=== PATIENT | female | born 1965 | race Hispanic/Latino ===

== ENCOUNTER 2019-08-07 12:04 | Emergency (ER) | payer OTHER ==
[2019-08-07] MEDS ORDERED: HYDROCODONE/APAP 5/325 MG TAB ONE (14:14)
--- NOTE | 2019-08-07 15:28 | RAD REPORT ---
EXAM DESCRIPTION: RAD - Knee Left 3 View - 08/07/2019 2:48 pm CLINICAL HISTORY: Persistent left knee pain following treadmill injury COMPARISON: None. FINDINGS: No fracture, dislocation or periosteal reaction.Trace joint effusion is seen. No joint spa ce narrowing. No soft tissue abnormality. IMPRESSION: Trace amount of joint effusion. No acute bone finding confirmed. Clinical concerns for internal derangement or occult bony injury could be further assessed with MR im aging.
--- NOTE | 2019-08-07 15:28 | RAD REPORT ---
EXAM DESCRIPTION: RAD - Knee Right 3 View - 08/07/2019 2:48 pm CLINICAL HISTORY: fall, knee injury, injury on a treadmill COMPARISON: No comparisons FINDINGS: No fracture, dislocation or periosteal reaction.No joint effusion seen. No joint space nghia rowing. No foreign body or other soft tissue abnormality. IMPRESSION: Negative right knee. Clinical concerns for internal derangement or occult bony injury could be further assessed with MR im aging.
--- NOTE | 2019-08-07 16:24 | ER ---
Nurse's Notes [facility] Name: Lashon Baca Age: 54 yrs Sex: Female : 1965 Arrival Date: 08/07/2019 Time: 12:16 Bed 12 Private MD: Diagnosis: Internal derangement of knee Presentation: 08/07 12:41 Presenting complaint: Patient states: injured left knee on treadmill last week and fell iw on right knee. Transition of care: patient was not received from another setting of care. Onset of symptoms was August 06, 2019. Risk Assessment: Do you want to hurt yourself or someone else? Patient reports no desire to harm self or others. Initial Sepsis Screen: Does the patient meet any 2 criteria? No. Patient's initial sepsis screen is negative. Does the patient have a suspected source of infection? No. Patient's initial sepsis screen is negative. Care prior to arrival: None. 12:41 Method Of Arrival: Wheelchair iw 12:41 Acuity: KENNETH 4 iw Triage Assessment: 16:00 Injury Description:. iw Historical: - Allergies: 12:42 Cymbalta; iw 12:42 Savella; iw - Immunization history:: Adult Immunizations unknown. - Ebola Screening: : Patient negative for fever greater than or equal to 101.5 degrees Fahrenheit, and additional compatible Ebola Virus Disease symptoms Patient denies exposure to infectious person Patient denies travel to an Ebola-affected area in the 21 days before illness onset No symptoms or risks identified at this time. - Social history:: Smoking status: unknown. Screenin:54 Abuse screen: Denies threats or abuse. Denies injuries from another. Nutritional iw screening: No deficits noted. Tuberculosis screening: No symptoms or risk factors identified. Fall Risk Fall in past 12 months (25 points). Assessment: 12:45 General: Appears in no apparent distress. Behavior is calm, cooperative. Pain: iw Complains of pain in left knee Pain currently is 10 out of 10 on a pain scale. Neuro: Level of Consciousness is awake, alert, obeys commands, Oriented to person, place, time, situation, Moves all extremities. Full function. Cardiovascular: Patient's skin is warm and dry. Respiratory: Respiratory effort is even, unlabored. Derm: Skin is intact, is healthy with good turgor. Musculoskeletal: Range of motion: limited in left knee. 14:54 Reassessment: Patient appears in no apparent distress at this time. Patient and/or iw family updated on plan of care and expected duration. Pain level reassessed. Patient is alert, oriented x 3, equal unlabored respirations, skin warm/dry/pink. Vital Signs: 12:42 BP 100 / 69; Pulse 69; Resp 16; Temp 98.2; Pulse Ox 98% on R/A; Weight 88 kg; Height 5 iw ft. 6 in. (167.64 cm); Pain 9/10; 12:42 Body Mass Index 31.31 (88.00 kg, 167.64 cm) iw ED Course: 12:16 Patient arrived in ED. fj1 12:42 Triage completed. iw 12:45 Arm band placed on. iw 13:23 José Calderon PA is PHCP. m 13:23 Jarod Burentt MD is Attending Physician. m 14:50 XRAY Knee LEFT 3 view In Process Unspecified. EDMS 14:50 Knee Right 3 View XRAY In Process Unspecified. EDMS 14:54 Gwendolyn Blankenship, RN is Primary Nurse. iw 14:54 Patient has correct armband on for positive identification. iw 14:54 No provider procedures requiring assistance completed. Patient did not have IV access iw during this emergency room visit. 16:10 Knee immobilizer applied on left knee. ar5 16:24 Santos Terrazas MD is Referral Physician. jm 16:24 Steven Sargent MD is Referral Physician. [facility] Administered Medications: 14:15 Drug: [place] 5 mg-325 mg 1 tabs Route: PO; mg2 Outcome: 16:23 Discharge ordered by . [facility] 16:50 Discharged to home via wheelchair. iw 16:50 Condition: good 16:50 Discharge instructions given to patient, Instructed on discharge instructions, follow up and referral plans. Demonstrated understanding of instructions, follow-up care, medications, Prescriptions given X 2. 16:51 Patient left the ED. Signatures: Dispatcher [employer] EDMS José Calderon PA PA jmm Williams, Irene, RN RN iw Yogi Grissom RN RN mg2 Rain Benz ar5 Case Sibley fj1
--- NOTE | 2019-08-07 16:24 | EDPHYS ---
Physician Documentation [facility] Name: Lashon Baca Age: 54 yrs Sex: Female : 1965 Arrival Date: 08/07/2019 Time: 12:16 Bed 12 Private MD: ED Physician Jarod Burnett HPI: 08/07 13:23 This 54 yrs old Female presents to ER via Wheelchair with complaints of Knee Injury. jmm 13:23 The patient presents with an injury, pain. Onset: The symptoms/episode began/occurred jmm acutely, 1 week(s) ago. Associated signs and symptoms: Pertinent positives:. The patient has experienced a previous episode. This is a 54 year old female that presents to the ED with complaints of left knee pain which occurred after running on a treadmill. Patient states that she felt a pop. Patient also complains of pain to her right knee which has decreased in intensity of the past week. . Historical: - Allergies: 12:42 Cymbalta; iw 12:42 Savella; iw - Immunization history:: Adult Immunizations unknown. - Ebola Screening: : Patient negative for fever greater than or equal to 101.5 degrees Fahrenheit, and additional compatible Ebola Virus Disease symptoms Patient denies exposure to infectious person Patient denies travel to an Ebola-affected area in the 21 days before illness onset No symptoms or risks identified at this time. - Social history:: Smoking status: unknown. ROS: 13:23 Constitutional: Negative for fever, chills, and weight loss, Cardiovascular: Negative jmm for chest pain, palpitations, and edema, Respiratory: Negative for shortness of breath, cough, wheezing, and pleuritic chest pain. 13:23 MS/extremity: Positive for injury or acute deformity, pain. 13:23 All other systems are negative. Exam: 13:23 Constitutional: This is a well developed, well nourished patient who is awake, alert, jmm and in no acute distress. Head/Face: atraumatic. Eyes: EOMI, no conjunctival erythema appreciated ENT: Moist Mucus Membranes Neck: Trachea midline, Supple Chest/axilla: Normal chest wall appearance and motion. Cardiovascular: Regular rate and rhythm. No edema appreciated Respiratory: Normal respirations, no respiratory distress appreciated Abdomen/GI: Non distended, soft Back: Normal ROM Skin: General appearance color normal 13:23 Musculoskeletal/extremity: left lateral knee pain on palpation, compartments are soft, NVI. No pain on ROM of the right knee, compartments are soft, non toxic in appearance. . 13:23 Skin: Appearance: Color: normal in color. 13:23 Neuro: Orientation: is normal, Mentation: is normal, Memory: is normal. 13:23 Psych: Behavior/mood is pleasant, cooperative. Vital Signs: 12:42 BP 100 / 69; Pulse 69; Resp 16; Temp 98.2; Pulse Ox 98% on R/A; Weight 88 kg; Height 5 iw ft. 6 in. (167.64 cm); Pain 9/10; 12:42 Body Mass Index 31.31 (88.00 kg, 167.64 cm) iw MDM: 13:23 Patient medically screened. [facility] 08/07 13:39 Order name: XRAY Knee LEFT 3 view; Complete Time: 15:54 [facility] 08/07 13:49 Order name: Knee Right 3 View XRAY; Complete Time: 15:54 [facility] 08/07 15:55 Order name: Knee Immobilizer; Complete Time: 16:10 [facility] Administered Medications: 14:15 Drug: [place] 5 mg-325 mg 1 tabs Route: PO; mg2 Disposition: 16:52 Co-signature as Attending Physician, Jarod Burnett MD. rn Disposition: 08/07/19 16:23 Discharged to Home. Impression: Internal derangement of knee. - Condition is Stable. - Discharge Instructions: Knee Pain. - Prescriptions for Ibuprofen 800 mg Oral Tablet - take 1 tablet by ORAL route every 8 hours As needed take with food; 30 tablet. Ultracet 37.5- 325 mg Oral Tablet - take 1 tablet by ORAL route every 6 hours - for up to 5 days; do not exceed 8 tablets per day.; 12 tablet. - Medication Reconciliation Form, Thank You Letter, Antibiotic Education, Prescription Opioid Use form. - Follow up: Private Physician; When: 2 - 3 days; Reason: Recheck today's complaints, Continuance of care, Re-evaluation by your physician. Follow up: Santos Terrazas MD; When: 2 - 3 days; Reason: Recheck today's complaints, Continuance of care, Re-evaluation by your physician. Follow up: Steven Sargent MD; When: 2 - 3 days; Reason: Recheck today's complaints, Continuance of care, Re-evaluation by your physician. Signatures: Dispatcher [employer] EDMS José Calderon PA PA [facility] Gwendolyn Blankenship RN RN iw Jarod Burnett MD MD rn Gardose, Michele, RN RN mg2 Corrections: (The following items were deleted from the chart) 16:24 16:23 08/07/2019 16:23 Discharged to Home. Impression: Internal derangement of knee. [facility] Condition is Stable. Forms are Medication Reconciliation Form, Thank You Letter, Antibiotic Education, Prescription Opioid Use. Follow up: Private Physician; When: 2 - 3 days; Reason: Recheck today's complaints, Continuance of care, Re-evaluation by your physician. [facility] 16:51 16:24 08/07/2019 16:23 Discharged to Home. Impression: Internal derangement of knee. iw Condition is Stable. Discharge Instructions: Knee Pain. Prescriptions for Ibuprofen 800 mg Oral Tablet - take 1 tablet by ORAL route every 8 hours As needed take with food; 30 tablet, Ultracet 37.5-325 mg Oral Tablet - take 1 tablet by ORAL route every 6 hours - for up to 5 days; do not exceed 8 tablets per day.; 12 tablet. and Forms are Medication Reconciliation Form, Thank You Letter, Antibiotic Education, Prescription Opioid Use. Follow up: Private Physician; When: 2 - 3 days; Reason: Recheck today's complaints, Continuance of care, Re-evaluation by your physician. Follow up: Dr. Santos Terrazas; When: 2 - 3 days; Reason: Recheck today's complaints, Continuance of care, Re-evaluation by your physician. Follow up: Steven Sargent; When: 2 - 3 days; Reason: Recheck today's complaints, Continuance of care, Re-evaluation by your physician. [facility]
[2019-08-07 23:54] VITALS: BP 100/69; TEMP 98.2; O2SAT 98
== END 2019-08-07 16:51 | disposition home or self-care (01) ==
LOC: ER 12:04
DX: M23.92 Unspecified internal derangement of left knee (principal); Y93.A1 Activity, exercise machines primarily for cardiorespiratory conditioning; Z88.8 Allergy status to other drugs, medicaments and biological substances
CPT/HCPCS: 99284

== ENCOUNTER 2020-10-21 11:44 | Emergency (ER) | payer OTHER ==
--- OUTSIDE RECORDS SUMMARY | 2020-10-21 11:47 | XMS REPORT | Continuity of Care Document ---
:1965 Author Organization [facility] t Address [address] [place] [address] Care Team Providers Name Role Phone Unavailable Unavailable Unavailable Payers Payer Name Policy Type Policy Number Effective Date Expiration Date S ource Problems This patient has no known problems. Allergies, Adverse Reactions, Alerts Allergy Allergy Status Severity Reaction(s) Onset Inactive Treating Comm ents Source Name Type Date Date Clinician lactose DA Active [place] [facility] 01-31 Gile 00:00: [address] duloxeti DA Active [place] [facility] 01-31 Gile 00:00: [address] Medications This patient has no known medications. Procedures This patient has no known procedures. Encounters Start End Encounter Admission Attending Care Care Encounter Source Date/Time Date/Time Type Type Clinicians Facility Department ID 2020-07-01 2020-07-01 Outpatient [facility] [id number] [facility] 06:05:00 06:05:00 Results Test Description Test Time Test Comments Results Result Comments Source IR Thyroid [facility] 2020-05-28 [facility]:04:[facility] 1965 Sex: F *Patient: KIRILL HANSEN Date/Time05/28/2020 13:30 CSTReason for ExamOther (please specify)ReportEXAMIN ATION:Ultrasound-[place] left thyroid lobe inferior pole nodule FNAUltrasound-guided left thyroid lobe midpole nodule FNAINDICATION: Well-circumscribed 3.2 and 1.9 cm left thyroid lobe isoechoic nodulesCOMPARISON: Outside facility thyroid ultrasound.CONSENT: Informed consent was obtained from the patient after discussing the risks and benefits of the procedure to which the patient acknowledged, agreed, and signed.PROCEDURE IN DETAIL:The patient was placed in the supine position. Preliminary sonographic evaluation of the left neck reveals the well-circumscribed left thyroid inferior/mid pole nodules. The overlying area of the left neck base was prepped and draped in the usual sterile fashion. 1% lidocaine was administered for local anesthetic.The 3.2 cm left thyroid lobe inferior pole nodule was first targeted. Multiple attempts with 25-gauge needles were inserted into the lesion under real-time sonographic guidance for purposes of FNA. A total of 2 passes were performed. All aspirates were given to the pathologist for preparation of slides/specimens, deemed adequate by the pathologist. All hardware was then removed.The 1.9 cm left thyroid lobe midpole nodule was then targeted. Multiple attempts with 25-gauge needles were inserted into the lesion under real-time sonographic guidance for purposes of FNA. A total of 3 passes were performed. All aspirates were given to the pathologist for preparation of slides/specimens, deemed adequate by the pathologist. All hardware was then removed.A final sonographic evaluation throughout the entirety of the left neck base soft tissues reveals no abnormalities, without fluid collections. The patient tolerated the procedure well without complications.IMPRES MARY:1. Technically successful ultrasound-guided left thyroid lobe inferior pole nodule FNA.2. Technically successful ultrasound-guided left thyroid lobe midpole pole nodule FNA.3. Follow-up pathology for final results of the delivered specimens. Final Dictated by: MD Moraima, SamerDictated DT/TM: 05/28/2020 2:59 pmSigned by: MD Moraima, SamerSigned (Electronic Signature): 05/28/2020 3:04 pm IR Thyroid Biopsy 2020-05-28 15:04:14 [facility] 1965 Sex: F *Patient: KIRILL HANSEN Date/Time05/28/2020 13:30 CSTReason for Examleft thyroid noduleReportEXAMINAT ION:Ultrasound-guide d left thyroid lobe inferior pole nodule FNAUltrasound-guided left thyroid lobe midpole nodule FNAINDICATION: Well-circumscribed 3.2 and 1.9 cm left thyroid lobe isoechoic nodulesCOMPARISON: Outside facility thyroid ultrasound.CONSENT: Informed consent was obtained from the patient after discussing the risks and benefits of the procedure to which the patient acknowledged, agreed, and signed.PROCEDURE IN DETAIL:The patient was placed in the supine position. Preliminary sonographic evaluation of the left neck reveals the well-circumscribed left thyroid inferior/mid pole nodules. The overlying area of the left neck base was prepped and draped in the usual sterile fashion. 1% lidocaine was administered for local anesthetic.The 3.2 cm left thyroid lobe inferior pole nodule was first targeted. Multiple attempts with 25-gauge needles were inserted into the lesion under real-time sonographic guidance for purposes of FNA. A total of 2 passes were performed. All aspirates were given to the pathologist for preparation of slides/specimens, deemed adequate by the pathologist. All hardware was then removed.The 1.9 cm left thyroid lobe midpole nodule was then targeted. Multiple attempts with 25-gauge needles were inserted into the lesion under real-time sonographic guidance for purposes of FNA. A total of 3 passes were performed. All aspirates were given to the pathologist for preparation of slides/specimens, deemed adequate by the pathologist. All hardware was then removed.A final sonographic evaluation throughout the entirety of the left neck base soft tissues reveals no abnormalities, without fluid collections. The patient tolerated the procedure well without complications.IMPRES MARY:1. Technically successful ultrasound-guided left thyroid lobe inferior pole nodule FNA.2. Technically successful ultrasound-guided left thyroid lobe midpole pole nodule FNA.3. Follow-up pathology for final results of the delivered specimens. Final Dictated by: MD Moraima, SamerDictated DT/TM: 05/28/2020 2:59 pmSigned by: MD Moraima, SamerSigned (Electronic Signature): 05/28/2020 3:04 pm POC Glucose 2020-05-28 12:43:26 Test Item Value Reference Range Interpretation Comme nts Glucose POC (test code = 107 mg/dL 74-106 H POC Glucose used on critically ill Glucose POC) patients is con sidered "off-label use" and has no t been cleared or approved by the FDA. Alternative testing methods should be considered if t he patient is critically ill. POC [id number] 12:21:41 Test Item Value Reference Range Interpretation Comments Glucose POC (test 105 mg/dL 74-106 POC Glucos e used on code = Glucose POC) critical ly ill patients is considered " off-label use" and has no t been cleared or appr jeannette by the FDA. Altern ative testing methods should be considered i f the patient is crit ically ill. Prothrombin Time and [id number] 11:11:55 Test Item Value Reference Range Interpretation Comments Prothrombin Time (test code = 10.8 seconds 9.0-12.0 Prothrombin Time) INR (test code = INR) 1.0 ratio 0.9-1.2 Partial Thromboplastin [id number] 11:11:55 Test Item Value Reference Range Interpretation Comments Partial Thromboplastin Time 27.8 seconds 24.0-35.0 (test code = Partial Thromboplastin Time) IG [id number] 10:58:55 Test Item Value Reference Range Interpretation Comments IG (test code = IG) 0 % 0-5 IG Abs (test code = IG Abs) 0 x10 N Complete Blood Count with [id number] 10:58:54 Test Item Value Reference Range Interpretation Comments WBC (test code = WBC) 4.5 x10 4.8-10.8 L RBC (test code = RBC) 4.03 x10 4.20-5.50 L Hgb (test code = Hgb) 12.8 g/dL 12.0-16.0 Hct (test code = Hct) 39.1 % 35.0-47.0 MCV (test code = MCV) 97.0 fL 80.0-95.0 H MCHC (test code = MCHC) 32.7 g/dL 31.0-36.0 RDW (test code = RDW) 12.5 % 11.5-14.5 N MCH (test code = MCH) 31.8 pg 26.0-32.0 Platelets (test code = 228 x10 140-440 Platelets) MPV (test code = MPV) 11.0 fL 7.5-11.2 Slide Review (test code Auto N Resu lt created by = Slide Review) GL_SET_SLIDE _REVIEW_A UTO Automated [id number] 10:58:54 Test Item Value Reference Range Interpretation Comments Neutro Auto (test code = Neutro Auto) 60.9 % N Lymph Auto (test code = Lymph Auto) 27.7 % N Bee Auto (test code = Bee Auto) 8.5 % N Eos, Auto (test code = Eos, Auto) 1.8 % N Basophil Auto (test code = Basophil 0.9 % N Auto) Neutro Absolute (test code = Neutro 2.7 x10 2.7-7.3 Absolute) Lymph Absolute (test code = Lymph 1.2 x10 0.8-3.5 Absolute) Bee Absolute (test code = Bee 0.4 x10 0.3-0.9 Absolute) Eos Absolute (test code = Eos 0.1 x10 0.0-0.3 Absolute) Baso Absolute (test code = Baso 0.0 x10 0.0-0.1 Absolute)
[2020-10-21 15:56] LABS: Absolute Lymphocytes (CBC) 1.4 K/uL (0.7-4.9); Basophils % 0.8 % (0-1.3); Hematocrit 39.1 % (36.0-45.0); Lymphocytes % 24.3 % (15.3-44.8); MPV 9.4 fL (7.6-11.3); RBC Red Blood Cell Count 4.16 M/uL (3.86-4.86)
[2020-10-21 16:08] LABS: BUN Blood Urea Nitrogen 15 mg/dL (7-18); Bicarbonate 29 mmol/L (21-32); Glucose Level 98 mg/dL (74-106); Potassium 3.9 mmol/L (3.5-5.1); Sodium Level 139 mmol/L (136-145)
[2020-10-21] MEDS ORDERED: DIPHENHYDRAMINE 50 MG/ML VIAL ONE (16:15)
[2020-10-21] MEDS ORDERED: METHYLPREDNISOLONE 125 MG INJ ONE (16:15)
--- NOTE | 2020-10-21 17:26 | RAD REPORT ---
EXAM DESCRIPTION: CT - Soft Tissue Neck W/Contr - 10/21/2020 5:11 pm CLINICAL HISTORY: difficulty swallowing COMPARISON: No comparisons TECHNIQUE: During dynamic enhancement using 100 milliliters nonionic IV contrast, axial 5 millimeter thick images of the neck were obtained. All CT scans are performed using dose optimization technique as appropriate and may include automated exposure control or mA/KV adjustment according to patient size. FINDINGS: Intracranial portion of the exam is unremarkable. No globe or orbital content abnormality. Mastoid air cells and paranasal sinuses are clear. No pharyngeal mucosal mass or asymmetry. No tonsi l or tongue base abnormality seen. Parapharyngeal fat is normal. Epiglottis, soft palate, valleculae and piriform sinuses without abnormality. No vocal cord or laryngeal abnormality seen. No abnormal lymphadenopathy identified. The parotid and submandibular glands show no suspicious findings. No significant right thyroid findin g. Left lobe has been resected. No vascular abnormality seen. No acute bone finding. IMPRESSION: Contrast enhanced CT soft tissue neck examination shows no significant or suspicious fin ding. The provided history indicates rheumatoid arthritis which can result in esophageal motility and swall owing abnormalities. Follow-up outpatient modified barium swallow may be helpful.
--- NOTE | 2020-10-21 17:39 | ER ---
Nurse's Notes [facility] Name: Lashon Baca Age: 55 yrs Sex: Female : 1965 Arrival Date: 10/21/2020 Time: 11:45 Bed 6 Private MD: Diagnosis: Unspecified allergic reaction Presentation: 10/21 12:21 Chief complaint: Patient states: Had my 1st Moderna Covid vaccine on 10/08/2020, I think ca1 I am having an allergic reaction to it. I have excessive itching all over. The rash and itching started a week after the vaccine.I am having trouble swallowing even liquids, feels like it gets stuck in my throat. I had Thyroid surgery in June 2020 also so I didn't really pay attention when the swallowing problems started last week. Coronavirus screen: Client denies travel out of the [place] in the last 14 days. At this time, the client does not indicate any symptoms associated with coronavirus-19. Ebola Screen: Patient negative for fever greater than or equal to 101.5 degrees Fahrenheit, and additional compatible Ebola Virus Disease symptoms Patient denies exposure to infectious person. Patient denies travel to an Ebola-affected area in the 21 days before illness onset. No symptoms or risks identified at this time. Initial Sepsis Screen: Does the patient meet any 2 criteria? No. Patient's initial sepsis screen is negative. Does the patient have a suspected source of infection? No. Patient's initial sepsis screen is negative. Risk Assessment: Do you want to hurt yourself or someone else? Patient reports no desire to harm self or others. Onset of symptoms was October 21, 2020. 12:21 Method Of Arrival: Ambulatory ca1 12:21 Acuity: KENNETH 3 ca1 Historical: - Allergies: 12:27 Cymbalta; ca1 12:27 Savella; ca1 - PMHx: 12:27 Rheumatoid Arthritis; Fibromyalgia; Diabetes - NIDDM; Bipolar disorder; ca1 - PSHx: 12:27 Thyroidectomy; ; Hysterectomy; Cholecystectomy; ca1 - Immunization history:: Flu vaccine is not up to date. - Social history:: Smoking status: Patient/guardian denies using tobacco, the patient reports quitting approximately 30 years ago. Screenin:30 Abuse screen: Denies threats or abuse. Denies injuries from another. Nutritional ss screening: No deficits noted. Tuberculosis screening: Never had TB. Fall Risk None identified. Assessment: 15:30 General: Appears in no apparent distress. comfortable, Behavior is calm, cooperative, ss Denies fever, feeling ill, fatigue, chills. Pain: Denies pain. Neuro: Level of Consciousness is awake, alert, obeys commands, Oriented to person, place, time, situation. Cardiovascular: Pulses are palpable in right radial artery and left radial artery. Respiratory: Airway is patent Trachea midline Respiratory effort is even, unlabored, Respiratory pattern is regular, symmetrical, Breath sounds are clear bilaterally. Denies cough, shortness of breath. GI: Patient currently denies diarrhea, nausea, vomiting. : No signs and/or symptoms were reported regarding the genitourinary system. EENT: Nares are clear Oral mucosa is moist. Throat is clear. Derm: Skin is intact, is healthy with good turgor, Skin is dry, Skin is pink, warm \\T\\ dry. normal. Derm: Reports itching, "all over that began 1 week after COVID shot". Musculoskeletal: Circulation, motion, and sensation intact. Range of motion: intact in all extremities, Swelling absent. 16:56 Reassessment: Patient appears in no apparent distress at this time. Patient and/or ss family updated on plan of care and expected duration. Pain level reassessed. Patient is alert, oriented x 3, equal unlabored respirations, skin warm/dry/pink. Pt reports that her itching has greatly improved. Awaiting on patient to go to CT scan Patient states feeling better. Patient states symptoms have improved. 17:17 Reassessment: Pt is back from CT at this time. ss Vital Signs: 12:21 BP 131 / 95; Pulse 78; Resp 18 S; Temp 98.7(TE); Pulse Ox 99% on R/A; Weight 89.36 kg ca1 (R); Height 5 ft. 5 in. (165.10 cm) (R); Pain 0/10; 18:08 BP 127 / 81; Pulse 68; Resp 16; Pulse Ox 100% on R/A; ss 12:21 Body Mass Index 32.78 (89.36 kg, 165.10 cm) ca1 ED Course: 11:45 Patient arrived in ED. am2 12:26 Triage completed. ca1 12:27 Arm band placed on right wrist. ca1 15:24 Grayson Mosher PA is PHCP. jr8 15:24 Jarod Burnett MD is Attending Physician. jr8 15:28 Mya Shultz, ETELVINA is Primary Nurse. ss 15:30 Patient has correct armband on for positive identification. Bed in low position. Call ss light in reach. Side rails up X 1. 15:50 Basic Metabolic Panel Sent. em1 15:50 CBC with Diff Sent. em1 15:50 Initial lab(s) drawn, by me, sent to lab. Inserted saline lock: 20 gauge in right em1 antecubital area, using aseptic technique. Blood collected. 17:11 CT Soft Tissue Neck W/contr In Process Unspecified. EDMS 18:07 No provider procedures requiring assistance completed. IV discontinued, intact, ss bleeding controlled, No redness/swelling at site. Pressure dressing applied. Administered Medications: 15:50 Drug: Benadryl (diphenhydrAMINE) 25 mg Route: IVP; Site: right antecubital; ss 16:56 Follow up: Response: No adverse reaction; Marked relief of symptoms; Marked relief of ss symptoms, itching decreased 15:52 Drug: SOLU-Medrol 125 mg Route: IVP; Site: right antecubital; ss 16:56 Follow up: Response: No adverse reaction; Marked relief of symptoms; Marked relief of ss symptoms, itching decreased Outcome: 17:39 Discharge ordered by . jr8 18:07 Discharged to home ambulatory. ss 18:07 Condition: good 18:07 Discharge instructions given to patient, Instructed on discharge instructions, follow up and referral plans. medication usage, Demonstrated understanding of instructions, follow-up care, medications, Prescriptions given X 1. 18:11 Patient left the ED. ss Signatures: Dispatcher [employer] EDMS Beck Ramon em1 Mya Shultz, ETELVINA RN ss Grayson Mosher PA PA jr8 Quyen Perez 2 Sarah Buitrago RN RN ca1
--- NOTE | 2020-10-21 17:39 | EDPHYS ---
Physician Documentation [facility] Name: Lashon Baca Age: 55 yrs Sex: Female : 1965 Arrival Date: 10/21/2020 Time: 11:45 Bed 6 Private MD: ED Physician Jarod Burnett HPI: 10/21 16:11 This 55 yrs old Female presents to ER via Ambulatory with complaints of jr8 Allergic Reaction. 16:11 Onset: The symptoms/episode began/occurred gradually, 2 week(s) ago. Associated signs jr8 and symptoms: Pertinent positives: itching and difficulty swallowing . Possible causes: The patient has no known obvious cause for the symptoms. Severity of symptoms: At their worst the symptoms were mild in the emergency department the symptoms are unchanged. The patient has not experienced similar symptoms in the past. The patient has not recently seen a physician. Patient stated that she was vaccinated 3 weeks ago for COVID. A week after that stated that she started to have itching and felt herself having trouble swallowing. Historical: - Allergies: 12:27 Cymbalta; ca1 12:27 Savella; ca1 - PMHx: 12:27 Rheumatoid Arthritis; Fibromyalgia; Diabetes - NIDDM; Bipolar disorder; ca1 - PSHx: 12:27 Thyroidectomy; ; Hysterectomy; Cholecystectomy; ca1 - Immunization history:: Flu vaccine is not up to date. - Social history:: Smoking status: Patient/guardian denies using tobacco, the patient reports quitting approximately 30 years ago. ROS: 16:11 Eyes: Negative for injury, pain, redness, and discharge, ENT: Negative for injury, jr8 pain, and discharge. Positive for dysphagia Neck: Negative for injury, pain, and swelling, Cardiovascular: Negative for chest pain, palpitations, and edema, Respiratory: Negative for shortness of breath, cough, wheezing, and pleuritic chest pain, Abdomen/GI: Negative for abdominal pain, nausea, vomiting, diarrhea, and constipation, Back: Negative for injury and pain, MS/Extremity: Negative for injury and deformity, Neuro: Negative for headache, weakness, numbness, tingling, and seizure. 16:11 Skin: Positive for rash. Exam: 16:11 Eyes: Pupils equal round and reactive to light, extra-ocular motions intact. Lids and jr8 lashes normal. Conjunctiva and sclera are non-icteric and not injected. Cornea within normal limits. Periorbital areas with no swelling, redness, or edema. ENT: Nares patent. No nasal discharge, no septal abnormalities noted. Tympanic membranes are normal and external auditory canals are clear. Oropharynx with no redness, swelling, or masses, exudates, or evidence of obstruction, uvula midline. Mucous membranes moist. Neck: Trachea midline, no thyromegaly or masses palpated, and no cervical lymphadenopathy. Supple, full range of motion without nuchal rigidity, or vertebral point tenderness. No Meningismus. previous thyroidectomy scar noted Cardiovascular: Regular rate and rhythm with a normal S1 and S2. No gallops, murmurs, or rubs. Normal PMI, no JVD. No pulse deficits. Respiratory: Lungs have equal breath sounds bilaterally, clear to auscultation and percussion. No rales, rhonchi or wheezes noted. No increased work of breathing, no retractions or nasal flaring. Abdomen/GI: Soft, non-tender, with normal bowel sounds. No distension or tympany. No guarding or rebound. No evidence of tenderness throughout. Back: No spinal tenderness. No costovertebral tenderness. Full range of motion. Skin: Warm, dry with normal turgor. Normal color with no rashes, no lesions, and no evidence of cellulitis. Excoriated sanchez noted on arms MS/ Extremity: Pulses equal, no cyanosis. Neurovascular intact. Full, normal range of motion. Neuro: Awake and alert, GCS 15, oriented to person, place, time, and situation. Cranial nerves II-XII grossly intact. Motor strength 5/5 in all extremities. Sensory grossly intact. Cerebellar exam normal. Normal gait. Vital Signs: 12:21 BP 131 / 95; Pulse 78; Resp 18 S; Temp 98.7(TE); Pulse Ox 99% on R/A; Weight 89.36 kg ca1 (R); Height 5 ft. 5 in. (165.10 cm) (R); Pain 0/10; 18:08 BP 127 / 81; Pulse 68; Resp 16; Pulse Ox 100% on R/A; ss 12:21 Body Mass Index 32.78 (89.36 kg, 165.10 cm) ca1 MDM: 15:25 Patient medically screened. [facility] 17:34 Data reviewed: vital signs, nurses notes, lab test result(s), radiologic studies, CT jr8 scan. Data interpreted: Pulse oximetry: on room air is 99 %. Interpretation: normal. Counseling: I had a detailed discussion with the patient and/or guardian regarding: the historical points, exam findings, and any diagnostic results supporting the discharge/admit diagnosis, lab results, radiology results, the need for outpatient follow up, a family practitioner, to return to the emergency department if symptoms worsen or persist or if there are any questions or concerns that arise at home. Response to treatment: the patient's symptoms have mildly improved after treatment. 10/21 15:37 Order name: CBC with Diff; Complete Time: 16:00 jr8 10/21 15:37 Order name: Basic Metabolic Panel; Complete Time: 16:09 jr8 10/21 15:37 Order name: CT Soft Tissue Neck W/contr; Complete Time: 17:34 jr8 10/21 15:37 Order name: IV; Complete Time: 15:50 jr8 Administered Medications: 15:50 Drug: Benadryl (diphenhydrAMINE) 25 mg Route: IVP; Site: right antecubital; ss 16:56 Follow up: Response: No adverse reaction; Marked relief of symptoms; Marked relief of ss symptoms, itching decreased 15:52 Drug: SOLU-Medrol 125 mg Route: IVP; Site: right antecubital; ss 16:56 Follow up: Response: No adverse reaction; Marked relief of symptoms; Marked relief of ss symptoms, itching decreased Disposition: 18:28 Co-signature as Attending Physician, Jarod Burnett MD. rn Disposition: 10/21/20 17:39 Discharged to Home. Impression: Unspecified allergic reaction. - Condition is Stable. - Discharge Instructions: Anaphylactic Reaction, Adult. - Prescriptions for Prednisone 20 mg Oral Tablet - take 1 tablet by ORAL route once daily for 5 days; 5 tablet. - Medication Reconciliation Form, Thank You Letter, Antibiotic Education, Prescription Opioid Use form. - Follow up: Private Physician; When: 2 - 3 days; Reason: Recheck today's complaints, Continuance of care, Re-evaluation by your physician. - Problem is new. - Symptoms have improved. Signatures: Dispatcher [employer] EDMS Jarod Burnett MD MD rn Smirch, Shelby, RN RN Grayson Wheat PA PA jr8 Sarah Buitrago RN RN ca1 Corrections: (The following items were deleted from the chart) 18:11 17:39 10/21/2020 17:39 Discharged to Home. Impression: Unspecified allergic reaction. ss Condition is Stable. Forms are Medication Reconciliation Form, Thank You Letter, Antibiotic Education, Prescription Opioid Use. Follow up: Private Physician; When: 2 - 3 days; Reason: Recheck today's complaints, Continuance of care, Re-evaluation by your physician. Problem is new. Symptoms have improved. jr8
[2020-10-21 22:58] VITALS: BP 131/95; TEMP 98.7; O2SAT 99
== END 2020-10-21 18:11 | disposition home or self-care (01) ==
LOC: ER 11:44
DX: R21 Rash and other nonspecific skin eruption (principal); Z88.8 Allergy status to other drugs, medicaments and biological substances
CPT/HCPCS: 85025; 80048; 36415; 70491; Q9967; J1200; J2930; 96374; 96375; 99284

== ENCOUNTER 2021-03-15 12:54 | Emergency (ER) | payer OTHER ==
--- OUTSIDE RECORDS SUMMARY | 2021-03-15 12:57 | XMS REPORT | Continuity of Care Document ---
:1965 Author Organization [facility] t Address [address] [place] [address] Care Team Providers Name Role Phone Saúl SNOW, Toñito Dickson Primary Care Physician [phone] Adina SNOW, T Attending Clinician Payers Payer Name Policy Type Policy Number Effective Date Expiration Date S benjie [place] [id number] [address] [facility] - 00:00:00 [place] [facility] MEDICAREWELLMED/ [facility] DUAL COMP HMO D [id number]/2020-PresentMedi care Adv HMO Problems Condition Condition Condition Status Onset Resolution Last Treating Co mments Source Name Details Category Date Date Treatment Clinician Date No known No known Disease Unive rs active active ity of problems problems [facility] Allergies, Adverse Reactions, Alerts Allergy Allergy Status Severity Reaction(s) Onset Inactive Treating Comm ents Source Name Type Date Date Clinician Duloxeti Drug Active Rash Univers ne Hcl Allergy 7-20 ity of 00:00: [address] Edoxaban Drug Active Rash Univers Tosylate Allergy 7-20 ity of 00:00: [address] Milnacip Drug Active Other - See Uni vers ran Hcl Allergy comments 02-02 ity of 00:00: [facility] lactose DA Active [facility] 01-31 [place] 00:00: [address] duloxeti DA Active [place] [facility] ne 01-[facility] [place] 00:00: [address] Social History Social Habit Start Date Stop Date Quantity Comments Source Exposure to Not sure [facility] SARS-CoV-2 (event) [facility] Cigarettes smoked 2021-02-02 2021-02-02 Univers ity of current (pack per 00:00:00 00:00:00 [facility] ) - Reported Branch Cigarette 2021-02-02 2021-02-02 University of pack-years 00:00:00 00:00:00 [facility] Tobacco use and 2021-02-02 2021-02-02 Never used Universit y of exposure 00:00:00 00:00:00 [facility] Alcohol intake 2021-02-02 2021-02-02 Current drinker Unive rsity of 00:00:00 00:00:00 of alcohol [facility] (finding) [place] Alcohol Comment 2021-02-02 2021-02-02 socially Universit y of 00:00:00 00:00:00 [facility] History of tobacco 1993-02-02 Cigarette Smoker University of use 00:00:00 [facility] Sex Assigned At [birth year] Universit y of 00:00:00 00:00:00 [facility] Smoking Status Start Date Stop Date Source Former smoker 2021-02-02 00:00:00 2021-02-02 00:00:00 Universi ty of [facility] Medications Ordered Filled Start Stop Current Ordering Indication Dosage Frequency Signature Comments Components Source Medication Medication Date Date Medication? Clinician (SIG) Name Name simvastatin Yes [id number] 40mg Take 1 Univers 40 mg 8-24 tablet by ity of tablet 00:00: mouth at [place] 00 bedtime. Medical Branch metformin Yes [id number] TAKE 1 U nivers ER 500 mg 8-03 TABLET BY ity o f 24 hr 00:00: MOUTH [place] tablet 00 EVERY DAY Medical WITH THE Branch EVENING MEAL hydrOXYzine Yes 25mg Take 25 mg Univers 25 mg 7-20 by mouth ity of tablet 14:33: every 8 [place] 41 (eight) Medical hours as Branch needed for Anxiety. lamoTRIgine Yes 200mg Take 200 U nivers 200 mg 5-25 mg by ity of tablet 00:00: mouth at [place] 00 bedtime. Medical Branch QUEtiapine Yes 100mg Take 100 Un david 100 mg 5-25 mg by ity of tablet 00:00: mouth at [place] 00 bedtime. Medical Branch SERTraline Yes 50mg Take 50 mg U nivers 50 mg 5-25 by mouth ity of tablet 00:00: at [place] 00 bedtime. Medical Branch oxyCODONE-a Yes TAKE 1 Univ ers cetaminophe 5-19 TABLET BY ity of n 5-325 mg 00:00: MOUTH [place] per tablet 00 EVERY 4 Medica l HOURS Branch NEEDED FOR PAIN Vital Signs Vital Name Observation Time Observation Value Comments Source Systolic blood 2021-03-10 19:42:00 129 mm[Hg] Univer sity of pressure [facility] Diastolic blood 2021-03-10 19:42:00 81 mm[Hg] [facility] [place] Heart rate 2021-03-10 19:42:00 79 /min [facility] Body temperature 2021-03-10 19:42:00 36.17 Ashlee [facility] Respiratory rate 2021-03-10 19:42:00 18 /min [facility] Body height 2021-03-10 19:42:00 165.1 cm [facility] Body weight 2021-03-10 19:42:00 89.177 kg [facility] BMI 2021-03-10 19:42:00 32.72 kg/m2 [facility] Oxygen saturation in 2021-03-10 19:42:00 98 /min [facility] Arterial blood by [facility] Pulse oximetry Branch Procedures This patient has no known procedures. Encounters Start End Encounter Admission Attending Care Care Encounter Source Date/Time Date/Time Type Type Clinicians Facility Department ID 2021-03-10 2021-03-10 Office MALATHI Holden [id number] [facility] 14:29:05 14:49:05 Visit Leela Monique [id number] [facility] taylor Leija [id number] Alissa Cardoso [id number] [place] [id number] [facility] 2020-07-01 2020-07-01 Outpatient [facility] [id number] [facility] 06:05:00 06:05:00 Results Test Description Test Time Test Comments Results Result Comments Source IR Thyroid Biopsy 2020-05-28 15:04:14 [facility] 1965 Sex: F [...] 3:04 pm IR Thyroid Biopsy 2020-05-28 15:04:14 [facility] 1965 Sex: F [...] t he patient is critically ill. POC [id number] 12:21:41 Test Item Value Reference Range Interpretation Comments Glucose POC (test 105 mg/dL 74-106 POC Glucos e used on code = Glucose POC) critical ly ill patients is considered " off-label use" and has no t been cleared or appr jeannette by the FDA. Altern ative testing methods should be considered i f the patient is crit ically ill. Prothrombin Time and [id number] 11:11:55 Test Item Value Reference Range Interpretation Comments Prothrombin Time (test code = 10.8 seconds 9.0-12.0 Prothrombin Time) INR (test code = INR) 1.0 ratio 0.9-1.2 Partial Thromboplastin [id number] 11:11:55 Test Item Value Reference Range Interpretation Comments Partial Thromboplastin Time 27.8 seconds 24.0-35.0 (test code = Partial Thromboplastin Time) IG [id number] 10:58:55 Test Item Value Reference Range Interpretation Comments IG (test code = IG) 0 % 0-5 IG Abs (test code = IG Abs) 0 x10 N Complete Blood Count with [id number] 10:58:54 Test Item Value Reference Range Interpretation [...] = Slide Review) GL_SET_SLIDE _REVIEW_A UTO Automated [id number] 10:58:54 Test Item Value Reference Range Interpretation Comments Neutro Auto (test code = Neutro Auto) 60.9 % N Lymph Auto (test code = Lymph Auto) 27.7 % N [place] Auto (test code = [place] Auto) 8.5 % N Eos, Auto (test code = Eos, Auto) 1.8 % N Basophil Auto (test code = Basophil 0.9 % N Auto) Neutro Absolute (test code = Neutro 2.7 x10 2.7-7.3 Absolute) Lymph Absolute (test code = Lymph 1.2 x10 0.8-3.5 Absolute) [place] Absolute (test code = [place] 0.4 x10 0.3-0.9 Absolute) Eos Absolute (test code = Eos 0.1 x10 0.0-0.3 Absolute) Baso Absolute (test code = Baso 0.0 x10 0.0-0.1 Absolute)
--- NOTE | 2021-03-15 13:24 | EDPHYS ---
Physician Documentation [facility] Name: Lashon Baca Age: 56 yrs Sex: Female : 1965 Arrival Date: 03/15/2021 Time: 12:55 Bed Waiting Private MD: ED Physician Nii Bronson HPI: 03/15 14:26 This 56 yrs old Female presents to ER via Ambulatory with complaints of Bee kb Sting. 14:26 The patient was bitten on the right tricep, by a wasp, in an unprovoked manner, kb outdoors. Onset: The symptoms/episode began/occurred 4 day(s) ago. Animal information: wasp. Secondary to the bite the patient reports erythema, pain, swelling, warmth. Associated signs and symptoms: Pertinent positives: erythema at site, swelling at site. Severity of symptoms: At their worst the symptoms were mild, in the emergency department the symptoms are unchanged. The patient has not experienced similar symptoms in the past. The patient has not recently seen a physician. Historical: - Allergies: 13:22 Cymbalta; hb 13:22 Savella; hb - PMHx: 13:22 Diabetes - NIDDM; Bipolar disorder; Fibromyalgia; Rheumatoid Arthritis; hb - Immunization history:: Adult Immunizations up to date. - Social history:: Smoking status: Patient denies any tobacco usage or history of. ROS: 14:25 Constitutional: Negative for fever, chills, and weight loss. kb 14:25 Skin: Positive for erythema, swelling, of the right tricep. 14:25 All other systems are negative. Exam: 14:25 Constitutional: This is a well developed, well nourished patient who is awake, alert, kb and in no acute distress. Head/Face: Normocephalic, atraumatic. ENT: Moist Mucous membranes Respiratory: Respirations even and unlabored. No increased work of breathing, no retractions or nasal flaring. MS/ Extremity: Pulses equal, no cyanosis. Neurovascular intact. Full, normal range of motion. Neuro: Awake and alert, GCS 15, oriented to person, place, time, and situation. Moves all extremities. Normal gait. Psych: Awake, alert, with orientation to person, place and time. Behavior, mood, and affect are within normal limits. 14:25 Skin: cellulitis, that is mild, on the right tricep. Vital Signs: 13:21 BP 136 / 85; Pulse 89; Resp 16; Temp 97.4; Pulse Ox 96% ; Pain 7/10; hb MDM: 13:22 Data reviewed: vital signs, nurses notes. Data interpreted: Pulse oximetry: on room air kb is 96 %. Interpretation: normal. Counseling: I had a detailed discussion with the patient and/or guardian regarding: the historical points, exam findings, and any diagnostic results supporting the discharge/admit diagnosis, the need for outpatient follow up, a family practitioner, to return to the emergency department if symptoms worsen or persist or if there are any questions or concerns that arise at home. 13:23 Patient medically screened. kb Administered Medications: No medications were administered Disposition: 03/16 07:46 Co-signature as Attending Physician, Nii Bronson MD I agree with the assessment and gemma plan of care. Disposition Summary: 03/15/21 13:23 Discharge Ordered Location: Home kb Condition: Stable kb Diagnosis - Local infection of the skin and subcutaneous tissue, unspecified kb Followup: kb - With: Emergency Department - When: As needed - Reason: Worsening of condition Followup: kb - With: Private Physician - When: 2 - 3 days - Reason: Recheck today's complaints, Continuance of care, Re-evaluation by your physician Discharge Instructions: - Discharge Summary Sheet kb - Insect Bite, Adult, [id number] kb - Cellulitis, Adult, [id number] kb Forms: - Medication Reconciliation Form kb - Thank You Letter kb - Antibiotic Education kb - Prescription Opioid Use kb Prescriptions: - Bactrim DS 800-160 mg Oral Tablet - take 1 tablet by ORAL route every 12 hours for 10 days; 20 tablet; Refills: 0, kb Product Selection Permitted Signatures: Rosalinda Jiménez, ANUMC MABLE-Nii Mosquera MD MD cha Baxter, Heather, RN RN hb
--- NOTE | 2021-03-15 13:24 | ER ---
Nurse's Notes [facility] Name: Lashon Baca Age: 56 yrs Sex: Female : 1965 Arrival Date: 03/15/2021 Time: 12:55 Bed Waiting Private MD: Diagnosis: Local infection of the skin and subcutaneous tissue, unspecified Presentation: 03/15 13:21 Chief complaint: Stung by unknown insect on right upper arm 3 days ago, c/o pain 7/10. hb Coronavirus screen: At this time, the client does not indicate any symptoms associated with coronavirus-19. Ebola Screen: No symptoms or risks identified at this time. Risk Assessment: Do you want to hurt yourself or someone else? Patient reports no desire to harm self or others. Onset of symptoms was March 12, 2021. 13:21 Method Of Arrival: Ambulatory hb 13:21 Acuity: KENNETH 4 hb Historical: - Allergies: 13:22 Cymbalta; hb 13:22 Savella; hb - PMHx: 13:22 Diabetes - NIDDM; Bipolar disorder; Fibromyalgia; Rheumatoid Arthritis; hb - Immunization history:: Adult Immunizations up to date. - Social history:: Smoking status: Patient denies any tobacco usage or history of. Screenin:23 Abuse screen: Denies threats or abuse. Denies injuries from another. Nutritional hb screening: No deficits noted. Tuberculosis screening: No symptoms or risk factors identified. Fall Risk None identified. Assessment: 13:23 General: Appears in no apparent distress. Behavior is calm, cooperative. Pain: Pain hb currently is 7 out of 10 on a pain scale. Neuro: Level of Consciousness is awake, alert, obeys commands, Oriented to person, place, time, situation. Cardiovascular: Patient's skin is warm and dry. Respiratory: Respiratory effort is even, unlabored, Respiratory pattern is regular, agonal. GI: No signs and/or symptoms were reported involving the gastrointestinal system. : No signs and/or symptoms were reported regarding the genitourinary system. EENT: No signs and/or symptoms were reported regarding the EENT system. Derm: redness and mild swelling noted to right upper arm. Musculoskeletal: No signs and/or symptoms reported regarding the musculoskeletal system. Vital Signs: 13:21 BP 136 / 85; Pulse 89; Resp 16; Temp 97.4; Pulse Ox 96% ; Pain 7/10; hb ED Course: 12:55 Patient arrived in ED. am2 13:22 Triage completed. hb 13:22 Rosalinda Jiménez FNP-C [facility]. kb 13:22 Nii Bronson MD is Attending Physician. kb 13:22 Arm band placed on. hb 13:23 Patient has correct armband on for positive identification. hb 13:23 No provider procedures requiring assistance completed. Patient did not have IV access hb during this emergency room visit. Administered Medications: No medications were administered Outcome: 13:23 Discharge ordered by . kb 15:32 Patient left the ED. kb Signatures: Rosalinda Jiménez FNP-C [employer]ING WINDER-Luisb Kaylin Bergman RN RN Quyen Lynn am2
[2021-03-15 15:39] VITALS: BP 136/85; TEMP 97.4; O2SAT 96
== END 2021-03-15 15:32 | disposition home or self-care (01) ==
LOC: ER 12:54
DX: L03.113 Cellulitis of right upper limb (principal); Z88.8 Allergy status to other drugs, medicaments and biological substances
CPT/HCPCS: 99281

== ENCOUNTER 2021-03-17 13:09 | Emergency (ER) | payer OTHER ==
--- OUTSIDE RECORDS SUMMARY | 2021-03-17 13:12 | XMS REPORT | Continuity of Care Document ---
:1965 Author Organization [facility] t Address [address] [place] [address] Care Team Providers Name Role Phone Saúl SNOW, Toñito Dickson Primary Care Physician Adina SNOW, T Attending Clinician Gavin SNOW Attending Clinician Payers Payer Name Policy Type Policy Number Effective Date Expiration Date S [place] [id number] 2020 [facility] - 00:00:00 [facility] DUAL COMP HMO D [id number]/2020-PresentMedi care Adv HMO Problems Condition Condition Condition Status Onset Resolution Last Treating Co mments Source Name Details Category Date Date Treatment Clinician Date No known No known Disease Unive rs active active ity of problems problems [facility] Allergies, Adverse Reactions, Alerts Allergy Allergy Status Severity Reaction(s) Onset Inactive Treating Comm ents Source Name Type Date Date Clinician Duloxeti Drug Active Rash 2020-0 Univers ne Hcl Allergy 7-20 ity of 00:00: [address] Edoxaban Drug Active Rash 2020-0 Univers Tosylate Allergy 7-20 ity of 00:00: [place] 00 [facility] Milnacip Drug Active Other - See Uni vers ran Hcl Allergy comments 02-02 ity of 00:00: [facility] lactose DA Active U [facility] 01-31 [facility] 00:00: [address] duloxeti DA Active [place] [facility] ne 01-31 [facility] 00:00: [address] Social History Social Habit Start Date Stop Date Quantity Comments Source Exposure to Not sure [facility] SARS-CoV-2 (event) [facility] Cigarettes smoked 2021-02-02 2021-02-02 Univers ity of current (pack per 00:00:00 00:00:00 [facility] ) - Reported Branch Cigarette 2021-02-02 2021-02-02 University of pack-years 00:00:00 00:00:00 [facility] Tobacco use and 2021-02-02 2021-02-02 Never used Universit y of exposure 00:00:00 00:00:00 [facility] Alcohol intake 2021-02-02 2021-02-02 Current drinker Unive rsity of 00:00:00 00:00:00 of alcohol [facility] (finding) [place] Alcohol Comment 2021-02-02 2021-02-02 socially Universit y of 00:00:00 00:00:00 [facility] History of tobacco 1993-02-02 Cigarette Smoker University of use 00:00:00 [facility] Sex Ass[birth year] At [birth year] Universit y of 00:00:00 00:00:00 [facility] Smoking Status Start Date Stop Date Source Former smoker 2021-02-02 00:00:00 2021-02-02 00:00:00 Universi ty of [facility] Medications Ordered Filled Start Stop Current Ordering Indication Dosage Frequency Signature Comments Components Source Medication Medication Date Date Medication? Clinician (SIG) Name Name simvastatin Yes [id number] 40mg Take 1 Univers 40 mg 8-24 tablet by ity of tablet 00:00: mouth at [place] 00 bedtime. Medical Branch metformin Yes [id number] TAKE 1 U nivers ER 500 mg 8-03 TABLET BY ity o f 24 hr 00:00: MOUTH [place] tablet 00 EVERY DAY Medical WITH THE Branch EVENING MEAL metformin Yes [id number] TAKE 1 U nivers ER 500 mg 803 TABLET BY ity o f 24 hr 00:00: MOUTH [place] tablet 00 EVERY DAY Medical WITH THE Branch EVENING MEAL hydrOXYzine Yes 25mg Take 25 mg Univers 25 mg 7-20 by mouth ity of tablet 14:33: every 8 [place] 41 (eight) Medical hours as Branch needed for Anxiety. hydrOXYzine 0 Yes 25mg Take 25 mg Univers 25 mg 7-20 by mouth ity of tablet 14:33: every 8 [place] 41 (eight) Medical hours as Branch needed for Anxiety. lamoTRIgine Yes 200mg Take 200 U nivers 200 mg 5-25 mg by ity of tablet 00:00: mouth at [place] [address] bedtime. Medical Branch QUEtiapine Yes 100mg Take 100 Un david 100 mg 5-25 mg by ity of tablet 00:00: mouth at [place] [address] bedtime. Medical Branch SERTraline Yes 50mg Take 50 mg U nivers 50 mg 5-25 by mouth ity of tablet 00:00: at [place] [address] bedtime. Medical Branch lamoTRIgine Yes 200mg Take 200 U nivers 200 mg 5-25 mg by ity of tablet 00:00: mouth at [place] [address] bedtime. Medical Branch QUEtiapine Yes 100mg Take 100 Un david 100 mg 5-25 mg by ity of tablet 00:00: mouth at [place] [address] bedtime. Medical Branch SERTraline Yes 50mg Take 50 mg U nivers 50 mg 5-25 by mouth ity of tablet 00:00: at [place] [address] bedtime. Medical Branch oxyCODONE-a Yes TAKE 1 Univ ers cetaminophe 5-19 TABLET BY ity of n 5-325 mg 00:00: MOUTH [place] per tablet 00 EVERY 4 Medica l HOURS Branch NEEDED FOR PAIN oxyCODONE-a Yes TAKE 1 Univ ers cetaminophe 5-19 TABLET BY ity of n 5-325 mg 00:00: MOUTH [place] per tablet 00 EVERY 4 Medica l HOURS Branch NEEDED FOR PAIN Vital Signs Vital Name Observation Time Observation Value Comments Source Systolic blood 2021-03-10 19:42:00 129 mm[Hg] Univer sity of pressure [place] [facility] [place] Diastolic blood 2021-03-10 19:42:00 81 mm[Hg] Unive rsity of pressure [facility] Heart rate 2021-03-10 19:42:00 79 /min [facility] Body temperature 2021-03-10 19:42:00 36.17 Ashlee [facility] Respiratory rate 2021-03-10 19:42:00 18 /min [facility] Body height 2021-03-10 19:42:00 165.1 cm [facility] Body weight 2021-03-10 19:42:00 89.177 kg [facility] BMI 2021-03-10 19:42:00 32.72 kg/m2 [facility] Oxygen saturation in 2021-03-10 19:42:00 98 /min [facility] Arterial blood by [facility] Pulse oximetry Branch Procedures This patient has no known procedures. Encounters Start End Encounter Admission Attending Care Care Encounter Source Date/Time Date/Time Type Type Clinicians Facility Department ID 2021-03-10 2021-03-10 Office Adina [facility] [id number] [facility] 14:29:05 14:49:05 Visit Leela Monique [id number] ity [facility] [id number] Alissa Cardoso [id number] Hi keaton gonzalez 085 [facility] 2021-03-05 2021-03-05 Patient Gavin [facility] [id number] Univers 00:00:00 00:00:00 Secure [facility] [id number] ity of [place] [id number] Jesus as Samson?Blea [id number] [facility] [address] [place] [facility] 2020-07-01 2020-07-01 Outpatient SW [facility] [address] [facility] 06:05:00 06:05:00 Results Test Description Test Time Test Comments Results Result Comments Source IR Thyroid Biopsy 2020-05-28 15:04:14 [facility] 1965 Sex: F *Patient: [...] 3:04 pm IR Thyroid Biopsy 2020-05-28 15:04:14 [facility] 1965 Sex: F *Patient: [...] t he patient is critically ill. POC [id number] 12:21:41 Test Item Value Reference Range Interpretation Comments Glucose POC (test 105 mg/dL 74-106 POC Glucos e used on code = Glucose POC) critical ly ill patients is considered " off-label use" and has no t been cleared or appr jeannette by the FDA. Altern ative testing methods should be considered i f the patient is crit ically ill. Prothrombin Time and [id number] 11:11:55 Test Item Value Reference Range Interpretation Comments Prothrombin Time (test code = 10.8 seconds 9.0-12.0 Prothrombin Time) INR (test code = INR) 1.0 ratio 0.9-1.2 Partial Thromboplastin [id number] 11:11:55 Test Item Value Reference Range Interpretation Comments Partial Thromboplastin Time 27.8 seconds 24.0-35.0 (test code = Partial Thromboplastin Time) IG [id number] 10:58:55 Test Item Value Reference Range Interpretation Comments IG (test code = IG) 0 % 0-5 IG Abs (test code = IG Abs) 0 x10 N Complete Blood Count with [id number] 10:58:54 Test Item Value Reference Range Interpretation [...] = Slide Review) GL_SET_SLIDE _REVIEW_A UTO Automated [id number] 10:58:54 Test Item Value Reference Range Interpretation Comments Neutro Auto (test code = Neutro Auto) 60.9 % N Lymph Auto (test code = Lymph Auto) 27.7 % N [place] Auto (test code = [place] Auto) 8.5 % N Eos, Auto (test code = Eos, Auto) 1.8 % N Basophil Auto (test code = Basophil 0.9 % N Auto) Neutro Absolute (test code = Neutro 2.7 x10 2.7-7.3 Absolute) Lymph Absolute (test code = Lymph 1.2 x10 0.8-3.5 Absolute) [place] Absolute (test code = [place] 0.4 x10 0.3-0.9 Absolute) Eos Absolute (test code = Eos 0.1 x10 0.0-0.3 Absolute) Baso Absolute (test code = Baso 0.0 x10 0.0-0.1 Absolute)
--- NOTE | 2021-03-17 13:46 | EDPHYS ---
Physician Documentation [facility] Name: Lashon Baca Age: 56 yrs Sex: Female : 1965 Arrival Date: 03/17/2021 Time: 13:41 Bed External Waiting Private MD: ED Physician Jarod Burnett HPI: 03/17 14:07 This 56 yrs old Female presents to ER via Ambulatory with complaints of Wasp kb Sting. 14:07 The patient was bitten on the right tricep, by a wasp, at home. Onset: The kb symptoms/episode began/occurred 3 day(s) ago. Animal information: wasp. Secondary to the bite the patient reports erythema, swelling. Associated signs and symptoms: Pertinent positives: erythema at site, swelling at site. Severity of symptoms: At their worst the symptoms were mild, in the emergency department the symptoms are unchanged. The patient has not experienced similar symptoms in the past. The patient has been recently seen at the [facility] Emergency Department, last week, for similar complaints. Pt was stung by a wasp 3 days ago. Had warmth, redness and swelling to site that day. Was prescribed antibiotics for local cellulitis. Comes in today because the swelling and slight redness has moved down to elbow. No warmth noted, no induration. . Historical: - Allergies: 13:42 Cymbalta; sv 13:42 Savella; sv - PMHx: 13:42 Bipolar disorder; Diabetes - NIDDM; Fibromyalgia; Rheumatoid Arthritis; sv - Immunization history:: Adult Immunizations. - Social history:: Smoking status: . ROS: 14:07 Constitutional: Negative for fever, chills, and weight loss. kb 14:07 Skin: Positive for erythema, swelling, of the right tricep. 14:07 All other systems are negative. Exam: 14:07 Constitutional: This is a well developed, well nourished patient who is awake, alert, kb and in no acute distress. Head/Face: Normocephalic, atraumatic. ENT: Moist Mucous membranes Respiratory: Respirations even and unlabored. No increased work of breathing, no retractions or nasal flaring. MS/ Extremity: Pulses equal, no cyanosis. Neurovascular intact. Full, normal range of motion. Neuro: Awake and alert, GCS 15, oriented to person, place, time, and situation. Moves all extremities. Normal gait. Psych: Awake, alert, with orientation to person, place and time. Behavior, mood, and affect are within normal limits. 14:07 Skin: Appearance: normal except for affected area, Color: erythematous, swelling, noted on the right tricep, that are mild. Vital Signs: 13:43 BP 121 / 82; Pulse 76; Resp 16; Temp 98.6; Pulse Ox 99% ; sv MDM: 13:45 Patient medically screened. kb 14:06 Data reviewed: vital signs, nurses notes. Data interpreted: Pulse oximetry: on room air kb is 99 %. Interpretation: normal. Counseling: I had a detailed discussion with the patient and/or guardian regarding: the historical points, exam findings, and any diagnostic results supporting the discharge/admit diagnosis, the need for outpatient follow up, a family practitioner, to return to the emergency department if symptoms worsen or persist or if there are any questions or concerns that arise at home. Administered Medications: 13:50 Drug: SOLU-Medrol (methylPREDNISolone sodium succinate) 125 mg Route: IM; Site: right sv gluteus; 14:07 Follow up: Response: No adverse reaction sv 13:52 CANCELLED (Physician Discretion): SOLU-Medrol (methylPrednisoLONE) 125 mg IVP once sv Disposition: 17:09 Co-signature as Attending Physician, Jarod Burnett MD. rn Disposition Summary: 03/17/21 13:45 Discharge Ordered Location: Home kb Condition: Stable kb Diagnosis - Bitten or stung by nonvenomous insect and other nonvenomous arthropods, subsequent kb encounter - wasp sting Followup: kb - With: Emergency Department - When: As needed - Reason: Worsening of condition Followup: kb - With: Private Physician - When: 2 - 3 days - Reason: Recheck today's complaints, Continuance of care, Re-evaluation by your physician Discharge Instructions: - Discharge Summary Sheet kb - Bee, Wasp, or Hornet Sting, Adult kb - Insect Bite, Adult, Fzte-[id number] kb Forms: - Medication Reconciliation Form kb - Thank You Letter kb - Antibiotic Education kb - Prescription Opioid Use kb Prescriptions: - Pepcid 20 mg Oral Tablet - take 1 tablet by ORAL route every 12 hours for 5 days; 10 tablet; Refills: 0, kb Product Selection Permitted - Prednisone 20 mg Oral Tablet - take 1 tablet by ORAL route once daily for 5 days; 5 tablet; Refills: 0, kb Product Selection Permitted Signatures: Rosalinda Jiménez FNP-C FNP-Ckb Ver[place], Stephanie RN RN sv Jarod Burnett MD MD regulatory intern: (The following items were deleted from the chart) 13:52 13:46 SOLU-Medrol (methylPrednisoLONE) 125 mg IVP once ordered. erika sv
--- NOTE | 2021-03-17 13:46 | ER ---
Nurse's Notes [facility] Name: Lashon Baca Age: 56 yrs Sex: Female : 1965 Arrival Date: 03/17/2021 Time: 13:41 Bed External Waiting Private MD: Diagnosis: Bitten or stung by nonvenomous insect and other nonvenomous arthropods, subsequent encounter-wasp sting Presentation: 03/17 13:42 Chief complaint: Patient states: I was here Monday for a wasp sting and was sent with sv Bactrim and now the redness and swelling have increased since then. Risk Assessment: Do you want to hurt yourself or someone else? Patient reports no desire to harm self or others. Onset of symptoms was March 15, 2021. 13:42 Method Of Arrival: Ambulatory sv 13:42 Acuity: KENNETH 4 sv 13:43 Coronavirus screen: At this time, the client does not indicate any symptoms associated sv with coronavirus-19. Ebola Screen: No symptoms or risks identified at this time. Initial Sepsis Screen: Does the patient meet any 2 criteria? No. Patient's initial sepsis screen is negative. Does the patient have a suspected source of infection? No. Patient's initial sepsis screen is negative. Triage Assessment: 13:43 General: Appears in no apparent distress. uncomfortable, Behavior is calm, cooperative, sv appropriate for age. Pain: Complains of pain in right tricep. Neuro: Level of Consciousness is awake, alert, obeys commands, Gait is steady. Respiratory: Respiratory effort is even, unlabored. Historical: - Allergies: 13:42 Cymbalta; sv 13:42 Savella; sv - PMHx: 13:42 Bipolar disorder; Diabetes - NIDDM; Fibromyalgia; Rheumatoid Arthritis; sv - Immunization history:: Adult Immunizations. - Social history:: Smoking status: . Screenin:53 Abuse screen: Denies threats or abuse. Denies injuries from another. Nutritional sv screening: No deficits noted. Tuberculosis screening: No symptoms or risk factors identified. Fall Risk None identified. Assessment: 13:53 Reassessment: Patient appears in no apparent distress at this time. No changes from sv previously documented assessment. See triage assessment. Vital Signs: 13:43 BP 121 / 82; Pulse 76; Resp 16; Temp 98.6; Pulse Ox 99% ; sv ED Course: 13:41 Patient arrived in ED. ds1 13:41 Arm band placed on. sv 13:42 Triage completed. sv 13:45 Rosalinda Jiménez FNP-C [facility]. kb 13:45 Jarod Burnett MD is Attending Physician. kb 13:53 Patient has correct armband on for positive identification. sv 13:53 No provider procedures requiring assistance completed. Patient did not have IV access sv during this emergency room visit. 13:57 Jelena Ca, RN is Primary Nurse. sv Administered Medications: 13:50 Drug: SOLU-Medrol (methylPREDNISolone sodium succinate) 125 mg Route: IM; Site: right sv gluteus; 14:07 Follow up: Response: No adverse reaction sv 13:52 CANCELLED (Physician Discretion): SOLU-Medrol (methylPrednisoLONE) 125 mg IVP once sv Outcome: 13:45 Discharge ordered by MD. kb 14:07 Discharged to home ambulatory. sv 14:07 Condition: stable 14:07 Discharge instructions given to patient, Instructed on discharge instructions, follow up and referral plans. medication usage, Demonstrated understanding of instructions, follow-up care, medications, Prescriptions given X 2. 14:08 Patient left the ED. sv Signatures: Rosalinda Jiménez FNP-C SHOW DESIGN SUPERVISOR-Ckb Jelena Ca RN RN sv Stephany Boles ds1 Corrections: (The following items were deleted from the chart) 13:46 13:43 Pulse 76bpm; Resp 16bpm; Pulse Ox 99%; Temp 98.6F; sv sv
[2021-03-17] MEDS ORDERED: METHYLPREDNISOLONE 125 MG INJ ONE (14:11)
[2021-03-17 14:13] VITALS: BP 121/82; TEMP 98.6; O2SAT 99
== END 2021-03-17 14:08 | disposition home or self-care (01) ==
LOC: ER 13:09
DX: T63.461D Toxic effect of venom of wasps, accidental (unintentional), subsequent encounter (principal); Z88.8 Allergy status to other drugs, medicaments and biological substances
CPT/HCPCS: 96372; 99283; J2930

== ENCOUNTER 2021-06-28 08:11 | Emergency (ER) | payer OTHER ==
--- OUTSIDE RECORDS SUMMARY | 2021-06-28 08:15 | XMS REPORT | Continuity of Care Document ---
:[address] [facility] t Address [address] [place] [address] Care Team Providers Name Role Phone Toñito Hays MD Primary Care Physician [phone] [place] Hays MD Attending Clinician Geoffrey NORRIS Attending Clinician Unavailable Geoffrey Norris PA-C Attending Clinician Lab, - Db Attending Clinician Unavailable Doctor Unassigned, Name Attending Clinician Unavailable YVON CURRIE Attending Clinician Unavailable Payers Payer Name Policy Type Policy Number Effective Date Expiration Date S ource Problems Condition Condition Condition Status Onset Resolution Last Treating Co mments Source Name Details Category Date Date Treatment Clinician Date Type 2 Type 2 Disease Active Univers diabetes diabetes - ity of mellitus mellitus 00:00: [place] without without 00 Medical complicati complicati Br anch on, on, without without long-term long-term current current use of use of insulin insulin Thyroid Thyroid Disease Active Univers nodule nodule 03-18 ity of 00:00: [place] [facility] Branch Dyslipidem Dyslipidem Disease Active U nivers ia ia 03-18 ity of 00:00: [place] [facility] Branch Carpal Carpal Disease Active Univers tunnel tunnel 6-24 ity of syndrome syndrome 00:00: [place] of right of right 00 Medica l wrist wrist Branch Ganglion Ganglion Disease Active Unive rs cyst cyst 6-24 ity of 00:00: [place] 00 Medical Branch Tenosynovi Tenosynovi Disease Active 2017-07 U nivers tis of tis of 2-15 ity of [place] hand [place] [facility] 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 Sleep Sleep Disease Active 2017-07 Univers apnea apnea 07-22 ity of 00:00: [place] [facility] Branch Vitamin D Vitamin D Disease Active 2017-07 Uni vers deficiency deficiency 1-06 it y of 00:00: [place] [facility] Depressed Depressed Disease Active Uni vers bipolar bipolar 8 ity of disorder disorder 00:00: [place] [facility] Branch Fibromyalg Fibromyalg Disease Active U nivers ia ia 03-04 ity of 00:00: [place] [facility] Branch Silas Silas Disease Active Uni 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-04 it y of s, fibrous s, fibrous [place] variant variant 00 [facility] Rheumatoid Rheumatoid Disease Active U nivers arthritis arthritis 03-04 ity of 00:00: [place] [facility] Branch Allergies, Adverse Reactions, Alerts Allergy Allergy Status Severity Reaction(s) Onset Inactive Treating Comm ents Source Name Type Date Date Clinician Duloxeti Drug Active Rash Univers ne Hcl Allergy 7-20 ity of 00:00: [place] [facility] Edoxaban Drug Active Rash Univers Tosylate Allergy 7-20 ity of 00:00: [place] [facility] Milnacip Drug Active Other - See Uni vers ran Hcl Allergy comments -20 ity of 00:00: [place] [facility] EDOXABAN DRUG Active High Rash Univers TOSYLATE INGREDI 7-20 ity of 00:00: Medical Branch DULOXETI DRUG Active Med Rash Univers NE HCL INGREDI 7-20 ity of 00:00: [place] [facility] MILNACIP DRUG Active Med Other-Cmnt Univ ers RAN HCL INGREDI 02-02 ity of 00:00: [address] [place] [address] lactose DA Active U [facility] 00:00: Region [facility] duloxeti DA Active DE [facility] ne 01-31 [place] 00:00: [facility] Social History Social Habit Start Date Stop Date Quantity Comments Source History SDWV University o f Alcohol Frequency [facility] edical Branch History SDOH University o f Alcohol Std Drinks [facility] Branch History [facility] University o f Alcohol Binge [facility] al Branch Exposure to Not sure [place] of SARS-CoV-2 (event) [facility] Alcohol intake 2021-06-08 2021-06-08 Current drinker Unive rsity of 00:00:00 00:00:00 of alcohol [facility] (finding) Branch Cigarettes smoked 2021-02-02 2021-02-02 Univers ity of current (pack per 00:00:00 00:00:00 [facility] ) - Reported Branch Cigarette 2021-02-02 2021-02-02 University of pack-years 00:00:00 00:00:00 [facility] Tobacco use and 2021-02-02 2021-02-02 Never used Universit y of exposure 00:00:00 00:00:00 [facility] Alcohol Comment 2021-02-02 2021-02-02 socially Universit y of 00:00:00 00:00:00 [facility] History of tobacco 1993-02-02 Cigarette Smoker University of use 00:00:00 [facility] Sex [birth year] Universit y of 00:00:00 00:00:00 [facility] Smoking Status Start Date Stop Date Source Former smoker 2021-02-02 00:00:00 2021-02-02 00:00:00 Universi ty of [facility] Medications Ordered Filled Start Stop Current Ordering Indication Dosage Frequency Signature Comments Components Source Medication Medication Date Date Medication? Clinician (SIG) Name Name simvastatin 2021-0 Yes [id number] 40mg Take 1 Univers 40 mg 8-24 tablet by ity of tablet 00:00: mouth at [place] [address] bedtime. [facility] simvastatin 2020-0 Yes [id number] 40mg Take 1 Univers 40 mg 8-24 tablet by ity of tablet 00:00: mouth at [place] [address] bedtime. [facility] simvastatin 2020-0 Yes [id number] 40mg Take 1 Univers 40 mg 8-24 tablet by ity of tablet 00:00: mouth at [place] [address] bedtime. [facility] simvastatin 2020-0 Yes [id number] 40mg Take 1 Univers 40 mg 8-24 tablet by ity of tablet 00:00: mouth at [place] 00 bedtime. [facility] simvastatin 2020-0 Yes [id number] 40mg Take 1 Univers 40 mg 8-24 tablet by ity of tablet 00:00: mouth at [place] [address] bedtime. [facility] simvastatin 2020-0 Yes [id number] 40mg Take 1 Univers 40 mg 8-24 tablet by ity of tablet 00:00: mouth at [place] [address] bedtime. [facility] metformin 2020-0 Yes [id number] TAKE 1 U nivers ER 500 mg 8-03 TABLET BY ity o f 24 hr 00:00: MOUTH [place] tablet 00 EVERY DAY Medical WITH THE [place] EVENING MEAL metformin 2020-0 Yes [id number] TAKE 1 U nivers ER 500 mg 8-03 TABLET BY ity o f 24 hr 00:00: MOUTH [place] tablet 00 EVERY DAY Medical WITH THE [place] EVENING MEAL metformin 2020-0 Yes [id number] TAKE 1 U nivers ER 500 mg 8-03 TABLET BY ity o f 24 hr 00:00: MOUTH [place] tablet 00 EVERY DAY Medical WITH THE [place] EVENING MEAL metformin 2020-0 Yes [id number] TAKE 1 U nivers ER 500 mg 8-03 TABLET BY ity o f 24 hr 00:00: MOUTH [place] tablet 00 EVERY DAY Medical WITH THE [place] EVENING MEAL metformin 2020-0 Yes [id number] TAKE 1 U nivers ER 500 mg 8-03 TABLET BY ity o f 24 hr 00:00: MOUTH [place] tablet 00 EVERY DAY Medical WITH THE [place] EVENING MEAL metformin 2020-0 Yes [id number] TAKE 1 U nivers ER 500 mg 8-03 TABLET BY ity o f 24 hr 00:00: MOUTH [place] tablet 00 EVERY DAY Medical WITH THE [place] EVENING MEAL hydrOXYzine 2020-0 Yes 25mg Take 25 mg Univers 25 mg 7-20 by mouth ity of tablet 09:33: every 8 [place] [address] (eight) Medical hours as Branch needed for Anxiety. hydrOXYzine 2021-0 Yes 25mg Take 25 mg Univers 25 mg 7-20 by mouth ity of tablet 09:33: every 8 [place] [address] (eight) Medical hours as Branch needed for Anxiety. hydrOXYzine 2021-0 Yes 25mg Take 25 mg Univers 25 mg 7-20 by mouth ity of tablet 09:33: every 8 [place] [address] (eight) Medical hours as Branch needed for Anxiety. hydrOXYzine 2021-0 Yes 25mg Take 25 mg Univers 25 mg 7-20 by mouth ity of tablet 09:33: every 8 [place] [address] (eight) Medical hours as Branch needed for Anxiety. hydrOXYzine 2021-0 Yes 25mg Take 25 mg Univers 25 mg 7-20 by mouth ity of tablet 09:33: every 8 [place] [address] (eight) Medical hours as Branch needed for Anxiety. hydrOXYzine 1-0 Yes 25mg Take 25 mg Univers 25 mg 7-20 by mouth ity of tablet 09:33: every 8 [place] [address] (eight) Medical hours as Branch needed for Anxiety. lamoTRIgine 2020-0 Yes 200mg Take 200 U nivers 200 mg 5-25 mg by ity of tablet 00:00: mouth at [place] [address] bedtime. Medical Branch QUEtiapine 2020-0 Yes 100mg Take 100 Un david 100 mg 5-25 mg by ity of tablet 00:00: mouth at [place] [address] bedtime. Medical Branch SERTraline 2020-0 Yes 50mg Take 50 mg U nivers 50 mg 5-25 by mouth ity of tablet 00:00: at [place] [address] bedtime. Medical Branch lamoTRIgine 2020-0 Yes 200mg Take 200 U nivers 200 mg 5-25 mg by ity of tablet 00:00: mouth at [place] [address] bedtime. Medical Branch QUEtiapine 2020-0 Yes 100mg Take 100 Un david 100 mg 5-25 mg by ity of tablet 00:00: mouth at [place] [address] bedtime. Medical Branch SERTraline 2020-0 Yes 50mg Take 50 mg U nivers 50 mg 5-25 by mouth ity of tablet 00:00: at [place] [address] bedtime. Medical Branch lamoTRIgine 1-0 Yes 200mg Take 200 U nivers 200 mg 5-25 mg by ity of tablet 00:00: mouth at [place] [address] bedtime. Medical Branch QUEtiapine 0 Yes 100mg Take 100 Un david 100 mg 5-25 mg by ity of tablet 00:00: mouth at [place] [address] bedtime. Medical Branch SERTraline 0 Yes 50mg Take 50 mg U nivers 50 mg 5-25 by mouth ity of tablet 00:00: at [place] [address] bedtime. Medical Branch lamoTRIgine 2020-0 Yes 200mg Take 200 U nivers 200 mg 5-25 mg by ity of tablet 00:00: mouth at [place] [address] bedtime. Medical Branch QUEtiapine 0 Yes 100mg Take 100 Un david 100 mg 5-25 mg by ity of tablet 00:00: mouth at [place] [address] bedtime. Medical Branch SERTraline 0 Yes 50mg Take 50 mg U nivers 50 mg 5-25 by mouth ity of tablet 00:00: at [place] [address] bedtime. Medical Branch lamoTRIgine 0 Yes 200mg Take 200 U nivers 200 mg 5-25 mg by ity of tablet 00:00: mouth at [place] [address] bedtime. Medical Branch QUEtiapine 0 Yes 100mg Take 100 Un david 100 mg 5-25 mg by ity of tablet 00:00: mouth at [place] [address] bedtime. Medical Branch SERTraline 0 Yes 50mg Take 50 mg U nivers 50 mg 5-25 by mouth ity of tablet 00:00: at [place] [address] bedtime. Medical Branch lamoTRIgine 0 Yes 200mg Take 200 U nivers 200 mg 5-25 mg by ity of tablet 00:00: mouth at [place] [address] bedtime. Medical Branch QUEtiapine 0 Yes 100mg Take 100 Un david 100 mg 5-25 mg by ity of tablet 00:00: mouth at [place] [address] bedtime. Medical Branch SERTraline 0 Yes 50mg Take 50 mg U nivers 50 mg 5-25 by mouth ity of tablet 00:00: at [place] [address] bedtime. Medical Branch oxyCODONE-a Yes TAKE 1 [...] Medica l HOURS Branch NEEDED FOR PAIN Immunizations Ordered Filled Immunization Date Status Comments [facility] Immunization Name Name SARS-COV-2 COVID-19 2021-05-11 Completed Unive rsity of MODERNA VACCINE 00:00:00 [facility] SARS-COV-2 COVID-19 2021-05-11 Completed Unive rsity of MODERNA VACCINE 00:00:00 [facility] SARS-COV-2 COVID-19 2021-05-11 Completed Unive rsity of MODERNA VACCINE 00:00:00 [facility] SARS-COV-2 COVID-19 2021-05-11 Completed Unive rsity of MODERNA VACCINE 00:00:00 [facility] SARS-COV-2 COVID-19 2021-05-11 Completed Unive rsity of MODERNA VACCINE 00:00:00 [facility] SARS-COV-2 COVID-19 2021-05-11 Completed Unive rsity of MODERNA VACCINE 00:00:00 [facility] Influenza Virus 2021-04-22 Completed Universit y of Vaccine 00:00:00 [facility] Influenza Virus 2021-04-22 Completed Universit y of Vaccine 00:00:00 [facility] Influenza Virus 2021-04-22 Completed Universit y of Vaccine 00:00:00 [facility] Influenza Virus 2021-04-22 Completed Universit y of Vaccine 00:00:00 [facility] Influenza Virus 2021-04-22 Completed Universit y of Vaccine 00:00:00 [facility] Influenza Virus 2021-04-22 Completed Universit y of Vaccine 00:00:00 [facility] SARS-COV-2 COVID-19 2020-11-05 Completed Unive rsity of MODERNA VACCINE 00:00:00 [facility] SARS-COV-2 COVID-19 2020-11-05 Completed Unive rsity of MODERNA VACCINE 00:00:00 [facility] SARS-COV-2 COVID-19 2020-11-05 Completed Unive rsity of MODERNA VACCINE 00:00:00 [facility] SARS-COV-2 COVID-19 2020-11-05 Completed Unive rsity of MODERNA VACCINE 00:00:00 [facility] SARS-COV-2 COVID-19 2020-11-05 Completed Unive rsity of MODERNA VACCINE 00:00:00 [facility] SARS-COV-2 COVID-19 2020-11-05 Completed Unive rsity of MODERNA VACCINE 00:00:00 [facility] SARS-COV-2 COVID-19 2020-10-08 Completed Unive rsity of MODERNA VACCINE 00:00:00 [facility] SARS-COV-2 COVID-19 2020-10-08 Completed Unive rsity of MODERNA VACCINE 00:00:00 [facility] SARS-COV-2 COVID-19 2020-10-08 Completed Unive rsity of MODERNA VACCINE 00:00:00 [facility] SARS-COV-2 COVID-19 2020-10-08 Completed Unive rsity of MODERNA VACCINE 00:00:00 [facility] SARS-COV-2 COVID-19 2020-10-08 Completed Unive rsity of MODERNA VACCINE 00:00:00 [place] Med ical Branch SARS-COV-2 COVID-19 2020-10-08 Completed Unive rsity of MODERNA VACCINE 00:00:00 [facility] Vital Signs Vital Name Observation Time Observation Value Comments Source Systolic blood 2021-06-09 15:59:00 103 mm[Hg] Univer sity [facility] Diastolic blood 2021-06-09 15:59:00 69 mm[Hg] Unive rsity [facility] Heart rate 2021-06-09 15:59:00 67 /min [facility] Body height 2021-06-09 15:59:00 165.1 cm [facility] Body weight 2021-06-09 15:59:00 92.08 kg [facility] BMI 2021-06-09 15:59:00 33.78 kg/m2 [facility] Procedures Procedure Date / Time Performing Clinician Source Performed XR HAND 3+ VW BILATERAL 2021-06-09 16:43:00 Manisha Norris [facility] XR CHEST 2 VW 2021-06-09 16:36:[address] [facility] AUTHORIZATION TO RELEASE 2021-06-08 06:01:00 Doctor Unassigned, No [facility] PHI TO [facility] Name [facility] Encounters Start End Encounter Admission Attending Care Care Encounter Source Date/Time Date/Time Type Type Clinicians Facility Department ID 2021-06-17 2021-06-17 Tele[place] [id number] Univers 00:00:00 00:00:00 [facility] [id number] it y of Randolph GUNTER [id number] Jesus as CHAYITO?BLEA [phone] [address] MEDICAL OFFICE BUILDING 2021-06-09 2021-06-09 Outpatient R JR [facility] [id number] Univers 10:20:41 23:59:00 MANISHA levin [facility] 2021-06-09 2021-06-09 [facility] [id number] Univers 10:20:41 23:59:00 Encounter Manisha HARO [id number] [place] [id number] Jesus as CHAYITO?BLEA [id number] [place] [address] [place] MEDICAL OFFICE [facility] 2021-06-09 2021-06-09 [facility] [id number] Univers 10:20:27 23:59:00 Encounter Manisha HARO [id number] ity of [place] [id number] Jesus as CHAYITO?BLEA [id number] [place] SM[place] [address] [facility] OFFICE [facility] 2021-06-09 2021-06-09 [facility] [id number] Univers 12:15:00 12:15:00 MANISHA [id number] ity of [facility] 2021-06-09 2021-06-09 Certified Midwife Lab, Ang - [facility] [id number] Univers 10:20:19 10:35:19 Visit Toñito Hays [facility] [id number] ity of [place] [id number] Jesus as CHAYITO?BLEA [id number] [place] SMITH [address] [facility] OFFICE [facility] 2021-06-09 2021-06-09 Office Saúl [facility] [id number] Univers 09:52:48 10:07:48 Visit Toñito [facility] [id number] it y of [place] GUNTER [id number] Jesus as CHAYITO?BLEA [phone] [place] SMITH [address] [facility] OFFICE [facility] 2021-06-08 2021-06-08 Orders Doctor DOMINGO [id number] Univers 00:00:00 00:00:00 Only Unassigned, LUDIN [id number] ity of [place] [facility] [id number] Jesus as [phone] [address] 2020-07-01 2020-07-01 Outpatient KUSH ITALO [facility] [id number] ITALO 06:05:00 16:15:00 [place] Results Test Description Test Time Test Comments Results Result Comments Source IR Thyroid Biopsy 2020-05-28 15:04:14 [facility] 1965 Sex: F [...] 3:04 pm IR Thyroid Biopsy 2020-05-28 15:04:14 [facility] 1965 Sex: F [...] t he patient is critically ill. POC [id number] 12:21:41 Test Item Value Reference Range Interpretation Comments Glucose POC (test 105 mg/dL 74-106 POC Glucos e used on code = Glucose POC) critical ly ill patients is considered " off-label use" and has no t been cleared or appr jeannette by the FDA. Altern ative testing methods should be considered i f the patient is crit ically ill. Prothrombin Time and [id number] 11:11:55 Test Item Value Reference Range Interpretation Comments Prothrombin Time (test code = 10.8 seconds 9.0-12.0 Prothrombin Time) INR (test code = INR) 1.0 ratio 0.9-1.2 Partial Thromboplastin [id number] 11:11:55 Test Item Value Reference Range Interpretation Comments Partial Thromboplastin Time 27.8 seconds 24.0-35.0 (test code = Partial Thromboplastin Time) IG [id number] 10:58:55 Test Item Value Reference Range Interpretation Comments IG (test code = IG) 0 % 0-5 IG Abs (test code = IG Abs) 0 x10 N Complete Blood Count with [id number] 10:58:54 Test Item Value Reference Range Interpretation [...] = Slide Review) GL_SET_SLIDE _REVIEW_A UTO Automated [id number] 10:58:54 Test Item Value Reference Range Interpretation Comments Neutro Auto (test code = Neutro Auto) 60.9 % N Lymph Auto (test code = Lymph Auto) 27.7 % N Moody Auto (test code = Moody Auto) 8.5 % N Eos, Auto (test code = Eos, Auto) 1.8 % N Basophil Auto (test code = Basophil 0.9 % N Auto) Neutro Absolute (test code = Neutro 2.7 x10 2.7-7.3 Absolute) Lymph Absolute (test code = Lymph 1.2 x10 0.8-3.5 Absolute) Moody Absolute (test code = Moody 0.4 x10 0.3-0.9 Absolute) Eos Absolute (test code = Eos 0.1 x10 0.0-0.3 Absolute) Baso Absolute (test code = Baso 0.0 x10 0.0-0.1 Absolute)
--- NOTE | 2021-06-28 10:08 | RAD REPORT ---
EXAM DESCRIPTION: [place] Single View06/28/2021 9:39 am CLINICAL HISTORY: fever COMPARISON: none FINDINGS: The lungs appear clear of acute infiltrate. The heart is borderline enlarged IMPRESSION: No acute abnormalities displayed
[2021-06-28 10:25] LABS: SARS-COV-2 RT PCR NEGATIVE (NEGATIVE)
--- NOTE | 2021-06-28 10:41 | EDPHYS ---
Physician Documentation [facility] Name: Lashon Baca Age: 56 yrs Sex: Female : 1965 Arrival Date: 06/28/2021 Time: 08:16 Bed 12 Private MD: Toñito Hays ED Physician Jarod Burnett HPI: 06/28 08:33 This 56 yrs old Female presents to ER via Ambulatory with complaints of Cough, jmm Congestion, Sore Throat. 08:33 The patient or guardian reports cough. Onset: The symptoms/episode began/occurred jmm gradually, 4 day(s) ago. Modifying factors: The symptoms are alleviated by nothing, the symptoms are aggravated by nothing. Associated signs and symptoms: Pertinent positives: sore throat. It is unknown whether or not the patient has had similar symptoms in the past. Grandson is similar symptoms.. Historical: - Allergies: 08:22 Cymbalta; ss 08:22 Savella; ss - PMHx: 08:22 Bipolar disorder; Diabetes - NIDDM; Fibromyalgia; Rheumatoid Arthritis; ss - Immunization history:: Client reports receiving the 2nd dose of the Covid vaccine. - Social history:: Smoking status: Patient reports the use of cigarette tobacco products, denies chronic smoking, but will smoke occasionally. ROS: 08:33 Constitutional: Negative for fever, chills, and weight loss. jmm 08:33 Neck: Negative for injury, pain, and swelling, Cardiovascular: Negative for chest pain, palpitations, and edema. 08:33 ENT: Positive for sore throat. 08:33 Respiratory: Positive for cough. 08:33 All other systems are negative. Exam: 08:33 Constitutional: This is a well developed, well nourished patient who is awake, alert, jmm and in no acute distress. Head/Face: atraumatic. Eyes: EOMI, no conjunctival erythema appreciated 08:33 Neck: Trachea midline, Supple Chest/axilla: Normal chest wall appearance and motion. Cardiovascular: Regular rate and rhythm. No edema appreciated Respiratory: Normal respirations, no respiratory distress appreciated Abdomen/GI: Non distended, soft Back: Normal ROM Skin: General appearance color normal MS/ Extremity: Moves all extremities, no obvious deformities appreciated, no edema noted to the lower extremities Neuro: Awake and alert, normal gait Psych: Behavior is normal, Mood is normal, Patient is cooperative and pleasant 08:33 ENT: Posterior pharynx: erythema, that is moderate. Vital Signs: 08:20 BP 128 / 94; Pulse 96; Resp 16; Temp 98.1(O); Pulse Ox 99% on R/A; Weight 89.81 kg; ss Height 5 ft. 5 in. (165.10 cm); Pain 9/10; 08:20 Body Mass Index 32.95 (89.81 kg, 165.10 cm) ss MDM: 08:33 Patient medically screened. [facility] 10:39 Data reviewed: vital signs, nurses notes. Counseling: I had a detailed discussion with [facility] the patient and/or guardian regarding: the historical points, exam findings, and any diagnostic results supporting the discharge/admit diagnosis, lab results, radiology results, the need for outpatient follow up, to return to the emergency department if symptoms worsen or persist or if there are any questions or concerns that arise at home. ED course: Patient is alert and nontoxic in appearance in the ED. No signs of respiratory distress. Patient advised to follow with PCP and otherwise given strict return precautions. Patient understood agrees plan of care.. 06/28 08:39 Order name: SARS-COV-2 RT PCR (Document "Date of Onset" if Symptomatic) [facility] 06/28 08:39 Order name: Flu [facility] 06/28 08:39 Order name: Strep; Complete Time: 10:08 [facility] 06/28 09:42 Order name: COVID-19/FLU A+B; Complete Time: 10:36 [facility] 06/28 08:39 Order name: Chest Single View XRAY; Complete Time: 10:08 [facility] Administered Medications: 11:12 Drug: Bicillin L-A (penicillin G Benzathine) 1.2 million units Route: IM; Site: right ss gluteus; 11:30 Follow up: Response: No adverse reaction ss Disposition: 15:27 Co-signature as Attending Physician, Jarod Burnett MD I agree with the assessment and rn plan of care. Attestation: The patient's history, exam findings, diagnostics, and a summary of any interventions or procedures was reviewed in detail with José JIMENEZ. Disposition Summary: 06/28/21 10:40 Discharge Ordered Location: Home [facility] Condition: Stable [facility] Diagnosis - Acute pharyngitis, unspecified jmm - Acute upper respiratory infection, unspecified [facility] Followup: [facility] - With: Toñito Hays MD - When: 2 - 3 days - Reason: Recheck today's complaints, Continuance of care, Re-evaluation by your physician Discharge Instructions: - Discharge Summary Sheet jmm - Pharyngitis jmm - Upper Respiratory Infection, Adult [facility] Forms: - Medication Reconciliation Form [facility] - Thank You Letter [facility] - Antibiotic Education [facility] - Prescription Opioid Use [facility] Prescriptions: - Augmentin 875-125 mg Oral Tablet - take 1 tablet by ORAL route every 12 hours for 10 days; 20 tablet; Refills: 0, [facility] Product Selection Permitted Signatures: Dispatcher [employer] EDMS José Calderon PA PA m Jarod Burnett MD MD rn Mya Shultz RN RN ss Corrections: (The following items were deleted from the chart) 09:42 08:40 SARS-COV-2 RT PCR ordered. EDCT EDMS
--- NOTE | 2021-06-28 10:41 | ER ---
Nurse's Notes [facility] Name: Lashon Baca Age: 56 yrs Sex: Female : 1965 Arrival Date: 06/28/2021 Time: 08:16 Bed 12 Private MD: Toñito Hays Diagnosis: Acute pharyngitis, unspecified;Acute upper respiratory infection, unspecified Presentation: 06/28 08:20 Chief complaint: Patient states: itchy ears and throat that began 5 days ago. Sore ss throat, cough, congestion and runny nose that began 3 days ago. Denies fever. Coronavirus screen: Client denies travel out of the [place] in the last 14 days. Ebola Screen: Patient denies exposure to infectious person. Patient denies travel to an Ebola-affected area in the 21 days before illness onset. Resp Distress? No respiratory distress is noted at this time. Initial Sepsis Screen: Does the patient meet any 2 criteria? No. Patient's initial sepsis screen is negative. Does the patient have a suspected source of infection? No. Patient's initial sepsis screen is negative. Risk Assessment: Do you want to hurt yourself or someone else? Patient reports no desire to harm self or others. Onset of symptoms was June 23, 2021. 08:20 Method Of Arrival: Ambulatory 08:20 Acuity: KENNETH 4 ss Historical: - Allergies: 08:22 Cymbalta; ss 08:22 Savella; ss - PMHx: 08:22 Bipolar disorder; Diabetes - NIDDM; Fibromyalgia; Rheumatoid Arthritis; ss - Immunization history:: Client reports receiving the 2nd dose of the Covid vaccine. - Social history:: Smoking status: Patient reports the use of cigarette tobacco products, denies chronic smoking, but will smoke occasionally. Screenin:20 Abuse screen: Denies threats or abuse. Denies injuries from another. Nutritional ss screening: No deficits noted. Tuberculosis screening: Never had TB. Fall Risk None identified. Assessment: 08:20 General: Appears in no apparent distress. comfortable, Behavior is calm, cooperative, ss Reports feeling ill for > 3 days. Pain: Complains of pain in throat, body aches Pain currently is 9 out of 10 on a pain scale. Quality of pain is described as aching, Is continuous. Neuro: Level of Consciousness is awake, alert, obeys commands, Oriented to person, place, time, situation, Watch Crystal Molder are equal bilaterally Speech is normal, Facial symmetry appears normal. Cardiovascular: Capillary refill < 3 seconds is brisk in bilateral fingers Patient's skin is warm and dry. Respiratory: Airway is patent Respiratory effort is even, unlabored, Respiratory pattern is regular, symmetrical, Breath sounds are clear bilaterally. Respiratory: Reports cough that is. GI: No signs and/or symptoms were reported involving the gastrointestinal system. : Denies burning with urination, urinary frequency. EENT: Nares are clear Oral mucosa is moist. Throat is clear. EENT: Reports. Derm: Skin is intact, is healthy with good turgor, Skin is dry, Skin is pink, warm \\T\\ dry. normal. Musculoskeletal: Circulation, motion, and sensation intact. Range of motion: intact in all extremities. 09:30 Reassessment: No changes from previously documented assessment. Patient and/or family ss updated on plan of care and expected duration. Pain level reassessed. 11:30 Reassessment: Patient appears in no apparent distress at this time. Patient and/or ss family updated on plan of care and expected duration. Pain level reassessed. Patient is alert, oriented x 3, equal unlabored respirations, skin warm/dry/pink. Vital Signs: 08:20 BP 128 / 94; Pulse 96; Resp 16; Temp 98.1(O); Pulse Ox 99% on R/A; Weight 89.81 kg; Height 5 ft. 5 in. (165.10 cm); Pain 9/10; 08:20 Body Mass Index 32.95 (89.81 kg, 165.10 cm) ED Course: 08:16 Patient arrived in ED. mr 08:16 Toñito Hays MD is Private Physician. mr 08:17 [facility] Calderon [facility]. jmm 08:17 Jarod Burnett MD is Attending Physician. [facility] 08:20 Patient has correct armband on for positive identification. Bed in low position. Call ss light in reach. 08:22 Triage completed. 08:22 Arm band placed on right wrist. 08:42 Influenza Screen (A Sent. [facility] 08:42 Strep Sent. [facility] 08:42 SARS-COV-2 RT PCR (Document "Date of Onset" if Symptomatic) Sent. [facility] 08:42 Flu Sent. [facility] 08:47 COVID swab sent to lab. Flu and/or RSV swab sent to lab. Strep swab sent to lab. [facility] 09:38 Chest Single View XRAY In Process Unspecified. EDMS 10:40 Toñito Hays MD is Referral Physician. ulises 10:43 Mya Shultz, RN is Primary Nurse. ss 11:30 No provider procedures requiring assistance completed. Patient did not have IV access ss during this emergency room visit. Administered Medications: 11:12 Drug: Bicillin L-A (penicillin G Benzathine) 1.2 million units Route: IM; Site: right ss gluteus; 11:30 Follow up: Response: No adverse reaction ss Outcome: 10:40 Discharge ordered by . [facility] 11:30 Discharged to home ambulatory. ss 11:30 Condition: good 11:30 Discharge instructions given to patient, Instructed on discharge instructions, follow up and referral plans. Demonstrated understanding of instructions, follow-up care. 11:30 Patient left the ED. ss Signatures: Dispatcher [employer] EDMS José Calderon PA PA jmm Rivera, Mary mr Mya Shultz, RN RN Zeina Ramon [facility] Corrections: (The following items were deleted from the chart) 09:42 08:42 SARS-COV-2 RT PCR drawn and sent. [facility] EDOK
[2021-06-28] MEDS ORDERED: PEN G BENZ LA 1.2MU/2ML SYRINGE IM ONE (11:06)
[2021-06-28 11:35] VITALS: BP 128/94; TEMP 98.1; O2SAT 99
== END 2021-06-28 11:30 | disposition home or self-care (01) ==
LOC: ER 08:11
DX: J06.9 Acute upper respiratory infection, unspecified (principal); J02.9 Acute pharyngitis, unspecified; Z88.5 Allergy status to narcotic agent; Z20.822 Contact with and (suspected) exposure to COVID-19
CPT/HCPCS: 87081; 0240U; 71045; 96372; 99283; J0561

== ENCOUNTER 2022-02-02 00:50 | Observation (INO) | payer OTHER ==
[2022-02-02] MEDS ORDERED: NA CHLORIDE 0.9% 1,000 ML ONE (02:54)
[2022-02-02 04:12] LABS: Urine Blood Negative (Negative); Urine Glucose Negative (Negative); Urine Protein Negative (Negative); Urine Specific Gravity 1.015 (1.005-1.030)
[2022-02-02 05:14] LABS: Absolute Lymphocytes (CBC) 1.2 K/uL (0.7-4.9); Hematocrit 29.4 % (36.0-45.0); Lymphocytes % 9.9 % (15.3-44.8); MPV 9.4 fL (7.6-11.3); Potassium 4.1 mmol/L (3.5-5.1); RBC Red Blood Cell Count 3.19 M/uL (3.86-4.86)
[2022-02-02 05:15] LABS: Barbiturates NEGATIVE (NEGATIVE); Benzodiazepines POSITIVE (NEGATIVE); Cocaine NEGATIVE (NEGATIVE); METHAMPHETAM NEGATIVE (NEGATIVE); Methadone NEGATIVE (NEGATIVE); Opiates POSITIVE (NEGATIVE); Phencyclidine NEGATIVE (NEGATIVE); THC Cannibis NEGATIVE (NEGATIVE)
--- NOTE | 2022-02-02 05:38 | EDPHYS ---
Physician Documentation [facility] Name: Lashon Baca Age: 56 yrs Sex: Female : 1965 Arrival Date: 02/02/2022 Time: 01:09 Bed 5 Private MD: ED Physician Jarod Burnett HPI: 02/02 01:51 This 56 yrs old Female presents to ER via EMS with complaints of fever. rn 01:51 The patient reports fever, that was measured at 102 degrees Fahrenheit. Onset: The rn symptoms/episode began/occurred last night. Modifying factors: there are no obvious modifying factors. Associated signs and symptoms: Pertinent positives: chills, cough, sore throat, Pertinent negatives: abdominal pain, altered mental status, diarrhea, headache, skin rash, vomiting. Severity of symptoms: At their worst the symptoms were moderate in the emergency department the symptoms are unchanged. The patient has not experienced similar symptoms in the past. The patient has been recently seen by a physician:. Pt reports just had hip surgery yesterday with Dr. Mcintyre, 2/2 rheumatoid arthritis, was not trauma. [place] fine, just feeling pain after surgery, not sent home with abx or pain meds, taking only tylenol. Began to feel bad, with muscle aches, cough, fever, chills last night. Denies drainage or increased pain from wound. No known sick contacts. . Historical: - Allergies: 01:42 Cymbalta; tw5 01:42 Savella; tw5 01:42 tramadol; tw5 - PMHx: 01:42 Bipolar disorder; Diabetes - NIDDM; Fibromyalgia; Rheumatoid Arthritis; tw5 - Immunization history:: Flu vaccine is up to date. - Social history:: Smoking status: Patient reports the use of cigarette tobacco products, smokes one-half pack cigarettes per day. - Family history:: not pertinent. - Hospitalizations: : Patient was recently seen at. ROS: 01:51 Constitutional: + fever and chills Eyes: Negative for injury, pain, redness, and radiology rn, ENT: + sore throat Neck: Negative for injury, pain, and swelling, Cardiovascular: Negative for chest pain, palpitations, and edema, Respiratory: + cough Abdomen/GI: Negative for abdominal pain, nausea, vomiting, diarrhea, and constipation, Back: Negative for injury and pain, MS/Extremity: + right hip pain s/p surgery Skin: + post-surgical wound Neuro: Negative for headache, numbness, tingling, and seizure. Exam: 01:51 Constitutional: This is a well developed, well nourished patient who is awake, rn somnolent, and in no acute distress. Head/Face: Normocephalic, atraumatic. Eyes: Periorbital areas with no swelling, redness, or edema. ENT: dry MM Neck: Trachea midline, no masses palpated, and no cervical lymphadenopathy. Supple, full range of motion without nuchal rigidity, or vertebral point tenderness. No Meningismus. Cardiovascular: tachycardic, regular Respiratory: No increased work of breathing, no retractions or nasal flaring. Abdomen/GI: soft, non-tender Skin: right lateral hip incision c/d/i, mild warmth but no significant erythema MS/ Extremity: Pulses equal, no cyanosis. Neuro: Awake and alert, GCS 15 Vital Signs: 01:32 BP 121 / 75; Pulse 103; Resp 17; Temp 99.2(O); Pulse Ox 97% on 2 lpm NC; Weight 92.99 tw5 kg; Height 5 ft. 5 in. (165.10 cm); Pain 8/10; 02:54 BP 117 / 76; Pulse 98; Resp 17; Pulse Ox 100% on R/A; kd3 04:54 BP 119 / 73; Pulse 97; Resp 18; Pulse Ox 100% on R/A; kd3 05:46 Pulse Ox 90% on R/A; kd3 06:51 BP 105 / 57; Pulse 98; Resp 16; Pulse Ox 91% on R/A; as6 01:32 Body Mass Index 34.11 (92.99 kg, 165.10 cm) tw5 MDM: 01:09 Patient medically screened. rn 05:14 ED course: No obvious source of fever found at this time, CT PE neg for PE but does rn show bilateral atelectasis, which could explain fever and drop in oxygen. . 05:34 Differential diagnosis: viral Infection, bacterial infection, URI, pneumonia UTI, rn atelectasis, PE, DVT, post-op fever. Data reviewed: vital signs, nurses notes, lab test result(s), radiologic studies, CT scan, plain films, ultrasound, and as a result, I will admit patient. Counseling: I had a detailed discussion with the patient and/or guardian regarding: the historical points, exam findings, and any diagnostic results supporting the discharge/admit diagnosis, lab results, radiology results, the need for further work-up and treatment in the hospital. Response to treatment: the patient's symptoms have mildly improved after treatment, and as a result, I will admit patient. Admission orders: after a detailed discussion of the patient's condition and case, the admit orders are written by me. ED course: Consulted with Dr. Mcintyre, will consult on patient later today, will admit to hospitalist for further eval for post-op fever. Atelectasis could explain this post-op fever, but patient reports increased pain to right hip, and 91% on RA. . 02/02 01:11 Order name: CBC with Diff 02/02 01:11 Order name: Basic Metabolic Panel 02/02 01:11 Order name: Blood Culture Adult (2) 02/02 01:11 Order name: Procalcitonin 02/02 01:11 Order name: Lactate 02/02 01:11 Order name: SARS-COV-2 RT PCR (Document "Date of Onset" if Symptomatic) 02/02 01:11 Order name: Flu 02/02 01:11 Order name: Urine Culture 02/02 01:11 Order name: Urine Drug Screen 02/02 01:11 Order name: Urine Microscopic Only 02/02 04:12 Order name: Urine Dipstick-Ancillary; Complete Time: 05:13 [facility] 02/02 05:25 Order name: CBC with Automated Diff; Complete Time: 05:32 [facility] 02/02 05:39 Order name: SARS-COV-2 RT PCR [facility] 02/02 05:41 Order name: Basic Metabolic Panel [facility] 02/02 01:11 Order name: XRAY Hip RIGHT 2 view rn 02/02 01:11 Order name: XRAY Chest (1 view) rn 02/02 01:56 Order name: Extrem Venous W Compression Nicholas US rn 02/02 05:41 Order name: Lactate [facility] 02/02 05:41 Order name: Urine Drug Screen [facility] 02/02 05:48 Order name: Procalcitonin [facility] 02/02 05:50 Order name: Influenza Screen (A [facility] 02/02 06:40 Order name: Urine Dipstick-Ancillary [facility] 02/02 07:25 Order name: Basic Metabolic Panel [facility] 02/02 07:25 Order name: Basic Metabolic Panel [facility] 02/02 07:25 Order name: CBC with Automated Diff [facility] 02/02 07:25 Order name: CBC with Automated Diff [facility] 02/02 07:25 Order name: Magnesium [facility] 02/02 07:25 Order name: Magnesium [facility] 02/02 08:43 Order name: Glucose, Ancillary Testing [facility] 02/02 11:42 Order name: Glucose, Ancillary Testing [facility] 02/02 01:11 Order name: IV Start; Complete Time: 02:06 rn 02/02 01:11 Order name: Urine Dipstick-Ancillary (obtain specimen); Complete Time: 04:13 rn 02/02 07:09 Order name: Chest For Pe Angio [facility] 02/02 07:20 Order name: CONS Physician Consult [facility] 02/02 07:25 Order name: Physical Therapy Consult [facility] 02/02 07:25 Order name: 60g Consistent Carbohydrate (ADA 1800/2000) [facility] 02/02 07:41 Order name: Extremity Nonvascular Complete [facility] Administered Medications: 02:49 Drug: NS 0.9% 1000 ml Route: IV; Rate: 1000 ml; Site: right antecubital; as6 10:20 Follow up: Response: No adverse reaction; IV Status: Completed infusion; IV Intake: ll1 1000ml Disposition Summary: 02/02/22 05:37 Hospitalization Ordered Hospitalization Status: Observation rn Condition: Stable rn Problem: new rn Symptoms: have improved rn Bed/Room Type: Standard rn Provider: David Burnett(02/02/22 06:50) rn Location: Telemetry/MedSurg (observation)(02/02/22 11:55) dw Room Assignment: 215(02/02/22 11:55) dw Diagnosis - Post-operative fever rn - Hypoxemia rn Forms: - Medication Reconciliation Form rn - SBAR form rn Signatures: Dispatcher [employer] Shirin Ramirez RN RN dw Nieto, Roman, MD MD rn [place], MyKena 2 Laura Mercado tw5 Salbador Cottrell RN RN as6 Christina Murphy RN ll1 Corrections: (The following items were deleted from the chart) 05:59 05:37 Telemetry/MedSurg (observation) rn mw2 05:59 05:37 rn mw2 06:50 05:37 Evelio Silverman rn rn 07:41 07:34 Extremity Nonvascular Limited ordered. EDMS EDMS 11:55 05:59 [facility] ER HOLD mw2 dw 11:55 05:59 ERHOLD- mw2 dw
--- NOTE | 2022-02-02 05:38 | ER ---
Nurse's Notes [facility] Name: Lashon Baca Age: 56 yrs Sex: Female : 1965 Arrival Date: 02/02/2022 Time: 01:09 Bed 5 Private MD: Diagnosis: Post-operative fever;Hypoxemia Presentation: 02/02 01:32 Chief complaint: EMS states: "She had hip replacement surgery in [place] yesterday tw5 morning. She had a fever upon arrival at 101.6. She took two Tylenol. We got called out for fever. Her oxygen upon arrival was 86 RA. We put 4L and she increased to 97. We applied three ice pack to her, under the arm pits and between the legs.". Coronavirus screen: Vaccine status: Patient reports receiving the 2nd dose of the covid vaccine. Moderna. Ebola Screen: Patient negative for fever greater than or equal to 101.5 degrees Fahrenheit, and additional compatible Ebola Virus Disease symptoms Patient denies exposure to infectious person. Patient denies travel to an Ebola-affected area in the 21 days before illness onset. Initial Sepsis Screen: Does the patient meet any 2 criteria? HR > 90 bpm. Does the patient have a suspected source of infection? Yes: Skin breakdown/wound. Risk Assessment: Do you want to hurt yourself or someone else? Patient reports no desire to harm self or others. Onset of symptoms was February 01, 2022 at 20:00. 01:32 Method Of Arrival: EMS: [facility] tw5 01:32 Acuity: KENNETH 3 tw5 Triage Assessment: 01:42 General: Appears uncomfortable, Behavior is cooperative, appropriate for age. Pain: tw5 Complains of pain in right hip Pain currently is 8 out of 10 on a pain scale. Historical: - Allergies: 01:42 Cymbalta; tw5 01:42 Savella; tw5 01:42 tramadol; tw5 - PMHx: 01:42 Bipolar disorder; Diabetes - NIDDM; Fibromyalgia; Rheumatoid Arthritis; tw5 - Immunization history:: Flu vaccine is up to date. - Social history:: Smoking status: Patient reports the use of cigarette tobacco products, smokes one-half pack cigarettes per day. - Family history:: not pertinent. - Hospitalizations: : Patient was recently seen at. Screenin:07 Abuse screen: Denies threats or abuse. Denies injuries from another. Nutritional kd3 screening: No deficits noted. Tuberculosis screening: No symptoms or risk factors identified. Fall Risk IV access (20 points). Assessment: 02:06 General: Appears uncomfortable, Behavior is calm, cooperative. Neuro: Level of kd3 Consciousness is awake, alert, obeys commands, Oriented to person, place, time, situation. Respiratory: Airway is patent Trachea midline Respiratory effort is even, unlabored, Respiratory pattern is regular, symmetrical. 02:54 Reassessment: Patient and/or family updated on plan of care and expected duration. Pain kd3 level reassessed. Patient is alert, oriented x 3, equal unlabored respirations, skin warm/dry/pink. 07:00 Reassessment: No changes from previously documented assessment. report received from ll1 slot shift supervisor RN. Vital Signs: 01:32 BP 121 / 75; Pulse 103; Resp 17; Temp 99.2(O); Pulse Ox 97% on 2 lpm NC; Weight 92.99 tw5 kg; Height 5 ft. 5 in. (165.10 cm); Pain 8/10; 02:54 BP 117 / 76; Pulse 98; Resp 17; Pulse Ox 100% on R/A; kd3 04:54 BP 119 / 73; Pulse 97; Resp 18; Pulse Ox 100% on R/A; kd3 05:46 Pulse Ox 90% on R/A; kd3 06:51 BP 105 / 57; Pulse 98; Resp 16; Pulse Ox 91% on R/A; as6 01:32 Body Mass Index 34.11 (92.99 kg, 165.10 cm) tw5 ED Course: 01:09 Patient arrived in ED. rn 01:09 Jarod Burnett MD is Attending Physician. rn 01:32 Salbador Cottrell RN is Primary Nurse. as6 01:41 Triage completed. tw5 01:42 Arm band placed on Patient placed in an exam room. tw5 02:06 SARS-COV-2 RT PCR (Document "Date of Onset" if Symptomatic) Sent. kd3 02:06 Flu Sent. kd3 02:06 Lactate Sent. kd3 02:06 Procalcitonin Sent. kd3 02:06 Blood Culture Adult (2) Sent. kd3 02:06 Basic Metabolic Panel Sent. kd3 02:06 CBC with Diff Sent. kd3 02:07 Patient has correct armband on for positive identification. kd3 02:07 Inserted saline lock: 20 gauge in right antecubital area, using aseptic technique. kd3 Blood collected. 02:07 No provider procedures requiring assistance completed. kd3 04:13 Urine Culture Sent. kd3 04:13 Urine Drug Screen Sent. kd3 04:13 Urine Microscopic Only Sent. kd3 05:37 Evelio Silverman MD is Hospitalizing Provider. rn 06:50 David Burnett MD is Hospitalizing Provider. rn 07:09 Chest For Pe Angio In Process Unspecified. EDMS 07:33 Primary Nurse role handed off by Salbador Cottrell, ETELVINA ll1 07:33 Christina Murphy, ETELVINA is Primary Nurse. ll1 07:40 Extrem Venous W Compression Nicholas US In Process Unspecified. EDMS 12:45 Patient admitted, IV remains in place. ll1 Administered Medications: 02:49 Drug: NS 0.9% 1000 ml Route: IV; Rate: 1000 ml; Site: right antecubital; as6 10:20 Follow up: Response: No adverse reaction; IV Status: Completed infusion; IV Intake: ll1 1000ml Medication: 02:07 VIS not applicable for this client. kd3 Intake: 10:20 IV: 1000ml; Total: 1000ml. ll1 Outcome: 05:37 Decision to Hospitalize by Provider. rn 12:45 Admitted to Tele accompanied by tech, via stretcher, room rm 215, with oxygen, with ll1 chart, Report called to Lindsay 12:45 Condition: stable 12:45 Instructed on the need for admit. 12:47 Patient left the ED. ll1 Signatures: Dispatcher [employer] EDMS Jarod Burentt MD MD rn Lewis, Lynsay RN RN ll1 Laura Mercado tw5 Salbador Cottrell RN RN as6 Nery Chu RN RN kd3 Corrections: (The following items were deleted from the chart) 01:54 01:53 NS 0.9% 1000 ml IV at 1000 ml in left antecubital as6 as6
[2022-02-02] MEDS ORDERED: ACETAMINOPHEN 500 MG TAB PO PRN (07:21)
[2022-02-02] MEDS ORDERED: ONDANSETRON 4 MG/2 ML VIAL IV PRN (07:21)
[2022-02-02] MEDS: INSULIN -REGULAR HUMAN 50 UNIT/0.5 ML ML SQ SCH ×4 (07:30→21:00)
--- NOTE | 2022-02-02 07:36 | P.HP ---
Certification for Inpatient Patient admitted to: Observation With expected LOS: <2 Midnights Practitioner: I am a practitioner with admitting privileges, knowledge of patient current condition, hospital course, and medical plan of care. Services: Services provided to patient in accordance with Admission requirements found in Title 42 Section 412.3 of the Code of Federal Regulations Patient History Date of Service: 02/02/22 Primary Care Provider: Dr. Hays Reason for admission: post-op fever History of Present Illness: 56yo F, PMH: RA, fibromyalgia, NIDDM2, bipolar Presents to ED due to fever and not feeling well. Patient underwent right hip replacement surgery by Dr. Reis in [place] on 01/31. She was discharged home and was doing ok until last night. She felt general weakness and tired. Reportedly had fever at home and EMS was called. On assessment by EMS, she was noted to have fever of 101.6 and took tylenol. On EMS arrival she was noted to be hypoxic to 86% on room air which improved with O2. She reports some increase in pain of her right hip since getting home. In the ED, BP ok, Temp: 99.2, slight tacycardic. CTA negative for PE, noted possible atelectasis. Arterial and venous ultrasound normal of right leg. Dr. Reis contacted by ED physician, recommends admission to hospitalist service and he will see patient in consult today. covid negative, flu negative, UA negative Allergies duloxetine [From Cymbalta] Allergy (Verified 02/02/22 07:46) UNK milnacipran [From Savella] Allergy (Verified 02/02/22 07:46) UNK tramadol [From Ultram] Allergy (Verified 02/02/22 07:46) UNK - Past Medical/Surgical History -: RA -: NIDDM2 -: Fibromyalgia -: R hip replacement - Family History Family History: Reviewed- Non-Contributory - Social History Smoking Status: Current every day smoker Alcohol use: No Place of Residence: Home Review of Systems 10-point ROS is otherwise unremarkable Physical Examination - Physical Exam General: Other (mild somnolence) HEENT: EOMI, Sclerae nonicteric Respiratory: Clear to auscultation bilaterally Cardiovascular: No edema, Regular rate/rhythm Gastrointestinal: Soft and benign, Non-distended, No tenderness Integumentary: Other (dressing c/d/i, no erythema around incision, no drainage, mild swelling ) Neurological: Normal strength at 5/5 x4 extr (RLE limited due to discomfort), Other (mild somnolence) - Studies Laboratory Data (last 24 hrs) 02/02/22 01:58: Sodium 136, Potassium 4.1, BUN 12, Creatinine 0.83, Glucose 223 H 02/02/22 01:58: WBC 12.1 H, Hgb 10.0 L, Hct 29.4 L, Plt Count 205 Microbiology Data (last 24 hrs): 02/02/22 01:58 Nasopharnyx Influenza Type A Antigen Screen - Final 02/02/22 01:58 Nasopharnyx Influenza Type B Antigen Screen - Final Assessment and Plan - Advance Directives Does patient have a Living Will: No Does patient have a Durable POA for Healthcare: No Physician Review Additional Text: Problem List Post-op fever, unknown source recent R hip repair RA NIDDM2 HTN Hypothyroidism fibromyalgia unclear source of fever CTA negative for PE, with some linear changes - possibly atelectasis vs old scarring atelectasis could lead to post-op fever, but EMS recorded up to 101.6 pt with productive sputum as well, covid negative, denies sick contacts mildy elevated procal slight increased soreness/pain in R surgical site, denied rashes ROS otherwise negative unlikely due to medication, DVT ruled out, urine clear most likely atelectasis vs infection empiric unasyn/azithro to cover for pneumonia and strep coverage check U/S to r/o fluid collection - no erythema/drainage of wound, pt reports she had a drain initially post-op Ortho consulted in ED, to see patient today incentive spirometry Code: DNR Dispo: home, 1-2 days Time Spent Managing Pts Care (In Minutes): 65
[2022-02-02] MEDS: NA CHLORIDE 0.9% 1,000 ML IV SCH ×2 (08:00→21:00)
[2022-02-02] MEDS ORDERED: NA CHLORIDE 0.9% 0 ML ONE (08:25)
[2022-02-02] MEDS ORDERED: CODEINE 30MG/APAP 300MG TAB ONE (08:25)
[2022-02-02] MEDS ORDERED: AMPICILLIN/SULBACTAM 3GM/VIAL ONE (08:25)
[2022-02-02] MEDS ORDERED: NA CHLORIDE 0.9% 250 ML ONE ×2 (08:26→09:41)
[2022-02-02] MEDS: CODEINE 30MG/APAP 300MG TAB PO PRN (08:39)
[2022-02-02] MEDS ORDERED: AMPICILLIN/SULBACT 3 GM in NA CHLORIDE 0.9% 100 ML IVPB SCH (09:00)
--- NOTE | 2022-02-02 09:17 | RAD REPORT ---
EXAM DESCRIPTION: US - Extremity Nonvascular Complete - 02/02/2022 8:01 am CLINICAL HISTORY: eval post-op fluid collection Pain and swelling COMPARISON: Extrem Venous W Compress Nicholas dated 02/02/2022 TECHNIQUE: Real-time sonographic evaluation of the area of interest right hip region was performed. FINDINGS: Small amount of fluid is seen in the soft tissues/subcutaneous tissues in the region of in terest. This is likely a simple and edematous fluid. There is no loculated fluid collection to suspec t an abscess at this time.
[2022-02-02] MEDS ORDERED: AZITHROMYCIN 500 MG INJ IVPB ONE (09:41)
[2022-02-02 10:09] VITALS: BMI 34.1
[2022-02-02] MEDS: AZITHROMYCIN IV 500 MG in NA CHLORIDE 0.9% 250 ML IVPB SCH (10:46)
--- NOTE | 2022-02-02 12:38 | RAD REPORT ---
EXAM DESCRIPTION: Chest For Pe Angio CLINICAL HISTORY: 56 years, Female, Recent Orthopedic Surgery; Fever; Hypoxemia; R/O PE COMPARISON: None. TECHNIQUE: Axial images through the chest were performed after the administration of intravenous con trast using a pulmonary embolus protocol. MIPS were performed. This exam was performed according to our departmental dose-optimization program which includes use of Automated Exposure Control, adjustm ent of the mA and/or kV according to patient size and/or use of iterative reconstruction technique. FINDINGS: No pulmonary embolus is identified. Thoracic aorta is unremarkable. Cardiac chambers are normal in size. No coronary calcifications. No pericardial effusion. No pleural effusion. No focal lung consolidation. Streaky linear opacities scattered throughout both lungs may related to atelectasis or parenchymal scarring. No pneumothorax. Patent central airway. Soft tissues are unremarkable. No acute osseous findings. No acute abnormality within the visualized upper abdomen. IMPRESSION: Negative for pulmonary embolism. Streaky linear opacities bilaterally suggestive of subsegmental atelectasis versus parenchymal scarri ng. No confluent areas of consolidation to suggest pneumonia. Electronically signed by: Toñito Delgado DO 02/02/2022 5:07 AM CDT Due to temporary technical issues with the PACS/Fluency reporting system, reports are being signed by the in house radiologists without review as a courtesy to insure prompt reporting. The interpreting radiologist is fully responsible for the content of the report.
--- NOTE | 2022-02-02 12:47 | RAD REPORT ---
EXAM DESCRIPTION: Chest x-ray Single View CLINICAL HISTORY 6 years Female, Surgery, Fever, Cough COMPARISON: CTA performed same day FINDINGS: Linear opacities in the central lung zones bilaterally. Decreased lung volumes. No pleural effusion. No pneumothorax. Cardiac and mediastinal silhouette is unremarkable. No acute osseous abnormality. Soft tissues are unremarkable. IMPRESSION: Subsegmental atelectasis bilaterally and decreased lung volumes. Electronically signed by: Toñito Delgado DO 02/02/2022 5:08 AM CDT Due to temporary technical issues with the PACS/Fluency reporting system, reports are being signed by the in house radiologists without review as a courtesy to insure prompt reporting. The interpreting radiologist is fully responsible for the content of the report.
--- NOTE | 2022-02-02 12:48 | RAD REPORT ---
EXAM DESCRIPTION: X-ray right hip 2 views CLINICAL HISTORY: 56 years Female, Surgery COMPARISON: None. FINDINGS: No fracture or dislocation. The patient's had a right hip arthroplasty. The hardware appears well seated and in normal alignment. Expected postsurgical changes in the adjacent soft tissues. Soft tissues are unremarkable. IMPRESSION: No acute abnormality. Right hip arthroplasty in normal alignment. Electronically signed by: Toñito Delgado DO 02/02/2022 5:07 AM CDT Due to temporary technical issues with the PACS/Fluency reporting system, reports are being signed by the in house radiologists without review as a courtesy to insure prompt reporting. The interpreting radiologist is fully responsible for the content of the report.
--- NOTE | 2022-02-02 12:50 | RAD REPORT ---
EXAM DESCRIPTION: US EXTREMITY VEINS BILATERAL CLINICAL HISTORY: PAIN COMPARISON: None. TECHNIQUE: US EXTREMITY VEINS BILATERAL 02/02/2022 3:33 AM CDT FINDINGS: Bilateral common femoral, femoral and popliteal veins are normally compressible with paten t flow and augmentation. Visualized calf veins are patent. IMPRESSION: No DVT. Electronically signed by: Nader Pace MD 02/02/2022 3:56 AM CDT Due to temporary technical issues with the PACS/Fluency reporting system, reports are being signed by the in house radiologists without review as a courtesy to insure prompt reporting. The interpreting radiologist is fully responsible for the content of the report.
[2022-02-02] MEDS: AMPICILLIN/SULBACT 3 GM in NA CHLORIDE 0.9% 100 ML IVPB SCH (16:33)
[2022-02-02 17:21] LABS: Urine Bacteria <20 /HPF (<20); Urine RBC <5 /HPF (None Seen)
--- NOTE | 2022-02-02 19:30 | P.CNS ---
Date of Consult: 02/02/22 Reason for Consult: fever pos op Primary Care Provider: Dr. Hays Chief Complaint: post-op fever History of Present Illness: s/p right total hip post op day [address] [facility]. she was admittewith post op fever 102 a home, she was also having some issues with pain control. Allergies duloxetine [From Cymbalta] Allergy (Verified 02/02/22 07:46) UNK milnacipran [From Savella] Allergy (Verified 02/02/22 07:46) UNK tramadol [From Ultram] Allergy (Verified 02/02/22 07:46) UNK - Past Medical/Surgical History Diabetic: Yes -: RA -: NIDDM2 -: Fibromyalgia -: RA -: R hip replacement - Social History Smoking Status: Current every day smoker Alcohol use: No Place of Residence: Home Physical Examination Temp Pulse Resp BP Pulse Ox 97.1 F 88 18 121/75 100 02/02/22 16:00 02/02/22 16:00 02/02/22 16:00 02/02/22 16:00 02/02/22 16:00 General: Alert, In no apparent distress HEENT: Atraumatic Neck: Supple Respiratory: Normal air movement Cardiovascular: No edema Capillary refill: <2 Seconds Musculoskeletal: Other (dressing right hip clean dry and intact) Laboratory Data (last 24 hrs) 02/02/22 01:58: Sodium 136, Potassium 4.1, BUN 12, Creatinine 0.83, Glucose 223 H 02/02/22 01:58: WBC 12.1 H, Hgb 10.0 L, Hct 29.4 L, Plt Count 205 Conclusions/Impression: pos op fever with atalectasis, resolved with pulmonary toilet, spoke to hospitalist, she can be discharged
[2022-02-02] MEDS ORDERED: MORPHINE 2 MG/ML SYR IV ONE (20:39)
[2022-02-03] MEDS: AMPICILLIN/SULBACT 3 GM in NA CHLORIDE 0.9% 100 ML IVPB SCH ×2 (00:50→08:14)
[2022-02-03 03:51] LABS: Absolute Lymphocytes (CBC) 1.4 K/uL (0.7-4.9); Hematocrit 25.4 % (36.0-45.0); Lymphocytes % 14.9 % (15.3-44.8); MCV 91.4 fL (80-100); MPV 9.1 fL (7.6-11.3); RBC Red Blood Cell Count 2.77 M/uL (3.86-4.86)
[2022-02-03 03:55] LABS: Potassium 3.9 mmol/L (3.5-5.1)
[2022-02-03] MEDS: INSULIN -REGULAR HUMAN 50 UNIT/0.5 ML ML SQ SCH ×2 (07:30→11:30)
[2022-02-03] MEDS: CODEINE 30MG/APAP 300MG TAB PO PRN (08:15)
--- NOTE | 2022-02-03 08:40 | RAD REPORT ---
EXAM DESCRIPTION: RAD - Chest Single View - 02/03/2022 5:48 am CLINICAL HISTORY: shortness of breath Chest pain. COMPARISON: Chest Single View dated 02/02/2022; Chest Single View dated 06/28/2021 FINDINGS: Portable technique limits examination quality. Mild subsegmental atelectasis is present both lung bases. The lungs are otherwise grossly clear of ac leyda infiltrate. The heart is normal in size. No displaced fractures.
[2022-02-03] MEDS ORDERED: POTASSIUM CL SA 10 MEQ TAB PO ONE (09:00)
[2022-02-03 09:54] VITALS: O2SAT 95
[2022-02-03] MEDS: AZITHROMYCIN IV 500 MG in NA CHLORIDE 0.9% 250 ML IVPB SCH (10:55)
[2022-02-03 12:42] VITALS: BP 143/76; TEMP 98.4
--- OUTSIDE RECORDS SUMMARY | 2022-02-03 14:59 | XMS REPORT | Continuity of Care Document ---
:[address] [facility] t Address [address] [place] [address] Care Team Providers Name Role Phone Toñito Hays MD Primary Care Physician [phone] Mrs Billy Attending Clinician Unavailable Semaj Claros Attending Clinician Unavailable Semaj Claros Attending Clinician Unavailable Yumiko ALANIS Attending Clinician Unavailable Martha Saul MD Attending Clinician Bandar MAIN Attending Clinician Unavailable Martha SAUL Attending Clinician Unavailable Doctor Unassigned, Name Attending Clinician Unavailable Only, Test Attending Clinician Unavailable YVON CURRIE Attending Clinician Unavailable Alvino Dinero Attending Clinician Unavailable Alvino Dinero Attending Clinician Unavailable Semaj Claros Admitting Clinician Unavailable Martha SAUL Admitting Clinician Unavailable Payers Payer Name Policy Type Policy Number Effective Date Expiration Date S [facility] [id number] 2019 2020 [facility] [place] [place] star 00:00:00 00:00:00 progam [705] WE[employer]/UHC DUAL [id number] 2020 COMP HMO D SNP 00:00:00 [facility] [id number] 2022 MEDICAID 00:00:00 Problems Condition Condition Condition Status Onset Resolution Last Treating Co mments Source Name Details Category Date Date Treatment Clinician Date Hip Hip Disease Active Univers osteoarthr osteoarthr 7-18 it y of itis itis 00:00: [place] 00 Medical Branch Obesity Obesity Disease Active Univers (BMI (BMI 7-15 ity of 30-39.9) 30-39.9) 00:00: [place] 00 Medical Branch Primary Primary Disease Active Overview: Univ ers osteoarthr osteoarthr 6-30 Formattin ity of itis of itis of 00:00: g of this [place] right hip right hip 00 note Medi danish might be Branch different from the original. Added automatic ally from request for surgery [id number] Type 2 Type 2 Disease Active Univers diabetes diabetes 03-18 ity of mellitus mellitus 00:00: [place] without without 00 Medical complicati complicati Br anch on, on, without without long-term long-term current current use of use of insulin insulin Thyroid Thyroid Disease Active Univers nodule nodule 03-18 ity of 00:00: [place] 00 Medical Branch Dyslipidem Dyslipidem Disease Active U nivers ia ia 03-18 ity of 00:00: [place] [facility] Carpal Carpal Disease Active Univers tunnel tunnel 6-24 ity of syndrome syndrome 00:00: [place] of right of right 00 Medica l wrist wrist Branch Ganglion Ganglion Disease Active Unive rs cyst cyst 6-24 ity of 00:00: [place] 00 Medical Branch Tenosynovi Tenosynovi Disease Active 2017-07 U nivers tis of tis of 2-15 ity of right hand [place] 00:[place] 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 Sleep Sleep Disease Active 2017-07 Univers apnea apnea 07-22 ity of 00:00: [place] 00 Medical Branch Vitamin D Vitamin D Disease Active 2017-07 Uni vers deficiency deficiency 07-22 it y of 00:00: [place] 00 Medical Branch Depressed Depressed Disease Active Uni vers bipolar bipolar 03-04 ity of disorder disorder 00:00: [place] 00 Medical Branch Fibromyalg Fibromyalg Disease Active U nivers ia ia 03-04 ity of 00:00: [place] [facility] Silas Silas Disease Active Uni 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-04 it y of s, fibrous s, fibrous 00:[place] variant variant 00 Medical Branch Rheumatoid Rheumatoid Disease Active U nivers arthritis arthritis 03-04 ity of 00:00: [place] 00 Medical Branch Allergies, Adverse Reactions, Alerts Allergy Allergy Status Severity Reaction(s) Onset Inactive Treating Comm ents Source Name Type Date Date Clinician Tramadol Propensi Active Itching 2021- Unive rs ty to 6- ity of adverse 00:00: [place] reaction 00 [facility] s Branch TRAMADOL DRUG Active ITCHING 2021-0 Univers INGREDI 6-22 ity of 00:00: [place] 00 Medical Branch EDOXABAN DRUG Active High Rash 2020-0 Univers TOSYLATE INGREDI 7-20 ity of 00:00: [place] 00 Medical Branch DULOXETI DRUG Active Med Rash 2020-0 Univers NE HCL INGREDI 7-20 ity of 00:00: [place] 00 Medical Branch MILNACIP DRUG Active Med Other-Cmnt 2020-0 Univ ers RAN HCL INGREDI 7-20 ity of 00:00: [place] 00 Medical Branch Duloxeti Drug Active Rash 2021-0 Univers ne Hcl Allergy 7-20 ity of 00:00: [place] 00 Medical Branch Edoxaban Drug Active Rash 2020-0 Univers Tosylate Allergy 7-20 ity of 00:00: [place] 00 Medical Branch Milnacip Drug Active Other - See 2020- Uni vers ran Hcl Allergy comments 7-20 ity of 00:00: [place] 00 Medical Branch lactose DA Active [facility] 7[facility] [place] 00:00: [facility] duloxeti DA Active SD [facility] ne [facility] [place] 00:00: [facility] Cymbalta Drug Active [facility] Savella Drug Active [facility] Drug Active [facility] [facility] Drug Active Medical [facility] Drug Active Medical [facility] Drug Active Medical [facility] Social History Social Habit Start Date Stop Date Quantity Comments Source History Critical access hospital o f Alcohol Frequency [facility] [place] [facility] edical Branch History Critical access hospital o f Alcohol Std Drinks [place] [facility] [place] History Critical access hospital o f Alcohol Binge [place] [facility] al Branch Alcohol intake 2022-02-01 2022-02-01 Current drinker Unive rsity of 00:00:00 00:00:00 of alcohol [facility] (finding) Branch Exposure to 2022-01-21 2022-01-31 Not sure University of SARS-CoV-2 (event) 00:00:00 07:25:00 [facility] Tobacco Comment 2022-01-25 2022-01-25 occasional Universit y of 00:00:00 00:00:00 [facility] Cigarettes smoked 2022-01-25 2022-01-25 Univers ity of current (pack per 00:00:00 00:00:[address] [facility] ) - Reported Branch Cigarette 2022-01-25 2022-01-25 University of pack-years 00:00:00 00:00:00 [facility] Tobacco use and 2022-01-25 2022-01-25 User of smokeless Un iversity of exposure 00:00:00 00:00:[address] [facility] Alcohol Comment 2021-02-02 2021-02-02 socially Universit y of 00:00:00 00:00:00 [facility] History of tobacco 1993-02-02 Passive smoker Un iversity of use 00:00:00 [facility] Sex Ass[birth year] At [birth year] Universit y of 00:00:00 00:00:00 [facility] Smoking Status Start Date Stop Date Source Ex-smoker 2022-01-25 00:00:00 2022-01-25 00:00:[address] [facility] Medications Ordered Filled Start Stop Current Ordering Indication Dosage Frequency Signature Comments Components Source Medication Medication Date Date Medication? Clinician (SIG) Name Name enoxaparin 2021- No 30mg 30 mg, Univ ers (LOVENOX) 7-19 07-19 Subcutaneo ity of injection 14:00: 03:28 [place], Q12H, [place] 30 mg 00 :27 56 doses, Medical First dose Branch on Mon02/01/22 at 0900, Last dose on [facility] 02/28/22 at 2000, Routine pantoprazol No 40mg 40 mg, Uni vers e 02-01 Oral, QAM, ity of (PROTONIX) 14:00: 03:28 First dose [place] EC tablet 00 :27 on [facility] 40 mg 02/01/22 at Branch 0900, Until Discontinu ed, Routine levothyroxi No 50ug 50 mcg, Un david ne 02-01 Oral, ity of (SYNTHROID) 11:00: 03:28 QAM-0600, [place] tablet 50 00 :27 First dose Medi danish mcg on [facility] 02/01/22 at 0600, Until Discontinu ed, Routine simvastatin No 40mg 40 mg, Uni vers (ZOCOR) 02-01 Oral, QHS, ity o f tablet 40 02:00: 03:28 First dose [place] mg 00 :27 on [facility] 01/31/22 at Branch 2100, Until Discontinu ed, Routine SERTraline No 50mg 50 mg, [facility] ers (ZOLOFT) 02-01 Oral, QHS, ity of tablet 50 02:00: 03:28 First dose [place] mg 00 :27 on [facility] 01/31/22 at Branch 2100, Until Discontinu ed, Routine QUEtiapine No 100mg 100 mg, Un david (SEROQUEL) 02-01 Oral, QHS, it y of tablet 100 02:00: 03:28 First dose [place] mg 00 :27 on [facility] 01/31/22 at Branch 2100, Until Discontinu ed, Routine lamoTRIgine No 200mg 200 mg, U nivers (LAMICTAL) 02-01 Oral, QHS, it y of tablet 200 02:00: 03:28 First dose [place] mg 00 :27 on [facility] 01/31/22 at Branch 2100, Until Discontinu ed, Routine docusate 2021- No 100mg 100 mg, Univ ers (COLACE) 02-01 Oral, ity of capsule 100 01:00: 03:28 Q12H, [place] mg 00 :27 First dose Medical on [facility] 01/31/22 at 2000, Until Discontinu ed, Routine metFORMIN No 500mg 500 mg, Uni vers (GLUCOPHAGE 01-31 Oral, BID it y of ) tablet 22:00: 03:28 MEALS, [place] 500 mg 00 :27 First dose Medical on [facility] 01/31/22 at 1700, Until Discontinu ed gabapentin No 300mg 300 mg, Un david (NEURONTIN) 01-31 Oral, TID, i ty of capsule 300 19:00: 03:28 First dose [place] mg 00 :27 on [facility] 01/31/22 at Branch 1400, Until Discontinu ed, Routine HYDROcodone 2021- No 1{tbl} 1 tablet, Univers -acetaminop 01-31 Oral, ity of hen (NORCO 17:45: 19:41 ONCE, 1 [place] as 5) 5-325 mg 00 :00 dose, On Medi danish tablet 1 [facility] tablet 01/31/22 at 1245, Routine, PACU ondansetron No 4mg 4 mg, Slow Univers (ZOFRAN 01-31 IV Push, ity of (PF)) 17:33: 03:28 PRN, 1 [place] injection 4 07 :27 dose, Medical mg Starting Branch on Mon01/31/22 at 1233, Until Mon01/31/22 at 2228, Routine, Nausea and Vomiting (N/V), PACU FENTanyl PF No 25ug 25 mcg, Un david (SUBLIMAZE 01-31 Slow IV ity o f (PF)) 17:33: 18:59 Push, [place] injection 07 :00 Q5MIN PRN, Medi danish 25 mcg 4 doses, Branch Starting on Mon01/31/22 at 1233, Until Mon01/31/22 at 1359, Routine, Pain (scale 4-6), PACU bupivacaine No PRN, Unive rs (preserv 01-31 Starting ity of free) 15:41: 19:03 on Mon [place] (SENSORCAIN 00 :07 01/31/22 at Ne dical E MPF) 0.25 1041, Branch % (2.5 Intra-op mg/mL) 30 mL, bupivacaine liposome (PF) (EXPAREL (PF)) 1.3 % (13.3 mg/mL) 266 mg, NaCl 0.9% (NS) 70 mL sodium 2021- No PRN, Univers chloride 01-31 Starting ity of 0.9 % 15:14: 19:03 on Mon [place] irrigation 00 :07 01/31/22 at [facility] ical solution 1014, Branch Until Mon01/31/22 at 1403, Intra-op morpHINE (4 No 4mg 4 mg, Slow Univers mg/mL) 01-31 IV Push, ity of injection 4 15:06: 03:28 Q4HPRN, [place] mg 29 :27 Starting Medical on Mon [place] 01/31/22 at 1006, Until Mon01/31/22 at 2228, Routine, For pain unrelieved by oral medication s, or if patient is unable to tolerate oral pain medication . ondansetron No 4mg 4 mg, Slow Univers (ZOFRAN 01-31 IV Push, ity of (PF)) 15:05: 03:28 Q6HPRN, [place] injection 4 58 :27 Starting Medi danish mg on Mon [place] 01/31/22 at 1005, Until Mon01/31/22 at 2228, Routine, Nausea and Vomiting (N/V) oxyCODONE-a 2021- No 2{tbl} 2 tablet, Univers cetaminophe 01-31 Oral, ity of n 12:15: 13:01 ONCE, 1 [place] (PERCOCET) 00 :00 dose, On Medic al 5-325 mg Mon [place] per tablet 01/31/22 at 2 tablet 0715, Routine, DSU Pre-op celecoxib 2021- No 400mg 400 mg, Uni vers (CELEBREX) 01-31 Oral, ity of capsule 400 12:15: 13:01 ONCE, 1 [place] mg 00 :00 dose, On Medical Mon Branch 01/31/22 at 0715, Routine, DSU Pre-op gabapentin 2021- No 300mg 300 mg, Un david (NEURONTIN) 01-31 Oral, ity of capsule 300 12:15: 12:59 ONCE, 1 [place] mg 00 :00 dose, On Medical Mon Branch 01/31/22 at 0715, Routine, DSU Pre-op acetaminoph 2021-0 Yes [id number] 2{tbl} Take 2 Un david en-codeine 7-18 tablets by ity of (TYLENOL-CO 00:00: mouth [place] DEINE #3) 00 every 6 Medical 300-30 mg (six) Branch tablet hours as needed for Pain (scale 4-6) or Pain (scale 7-10). Indication s: acute pain acetaminoph 2021-0 Yes [id number] 2{tbl} Take 2 Un david en-codeine 7-18 tablets by ity of (TYLENOL-CO 00:00: mouth [place] DEINE #3) 00 every 6 Medical 300-30 mg (six) Branch tablet hours as needed for Pain (scale 4-6) or Pain (scale 7-10). Indication s: acute pain acetaminoph 2021-0 Yes 4647 2{tbl} Take 2 Un david en-codeine 7-18 tablets by ity of (TYLENOL-CO 00:00: mouth [place] DEINE #3) 00 every 6 Medical 300-30 mg (six) Branch tablet hours as needed for Pain (scale 4-6) or Pain (scale 7-10). Indication s: acute pain acetaminoph 2021-0 Yes 4647 2{tbl} Take 2 Un david en-codeine 7-18 tablets by ity of (TYLENOL-CO 00:00: mouth [place] DEINE #3) 00 every 6 Medical 300-30 mg (six) Branch tablet hours as needed for Pain (scale 4-6) or Pain (scale 7-10). Indication s: acute pain rivaroxaban 0 2021- Yes 1480 10mg Take 1 Uni vers (XARELTO) 01-31 08-16 tablet by ity of 10 mg 00:00: 04:59 mouth in [place] tablet 00 :00 the Medical morning Branch for 28 days. Indication s: deep vein thrombosis prevention in hip surgery rivaroxaban 2021-0 2021- Yes 1480 10mg Take 1 Uni vers (XARELTO) 01-31-16 tablet by ity of 10 mg 00:00: 04:59 mouth in [place] tablet 00 :00 the Medical morning Branch for 28 days. Indication s: deep vein thrombosis prevention in hip surgery rivaroxaban 2021-0 2021- Yes 1480 10mg Take 1 Uni vers (XARELTO) 01-31-16 tablet by ity of 10 mg 00:00: 04:59 mouth in [place] tablet 00 :00 the Medical morning Branch for 28 days. Indication s: deep vein thrombosis prevention in hip surgery rivaroxaban 2021-2021- Yes 1480 10mg Take 1 Uni vers (XARELTO) 01-31-16 tablet by ity of 10 mg 00:00: 04:59 mouth in [place] tablet 00 :00 the Medical morning Branch for 28 days. Indication s: deep vein thrombosis prevention in hip surgery acetaminoph 2021-2021- No Unive rs en-codeine 12-31-18 ity of 300-30 mg 00:00: 00:00 [place] tablet 00 :00 Medical Branch acetaminoph 2021-0 2021- No Unive rs en-codeine 12-31-18 ity of 300-30 mg 00:00: 00:00 [place] tablet 00 :00 Medical Branch hydrOXYzine 2022-0 Yes 25mg Take 25 mg Univers 25 mg 6-13 by mouth 2 ity of tablet 00:00: (two) [place] 00 times Medical daily as Branch needed. hydrOXYzine 2022-0 Yes 25mg Take 25 mg Univers 25 mg 6-13 by mouth 2 ity of tablet 00:00: (two) [place] 00 times Medical daily as Branch needed. hydrOXYzine 2022-0 Yes 25mg Take 25 mg Univers 25 mg 6-13 by mouth 2 ity of tablet 00:00: (two) [place] 00 times Medical daily as Branch needed. hydrOXYzine 2022-0 Yes 25mg Take 25 mg Univers 25 mg 6-13 by mouth 2 ity of tablet 00:00: (two) [place] 00 times Medical daily as Branch needed. hydrOXYzine 2022-0 Yes 25mg Take 25 mg Univers 25 mg 6-13 by mouth 2 ity of tablet 00:00: (two) [place] 00 times Medical daily as Branch needed. gabapentin 2022-0 Yes [id number] 300mg Take 1 Univers 300 mg 4-21 capsule by ity of capsule 00:00: mouth 3 [place] 00 (three) Medical times Branch daily. gabapentin 2022-0 Yes [id number] 300mg Take 1 Univers 300 mg 4-21 capsule by ity of capsule 00:00: mouth 3 [place] 00 (three) Medical times Branch daily. gabapentin 2022-0 Yes [id number] 300mg Take 1 Univers 300 mg 4-21 capsule by ity of capsule 00:00: mouth 3 [place] 00 (three) Medical times Branch daily. gabapentin 2022-0 Yes [id number] 300mg Take 1 Univers 300 mg 4-21 capsule by ity of capsule 00:00: mouth 3 [place] 00 (three) Medical times Branch daily. gabapentin 2022-0 Yes [id number] 300mg Take 1 Univers 300 mg 4-21 capsule by ity of capsule 00:00: mouth 3 [place] 00 (three) Medical times Branch daily. adalimumab 2022-0 Yes [id number] 40mg inject 1 Univers (HUMIRA,CF, 4 [id number] Pen under i ty of PEN) 40 00:00: the skin [place] mg/0.4 mL 00 every 14 Medica l injection (fourteen) Bran ch days. adalimumab 2022-0 Yes [id number] 40mg inject 1 Univers (HUMIRA,CF, 10-25 [id number] Pen under i ty of PEN) 40 00:00: the skin [place] mg/0.4 mL 00 every 14 Medica l injection (fourteen) Bran ch days. adalimumab 2022-0 Yes [id number] 40mg inject 1 Univers (HUMIRA,CF, 4 [id number] Pen under i ty of PEN) 40 00:00: the skin [place] mg/0.4 mL 00 every 14 Medica l injection (fourteen) Bran ch days. adalimumab 2022-0 Yes [id number] 40mg inject 1 Univers (HUMIRA,CF, 4- [id number] Pen under i ty of PEN) 40 00:00: the skin [place] mg/0.4 mL 00 every 14 Medica l injection (fourteen) Bran ch days. adalimumab 2022-0 Yes [id number] 40mg inject 1 Univers (HUMIRA,CF, 4-11 [id number] Pen under i ty of PEN) 40 00:00: the skin [place] mg/0.4 mL 00 every 14 Medica l injection (fourteen) Bran ch days. blood sugar Yes [id number] Use as Univers diagnostic 2-15 directed ity o f (ACCU-CHEK 00:00: to check [place] as GUIDE TEST 00 blood Medical STRIPS) sugar once Branch strip daily E11.9 Lancets Yes [id number] Use as Uni vers (ACCU-CHEK 2-15 directed ity o f SOFTCLIX 00:00: to check [place] LANCETS) 00 blood Medical Misc sugar once Branch daily E11.9 blood sugar Yes [id number] Use as Univers diagnostic 2-15 directed ity o f (ACCU-CHEK 00:00: to check [place] as GUIDE TEST 00 blood Medical STRIPS) sugar once Branch strip daily E11.9 Lancets Yes [id number] Use as Uni vers (ACCU-CHEK 2-15 directed ity o f SOFTCLIX 00:00: to check [place] LANCETS) 00 blood Medical Misc sugar once Branch daily E11.9 blood sugar 0 Yes [id number] Use as Univers diagnostic 2-15 directed ity o f (ACCU-CHEK 00:00: to check [place] as GUIDE TEST 00 blood Medical STRIPS) sugar once Branch strip daily E11.9 Lancets 2021-0 Yes [id number] Use as Uni vers (ACCU-CHEK 2-15 directed ity o f SOFTCLIX 00:00: to check [place] LANCETS) 00 blood Medical Misc sugar once Branch daily E11.9 blood sugar 0 Yes [id number] Use as Univers diagnostic 2-15 directed ity o f (ACCU-CHEK 00:00: to check [place] as GUIDE TEST 00 blood Medical STRIPS) sugar once Branch strip daily E11.9 Lancets 2021- Yes [id number] Use as Uni vers (ACCU-CHEK 2-15 directed ity o f SOFTCLIX 00:00: to check [place] LANCETS) 00 blood Medical Misc sugar once Branch daily E11.9 blood sugar Yes [id number] Use as Univers diagnostic 2-15 directed ity o f (ACCU-CHEK 00:00: to check [place] as GUIDE TEST 00 blood Medical STRIPS) sugar once Branch strip daily E11.9 Lancets Yes [id number] Use as Uni vers (ACCU-CHEK 2-15 directed ity o f SOFTCLIX 00:00: to check [place] LANCETS) 00 blood Medical Misc sugar once Branch daily E11.9 metformin 2021-0 Yes [id number] 1000mg Take 2 Univers ER 500 mg 2-08 tablets by ity of 24 hr 00:00: mouth [place] tablet 00 daily with Medical breakfast. Branch metformin Yes [id number] 1000mg Take 2 Univers ER 500 mg 2-08 tablets by ity of 24 hr 00:00: mouth [place] tablet 00 daily with Medical breakfast. Branch metformin Yes [id number] 1000mg Take 2 Univers ER 500 mg 2-08 tablets by ity of 24 hr 00:00: mouth [place] tablet 00 daily with Medical breakfast. Branch metformin Yes [id number] 1000mg Take 2 Univers ER 500 mg 2-08 tablets by ity of 24 hr 00:00: mouth [place] tablet 00 daily with Medical breakfast. Branch metformin Yes [id number] 1000mg Take 2 Univers ER 500 mg 2-08 tablets by ity of 24 hr 00:00: mouth [place] tablet 00 daily with Medical breakfast. [place] levothyroxi Yes 50ug Take 50 Uni vers ne 50 mcg 2-02 mcg by ity of tablet 00:00: mouth. [facility] levothyroxi Yes 50ug Take 50 Uni vers ne 50 mcg 2-02 mcg by ity of tablet 00:00: mouth. [facility] levothyroxi Yes 50ug Take 50 Uni vers ne 50 mcg 2-02 mcg by ity of tablet 00:00: mouth. [facility] levothyroxi Yes 50ug Take 50 Uni vers ne 50 mcg 2-02 mcg by ity of tablet 00:00: mouth. [facility] levothyroxi Yes 50ug Take 50 Uni vers ne 50 mcg 2-02 mcg by ity of tablet 00:00: mouth. [facility] pantoprazol Yes 40mg Take 40 mg Univers e 40 mg EC 1-10 by mouth ity o f tablet 00:00: every [place] morning. Medical Branch pantoprazol 0 Yes 40mg Take 40 mg Univers e 40 mg EC 1-10 by mouth ity o f tablet 00:00: every [place] morning. Medical Branch pantoprazol 0 Yes 40mg Take 40 mg Univers e 40 mg EC 1-10 by mouth ity o f tablet 00:00: every [place] morning. Medical Branch pantoprazol Yes 40mg Take 40 mg Univers e 40 mg EC 1-10 by mouth ity o f tablet 00:00: every [place] 00 morning. Medical Branch pantoprazol Yes 40mg Take 40 mg Univers e 40 mg EC 1-10 by mouth ity o f tablet 00:00: every [place] morning. Medical Branch simvastatin 0 Yes [id number] 40mg Take 1 Univers 40 mg 8-24 tablet by ity of tablet 00:00: mouth at [place] [address] bedtime. Medical Branch simvastatin 0 Yes [id number] 40mg Take 1 Univers 40 mg 8-24 tablet by ity of tablet 00:00: mouth at [place] [address] bedtime. Medical Branch simvastatin 0 Yes [id number] 40mg Take 1 Univers 40 mg 8-24 tablet by ity of tablet 00:00: mouth at [place] [address] bedtime. Medical Branch simvastatin 0 Yes [id number] 40mg Take 1 Univers 40 mg 8-24 tablet by ity of tablet 00:00: mouth at [place] [address] bedtime. Medical Branch simvastatin 0 Yes [id number] 40mg Take 1 Univers 40 mg 8-24 tablet by ity of tablet 00:00: mouth at [place] [address] bedtime. Medical Branch lamoTRIgine 0 Yes 200mg Take 200 U nivers 200 mg 5-25 mg by ity of tablet 00:00: mouth at [place] [address] bedtime. Medical Branch QUEtiapine 2020-0 Yes 100mg Take 100 Un david 100 mg 5-25 mg by ity of tablet 00:00: mouth at [place] [address] bedtime. Medical Branch SERTraline 0 Yes 50mg Take 50 mg U nivers 50 mg 5-25 by mouth ity of tablet 00:00: at [place] [address] bedtime. Medical Branch lamoTRIgine 2020-0 Yes 200mg Take 200 U nivers 200 mg 5-25 mg by ity of tablet 00:00: mouth at [place] [address] bedtime. Medical Branch QUEtiapine 2020-0 Yes 100mg Take 100 Un david 100 mg 5-25 mg by ity of tablet 00:00: mouth at [place] [address] bedtime. Medical Branch SERTraline 2020-0 Yes 50mg Take 50 mg U nivers 50 mg 5-25 by mouth ity of tablet 00:00: at [place] [address] bedtime. Medical Branch lamoTRIgine 2020-0 Yes 200mg Take 200 U nivers 200 mg 5-25 mg by ity of tablet 00:00: mouth at [place] [address] bedtime. Medical Branch QUEtiapine 2020-0 Yes 100mg Take 100 Un david 100 mg 5-25 mg by ity of tablet 00:00: mouth at [place] [address] bedtime. Medical Branch SERTraline 2020-0 Yes 50mg Take 50 mg U nivers 50 mg 5-25 by mouth ity of tablet 00:00: at [place] [address] bedtime. Medical Branch lamoTRIgine 2020-0 Yes 200mg Take 200 U nivers 200 mg 5-25 mg by ity of tablet 00:00: mouth at [place] [address] bedtime. Medical Branch QUEtiapine 2020-0 Yes 100mg Take 100 Un david 100 mg 5-25 mg by ity of tablet 00:00: mouth at [place] [address] bedtime. Medical Branch SERTraline 2020-0 Yes 50mg Take 50 mg U nivers 50 mg 5-25 by mouth ity of tablet 00:00: at [place] [address] bedtime. Medical Branch lamoTRIgine 2020-0 Yes 200mg Take 200 U nivers 200 mg 5-25 mg by ity of tablet 00:00: mouth at [place] [address] bedtime. Medical Branch QUEtiapine 2020-0 Yes 100mg Take 100 Un david 100 mg 5-25 mg by ity of tablet 00:00: mouth at [place] [address] bedtime. Medical Branch SERTraline 2020-0 Yes 50mg Take 50 mg U nivers 50 mg 5-25 by mouth ity of tablet 00:00: at [place] [address] bedtime. Medical Branch Immunizations Ordered Filled Immunization Date Status Comments [facility] e Immunization Name Name Pneumococcal 20 2021-11-24 Completed Universit y of Conjugate, PCV20 00:00:00 [facility] dical (Prevnar 20) Branch Pneumococcal 20 2021-11-24 Completed Universit y of Conjugate, PCV20 00:00:00 [facility] dical (Prevnar 20) Branch Pneumococcal 20 2021-11-24 Completed Universit y of Conjugate, PCV20 00:00:00 [facility] dical (Prevnar 20) Branch Pneumococcal 20 2021-11-24 Completed Universit y of Conjugate, PCV20 00:00:00 [facility] dical (Prevnar 20) Branch Pneumococcal 20 2021-11-24 Completed Universit y of Conjugate, PCV20 00:00:00 [facility] dical (Prevnar 20) Branch SARS-COV-2 COVID-19 2021-05-11 Completed Unive rsity of MODERNA VACCINE 00:00:00 [facility] Branch SARS-COV-2 COVID-19 2021-05-11 Completed Unive rsity of MODERNA VACCINE 00:00:00 [facility] SARS-COV-2 COVID-19 2021-05-11 Completed Unive rsity of MODERNA VACCINE 00:00:00 [facility] Branch SARS-COV-2 COVID-19 2021-05-11 Completed Unive rsity of MODERNA VACCINE 00:00:00 [facility] SARS-COV-2 COVID-19 2021-05-11 Completed Unive rsity of MODERNA VACCINE 00:00:00 [facility] Influenza Virus 2021-04-22 Completed Universit y of Vaccine 00:00:00 [facility] Influenza Virus 2021-04-22 Completed Universit y of Vaccine 00:00:00 [facility] Influenza Virus 2021-04-22 Completed Universit y of Vaccine 00:00:00 [facility] Influenza Virus 2021-04-22 Completed Universit y of Vaccine 00:00:00 [facility] Influenza Virus 2021-04-22 Completed Universit y of Vaccine 00:00:00 [facility] SARS-COV-2 COVID-19 2020-11-05 Completed Unive rsity of MODERNA VACCINE 00:00:00 [facility] SARS-COV-2 COVID-19 2020-11-05 Completed Unive rsity of MODERNA VACCINE 00:00:00 [facility] SARS-COV-2 COVID-19 2020-11-05 Completed Unive rsity of MODERNA VACCINE 00:00:00 [facility] ical Branch SARS-COV-2 COVID-19 2020-11-05 Completed Unive rsity of MODERNA VACCINE 00:00:00 [facility] ical Branch SARS-COV-2 COVID-19 2020-11-05 Completed Unive rsity of MODERNA VACCINE 00:00:00 [facility] SARS-COV-2 COVID-19 2020-10-08 Completed Unive rsity of MODERNA VACCINE 00:00:00 [facility] ical Branch SARS-COV-2 COVID-19 2020-10-08 Completed Unive rsity of MODERNA VACCINE 00:00:00 [facility] SARS-COV-2 COVID-19 2020-10-08 Completed Unive rsity of MODERNA VACCINE 00:00:00 [facility] SARS-COV-2 COVID-19 2020-10-08 Completed Unive rsity of MODERNA VACCINE 00:00:00 [facility] SARS-COV-2 COVID-19 2020-10-08 Completed Unive rsity of MODERNA VACCINE 00:00:00 [facility] Vital Signs Vital Name Observation Time Observation Value Comments Source Systolic blood 2022-01-31 12:37:00 119 mm[Hg] Univer sity of pressure [facility] Diastolic blood 2022-01-31 12:37:00 73 mm[Hg] Unive rsity of pressure [facility] Heart rate 2022-01-31 12:37:00 88 /min [facility] Body temperature 2022-01-31 12:37:00 36.17 Ashlee [facility] Res[facility] rate 2022-01-31 12:37:00 16 /min [facility] Body height 2022-01-31 12:37:00 165.1 cm [facility] Body weight 2022-01-31 12:37:00 97.523 kg [facility] BMI 2022-01-31 12:37:00 35.78 kg/m2 [facility] Oxygen saturation in 2022-01-31 12:37:00 96 /min [facility] blood by [facility] Pulse oximetry Branch Height/Length 2021-08-05 08:48:40 165 cm Measured Weight Dosing 2021-08-05 08:48:40 89.3 kg Weight Dosing 2021-08-05 08:48:12 89.3 kg Height/Length 2021-08-05 08:48:12 165 cm Measured Height/Length 2020-05-28 12:53:26 Measured Weight Dosing 2020-05-28 12:53:26 Procedures Procedure Date / Time Performing Clinician Source Performed XR HIP 1 VW BILATERAL 2022-01-31 18:14:25 Umberto Saul [facility] TOTAL HIP ARTHROPLASTY 2022-01-31 14:18:00 Umberto Saul [facility] HB ABO GROUPING 2022-01-31 12:30:00 Umberto Saul [facility] POCT GLUCOSE (AUTOMATED) 2022-01-31 12:29:00 Umbetro Saul U [facility] POCT GLUCOSE(AGE >30DAYS) 2022-01-31 12:22:00 [facility] 2022-01-31 05:01:00 Doctor Unarobyn, [facility] [place] [facility] COVID-19 (ID NOW RAPID 2022-01-28 15:00:00 Umberto Saul [facility] TESTING) [facility] [place] [facility] ONLY COVID 2022-01-28 15:00:00 Umberto Saul [facility] INTERPRETATION [facility] EXTERNAL PROVIDER RECORDS 2022-01-14 05:01:00 Doctor Leilani [facility] [place] [facility] DSU PRE-OP 2022-01-14 05:01:00 Doctor Leilani, [facility] [place] [facility] [place] Encounters Start End Encounter Admission Attending Care Care Encounter Source Date/Time Date/Time Type Type Clinicians Facility Department ID 2021-08-12 Outpatient Billy [facility] [id number] [place] 08:59:15 Amanda [id number] [facility] 24 [facility] 2021-08-12 Outpatient Billy [facility] [id number] [place] 08:57:26 [facility] 2021-08-12 Outpatient Billy [facility] [id number] [place] 08:57:04 Amanda 5.0- [facility] 30 [facility] 2021-08-12 Outpatient Billy [facility] [id number] [place] 08:56:54 Amanda 5.0- Coas t [facility] 2020-05-28 Inpatient 3 Corwin Claros [facility] [id number] Medical 14:35:00 Corwin Claros [facility] 2022-02-07 2022-02-07 Outpatient Tere ALANIS [facility] [id number] Univers 13:30:00 13:30:00 DIXIE poonam [facility] 2022-02-03 2022-02-03 [facility]phone [facility] [id number] Univers 00:00:00 00:00:00 Umberto Thomas [facility] [id number] it y of [place] 4.2.7.2.686 Jesus as CHAYITO?BLEA [id number] [address] MEDICAL OFFICE BUILDING 2022-02-01 2022-02-01 Transition PIERRE Portillo [id number] Univers 00:00:00 00:00:00 of Care Kasandra SAUCEDO [id number] [id number] [address] 2022-01-31 2022-01-31 Outpatient R [facility] SOR [id number] Univers 07:00:00 20:05:00 UMBERTO levin [facility] 2022-01-31 2022-01-31 Surgery [facility] [id number] Univers 09:45:00 12:11:00 Umberto GUNTER 350.1.13.10 i [place] [id number] [address] 2022-01-31 2022-01-[address] [id number] Univers 00:00:00 00:00:00 Only Unassigned, LUDIN 350.1.13.10 ity of [place] [facility] [id number] Jesus as [id number] [facility] 009 Branch 2022-01-28 2022-01-28 Laboratory Only, [facility] Test [facility] 1.2.840. [id number] [facility] 10:15:00 10:30:00 Only Umberto Saul 350.1.13.10 [place] [id number] [facility] 353 Branch 2020-07-01 2020-07-01 Outpatient KUSH [facility] [id number] [facility] 06:05:00 16:15:00 [place] 2020-05-28 2020-05-28 Outpatient 3 Andry DineroVICTORIALayla [facility] [id number] [facility] 12:12:00 12:12:00 Andry Dinero [facility] 2020-05-28 2020-05-28 Outpatient 3 Andry DineroJUDY ULT [id number] [facility] 12:12:00 12:12:00 Andry Dinero 1112 [facility] Results Test Description Test Time Test Comments Results Result Comments Source Type and Screen - This is a pre-surgical type and scre en. ONCE 2022-01-31 13:20:25 JAI Test Item Value Reference Range Interpretation Comme nts ABO & RH (test code = 20) O Positive Pe rformed at [facility] Laboratory Services - [facility] Blood [place] [id number] Free: [phone] A No. [id number] IAT (test code = 1185) Negative Perfo rmed at [facility] Laboratory Services - [facility] Blood [address] [place] [id number] Free: [phone] A No. [id number] [facility] GLUCOSE (AUTOMATED)2022-01-31 12:40:31 Test Item Value Reference Range Interpretation Comments POCT GLU (test code = 1339441268) 134 mg/dL 70-110 H Lab Interpretation (test code = Abnormal 27499-5) [facility] [id number] 12:22:00 Test Item Value Reference Range Interpretation Comments POCT Glu (age>30days) (test code = 134 mg/dL 70-110 A 3342) Lab Interpretation (test code = Abnormal 92416-5) [facility] [id number] 15:04:14 [facility] : 1965 Sex: FPatient: KIRILL HANSEN Date/Ti pr05/28/2020 13:30 CSTReason for ExamOther (please specify)ReportEXAMINATION:Ultrasound-guided left thyroid lobe inferior pole nodule FNAUltrasound-guided [...] position. Preliminary sonographic evaluation of the left neckreveals the well-circumscribed left thyroid inferior/mid pole nodules. The overlying area of the left neck base was prepped and draped in the usual sterile fashion. 1% lidocaine was administered for local anesthetic.The 3.2 cm left thyroid lobe inferior pole nodule was first targeted. Multiple attempts with 25- gauge needles were inserted into the lesion under [...] purposes of FNA. A total of 3 passeswere performed. All aspirates were given to the pathologist for preparation of slides/specimens, deemed adequate by the pathologist. All hardware was then removed.A final sonographic evaluation throughout the entirety of the left neck base soft tissues reveals no abnormalities, without fluid collections. The patient tolerated the procedure well without complications.IMPRESSION:1. Technically successful ultrasound- guided left thyroid lobe inferior pole nodule FNA.2. Technically successful ultrasound-guided left thyroid lobe midpole pole nodule FNA.3. Follow-up pathology for final results of the delivered specimens. Final Dictated by: MD Moraima, SamerDictated DT/TM: 05/28/2020 2:59 pmSigned by: MD Moraima, SamerSigned (Electronic Signature): 05/28/2020 3:04 pmIR Thyroid [id number] 15:04:14 [facility]IR[facility] : 1965 Sex: FPatient: KIRILL HANSEN Date/Ti pr05/28/2020 13:30 CSTReason for Examleft thyroid noduleReportEXAMINATION:Ultrasound-guided left thyroid lobe inferior pole nodule FNAUltrasound-guided left thyroid lobe midpole nodule FNAINDICATION: Well- circumscribed 3.2 and 1.9 cm left thyroid lobe isoechoic nodulesCOMPARISON: Outside facility thyroid ultrasound.CONSENT: Informed consent was obtained from the patient after discussing the risks andbenefits of the procedure to which the patient acknowledged, agreed, and signed.PROCEDURE IN DETAIL:The patient was placed in the supine position. Preliminary sonographic evaluation of the left neck reveals the well-circumscribed left thyroid inferior/mid pole nodules. The overlying area of the left neck base was prepped and draped in the usual sterile fashion. 1% lidocaine was administered for localanesthetic.The 3.2 cm left thyroid lobe inferior pole nodule was first targeted. Multiple attempts with 25- gauge needles were inserted into the lesion under [...] to the pathologist for preparation of slides/specimens, deemedadequate by the pathologist. All hardware was then removed.A final sonographic evaluation throughoutthe entirety of the left neck base soft tissues reveals no abnormalities, without fluid collections.The patient tolerated the procedure well without complications.IMPRESSION:1. Technically successful ultrasound- guided left thyroid lobe inferior pole nodule FNA.2. Technically successful ultrasound-guided left thyroid lobe midpole pole nodule FNA.3. Follow-up pathology for final results of the delivered specimens. Final Dictated by: MD Moraima, SamerDictated DT/TM: 05/28/2020 2:59 pmSigned by: MD Moraima, SamerSigned (Electronic Signature): 05/28/2020 3:04 pmPOC Glucose 2020-05-28 12:43:26 Test Item Value Reference Range Interpretation Comments Glucose POC (test 107 mg/dL 74-106 H POC Glucos e used on code = Glucose POC) critical ly ill patients is considered " off-label use" and has no t been cleared or appr jeannette by the FDA. Altern ative testing methods should be considered i f the patient is crit ically ill. POC [id number] 12:21:41 Test Item Value Reference Range Interpretation Comments Glucose POC (test 105 mg/dL 74-106 POC Glucos e used on code = Glucose POC) critical ly ill patients is considered " off-label use" and has no t been cleared or appr jeannette by the FDA. Altern ative testing methods should be considered i f the patient is crit ically ill. Prothrombin Time and [id number] 11:11:55 Test Item Value Reference Range Interpretation Comments Prothrombin Time (test code = 10.8 seconds 9.0-12.0 Prothrombin Time) INR (test code = INR) 1.0 ratio 0.9-1.2 Partial Thromboplastin [id number] 11:11:55 Test Item Value Reference Range Interpretation Comments Partial Thromboplastin Time 27.8 seconds 24.0-35.0 (test code = Partial Thromboplastin Time) IG [id number] 10:58:55 Test Item Value Reference Range Interpretation Comments IG (test code = IG) 0 % 0-5 IG Abs (test code = IG Abs) 0 x10 N Complete Blood Count with [id number] 10:58:54 Test Item Value Reference Range Interpretation [...] = Slide Review) GL_SET_SLIDE _REVIEW_A UTO Automated [id number] 10:58:54 Test Item Value Reference Range Interpretation Comments Neutro Auto (test code = Neutro Auto) 60.9 % N Lymph Auto (test code = Lymph Auto) 27.7 % N [place] Auto (test code = [place] Auto) 8.5 % N Eos, Auto (test code = Eos, Auto) 1.8 % N Basophil Auto (test code = Basophil 0.9 % N Auto) Neutro Absolute (test code = Neutro 2.7 x10 2.7-7.3 Absolute) Lymph Absolute (test code = Lymph 1.2 x10 0.8-3.5 Absolute) [place] Absolute (test code = [place] 0.4 x10 0.3-0.9 Absolute) Eos Absolute (test code = Eos 0.1 x10 0.0-0.3 Absolute) Baso Absolute (test code = Baso 0.0 x10 0.0-0.1 Absolute)
--- NOTE | 2022-02-11 20:20 | P.DS ---
Admission Date: 02/02/22 Discharge Date: 02/03/22 Primary Care Provider: Dr. Hays Disposition: DC HOME/HOME HEALTH CARE Discharge Condition: GOOD Reason for Admission: post-op fever Brief History of Present Illness: 56yo F, PMH: RA, fibromyalgia, NIDDM2, bipolar Presents to ED due to fever and not feeling well. Patient underwent right hip replacement surgery by Dr. Reis in [place] on 01/31. She was discharged home and was doing ok until last night. She felt general weakness and tired. Reportedly had fever at home and EMS was called. On assessment by EMS, she was noted to have fever of 101.6 and took tylenol. On EMS arrival she was noted to be hypoxic to 86% on room air which improved with O2. She reports some increase in pain of her right hip since getting home. In the ED, BP ok, Temp: 99.2, slight tacycardic. CTA negative for PE, noted possible atelectasis. Arterial and venous ultrasound normal of right leg. Dr. Reis contacted by ED physician, recommends admission to hospitalist service and he will see patient in consult today. covid negative, flu negative, UA negative Hospital Course: Problem List Post-op fever, suspected atelectasis recent R hip repair RA NIDDM2 HTN Hypothyroidism fibromyalgia Patient remained afebrile. Chest x-ray and CT noted atelectasis. No definite pneumonia, no fluid. The rest of her infectious workup was negative. Urine was clear and cultures were without growth Ortho was consulted, deemed stable for discharge home. Follow up as planned. Physical Exam General: NAD, AOx3 HEENT: EOMI, Sclerae nonicteric Respiratory: Clear to auscultation bilaterally Cardiovascular: No edema, Regular rate/rhythm Gastrointestinal: Soft and benign, Non-distended, No tenderness Integumentary: dressing c/d/i, no erythema around incision, no drainage, mild swelling Neurological: Normal strength at 5/5 x4 extr (RLE limited due to discomfort) Vital Signs/Physical Exam: Temp Pulse Resp BP Pulse Ox 98.4 F 105 H 18 143/76 H 95 02/03/22 12:00 02/03/22 12:00 02/03/22 12:00 02/03/22 12:00 02/03/22 12:00 Laboratory Data at Discharge: WBC 9.4 K/uL (4.3-10.9) D 02/03/22 02:55 Hgb 8.8 g/dL (12.0-15.0) L 02/03/22 02:55 Hct 25.4 % (36.0-45.0) L 02/03/22 02:55 Plt Count 174 K/uL (152-406) 02/03/22 02:55 Sodium 138 mmol/L (136-145) 02/03/22 02:55 Potassium 3.9 mmol/L (3.5-5.1) 02/03/22 02:55 BUN 10 mg/dL (7-18) 02/03/22 02:55 Creatinine 0.58 mg/dL (0.55-1.3) 02/03/22 02:55 Glucose 145 mg/dL (74-106) H 02/03/22 02:55 Magnesium 2.0 mg/dL (1.8-2.4) 02/03/22 02:55 Home Medications: Amox/Clavulanate [Augmentin 875-125 Tab] 1 tab PO BID 7 Days #14 tab 02/03/22 Codeine/APAP [Tylenol #3*] 1 tab PO Q4H PRN tab 02/03/22 New Medications: Amox/Clavulanate [Augmentin 875-125 Tab] 1 tab PO BID 7 Days #14 tab Followup: Kevin Reis MD [Primary Care Provider] - 1-2 Weeks (surgeon- call to schedule an appointment ) Time spent managing pt's care (in minutes): 45
== END 2022-02-03 15:15 | disposition home health service (06) ==
LOC: ER 00:50 → ERHOLD 07:17 → 2ND 12:30
PROVIDERS: ADMIT Hospitalist; ATTEND Hospitalist
DX: R50.82 Postprocedural fever (principal); J98.11 Atelectasis; R09.02 Hypoxemia; E11.9 Type 2 diabetes mellitus without complications; M06.9 Rheumatoid arthritis, unspecified; I10 Essential (primary) hypertension; E03.9 Hypothyroidism, unspecified; M79.7 Fibromyalgia; F31.9 Bipolar disorder, unspecified; F17.210 Nicotine dependence, cigarettes, uncomplicated; Z96.641 Presence of right artificial hip joint; Z20.822 Contact with and (suspected) exposure to COVID-19; Z88.8 Allergy status to other drugs, medicaments and biological substances; Z88.5 Allergy status to narcotic agent
CPT/HCPCS: 36415; 71045; 71275; 76881; 80048; 80307; 81003; 81015; 82947; 83605; 83735; 84145; 85025; 87040; 87086; 87088; 87804; 93970; 94010; 94760; 96360; 96361; 97110; 97116; 97161; 97530; 99285; G0378; J0295; J0456; J2270; J7030; J7050; Q9967; U0003

== ENCOUNTER 2022-02-08 14:30 | Emergency (ER) | payer OTHER ==
--- OUTSIDE RECORDS SUMMARY | 2022-02-08 14:34 | XMS REPORT | Continuity of Care Document ---
:1965 Author Organization [facility] t Address [address] [place] [address] Care Team Providers Name Role Phone Toñito Hays MD Primary Care Physician [phone] Mrs Billy Attending Clinician Unavailable Semaj Claros Attending Clinician Unavailable Semaj Claros Attending Clinician Unavailable Geoffrey VALADEZ Attending Clinician Unavailable Yumiko ALANIS Attending Clinician Unavailable Randolph Hays MD Attending Clinician Smiley SNOW, L Attending Clinician YVON CURRIE Attending Clinician Unavailable Alvino Dinero Attending Clinician Unavailable Alvino Dinero Attending Clinician Unavailable Semaj Claros Admitting Clinician Unavailable Payers Payer Name Policy Type Policy Number Effective Date Expiration Date S [facility] [id number] [address] [facility] 00:00:00 00:00:00 progam [705] WELLMED/UHC DUAL [id number] 2020 COMP HMO D SNP 00:00:00 [facility] [id number] 2022 MEDICAID 00:00:00 Problems Condition Condition Condition Status Onset Resolution Last Treating Co mments Source Name Details Category Date Date Treatment Clinician Date Hip Hip Disease Active Univers osteoarthr osteoarthr 7-18 it y of itis itis 00:00: [place] [facility] Obesity Obesity Disease Active Univers (BMI (BMI 7-15 ity of 30-39.9) 30-39.9) 00:00: Medical Branch Primary Primary Disease Active Overview: Univ ers osteoarthr osteoarthr 6-30 Formattin ity of itis of itis of 00:00: g of this [place] right hip right hip 00 note Medi danish might be Branch different from the original. Added automatic ally from request for surgery [id number] Type 2 Type 2 Disease Active Univers diabetes diabetes 03-18 ity of mellitus mellitus 00:00: [place] without without 00 Medical complicati complicati Br anch on, on, without without long-term long-term current current use of use of insulin insulin Thyroid Thyroid Disease Active Univers nodule nodule 03-18 ity of 00:00: [place] [facility] Dyslipidem Dyslipidem Disease Active U nivers ia ia 03-18 ity of 00:00: [place] [facility] Carpal Carpal Disease Active Univers tunnel tunnel 6-24 ity of syndrome syndrome 00:00: [place] of right of right 00 Medica l wrist wrist Branch Ganglion Ganglion Disease Active Unive rs cyst cyst 6-24 ity of 00:00: [place] [facility] Tenosynovi Tenosynovi Disease Active 2017-07 U nivers tis of tis of 2-15 ity of [place] hand [place] 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 Sleep Sleep Disease Active 2017-07 Univers apnea apnea -06 ity of 00:00: [place] 00 Medical Branch Vitamin D Vitamin D Disease Active 2017-07 Uni vers deficiency deficiency -06 it y of 00:00: [place] 00 Medical [...] Date Date Clinician Tramadol Propensi Active Itching Unive rs ty to 6-22 ity of adverse 00:00: [place] reaction 00 Medical s Branch TRAMADOL DRUG Active ITCHING 2021- Univers INGREDI 6-22 ity of 00:00: [place] 00 Medical Branch EDOXABAN DRUG Active High Rash 2020-0 Univers TOSYLATE INGREDI 7-20 ity of 00:00: [place] 00 Medical Branch DULOXETI DRUG Active Med Rash 2020-0 Univers NE HCL INGREDI 7-20 ity of 00:00: [place] 00 Medical Branch MILNACIP DRUG Active Med Other-Cmnt 2020-0 Univ ers RAN HCL INGREDI 7-20 ity of 00:00: [place] 00 Medical Branch Duloxeti Drug Active Rash 2020-0 Univers ne Hcl Allergy 7-20 ity of 00:00: [place] 00 Medical Branch Edoxaban Drug Active Rash 2020-0 Univers Tosylate Allergy 7-20 ity of 00:00: [place] 00 Medical Branch Milnacip Drug Active Other - See 2020- Uni vers ran Hcl Allergy comments 7-20 ity of 00:00: [place] 00 Medical Branch lactose DA Active U [facility] 7[facility]18 [facility] 00:00: [facility] Counts include 234 beds at the [facility] duloxeti DA Active OR [facility] ne 7-18 [facility] 00:[facility]: [facility] Counts include 234 beds at the [facility] Drug Active [facility] Active [facility] Drug Active [facility] Drug Active Medical [facility] Drug Active Medical [facility] Drug Active Medical [facility] Social History Social Habit Start Date Stop Date Quantity Comments Source History SDMO University o f Alcohol Frequency [facility] [place] edical Branch History [facility] o f Alcohol Std Drinks [place] [facility] History [facility] o f Alcohol Binge [facility] al Branch Alcohol intake 2022-02-01 2022-02-01 Current drinker Unive rsity of 00:00:00 00:00:00 of alcohol [facility] (finding) Branch Exposure to 2022-01-21 2022-01-31 Not sure University of SARS-CoV-2 (event) 00:00:00 07:25:00 [facility] Tobacco Comment 2022-01-25 2022-01-25 occasional Universit y of 00:00:00 00:00:00 [facility] Cigarettes smoked 2022-01-25 2022-01-25 Univers ity of current (pack per 00:00:00 00:00:00 [facility] ) - Reported Branch Cigarette 2022-01-25 2022-01-25 University of pack-years 00:00:00 00:00:00 [facility] Tobacco use and 2022-01-25 2022-01-25 User of smokeless Un iversity of exposure 00:00:00 00:00:[address] [facility] Alcohol Comment 2021-02-02 2021-02-02 socially Universit y of 00:00:00 00:00:00 [facility] History of tobacco 1993-02-02 Passive smoker Un iversity of use 00:00:00 [facility] Sex [birth year] At [birth year] Universit y of 00:00:00 00:00:00 [facility] Smoking Status Start Date Stop Date Source Ex-smoker 2022-01-25 00:00:00 2022-01-25 00:00:[address] [facility] Medications Ordered Filled Start Stop Current Ordering Indication Dosage Frequency Signature Comments Components Source Medication Medication Date Date Medication? Clinician (SIG) Name Name acetaminoph Yes 4647 2{tbl} Take 2 Un david en-codeine 7-25 tablets by ity of (TYLENOL-CO 00:00: mouth [place] DEINE #3) 00 every 6 Medical 300-30 mg (six) Branch tablet hours as needed for Pain (scale 4-6) or Pain (scale 7-10). Indication s: acute pain acetaminoph 2021-0 Yes 4647 2{tbl} Take 2 Un david en-codeine 7-25 tablets by ity of (TYLENOL-CO 00:00: mouth [place] DEINE #3) 00 every 6 Medical 300-30 mg (six) Branch tablet hours as needed for Pain (scale 4-6) or Pain (scale 7-10). Indication s: acute pain acetaminoph 2021-0 Yes 4647 2{tbl} Take 2 Un david en-codeine 7-25 tablets by ity of (TYLENOL-CO 00:00: mouth [place] DEINE #3) 00 every 6 Medical 300-30 mg (six) Branch tablet hours as needed for Pain (scale 4-6) or Pain (scale 7-10). Indication s: acute pain acetaminoph 2021-0 Yes 4647 2{tbl} Take 2 Un david en-codeine 7-25 tablets by ity of (TYLENOL-CO 00:00: mouth [...] (scale 7-10). Indication s: acute pain rivaroxaban 2021-2021- Yes 1480 10mg Take 1 Uni vers (XARELTO) 7-18 08-16 tablet by ity of 10 mg 00:00: 04:59 mouth in [place] tablet 00 :00 the Medical morning Branch for 28 days. Indication s: deep vein thrombosis prevention in hip surgery rivaroxaban 2021-2021- Yes 1480 10mg Take 1 Uni vers (XARELTO) 7-18 08-16 tablet by ity of 10 mg 00:00: 04:59 mouth in [place] tablet 00 :00 the Medical morning Branch for 28 days. Indication s: deep vein thrombosis prevention in hip surgery rivaroxaban 2021- Yes 1480 10mg Take 1 Uni vers (XARELTO) 18 08-16 tablet by ity of 10 mg 00:00: 04:59 mouth in [place] tablet 00 :00 the Medical morning Branch for 28 days. Indication s: deep vein thrombosis prevention in hip surgery rivaroxaban 2021- Yes 1480 10mg Take 1 Uni vers (XARELTO) 18 -16 tablet by ity of 10 mg 00:00: 04:59 mouth in [place] tablet 00 :00 the Medical morning Branch for 28 days. Indication s: deep vein thrombosis prevention in hip surgery rivaroxaban 2021- Yes 1480 10mg Take 1 Uni vers (XARELTO) 01-31-16 tablet by ity of 10 mg 00:00: 04:59 mouth in [place] tablet 00 :00 the Medical morning Branch for 28 days. Indication s: deep vein thrombosis prevention in hip surgery acetaminoph 2021- No 4647 2{tbl} Take 2 U nivers en-codeine 01-31 07-25 tablets by it y of (TYLENOL-CO 00:00: 00:00 [place] DEINE #3) 00 :00 every 6 Medical 300-30 mg (six) Branch tablet hours as needed for Pain (scale 4-6) or Pain (scale 7-10). Indication s: acute pain hydrOXYzine 2022-0 Yes 25mg Take 25 mg Univers 25 mg 6-13 by mouth 2 ity of tablet 00:00: (two) [place] 00 times Medical daily as Branch needed. hydrOXYzine 2022-0 Yes 25mg Take 25 mg Univers 25 mg 6-13 by mouth 2 ity of tablet 00:00: (two) [place] 00 times Medical daily as Branch needed. hydrOXYzine 2022-0 Yes 25mg Take 25 mg Univers 25 mg 6-13 by mouth 2 ity of tablet 00:00: (two) [place] 00 times Medical daily as Branch needed. hydrOXYzine 2022-0 Yes 25mg Take 25 mg Univers 25 mg 6-13 by mouth 2 ity of tablet 00:00: (two) 00 times Medical daily as Branch needed. hydrOXYzine 2022-0 Yes 25mg Take 25 mg Univers 25 mg 6-13 by mouth 2 ity of tablet 00:00: (two) 00 times Medical daily as Branch needed. gabapentin 2022-0 Yes [id number] 300mg Take 1 Univers 300 mg 4-21 capsule by ity of capsule 00:00: mouth 3 00 (three) Medical times Branch daily. gabapentin 2022-0 Yes [id number] 300mg Take 1 Univers 300 mg 4-21 capsule by ity of capsule 00:00: mouth 3 00 (three) Medical times Branch daily. gabapentin 2022-0 Yes [id number] 300mg Take 1 Univers 300 mg 4-21 capsule by ity of capsule 00:00: mouth 3 (three) Medical times Branch daily. gabapentin 2022-0 Yes [id number] 300mg Take 1 Univers 300 mg 4-21 capsule by ity of capsule 00:00: mouth 3 00 (three) Medical times Branch daily. gabapentin 2022-0 Yes [id number] 300mg Take 1 Univers 300 mg 4-21 capsule by ity of capsule 00:00: mouth 3 (three) Medical times Branch daily. adalimumab 2022-0 Yes [id number] 40mg inject 1 Univers (HUMIRA,CF, 4 [id number] Pen under i ty of PEN) 40 00:00: the skin [place] mg/0.4 mL 00 every 14 Medica l injection (fourteen) Bran ch days. adalimumab 2022-0 Yes [id number] 40mg inject 1 Univers (HUMIRA,CF, 4 [id number] Pen under i ty of PEN) 40 00:00: the skin [place] mg/0.4 mL 00 every 14 Medica l injection (fourteen) Bran ch days. adalimumab 2022-0 Yes [id number] 40mg inject 1 Univers (HUMIRA,CF, 4- [id number] Pen under i ty of PEN) 40 00:00: the skin [place] mg/0.4 mL 00 every 14 Medica l injection (fourteen) Bran ch days. adalimumab 2022-0 Yes [id number] 40mg inject 1 Univers (HUMIRA,CF, 4- [id number] Pen under i ty of PEN) 40 00:00: the skin [place] mg/0.4 mL 00 every 14 Medica l injection (fourteen) Bran ch days. adalimumab 2022-0 Yes [id number] 40mg inject 1 Univers (LIBERTAD,CF, [id number] Pen under i ty of PEN) 40 00:00: the skin [place] mg/0.4 mL 00 every 14 Medica l injection (fourteen) Bran ch days. blood sugar Yes [id number] Use as Univers diagnostic 2-15 directed ity o f (ACCU-CHEK 00:00: to check Jesus as GUIDE TEST 00 blood Medical STRIPS) sugar once Branch strip daily E11.9 Lancets Yes [id number] Use as Uni vers (ACCU-CHEK 2-15 directed ity o f SOFTCLIX 00:00: to check [place] LANCETS) 00 blood Medical Misc sugar once Branch daily E11.9 blood sugar Yes [id number] Use as Univers diagnostic 2-15 directed ity o f (ACCU-CHEK 00:00: to check [place] as GUIDE TEST 00 blood Medical STRIPS) sugar once Branch strip daily E11.9 Lancets Yes [id number] Use as Uni vers (ACCU-CHEK 2-15 directed ity o f SOFTCLIX 00:00: to check [place] LANCETS) 00 blood Medical Misc sugar once Branch daily E11.9 blood sugar 2021-0 Yes [id number] Use as Univers diagnostic 2-15 directed ity o f (ACCU-CHEK 00:00: to check [place] as GUIDE TEST 00 blood Medical STRIPS) sugar once Branch strip daily E11.9 Lancets 2021-0 Yes [id number] Use as Uni vers (ACCU-CHEK 2-15 directed ity o f SOFTCLIX 00:00: to check [place] LANCETS) 00 blood Medical Misc sugar once Branch daily E11.9 blood sugar 2021-0 Yes [id number] Use as Univers diagnostic 2-15 directed ity o f (ACCU-CHEK 00:00: to check [place] as GUIDE TEST 00 blood Medical STRIPS) sugar once Branch strip daily E11.9 Lancets 2021- Yes [id number] Use as Uni vers (ACCU-CHEK 2-15 directed ity o f SOFTCLIX 00:00: to check [place] LANCETS) 00 blood Medical Misc sugar once Branch daily E11.9 blood sugar Yes [id number] Use as Univers diagnostic 2-15 directed ity o f (ACCU-CHEK 00:00: to check Jesus as GUIDE TEST 00 blood Medical STRIPS) sugar once Branch strip daily E11.9 Lancets Yes [id number] Use as Uni vers (ACCU-CHEK 2-15 directed ity o f SOFTCLIX 00:00: to check [place] LANCETS) 00 blood Medical Misc sugar once Branch daily E11.9 metformin 2021-0 Yes [id number] 1000mg Take 2 Univers ER 500 mg 2-08 tablets by ity of 24 hr 00:00: mouth [place] tablet 00 daily with Medical breakfast. Branch metformin Yes [id number] 1000mg Take 2 Univers ER 500 mg 2-08 tablets by ity of 24 hr 00:00: mouth [place] tablet 00 daily with Medical breakfast. Branch metformin Yes [id number] 1000mg Take 2 Univers ER 500 mg 2-08 tablets by ity of 24 hr 00:00: mouth [place] tablet 00 daily with Medical breakfast. Branch metformin Yes [id number] 1000mg Take 2 Univers ER 500 mg 2-08 tablets by ity of 24 hr 00:00: mouth [place] tablet 00 daily with Medical breakfast. Branch metformin Yes [id number] 1000mg Take 2 Univers ER 500 mg 2-08 tablets by ity of 24 hr 00:00: mouth [place] tablet 00 daily with Medical breakfast. Branch levothyroxi Yes 50ug Take 50 Uni vers ne 50 mcg 2-02 mcg by ity of tablet 00:00: mouth. [facility] levothyroxi Yes 50ug Take 50 Uni vers ne 50 mcg 2-02 mcg by ity of tablet 00:00: mouth. [facility] levothyroxi Yes 50ug Take 50 Uni vers ne 50 mcg 2-02 mcg by ity of tablet 00:00: mouth. [facility] levothyroxi Yes 50ug Take 50 Uni vers ne 50 mcg 2-02 mcg by ity of tablet 00:00: mouth. [facility] levothyroxi Yes 50ug Take 50 Uni vers ne 50 mcg 2-02 mcg by ity of tablet 00:00: mouth. [facility] pantoprazol Yes 40mg Take 40 mg Univers e 40 mg EC 1-10 by mouth ity o f tablet 00:00: every [place] morning. Medical Branch pantoprazol 0 Yes 40mg Take 40 mg Univers e 40 mg EC 1-10 by mouth ity o f tablet 00:00: every [place] morning. Medical Branch pantoprazol Yes 40mg Take 40 mg Univers e 40 mg EC 1-10 by mouth ity o f tablet 00:00: every [place] morning. Medical Branch pantoprazol Yes 40mg Take 40 mg Univers e 40 mg EC 1-10 by mouth ity o f tablet 00:00: every [place] morning. Medical Branch pantoprazol Yes 40mg Take 40 mg Univers e 40 mg EC 1-10 by mouth ity o f tablet 00:00: every [place] morning. Medical Branch simvastatin 0 Yes [id number] 40mg Take 1 Univers 40 mg 8-24 tablet by ity of tablet 00:00: mouth at [place] [address] bedtime. Medical Branch simvastatin 0 Yes [id number] 40mg Take 1 Univers 40 mg 8-24 tablet by ity of tablet 00:00: mouth at [place] [address] bedtime. Medical Branch simvastatin 0 Yes [id number] 40mg Take 1 Univers 40 mg 8-24 tablet by ity of tablet 00:00: mouth at [place] [address] bedtime. Medical Branch simvastatin 0 Yes [id number] 40mg Take 1 Univers 40 mg 8-24 tablet by ity of tablet 00:00: mouth at [place] [address] bedtime. Medical Branch simvastatin 0 Yes [id number] 40mg Take 1 Univers 40 mg 8-24 tablet by ity of tablet 00:00: mouth at [place] [address] bedtime. Medical Branch lamoTRIgine 2020-0 Yes 200mg Take 200 U nivers 200 mg 5-25 mg by ity of tablet 00:00: mouth at [place] [address] bedtime. Medical Branch QUEtiapine 2020-0 Yes 100mg Take 100 Un david 100 mg 5-25 mg by ity of tablet 00:00: mouth at [place] [address] bedtime. Medical Branch SERTraline 2020-0 Yes 50mg Take 50 mg U nivers 50 mg 5-25 by mouth ity of tablet 00:00: at [place] [address] bedtime. Medical Branch lamoTRIgine 2020-0 Yes 200mg Take 200 U nivers 200 mg 5-25 mg by ity of tablet 00:00: mouth at [place] [address] bedtime. Medical Branch QUEtiapine 2020-0 Yes 100mg Take 100 Un david 100 mg 5-25 mg by ity of tablet 00:00: mouth at [place] [address] bedtime. Medical Branch SERTraline 2020-0 Yes 50mg Take 50 mg U nivers 50 mg 5-25 by mouth ity of tablet 00:00: at [place] [address] bedtime. Medical Branch lamoTRIgine 2020-0 Yes 200mg Take 200 U nivers 200 mg 5-25 mg by ity of tablet 00:00: mouth at [place] [address] bedtime. Medical Branch QUEtiapine 0 Yes 100mg Take 100 Un david 100 mg 5-25 mg by ity of tablet 00:00: mouth at [place] [address] bedtime. Medical Branch SERTraline 0 Yes 50mg Take 50 mg U nivers 50 mg 5-25 by mouth ity of tablet 00:00: at [place] [address] bedtime. Medical Branch lamoTRIgine 2020-0 Yes 200mg Take 200 U nivers 200 mg 5-25 mg by ity of tablet 00:00: mouth at [place] [address] bedtime. Medical Branch QUEtiapine 0 Yes 100mg Take 100 Un david 100 mg 5-25 mg by ity of tablet 00:00: mouth at [place] [address] bedtime. Medical Branch SERTraline 0 Yes 50mg Take 50 mg U nivers 50 mg 5-25 by mouth ity of tablet 00:00: at [place] [address] bedtime. Medical Branch lamoTRIgine 2020-0 Yes 200mg Take 200 U nivers 200 mg 5-25 mg by ity of tablet 00:00: mouth at [place] [address] bedtime. Medical Branch QUEtiapine 0 Yes 100mg Take 100 Un david 100 mg 5-25 mg by ity of tablet 00:00: mouth at [place] [address] bedtime. Medical Branch SERTraline 0 Yes 50mg Take 50 mg U nivers 50 mg 5-25 by mouth ity of tablet 00:00: at [place] [address] bedtime. Medical Branch Immunizations Ordered Filled Immunization Date Status Comments [facility] e Immunization Name Name Pneumococcal 2021-11-24 Completed Universit y of Conjugate, PCV20 00:00:00 [facility] dical (Prevnar 20) Branch Pneumococcal 20 2021-11-24 Completed Universit y of Conjugate, PCV20 00:00:00 [facility] dical (Prevnar 20) Branch Pneumococcal 20 2021-11-24 Completed Universit y of Conjugate, PCV20 00:00:00 [facility] dical (Prevnar 20) Branch Pneumococcal 20 2021-11-24 Completed Universit y of Conjugate, PCV20 00:00:00 [facility] dical (Prevnar 20) Branch Pneumococcal 20 2021-11-24 Completed Universit y of Conjugate, PCV20 00:00:00 [facility] dical (Prevnar 20) Branch SARS-COV-2 COVID-19 2021-05-11 Completed Unive rsity of MODERNA VACCINE 00:00:00 [facility] Branch SARS-COV-2 COVID-19 2021-05-11 Completed Unive rsity of MODERNA VACCINE 00:00:00 [facility] SARS-COV-2 COVID-19 2021-05-11 Completed Unive rsity of MODERNA VACCINE 00:00:00 [facility] SARS-COV-2 COVID-19 2021-05-11 Completed Unive rsity of MODERNA VACCINE 00:00:00 [facility] SARS-COV-2 COVID-19 2021-05-11 Completed Unive rsity of MODERNA VACCINE 00:00:00 [facility] Influenza Virus 2021-04-22 Completed Universit y of Vaccine 00:00:00 [facility] Influenza Virus 2021-04-22 Completed Universit y of Vaccine 00:00:00 [facility] Influenza Virus 2021-04-22 Completed Universit y of Vaccine 00:00:00 [facility] Influenza Virus 2021-04-22 Completed Universit y of Vaccine 00:00:00 [facility] Influenza Virus 2021-04-22 Completed Universit y of Vaccine 00:00:00 [facility] SARS-COV-2 COVID-19 2020-11-05 Completed Unive rsity of MODERNA VACCINE 00:00:00 [facility] SARS-COV-2 COVID-19 2020-11-05 Completed Unive rsity of MODERNA VACCINE 00:00:00 [facility] SARS-COV-2 COVID-19 2020-11-05 Completed Unive rsity of MODERNA VACCINE 00:00:00 [facility] Branch SARS-COV-2 COVID-19 2020-11-05 Completed Unive rsity of MODERNA VACCINE 00:00:00 [facility] Branch SARS-COV-2 COVID-19 2020-11-05 Completed Unive rsity of MODERNA VACCINE 00:00:00 [facility] SARS-COV-2 COVID-19 2020-10-08 Completed Unive rsity of MODERNA VACCINE 00:00:00 [facility] Branch SARS-COV-2 COVID-19 2020-10-08 Completed Unive rsity of MODERNA VACCINE 00:00:00 [facility] Branch SARS-COV-2 COVID-19 2020-10-08 Completed Unive rsity of MODERNA VACCINE 00:00:00 [facility] Branch SARS-COV-2 COVID-19 2020-10-08 Completed Unive rsity of MODERNA VACCINE 00:00:00 [facility] Branch SARS-COV-2 COVID-19 2020-10-08 Completed Unive rsity of MODERNA VACCINE 00:00:00 [facility] Vital Signs Vital Name Observation Time Observation Value Comments Source Height/Length Measured 2021-08-05 08:48:40 165 cm Weight Dosing 2021-08-05 08:48:40 89.3 kg Weight Dosing 2021-08-05 08:48:12 89.3 kg Height/Length Measured 2021-08-05 08:48:12 165 cm Height/Length Measured 2020-05-28 12:53:26 Weight Dosing 2020-05-28 12:53:26 Procedures This patient has no known procedures. Encounters Start End Encounter Admission Attending Care Care Encounter Source Date/Time Date/Time Type Type Clinicians Facility Department ID 2021-08-12 Outpatient Billy [facility] [id number] [place] 08:59:15 Amanda [id number] [facility] [address] 2021-08-12 Outpatient Billy [place] [id number] [place] 08:57:26 Amanda 5.0- [address] 2021-08-12 Outpatient Billy [facility] [id number] [place] 08:57:04 Amanda 5.0- Coas t 30 [facility] 2021-08-12 Outpatient Billy [facility] [id number] [place] 08:56:54 Amanda 5.0- Coas t 25 [facility] 2020-05-28 Inpatient 3 Corwin Claros [facility] [id number] Medical 14:35:00 Corwin Claros [facility] 2022-04-08 2022-04-08 Outpatient Tere VALADEZ [facility] [id number] Univers 13:45:00 13:45:00 MANISHA [facility] 2022-02-14 2022-02-14 [facility] [id number] Univers 14:00:00 14:00:00 DIXIE [id number] [facility] 2022-02-08 2022-02-08 Telephone [facility] [id number] Univers 00:00:00 00:00:00 Toñito HEALTH [id number] it y of [place] [id number] Jesus as CHAYITO?BLEA [id number] [place] [address] OFFICE [facility] 2022-02-08 2022-02-[address] [facility] [id number] Univers 00:00:00 00:00:00 Kiwiple HEALTH [id number] it y of [place] [id number] Jesus as CHAYITO?BLEA [id number] [place] NEAL [address] [facility] OFFICE [facility] 2022-02-07 2022-02-07 [facility] [id number] Univers 00:00:00 00:00:00 Toñito HEALTH [id number] it y of [place] [id number] Jesus as CHAYITO?BLEA [id number] [place] NAEL[address] OFFICE [facility] 2022-02-07 2022-02-[address] [facility] [id number] Univers 00:00:00 00:00:00 Kevin L HEALTH [id number] it y of [place] [id number] Jesus as CHAYITO?BLEA [id number] [place] dicmakayla SMITH 198 [facility] 2022-02-01 2022-02-01 Telephone MALATHI Reis [id number] [facility] 00:00:00 00:00:00 Kevin Thomas [facility] [id number] it y of [place] [id number] Jesus as CHAYITO?BLEA [id number] [place] SMITH 198 [facility] 2020-07-01 2020-07-01 Outpatient KUSH ITALO [facility] [id number] [facility] 06:05:00 16:15:00 [place] 2020-05-28 2020-05-28 Outpatient 3 Andry Dinero [facility] [id number] [facility] 12:12:00 12:12:00 Andry Dinero [facility] 2020-05-28 2020-05-28 Outpatient 3 Andry Dinero [facility] [id number] [facility] 12:12:00 12:12:00 Andry Dinero [address] [facility] Results Test Description Test Time Test Comments Results Result Comments Source IR Thyroid Biopsy 2020-05-28 15:04:14 [facility] : 1965 Sex: F *Patient: [...] 3:04 pm IR Thyroid Biopsy 2020-05-28 15:04:14 [facility] DOB: 1965 Sex: F *Patient: KIRILL HANSEN Date/Time05/28/2020 [...] t he patient is critically ill. POC [id number] 12:21:41 Test Item Value Reference Range Interpretation Comments Glucose POC (test 105 mg/dL 74-106 POC Glucos e used on code = Glucose POC) critical ly ill patients is considered " off-label use" and has no t been cleared or appr jeannette by the FDA. Altern ative testing methods should be considered i f the patient is crit ically ill. Prothrombin Time and [id number] 11:11:55 Test Item Value Reference Range Interpretation Comments Prothrombin Time (test code = 10.8 seconds 9.0-12.0 Prothrombin Time) INR (test code = INR) 1.0 ratio 0.9-1.2 Partial Thromboplastin [id number] 11:11:55 Test Item Value Reference Range Interpretation Comments Partial Thromboplastin Time 27.8 seconds 24.0-35.0 (test code = Partial Thromboplastin Time) IG [id number] 10:58:55 Test Item Value Reference Range Interpretation Comments IG (test code = IG) 0 % 0-5 IG Abs (test code = IG Abs) 0 x10 N Complete Blood Count with [id number] 10:58:54 Test Item Value Reference Range Interpretation [...] = Slide Review) GL_SET_SLIDE _REVIEW_A UTO Automated [id number] 10:58:54 Test Item Value Reference Range Interpretation Comments Neutro Auto (test code = Neutro Auto) 60.9 % N Lymph Auto (test code = Lymph Auto) 27.7 % N Cherry Auto (test code = Cherry Auto) 8.5 % N Eos, Auto (test code = Eos, Auto) 1.8 % N Basophil Auto (test code = Basophil 0.9 % N Auto) Neutro Absolute (test code = Neutro 2.7 x10 2.7-7.3 Absolute) Lymph Absolute (test code = Lymph 1.2 x10 0.8-3.5 Absolute) Cherry Absolute (test code = Cherry 0.4 x10 0.3-0.9 Absolute) Eos Absolute (test code = Eos 0.1 x10 0.0-0.3 Absolute) Baso Absolute (test code = Baso 0.0 x10 0.0-0.1 Absolute)
[2022-02-08] MEDS ORDERED: NA CHLORIDE 0.9% 500 ML ONE (15:25)
[2022-02-08 15:37] LABS: Absolute Lymphocytes (CBC) 1.5 K/uL (0.7-4.9); Hematocrit 27.9 % (36.0-45.0); Lymphocytes % 14.9 % (15.3-44.8); MPV 8.1 fL (7.6-11.3); RBC Red Blood Cell Count 3.03 M/uL (3.86-4.86)
[2022-02-08 15:57] LABS: Bilirubin Total 0.3 mg/dL (0.2-1.0); Protein, Total 7.3 g/dL (6.4-8.2)
[2022-02-08 15:59] LABS: Potassium 4.4 mmol/L (3.5-5.1)
[2022-02-08] MEDS ORDERED: FENTANYL CITR 100 MCG/2 ML ONE ×2 (16:36→17:06)
[2022-02-08] MEDS ORDERED: ONDANSETRON 4 MG/2 ML VIAL ONE (16:36)
--- NOTE | 2022-02-08 16:50 | RAD REPORT ---
EXAM DESCRIPTION: RAD - Hip Right 2 View - 02/08/2022 4:25 pm CLINICAL HISTORY: PAIN COMPARISON: Hip Right 2 View dated 02/02/2022 FINDINGS: AP and cross-table lateral views were obtained. Right total hip prosthesis in place. Aceta bulum and femoral components are unchanged from the February 10 examination. No new bone finding seen. Skin jonathan are still present laterally. No air in the soft tissues. No foreign body seen. IMPRESSION: Negative right hip examination for acute or significant findings.
--- NOTE | 2022-02-08 17:02 | EDPHYS ---
Physician Documentation [facility] Name: Lashon Baca Age: 56 yrs Sex: Female : 1965 Arrival Date: 02/08/2022 Time: 14:36 Bed 2 Private MD: CONCHA Physician Nii Bronson HPI: 02/08 16:51 This 56 yrs old Female presents to ER via EMS with complaints of right hip gemma wound drainage. 16:51 The patient or guardian reports decreased range of motion, pain. that occurred surgery gemma hip replacement 01/31. The complaints affect the right hip. Onset: The symptoms/episode began/occurred 8 day(s) ago. Modifying factors: The symptoms are alleviated by remaining still, the symptoms are aggravated by nothing. Associated signs and symptoms: Loss of consciousness: the patient experienced no loss of consciousness, Pertinent positives: weakness. Severity of symptoms: At their worst the symptoms were mild, in the emergency department the symptoms are unchanged. The patient has not experienced similar symptoms in the past. Historical: - Allergies: 14:53 Cymbalta; [facility] 14:53 Savella; [facility] 14:53 tramadol; [facility] - PMHx: 17:33 Bipolar disorder; Diabetes - NIDDM; Fibromyalgia; Rheumatoid Arthritis; jg9 - Immunization history:: Adult Immunizations up to date, Client reports receiving the 2nd dose of the Covid vaccine, Last tetanus immunization:. - Social history:: Smoking status: Patient reports the use of cigarette tobacco products, denies chronic smoking, but will smoke occasionally. - Family history:: not pertinent. ROS: 16:51 Constitutional: Negative for fever, chills, and weight loss, Eyes: Negative for injury, gemma pain, redness, and discharge, ENT: Negative for injury, pain, and discharge, Neck: Negative for injury, pain, and swelling, Cardiovascular: Negative for chest pain, palpitations, and edema, Respiratory: Negative for shortness of breath, cough, wheezing, and pleuritic chest pain, Abdomen/GI: Negative for abdominal pain, nausea, vomiting, diarrhea, and constipation, Back: Negative for injury and pain, : Negative for injury, bleeding, discharge, and swelling, Skin: Negative for injury, rash, and discoloration, Neuro: Negative for headache, weakness, numbness, tingling, and seizure, Psych: Negative for depression, anxiety, suicide ideation, homicidal ideation, and hallucinations, Allergy/Immunology: Negative for hives, rash, and allergies, Endocrine: Negative for neck swelling, polydipsia, polyuria, polyphagia, and marked weight changes, Hematologic/Lymphatic: Negative for swollen nodes, abnormal bleeding, and unusual bruising. 16:51 MS/extremity: Positive for decreased range of motion, erythema, pain, of the right hip. Exam: 16:51 Constitutional: This is a well developed, well nourished patient who is awake, alert, gemma and in no acute distress. Head/Face: Normocephalic, atraumatic. Eyes: Pupils equal round and reactive to light, extra-ocular motions intact. Lids and lashes normal. Conjunctiva and sclera are non-icteric and not injected. Cornea within normal limits. Periorbital areas with no swelling, redness, or edema. ENT: Nares patent. No nasal discharge, no septal abnormalities noted. Tympanic membranes are normal and external auditory canals are clear. Oropharynx with no redness, swelling, or masses, exudates, or evidence of obstruction, uvula midline. Mucous membranes moist. Neck: Trachea midline, no thyromegaly or masses palpated, and no cervical lymphadenopathy. Supple, full range of motion without nuchal rigidity, or vertebral point tenderness. No Meningismus. Chest/axilla: Normal chest wall appearance and motion. Nontender with no deformity. No lesions are appreciated. Cardiovascular: Regular rate and rhythm with a normal S1 and S2. No gallops, murmurs, or rubs. Normal PMI, no JVD. No pulse deficits. Respiratory: Lungs have equal breath sounds bilaterally, clear to auscultation and percussion. No rales, rhonchi or wheezes noted. No increased work of breathing, no retractions or nasal flaring. Abdomen/GI: Soft, non-tender, with normal bowel sounds. No distension or tympany. No guarding or rebound. No evidence of tenderness throughout. Back: No spinal tenderness. No costovertebral tenderness. Full range of motion. Female : Normal external genitalia. Neuro: Awake and alert, GCS 15, oriented to person, place, time, and situation. Cranial nerves II-XII grossly intact. Motor strength 5/5 in all extremities. Sensory grossly intact. Cerebellar exam normal. Normal gait. Psych: Awake, alert, with orientation to person, place and time. Behavior, mood, and affect are within normal limits. 16:51 Skin: injury, surgery 05/03. Vital Signs: 14:43 BP 107 / 80; Pulse 74; Resp 16; Temp 98.6(O); Pulse Ox 98% ; Weight 90.72 kg; Height 5 6 ft. 5 in. (165.10 cm); Pain 5/10; 16:00 BP 116 / 82; Pulse 78; Resp 17 S; Pulse Ox 95% on R/A; jg9 17:31 BP 110 / 85; Pulse 80; Resp 16 S; Pulse Ox 93% on R/A; Pain 4/10; jg9 14:43 Body Mass Index 33.28 (90.72 kg, 165.10 cm) 6 MDM: 14:45 Patient medically screened. [facility] 16:59 Differential diagnosis: intertrochanteric fracture, strain. Data reviewed: vital signs, [facility] nurses notes, lab test result(s), radiologic studies, plain films. Data interpreted: surveillance system monitor: rate is 74 beats/min, rhythm is regular, Pulse oximetry: on room air is 98 %. Test interpretation: by ED physician or midlevel provider: plain radiologic studies. Counseling: I had a detailed discussion with the patient and/or guardian regarding: the historical points, exam findings, and any diagnostic results supporting the discharge/admit diagnosis. 02/08 14:59 Order name: CBC with Diff; Complete Time: 15:41 [facility] 02/08 14:59 Order name: Comprehensive Metabolic Panel; Complete Time: 16:48 [facility] 02/08 14:59 Order name: Hip Right 2 View XRAY; Complete Time: 17:03 [facility] 02/08 14:59 Order name: Wound Culture [facility] 02/08 16:51 Order name: Misc. Order: clean and dress right hip, wound gel dressing; Complete Time: [facility] 17:31 Administered Medications: 15:28 Drug: NS 0.9% 500 ml Route: IV; Rate: bolus; Site: right forearm; jg9 17:49 Follow up: IV Status: Completed infusion; IV Intake: 500ml j9 16:32 Drug: fentaNYL (PF) 50 mcg Route: IVP; Site: right antecubital; jg9 16:57 Follow up: Response: No adverse reaction; Pain is decreased jg9 18:01 Follow up: Response: Pain is decreased jh6 16:32 Drug: Zofran (Ondansetron) 4 mg Route: IVP; Site: right antecubital; jg9 16:57 Follow up: Response: No adverse reaction jg9 17:05 Drug: fentaNYL (PF) 25 mcg Route: IVP; Site: right antecubital; jh6 17:31 Follow up: Response: No adverse reaction; Pain is decreased jg9 18:01 Follow up: Response: Pain is decreased jh6 17:31 Not Given (Physician Discretion): KeFLEX (cephalexin) 500 mg PO once jg9 Disposition Summary: 02/08/22 17:01 Discharge Ordered Location: Home gemma Problem: new gemma Symptoms: have improved gemma Condition: Stable gemma Diagnosis - Pain in right hip - replacement 05/03, mild drainage gemma Followup: gemma - With: Private Physician - When: 2 - 3 days - Reason: Recheck today's complaints, Continuance of care, Re-evaluation by your physician Followup: gemma - With: Kevin Mcintyre MD - When: 1 - 2 days - Reason: Recheck today's complaints, Continuance of care, Re-evaluation by your physician Discharge Instructions: - Discharge Summary Sheet gemma - Musculoskeletal Pain gemma - Sutured Wound Care gemma - Sutured Wound Care, [id number] gemma Forms: - Medication Reconciliation Form gemma - Thank You Letter gemma - Antibiotic Education gemma - Prescription Opioid Use gemma Signatures: Dispatcher [employer] Nii Paul MD MD cha Hastedt, Jennifer RN RN jh6 Johana Torres RN RN jg9
--- NOTE | 2022-02-08 17:02 | ER ---
Nurse's Notes [facility] Name: Lashon Baca Age: 56 yrs Sex: Female : 1965 Arrival Date: 02/08/2022 Time: 14:36 Bed 2 Private MD: Diagnosis: Pain in right hip-replacement 05/03, mild drainage Presentation: 02/08 14:43 Chief complaint: Patient states: pt states that [facility] jh6 surgery and staff noted discolored dressing to surgical site and sent her to er for evaluation. dressing removed and no blood noted on dressing but serous fluid noted. Coronavirus screen: Vaccine status: Patient reports receiving the 2nd dose of the covid vaccine. Ebola Screen: Patient negative for fever greater than or equal to 101.5 degrees Fahrenheit, and additional compatible Ebola Virus Disease symptoms Patient denies exposure to infectious person. Patient denies travel to an Ebola-affected area in the 21 days before illness onset. Initial Sepsis Screen: Does the patient meet any 2 criteria? No. Patient's initial sepsis screen is negative. Does the patient have a suspected source of infection? No. Patient's initial sepsis screen is negative. Risk Assessment: Do you want to hurt yourself or someone else? Patient reports no desire to harm self or others. 14:43 Method Of Arrival: EMS: [facility] 14:43 Acuity: KENNETH 3 [facility] 16:00 Onset of symptoms is unknown. 9 Triage Assessment: 14:52 General: Appears in no apparent distress. Behavior is calm, cooperative. Pain: [facility] Complains of pain in right hip Pain currently is 5 out of 10 on a pain scale. Quality of pain is described as aching, sharp, Pain began Is continuous, Aggravated by increased activity, repositioning, weight bearing. Derm: Skin is healthy with good turgor, Skin is Skin is pink, warm \T\ dry. normal, Skin temperature is warm Wound noted right hip. Historical: - Allergies: 14:53 Cymbalta; [facility] 14:53 Savella; [facility] 14:53 tramadol; [facility] - PMHx: 17:33 Bipolar disorder; Diabetes - NIDDM; Fibromyalgia; Rheumatoid Arthritis; j9 - Immunization history:: Adult Immunizations up to date, Client reports receiving the 2nd dose of the Covid vaccine, Last tetanus immunization:. - Social history:: Smoking status: Patient reports the use of cigarette tobacco products, denies chronic smoking, but will smoke occasionally. - Family history:: not pertinent. Screenin:33 Abuse screen: Denies threats or abuse. Denies injuries from another. Nutritional jg9 screening: No deficits noted. Tuberculosis screening: No symptoms or risk factors identified. Fall Risk None identified. Assessment: 14:45 General: Appears distressed, uncomfortable, well groomed, Behavior is cooperative. [facility] 14:45 Pain: Complains of pain in right hip Pain currently is 5 out of 10 on a pain scale. jh6 Derm: Skin temperature is warm Wound noted right hip Wound is POST SURGICAL INCISION NO REDNESS AND OR SWELLING Reports pain that is 5 out of 10 on a pain scale. 16:00 Reassessment: No changes from previously documented assessment. Patient and/or family jh6 updated on plan of care and expected duration. Pain level reassessed. 18:01 Reassessment: Patient and/or family updated on plan of care and expected duration. Pain 6 level reassessed. Patient is alert, oriented x 3, equal unlabored respirations, skin warm/dry/pink. Patient states symptoms have improved. Pain: Pain currently is 5 out of 10 on a pain scale. Quality of pain is described as aching, sharp, Is continuous. Vital Signs: 14:43 BP 107 / 80; Pulse 74; Resp 16; Temp 98.6(O); Pulse Ox 98% ; Weight 90.72 kg; Height 5 [facility] ft. 5 in. (165.10 cm); Pain 5/10; 16:00 BP 116 / 82; Pulse 78; Resp 17 S; Pulse Ox 95% on R/A; jg9 17:31 BP 110 / 85; Pulse 80; Resp 16 S; Pulse Ox 93% on R/A; Pain 4/10; jg9 14:43 Body Mass Index 33.28 (90.72 kg, 165.10 cm) [facility] ED Course: 14:36 Patient arrived in ED. bd 14:43 Johana Brewster RN is Primary Nurse. 6 14:45 Nii Bronson MD is Attending Physician. [facility] 14:52 Triage completed. [facility] 14:53 Arm band placed on right wrist. Patient placed in the treatment room, on a stretcher, jh6 on pulse oximetry. 15:00 Patient has correct armband on for positive identification. Bed in low position. Call jg9 light in reach. Side rails up X 1. 15:28 Inserted saline lock: 22 gauge in right forearm, using aseptic technique. Blood jg9 collected. 16:26 Hip Right 2 View XRAY In Process Unspecified. EDMS 17:00 Kevin Mcintyre MD is Referral Physician. [facility] 17:34 No provider procedures requiring assistance completed. j9 18:02 WOUND CLEANED WITH BETADINE AND AQUA GAUZE PLACED AFTER DRYING. jh6 18:04 IV discontinued, intact, bleeding controlled, No redness/swelling at site. Pressure 6 dressing applied. Administered Medications: 15:28 Drug: NS 0.9% 500 ml Route: IV; Rate: bolus; Site: right forearm; jg9 17:49 Follow up: IV Status: Completed infusion; IV Intake: 500ml j9 16:32 Drug: fentaNYL (PF) 50 mcg Route: IVP; Site: right antecubital; j9 16:57 Follow up: Response: No adverse reaction; Pain is decreased j9 18:01 Follow up: Response: Pain is decreased 6 16:32 Drug: Zofran (Ondansetron) 4 mg Route: IVP; Site: right antecubital; j9 16:57 Follow up: Response: No adverse reaction j9 17:05 Drug: fentaNYL (PF) 25 mcg Route: IVP; Site: right antecubital; jh6 17:31 Follow up: Response: No adverse reaction; Pain is decreased j9 18:01 Follow up: Response: Pain is decreased 6 17:31 Not Given (Physician Discretion): KeFLEX (cephalexin) 500 mg PO once jg9 Medication: 18:04 VIS not applicable for this client. 6 Intake: 17:49 IV: 500ml; Total: 500ml. j9 Outcome: 17:01 Discharge ordered by . [facility] 17:34 Condition: stable jg9 17:55 Discharged to home via wheelchair. jh6 17:55 Condition: stable jh6 17:55 Discharge instructions given to patient, Instructed on discharge instructions, follow up and referral plans. Demonstrated understanding of instructions, follow-up care. 18:05 Patient left the ED. 6 Signatures: Dispatcher [employer] Sylvia Escobedo Corey, MD MD cha Hastedt, Jennifer, RN RN jh6 Johana Torres RN RN jg9
[2022-02-08] MEDS ORDERED: CEPHALEXIN 250 MG CAP ONE (17:27)
[2022-02-08 18:21] VITALS: TEMP 98.6
[2022-02-08 18:25] VITALS: BP 110/85; O2SAT 93
== END 2022-02-08 18:05 | disposition home or self-care (01) ==
LOC: ER 14:30
DX: M25.551 Pain in right hip (principal); Z96.641 Presence of right artificial hip joint; F17.210 Nicotine dependence, cigarettes, uncomplicated; Z88.5 Allergy status to narcotic agent; Z88.8 Allergy status to other drugs, medicaments and biological substances
CPT/HCPCS: 87070; 85025; 36415; 87205; 80053; 73502; J3010 ×2; J7040; J2405; 96361; 96374; 96375; 99284

== ENCOUNTER 2022-06-15 14:02 | Observation (INO) | payer OTHER ==
--- OUTSIDE RECORDS SUMMARY | 2022-06-15 14:08 | XMS REPORT | Continuity of Care Document ---
:1965 Author Organization [facility] [place] [facility] t Address [address] [place] [address] Care Team Providers Name Role Phone FRANKO THAKUR Primary Care Physician Unavailable Franko Thakur Attending Clinician Unavailable Corwin Claros Attending Clinician Unavailable Corwin Claros Attending Clinician Unavailable MANISHA NORRIS Attending Clinician Unavailable ROSALES CHIU Attending Clinician Unavailable SUNIL NAQVI Attending Clinician Unavailable Rosales Chiu PA-C Attending Clinician Umberto Saul MD Attending Clinician Doctor Unassigned, [place] Attending Clinician Unavailable Leela Holden MD Attending Clinician Franko Thakur MD Attending Clinician Pcp-Lab Attending Clinician Unavailable Manisha Norris PA-C A Attending Clinician Gavin SNOW, Guerita Attending Clinician Dixie Bhardwaj Attending Clinician DIXIE ALANIS Attending Clinician Unavailable Kasandra Portillo RN Attending Clinician Unavailable UMBERTO SAUL Attending Clinician Unavailable Dinh Phillips CRNA Attending Clinician Heriberto Vyas MD Attending Clinician [phone] Only, Adc Test Attending Clinician Unavailable Pob, Adc Lab Main Attending Clinician Unavailable Negro Benitez PT, Donna Attending Clinician Unavailable Guanako SNOW, Buddy Attending Clinician BUDDY BECKER Attending Clinician Unavailable FRANKO THAKUR Attending Clinician Unavailable Faith Hall MA Attending Clinician Unavailable GUERITA CORDOVA Attending Clinician Unavailable ATALEELA RILEY Attending Clinician Unavailable LEELA HOLDEN Attending Clinician Unavailable Lab, Ang - Db Attending Clinician Unavailable Teresa Leon Attending Clinician Unavailable 1, [facility] Sleep Lab Bed Attending Clinician Unavailable Anderson Hilton MD Attending Clinician GARLAND CURRIE Attending Clinician Unavailable Andry Dinero Attending Clinician Unavailable Andry Dinero Attending Clinician Unavailable Corwin Claros Admitting Clinician Unavailable UMBERTO SAUL Admitting Clinician Unavailable Umberto Saul MD Admitting Clinician BUDDY BECKER Admitting Clinician Unavailable Payers Payer Name Policy Type Policy Number Effective Date Expiration Date Yumiko waldrop [facility] DUAL [id number] 2021 COMP HMO D SNP 00:00:00 MEDICAID [facility] [id number] 2021 00:00:00 Problems Condition Condition Condition Status Onset Resolution Last Treating Co mments Source Name Details Category Date Date Treatment Clinician Date Hip Hip Disease Active Univers osteoarthr osteoarthr 7-18 it y of itis itis 00:00: [place] [id number] Medical Branch Obesity Obesity Disease Active Univers (BMI (BMI 7-15 ity of 30-39.9) 30-39.9) 00:00: [place] 00 Medical Branch Primary Primary Disease Active Overview: Univ ers osteoarthr osteoarthr 30 Formatt[place] ity of itis of itis of 00:00: g of this [place] right hip right hip 00 note Medi danish might be Branch different from the original. 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 Sleep Sleep Disease Active 2017-07 Univers apnea apnea -06 ity of 00:00: [place] [facility] Vitamin D Vitamin D Disease Active 2017-07 Uni vers deficiency deficiency 1-06 it y of 00:00: [place] 00 [facility] Depressed Depressed Disease Active Uni vers bipolar bipolar 8 ity of disorder disorder 00:00: [place] [facility] Fibromyalg Fibromyalg Disease Active U [...] Medical s Branch TRAMADOL DRUG Active ITCHING 0 Univers INGREDI 6-22 ity of 00:00: [place] [facility] [place] EDOXABAN DRUG Active High Rash 2020- Univers TOSYLATE INGREDI 7-20 ity of 00:00: [place] [facility] DULOXETI DRUG Active Med Rash 2020-0 Univers NE HCL INGREDI 7-20 ity of 00:00: [place] [facility] [place] MILNACIP DRUG Active Med Other-Cmnt Univ ers RAN HCL INGREDI 7-20 ity of 00:00: [place] [facility] Duloxeti Drug Active Rash 2020- Univers ne Hcl Allergy 7-20 ity of 00:00: [place] 00 Medical [place] Edoxaban Drug Active Rash Univers Tosylate Allergy 7-20 ity of 00:00: [place] 00 Medical [place] Milnacip Drug Active Other - See Uni vers ran Hcl Allergy comments 7-20 ity of 00:00: [address] lactose DA Active U 2016- [facility] 7[facility] [place] 00:00: [facility] 00 [facility] duloxeti DA Active [place] 2016-0 [facility] 7[facility] [place] 00:00: [facility] 00 [facility] Drug Active [facility] [place] Drug Active [facility] Drug Active [facility] [place] Drug Active [facility] Drug Active [facility] [place] Drug Active [facility] Social History Social Habit Start Date Stop Date Quantity Comments Source History SDOH University o f Alcohol Frequency [facility] edical Branch History SDOH University o f Alcohol Std Drinks [facility] History SDOH University o f Alcohol Binge [facility] [place] Exposure to 2022-03-29 2022-04-08 Not sure University of SARS-CoV-2 (event) 00:00:00 08:50:00 [facility] Alcohol intake 2022-04-08 2022-04-08 Current drinker Unive rsity of 00:00:00 00:00:00 of alcohol [facility] (finding) [place] Tobacco Comment 2022-01-25 2022-01-25 occasional Universit y of 00:00:00 00:00:00 [facility] Cigarettes smoked 2022-01-25 2022-01-25 Univers ity of current (pack per 00:00:00 00:00:00 ) - Reported Branch Cigarette 2022-01-25 2022-01-25 University of pack-years 00:00:00 00:00:00 [facility] Tobacco use and 2022-01-25 2022-01-25 User of smokeless Un iversity of exposure 00:00:00 00:00:00 tobacco [facility] Alcohol Comment 2021-02-02 2021-02-02 socially Universit y of 00:00:00 00:00:00 [facility] History of tobacco 1993-02-02 Passive smoker Un iversity of use 00:00:00 [facility] Sex Ass[birth year] At [birth year] Universit y of 00:00:00 00:00:00 [facility] Smoking Status Start Date Stop Date Source Ex-smoker 2022-01-25 00:00:00 2022-01-25 00:00:00 Universi ty of [facility] Medications Ordered Filled Start Stop Current Ordering Indication Dosage Frequency Signature Comments Components Source Medication Medication Date Date Medication? Clinician (SIG) Name Name celecoxib 2021- No [id number] 200mg Take 1 Univers (CELEBREX) 03-09 6 capsule by it y of 200 mg 00:00: 04:59 mouth in [place] capsule 00 :00 [facility] for 30 days. celecoxib 2021- No [id number] 200mg Take 1 Univers (CELEBREX) 03-09 6 capsule by it y of 200 mg 00:00: 04:59 mouth in [place] capsule 00 :00 the [facility] for 30 days. celecoxib 2021- No [id number] 200mg Take 1 Univers (CELEBREX) 03-09 6 capsule by it y of 200 mg 00:00: 04:59 mouth in [place] capsule 00 :00 [facility] for 30 days. celecoxib 2021- No [id number] 200mg Take 1 Univers (CELEBREX) 03-09 6 capsule by it y of 200 mg 00:00: 04:59 mouth in [place] capsule 00 :00 the [facility] for 30 days. adalimumab Yes [id number] 40mg inject 1 Univers (HUMIRA,CF, 03-07 [id number] Pen under i ty of PEN) 40 00:00: the skin [place] mg/0.4 mL 00 every 14 Medica l injection (fourteen) Bran ch days. adalimumab Yes [id number] 40mg inject 1 Univers (HUMIRA,CF, 03-07 [id number] Pen under i ty of PEN) 40 00:00: the skin [place] mg/0.4 mL 00 every 14 Medica l injection (fourteen) Bran ch days. adalimumab Yes [id number] 40mg inject 1 Univers (HUMIRA,CF, 03-07 [id number] Pen under i ty of PEN) 40 00:00: the skin [place] mg/0.4 mL 00 every 14 Medica l injection (fourteen) Bran ch days. adalimumab Yes [id number] 40mg inject 1 Univers (HUMIRA,CF, 03-07 [id number] Pen under i ty of PEN) 40 00:00: the skin [place] mg/0.4 mL 00 every 14 Medica l injection (fourteen) Bran ch days. adalimumab Yes [id number] 40mg inject 1 Univers (HUMIRA,CF, 03-07 [id number] Pen under i ty of PEN) 40 00:00: the skin [place] mg/0.4 mL 00 every 14 Medica l injection (fourteen) Bran ch days. adalimumab Yes [id number] 40mg inject 1 Univers (HUMIRA,CF, 03-07 [id number] Pen under i ty of PEN) 40 00:00: the skin [place] mg/0.4 mL 00 every 14 Medica l injection (fourteen) Bran ch days. adalimumab 0 Yes [id number] 40mg inject 1 Univers (HUMIRA,CF, 03-07 [id number] Pen under i ty of PEN) 40 00:00: the skin [place] mg/0.4 mL 00 every 14 Medica l injection (fourteen) Bran ch days. adalimumab Yes [id number] 40mg inject 1 Univers (HUMIRA,CF, 03-07 [id number] Pen under i ty of PEN) 40 00:00: the skin [place] mg/0.4 mL 00 every 14 Medica l injection (fourteen) Bran ch days. adalimumab 2021-0 Yes [id number] 40mg inject 1 Univers ([place] [facility],, 03-07 [id number] Pen under i ty of PEN) 40 00:00: the skin [place] mg/0.4 mL 00 every 14 Medica l injection (fourteen) Bran ch days. adalimumab 2021-0 Yes [id number] 40mg inject 1 Univers ([place],, 03-07 [id number] Pen under i ty of PEN) 40 00:00: the skin [place] mg/0.4 mL 00 every 14 Medica l injection (fourteen) Bran ch days. adalimumab 2021-0 Yes [id number] 40mg inject 1 Univers ([place],, 03-07 [id number] Pen under i ty of PEN) 40 00:00: the skin [place] mg/0.4 mL 00 every 14 Medica l injection (fourteen) Bran ch days. adalimumab 2021-0 Yes [id number] 40mg inject 1 [facility] [id number] Pen under i ty of PEN) 40 00:00: the skin [place] mg/0.4 mL 00 every 14 Medica l injection (fourteen) Bran ch days. adalimumab 2021-0 Yes [id number] 40mg inject 1 Univers ([place],, 03-07 [id number] Pen under i ty of PEN) 40 00:00: the skin [place] mg/0.4 mL 00 every 14 Medica l injection (fourteen) Bran ch days. adalimumab 2021-0 Yes [id number] 40mg inject 1 Univers ([facility] [id number] Pen under i ty of PEN) 40 00:00: the skin [place] mg/0.4 mL 00 every 14 Medica l injection (fourteen) Bran ch days. adalimumab 2021-0 Yes [id number] 40mg inject 1 Univers ([place],, 03-07 [id number] Pen under i ty of PEN) 40 00:00: the skin [place] mg/0.4 mL 00 every 14 Medica l injection (fourteen) Bran ch days. blood sugar 2021-0 Yes [id number] Use Daily. Univers diagnostic 8 Dx E11.9 ity o f (ACCU-CHEK 00:00: [place] GUIDE TEST 00 Medical STRIPS) Branch strip blood sugar 2022-0 Yes [id number] Use Daily. Univers diagnostic 8-14 Dx E11.9 ity o f (ACCU-CHEK 00:00: [place] GUIDE TEST 00 Medical STRIPS) Branch strip blood sugar 2022-0 Yes [id number] Use Daily. Univers diagnostic 8-14 Dx E11.9 ity o f (ACCU-CHEK 00:00: [place] GUIDE TEST 00 Medical STRIPS) Branch strip blood sugar 2022-0 Yes [id number] Use Daily. Univers diagnostic 8-14 Dx E11.9 ity o f (ACCU-CHEK 00:00: [place] GUIDE TEST 00 Medical STRIPS) Branch strip blood sugar 2022-0 Yes [id number] Use Daily. Univers diagnostic 8-14 Dx E11.9 ity o f (ACCU-CHEK 00:00: [place] GUIDE TEST 00 Medical STRIPS) Branch strip blood sugar 2022-0 Yes [id number] Use Daily. Univers diagnostic 8-14 Dx E11.9 ity o f (ACCU-CHEK 00:00: [place] GUIDE TEST 00 Medical STRIPS) Branch strip blood sugar 2022-0 Yes [id number] Use Daily. Univers diagnostic 8-14 Dx E11.9 ity o f (ACCU-CHEK 00:00: [place] GUIDE TEST 00 Medical STRIPS) Branch strip blood sugar 2022-0 Yes [id number] Use Daily. Univers diagnostic 8-14 Dx E11.9 ity o f (ACCU-CHEK 00:00: [place] GUIDE TEST 00 Medical STRIPS) Branch strip blood sugar 2022-0 Yes [id number] Use Daily. Univers diagnostic 8-14 Dx E11.9 ity o f (ACCU-CHEK 00:00: [place] GUIDE TEST 00 Medical STRIPS) Branch strip blood sugar 2022-0 Yes [id number] Use Daily. Univers diagnostic 8-14 Dx E11.9 ity o f (ACCU-CHEK 00:00: [place] GUIDE TEST 00 Medical STRIPS) Branch strip blood sugar 2022-0 Yes [id number] Use Daily. Univers diagnostic 8-14 Dx E11.9 ity o f (ACCU-CHEK 00:00: [place] GUIDE TEST 00 Medical STRIPS) Branch strip blood sugar 2022-0 Yes [id number] Use Daily. Univers diagnostic 8-14 Dx E11.9 ity o f (ACCU-CHEK 00:00: [place] GUIDE TEST 00 Medical STRIPS) Branch strip blood sugar 2021-0 Yes [id number] Use Daily. Univers diagnostic 8-14 Dx E11.9 ity o f (ACCU-CHEK 00:00: [place] GUIDE TEST 00 Medical STRIPS) Branch strip blood sugar 2021-0 Yes [id number] Use Daily. Univers diagnostic 8-14 Dx E11.9 ity o f (ACCU-CHEK 00:00: [place] GUIDE TEST 00 Medical STRIPS) Branch strip blood sugar 2021-0 Yes [id number] Use Daily. Univers diagnostic 8-14 Dx E11.9 ity o f (ACCU-CHEK 00:00: [place] GUIDE TEST 00 Medical STRIPS) Branch strip SIMVASTATIN 2021-0 Yes [id number] 40mg TAKE 1 Univers 40 mg 8-08 TABLET BY ity of tablet 00:00: MOUTH AT [address] SIMVASTATIN 2021-0 Yes [id number] 40mg TAKE 1 Univers 40 mg 8-08 TABLET BY ity of tablet 00:00: MOUTH AT [address] SIMVASTATIN 2021-0 Yes [id number] 40mg TAKE 1 Univers 40 mg 8-08 TABLET BY ity of tablet 00:00: MOUTH AT [address] SIMVASTATIN 2021-0 Yes [id number] 40mg TAKE 1 Univers 40 mg 8-08 TABLET BY ity of tablet 00:00: MOUTH AT [address] SIMVASTATIN 2021-0 Yes [id number] 40mg TAKE 1 Univers 40 mg 8-08 TABLET BY ity of tablet 00:00: MOUTH AT [address] SIMVASTATIN 2-0 Yes [id number] 40mg TAKE 1 Univers 40 mg 8-08 TABLET BY ity of tablet 00:00: MOUTH AT [address] SIMVASTATIN 2-0 Yes [id number] 40mg TAKE 1 Univers 40 mg 8-08 TABLET BY ity of tablet 00:00: MOUTH AT [address] SIMVASTATIN 2-0 Yes [id number] 40mg TAKE 1 Univers 40 mg 8-08 TABLET BY ity of tablet 00:00: MOUTH AT [address] SIMVASTATIN 2-0 Yes [id number] 40mg TAKE 1 Univers 40 mg 8-08 TABLET BY ity of tablet 00:00: MOUTH AT [address] SIMVASTATIN 2-0 Yes [id number] 40mg TAKE 1 Univers 40 mg 8-08 TABLET BY ity of tablet 00:00: MOUTH AT [address] SIMVASTATIN 2-0 Yes [id number] 40mg TAKE 1 Univers 40 mg 8-08 TABLET BY ity of tablet 00:00: MOUTH AT [place] [facility] SIMVASTATIN 2-0 Yes [id number] 40mg TAKE 1 Univers 40 mg 8-08 TABLET BY ity of tablet 00:00: MOUTH AT [address] SIMVASTATIN 2-0 Yes [id number] 40mg TAKE 1 Univers 40 mg 8-08 TABLET BY ity of tablet 00:00: MOUTH AT [address] SIMVASTATIN 2021-0 Yes [id number] 40mg TAKE 1 Univers 40 mg 8-08 TABLET BY ity of tablet 00:00: MOUTH AT [address] SIMVASTATIN 2021-0 Yes [id number] 40mg TAKE 1 Univers 40 mg 8-08 TABLET BY ity of tablet 00:00: MOUTH AT [address] acetaminoph 2021-0 Yes [id number] 2{tbl} Take 2 [...] (scale 7-10). Indication s: acute pain acetaminoph 2-0 Yes [id number] 2{tbl} Take 2 Un david en-codeine 7-25 tablets by ity of (TYLENOL-CO 00:00: mouth [place] DEINE #3) 00 every 6 Medical 300-30 mg (six) Branch tablet hours as needed for Pain (scale 4-6) or Pain (scale 7-10). Indication s: acute pain acetaminoph 2-0 Yes 4647 2{tbl} Take 2 Un david en-codeine 7-25 tablets by ity of (TYLENOL-CO 00:00: mouth [place] DEINE #3) 00 every 6 Medical 300-30 mg (six) Branch tablet hours as needed for Pain (scale 4-6) or Pain (scale 7-10). Indication s: acute pain acetaminoph 2022-0 Yes [id number] 2{tbl} Take 2 Un david en-codeine 7-25 tablets by ity of (TYLENOL-CO 00:00: mouth [place] DEINE #3) 00 every 6 Medical 300-30 mg (six) Branch tablet hours as needed for Pain (scale 4-6) or Pain (scale 7-10). Indication s: acute pain acetaminoph 2022-0 Yes 4647 2{tbl} Take 2 Un david en-codeine 7-25 tablets by ity of (TYLENOL-CO 00:00: mouth [place] DEINE #3) 00 every 6 Medical 300-30 mg (six) Branch tablet hours as needed for Pain (scale 4-6) or Pain (scale 7-10). Indication s: acute pain acetaminoph 2022-0 Yes 4647 2{tbl} Take 2 Un david en-codeine 7-25 tablets by ity of (TYLENOL-CO 00:00: mouth [place] DEINE #3) 00 every 6 Medical 300-30 mg (six) Branch tablet hours as needed for Pain (scale 4-6) or Pain (scale 7-10). Indication s: acute pain acetaminoph 2022-0 Yes 4647 2{tbl} Take 2 Un david en-codeine 7-25 tablets by ity of (TYLENOL-CO 00:00: mouth [place] DEINE #3) 00 every 6 Medical 300-30 mg (six) Branch tablet hours as needed for Pain (scale 4-6) or Pain (scale 7-10). Indication s: acute pain acetaminoph 2022-0 Yes 4647 2{tbl} Take 2 Un david en-codeine 7-25 tablets by ity of (TYLENOL-CO 00:00: mouth [place] DEINE #3) 00 every 6 Medical 300-30 mg (six) Branch tablet hours as needed for Pain (scale 4-6) or Pain (scale 7-10). Indication s: acute pain acetaminoph 2022-0 Yes 4647 2{tbl} Take 2 Un david en-codeine 7-25 tablets by ity of (TYLENOL-CO 00:00: mouth [place] DEINE #3) 00 every 6 Medical 300-30 mg (six) Branch tablet hours as needed for Pain (scale 4-6) or Pain (scale 7-10). Indication s: acute pain acetaminoph 2022-0 Yes 4647 2{tbl} Take 2 Un david en-codeine 7-25 tablets by ity of (TYLENOL-CO 00:00: mouth [place] DEINE #3) 00 every 6 Medical 300-30 mg (six) Branch tablet hours as needed for Pain (scale 4-6) or Pain (scale 7-10). Indication s: acute pain acetaminoph 2022-0 Yes 4647 2{tbl} Take 2 Un david en-codeine 7-25 tablets by ity of (TYLENOL-CO 00:00: mouth [place] DEINE #3) 00 every 6 Medical 300-30 mg (six) Branch tablet hours as needed for Pain (scale 4-6) or Pain (scale 7-10). Indication s: acute pain acetaminoph 2022-0 Yes 4647 2{tbl} Take 2 Un david en-codeine 7-25 tablets by ity of (TYLENOL-CO 00:00: mouth [place] DEINE #3) 00 every 6 Medical 300-30 mg (six) Branch tablet hours as needed for Pain (scale 4-6) or Pain (scale 7-10). Indication s: acute pain acetaminoph 2022-0 Yes 4647 2{tbl} Take 2 Un david en-codeine 7-25 tablets by ity of (TYLENOL-CO 00:00: mouth [place] DEINE #3) 00 every 6 Medical 300-30 mg (six) Branch tablet hours as needed for Pain (scale 4-6) or Pain (scale 7-10). Indication s: acute pain acetaminoph 2022-0 Yes 4647 2{tbl} Take 2 Un david [...] mouth 2 ity of tablet 00:00: (two) times Medical daily as Branch needed. hydrOXYzine 2022-0 Yes 25mg Take 25 mg Univers 25 mg 6-13 by mouth 2 ity of tablet 00:00: (two) times Medical daily as Branch needed. hydrOXYzine 2022-0 Yes 25mg Take 25 mg Univers 25 mg 6-13 by mouth 2 ity of tablet 00:00: (two) times Medical daily as Branch needed. gabapentin 2022-0 Yes [id number] 300mg Take 1 Univers 300 mg 4-21 capsule by ity of capsule 00:00: mouth (three) Medical times Branch daily. gabapentin 2022-0 Yes [id number] 300mg Take 1 Univers 300 mg 4-21 capsule by ity of capsule 00:00: mouth (three) Medical times Branch daily. gabapentin 2022-0 Yes [id number] 300mg Take 1 Univers 300 mg 4-21 capsule by ity of capsule 00:00: mouth (three) Medical times Branch daily. gabapentin 2022-0 Yes [id number] 300mg Take 1 Univers 300 mg 4-21 capsule by ity of capsule 00:00: mouth (three) Medical times Branch daily. gabapentin 2022-0 Yes [id number] 300mg Take 1 Univers 300 mg 4-21 capsule by ity of capsule 00:00: mouth (three) Medical times Branch daily. gabapentin 2022-0 Yes [id number] 300mg Take 1 Univers 300 mg 4-21 capsule by ity of capsule 00:00: mouth (three) Medical times Branch daily. gabapentin 2022-0 Yes [id number] 300mg Take 1 Univers 300 mg 4-21 capsule by ity of capsule 00:00: mouth (three) Medical times Branch daily. gabapentin 2022-0 Yes [id number] 300mg Take 1 Univers 300 mg 4-21 capsule by ity of capsule 00:00: mouth 3 (three) Medical times Branch daily. gabapentin 2022-0 Yes [id number] 300mg Take 1 Univers 300 mg 4-21 capsule by ity of capsule 00:00: mouth (three) Medical times Branch daily. gabapentin 2022-0 Yes [id number] 300mg Take 1 Univers 300 mg 4-21 capsule by ity of capsule 00:00: mouth 3 00 (three) Medical times Branch daily. gabapentin 2021-0 Yes [id number] 300mg Take 1 Univers 300 mg 4-21 capsule by ity of capsule 00:00: mouth 3 00 (three) Medical times Branch daily. gabapentin 2021-0 Yes [id number] 300mg Take 1 Univers 300 mg 4-21 capsule by ity of capsule 00:00: mouth 3 (three) Medical times Branch daily. gabapentin 2021-0 Yes [id number] 300mg Take 1 Univers 300 mg 4-21 capsule by ity of capsule 00:00: mouth 3 (three) Medical times Branch daily. gabapentin 2021-0 Yes [id number] 300mg Take 1 Univers 300 mg 4-21 capsule by ity of capsule 00:00: mouth 3 (three) Medical times Branch daily. gabapentin 2021-0 Yes [id number] 300mg Take 1 Univers 300 mg 4-21 capsule by ity of capsule 00:00: mouth 3 (three) Medical times Branch daily. Lancets 0 Yes [id number] Use as Uni vers (ACCU-CHEK 2-15 directed ity o f SOFTCLIX 00:00: to check [place] LANCETS) 00 blood Medical Misc sugar once Branch daily E11.9 Lancets 2021-0 Yes [id number] Use as Uni vers (ACCU-CHEK 2-15 directed ity o f SOFTCLIX 00:00: to check [place] LANCETS) 00 blood Medical Misc sugar once Branch daily E11.9 Lancets 2021-0 Yes [id number] Use as Uni vers (ACCU-CHEK 2-15 directed ity o f SOFTCLIX 00:00: to check [place] LANCETS) 00 blood Medical Misc sugar once Branch daily E11.9 Lancets 2021-0 Yes [id number] Use as Uni vers (ACCU-CHEK 2-15 directed ity o f SOFTCLIX 00:00: to check [place] LANCETS) 00 blood Medical Misc sugar once Branch daily E11.9 Lancets 2021-0 Yes [id number] Use as Uni vers (ACCU-CHEK 2-15 directed ity o f SOFTCLIX 00:00: to check [place] LANCETS) 00 blood Medical Misc sugar once Branch daily E11.9 Lancets 2021-0 Yes [id number] Use as Uni vers (ACCU-CHEK 2-15 directed ity o f SOFTCLIX 00:00: to check [place] LANCETS) 00 blood Medical Misc sugar once Branch daily E11.9 Lancets 2021-0 Yes [id number] Use as Uni vers (ACCU-CHEK 2-15 directed ity o f SOFTCLIX 00:00: to check [place] LANCETS) 00 blood Medical Misc sugar once Branch daily E11.9 Lancets 0 Yes [id number] Use as Uni vers (ACCU-CHEK 2-15 directed ity o f SOFTCLIX 00:00: to check [place] LANCETS) 00 blood Medical Misc sugar once Branch daily E11.9 Lancets 0 Yes [id number] Use as Uni vers (ACCU-CHEK 2-15 directed ity o f SOFTCLIX 00:00: to check [place] LANCETS) 00 blood Medical Misc sugar once Branch daily E11.9 Lancets 0 Yes [id number] Use as Uni vers (ACCU-CHEK 2-15 directed ity o f SOFTCLIX 00:00: to check [place] LANCETS) 00 blood Medical Misc sugar once Branch daily E11.9 Lancets 2021-0 Yes [id number] Use as Uni vers (ACCU-CHEK 2-15 directed ity o f SOFTCLIX 00:00: to check [place] LANCETS) 00 blood Medical Misc sugar once Branch daily E11.9 Lancets 2021-0 Yes [id number] Use as Uni vers (ACCU-CHEK 2-15 directed ity o f SOFTCLIX 00:00: to check [place] LANCETS) 00 blood Medical Misc sugar once Branch daily E11.9 Lancets 0 Yes [id number] Use as Uni vers (ACCU-CHEK 2-15 directed ity o f SOFTCLIX 00:00: to check [place] LANCETS) 00 blood Medical Misc sugar once Branch daily E11.9 Lancets 0 Yes [id number] Use as Uni vers (ACCU-CHEK 2-15 directed ity o f SOFTCLIX 00:00: to check [place] LANCETS) 00 blood Medical Misc sugar once Branch daily E11.9 Lancets 2021-0 Yes [id number] Use as Uni vers (ACCU-CHEK 2-15 directed ity o f SOFTCLIX 00:00: to check [place] LANCETS) 00 blood Medical Misc sugar once Branch daily E11.9 metformin 2021-0 Yes [id number] 1000mg Take 2 Univers ER 500 mg 2-08 tablets by ity of 24 hr 00:00: mouth [place] tablet 00 daily with Medical breakfast. Branch metformin 0 Yes [id number] 1000mg Take 2 Univers ER 500 mg 2-08 tablets by ity of 24 hr 00:00: mouth [place] tablet 00 daily with Medical breakfast. Branch metformin 0 Yes [id number] 1000mg Take 2 Univers ER 500 mg 2-08 tablets by ity of 24 hr 00:00: mouth [place] tablet 00 daily with Medical breakfast. Branch metformin Yes [id number] 1000mg Take 2 Univers ER 500 mg 2-08 tablets by ity of 24 hr 00:00: mouth [place] tablet 00 daily with Medical breakfast. Branch metformin 0 Yes [id number] 1000mg Take 2 Univers ER 500 mg 2-08 tablets by ity of 24 hr 00:00: mouth [place] tablet 00 daily with Medical breakfast. Branch metformin 0 Yes [id number] 1000mg Take 2 Univers ER 500 mg 2-08 tablets by ity of 24 hr 00:00: mouth [place] tablet 00 daily with Medical breakfast. Branch metformin Yes [id number] 1000mg Take 2 [facility] ER 500 mg 2-08 tablets by ity of 24 hr 00:00: mouth [place] tablet 00 daily with Medical breakfast. Branch metformin 2021-0 Yes [id number] 1000mg Take 2 Univers ER 500 mg 2-08 tablets by ity of 24 hr 00:00: mouth [place] tablet 00 daily with Medical breakfast. Branch metformin 0 Yes [id number] 1000mg Take 2 [facility] ER 500 mg 2-08 tablets by ity of 24 hr 00:00: mouth [place] tablet 00 daily with Medical breakfast. Branch metformin 0 Yes [id number] 1000mg Take 2 Univers ER 500 mg 2-08 tablets by ity of 24 hr 00:00: mouth [place] tablet 00 daily with Medical breakfast. Branch metformin 2021-0 Yes [id number] 1000mg Take 2 Univers ER 500 mg 2-08 tablets by ity of 24 hr 00:00: mouth [place] tablet 00 daily with Medical breakfast. Branch metformin 2021-0 Yes [id number] 1000mg Take 2 [facility] ER 500 mg 2-08 tablets by ity of 24 hr 00:00: mouth [place] tablet 00 daily with Medical breakfast. Branch metformin 2021-0 Yes [id number] 1000mg Take 2 Univers ER 500 mg 2-08 tablets by ity of 24 hr 00:00: mouth [place] tablet 00 daily with Medical breakfast. Branch metformin 2021-0 Yes [id number] 1000mg Take 2 Univers ER 500 mg 2-08 tablets by ity of 24 hr 00:00: mouth [place] tablet 00 daily with Medical breakfast. Branch metformin 2021-0 Yes [id number] 1000mg Take 2 Univers ER 500 mg 2-08 tablets by ity of 24 hr 00:00: mouth [place] tablet 00 daily with Medical breakfast. Branch levothyroxi 0 Yes 50ug Take 50 Uni vers ne 50 mcg 2-02 mcg by ity of tablet 00:00: mouth. [place] [facility] levothyroxi 0 Yes 50ug Take 50 Uni vers ne 50 mcg 2-02 mcg by ity of tablet 00:00: mouth. [facility] levothyroxi 0 Yes 50ug Take 50 Uni vers ne 50 mcg 2-02 mcg by ity of tablet 00:00: mouth. [facility] levothyroxi 0 Yes 50ug Take 50 Uni vers ne 50 mcg 2-02 mcg by ity of tablet 00:00: mouth. [facility] levothyroxi 0 Yes 50ug Take 50 Uni vers ne 50 mcg 2-02 mcg by ity of tablet 00:00: mouth. [facility] levothyroxi 0 Yes 50ug Take 50 Uni vers ne 50 mcg 2-02 mcg by ity of tablet 00:00: mouth. [facility] levothyroxi 0 Yes 50ug Take 50 Uni vers ne 50 mcg 2-02 mcg by ity of tablet 00:00: mouth. [facility] levothyroxi 0 Yes 50ug Take 50 Uni vers ne 50 mcg 2-02 mcg by ity of tablet 00:00: mouth. [facility] levothyroxi 0 Yes 50ug Take 50 Uni vers ne 50 mcg 2-02 mcg by ity of tablet 00:00: mouth. Medical Branch levothyroxi 0 Yes 50ug Take 50 Uni vers ne 50 mcg 2-02 mcg by ity of tablet 00:00: mouth. Medical Branch levothyroxi Yes 50ug Take 50 Uni vers ne 50 mcg 2-02 mcg by ity of tablet 00:00: mouth. Medical Branch levothyroxi 0 Yes 50ug Take 50 Uni vers ne 50 mcg 2-02 mcg by ity of tablet 00:00: mouth. Medical Branch levothyroxi 0 Yes 50ug Take 50 Uni vers ne 50 mcg 2-02 mcg by ity of tablet 00:00: mouth. Medical Branch levothyroxi Yes 50ug Take 50 Uni vers ne 50 mcg 2-02 mcg by ity of tablet 00:00: mouth. Medical Branch levothyroxi Yes 50ug Take 50 Uni vers ne 50 mcg 2-02 mcg by ity of tablet 00:00: mouth. Medical Branch pantoprazol 0 Yes 40mg Take 40 mg Univers e 40 mg EC 1-10 by mouth ity o f tablet 00:00: every [place] morning. Medical Branch pantoprazol 0 Yes 40mg Take 40 mg Univers e 40 mg EC 1-10 by mouth ity o f tablet 00:00: every [place] 00 morning. Medical Branch pantoprazol 0 2021- No 40mg Take 40 mg Univers e 40 mg EC 07-26 by mouth ity of tablet 00:00: 00:00 every [place] 00 :00 morning. Medical Branch pantoprazol 0 2021- No 40mg Take 40 mg Univers e 40 mg EC 1-04-08 by mouth ity of tablet 00:00: 00:00 every [place] 00 :00 morning. Medical Branch lamoTRIgine 2020-0 Yes 200mg Take 200 U nivers 200 mg 5-25 mg by ity of tablet 00:00: mouth at [place] [address] bedtime. Medical Branch QUEtiapine 2020-0 Yes 100mg Take 100 Un david 100 mg 5-25 mg by ity of tablet 00:00: mouth at [place] [address] bedtime. Medical Branch SERTraline 2021-0 Yes 50mg Take 50 mg U nivers 50 mg 5-25 by mouth ity of tablet 00:00: at [place] [address] bedtime. Medical Branch lamoTRIgine 2020-0 Yes 200mg Take 200 U nivers 200 mg 5-25 mg by ity of tablet 00:00: mouth at [place] [address] bedtime. Medical Branch QUEtiapine 2020-0 Yes 100mg Take 100 Un david 100 mg 5-25 mg by ity of tablet 00:00: mouth at [place] [address] bedtime. Medical Branch SERTraline 2020-0 Yes 50mg Take 50 mg U nivers 50 mg 5-25 by mouth ity of tablet 00:00: at [place] [address] bedtime. Medical Branch lamoTRIgine 2020-0 Yes 200mg Take 200 U nivers 200 mg 5-25 mg by ity of tablet 00:00: mouth at [place] [address] bedtime. Medical Branch QUEtiapine 2020-0 Yes 100mg Take 100 Un david 100 mg 5-25 mg by ity of tablet 00:00: mouth at [place] [address] bedtime. Medical Branch SERTraline 2020-0 Yes 50mg Take 50 mg U nivers 50 mg 5-25 by mouth ity of tablet 00:00: at [place] [address] bedtime. Medical Branch lamoTRIgine 2020-0 Yes 200mg Take 200 U nivers 200 mg 5-25 mg by ity of tablet 00:00: mouth at [place] [address] bedtime. Medical Branch QUEtiapine 2020-0 Yes 100mg Take 100 Un david 100 mg 5-25 mg by ity of tablet 00:00: mouth at [place] [address] bedtime. Medical Branch SERTraline 2020-0 Yes 50mg Take 50 mg U nivers 50 mg 5-25 by mouth ity of tablet 00:00: at [place] [address] bedtime. Medical Branch lamoTRIgine 2020-0 Yes 200mg Take 200 U nivers 200 mg 5-25 mg by ity of tablet 00:00: mouth at [place] [address] bedtime. Medical Branch QUEtiapine 2020-0 Yes 100mg Take 100 Un david 100 mg 5-25 mg by ity of tablet 00:00: mouth at [place] [address] bedtime. Medical Branch SERTraline 2020-0 Yes 50mg Take 50 mg U nivers 50 mg 5-25 by mouth ity of tablet 00:00: at [place] [address] bedtime. Medical Branch lamoTRIgine 1-0 Yes 200mg Take 200 U nivers 200 mg 5-25 mg by ity of tablet 00:00: mouth at [place] [address] bedtime. Medical Branch QUEtiapine 1-0 Yes 100mg Take 100 Un david 100 mg 5-25 mg by ity of tablet 00:00: mouth at [place] [address] bedtime. Medical Branch SERTraline 2020-0 Yes 50mg Take 50 mg U nivers 50 mg 5-25 by mouth ity of tablet 00:00: at [place] [address] bedtime. Medical Branch lamoTRIgine 2020-0 Yes 200mg Take 200 U nivers 200 mg 5-25 mg by ity of tablet 00:00: mouth at [place] [address] bedtime. Medical Branch QUEtiapine 2020-0 Yes 100mg Take 100 Un david 100 mg 5-25 mg by ity of tablet 00:00: mouth at [place] [address] bedtime. Medical Branch SERTraline 2020-0 Yes 50mg Take 50 mg U nivers 50 mg 5-25 by mouth ity of tablet 00:00: at [place] [address] bedtime. Medical Branch lamoTRIgine 2020-0 Yes 200mg Take 200 U nivers 200 mg 5-25 mg by ity of tablet 00:00: mouth at [place] [address] bedtime. Medical Branch QUEtiapine 2020-0 Yes 100mg Take 100 Un david 100 mg 5-25 mg by ity of tablet 00:00: mouth at [place] [address] bedtime. Medical Branch SERTraline 2020-0 Yes 50mg Take 50 mg U nivers 50 mg 5-25 by mouth ity of tablet 00:00: at [place] [address] bedtime. Medical Branch lamoTRIgine 1-0 Yes 200mg Take 200 U nivers 200 mg 5-25 mg by ity of tablet 00:00: mouth at [place] [address] bedtime. Medical Branch QUEtiapine 1-0 Yes 100mg Take 100 Un david 100 mg 5-25 mg by ity of tablet 00:00: mouth at [place] [address] bedtime. Medical Branch SERTraline 1-0 Yes 50mg Take 50 mg U nivers 50 mg 5-25 by mouth ity of tablet 00:00: at [place] [address] bedtime. Medical Branch lamoTRIgine 1-0 Yes 200mg Take 200 U nivers 200 mg 5-25 mg by ity of tablet 00:00: mouth at [place] [address] bedtime. Medical Branch QUEtiapine 2020-0 Yes 100mg Take 100 Un david 100 mg 5-25 mg by ity of tablet 00:00: mouth at [place] [address] bedtime. Medical Branch SERTraline 2020-0 Yes 50mg Take 50 mg U nivers 50 mg 5-25 by mouth ity of tablet 00:00: at [place] [address] bedtime. Medical Branch lamoTRIgine 2020-0 Yes 200mg Take 200 U nivers 200 mg 5-25 mg by ity of tablet 00:00: mouth at [place] [address] bedtime. Medical Branch QUEtiapine 2020-0 Yes 100mg Take 100 Un david 100 mg 5-25 mg by ity of tablet 00:00: mouth at [place] [address] bedtime. Medical Branch SERTraline 2020-0 Yes 50mg Take 50 mg U nivers 50 mg 5-25 by mouth ity of tablet 00:00: at [place] [address] bedtime. Medical Branch lamoTRIgine 2020-0 Yes 200mg Take 200 U nivers 200 mg 5-25 mg by ity of tablet 00:00: mouth at [place] [address] bedtime. Medical Branch QUEtiapine 2020-0 Yes 100mg Take 100 Un david 100 mg 5-25 mg by ity of tablet 00:00: mouth at [place] [address] bedtime. Medical Branch SERTraline 2020-0 Yes 50mg Take 50 mg U nivers 50 mg 5-25 by mouth ity of tablet 00:00: at [place] [address] bedtime. Medical Branch lamoTRIgine 2020-0 Yes 200mg Take 200 U nivers 200 mg 5-25 mg by ity of tablet 00:00: mouth at [place] [address] bedtime. Medical Branch QUEtiapine 2020-0 Yes 100mg Take 100 Un david 100 mg 5-25 mg by ity of tablet 00:00: mouth at [place] [address] bedtime. Medical Branch SERTraline 2020-0 Yes 50mg Take 50 mg U nivers 50 mg 5-25 by mouth ity of tablet 00:00: at [place] [address] bedtime. Medical Branch lamoTRIgine 2020-0 Yes 200mg Take 200 U nivers 200 mg 5-25 mg by ity of tablet 00:00: mouth at [place] [address] bedtime. Medical Branch QUEtiapine 2021-0 Yes 100mg Take 100 Un david 100 mg 5-25 mg by ity of tablet 00:00: mouth at [place] [address] bedtime. Medical Branch SERTraline 0 Yes 50mg Take 50 mg U nivers 50 mg 5-25 by mouth ity of tablet 00:00: at [place] [address] bedtime. Medical Branch lamoTRIgine Yes 200mg Take 200 U nivers 200 mg 5-25 mg by ity of tablet 00:00: mouth at [place] [address] bedtime. Medical Branch QUEtiapine Yes 100mg Take 100 Un david 100 mg 5-25 mg by ity of tablet 00:00: mouth at [place] [address] bedtime. Medical Branch SERTraline Yes 50mg Take 50 mg U nivers 50 mg 5-25 by mouth ity of tablet 00:00: at [place] [address] bedtime. Medical Branch Immunizations Ordered Filled Immunization Date Status Comments [facility] e Immunization Name Name Influenza Virus 2022-04-08 Completed Universit y of Vaccine Quad IM, 00:00:00 [facility] dical Preserv and ABX Branch Free 6 MO-64 YRS SARS-COV-2 COVID-19 2022-04-08 Completed Unive rsity of VACCINE 18 YRS+, 00:00:00 [place] Me dical BIVALENT 0.5ML, IM, Branc h (MODERNA BOOSTER) Influenza Virus 2022-04-08 Completed Universit y of Vaccine Quad IM, 00:00:00 [facility] dical Preserv and ABX Branch Free 6 MO-64 YRS SARS-COV-2 COVID-19 2022-04-08 Completed Unive rsity of VACCINE 18 YRS+, 00:00:00 [place] Me dical BIVALENT 0.5ML, IM, Branc h (MODERNA BOOSTER) Influenza Virus 2022-04-08 Completed Universit y of Vaccine Quad IM, 00:00:00 [place] Me dical Preserv and ABX Branch Free 6 MO-64 YRS SARS-COV-2 COVID-19 2022-04-08 Completed Unive rsity of VACCINE 18 YRS+, 00:00:00 [place] Me dical BIVALENT 0.5ML, IM, Branc h (MODERNA BOOSTER) Influenza Virus 2022-04-08 Completed Universit y of Vaccine Quad IM, 00:00:00 [place] [facility] dical Preserv and ABX Branch Free 6 MO-64 YRS SARS-COV-2 COVID-19 2022-04-08 Completed Unive rsity of VACCINE 18 YRS+, 00:00:00 [place] Me dical BIVALENT 0.5ML, IM, Branc h (MODERNA BOOSTER) Influenza Virus 2022-04-08 Completed Universit y of Vaccine Quad IM, 00:00:00 [place] Me dical Preserv and ABX Branch Free 6 MO-64 YRS SARS-COV-2 COVID-19 2022-04-08 Completed Unive rsity of VACCINE 18 YRS+, 00:00:00 [place] Me dical BIVALENT 0.5ML, IM, Branc h (MODERNA BOOSTER) Influenza Virus 2022-04-08 Completed Universit y of Vaccine Quad IM, 00:00:00 [place] Me dical Preserv and ABX Branch Free 6 MO-64 YRS SARS-COV-2 COVID-19 2022-04-08 Completed Unive rsity of VACCINE 18 YRS+, 00:00:00 [place] Me dical BIVALENT 0.5ML, IM, Branc h (MODERNA BOOSTER) Influenza Virus 2022-04-08 Completed Universit y of Vaccine Quad IM, 00:00:00 [place] Me dical Preserv and ABX Branch Free 6 MO-64 YRS SARS-COV-2 COVID-19 2022-04-08 Completed Unive rsity of VACCINE 18 YRS+, 00:00:00 [place] Me dical BIVALENT 0.5ML, IM, Branc h (MODERNA BOOSTER) Influenza Virus 2022-04-08 Completed Universit y of Vaccine Quad IM, 00:00:00 [place] Me dical Preserv and ABX Branch Free 6 MO-64 YRS SARS-COV-2 COVID-19 2022-04-08 Completed Unive rsity of VACCINE 12 YRS+, 00:00:00 [place] Me dical BIVALENT 0.5ML, IM, Branc h (MODERNA BOOSTER) Influenza Virus 2022-04-08 Completed Universit y of Vaccine Quad IM, 00:00:00 [place] Me dical Preserv and ABX Branch Free 6 MO-64 YRS SARS-COV-2 COVID-19 2022-04-08 Completed Unive rsity of VACCINE 12 YRS+, 00:00:00 [place] Me dical BIVALENT 0.5ML, IM, Branc h (MODERNA BOOSTER) Influenza Virus 2022-04-08 Completed Universit y of Vaccine Quad IM, 00:00:00 [place] Me dical Preserv and ABX Branch Free 6 MO-64 YRS SARS-COV-2 COVID-19 2022-04-08 Completed Unive rsity of VACCINE 12 YRS+, 00:00:00 [place] Me dical BIVALENT 0.5ML, IM, Branc h (MODERNA BOOSTER) Influenza Virus 2022-04-08 Completed Universit y of Vaccine Quad IM, 00:00:00 [place] Me dical Preserv and ABX Branch Free 6 MO-64 YRS SARS-COV-2 COVID-19 2022-04-08 Completed Unive rsity of VACCINE 12 YRS+, 00:00:00 [place] Me dical BIVALENT 0.5ML, IM, Branc h (MODERNA BOOSTER) Pneumococcal 20 2021-11-24 Completed Universit y of Conjugate, PCV20 00:00:00 [facility] dical (Prevnar 20) Branch Pneumococcal 20 2021-11-24 Completed Universit y of Conjugate, PCV20 00:00:00 [facility] dical (Prevnar 20) Branch Pneumococcal 20 2021-11-24 Completed Universit y of Conjugate, PCV20 00:00:00 [facility] dical (Prevnar 20) Branch Pneumococcal 20 2021-11-24 Completed Universit y of Conjugate, PCV20 00:00:00 [facility] dical (Prevnar 20) Branch Pneumococcal 20 2021-11-24 Completed Universit y of Conjugate, PCV20 00:00:00 [facility] dical (Prevnar 20) Branch Pneumococcal 20 2021-11-24 Completed Universit y of Conjugate, PCV20 00:00:00 [facility] dical (Prevnar 20) Branch Pneumococcal 20 2021-11-24 Completed Universit y of Conjugate, PCV20 00:00:00 [place] [facility] dical (Prevnar 20) Branch Pneumococcal 20 2021-11-24 Completed Universit y of Conjugate, PCV20 00:00:00 [facility] dical (Prevnar 20) Branch Pneumococcal 20 2021-11-24 Completed Universit y of Conjugate, PCV20 00:00:00 [facility] dical (Prevnar 20) Branch Pneumococcal 20 2021-11-24 Completed Universit y of Conjugate, PCV20 00:00:00 [facility] dical (Prevnar 20) Branch Pneumococcal 20 2021-11-24 Completed Universit y of Conjugate, PCV20 00:00:00 [facility] dical (Prevnar 20) Branch Pneumococcal 20 2021-11-24 Completed Universit y of Conjugate, PCV20 00:00:00 [place] [facility] dical (Prevnar 20) Branch Pneumococcal 20 2021-11-24 Completed Universit y of Conjugate, PCV20 00:00:00 [facility] dical (Prevnar 20) Branch Pneumococcal 20 2021-11-24 Completed Universit y of Conjugate, PCV20 00:00:00 [facility] dical (Prevnar 20) Branch Pneumococcal 20 2021-11-24 Completed Universit y of Conjugate, PCV20 00:00:00 [facility] dical (Prevnar 20) Branch SARS-COV-2 COVID-19 2021-05-11 Completed Unive rsity of MODERNA 12+ YRS 00:00:00 [place] [facility] ical VACCINE Branch SARS-COV-2 COVID-19 2021-05-11 Completed Unive rsity of MODERNA 12+ YRS 00:00:00 [place] [facility] ical VACCINE Branch SARS-COV-2 COVID-19 2021-05-11 Completed Unive rsity of MODERNA 12+ YRS 00:00:00 [place] [facility] ical VACCINE Branch SARS-COV-2 COVID-19 2021-05-11 Completed Unive rsity of MODERNA 12+ YRS 00:00:00 [place] [facility] ical VACCINE Branch SARS-COV-2 COVID-19 2021-05-11 Completed Unive rsity of MODERNA 12+ YRS 00:00:00 [place] [facility] ical VACCINE Branch SARS-COV-2 COVID-19 2021-05-11 Completed Unive rsity of MODERNA 12+ YRS 00:00:00 [place] [facility] ical VACCINE Branch SARS-COV-2 COVID-19 2021-05-11 Completed Unive rsity of MODERNA 12+ YRS 00:00:00 [place] [facility] ical VACCINE Branch SARS-COV-2 COVID-19 2021-05-11 Completed Unive rsity of MODERNA 12+ YRS 00:00:00 [place] [facility] ical VACCINE Branch SARS-COV-2 COVID-19 2021-05-11 Completed Unive rsity of MODERNA 12+ YRS 00:00:00 [place] [facility] ical VACCINE Branch SARS-COV-2 COVID-19 2021-05-11 Completed Unive rsity of MODERNA 12+ YRS 00:00:00 [facility] ical VACCINE Branch SARS-COV-2 COVID-19 2021-05-11 Completed Unive rsity of MODERNA 12+ YRS 00:00:00 [facility] ical VACCINE Branch SARS-COV-2 COVID-19 2021-05-11 Completed Unive rsity of MODERNA 12+ YRS 00:00:00 [facility] VACC[facility] Branch SARS-COV-2 COVID-19 2021-05-11 Completed Unive rsity of MODERNA 12+ YRS 00:00:00 [facility] VACCINE Branch SARS-COV-2 COVID-19 2021-05-11 Completed Unive rsity of MODERNA 12+ YRS 00:00:00 [facility] VACCINE Branch SARS-COV-2 COVID-19 2021-05-11 Completed Unive rsity of MODERNA 12+ YRS 00:00:00 [facility] VACCINE Branch Influenza Virus 2021-04-22 Completed Universit y of Vaccine 00:00:00 [facility] Influenza Virus 2021-04-22 Completed Universit y of Vaccine 00:00:00 [facility] Influenza Virus 2021-04-22 Completed Universit y of Vaccine 00:00:00 [facility] Influenza Virus 2021-04-22 Completed Universit y of Vaccine 00:00:00 [facility] Influenza Virus 2021-04-22 Completed Universit y of Vaccine 00:00:00 [facility] Influenza Virus 2021-04-22 Completed Universit y of Vaccine 00:00:00 [facility] Influenza Virus 2021-04-22 Completed Universit y of Vaccine 00:00:00 [facility] Influenza Virus 2021-04-22 Completed Universit y of Vaccine 00:00:00 [facility] Influenza Virus 2021-04-22 Completed Universit y of Vaccine 00:00:00 [facility] Influenza Virus 2021-04-22 Completed Universit y of Vaccine 00:00:00 [facility] Influenza Virus 2021-04-22 Completed Universit y of Vaccine 00:00:00 [facility] Influenza Virus 2021-04-22 Completed Universit y of Vaccine 00:00:00 [facility] Influenza Virus 2021-04-22 Completed Universit y of Vaccine 00:00:00 [facility] Influenza Virus 2021-04-22 Completed Universit y of Vaccine 00:00:00 [facility] Influenza Virus 2021-04-22 Completed Universit y of Vaccine 00:00:00 [facility] SARS-COV-2 COVID-19 2020-11-05 Completed Unive rsity of MODERNA 12+ YRS 00:00:00 [place] [facility] ical VACCINE Branch SARS-COV-2 COVID-19 2020-11-05 Completed Unive rsity of MODERNA 12+ YRS 00:00:00 [place] [facility] ical VACCINE Branch SARS-COV-2 COVID-19 2020-11-05 Completed Unive rsity of MODERNA 12+ YRS 00:00:00 [place] [facility] ical VACCINE Branch SARS-COV-2 COVID-19 2020-11-05 Completed Unive rsity of MODERNA 12+ YRS 00:00:00 [place] [facility] ical VACCINE Branch SARS-COV-2 COVID-19 2020-11-05 Completed Unive rsity of MODERNA 12+ YRS 00:00:00 [place] [facility] ical VACCINE Branch SARS-COV-2 COVID-19 2020-11-05 Completed Unive rsity of MODERNA 12+ YRS 00:00:00 [place] [facility] ical VACCINE Branch SARS-COV-2 COVID-19 2020-11-05 Completed Unive rsity of MODERNA 12+ YRS 00:00:00 [place] [facility] ical VACCINE Branch SARS-COV-2 COVID-19 2020-11-05 Completed Unive rsity of MODERNA 12+ YRS 00:00:00 [place] [facility] ical VACCINE Branch SARS-COV-2 COVID-19 2020-11-05 Completed Unive rsity of MODERNA 12+ YRS 00:00:00 [place] [facility] ical VACCINE Branch SARS-COV-2 COVID-19 2020-11-05 Completed Unive rsity of MODERNA 12+ YRS 00:00:00 [place] [facility] ical VACCINE Branch SARS-COV-2 COVID-19 2020-11-05 Completed Unive rsity of MODERNA 12+ YRS 00:00:00 [place] [facility] ical VACCINE Branch SARS-COV-2 COVID-19 2020-11-05 Completed Unive rsity of MODERNA 12+ YRS 00:00:00 [place] [facility] ical VACCINE Branch SARS-COV-2 COVID-19 2020-11-05 Completed Unive rsity of MODERNA 12+ YRS 00:00:00 [place] [facility] ical VACCINE Branch SARS-COV-2 COVID-19 2020-11-05 Completed Unive rsity of MODERNA 12+ YRS 00:00:00 [place] [facility] ical VACCINE Branch SARS-COV-2 COVID-19 2020-11-05 Completed Unive rsity of MODERNA 12+ YRS 00:00:00 [place] [facility] ical VACCINE Branch SARS-COV-2 COVID-19 2020-10-08 Completed Unive rsity of MODERNA 12+ YRS 00:00:00 [place] [facility] ical VACCINE Branch SARS-COV-2 COVID-19 2020-10-08 Completed Unive rsity of MODERNA 12+ YRS 00:00:00 [place] [facility] ical VACCINE Branch SARS-COV-2 COVID-19 2020-10-08 Completed Unive rsity of MODERNA 12+ YRS 00:00:00 [place] [facility] ical VACCINE Branch SARS-COV-2 COVID-19 2020-10-08 Completed Unive rsity of MODERNA 12+ YRS 00:00:00 [place] [facility] ical VACCINE Branch SARS-COV-2 COVID-19 2020-10-08 Completed Unive rsity of MODERNA 12+ YRS 00:00:00 [place] [facility] ical VACCINE Branch SARS-COV-2 COVID-19 2020-10-08 Completed Unive rsity of MODERNA 12+ YRS 00:00:00 [place] [facility] ical VACCINE Branch SARS-COV-2 COVID-19 2020-10-08 Completed Unive rsity of MODERNA 12+ YRS 00:00:00 [place] [facility] ical VACCINE Branch SARS-COV-2 COVID-19 2020-10-08 Completed Unive rsity of MODERNA 12+ YRS 00:00:00 [place] [facility] ical VACCINE Branch SARS-COV-2 COVID-19 2020-10-08 Completed Unive rsity of MODERNA 12+ YRS 00:00:00 [place] [facility] ical VACCINE Branch SARS-COV-2 COVID-19 2020-10-08 Completed Unive rsity of MODERNA 12+ YRS 00:00:00 [place] [facility] ical VACCINE Branch SARS-COV-2 COVID-19 2020-10-08 Completed Unive rsity of MODERNA 12+ YRS 00:00:00 [place] [facility] ical VACCINE Branch SARS-COV-2 COVID-19 2020-10-08 Completed Unive rsity of MODERNA 12+ YRS 00:00:00 [place] [facility] ical VACCINE Branch SARS-COV-2 COVID-19 2020-10-08 Completed Unive rsity of MODERNA 12+ YRS 00:00:00 [place] [facility] ical VACCINE Branch SARS-COV-2 COVID-19 2020-10-08 Completed Unive rsity of MODERNA 12+ YRS 00:00:00 [place] [facility] ical VACCINE Branch SARS-COV-2 COVID-19 2020-10-08 Completed Unive rsity of MODERNA 12+ YRS 00:00:00 [place] [facility] ical VACCINE Branch Vital Signs Vital Name Observation Time Observation Value Comments Source Height/Length Measured 2021-08-05 08:48:40 165 cm Weight Dosing 2021-08-05 08:48:40 89.3 kg Weight Dosing 2021-08-05 08:48:12 89.3 kg Height/Length Measured 2021-08-05 08:48:12 165 cm Height/Length Measured 2020-05-28 12:53:26 Weight Dosing 2020-05-28 12:53:26 Procedures Procedure Date / Time Performing Clinician Source Performed REFERRAL- 2022-05-11 05:01:00 Doctor Leilani, [facility] REQUEST/RESPONSE [place] [facility] DME/SUPPLY JUSTIFICATION 2022-04-28 05:01:00 Doctor Leilani, [facility] [place] [facility] PHYSICIAN ORDERS 2022-04-12 05:01:00 Doctor Leilani, [facility] [place] [facility] FLU VACC ([id number]), 6 2022-04-08 19:25:44 Manisha Norris [facility] MO-62 YRS, .5ML, IM, QUAD Medica l Branch (FLUCELVAX) SARS-COV-2 COVID-19 2022-04-08 19:25:44 Manisha Norris [facility] VACCINE 16 YRS+, BIVALENT Medica l Branch 0.5ML, IM (MODERNA BOOSTER) INSURANCE CORRESPONDENCE 2022-04-04 05:01:00 Doctor Leilani, [facility] [place] [facility] HOME HEALTH - OTHER 2022-03-24 05:01:00 Doctor Albert Duke [facility] [place] [facility] INSURANCE CORRESPONDENCE 2022-03-08 05:01:00 Doctor Leilani, [facility] Encounters Start End Encounter Admission Attending Care Care Encounter Source Date/Time Date/Time Type Type Clinicians Facility Department ID 2022-05-23 Outpatient REGINALDO Thakur [facility] [id number] Common 11:12:01 [place] [id number] [facility] 2020-05-28 Inpatient 3 Corwin Claros [facility] [id number] Medical 14:35:00 Corwin Claros [facility] 2022-10-07 2022-10-07 [facility] [id number] Univers 13:45:00 13:45:00 MANISHA levin [facility] 2022-06-14 2022-06-14 Outpatient R ARAMDETWILER [facility] [id number] Univers 16:15:00 16:15:00 ROSALES levin [facility] 2022-06-14 2022-06-14 Telephone [facility] 1.2.840.114 [id number] Univers 00:00:00 00:00:00 Rosales GUNTER 350.1.13.10 i ty of [place] [id number] Ne keaton [facility] [address] BU[address]ING 2022-05-30 2022-05-30 Telephone [facility] 1.2.840.114 [id number] Univers 00:00:00 00:00:00 [facility] 350.1.13.10 it y of [facility] 4.2.7.2.686 Jesus as SAMSON?BLEA [id number] [facility] [address] MEDICAL OFFICE BUILDING 2022-05-11 2022-05-[address] 1.2.840.114 [id number] Univers 00:00:00 00:00:00 Only Unassigned, LUDIN 350.1.13.10 ity of [place] [facility] 4.2.7.2.686 Jesus as [phone] [address] 2022-05-03 2022-05-03 Telephone [facility] 1.2.840.114 [id number] Univers 00:00:00 00:00:00 [facility] HEALTH 350.1.13.10 it y of [place] 4.2.7.2.686 Jesus as SAMSON?BLEA [phone] Ne dicmakayla SMITH [address] MEDICAL OFFICE [facility] 2022-04-28 2022-04-28 Orders Doctor DOMINGO 1.2.840.114 [id number] Univers 00:00:00 00:00:00 Only Unassigned, LUDIN 350.1.13.10 ity of [place] [facility] 4.2.7.2.686 Jesus as [phone] [address] 2022-04-26 2022-04-26 Telephone [facility] 1.2.840.114 [id number] Univers 00:00:00 00:00:00 Leela GOLDENTON 350.1.13.10 ity of [place].2.7.2.[place] [id number] [facility] 085 [facility] 2022-04-12 2022-04-12 Orders Doctor DOMINGO 1.2.840.114 [id number] Univers 00:00:00 00:00:00 Only Unassigned, LUDIN 350.1.13.10 ity of [place] [facility] 4.2.7.2.686 Jesus as [id number] [address] 2022-04-11 2022-04-11 Telephone [facility] 1.2.840.114 [id number] Univers 00:00:00 00:00:00 [facility] 350.1.13.10 it y of [place] 4.2.7.2.686 Jesus as SAMSON?BLEA [phone] [facility] SARAH [address] MEDICAL OFFICE [facility] 2022-04-08 2022-04-08 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 [facility] 1.2.840.114 [id number] Univers 14:45:00 15:00:00 Visit Manisha Norris 350.1.13.10 ity of [place] [id number] [facility] [address] 2022-04-08 2022-04-08 Outpatient Tere NOR[facility]IS [facility] [id number] Univers 13:45:00 14:35:25 MANISHA levin [facility] 2022-04-08 2022-04-08 Office [facility] 1.2.840.114 [id number] Univers 13:45:00 14:35:25 Visit Manisha Hale MARTINA 350.1.13.10 it y of [place] LENNIE [phone] Ne dical [address] 2022-04-08 2022-04-08 Outpatient Tere [facility] [id number] Univers 13:45:00 13:45:00 MANISHA levin [facility] 2022-04-08 2022-04-08 Outpatient Tere [facility] [id number] Univers 13:45:00 13:45:00 MANISHA levin [facility] 2022-04-08 2022-04-08 Outpatient Tere [facility] [id number] Univers 13:45:00 13:45:00 MANISHA levin [facility] 2022-04-08 2022-04-08 Outpatient Tere [facility] [id number] Univers 13:45:00 13:45:00 MANISHA levin [facility] 2022-04-08 2022-04-08 Outpatient Tere [facility] [id number] Univers 13:45:00 13:45:00 MANISHA mckenna [facility] 2022-04-04 2022-04-04 Orders Doctor DOMINGO 1.2.840.114 [id number] Univers 00:00:00 00:00:00 Only Unassigned, LUDIN 350.1.13.10 ity of [place] [facility] 4.2.7.2.686 Jesus as [id number] [address] 2022-03-28 2022-03-28 Telephone Kg [facility] 1.2.840.114 [id number] Univers 00:00:00 00:00:00 [facility] 350.1.13.10 it y of [place] 4.2.7.2.686 Jesus as SAMSON?BLEA [id number] Ne dical [address] MEDICAL OFFICE [facility] 2022-03-25 2022-03-25 Refill [facility] 1.2.840.114 [id number] Univers 00:00:00 00:00:00 [facility] 350.1.13.10 it y of [facility] 4.2.7.2.686 Jesus as SAMSON?BLEA [phone] Ne keaton SMITH 220 [facility] OFFICE [facility] 2022-03-24 2022-03-24 Orders Doctor DOMINGO 1.2.840.114 [id number] Univers 00:00:00 00:00:00 Only Unassigned, LUDIN 350.1.13.10 ity of [place] [facility] 4.2.7.2.686 Jesus as [phone] [address] 2022-03-18 2022-03-18 Patient [facility] 1.2.840.114 [id number] Univers 00:00:00 00:00:00 Secure Msg Manisha A PRIMARY 350.1.13.10 ity of [place].2.[place] [id number] [facility] [address] [place] [address] 2022-03-17 2022-03-17 Office Ann[facility]UN[facility] 1.2.840.114 [id number] Univers 13:00:00 13:15:00 Visit [facility] 350.1.13.10 it y of [facility] 4.2.7.2.686 Jesus as SAMSON?BLEA [phone] Ne keaton SMITH 198 [facility] OFFICE [facility] 2022-03-17 2022-03-17 Outpatient R ANNABELLE [facility] [id number] Univers 13:00:00 13:00:00 DIXIE mckenna [facility] 2022-03-15 2022-03-15 Outpatient Tere [facility] [id number] Univers 00:00:00 00:00:00 ROSALES levin [facility] 2022-03-15 2022-03-15 Outpatient Tere [facility] [id number] Univers 00:00:00 00:00:00 ROSALES levin [facility] 2022-03-15 2022-03-15 Outpatient Tere [facility] [id number] Univers 00:00:00 00:00:00 ROSALES ity of [facility] 2022-03-09 2022-03-09 Patient Alanis [facility] 1.2.840.114 [id number] Univers 00:00:00 00:00:00 Secure Msg Dixie Calderon HEALTH 350.1.13.10 ity of [place] 4.2.7.2.686 Jesus as SAMSON?BLEA [id number] [facility] [address] MEDICAL OFFICE BUILDING 2022-03-08 2022-03-08 Telephone [facility] 1.2.840.114 [id number] Univers 00:00:00 00:00:00 [facility] 350.1.13.10 it y of [place] 4.2.7.2.686 Jesus as SAMSON?BLEA [phone] [facility] Cent[facility]la [facility] 044 [facility] OFFICE [facility] 2022-03-08 2022-03-08 Orders Doctor DOMINGO 1.2.840.114 [id number] Univers 00:00:00 00:00:00 Only Unassigned, LUDIN 350.1.13.10 ity of [place] [facility] 4.2.7.2.686 Jesus as [id number] [address] 2022-03-07 2022-03-07 Orders Doctor DOMINGO 1.2.840.114 [id number] Univers 00:00:00 00:00:00 Only Unassigned, LUDIN 350.1.13.10 ity of [place] [facility] 4.2.7.2.686 Jesus as [phone] [address] 2022-03-04 2022-03-04 Patient Norris [facility] 1.2.840.114 [id number] Univers 00:00:00 00:00:00 Secure Msg Manisha A PRIMARY 350.1.13.10 ity of [place] N[place] [phone] [facility] [address] 2022-03-04 2022-03-[address] 1.2.840.114 [id number] Univers 00:00:00 00:00:00 Only Unassigned, LUDIN 350.1.13.10 ity of [place] [facility]OSPITAL 4.2.7.2.686 Ejsus as [id number] [address] 2022-02-28 2022-02-28 Refbrandi AlanisUNM CHILDREN'[facility] 1.2.840.114 [id number] Univers 00:00:00 00:00:00 [facility] 350.1.13.10 it y of [place] 4.2.7.2.686 Jesus as SAMSON?BLEA [phone] Ne keaton SMITH 198 [facility] OFFICE [facility] 2022-02-25 2022-02-25 Outpatient Te[facility] [id number] Univers 09:05:00 23:59:00 [facility] 2022-02-25 2022-02-25 Outpatient Tere [facility] [id number] Univers 09:05:00 23:59:00 [facility] 2022-02-25 2022-02-25 Office AnnabelleUN[facility] 1.2.840.114 [id number] Univers 09:30:00 09:45:00 Visit [facility] 350.1.13.10 it y of [place] 4.2.7.2.686 Jesus as SAMSON?BLEA [phone] Ne keaton SMITH 198 [facility] 2022-02-25 2022-02-25 Outpatient Tere [facility] [id number] Univers 09:30:00 09:30:00 [facility] 2022-02-24 2022-02-24 Telephone [facility] 1..840.114 [id number] Univers 00:00:00 00:00:00 [facility] 350.1.13.10 it y of [place] 4.2.7.2.686 Jesus as SAMSON?BLEA [phone] Ne keaton SMITH 198 [facility] OFFICE [facility] 2022-02-20 2022-02-20 Radha Thakur [facility] 1.2.840.114 [id number] Univers 00:00:00 00:00:00 [facility] HEALTH 350.1.13.10 it y of [place] 4.2.7.2.686 Jesus as SAMSON?BLEA [phone] Ne keaton SMITH [address] MEDICAL OFFICE BUILDING 2022-02-15 2022-02-15 Orders Doctor DOMINGO 1.2.840.114 [id number] Univers 00:00:00 00:00:00 Only Unassigned, LUDIN 350.1.13.10 ity of [place] [facility] 4.2.7.2.686 Jesus as [id number] [address] 2022-02-14 2022-02-14 Outpatient Tere [facility] [id number] Univers 14:40:00 23:59:00 DIXIE ity [facility] 2022-02-14 2022-02-14 Outpatient Tere [facility] [id number] Univers 14:40:00 23:59:00 DIXIE ity [facility] 2022-02-14 2022-02-14 Outpatient Tere [facility] [id number] Univers 14:40:00 23:59:00 [facility] 2022-02-14 2022-02-14 Outpatient Tere [facility] [id number] Univers 14:00:00 15:49:45 [facility]IE [facility] 2022-02-14 2022-02-14 Office Umberto Saul [facility] 1.2.840. 114 [id number] Univers 14:00:00 15:49:45 Visit Dearing [facility] 350.1.13.10 ity of [place] 4.2.7.2.686 Jesus as SAMSON?BLEA [phone] Ne keaton SARAH [address] MEDICAL OFFICE [facility] 2022-02-14 2022-02-[address] 1.2.840.114 [id number] Univers 00:00:00 00:00:00 Only Unassigned, LUDIN 350.1.13.10 ity of [place] [facility] 4.2.7.2.686 Jesus as [id number] [address] 2022-02-11 2022-02-[address] 1.2.840.114 [id number] Univers 00:00:00 00:00:00 Only Unassigned, LUDIN 350.1.13.10 ity of [place] [facility]OS[facility]ITAL 4.2.7.2.686 Jesus as [id number] [address] 2022-02-09 2022-02-09 Telephone [facility] 1.2.840.114 [id number] Univers 00:00:00 00:00:00 Franko HEALTH 350.1.13.10 it y of [place] 4.2.7.2.686 Jesus as SAMSON?BLEA [phone] Ne keaton SMITH [address] MEDICAL OFFICE [facility] 2022-02-08 2022-02-08 Telephone [facility] 1.2.840.114 [id number] Univers 00:00:00 00:00:00 Franko HEALTH 350.1.13.10 it y of [place] 4.2.7.2.686 Jesus as SAMSON?BLEA [phone] Ne keaton SMITH 044 [facility] 2022-02-08 2022-02-08 Telephone [facility] 1.2.840.114 [id number] Univers 00:00:00 00:00:00 [facility] 350.1.13.10 it y of [place] 4.2.7.2.686 Jesus as SAMSON?BLEA [phone] Ne keaton SMITH 198 [facility] OFFICE [facility] 2022-02-07 2022-02-07 Outpatient Tere [facility] [id number] Univers 13:30:00 13:30:00 [facility] 2022-02-07 2022-02-07 Outpatient Tere [facility] [id number] Univers 13:30:00 13:30:00 DIXIE ity [facility] 2022-02-07 2022-02-07 Outpatient Tere [facility] [id number] Univers 13:30:00 13:30:00 [facility] 2022-02-07 2022-02-07 Outpatient Tere [facility] [id number] Univers 13:30:00 13:30:00 [facility] 2022-02-07 2022-02-07 Outpatient Tere [facility] [id number] Univers 13:30:00 13:30:00 DIXIE [facility] 2022-02-07 2022-02-07 Radha [facility] 1.2.840.114 [id number] Univers 00:00:00 00:00:00 Franko HEALTH 350.1.13.10 it y of [place] 4.2.7.2.686 Jesus as SAMSON?BLEA [phone] Ne keaton SMITH [address] MEDICAL OFFICE [facility] 2022-02-07 2022-02-07 Telephone [facility] 1.2.840.114 [id number] Univers 00:00:00 00:00:00 Umberto L HEALTH 350.1.13.10 it y of [place] 4.2.7.2.686 Jesus as SAMSON?BLEA [phone] Ne keaton SMITH 198 [facility] OFFICE [facility] 2022-02-06 2022-02-06 Orders Doctor DOMINGO 1.2.840.114 [id number] Univers 00:00:00 00:00:00 Only Unassigned, LUDIN 350.1.13.10 ity of [place] [facility] 4.2.7.2.686 Jesus as [phone] [facility] [address] 2022-02-03 2022-02-03 Telephone [facility] 1.2.840.114 [id number] Univers 00:00:00 00:00:00 Umberto L HEALTH 350.1.13.10 it y of [place] 4.2.7.2.686 Jesus as SAMSON?BLEA [phone] Ne keaton SMITH [address] MEDICAL OFFICE [facility] 2022-02-01 2022-02-01 Transition PIERRE Portillo 1.2.840.114 [id number] Univers 00:00:00 00:00:00 of Care Kasandra SAUCEDO 350.1.13.10 it y of [place] 4[place]2.7.2.686 [place] [id number] [facility] [address] 2022-02-01 2022-02-01 Telephone [facility] 1.2.840.114 [id number] Univers 00:00:00 00:00:00 Umberto L HEALTH 350.1.13.10 it y of [place] 4.2.7.2.686 Jesus as SAMSON?BLEA [phone] Ne keaton SMITH [address] [place] [address] MEDICAL OFFICE BUILDING 2022-01-31 2022-01-31 Outpatient R [facility] [id number] Univers 07:00:00 20:05:00 UMBERTO [facility] 2022-01-31 2022-01-31 [facility] 1.2.840.114 [id number] Univers 07:00:00 20:05:00 Encounter Umberto GUNTER 350.1.13.10 ity [facility] 4.2.7.2.[place] SURGICAL [id number] [address] 2022-01-31 2022-01-31 Outpatient R [facility] [id number] Univers 07:00:00 20:05:00 [facility] 2022-01-31 2022-01-31 Outpatient R [facility] [id number] Univers 07:00:00 20:05:00 [facility] 2022-01-31 2022-01-31 Outpatient R [facility] [id number] Univers 07:00:00 20:05:00 [facility] 2022-01-31 2022-01-31 Outpatient R [facility] [id number] Univers 07:00:00 20:05:00 [facility] 2022-01-31 2022-01-31 Anesthesia Dinh Phillips [facility] 1.2.840.11 [id number] Univers 09:34:00 12:12:00 Event Heriberto Vyas 35 0.1.13.10 ity of [facility] 4.2.7.2.[place]ICAL [id number] [address] 2022-01-31 2022-01-31 Surgery [facility] 1.2.485.211 [id number] Univers 09:45:00 12:11:00 Umberto GUNTER 350.1.13.10 i ty of [facility] 4.2.7.2.686 [place] SURGICAL [id number] [address] 2022-01-312022-01-31 Orders Doctor DOMINGO 1.2.840.114 [id number] Univers 00:00:00 00:00:00 Only Unassigned, LUDIN 350.1.13.10 ity of [place] [facility] 4.2.7.2.686 Jesus as [id number] [facility] [address] 2022-01-29 2022-01-29 Orders Doctor DOMINGO 1.2.840.114 [id number] Univers 00:00:00 00:00:00 Only Unassigned, LUDIN 350.1.13.10 ity of [place] [facility]OS[facility]ITAL 4.2.7.2.686 Jesus as [id number] [address] 2022-01-28 2022-01-28 Laboratory Only, Adc Test [facility] 1.2.840. 114 [id number] Univers 10:15:00 10:30:00 Only Umberto Saul 350.1.13.10 ity of [place] 4.2.7.2.686 [place] TROY [id number] [address] 2022-01-28 2022-01-28 Outpatient R [facility] [id number] Univers 10:15:00 10:15:00 UMBERTO levin [facility] 2022-01-27 2022-01-27 Outpatient R [facility] [id number] Univers 13:00:00 16:30:58 UMBERTO levin [facility] 2022-01-27 2022-01-27 Outpatient R [facility] [id number] Univers 13:00:00 16:30:58 UMBERTO levin [facility] 2022-01-27 2022-01-27 Associate Professor Of Mathematics Mary, Adc Lab Main [facility] 1.2.8 40.114 [id number] Univers 15:15:00 15:30:00 Visit Umberto Saul 350.1.13.10 ity of [place] 4.2.7.2.686 [place] [facility] [id number] [address] 2022-01-27 2022-01-27 Outpatient R [facility] [id number] Univers 14:46:01 14:48:00 UMBERTO levin [facility] 2022-01-27 2022-01-27 Hospital Kg [facility] 1.2.840.114 [id number] Univers 14:00:00 14:48:00 Encounter Umberto GUNTER 350.1.13.10 ity of [facility] 4.2.7.2.686 [place] CAMPUS [id number] [facility] [address] 2022-01-27 2022-01-27 Ancillary Negro Donna Benitez [facility] 1 .2.840.114 [id number] Univers 13:00:00 13:45:00 Visit Umberto Saul 350.1.13.10 ity of [facility] 4.2.7.2.686 [place] [facility] [phone] Ne keaton [facility] [address] [facility] 2022-01-27 2022-01-27 Outpatient R [facility] [id number] Univers 13:00:00 13:00:00 [facility]O [facility] 2022-01-27 2022-01-27 Orders Doctor DOMINGO 1.2.840.114 [id number] Univers 00:00:00 00:00:00 Only Unassigned, LUDIN 350.1.13.10 ity of [place] [facility] 4.2.7.2.686 Jesus as [id number] [facility] [address] 2022-01-13 2022-01-13 Prep For [facility] 1.2.840.114 [id number] Univers 00:00:00 00:00:00 Surgery Umberto Thomas [facility] 350.1.13.10 it y of [facility] 4.2.7.2.686 Jesus as SAMSON?BLEA [phone] Ne dical KNEY [address] MEDICAL OFFICE BUILDING 2022-01-11 2022-01-11 Orders Doctor DOMINGO 1.2.840.114 [id number] Univers 00:00:00 00:00:00 Only Unassigned, LUDIN 350.1.13.10 ity of [place] [facility] 4.2.7.2.686 Jesus as [id number] [facility] [address] 2022-01-07 2022-01-07 Patient [facility] 1.2.840.114 [id number] Univers 00:00:00 00:00:00 Secure Msg Buddy GUNTER 350.1.13.10 ity of [facility] 4.2.7.2.[place] PROFESSIO [phone] Ne dical NAL 059 [facility] 2022-01-05 2022-01-05 Outpatient Tere [facility] [id number] Univers 11:26:51 23:59:00 MANISHA poonam [facility] 2022-01-05 2022-01-05 [facility] 1.2.840.114 [id number] Univers 11:26:51 23:59:00 Encounter Manisha A PRIMARY 350.1.13.10 ity of [place] 4[place]2.[place].2.[place]AVILLION [id number] [facility] [address] [place] 2022-01-05 2022-01-05 Outpatient Tere [facility] [id number] Univers 11:26:51 23:59:00 MANISHA levin [facility] 2022-01-05 2022-01-05 Outpatient Tere [facility] [id number] Univers 11:26:51 23:59:00 MANISHA levin [facility] 2022-01-05 2022-01-05 Outpatient Tere [facility] [id number] Univers 11:15:00 11:16:23 MANISHA levin [facility] 2022-01-05 2022-01-05 Office [facility] 1.2.840.114 [id number] Univers 11:15:00 11:16:23 Visit Manisha A PRIMARY 350.1.13.10 it y of [place] 4.2.7.2.[place]AV[place] [id number] Ne dical [address] [place] 2022-01-05 2022-01-05 Outpatient Tere [facility] [id number] Univers 11:15:00 11:15:00 MANISHA levin [facility] 2022-01-05 2022-01-05 Outpatient Tere [facility] [id number] Univers 11:15:00 11:15:00 MANISHA levin [facility] 2022-01-03 2022-01-03 Office [facility] 1.2.840.114 [id number] Univers 14:00:00 14:15:00 Visit Dixie HARO 350.1.13.10 it y of [place] 4.2.7.2.686 Jesus as SAMSON?BLEA [id number] Ne keaton SMITH 198 [facility] OFFICE [facility] 2022-01-03 2022-01-03 Outpatient R [facility] [id number] Univers 14:00:00 14:00:00 IDXIE ity [facility] 2021-12-31 2021-12-31 Telephone [facility] 1.2.840.114 [id number] Univers 00:00:00 00:00:00 Umberto Thomas HEALTH 350.1.13.10 it y of [place] 4.2.7.2.686 Jesus as SAMSON?BLEA [phone] [facility] NEAL 198 [facility] 2021-12-31 2021-12-31 Telephone [facility] 1.2.340.336 [id number] Univers 00:00:00 00:00:00 Buddy GUNTER [id number] ity [facility] [id number] [phone] Ne maureenal NAL [address] [place] [address] 2021-12-29 2021-12-29 [facility] [id number] Univers 15:49:46 23:59:00 HARJINDERLILIA ity o [facility] 2021-12-29 2021-12-29 Outpatient R GUANAKO, [facility] [id number] Univers 15:49:46 23:59:00 FREEDOMDAVID ity o f [facility] 2021-12-15 2021-12-15 Office [facility] [id number] Univers 14:20:00 14:20:00 Visit Buddy GUNTER [id number] ity [facility] [id number] [phone] Ne dical NAL 9 [facility] 2021-12-15 2021-12-15 Outpatient [facility] [id number] Univers 14:20:00 14:17:40 QIALILIA bryanty o f [facility] 2021-12-15 2021-12-15 Outpatient R GUANAKO [facility] [id number] Univers 14:20:00 14:17:40 BUDDY bryanty o f [facility] 2021-12-07 2021-12-07 [facility] [id number] Univers 10:15:00 10:30:00 Visit [facility] [id number] it y of [place] GUNTER 4.2.7.2.686 Jesus as SAMSON?BLEA [phone] [facility] [address] [place] MED[facility] 2021-12-07 2021-12-07 [facility] [id number] Univers 10:15:00 10:15:00 FRANKO levin [facility] 2021-12-03 2021-12-03 Patient Isabel [facility] [id number] [id number] Univers 00:00:00 00:00:00 Secure Msg Faith GUNTER [id number] ity of [id number] [facility] [phone] [facility] 2021-12-03 2021-12-03 Orders Doctor DOMINGO [id number] [id number] Univers 00:00:00 00:00:00 Only Unassigned, LUDIN [id number] ity of [place] [facility] 4.2.7.2.686 Jesus as [phone] [facility] [address] [place] 2021-11-23 2021-11-23 [facility] 1.2.840.114 [id number] Univers 14:21:11 23:59:00 Encounter Rosales GUNTER 350.1.13.10 ity of [place] [id number] [facility] [address] [place] 2021-11-23 2021-11-23 [facility] [id number] Univers 00:00:00 23:59:00 ROSALES levin [facility] 2021-11-23 2021-11-23 Outpatient [facility] [id number] Univers 00:00:00 23:59:00 [facility] 2021-11-23 2021-11-23 [facility] 1.2.840.114 [id number] Univers 14:00:00 14:20:00 Encounter Rosales GUNTER 350.1.13.10 ity of [place] [phone] [facility] [address] [place] 2021-11-23 2021-11-23 Outpatient [facility] [id number] Univers 00:00:00 14:20:00 [facility] 2021-11-23 2021-11-23 Outpatient [facility] [id number] Univers 00:00:00 14:20:00 [facility] 2021-11-23 2021-11-23 Orders Doctor DOMINGO 1.2.840.114 [id number] Univers 00:00:00 00:00:00 Only Unassigned, LUDIN 350.1.13.10 ity of [place] [facility] 4.2.7.2.686 Jesus as [phone] [facility] [address] [place] 2021-11-22 2021-11-22 Patient [facility] 1.2.840.114 [id number] Univers 00:00:00 00:00:00 [facility] 350.1.13.10 ity of [place] GUNTER 4.2.7.2.686 Jesus as SAMSON?BLEA [phone] Ne keaton SMITH [address] [place] MEDICAL OFFICE BUILDING 2021-11-05 2021-11-05 Office [facility] 1.2.581.295 [id number] Univers 11:00:00 11:00:00 Visit Umberto Thomas HEALTH 350.1.13.10 it y of [place] 4.2.7.2.686 Jesus as SAMSON?BLEA [phone] Ne keaton SMITH [address] [place] MEDICAL OFFICE BUILDING 2021-11-05 2021-11-05 Outpatient R [facility] [id number] Univers 11:00:00 09:10:39 UMBERTO itmckenna [facility] 2021-11-05 2021-11-05 Outpatient R [facility] [id number] Univers 11:00:00 09:10:39 UMBERTO levin [facility] 2021-11-05 2021-11-05 Outpatient R KG [facility] [id number] Univers 11:00:00 09:10:39 UMBERTO levin [facility] 2021-11-05 2021-11-05 Outpatient R KG [facility] [id number] Univers 11:00:00 09:10:39 UMBERTO levin [facility] 2021-11-02 2021-11-02 Telephone [facility] 1.2.496.912 [id number] Univers 00:00:00 00:00:00 Manisha A PRIMARY 350.1.13.10 it y of [place] [id number] [address] 2021-10-26 2021-10-26 Patient [facility] 1.2.840.114 [id number] Univers 00:00:00 00:00:00 Secure Msg Manisha A MULTISPEC 350.1.13.10 ity of [place] 4.2.7.2.686 [facility] [phone] [address] [facility] 2021-10-25 2021-10-25 Refill Jr [facility] 1.2.840.114 [id number] Univers 00:00:00 00:00:00 Manisha A PRIMARY 350.1.13.10 it y of [place] 4[place].2.[place] [phone] Ne dic[address] 2021-10-07 2021-10-07 Telephone [facility] 1.2.199.472 [id number] Univers 00:00:00 00:00:00 Manisha A MULTISPEC 350.1.13.10 ity of [place] 4.2.7.2.686 [facility] [phone] [address] [facility] 2021-10-07 2021-10-07 Telephone Ofe [facility] 1.2.840.114 [id number] Univers 00:00:00 00:00:00 [facility] 350.1.13.10 it y of [place] GUNTER 4.2.7.2.686 Jesus as SAMSON?BLEA [phone] Ne keaton [address] MEDICAL OFFICE [facility] 2021-10-05 2021-10-05 Outpatient Tere [facility] [id number] Univers 12:04:52 23:59:00 MANISHA levin [facility] 2021-10-05 2021-10-05 Hospital [facility] 1.2.840.114 [id number] Univers 12:04:52 23:59:00 Encounter Manisha Hale PRIMARY 350.1.13.10 ity of [place] [id number] [facility] [address] [place] 2021-10-05 2021-10-05 Outpatient Tere [facility] [id number] Univers 12:04:52 23:59:00 MANISHA mannymckenna [facility] 2021-10-05 2021-10-05 Outpatient Tere [facility] [id number] Univers 12:04:52 23:59:00 MANISHA mannymckenna [facility] 2021-10-05 2021-10-05 Outpatient Tere [facility] [id number] Univers 12:04:52 23:59:00 MANISHA ity [facility] 2021-10-05 2021-10-05 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 [facility] 1.2.840.114 [id number] Univers 12:15:00 12:30:00 Visit Manisha Norris PRIMARY 350.1.13.10 ity of [place] 4[place]2.[place].2.[place] [id number] [facility] [address] [place] 2021-10-05 2021-10-05 Outpatient Tere [facility] [id number] Univers 12:15:00 12:15:00 MANISHA itmckenna [facility] 2021-10-05 2021-10-05 Office [facility] 1.2.840.114 [id number] Univers 11:15:00 11:50:24 Visit Manisha Hale PRIMARY 350.1.13.10 it y of [place] 4[place] [id number] [address] 2021-10-04 2021-10-04 Refbrandi Norris WAAMBER 1.2.840.114 [id number] Univers 00:00:00 00:00:00 Manisha Hale PRIMARY 350.1.13.10 it y of [place] 4[place].2.[place] [id number] [address] 2021-08-31 2021-08-31 Patient [facility] 1.2.840.114 [id number] Univers 00:00:00 00:00:00 Secure Msg Guerita CATLIN 350.1.13.10 ity [facility] 4.2.7.2.[place] [id number] [address] 2021-08-30 2021-08-30 Telephone [facility]UN[facility] 1.2.905.978 [id number] Univers 00:00:00 00:00:00 Guerita CATLIN 350.1.13.10 i ty of [place] [phone] [address] 2021-08-24 2021-08-24 Office [facility] 1.2.840.114 [id number] Univers 11:30:00 12:16:13 Visit [facility] 350.1.13.10 it y of [place] 4.2.7.2.686 Jesus as SAMSON?BLEA [phone] [address] OFFICE [facility] 2021-08-24 2021-08-24 Outpatient R GAVIN [facility] [id number] Univers 11:30:00 12:16:13 [facility] 2021-08-24 2021-08-24 Outpatient R GAVIN [facility] [id number] Univers 11:30:00 11:30:00 [facility] 2021-08-24 2021-08-24 Radha Norris [facility] 1.2.840.114 [id number] Univers 00:00:00 00:00:00 Manisha Hale PRIMARY 350.1.13.10 it y of [place] 4.2.[place].2.[place] [id number] Ne dicnv [address] [place] 2021-08-13 2021-08-13 Mariebrandi [facility] 1.2.840.114 [id number] Univers 00:00:00 00:00:00 Wentmj GUNTER 350.1.13.10 i ty [facility] 4.2.7.2.[place] [phone] [facility] NAL [address] [facility] 2021-07-28 2021-07-28 Office Chad [facility] 1.2.300.732 [id number] Univers 10:40:00 11:00:00 Visit Leela GUNTER 350.1.13.10 ity of [place].2.[place] [id number] [facility] NAL 085 [facility] 2021-07-28 2021-07-28 Outpatient R ALICIA HOLDENCTBehzad [facility] [id number] Univers 10:40:00 10:40:00 [facility] 2021-07-28 2021-07-28 Outpatient R [facility] [id number] Univers 10:40:00 10:40:00 CHAD [facility] 2021-07-28 2021-07-28 Orders Doctor DOMINGO 1.2.840.114 [id number] Univers 00:00:00 00:00:00 Only Unassigned, LUDIN 350.1.13.10 ity of [place] [facility] 4.2.7.2.686 Jesus as [phone] [address] 2021-07-27 2021-07-27 Patient Ofe [facility] 1.2.840.114 [id number] Univers 00:00:00 00:00:00 [facility] 350.1.13.10 ity of [place] 4.2.7.2.686 Jesus as SAMSON?BLEA [phone] Ne dical SARAH [address] [place] MEDICAL OFFICE BUILDING 2021-07-20 2021-07-20 Orders Doctor DOMINGO 1.2.840.114 [id number] Univers 00:00:00 00:00:00 Only Unassigned, LUDIN 350.1.13.10 ity of [place] [facility] 4.2.7.2.686 Jesus as [phone] [facility] [address] [place] 2021-07-16 2021-07-16 Telephone Jr [facility] 1.2.409.342 [id number] Univers 00:00:00 00:00:00 Manisha A PRIMARY 350.1.13.10 it y of [place] [phone] Ne dicmakayla [address] [place] 2021-07-13 2021-07-13 Telephone Jr [facility] 1.2.291.941 [id number] Univers 00:00:00 00:00:00 Manisha A PRIMARY 350.1.13.10 it y of [place]2.[place].2.[place] [phone] Ne dicmakayla [address] [place] 2021-07-06 2021-07-06 [facility] 1.2.840.114 [id number] Univers 12:14:46 23:59:00 Encounter Manisha A PRIMARY 350.1.13.10 ity of [place] 4.2.7.2.[place] [phone] Ne dical [address] [place] 2021-07-06 2021-07-06 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 [facility] 1.2.840.114 [id number] Univers 13:45:00 14:00:00 Visit Jr Manisha A PRIMARY 350.1.13.10 ity of [place] 4.2.[place].2.[place] [phone] Ne dical [address] [place] 2021-07-06 2021-07-06 Outpatient R JR [facility] [id number] Univers 11:15:00 12:04:47 MANISHA ity of [facility] 2021-07-06 2021-07-06 Outpatient R JR [facility] [id number] Univers 11:15:00 12:04:47 MANISHA levin [facility] 2021-07-06 2021-07-06 Office [facility] 1.2.840.114 [id number] Univers 11:15:00 12:04:47 Visit Manisha Hale MARTINA 350.1.13.10 it y of [place] [phone] [address] 2021-07-06 2021-07-06 Outpatient Tere [facility] [id number] Univers 11:15:00 11:15:00 MANISHA poonam [facility] 2021-06-29 2021-06-29 Orders Doctor DOMINGO 1.2.840.114 [id number] Univers 00:00:00 00:00:00 Only Unassigned, LUDIN 350.1.13.10 ity of [place] [facility]PITAL 4.2.7.2.686 Jesus as [phone] [address] 2021-06-17 2021-06-17 Telephone Ofe [facility] 1.2.840.114 [id number] Univers 00:00:00 00:00:00 [facility] 350.1.13.10 it y of [place] [facility] 4.2.7.2.686 Jesus as SAMSON?BLEA [phone] [facility] [address] [place] MEDICAL OFFICE [facility] 2021-06-17 2021-06-[address] 1.2.840.114 [id number] Univers 00:00:00 00:00:00 Only Unassigned, LUDIN 350.1.13.10 ity of [place] [facility]OSPITAL 4.2.7.2.686 Jesus as [id number] [address] 2021-06-09 2021-06-09 Outpatient Tere [facility] [id number] Univers 10:20:41 23:59:00 MANISHA levin [facility] 2021-06-09 2021-06-09 Outpatient Tere [facility] [id number] Univers 10:20:41 23:59:00 MANISHA levin [facility] 2021-06-09 2021-06-09 Outpatient Tere [facility] [id number] Univers 10:20:41 23:59:00 MANISHA levin [facility] 2021-06-09 2021-06-09 Outpatient [facility] [id number] Univers 10:20:41 23:59:00 MANISHA levin [facility] 2021-06-09 2021-06-09 [facility] 1.2.840.114 [id number] Univers 10:20:41 23:59:00 Encounter Manisha Hale HEALTH 350.1.13.10 ity of [place] 4.2.7.2.686 Jesus as SAMSON?BLEA [phone] Ne keaton SMITH [address] [place] MEDICAL OFFICE [facility] 2021-06-09 2021-06-09 [facility] 1.2.840.114 [id number] Univers 10:20:27 23:59:00 Encounter Manisha Hale HEALTH 350.1.13.10 ity of [place] 4.2.7.2.686 Jesus as SAMSON?BLEA [id number] Ne keaton SMITH [address] [place] MEDICAL OFFICE [facility] 2021-06-09 2021-06-09 Outpatient Tere [facility] [id number] Univers 12:00:00 12:00:00 MANISHA levin [facility] 2021-06-09 2021-06-09 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 Professor 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, [facility] 1.2.840.1 [id number] Univers 10:20:19 10:35:19 Visit Franko Thakur [facility] 350.1.13 .10 ity of [place] 4.2.7.2.686 Jesus as SAMSON?BLEA [phone] Ne keaton SMITH [address] [place] MEDICAL OFFICE [facility] 2021-06-09 2021-06-09 Office Kell [facility] 1.2.840.114 [id number] Univers 09:52:48 10:07:48 Visit Franko [employer] 350.1.13.10 it y of [place] 4.2.7.2.686 Jesus as SAMSON?BLEA [phone] Ne keaton SMITH 044 [facility] OFFICE [facility] 2021-06-09 2021-06-09 Outpatient [facility] [id number] Univers 10:00:00 10:00:00 FRANKO levin [facility] 2021-06-08 2021-06-08 Outpatient Tere [facility] [id number] Univers 10:45:00 11:40:22 MANISHA poonam [facility] 2021-06-08 2021-06-08 Outpatient Tere [facility] [id number] Univers 10:45:00 11:40:22 MANISHA levin [facility] 2021-06-08 2021-06-08 Office [facility] 1.2.840.114 [id number] Univers 10:30:31 11:40:22 Visit Manisha MACK 350.1.13.10 it y of [facility] 4.2.7.2.686 [place] HOG[place] [id number] [address] 2021-06-08 2021-06-08 Outpatient Tere [facility] [id number] Univers 10:45:00 10:45:00 MANISHA levin [facility] 2021-06-08 2021-06-08 Telephone [facility] 1.2.840.114 [id number] Univers 00:00:00 00:00:00 [facility] 350.1.13.10 it y of [place] GUNTER 4.2.7.2.686 Jesus as SAMSON?BLEA [id number] [address] MEDICAL OFFICE BUILDING 2021-06-08 2021-06-08 Orders Doctor DOMINGO 1.2.840.114 [id number] Univers 00:00:00 00:00:00 Only Unassigned, LUDIN 350.1.13.10 ity of [place] [facility] 4.2.7.2.686 Jesus as [phone] [address] 2021-06-07 2021-06-07 Outpatient R OFE [facility] [id number] Univers 08:45:00 08:45:00 FRANKO levin [facility] 2021-05-25 2021-05-25 [facility] 1.2.840.114 [id number] Univers 14:30:47 23:59:00 Encounter Rosales GUNTER 350.1.13.10 ity of [place] 4.2.7.2.[place] [phone] [facility] [address] 2021-05-25 2021-05-25 Outpatient R [facility] [id number] Univers 14:29:53 14:29:53 ROSALES ity of [facility] 2021-05-25 2021-05-25 [facility] 1.2.840.114 [id number] Univers 14:29:53 14:29:53 Encounter Rosales GUNTER 350.1.13.10 ity of [place] 4.2.7.2.686 [place] [phone] [facility] [address] 2021-05-25 2021-05-25 Case [facility] 1.2.457.294 [id number] Univers 00:00:00 00:00:00 Management Rosales GUNTER 350.1.13.10 ity of [place] 4.2.7.2.[place] [phone] Ne dical NAL [address] [facility] 2021-05-21 2021-05-21 Outpatient R [facility] [id number] Univers 11:30:00 11:30:00 ity of [facility] 2021-05-21 2021-05-21 Outpatient R [facility] [id number] Univers 11:30:00 11:30:00 ity of [facility] 2021-05-19 2021-05-19 Telephone [facility] 1.2.840.114 [id number] Univers 00:00:00 00:00:00 [facility] 350.1.13.10 it y of [place] GUN[place] 4.2.7.2.686 Jesus as SAMSON?BLEA [phone] Ne dical VALEY [address] [place] MEDICAL OFFICE BUILDING 2021-05-04 2021-05-04 Telephone Oleg [facility] 1.2.840.114 [id number] Univers 00:00:00 00:00:00 Teresa Gunter 350.1.13.10 ity of [place]2.7.2.[place] [phone] Ne dical nal [address] Building 2021-04-28 2021-04-28 Orders Doctor DOMINGO 1.2.840.114 [id number] Univers 00:00:00 00:00:00 Only Unassigned, LUDIN 350.1.13.10 ity of [place] [facility] 4.2.7.2.686 Jesus as [phone] [facility] [address] 2021-04-21 2021-04-21 Office Chad [facility] 1.2.166.924 [id number] Univers 14:41:37 15:01:37 Visit Leela Gunter 350.1.13.10 it[place] of [place] 4[place]2.[place].2.686 [place] [facility] [phone] [place] [id number] [facility] 2021-04-21 2021-04-21 Outpatient R LEELA HOLDEN [facility] [id number] Univers 15:00:00 15:00:00 LEELA HOLDEN [facility] 2021-04-07 2021-04-07 Outpatient R LEELA HOLDEN [facility] [id number] Univers 19:30:00 19:30:00 LEELA HOLDEN [facility] 2021-04-07 2021-04-07 Associate Professor Of Mathematics 1, [facility] Sleep Lab Bed [facility] 1. 2.840.114 [id number] Univers 14:08:40 16:38:40 Visit Leela Holden 350.1.13. 10 ity [facility] 4.2.7.2.686 [place] [phone] [facility] [address] 2021-04-06 2021-04-06 Outpatient R ARAM [facility] [id number] Univers 13:30:00 14:54:02 ROSALES levin [facility] 2021-04-06 2021-04-06 Office Aram WAAMBER Scott 1.2.840.114 [id number] Univers 13:15:14 13:45:14 Visit Rosales Jiménez 350.1.13.10 it y of Women's 4.2.[place].2.[place] [id number] [facility] [address] 2021-04-06 2021-04-06 Outpatient R ARAM, [facility] [id number] Univers 13:30:00 13:30:00 ROSALES ity of [facility] 2021-04-05 2021-04-05 Laboratory Only, Adc Test [facility] 1.2.840. 114 [id number] Univers 10:13:44 10:28:44 Only Anderson Hilton 350.1.13.10 ity of [place] 4.2.7.2.686 [facility] [phone] [address] 2021-04-05 2021-04-05 Laboratory Only, Adc Test [facility] 1.2.840. 114 [id number] Univers 10:13:44 10:28:44 Only Anderson Hilton 350.1.13.10 ity of [place] 4.2.7.2.686 [facility] [phone] [address] 2021-04-05 2021-04-05 Outpatient R [facility] [id number] Univers 10:15:00 10:15:00 ity of [facility] 2021-04-05 2021-04-05 Orders Doctor DOMINGO 1.2.840.114 [id number] Univers 00:00:00 00:00:00 Only Unassigned, LUDIN 350.1.13.10 ity of [place] [facility] 4.2.7.2.686 Jesus as [id number] [address] 2021-04-05 2021-04-05 Orders Doctor ALNE 1.2.840.114 [id number] Univers 00:00:00 00:00:00 Only Unassigned, LUDIN 350.1.13.10 ity of [place] [facility]ITAL 4.2.7.2.686 Jesus as [id number] [address] 2021-03-24 2021-03-24 Telephone Ofe [facility] 1.2.840.114 [id number] Univers 00:00:00 00:00:00 [facility] 350.1.13.10 it y of [place] 4.2.7.2.686 Jesus as Samson?Blea [phone] Ne keaton [address] Medical Office Building 2021-03-24 2021-03-24 Telephone [facility] 1.2.840.114 [id number] Univers 00:00:00 00:00:00 [facility] 350.1.13.10 it y of [place] 4.2.7.2.686 Jesus as Samson?Blea [phone] [facility] 044 [facility] Office [facility] 2021-03-23 2021-03-23 Telephone [facility] 1.2.840.114 [id number] Univers 00:00:00 00:00:00 [facility] 350.1.13.10 it y of [place] 4.2.7.2.686 Jesus as Samson?Blea [phone] [address] Office [facility] 2021-03-10 2021-03-10 [facility] 1.2.538.196 [id number] Univers 14:29:05 14:49:05 Visit Strahil T [place] 350.1.13.10 it[place] of [place].2.[place] [id number] [address] 2021-03-10 2021-03-10 [facility] 1.2.546.568 [id number] Univers 14:29:05 14:49:05 Visit Strahil T [place] 350.1.13.10 it[place] of [place] 4[place]2.7.2.686 [place] [phone] [address] 2021-03-10 2021-03-10 Outpatient R LEELA HOLDEN [facility] [id number] Univers 14:40:00 14:40:00 ATAALICIA RILEYHIL ity of [facility] 2021-03-10 2021-03-10 Patient [facility] 1.2.840.114 [id number] Univers 00:00:00 00:00:00 [facility] 350.1.13.10 ity of [place] 4.2.7.2.686 Jesus as Samson?Blea [phone] [facility] 220 [facility] Office [facility] 2021-03-09 2021-03-09 Outpatient R RHETTJENN [facility] [id number] Univers 10:00:00 10:00:00 FRANKO itmckenna [facility] 2021-03-09 2021-03-09 Office Ofe [facility] 1.2.840.114 [id number] Univers 09:32:44 09:47:44 Visit Franko [facility] 350.1.13.10 it y of [place] 4.2.7.2.686 Jesus as Samson?Blea [phone] [facility] [address] [place] Medical Office Building 2021-03-05 2021-03-05 Patient Gavin, [facility] 1.2.840.114 [id number] Univers 00:00:00 00:00:00 Secure Msg Valenzuela [facility] 350.1.13.10 ity of [place] 4.2.7.2.686 Jesus as Samson?Blea [phone] [facility] [address] [facility] Office [facility] 2021-03-04 2021-03-04 Outpatient R LEELA HOLDEN [facility] [id number] Univers 19:30:00 19:30:00 LEELA HOLDEN ity of [facility] 2021-03-04 2021-03-04 Associate Professor Of Mathematics 1, [facility] Sleep Lab Bed [facility] 1. 2.840.114 [id number] Univers 15:12:29 17:42:29 Visit Leela Holden 350.1.13. 10 [place] [phone] [facility] [address] [place] 2021-03-04 2021-03-04 Orders Doctor DOMINGO 1.2.840.114 [id number] Univers 00:00:00 00:00:00 Only Unassigned, LUDIN 350.1.13.10 ity of [place] [facility] 4.2.7.2.686 Jesus as [phone] [facility] [address] 2021-03-02 2021-03-02 Laboratory Only, [facility] Test [facility] 1.2.840. 114 [id number] Univers 14:35:01 14:50:01 Only Anderson Hilton [id number] [place].7.2.[place] [phone] [facility] [address] 2021-03-02 2021-03-02 Outpatient R [facility] [id number] Univers 14:30:00 14:30:00 ity of [facility] 2021 2021 Associate Professor Of Mathematics Mary, Adc Lab Main [facility] 1.2.8 40.114 [id number] Univers 12:29:22 12:44:22 Visit Guerita Cordova 350.1.13.10 [place] 4[place]2.7.2.[place] [phone] [facility] 2021 2021 [facility] 1.2.840.114 [id number] Univers 10:58:32 12:05:09 Visit Guerita Gunter 350.1.13.10 i ty of [place] [id number] [phone] [facility] 2021 2021 [facility] [id number] Univers 10:58:32 12:05:09 Visit Guerita uGnter [id number] i [id number] [phone] [facility] 220 [facility] 2021 2021 Outpatient [facility] [id number] Univers 10:30:00 12:05:09 [facility] 2021 2021 Outpatient [facility] [id number] Univers 10:30:00 10:30:00 [facility] [address] [id number] Univers 00:00:00 00:00:00 Only Unassigned, LUDIN [id number] ity of [place] [facility] [id number] Jesus as [phone] [facility] [address] 2021-02-03 2021-02-03 Office [facility] [id number] Univers 08:57:54 09:17:54 Visit Aliciaroberbehzad Matias Lyric [id number] [id number] [phone] Ne dical nal 085 [facility] 2021-02-03 2021-02-03 Outpatient R LEELA HOLDEN [facility] [id number] Univers 09:00:00 09:00:00 LEELA HOLDEN ity of [facility] 2021-02-02 2021-02-02 Office [facility] [id number] Univers 09:10:37 09:40:37 Visit [facility] [id number] it y of [place] [id number] Jesus as Professio [phone] Ne dical nal [address] [place] [address] 2021-02-02 2021-02-02 Outpatient R OFE [facility] [id number] Univers 09:30:00 09:30:00 FRANKO y [facility] 2021-02-02 2021-02-02 Orders Doctor DOMINGO [id number] Univers 00:00:00 00:00:00 Only Unassigned, LUDIN [id number] ity of [place] [facility] [id number] Jesus as [phone] [address] 2021-02-01 2021-02-01 Outpatient R OFE [facility] [id number] Univers 13:30:00 13:30:00 FRANKO ity of [facility] 2020-07-01 2020-07-01 Outpatient KUSH ITALO [facility] [id number] [facility] 06:05:00 16:15:00 [place] 2020-05-28 2020-05-28 Outpatient 3 Andry Dinero [facility] [id number] Medical 12:12:00 12:12:00 Andry Dinero [facility] 2020-05-28 2020-05-28 Outpatient 3 Andry Dinero [id number] Medical 12:12:00 12:12:00 Andry Dinero 1112 [facility] Results Test Description Test Time Test Comments Results Result Comments Source IR Thyroid Biopsy 2020-05-28 15:04:14 [facility] 1965 Sex: F *Patient: [...] 3:04 pm IR Thyroid Biopsy 2020-05-28 15:04:14 [facility] : 1965 Sex: F *Patient: [...] t he patient is critically ill. POC [id number] 12:21:41 Test Item Value Reference Range Interpretation Comments Glucose POC (test 105 mg/dL 74-106 POC Glucos e used on code = Glucose POC) critical ly ill patients is considered " off-label use" and has no t been cleared or appr jeannette by the FDA. Altern ative testing methods should be considered i f the patient is crit ically ill. Prothrombin Time and [id number] 11:11:55 Test Item Value Reference Range Interpretation Comments Prothrombin Time (test code = 10.8 seconds 9.0-12.0 Prothrombin Time) INR (test code = INR) 1.0 ratio 0.9-1.2 Partial Thromboplastin [id number] 11:11:55 Test Item Value Reference Range Interpretation Comments Partial Thromboplastin Time 27.8 seconds 24.0-35.0 (test code = Partial Thromboplastin Time) IG [id number] 10:58:55 Test Item Value Reference Range Interpretation Comments IG (test code = IG) 0 % 0-5 IG Abs (test code = IG Abs) 0 x10 N Complete Blood Count with [id number] 10:58:54 Test Item Value Reference Range Interpretation [...] = Slide Review) GL_SET_SLIDE _REVIEW_A UTO Automated [id number] 10:58:54 Test Item Value Reference Range Interpretation Comments Neutro Auto (test code = Neutro Auto) 60.9 % N Lymph Auto (test code = Lymph Auto) 27.7 % N [place] Auto (test code = [place] Auto) 8.5 % N Eos, Auto (test code = Eos, Auto) 1.8 % N Basophil Auto (test code = Basophil 0.9 % N Auto) Neutro Absolute (test code = Neutro 2.7 x10 2.7-7.3 Absolute) Lymph Absolute (test code = Lymph 1.2 x10 0.8-3.5 Absolute) [place] Absolute (test code = [place] 0.4 x10 0.3-0.9 Absolute) Eos Absolute (test code = Eos 0.1 x10 0.0-0.3 Absolute) Baso Absolute (test code = Baso 0.0 x10 0.0-0.1 Absolute)
[2022-06-15] MEDS ORDERED: MECLIZINE HCL 12.5 MG TAB ONE (14:41)
[2022-06-15 14:42] LABS: Hematocrit 39.1 % (36.0-45.0); Lymphocytes % 26.2 % (15.3-44.8); MCV 87.1 fL (80-100); MPV 8.9 fL (7.6-11.3); RBC Red Blood Cell Count 4.49 M/uL (3.86-4.86)
[2022-06-15 15:01] LABS: Potassium 4.5 mmol/L (3.5-5.1)
[2022-06-15 15:02] LABS: Albumin 4.1 g/dL (3.4-5.0); Bilirubin Total 0.4 mg/dL (0.2-1.0); Protein, Total 7.8 g/dL (6.4-8.2); Troponin High Sensitivity 3.2 pg/mL (<58.9)
--- NOTE | 2022-06-15 15:11 | RAD REPORT ---
EXAM DESCRIPTION: CT - Head Brain Wo Cont - 06/15/2022 2:55 pm CLINICAL HISTORY: Transient ischemic attack (TIA) COMPARISON: No comparisons TECHNIQUE: All CT scans are performed using dose optimization technique as appropriate and may inclu de automated exposure control or mA/KV adjustment according to patient size. FINDINGS: No intracranial hemorrhage, hydrocephalus or extra-axial fluid collection.No areas of brai n edema or evidence of midline shift. Mild cerebral atrophy. The paranasal sinuses and mastoids are clear. The calvarium is intact. IMPRESSION: No acute intracranial abnormality.
--- NOTE | 2022-06-15 15:50 | EDPHYS ---
Physician Documentation [facility] Name: Lashon Baca Age: 57 yrs Sex: Female : 1965 Arrival Date: 06/15/2022 Time: 14:08 Bed 8 Private MD: CONCHA Physician Mario Reese HPI: 06/15 15:05 This 57 yrs old Female presents to ER via EMS with complaints of Headache, rt Dizziness. 15:05 The patient complains of pain to the top of head. Onset: The symptoms/episode rt began/occurred 2 day(s) ago. Presents to the ED with a dizziness described as a vertigo as well as a headache for the past 3 days. Patient reportedly had intermittent difficulty with speech, being slurred and nonfluent, this did resolve on its own. The patient was seen at her physical therapist office today where they noticed a left-sided facial droop, prompting them to send her for further evaluation. Patient states that this has also resolved. Denies any other numbness or weakness. Symptoms are moderate in severity, no other aggravating or alleviating factors. Historical: - Allergies: 14:08 Cymbalta (Rash); aa5 14:08 Savella (Rash); aa5 14:08 tramadol (itching ); aa5 - PMHx: 14:08 Bipolar disorder; Diabetes - NIDDM; Fibromyalgia; Rheumatoid Arthritis; Sleep apnea; aa5 Diabetes Mellitus Type 2; Kidney stone; Silas's disease; - PSHx: 14:08 R hip Replacement; hysterectomy; Cholecystectomy; section; L knee; L side of aa5 thyroid removed (Cancerous lumps); - Immunization history:: Adult Immunizations. - Social history:: Smoking status: Patient reports the use of cigarette tobacco products, 4-5 cigarettes day . - Family history:: not pertinent. ROS: 15:05 Constitutional: Negative for fever, chills, and weight loss, Eyes: Negative for injury, rt pain, redness, and discharge, ENT: Negative for injury, pain, and discharge, Neck: Negative for injury, pain, and swelling, Cardiovascular: Negative for chest pain, palpitations, and edema, Respiratory: Negative for shortness of breath, cough, wheezing, and pleuritic chest pain, Abdomen/GI: Negative for abdominal pain, nausea, vomiting, diarrhea, and constipation, MS/Extremity: Negative for injury and deformity, Skin: Negative for injury, rash, and discoloration, Psych: Negative for depression, anxiety, suicide ideation, homicidal ideation, and hallucinations. 15:05 Neuro: Positive for Headache, speech disturbance, facial droop. Exam: 15:05 Constitutional: This is a well developed, well nourished patient who is awake, alert, rt and in no acute distress. Head/Face: Normocephalic, atraumatic. Eyes: Pupils equal round and reactive to light, extra-ocular motions intact. Lids and lashes normal. Conjunctiva and sclera are non-icteric and not injected. Cornea within normal limits. Periorbital areas with no swelling, redness, or edema. ENT: Nares patent. No nasal discharge, no septal abnormalities noted. Tympanic membranes are normal and external auditory canals are clear. Oropharynx with no redness, swelling, or masses, exudates, or evidence of obstruction, uvula midline. Mucous membranes moist. Neck: Trachea midline, no thyromegaly or masses palpated, and no cervical lymphadenopathy. Supple, full range of motion without nuchal rigidity, or vertebral point tenderness. No Meningismus. Chest/axilla: Normal chest wall appearance and motion. Nontender with no deformity. No lesions are appreciated. Cardiovascular: Regular rate and rhythm with a normal S1 and S2. No gallops, murmurs, or rubs. Normal PMI, no JVD. No pulse deficits. Respiratory: Lungs have equal breath sounds bilaterally, clear to auscultation and percussion. No rales, rhonchi or wheezes noted. No increased work of breathing, no retractions or nasal flaring. Abdomen/GI: Soft, non-tender, with normal bowel sounds. No distension or tympany. No guarding or rebound. No evidence of tenderness throughout. Skin: Warm, dry with normal turgor. Normal color with no rashes, no lesions, and no evidence of cellulitis. MS/ Extremity: Pulses equal, no cyanosis. Neurovascular intact. Full, normal range of motion. Neuro: Awake and alert, GCS 15, oriented to person, place, time, and situation. Cranial nerves II-XII grossly intact. Motor strength 5/5 in all extremities. Sensory grossly intact. Cerebellar exam normal. Normal gait. Psych: Awake, alert, with orientation to person, place and time. Behavior, mood, and affect are within normal limits. 15:05 ECG was reviewed by the Attending Physician. Vital Signs: 14:08 BP 133 / 83; Pulse 69; Resp 18 S; Temp 98.2(O); Pulse Ox 98% on R/A; Weight 92.08 kg aa5 (R); Height 5 ft. 5 in. (165.10 cm) (R); 18:54 BP 116 / 70; Pulse 59; Resp 17; Pulse Ox 96% on R/A; ap3 19:26 BP 122 / 61; Pulse 72; Resp 18; Pulse Ox 99% on R/A; kl 21:10 BP 121 / 77; Pulse 72; Resp 16; Temp 98(O); Pulse Ox 98% on R/A; kl 14:08 Body Mass Index 33.78 (92.08 kg, 165.10 cm) aa5 MDM: 14:12 Patient medically screened. rt 15:49 Differential diagnosis: cerebral vascular accident, hyponatremia, intracerebral rt hemorrhage, migraine. Data reviewed: vital signs, nurses notes, lab test result(s), EKG, radiologic studies. ED course: Patient presents to the ED with headache, reported dizziness. The patient reported a left-sided facial droop earlier today which has since resolved. Patient also reports intermittent speech disturbance, none currently. Her NIHSS is 0 in the ED, for this reason, she is not a candidate for thrombolytics. CT scan of the head is unremarkable, she will be admitted for further care. 06/15 14:27 Order name: CBC with Diff; Complete Time: 15:09 rt 06/15 14:27 Order name: CMP; Complete Time: 15:09 rt 06/15 14:27 Order name: Troponin High Sensitivity; Complete Time: 15:09 rt 06/15 16:38 Order name: SARS RAPID; Complete Time: 17:09 aa5 06/15 17:35 Order name: Hemoglobin A1c EDGA 06/15 17:35 Order name: Lipid Profile EDGA 06/15 17:37 Order name: Creatine Phosphokinase EDGA 06/15 17:37 Order name: Magnesium EDGA 06/15 17:37 Order name: NT PRO-BNP EDGA 06/15 17:37 Order name: Phosphorus EDGA 06/15 17:37 Order name: T4 Free EDGA 06/15 17:37 Order name: Thyroid Stimulating Hormone EDMS 06/15 17:37 Order name: Urinalysis EDMS 06/15 17:37 Order name: Basic Metabolic Panel EDMS 06/15 14:27 Order name: EKG; Complete Time: 14:28 rt 06/15 14:27 Order name: EKG - Nurse/Tech; Complete Time: 14:48 rt 06/15 14:27 Order name: CT Head Brain wo Cont; Complete Time: 15:21 rt 06/15 17:28 Order name: CONS Physician Consult EDMS 06/15 17:34 Order name: Echo with Doppler EDMS 06/15 17:34 Order name: ERT ORTHOSTATIC V/S EDMS 06/15 17:34 Order name: ERT ORTHOSTATIC V/S EDMS 06/15 17:34 Order name: Carotid Artery Bilateral EDMS 06/15 17:37 Order name: Basic Metabolic Panel EDMS 06/15 17:37 Order name: CBC with Automated Diff EDMS 06/15 17:37 Order name: CBC with Automated Diff EDMS 06/15 17:41 Order name: 60g Consistent Carbohydrate (ADA 1800/2000) EDMS 06/15 17:41 Order name: Brain Wo Cont EDMS 06/15 20:43 Order name: Lipid Profile EDMS EC:05 Rate is 59 beats/min. Rhythm is regular, Normal Sinus Rhythm with No ectopy. QRS [place] rt is Normal. ID interval is normal. QRS interval is normal. QT interval is normal. No Q waves. T waves are Normal. No ST changes noted. Administered Medications: 14:48 Drug: Meclizine 50 mg Route: PO; ap3 18:00 Follow up: Response: No adverse reaction ap3 Disposition Summary: 06/15/22 15:49 Hospitalization Ordered Hospitalization Status: Observation rt Provider: Rustam Ramirez rt Location: Telemetry/MedSurg (observation) rt Condition: Stable rt Problem: new rt Symptoms: have improved rt Bed/Room Type: Standard rt Room Assignment: 209(06/15/22 20:20) cg Diagnosis - Left Facial Droop rt - Speech distubance rt Forms: - Medication Reconciliation Form rt - SBAR form rt Signatures: Dispatcher [employer] EDMS Felecia Murphy RN Mary Wu RN RN aa5 Elisabet Hitchcock RN RN cg Quyen Gallardo RN RN ap3 Mario Reese MD MD rt Corrections: (The following items were deleted from the chart) 20:20 15:49 rt cg
--- NOTE | 2022-06-15 15:50 | ER ---
Nurse's Notes [facility] Name: Lashon Baca Age: 57 yrs Sex: Female : 1965 Arrival Date: 06/15/2022 Time: 14:08 Bed 8 Private MD: Diagnosis: Left Facial Droop;Speech distubance Presentation: 06/15 14:08 Chief complaint: Patient states: dizziness and headache that began Monday. Pt reports aa5 she is currently receiving physical rehab post R hip replacement. Pt states "over my stomach felt bloated and just uncomfortable, that started feeling better Monday (06/12/22) but I still have the nausea from it". 14:08 Coronavirus screen: At this time, the client does not indicate any symptoms associated aa5 with coronavirus-19. Ebola Screen: Patient denies travel to an Ebola-affected area in the 21 days before illness onset. Initial Sepsis Screen: Does the patient meet any 2 criteria? No. Patient's initial sepsis screen is negative. Does the patient have a suspected source of infection? No. Patient's initial sepsis screen is negative. Risk Assessment: Do you want to hurt yourself or someone else? Patient reports no desire to harm self or others. Onset of symptoms was May 2022. 14:08 Acuity: KENNETH 3 aa5 14:08 Method Of Arrival: EMS: [facility] aa5 Historical: - Allergies: 14:08 Cymbalta (Rash); aa5 14:08 Savella (Rash); aa5 14:08 tramadol (itching ); aa5 - PMHx: 14:08 Bipolar disorder; Diabetes - NIDDM; Fibromyalgia; Rheumatoid Arthritis; Sleep apnea; aa5 Diabetes Mellitus Type 2; Kidney stone; Silas's disease; - PSHx: 14:08 R hip Replacement; hysterectomy; Cholecystectomy; section; L knee; L side of aa5 thyroid removed (Cancerous lumps); - Immunization history:: Adult Immunizations. - Social history:: Smoking status: Patient reports the use of cigarette tobacco products, 4-5 cigarettes day . - Family history:: not pertinent. Screenin:19 Abuse screen: Denies threats or abuse. Nutritional screening: No deficits noted. aa5 Tuberculosis screening: No symptoms or risk factors identified. Fall Risk None identified. Assessment: 14:09 General: Appears comfortable, Behavior is calm, cooperative. Pain: Complains of pain in aa5 top of head Pain does not radiate. Pain currently is 8 out of 10 on a pain scale. Quality of pain is described as aching, Pain began Monday Is continuous. Neuro: Level of Consciousness is awake, alert, obeys commands, Oriented to person, place, time, situation, Loading Unit Tool Setter are equal bilaterally Moves all extremities. Speech is normal, Facial symmetry appears normal, Pupils are PERRLA, Reports dizziness, headache. Cardiovascular: Heart tones S1 S2 present Rhythm is regular. Respiratory: Airway is patent Respiratory effort is even, unlabored, Respiratory pattern is regular, symmetrical. GI: Abdomen is round non-distended, Bowel sounds present X 4 quads. Abd is soft and non tender X 4 quads. Reports nausea, Patient currently denies diarrhea, vomiting. : No signs and/or symptoms were reported regarding the genitourinary system. EENT: No signs and/or symptoms were reported regarding the EENT system. Derm: Skin is pink, warm \\T\\ dry. Musculoskeletal: currently receiving physical rehab for R hip replacement. 14:48 Reassessment: Patient and/or family updated on plan of care and expected duration. Pain ap3 level reassessed. Patient is alert, oriented x 3, equal unlabored respirations, skin warm/dry/pink. 17:59 Reassessment: Patient and/or family updated on plan of care and expected duration. Pain ap3 level reassessed. Patient is alert, oriented x 3, equal unlabored respirations, skin warm/dry/pink. 18:53 Reassessment: Patient and/or family updated on plan of care and expected duration. Pain ap3 level reassessed. Patient is alert, oriented x 3, equal unlabored respirations, skin warm/dry/pink. 19:25 Reassessment: Patient appears in no apparent distress at this time. Patient and/or kl family updated on plan of care and expected duration. Pain level reassessed. Patient states feeling better. Patient states symptoms have improved. pt awake alert no complaints tolerating po without difficulty. Vital Signs: 14:08 BP 133 / 83; Pulse 69; Resp 18 S; Temp 98.2(O); Pulse Ox 98% on R/A; Weight 92.08 kg aa5 (R); Height 5 ft. 5 in. (165.10 cm) (R); 18:54 BP 116 / 70; Pulse 59; Resp 17; Pulse Ox 96% on R/A; ap3 19:26 BP 122 / 61; Pulse 72; Resp 18; Pulse Ox 99% on R/A; kl 21:10 BP 121 / 77; Pulse 72; Resp 16; Temp 98(O); Pulse Ox 98% on R/A; kl 14:08 Body Mass Index 33.78 (92.08 kg, 165.10 cm) aa5 ED Course: 14:08 Patient arrived in ED. ap3 14:09 Mario Reese MD is Attending Physician. rt 14:09 Arm band placed on. aa5 14:09 Patient has correct armband on for positive identification. Placed in gown. Bed in low aa5 position. Call light in reach. Side rails up X2. 14:11 Mary Reid, RN is Primary Nurse. aa5 14:13 Triage completed. aa5 14:13 Inserted saline lock: 20 gauge in right antecubital area, using aseptic technique. ap3 Blood collected. 14:57 CT Head Brain wo Cont In Process Unspecified. EDMS 15:48 Rustam Ramirez MD is Hospitalizing Provider. rt 17:59 No provider procedures requiring assistance completed. ap3 21:11 Patient admitted, IV remains in place. Administered Medications: 14:48 Drug: Meclizine 50 mg Route: PO; ap3 18:00 Follow up: Response: No adverse reaction ap3 Medication: 17:59 VIS not applicable for this client. ap3 Outcome: 15:49 Decision to Hospitalize by Provider. rt 21:11 Admitted to Med/surg accompanied by tech, via wheelchair, room 209, Report called to yoel roland 21:11 Condition: stable 21:11 Discharge instructions given to patient, Instructed on the need for admit, Demonstrated understanding of instructions. 21:19 Patient left the ED. yoel Signatures: Dispatcher [employer] EDMS Felecia Murphy RN RN kl Calderon, Audri, RN ETELVINA aa5 Quyen Gallardo RN RN ap3 Mario Reese MD MD rt
[2022-06-15 17:03] LABS: SARS-CoV-2 Antigen Rapid Res Negative (Negative)
[2022-06-15] MEDS ORDERED: ACETAMINOPHEN 325 MG TABLET PO PRN (17:27)
[2022-06-15] MEDS ORDERED: HYDROCODONE/APAP 5/325 MG TAB PO PRN (17:27)
[2022-06-15] MEDS ORDERED: ONDANSETRON 4 MG/2 ML VIAL IV PRN (17:34)
[2022-06-15] MEDS ORDERED: GLUCAGON 1 MG/VIAL IM PRN (17:37)
--- NOTE | 2022-06-15 17:40 | P.HP ---
Certification for Inpatient Patient admitted to: Observation With expected LOS: <2 Midnights Patient will require the following post-hospital care: None Practitioner: I am a practitioner with admitting privileges, knowledge of patient current condition, hospital course, and medical plan of care. Services: Services provided to patient in accordance with Admission requirements found in Title 42 Section 412.3 of the Code of Federal Regulations Patient History Date of Service: 06/15/22 Reason for admission: Left facial droop and slurred speech History of Present Illness: Patient is a 57-year-old female with a past medical history significant for bipolar disorder, fibromyalgia, rheumatoid arthritis, sleep apnea, DM 2, Silas's disease, nicotine dependence who presents with complaint of dizziness and headache onset 3 days ago. Patient reported that she had a near syncopal episode 2 days ago. Patient reported that she also had slurred speech and blurry vision. Patient reported that she had a right hip replacement and while at her physical therapy session today patient was noted to have a left sided facial droop. Patient reported associated signs and symptoms of nausea and tongue numbness. Patient denies any other signs and symptoms. Symptoms are aggravated or relieved by nothing. Patient was sent to the hospital for medical evaluation. Allergies duloxetine [From Cymbalta] Allergy (Verified 02/02/22 07:46) UNK milnacipran [From Savella] Allergy (Verified 02/02/22 07:46) UNK tramadol [From Ultram] Allergy (Verified 02/02/22 07:46) UNK Home Medications: Amox/Clavulanate [Augmentin 875-125 Tab] 1 tab PO BID 7 Days #14 tab 02/03/22 Codeine/APAP [Tylenol #3*] 1 tab PO Q4H PRN tab 02/03/22 - Past Medical/Surgical History Diabetic: Yes -: RA -: NIDDM2 -: Fibromyalgia -: RA -: R hip replacement - Family History Mother -: Hypertension, Diabetes Father -: Diabetes, Other (see notes) (HLD) - Social History Smoking Status: Current every day smoker Counseled patient to stop smoking for: less than 10 minutes Smoking therapy provided: Yes Patient receptive to therapy: Yes Alcohol use: Yes CD- Drugs: No Caffeine use: Yes Place of Residence: Home Review of Systems General: Unremarkable Eyes: Vision Change ENT: Other (Tongue numbness) Respiratory: Unremarkable Cardiovascular: Other (Dizziness) Gastrointestinal: Nausea Genitourinary: Unremarkable Musculoskeletal: Other (Chronic pain syndrome) Integumentary: Unremarkable Neurological: Numbness, Other (Dizziness, headache, left facial droop, near syncope, slurred speech) Lymphatics: Unremarkable Physical Examination - Physical Exam General: Alert, In no apparent distress, Oriented x3, Cooperative HEENT: Atraumatic, PERRLA, Mucous membr. moist/pink, EOMI, Sclerae nonicteric Neck: Supple, 2+ carotid pulse no bruit, No LAD, Without JVD or thyroid abnormality Respiratory: Clear to auscultation bilaterally, Normal air movement Cardiovascular: No edema, Regular rate/rhythm, Normal S1 S2 Capillary refill: <2 Seconds Gastrointestinal: Normal bowel sounds, Soft and benign, Non-distended, No tenderness Musculoskeletal: No clubbing, No swelling, No tenderness Integumentary: No rashes, No breakdown, No significant lesion, No tenderness/swelling Neurological: Normal speech, Normal tone, Normal affect Lymphatics: No axilla or inguinal lymphadenopathy - Studies Laboratory Data (last 24 hrs) 06/15/22 14:30: Sodium 138, Potassium 4.5, BUN 17, Creatinine 0.82, Glucose 119 H, Total Bilirubin 0.4, AST 12 L, ALT 27, Alkaline Phosphatase 112 06/15/22 14:30: WBC 7.80, Hgb 13.2, Hct 39.1, Plt Count 271 Assessment and Plan - Plan -- Left facial droop\Slurred speech. Currently resolved. Neurology consulted. MRI brain for further evaluation. Continue aspirin and statin. Further management per neurologist. --Near syncope. Echocardiogram and carotid Doppler pending. We will get some orthostatic vital signs. Fall precautions --DM2. BS monitoring with sliding scale insulin. --Fibromyalgia\rheumatoid arthritis\chronic pain syndrome. We will manage pain with current pain medication regimen. -- Nicotine dependence. Patient counseled on tobacco cessation. Refuses nicotine patch. --Bipolar disorder\depression\anxiety disorder. Continue home medications when available.. -- SHANAE. CPAP at bedtime. --CKD 2. Stable. We will continue to monitor renal functions. --Headache. Tylenol as needed. --Nausea. Antiemetics on board. --Left hip arthroplasty. Patient follows up physical therapy outpatient. Continue supportive care. --DVT prophylaxis with Lovenox subQ. Discharge Plan: Home Plan to discharge in: 48 Hours - Advance Directives Does patient have a Living Will: No Does patient have a Durable POA for Healthcare: No - Code Status/Comfort Care Code Status Assessed: Yes Physician Review: Patient Assessed, Agree with Above Assessment and Plan Critical Care: No
[2022-06-15] MEDS ORDERED: ASPIRIN 81 MG CHEWABLE TABLET PO ONE (18:00)
[2022-06-15] MEDS ORDERED: D10W 250 ML BAG IV PRN (18:10)
--- NOTE | 2022-06-15 18:36 | RAD REPORT ---
EXAM DESCRIPTION: - CP - 06/15/2022 6:20 pm CLINICAL HISTORY: Near syncope, Dizziness COMPARISON: Thyroid Para Parotid Gland dated 04/23/2021 TECHNIQUE: Real-time sonographic evaluation of both carotid systems was performed. Doppler interroga tion was performed with waveform tracing bilaterally. FINDINGS: Normal high resistance waveforms are noted in both external carotid arteries. The common c arotid arteries and internal carotid arteries show normal low resistance waveforms. Minimal soft plaque at the carotid bifurcations. Peak systolic and end diastolic velocity values and the ICA/CCA ratios are in the non-hemodynamically significant range. Antegrade flow seen in both vertebral arteries. IMPRESSION: No significant atherosclerotic changes noted. No evidence of a hemodynamically significant stenosis.
[2022-06-15 20:42] LABS: Magnesium 2.3 mg/dL (1.8-2.4); Phosphorus 3.4 mg/dL (2.5-4.9); Thyroid Stimulating Hormone 2.96 uIU/mL (0.360-3.740)
[2022-06-15] MEDS: INSULIN -REGULAR HUMAN 50 UNIT/0.5 ML ML SQ SCH (21:00)
[2022-06-15] MEDS ORDERED: ATORVASTATIN 40 MG TAB PO SCH (21:00)
[2022-06-15 21:29] VITALS: BMI 33.7
[2022-06-15] MEDS ORDERED: QUETIAPINE 100MG TAB PO SCH (21:55)
[2022-06-15] MEDS ORDERED: SERTRALINE HCL 50 MG TAB PO SCH (21:55)
[2022-06-15] MEDS ORDERED: MELATONIN 5 MG TABLET PO PRN (22:08)
[2022-06-15] MEDS: ENOXAPARIN 40 MG/0.4 ML SQ SCH (22:18)
[2022-06-15] MEDS: hydrOXYzine HCL 25 MG TAB PO SCH (22:18)
[2022-06-15] MEDS: GABAPENTIN 300 MG CAP PO SCH (22:18)
[2022-06-15] MEDS ORDERED: ATORVASTATIN 20 MG TAB PO ONE (23:00)
[2022-06-15] MEDS ORDERED: lamoTRIgine 100 MG TAB PO ONE (23:00)
[2022-06-16 04:06] LABS: Absolute Lymphocytes (CBC) 2.3 K/uL (0.7-4.9); Hematocrit 36.8 % (36.0-45.0); Lymphocytes % 30.8 % (15.3-44.8); MCV 88.3 fL (80-100); RBC Red Blood Cell Count 4.17 M/uL (3.86-4.86)
[2022-06-16 04:18] LABS: Potassium 4.5 mmol/L (3.5-5.1)
[2022-06-16] MEDS ORDERED: LEVOTHYROXINE SOD 0.05 MG TABLET PO SCH (06:00)
[2022-06-16] MEDS: INSULIN -REGULAR HUMAN 50 UNIT/0.5 ML ML SQ SCH ×3 (07:30→16:18)
[2022-06-16] MEDS ORDERED: PANTOPRAZOLE 40MG TABLET PO SCH (07:30)
[2022-06-16] MEDS: hydrOXYzine HCL 25 MG TAB PO SCH (08:27)
[2022-06-16] MEDS: GABAPENTIN 300 MG CAP PO SCH (08:27)
[2022-06-16] MEDS: ENOXAPARIN 40 MG/0.4 ML SQ SCH (08:27)
[2022-06-16] MEDS ORDERED: ASPIRIN 81 MG CHEWABLE TABLET PO SCH (09:00)
[2022-06-16 11:39] VITALS: O2SAT 94
--- NOTE | 2022-06-16 13:22 | EKG ---
Test Date: 2022-06-15 Test Time: 14:45:46 Milking Machine Operator: ALP MEASUREMENT RESULTS: Intervals: Rate: 59 PA: 192 QRSD: 76 QT: 418 QTc: 413 [place]: P: 43 PA: 192 QRS: 18 T: 25 INTERPRETIVE STATEMENTS: Sinus bradycardia Otherwise normal ECG No previous ECG available for comparison Electronically Signed On 06-16-22 13:21:43 STRATEGIC PLANNING CONSULTANT by Romulo Fisher
--- NOTE | 2022-06-16 15:48 | RAD REPORT ---
EXAM DESCRIPTION: MRI - Brain Wo Cont - 06/16/2022 3:09 pm CLINICAL HISTORY: CVA Headache, drowsiness, CVA COMPARISON: Head Brain Wo Cont dated 06/15/2022 TECHNIQUE: Multi-sequence, multiplanar MR imaging of the brain was performed without contrast. FINDINGS: No intracranial hemorrhage, hydrocephalus or extra-axial fluid collections. No edema or sh ift of midline structures. No findings to suspect brain mass. DWI is negative for acute CVA. Midline structures are normally formed. Mastoid air cells and paranasal sinuses are clear. IMPRESSION: Negative for acute CVA or other acute intracranial abnormality.
[2022-06-16 17:41] VITALS: BP 124/75; TEMP 97.1
--- NOTE | 2022-06-16 20:14 | CON ---
Reason For Consultation: Consultation called because of possible stroke with left facial droop and s lurred speech. History Of Present Illness: Ms. Baca is a 57-year-old patient with multiple medical problems inclu ding diabetes mellitus type 2, Silas disease, bipolar disorder, fibromyalgia, rheumatoid arthriti s, and recent right hip replacement who developed slurred speech and blurred vision while in a physic al therapy session on 06/15/2022. There was left facial droop along with that. Also the patient had nausea and numbness and tingling of her tongue. She came to [facility] for evaluation and had a head CT scan done at 02:25 p.m. on 06/15/2022, with symptom onset reported actually about 2 day s prior with dizziness and vertigo and coming to the hospital at 2:08 on 06/15/2022. Due to that del ay and actual onset as detected by the evaluating physician in the emergency room, she was never cons idered a candidate for TNKs. Her head CT scan showed no acute ischemic hemorrhagic findings and an N IH Stroke Scale was 0. She was admitted for stroke workup. Subsequent brain MRI done today on the was negative for any acute ischemic hemorrhagic stroke. Her carotid artery ultrasound showed no e vidence of hemodynamically significant stenosis at the carotid artery. Blood work was essentially un remarkable for complete blood count with differential. Basic metabolic panel shows slightly elevated chloride of 108, BUN slightly elevated at 21, glucose ranged from 98 to 198, calcium 8.1. Her lipid panel was done on the and showed triglycerides of 192, cholesterol elevated at 239, LDL cholest mary elevated to 145, HDL 56, TSH 2.96. Past Medical History: As noted. Past Surgical History: Right hip replacement. Allergies: DULOXETINE AND TRAMADOL. Home Medications: Amoxicillin clavulanic acid 1 twice daily and Tylenol 3 every 4 hours as needed. Family History: Positive for hypertension and diabetes in mother. Father also had diabetes. Social History: Patient smokes half pack cigarettes daily. Drinks alcohol occasionally and caffeina radha beverages. Review of Systems: She denies fevers, chills, myalgias, arthralgias, rash, headache, weight change, psychiatric issues, or dermatological issues. She does have the reported although resolved now, left facial drooping, nu mbness at the tip of the tongue, and slurred speech. Physical Examination: Vital Signs: Blood pressure 124/75, pulse 61, respiratory rate 16, temperature 97.1, and oxygen satu ration 98%. General: Ms. Baca is resting in bed. She is in no acute distress. HEENT: She is normocephalic, atraumatic. Sclerae anicteric. Oropharynx pink and moist. Neck: Supple. Chest: Clear. Heart: Regular. Extremities: No edema, cyanosis, or clubbing. Neurological: She is alert and oriented to situation, place, and person. She has no expressive or r eceptive aphasias. Cranial nerves show no focal deficits on 2 through 12. On motor, she has good to ne and 5/5 strength proximally and distally in the upper and lower extremities. Coordination is inta ct in upper and lower extremities. Reflexes 2+ in upper and lower extremities and symmetric and agai n coordination is intact. Gait with good stance and right arm swing. Assessment: Ms. Baca is a 57-year-old patient with multiple stroke risk factors as noted above. S he had a possible transient ischemic attack. She does have dyslipidemia, hypertension, and diabetes mellitus. Plan: Aspirin 81 mg daily and Lipitor 40 mg at bedtime. Continue Lamictal 200 mg daily and Synthroi d 0.05 mg daily. After discharge, she may follow up with her bobbin painter whom she is seeing and Dr. Tirado in [facility] a month. ABEBA/JAYLEN Voice ID: [id number] Report ID: [id number]
[2022-06-16] MEDS ORDERED: lamoTRIgine 100 MG TAB PO SCH (21:00)
[2022-06-16] MEDS ORDERED: ATORVASTATIN 20 MG TAB PO SCH ×2 (21:00)
--- NOTE | 2022-06-17 14:28 | ECHO ---
HEIGHT: 5 ft 5 in WEIGHT: 203 lb 0.026 oz DATE OF STUDY: 06/16/[address]: Kevin Juarez 2-DIMENSIONAL: YES M.MODE: YES DOPPLER: YES COLOR FLOW: YES TDS: NO PORTABLE: YES DEFINITY: NO BUBBLE STUDY: NO DIAGNOSIS: NEAR SYNCOPE CARDIAC HISTORY: CATHERIZATION: NO SURGERY: NO PROSTHETIC VALVE: NO PACEMAKER: NO MEASUREMENTS (cm) DIASTOLIC (NORMALS) SYSTOLIC (NORMALS) IVSd 1.2 (0.6-1.2) LA Diam 2.9 (1.9-4.0) LVEF 60-65% LVIDd 3.7 (3.5-5.7) LVIDs 2.0 (2.0-3.5) %FS 48% LVPWd 1.2 (0.6-1.2) Ao Diam 2.4 (2.0-3.7) 2 DIMENSIONAL ASSESSMENT: RIGHT ATRIUM: NORMAL LEFT ATRIUM: NORMAL RIGHT VENTRICLE: NORMAL LEFT VENTRICLE: NORMAL TRICUSPID VALVE: MILD TRICUSPID REGURGITATION MITRAL VALVE: MILD MITRAL REGURGITATION PULMONIC VALVE: NORMAL AORTIC VALVE: NORMAL PERICARDIAL EFFUSION: NONE AORTIC ROOT: NORMAL LEFT VENTRICULAR WALL MOTION: NORMAL. DOPPLER/COLOR FLOW: SEE BELOW. COMMENTS: 1. NORMAL LEFT VENTRICULAR EJECTION FRACTION 60-65% 2. NORMAL WALL MOTION 3. NORMAL DIASTOLIC FUNCTION. 4. MILD MITRAL/TRICUSPID REGURGITATION 5. NORMAL RIGHT VENTRICULAR SYSTOLIC PRESSURE OF 20-25mmHg. TECHNOLOGIST: MARY JANE GUZMAN
== END 2022-06-16 16:56 | disposition home or self-care (01) ==
LOC: ER 14:02 → ERHOLD 17:23 → 2ND 21:21
PROVIDERS: ADMIT Hospitalist; ATTEND Hospitalist
DX: R29.810 Facial weakness (principal); R55 Syncope and collapse; R47.81 Slurred speech; M79.7 Fibromyalgia; F31.9 Bipolar disorder, unspecified; M06.9 Rheumatoid arthritis, unspecified; G47.30 Sleep apnea, unspecified; E11.9 Type 2 diabetes mellitus without complications; E06.3 Autoimmune thyroiditis; F17.210 Nicotine dependence, cigarettes, uncomplicated; E78.5 Hyperlipidemia, unspecified; Z88.6 Allergy status to analgesic agent
CPT/HCPCS: 36415; 70450; 70551; 80048; 80053; 80061; 82550; 82947; 83036; 83735; 83880; 84100; 84439; 84443; 84484; 85025; 87811; 93005; 93306; 93880; 94660; 99285; G0378; J1650; J8597

== ENCOUNTER 2022-07-07 04:39 | Emergency (ER) | payer OTHER ==
--- OUTSIDE RECORDS SUMMARY | 2022-07-07 04:47 | XMS REPORT | Continuity of Care Document ---
:1965 Author Organization [facility] t Address [address] [place] [address] Care Team Providers Name Role Phone Franko Thakur MD Primary Care Physician [phone] Franko Thakur Attending Clinician Unavailable Corwin Claros Attending Clinician Unavailable Corwin Claros Attending Clinician Unavailable MANISHA NORRIS Attending Clinician Unavailable LICO WHITE Attending Clinician Unavailable LICO WHITE Attending Clinician Unavailable ROSALES CHIU Attending Clinician Unavailable Umberto Saul MD Attending Clinician Doctor Unassigned, [place] Attending Clinician Unavailable SUNIL NAQVI Attending Clinician Unavailable Rosales Chiu PA-C Attending Clinician Leela Bonilla MD Attending Clinician Franko Thakur MD Attending Clinician Pcp-Lab Attending Clinician Unavailable Jr SANTIGAO, Manisha Hale Attending Clinician Gavin SNOW, Guerita Attending Clinician Dixie Bhardwaj Attending Clinician DIXIE ALANIS Attending Clinician Unavailable Kasandra Portillo RN Attending Clinician Unavailable UMBERTO SAUL Attending Clinician Unavailable Dinh Phillips CRNA Attending Clinician Heriberto Vyas MD Attending Clinician Only, Adc Test Attending Clinician Unavailable Pob, Adc Lab Main Attending Clinician Unavailable Donna Lowry PT Attending Clinician Unavailable Guanako SNOW, Buddy Attending Clinician BUDDY BECKER Attending Clinician Unavailable FRANKO THAKUR Attending Clinician Unavailable Faith Hall MA Attending Clinician Unavailable GUERITA CORDOVA Attending Clinician Unavailable LEELA BONILLA Attending Clinician Unavailable LEELA BONILLA Attending Clinician Unavailable Lab, Ang - Db Attending Clinician Unavailable Teresa Leon Attending Clinician Unavailable , [facility] Attending Clinician Unavailable Anderson Hilton MD Attending Clinician GARLAND CURRIE Attending Clinician Unavailable Andry Dinero Attending Clinician Unavailable Andry Dinero Attending Clinician Unavailable Corwin Claros Admitting Clinician Unavailable UMBERTO SAUL Admitting Clinician Unavailable Umberto Saul MD Admitting Clinician BUDDY BECKER Admitting Clinician Unavailable Payers Payer Name Policy Type Policy Number Effective Date Expiration Date S benjie [facility] DUAL [id number] 2021 COMP HMO D SNP 00:00:00 MEDICAID [facility] [id number] 2021 00:00:00 Problems Condition Condition Condition Status Onset Resolution Last Treating Co mments Source Name Details Category Date Date Treatment Clinician Date Hip Hip Disease Active Univers osteoarthr osteoarthr 7-18 it y of itis itis 00:00: [place] [id number] Medical Branch Obesity Obesity Disease Active Univers (BMI (BMI 7-15 ity of 30-39.9) 30-39.9) 00:00: [place] 00 Medical Branch Primary Primary Disease Active Overview: Univ ers osteoarthr osteoarthr 30 [place] ity of itis of itis of 00:00: g of this [place] right hip right hip 00 note Medi danish might be Branch different from the original. Added automatic ally from request for surgery [id number] Type 2 Type 2 Disease Active Univers [...] Sleep Disease Active 2017-07 Univers apnea apnea 1-06 ity of 00:00: [place] [facility] Vitamin D Vitamin D Disease Active 2017-07 Uni vers deficiency deficiency 1-06 it y of 00:00: [place] [facility] Depressed Depressed Disease Active Uni vers bipolar bipolar 8 ity of disorder disorder 00:00: [place] 00 Medical Branch Fibromyalg Fibromyalg Disease Active U nivers ia ia 03-04 ity of 00:00: [place] [facility] Silas Silas Disease Active Uni 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-04 it y of s, fibrous s, [place] variant variant 00 [place] Rheumatoid Rheumatoid Disease Active U nivers arthritis arthritis 8-19 ity of 00:00: [address] Allergies, Adverse Reactions, Alerts Allergy Allergy Status Severity Reaction(s) Onset Inactive Treating Comm ents Source Name Type Date Date Clinician Tramadol Propensi Active Itching Unive rs ty to 6-22 ity of adverse 00:00: [place] reaction 00 [facility] TRAMADOL DRUG Active ITCHING Univers INGREDI 6-22 ity of 00:00: [place] [facility] EDOXABAN DRUG Active High Rash Univers TOSYLATE INGREDI 7-20 ity of 00:00: [place] [facility] [place] DULOXETI DRUG Active Med Rash Univers NE HCL INGREDI 7-20 ity of 00:00: [place] [facility] MILNACIP DRUG Active Med Other-Cmnt Univ ers RAN HCL INGREDI 7-20 ity of 00:00: [place] [facility] Duloxeti Drug Active Rash Univers ne Hcl Allergy 7-20 ity of 00:00: [place] 00 Medical [place] Edoxaban Drug Active Rash Univers Tosylate Allergy 7-20 ity of 00:00: [place] 00 [facility] Milnacip Drug Active Other - See Uni vers ran Hcl Allergy comments 7-20 ity of 00:00: [place] 00 [facility] lactose DA Active U 2016- [facility] 7-18 [facility] 00 [facility] duloxeti DA Active PR [facility] ne 7-18 [place] 00:[facility] 00 [facility] Drug Active Medical [facility] Drug Active Medical [facility] Drug Active Medical [facility] Drug Active Medical [facility] Drug Active Medical [facility] Drug Active Medical [facility] Social History Social Habit Start Date Stop Date Quantity Comments Source History SDOH University o f Alcohol Frequency [place] M edical Branch History SDOH University o f Alcohol Std Drinks [place] [facility] History SDOH University o f Alcohol Binge [facility] al Branch Exposure to 2022-06-04 2022-06-14 Not sure University of SARS-CoV-2 (event) 00:00:00 12:37:00 [facility] Alcohol intake 2022-06-14 2022-06-14 Current drinker Unive rsity of 00:00:00 00:00:00 of alcohol [facility] (finding) [place] Tobacco Comment 2022-01-25 2022-01-25 occasional Universit y of 00:00:00 00:00:00 [facility] Cigarettes smoked 2022-01-25 2022-01-25 Univers ity of current (pack per 00:00:00 00:00:00 [facility] ) - Reported Branch Cigarette 2022-01-25 2022-01-25 University of pack-years 00:00:00 00:00:00 [facility] Tobacco use and 2022-01-25 2022-01-25 User of smokeless Un iversity of exposure 00:00:00 00:00:00 tobacco [facility] Alcohol Comment 2021-02-02 2021-02-02 socially Universit y of 00:00:00 00:00:00 [facility] History of tobacco 1993-02-02 Passive smoker Un iversity of use 00:00:00 [facility] Sex [birth year] Universit y of 00:00:00 00:00:00 [facility] Smoking Status Start Date Stop Date Source Ex-smoker 2022-01-25 00:00:00 2022-01-25 00:00:00 Universi ty of [facility] Medications Ordered Filled Start Stop Current Ordering Indication Dosage Frequency Signature Comments Components Source Medication Medication Date Date Medication? Clinician (SIG) Name Name celecoxib 2021- No [id number] 200mg Take 1 Univers (CELEBREX) 03-09 6 capsule by it y of 200 mg 00:00: 04:59 mouth in [place] capsule 00 :00 the [facility] for 30 days. celecoxib 2021- No [id number] 200mg Take 1 Univers (CELEBREX) 03-09 6 capsule by it y of 200 mg 00:00: 04:59 mouth in [place] capsule 00 :00 the [facility] for 30 days. celecoxib 2021- No [id number] 200mg Take 1 Univers (CELEBREX) 03-09 6 capsule by it y of 200 mg 00:00: 04:59 mouth in [place] capsule 00 :00 the [facility] for 30 days. celecoxib 2021- No [id number] 200mg Take 1 Univers (CELEBREX) 03-09 6 capsule by it y of 200 mg 00:00: 04:59 mouth in [place] capsule 00 :00 the [facility] for 30 days. adalimumab Yes [id number] 40mg inject 1 Univers (HUMIRA,CF, 03-07 [id number] Pen under i ty of PEN) 40 00:00: the skin [place] mg/0.4 mL 00 every 14 Medica l injection (fourteen) Bran ch days. adalimumab Yes [id number] 40mg inject 1 Univers (HUMIRA,CF, 03-07 [id number] Pen under i ty of PEN) 40 00:00: the skin [place] mg/0.4 mL 00 every 14 Medica l injection (fourteen) Bran ch days. adalimumab Yes [id number] 40mg inject 1 Univers (HUMIRA,CF, 03-07 [id number] Pen under i ty of PEN) 40 00:00: the skin [place] mg/0.4 mL 00 every 14 Medica l injection (fourteen) Bran ch days. adalimumab 0 Yes [id number] 40mg inject 1 Univers (HUMIRA,CF, 03-07 [id number] Pen under i ty of PEN) 40 00:00: the skin [place] mg/0.4 mL 00 every 14 Medica l injection (fourteen) Bran ch days. adalimumab 0 Yes [id number] 40mg inject 1 Univers (HUMIRA,CF, 03-07 [id number] Pen under i ty of PEN) 40 00:00: the skin [place] mg/0.4 mL 00 every 14 Medica l injection (fourteen) Bran ch days. adalimumab 2021-0 Yes [id number] 40mg inject 1 Univers (HUMIRA,CF, 03-07 [id number] Pen under i ty of PEN) 40 00:00: the skin [place] mg/0.4 mL 00 every 14 Medica l injection (fourteen) Bran ch days. adalimumab 2021-0 Yes [id number] 40mg inject 1 Univers (HUMIRA,CF, 03-07 [id number] Pen under i ty of PEN) 40 00:00: the skin [place] mg/0.4 mL 00 every 14 Medica l injection (fourteen) Bran ch days. adalimumab 2021-0 Yes [id number] 40mg inject 1 Univers (HUMIRA,, 8 [id number] Pen under i ty of PEN) 40 00:00: the skin [place] mg/0.4 mL 00 every 14 Medica l injection (fourteen) Bran ch days. adalimumab 2021-0 Yes [id number] 40mg inject 1 Univers (HUMIRA,, 8 [id number] Pen under i ty of PEN) 40 00:00: the skin [place] mg/0.4 mL 00 every 14 Medica l injection (fourteen) Bran ch days. adalimumab 2021-0 Yes [id number] 40mg inject 1 Univers (HUMIRA,, 8 [id number] Pen under i ty of PEN) 40 00:00: the skin [place] mg/0.4 mL 00 every 14 Medica l injection (fourteen) Bran ch days. adalimumab 2021-0 Yes [id number] 40mg inject 1 Univers (HUMIRA,, 03-07 [id number] Pen under i ty of PEN) 40 00:00: the skin [place] mg/0.4 mL 00 every 14 Medica l injection (fourteen) Bran ch days. adalimumab 2021-0 Yes [id number] 40mg inject 1 Univers (HUMIRA,, 8 [id number] Pen under i ty of PEN) 40 00:00: the skin [place] mg/0.4 mL 00 every 14 Medica l injection (fourteen) Bran ch days. adalimumab 2021-0 Yes [id number] 40mg inject 1 Univers (HUMIRA,, 8 [id number] Pen under i ty of PEN) 40 00:00: the skin [place] mg/0.4 mL 00 every 14 Medica l injection (fourteen) Bran ch days. adalimumab 2021-0 Yes [id number] 40mg inject 1 Univers (HUMIRA,, 8 [id number] Pen under i ty of PEN) 40 00:00: the skin [place] mg/0.4 mL 00 every 14 Medica l injection (fourteen) Bran ch days. adalimumab 2-0 Yes [id number] 40mg inject 1 Univers (HUMIRA,, 8 [id number] Pen under i ty of PEN) 40 00:00: the skin [place] mg/0.4 mL 00 every 14 Medica l injection (fourteen) Bran ch days. adalimumab 2021-0 Yes [id number] 40mg inject 1 Univers (HUMIRA,CF, 8 [id number] Pen under i ty of PEN) 40 00:00: the skin [place] mg/0.4 mL 00 every 14 Medica l injection (fourteen) Bran ch days. adalimumab 2021-0 Yes [id number] 40mg inject 1 Univers (HUMIRA,CF, 8 [id number] Pen under i ty of PEN) 40 00:00: the skin [place] mg/0.4 mL 00 every 14 Medica l injection (fourteen) Bran ch days. adalimumab 2021-0 Yes [id number] 40mg inject 1 Univers (HUMIRA,CF, 8 [id number] Pen under i ty of PEN) 40 00:00: the skin [place] mg/0.4 mL 00 every 14 Medica l injection (fourteen) Bran ch days. adalimumab 2021-0 Yes [id number] 40mg inject 1 Univers (HUMIRA,CF, 03-07 [id number] Pen under i ty of PEN) 40 00:00: the skin [place] mg/0.4 mL 00 every 14 Medica l injection (fourteen) Bran ch days. adalimumab 2021-0 Yes [id number] 40mg inject 1 Univers (HUMIRA,, 03-07 [id number] Pen under i ty of PEN) 40 00:00: the skin [place] mg/0.4 mL 00 every 14 Medica l injection (fourteen) Bran ch days. adalimumab 2021-0 Yes [id number] 40mg inject 1 Univers (HUMIRA,, 8 [id number] Pen under i ty of PEN) 40 00:00: the skin [place] mg/0.4 mL 00 every 14 Medica l injection (fourteen) Bran ch days. adalimumab 2021-0 Yes [id number] 40mg inject 1 Univers (HUMIRA,, 8 [id number] Pen under i ty of PEN) 40 00:00: the skin [place] mg/0.4 mL 00 every 14 Medica l injection (fourteen) Bran ch days. adalimumab 2021-0 Yes [id number] 40mg inject 1 Univers (HUMIRA,CF, 8 [id number] Pen under i ty of PEN) 40 00:00: the skin [place] mg/0.4 mL 00 every 14 Medica l injection (fourteen) Bran ch days. blood sugar 2021-0 Yes [id number] Use Daily. Univers diagnostic 8-14 Dx E11.9 ity o f (ACCU-CHEK 00:00: [place] GUIDE TEST 00 Medical STRIPS) Branch strip blood sugar 2022-0 Yes [id number] Use Daily. Univers diagnostic 8-14 Dx E11.9 ity o f (ACCU-CHEK 00:00: [place] GUIDE TEST 00 Medical STRIPS) Branch strip blood sugar 2022-0 Yes [id number] Use Daily. Univers diagnostic 8-14 Dx E11.9 ity o f (ACCU-CHEK 00:00: [place] GUIDE TEST 00 Medical STRIPS) Branch strip blood sugar 2022-0 Yes [id number] Use Daily. Univers diagnostic 8-14 Dx E11.9 ity o f (ACCU-CHEK 00:00: [place] GUIDE TEST 00 Medical STRIPS) Branch strip blood sugar 2022-0 Yes [id number] Use Daily. Univers diagnostic 8-14 Dx E11.9 ity o f (ACCU-CHEK 00:00: [place] GUIDE TEST 00 Medical STRIPS) Branch strip blood sugar 2022-0 Yes [id number] Use Daily. Univers diagnostic 8-14 Dx E11.9 ity o f (ACCU-CHEK 00:00: [place] GUIDE TEST 00 Medical STRIPS) Branch strip blood sugar 2022-0 Yes [id number] Use Daily. Univers diagnostic 8-14 Dx E11.9 ity o f (ACCU-CHEK 00:00: [place] GUIDE TEST 00 Medical STRIPS) Branch strip blood sugar 2022-0 Yes [id number] Use Daily. Univers diagnostic 8-14 Dx E11.9 ity o f (ACCU-CHEK 00:00: [place] GUIDE TEST 00 Medical STRIPS) Branch strip blood sugar 2022-0 Yes [id number] Use Daily. Univers diagnostic 8-14 Dx E11.9 ity o f (ACCU-CHEK 00:00: [place] GUIDE TEST 00 Medical STRIPS) Branch strip blood sugar 2022-0 Yes [id number] Use Daily. Univers diagnostic 8-14 Dx E11.9 ity o f (ACCU-CHEK 00:00: [place] GUIDE TEST 00 Medical STRIPS) Branch strip blood sugar 2022-0 Yes [id number] Use Daily. Univers diagnostic 8-14 Dx E11.9 ity o f (ACCU-CHEK 00:00: [place] GUIDE TEST 00 Medical STRIPS) Branch strip blood sugar 2022-0 Yes [id number] Use Daily. Univers diagnostic 8-14 Dx E11.9 ity o f (ACCU-CHEK 00:00: [place] GUIDE TEST 00 Medical STRIPS) Branch strip blood sugar 2022-0 Yes [id number] Use Daily. Univers diagnostic 8-14 Dx E11.9 ity o f (ACCU-CHEK 00:00: [place] GUIDE TEST 00 Medical STRIPS) Branch strip blood sugar 2022-0 Yes [id number] Use Daily. Univers diagnostic 8-14 Dx E11.9 ity o f (ACCU-CHEK 00:00: [place] GUIDE TEST 00 Medical STRIPS) Branch strip blood sugar 2022-0 Yes [id number] Use Daily. Univers diagnostic 8-14 Dx E11.9 ity o f (ACCU-CHEK 00:00: [place] GUIDE TEST 00 Medical STRIPS) Branch strip blood sugar 2022-0 Yes [id number] Use Daily. Univers diagnostic 8-14 Dx E11.9 ity o f (ACCU-CHEK 00:00: [place] GUIDE TEST 00 Medical STRIPS) Branch strip blood sugar 2022-0 Yes [id number] Use Daily. Univers diagnostic 8-14 Dx E11.9 ity o f (ACCU-CHEK 00:00: [place] GUIDE TEST 00 Medical STRIPS) Branch strip blood sugar 2022-0 Yes [id number] Use Daily. Univers diagnostic 8-14 Dx E11.9 ity o f (ACCU-CHEK 00:00: [place] GUIDE TEST 00 Medical STRIPS) Branch strip blood sugar 2022-0 Yes [id number] Use Daily. Univers diagnostic 8-14 Dx E11.9 ity o f (ACCU-CHEK 00:00: [place] GUIDE TEST 00 Medical STRIPS) Branch strip blood sugar 2022-0 Yes [id number] Use Daily. Univers diagnostic 8-14 Dx E11.9 ity o f (ACCU-CHEK 00:00: [place] GUIDE TEST 00 Medical STRIPS) Branch strip blood sugar 2022-0 Yes [id number] Use Daily. Univers diagnostic 8-14 Dx E11.9 ity o f (ACCU-CHEK 00:00: [place] GUIDE TEST 00 Medical STRIPS) Branch strip blood sugar 2022-0 Yes [id number] Use Daily. Univers diagnostic 8-14 Dx E11.9 ity o f (ACCU-CHEK 00:00: [place] GUIDE TEST 00 Medical STRIPS) Branch strip blood sugar Yes [id number] Use Daily. Univers diagnostic 8-14 Dx E11.9 ity o f (ACCU-CHEK 00:00: [place] [address] Medical [facility]) Branch strip SIMVASTATIN 0 Yes [id number] 40mg TAKE 1 Univers 40 mg 8-08 TABLET BY ity of tablet 00:00: MOUTH AT [address] SIMVASTATIN 2021-0 Yes [id number] 40mg TAKE 1 Univers 40 mg 8-08 TABLET BY ity of tablet 00:00: MOUTH AT [address] SIMVASTATIN 0 Yes [id number] 40mg TAKE 1 Univers 40 mg 8-08 TABLET BY ity of tablet 00:00: MOUTH AT [address] SIMVASTATIN 0 Yes [id number] 40mg TAKE 1 Univers 40 mg 8-08 TABLET BY ity of tablet 00:00: MOUTH AT [address] SIMVASTATIN 0 Yes [id number] 40mg TAKE 1 Univers 40 mg 8-08 TABLET BY ity of tablet 00:00: MOUTH AT [address] SIMVASTATIN 0 Yes [id number] 40mg TAKE 1 Univers 40 mg 8-08 TABLET BY ity of tablet 00:00: MOUTH AT [address] SIMVASTATIN 0 Yes [id number] 40mg TAKE 1 Univers 40 mg 8-08 TABLET BY ity of tablet 00:00: MOUTH AT [address] SIMVASTATIN 0 Yes [id number] 40mg TAKE 1 Univers 40 mg 8-08 TABLET BY ity of tablet 00:00: MOUTH AT [address] SIMVASTATIN 2021-0 Yes [id number] 40mg TAKE 1 Univers 40 mg 8-08 TABLET BY ity of tablet 00:00: MOUTH AT [address] SIMVASTATIN 0 Yes [id number] 40mg TAKE 1 Univers 40 mg 8-08 TABLET BY ity of tablet 00:00: MOUTH AT [address] SIMVASTATIN 2021-0 Yes [id number] 40mg TAKE 1 Univers 40 mg 8-08 TABLET BY ity of tablet 00:00: MOUTH AT [address] SIMVASTATIN 2021-0 Yes [id number] 40mg TAKE 1 Univers 40 mg 8-08 TABLET BY ity of tablet 00:00: MOUTH AT [address] SIMVASTATIN 2021-0 Yes [id number] 40mg TAKE 1 Univers 40 mg 8-08 TABLET BY ity of tablet 00:00: MOUTH AT [place] [facility] SIMVASTATIN 2021-0 Yes [id number] 40mg TAKE 1 Univers 40 mg 8-08 TABLET BY ity of tablet 00:00: MOUTH AT [place] [facility] SIMVASTATIN 2021-0 Yes [id number] 40mg TAKE 1 Univers 40 mg 8-08 TABLET BY ity of tablet 00:00: MOUTH AT [place] [facility] SIMVASTATIN 2021-0 Yes [id number] 40mg TAKE 1 Univers 40 mg 8-08 TABLET BY ity of tablet 00:00: MOUTH AT [place] [facility] SIMVASTATIN 0 Yes [id number] 40mg TAKE 1 Univers 40 mg 8-08 TABLET BY ity of tablet 00:00: MOUTH AT [address] SIMVASTATIN 2021- Yes [id number] 40mg TAKE 1 Univers 40 mg 8-08 TABLET BY ity of tablet 00:00: MOUTH AT [place] [facility] SIMVASTATIN 2021- Yes [id number] 40mg TAKE 1 Univers 40 mg 8-08 TABLET BY ity of tablet 00:00: MOUTH AT [place] [facility] SIMVASTATIN 2021-0 Yes [id number] 40mg TAKE 1 Univers 40 mg 8-08 TABLET BY ity of tablet 00:00: MOUTH AT [address] SIMVASTATIN 2021-0 Yes [id number] 40mg TAKE 1 Univers 40 mg 8-08 TABLET BY ity of tablet 00:00: MOUTH AT [address] SIMVASTATIN 0 Yes [id number] 40mg TAKE 1 Univers 40 mg 8-08 TABLET BY ity of tablet 00:00: MOUTH AT [address] SIMVASTATIN 2021-0 Yes [id number] 40mg TAKE 1 Univers 40 mg 8-08 TABLET BY ity of tablet 00:00: MOUTH AT [address] acetaminoph 0 Yes [id number]{tbl} Take 2 Un david [...] mouth 2 ity of tablet 00:00: (two) [place] 00 times Medical daily as Branch needed. [...] daily as Branch needed. gabapentin 2022-0 Yes [id number] 300mg Take 1 Univers 300 mg 4-21 capsule by ity of capsule 00:00: mouth 3 [place] (three) Medical times Branch daily. gabapentin 2022-0 Yes [id number] 300mg Take 1 Univers 300 mg 4-21 capsule by ity of capsule 00:00: mouth 3 [place] (three) Medical times Branch daily. gabapentin 2022-0 Yes [id number] 300mg Take 1 Univers 300 mg 4-21 capsule by ity of capsule 00:00: mouth 3 [place] (three) Medical times Branch daily. gabapentin 2022-0 Yes [id number] 300mg Take 1 Univers 300 mg 4-21 capsule by ity of capsule 00:00: mouth 3 [place] (three) Medical times Branch daily. gabapentin 2022-0 Yes [id number] 300mg Take 1 Univers 300 mg 4-21 capsule by ity of capsule 00:00: mouth (three) Medical times Branch daily. gabapentin 2022-0 Yes [id number] 300mg Take 1 Univers 300 mg 4-21 capsule by ity of capsule 00:00: mouth (three) Medical times Branch daily. gabapentin 2022-0 Yes [id number] 300mg Take 1 Univers 300 mg 4-21 capsule by ity of capsule 00:00: mouth () Medical times Branch daily. gabapentin 2022-0 Yes [id number] 300mg Take 1 Univers 300 mg 4-21 capsule by ity of capsule 00:00: mouth () Medical times Branch daily. gabapentin 2022-0 Yes [id number] 300mg Take 1 Univers 300 mg 4-21 capsule by ity of capsule 00:00: mouth () Medical times Branch daily. gabapentin 2022-0 Yes [id number] 300mg Take 1 Univers 300 mg 4-21 capsule by ity of capsule 00:00: mouth () Medical times Branch daily. gabapentin 2022-0 Yes [id number] 300mg Take 1 Univers 300 mg 4-21 capsule by ity of capsule 00:00: mouth () Medical times Branch daily. gabapentin 2022-0 Yes [id number] 300mg Take 1 Univers 300 mg 4-21 capsule by ity of capsule 00:00: mouth () Medical times Branch daily. gabapentin 2022-0 Yes [id number] 300mg Take 1 Univers 300 mg 4-21 capsule by ity of capsule 00:00: mouth () Medical times Branch daily. gabapentin 2022-0 Yes [id number] 300mg Take 1 Univers 300 mg 4-21 capsule by ity of capsule 00:00: mouth (three) Medical times Branch daily. gabapentin 2022-0 Yes [id number] 300mg Take 1 Univers 300 mg 4-21 capsule by ity of capsule 00:00: mouth (three) Medical times Branch daily. gabapentin 2022-0 Yes [id number] 300mg Take 1 Univers 300 mg 4-21 capsule by ity of capsule 00:00: mouth (three) Medical times Branch daily. gabapentin 2022-0 Yes [id number] 300mg Take 1 Univers 300 mg 4-21 capsule by ity of capsule 00:00: mouth 3 (three) Medical times Branch daily. gabapentin 2021-0 Yes [id number] 300mg Take 1 Univers 300 mg 4-21 capsule by ity of capsule 00:00: mouth 3 (three) Medical times Branch daily. gabapentin 2021-0 Yes [id number] 300mg Take 1 Univers 300 mg 4-21 capsule by ity of capsule 00:00: mouth 3 (three) Medical times Branch daily. gabapentin 2021-0 Yes [id number] 300mg Take 1 Univers 300 mg 4-21 capsule by ity of capsule 00:00: mouth 3 (three) Medical times Branch daily. gabapentin 2021-0 Yes [id number] 300mg Take 1 Univers 300 mg 4-21 capsule by ity of capsule 00:00: mouth 3 (three) Medical times Branch daily. gabapentin 2021-0 Yes [id number] 300mg Take 1 Univers 300 mg 4-21 capsule by ity of capsule 00:00: mouth 3 (three) Medical times Branch daily. gabapentin 2021-0 Yes [id number] 300mg Take 1 Univers 300 mg 4-21 capsule by ity of capsule 00:00: mouth 3 (three) Medical times Branch daily. Lancets 2021-0 Yes [id number] Use as Uni vers (ACCU-CHEK 2-15 directed ity o f SOFTCLIX 00:00: to check [place] LANCETS) 00 blood Medical Misc sugar once Branch daily E11.9 Lancets 2021-0 Yes [id number] Use as Uni vers (ACCU-CHEK 2-15 directed ity o f SOFTCLIX 00:00: to check [place] LANCETS) 00 blood Medical Misc sugar once Branch daily E11.9 Lancets 2021-0 Yes [id number] Use as Uni vers (ACCU-CHEK 2-15 directed ity o f SOFTCLIX 00:00: to check [place] LANCETS) 00 blood Medical Misc sugar once Branch daily E11.9 Lancets 2021-0 Yes [id number] Use as Uni vers (ACCU-CHEK 2-15 directed ity o f SOFTCLIX 00:00: to check [place] LANCETS) 00 blood Medical Misc sugar once Branch daily E11.9 Lancets 2022-0 Yes [id number] Use as Uni vers (ACCU-CHEK 2-15 directed ity o f SOFTCLIX 00:00: to check [place] LANCETS) 00 blood Medical Misc sugar once Branch daily E11.9 Lancets 0 Yes [id number] Use as Uni vers (ACCU-CHEK 2-15 directed ity o f SOFTCLIX 00:00: to check [place] LANCETS) 00 blood Medical Misc sugar once Branch daily E11.9 Lancets 0 Yes [id number] Use as Uni vers (ACCU-CHEK 2-15 directed ity o f SOFTCLIX 00:00: to check [place] LANCETS) 00 blood Medical Misc sugar once Branch daily E11.9 Lancets 0 Yes [id number] Use as Uni vers (ACCU-CHEK 2-15 directed ity o f SOFTCLIX 00:00: to check [place] LANCETS) 00 blood Medical Misc sugar once Branch daily E11.9 Lancets Yes [id number] Use as Uni vers (ACCU-CHEK 2-15 directed ity o f SOFTCLIX 00:00: to check [place] LANCETS) 00 blood Medical Misc sugar once Branch daily E11.9 Lancets 0 Yes [id number] Use as Uni vers (ACCU-CHEK 2-15 directed ity o f SOFTCLIX 00:00: to check [place] LANCETS) 00 blood Medical Misc sugar once Branch daily E11.9 Lancets 2021-0 Yes [id number] Use as Uni vers (ACCU-CHEK 2-15 directed ity o f SOFTCLIX 00:00: to check [place] LANCETS) 00 blood Medical Misc sugar once Branch daily E11.9 Lancets 0 Yes [id number] Use as Uni vers (ACCU-CHEK 2-15 directed ity o f SOFTCLIX 00:00: to check [place] LANCETS) 00 blood Medical Misc sugar once Branch daily E11.9 Lancets Yes [id number] Use as Uni vers (ACCU-CHEK 2-15 directed ity o f SOFTCLIX 00:00: to check [place] LANCETS) 00 blood Medical Misc sugar once Branch daily E11.9 Lancets Yes [id number] Use as Uni vers (ACCU-CHEK 2-15 directed ity o f SOFTCLIX 00:00: to check [place] LANCETS) 00 blood Medical Misc sugar once Branch daily E11.9 Lancets 2021-0 Yes [id number] Use as Uni vers (ACCU-CHEK 2-15 directed ity o f SOFTCLIX 00:00: to check [place] LANCETS) 00 blood Medical Misc sugar once Branch daily E11.9 Lancets 2021-0 Yes [id number] Use as Uni vers (ACCU-CHEK 2-15 directed ity o f SOFTCLIX 00:00: to check [place] LANCETS) 00 blood Medical Misc sugar once Branch daily E11.9 Lancets 2021-0 Yes [id number] Use as Uni vers (ACCU-CHEK 2-15 directed ity o f SOFTCLIX 00:00: to check [place] LANCETS) 00 blood Medical Misc sugar once Branch daily E11.9 Lancets 2021-0 Yes [id number] Use as Uni vers (ACCU-CHEK 2-15 directed ity o f SOFTCLIX 00:00: to check [place] LANCETS) 00 blood Medical Misc sugar once Branch daily E11.9 Lancets 2021-0 Yes [id number] Use as Uni vers (ACCU-CHEK 2-15 directed ity o f SOFTCLIX 00:00: to check [place] LANCETS) 00 blood Medical Misc sugar once Branch daily E11.9 Lancets 2021-0 Yes [id number] Use as Uni vers (ACCU-CHEK 2-15 directed ity o f SOFTCLIX 00:00: to check [place] LANCETS) 00 blood Medical Misc sugar once Branch daily E11.9 Lancets 2021-0 Yes [id number] Use as Uni vers (ACCU-CHEK 2-15 directed ity o f SOFTCLIX 00:00: to check [place] LANCETS) 00 blood Medical Misc sugar once Branch daily E11.9 Lancets 2021-0 Yes [id number] Use as Uni vers (ACCU-CHEK 2-15 directed ity o f SOFTCLIX 00:00: to check [place] LANCETS) 00 blood Medical Misc sugar once Branch daily E11.9 Lancets 0 Yes [id number] Use as Uni vers (ACCU-CHEK 2-15 directed ity o f SOFTCLIX 00:00: to check [place] LANCETS) 00 blood Medical Misc sugar once Branch daily E11.9 metformin 2021-0 Yes [id number] 1000mg Take 2 Univers ER 500 mg 2-08 tablets by ity of 24 hr 00:00: mouth [place] tablet 00 daily with Medical breakfast. Branch metformin 2021-0 Yes [id number] 1000mg Take 2 Univers ER 500 mg 2-08 tablets by ity of 24 hr 00:00: mouth [place] tablet 00 daily with Medical breakfast. Branch metformin 2021-0 Yes [id number] 1000mg Take 2 Univers ER 500 mg 2-08 tablets by ity of 24 hr 00:00: mouth [place] tablet 00 daily with Medical breakfast. Branch metformin 2021-0 Yes [id number] 1000mg Take 2 Univers ER 500 mg 2-08 tablets by ity of 24 hr 00:00: mouth [place] tablet 00 daily with Medical breakfast. Branch metformin 2021-0 Yes [id number] 1000mg Take 2 Univers ER 500 mg 2-08 tablets by ity of 24 hr 00:00: mouth [place] tablet 00 daily with Medical breakfast. Branch metformin 2021-0 Yes [id number] 1000mg Take 2 Univers ER 500 mg 2-08 tablets by ity of 24 hr 00:00: mouth [place] tablet 00 daily with Medical breakfast. Branch metformin 2021-0 Yes [id number] 1000mg Take 2 Univers ER 500 mg 2-08 tablets by ity of 24 hr 00:00: mouth [place] tablet 00 daily with Medical breakfast. Branch metformin 2021-0 Yes [id number] 1000mg Take 2 [facility] ER 500 mg 2-08 tablets by ity of 24 hr 00:00: mouth [place] tablet 00 daily with Medical breakfast. Branch metformin 2021-0 Yes [id number] 1000mg Take 2 Univers ER 500 mg 2-08 tablets by ity of 24 hr 00:00: mouth [place] tablet 00 daily with Medical breakfast. Branch metformin 2021-0 Yes [id number] 1000mg Take 2 Univers ER 500 mg 2-08 tablets by ity of 24 hr 00:00: mouth [place] tablet 00 daily with Medical breakfast. Branch metformin 2021-0 Yes [id number] 1000mg Take 2 [facility] ER 500 mg 2-08 tablets by ity of 24 hr 00:00: mouth [place] tablet 00 daily with Medical breakfast. Branch metformin 2021-0 Yes [id number] 1000mg Take 2 [facility] ER 500 mg 2-08 tablets by ity of 24 hr 00:00: mouth [place] tablet 00 daily with Medical breakfast. Branch metformin 0 Yes [id number] 1000mg Take 2 [facility] ER 500 mg 2-08 tablets by ity of 24 hr 00:00: mouth [place] tablet 00 daily with Medical breakfast. Branch metformin 0 Yes [id number] 1000mg Take 2 [facility] ER 500 mg 2-08 tablets by ity of 24 hr 00:00: mouth [place] tablet 00 daily with Medical breakfast. Branch metformin 0 Yes [id number] 1000mg Take 2 [facility] ER 500 mg 2-08 tablets by ity of 24 hr 00:00: mouth [place] tablet 00 daily with Medical breakfast. Branch metformin 0 Yes [id number] 1000mg Take 2 [facility] ER 500 mg 2-08 tablets by ity of 24 hr 00:00: mouth [place] tablet 00 daily with Medical breakfast. Branch metformin 0 Yes [id number] 1000mg Take 2 [facility] ER 500 mg 2-08 tablets by ity of 24 hr 00:00: mouth [place] tablet 00 daily with Medical breakfast. Branch metformin 0 Yes [id number] 1000mg Take 2 [facility] ER 500 mg 2-08 tablets by ity of 24 hr 00:00: mouth [place] tablet 00 daily with Medical breakfast. Branch metformin 0 Yes [id number] 1000mg Take 2 [facility] ER 500 mg 2-08 tablets by ity of 24 hr 00:00: mouth [place] tablet 00 daily with Medical breakfast. Branch metformin 0 Yes [id number] 1000mg Take 2 [facility] ER 500 mg 2-08 tablets by ity of 24 hr 00:00: mouth [place] tablet 00 daily with Medical breakfast. Branch metformin 0 Yes [id number] 1000mg Take 2 [facility] ER 500 mg 2-08 tablets by ity of 24 hr 00:00: mouth [place] tablet 00 daily with Medical breakfast. Branch metformin 0 Yes [id number] 1000mg Take 2 [facility] ER 500 mg 2-08 tablets by ity of 24 hr 00:00: mouth [place] tablet 00 daily with Medical breakfast. Branch metformin 0 Yes [id number] 1000mg Take 2 [facility] ER 500 mg 2-08 tablets by ity of 24 hr 00:00: mouth [place] tablet 00 daily with Medical breakfast. Branch levothyroxi 0 Yes 50ug Take 50 Uni vers ne 50 mcg 2-02 mcg by ity of tablet 00:00: mouth. [place] [facility] Branch levothyroxi 0 Yes 50ug Take 50 Uni vers ne 50 mcg 2-02 mcg by ity of tablet 00:00: mouth. [place] [facility] Branch levothyroxi 0 Yes 50ug Take 50 Uni vers ne 50 mcg 2-02 mcg by ity of tablet 00:00: mouth. [place] [facility] levothyroxi 0 Yes 50ug Take 50 Uni vers ne 50 mcg 2-02 mcg by ity of tablet 00:00: mouth. [place] [facility] levothyroxi 0 Yes 50ug Take 50 Uni vers ne 50 mcg 2-02 mcg by ity of tablet 00:00: mouth. [place] [facility] levothyroxi 0 Yes 50ug Take 50 Uni vers ne 50 mcg 2-02 mcg by ity of tablet 00:00: mouth. [place] [facility] levothyroxi 0 Yes 50ug Take 50 Uni vers ne 50 mcg 2-02 mcg by ity of tablet 00:00: mouth. [place] [facility] levothyroxi 0 Yes 50ug Take 50 Uni vers ne 50 mcg 2-02 mcg by ity of tablet 00:00: mouth. [place] [facility] levothyroxi 0 Yes 50ug Take 50 Uni vers ne 50 mcg 2-02 mcg by ity of tablet 00:00: mouth. [place] [facility] levothyroxi 0 Yes 50ug Take 50 Uni vers ne 50 mcg 2-02 mcg by ity of tablet 00:00: mouth. [place] [facility] levothyroxi 0 Yes 50ug Take 50 Uni vers ne 50 mcg 2-02 mcg by ity of tablet 00:00: mouth. [place] [facility] levothyroxi 0 Yes 50ug Take 50 Uni vers ne 50 mcg 2-02 mcg by ity of tablet 00:00: mouth. [place] [facility] levothyroxi 0 Yes 50ug Take 50 Uni vers ne 50 mcg 2-02 mcg by ity of tablet 00:00: mouth. [place] [facility] levothyroxi 0 Yes 50ug Take 50 Uni vers ne 50 mcg 2-02 mcg by ity of tablet 00:00: mouth. [place] 00 Medical Branch levothyroxi 2021-0 Yes 50ug Take 50 Uni vers ne 50 mcg 2-02 mcg by ity of tablet 00:00: mouth. [place] [facility] levothyroxi 2021-0 Yes 50ug Take 50 Uni vers ne 50 mcg 2-02 mcg by ity of tablet 00:00: mouth. [place] [facility] levothyroxi 2021-0 Yes 50ug Take 50 Uni vers ne 50 mcg 2-02 mcg by ity of tablet 00:00: mouth. [place] [facility] levothyroxi 2021-0 Yes 50ug Take 50 Uni vers ne 50 mcg 2-02 mcg by ity of tablet 00:00: mouth. [place] [facility] levothyroxi 2021-0 Yes 50ug Take 50 Uni vers ne 50 mcg 2-02 mcg by ity of tablet 00:00: mouth. [place] [facility] levothyroxi 0 Yes 50ug Take 50 Uni vers ne 50 mcg 2-02 mcg by ity of tablet 00:00: mouth. [place] [facility] levothyroxi 2021-0 Yes 50ug Take 50 Uni vers ne 50 mcg 2-02 mcg by ity of tablet 00:00: mouth. [place] [facility] levothyroxi 2021-0 Yes 50ug Take 50 Uni vers ne 50 mcg 2-02 mcg by ity of tablet 00:00: mouth. [place] [facility] levothyroxi 0 Yes 50ug Take 50 Uni vers ne 50 mcg 2-02 mcg by ity of tablet 00:00: mouth. [place] [address] Medical Branch pantoprazol 2021-0 Yes 40mg Take 40 mg Univers e 40 mg EC 1-10 by mouth ity o f tablet 00:00: every [place] 00 morning. Medical Branch pantoprazol 2021-0 Yes 40mg Take 40 mg Univers e 40 mg EC 1-10 by mouth ity o f tablet 00:00: every [place] 00 morning. Medical Branch pantoprazol 2021-0 2021- No 40mg Take 40 mg Univers e 40 mg EC 07-26 by mouth ity of tablet 00:00: 00:00 every [place] 00 :00 morning. Medical Branch pantoprazol 2021-0 2021- No 40mg Take 40 mg Univers e 40 mg EC 07-26 by mouth ity of tablet 00:00: 00:00 every [place] 00 :00 morning. Medical Branch lamoTRIgine 1-0 Yes 200mg Take 200 U nivers 200 mg 5-25 mg by ity of tablet 00:00: mouth at [place] [address] bedtime. Medical Branch QUEtiapine 1-0 Yes 100mg Take 100 Un david 100 mg 5-25 mg by ity of tablet 00:00: mouth at [place] [address] bedtime. Medical Branch SERTraline 2020-0 Yes 50mg Take 50 mg U nivers 50 mg 5-25 by mouth ity of tablet 00:00: at [place] [address] bedtime. Medical Branch lamoTRIgine 2020-0 Yes 200mg Take 200 U nivers 200 mg 5-25 mg by ity of tablet 00:00: mouth at [place] [address] bedtime. Medical Branch QUEtiapine 2020-0 Yes 100mg Take 100 Un david 100 mg 5-25 mg by ity of tablet 00:00: mouth at [place] [address] bedtime. Medical Branch SERTraline 2020-0 Yes 50mg Take 50 mg U nivers 50 mg 5-25 by mouth ity of tablet 00:00: at [place] [address] bedtime. Medical Branch lamoTRIgine 2020-0 Yes 200mg Take 200 U nivers 200 mg 5-25 mg by ity of tablet 00:00: mouth at [place] [address] bedtime. Medical Branch QUEtiapine 2020-0 Yes 100mg Take 100 Un david 100 mg 5-25 mg by ity of tablet 00:00: mouth at [place] [address] bedtime. Medical Branch SERTraline 2020-0 Yes 50mg Take 50 mg U nivers 50 mg 5-25 by mouth ity of tablet 00:00: at [place] [address] bedtime. Medical Branch lamoTRIgine 1-0 Yes 200mg Take 200 U nivers 200 mg 5-25 mg by ity of tablet 00:00: mouth at [place] [address] bedtime. Medical Branch QUEtiapine 1-0 Yes 100mg Take 100 Un david 100 mg 5-25 mg by ity of tablet 00:00: mouth at [place] [address] bedtime. Medical Branch SERTraline 1-0 Yes 50mg Take 50 mg U nivers 50 mg 5-25 by mouth ity of tablet 00:00: at [place] [address] bedtime. Medical Branch lamoTRIgine 1-0 Yes 200mg Take 200 U nivers 200 mg 5-25 mg by ity of tablet 00:00: mouth at [place] [address] bedtime. Medical Branch QUEtiapine 2020-0 Yes 100mg Take 100 Un david 100 mg 5-25 mg by ity of tablet 00:00: mouth at [place] [address] bedtime. Medical Branch SERTraline 2020-0 Yes 50mg Take 50 mg U nivers 50 mg 5-25 by mouth ity of tablet 00:00: at [place] [address] bedtime. Medical Branch lamoTRIgine 2020-0 Yes 200mg Take 200 U nivers 200 mg 5-25 mg by ity of tablet 00:00: mouth at [place] [address] bedtime. Medical Branch QUEtiapine 2020-0 Yes 100mg Take 100 Un david 100 mg 5-25 mg by ity of tablet 00:00: mouth at [place] [address] bedtime. Medical Branch SERTraline 2020-0 Yes 50mg Take 50 mg U nivers 50 mg 5-25 by mouth ity of tablet 00:00: at [place] [address] bedtime. Medical Branch lamoTRIgine 2020-0 Yes 200mg Take 200 U nivers 200 mg 5-25 mg by ity of tablet 00:00: mouth at [place] [address] bedtime. Medical Branch QUEtiapine 2020-0 Yes 100mg Take 100 Un david 100 mg 5-25 mg by ity of tablet 00:00: mouth at [place] [address] bedtime. Medical Branch SERTraline 2020-0 Yes 50mg Take 50 mg U nivers 50 mg 5-25 by mouth ity of tablet 00:00: at [place] [address] bedtime. Medical Branch lamoTRIgine 2020-0 Yes 200mg Take 200 U nivers 200 mg 5-25 mg by ity of tablet 00:00: mouth at [place] [address] bedtime. Medical Branch QUEtiapine 2020-0 Yes 100mg Take 100 Un david 100 mg 5-25 mg by ity of tablet 00:00: mouth at [place] [address] bedtime. Medical Branch SERTraline 2020-0 Yes 50mg Take 50 mg U nivers 50 mg 5-25 by mouth ity of tablet 00:00: at [place] [address] bedtime. Medical Branch lamoTRIgine 2020-0 Yes 200mg Take 200 U nivers 200 mg 5-25 mg by ity of tablet 00:00: mouth at [place] [address] bedtime. Medical Branch QUEtiapine 2020-0 Yes 100mg Take 100 Un david 100 mg 5-25 mg by ity of tablet 00:00: mouth at [place] [address] bedtime. Medical Branch SERTraline 2020-0 Yes 50mg Take 50 mg U nivers 50 mg 5-25 by mouth ity of tablet 00:00: at [place] [address] bedtime. Medical Branch lamoTRIgine 2020-0 Yes 200mg Take 200 U nivers 200 mg 5-25 mg by ity of tablet 00:00: mouth at [place] [address] bedtime. Medical Branch QUEtiapine 2020-0 Yes 100mg Take 100 Un david 100 mg 5-25 mg by ity of tablet 00:00: mouth at [place] [address] bedtime. Medical Branch SERTraline 2020-0 Yes 50mg Take 50 mg U nivers 50 mg 5-25 by mouth ity of tablet 00:00: at [place] [address] bedtime. Medical Branch lamoTRIgine 2020-0 Yes 200mg Take 200 U nivers 200 mg 5-25 mg by ity of tablet 00:00: mouth at [place] [address] bedtime. Medical Branch QUEtiapine 2020-0 Yes 100mg Take 100 Un david 100 mg 5-25 mg by ity of tablet 00:00: mouth at [place] [address] bedtime. Medical Branch SERTraline 2020-0 Yes 50mg Take 50 mg U nivers 50 mg 5-25 by mouth ity of tablet 00:00: at [place] [address] bedtime. Medical Branch lamoTRIgine 2020-0 Yes 200mg Take 200 U nivers 200 mg 5-25 mg by ity of tablet 00:00: mouth at [place] [address] bedtime. Medical Branch QUEtiapine 2020-0 Yes 100mg Take 100 Un david 100 mg 5-25 mg by ity of tablet 00:00: mouth at [place] [address] bedtime. Medical Branch SERTraline 2020-0 Yes 50mg Take 50 mg U nivers 50 mg 5-25 by mouth ity of tablet 00:00: at [place] [address] bedtime. Medical Branch lamoTRIgine 1-0 Yes 200mg Take 200 U nivers 200 mg 5-25 mg by ity of tablet 00:00: mouth at [place] [address] bedtime. Medical Branch QUEtiapine 2020-0 Yes 100mg Take 100 Un david 100 mg 5-25 mg by ity of tablet 00:00: mouth at [place] [address] bedtime. Medical Branch SERTraline 2020-0 Yes 50mg Take 50 mg U nivers 50 mg 5-25 by mouth ity of tablet 00:00: at [place] [address] bedtime. Medical Branch lamoTRIgine 2020-0 Yes 200mg Take 200 U nivers 200 mg 5-25 mg by ity of tablet 00:00: mouth at [place] [address] bedtime. Medical Branch QUEtiapine 2020-0 Yes 100mg Take 100 Un david 100 mg 5-25 mg by ity of tablet 00:00: mouth at [place] [address] bedtime. Medical Branch SERTraline 2020-0 Yes 50mg Take 50 mg U nivers 50 mg 5-25 by mouth ity of tablet 00:00: at [place] [address] bedtime. Medical Branch lamoTRIgine 2020-0 Yes 200mg Take 200 U nivers 200 mg 5-25 mg by ity of tablet 00:00: mouth at [place] [address] bedtime. Medical Branch QUEtiapine 2020-0 Yes 100mg Take 100 Un david 100 mg 5-25 mg by ity of tablet 00:00: mouth at [place] [address] bedtime. Medical Branch SERTraline 2020-0 Yes 50mg Take 50 mg U nivers 50 mg 5-25 by mouth ity of tablet 00:00: at [place] [address] bedtime. Medical Branch lamoTRIgine 2020-0 Yes 200mg Take 200 U nivers 200 mg 5-25 mg by ity of tablet 00:00: mouth at [place] [address] bedtime. Medical Branch QUEtiapine 2020-0 Yes 100mg Take 100 Un david 100 mg 5-25 mg by ity of tablet 00:00: mouth at [place] [address] bedtime. Medical Branch SERTraline 2020-0 Yes 50mg Take 50 mg U nivers 50 mg 5-25 by mouth ity of tablet 00:00: at [place] [address] bedtime. Medical Branch lamoTRIgine 2020-0 Yes 200mg Take 200 U nivers 200 mg 5-25 mg by ity of tablet 00:00: mouth at [place] [address] bedtime. Medical Branch QUEtiapine 2020-0 Yes 100mg Take 100 Un david 100 mg 5-25 mg by ity of tablet 00:00: mouth at [place] [address] bedtime. Medical Branch SERTraline 2020-0 Yes 50mg Take 50 mg U nivers 50 mg 5-25 by mouth ity of tablet 00:00: at [place] [address] bedtime. Medical Branch lamoTRIgine 2020-0 Yes 200mg Take 200 U nivers 200 mg 5-25 mg by ity of tablet 00:00: mouth at [place] [address] bedtime. Medical Branch QUEtiapine 1-0 Yes 100mg Take 100 Un david 100 mg 5-25 mg by ity of tablet 00:00: mouth at [place] [address] bedtime. Medical Branch SERTraline 2020-0 Yes 50mg Take 50 mg U nivers 50 mg 5-25 by mouth ity of tablet 00:00: at [place] [address] bedtime. Medical Branch lamoTRIgine 2020-0 Yes 200mg Take 200 U nivers 200 mg 5-25 mg by ity of tablet 00:00: mouth at [place] [address] bedtime. Medical Branch QUEtiapine 2020-0 Yes 100mg Take 100 Un david 100 mg 5-25 mg by ity of tablet 00:00: mouth at [place] [address] bedtime. Medical Branch SERTraline 2020-0 Yes 50mg Take 50 mg U nivers 50 mg 5-25 by mouth ity of tablet 00:00: at [place] [address] bedtime. Medical Branch lamoTRIgine 2020-0 Yes 200mg Take 200 U nivers 200 mg 5-25 mg by ity of tablet 00:00: mouth at [place] [address] bedtime. Medical Branch QUEtiapine 2020-0 Yes 100mg Take 100 Un david 100 mg 5-25 mg by ity of tablet 00:00: mouth at [place] [address] bedtime. Medical Branch SERTraline 2020-0 Yes 50mg Take 50 mg U nivers 50 mg 5-25 by mouth ity of tablet 00:00: at [place] [address] bedtime. Medical Branch lamoTRIgine 2020-0 Yes 200mg Take 200 U nivers 200 mg 5-25 mg by ity of tablet 00:00: mouth at [place] [address] bedtime. Medical Branch QUEtiapine 2020-0 Yes 100mg Take 100 Un david 100 mg 5-25 mg by ity of tablet 00:00: mouth at [place] [address] bedtime. Medical Branch SERTraline 2020-0 Yes 50mg Take 50 mg U nivers 50 mg 5-25 by mouth ity of tablet 00:00: at [place] [address] bedtime. Medical Branch lamoTRIgine 2021-0 Yes 200mg Take 200 U nivers 200 mg 5-25 mg by ity of tablet 00:00: mouth at [place] [address] bedtime. Medical Branch QUEtiapine Yes 100mg Take 100 Un david 100 mg 5-25 mg by ity of tablet 00:00: mouth at [place] [address] bedtime. Medical Branch SERTraline Yes 50mg Take 50 mg U nivers 50 mg 5-25 by mouth ity of tablet 00:00: at [place] [address] bedtime. Medical Branch lamoTRIgine Yes 200mg Take 200 U nivers 200 mg 5-25 mg by ity of tablet 00:00: mouth at [place] [address] bedtime. Medical Branch QUEtiapine Yes 100mg Take 100 Un david 100 mg 5-25 mg by ity of tablet 00:00: mouth at [place] [address] bedtime. Medical Branch SERTraline Yes 50mg Take 50 mg U nivers 50 mg 5-25 by mouth ity of tablet 00:00: at [place] [address] bedtime. Medical Branch Immunizations Ordered Filled Immunization Date Status Comments [facility] e Immunization Name Name Influenza Virus 2022-04-08 Completed Universit y of Vaccine Quad IM, 00:00:00 [facility] dical Preserv and ABX Branch Free 6 MO-64 YRS SARS-COV-2 COVID-19 2022-04-08 Completed Unive rsity of VACCINE 18 YRS+, 00:00:00 [place] Me dical BIVALENT 0.5ML, IM, Branc h (MODERNA BOOSTER) Influenza Virus 2022-04-08 Completed Universit y of Vaccine Quad IM, 00:00:00 [place] Me dical Preserv and ABX Branch Free 6 MO-64 YRS SARS-COV-2 COVID-19 2022-04-08 Completed Unive rsity of VACCINE 18 YRS+, 00:00:00 [place] Me dical BIVALENT 0.5ML, IM, Branc h (MODERNA BOOSTER) Influenza Virus 2022-04-08 Completed Universit y of Vaccine Quad IM, 00:00:00 [place] Me dical Preserv and ABX Branch Free [...] Completed Universit y of Conjugate, PCV20 00:00:00 [place] Me dical (Prevnar 20) Branch Pneumococcal 20 2021-11-24 Completed Universit y of Conjugate, PCV20 00:00:00 [place] Me dical (Prevnar 20) Branch Pneumococcal 20 2021-11-24 Completed Universit y of Conjugate, PCV20 00:00:00 [place] Me dical (Prevnar 20) Branch Pneumococcal 20 2021-11-24 Completed Universit y of Conjugate, PCV20 00:00:00 [place] Me dical (Prevnar 20) Branch Pneumococcal 20 2021-11-24 Completed Universit y of Conjugate, PCV20 00:00:00 [place] Me dical (Prevnar 20) Branch Pneumococcal 20 2021-11-24 Completed Universit y of Conjugate, PCV20 00:00:00 [place] Me dical (Prevnar 20) Branch Pneumococcal 20 2021-11-24 Completed Universit y of Conjugate, PCV20 00:00:00 [place] Me dical (Prevnar 20) Branch Pneumococcal 20 2021-11-24 Completed Universit y of Conjugate, PCV20 00:00:00 [place] Me dical (Prevnar 20) Branch Pneumococcal 20 2021-11-24 Completed Universit y of Conjugate, PCV20 00:00:00 [place] Me dical (Prevnar 20) Branch Pneumococcal 20 2021-11-24 Completed Universit y of Conjugate, PCV20 00:00:00 [place] Me dical (Prevnar 20) Branch Pneumococcal 20 2021-11-24 Completed Universit y of Conjugate, PCV20 00:00:00 [place] Me dical (Prevnar 20) Branch Pneumococcal 20 2021-11-24 Completed Universit y of Conjugate, PCV20 00:00:00 [place] Me dical (Prevnar 20) Branch Pneumococcal 20 2021-11-24 Completed Universit y of Conjugate, PCV20 00:00:00 [place] Me dical (Prevnar 20) Branch Pneumococcal 20 2021-11-24 Completed Universit y of Conjugate, PCV20 00:00:00 [place] Me dical (Prevnar 20) Branch Pneumococcal 20 2021-11-24 Completed Universit y of Conjugate, PCV20 00:00:00 [place] Me dical (Prevnar 20) Branch Pneumococcal 20 2021-11-24 Completed Universit y of Conjugate, PCV20 00:00:00 [place] Me dical (Prevnar 20) Branch Pneumococcal 20 2021-11-24 Completed Universit y of Conjugate, PCV20 00:00:00 [place] Me dical (Prevnar 20) Branch Pneumococcal 20 2021-11-24 Completed Universit y of Conjugate, PCV20 00:00:00 [place] Me dical (Prevnar 20) Branch Pneumococcal 20 2021-11-24 Completed Universit y of Conjugate, PCV20 00:00:00 [facility] dical (Prevnar 20) Branch Pneumococcal 20 2021-11-24 Completed Universit y of Conjugate, PCV20 00:00:00 [facility] dical (Prevnar 20) Branch Pneumococcal 20 2021-11-24 Completed Universit y of Conjugate, PCV20 00:00:00 [facility] dical (Prevnar 20) Branch Pneumococcal 20 2021-11-24 Completed Universit y of Conjugate, PCV20 00:00:00 [facility] dical (Prevnar 20) Branch Pneumococcal 20 2021-11-24 Completed Universit y of Conjugate, PCV20 00:00:00 [facility] dical (Prevnar 20) Branch SARS-COV-2 COVID-19 [...] Unive rsity of MODERNA 12+ YRS 00:00:00 [facility] Branch Influenza Virus 2021-04-22 Completed Universit y of Vaccine 00:00:00 [facility] Influenza Virus 2021-04-22 Completed Universit y of Vaccine 00:00:00 [facility] Influenza Virus 2021-04-22 Completed Universit y of Vaccine 00:00:00 [facility] Influenza Virus 2021-04-22 Completed Universit y of Vaccine 00:00:00 [facility] Influenza Virus 2021-04-22 Completed Universit y of Vaccine 00:00:00 [facility] Influenza Virus 2021-04-22 Completed Universit y of Vaccine 00:00:00 [facility] Influenza Virus 2021-04-22 Completed Universit y of Vaccine 00:00:00 [facility] Influenza Virus 2021-04-22 Completed Universit y of Vaccine 00:00:00 [facility] Influenza Virus 2021-04-22 Completed Universit y of Vaccine 00:00:00 [facility] Influenza Virus 2021-04-22 Completed Universit y of Vaccine 00:00:00 [facility] Influenza Virus 2021-04-22 Completed Universit y of Vaccine 00:00:00 [facility] Influenza Virus 2021-04-22 Completed Universit y of Vaccine 00:00:00 [facility] Influenza Virus 2021-04-22 Completed Universit y of Vaccine 00:00:00 [facility] Influenza Virus 2021-04-22 Completed Universit y of Vaccine 00:00:00 [facility] Influenza Virus 2021-04-22 Completed Universit y of Vaccine 00:00:00 [facility] Influenza Virus 2021-04-22 Completed Universit y of Vaccine 00:00:00 [facility] Influenza Virus 2021-04-22 Completed Universit y of Vaccine 00:00:00 [facility] Influenza Virus 2021-04-22 Completed [facility] [facility] Influenza Virus 2021-04-22 Completed Universit y of Vaccine 00:00:00 [facility] Influenza Virus 2021-04-22 Completed Universit y of Vaccine 00:00:00 [facility] Influenza Virus 2021-04-22 Completed Universit y of Vaccine 00:00:00 [facility] Influenza Virus 2021-04-22 Completed Universit y of Vaccine 00:00:00 [facility] Influenza Virus 2021-04-22 Completed Universit y of Vaccine 00:00:00 [facility] SARS-COV-2 COVID-19 2020-11-05 Completed Unive rsity of [...] Unive rsity of MODERNA 12+ YRS 00:00:00 [place] [facility] ical VACCINE Branch SARS-COV-2 COVID-19 2020-10-08 Completed Unive rsity of MODERNA 12+ YRS 00:00:00 [facility] ical VACCINE Branch Vital Signs Vital Name Observation Time Observation Value Comments Source Systolic blood 2022-06-14 19:23:00 126 mm[Hg] Univer sity of pressure [facility] Diastolic blood 2022-06-14 19:23:00 78 mm[Hg] Unive rsity of pressure [facility] Heart rate 2022-06-14 19:23:00 68 /min [facility] Body temperature 2022-06-14 19:23:00 36.72 Ashlee [facility] Respiratory rate 2022-06-14 19:23:00 18 /min [facility] Body height 2022-06-14 19:23:00 165.1 cm [facility] Body weight 2022-06-14 19:23:00 94.892 kg [facility] BMI 2022-06-14 19:23:00 34.81 kg/m2 [facility] Height/Length 2021-08-05 08:48:40 165 cm Measured Weight Dosing 2021-08-05 08:48:40 89.3 kg Weight Dosing 2021-08-05 08:48:12 89.3 kg Height/Length 2021-08-05 08:48:12 165 cm Measured Height/Length 2020-05-28 12:53:26 Measured Weight Dosing 2020-05-28 12:53:26 Procedures Procedure Date / Time Performing Clinician Source Performed EXTERNAL PROVIDER RECORDS 2022-06-23 06:01:00 Doctor [facility] Name Medical Branch REFERRAL- 2022-06-02 06:01:00 Doctor Leilani [facility] REQUEST/RESPONSE [place] [facility] REFERRAL- 2022-05-11 05:01:00 Doctor Leilani [facility] REQUEST/RESPONSE [place] [facility] [place] DME/SUPPLY JUSTIFICATION 2022-04-28 05:01:00 Doctor [facility] Name [facility] PHYSICIAN ORDERS 2022-04-12 05:01:00 Doctor Leilani [facility] Name Medical [place] FLU VACC (), 6 2022-04-08 19:25:44 Manisha Norris [facility] MO-62 YRS, .5ML, IM, QUAD Medica l Branch (FLUCELVAX) SARS-COV-2 COVID-19 2022-04-08 19:25:44 Manisha Norris [facility] VACCINE 18 YRS+, BIVALENT Medica l Branch 0.5ML, IM (MODERNA BOOSTER) INSURANCE CORRESPONDENCE 2022-04-04 05:01:00 Doctor [facility] [place] [facility] HOME HEALTH - OTHER 2022-03-24 05:01:00 Doctor [facility] Name Medical Branch INSURANCE CORRESPONDENCE 2022-03-08 05:01:00 Doctor [facility] Name Medical [place] Encounters Start End Encounter Admission Attending Care Care Encounter Source Date/Time Date/Time Type Type Clinicians Facility Department ID 2022-05-23 Outpatient [facility] [id number] Common 11:12:01 Franko [id number] [facility] 2020-05-28 Inpatient 3 Corwin Clar[facility] [id number] Medical 14:35:00 Corwin Claros [facility] 2022-10-07 2022-10-07 Outpatient Tere NOR[facility]IS [facility] [id number] Univers 13:45:00 13:45:00 MANISHA levin [facility] 2022-10-03 2022-10-03 Outpatient R LICO WHITE [facility] [id number] Univers 15:00:00 15:00:00 LICO WHITE poonam [facility] 2022-06-30 2022-06-30 Telephone [facility] 1.2.840.114 [id number] Univers 00:00:00 00:00:00 Umberto Thomas [facility] 350.1.13.10 it y of [place] 4.2.7.2.686 Jesus as SAMSON?BLEA [phone] Or keaton SMITH [address] [facility] OFFICE [facility] 2022-06-27 2022-06-27 Telephone [facility] 1.2.840.114 [id number] Univers 00:00:00 00:00:00 Umberto Thomas [facility] 350.1.13.10 it [facility] 4.2.7.2.686 Jesus as SAMSON?BLEA [phone] Or keaton SMITH [address] [facility] OFFICE [facility] 2022-06-24 2022-06-24 Telephone [facility] 1.2.840.114 [id number] Univers 00:00:00 00:00:00 Umberto Thomas [facility] 350.1.13.10 it y of [place] 4.2.7.2.686 Jesus as SAMSON?BLEA [phone] Or keaton SMITH 0[address] [facility] OFFICE [facility] 2022-06-23 2022-06-23 Orders Doctor DOMINGO 1.2.840.114 [id number] Univers 00:00:00 00:00:00 Only Unassigned, LUDIN 350.1.13.10 ity of [place] [facility] 4.2.7.2.686 Jesus as [phone] [address] 2022-06-15 2022-06-15 Outpatient R DONYA [facility] [id number] Univers 14:20:00 14:20:00 SUNIL levin [facility] 2022-06-14 2022-06-14 Office [facility] 1.2.991.535 [id number] Univers 16:15:00 16:15:00 Visit Rosales GUNTER 350.1.13.10 i ty of [place] [phone] Or dical NAL 134 [facility] 2022-06-14 2022-06-14 Outpatient R ARAM [facility] [id number] Univers 16:15:00 13:57:54 ROSALES ity of [facility] 2022-06-14 2022-06-14 Telephone [facility] 1.2.840.114 [id number] Univers 00:00:00 00:00:00 Rosales GUNTER 350.1.13.10 i ty [place] PROF[place] [phone] Or dic[address] 2022-06-02 2022-06-02 Orders Doctor DOMINGO 1.2.840.114 [id number] Univers 00:00:00 00:00:00 Only Unassigned, LUDIN 350.1.13.10 ity of [place] [facility] 4.2.7.2.686 Jesus as [id number] [address] 2022-05-30 2022-05-30 Telephone [facility] 1.2.840.114 [id number] Univers 00:00:00 00:00:00 Umberto L HEALTH 350.1.13.10 it y of [place] 4.2.7.2.686 Jesus as SAMSON?BLEA [phone] [address] OFFICE [facility] 2022-05-11 2022-05-11 Orders Doctor DOMINGO 1.2.840.114 [id number] Univers 00:00:00 00:00:00 Only Unassigned, LUDIN 350.1.13.10 ity of [place] [facility] 4.2.7.2.686 Jesus as [phone] [address] 2022-05-03 2022-05-03 Telephone [facility] 1.2.840.114 [id number] Univers 00:00:00 00:00:00 Umberto L HEALTH 350.1.13.10 it y of [facility] 4.2.7.2.686 Jesus as SAMSON?BLEA [phone] [address] OFFICE [facility] 2022-04-28 2022-04-28 Orders Doctor DOMINGO 1.2.840.114 [id number] Univers 00:00:00 00:00:00 Only Unassigned, LUDIN 350.1.13.10 ity of [place] [facility] 4.2.7.2.686 Jesus as [phone] [address] 2022-04-26 2022-04-26 [facility] 1.2.840.114 [id number] Univers 00:00:00 00:00:00 Leela GUNTER 350.1.13.10 ity of [place] [phone] Or keaton [facility] 085 [facility] 2022-04-12 2022-04-12 Orders Doctor DOMINGO 1.2.840.114 [id number] Univers 00:00:00 00:00:00 Only Unassigned, LUDIN 350.1.13.10 ity of [place] [facility] 4.2.7.2.686 Jesus as [phone] [address] 2022-04-11 2022-04-11 [facility]phone [facility] 1.2.840.114 [id number] Univers 00:00:00 00:00:00 [facility] 350.1.13.10 it y of [place] 4.2.7.2.686 Jesus as SAMSON?BLEA [phone] Or keaton NEALEY [address] [facility] OFFICE [facility] 2022-04-08 2022-04-08 Manager Business Intelligence Pcp-Lab [facility] 1.2.840.114 [id number] Univers 14:45:00 15:00:00 Visit Manisha Norris 350.1.13.10 ity of [place] [phone] Or keaton [address] [place] 2022-04-08 2022-04-08 Outpatient Tere [facility] [id number] Univers 13:45:00 14:35:25 MANISHA itmckenna of [facility] 2022-04-08 2022-04-08 Office Jr [facility] 1.2.840.114 [id number] Univers 13:45:00 14:35:25 Visit Manisha Hale MARTINA 350.1.13.10 it y of CARE 4.2.7.2.686 [place] LENNIE [phone] Or keaton [place] 2022-04-08 2022-04-08 Outpatient Tere [facility] [id number] Univers 13:45:00 13:45:00 MANISHA ity [facility] 2022-04-08 2022-04-08 Outpatient Tere [facility] [id number] Univers 13:45:00 13:45:00 MANISHA levin [facility] 2022-04-08 2022-04-08 Outpatient Tere [facility] [id number] Univers 13:45:00 13:45:00 MANISHA levin [facility] 2022-04-08 2022-04-08 Outpatient Tere [facility] [id number] Univers 13:45:00 13:45:00 MANISHA levin [facility] 2022-04-08 2022-04-08 Outpatient Tere [facility] [id number] Univers 13:45:00 13:45:00 MANISHA mckenna [facility] 2022-04-04 2022-04-04 Orders Doctor DOMINGO 1.2.840.114 [id number] Univers 00:00:00 00:00:00 Only Unassigned, LUDIN 350.1.13.10 ity of [place] [facility] 4.2.7.2.686 Jesus as [id number] [address] 2022-03-28 2022-03-28 Telephone [facility] 1.2.840.114 [id number] Univers 00:00:00 00:00:00 Umberto L HEALTH 350.1.13.10 it y of [place] 4.2.7.2.686 Jesus as SAMSON?BLEA [phone] [address] MEDICAL OFFICE BUILDING 2022-03-25 2022-03-25 Refill Gavin [facility] 1.2.840.114 [id number] Univers 00:00:00 00:00:00 [facility] HEALTH 350.1.13.10 it y of [place] 4.2.7.2.686 Jesus as SAMSON?BLEA [phone] Or keaton SMITH [address] [place] MEDICAL OFFICE [facility] 2022-03-24 2022-03-24 Orders Doctor DOMINGO 1.2.840.114 [id number] Univers 00:00:00 00:00:00 Only Unassigned, LUDIN 350.1.13.10 ity of [place] [facility] 4.2.7.2.[phone] [facility] [address] [place] 2022-03-18 2022-03-18 Patient Jr DEAMBER 1.2.840.114 [id number] Univers 00:00:00 00:00:00 Secure Msg Manisha A PRIMARY 350.1.13.10 ity of [place]2.[place] [phone] Or keaton [address] [place] 2022-03-17 2022-03-17 Office Annabelle [facility] 1.2.840.114 [id number] Univers 13:00:00 13:15:00 Visit [facility] 350.1.13.10 it y of [place] 4.2.7.2.686 Jesus as SAMSON?BLEA [phone] Or keaton SMITH [address] [facility] OFFICE [facility] 2022-03-17 2022-03-17 Outpatient R ANNABELLE [facility] [id number] Univers 13:00:00 13:00:00 [facility] 2022-03-15 2022-03-15 Outpatient Tere [facility] [id number] Univers 00:00:00 00:00:00 ROSALES itmckenna [facility] 2022-03-15 2022-03-15 Outpatient Tere [facility] [id number] Univers 00:00:00 00:00:00 ROSALES itmckenna [facility] 2022-03-15 2022-03-15 Outpatient Tere [facility] [id number] Univers 00:00:00 00:00:00 [facility] 2022-03-09 2022-03-09 Patient Annabelle [facility] 1.2.840.114 [id number] Univers 00:00:00 00:00:00 Secure Msg [facility] 350.1.13.10 ity of [place] 4.2.7.2.686 Jesus as SAMSON?BLEA [phone] Or keaton SMITH [address] [place] MEDICAL OFFICE BUILDING 2022-03-08 2022-03-08 Telephone Ofe [facility] 1.2.840.114 [id number] Univers 00:00:00 00:00:00 Franko [facility] 350.1.13.10 it y of [place] 4.2.7.2.686 Jesus as SAMSON?BLEA [phone] Or keaton SMITH [address] [place] MEDICAL OFFICE [facility] 2022-03-08 2022-03-08 Orders Doctor DOMINGO 1.2.840.114 [id number] Univers 00:00:00 00:00:00 Only Unassigned, LUDIN 350.1.13.10 ity of [place] [facility] 4.2.7.2.686 Jesus as [phone] [address] 2022-03-07 2022-03-07 Orders Doctor DOMINGO 1.2.840.114 [id number] Univers 00:00:00 00:00:00 Only Unassigned, LUDIN 350.1.13.10 ity of [place] [facility] 4.2.7.2.686 Jesus as [phone] [address] 2022-03-04 2022-03-04 Patient Jr [facility] 1.2.840.114 [id number] Univers 00:00:00 00:00:00 Secure Msg Manisha A PRIMARY 350.1.13.10 it[place] L[place] [phone] [address] 2022-03-04 2022-03-04 Orders Doctor DOMINGO 1.2.840.114 [id number] Univers 00:00:00 00:00:00 Only Unassigned, LUDIN 350.1.13.10 ity of [place] [facility] 4.2.7.2.686 Jesus as [id number] [address] 2022-02-28 2022-02-28 Radha Alanis DEAMBER 1.2.840.114 [id number] Univers 00:00:00 00:00:00 Dixie S HEALTH 350.1.13.10 it y of [place] 4.2.7.2.686 Jesus as SAMSON?BLEA [phone] Or keaton SMITH [address] [facility] OFFICE [facility] 2022-02-25 2022-02-25 Outpatient Tere ALANIS [facility] [id number] Univers 09:05:00 23:59:00 [facility]22-02-25 [facility] [id number] Univers 09:05:00 23:59:00 DIXIE [facility] 2022-02-25 2022-02-25 Office [facility] 1.2.840.114 [id number] Univers 09:30:00 09:45:00 Visit [facility] 350.1.13.10 it y of [facility] 4.2.7.2.686 Jesus as SAMSON?BLEA [phone] Or keaton SMITH 198 [facility] 2022-02-25 2022-02-25 Outpatient Tere [facility] [id number] Univers 09:30:00 09:30:00 [facility] 2022-02-24 2022-02-24 Telephone [facility] 1.2.840.114 [id number] Univers 00:00:00 00:00:00 Umberto L HEALTH 350.1.13.10 it y of [place] 4.2.7.2.686 Jesus as SAMSON?BLEA [phone] Or keaton SMITH [address] [facility] OFFICE [facility] 2022-02-20 2022-02-20 Radha Thakur [facility] 1.2.840.114 [id number] Univers 00:00:00 00:00:00 Franko HEALTH 350.1.13.10 it y of [place] 4.2.7.2.686 Jesus as SAMSON?BLEA [phone] Or keaton SMITH [address] [facility] OFFICE [facility] 2022-02-15 2022-02-[address] 1.2.840.114 [id number] Univers 00:00:00 00:00:00 Only Unassigned, LUDIN 350.1.13.10 ity of [place] [facility] 4.2.7.2.686 Jesus as [phone] [address] 2022-02-14 2022-02-14 Outpatient Tere ANNABELLE [facility] [id number] Univers 14:40:00 23:59:00 DIXIE ity [facility] 2022-02-14 2022-02-14 Outpatient Tere ANNABELLE [facility] [id number] Univers 14:40:00 23:59:00 DIXIE ity [facility] 2022-02-14 2022-02-14 Outpatient Tere ANNABELLE [facility] [id number] Univers 14:40:00 23:59:00 DIXIE ity [facility] 2022-02-14 2022-02-14 Outpatient Tere ANNABELLE [facility] [id number] Univers 14:00:00 15:49:45 DIXIE ity [facility] 2022-02-14 2022-02-14 Office Umberto Saul [facility] 1.2.840. 114 [id number] Univers 14:00:00 15:49:45 Visit Dixie Alanis [facility] 350.1.13.10 ity of [place] 4.2.7.2.686 Jesus as SAMSON?BLEA [phone] [address] MEDICAL OFFICE BUILDING 2022-02-14 2022-02-14 Orders Doctor DOMINOG 1.2.840.114 [id number] Univers 00:00:00 00:00:00 Only Unassigned, LUDIN 350.1.13.10 ity of [place] [facility] 4.2.7.2.686 Jesus as [phone] [address] 2022-02-11 2022-02-11 Orders Doctor DOMINGO 1.2.840.114 [id number] Univers 00:00:00 00:00:00 Only Unassigned, LUDIN 350.1.13.10 ity of [place] [facility] 4.2.7.2.686 Jesus as [phone] [address] 2022-02-09 2022-02-09 Telephone Ofe [facility] 1.2.840.114 [id number] Univers 00:00:00 00:00:00 [facility] 350.1.13.10 it y of [place] 4.2.7.2.686 Jesus as SAMSON?BLEA [phone] Or keaton SMITH [address] [facility] OFFICE [facility] 2022-02-08 2022-02-08 Telephone [facility] 1.2.840.114 [id number] Univers 00:00:00 00:00:00 [facility] 350.1.13.10 it y of [place] 4.2.7.2.686 Jesus as SAMSON?BLEA [phone] Or keaton SMITH [address] [facility] OFFICE [facility] 2022-02-08 2022-02-08 Telephone [facility] 1.2.840.114 [id number] Univers 00:00:00 00:00:00 [facility] 350.1.13.10 it y of [place] 4.2.7.2.686 Jesus as SAMSON?BLEA [phone] Or keaton SMITH 198 [facility] 2022-02-07 2022-02-07 Outpatient Te[facility] [id number] Univers 13:30:00 13:30:00 [facility] 2022-02-07 2022-02-07 Outpatient Tere [facility] [id number] Univers 13:30:00 13:30:00 [facility] 2022-02-07 2022-02-07 Outpatient Tere [facility] [id number] Univers 13:30:00 13:30:00 [facility] 2022-02-07 2022-02-07 Outpatient Tere [facility] [id number] Univers 13:30:00 13:30:00 [facility] 2022-02-07 2022-02-07 Outpatient [facility] [id number] Univers 13:30:00 13:30:00 [facility] 2022-02-07 2022-02-07 [facility]ill [facility] 12.840.114 [id number] Univers 00:00:00 00:00:00 [facility] 350.1.13.10 it y of [place] 4.2.7.2.686 Jesus as SAMSON?BLEA [phone] Or keaton SMITH [address] [facility] OFFICE [facility] 2022-02-07 2022-02-07 Telephone [facility] 1.2.840.114 [id number] Univers 00:00:00 00:00:00 Umberto Thomas HEALTH 350.1.13.10 it y of [place] 4.2.7.2.686 Jesus as SAMSON?BLEA [phone] Me keaton SMITH [address] [facility] OFFICE [facility] 2022-02-06 2022-02-06 Orders Doctor DOMINGO 1.2.840.114 [id number] Univers 00:00:00 00:00:00 Only Unassigned, LUIDN 350.1.13.10 ity of [place] [facility] 4.2.7.2.[phone] [facility] [address] [place] 2022-02-03 2022-02-03 Telephone [facility] 1.2.840.114 [id number] Univers 00:00:00 00:00:00 Umberto HEALTH 350.1.13.10 it y of [place] 4.2.7.2.686 Jesus as SAMSON?BLEA [phone] Me keaton SMITH [address] [facility] OFFICE [facility] 2022-02-01 2022-02-01 Transition PortilloPIERRE 1.2.840.114 [id number] Univers 00:00:00 00:00:00 of Care Kasandra SAUCEDO 350.1.13.10 it y of [place]2.7.[place].[address] [place] [id number] [facility] [address] [place] 2022-02-01 2022-02-01 Telephone [facility] 1.2.840.114 [id number] Univers 00:00:00 00:00:00 Umberto L HEALTH 350.1.13.10 it y of [place] 4.2.7.2.686 Jesus as SAMSON?BLEA [phone] Or keaton SMITH [address] [facility] OFFICE [facility] 2022-01-31 2022-01-31 Outpatient [facility] [id number] Univers 07:00:00 20:05:00 UMBERTO ity of [facility] 2022-01-31 2022-01-31 [facility] 1.2.840.114 [id number] Univers 07:00:00 20:05:00 Encounter Umberto GUNTER 350.1.13.10 ity of [place] SURGICAL [id number] [facility] [address] 2022-01-31 2022-01-31 Outpatient [facility] [id number] Univers 07:00:00 20:05:00 [facility] 2022-01-31 2022-01-31 Outpatient R [facility] [id number] Univers 07:00:00 20:05:00 [facility] 2022-01-31 2022-01-31 Outpatient [facility] [id number] Univers 07:00:00 20:05:00 [facility] 2022-01-31 2022-01-31 Outpatient R [facility] [id number] Univers 07:00:00 20:05:00 [facility] 2022-01-31 2022-01-31 Anesthesia Dinh Phillips [facility] 1.2.840.11 [id number] Univers 09:34:00 12:12:00 Event Heriberto Vyas 35 0.1.13.10 ity of [place]ICAL [id number] [facility] [address] [place] 2022-01-31 2022-01-31 Surgery [facility] 1.2.879.888 [id number] Univers 09:45:00 12:11:00 Umberto GUNTER 350.1.13.10 i ty of [place] 4[place]2.7.2.[place] SURGICAL [phone] [facility] [address] 2022-01-31 2022-01-[address] 1.2.840.114 [id number] Univers 00:00:00 00:00:00 Only Unassigned, LUDIN 350.1.13.10 ity of [place] [facility] 4.2.7.2.686 Jesus as [id number] [place] [address] [place] 2022-01-29 2022-01-29 Orders Doctor DOMINGO 1.2.840.114 [id number] Univers 00:00:00 00:00:00 Only Unassigned, LUDIN 350.1.13.10 ity of [place] [facility] 4.2.7.2.[id number] [facility] [address] 2022-01-28 2022-01-28 Laboratory Only, Adc Test [facility] 1.2.840. 114 [id number] Univers 10:15:00 10:30:00 Only Umberto Saul 350.1.13.10 ity of [place] 4.2.7.2.[place] [address] [id number] [facility] [address] [place] 2022-01-28 2022-01-28 Outpatient R KG [facility] [id number] Univers 10:15:00 10:15:00 [facility] 2022-01-27 2022-01-27 Outpatient R KG [facility] [id number] Univers 13:00:00 16:30:58 [facility] 2022-01-27 2022-01-27 Outpatient R [facility] [id number] Univers 13:00:00 16:30:58 [facility] 2022-01-27 2022-01-27 Manager Business Intelligence Mary, [facility] Main [facility] 1.2.8 40.114 [id number] Univers 15:15:00 15:30:00 Visit Umberto Saul 350.1.13.10 ity [facility] [place] [facility] [id number] Or dical [facility] 353 [facility] 2022-01-27 2022-01-27 Outpatient R [facility] [id number] Univers 14:46:01 14:48:00 [facility]O [facility] 2022-01-27 2022-01-27 [facility] 1.2.840.114 [id number] Univers 14:00:00 14:48:00 Encounter Umberto GUNTER 350.1.13.10 [place] [id number] [facility] danish [address] 2022-01-27 2022-01-27 Ancillary Negro Donna Benitez [facility] 1 .2.840.114 [id number] Univers 13:00:00 13:45:00 Visit Umberto Saul 350.1.13.10 ity of [facility] 4[place]2.7.2.[place] [id number] Or dical NAL [address] 2022-01-27 2022-01-27 Outpatient R [facility] [id number] Univers 13:00:00 13:00:00 UMBERTOWALTER levin [facility] 2022-01-27 2022-01-27 Orders Doctor DOMINGO 1.2.840.114 [id number] Univers 00:00:00 00:00:00 Only Unassigned, LUDIN 350.1.13.10 ity of [facility] 4.2.7.2.[id number] [facility] [address] [place] 2022-01-13 2022-01-13 Prep For Kg [facility] 1.2.840.114 [id number] Univers 00:00:00 00:00:00 Surgery Umberto Behzad [facility] 350.1.13.10 it y of [place] 4.2.7.2.686 Jesus as [place]?BLEA [phone] Or dical KNEY [address] MEDICAL OFFICE BUILDING 2022-01-11 2022-01-11 Orders Doctor DOMINGO 1.2.840.114 [id number] Univers 00:00:00 00:00:00 Only Unassigned, LUDIN 350.1.13.10 ity of [facility] 4.2.7.2.[id number] [facility] [address] 2022-01-07 2022-01-07 [facility] [facility] 1.2.840.114 [id number] Univers 00:00:00 00:00:00 Secure Msg Buddy [facility] 350.1.13.10 ity of [facility] [place] [phone] Or dical NAL [address] BUILDING 2022-01-052022-01-05 Outpatient Tere [facility] [id number] Univers 11:26:51 23:59:00 MANISHA poonam [facility] 2022-01-05 2022-01-05 [facility] 1.2.840.114 [id number] Univers 11:26:51 23:59:00 Encounter Manisha Hale PRIMARY 350.1.13.10 ity of [place] [phone] [facility] [address] 2022-01-05 2022-01-05 Outpatient Tere [facility] [id number] Univers 11:26:51 23:59:00 MANISHA levin [facility] 2022-01-05 2022-01-05 [facility] [id number] Univers 11:26:51 23:59:00 MANISHA levin [facility] 2022-01-05 2022-01-05 Outpatient Tere [facility] [id number] Univers 11:15:00 11:16:23 MANISHA levin [facility] 2022-01-05 2022-01-05 [facility] 1.2.840.114 [id number] Univers 11:15:00 11:16:23 Visit Manisha Hale PRIMARY 350.1.13.10 it y [place].2.[place] [phone] Or maureennh [address] 2022-01-05 2022-01-05 Outpatient Tere [facility] [id number] Univers 11:15:00 11:15:00 MANISHA levin [facility] 2022-01-05 2022-01-05 Outpatient [facility] [id number] Univers 11:15:00 11:15:00 MANISHA levin [facility] 2022-01-03 2022-01-03 Office [facility] 1.2.840.114 [id number] Univers 14:00:00 14:15:00 Visit [facility] 350.1.13.10 it y of [place] 4.2.7.2.686 Jesus as SAMSON?BLEA [phone] Or dic[address] MEDICAL OFFICE [facility] 2022-01-03 2022-01-03 Outpatient R ALANIS, [facility] [id number] Univers 14:00:00 14:00:00 DIXIE ity [facility] 2021-12-31 2021-12-31 Telephone [facility] 1.2.840.114 [id number] Univers 00:00:00 00:00:00 [facility] 350.1.13.10 it y of [place] 4.2.7.2.686 Jesus as SAMSON?BLEA [phone] Or keaton SMITH [address] [facility] OFFICE [facility] 2021-12-31 2021-12-31 Telephone [facility] 1.2.114.132 [id number] Univers 00:00:00 00:00:00 Adityasabra LYRIC 350.1.13.10 ity of [facility] 4.2.7.2.[place] [phone] Or keaton MORENO [address] [place] [address] 2021-12-29 2021-12-29 Outpatient R GUANAKO, [facility] [id number] Univers 15:49:46 23:59:00 BUDDY levin o [facility] 2021-12-29 2021-12-29 Outpatient R GUANAKO, [facility] [id number] Univers 15:49:46 23:59:00 BUDDY bryanty o [facility] 2021-12-15 2021-12-15 Office Guanako, [facility] 1.2.840.114 [id number] Univers 14:20:00 14:20:00 Visit Buddy GUNTER 350.1.13.10 ity [facility] 4.2.7.2.[place] [phone] Or maureennh NAL [address] [place] [address] 2021-12-15 2021-12-15 Outpatient R GUANAKO, [facility] [id number] Univers 14:20:00 14:17:40 ADITYASABRA mannyy o [facility] 2021-12-15 2021-12-15 Outpatient R GUANAKO, [facility] [id number] Univers 14:20:00 14:17:40 BUDDY bryanty o [facility] 2021-12-07 2021-12-07 Office [facility] 1.2.840.114 [id number] Univers 10:15:00 10:30:00 Visit [facility] 350.1.13.10 it y of [place] 4.2.7.2.686 Jesus as SAMSON?BLEA [phone] Or dical KNEY [address] [facility] OFFICE [facility] 2021-12-07 2021-12-07 Outpatient R OFE [facility] [id number] Univers 10:15:00 10:15:00 FRANKO y [facility] 2021-12-03 2021-12-03 Patient Isabel [facility] 1.2.840.114 [id number] Univers 00:00:00 00:00:00 Secure Msg Faith LYRIC 350.1.13.10 ity of [place].2.7.2.686 [place] [facility] [phone] Or dical NAL 134 [facility] 2021-12-03 2021-12-03 Orders Doctor DOMINGO 1.2.840.114 [id number] Univers 00:00:00 00:00:00 Only Unassigned, LUDIN 350.1.13.10 ity of [place] [facility] 4.2.7.2.[phone] [facility] [address] 2021-11-23 2021-11-23 [facility] 1.2.840.114 [id number] Univers 14:21:11 23:59:00 Encounter Rosales GUNTER 350.1.13.10 ity of [place] 4.2.7.2.686 [place] [address] [phone] [facility] [address] 2021-11-23 2021-11-23 Outpatient R ARAM [facility] [id number] Univers 00:00:00 23:59:00 [facility] 2021-11-23 2021-11-23 Outpatient R ARAM [facility] [id number] Univers 00:00:00 23:59:00 ROSALES [facility] 2021-11-23 2021-11-23 [facility] 1.2.840.114 [id number] Univers 14:00:00 14:20:00 Encounter Rosales GUNTER 350.1.13.10 ity of [place] 4.2.7.2.[place] [address] [phone] [facility] [address] 2021-11-23 2021-11-23 Outpatient R ARAM [facility] [id number] Univers 00:00:00 14:20:00 ROSALES mckenna [facility] 2021-11-23 2021-11-23 Outpatient R ARAM [facility] [id number] Univers 00:00:00 14:20:00 ROSALES mceknna [facility] 2021-11-23 2021-11-23 Orders Doctor DOMINGO 1.2.840.114 [id number] Univers 00:00:00 00:00:00 Only Unassigned, LUDIN 350.1.13.10 ity of [place] [facility] 4.2.7.2.[phone] [facility] [address] 2021-11-22 2021-11-22 Patient Biancaabbirodriguez[facility] 1.2.840.114 [id number] Univers 00:00:00 00:00:00 Secure [facility] 350.1.13.10 ity of [place] PEÑACARLOS A 4.2.7.2.686 Jesus as SAMSON?BLEA [phone] [facility] [address] MEDICAL OFFICE BUILDING 2021-11-05 2021-11-05 Office [facility] 1.2.125.734 [id number] Univers 11:00:00 11:00:00 Visit [facility] 350.1.13.10 it y of [place] 4.2.7.2.686 Jesus as SAMSON?BLEA [phone] [facility] [address] MEDICAL OFFICE BUILDING 2021-11-05 2021-11-05 Outpatient R KG [facility] [id number] Univers 11:00:00 09:10:39 UMBERTO levin [facility] 2021-11-05 2021-11-05 Outpatient Tere SAUL [facility] [id number] Univers 11:00:00 09:10:39 UMBERTO levin [facility] 2021-11-05 2021-11-05 Outpatient R KG [facility] [id number] Univers 11:00:00 09:10:39 UMBERTO mckenna [facility] 2021-11-05 2021-11-05 Outpatient R SAUL, [facility] [id number] Univers 11:00:00 09:10:39 UMBERTO levin [facility] 2021-11-02 2021-11-02 Telephone Jr [facility] 1.2.688.716 [id number] Univers 00:00:00 00:00:00 Manisha A PRIMARY 350.1.13.10 it y of [place]2.[place].2.[place] [phone] [address] 2021-10-26 2021-10-26 Patient [facility] 1.2.840.114 [id number] Univers 00:00:00 00:00:00 Secure Msg Manisha A MULTISPEC 350.1.13.10 ity of [place].2.7.2.686 [place] CENTER [phone] [address] [facility] 2021-10-25 2021-10-25 Refill [facility] 1.2.840.114 [id number] Univers 00:00:00 00:00:00 Manisha A PRIMARY 350.1.13.10 it y of [place] 4.2.[place].2.[place] [id number] [address] 2021-10-07 2021-10-07 Telephone Jr [facility] 1.2.095.009 [id number] Univers 00:00:00 00:00:00 Manisha A MULTISPEC 350.1.13.10 ity of [place] 4.2.7.2.686 [place] CENTER [id number] [address] [facility] 2021-10-07 2021-10-07 Telephone Ofe [facility] 1.2.840.114 [id number] Univers 00:00:00 00:00:00 [facility] 350.1.13.10 it y of [place] G[place] 4.2.7.2.686 Jesus as SAMSON?BLEA [phone] [address] OFFICE BUILDING 2021-10-05 2021-10-05 Outpatient Tere [facility] [id number] Univers 12:04:52 23:59:00 MANISHA levin [facility] 2021-10-05 2021-10-05 Hospital Jr [facility] 1.2.840.114 [id number] Univers 12:04:52 23:59:00 Encounter Manisha Hale PRIMARY 350.1.13.10 ity of [place] 4.2.7.2.686 [place] [phone] Or keaton [address] 2021-10-05 2021-10-05 Outpatient Tere [facility] [id number] Univers 12:04:52 23:59:00 MANISHA levin [facility] 2021-10-05 2021-10-05 Outpatient Tere [facility] [id number] Univers 12:04:52 23:59:00 MANISHA levin [facility] 2021-10-05 2021-10-05 Outpatient Tere [facility] [id number] Univers 12:04:52 23:59:00 MANISHA levin [facility] 2021-10-05 2021-10-05 Manager Business Intelligence Pcp-Lab [facility] 1.2.840.114 [id number] Univers 12:15:00 12:30:00 Visit Jr Manisha Hale PRIMARY 350.1.13.10 ity of [place] 4.2.[place].2.[place] [id number] Or keaton [address] 2021-10-05 2021-10-05 Outpatient Tere [facility] [id number] Univers 12:15:00 12:15:00 MANISHA levin [facility] 2021-10-05 2021-10-05 Office [facility] 1.2.840.114 [id number] Univers 11:15:00 11:50:24 Visit Manisha Hale PRIMARY 350.1.13.10 it y of [place].2.[place] [phone] Or keaton [address] 2021-10-04 2021-10-04 Refill Jr [facility] 1.2.840.114 [id number] Univers 00:00:00 00:00:00 Manisha A PRIMARY 350.1.13.10 it y of [place]2.[place] [id number] [address] 2021-08-31 2021-08-31 Patient [facility] 1.2.840.114 [id number] Univers 00:00:00 00:00:00 Secure Msg Guerita [place] 350.1.13.10 ity of [facility] 4.2.7.2.[place] [phone] [address] 2021-08-30 2021-08-30 Telephone [facility] 1.2.985.837 [id number] Univers 00:00:00 00:00:00 Guerita M[place] 350.1.13.10 i ty of [place] 4.2.7.2.[place] [phone] [address] 2021-08-24 2021-08-24 Office [facility] 1.2.840.114 [id number] Univers 11:30:00 12:16:13 Visit [facility] 350.1.13.10 it y of [place] 4.2.7.2.686 Jesus as SAMSON?BLEA [phone] [address] OFFICE [facility] 2021-08-24 2021-08-24 [facility] [id number] Univers 11:30:00 12:16:13 [facility] [place] [facility] 2021-08-24 2021-08-24 Outpatient R [facility] [id number] Univers 11:30:00 11:30:00 [facility] 2021-08-24 2021-08-24 Refill Jr [facility] 1.2.840.114 [id number] Univers 00:00:00 00:00:00 Manisha A PRIMARY 350.1.13.10 it y of [place].2.[place] [phone] [address] 2021-08-13 2021-08-13 Radha [facility] 1.2.840.114 [id number] Univers 00:00:00 00:00:00 Wentmj GUNTER 350.1.13.10 i ty of [facility] 4.2.7.2.[place] [id number] Or dical NAL 220 [facility] 2021-07-28 2021-07-28 [facility] 1.2.871.595 [id number] Univers 10:40:00 11:00:00 Visit Stramtbehzad Florencio LYRIC 350.1.13.10 ity of [facility] 4.2.7.2.[place] [phone] [facility] NAL [address] [facility] 2021-07-28 2021-07-28 Outpatient R ADINA [facility] [id number] Univers 10:40:00 10:40:00 ADINA [facility] 2021-07-28 2021-07-28 Outpatient R [facility] [id number] Univers 10:40:00 10:40:00 ADINA [facility] 2021-07-28 2021-07-28 Orders Doctor DOMINGO 1.2.840.114 [id number] Univers 00:00:00 00:00:00 Only Unassigned, LUDIN 350.1.13.10 ity of [place] [facility] 4.2.7.2.686 Jesus as [id number] [address] 2021-07-27 2021-07-27 Patient Ofe [facility] 1.2.840.114 [id number] Univers 00:00:00 00:00:00 Secure [facility] 350.1.13.10 ity of [place] [facility] 4.2.7.2.686 Jesus as SAMSON?BLEA [phone] Or dical KNEY [address] [facility] OFFICE [facility] 2021-07-20 2021-07-20 Orders Doctor DOMINGO 1.2.840.114 [id number] Univers 00:00:00 00:00:00 Only Unassigned, LUDIN 350.1.13.10 ity of [place] [facility] 4.2.7.2.[phone] [facility] [address] 2021-07-16 2021-07-16 Telephone Jr [facility] 1.2.451.149 [id number] Univers 00:00:00 00:00:00 Manisha A PRIMARY 350.1.13.10 it y of [place] 4[place]2.7.2.[place] [phone] Or dical [address] 2021-07-13 2021-07-13 Telephone Jr [facility] 1.2.080.406 [id number] Univers 00:00:00 00:00:00 Manisha A PRIMARY 350.1.13.10 it y of [place] 4.2.7.2.686 [place] [id number] Or dical [address] 2021-07-06 2021-07-06 [facility] 1.2.840.114 [id number] Univers 12:14:46 23:59:00 Encounter Manisha A PRIMARY 350.1.13.10 ity of [place] 4.2.7.2.[place] [id number] Or dical [address] 2021-07-06 2021-07-06 Manager Business Intelligence Pcp-Lab [facility] 1.2.840.114 [id number] Univers 13:45:00 14:00:00 Visit Manisha Norris PRIMARY 350.1.13.10 ity of [place] 4[place]2.[place].2.[place] [phone] [facility] [address] 2021-07-06 2021-07-06 Outpatient R JR [facility] [id number] Univers 11:15:00 12:04:47 MANISHA levin [facility] 2021-07-06 2021-07-06 Outpatient R JR [facility] [id number] Univers 11:15:00 12:04:47 MANISHA levin [facility] 2021-07-06 2021-07-06 Office [facility] 1.2.840.114 [id number] Univers 11:15:00 12:04:47 Visit Manisha Hale PRIMARY 350.1.13.10 it y of [place] 4[place]2.[place].2.686 [place] LENNIE [phone] Or dicnh [address] 2021-07-06 2021-07-06 Outpatient Tere NORRIS [facility] [id number] Univers 11:15:00 11:15:00 MANISHA mannymckenna [facility] 2021-06-29 2021-06-29 Orders Doctor DOMINGO 1.2.840.114 [id number] Univers 00:00:00 00:00:00 Only Unassigned, LUDIN 350.1.13.10 ity of [place] [facility] 4.2.7.2.686 Jesus as [phone] [address] 2021-06-17 2021-06-17 [place] [facility] 1.2.840.114 [id number] Univers 00:00:00 00:00:00 [facility] 350.1.13.10 it y of [place] GUN[place] 4.2.7.2.686 Jesus as SAMSON?BLEA [phone] [address] MEDICAL OFFICE BUILDING 2021-06-17 2021-06-17 Orders Doctor DOMINGO 1.2.840.114 [id number] Univers 00:00:00 00:00:00 Only Unassigned, LUDIN 350.1.13.10 ity of [place] [facility] 4.2.7.2.686 Jesus as [id number] [address] 2021-06-09 2021-06-09 [facility] [id number] Univers 10:20:41 23:59:00 MANISHA poonam [facility] 2021-06-09 2021-06-09 Outpatient Tere [facility] [id number] Univers 10:20:41 23:59:00 MANISHA levin [facility] 2021-06-09 2021-06-09 Outpatient Tere [facility] [id number] Univers 10:20:41 23:59:00 MANISHA levin [facility] 2021-06-09 2021-06-09 Outpatient Tere [facility] [id number] Univers 10:20:41 23:59:00 MANISHA levin [facility] 2021-06-09 2021-06-09 Jose J Norris DEMB 1.2.840.114 [id number] Univers 10:20:41 23:59:00 Encounter Manisha Hale HEALTH 350.1.13.10 ity of [place] 4.2.7.2.686 Jesus as SAMSON?BLEA [phone] Or keaton SMITH [address] MEDICAL OFFICE [facility] 2021-06-09 2021-06-09 [facility] 1.2.840.114 [id number] Univers 10:20:27 23:59:00 Encounter Manisha Hale HEALTH 350.1.13.10 ity of [place] 4.2.7.2.686 Jesus as SAMSON?BLEA [phone] Or keaton SMITH [address] [facility] OFFICE [facility] 2021-06-09 2021-06-09 Outpatient Tere [facility] [id number] Univers 12:00:00 12:00:00 MANISHA levin [facility] 2021-06-09 2021-06-09 Manager Business Intelligence Lab, [facility] 1.2.840.1 14 [id number] Univers 10:20:19 10:35:19 Visit Franko [facility] 350.1.13 .10 ity of [place] 4.2.7.2.686 Jesus as SAMSON?BLEA [phone] Or keaton SMITH [address] [facility] OFFICE [facility] 2021-06-09 2021-06-09 Office Ofe [facility] 1.2.840.114 [id number] Univers 09:52:48 10:07:48 Visit Franko [facility] 350.1.13.10 it y of [place] 4.2.7.2.686 Jesus as SAMSON?BLEA [phone] Or keaton SMITH [address] MEDICAL OFFICE [facility] 2021-06-09 2021-06-09 Outpatient Tere THAKUR [facility] [id number] Univers 10:00:00 10:00:00 FRAKNO levin [facility] 2021-06-08 2021-06-08 Outpatient Tere NORRIS [facility] [id number] Univers 10:45:00 11:40:22 MANISHA levin [facility] 2021-06-08 2021-06-08 [facility] [id number] Univers 10:45:00 11:40:22 MANISHA levin [facility] 2021-06-08 2021-06-08 Office [facility] 1.2.840.114 [id number] Univers 10:30:31 11:40:22 Visit Manisha Hale MARTINA 350.1.13.10 it y of [place] 4[place]2.[place].2.686 [place] [phone] [facility] [address] [place] [address] 2021-06-08 2021-06-08 Outpatient Tere [facility] [id number] Univers 10:45:00 10:45:00 MANISHA poonam [facility] 2021-06-08 2021-06-08 Telephone [facility] 1.2.840.114 [id number] Univers 00:00:00 00:00:00 [facility] 350.1.13.10 it y of [place] 4.2.7.2.686 Jesus as SAMSON?BLEA [phone] [address] MEDICAL OFFICE [facility] 2021-06-08 2021-06-08 Orders Doctor DOMINGO 1.2.840.114 [id number] Univers 00:00:00 00:00:00 Only Unassigned, LUDIN 350.1.13.10 ity of [place] [facility] 4.2.7.2.[id number] [facility] [address] 2021-06-07 2021-06-07 Outpatient eTre THAKUR [facility] [id number] Univers 08:45:00 08:45:00 FRANKO levin [facility] 2021-05-25 2021-05-25 [facility] 1.2.840.114 [id number] Univers 14:30:47 23:59:00 Encounter Rosales GUNTER 350.1.13.10 ity of [place].2.7.2.[place] BELL[address] [phone] [facility] [address] 2021-05-25 2021-05-25 [facility] [id number] Univers 14:29:53 14:29:53 ROSALES levin [facility] 2021-05-252021-05-25 Hospital [facility] 1.2.840.114 [id number] Univers 14:29:53 14:29:53 Encounter Rosales LYRIC 350.1.13.10 ity of [facility] 4.2.7.2.[place] [address] [id number] [facility] [address] 2021-05-25 2021-05-25 Case [facility] 1.2.892.569 [id number] Univers 00:00:00 00:00:00 Management Rosales GUNTER 350.1.13.10 ity of [facility] 4.2.7.2.[place] [phone] Or dical NAL 134 [facility] 2021-05-21 2021-05-21 Outpatient R [facility] [id number] Univers 11:30:00 11:30:00 ity of [facility] 2021-05-21 2021-05-21 Outpatient R [facility] [id number] Univers 11:30:00 11:30:00 ity of [facility] 2021-05-19 2021-05-19 Telephone [facility] 1.2.840.114 [id number] Univers 00:00:00 00:00:00 [facility] 350.1.13.10 it y of [place] 4.2.7.2.686 Jesus as SAMSON?BLEA [phone] Or dicmakayla NEALEY [address] MEDICAL OFFICE [facility] 2021-05-04 2021-05-04 Telephone Oleg [facility] 1.2.840.114 [id number] Univers 00:00:00 00:00:00 Teresa Gunter 350.1.13.10 it[place] [phone] Or dical nal 145 [facility] 2021-04-28 2021-04-28 Orders Doctor DOMINGO 1.2.840.114 [id number] Univers 00:00:00 00:00:00 Only Unassigned, LUDIN [id number] ity of [place] [facility] 4.2.7.2.[phone] [facility] [address] 2021-04-21 2021-04-21 [facility] 1.2.405.305 [id number] Univers 14:41:37 15:01:37 Visit Leela Gunter [id number] [place] [facility] [phone] [facility] 085 [facility] 2021-04-21 2021-04-21 Outpatient R LEELA BONILLA [facility] [id number] Univers 15:00:00 15:00:00 ALICIA BONILLAVTBehzad [facility] 2021-04-07 2021-04-07 Outpatient R ALICIA BONILLAVTBehzad [facility] [id number] Univers 19:30:00 19:30:00 ADINA [facility] 2021-04-07 2021-04-07 Manager [employer] 1, [facility] Bed [facility] 1. 2.840.114 [id number] Univers 14:08:40 16:38:40 Visit Leela Bonilla 350.1.13. 10 ity [facility] 4.2.7.2.686 [facility] [place] [phone] [facility] [address] 2021-04-06 2021-04-06 Outpatient R ARAM [facility] [id number] Univers 13:30:00 14:54:02 [facility] 2021-04-06 2021-04-06 Office Aram [facility] 1.2.840.114 [id number] Univers 13:15:14 13:45:14 Visit Rosales Jiménez 350.1.13.10 [place] [facility] [phone] [facility] [address] 2021-04-06 2021-04-06 Outpatient R ARAM [facility] [id number] Univers 13:30:00 13:30:00 [facility] 2021-04-05 2021-04-05 Laboratory Only, [facility] Test [facility] 1.2.840. 114 [id number] Univers 10:13:44 10:28:44 Only Anderson Hilton Lyric [id number] [place] [phone] [address] 2021-04-05 2021-04-05 Laboratory Only, Adc Test [facility] 1.2.840. 114 [id number] Univers 10:13:44 10:28:44 Only Anderson [employer] [id number] [place] 4[place]2.[place] [phone] [address] 2021-04-05 2021-04-05 Outpatient R [facility] [id number] Univers 10:15:00 10:15:00 ity of [facility] 2021-04-05 2021-04-[address] 1.2.840.114 [id number] Univers 00:00:00 00:00:00 Only Unassigned, LUDIN [id number] ity of [facility] [id number] Jesus as [phone] [address] 2021-04-05 2021-04-[address] 1.2.840.114 [id number] Univers 00:00:00 00:00:00 Only Unassigned, LUDIN [id number] ity of [facility] [id number] Jesus as [phone] [address] 2021-03-24 2021-03-24 Telephone [facility] 1.2.840.114 [id number] Univers 00:00:00 00:00:00 [facility] [id number] it y of [place] [id number] Jesus as Samson?Blea [phone] [facility] [address] 2021-03-24 2021-03-24 Telephone [facility] 1.2.840.114 [id number] Univers 00:00:00 00:00:00 [facility] [id number] it y of [place] [id number] Jesus as Samson?Blea [phone] Or dical [address] Medical Office Building 2021-03-23 2021-03-23 [facility] 1.2.840.114 [id number] Univers 00:00:00 00:00:00 [facility] [id number] it y of [place] [id number] Jesus as Samson?Blea [phone] [address] Office [facility] 2021-03-10 2021-03-10 [facility] [id number] Univers 14:29:05 14:49:05 Visit [facility] Florencio [place] [id number] ity [id number] [phone] [address] 2021-03-10 2021-03-10 [facility] [id number] Univers 14:29:05 14:49:05 Visit [facility] Florencio [place] [id number] ity of [id number] [phone] [address] 2021-03-10 2021-03-10 Outpatient R LEELA BONILLA [facility] [id number] Univers 14:40:00 14:40:00 [facility] 2021-03-10 2021-03-10 Patient Gavin [facility] 1.2.840.114 [id number] Univers 00:00:00 00:00:00 Secure [facility] [id number] ity of [place] [id number] Jesus as Samson?Blea [phone] [facility] selvin [address] [facility] Office [facility] 2021-03-09 2021-03-09 Outpatient R OFE [facility] [id number] Univers 10:00:00 10:00:00 FRANKO levin [facility] 2021-03-09 2021-03-09 Office [facility] 1.2.840.114 [id number] Univers 09:32:44 09:47:44 [facility] [id number] it y of [place] [id number] Jesus as Samson?Blea [phone] [facility] [address] [facility] [address] 2021-03-05 2021-03-05 Patient [place], [facility] 1.2.840.114 [id number] Univers 00:00:00 00:00:00 Secure Mskatiana GlassOn license of [facility] [id number] ity of [place] 4.2.7.2.686 Jesus as Samson?Blea [phone] [facility] [address] [facility] 2021-03-04 2021-03-04 Outpatient R LEELA BONILLA [facility] [id number] Univers 19:30:00 19:30:00 LEELA BONILLA ity of [facility] 2021-03-04 2021-03-04 Manager Business Intelligence 1, [facility] Bed [facility] 1. 2.840.114 [id number] Univers 15:12:29 17:42:29 Visit Leela Bonilla 350.1.13. 10 ity of [place] 4.2.7.2.686 [facility] [phone] [facility] [address] 2021-03-04 2021-03-04 Orders Doctor DOMINGO 1.2.840.114 [id number] Univers 00:00:00 00:00:00 Only Unassigned, LUDIN [id number] ity of [facility] 4.2.7.2.[phone] [facility] [address] 2021-03-02 2021-03-02 Laboratory Only, Adc Test [facility] 1.2.840. 114 [id number] Univers 14:35:01 14:50:01 Only Anderson Hilton [id number] ity of [id number] [phone] [facility] [address] 2021-03-02 2021-03-02 Outpatient R [facility] [id number] Univers 14:30:00 14:30:00 ity of [facility] 2021 2021 Manager Business Intelligence Mary, Adc Lab Main [facility] 1.2.8 40.114 [id number] Univers 12:29:22 12:44:22 Visit Guerita [place] [id number] ity of [id number] [phone] Or dical nal 353 [facility] 2021 2021 Office Gavin [facility] 1.2.840.114 [id number] Univers 10:58:32 12:05:09 Visit Guerita [place] [id number] i [place] of [id number] [phone] Or dical nal 220 [facility] 2021 2021 Office Gavin [facility] 1.2.840.114 [id number] Univers 10:58:32 12:05:09 [facility] [id number] i ty of [id number] [phone] Or dical nal 220 [facility] 2021 2021 Outpatient R GAVIN [facility] [id number] Univers 10:30:00 12:05:09 [facility] ity [facility] 2021 2021 Outpatient R GAVIN [facility] [id number] Univers 10:30:00 10:30:00 [facility] [address] 1.2.840.114 [id number] Univers 00:00:00 00:00:00 Only Unassigned, LUDIN [id number] ity of [facility] [id number] Jesus as [phone] [address] 2021-02-03 2021-02-03 Office Adina [facility] 1.2.378.885 [id number] Univers 08:57:54 09:17:54 Visit Leela [place] [id number] ity of [id number] [phone] Or dical nal 085 [facility] 2021-02-03 2021-02-03 Outpatient R LEELA BONILLA [facility] [id number] Univers 09:00:00 09:00:00 TJRISHABHLEELA FLORES ity [facility] 2021-02-02 2021-02-02 Office Deanrodriguez [facility] 1.2.840.114 [id number] Univers 09:10:37 09:40:37 [facility] [id number] it y of [facility] [id number] Jesus as Professio [phone] Or dical nal [address] 2021-02-02 2021-02-02 Outpatient R OFE [facility] [id number] Univers 09:30:00 09:30:00 FRANKO y [facility] 2021-02-02 2021-02-02 Orders Doctor DOMINGO 1.2.840.114 [id number] Univers 00:00:00 00:00:00 Only Unassigned, FALMOUTH [id number] ity of [place] [facility] 4.2.7.2.686 Jesus as [phone] [address] 2021-02-01 2021-02-01 Outpatient Tere THAKUR [facility] [id number] Univers 13:30:00 13:30:00 FRANKO [facility] 2020-07-01 2020-07-01 Outpatient KUSH ITALO [facility] [id number] [facility] 06:05:00 16:15:00 [place] 2020-05-28 2020-05-28 Outpatient 3 Andry Dinero [facility] [id number] Medical 12:12:00 12:12:00 Andry Dinero [facility] 2020-05-28 2020-05-28 Outpatient 3 Andry Dinero [facility] [id number] Medical 12:12:00 12:12:00 Andry Dinero 1111 [facility] Results Test Description Test Time Test Comments Results Result Comments Source IR Thyroid Biopsy 2020-05-28 15:04:14 [facility] 1965 Sex: F *Patient: [...] 3:04 pm IR Thyroid Biopsy 2020-05-28 15:04:14 [facility] : 1965 Sex: F *Patient: [...] t he patient is critically ill. POC [id number] 12:21:41 Test Item Value Reference Range Interpretation Comments Glucose POC (test 105 mg/dL 74-106 POC Glucos e used on code = Glucose POC) critical ly ill patients is considered " off-label use" and has no t been cleared or appr jeannette by the FDA. Altern ative testing methods should be considered i f the patient is crit ically ill. Prothrombin Time and [id number] 11:11:55 Test Item Value Reference Range Interpretation Comments Prothrombin Time (test code = 10.8 seconds 9.0-12.0 Prothrombin Time) INR (test code = INR) 1.0 ratio 0.9-1.2 Partial Thromboplastin [id number] 11:11:55 Test Item Value Reference Range Interpretation Comments Partial Thromboplastin Time 27.8 seconds 24.0-35.0 (test code = Partial Thromboplastin Time) IG [id number] 10:58:55 Test Item Value Reference Range Interpretation Comments IG (test code = IG) 0 % 0-5 IG Abs (test code = IG Abs) 0 x10 N Complete Blood Count with [id number] 10:58:54 Test Item Value Reference Range Interpretation [...] = Slide Review) GL_SET_SLIDE _REVIEW_A UTO Automated [id number] 10:58:54 Test Item Value Reference Range Interpretation Comments Neutro Auto (test code = Neutro Auto) 60.9 % N Lymph Auto (test code = Lymph Auto) 27.7 % N Brooke Auto (test code = Brooke Auto) 8.5 % N Eos, Auto (test code = Eos, Auto) 1.8 % N Basophil Auto (test code = Basophil 0.9 % N Auto) Neutro Absolute (test code = Neutro 2.7 x10 2.7-7.3 Absolute) Lymph Absolute (test code = Lymph 1.2 x10 0.8-3.5 Absolute) Brooke Absolute (test code = Brooke 0.4 x10 0.3-0.9 Absolute) Eos Absolute (test code = Eos 0.1 x10 0.0-0.3 Absolute) Baso Absolute (test code = Baso 0.0 x10 0.0-0.1 Absolute)
[2022-07-07] MEDS ORDERED: FAMOTIDINE 20 MG TAB ONE (04:57)
[2022-07-07] MEDS ORDERED: MAGNES/ALUMIN/SIMET 30ML UCUP ONE (04:57)
[2022-07-07] MEDS ORDERED: LIDOCAINE VISCOUS 2% SOLN 15 ML UDC ONE (04:57)
[2022-07-07 05:10] LABS: Absolute Lymphocytes (CBC) 2.4 K/uL (0.7-4.9); Hematocrit 35.6 % (36.0-45.0); Lymphocytes % 36.7 % (15.3-44.8); MPV 8.4 fL (7.6-11.3); RBC Red Blood Cell Count 4.05 M/uL (3.86-4.86)
[2022-07-07 05:58] LABS: Albumin 3.7 g/dL (3.4-5.0); Bilirubin Total 0.3 mg/dL (0.2-1.0); Magnesium 2.1 mg/dL (1.6-2.4); Potassium 3.8 mmol/L (3.5-5.1)
--- NOTE | 2022-07-07 06:59 | ER ---
Nurse's Notes [facility] [employer] [place] Name: Lashon Baca Age: 57 yrs Sex: Female : 1965 Arrival Date: 07/07/2022 Time: 04:43 Bed 5 Private MD: Diagnosis: Epigastric pain;Chest pain, unspecified;Elevated lipase Presentation: 07/07 04:45 Chief complaint: EMS states: around 0345 this morning she was woken up by 9/10 chest kd3 pain that goes from the center of her sternum down to the epigastric region. We gave 325 of aspirin in route, vitals are stable, finger stick was in the 120's. Coronavirus screen:. Ebola Screen: No symptoms or risks identified at this time. 04:45 Initial Sepsis Screen: Does the patient meet any 2 criteria? No. Patient's initial kd3 sepsis screen is negative. Does the patient have a suspected source of infection? No. Patient's initial sepsis screen is negative. Risk Assessment: Do you want to hurt yourself or someone else? Patient reports no desire to harm self or others. 04:45 Acuity: KENNETH 3 kd3 04:49 Method Of Arrival: EMS: [facility] kd3 04:53 Onset of symptoms was July 07, 2022 at 03:45. as6 Historical: - Allergies: 04:53 Cymbalta (rash); as6 04:53 Savella (rash); as6 04:53 tramadol (Itching); as6 - PMHx: 04:53 Bipolar disorder; Diabetes - NIDDM; Diabetes Mellitus Type 2; Fibromyalgia; Silas's as6 disease; Kidney stone; Rheumatoid Arthritis; Sleep Apnea; - PSHx: 04:53 section; Cholecystectomy; hysterectomy; L knee; L side of thyroid removed as6 (Cancerous lumps); R hip replacement; - Immunization history:: Client reports receiving the 2nd dose of the Covid vaccine, moderna Flu vaccine is up to date. - Social history:: Smoking status: Patient/guardian denies using tobacco. Screenin:51 Abuse screen: Denies threats or abuse. Denies injuries from another. kd3 04:54 Nutritional screening: No deficits noted. Tuberculosis screening: No symptoms or risk as6 factors identified. 05:56 [facility] ED Fall Risk Assessment (Adult) History of falling in the last 3 months, kd3 including since admission No falls in past 3 months (0 pts) Confusion or Disorientation No (0 pts) Intoxicated or Sedated No (0 pts) Impaired Gait No (0 pts) Mobility Assist Device Used No (0 pt) Altered Elimination No (0 pt) Score/Fall Risk Level 0 - 2 = Low Risk. Assessment: 04:51 General: Appears uncomfortable, Behavior is calm, cooperative. Pain: Complains of pain kd3 in diaphragm Pain radiates to epigastric area Pain began suddenly. Cardiovascular: Patient's skin is warm and dry. Rhythm is sinus rhythm. Respiratory: Airway is patent Trachea midline Respiratory effort is even, unlabored, Respiratory pattern is regular, symmetrical. GI: Abdomen is non-distended. 05:56 General: "I'm feeling much better. I'm ready to go" . as6 Vital Signs: 04:51 BP 102 / 65; Pulse 82; Resp 18 S; Temp 97.6(O); Pulse Ox 95% on R/A; Weight 92.53 kg as6 (R); Height 5 ft. 5 in. (165.10 cm) (R); Pain 8/10; 05:20 BP 99 / 65; Pulse 82; Pulse Ox 95% on R/A; kd3 05:56 BP 101 / 64; Pulse 81; Resp 19; Pulse Ox 98% on R/A; kd3 06:58 BP 102 / 66; Pulse 73; Resp 19 S; Pulse Ox 95% on R/A; as6 04:51 Body Mass Index 33.95 (92.53 kg, 165.10 cm) as6 ED Course: 04:43 Patient arrived in ED. wm 04:44 Jelena Simon MD is Attending Physician. sd2 04:49 Nery Chu RN is Primary Nurse. kd3 04:51 Triage completed. kd3 04:52 Arm band placed on. as6 04:52 Maintain EMS IV. Dressing intact. Good blood return noted. Site clean \\T\\ dry. Gauge \\T\\ as 6 site: 20g RAC. 04:52 No provider procedures requiring assistance completed. Maintain EMS IV. Dressing kd3 intact. Good blood return noted. Site clean \\T\\ dry. Gauge \\T\\ site: 20 g right A/C. 04:53 Magnesium Sent. kd3 04:53 CMP Sent. kd3 04:53 CBC with Diff Sent. kd3 04:53 Troponin High Sensitivity Sent. kd3 04:53 BNP Sent. kd3 04:54 Placed in gown. Bed in low position. Call light in reach. Side rails up X2. Client as6 placed on continuous cardiac and pulse oximetry monitoring. NIBP monitoring applied. Warm blanket given. 05:00 XRAY Chest (1 view) In Process Unspecified. EDMS 05:32 Lab(s) recollected, by me, sent to lab. 05:56 Patient maintains SpO2 saturation greater than 95% on room air. kd3 06:29 CT Abd/Pelvis - IV Contrast Only In Process Unspecified. EDMS 07:11 IV discontinued, intact, bleeding controlled, No redness/swelling at site. Pressure kc6 dressing applied. Administered Medications: 04:59 Not Given (Patient Refused): GI Cocktail without - (Maalox Suspension 30 ml, kd3 Lidocaine Liquid 2 % 15 ml) PO once 04:59 Drug: Pepcid (famotidine) 20 mg Route: PO; kd3 06:59 Follow up: Response: No adverse reaction as6 Medication: 05:56 VIS not applicable for this client. kd3 Outcome: 06:58 Discharge ordered by . sd2 07:10 Condition: stable kc6 07:10 Discharge instructions given to patient, family, Instructed on discharge instructions, follow up and referral plans. medication usage, Demonstrated understanding of instructions, follow-up care, medications, Prescriptions given X 2. 07:11 Discharged to home ambulatory, with significant other. kc6 07:19 Patient left the ED. kc6 Signatures: Dispatcher [employer] EDMS Kanika Portillo Salbador Cottrell RN RN as6 Nery Chu RN RN kd3 Jelena Simon MD MD sd2 Brooke Ramírez RN RN kc6 Corrections: (The following items were deleted from the chart) 05:05 04:53 LIPASE+C.LAB.BRZ drawn and sent. kd3 EDMS
--- NOTE | 2022-07-07 06:59 | EDPHYS ---
Physician Documentation [facility] Name: Lashon Baca Age: 57 yrs Sex: Female : 1965 Arrival Date: 07/07/2022 Time: 04:43 Bed 5 Private MD: ED Physician Jelena Simon HPI: 07/07 04:44 This 57 yrs old Female presents to ER via Unassigned with complaints of Chest sd2 Pain > 30 y/o. 04:44 57 yo F presents with CC of chest pain. Reports pain started around 3:45 AM waking her sd2 up out of her sleep with associated nausea and episodes of sweating. Denies fever, vomiting or diaphoresis. 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 Pt does have a history of reflux that she takes Pepcid for at home. When asked the location of her pain, she points to her epigastrum and states this feels similar to when she had a gallbladder issue but her gallbladder has since been removed. . Historical: - Allergies: 04:53 Cymbalta (rash); as6 04:53 Savella (rash); as6 04:53 tramadol (Itching); as6 - PMHx: 04:53 Bipolar disorder; Diabetes - NIDDM; Diabetes Mellitus Type 2; Fibromyalgia; Silas's as6 disease; Kidney stone; Rheumatoid Arthritis; Sleep Apnea; - PSHx: 04:53 section; Cholecystectomy; hysterectomy; L knee; L side of thyroid removed as6 (Cancerous lumps); R hip replacement; - Immunization history:: Client reports receiving the 2nd dose of the Covid vaccine, moderna Flu vaccine is up to date. - Social history:: Smoking status: Patient/guardian denies using tobacco. ROS: 04:44 Constitutional: Negative for fever, chills, and weight loss, Eyes: Negative for injury, sd2 pain, redness, and discharge, Cardiovascular: Positive for chest pain, Negative for palpitations, and edema, Respiratory: Negative for shortness of breath, cough, wheezing. Abdomen/GI: Positive for abdominal pain, nausea, Negative for vomiting, diarrhea. MS/Extremity: Negative for injury and deformity, Skin: Negative for injury, rash, and discoloration, Neuro: Negative for headache, numbness and tingling. Exam: 04:44 Constitutional: This is a well developed, well nourished patient who is awake, alert, sd2 and in no acute distress. Head/Face: Normocephalic, atraumatic. Eyes: EOMI, normal conjunctiva bilaterally Chest/axilla: Normal chest wall appearance and motion. Nontender with no deformity. Cardiovascular: Regular rate and rhythm with a normal S1 and S2. No gallops, murmurs, or rubs. 2+ distal pulses. Respiratory: Lungs have equal breath sounds bilaterally, clear to auscultation and percussion. No rales, rhonchi or wheezes noted. No increased work of breathing, no retractions or nasal flaring. Abdomen/GI: Soft, mild epigastric TTP, with normal bowel sounds. No guarding or rebound. Skin: Warm, dry with normal turgor. Normal color with no rashes, no lesions, and no evidence of cellulitis. MS/ Extremity: Pulses equal, no cyanosis. Neurovascular intact. Full, normal range of motion. Ambulatory without difficulty. Psych: Awake, alert, with orientation to person, place and time. Behavior, mood, and affect are within normal limits. 04:44 ECG was reviewed by the Attending Physician. NSR, rate 85, no STEMI criteria, TWI in III and V3 Vital Signs: 04:51 BP 102 / 65; Pulse 82; Resp 18 S; Temp 97.6(O); Pulse Ox 95% on R/A; Weight 92.53 kg as6 (R); Height 5 ft. 5 in. (165.10 cm) (R); Pain 8/10; 05:20 BP 99 / 65; Pulse 82; Pulse Ox 95% on R/A; kd3 05:56 BP 101 / 64; Pulse 81; Resp 19; Pulse Ox 98% on R/A; kd3 06:58 BP 102 / 66; Pulse 73; Resp 19 S; Pulse Ox 95% on R/A; as6 04:51 Body Mass Index 33.95 (92.53 kg, 165.10 cm) as6 MDM: 04:44 Patient medically screened. sd2 04:48 Differential diagnosis: Differential diagnosis includes but is not limited to: ACS, sd2 DVT/PE, pneumothorax, dissection, musculoskeletal, anxiety, anemia, electrolyte abnormality, pneumonia, CHF, COPD among others. Data reviewed: vital signs, nurses notes, EMS record. 06:55 Data reviewed: lab test result(s), EKG, radiologic studies. Counseling: I had a sd2 detailed discussion with the patient and/or guardian regarding: the historical points, exam findings, and any diagnostic results supporting the discharge/admit diagnosis, lab results, radiology results, the need for outpatient follow up, to return to the emergency department if symptoms worsen or persist or if there are any questions or concerns that arise at home. ED course: Labs and imaging reviewed. Elevated lipase noted with no CT findings of pancreatitis. However, pt did have epigastric pain although now improved and nausea consistent with possible pancreas inflammation. Recommended clear liquid diet, pain and nausea control for 48 hours and recheck of levels with PCP. Pt also scheduled at 8AM to follow up with [facility]. Pt comfortable with plan for discharge and outpatient follow up. verbalizes understanding of discharge plan and strict return precautions. . 07/07 04:44 Order name: CBC with Diff; Complete Time: 05:39 sd2 07/07 04:44 Order name: CMP; Complete Time: 05:59 sd2 07/07 04:44 Order name: Magnesium; Complete Time: 05:59 sd2 07/07 04:44 Order name: Troponin High Sensitivity; Complete Time: 05:59 sd2 07/07 04:44 Order name: BNP; Complete Time: 05:59 sd2 07/07 04:44 Order name: EKG - Nurse/Tech; Complete Time: 04:53 sd2 07/07 04:44 Order name: XRAY Chest (1 view) sd2 07/07 05:05 Order name: Lipase; Complete Time: 05:59 EDMS 07/07 06:02 Order name: CT Abd/Pelvis - IV Contrast Only sd2 Administered Medications: 04:59 Not Given (Patient Refused): GI Cocktail without - (Maalox Suspension 30 ml, kd3 Lidocaine Liquid 2 % 15 ml) PO once 04:59 Drug: Pepcid (famotidine) 20 mg Route: PO; kd3 06:59 Follow up: Response: No adverse reaction as6 Disposition Summary: 07/07/22 06:58 Discharge Ordered Location: Home sd2 Problem: new sd2 Symptoms: have improved sd2 Condition: Stable sd2 Diagnosis - Epigastric pain sd2 - Chest pain, unspecified sd2 - Elevated lipase sd2 Followup: sd2 - With: Private Physician - When: 2 - 3 days - Reason: Recheck today's complaints, Continuance of care, Re-evaluation by your physician Discharge Instructions: - Discharge Summary Sheet sd2 - Nonspecific Chest Pain, Adult sd2 - Clear Liquid Diet, Adult sd2 - Acute Pancreatitis sd2 - Pancreatitis Eating Plan sd2 Forms: - Medication Reconciliation Form sd2 - Thank You Letter sd2 - Antibiotic Education sd2 - Prescription Opioid Use sd2 Prescriptions: - Zofran 4 mg Oral Tablet - take 1 tablet by ORAL route every 6 hours As needed; 15 tablet; Refills: 0, sd2 Product Selection Permitted - Tylenol-Codeine #3 300 mg-30 mg Oral - take 1 tablet by ORAL route every 6 hours As needed; 15 tablet; Refills: 0, sd2 Product Selection Permitted Signatures: Dispatcher [employer] Salbador Gibson RN RN as6 Nery Chu RN RN kd3 Jelena Simon MD MD sd2 Corrections: (The following items were deleted from the chart) 05:05 04:48 LIPASE+C.LAB.BRZ ordered. EDSC EDMS
[2022-07-07 07:23] VITALS: TEMP 97.6
[2022-07-07 07:27] VITALS: BP 102/66; O2SAT 95
--- NOTE | 2022-07-07 11:06 | RAD REPORT ---
EXAM DESCRIPTION: CT ABDOMEN PELVIS WITH IV CONTRAST CLINICAL HISTORY: Elevated lipase COMPARISON: None. 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 FINDINGS: Lower lungs are clear. Abdomen: Liver is mildly fatty in attenuation. There is no biliary dilatation. Cholecystectomy was pe rformed. Pancreas is relatively unremarkable with scattered areas of fatty infiltration. Spleen is no rmal in size. There is no pancreatic ductal dilatation. There are no peripancreatic collections. The adrenal glands and kidneys are unremarkable. Abdominal aorta is normal in course and caliber without aneurysm. There is no free air. There is no r etroperitoneal adenopathy. Pelvis: There is no bowel obstruction. Urinary bladder is unremarkable. There is no free fluid. Hyste rectomy was performed. Appendix is normal. Skeleton: There are no acute osseous findings. No suspicious bony lesions. Right hip arthroplasty was performed. IMPRESSION: No CT evidence for pancreatitis. Electronically signed by: Nader Pace MD 07/07/2022 6:49 AM VARSITY BASEBALL COACH Due to temporary technical issues with the PACS/Fluency reporting system, reports are being signed by the in house radiologists without review as a courtesy to insure prompt reporting. The interpreting radiologist is fully responsible for the content of the report.
--- NOTE | 2022-07-07 12:40 | RAD REPORT ---
EXAM DESCRIPTION: XR CHEST 1 VIEW 07/07/2022 4:[address] MENDER CLINICAL HISTORY: CHEST PAIN COMPARISON: 02/02/2022. TECHNIQUE: XR CHEST 1 VIEW 07/07/2022 4:[address] MENDER FINDINGS: The heart is mildly enlarged. Lungs are clear without consolidation, atelectasis, mass or edema. There is no pleural effusion. There is no pneumothorax. There are no acute osseous findings. IMPRESSION: Clear lungs. Electronically signed by: Nader Pace MD 07/07/2022 5:[address] MENDER Due to temporary technical issues with the PACS/Fluency reporting system, reports are being signed by the in house radiologists without review as a courtesy to insure prompt reporting. The interpreting radiologist is fully responsible for the content of the report.
--- NOTE | 2022-07-09 17:29 | EKG ---
Test Date: 2022-07-07 Test Time: 04:45:07 Television Station Manager: LAWRENCE MEASUREMENT RESULTS: Intervals: Rate: 85 RI: 184 QRSD: 76 QT: 370 QTc: 440 [place]: P: 38 RI: 184 QRS: 11 T: 20 INTERPRETIVE STATEMENTS: Normal sinus rhythm Nonspecific T wave abnormality Abnormal ECG Compared to ECG 06/15/2022 14:45:46 T-wave abnormality now present Sinus bradycardia no longer present Electronically Signed On 07-09-22 17:25:34 MICROSTRATEGY ARCHITECT DEVELOPER by Romulo Fisher
== END 2022-07-07 07:19 | disposition home or self-care (01) ==
LOC: ER 04:39
DX: R07.89 Other chest pain (principal); R10.13 Epigastric pain; R79.89 Other specified abnormal findings of blood chemistry; Z88.5 Allergy status to narcotic agent; Z88.8 Allergy status to other drugs, medicaments and biological substances
CPT/HCPCS: 93005; 85025; 36415; 83735; 84484; 83690; 80053; 83880; 74177; 71045; 99285; Q9967

== ENCOUNTER 2023-05-24 12:05 | Emergency (ER) | payer OTHER ==
--- OUTSIDE RECORDS SUMMARY | 2023-05-24 12:23 | XMS REPORT | Continuity of Care Document ---
:1965 Author Organization [facility] t Address [address] [place] [address] [place] [id number] Care Team Providers Name Role Phone Janel Snow MD Primary Care Physician Franko Thakur Attending Clinician Unavailable Corwin Claros Attending Clinician Unavailable Corwin Claros Attending Clinician Unavailable RIVKA SILVA Attending Clinician Unavailable RIVKA SILVA Attending Clinician Unavailable MANISHA NORRIS Attending Clinician Unavailable MANISHA NORRIS Attending Clinician Unavailable JANEL SNOW Attending Clinician Unavailable FRANKO THAKUR Attending Clinician Unavailable Julius Merino DOanand Draper Attending Clinician Janel Snow MD Attending Clinician [phone] Pcp-Lab Attending Clinician Unavailable MANISHA NORRIS Attending Clinician Unavailable Doctor Unassigned, [place] Attending Clinician Unavailable SHALINI ALLEN Attending Clinician Unavailable Franko Thakur MD Attending Clinician Rosales Chiu PA-C Attending Clinician ROSALES CHIU Attending Clinician Unavailable Lab, Ang - Db Attending Clinician Unavailable Umberto Saul MD Attending Clinician BABITA SALDANA Attending Clinician Unavailable BABITA SALDANA Attending Clinician Unavailable Jeane Pruett Attending Clinician LICO WHITE Attending Clinician Unavailable LICO WHITE Attending Clinician Unavailable SUNIL NAQVI Attending Clinician Unavailable Leela Bonilla MD Attending Clinician Guerita Alonso MD Attending Clinician Dixie Bhardwaj Attending Clinician DIXIE ALANIS Attending Clinician Unavailable Kasandra Portillo RN Attending Clinician Unavailable UMBERTO SAUL Attending Clinician Unavailable Dinh Phillips CRNA Attending Clinician Heriberto Vyas MD Attending Clinician [phone] Only, [facility] Test Attending Clinician Unavailable Pob, Adc Lab Main Attending Clinician Unavailable Donna Lowry PT Attending Clinician Unavailable Buddy Mujica MD Attending Clinician BUDDY MUJICA Attending Clinician Unavailable Faith Hall MA Attending Clinician Unavailable GUERITA ALONSO Attending Clinician Unavailable LEELA BONILLA Attending Clinician Unavailable LEELA BONILLA Attending Clinician Unavailable Oleg GUEVARA, Teresa Attending Clinician Unavailable , [facility] Sleep Lab Bed Attending Clinician Unavailable Anderson Hilton MD Attending Clinician GARLAND CURRIE Attending Clinician Unavailable Andry Dinero Attending Clinician Unavailable Andry Dinero Attending Clinician Unavailable Corwin Claros Admitting Clinician Unavailable MANISHA NORRIS Admitting Clinician Unavailable UMBERTO SAUL Admitting Clinician Unavailable Umberto Saul MD Admitting Clinician BUDDY MUJICA Admitting Clinician Unavailable Payers Payer Name Policy Type Policy Number Effective Date Expiration Date Evelina waldrop [facility] DUAL [id number] 2021 COMP HMO D SNP 00:00:00 MEDICAID [place] [facility] [id number] 2022 00:00:00 Problems Condition Condition Condition Status Onset Resolution Last Treating Co mments Source Name Details Category Date Date Treatment Clinician Date Hip Hip Disease Active Univers osteoarthr osteoarthr 7-18 it y of itis itis 00:00: Medical Branch Obesity Obesity Disease Active Univers (BMI (BMI 7-15 ity of 30-39.9) 30-39.9) 00:00: Medical Branch Primary Primary Disease Active Overview: Univ ers osteoarthr osteoarthr 6-30 Form[place] ity of itis of itis of 00:00: g of this [place] right hip right hip 00 note Medi danish might be Branch different from the original. Added automatic ally from request for surgery [id number] Type 2 Type 2 Disease Active Univers diabetes diabetes 03-18 ity of mellitus mellitus 00:00: [place] without without 00 Medical complicati complicati Br anch on, on, without without long-term long-term current current use of use of insulin insulin Thyroid Thyroid Disease Active Univers nodule nodule 03-18 ity of 00:00: [place] [facility] Dyslipidem Dyslipidem Disease Active U nivers ia ia 02 ity of 00:00: [place] [facility] Carpal [...] Disease Active 2017-07 U nivers ve ve 07-22 ity of rheumatoid rheumatoid [place] arthritis 00 Medi [place]anish of of Branch multiple multiple joints joints Sleep Sleep Disease Active 2017-07 Univers apnea apnea 07-22 ity of 00:00: [place] 00 Medical Branch Vitamin D Vitamin D Disease Active 2017-07 Uni vers deficiency deficiency 07-22 it y of 00:00: [place] [facility] Branch Depressed Depressed Disease Active Uni vers bipolar bipolar 03-04 ity of disorder disorder 00:00: [place] [facility] Branch Fibromyalg Fibromyalg Disease Active U nivers ia ia 03-04 ity of 00:00: [place] [facility] Silas Silas Disease Active Uni 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-04 it y of s, fibrous s, fibrous 00:[place] variant variant [facility] Branch Rheumatoid Rheumatoid Disease Active U nivers arthritis arthritis 03-04 ity of 00:00: [place] 00 Medical Branch Allergies, Adverse Reactions, Alerts Allergy Allergy Status Severity Reaction(s) Onset Inactive Treating Comm ents Source Name Type Date Date Clinician Tramadol Propensi Active Itching Unive rs ty to 6-22 ity of adverse 00:00: [place] reaction 00 [facility] Branch TRAMADOL DRUG Active ITCHING Univers INGREDI 6-22 ity of 00:00: [place] [facility] EDOXABAN DRUG Active High Rash 2020- Univers TOSYLATE INGREDI 7-20 ity of 00:00: [place] 00 Medical Branch DULOXETI DRUG Active Med Rash 2020- Univers NE HCL INGREDI 7-20 ity of 00:00: [place] 00 Medical Branch MILNACIP DRUG Active Med Other-Cmnt Univ ers RAN HCL INGREDI 7-20 ity of 00:00: [place] 00 Medical Branch Duloxeti Drug Active Rash 2020-0 Univers ne Hcl Allergy 7-20 ity of 00:00: [place] 00 Medical Branch Edoxaban Drug Active Rash 2020- Univers Tosylate Allergy 7-20 ity of 00:00: [place] 00 Medical Branch Milnacip Drug Active Other - See Uni vers ran Hcl Allergy comments 7-20 ity of 00:00: [place] 00 Medical Branch lactose DA Active U [facility] 7-18 [facility] 00:00: Regiona 00 l [facility] Center duloxeti DA Active [place] 2017-0 [facility] ne 7-18 Valley 00:00: Region [facility] Drug Active Medical [facility] Drug Active [facility] Drug Active Medical [facility] Drug Active [facility] Drug Active [facility] Drug Active Medical [facility] Social History Social Habit Start Date Stop Date Quantity Comments Source Gender identity Universit y of [facility] Sexual orientation Univer sity of [facility] Branch Alcohol intake 2023-04-04 2023-04-04 Current drinker Unive rsity of 00:00:00 00:00:00 of alcohol [place] Medical (finding) Branch Exposure to 2022-12-29 2023-01-08 Not sure University of SARS-CoV-2 (event) 00:00:00 11:26:00 [place] [facility] History of Social 2022-12-08 2022-12-08 Univers ity of function 00:00:00 00:00:00 [place] [facility] History SDOH 2022-12-06 2022-12-06 2 University o f Alcohol Frequency 00:00:00 00:00:00 [place] M edical Branch History SDOH 2022-12-06 2022-12-06 1 University o f Alcohol Std Drinks 00:00:00 00:00:00 [place] [facility] History SDOH 2022-12-06 2022-12-06 1 University o f Alcohol Binge 00:00:00 00:00:00 [place] [facility] Branch History SDOH Social 2022-12-06 2022-12-06 5 Unive rsity of Connections Phone 00:00:00 00:00:00 [place] M edical Branch History SDOH Social 2022-12-06 2022-12-06 5 Unive rsity of Connections Get 00:00:00 00:00:00 [place] Med ical Together Branch History SDOH Social 2022-12-06 2022-12-06 98 Unive rsity of Connections Holiness 00:00:00 00:00:00 [place] [facility] History SDOH Social 2022-12-06 2022-12-06 1 Unive rsity of Connections 00:00:00 00:00:00 [place] [facility] Membership Branch History SDOH Social 2022-12-06 2022-12-06 3 Unive rsity of Connections 00:00:00 00:00:00 [place] [facility] Meetings Branch History SDOH Social 2022-12-06 2022-12-06 5 Unive rsity of Connections Living 00:00:00 00:00:00 [place] [facility] History SDOH 2022-12-06 2022-12-06 0 University o f Physical Activity 00:00:00 00:00:00 [place] M [facility]ical DPW Branch History SDOH 2022-12-06 2022-12-06 0 University o f Physical Activity 00:00:00 00:00:00 [place] M edical MPS Branch History SDOH Stress 2022-12-06 2022-12-06 3 Unive rsity of 00:00:00 00:00:00 [place] [facility] History SDOH 2022-12-06 2022-12-06 4 University o f Financial 00:00:00 00:00:00 [place] [facility] History SDOH 2022-12-06 2022-12-06 2 University o f Transport Med 00:00:00 00:00:00 [place] Medic al Branch History SDOH 2022-12-06 2022-12-06 2 University o f Transport Non-Med 00:00:00 00:00:00 [place] M edical Branch History SDOH 2022-12-06 2022-12-06 2 University o f Housing Unable to 00:00:00 00:00:00 [place] M edical Pay Branch History SDOH 2022-12-06 2022-12-06 1 University o f Housing Places 00:00:00 00:00:00 [place] Medi danish Lived Branch History SDOH 2022-12-06 2022-12-06 2 University o f Housing Homeless 00:00:00 00:00:00 [place] Me dical Last Year Branch Tobacco Comment 2022-01-25 2022-01-25 occasional Universit y of 00:00:00 00:00:00 [place] [facility] Cigarettes smoked 2022-01-25 2022-01-25 Univers ity of current (pack per 00:00:00 00:00:00 [facility] edical day) - Reported Branch Cigarette 2022-01-25 2022-01-25 University of pack-years 00:00:00 00:00:00 [facility] Tobacco use and 2022-01-25 2022-01-25 User of smokeless Un iversity of exposure 00:00:00 00:00:[address] [facility] Alcohol Comment 2021-02-02 2021-02-02 socially Universit y of 00:00:00 00:00:00 [facility] History of tobacco 1993-02-02 Cigarette Smoker University of use 00:00:00 [facility] Sex [birth year] Universit y of 00:00:00 00:00:00 [facility] Smoking Status Start Date Stop Date Source Ex-smoker 2022-01-25 00:00:00 2022-01-25 00:00:00 Universi ty [facility] Medications Ordered Filled Start Stop Current Ordering Indication Dosage Frequency Signature Comments Components Source Medication Medication Date Date Medication? Clinician (SIG) Name Name GABAPENTIN Yes [id number] TAKE 1 Univers 300 mg 9-07 CAPSULE BY ity of capsule 00:00: MOUTH IN [address] AND AT NOON AND IN THE EVENING GABAPENTIN 2022-0 Yes [id number] TAKE 1 Univers 300 mg 9-07 CAPSULE BY ity of capsule 00:00: MOUTH IN [address] MORNING [place] AND AT NOON AND IN THE EVENING GABAPENTIN 2022-0 Yes [id number] TAKE 1 Univers 300 mg 9-07 CAPSULE BY ity of capsule 00:00: MOUTH IN [address] AND AT NOON AND IN THE EVENING adalimumab 0 Yes [id number] 40mg inject 1 Univers (HUMIRA,CF, 03-23 [id number] Pen under i ty of PEN) 40 00:00: the skin [place] mg/0.4 mL 00 every 14 Medica l injection (fourteen) Bran ch days. GABAPENTIN 2022-0 Yes [id number] TAKE 1 Univers 300 mg 9-07 CAPSULE BY ity of capsule 00:00: MOUTH IN [address] MORNING [place] AND AT NOON AND IN THE EVENING adalimumab 2022-0 Yes [id number] 40mg inject 1 Univers (HUMIRA,CF, 03-23 [id number] Pen under i ty of PEN) 40 00:00: the skin [place] mg/0.4 mL 00 every 14 Medica l injection (fourteen) Bran ch days. GABAPENTIN 2022-0 Yes [id number] TAKE 1 Univers 300 mg 9-07 CAPSULE BY ity of capsule 00:00: MOUTH IN [place] 00 THE Medical MORNING [place] AND AT NOON AND IN THE EVENING adalimumab 2022-0 Yes [id number] 40mg inject 1 Univers (HUMIRA,CF, 03-23 [id number] Pen under i ty of PEN) 40 00:00: the skin [place] mg/0.4 mL 00 every 14 Medica l injection (fourteen) Bran ch days. GABAPENTIN 2022-0 Yes [id number] TAKE 1 Univers 300 mg 9-07 CAPSULE BY ity of capsule 00:00: MOUTH IN [place] [address] THE [facility] MORNING [place] AND AT NOON AND IN THE EVENING adalimumab 2022-0 Yes [id number] 40mg inject 1 Univers (HUMIRA,CF, 03-23 [id number] Pen under i ty of PEN) 40 00:00: the skin [place] mg/0.4 mL 00 every 14 Medica l injection (fourteen) Bran ch days. GABAPENTIN 2022-0 Yes [id number] TAKE 1 Univers 300 mg 9-07 CAPSULE BY ity of capsule 00:00: MOUTH IN [address] AND AT NOON AND IN THE EVENING adalimumab 2022-0 Yes [id number] 40mg inject 1 Univers (HUMIRA,CF, 03-23 [id number] Pen under i ty of PEN) 40 00:00: the skin [place] mg/0.4 mL 00 every 14 Medica l injection (fourteen) Bran ch days. GABAPENTIN 2022-0 Yes [id number] TAKE 1 Univers 300 mg 9-07 CAPSULE BY ity of capsule 00:00: MOUTH IN [address] MORNING [place] AND AT NOON AND IN THE EVENING adalimumab 3-0 Yes [id number] 40mg inject 1 Univers (HUMIRA,CF, 03-23 [id number] Pen under i ty of PEN) 40 00:00: the skin [place] mg/0.4 mL 00 every 14 Medica l injection (fourteen) Bran ch days. GABAPENTIN 2022-0 Yes [id number] TAKE 1 Univers 300 mg 9-07 CAPSULE BY ity of capsule 00:00: MOUTH IN [address] MORNING [place] AND AT NOON AND IN THE EVENING adalimumab 3-0 Yes [id number] 40mg inject 1 Univers (HUMIRA,CF, 03-23 [id number] Pen under i ty of PEN) 40 00:00: the skin [place] mg/0.4 mL 00 every 14 Medica l injection (fourteen) Bran ch days. GABAPENTIN 2022-0 Yes [id number] TAKE 1 Univers 300 mg 9-07 CAPSULE BY ity of capsule 00:00: MOUTH IN [place] 00 THE Medical MORNING Branch AND AT NOON AND IN THE EVENING adalimumab 2022-0 Yes [id number] 40mg inject 1 Univers (HUMIRA,CF, 03-23 [id number] Pen under i ty of PEN) 40 00:00: the skin [place] mg/0.4 mL 00 every 14 Medica l injection (fourteen) Bran ch days. GABAPENTIN 2022-0 Yes [id number] TAKE 1 Univers 300 mg 9-07 CAPSULE BY ity of capsule 00:00: MOUTH IN [place] 00 THE Medical MORNING Branch AND AT NOON AND IN THE EVENING adalimumab 2022-0 Yes [id number] 40mg inject 1 Univers (HUMIRA,CF, 03-23 [id number] Pen under i ty of PEN) 40 00:00: the skin [place] mg/0.4 mL 00 every 14 Medica l injection (fourteen) Bran ch days. GABAPENTIN 2022-0 Yes [id number] TAKE 1 Univers 300 mg 9-07 CAPSULE BY ity of capsule 00:00: MOUTH IN [place] 00 THE Medical MORNING [place] AND AT NOON AND IN THE EVENING adalimumab 2022-0 Yes [id number] 40mg inject 1 Univers (HUMIRA,CF, 03-23 [id number] Pen under i ty of PEN) 40 00:00: the skin [place] mg/0.4 mL 00 every 14 Medica l injection (fourteen) Bran ch days. GABAPENTIN 2022-0 Yes [id number] TAKE 1 Univers 300 mg 9-07 CAPSULE BY ity of capsule 00:00: MOUTH IN [place] 00 THE Medical MORNING Branch AND AT NOON AND IN THE EVENING adalimumab 3-0 Yes [id number] 40mg inject 1 Univers (HUMIRA,CF, 03-23 [id number] Pen under i ty of PEN) 40 00:00: the skin [place] mg/0.4 mL 00 every 14 Medica l injection (fourteen) Bran ch days. GABAPENTIN 2022-0 Yes [id number] TAKE 1 Univers 300 mg 9-07 CAPSULE BY ity of capsule 00:00: MOUTH IN [place] [address] THE Medical MORNING Branch AND AT NOON AND IN THE EVENING adalimumab 2023-0 Yes [id number] 40mg inject 1 Univers (HUMIRA,CF, 03-23 [id number] Pen under i ty of PEN) 40 00:00: the skin [place] mg/0.4 mL 00 every 14 Medica l injection (fourteen) Bran ch days. GABAPENTIN 2023-0 Yes [id number] TAKE 1 Univers 300 mg 9- CAPSULE BY ity of capsule 00:00: MOUTH IN [place] 00 THE Medical MORNING Branch AND AT NOON AND IN THE EVENING adalimumab 2023-0 Yes [id number] 40mg inject 1 Univers (HUMIRA,CF, 03-23 [id number] Pen under i ty of PEN) 40 00:00: the skin [place] mg/0.4 mL 00 every 14 Medica l injection (fourteen) Bran ch days. GABAPENTIN 2023-0 Yes [id number] TAKE 1 Univers 300 mg - CAPSULE BY ity of capsule 00:00: MOUTH IN [place] THE Medical MORNING Branch AND AT NOON AND IN THE EVENING adalimumab 2023-0 Yes [id number] 40mg inject 1 Univers (HUMIRA,CF, 03-23 [id number] Pen under i ty of PEN) 40 00:00: the skin [place] mg/0.4 mL 00 every 14 Medica l injection (fourteen) Bran ch days. SERTraline 2023-0 Yes [id number] 100mg Take 1 Univers 100 mg 6-26 tablet by ity of tablet 00:00: mouth in [place] the Medical morning. Branch SERTraline 2023-0 Yes [id number] 100mg Take 1 Univers 100 mg 6-26 tablet by ity of tablet 00:00: mouth in [place] the Medical morning. Branch SERTraline 2023-0 Yes [id number] 100mg Take 1 Univers 100 mg 6-26 tablet by ity of tablet 00:00: mouth in [place] the Medical morning. Branch SERTraline 2023-0 Yes [id number] 100mg Take 1 Univers 100 mg 6-26 tablet by ity of tablet 00:00: mouth in [place] the Medical morning. Branch SERTraline 2023-0 Yes [id number] 100mg Take 1 Univers 100 mg 6-26 tablet by ity of tablet 00:00: mouth in [place] the Medical morning. Branch SERTraline 2023-0 Yes [id number] 100mg Take 1 Univers 100 mg 6-26 tablet by ity of tablet 00:00: mouth in [place] the Medical morning. Branch SERTraline 2023-0 Yes [id number] 100mg Take 1 Univers 100 mg 6-26 tablet by ity of tablet 00:00: mouth in [place] 00 the Medical morning. Branch SERTraline 2023-0 Yes [id number] 100mg Take 1 Univers 100 mg 6-26 tablet by ity of tablet 00:00: mouth in [place] 00 the Medical morning. Branch SERTraline 2023-0 Yes [id number] 100mg Take 1 Univers 100 mg 6-26 tablet by ity of tablet 00:00: mouth in [place] 00 the Medical morning. Branch SERTraline 2023-0 Yes [id number] 100mg Take 1 Univers 100 mg 6-26 tablet by ity of tablet 00:00: mouth in [place] 00 the Medical morning. Branch SERTraline 2023-0 Yes [id number] 100mg Take 1 Univers 100 mg 6-26 tablet by ity of tablet 00:00: mouth in [place] 00 the Medical morning. Branch SERTraline 2023-0 Yes [id number] 100mg Take 1 Univers 100 mg 6-26 tablet by ity of tablet 00:00: mouth in [place] 00 the Medical morning. Branch SERTraline 3-0 Yes [id number] 100mg Take 1 Univers 100 mg 6-26 tablet by ity of tablet 00:00: mouth in [place] 00 the Medical morning. Branch SERTraline 3-0 Yes [id number] 100mg Take 1 Univers 100 mg 6-26 tablet by ity of tablet 00:00: mouth in [place] 00 the Medical morning. Branch SERTraline 2023-0 Yes [id number] 100mg Take 1 Univers 100 mg 6-26 tablet by ity of tablet 00:00: mouth in [place] 00 the Medical morning. Branch SERTraline 2023-0 Yes [id number] 100mg Take 1 Univers 100 mg 6-26 tablet by ity of tablet 00:00: mouth in [place] 00 the Medical morning. Branch SERTraline 2023-0 Yes [id number] 100mg Take 1 Univers 100 mg 6-26 tablet by ity of tablet 00:00: mouth in [place] 00 the Medical morning. Branch SERTraline 2023-0 Yes [id number] 100mg Take 1 Univers 100 mg 6-26 tablet by ity of tablet 00:00: mouth in [place] 00 the Medical morning. Branch SERTraline 2023-0 Yes [id number] 100mg Take 1 Univers 100 mg 6-26 tablet by ity of tablet 00:00: mouth in [place] 00 the Medical morning. Branch SERTraline 3-0 Yes [id number] 100mg Take 1 Univers 100 mg 6-26 tablet by ity of tablet 00:00: mouth in [place] 00 the Medical morning. Branch SERTraline 2022-0 Yes [id number] 100mg Take 1 Univers 100 mg 6-26 tablet by ity of tablet 00:00: mouth in [place] 00 the Medical morning. Branch icosapent 2022-0 Yes Univers ethyL 6-23 ity of (VASCEPA) 1 00:00: [facility] Medical capsule Branch levothyroxi 2022-0 Yes Univer s ne 75 mcg 6-23 ity of tablet 00:00: [place] 00 Medical Branch icosapent 2022-0 Yes Univers ethyL 6-23 ity of (VASCEPA) 1 00:00: [facility] Medical capsule Branch levothyroxi 2022-0 Yes Univer s ne 75 mcg 6-23 ity of tablet 00:00: [place] 00 Medical Branch icosapent 2022-0 Yes Univers ethyL 6-23 ity of (VASCEPA) 1 00:00: [facility] Medical capsule Branch levothyroxi 2022-0 Yes Univer s ne 75 mcg 6-23 ity of tablet 00:00: [place] [facility] Branch icosapent 2022-0 Yes Univers ethyL 6-23 ity of (VASCEPA) 1 00:00: [facility] Medical capsule Branch levothyroxi 2022-0 Yes Univer s ne 75 mcg 6-23 ity of tablet 00:00: [place] 00 Medical Branch icosapent 3-0 Yes Univers ethyL 6-23 ity of (VASCEPA) 1 00:00: [place] [facility] Medical capsule Branch levothyroxi 2022-0 Yes Univer s ne 75 mcg 6-23 ity of tablet 00:00: [place] 00 Medical Branch icosapent 3-0 Yes Univers ethyL 6-23 ity of (VASCEPA) 1 00:00: [place] gram Medical capsule Branch levothyroxi 3-0 Yes Univer s ne 75 mcg 6-23 ity of tablet 00:00: [place] 00 Medical Branch icosapent 3-0 Yes Univers ethyL 6-23 ity of (VASCEPA) 1 00:00: [place] gram 00 Medical capsule Branch levothyroxi 3-0 Yes Univer s ne 75 mcg 6-23 ity of tablet 00:00: [place] 00 Medical Branch icosapent 3-0 Yes Univers ethyL 6-23 ity of (VASCEPA) 1 00:00: [place] gram 00 Medical capsule Branch levothyroxi 2022-0 Yes Univer s ne 75 mcg 6-23 ity of tablet 00:00: [place] [facility] icosapent 2022-0 Yes Univers ethyL 6-23 ity of (VASCEPA) 1 00:00: [place] gram 00 Medical capsule Branch levothyroxi 2022-0 Yes Univer s ne 75 mcg 6-23 ity of tablet 00:00: [place] [facility] icosapent 2022-0 Yes Univers ethyL 6-23 ity of (VASCEPA) 1 00:00: [place] gram Medical capsule Branch levothyroxi 2022-0 Yes Univer s ne 75 mcg 6-23 ity of tablet 00:00: [place] [facility] icosapent 2022-0 Yes Univers ethyL 6-23 ity of (VASCEPA) 1 00:00: [place] gram 00 Medical capsule Branch levothyroxi 2022-0 Yes Univer s ne 75 mcg 6-23 ity of tablet 00:00: [place] [facility] icosapent 2022-0 Yes Univers ethyL 6-23 ity of (VASCEPA) 1 00:00: [place] gram Medical capsule Branch levothyroxi 2022-0 Yes Univer s ne 75 mcg 6-23 ity of tablet 00:00: [place] [facility] icosapent 3-0 Yes Univers ethyL 6-23 ity of (VASCEPA) 1 00:00: [place] gram 00 Medical capsule Branch levothyroxi 2022-0 Yes Univer s ne 75 mcg 6-23 ity of tablet 00:00: [place] [facility] icosapent 3-0 Yes Univers ethyL 6-23 ity of (VASCEPA) 1 00:00: [place] gram 00 Medical capsule Branch levothyroxi 2022-0 Yes Univer s ne 75 mcg 6-23 ity of tablet 00:00: [place] [facility] icosapent 3-0 Yes Univers ethyL 6-23 ity of (VASCEPA) 1 00:00: [place] gram 00 Medical capsule Branch levothyroxi 2022-0 Yes Univer s ne 75 mcg 6-23 ity of tablet 00:00: [place] 00 Medical Branch icosapent 2023-0 Yes Univers ethyL 6-23 ity of (VASCEPA) 1 00:00: [place] gram Medical capsule Branch levothyroxi 2023-0 Yes Univer s ne 75 mcg 6-23 ity of tablet 00:00: [place] [facility] icosapent 2023-0 Yes Univers ethyL 6-23 ity of (VASCEPA) 1 00:00: [place] gram Medical capsule Branch levothyroxi 2023-0 Yes Univer s ne 75 mcg 6-23 ity of tablet 00:00: [place] [facility] Branch icosapent 3-0 Yes Univers ethyL 6-23 ity of (VASCEPA) 1 00:00: [place] gram Medical capsule Branch levothyroxi 2022-0 Yes Univer s ne 75 mcg 6-23 ity of tablet 00:00: [place] [facility] Branch icosapent 3-0 Yes Univers ethyL 6-23 ity of (VASCEPA) 1 00:00: [place] [facility] Medical capsule Branch levothyroxi 3-0 Yes Univer s ne 75 mcg 6-23 ity of tablet 00:00: [place] [facility] icosapent 3-0 Yes Univers ethyL 6-23 ity of (VASCEPA) 1 00:00: [place] gram Medical capsule Branch levothyroxi 3-0 Yes Univer s ne 75 mcg 6-23 ity of tablet 00:00: [place] [facility] icosapent 3-0 Yes Univers ethyL 6-23 ity of (VASCEPA) 1 00:00: [place] gram Medical capsule Branch levothyroxi 3-0 Yes Univer s ne 75 mcg 6-23 ity of tablet 00:00: [place] [facility] Branch hydrocortis 3-0 Yes APPLY Unive rs one 2.5 % 6-13 TOPICALLY ity o f rectal 00:00: TO THE [place] cream 00 AFFECTED Medical AREA TWICE Branch DAILY hydrocortis 3-0 Yes APPLY Unive rs one 2.5 % 6-13 TOPICALLY ity o f rectal 00:00: TO THE [place] cream 00 AFFECTED Medical AREA TWICE Branch DAILY hydrocortis 2022-0 Yes APPLY Unive rs one 2.5 % 6-13 TOPICALLY ity o f rectal 00:00: TO THE [place] cream 00 AFFECTED Medical AREA TWICE Branch DAILY hydrocortis 2022-0 Yes APPLY Unive rs one 2.5 % 6-13 TOPICALLY ity o f rectal 00:00: TO THE [place] cream 00 AFFECTED Medical AREA TWICE Branch DAILY hydrocortis 2022-0 Yes APPLY Unive rs one 2.5 % 6-13 TOPICALLY ity o f rectal 00:00: TO THE [place] cream 00 AFFECTED Medical AREA TWICE Branch DAILY hydrocortis 0 Yes APPLY Unive rs one 2.5 % 6-13 TOPICALLY ity o f rectal 00:00: TO THE [place] cream 00 AFFECTED Medical AREA TWICE Branch DAILY hydrocortis 0 Yes APPLY Unive rs one 2.5 % 6-13 TOPICALLY ity o f rectal 00:00: TO THE [place] cream 00 AFFECTED Medical AREA TWICE Branch DAILY hydrocortis 0 Yes APPLY Unive rs one 2.5 % 6-13 TOPICALLY ity o f rectal 00:00: TO THE [place] cream 00 AFFECTED Medical AREA TWICE Branch DAILY hydrocortis 0 Yes APPLY Unive rs one 2.5 % 6-13 TOPICALLY ity o f rectal 00:00: TO THE [place] cream 00 AFFECTED Medical AREA TWICE Branch DAILY hydrocortis 0 Yes APPLY Unive rs one 2.5 % 6-13 TOPICALLY ity o f rectal 00:00: TO THE [place] cream 00 AFFECTED Medical AREA TWICE Branch DAILY hydrocortis 0 Yes APPLY Unive rs one 2.5 % 6-13 TOPICALLY ity o f rectal 00:00: TO THE [place] cream 00 AFFECTED Medical AREA TWICE Branch DAILY hydrocortis 2022-0 Yes APPLY Unive rs one 2.5 % 6-13 TOPICALLY ity o f rectal 00:00: TO THE [place] cream 00 AFFECTED Medical AREA TWICE Branch DAILY hydrocortis 2022-0 Yes APPLY Unive rs one 2.5 % 6-13 TOPICALLY ity o f rectal 00:00: TO THE [place] cream 00 AFFECTED Medical AREA TWICE Branch DAILY hydrocortis 2022-0 Yes APPLY Unive rs one 2.5 % 6-13 TOPICALLY ity o f rectal 00:00: TO THE [place] cream 00 AFFECTED Medical AREA TWICE Branch DAILY hydrocortis 2022-0 Yes APPLY Unive rs one 2.5 % 6-13 TOPICALLY ity o f rectal 00:00: TO THE [place] cream 00 AFFECTED Medical AREA TWICE Branch DAILY hydrocortis 2022-0 Yes APPLY Unive rs one 2.5 % 6-13 TOPICALLY ity o f rectal 00:00: TO THE [place] cream 00 AFFECTED Medical AREA TWICE Branch DAILY hydrocortis 2022-0 Yes APPLY Unive rs one 2.5 % 6-13 TOPICALLY ity o f rectal 00:00: TO THE [place] cream 00 AFFECTED Medical AREA TWICE Branch DAILY hydrocortis 2022-0 Yes APPLY Unive rs one 2.5 % 6-13 TOPICALLY ity o f rectal 00:00: TO THE [place] cream 00 AFFECTED Medical AREA TWICE Branch DAILY hydrocortis 2022-0 Yes APPLY Unive rs one 2.5 % 6-13 TOPICALLY ity o f rectal 00:00: TO THE [place] cream 00 AFFECTED Medical AREA TWICE Branch DAILY hydrocortis 2022-0 Yes APPLY Unive rs one 2.5 % 6-13 TOPICALLY ity o f rectal 00:00: TO THE [place] cream 00 AFFECTED Medical AREA TWICE Branch DAILY hydrocortis 2022-0 Yes APPLY Unive rs one 2.5 % 6-13 TOPICALLY ity o f rectal 00:00: TO THE [place] cream 00 AFFECTED Medical AREA TWICE Branch DAILY OZEMPIC Yes INJECT Univers 0.25 mg or 6-09 0.5MG ity of 0.5 mg (2 00:00: UNDER THE [place] [facility] mg/3 mL) 00 SKIN EVERY Medic al PnIj WEEK Branch OZEMPIC Yes INJECT [facility] 0.25 mg or 6-09 0.5MG ity of 0.5 mg (2 00:00: UNDER THE [place] mg/3 mL) 00 SKIN EVERY Medic al PnIj WEEK Branch OZEMPIC Yes INJECT [facility] 0.25 mg or 6-09 0.5MG ity of 0.5 mg (2 00:00: UNDER THE [place] mg/3 mL) 00 SKIN EVERY Medic al PnIj WEEK Branch OZEMPIC 0 Yes INJECT [facility] 0.25 mg or 6-09 0.5MG ity of 0.5 mg (2 00:00: UNDER THE [place] mg/3 mL) 00 SKIN EVERY Medic al PnIj WEEK Branch OZEMPIC Yes INJECT [facility] 0.25 mg or 6-09 0.5MG ity of 0.5 mg (2 00:00: UNDER THE [place] mg/3 mL) 00 SKIN EVERY Medic al [facility] Yes INJECT Univers 0.25 mg or 6-09 0.5MG ity of 0.5 mg (2 00:00: UNDER THE [place] mg/3 mL) 00 SKIN EVERY Medic al [facility] Yes INJECT Univers 0.25 mg or 6-09 0.5MG ity of 0.5 mg (2 00:00: UNDER THE [place] mg/3 mL) 00 SKIN EVERY Medic al [facility] Yes INJECT Univers 0.25 mg or 6-09 0.5MG ity of 0.5 mg (2 00:00: UNDER THE [place] mg/3 mL) 00 SKIN EVERY Medic al [facility] Yes INJECT Univers 0.25 mg or 6-09 0.5MG ity of 0.5 mg (2 00:00: UNDER THE [place] mg/3 mL) 00 SKIN EVERY Medic al [facility] Yes INJECT Univers 0.25 mg or 6-09 0.5MG ity of 0.5 mg (2 00:00: UNDER THE [place] mg/3 mL) 00 SKIN EVERY Medic al [facility] Yes INJECT Univers 0.25 mg or 6-09 0.5MG ity of 0.5 mg (2 00:00: UNDER THE [place] mg/3 mL) 00 SKIN EVERY Medic al [facility] Yes INJECT Univers 0.25 mg or 6-09 0.5MG ity of 0.5 mg (2 00:00: UNDER THE [place] mg/3 mL) 00 SKIN EVERY Medic al [facility] Yes INJECT Univers 0.25 mg or 6-09 0.5MG ity of 0.5 mg (2 00:00: UNDER THE [place] mg/3 mL) 00 SKIN EVERY [facility] Yes INJECT Univers 0.25 mg or 6-09 0.5MG ity of 0.5 mg (2 00:00: UNDER THE [place] mg/3 mL) 00 SKIN EVERY Medic al PnIj WEEK Branch OZEMPIC 2022-0 Yes INJECT Univers 0.25 mg or 6-09 0.5MG ity of 0.5 mg (2 00:00: UNDER THE [place] mg/3 mL) 00 SKIN EVERY Medic [facility] OZEMPIC 2022-0 Yes INJECT Univers 0.25 mg or 6-09 0.5MG ity of 0.5 mg (2 00:00: UNDER THE [place] mg/3 mL) 00 SKIN EVERY Medic [facility] OZEMPIC 2022-0 Yes INJECT Univers 0.25 mg or 6-09 0.5MG ity of 0.5 mg (2 00:00: UNDER THE [place] mg/3 mL) 00 SKIN EVERY [facility] OZEMPIC 0 Yes INJECT Univers 0.25 mg or 6-09 0.5MG ity of 0.5 mg (2 00:00: UNDER THE [place] mg/3 mL) 00 SKIN EVERY [facility] OZEMPIC 2022-0 Yes INJECT Univers 0.25 mg or 6-09 0.5MG ity of 0.5 mg (2 00:00: UNDER THE [place] mg/3 mL) 00 SKIN EVERY Medic [facility] OZEMPIC 2022-0 Yes INJECT Univers 0.25 mg or 6-09 0.5MG ity of 0.5 mg (2 00:00: UNDER THE [place] mg/3 mL) 00 SKIN EVERY [facility] OZEMPIC 0 Yes INJECT Univers 0.25 mg or 6-09 0.5MG ity of 0.5 mg (2 00:00: UNDER THE [place] mg/3 mL) 00 SKIN EVERY [facility] hydrOXYchlo 2022-0 Yes [id number] 400mg Take 2 Univers roQUINE 5-17 4107 tablets by ity of (PLAQUENIL) 00:00: mouth in [place] 200 mg 00 the Medical tablet morning. [place] hydrOXYchlo 3-0 Yes [id number] 400mg Take 2 Univers roQUINE 5-17 4107 tablets by ity of (PLAQUENIL) 00:00: mouth in [place] 200 mg 00 the Medical tablet morning. Branch hydrOXYchlo 2022-0 Yes [id number] 400mg Take 2 [facility] roQUINE 5-17 4107 tablets by ity of (PLAQUENIL) 00:00: mouth in [place] 200 mg 00 the Medical tablet morning. Branch hydrOXYchlo 2023-0 Yes [id number] 400mg Take 2 [facility] roQUINE 5-17 4107 tablets by ity of (PLAQUENIL) 00:00: mouth in [place] 200 mg 00 the Medical tablet morning. Branch hydrOXYchlo 2023-0 Yes [id number] 400mg Take 2 [facility] roQUINE 5-17 4107 tablets by ity of (PLAQUENIL) 00:00: mouth in [place] 200 mg 00 the Medical tablet morning. Branch hydrOXYchlo 2023-0 Yes [id number] 400mg Take 2 [facility] roQUINE 5-17 4107 tablets by ity of (PLAQUENIL) 00:00: mouth in [place] 200 mg 00 the Medical tablet morning. Branch hydrOXYchlo 2023-0 Yes [id number] 400mg Take 2 [facility] roQUINE 5-17 4107 tablets by ity of (PLAQUENIL) 00:00: mouth in [place] 200 mg 00 the Medical tablet morning. Branch hydrOXYchlo 2023-0 Yes [id number] 400mg Take 2 [facility] roQUINE 5-17 4107 tablets by ity of (PLAQUENIL) 00:00: mouth in [place] 200 mg 00 the Medical tablet morning. Branch hydrOXYchlo 2023-0 Yes [id number] 400mg Take 2 [facility] roQUINE 5-17 4107 tablets by ity of (PLAQUENIL) 00:00: mouth in [place] 200 mg 00 the Medical tablet morning. Branch hydrOXYchlo 2023-0 Yes [id number] 400mg Take 2 [facility] roQUINE 5-17 4107 tablets by ity of (PLAQUENIL) 00:00: mouth in [place] 200 mg 00 the Medical tablet morning. Branch hydrOXYchlo 2023-0 Yes [id number] 400mg Take 2 [facility] roQUINE 5-17 4107 tablets by ity of (PLAQUENIL) 00:00: mouth in [place] 200 mg 00 the Medical tablet morning. Branch hydrOXYchlo 2023-0 Yes [id number] 400mg Take 2 [facility] roQUINE 5-17 4107 tablets by ity of (PLAQUENIL) 00:00: mouth in [place] 200 mg 00 the Medical tablet morning. Branch hydrOXYchlo 2023-0 Yes [id number] 400mg Take 2 [facility] roQUINE 5-17 4107 tablets by ity of (PLAQUENIL) 00:00: mouth in [place] 200 mg 00 the Medical tablet morning. Branch hydrOXYchlo 2023-0 Yes [id number] 400mg Take 2 [facility] roQUINE 5-17 4107 tablets by ity of (PLAQUENIL) 00:00: mouth in [place] 200 mg 00 the Medical tablet morning. Branch hydrOXYchlo 2023-0 Yes [id number] 400mg Take 2 [facility] roQUINE 5-17 4107 tablets by ity of (PLAQUENIL) 00:00: mouth in [place] 200 mg 00 the Medical tablet morning. Branch hydrOXYchlo 2023-0 Yes [id number] 400mg Take 2 [facility] roQUINE 5-17 4107 tablets by ity of (PLAQUENIL) 00:00: mouth in [place] 200 mg 00 the Medical tablet morning. Branch hydrOXYchlo 2023-0 Yes [id number] 400mg Take 2 [facility] roQUINE 5-17 4107 tablets by ity of (PLAQUENIL) 00:00: mouth in [place] 200 mg 00 the Medical tablet morning. Branch hydrOXYchlo 2023-0 Yes [id number] 400mg Take 2 [facility] roQUINE 5-17 4107 tablets by ity of (PLAQUENIL) 00:00: mouth in [place] 200 mg 00 the Medical tablet morning. Branch hydrOXYchlo 2023-0 Yes [id number] 400mg Take 2 [facility] roQUINE 5-17 4107 tablets by ity of (PLAQUENIL) 00:00: mouth in [place] 200 mg 00 the Medical tablet morning. Branch hydrOXYchlo 2023-0 Yes [id number] 400mg Take 2 [facility] roQUINE 5-17 4107 tablets by ity of (PLAQUENIL) 00:00: mouth in [place] 200 mg 00 the Medical tablet morning. Branch hydrOXYchlo 2023-0 Yes [id number] 400mg Take 2 [facility] roQUINE 5-17 4107 tablets by ity of (PLAQUENIL) 00:00: mouth in [place] 200 mg 00 the Medical tablet morning. Branch hydrOXYchlo 2023-0 Yes [id number] 400mg Take 2 [facility] roQUINE 5-17 4107 tablets by ity of (PLAQUENIL) 00:00: mouth in [place] 200 mg 00 the Medical tablet morning. Branch hydrOXYchlo 2023-0 Yes [id number] 400mg Take 2 [facility] roQUINE 5-17 4107 tablets by ity of (PLAQUENIL) 00:00: mouth in [place] 200 mg 00 the Medical tablet morning. Branch hydrOXYchlo 2023-0 Yes [id number] 400mg Take 2 [facility] roQUINE 5-17 4107 tablets by ity of (PLAQUENIL) 00:00: mouth in [place] 200 mg 00 the Medical tablet morning. Branch hydrOXYchlo 2023-0 Yes [id number] 400mg Take 2 [facility] roQUINE 5-17 4107 tablets by ity of (PLAQUENIL) 00:00: mouth in [place] 200 mg 00 the Medical tablet morning. Branch hydrOXYchlo 2023-0 Yes [id number] 400mg Take 2 Univers roQUINE 5-17 4107 tablets by ity of (PLAQUENIL) 00:00: mouth in [place] 200 mg 00 the Medical tablet morning. Branch hydrOXYchlo 2023-0 Yes [id number] 400mg Take 2 [facility] roQUINE 5-17 4107 tablets by ity of (PLAQUENIL) 00:00: mouth in [place] 200 mg 00 the Medical tablet morning. Branch hydrOXYchlo 2023-0 Yes [id number] 400mg Take 2 [facility] roQUINE 5-17 4107 tablets by ity of (PLAQUENIL) 00:00: mouth in [place] 200 mg 00 the Medical tablet morning. Branch hydrOXYchlo 2023-0 Yes [id number] 400mg Take 2 [facility] roQUINE 5-17 4107 tablets by ity of (PLAQUENIL) 00:00: mouth in [place] 200 mg 00 the Medical tablet morning. Branch hydrOXYchlo 2023-0 Yes [id number] 400mg Take 2 [facility] roQUINE 5-17 4107 tablets by ity of (PLAQUENIL) 00:00: mouth in [place] 200 mg 00 the Medical tablet morning. Branch hydrOXYchlo 2023-0 Yes [id number] 400mg Take 2 [facility] roQUINE 5-17 4107 tablets by ity of (PLAQUENIL) 00:00: mouth in [place] 200 mg 00 the Medical tablet morning. Branch hydrOXYchlo 3-0 Yes [id number] 400mg Take 2 [facility] roQUINE 5-17 4107 tablets by ity of (PLAQUENIL) 00:00: mouth in [place] 200 mg 00 the Medical tablet morning. Branch hydrOXYchlo 3-0 Yes [id number] 400mg Take 2 [facility] roQUINE 5-17 4107 tablets by ity of (PLAQUENIL) 00:00: mouth in [place] 200 mg 00 the Medical tablet morning. Branch hydrOXYchlo 3-0 Yes [id number] 400mg Take 2 [facility] roQUINE 5-17 4107 tablets by ity of (PLAQUENIL) 00:00: mouth in [place] 200 mg 00 the Medical tablet morning. Branch adalimumab 2022-0 Yes [id number] 40mg inject 1 Univers ([facility], 11-21 [id number] Pen under i ty of PEN) 40 00:00: the skin [place] mg/0.4 mL 00 every 14 Medica l injection (fourteen) Bran ch days. adalimumab 2022-0 Yes [id number] 40mg inject 1 Univers ([facility], 11-21 [id number] Pen under i ty of PEN) 40 00:00: the skin [place] mg/0.4 mL 00 every 14 Medica l injection (fourteen) Bran ch days. adalimumab 2022-0 Yes [id number] 40mg inject 1 [facility] ([facility], 11-21 [id number] Pen under i ty of PEN) 40 00:00: the skin [place] mg/0.4 mL 00 every 14 Medica l injection (fourteen) Bran ch days. adalimumab 2022-0 Yes [id number] 40mg inject 1 Univers ([facility], 11-21 [id number] Pen under i ty of PEN) 40 00:00: the skin [place] mg/0.4 mL 00 every 14 Medica l injection (fourteen) Bran ch days. adalimumab 2022-0 Yes [id number] 40mg inject 1 Univers ([facility], 11-21 [id number] Pen under i ty of PEN) 40 00:00: the skin [place] mg/0.4 mL 00 every 14 Medica l injection (fourteen) Bran ch days. adalimumab 2022-0 Yes [id number] 40mg inject 1 Univers ([facility],, 11-21 [id number] Pen under i ty of PEN) 40 00:00: the skin [place] mg/0.4 mL 00 every 14 Medica l injection (fourteen) Bran ch days. adalimumab 2023-0 Yes [id number] 40mg inject 1 [facility] ([facility],, 5- [id number] Pen under i ty of PEN) 40 00:00: the skin [place] mg/0.4 mL 00 every 14 Medica l injection (fourteen) Bran ch days. adalimumab 2023-0 Yes [id number] 40mg inject 1 [facility] ([facility],, 11-21 [id number] Pen under i ty of PEN) 40 00:00: the skin [place] mg/0.4 mL 00 every 14 Medica l injection (fourteen) Bran ch days. adalimumab 2023-0 Yes [id number] 40mg inject 1 [facility] ([facility],, 11-21 [id number] Pen under i ty of PEN) 40 00:00: the skin [place] mg/0.4 mL 00 every 14 Medica l injection (fourteen) Bran ch days. adalimumab 3-0 Yes [id number] 40mg inject 1 Univers ([facility],, 11-21 [id number] Pen under i ty of PEN) 40 00:00: the skin [place] mg/0.4 mL 00 every 14 Medica l injection (fourteen) Bran ch days. adalimumab 3-0 Yes [id number] 40mg inject 1 [facility] ([facility],, 11-21 [id number] Pen under i ty of PEN) 40 00:00: the skin [place] mg/0.4 mL 00 every 14 Medica l injection (fourteen) Bran ch days. adalimumab 3-0 Yes [id number] 40mg inject 1 [facility] ([facility],, 11-21 [id number] Pen under i ty of PEN) 40 00:00: the skin [place] mg/0.4 mL 00 every 14 Medica l injection (fourteen) Bran ch days. adalimumab 2023-0 Yes [id number] 40mg inject 1 [facility] ([facility],, 11-21 [id number] Pen under i ty of PEN) 40 00:00: the skin [place] mg/0.4 mL 00 every 14 Medica l injection (fourteen) Bran ch days. adalimumab 2023-0 Yes [id number] 40mg inject 1 [facility] ([facility],, 11-21 [id number] Pen under i ty of PEN) 40 00:00: the skin [place] mg/0.4 mL 00 every 14 Medica l injection (fourteen) Bran ch days. adalimumab 2023-0 Yes [id number] 40mg inject 1 [facility] ([facility], 11-21 [id number] Pen under i ty of PEN) 40 00:00: the skin [place] mg/0.4 mL 00 every 14 Medica l injection (fourteen) Bran ch days. adalimumab 2022-0 Yes [id number] 40mg inject 1 [facility] ([facility], 11-21 [id number] Pen under i ty of PEN) 40 00:00: the skin [place] mg/0.4 mL 00 every 14 Medica l injection (fourteen) Bran ch days. adalimumab 2022-0 Yes [id number] 40mg inject 1 [facility] ([place],, 11-21 [id number] Pen under i ty of PEN) 40 00:00: the skin [place] mg/0.4 mL 00 every 14 Medica l injection (fourteen) Bran ch days. adalimumab 2022-0 Yes [id number] 40mg inject 1 Univers ([facility], 11-21 [id number] Pen under i ty of PEN) 40 00:00: the skin [place] mg/0.4 mL 00 every 14 Medica l injection (fourteen) Bran ch days. adalimumab 2022-0 Yes [id number] 40mg inject 1 [facility] ([facility], 11-21 [id number] Pen under i ty of PEN) 40 00:00: the skin [place] mg/0.4 mL 00 every 14 Medica l injection (fourteen) Bran ch days. adalimumab 2022-0 Yes [id number] 40mg inject 1 Univers ([facility], 11-21 [id number] Pen under i ty of PEN) 40 00:00: the skin [place] mg/0.4 mL 00 every 14 Medica l injection (fourteen) Bran ch days. adalimumab 0 2022- No [id number] 40mg inject 1 [facility] ([facility], 11-21 [id number] Pen under ity of PEN) 40 00:00: 00:00 the skin [place] mg/0.4 mL 00 :00 every 14 Medica l injection (fourteen) Bran ch days. estradioL 0 Yes 1{patch Apply 1 Un [facility] (CLIMARA) 3-30 } Patch to ity of 0.025 mg/24 00:00: skin [place] hr patch 00 weekly. Medical Branch estradioL 2022-0 Yes 1{patch Apply 1 [facility] (CLIMARA) 3-30 } Patch to ity of 0.025 mg/24 00:00: skin [place] hr patch 00 weekly. Medical Branch benzonatate 0 Yes [id number] 100mg Take 1 Univers (TESS[place] 3-30 capsule by ity of PERLES) 100 00:00: mouth [place] mg capsule 00 every 8 Medica l (eight) Branch hours as needed for Cough. montelukast 0 Yes [id number] 10mg Take 1 [facility] 10 mg 3-30 tablet by ity of tablet 00:00: mouth in [place] 00 the Medical morning. Branch estradioL Yes 1{patch Apply 1 [facility] (CLIMARA) 3-30 } Patch to ity of 0.025 mg/24 00:00: skin [place] hr patch 00 weekly. Medical Branch benzonatate 0 Yes [id number] 100mg Take 1 [facility] ([place] 3-30 capsule by ity of PERLES) 100 00:00: mouth [place] mg capsule 00 every 8 Medica l (eight) Branch hours as needed for Cough. montelukast 0 Yes [id number] 10mg Take 1 [facility] 10 mg 3-30 tablet by ity of tablet 00:00: mouth in [place] 00 the Medical morning. Branch estradioL Yes 1{patch Apply 1 Un [facility] (CLIMARA) 3-30 } Patch to ity of 0.025 mg/24 00:00: skin [place] hr patch 00 weekly. Medical Branch benzonatate 0 Yes [id number] 100mg Take 1 [facility] ([place] 3-30 capsule by ity of PERLES) 100 00:00: mouth [place] mg capsule 00 every 8 Medica l (eight) Branch hours as needed for Cough. montelukast 0 Yes [id number] 10mg Take 1 [facility] 10 mg 3-30 tablet by ity of tablet 00:00: mouth in [place] 00 the Medical morning. Branch estradioL 0 Yes 1{patch Apply 1 Un [facility] (CLIMARA) 3-30 } Patch to ity of 0.025 mg/24 00:00: skin [place] hr patch 00 weekly. Medical Branch benzonatate 0 Yes [id number] 100mg Take 1 [facility] ([place] 3-30 capsule by ity of PERLES) 100 00:00: mouth [place] mg capsule 00 every 8 Medica l (eight) Branch hours as needed for Cough. montelukast Yes [id number] 10mg Take 1 [facility] 10 mg 3-30 tablet by ity of tablet 00:00: mouth in [place] 00 the Medical morning. Branch estradioL Yes 1{patch Apply 1 Un [facility] (CLIMARA) 3-30 } Patch to ity of 0.025 mg/24 00:00: skin [place] hr patch 00 weekly. Medical Branch benzonatate Yes [id number] 100mg Take 1 [facility] ([place] 3-30 capsule by ity of PERLES) 100 00:00: mouth [place] mg capsule 00 every 8 Medica l (eight) Branch hours as needed for Cough. montelukast Yes [id number] 10mg Take 1 [facility] 10 mg 3-30 tablet by ity of tablet 00:00: mouth in [place] 00 the Medical morning. Branch estradioL Yes 1{patch Apply 1 Un [facility] (CLIMARA) 3-30 } Patch to ity of 0.025 mg/24 00:00: skin [place] hr patch 00 weekly. Medical Branch benzonatate Yes [id number] 100mg Take 1 [facility] ([place] 3-30 capsule by ity of PERLES) 100 00:00: mouth [place] mg capsule 00 every 8 Medica l (eight) Branch hours as needed for Cough. montelukast Yes [id number] 10mg Take 1 [facility] 10 mg 3-30 tablet by ity of tablet 00:00: mouth in [place] 00 the Medical morning. Branch estradioL Yes 1{patch Apply 1 Un [facility] (CLIMARA) 3-30 } Patch to ity of 0.025 mg/24 00:00: skin [place] hr patch 00 weekly. Medical Branch benzonatate Yes [id number] 100mg Take 1 [facility] ([place] 3-30 capsule by ity of PERLES) 100 00:00: mouth [place] mg capsule 00 every 8 Medica l (eight) Branch hours as needed for Cough. montelukast Yes [id number] 10mg Take 1 [facility] 10 mg 3-30 tablet by ity of tablet 00:00: mouth in [place] 00 the Medical morning. Branch estradioL Yes 1{patch Apply 1 Un dav[facility] (CLIMARA) 3-30 } Patch to ity of 0.025 mg/24 00:00: skin [place] hr patch 00 weekly. Medical Branch estradioL Yes 1{patch Apply 1 [facility] (CLIMARA) 3-30 } Patch to ity of 0.025 mg/24 00:00: skin [place] hr patch 00 weekly. Medical Branch estradioL Yes 1{patch Apply 1 [facility] (CLIMARA) 3-30 } Patch to ity of 0.025 mg/24 00:00: skin [place] hr patch 00 weekly. Medical Branch estradioL Yes 1{patch Apply 1 [facility] (CLIMARA) 3-30 } Patch to ity of 0.025 mg/24 00:00: skin [place] hr patch 00 weekly. Medical Branch estradioL Yes 1{patch Apply 1 [facility] (CLIMARA) 3-30 } Patch to ity of 0.025 mg/24 00:00: skin [place] hr patch 00 weekly. Medical Branch estradioL Yes 1{patch Apply 1 [facility] (CLIMARA) 3-30 } Patch to ity of 0.025 mg/24 00:00: skin [place] hr patch 00 weekly. Medical Branch estradioL Yes 1{patch Apply 1 [facility] (CLIMARA) 3-30 } Patch to ity of 0.025 mg/24 00:00: skin [place] hr patch 00 weekly. Medical Branch estradioL Yes 1{patch Apply 1 [facility] (CLIMARA) 3-30 } Patch to ity of 0.025 mg/24 00:00: skin [place] hr patch 00 weekly. Medical Branch estradioL Yes 1{patch Apply 1 [facility] (CLIMARA) 3-30 } Patch to ity of 0.025 mg/24 00:00: skin [place] hr patch 00 weekly. Medical Branch estradioL Yes 1{patch Apply 1 [facility] (CLIMARA) 3-30 } Patch to ity of 0.025 mg/24 00:00: skin [place] hr patch 00 weekly. Medical Branch estradioL Yes 1{patch Apply 1 [facility] (CLIMARA) 3-30 } Patch to ity of 0.025 mg/24 00:00: skin [place] hr patch 00 weekly. Medical Branch estradioL 2023-0 Yes 1{patch Apply 1 [facility] (CLIMARA) 3-30 } Patch to ity of 0.025 mg/24 00:00: skin [place] hr patch 00 weekly. Medical Branch estradioL 2022-0 Yes 1{patch Apply 1 [facility] (CLIMARA) 3-30 } Patch to ity of 0.025 mg/24 00:00: skin [place] hr patch 00 weekly. Medical Branch estradioL 2022-0 2023- No 1{patch Apply 1 U nivers (CLIMARA) 3-30 06-26 } Patch to ity o f 0.025 mg/24 00:00: 00:00 skin [place] hr patch 00 :00 weekly. Medical Branch estradioL 2022-0 2023- No 1{patch Apply 1 U nivers (CLIMARA) 3-30 -26 } Patch to ity o f 0.025 mg/24 00:00: 00:00 skin [place] hr patch 00 :00 weekly. Medical Branch gabapentin 2022-0 Yes [id number] 300mg Take 1 [facility] 300 mg 3-28 capsule by ity of capsule 00:00: mouth in [place] [address] [facility] morning [place] and 1 capsule at noon and 1 capsule in the evening. gabapentin 2022-0 Yes [id number] 300mg Take 1 [facility] 300 mg 3-28 capsule by ity of capsule 00:00: mouth in [place] [address] [facility] morning [place] and 1 capsule at noon and 1 capsule in the evening. gabapentin 2022-0 Yes [id number] 300mg Take 1 [facility] 300 mg 3-28 capsule by ity of capsule 00:00: mouth in [place] [address] [facility] morning [place] and 1 capsule at noon and 1 capsule in the evening. gabapentin 2023-0 Yes [id number] 300mg Take 1 [facility] 300 mg 3-28 capsule by ity of capsule 00:00: mouth in [place] [address] [facility] morning [place] and 1 capsule at noon and 1 capsule in the evening. gabapentin 2023-0 Yes [id number] 300mg Take 1 [facility] 300 mg 3-28 capsule by ity of capsule 00:00: mouth in [place] [address] [facility] morning [place] and 1 capsule at noon and 1 capsule in the evening. gabapentin 2023-0 Yes [id number] 300mg Take 1 [facility] 300 mg 3-28 capsule by ity of capsule 00:00: mouth in [place] [address] [facility] morning [place] and 1 capsule at noon and 1 capsule in the evening. gabapentin 2023-0 Yes [id number] 300mg Take 1 [facility] 300 mg 3-28 capsule by ity of capsule 00:00: mouth in [address] morning [place] and 1 capsule at noon and 1 capsule in the evening. gabapentin 2023-0 Yes [id number] 300mg Take 1 [facility] 300 mg 3-28 capsule by ity of capsule 00:00: mouth in [address] and 1 capsule at noon and 1 capsule in the evening. gabapentin 2023-0 Yes [id number] 300mg Take 1 [facility] 300 mg 3-28 capsule by ity of capsule 00:00: mouth in [address] and 1 capsule at noon and 1 capsule in the evening. gabapentin 2023-0 Yes [id number] 300mg Take 1 [facility] 300 mg 3-28 capsule by ity of capsule 00:00: mouth in [address] and 1 capsule at noon and 1 capsule in the evening. gabapentin 2023-0 Yes [id number] 300mg Take 1 [facility] 300 mg 3-28 capsule by ity of capsule 00:00: mouth in [address] and 1 capsule at noon and 1 capsule in the evening. gabapentin 2023-0 Yes [id number] 300mg Take 1 [facility] 300 mg 3-28 capsule by ity of capsule 00:00: mouth in [address] and 1 capsule at noon and 1 capsule in the evening. gabapentin 2023-0 Yes [id number] 300mg Take 1 [facility] 300 mg 3-28 capsule by ity of capsule 00:00: mouth in [address] and 1 capsule at noon and 1 capsule in the evening. gabapentin 2023-0 Yes [id number] 300mg Take 1 [facility] 300 mg 3-28 capsule by ity of capsule 00:00: mouth in [address] and 1 capsule at noon and 1 capsule in the evening. gabapentin 2023-0 Yes [id number] 300mg Take 1 [facility] 300 mg 3-28 capsule by ity of capsule 00:00: mouth in [address] and 1 capsule at noon and 1 capsule in the evening. gabapentin 2023-0 Yes [id number] 300mg Take 1 [facility] 300 mg 3-28 capsule by ity of capsule 00:00: mouth in [address] and 1 capsule at noon and 1 capsule in the evening. gabapentin 2023-0 Yes [id number] 300mg Take 1 [facility] 300 mg 3-28 capsule by ity of capsule 00:00: mouth in [address] morning [place] and 1 capsule at noon and 1 capsule in the evening. gabapentin 2023-0 Yes [id number] 300mg Take 1 [facility] 300 mg 3-28 capsule by ity of capsule 00:00: mouth in [address] and 1 capsule at noon and 1 capsule in the evening. gabapentin 2023-0 Yes [id number] 300mg Take 1 [facility] 300 mg 3-28 capsule by ity of capsule 00:00: mouth in [address] and 1 capsule at noon and 1 capsule in the evening. gabapentin 2023-0 Yes [id number] 300mg Take 1 [facility] 300 mg 3-28 capsule by ity of capsule 00:00: mouth in [address] and 1 capsule at noon and 1 capsule in the evening. gabapentin 2023-0 Yes [id number] 300mg Take 1 [facility] 300 mg 3-28 capsule by ity of capsule 00:00: mouth in [address] and 1 capsule at noon and 1 capsule in the evening. gabapentin 2023-0 Yes [id number] 300mg Take 1 [facility] 300 mg 3-28 capsule by ity of capsule 00:00: mouth in [address] and 1 capsule at noon and 1 capsule in the evening. gabapentin 2023-0 Yes [id number] 300mg Take 1 [facility] 300 mg 3-28 capsule by ity of capsule 00:00: mouth in [address] and 1 capsule at noon and 1 capsule in the evening. gabapentin 2023-0 Yes [id number] 300mg Take 1 [facility] 300 mg 3-28 capsule by ity of capsule 00:00: mouth in [address] and 1 capsule at noon and 1 capsule in the evening. gabapentin 2023-0 Yes [id number] 300mg Take 1 [facility] 300 mg 3-28 capsule by ity of capsule 00:00: mouth in [address] and 1 capsule at noon and 1 capsule in the evening. gabapentin 2023-0 Yes [id number] 300mg Take 1 [facility] 300 mg 3-28 capsule by ity of capsule 00:00: mouth in [address] and 1 capsule at noon and 1 capsule in the evening. gabapentin 2023-0 Yes [id number] 300mg Take 1 [facility] 300 mg 3-28 capsule by ity of capsule 00:00: mouth in [place] 00 the Medical morning Branch and 1 capsule at noon and 1 capsule in the evening. gabapentin 2023-0 2023- No [id number] 300mg Take 1 [facility] 300 mg 3-28 - capsule by ity of capsule 00:00: 00:00 mouth in [place] 00 :00 the Medical morning Branch and 1 capsule at noon and 1 capsule in the evening. gabapentin 3-0 2023- No [id number] 300mg Take 1 [facility] 300 mg 3-28 - capsule by ity of capsule 00:00: 00:00 mouth in [place] 00 :00 the Medical morning Branch and 1 capsule at noon and 1 capsule in the evening. hydrOXYchlo 2023-0 Yes [id number] 400mg Take 2 [facility] roQUINE 3-24 4107 tablets by ity of (PLAQUENIL) 00:00: mouth in [place] 200 mg 00 the Medical tablet morning. Branch hydrOXYchlo 2023-0 Yes [id number] 400mg Take 2 [facility] roQUINE 3-24 4107 tablets by ity of (PLAQUENIL) 00:00: mouth in [place] 200 mg 00 the Medical tablet morning. Branch hydrOXYchlo 2023-0 Yes [id number] 400mg Take 2 [facility] roQUINE 3-24 4107 tablets by ity of (PLAQUENIL) 00:00: mouth in [place] 200 mg 00 the Medical tablet morning. Branch hydrOXYchlo 2023-0 Yes [id number] 400mg Take 2 [facility] roQUINE 3-24 4107 tablets by ity of (PLAQUENIL) 00:00: mouth in [place] 200 mg 00 the Medical tablet morning. Branch hydrOXYchlo 2023-0 Yes [id number] 400mg Take 2 [facility] roQUINE 3-24 4107 tablets by ity of (PLAQUENIL) 00:00: mouth in [place] 200 mg 00 the Medical tablet morning. Branch hydrOXYchlo 2023-0 Yes [id number] 400mg Take 2 [facility] roQUINE 3-24 4107 tablets by ity of (PLAQUENIL) 00:00: mouth in [place] 200 mg 00 the Medical tablet morning. Branch hydrOXYchlo 2023-0 Yes [id number] 400mg Take 2 [facility] roQUINE 3-24 4107 tablets by ity of (PLAQUENIL) 00:00: mouth in [place] 200 mg 00 the Medical tablet morning. Branch hydrOXYchlo 2023-0 Yes [id number] 400mg Take 2 [facility] roQUINE 3-24 4107 tablets by ity of (PLAQUENIL) 00:00: mouth in [place] 200 mg 00 the Medical tablet morning. Branch hydrOXYchlo 2023-0 Yes [id number] 400mg Take 2 [facility] roQUINE 3-24 4107 tablets by ity of (PLAQUENIL) 00:00: mouth in [place] 200 mg 00 the Medical tablet morning. Branch hydrOXYchlo 2023-0 Yes [id number] 400mg Take 2 [facility] roQUINE 3-24 4107 tablets by ity of (PLAQUENIL) 00:00: mouth in [place] 200 mg 00 the Medical tablet morning. Branch hydrOXYchlo 2023-0 Yes [id number] 400mg Take 2 [facility] roQUINE 3-24 4107 tablets by ity of (PLAQUENIL) 00:00: mouth in [place] 200 mg 00 the Medical tablet morning. Branch hydrOXYchlo 2023-0 Yes [id number] 400mg Take 2 [facility] roQUINE 3-24 4107 tablets by ity of (PLAQUENIL) 00:00: mouth in [place] 200 mg 00 the Medical tablet morning. Branch hydrOXYchlo 2023-0 Yes [id number] 400mg Take 2 [facility] roQUINE 3-24 4107 tablets by ity of (PLAQUENIL) 00:00: mouth in [place] 200 mg 00 the Medical tablet morning. Branch hydrOXYchlo 2023-0 Yes [id number] 400mg Take 2 [facility] roQUINE 3-24 4107 tablets by ity of (PLAQUENIL) 00:00: mouth in [place] 200 mg 00 the Medical tablet morning. Branch hydrOXYchlo 2023-0 2023- No [id number] 400mg Take 2 [facility] roQUINE 3-24 05-17 4107 tablets by ity o f (PLAQUENIL) 00:00: 00:00 mouth in [place] 200 mg 00 :00 the Medical tablet morning. Branch hydrOXYchlo 2023-0 2023- No [id number] 200mg Take 1 [facility] roQUINE 3-24 03-24 [id number] tablet by ity of (PLAQUENIL) 00:00: 00:00 mouth in [place] 200 mg 00 :00 the Medical tablet morning Branch and 1 tablet in the evening. hydrOXYchlo 2022- No [id number] 200mg Take 1 [facility] roQUINE 10-07 [id number] tablet by ity of (PLAQUENIL) 00:00: 00:00 mouth in [place] 200 mg 00 :00 the Medical tablet morning Branch and 1 tablet in the evening. estradioL Yes [id number] 1{patch Apply 1 [facility] (MINIVELLE) 3-23 } Patch to ity of 0.025 mg/24 00:00: skin 2 [place] patch 00 (two) Medical times per Branch week. estradioL Yes [id number] 1{patch Apply 1 [facility] ([place]EL[place]) 3-23 } Patch to ity of 0.025 mg/24 00:00: skin [place] patch 00 (two) Medical times per Branch week. estradioL Yes 1{patch Apply 1 [facility] ([place]) 3-23 } Patch to ity of 0.025 mg/24 00:00: skin [place] patch 00 (two) Medical times per Branch week. estradioL Yes [id number] 1{patch Apply 1 [facility] ([place]) 3-23 } Patch to ity of 0.025 mg/24 00:00: skin [place] 00 (two) Medical times per Branch week. estradioL Yes 1{patch Apply 1 [facility] ([place]) 3-23 } Patch to ity of 0.025 mg/24 00:00: skin [place] patch 00 (two) Medical times per Branch week. estradioL Yes 1{patch Apply 1 [facility] ([place]) 3-23 } Patch to ity of 0.025 mg/24 00:00: skin [place] patch 00 (two) Medical times per Branch week. estradioL Yes 1{patch Apply 1 [facility] ([place]) 3-23 } Patch to ity of 0.025 mg/24 00:00: skin [place] patch 00 (two) Medical times per Branch week. estradioL Yes [id number] 1{patch Apply 1 [facility] ([place]) 3 } Patch to ity of 0.025 mg/24 00:00: skin [place] patch 00 (two) Medical times per Branch week. estradioL 2022-0 2022- No [id number] 1{patch Apply 1 [facility] ([place]) 3-30 } Patch to ity of 0.025 mg/24 00:00: 00:00 skin 2 [place] patch 00 :00 (two) Medical times per Branch week. estradioL 2022-0 2022- No [id number] 1{patch Apply 1 [facility] (MINIVELLE) 10-06-30 } Patch to ity of 0.025 mg/24 00:00: 00:00 skin 2 [place] patch 00 :00 (two) Medical times per Branch week. Cholecalcif 2023-0 Yes Barbara hoyt mary, 3-15 ity of Vitamin D3, 00:00: [place] (VITAMIN 00 Medical D3) 50 mcg Branch (2,000 unit) tablet Cholecalcif 2023-0 Yes [place] hoyt mary, 3-15 ity of Vitamin D3, 00:00: [place] (VITAMIN 00 Medical D3) 50 mcg Branch (2,000 unit) tablet Cholecalcif 2023-0 Yes [facility] hoyt mary, 3-15 ity of Vitamin D3, 00:00: [place] (VITAMIN 00 Medical D3) 50 mcg Branch (2,000 unit) tablet Cholecalcif 2023-0 Yes [facility] hoyt mary, 3-15 ity of Vitamin D3, 00:00: [place] (VITAMIN 00 Medical D3) 50 mcg Branch (2,000 unit) tablet Cholecalcif 2023-0 Yes [facility] hoyt mary, 3-15 ity of Vitamin D3, 00:00: [place] (VITAMIN 00 Medical D3) 50 mcg Branch (2,000 unit) tablet Cholecalcif 2023-0 Yes [facility] hoyt mary, 3-15 ity of Vitamin D3, 00:00: [place] (VITAMIN 00 Medical D3) 50 mcg Branch (2,000 unit) tablet Cholecalcif 2023-0 Yes [facility] hoyt mary, 3-15 ity of Vitamin D3, 00:00: [place] (VITAMIN 00 Medical D3) 50 mcg Branch (2,000 unit) tablet Cholecalcif 2023-0 Yes [facility] hoyt mary, 3-15 ity of Vitamin D3, 00:00: [place] (VITAMIN 00 Medical D3) 50 mcg Branch (2,000 unit) tablet Cholecalcif 2023-0 Yes Univer s mary, 3-15 ity of Vitamin D3, 00:00: [place] (VITAMIN 00 Medical D3) 50 mcg Branch (2,000 unit) tablet Cholecalcif 2023-0 Yes Univer s mary, 3-15 ity of Vitamin D3, 00:00: [place] (VITAMIN 00 Medical D3) 50 mcg Branch (2,000 unit) tablet Cholecalcif 2023-0 Yes Univer s mary, 3-15 ity of Vitamin D3, 00:00: [place] (VITAMIN 00 Medical D3) 50 mcg Branch (2,000 unit) tablet Cholecalcif 2023-0 Yes Univer s mary, 3-15 ity of Vitamin D3, 00:00: [place] (VITAMIN 00 Medical D3) 50 mcg Branch (2,000 unit) tablet Cholecalcif 2023-0 Yes Univer s mary, 3-15 ity of Vitamin D3, 00:00: [place] (VITAMIN 00 Medical D3) 50 mcg Branch (2,000 unit) tablet Cholecalcif 2023-0 Yes Univer s mary, 3-15 ity of Vitamin D3, 00:00: [place] (VITAMIN 00 Medical D3) 50 mcg Branch (2,000 unit) tablet Cholecalcif 2023-0 Yes Univer s mary, 3-15 ity of Vitamin D3, 00:00: [place] (VITAMIN 00 Medical D3) 50 mcg Branch (2,000 unit) tablet Cholecalcif 2023-0 Yes Univer s mary, 3-15 ity of Vitamin D3, 00:00: [place] (VITAMIN 00 Medical D3) 50 mcg Branch (2,000 unit) tablet Cholecalcif 2023-0 Yes Univer s mary, 3-15 ity of Vitamin D3, 00:00: [place] (VITAMIN 00 Medical D3) 50 mcg Branch (2,000 unit) tablet Cholecalcif 2023-0 Yes Univer s mary, 3-15 ity of Vitamin D3, 00:00: [place] (VITAMIN 00 Medical D3) 50 mcg Branch (2,000 unit) tablet Cholecalcif 2023-0 Yes Univer s mary, 3-15 ity of Vitamin D3, 00:00: [place] (VITAMIN 00 Medical D3) 50 mcg Branch (2,000 unit) tablet Cholecalcif 2022-0 Yes Barbara s mary, 3-15 ity of Vitamin D3, 00:00: [place] (VITAMIN 00 Medical D3) 50 mcg Branch (2,000 unit) tablet Cholecalcif 2022-0 Yes Barbara s mary, 3-15 ity of Vitamin D3, 00:00: [place] (VITAMIN 00 Medical D3) 50 mcg Branch (2,000 unit) tablet empaglifloz 0 2022- No Take by Un david in-metformi 3-02 03-02 mouth 2 ity of n 11:49: 00:00 (two) [place] () 18 :00 times Medical 5-1,000 mg daily. Branch Tab empaglifloz 2022-0 Yes [id number] 1{tbl} Take 1 [facility] in-metformi 3-02 tablet by ity of n 00:00: mouth in [place] () 00 the Medical 5-1,000 mg morning Branch Tab and 1 tablet in the evening. empaglifloz 2022-0 Yes [id number] 1{tbl} Take 1 [facility] in-metformi 3-02 tablet by ity of n 00:00: mouth in [place] () 00 the Medical 5-1,000 mg morning Branch Tab and 1 tablet in the evening. empaglifloz 3-0 Yes [id number] 1{tbl} Take 1 [facility] in-metformi 3-02 tablet by ity of n 00:00: mouth in [place] () 00 the Medical 5-1,000 mg morning Branch Tab and 1 tablet in the evening. empaglifloz 3-0 Yes [id number] 1{tbl} Take 1 [facility] in-metformi 3-02 tablet by ity of n 00:00: mouth in [place] () 00 the Medical 5-1,000 mg morning Branch Tab and 1 tablet in the evening. empaglifloz 3-0 Yes [id number] 1{tbl} Take 1 [facility] in-[place]formi 3-02 tablet by ity of n 00:00: mouth in [place] () 00 the Medical 5-1,000 mg morning Branch Tab and 1 tablet in the evening. empaglifloz 3-0 Yes [id number] 1{tbl} Take 1 [facility] in-metformi 3-02 tablet by ity of n 00:00: mouth in [place] ([facility]) 00 the Medical 5-1,000 mg morning Branch Tab and 1 tablet in the evening. empaglifloz 3-0 Yes [id number] 1{tbl} Take 1 [facility] in-metformi 3-02 tablet by ity of n 00:00: mouth in [place] ([facility]) 00 the Medical 5-1,000 mg morning Branch Tab and 1 tablet in the evening. empaglifloz 2023-0 Yes [id number] 1{tbl} Take 1 [facility] in-metformi 3-02 tablet by ity of n 00:00: mouth in [place] ([facility]) 00 the Medical 5-1,000 mg morning Branch Tab and 1 tablet in the evening. empaglifloz 3-0 Yes [id number] 1{tbl} Take 1 [facility] in-metformi 3-02 tablet by ity of n 00:00: mouth in [facility]) 00 the Medical 5-1,000 mg morning Branch Tab and 1 tablet in the evening. empaglifloz 3-0 Yes [id number] 1{tbl} Take 1 [facility] in-metformi 3-02 tablet by ity of n 00:00: mouth in [facility]) 00 the Medical 5-1,000 mg morning Branch Tab and 1 tablet in the evening. empaglifloz 3-0 Yes [id number] 1{tbl} Take 1 [facility] in-metformi 3-02 tablet by ity of n 00:00: mouth in [place] ([facility]) 00 the Medical 5-1,000 mg morning Branch Tab and 1 tablet in the evening. empaglifloz 3-0 Yes [id number] 1{tbl} Take 1 [facility] in-metformi 3-02 tablet by ity of n 00:00: mouth in [facility]) 00 the Medical 5-1,000 mg morning Branch Tab and 1 tablet in the evening. empaglifloz 3-0 Yes [id number] 1{tbl} Take 1 [facility] in-metformi 3-02 tablet by ity of n 00:00: mouth in [place] ([facility]) 00 the Medical 5-1,000 mg morning Branch Tab and 1 tablet in the evening. empaglifloz 2023-0 Yes [id number] 1{tbl} Take 1 [facility] in-metformi 3-02 tablet by ity of n 00:00: mouth in [place] ([facility]) 00 the Medical 5-1,000 mg morning Branch Tab and 1 tablet in the evening. pantoprazol 2023-0 Yes 40mg Take 1 Univ ers e 40 mg EC 3-02 tablet by ity of tablet 00:00: mouth [place] 00 every Medical morning. Branch empaglifloz 2023-0 Yes [id number] 1{tbl} Take 1 [facility] in-metformi 3-02 tablet by ity of n 00:00: mouth in [place] ([facility]) 00 the Medical 5-1,000 mg morning Branch Tab and 1 tablet in the evening. pantoprazol 2023-0 Yes 40mg Take 1 Univ ers e 40 mg EC 3-02 tablet by ity of tablet 00:00: mouth [place] 00 every Medical morning. Branch empaglifloz 2023-0 Yes [id number] 1{tbl} Take 1 [facility] in-metformi 3-02 tablet by ity of n 00:00: mouth in [place] ([facility]) 00 the Medical 5-1,000 mg morning Branch Tab and 1 tablet in the evening. pantoprazol 2023-0 Yes 40mg Take 1 Univ ers e 40 mg EC 3-02 tablet by ity of tablet 00:00: mouth [place] 00 every Medical morning. Branch empaglifloz 2023-0 Yes [id number] 1{tbl} Take 1 [facility] in-metformi 3-02 tablet by ity of n 00:00: mouth in [place] ([facility]) 00 the Medical 5-1,000 mg morning Branch Tab and 1 tablet in the evening. pantoprazol 2023-0 Yes 40mg Take 1 Univ ers e 40 mg EC 3-02 tablet by ity of tablet 00:00: mouth [place] 00 every Medical morning. Branch empaglifloz 2023-0 Yes [id number] 1{tbl} Take 1 [facility] in-metformi 3-02 tablet by ity of n 00:00: mouth in [place] ([facility]) 00 the Medical 5-1,000 mg morning Branch Tab and 1 tablet in the evening. pantoprazol 2023-0 Yes 40mg Take 1 Univ ers e 40 mg EC 3-02 tablet by ity of tablet 00:00: mouth [place] 00 every Medical morning. Branch empaglifloz 2023-0 Yes [id number] 1{tbl} Take 1 [facility] in-metformi 3-02 tablet by ity of n 00:00: mouth in [place] ([facility]) 00 the Medical 5-1,000 mg morning Branch Tab and 1 tablet in the evening. pantoprazol 2023-0 Yes 40mg Take 1 Univ ers e 40 mg EC 3-02 tablet by ity of tablet 00:00: mouth [place] 00 every Medical morning. Branch empaglifloz 2023-0 Yes [id number] 1{tbl} Take 1 [facility] in-metformi 3-02 tablet by ity of n 00:00: mouth in [place] ([facility]) 00 the Medical 5-1,000 mg morning Branch Tab and 1 tablet in the evening. pantoprazol 2023-0 Yes 40mg Take 1 Univ ers e 40 mg EC 3-02 tablet by ity of tablet 00:00: mouth [place] 00 every Medical morning. Branch empaglifloz 2023-0 Yes [id number] 1{tbl} Take 1 [facility] in-metformi 3-02 tablet by ity of n 00:00: mouth in [place] ([facility]) 00 the Medical 5-1,000 mg morning Branch Tab and 1 tablet in the evening. pantoprazol 2023-0 Yes 40mg Take 1 Univ ers e 40 mg EC 3-02 tablet by ity of tablet 00:00: mouth [place] 00 every Medical morning. Branch empaglifloz 2023-0 Yes [id number] 1{tbl} Take 1 [facility] in-metformi 3-02 tablet by ity of n 00:00: mouth in [place] ([facility]) 00 the Medical 5-1,000 mg morning Branch Tab and 1 tablet in the evening. pantoprazol 2023-0 Yes 40mg Take 1 Univ ers e 40 mg EC 3-02 tablet by ity of tablet 00:00: mouth [place] 00 every Medical morning. Branch empaglifloz 2023-0 Yes [id number] 1{tbl} Take 1 [facility] in-metformi 3-02 tablet by ity of n 00:00: mouth in [place] ([facility]) 00 the Medical 5-1,000 mg morning Branch Tab and 1 tablet in the evening. pantoprazol 2023-0 Yes 40mg Take 1 Univ ers e 40 mg EC 3-02 tablet by ity of tablet 00:00: mouth [place] 00 every Medical morning. Branch empaglifloz 2023-0 Yes [id number] 1{tbl} Take 1 [facility] in-metformi 3-02 tablet by ity of n 00:00: mouth in [place] ([facility]) 00 the Medical 5-1,000 mg morning Branch Tab and 1 tablet in the evening. pantoprazol 2023-0 Yes 40mg Take 1 Univ ers e 40 mg EC 3-02 tablet by ity of tablet 00:00: mouth [place] 00 every Medical morning. Branch empaglifloz 2023-0 Yes [id number] 1{tbl} Take 1 [facility] in-metformi 3-02 tablet by ity of n 00:00: mouth in [place] ([facility]) 00 the Medical 5-1,000 mg morning Branch Tab and 1 tablet in the evening. pantoprazol 2023-0 Yes 40mg Take 1 Univ ers e 40 mg EC 3-02 tablet by ity of tablet 00:00: mouth [place] 00 every Medical morning. Branch empaglifloz 2023-0 Yes [id number] 1{tbl} Take 1 [facility] in-metformi 3-02 tablet by ity of n 00:00: mouth in [place] ([facility]) 00 the Medical 5-1,000 mg morning Branch Tab and 1 tablet in the evening. pantoprazol 2023-0 Yes 40mg Take 1 Univ ers e 40 mg EC 3-02 tablet by ity of tablet 00:00: mouth [place] 00 every Medical morning. Branch empaglifloz 2023-0 Yes [id number] 1{tbl} Take 1 [facility] in-metformi 3-02 tablet by ity of n 00:00: mouth in [place] ([facility]) 00 the Medical 5-1,000 mg morning Branch Tab and 1 tablet in the evening. pantoprazol 2023-0 Yes 40mg Take 1 Univ ers e 40 mg EC 3-02 tablet by ity of tablet 00:00: mouth [place] 00 every Medical morning. Branch empaglifloz 2023-0 Yes [id number] 1{tbl} Take 1 [facility] in-metformi 3-02 tablet by ity of n 00:00: mouth in [place] ([facility]) 00 the Medical 5-1,000 mg morning Branch Tab and 1 tablet in the evening. pantoprazol 2023-0 Yes 40mg Take 1 Univ ers e 40 mg EC 3-02 tablet by ity of tablet 00:00: mouth [place] 00 every Medical morning. Branch empaglifloz 2023-0 Yes [id number] 1{tbl} Take 1 [facility] in-metformi 3-02 tablet by ity of n 00:00: mouth in [place] () 00 the Medical 5-1,000 mg morning Branch Tab and 1 tablet in the evening. pantoprazol 2023-0 Yes 40mg Take 1 Univ ers e 40 mg EC 3-02 tablet by ity of tablet 00:00: mouth [place] 00 every Medical morning. Branch empaglifloz 2023-0 Yes [id number] 1{tbl} Take 1 [facility] in-metformi 3-02 tablet by ity of n 00:00: mouth in [place] ([facility]) 00 the Medical 5-1,000 mg morning Branch Tab and 1 tablet in the evening. pantoprazol 2023-0 Yes 40mg Take 1 Univ ers e 40 mg EC 3-02 tablet by ity of tablet 00:00: mouth [place] 00 every Medical morning. Branch empaglifloz 2023-0 Yes [id number] 1{tbl} Take 1 [facility] in-metformi 3-02 tablet by ity of n 00:00: mouth in [place] () 00 the Medical 5-1,000 mg morning Branch Tab and 1 tablet in the evening. pantoprazol 2023-0 Yes 40mg Take 1 Univ ers e 40 mg EC 3-02 tablet by ity of tablet 00:00: mouth [place] 00 every Medical morning. Branch empaglifloz 2023-0 Yes [id number] 1{tbl} Take 1 [facility] in-metformi 3-02 tablet by ity of n 00:00: mouth in [place] () 00 the Medical 5-1,000 mg morning Branch Tab and 1 tablet in the evening. pantoprazol 2023-0 Yes 40mg Take 1 Univ ers e 40 mg EC 3-02 tablet by ity of tablet 00:00: mouth [place] 00 every Medical morning. Branch empaglifloz 2023-0 Yes [id number] 1{tbl} Take 1 [facility] in-metformi 3-02 tablet by ity of n 00:00: mouth in [place] () 00 the Medical 5-1,000 mg morning Branch Tab and 1 tablet in the evening. pantoprazol 2023-0 Yes 40mg Take 1 Univ ers e 40 mg EC 3-02 tablet by ity of tablet 00:00: mouth [place] 00 every Medical morning. Branch empaglifloz 2023-0 Yes [id number] 1{tbl} Take 1 [facility] in-metformi 3-02 tablet by ity of n 00:00: mouth in [place] () 00 the Medical 5-1,000 mg morning Branch Tab and 1 tablet in the evening. empaglifloz 2023-0 Yes [id number] 1{tbl} Take 1 [facility] in-metformi 3-02 tablet by ity of n 00:00: mouth in [place] () 00 the Medical 5-1,000 mg morning Branch Tab and 1 tablet in the evening. empaglifloz 2023-0 Yes [id number] 1{tbl} Take 1 [facility] in-metformi 3-02 tablet by ity of n 00:00: mouth in [place] () 00 the Medical 5-1,000 mg morning Branch Tab and 1 tablet in the evening. empaglifloz 2023-0 Yes [id number] 1{tbl} Take 1 [facility] in-metformi 3-02 tablet by ity of n 00:00: mouth in [place] () 00 the Medical 5-1,000 mg morning Branch Tab and 1 tablet in the evening. empaglifloz 2023-0 Yes [id number] 1{tbl} Take 1 [facility] in-metformi 3-02 tablet by ity of n 00:00: mouth in [place] () 00 the Medical 5-1,000 mg morning Branch Tab and 1 tablet in the evening. empaglifloz 2023-0 Yes [id number] 1{tbl} Take 1 [facility] in-metformi 3-02 tablet by ity of n 00:00: mouth in [facility]) 00 the Medical 5-1,000 mg morning Branch Tab and 1 tablet in the evening. empaglifloz 2022-0 Yes [id number] 1{tbl} Take 1 [facility] in-metformi 3-02 tablet by ity of n 00:00: mouth in [facility]) 00 the Medical 5-1,000 mg morning Branch Tab and 1 tablet in the evening. empaglifloz 2022-0 Yes [id number] 1{tbl} Take 1 [facility] in-metformi 3-02 tablet by ity of n 00:00: mouth in [facility] 00 the Medical 5-1,000 mg morning Branch Tab and 1 tablet in the evening. empaglifloz 2022-0 Yes [id number] 1{tbl} Take 1 [facility] in-metformi 3-02 tablet by ity of n 00:00: mouth in [facility] 00 the Medical 5-1,000 mg morning Branch Tab and 1 tablet in the evening. empaglifloz 2022-0 Yes [id number] 1{tbl} Take 1 [facility] in-metformi 3-02 tablet by ity of n 00:00: mouth in [facility] 00 the Medical 5-1,000 mg morning Branch Tab and 1 tablet in the evening. empaglifloz 2022-0 Yes [id number] 1{tbl} Take 1 [facility] in-metformi 3-02 tablet by ity of n 00:00: mouth in [facility]) 00 the Medical 5-1,000 mg morning Branch Tab and 1 tablet in the evening. empaglifloz 3-0 Yes [id number] 1{tbl} Take 1 [facility] in-metformi 3-02 tablet by ity of n 00:00: mouth in [facility] 00 the Medical 5-1,000 mg morning Branch Tab and 1 tablet in the evening. empaglifloz 2022-0 Yes [id number] 1{tbl} Take 1 [facility] in-metformi 3-02 tablet by ity of n 00:00: mouth in [place] () 00 the Medical 5-1,000 mg morning Branch Tab and 1 tablet in the evening. empaglifloz 2023-0 Yes [id number] 1{tbl} Take 1 [facility] in-metformi 3-02 tablet by ity of n 00:00: mouth in [place] ([facility]) 00 the Medical 5-1,000 mg morning Branch Tab and 1 tablet in the evening. empaglifloz 2023-0 Yes [id number] 1{tbl} Take 1 [facility] in-metformi 3-02 tablet by ity of n 00:00: mouth in [place] () 00 the Medical 5-1,000 mg morning Branch Tab and 1 tablet in the evening. empaglifloz 2023-0 Yes [id number] 1{tbl} Take 1 [facility] in-metformi 3-02 tablet by ity of n 00:00: mouth in [place] ([facility]) 00 the Medical 5-1,000 mg morning Branch Tab and 1 tablet in the evening. empaglifloz 2023-0 Yes [id number] 1{tbl} Take 1 [facility] in-metformi 3-02 tablet by ity of n 00:00: mouth in [place] ([facility]) 00 the Medical 5-1,000 mg morning Branch Tab and 1 tablet in the evening. empaglifloz 3-0 Yes [id number] 1{tbl} Take 1 [facility] in-metformi 3-02 tablet by ity of n 00:00: mouth in [place] ([facility]) 00 the Medical 5-1,000 mg morning Branch Tab and 1 tablet in the evening. empaglifloz 2023-0 Yes [id number] 1{tbl} Take 1 [facility] in-metformi 3-02 tablet by ity of n 00:00: mouth in [place] () 00 the Medical 5-1,000 mg morning Branch Tab and 1 tablet in the evening. empaglifloz 2023-0 Yes [id number] 1{tbl} Take 1 [facility] in-metformi 3-02 tablet by ity of n 00:00: mouth in [place] () 00 the Medical 5-1,000 mg morning Branch Tab and 1 tablet in the evening. empaglifloz 0 Yes [id number] 1{tbl} Take 1 [facility] in-metformi 3-02 tablet by ity of n 00:00: mouth in [place] ([facility]) 00 the Medical 5-1,000 mg morning Branch Tab and 1 tablet in the evening. pantoprazol 2022-2022- No 40mg Take 1 Uni vers e 40 mg EC 09-15 tablet by ity of tablet 00:00: 00:00 mouth [place] 00 :00 every Medical morning. Branch pantoprazol 2022- No 40mg Take 1 Uni vers e 40 mg EC 09-15 tablet by ity of tablet 00:00: 00:00 mouth [place] 00 :00 every Medical morning. Branch simvastatin 2022- No 80mg Take 80 mg [facility] 80 mg 2-28 09-13 by mouth ity of tablet 07:41: 00:00 at [place] 17 :00 bedtime. Medical Branch simvastatin 2022-0 Yes [id number] 80mg Take 1 [facility] 80 mg 2-28 tablet by ity of tablet 00:00: mouth at [place] [address] bedtime. Medical Branch levothyroxi 2022-0 Yes [id number] 50ug Take 1 [facility] ne 50 mcg 2-28 tablet by ity o f tablet 00:00: mouth [place] 00 every Medical morning. Branch simvastatin 2022-0 Yes [id number] 80mg Take 1 [facility] 80 mg 2-28 tablet by ity of tablet 00:00: mouth at [place] 00 bedtime. Medical Branch levothyroxi 2022-0 Yes [id number] 50ug Take 1 [facility] ne 50 mcg 2-28 tablet by ity o f tablet 00:00: mouth [place] 00 every Medical morning. Branch simvastatin 2022-0 Yes [id number] 80mg Take 1 [facility] 80 mg 2-28 tablet by ity of tablet 00:00: mouth at [place] 00 bedtime. Medical Branch levothyroxi 2022-0 Yes [id number] 50ug Take 1 [facility] ne 50 mcg 2-28 tablet by ity o f tablet 00:00: mouth [place] 00 every Medical morning. Branch simvastatin 2022-0 Yes [id number] 80mg Take 1 [facility] 80 mg 2-28 tablet by ity of tablet 00:00: mouth at [place] 00 bedtime. Medical Branch levothyroxi 2022-0 Yes [id number] 50ug Take 1 [facility] ne 50 mcg 2-28 tablet by ity o f tablet 00:00: mouth [place] 00 every Medical morning. Branch simvastatin 2022-0 Yes [id number] 80mg Take 1 [facility] 80 mg 2-28 tablet by ity of tablet 00:00: mouth at [place] 00 bedtime. Medical Branch levothyroxi 2022-0 Yes [id number] 50ug Take 1 [facility] ne 50 mcg 2-28 tablet by ity o f tablet 00:00: mouth [place] 00 every Medical morning. Branch simvastatin 2022-0 Yes [id number] 80mg Take 1 [facility] 80 mg 2-28 tablet by ity of tablet 00:00: mouth at [place] 00 bedtime. Medical Branch levothyroxi 2022-0 Yes [id number] 50ug Take 1 [facility] ne 50 mcg 2-28 tablet by ity o f tablet 00:00: mouth [place] 00 every Medical morning. Branch simvastatin 2022-0 Yes [id number] 80mg Take 1 [facility] 80 mg 2-28 tablet by ity of tablet 00:00: mouth at [place] 00 bedtime. Medical Branch levothyroxi 2022-0 Yes [id number] 50ug Take 1 [facility] ne 50 mcg 2-28 tablet by ity o f tablet 00:00: mouth [place] 00 every Medical morning. Branch simvastatin 2022-0 Yes [id number] 80mg Take 1 [facility] 80 mg 2-28 tablet by ity of tablet 00:00: mouth at [place] 00 bedtime. Medical Branch levothyroxi 2022-0 Yes [id number] 50ug Take 1 [facility] ne 50 mcg 2-28 tablet by ity o f tablet 00:00: mouth [place] 00 every Medical morning. Branch simvastatin 2022-0 Yes [id number] 80mg Take 1 [facility] 80 mg 2-28 tablet by ity of tablet 00:00: mouth at [place] 00 bedtime. Medical Branch levothyroxi 2022-0 Yes [id number] 50ug Take 1 [facility] ne 50 mcg 2-28 tablet by ity o f tablet 00:00: mouth [place] 00 every Medical morning. Branch simvastatin 2022-0 Yes [id number] 80mg Take 1 [facility] 80 mg 2-28 tablet by ity of tablet 00:00: mouth at [place] 00 bedtime. Medical Branch levothyroxi 2022-0 Yes [id number] 50ug Take 1 [facility] ne 50 mcg 2-28 tablet by ity o f tablet 00:00: mouth [place] 00 every Medical morning. Branch simvastatin 2022-0 Yes [id number] 80mg Take 1 [facility] 80 mg 2-28 tablet by ity of tablet 00:00: mouth at [place] 00 bedtime. Medical Branch levothyroxi 2022-0 Yes [id number] 50ug Take 1 [facility] ne 50 mcg 2-28 tablet by ity o f tablet 00:00: mouth [place] 00 every Medical morning. Branch simvastatin 2022-0 Yes [id number] 80mg Take 1 [facility] 80 mg 2-28 tablet by ity of tablet 00:00: mouth at [place] 00 bedtime. Medical Branch levothyroxi 2022-0 Yes [id number] 50ug Take 1 [facility] ne 50 mcg 2-28 tablet by ity o f tablet 00:00: mouth [place] 00 every Medical morning. Branch simvastatin 2022-0 Yes [id number] 80mg Take 1 [facility] 80 mg 2-28 tablet by ity of tablet 00:00: mouth at [place] 00 bedtime. Medical Branch levothyroxi 2022-0 Yes [id number] 50ug Take 1 [facility] ne 50 mcg 2-28 tablet by ity o f tablet 00:00: mouth [place] 00 every Medical morning. Branch simvastatin 2022-0 Yes [id number] 80mg Take 1 [facility] 80 mg 2-28 tablet by ity of tablet 00:00: mouth at [place] 00 bedtime. Medical Branch levothyroxi 2022-0 Yes [id number] 50ug Take 1 [facility] ne 50 mcg 2-28 tablet by ity o f tablet 00:00: mouth [place] 00 every Medical morning. Branch simvastatin 2022-0 Yes [id number] 80mg Take 1 [facility] 80 mg 2-28 tablet by ity of tablet 00:00: mouth at [place] 00 bedtime. Medical Branch levothyroxi 2022-0 Yes [id number] 50ug Take 1 [facility] ne 50 mcg 2-28 tablet by ity o f tablet 00:00: mouth [place] 00 every Medical morning. Branch simvastatin 2022-0 Yes [id number] 80mg Take 1 [facility] 80 mg 2-28 tablet by ity of tablet 00:00: mouth at [place] 00 bedtime. Medical Branch levothyroxi 2022-0 Yes [id number] 50ug Take 1 [facility] ne 50 mcg 2-28 tablet by ity o f tablet 00:00: mouth [place] 00 every Medical morning. Branch simvastatin 2022-0 Yes [id number] 80mg Take 1 [facility] 80 mg 2-28 tablet by ity of tablet 00:00: mouth at [place] 00 bedtime. Medical Branch levothyroxi 2022-0 Yes [id number] 50ug Take 1 [facility] ne 50 mcg 2-28 tablet by ity o f tablet 00:00: mouth [place] 00 every Medical morning. Branch simvastatin 2022-0 Yes [id number] 80mg Take 1 [facility] 80 mg 2-28 tablet by ity of tablet 00:00: mouth at [place] 00 bedtime. Medical Branch levothyroxi 2022-0 Yes [id number] 50ug Take 1 [facility] ne 50 mcg 2-28 tablet by ity o f tablet 00:00: mouth [place] 00 every Medical morning. Branch simvastatin 2022-0 Yes [id number] 80mg Take 1 [facility] 80 mg 2-28 tablet by ity of tablet 00:00: mouth at [place] 00 bedtime. Medical Branch levothyroxi 2022-0 Yes [id number] 50ug Take 1 [facility] ne 50 mcg 2-28 tablet by ity o f tablet 00:00: mouth [place] 00 every Medical morning. Branch simvastatin 0 Yes [id number] 80mg Take 1 [facility] 80 mg 2-28 tablet by ity of tablet 00:00: mouth at [place] 00 bedtime. Medical Branch levothyroxi 2022-0 Yes [id number] 50ug Take 1 [facility] ne 50 mcg 2-28 tablet by ity o f tablet 00:00: mouth [place] 00 every Medical morning. Branch simvastatin 2022-0 Yes [id number] 80mg Take 1 [facility] 80 mg 2-28 tablet by ity of tablet 00:00: mouth at [place] 00 bedtime. Medical Branch levothyroxi 2022-0 Yes [id number] 50ug Take 1 [facility] ne 50 mcg 2-28 tablet by ity o f tablet 00:00: mouth [place] 00 every Medical morning. Branch simvastatin 2022-0 Yes [id number] 80mg Take 1 [facility] 80 mg 2-28 tablet by ity of tablet 00:00: mouth at [place] 00 bedtime. Medical Branch levothyroxi 2022-0 Yes [id number] 50ug Take 1 [facility] ne 50 mcg 2-28 tablet by ity o f tablet 00:00: mouth [place] 00 every Medical morning. Branch simvastatin 2022-0 Yes [id number] 80mg Take 1 [facility] 80 mg 2-28 tablet by ity of tablet 00:00: mouth at [place] 00 bedtime. Medical Branch levothyroxi 2022-0 Yes [id number] 50ug Take 1 [facility] ne 50 mcg 2-28 tablet by ity o f tablet 00:00: mouth [place] 00 every Medical morning. Branch simvastatin 2022-0 Yes [id number] 80mg Take 1 [facility] 80 mg 2-28 tablet by ity of tablet 00:00: mouth at [place] 00 bedtime. Medical Branch levothyroxi 2022-0 Yes [id number] 50ug Take 1 [facility] ne 50 mcg 2-28 tablet by ity o f tablet 00:00: mouth [place] 00 every Medical morning. Branch simvastatin 2022-0 Yes [id number] 80mg Take 1 [facility] 80 mg 2-28 tablet by ity of tablet 00:00: mouth at [place] 00 bedtime. Medical Branch levothyroxi 2022-0 Yes [id number] 50ug Take 1 [facility] ne 50 mcg 2-28 tablet by ity o f tablet 00:00: mouth [place] 00 every Medical morning. Branch simvastatin 2022-0 Yes [id number] 80mg Take 1 [facility] 80 mg 2-28 tablet by ity of tablet 00:00: mouth at [place] 00 bedtime. Medical Branch levothyroxi 2022-0 Yes [id number] 50ug Take 1 [facility] ne 50 mcg 2-28 tablet by ity o f tablet 00:00: mouth [place] 00 every Medical morning. Branch simvastatin 2022-0 Yes [id number] 80mg Take 1 [facility] 80 mg 2-28 tablet by ity of tablet 00:00: mouth at [place] 00 bedtime. Medical Branch levothyroxi 2022-0 Yes [id number] 50ug Take 1 [facility] ne 50 mcg 2-28 tablet by ity o f tablet 00:00: mouth [place] 00 every Medical morning. Branch simvastatin 2022-0 Yes [id number] 80mg Take 1 [facility] 80 mg 2-28 tablet by ity of tablet 00:00: mouth at [place] 00 bedtime. Medical Branch levothyroxi 2022-0 Yes [id number] 50ug Take 1 [facility] ne 50 mcg 2-28 tablet by ity o f tablet 00:00: mouth [place] 00 every Medical morning. Branch simvastatin 2022-0 Yes [id number] 80mg Take 1 [facility] 80 mg 2-28 tablet by ity of tablet 00:00: mouth at [place] 00 bedtime. Medical Branch levothyroxi 2022-0 Yes [id number] 50ug Take 1 [facility] ne 50 mcg 2-28 tablet by ity o f tablet 00:00: mouth [place] 00 every Medical morning. Branch simvastatin 2022-0 Yes [id number] 80mg Take 1 [facility] 80 mg 2-28 tablet by ity of tablet 00:00: mouth at [place] 00 bedtime. Medical Branch levothyroxi 2022-0 Yes [id number] 50ug Take 1 [facility] ne 50 mcg 2-28 tablet by ity o f tablet 00:00: mouth [place] 00 every Medical morning. Branch simvastatin 2022-0 Yes [id number] 80mg Take 1 [facility] 80 mg 2-28 tablet by ity of tablet 00:00: mouth at [place] 00 bedtime. Medical Branch levothyroxi 2022-0 Yes [id number] 50ug Take 1 [facility] ne 50 mcg 2-28 tablet by ity o f tablet 00:00: mouth [place] 00 every Medical morning. Branch simvastatin 2022-0 Yes [id number] 80mg Take 1 [facility] 80 mg 2-28 tablet by ity of tablet 00:00: mouth at [place] 00 bedtime. Medical Branch levothyroxi 2022-0 Yes [id number] 50ug Take 1 [facility] ne 50 mcg 2-28 tablet by ity o f tablet 00:00: mouth [place] 00 every Medical morning. Branch simvastatin 2022-0 Yes [id number] 80mg Take 1 [facility] 80 mg 2-28 tablet by ity of tablet 00:00: mouth at [place] 00 bedtime. Medical Branch levothyroxi 2022-0 Yes [id number] 50ug Take 1 [facility] ne 50 mcg 2-28 tablet by ity o f tablet 00:00: mouth [place] 00 every Medical morning. Branch simvastatin 2022-0 Yes [id number] 80mg Take 1 [facility] 80 mg 2-28 tablet by ity of tablet 00:00: mouth at [place] 00 bedtime. Medical Branch levothyroxi 2022-0 Yes [id number] 50ug Take 1 [facility] ne 50 mcg 2-28 tablet by ity o f tablet 00:00: mouth [place] 00 every Medical morning. [place] simvastatin 2022-0 Yes [id number] 80mg Take 1 [facility] 80 mg 2-28 tablet by ity of tablet 00:00: mouth at [place] [address] bedtime. [facility] Branch simvastatin 2022-0 Yes [id number] 80mg Take 1 [facility] 80 mg 2-28 tablet by ity of tablet 00:00: mouth at [place] [address] bedtime. [facility] simvastatin 2022-0 Yes [id number] 80mg Take 1 [facility] 80 mg 2-28 tablet by ity of tablet 00:00: mouth at [place] [address] bedtime. [facility] Branch simvastatin 2022-0 Yes [id number] 80mg Take 1 [facility] 80 mg 2-28 tablet by ity of tablet 00:00: mouth at [place] [address] bedtime. [facility] simvastatin 2022-0 Yes [id number] 80mg Take 1 [facility] 80 mg 2-28 tablet by ity of tablet 00:00: mouth at [place] [address] bedtime. [facility] simvastatin 2022-0 Yes [id number] 80mg Take 1 [facility] 80 mg 2-28 tablet by ity of tablet 00:00: mouth at [place] [address] bedtime. [facility] simvastatin 2022-0 Yes [id number] 80mg Take 1 [facility] 80 mg 2-28 tablet by ity of tablet 00:00: mouth at [place] [address] bedtime. [facility] simvastatin 2022-0 Yes [id number] 80mg Take 1 [facility] 80 mg 2-28 tablet by ity of tablet 00:00: mouth at [place] [address] bedtime. [facility] simvastatin 2022-0 Yes [id number] 80mg Take 1 [facility] 80 mg 2-28 tablet by ity of tablet 00:00: mouth at [place] [address] bedtime. [facility] simvastatin 2022-0 Yes [id number] 80mg Take 1 [facility] 80 mg 2-28 tablet by ity of tablet 00:00: mouth at [place] [address] bedtime. [facility] simvastatin 2022-0 Yes [id number] 80mg Take 1 [facility] 80 mg 2-28 tablet by ity of tablet 00:00: mouth at [place] [address] bedtime. [facility] simvastatin 2022-0 Yes [id number] 80mg Take 1 [facility] 80 mg 2-28 tablet by ity of tablet 00:00: mouth at [place] [address] bedtime. [facility] simvastatin 2022-0 Yes [id number] 80mg Take 1 [facility] 80 mg 2-28 tablet by ity of tablet 00:00: mouth at [place] [address] bedtime. [facility] Branch simvastatin Yes [id number] 80mg Take 1 [facility] 80 mg 2-28 tablet by ity of tablet 00:00: mouth at [place] [address] bedtime. [facility] Branch simvastatin Yes [id number] 80mg Take 1 [facility] 80 mg 2-28 tablet by ity of tablet 00:00: mouth at [place] [address] bedtime. [facility] simvastatin 0 Yes [id number] 80mg Take 1 [facility] 80 mg 2-28 tablet by ity of tablet 00:00: mouth at [place] [address] bedtime. [facility] simvastatin Yes [id number] 80mg Take 1 [facility] 80 mg 2-28 tablet by ity of tablet 00:00: mouth at [place] [address] bedtime. [facility] simvastatin Yes [id number] 80mg Take 1 [facility] 80 mg 2-28 tablet by ity of tablet 00:00: mouth at [place] [address] bedtime. [facility] simvastatin Yes [id number] 80mg Take 1 [facility] 80 mg 2-28 tablet by ity of tablet 00:00: mouth at [place] [address] bedtime. [facility] simvastatin Yes [id number] 80mg Take 1 [facility] 80 mg 2-28 tablet by ity of tablet 00:00: mouth at [place] [address] bedtime. [facility] simvastatin 0 Yes [id number] 80mg Take 1 [facility] 80 mg 2-28 tablet by ity of tablet 00:00: mouth at [place] [address] bedtime. Medical Branch levothyroxi 2022-2022- No [id number] 50ug Take 1 [facility] ne 50 mcg 2-01-09 tablet by ity of tablet 00:00: 00:00 mouth [place] 00 :00 every Medical morning. Branch levothyroxi 2022- No [id number] 50ug Take 1 [facility] ne 50 mcg 2-11 01- tablet by ity of tablet 00:00: 00:00 mouth [place] 00 :00 every Medical morning. Branch adalimumab 0 Yes [id number] 40mg inject 1 [facility] ([place],CF, 2-10 [id number] Pen under i ty of PEN) 40 00:00: the skin [place] mg/0.4 mL 00 every 14 Medica l injection (fourteen) Bran ch days. adalimumab 2023-0 Yes [id number] 40mg inject 1 [facility] ([place],CF, 2-10 [id number] Pen under i ty of PEN) 40 00:00: the skin [place] mg/0.4 mL 00 every 14 Medica l injection (fourteen) Bran ch days. adalimumab 2022-0 Yes [id number] 40mg inject 1 [facility] ([place],CF, 2-10 [id number] Pen under i ty of PEN) 40 00:00: the skin [place] mg/0.4 mL 00 every 14 Medica l injection (fourteen) Bran ch days. adalimumab 2022-0 Yes [id number] 40mg inject 1 [facility] ([place],CF, 2-10 [id number] Pen under i ty of PEN) 40 00:00: the skin [place] mg/0.4 mL 00 every 14 Medica l injection (fourteen) Bran ch days. adalimumab 2022-0 Yes [id number] 40mg inject 1 [facility] ([place],CF, 2-10 [id number] Pen under i ty of PEN) 40 00:00: the skin [place] mg/0.4 mL 00 every 14 Medica l injection (fourteen) Bran ch days. adalimumab 2022-0 Yes [id number] 40mg inject 1 [facility] ([place],CF, 2-10 [id number] Pen under i ty of PEN) 40 00:00: the skin [place] mg/0.4 mL 00 every 14 Medica l injection (fourteen) Bran ch days. adalimumab 2022-0 Yes [id number] 40mg inject 1 [facility] ([place],CF, 2-10 [id number] Pen under i ty of PEN) 40 00:00: the skin [place] mg/0.4 mL 00 every 14 Medica l injection (fourteen) Bran ch days. adalimumab 2022-0 Yes [id number] 40mg inject 1 [facility] ([place],CF, 2-10 [id number] Pen under i ty of PEN) 40 00:00: the skin [place] mg/0.4 mL 00 every 14 Medica l injection (fourteen) Bran ch days. adalimumab 2022-0 Yes [id number] 40mg inject 1 [facility] ([place],CF, 2-10 [id number] Pen under i ty of PEN) 40 00:00: the skin [place] mg/0.4 mL 00 every 14 Medica l injection (fourteen) Bran ch days. adalimumab 2022-0 Yes [id number] 40mg inject 1 [facility] ([place],CF, 2-10 [id number] Pen under i ty of PEN) 40 00:00: the skin [place] mg/0.4 mL 00 every 14 Medica l injection (fourteen) Bran ch days. adalimumab 2023-0 Yes [id number] 40mg inject 1 [facility] ([place],CF, 2-10 [id number] Pen under i ty of PEN) 40 00:00: the skin [place] mg/0.4 mL 00 every 14 Medica l injection (fourteen) Bran ch days. adalimumab 2022-0 Yes [id number] 40mg inject 1 [facility] ([place],CF, 2-10 [id number] Pen under i ty of PEN) 40 00:00: the skin [place] mg/0.4 mL 00 every 14 Medica l injection (fourteen) Bran ch days. adalimumab 2022-0 Yes [id number] 40mg inject 1 [facility] ([place],CF, 2-10 [id number] Pen under i ty of PEN) 40 00:00: the skin [place] mg/0.4 mL 00 every 14 Medica l injection (fourteen) Bran ch days. adalimumab 2022-0 Yes [id number] 40mg inject 1 [facility] ([facility],CF, 2-10 [id number] Pen under i ty of PEN) 40 00:00: the skin [place] mg/0.4 mL 00 every 14 Medica l injection (fourteen) Bran ch days. adalimumab 2022-0 Yes [id number] 40mg inject 1 [facility] ([facility],CF, 2-10 [id number] Pen under i ty of PEN) 40 00:00: the skin [place] mg/0.4 mL 00 every 14 Medica l injection (fourteen) Bran ch days. adalimumab 3-0 Yes [id number] 40mg inject 1 [facility] ([facility],CF, 2-10 [id number] Pen under i ty of PEN) 40 00:00: the skin [place] mg/0.4 mL 00 every 14 Medica l injection (fourteen) Bran ch days. adalimumab 2023-0 Yes [id number] 40mg inject 1 [facility] ([facility],CF, 2-10 [id number] Pen under i ty of PEN) 40 00:00: the skin [place] mg/0.4 mL 00 every 14 Medica l injection (fourteen) Bran ch days. adalimumab 2023-0 Yes [id number] 40mg inject 1 [facility] ([facility],CF, 2-10 [id number] Pen under i ty of PEN) 40 00:00: the skin [place] mg/0.4 mL 00 every 14 Medica l injection (fourteen) Bran ch days. adalimumab 2022-0 Yes [id number] 40mg inject 1 [facility] ([place], 2 [id number] Pen under i ty of PEN) 40 00:00: the skin [place] mg/0.4 mL 00 every 14 Medica l injection (fourteen) Bran ch days. adalimumab 2022-0 Yes [id number] 40mg inject 1 [facility] ([place], 2 [id number] Pen under i ty of PEN) 40 00:00: the skin [place] mg/0.4 mL 00 every 14 Medica l injection (fourteen) Bran ch days. adalimumab 2022-0 Yes [id number] 40mg inject 1 [facility] ([place], 2 [id number] Pen under i ty of PEN) 40 00:00: the skin [place] mg/0.4 mL 00 every 14 Medica l injection (fourteen) Bran ch days. adalimumab 2022-0 Yes [id number] 40mg inject 1 [facility] ([place], 2 [id number] Pen under i ty of PEN) 40 00:00: the skin [place] mg/0.4 mL 00 every 14 Medica l injection (fourteen) Bran ch days. adalimumab 2022-0 Yes [id number] 40mg inject 1 [facility] ([place], 2 [id number] Pen under i ty of PEN) 40 00:00: the skin [place] mg/0.4 mL 00 every 14 Medica l injection (fourteen) Bran ch days. adalimumab 2022-0 2022- No [id number] 40mg inject 1 [facility] ([place], 2 0508 [id number] Pen under ity of PEN) 40 00:00: 00:00 the skin [place] mg/0.4 mL 00 :00 every 14 Medica l injection (fourteen) Bran ch days. aspirin 81 0 Yes 81mg Take 81 mg U nivers mg EC 04 by mouth ity of tablet 09:15: in the [place] [address] morning. Medical Branch simvastatin Yes 80mg Take 80 mg [facility] 80 mg 04 by mouth ity of tablet 09:15: at [place] [address] bedtime. Medical Branch empaglifloz Yes Take by Uni vers in-metformi 1-04 mouth 2 ity o f n 09:15: (two) [place] ([place]) 37 times Medical 5-1,000 mg daily. Branch Tab aspirin 81 2022-0 Yes 81mg Take 81 mg U nivers mg EC 1-04 by mouth ity of tablet 09:15: in the [place] [address] morning. Medical Branch simvastatin 0 Yes 80mg Take 80 mg [facility] 80 mg 1-04 by mouth ity of tablet 09:15: at [place] [address] bedtime. Medical Branch empaglifloz 0 Yes Take by [facility] vers in-metformi 1-04 mouth 2 ity o f n 09:15: (two) [place] ([place]) 37 times Medical 5-1,000 mg daily. Branch Tab aspirin 81 0 Yes 81mg Take 81 mg U nivers mg EC 1-04 by mouth ity of tablet 09:15: in the [place] [address] morning. Medical Branch simvastatin 2022-0 Yes 80mg Take 80 mg [facility] 80 mg 1-04 by mouth ity of tablet 09:15: at [place] [address] bedtime. Medical Branch empaglifloz 0 Yes Take by [facility] vers in-metformi 1-04 mouth 2 ity o f n 09:15: (two) [place] ([place]) 37 times Medical 5-1,000 mg daily. Branch Tab aspirin 81 0 Yes 81mg Take 81 mg U nivers mg EC 1-04 by mouth ity of tablet 09:15: in the [place] [address] morning. Medical Branch simvastatin 0 Yes 80mg Take 80 mg [facility] 80 mg 1-04 by mouth ity of tablet 09:15: at [place] [address] bedtime. Medical Branch empaglifloz 0 Yes Take by [facility] vers in-metformi 1-04 mouth 2 ity o f n 09:15: (two) [place] ([place]) 37 times Medical 5-1,000 mg daily. Branch Tab aspirin 81 2022-0 Yes 81mg Take 81 mg U nivers mg EC 1-04 by mouth ity of tablet 09:15: in the [place] [address] morning. Medical Branch simvastatin 2022-0 Yes 80mg Take 80 mg [facility] 80 mg 1-04 by mouth ity of tablet 09:15: at [place] [address] bedtime. Medical Branch empaglifloz 2023-0 Yes Take by [facility] vers in-metformi 1-04 mouth 2 ity o f n 09:15: (two) [place] ([place]) 37 times Medical 5-1,000 mg daily. Branch Tab aspirin 81 3-0 Yes 81mg Take 81 mg U nivers mg EC 1-04 by mouth ity of tablet 09:15: in the [place] [address] morning. Medical Branch simvastatin 3-0 Yes 80mg Take 80 mg [facility] 80 mg 1-04 by mouth ity of tablet 09:15: at [place] [address] bedtime. Medical Branch empaglifloz 2022-0 Yes Take by [facility] vers in-metformi 1-04 mouth 2 ity o f n 09:15: (two) [place] ([place]) 37 times Medical 5-1,000 mg daily. Branch Tab aspirin 81 2022-0 Yes 81mg Take 81 mg U nivers mg EC 1-04 by mouth ity of tablet 09:15: in the [place] [address] morning. Medical Branch empaglifloz 2022-0 Yes Take by [facility] vers in-metformi 1-04 mouth 2 ity o f n 09:15: (two) [place] ([place]) 37 times Medical 5-1,000 mg daily. Branch Tab aspirin 81 3-0 Yes 81mg Take 81 mg U nivers mg EC 1-04 by mouth ity of tablet 09:15: in the [place] [address] morning. Medical Branch aspirin 81 3-0 Yes 81mg Take 81 mg U nivers mg EC 1-04 by mouth ity of tablet 09:15: in the [place] [address] morning. Medical Branch aspirin 81 2023-0 Yes 81mg Take 81 mg U nivers mg EC 1-04 by mouth ity of tablet 09:15: in the [place] [address] morning. Medical Branch aspirin 81 2023-0 Yes 81mg Take 81 mg U nivers mg EC 1-04 by mouth ity of tablet 09:15: in the [place] [address] morning. Medical Branch aspirin 81 2023-0 Yes 81mg Take 81 mg U nivers mg EC 1-04 by mouth ity of tablet 09:15: in the [place] [address] morning. Medical Branch aspirin 81 2023-0 Yes 81mg Take 81 mg U nivers mg EC 1-04 by mouth ity of tablet 09:15: in the [place] [address] morning. Medical Branch aspirin 81 2023-0 Yes 81mg Take 81 mg U nivers mg EC 1-04 by mouth ity of tablet 09:15: in the [place] 37 morning. Medical Branch aspirin 81 2023-0 Yes 81mg Take 81 mg U nivers mg EC 1-04 by mouth ity of tablet 09:15: in the [place] 37 morning. Medical Branch aspirin 81 2023-0 Yes 81mg Take 81 mg U nivers mg EC 1-04 by mouth ity of tablet 09:15: in the [place] [address] morning. Medical Branch aspirin 81 2023-0 Yes 81mg Take 81 mg U nivers mg EC 1-04 by mouth ity of tablet 09:15: in the [place] 37 morning. Medical Branch aspirin 81 2023-0 Yes 81mg Take 81 mg U nivers mg EC 1-04 by mouth ity of tablet 09:15: in the [place] [address] morning. Medical Branch aspirin 81 2023-0 Yes 81mg Take 81 mg U nivers mg EC 1-04 by mouth ity of tablet 09:15: in the [place] [address] morning. Medical Branch aspirin 81 2023-0 Yes 81mg Take 81 mg [facility] nivers mg EC 1-04 by mouth ity of tablet 09:15: in the [place] [address] morning. Medical Branch aspirin 81 2023-0 Yes 81mg Take 81 mg U nivers mg EC 1-04 by mouth ity of tablet 09:15: in the [place] [address] morning. Medical Branch aspirin 81 2023-0 Yes 81mg Take 81 mg U nivers mg EC 1-04 by mouth ity of tablet 09:15: in the [place] [address] morning. Medical Branch aspirin 81 2023-0 Yes 81mg Take 81 mg U nivers mg EC 1-04 by mouth ity of tablet 09:15: in the [place] [address] morning. Medical Branch aspirin 81 2023-0 Yes 81mg Take 81 mg U nivers mg EC 1-04 by mouth ity of tablet 09:15: in the [place] [address] morning. Medical Branch aspirin 81 2023-0 Yes 81mg Take 81 mg U nivers mg EC 1-04 by mouth ity of tablet 09:15: in the [place] [address] morning. Medical Branch aspirin 81 2023-0 Yes 81mg Take 81 mg U nivers mg EC 1-04 by mouth ity of tablet 09:15: in the [place] [address] morning. Medical Branch aspirin 81 2023-0 Yes 81mg Take 81 mg [facility] nivers mg EC 1-04 by mouth ity of tablet 09:15: in the [place] morning. Medical Branch aspirin 81 2023-0 Yes 81mg Take 81 mg U nivers mg EC 1-04 by mouth ity of tablet 09:15: in the [place] morning. Medical Branch aspirin 81 2023-0 Yes 81mg Take 81 mg U nivers mg EC 1-04 by mouth ity of tablet 09:15: in the [place] [address] morning. Medical Branch aspirin 81 2023-0 Yes 81mg Take 81 mg U nivers mg EC 1-04 by mouth ity of tablet 09:15: in the [place] [address] morning. Medical Branch aspirin 81 2023-0 Yes 81mg Take 81 mg [facility] nivers mg EC 1-04 by mouth ity of tablet 09:15: in the [place] [address] morning. Medical Branch aspirin 81 2023-0 Yes 81mg Take 81 mg U nivers mg EC 1-04 by mouth ity of tablet 09:15: in the [place] [address] morning. Medical Branch aspirin 81 2023-0 Yes 81mg Take 81 mg U nivers mg EC 1-04 by mouth ity of tablet 09:15: in the [place] [address] morning. Medical Branch aspirin 81 2023-0 Yes 81mg Take 81 mg U nivers mg EC 1-04 by mouth ity of tablet 09:15: in the [place] [address] morning. Medical Branch aspirin 81 2023-0 Yes 81mg Take 81 mg U nivers mg EC 1-04 by mouth ity of tablet 09:15: in the [place] [address] morning. Medical Branch aspirin 81 2023-0 Yes 81mg Take 81 mg [facility] nivers mg EC 1-04 by mouth ity of tablet 09:15: in the [place] [address] morning. Medical Branch aspirin 81 2023-0 Yes 81mg Take 81 mg [facility] nivers mg EC 1-04 by mouth ity of tablet 09:15: in the [place] [address] morning. Medical Branch aspirin 81 2023-0 Yes 81mg Take 81 mg [facility] nivers mg EC 1-04 by mouth ity of tablet 09:15: in the [place] [address] morning. Medical Branch aspirin 81 2023-0 Yes 81mg Take 81 mg [facility] nivers mg EC 1-04 by mouth ity of tablet 09:15: in the [place] [address] morning. Medical Branch aspirin 81 2023-0 Yes 81mg Take 81 mg [facility] nivers mg EC 1-04 by mouth ity of tablet 09:15: in the [place] morning. Medical Branch aspirin 81 2023-0 Yes 81mg Take 81 mg U nivers mg EC 1-04 by mouth ity of tablet 09:15: in the [place] morning. Medical Branch aspirin 81 2023-0 Yes 81mg Take 81 mg U nivers mg EC 1-04 by mouth ity of tablet 09:15: in the [place] [facility] morning. Medical Branch aspirin 81 2023-0 Yes 81mg Take 81 mg U nivers mg EC 1-04 by mouth ity of tablet 09:15: in the [place] [facility] morning. [facility] Branch aspirin 81 2023-0 Yes 81mg Take 81 mg U nivers mg EC 1-04 by mouth ity of tablet 09:15: in the [place] [address] morning. Medical Branch aspirin 81 2023-0 Yes 81mg Take 81 mg U nivers mg EC 1-04 by mouth ity of tablet 09:15: in the [place] [address] morning. Medical Branch aspirin 81 2023-0 Yes 81mg Take 81 mg U nivers mg EC 1-04 by mouth ity of tablet 09:15: in the [place] [address] morning. Medical Branch aspirin 81 2023-0 Yes 81mg Take 81 mg U nivers mg EC 1-04 by mouth ity of tablet 09:15: in the [place] [address] morning. Medical Branch aspirin 81 2023-0 Yes 81mg Take 81 mg U nivers mg EC 1-04 by mouth ity of tablet 09:15: in the [place] [address] morning. Medical Branch aspirin 81 2023-0 Yes 81mg Take 81 mg U nivers mg EC 1-04 by mouth ity of tablet 09:15: in the [place] [address] morning. Medical Branch aspirin 81 2023-0 Yes 81mg Take 81 mg U nivers mg EC 1-04 by mouth ity of tablet 09:15: in the [place] [address] morning. Medical Branch aspirin 81 2023-0 Yes 81mg Take 81 mg U nivers mg EC 1-04 by mouth ity of tablet 09:15: in the [place] [address] morning. Medical Branch aspirin 81 2023-0 Yes 81mg Take 81 mg U nivers mg EC 1-04 by mouth ity of tablet 09:15: in the [place] [address] morning. Medical Branch aspirin 81 2023-0 Yes 81mg Take 81 mg U nivers mg EC 1-04 by mouth ity of tablet 09:15: in the [place] [address] morning. Medical Branch aspirin 81 2023-0 Yes 81mg Take 81 mg U nivers mg EC 1-04 by mouth ity of tablet 09:15: in the [place] [address] morning. Medical Branch aspirin 81 2023-0 Yes 81mg Take 81 mg U nivers mg EC 1-04 by mouth ity of tablet 09:15: in the [place] [address] morning. Medical Branch aspirin 81 2023-0 Yes 81mg Take 81 mg U nivers mg EC 1-04 by mouth ity of tablet 09:15: in the [place] [address] morning. Medical Branch aspirin 81 2023-0 Yes 81mg Take 81 mg U nivers mg EC 1-04 by mouth ity of tablet 09:15: in the [place] [address] morning. Medical Branch aspirin 81 2023-0 Yes 81mg Take 81 mg U nivers mg EC 1-04 by mouth ity of tablet 09:15: in the [place] [address] morning. Medical Branch aspirin 81 2023-0 Yes 81mg Take 81 mg U nivers mg EC 1-04 by mouth ity of tablet 09:15: in the [place] [address] morning. Medical Branch aspirin 81 2023-0 Yes 81mg Take 81 mg U nivers mg EC 1-04 by mouth ity of tablet 09:15: in the [place] [address] morning. Medical Branch aspirin 81 2023-0 Yes 81mg Take 81 mg U nivers mg EC 1-04 by mouth ity of tablet 09:15: in the [place] [address] morning. Medical Branch aspirin 81 2023-0 Yes 81mg Take 81 mg U nivers mg EC 1-04 by mouth ity of tablet 09:15: in the [place] [address] morning. Medical Branch celecoxib 2022-0 202- No [id number] 200mg Take 1 [facility] (CELEBREX) 03-09 6 capsule by it y of 200 mg 00:00: 04:59 mouth in [place] capsule 00 :00 the Medical morning Branch for 30 days. celecoxib 2022-0 202- No [id number] 200mg Take 1 [facility] (CELEBREX) 03-09 6 capsule by it y of 200 mg 00:00: 04:59 mouth in [place] capsule 00 :00 the Medical morning Branch for 30 days. celecoxib 2022-0 2021- No [id number] 200mg Take 1 [facility] (CELEBREX) 03-09 6 capsule by it y of 200 mg 00:00: 04:59 mouth in [place] capsule 00 :00 the Medical morning Branch for 30 days. celecoxib 2021- No [id number] 200mg Take 1 [facility] (CELEBREX) 03-09 6 capsule by it y of 200 mg 00:00: 04:59 mouth in [place] capsule 00 :00 the Medical morning Branch for 30 days. adalimumab Yes [id number] 40mg inject 1 [facility] (HUMIRA,CF, 03-07 [id number] Pen under i ty of PEN) 40 00:00: the skin [place] mg/0.4 mL 00 every 14 Medica l injection (fourteen) Bran ch days. adalimumab Yes [id number] 40mg inject 1 [facility] (HUMIRA,CF, 03-07 [id number] Pen under i ty of PEN) 40 00:00: the skin [place] mg/0.4 mL 00 every 14 Medica l injection (fourteen) Bran ch days. adalimumab Yes [id number] 40mg inject 1 [facility] (HUMIRA,CF, 03-07 [id number] Pen under i ty of PEN) 40 00:00: the skin [place] mg/0.4 mL 00 every 14 Medica l injection (fourteen) Bran ch days. adalimumab Yes [id number] 40mg inject 1 [facility] (HUMIRA,CF, 03-07 [id number] Pen under i ty of PEN) 40 00:00: the skin [place] mg/0.4 mL 00 every 14 Medica l injection (fourteen) Bran ch days. adalimumab Yes [id number] 40mg inject 1 [facility] (HUMIRA,CF, 03-07 [id number] Pen under i ty of PEN) 40 00:00: the skin [place] mg/0.4 mL 00 every 14 Medica l injection (fourteen) Bran ch days. adalimumab 2021-0 Yes [id number] 40mg inject 1 [facility] (HUMIRA,CF, 03-07 [id number] Pen under i ty of PEN) 40 00:00: the skin [place] mg/0.4 mL 00 every 14 Medica l injection (fourteen) Bran ch days. adalimumab 2021-0 Yes [id number] 40mg inject 1 [facility] (HUMIRA,CF, 03-07 [id number] Pen under i ty of PEN) 40 00:00: the skin [place] mg/0.4 mL 00 every 14 Medica l injection (fourteen) Bran ch days. adalimumab 2021-0 Yes [id number] 40mg inject 1 [facility] ([facility]UMIRA,, 8 [id number] Pen under i ty of PEN) 40 00:00: the skin [place] mg/0.4 mL 00 every 14 Medica l injection (fourteen) Bran ch days. adalimumab 2021-0 Yes [id number] 40mg inject 1 [facility] (HUMIRA,, 8 [id number] Pen under i ty of PEN) 40 00:00: the skin [place] mg/0.4 mL 00 every 14 Medica l injection (fourteen) Bran ch days. adalimumab 2021-0 Yes [id number] 40mg inject 1 [facility] (HUMIRA,, 8 [id number] Pen under i ty of PEN) 40 00:00: the skin [place] mg/0.4 mL 00 every 14 Medica l injection (fourteen) Bran ch days. adalimumab 2021-0 Yes [id number] 40mg inject 1 [facility] (HUMIRA,, 03-07 [id number] Pen under i ty of PEN) 40 00:00: the skin [place] mg/0.4 mL 00 every 14 Medica l injection (fourteen) Bran ch days. adalimumab 2021-0 Yes [id number] 40mg inject 1 [facility] ([facility]UM[facility],, 8 [id number] Pen under i ty of PEN) 40 00:00: the skin [place] mg/0.4 mL 00 every 14 Medica l injection (fourteen) Bran ch days. adalimumab 2021-0 Yes [id number] 40mg inject 1 [facility] (HUMIRA,, 8 [id number] Pen under i ty of PEN) 40 00:00: the skin [place] mg/0.4 mL 00 every 14 Medica l injection (fourteen) Bran ch days. adalimumab 2-0 Yes [id number] 40mg inject 1 [facility] (HUMIRA,, 8 [id number] Pen under i ty of PEN) 40 00:00: the skin [place] mg/0.4 mL 00 every 14 Medica l injection (fourteen) Bran ch days. adalimumab 2-0 Yes [id number] 40mg inject 1 [facility] ([facility],, 8 [id number] Pen under i ty of PEN) 40 00:00: the skin [place] mg/0.4 mL 00 every 14 Medica l injection (fourteen) Bran ch days. adalimumab 2021-0 Yes [id number] 40mg inject 1 [facility] ([facility]UMIR[facility],, 8 [id number] Pen under i ty of PEN) 40 00:00: the skin [place] mg/0.4 mL 00 every 14 Medica l injection (fourteen) Bran ch days. adalimumab 2021-0 Yes [id number] 40mg inject 1 [facility] (HUMIRA,, 8 [id number] Pen under i ty of PEN) 40 00:00: the skin [place] mg/0.4 mL 00 every 14 Medica l injection (fourteen) Bran ch days. adalimumab 2021-0 Yes [id number] 40mg inject 1 [facility] (HUMIRA,, 8 [id number] Pen under i ty of PEN) 40 00:00: the skin [place] mg/0.4 mL 00 every 14 Medica l injection (fourteen) Bran ch days. adalimumab 2021-0 Yes [id number] 40mg inject 1 [facility] (HUMIRA,, 03-07 [id number] Pen under i ty of PEN) 40 00:00: the skin [place] mg/0.4 mL 00 every 14 Medica l injection (fourteen) Bran ch days. adalimumab 2021-0 Yes [id number] 40mg inject 1 [facility] (HUMIRA,, 8 [id number] Pen under i ty of PEN) 40 00:00: the skin [place] mg/0.4 mL 00 every 14 Medica l injection (fourteen) Bran ch days. adalimumab 2021-0 Yes [id number] 40mg inject 1 [facility] (HUMIRA,, 8 [id number] Pen under i ty of PEN) 40 00:00: the skin [place] mg/0.4 mL 00 every 14 Medica l injection (fourteen) Bran ch days. adalimumab 2021-0 Yes [id number] 40mg inject 1 [facility] (HUMIRA,, 8 [id number] Pen under i ty of PEN) 40 00:00: the skin [place] mg/0.4 mL 00 every 14 Medica l injection (fourteen) Bran ch days. adalimumab 2-0 Yes [id number] 40mg inject 1 [facility] (HUMIRA,, 8 [id number] Pen under i ty of PEN) 40 00:00: the skin [place] mg/0.4 mL 00 every 14 Medica l injection (fourteen) Bran ch days. adalimumab 2022-0 Yes [id number] 40mg inject 1 [facility] (HUMIRA,, 03-07 [id number] Pen under i ty of PEN) 40 00:00: the skin [place] mg/0.4 mL 00 every 14 Medica l injection (fourteen) Bran ch days. adalimumab 2021-0 Yes [id number] 40mg inject 1 [facility] (HUMIRA,, 03-07 [id number] Pen under i ty of PEN) 40 00:00: the skin [place] mg/0.4 mL 00 every 14 Medica l injection (fourteen) Bran ch days. adalimumab 2021-0 Yes [id number] 40mg inject 1 [facility] (HUMIRA,, 03-07 [id number] Pen under i ty of PEN) 40 00:00: the skin [place] mg/0.4 mL 00 every 14 Medica l injection (fourteen) Bran ch days. adalimumab 2021-0 2023- No [id number] 40mg inject 1 [facility] ([place],, 03-07 [id number] Pen under ity of PEN) 40 00:00: 00:00 the skin [place] mg/0.4 mL 00 :00 every 14 Medica l injection (fourteen) Bran ch days. blood sugar 2022-0 Yes [id number] Use Daily. [facility] diagnostic 8-14 Dx E11.9 ity o f (ACCU-CHEK 00:00: [place] GUIDE TEST 00 Medical STRIPS) Branch strip blood sugar 2022-0 Yes [id number] Use Daily. [facility] diagnostic 8-14 Dx E11.9 ity o f (ACCU-CHEK 00:00: [place] GUIDE TEST 00 Medical STRIPS) Branch strip blood sugar 2022-0 Yes [id number] Use Daily. [facility] diagnostic 8-14 Dx E11.9 ity o f (ACCU-CHEK 00:00: [place] GUIDE TEST 00 Medical STRIPS) Branch strip blood sugar 2022-0 Yes [id number] Use Daily. [facility] diagnostic 8-14 Dx E11.9 ity o f (ACCU-CHEK 00:00: [place] GUIDE TEST 00 Medical STRIPS) Branch strip blood sugar 2022-0 Yes [id number] Use Daily. [facility] diagnostic 8-14 Dx E11.9 ity o f (ACCU-CHEK 00:00: [place] GUIDE TEST 00 Medical STRIPS) Branch strip blood sugar 2022-0 Yes [id number] Use Daily. [facility] diagnostic 8-14 Dx E11.9 ity o f (ACCU-CHEK 00:00: [place] GUIDE TEST 00 Medical STRIPS) Branch strip blood sugar 2022-0 Yes [id number] Use Daily. [facility] diagnostic 8-14 Dx E11.9 ity o f (ACCU-CHEK 00:00: [place] GUIDE TEST 00 Medical STRIPS) Branch strip blood sugar 2022-0 Yes [id number] Use Daily. [facility] diagnostic 8-14 Dx E11.9 ity o f (ACCU-CHEK 00:00: [place] GUIDE TEST 00 Medical STRIPS) Branch strip blood sugar 2022-0 Yes [id number] Use Daily. [facility] diagnostic 8-14 Dx E11.9 ity o f (ACCU-CHEK 00:00: [place] GUIDE TEST 00 Medical STRIPS) Branch strip blood sugar 2022-0 Yes [id number] Use Daily. [facility] diagnostic 8-14 Dx E11.9 ity o f (ACCU-CHEK 00:00: [place] GUIDE TEST 00 Medical STRIPS) Branch strip blood sugar 2022-0 Yes [id number] Use Daily. [facility] diagnostic 8-14 Dx E11.9 ity o f (ACCU-CHEK 00:00: [place] GUIDE TEST 00 Medical STRIPS) Branch strip blood sugar 2022-0 Yes [id number] Use Daily. [facility] diagnostic 8-14 Dx E11.9 ity o f (ACCU-CHEK 00:00: [place] GUIDE TEST 00 Medical STRIPS) Branch strip blood sugar 2022-0 Yes [id number] Use Daily. [facility] diagnostic 8-14 Dx E11.9 ity o f (ACCU-CHEK 00:00: [place] GUIDE TEST 00 Medical STRIPS) Branch strip blood sugar 2022-0 Yes [id number] Use Daily. [facility] diagnostic 8-14 Dx E11.9 ity o f (ACCU-CHEK 00:00: [place] GUIDE TEST 00 Medical STRIPS) Branch strip blood sugar 2022-0 Yes [id number] Use Daily. [facility] diagnostic 8-14 Dx E11.9 ity o f (ACCU-CHEK 00:00: [place] GUIDE TEST 00 Medical STRIPS) Branch strip blood sugar 2022-0 Yes [id number] Use Daily. [facility] diagnostic 8-14 Dx E11.9 ity o f (ACCU-CHEK 00:00: [place] GUIDE TEST 00 Medical STRIPS) Branch strip blood sugar 2022-0 Yes [id number] Use Daily. [facility] diagnostic 8-14 Dx E11.9 ity o f (ACCU-CHEK 00:00: [place] GUIDE TEST 00 Medical STRIPS) Branch strip blood sugar 2022-0 Yes [id number] Use Daily. [facility] diagnostic 8-14 Dx E11.9 ity o f (ACCU-CHEK 00:00: [place] GUIDE TEST 00 Medical STRIPS) Branch strip blood sugar 2022-0 Yes [id number] Use Daily. [facility] diagnostic 8-14 Dx E11.9 ity o f (ACCU-CHEK 00:00: [place] GUIDE TEST 00 Medical STRIPS) Branch strip blood sugar 2022-0 Yes [id number] Use Daily. [facility] diagnostic 8-14 Dx E11.9 ity o f (ACCU-CHEK 00:00: [place] GUIDE TEST 00 Medical STRIPS) Branch strip blood sugar 2022-0 Yes [id number] Use Daily. [facility] diagnostic 8-14 Dx E11.9 ity o f (ACCU-CHEK 00:00: [place] GUIDE TEST 00 Medical STRIPS) Branch strip blood sugar 2022-0 Yes [id number] Use Daily. [facility] diagnostic 8-14 Dx E11.9 ity o f (ACCU-CHEK 00:00: [place] GUIDE TEST 00 Medical STRIPS) Branch strip blood sugar 2022-0 Yes [id number] Use Daily. [facility] diagnostic 8-14 Dx E11.9 ity o f (ACCU-CHEK 00:00: [place] GUIDE TEST 00 Medical STRIPS) Branch strip blood sugar 2022-0 Yes [id number] Use Daily. [facility] diagnostic 8-14 Dx E11.9 ity o f (ACCU-CHEK 00:00: [place] GUIDE TEST 00 Medical STRIPS) Branch strip blood sugar 2022-0 Yes [id number] Use Daily. [facility] diagnostic 8-14 Dx E11.9 ity o f (ACCU-CHEK 00:00: [place] GUIDE TEST 00 Medical STRIPS) Branch strip blood sugar 2022-0 Yes [id number] Use Daily. [facility] diagnostic 8-14 Dx E11.9 ity o f (ACCU-CHEK 00:00: [place] GUIDE TEST 00 Medical STRIPS) Branch strip blood sugar 2022-0 Yes [id number] Use Daily. [facility] diagnostic 8-14 Dx E11.9 ity o f (ACCU-CHEK 00:00: [place] GUIDE TEST 00 Medical STRIPS) Branch strip blood sugar 2022-0 Yes [id number] Use Daily. [facility] diagnostic 8-14 Dx E11.9 ity o f (ACCU-CHEK 00:00: [place] GUIDE TEST 00 Medical STRIPS) Branch strip blood sugar 2022-0 Yes [id number] Use Daily. [facility] diagnostic 8-14 Dx E11.9 ity o f (ACCU-CHEK 00:00: [place] GUIDE TEST 00 Medical STRIPS) Branch strip blood sugar 2022-0 Yes [id number] Use Daily. [facility] diagnostic 8-14 Dx E11.9 ity o f (ACCU-CHEK 00:00: [place] GUIDE TEST 00 Medical STRIPS) Branch strip blood sugar 2022-0 Yes [id number] Use Daily. [facility] diagnostic 8-14 Dx E11.9 ity o f (ACCU-CHEK 00:00: [place] GUIDE TEST 00 Medical STRIPS) Branch strip blood sugar 2022-0 Yes [id number] Use Daily. [facility] diagnostic 8-14 Dx E11.9 ity o f (ACCU-CHEK 00:00: [place] GUIDE TEST 00 Medical STRIPS) Branch strip blood sugar 2022-0 Yes [id number] Use Daily. [facility] diagnostic 8-14 Dx E11.9 ity o f (ACCU-CHEK 00:00: [place] GUIDE TEST 00 Medical STRIPS) Branch strip blood sugar 2022-0 Yes [id number] Use Daily. [facility] diagnostic 8-14 Dx E11.9 ity o f (ACCU-CHEK 00:00: [place] GUIDE TEST 00 Medical STRIPS) Branch strip blood sugar 2022-0 Yes [id number] Use Daily. [facility] diagnostic 8-14 Dx E11.9 ity o f (ACCU-CHEK 00:00: [place] GUIDE TEST 00 Medical STRIPS) Branch strip blood sugar 2022-0 Yes [id number] Use Daily. [facility] diagnostic 8-14 Dx E11.9 ity o f (ACCU-CHEK 00:00: [place] GUIDE TEST 00 Medical STRIPS) Branch strip blood sugar 2022-0 Yes [id number] Use Daily. [facility] diagnostic 8-14 Dx E11.9 ity o f (ACCU-CHEK 00:00: [place] GUIDE TEST 00 Medical STRIPS) Branch strip blood sugar 2022-0 Yes [id number] Use Daily. [facility] diagnostic 8-14 Dx E11.9 ity o f (ACCU-CHEK 00:00: [place] GUIDE TEST 00 Medical STRIPS) Branch strip blood sugar 2022-0 Yes [id number] Use Daily. [facility] diagnostic 8-14 Dx E11.9 ity o f (ACCU-CHEK 00:00: [place] GUIDE TEST 00 Medical STRIPS) Branch strip blood sugar 2022-0 Yes [id number] Use Daily. [facility] diagnostic 8-14 Dx E11.9 ity o f (ACCU-CHEK 00:00: [place] GUIDE TEST 00 Medical STRIPS) Branch strip blood sugar 2022-0 Yes [id number] Use Daily. [facility] diagnostic 8-14 Dx E11.9 ity o f (ACCU-CHEK 00:00: [place] GUIDE TEST 00 Medical STRIPS) Branch strip blood sugar 2022-0 Yes [id number] Use Daily. [facility] diagnostic 8-14 Dx E11.9 ity o f (ACCU-CHEK 00:00: [place] GUIDE TEST 00 Medical STRIPS) Branch strip blood sugar 2022-0 Yes [id number] Use Daily. [facility] diagnostic 8-14 Dx E11.9 ity o f (ACCU-CHEK 00:00: [place] GUIDE TEST 00 Medical STRIPS) Branch strip blood sugar 2022-0 Yes [id number] Use Daily. [facility] diagnostic 8-14 Dx E11.9 ity o f (ACCU-CHEK 00:00: [place] GUIDE TEST 00 Medical STRIPS) Branch strip blood sugar 2022-0 Yes [id number] Use Daily. [facility] diagnostic 8-14 Dx E11.9 ity o f (ACCU-CHEK 00:00: [place] GUIDE TEST 00 Medical STRIPS) Branch strip blood sugar 2022-0 Yes [id number] Use Daily. [facility] diagnostic 8-14 Dx E11.9 ity o f (ACCU-CHEK 00:00: [place] GUIDE TEST 00 Medical STRIPS) Branch strip blood sugar 2022-0 Yes [id number] Use Daily. [facility] diagnostic 8-14 Dx E11.9 ity o f (ACCU-CHEK 00:00: [place] GUIDE TEST 00 Medical STRIPS) Branch strip blood sugar 2022-0 Yes [id number] Use Daily. [facility] diagnostic 8-14 Dx E11.9 ity o f (ACCU-CHEK 00:00: [place] GUIDE TEST 00 Medical STRIPS) Branch strip blood sugar 2022-0 Yes [id number] Use Daily. [facility] diagnostic 8-14 Dx E11.9 ity o f (ACCU-CHEK 00:00: [place] GUIDE TEST 00 Medical STRIPS) Branch strip blood sugar 2022-0 Yes [id number] Use Daily. [facility] diagnostic 8-14 Dx E11.9 ity o f (ACCU-CHEK 00:00: [place] GUIDE TEST 00 Medical STRIPS) Branch strip blood sugar 2022-0 Yes [id number] Use Daily. [facility] diagnostic 8-14 Dx E11.9 ity o f (ACCU-CHEK 00:00: [place] GUIDE TEST 00 Medical STRIPS) Branch strip blood sugar 2022-0 Yes [id number] Use Daily. [facility] diagnostic 8-14 Dx E11.9 ity o f (ACCU-CHEK 00:00: [place] GUIDE TEST 00 Medical STRIPS) Branch strip blood sugar 2022-0 Yes [id number] Use Daily. [facility] diagnostic 8-14 Dx E11.9 ity o f (ACCU-CHEK 00:00: [place] GUIDE TEST 00 Medical STRIPS) Branch strip blood sugar 2022-0 Yes [id number] Use Daily. [facility] diagnostic 8-14 Dx E11.9 ity o f (ACCU-CHEK 00:00: [place] GUIDE TEST 00 Medical STRIPS) Branch strip blood sugar 2022-0 Yes [id number] Use Daily. [facility] diagnostic 8-14 Dx E11.9 ity o f (ACCU-CHEK 00:00: [place] GUIDE TEST 00 Medical STRIPS) Branch strip blood sugar 2022-0 Yes [id number] Use Daily. [facility] diagnostic 8-14 Dx E11.9 ity o f (ACCU-CHEK 00:00: [place] GUIDE TEST 00 Medical STRIPS) Branch strip blood sugar 2022-0 Yes [id number] Use Daily. [facility] diagnostic 8-14 Dx E11.9 ity o f (ACCU-CHEK 00:00: [place] GUIDE TEST 00 Medical STRIPS) Branch strip blood sugar 2022-0 Yes [id number] Use Daily. [facility] diagnostic 8-14 Dx E11.9 ity o f (ACCU-CHEK 00:00: [place] GUIDE TEST 00 Medical STRIPS) Branch strip blood sugar 2022-0 Yes [id number] Use Daily. [facility] diagnostic 8-14 Dx E11.9 ity o f (ACCU-CHEK 00:00: [place] GUIDE TEST 00 Medical STRIPS) Branch strip blood sugar 2022-0 Yes [id number] Use Daily. [facility] diagnostic 8-14 Dx E11.9 ity o f (ACCU-CHEK 00:00: [place] GUIDE TEST 00 Medical STRIPS) Branch strip blood sugar 2022-0 Yes [id number] Use Daily. [facility] diagnostic 8-14 Dx E11.9 ity o f (ACCU-CHEK 00:00: [place] GUIDE TEST 00 Medical STRIPS) Branch strip blood sugar 2022-0 Yes [id number] Use Daily. [facility] diagnostic 8-14 Dx E11.9 ity o f (ACCU-CHEK 00:00: [place] GUIDE TEST 00 Medical STRIPS) Branch strip blood sugar 2022-0 Yes [id number] Use Daily. [facility] diagnostic 8-14 Dx E11.9 ity o f (ACCU-CHEK 00:00: [place] GUIDE TEST 00 Medical STRIPS) Branch strip blood sugar 2022-0 Yes [id number] Use Daily. [facility] diagnostic 8-14 Dx E11.9 ity o f (ACCU-CHEK 00:00: [place] GUIDE TEST 00 Medical STRIPS) Branch strip blood sugar 2022-0 Yes [id number] Use Daily. [facility] diagnostic 8-14 Dx E11.9 ity o f (ACCU-CHEK 00:00: [place] GUIDE TEST 00 Medical STRIPS) Branch strip blood sugar 2022-0 Yes [id number] Use Daily. [facility] diagnostic 8-14 Dx E11.9 ity o f (ACCU-CHEK 00:00: [place] GUIDE TEST 00 Medical STRIPS) Branch strip blood sugar 2022-0 Yes [id number] Use Daily. [facility] diagnostic 8-14 Dx E11.9 ity o f (ACCU-CHEK 00:00: [place] GUIDE TEST 00 Medical STRIPS) Branch strip blood sugar 2022-0 Yes [id number] Use Daily. [facility] diagnostic 8-14 Dx E11.9 ity o f (ACCU-CHEK 00:00: [place] GUIDE TEST 00 Medical STRIPS) Branch strip blood sugar 2022-0 Yes [id number] Use Daily. [facility] diagnostic 8-14 Dx E11.9 ity o f (ACCU-CHEK 00:00: [place] GUIDE TEST 00 Medical STRIPS) Branch strip blood sugar 2022-0 Yes [id number] Use Daily. [facility] diagnostic 8-14 Dx E11.9 ity o f (ACCU-CHEK 00:00: [place] GUIDE TEST 00 Medical STRIPS) Branch strip blood sugar 2022-0 Yes [id number] Use Daily. [facility] diagnostic 8-14 Dx E11.9 ity o f (ACCU-CHEK 00:00: [place] GUIDE TEST 00 Medical STRIPS) Branch strip blood sugar 2022-0 Yes [id number] Use Daily. [facility] diagnostic 8-14 Dx E11.9 ity o f (ACCU-CHEK 00:00: [place] GUIDE TEST 00 Medical STRIPS) Branch strip blood sugar 2022-0 Yes [id number] Use Daily. [facility] diagnostic 8-14 Dx E11.9 ity o f (ACCU-CHEK 00:00: [place] GUIDE TEST 00 Medical STRIPS) Branch strip blood sugar 2022-0 Yes [id number] Use Daily. [facility] diagnostic 8-14 Dx E11.9 ity o f (ACCU-CHEK 00:00: [place] GUIDE TEST 00 Medical STRIPS) Branch strip blood sugar 2022-0 Yes [id number] Use Daily. [facility] diagnostic 8-14 Dx E11.9 ity o f (ACCU-CHEK 00:00: [place] GUIDE TEST 00 Medical STRIPS) Branch strip blood sugar 2022-0 Yes [id number] Use Daily. [facility] diagnostic 8-14 Dx E11.9 ity o f (ACCU-CHEK 00:00: [place] GUIDE TEST 00 Medical STRIPS) Branch strip blood sugar 2022-0 Yes [id number] Use Daily. [facility] diagnostic 8-14 Dx E11.9 ity o f (ACCU-CHEK 00:00: [place] GUIDE TEST 00 Medical STRIPS) Branch strip blood sugar 2022-0 Yes [id number] Use Daily. [facility] diagnostic 8-14 Dx E11.9 ity o f (ACCU-CHEK 00:00: [place] GUIDE TEST 00 Medical STRIPS) Branch strip blood sugar 2022-0 Yes [id number] Use Daily. [facility] diagnostic 8-14 Dx E11.9 ity o f (ACCU-CHEK 00:00: [place] GUIDE TEST 00 Medical STRIPS) Branch strip blood sugar 2022-0 Yes [id number] Use Daily. [facility] diagnostic 8-14 Dx E11.9 ity o f (ACCU-CHEK 00:00: [place] GUIDE TEST 00 Medical STRIPS) Branch strip blood sugar 2022-0 Yes [id number] Use Daily. [facility] diagnostic 8-14 Dx E11.9 ity o f (ACCU-CHEK 00:00: [place] GUIDE TEST 00 Medical STRIPS) Branch strip blood sugar 2022-0 Yes [id number] Use Daily. [facility] diagnostic 8-14 Dx E11.9 ity o f (ACCU-CHEK 00:00: [place] GUIDE TEST 00 Medical STRIPS) Branch strip blood sugar 2022-0 Yes [id number] Use Daily. [facility] diagnostic 8-14 Dx E11.9 ity o f (ACCU-CHEK 00:00: [place] GUIDE TEST 00 Medical STRIPS) Branch strip blood sugar 2022-0 Yes [id number] Use Daily. [facility] diagnostic 8-14 Dx E11.9 ity o f (ACCU-CHEK 00:00: [place] GUIDE TEST 00 Medical STRIPS) Branch strip blood sugar 2022-0 Yes [id number] Use Daily. [facility] diagnostic 8-14 Dx E11.9 ity o f (ACCU-CHEK 00:00: [place] GUIDE TEST 00 Medical STRIPS) Branch strip blood sugar 2022-0 Yes [id number] Use Daily. [facility] diagnostic 8-14 Dx E11.9 ity o f (ACCU-CHEK 00:00: [place] GUIDE TEST 00 Medical STRIPS) Branch strip blood sugar 2022-0 Yes [id number] Use Daily. [facility] diagnostic 8-14 Dx E11.9 ity o f (ACCU-CHEK 00:00: [place] GUIDE TEST 00 Medical STRIPS) Branch strip blood sugar 2022-0 Yes [id number] Use Daily. [facility] diagnostic 8-14 Dx E11.9 ity o f (ACCU-CHEK 00:00: [place] GUIDE TEST 00 Medical STRIPS) Branch strip blood sugar 2022-0 Yes [id number] Use Daily. [facility] diagnostic 8-14 Dx E11.9 ity o f (ACCU-CHEK 00:00: [place] GUIDE TEST 00 Medical STRIPS) Branch strip SIMVASTATIN 2022-0 Yes [id number] 40mg TAKE 1 [facility] 40 mg 8-08 TABLET BY ity of tablet 00:00: [address] [address] [facility] 2022-0 Yes [id number] 40mg TAKE 1 [facility] 40 mg 8-08 TABLET BY ity of tablet 00:00: MOUTH AT [address] [facility] SIMVASTATIN 2022-0 Yes [id number] 40mg TAKE 1 [facility] 40 mg 8-08 TABLET BY ity of tablet 00:00: MOUTH AT [address] SIMVASTATIN 2022-0 Yes [id number] 40mg TAKE 1 [facility] 40 mg 8-08 TABLET BY ity of tablet 00:00: MOUTH AT [address] SIMVASTATIN 2022-0 Yes [id number] 40mg TAKE 1 [facility] 40 mg 8-08 TABLET BY ity of tablet 00:00: MOUTH AT [address] SIMVASTATIN 2021-0 Yes [id number] 40mg TAKE 1 [facility] 40 mg 8-08 TABLET BY ity of tablet 00:00: MOUTH AT [address] SIMVASTATIN 2021-0 Yes [id number] 40mg TAKE 1 [facility] 40 mg 8-08 TABLET BY ity of tablet 00:00: MOUTH AT [address] SIMVASTATIN 2021-0 Yes [id number] 40mg TAKE 1 [facility] 40 mg 8-08 TABLET BY ity of tablet 00:00: MOUTH AT [address] SIMVASTATIN 2021-0 Yes [id number] 40mg TAKE 1 [facility] 40 mg 8-08 TABLET BY ity of tablet 00:00: MOUTH AT [address] SIMVASTATIN 2021-0 Yes [id number] 40mg TAKE 1 [facility] 40 mg 8-08 TABLET BY ity of tablet 00:00: MOUTH AT [address] SIMVASTATIN 2021-0 Yes [id number] 40mg TAKE 1 [facility] 40 mg 8-08 TABLET BY ity of tablet 00:00: MOUTH AT [address] SIMVASTATIN 2021-0 Yes [id number] 40mg TAKE 1 [facility] 40 mg 8-08 TABLET BY ity of tablet 00:00: MOUTH AT [address] SIMVASTATIN 2021-0 Yes [id number] 40mg TAKE 1 [facility] 40 mg 8-08 TABLET BY ity of tablet 00:00: MOUTH AT [address] SIMVASTATIN 2021-0 Yes [id number] 40mg TAKE 1 [facility] 40 mg 8-08 TABLET BY ity of tablet 00:00: MOUTH AT [address] SIMVASTATIN 2021-0 Yes [id number] 40mg TAKE 1 [facility] 40 mg 8-08 TABLET BY ity of tablet 00:00: MOUTH AT [address] SIMVASTATIN 2021-0 Yes [id number] 40mg TAKE 1 [facility] 40 mg 8-08 TABLET BY ity of tablet 00:00: MOUTH AT [address] SIMVASTATIN 2021-0 Yes [id number] 40mg TAKE 1 [facility] 40 mg 8-08 TABLET BY ity of tablet 00:00: MOUTH AT [address] SIMVASTATIN 2021-0 Yes [id number] 40mg TAKE 1 [facility] 40 mg 8-08 TABLET BY ity of tablet 00:00: MOUTH AT [address] SIMVASTATIN 2021-0 Yes [id number] 40mg TAKE 1 [facility] 40 mg 8-08 TABLET BY ity of tablet 00:00: MOUTH AT [place] [facility] SIMVASTATIN 2021-0 Yes [id number] 40mg TAKE 1 [facility] 40 mg 8-08 TABLET BY ity of tablet 00:00: MOUTH AT [place] [facility] SIMVASTATIN 2021-0 Yes [id number] 40mg TAKE 1 [facility] 40 mg 8-08 TABLET BY ity of tablet 00:00: MOUTH AT [place] [facility] SIMVASTATIN 2021-0 Yes [id number] 40mg TAKE 1 [facility] 40 mg 8-08 TABLET BY ity of tablet 00:00: MOUTH AT [address] SIMVASTATIN 2021-0 Yes [id number] 40mg TAKE 1 [facility] 40 mg 8-08 TABLET BY ity of tablet 00:00: MOUTH AT [address] SIMVASTATIN 2021-0 2023- No [id number] 40mg TAKE 1 [facility] 40 mg 8-08 01-04 TABLET BY ity of tablet 00:00: 00:00 MOUTH AT [place] 00 :00 [facility] SIMVASTATIN 2021-0 2023- No [id number] 40mg TAKE 1 [facility] 40 mg 8-08 01-04 TABLET BY ity of tablet 00:00: 00:00 MOUTH AT [place] 00 :00 [facility] acetaminoph 2021-0 Yes [id number]{tbl} Take 2 [...] mouth 2 ity of tablet 00:00: (two) [place] 00 times Medical daily as Branch needed. [...] mouth 2 ity of tablet 00:00: (two) [place] 00 times Medical daily as Branch needed. [...] mouth 2 ity of tablet 00:00: (two) [place] 00 times Medical daily as Branch needed. [...] Medical daily as Branch needed. hydrOXYzine 2022-0 2022- No 25mg Take 25 mg [facility] 25 mg 5- 05-09 by mouth ity of tablet 13:28: 00:00 every 8 [place] 35 :00 (eight) Medical hours as Branch needed for Anxiety. hydrOXYzine 2022-0 2022- No 25mg Take 25 mg [facility] 25 mg 5- 05-09 by mouth ity of tablet 13:28: 00:00 every 8 [place] 35 :00 (eight) Medical hours as Branch needed for Anxiety. hydrOXYzine 2022-0 2022- No 25mg Take 25 mg [facility] 25 mg - 05-09 by mouth ity of tablet 13:28: 00:00 every 8 [place] 35 :00 (eight) Medical hours as Branch needed for Anxiety. hydrOXYzine 2022-0 2022- No 25mg Take 25 mg [facility] 25 mg 5- 05-09 by mouth ity of tablet 13:28: 00:00 every 8 [place] 35 :00 (eight) Medical hours as Branch needed for Anxiety. hydrOXYzine 2022-0 2022- No 25mg Take 25 mg [facility] 25 mg 5- 05-09 by mouth ity of tablet 13:28: 00:00 every 8 [place] 35 :00 (eight) Medical hours as Branch needed for Anxiety. hydrOXYzine 2022-0 2022- No 25mg Take 25 mg [facility] 25 mg 5- 05-09 by mouth ity of tablet 13:28: 00:00 every 8 [place] 35 :00 (eight) Medical hours as Branch needed for Anxiety. gabapentin 2022-0 Yes [id number] 300mg Take 1 [facility] 300 mg 4-21 capsule by ity of capsule 00:00: mouth 3 (three) Medical times Branch daily. gabapentin 2022-0 Yes [id number] 300mg Take 1 [facility] 300 mg 4-21 capsule by ity of capsule 00:00: mouth 3 (three) Medical times Branch daily. gabapentin 2022-0 Yes [id number] 300mg Take 1 [facility] 300 mg 4-21 capsule by ity of capsule 00:00: mouth (three) Medical times Branch daily. gabapentin 2022-0 Yes [id number] 300mg Take 1 [facility] 300 mg 4-21 capsule by ity of capsule 00:00: mouth (three) Medical times Branch daily. gabapentin 2022-0 Yes [id number] 300mg Take 1 [facility] 300 mg 4-21 capsule by ity of capsule 00:00: mouth (three) Medical times Branch daily. gabapentin 2022-0 Yes [id number] 300mg Take 1 [facility] 300 mg 4-21 capsule by ity of capsule 00:00: mouth () Medical times Branch daily. gabapentin 2022-0 Yes [id number] 300mg Take 1 [facility] 300 mg 4-21 capsule by ity of capsule 00:00: mouth (three) Medical times Branch daily. gabapentin 2022-0 Yes [id number] 300mg Take 1 [facility] 300 mg 4-21 capsule by ity of capsule 00:00: mouth (three) Medical times Branch daily. gabapentin 2022-0 Yes [id number] 300mg Take 1 [facility] 300 mg 4-21 capsule by ity of capsule 00:00: mouth (three) Medical times Branch daily. gabapentin 2022-0 Yes [id number] 300mg Take 1 [facility] 300 mg 4-21 capsule by ity of capsule 00:00: mouth 3 (three) Medical times Branch daily. gabapentin 2022-0 Yes [id number] 300mg Take 1 [facility] 300 mg 4-21 capsule by ity of capsule 00:00: mouth 3 (three) Medical times Branch daily. gabapentin 2022-0 Yes [id number] 300mg Take 1 [facility] 300 mg 4-21 capsule by ity of capsule 00:00: mouth [place] (three) Medical times Branch daily. gabapentin 2022-0 Yes [id number] 300mg Take 1 [facility] 300 mg 4-21 capsule by ity of capsule 00:00: mouth () Medical times Branch daily. gabapentin 2022-0 Yes [id number] 300mg Take 1 [facility] 300 mg 4-21 capsule by ity of capsule 00:00: mouth () Medical times Branch daily. gabapentin 2022-0 Yes [id number] 300mg Take 1 [facility] 300 mg 4-21 capsule by ity of capsule 00:00: mouth () Medical times Branch daily. gabapentin 2022-0 Yes [id number] 300mg Take 1 [facility] 300 mg 4-21 capsule by ity of capsule 00:00: mouth [place] () Medical times Branch daily. gabapentin 2022-0 Yes [id number] 300mg Take 1 [facility] 300 mg 4-21 capsule by ity of capsule 00:00: mouth ([facility]) Medical times Branch daily. gabapentin 2022-0 Yes [id number] 300mg Take 1 [facility] 300 mg 4-21 capsule by ity of capsule 00:00: mouth [place] ([facility]) Medical times Branch daily. gabapentin 2022-0 Yes [id number] 300mg Take 1 [facility] 300 mg 4-21 capsule by ity of capsule 00:00: mouth [place] ([facility]) Medical times Branch daily. gabapentin 2022-0 Yes [id number] 300mg Take 1 [facility] 300 mg 4-21 capsule by ity of capsule 00:00: mouth [place] ([facility]) Medical times Branch daily. gabapentin 2022-0 Yes [id number] 300mg Take 1 [facility] 300 mg 4-21 capsule by ity of capsule 00:00: mouth [place] ([facility]) Medical times Branch daily. gabapentin 2022-0 Yes [id number] 300mg Take 1 [facility] 300 mg 4-21 capsule by ity of capsule 00:00: mouth [place] ([facility]) Medical times Branch daily. gabapentin 2022-0 Yes [id number] 300mg Take 1 [facility] 300 mg 4-21 capsule by ity of capsule 00:00: mouth [place] ([facility]) Medical times Branch daily. gabapentin 2022-0 Yes [id number] 300mg Take 1 [facility] 300 mg 4-21 capsule by ity of capsule 00:00: mouth [place] ([facility]) Medical times Branch daily. gabapentin 2022-0 Yes [id number] 300mg Take 1 [facility] 300 mg 4-21 capsule by ity of capsule 00:00: mouth (three) Medical times Branch daily. gabapentin 2022-0 Yes [id number] 300mg Take 1 [facility] 300 mg 4-21 capsule by ity of capsule 00:00: mouth (three) Medical times Branch daily. gabapentin 2022-0 Yes [id number] 300mg Take 1 [facility] 300 mg 4-21 capsule by ity of capsule 00:00: mouth (three) Medical times Branch daily. gabapentin 2022-0 Yes [id number] 300mg Take 1 [facility] 300 mg 4-21 capsule by ity of capsule 00:00: mouth (three) Medical times Branch daily. gabapentin 2022-0 Yes [id number] 300mg Take 1 [facility] 300 mg 4-21 capsule by ity of capsule 00:00: mouth () Medical times Branch daily. gabapentin 2022-0 Yes [id number] 300mg Take 1 [facility] 300 mg 4-21 capsule by ity of capsule 00:00: mouth () Medical times Branch daily. gabapentin 2022-0 Yes [id number] 300mg Take 1 [facility] 300 mg 4-21 capsule by ity of capsule 00:00: mouth () Medical times Branch daily. gabapentin 2022-0 Yes [id number] 300mg Take 1 [facility] 300 mg 4-21 capsule by ity of capsule 00:00: mouth () Medical times Branch daily. gabapentin 2022-0 Yes [id number] 300mg Take 1 [facility] 300 mg 4-21 capsule by ity of capsule 00:00: mouth () Medical times Branch daily. gabapentin 2022-0 Yes [id number] 300mg Take 1 [facility] 300 mg 4-21 capsule by ity of capsule 00:00: mouth (three) Medical times Branch daily. gabapentin 2022-0 Yes [id number] 300mg Take 1 [facility] 300 mg 4-21 capsule by ity of capsule 00:00: mouth (three) Medical times Branch daily. gabapentin 2022-0 Yes [id number] 300mg Take 1 [facility] 300 mg 4-21 capsule by ity of capsule 00:00: mouth (three) Medical times Branch daily. gabapentin 2022-0 Yes [id number] 300mg Take 1 [facility] 300 mg 4-21 capsule by ity of capsule 00:00: mouth 3 [place] 00 (three) Medical times Branch daily. gabapentin 2022-0 Yes [id number] 300mg Take 1 [facility] 300 mg 4-21 capsule by ity of capsule 00:00: mouth 3 [place] 00 (three) Medical times Branch daily. gabapentin 2022-0 Yes [id number] 300mg Take 1 [facility] 300 mg 4-21 capsule by ity of capsule 00:00: mouth 3 [place] 00 (three) Medical times Branch daily. gabapentin 2022-0 Yes [id number] 300mg Take 1 [facility] 300 mg 4-21 capsule by ity of capsule 00:00: mouth 3 [place] 00 (three) Medical times Branch daily. gabapentin 2022-0 2023- No [id number] 300mg Take 1 [facility] 300 mg 4-21 03-28 capsule by ity of capsule 00:00: 00:00 mouth 3 [place] 00 :00 (three) Medical times Branch daily. gabapentin 2022-0 2023- No [id number] 300mg Take 1 [facility] 300 mg 4-21 03-28 capsule by ity of capsule 00:00: 00:00 mouth 3 [place] 00 :00 (three) Medical times Branch daily. gabapentin 2022-0 2023- No [id number] 300mg Take 1 [facility] 300 mg 4-21 03-28 capsule by ity of capsule 00:00: 00:00 mouth 3 [place] 00 :00 (three) Medical times Branch daily. gabapentin 2022-0 2023- No [id number] 300mg Take 1 [facility] 300 mg 4-21 03-28 capsule by ity of capsule 00:00: 00:00 mouth 3 [place] 00 :00 (three) Medical times Branch daily. gabapentin 2022-0 2023- No [id number] 300mg Take 1 [facility] 300 mg 4-21 03-28 capsule by ity of capsule 00:00: 00:00 mouth 3 [place] 00 :00 (three) Medical times Branch daily. gabapentin 2022-0 2023- No [id number] 300mg Take 1 [facility] 300 mg 4-21 03-28 capsule by ity of capsule 00:00: 00:00 mouth 3 [place] 00 :00 (three) Medical times Branch daily. gabapentin 2022-0 2023- No [id number] 300mg Take 1 [facility] 300 mg 4-21 03-28 capsule by ity of capsule 00:00: 00:00 mouth 3 [place] 00 :00 (three) Medical times Branch daily. adalimumab 2021-0 2022- No [id number] 40mg inject 1 [facility] (HUMIRA,CF, 10-25 [id number] Pen under ity of PEN) 40 00:00: 00:00 the skin [place] mg/0.4 mL 00 :00 every 14 Medica l injection (fourteen) Bran ch days. adalimumab 2021-0 2022- No [id number] 40mg inject 1 [facility] (HUMIRA,CF, 10-25 [id number] Pen under ity of PEN) 40 00:00: 00:00 the skin [place] mg/0.4 mL 00 :00 every 14 Medica l injection (fourteen) Bran ch days. adalimumab 2021-0 2022- No [id number] 40mg inject 1 [facility] (HUMIRA,CF, 10-25 [id number] Pen under ity of PEN) 40 00:00: 00:00 the skin [place] mg/0.4 mL 00 :00 every 14 Medica l injection (fourteen) Bran ch days. adalimumab 2021-0 2022- No [id number] 40mg inject 1 [facility] (HUMIRA,CF, 10-25 [id number] Pen under ity of PEN) 40 00:00: 00:00 the skin [place] mg/0.4 mL 00 :00 every 14 Medica l injection (fourteen) Bran ch days. adalimumab 2021-0 2022- No [id number] 40mg inject 1 [facility] (HUMIRA,CF, 10-25 [id number] Pen under ity of PEN) 40 00:00: 00:00 the skin [place] mg/0.4 mL 00 :00 every 14 Medica l injection (fourteen) Bran ch days. gabapentin 2021-0 2022- No [id number] 300mg Take 1 [facility] 300 mg 3- 04-21 capsule by ity of capsule 00:00: 00:00 mouth 3 [place] 00 :00 (three) Medical times Branch daily for 30 days. gabapentin 2021-0 2022- No [id number] 300mg Take 1 [facility] 300 mg 3-22 04-21 capsule by ity of capsule 00:00: 00:00 mouth 3 [place] 00 :00 (three) Medical times Branch daily for 30 days. Lancets 2021-0 Yes [id number] Use as Uni vers (ACCU-CHEK 2-15 directed ity o f SOFTCLIX 00:00: to check [place] LANCETS) 00 blood Medical Misc sugar once Branch daily E11.9 Lancets 2021-0 Yes [id number] Use as Uni vers (ACCU-CHEK 2-15 directed ity o f SOFTCLIX 00:00: to check [place] LANCETS) 00 blood Medical Misc sugar once Branch daily E11.9 Lancets 2021-0 Yes [id number] Use as Uni vers (ACCU-CHEK 2-15 directed ity o f SOFTCLIX 00:00: to check [place] LANCETS) 00 blood Medical Misc sugar once Branch daily E11.9 Lancets 2021-0 Yes [id number] Use as Uni vers (ACCU-CHEK 2-15 directed ity o f SOFTCLIX 00:00: to check [place] LANCETS) 00 blood Medical Misc sugar once Branch daily E11.9 Lancets 2021-0 Yes [id number] Use as Uni vers (ACCU-CHEK 2-15 directed ity o f SOFTCLIX 00:00: to check [place] LANCETS) 00 blood Medical Misc sugar once Branch daily E11.9 Lancets 2021-0 Yes [id number] Use as Uni vers (ACCU-CHEK 2-15 directed ity o f SOFTCLIX 00:00: to check [place] LANCETS) 00 blood Medical Misc sugar once Branch daily E11.9 Lancets 2021-0 Yes [id number] Use as Uni vers (ACCU-CHEK 2-15 directed ity o f SOFTCLIX 00:00: to check [place] LANCETS) 00 blood Medical Misc sugar once Branch daily E11.9 Lancets 2021-0 Yes [id number] Use as [facility] vers (ACCU-CHEK 2-15 directed ity o f SOFTCLIX 00:00: to check [place] LANCETS) 00 blood Medical Misc sugar once Branch daily E11.9 Lancets 2021-0 Yes [id number] Use as Uni vers (ACCU-CHEK 2-15 directed ity o f SOFTCLIX 00:00: to check [place] LANCETS) 00 blood Medical Misc sugar once Branch daily E11.9 Lancets 2021-0 Yes [id number] Use as Uni vers (ACCU-CHEK 2-15 directed ity o f SOFTCLIX 00:00: to check [place] LANCETS) 00 blood Medical Misc sugar once Branch daily E11.9 Lancets 2021-0 Yes [id number] Use as Uni vers (ACCU-CHEK 2-15 directed ity o f SOFTCLIX 00:00: to check [place] LANCETS) 00 blood Medical Misc sugar once Branch daily E11.9 Lancets 2021-0 Yes [id number] Use as Uni vers (ACCU-CHEK 2-15 directed ity o f SOFTCLIX 00:00: to check [place] LANCETS) 00 blood Medical Misc sugar once Branch daily E11.9 Lancets 2021-0 Yes [id number] Use as [facility] vers (ACCU-CHEK 2-15 directed ity o f SOFTCLIX 00:00: to check [place] LANCETS) 00 blood Medical Misc sugar once Branch daily E11.9 Lancets 2021-0 Yes [id number] Use as [facility] vers (ACCU-CHEK 2-15 directed ity o f SOFTCLIX 00:00: to check [place] LANCETS) 00 blood Medical Misc sugar once Branch daily E11.9 Lancets 2021-0 Yes [id number] Use as [facility] vers (ACCU-CHEK 2-15 directed ity o f SOFTCLIX 00:00: to check [place] LANCETS) 00 blood Medical Misc sugar once Branch daily E11.9 Lancets 2021-0 Yes [id number] Use as Uni vers (ACCU-CHEK 2-15 directed ity o f SOFTCLIX 00:00: to check [place] LANCETS) 00 blood Medical Misc sugar once Branch daily E11.9 Lancets 2021-0 Yes [id number] Use as Uni vers (ACCU-CHEK 2-15 directed ity o f SOFTCLIX 00:00: to check [place] LANCETS) 00 blood Medical Misc sugar once Branch daily E11.9 Lancets 2021-0 Yes [id number] Use as Uni vers (ACCU-CHEK 2-15 directed ity o f SOFTCLIX 00:00: to check [place] LANCETS) 00 blood Medical Misc sugar once Branch daily E11.9 Lancets 2021-0 Yes [id number] Use as Uni vers (ACCU-CHEK 2-15 directed ity o f SOFTCLIX 00:00: to check [place] LANCETS) 00 blood Medical Misc sugar once Branch daily E11.9 Lancets 2021-0 Yes [id number] Use as [facility] vers (ACCU-CHEK 2-15 directed ity o f SOFTCLIX 00:00: to check [place] LANCETS) 00 blood Medical Misc sugar once Branch daily E11.9 Lancets 2021-0 Yes [id number] Use as Uni vers (ACCU-CHEK 2-15 directed ity o f SOFTCLIX 00:00: to check [place] LANCETS) 00 blood Medical Misc sugar once Branch daily E11.9 Lancets 0 Yes [id number] Use as Uni vers (ACCU-CHEK 2-15 directed ity o f SOFTCLIX 00:00: to check [place] LANCETS) 00 blood Medical Misc sugar once Branch daily E11.9 Lancets 0 Yes [id number] Use as Uni vers (ACCU-CHEK 2-15 directed ity o f SOFTCLIX 00:00: to check [place] LANCETS) 00 blood Medical Misc sugar once Branch daily E11.9 Lancets 0 Yes [id number] Use as Uni vers (ACCU-CHEK 2-15 directed ity o f SOFTCLIX 00:00: to check [place] LANCETS) 00 blood Medical Misc sugar once Branch daily E11.9 Lancets 2021-0 Yes [id number] Use as [facility] vers (ACCU-CHEK 2-15 directed ity o f SOFTCLIX 00:00: to check [place] LANCETS) 00 blood Medical Misc sugar once Branch daily E11.9 Lancets 2021-0 Yes [id number] Use as [facility] vers (ACCU-CHEK 2-15 directed ity o f SOFTCLIX 00:00: to check [place] LANCETS) 00 blood Medical Misc sugar once Branch daily E11.9 Lancets 2021-0 Yes [id number] Use as [facility] vers (ACCU-CHEK 2-15 directed ity o f SOFTCLIX 00:00: to check [place] LANCETS) 00 blood Medical Misc sugar once Branch daily E11.9 Lancets 0 Yes [id number] Use as Uni vers (ACCU-CHEK 2-15 directed ity o f SOFTCLIX 00:00: to check [place] LANCETS) 00 blood Medical Misc sugar once Branch daily E11.9 Lancets 2022-0 Yes [id number] Use as [facility] vers (ACCU-CHEK 2-15 directed ity o f SOFTCLIX 00:00: to check [place] LANCETS) 00 blood Medical Misc sugar once Branch daily E11.9 Lancets 0 Yes [id number] Use as [facility] vers (ACCU-CHEK 2-15 directed ity o f SOFTCLIX 00:00: to check [place] LANCETS) 00 blood Medical Misc sugar once Branch daily E11.9 Lancets 0 Yes [id number] Use as Uni vers (ACCU-CHEK 2-15 directed ity o f SOFTCLIX 00:00: to check [place] LANCETS) 00 blood Medical Misc sugar once Branch daily E11.9 Lancets 0 Yes [id number] Use as [facility] vers (ACCU-CHEK 2-15 directed ity o f SOFTCLIX 00:00: to check [place] LANCETS) 00 blood Medical Misc sugar once Branch daily E11.9 Lancets 0 Yes [id number] Use as [facility] vers (ACCU-CHEK 2-15 directed ity o f SOFTCLIX 00:00: to check [place] LANCETS) 00 blood Medical Misc sugar once Branch daily E11.9 Lancets 0 Yes [id number] Use as [facility] vers (ACCU-CHEK 2-15 directed ity o f SOFTCLIX 00:00: to check [place] LANCETS) 00 blood Medical Misc sugar once Branch daily E11.9 Lancets 2021-0 Yes [id number] Use as [facility] vers (ACCU-CHEK 2-15 directed ity o f SOFTCLIX 00:00: to check [place] LANCETS) 00 blood Medical Misc sugar once Branch daily E11.9 Lancets 0 Yes [id number] Use as [facility] vers (ACCU-CHEK 2-15 directed ity o f SOFTCLIX 00:00: to check [place] LANCETS) 00 blood Medical Misc sugar once Branch daily E11.9 Lancets 0 Yes [id number] Use as [facility] vers (ACCU-CHEK 2-15 directed ity o f SOFTCLIX 00:00: to check [place] LANCETS) 00 blood Medical Misc sugar once Branch daily E11.9 Lancets Yes [id number] Use as [facility] vers (ACCU-CHEK 2-15 directed ity o f SOFTCLIX 00:00: to check [place] LANCETS) 00 blood Medical Misc sugar once Branch daily E11.9 Lancets 2021-0 Yes [id number] Use as [facility] vers (ACCU-CHEK 2-15 directed ity o f SOFTCLIX 00:00: to check [place] LANCETS) 00 blood Medical Misc sugar once Branch daily E11.9 Lancets 2021-0 Yes [id number] Use as [facility] vers (ACCU-CHEK 2-15 directed ity o f SOFTCLIX 00:00: to check [place] LANCETS) 00 blood Medical Misc sugar once Branch daily E11.9 Lancets 2021-0 Yes [id number] Use as Uni vers (ACCU-CHEK 2-15 directed ity o f SOFTCLIX 00:00: to check [place] LANCETS) 00 blood Medical Misc sugar once Branch daily E11.9 Lancets 2021-0 Yes [id number] Use as Uni vers (ACCU-CHEK 2-15 directed ity o f SOFTCLIX 00:00: to check [place] LANCETS) 00 blood Medical Misc sugar once Branch daily E11.9 Lancets 2021-0 Yes [id number] Use as Uni vers (ACCU-CHEK 2-15 directed ity o f SOFTCLIX 00:00: to check [place] LANCETS) 00 blood Medical Misc sugar once Branch daily E11.9 Lancets 2021-0 Yes [id number] Use as Uni vers (ACCU-CHEK 2-15 directed ity o f SOFTCLIX 00:00: to check [place] LANCETS) 00 blood Medical Misc sugar once Branch daily E11.9 Lancets 2021-0 Yes [id number] Use as Uni vers (ACCU-CHEK 2-15 directed ity o f SOFTCLIX 00:00: to check [place] LANCETS) 00 blood Medical Misc sugar once Branch daily E11.9 Lancets 2021-0 Yes [id number] Use as Uni vers (ACCU-CHEK 2-15 directed ity o f SOFTCLIX 00:00: to check [place] LANCETS) 00 blood Medical Misc sugar once Branch daily E11.9 Lancets 0 Yes [id number] Use as Uni vers (ACCU-CHEK 2-15 directed ity o f SOFTCLIX 00:00: to check [place] LANCETS) 00 blood Medical Misc sugar once Branch daily E11.9 Lancets 2021-0 Yes [id number] Use as Uni vers (ACCU-CHEK 2-15 directed ity o f SOFTCLIX 00:00: to check [place] LANCETS) 00 blood Medical Misc sugar once Branch daily E11.9 Lancets 2021-0 Yes [id number] Use as Uni vers (ACCU-CHEK 2-15 directed ity o f SOFTCLIX 00:00: to check [place] LANCETS) 00 blood Medical Misc sugar once Branch daily E11.9 Lancets 2021-0 Yes [id number] Use as Uni vers (ACCU-CHEK 2-15 directed ity o f SOFTCLIX 00:00: to check [place] LANCETS) 00 blood Medical Misc sugar once Branch daily E11.9 Lancets 2021-0 Yes [id number] Use as Uni vers (ACCU-CHEK 2-15 directed ity o f SOFTCLIX 00:00: to check [place] LANCETS) 00 blood Medical Misc sugar once Branch daily E11.9 Lancets 2021-0 Yes [id number] Use as Uni vers (ACCU-CHEK 2-15 directed ity o f SOFTCLIX 00:00: to check [place] LANCETS) 00 blood Medical Misc sugar once Branch daily E11.9 Lancets 2021-0 Yes [id number] Use as Uni vers (ACCU-CHEK 2-15 directed ity o f SOFTCLIX 00:00: to check [place] LANCETS) 00 blood Medical Misc sugar once Branch daily E11.9 Lancets 2021-0 Yes [id number] Use as Uni vers (ACCU-CHEK 2-15 directed ity o f SOFTCLIX 00:00: to check [place] LANCETS) 00 blood Medical Misc sugar once Branch daily E11.9 Lancets 2021-0 Yes [id number] Use as Uni vers (ACCU-CHEK 2-15 directed ity o f SOFTCLIX 00:00: to check [place] LANCETS) 00 blood Medical Misc sugar once Branch daily E11.9 Lancets 2021-0 Yes [id number] Use as [facility] vers (ACCU-CHEK 2-15 directed ity o f SOFTCLIX 00:00: to check [place] LANCETS) 00 blood Medical Misc sugar once Branch daily E11.9 Lancets 2021-0 Yes [id number] Use as [facility] vers (ACCU-CHEK 2-15 directed ity o f SOFTCLIX 00:00: to check [place] LANCETS) 00 blood Medical Misc sugar once Branch daily E11.9 Lancets 2021-0 Yes [id number] Use as [facility] vers (ACCU-CHEK 2-15 directed ity o f SOFTCLIX 00:00: to check [place] LANCETS) 00 blood Medical Misc sugar once Branch daily E11.9 Lancets 0 Yes [id number] Use as [facility] vers (ACCU-CHEK 2-15 directed ity o f SOFTCLIX 00:00: to check [place] LANCETS) 00 blood Medical Misc sugar once Branch daily E11.9 Lancets 0 Yes [id number] Use as [facility] vers (ACCU-CHEK 2-15 directed ity o f SOFTCLIX 00:00: to check [place] LANCETS) 00 blood Medical Misc sugar once Branch daily E11.9 Lancets 0 Yes [id number] Use as [facility] vers (ACCU-CHEK 2-15 directed ity o f SOFTCLIX 00:00: to check [place] LANCETS) 00 blood Medical Misc sugar once Branch daily E11.9 Lancets 2021-0 Yes [id number] Use as [facility] vers (ACCU-CHEK 2-15 directed ity o f SOFTCLIX 00:00: to check [place] LANCETS) 00 blood Medical Misc sugar once Branch daily E11.9 Lancets 2021-0 Yes [id number] Use as [facility] vers (ACCU-CHEK 2-15 directed ity o f SOFTCLIX 00:00: to check [place] LANCETS) 00 blood Medical Misc sugar once Branch daily E11.9 Lancets 0 Yes [id number] Use as [facility] vers (ACCU-CHEK 2-15 directed ity o f SOFTCLIX 00:00: to check [place] LANCETS) 00 blood Medical Misc sugar once Branch daily E11.9 Lancets 0 Yes [id number] Use as [facility] vers (ACCU-CHEK 2-15 directed ity o f SOFTCLIX 00:00: to check [place] LANCETS) 00 blood Medical Misc sugar once Branch daily E11.9 Lancets 2022-0 Yes [id number] Use as [facility] vers (ACCU-CHEK 2-15 directed ity o f SOFTCLIX 00:00: to check [place] LANCETS) 00 blood Medical Misc sugar once Branch daily E11.9 Lancets 0 Yes [id number] Use as [facility] vers (ACCU-CHEK 2-15 directed ity o f SOFTCLIX 00:00: to check [place] LANCETS) 00 blood Medical Misc sugar once Branch daily E11.9 Lancets 0 Yes [id number] Use as [facility] vers (ACCU-CHEK 2-15 directed ity o f SOFTCLIX 00:00: to check [place] LANCETS) 00 blood Medical Misc sugar once Branch daily E11.9 Lancets 0 Yes [id number] Use as [facility] vers (ACCU-CHEK 2-15 directed ity o f SOFTCLIX 00:00: to check [place] LANCETS) 00 blood Medical Misc sugar once Branch daily E11.9 Lancets 0 Yes [id number] Use as [facility] vers (ACCU-CHEK 2-15 directed ity o f SOFTCLIX 00:00: to check [place] LANCETS) 00 blood Medical Misc sugar once Branch daily E11.9 Lancets 0 Yes [id number] Use as [facility] vers (ACCU-CHEK 2-15 directed ity o f SOFTCLIX 00:00: to check [place] LANCETS) 00 blood Medical Misc sugar once Branch daily E11.9 Lancets 2021-0 Yes [id number] Use as [facility] vers (ACCU-CHEK 2-15 directed ity o f SOFTCLIX 00:00: to check [place] LANCETS) 00 blood Medical Misc sugar once Branch daily E11.9 Lancets 0 Yes [id number] Use as [facility] vers (ACCU-CHEK 2-15 directed ity o f SOFTCLIX 00:00: to check [place] LANCETS) 00 blood Medical Misc sugar once Branch daily E11.9 Lancets 0 Yes [id number] Use as [facility] vers (ACCU-CHEK 2-15 directed ity o f SOFTCLIX 00:00: to check [place] LANCETS) 00 blood Medical Misc sugar once Branch daily E11.9 Lancets Yes [id number] Use as [facility] vers (ACCU-CHEK 2-15 directed ity o f SOFTCLIX 00:00: to check [place] LANCETS) 00 blood Medical Misc sugar once Branch daily E11.9 Lancets 2021-0 Yes [id number] Use as [facility] vers (ACCU-CHEK 2-15 directed ity o f SOFTCLIX 00:00: to check [place] LANCETS) 00 blood Medical Misc sugar once Branch daily E11.9 Lancets 2021-0 Yes [id number] Use as [facility] vers (ACCU-CHEK 2-15 directed ity o f SOFTCLIX 00:00: to check [place] LANCETS) 00 blood Medical Misc sugar once Branch daily E11.9 Lancets 2021-0 Yes [id number] Use as [facility] vers (ACCU-CHEK 2-15 directed ity o f SOFTCLIX 00:00: to check [place] LANCETS) 00 blood Medical Misc sugar once Branch daily E11.9 Lancets 2021-0 Yes [id number] Use as [facility] vers (ACCU-CHEK 2-15 directed ity o f SOFTCLIX 00:00: to check [place] LANCETS) 00 blood Medical Misc sugar once Branch daily E11.9 Lancets 2021-0 Yes [id number] Use as [facility] vers (ACCU-CHEK 2-15 directed ity o f SOFTCLIX 00:00: to check [place] LANCETS) 00 blood Medical Misc sugar once Branch daily E11.9 Lancets 2021-0 Yes [id number] Use as [facility] vers (ACCU-CHEK 2-15 directed ity o f SOFTCLIX 00:00: to check [place] LANCETS) 00 blood Medical Misc sugar once Branch daily E11.9 Lancets 2021-0 Yes [id number] Use as [facility] vers (ACCU-CHEK 2-15 directed ity o f SOFTCLIX 00:00: to check [place] LANCETS) 00 blood Medical Misc sugar once Branch daily E11.9 Lancets 2021-0 Yes [id number] Use as [facility] vers (ACCU-CHEK 2-15 directed ity o f SOFTCLIX 00:00: to check [place] LANCETS) 00 blood Medical Misc sugar once Branch daily E11.9 Lancets 0 Yes [id number] Use as [facility] vers (ACCU-CHEK 2-15 directed ity o f SOFTCLIX 00:00: to check [place] LANCETS) 00 blood Medical Misc sugar once Branch daily E11.9 Lancets 2021-0 Yes [id number] Use as [facility] vers (ACCU-CHEK 2-15 directed ity o f SOFTCLIX 00:00: to check [place] LANCETS) 00 blood Medical Misc sugar once Branch daily E11.9 Lancets 2021-0 Yes [id number] Use as [facility] vers (ACCU-CHEK 2-15 directed ity o f SOFTCLIX 00:00: to check [place] LANCETS) 00 blood Medical Misc sugar once Branch daily E11.9 Lancets 2021-0 Yes [id number] Use as [facility] vers (ACCU-CHEK 2-15 directed ity o f SOFTCLIX 00:00: to check [place] LANCETS) 00 blood Medical Misc sugar once Branch daily E11.9 Lancets 0 Yes [id number] Use as [facility] vers (ACCU-CHEK 2-15 directed ity o f SOFTCLIX 00:00: to check [place] LANCETS) 00 blood Medical Misc sugar once Branch daily E11.9 Lancets 0 Yes [id number] Use as [facility] vers (ACCU-CHEK 2-15 directed ity o f SOFTCLIX 00:00: to check [place] LANCETS) 00 blood Medical Misc sugar once Branch daily E11.9 Lancets 2021-0 Yes [id number] Use as [facility] vers (ACCU-CHEK 2-15 directed ity o f SOFTCLIX 00:00: to check [place] LANCETS) 00 blood Medical Misc sugar once Branch daily E11.9 Lancets 2021-0 Yes [id number] Use as [facility] vers (ACCU-CHEK 2-15 directed ity o f SOFTCLIX 00:00: to check [place] LANCETS) 00 blood Medical Misc sugar once Branch daily E11.9 Lancets 0 Yes [id number] Use as [facility] vers (ACCU-CHEK 2-15 directed ity o f SOFTCLIX 00:00: to check [place] LANCETS) 00 blood Medical Misc sugar once Branch daily E11.9 Lancets 2021-0 Yes [id number] Use as [facility] vers (ACCU-CHEK 2-15 directed ity o f SOFTCLIX 00:00: to check [place] LANCETS) 00 blood Medical Misc sugar once Branch daily E11.9 Lancets 2021-0 Yes [id number] Use as [facility] vers (ACCU-CHEK 2-15 directed ity o f SOFTCLIX 00:00: to check [place] LANCETS) 00 blood Medical Misc sugar once Branch daily E11.9 Lancets 2021-0 Yes [id number] Use as [facility] vers (ACCU-CHEK 2-15 directed ity o f SOFTCLIX 00:00: to check [place] LANCETS) 00 blood Medical Misc sugar once Branch daily E11.9 Lancets 2021-0 Yes [id number] Use as [facility] vers (ACCU-CHEK 2-15 directed ity o f SOFTCLIX 00:00: to check [place] LANCETS) 00 blood Medical Misc sugar once Branch daily E11.9 Lancets 2021-0 Yes [id number] Use as [facility] vers (ACCU-CHEK 2-15 directed ity o f SOFTCLIX 00:00: to check [place] LANCETS) 00 blood Medical Misc sugar once Branch daily E11.9 Lancets 2021-0 Yes [id number] Use as [facility] vers (ACCU-CHEK 2-15 directed ity o f SOFTCLIX 00:00: to check [place] LANCETS) 00 blood Medical Misc sugar once Branch daily E11.9 blood sugar 2021-2021- No [id number] Use as [facility] diagnostic 2-02-27 directed ity of (ACCU-CHEK 00:00: 00:00 to check [place] GUIDE TEST 00 :00 blood Medical STRIPS) sugar once Branch strip daily E11.9 blood sugar 2021- No [id number] Use as [facility] diagnostic 2-02-27 directed ity of (ACCU-CHEK 00:00: 00:00 to check [place] GUIDE TEST 00 :00 blood Medical STRIPS) sugar once Branch strip daily E11.9 blood sugar 2021- No [id number] Use as [facility] diagnostic 2-02-27 directed ity of (ACCU-CHEK 00:00: 00:00 to check [place] GUIDE TEST 00 :00 blood Medical STRIPS) sugar once Branch strip daily E11.9 blood sugar 2021- No [id number] Use as [facility] diagnostic 2-02-27 directed ity of (ACCU-CHEK 00:00: 00:00 to check [place] GUIDE TEST 00 :00 blood Medical STRIPS) sugar once Branch strip daily E11.9 blood sugar 2021- No [id number] Use as [facility] diagnostic 08-31 directed ity of (ACCU-CHEK 00:00: 00:00 to check [place] GUIDE TEST 00 :00 blood Medical STRIPS) sugar once Branch strip daily E11.9 blood sugar 2021- No [id number] Use as [facility] diagnostic 08-31 directed ity of (ACCU-CHEK 00:00: 00:00 to check [place] GUIDE TEST 00 :00 blood Medical STRIPS) sugar once Branch strip daily E11.9 blood sugar 2021- No [id number] Use as [facility] diagnostic 08-31 directed ity of (ACCU-CHEK 00:00: 00:00 to check [place] GUIDE TEST 00 :00 blood Medical STRIPS) sugar once Branch strip daily E11.9 metformin Yes [id number] 1000mg Take 2 [facility] ER 500 mg 2-08 tablets by ity of 24 hr 00:00: mouth [place] tablet 00 daily with Medical breakfast. Branch metformin Yes [id number] 1000mg Take 2 [facility] ER 500 mg 2-08 tablets by ity of 24 hr 00:00: mouth [place] tablet 00 daily with Medical breakfast. Branch metformin Yes [id number] 1000mg Take 2 [facility] ER 500 mg 2-08 tablets by ity of 24 hr 00:00: mouth [place] tablet 00 daily with Medical breakfast. Branch metformin Yes [id number] 1000mg Take 2 [facility] ER 500 mg 2-08 tablets by ity of 24 hr 00:00: mouth [place] tablet 00 daily with Medical breakfast. Branch metformin 0 Yes [id number] 1000mg Take 2 [facility] ER 500 mg 2-08 tablets by ity of 24 hr 00:00: mouth [place] tablet 00 daily with Medical breakfast. Branch metformin 0 Yes [id number] 1000mg Take 2 [facility] ER 500 mg 2-08 tablets by ity of 24 hr 00:00: mouth [place] tablet 00 daily with Medical breakfast. Branch metformin 2021- Yes [id number] 1000mg Take 2 [facility] ER 500 mg 2-08 tablets by ity of 24 hr 00:00: mouth [place] tablet 00 daily with Medical breakfast. Branch metformin 2021-0 Yes [id number] 1000mg Take 2 [facility] ER 500 mg 2-08 tablets by ity of 24 hr 00:00: mouth [place] tablet 00 daily with Medical breakfast. Branch metformin 2021-0 Yes [id number] 1000mg Take 2 [facility] ER 500 mg 2-08 tablets by ity of 24 hr 00:00: mouth [place] tablet 00 daily with Medical breakfast. Branch metformin 2021-0 Yes [id number] 1000mg Take 2 [facility] ER 500 mg 2-08 tablets by ity of 24 hr 00:00: mouth [place] tablet 00 daily with Medical breakfast. Branch metformin 2021-0 Yes [id number] 1000mg Take 2 [facility] ER 500 mg 2-08 tablets by ity of 24 hr 00:00: mouth [place] tablet 00 daily with Medical breakfast. Branch metformin 2021-0 Yes [id number] 1000mg Take 2 [facility] ER 500 mg 2-08 tablets by ity of 24 hr 00:00: mouth [place] tablet 00 daily with Medical breakfast. Branch metformin 2021-0 Yes [id number] 1000mg Take 2 [facility] ER 500 mg 2-08 tablets by ity of 24 hr 00:00: mouth [place] tablet 00 daily with Medical breakfast. Branch metformin 2021-0 Yes [id number] 1000mg Take 2 [facility] ER 500 mg 2-08 tablets by ity of 24 hr 00:00: mouth [place] tablet 00 daily with Medical breakfast. Branch metformin 2021-0 Yes [id number] 1000mg Take 2 [facility] ER 500 mg 2-08 tablets by ity of 24 hr 00:00: mouth [place] tablet 00 daily with Medical breakfast. Branch metformin 2021-0 Yes [id number] 1000mg Take 2 [facility] ER 500 mg 2-08 tablets by ity of 24 hr 00:00: mouth [place] tablet 00 daily with Medical breakfast. Branch metformin 2021-0 Yes [id number] 1000mg Take 2 [facility] ER 500 mg 2-08 tablets by ity of 24 hr 00:00: mouth [place] tablet 00 daily with Medical breakfast. Branch metformin 2021-0 Yes [id number] 1000mg Take 2 [facility] ER 500 mg 2-08 tablets by ity of 24 hr 00:00: mouth [place] tablet 00 daily with Medical breakfast. Branch metformin 2021-0 Yes [id number] 1000mg Take 2 [facility] ER 500 mg 2-08 tablets by ity of 24 hr 00:00: mouth [place] tablet 00 daily with Medical breakfast. Branch metformin Yes [id number] 1000mg Take 2 [facility] ER 500 mg 2-08 tablets by ity of 24 hr 00:00: mouth [place] tablet 00 daily with Medical breakfast. Branch metformin 0 Yes [id number] 1000mg Take 2 [facility] ER 500 mg 2-08 tablets by ity of 24 hr 00:00: mouth [place] tablet 00 daily with Medical breakfast. Branch metformin Yes [id number] 1000mg Take 2 [facility] ER 500 mg 2-08 tablets by ity of 24 hr 00:00: mouth [place] tablet 00 daily with Medical breakfast. Branch metformin Yes [id number] 1000mg Take 2 [facility] ER 500 mg 2-08 tablets by ity of 24 hr 00:00: mouth [place] tablet 00 daily with Medical breakfast. Branch metformin 2022- No [id number] 1000mg Take 2 [facility] ER 500 mg 2-08 -04 tablets by ity of 24 hr 00:00: 00:00 mouth [place] tablet 00 :00 daily with Medical breakfast. Branch metformin 2022- No [id number] 1000mg Take 2 [facility] ER 500 mg 2-08 -04 tablets by ity of 24 hr 00:00: 00:00 mouth [place] tablet 00 :00 daily with Medical breakfast. Branch metformin 2022- No [id number] 1000mg Take 2 [facility] ER 500 mg 2-08 -04 tablets by ity of 24 hr 00:00: 00:00 mouth [place] tablet 00 :00 daily with Medical breakfast. Branch metformin 2022- No [id number] 1000mg Take 2 [facility] ER 500 mg 2-08 -04 tablets by ity of 24 hr 00:00: 00:00 mouth [place] tablet 00 :00 daily with Medical breakfast. Branch metformin 2022- No [id number] 1000mg Take 2 [facility] ER 500 mg 2-08 -04 tablets by ity of 24 hr 00:00: 00:00 mouth [place] tablet 00 :00 daily with Medical breakfast. Branch metformin 2022- No [id number] 1000mg Take 2 [facility] ER 500 mg 2-08 -04 tablets by ity of 24 hr 00:00: 00:00 mouth [place] tablet 00 :00 daily with Medical breakfast. Branch metformin 2021-0 3- No [id number] 1000mg Take 2 [facility] ER 500 mg 207-20 tablets by ity of 24 hr 00:00: 00:00 mouth [place] tablet 00 :00 daily with Medical breakfast. Branch metformin 2021-0 3- No [id number] 1000mg Take 2 [facility] ER 500 mg 207-20 tablets by ity of 24 hr 00:00: 00:00 mouth [place] tablet 00 :00 daily with Medical breakfast. Branch metformin 2021-0 3- No [id number] 1000mg Take 2 [facility] ER 500 mg 08-24 tablets by ity of 24 hr 00:00: 00:00 mouth [place] tablet 00 :00 daily with Medical breakfast. Branch levothyroxi 0 Yes 50ug Take 50 Uni vers ne 50 mcg 2-02 mcg by ity of tablet 00:00: mouth. [place] [facility] levothyroxi 0 Yes 50ug Take 50 Uni vers ne 50 mcg 2-02 mcg by ity of tablet 00:00: mouth. [place] [facility] levothyroxi 0 Yes 50ug Take 50 Uni vers ne 50 mcg 2-02 mcg by ity of tablet 00:00: mouth. [place] [facility] levothyroxi 2021-0 Yes 50ug Take 50 Uni vers ne 50 mcg 2-02 mcg by ity of tablet 00:00: mouth. [place] [facility] levothyroxi 0 Yes 50ug Take 50 Uni vers ne 50 mcg 2-02 mcg by ity of tablet 00:00: mouth. [place] [facility] levothyroxi 2021-0 Yes 50ug Take 50 Uni vers ne 50 mcg 2-02 mcg by ity of tablet 00:00: mouth. [place] [facility] levothyroxi 2021-0 Yes 50ug Take 50 Uni vers ne 50 mcg 2-02 mcg by ity of tablet 00:00: mouth. [place] [facility] levothyroxi 2021-0 Yes 50ug Take 50 Uni vers ne 50 mcg 2-02 mcg by ity of tablet 00:00: mouth. [place] [facility] levothyroxi 2021-0 Yes 50ug Take 50 Uni vers ne 50 mcg 2-02 mcg by ity of tablet 00:00: mouth. [place] [facility] Branch levothyroxi 2021-0 Yes 50ug Take 50 Uni vers ne 50 mcg 2-02 mcg by ity of tablet 00:00: mouth. Medical Branch levothyroxi 2021-0 Yes 50ug Take 50 Uni vers ne 50 mcg 2-02 mcg by ity of tablet 00:00: mouth. [place] [facility] Branch levothyroxi 0 Yes 50ug Take 50 Uni vers ne 50 mcg 2-02 mcg by ity of tablet 00:00: mouth. [place] [facility] levothyroxi 2021-0 Yes 50ug Take 50 Uni vers ne 50 mcg 2-02 mcg by ity of tablet 00:00: mouth. [place] [facility] Branch levothyroxi 0 Yes 50ug Take 50 Uni vers ne 50 mcg 2-02 mcg by ity of tablet 00:00: mouth. [place] [facility] levothyroxi 0 Yes 50ug Take 50 Uni vers ne 50 mcg 2-02 mcg by ity of tablet 00:00: mouth. [place] [facility] levothyroxi 2021-0 Yes 50ug Take 50 Uni vers ne 50 mcg 2-02 mcg by ity of tablet 00:00: mouth. [place] [facility] Branch levothyroxi 0 Yes 50ug Take 50 Uni vers ne 50 mcg 2-02 mcg by ity of tablet 00:00: mouth. [place] [facility] levothyroxi 0 Yes 50ug Take 50 Uni vers ne 50 mcg 2-02 mcg by ity of tablet 00:00: mouth. [place] [facility] levothyroxi 2021-0 Yes 50ug Take 50 Uni vers ne 50 mcg 2-02 mcg by ity of tablet 00:00: mouth. [place] [facility] levothyroxi 2021-0 Yes 50ug Take 50 Uni vers ne 50 mcg 2-02 mcg by ity of tablet 00:00: mouth. [place] [facility] levothyroxi 2021-0 Yes 50ug Take 50 Uni vers ne 50 mcg 2-02 mcg by ity of tablet 00:00: mouth. [place] [facility] levothyroxi 0 Yes 50ug Take 50 Uni vers ne 50 mcg 2-02 mcg by ity of tablet 00:00: mouth. [place] [facility] levothyroxi 2021-0 Yes 50ug Take 50 Uni vers ne 50 mcg 2-02 mcg by ity of tablet 00:00: mouth. [place] 00 Medical Branch levothyroxi 0 Yes 50ug Take 50 Uni vers ne 50 mcg 2-02 mcg by ity of tablet 00:00: mouth. [place] [facility] levothyroxi 0 Yes 50ug Take 50 Uni vers ne 50 mcg 2-02 mcg by ity of tablet 00:00: mouth. [place] [facility] levothyroxi 0 Yes 50ug Take 50 Uni vers ne 50 mcg 2-02 mcg by ity of tablet 00:00: mouth. [place] 00 Medical Branch levothyroxi 0 Yes 50ug Take 50 Uni vers ne 50 mcg 2-02 mcg by ity of tablet 00:00: mouth. [place] [facility] Branch levothyroxi 0 Yes 50ug Take 50 Uni vers ne 50 mcg 2-02 mcg by ity of tablet 00:00: mouth. [place] [facility] levothyroxi 0 Yes 50ug Take 50 Uni vers ne 50 mcg 2-02 mcg by ity of tablet 00:00: mouth. [place] [facility] levothyroxi 0 Yes 50ug Take 50 Uni vers ne 50 mcg 2-02 mcg by ity of tablet 00:00: mouth. [place] 00 Medical Branch levothyroxi 2021-0 3- No 50ug Take 50 Un [facility]id ne 50 mcg 2-02 02-28 mcg by ity of tablet 00:00: 00:00 mouth. [place] 00 :00 Medical Branch levothyroxi 2021-0 3- No 50ug Take 50 Un david ne 50 mcg 2-02 02-28 mcg by ity of tablet 00:00: 00:00 mouth. [place] 00 :00 Medical Branch levothyroxi 2021-0 3- No 50ug Take 50 Un david ne 50 mcg 2-02 02-28 mcg by ity of tablet 00:00: 00:00 mouth. [place] 00 :00 Medical Branch levothyroxi 2021-0 3- No 50ug Take 50 Un david ne 50 mcg 2-02 02-28 mcg by ity of tablet 00:00: 00:00 mouth. [place] 00 :00 Medical Branch levothyroxi 2021-0 3- No 50ug Take 50 Un david ne 50 mcg 2-02 02-28 mcg by ity of tablet 00:00: 00:00 mouth. [place] 00 :00 Medical Branch levothyroxi 2021-0 3- No 50ug Take 50 Un david ne 50 mcg 2-02 02-28 mcg by ity of tablet 00:00: 00:00 mouth. [place] 00 :00 Medical Branch levothyroxi 2-0 3- No 50ug Take 50 Un david ne 50 mcg 2-02 02-28 mcg by ity of tablet 00:00: 00:00 mouth. [place] 00 :00 Medical Branch levothyroxi 2021-0 2023- No 50ug Take 50 Un dvaid ne 50 mcg 2-02 02-28 mcg by ity of tablet 00:00: 00:00 mouth. [place] 00 :00 Medical Branch pantoprazol 2-0 Yes 40mg Take 40 mg Univers e 40 mg EC 1-10 by mouth ity o f tablet 00:00: every [place] 00 morning. Medical Branch pantoprazol 2-0 Yes 40mg Take 40 mg Univers e 40 mg EC 1-10 by mouth ity o f tablet 00:00: every [place] 00 morning. Medical Branch pantoprazol 2-0 2- No 40mg Take 40 mg Univers e 40 mg EC 07-26 by mouth ity of tablet 00:00: 00:00 every [place] 00 :00 morning. Medical Branch pantoprazol 2-0 2- No 40mg Take 40 mg Univers e 40 mg EC 07-26 by mouth ity of tablet 00:00: 00:00 every [place] 00 :00 morning. Medical Branch pantoprazol 2-0 2- No 40mg Take 40 mg Univers e 40 mg EC 07-26 by mouth ity of tablet 00:00: 00:00 every [place] 00 :00 morning. Medical Branch pantoprazol 2-0 2- No 40mg Take 40 mg Univers e 40 mg EC 07-26 by mouth ity of tablet 00:00: 00:00 every [place] 00 :00 morning. Medical Branch pantoprazol 2-0 2022- No 40mg Take 40 mg Univers e 40 mg EC 07-26 by mouth ity of tablet 00:00: 00:00 every [place] 00 :00 morning. Medical Branch pantoprazol 2-0 2022- No 40mg Take 40 mg Univers e 40 mg EC 07-26 by mouth ity of tablet 00:00: 00:00 every [place] 00 :00 morning. Medical Branch pantoprazol 2021- No 40mg Take 40 mg Univers e 40 mg EC 07-26 by mouth ity of tablet 00:00: 00:00 every [place] 00 :00 morning. [facility] Branch pantoprazol 2021- No 40mg Take 40 mg Univers e 40 mg EC 07-26 by mouth ity of tablet 00:00: 00:00 every [place] 00 :00 morning. [facility] Branch pantoprazol 2021- No 40mg Take 40 mg Univers e 40 mg EC 07-26 by mouth ity of tablet 00:00: 00:00 every [place] 00 :00 morning. [facility] Branch adalimumab 2020-07- No [id number] 40mg inject 1 [facility] (PIOTR MAURER, 09-06 [id number] Pen under ity of PEN) 40 00:00: 00:00 the skin [place] mg/0.4 mL 00 :00 every 14 Medica l injection (fourteen) Bran ch days. simvastatin 2021- No [id number] 40mg Take 1 [facility] 40 mg 8-24 08-08 tablet by ity of tablet 00:00: 00:00 mouth at [place] 00 :00 bedtime. [facility] simvastatin 2021- No [id number] 40mg Take 1 [facility] 40 mg 8-24 08-08 tablet by ity of tablet 00:00: 00:00 mouth at [place] 00 :00 bedtime. [facility] simvastatin 2021- No [id number] 40mg Take 1 [facility] 40 mg 8-24 08-08 tablet by ity of tablet 00:00: 00:00 mouth at [place] 00 :00 bedtime. [facility] simvastatin 2021- No [id number] 40mg Take 1 [facility] 40 mg 8-24 08-08 tablet by ity of tablet 00:00: 00:00 mouth at [place] 00 :00 bedtime. [facility] simvastatin 2021- No [id number] 40mg Take 1 [facility] 40 mg 8-24 08-08 tablet by ity of tablet 00:00: 00:00 mouth at [place] 00 :00 bedtime. Medical Branch simvastatin 0 2- No [id number] 40mg Take 1 [facility] 40 mg 03-09-08 tablet by ity of tablet 00:00: 00:00 mouth at [place] 00 :00 bedtime. Medical Branch simvastatin 2020-0 2021- No [id number] 40mg Take 1 [facility] 40 mg 8-09 03-08 tablet by ity of tablet 00:00: 00:00 mouth at [place] 00 :00 bedtime. Medical Branch metformin 2020-0 2021- No [id number] TAKE 1 [facility] ER 500 mg 02-16 TABLET BY ity of 24 hr 00:00: 00:00 MOUTH [place] tablet 00 :00 EVERY DAY Medical WITH THE Branch EVENING MEAL metformin 2020-0 2021- No [id number] TAKE 1 [facility] ER 500 mg 02-16 TABLET BY ity of 24 hr 00:00: 00:00 MOUTH [place] tablet 00 :00 EVERY DAY Medical WITH THE Branch EVENING MEAL lamoTRIgine 2020-0 Yes 200mg Take 200 U nivers 200 mg 5-25 mg by ity of tablet 00:00: mouth at [place] [address] bedtime. Medical Branch QUEtiapine 0 Yes 100mg Take 100 Un david 100 mg 5-25 mg by ity of tablet 00:00: mouth at [place] [address] bedtime. Medical Branch SERTraline 0 Yes 50mg Take 50 mg U nivers 50 mg 5-25 by mouth ity of tablet 00:00: at [place] [address] bedtime. Medical Branch lamoTRIgine 2020-0 Yes 200mg Take 200 U nivers 200 mg 5-25 mg by ity of tablet 00:00: mouth at [place] [address] bedtime. Medical Branch QUEtiapine 2020-0 Yes 100mg Take 100 Un [place] 100 mg 5-25 mg by ity of tablet 00:00: mouth at [place] [address] bedtime. Medical Branch SERTraline 2020-0 Yes 50mg Take 50 mg U nivers 50 mg 5-25 by mouth ity of tablet 00:00: at [place] [address] bedtime. Medical Branch lamoTRIgine 0 Yes 200mg Take 200 U nivers 200 mg 5-25 mg by ity of tablet 00:00: mouth at [place] [address] bedtime. Medical Branch QUEtiapine 0 Yes 100mg Take 100 Un [place] 100 mg 5-25 mg by ity of tablet 00:00: mouth at [place] [address] bedtime. Medical Branch SERTraline 2020-0 Yes 50mg Take 50 mg U nivers 50 mg 5-25 by mouth ity of tablet 00:00: at [place] [address] bedtime. Medical Branch lamoTRIgine 2020-0 Yes 200mg Take 200 U nivers 200 mg 5-25 mg by ity of tablet 00:00: mouth at [place] [address] bedtime. Medical Branch QUEtiapine 2020-0 Yes 100mg Take 100 Un [place] 100 mg 5-25 mg by ity of tablet 00:00: mouth at [place] [address] bedtime. Medical Branch SERTraline 2020-0 Yes 50mg Take 50 mg U nivers 50 mg 5-25 by mouth ity of tablet 00:00: at [place] [address] bedtime. Medical Branch lamoTRIgine 2020-0 Yes 200mg Take 200 U nivers 200 mg 5-25 mg by ity of tablet 00:00: mouth at [place] [address] bedtime. Medical Branch QUEtiapine 2020-0 Yes 100mg Take 100 Un [place] 100 mg 5-25 mg by ity of tablet 00:00: mouth at [place] [address] bedtime. Medical Branch SERTraline 2020-0 Yes 50mg Take 50 mg U nivers 50 mg 5-25 by mouth ity of tablet 00:00: at [place] [address] bedtime. [facility] lamoTRIgine 2020-0 Yes 200mg Take 200 U nivers 200 mg 5-25 mg by [facility] of tablet 00:00: mouth at [place] [address] bedtime. [facility] QUEtiapine 2020-0 Yes 100mg Take 100 Un david 100 mg 5-25 mg by [facility] of tablet 00:00: mouth at [place] [address] bedtime. [facility] SERTraline 2020-0 Yes 50mg Take 50 mg U nivers 50 mg 5-25 by mouth [facility] of tablet 00:00: at [place] [address] bedtime. [facility] lamoTRIgine 2020-0 Yes 200mg Take 200 U nivers 200 mg 5-25 mg by [facility] of tablet 00:00: mouth at [place] [address] bedtime. [facility] QUEtiapine 2020-0 Yes 100mg Take 100 Un [facility] 100 mg 5-25 mg by [facility] of tablet 00:00: mouth at [place] [address] bedtime. [facility] SERTraline 2020-0 Yes 50mg Take 50 mg U nivers 50 mg 5-25 by mouth [facility] of tablet 00:00: at [place] [address] bedtime. [facility] lamoTRIgine 2020-0 Yes 200mg Take 200 U nivers 200 mg 5-25 mg by [facility] of tablet 00:00: mouth at [place] [address] bedtime. [facility] QUEtiapine 2020-0 Yes 100mg Take 100 Un [facility] 100 mg 5-25 mg by [facility] of tablet 00:00: mouth at [place] [address] bedtime. [facility] SERTraline 2020-0 Yes 50mg Take 50 mg U nivers 50 mg 5-25 by mouth [facility] of tablet 00:00: at [place] [address] bedtime. [facility] lamoTRIgine 2020-0 Yes 200mg Take 200 U nivers 200 mg 5-25 mg by [facility] of tablet 00:00: mouth at [place] [address] bedtime. [facility] QUEtiapine 2020-0 Yes 100mg Take 100 Un [facility] 100 mg 5-25 mg by [facility] of tablet 00:00: mouth at [place] [address] bedtime. [facility] SERTraline 2020-0 Yes 50mg Take 50 mg U nivers 50 mg 5-25 by mouth [facility] of tablet 00:00: at [place] [address] bedtime. [facility] lamoTRIgine 2020-0 Yes 200mg Take 200 U nivers 200 mg 5-25 mg by [facility] of tablet 00:00: mouth at [place] [address] bedtime. [facility] QUEtiapine 2020-0 Yes 100mg Take 100 Un [facility] 100 mg 5-25 mg by [facility] of tablet 00:00: mouth at [place] [address] bedtime. [facility] SERTraline 2020-0 Yes 50mg Take 50 mg U nivers 50 mg 5-25 by mouth [facility] of tablet 00:00: at [place] [address] bedtime. [facility] lamoTRIgine 2020-0 Yes 200mg Take 200 U nivers 200 mg 5-25 mg by [facility] of tablet 00:00: mouth at [place] [address] bedtime. [facility] QUEtiapine 2020-0 Yes 100mg Take 100 Un [facility] 100 mg 5-25 mg by [facility] of tablet 00:00: mouth at [place] [address] bedtime. [facility] SERTraline 2020-0 Yes 50mg Take 50 mg U nivers 50 mg 5-25 by mouth [facility] of tablet 00:00: at [place] [address] bedtime. [facility] lamoTRIgine 1-0 Yes 200mg Take 200 U nivers 200 mg 5-25 mg by [facility] of tablet 00:00: mouth at [place] [address] bedtime. [facility] QUEtiapine 1-0 Yes 100mg Take 100 Un [facility] 100 mg 5-25 mg by [facility] of tablet 00:00: mouth at [place] [address] bedtime. [facility] SERTraline 1-0 Yes 50mg Take 50 mg U nivers 50 mg 5-25 by mouth [facility] of tablet 00:00: at [place] [address] bedtime. [facility] lamoTRIgine 1-0 Yes 200mg Take 200 U nivers 200 mg 5-25 mg by [facility] of tablet 00:00: mouth at [place] [address] bedtime. [facility] QUEtiapine 1-0 Yes 100mg Take 100 Un [facility] 100 mg 5-25 mg by [facility] of tablet 00:00: mouth at [place] [address] bedtime. [facility] SERTraline 1-0 Yes 50mg Take 50 mg U nivers 50 mg 5-25 by mouth [facility] of tablet 00:00: at [place] [address] bedtime. [facility] lamoTRIgine 1-0 Yes 200mg Take 200 U nivers 200 mg 5-25 mg by [facility] of tablet 00:00: mouth at [place] [address] bedtime. [facility] QUEtiapine 1-0 Yes 100mg Take 100 Un [facility] 100 mg 5-25 mg by [facility] of tablet 00:00: mouth at [place] [address] bedtime. [facility] SERTraline 1-0 Yes 50mg Take 50 mg U nivers 50 mg 5-25 by mouth [facility] of tablet 00:00: at [place] [address] bedtime. [facility] lamoTRIgine 1-0 Yes 200mg Take 200 U nivers 200 mg 5-25 mg by [facility] of tablet 00:00: mouth at [place] [address] bedtime. [facility] QUEtiapine 1-0 Yes 100mg Take 100 Un [facility] 100 mg 5-25 mg by [facility] of tablet 00:00: mouth at [place] [address] bedtime. [facility] SERTraline 1-0 Yes 50mg Take 50 mg U nivers 50 mg 5-25 by mouth [facility] of tablet 00:00: at [place] [address] bedtime. [facility] lamoTRIgine 1-0 Yes 200mg Take 200 U nivers 200 mg 5-25 mg by [facility] of tablet 00:00: mouth at [place] [address] bedtime. [facility] QUEtiapine 2020-0 Yes 100mg Take 100 Un [facility] 100 mg 5-25 mg by [facility] of tablet 00:00: mouth at [place] [address] bedtime. [facility] SERTraline 2020-0 Yes 50mg Take 50 mg U nivers 50 mg 5-25 by mouth [facility] of tablet 00:00: at [place] [address] bedtime. [facility] lamoTRIgine 2020-0 Yes 200mg Take 200 U nivers 200 mg 5-25 mg by [facility] of tablet 00:00: mouth at [place] [address] bedtime. [facility] QUEtiapine 2020-0 Yes 100mg Take 100 Un [facility] 100 mg 5-25 mg by [facility] of tablet 00:00: mouth at [place] [address] bedtime. [facility] SERTraline 2020-0 Yes 50mg Take 50 mg U nivers 50 mg 5-25 by mouth [facility] of tablet 00:00: at [place] [address] bedtime. [facility] lamoTRIgine 2020-0 Yes 200mg Take 200 U nivers 200 mg 5-25 mg by [facility] of tablet 00:00: mouth at [place] [address] bedtime. [facility] QUEtiapine 2020-0 Yes 100mg Take 100 Un [facility] 100 mg 5-25 mg by [facility] of tablet 00:00: mouth at [place] [address] bedtime. [facility] SERTraline 2020-0 Yes 50mg Take 50 mg U nivers 50 mg 5-25 by mouth [facility] of tablet 00:00: at [place] [address] bedtime. [facility] lamoTRIgine 2020-0 Yes 200mg Take 200 U nivers 200 mg 5-25 mg by [facility] of tablet 00:00: mouth at [place] [address] bedtime. [facility] QUEtiapine 2020-0 Yes 100mg Take 100 Un [facility] 100 mg 5-25 mg by [facility] of tablet 00:00: mouth at [place] [address] bedtime. [facility] SERTraline 2020-0 Yes 50mg Take 50 mg U nivers 50 mg 5-25 by mouth [facility] of tablet 00:00: at [place] [address] bedtime. [facility] lamoTRIgine 1-0 Yes 200mg Take 200 U nivers 200 mg 5-25 mg by [facility] of tablet 00:00: mouth at [place] [address] bedtime. [facility] QUEtiapine 2020-0 Yes 100mg Take 100 Un [facility] 100 mg 5-25 mg by [facility] of tablet 00:00: mouth at [place] [address] bedtime. [facility] SERTraline 2020-0 Yes 50mg Take 50 mg U nivers 50 mg 5-25 by mouth [facility] of tablet 00:00: at [place] [address] bedtime. [facility] lamoTRIgine 2020-0 Yes 200mg Take 200 U nivers 200 mg 5-25 mg by [facility] of tablet 00:00: mouth at [place] [address] bedtime. [facility] QUEtiapine 2020-0 Yes 100mg Take 100 Un [facility] 100 mg 5-25 mg by [facility] of tablet 00:00: mouth at [place] [address] bedtime. [facility] SERTraline 2020-0 Yes 50mg Take 50 mg U nivers 50 mg 5-25 by mouth [facility] of tablet 00:00: at [place] [address] bedtime. [facility] lamoTRIgine 2020-0 Yes 200mg Take 200 U nivers 200 mg 5-25 mg by [facility] of tablet 00:00: mouth at [place] [address] bedtime. [facility] QUEtiapine 2020-0 Yes 100mg Take 100 Un [facility] 100 mg 5-25 mg by [facility] of tablet 00:00: mouth at [place] [address] bedtime. [facility] SERTraline 2020-0 Yes 50mg Take 50 mg U nivers 50 mg 5-25 by mouth [facility] of tablet 00:00: at [place] [address] bedtime. [facility] lamoTRIgine 2020-0 Yes 200mg Take 200 U nivers 200 mg 5-25 mg by [facility] of tablet 00:00: mouth at [place] [address] bedtime. [facility] QUEtiapine 2020-0 Yes 100mg Take 100 Un [facility] 100 mg 5-25 mg by [facility] of tablet 00:00: mouth at [place] [address] bedtime. [facility] SERTraline 2020-0 Yes 50mg Take 50 mg U nivers 50 mg 5-25 by mouth [facility] of tablet 00:00: at [place] [address] bedtime. [facility] lamoTRIgine 2020-0 Yes 200mg Take 200 U nivers 200 mg 5-25 mg by [facility] of tablet 00:00: mouth at [place] [address] bedtime. [facility] QUEtiapine 2020-0 Yes 100mg Take 100 Un [facility] 100 mg 5-25 mg by [facility] of tablet 00:00: mouth at [place] [address] bedtime. [facility] SERTraline 2020-0 Yes 50mg Take 50 mg U nivers 50 mg 5-25 by mouth [facility] of tablet 00:00: at [place] [address] bedtime. [facility] lamoTRIgine 2020-0 Yes 200mg Take 200 U nivers 200 mg 5-25 mg by [facility] of tablet 00:00: mouth at [place] [address] bedtime. [facility] QUEtiapine 2020-0 Yes 100mg Take 100 Un [facility] 100 mg 5-25 mg by [facility] of tablet 00:00: mouth at [place] [address] bedtime. [facility] SERTraline 2020-0 Yes 50mg Take 50 mg U nivers 50 mg 5-25 by mouth [facility] of tablet 00:00: at [place] [address] bedtime. [facility] lamoTRIgine 2020-0 Yes 200mg Take 200 U nivers 200 mg 5-25 mg by [facility] of tablet 00:00: mouth at [place] [address] bedtime. [facility] QUEtiapine 2020-0 Yes 100mg Take 100 Un [facility] 100 mg 5-25 mg by [facility] of tablet 00:00: mouth at [place] [address] bedtime. [facility] SERTraline 2020-0 Yes 50mg Take 50 mg U nivers 50 mg 5-25 by mouth [facility] of tablet 00:00: at [place] [address] bedtime. [facility] lamoTRIgine 2020-0 Yes 200mg Take 200 U nivers 200 mg 5-25 mg by [facility] of tablet 00:00: mouth at [place] [address] bedtime. [facility] QUEtiapine 2020-0 Yes 100mg Take 100 Un [facility] 100 mg 5-25 mg by [facility] of tablet 00:00: mouth at [place] [address] bedtime. [facility] SERTraline 2020-0 Yes 50mg Take 50 mg U nivers 50 mg 5-25 by mouth [facility] of tablet 00:00: at [place] [address] bedtime. [facility] lamoTRIgine 2020-0 Yes 200mg Take 200 U nivers 200 mg 5-25 mg by [facility] of tablet 00:00: mouth at [place] [address] bedtime. [facility] QUEtiapine 2020-0 Yes 100mg Take 100 Un [facility] 100 mg 5-25 mg by [facility] of tablet 00:00: mouth at [place] [address] bedtime. [facility] SERTraline 2020-0 Yes 50mg Take 50 mg U nivers 50 mg 5-25 by mouth [facility] of tablet 00:00: at [place] [address] bedtime. [facility] lamoTRIgine 1-0 Yes 200mg Take 200 U nivers 200 mg 5-25 mg by [facility] of tablet 00:00: mouth at [place] [address] bedtime. [facility] QUEtiapine 1-0 Yes 100mg Take 100 Un [facility] 100 mg 5-25 mg by [facility] of tablet 00:00: mouth at [place] [address] bedtime. [facility] SERTraline 2020-0 Yes 50mg Take 50 mg U nivers 50 mg 5-25 by mouth [facility] of tablet 00:00: at [place] [address] bedtime. [facility] lamoTRIgine 2020-0 Yes 200mg Take 200 U nivers 200 mg 5-25 mg by [facility] of tablet 00:00: mouth at [place] [address] bedtime. [facility] QUEtiapine 2020-0 Yes 100mg Take 100 Un [facility] 100 mg 5-25 mg by [facility] of tablet 00:00: mouth at [place] [address] bedtime. [facility] SERTraline 2020-0 Yes 50mg Take 50 mg U nivers 50 mg 5-25 by mouth [facility] of tablet 00:00: at [place] [address] bedtime. [facility] lamoTRIgine 2020-0 Yes 200mg Take 200 U nivers 200 mg 5-25 mg by [facility] of tablet 00:00: mouth at [place] [address] bedtime. [facility] QUEtiapine 2020-0 Yes 100mg Take 100 Un [facility] 100 mg 5-25 mg by [facility] of tablet 00:00: mouth at [place] [address] bedtime. [facility] SERTraline 2020-0 Yes 50mg Take 50 mg U nivers 50 mg 5-25 by mouth [facility] of tablet 00:00: at [place] [address] bedtime. [facility] lamoTRIgine 1-0 Yes 200mg Take 200 U nivers 200 mg 5-25 mg by [facility] of tablet 00:00: mouth at [place] [address] bedtime. [facility] QUEtiapine 1-0 Yes 100mg Take 100 Un [facility] 100 mg 5-25 mg by [facility] of tablet 00:00: mouth at [place] [address] bedtime. [facility] SERTraline 1-0 Yes 50mg Take 50 mg U nivers 50 mg 5-25 by mouth [facility] of tablet 00:00: at [place] [address] bedtime. [facility] lamoTRIgine 1-0 Yes 200mg Take 200 U nivers 200 mg 5-25 mg by [facility] of tablet 00:00: mouth at [place] [address] bedtime. [facility] QUEtiapine 2020-0 Yes 100mg Take 100 Un [facility] 100 mg 5-25 mg by [facility] of tablet 00:00: mouth at [place] [address] bedtime. [facility] SERTraline 2020-0 Yes 50mg Take 50 mg U nivers 50 mg 5-25 by mouth [facility] of tablet 00:00: at [place] [address] bedtime. [facility] lamoTRIgine 2020-0 Yes 200mg Take 200 U nivers 200 mg 5-25 mg by [facility] of tablet 00:00: mouth at [place] [address] bedtime. [facility] QUEtiapine 2020-0 Yes 100mg Take 100 Un [facility] 100 mg 5-25 mg by [facility] of tablet 00:00: mouth at [place] [address] bedtime. [facility] SERTraline 2020-0 Yes 50mg Take 50 mg U nivers 50 mg 5-25 by mouth [facility] of tablet 00:00: at [place] [address] bedtime. [facility] lamoTRIgine 2020-0 Yes 200mg Take 200 U nivers 200 mg 5-25 mg by [facility] of tablet 00:00: mouth at [place] [address] bedtime. [facility] QUEtiapine 2020-0 Yes 100mg Take 100 Un [facility] 100 mg 5-25 mg by [facility] of tablet 00:00: mouth at [place] [address] bedtime. [facility] SERTraline 2020-0 Yes 50mg Take 50 mg U nivers 50 mg 5-25 by mouth [facility] of tablet 00:00: at [place] [address] bedtime. [facility] lamoTRIgine 2020-0 Yes 200mg Take 200 U nivers 200 mg 5-25 mg by [facility] of tablet 00:00: mouth at [place] [address] bedtime. [facility] QUEtiapine 2020-0 Yes 100mg Take 100 Un [facility] 100 mg 5-25 mg by [facility] of tablet 00:00: mouth at [place] [address] bedtime. [facility] SERTraline 2020-0 Yes 50mg Take 50 mg U nivers 50 mg 5-25 by mouth [facility] of tablet 00:00: at [place] [address] bedtime. [facility] lamoTRIgine 2020-0 Yes 200mg Take 200 U nivers 200 mg 5-25 mg by [facility] of tablet 00:00: mouth at [place] [address] bedtime. [facility] QUEtiapine 2020-0 Yes 100mg Take 100 Un [facility] 100 mg 5-25 mg by [facility] of tablet 00:00: mouth at [place] [address] bedtime. [facility] SERTraline 2020-0 Yes 50mg Take 50 mg U nivers 50 mg 5-25 by mouth [facility] of tablet 00:00: at [place] [address] bedtime. [facility] lamoTRIgine 2020-0 Yes 200mg Take 200 U nivers 200 mg 5-25 mg by [facility] of tablet 00:00: mouth at [place] [address] bedtime. [facility] QUEtiapine 2020-0 Yes 100mg Take 100 Un [facility] 100 mg 5-25 mg by [facility] of tablet 00:00: mouth at [place] [address] bedtime. [facility] SERTraline 2020-0 Yes 50mg Take 50 mg U nivers 50 mg 5-25 by mouth [facility] of tablet 00:00: at [place] [address] bedtime. [facility] lamoTRIgine 2020-0 Yes 200mg Take 200 U nivers 200 mg 5-25 mg by [facility] of tablet 00:00: mouth at [place] [address] bedtime. [facility] QUEtiapine 2020-0 Yes 100mg Take 100 Un [facility] 100 mg 5-25 mg by [facility] of tablet 00:00: mouth at [place] [address] bedtime. [facility] SERTraline 2020-0 Yes 50mg Take 50 mg U nivers 50 mg 5-25 by mouth [facility] of tablet 00:00: at [place] [address] bedtime. [facility] lamoTRIgine 2020-0 Yes 200mg Take 200 U nivers 200 mg 5-25 mg by [facility] of tablet 00:00: mouth at [place] [address] bedtime. [facility] QUEtiapine 2020-0 Yes 100mg Take 100 Un [facility] 100 mg 5-25 mg by [facility] of tablet 00:00: mouth at [place] [address] bedtime. [facility] SERTraline 2020-0 Yes 50mg Take 50 mg U nivers 50 mg 5-25 by mouth [facility] of tablet 00:00: at [place] [address] bedtime. [facility] lamoTRIgine 2020-0 Yes 200mg Take 200 U nivers 200 mg 5-25 mg by [facility] of tablet 00:00: mouth at [place] [address] bedtime. [facility] QUEtiapine 2020-0 Yes 100mg Take 100 Un [facility] 100 mg 5-25 mg by [facility] of tablet 00:00: mouth at [place] [address] bedtime. [facility] SERTraline 2020-0 Yes 50mg Take 50 mg U nivers 50 mg 5-25 by mouth [facility] of tablet 00:00: at [place] [address] bedtime. [facility] lamoTRIgine 1-0 Yes 200mg Take 200 U nivers 200 mg 5-25 mg by [facility] of tablet 00:00: mouth at [place] [address] bedtime. [facility] QUEtiapine 2020-0 Yes 100mg Take 100 Un [facility] 100 mg 5-25 mg by [facility] of tablet 00:00: mouth at [place] [address] bedtime. [facility] SERTraline 2020-0 Yes 50mg Take 50 mg U nivers 50 mg 5-25 by mouth [facility] of tablet 00:00: at [place] [address] bedtime. [facility] lamoTRIgine 2020-0 Yes 200mg Take 200 U nivers 200 mg 5-25 mg by [facility] of tablet 00:00: mouth at [place] [address] bedtime. [facility] QUEtiapine 2020-0 Yes 100mg Take 100 Un [facility] 100 mg 5-25 mg by [facility] of tablet 00:00: mouth at [place] [address] bedtime. [facility] SERTraline 2020-0 Yes 50mg Take 50 mg U nivers 50 mg 5-25 by mouth [facility] of tablet 00:00: at [place] [address] bedtime. [facility] lamoTRIgine 2020-0 Yes 200mg Take 200 U nivers 200 mg 5-25 mg by [facility] of tablet 00:00: mouth at [place] [address] bedtime. [facility] QUEtiapine 2020-0 Yes 100mg Take 100 Un [facility] 100 mg 5-25 mg by [facility] of tablet 00:00: mouth at [place] [address] bedtime. [facility] SERTraline 2020-0 Yes 50mg Take 50 mg U nivers 50 mg 5-25 by mouth [facility] of tablet 00:00: at [place] [address] bedtime. [facility] lamoTRIgine 1-0 Yes 200mg Take 200 U nivers 200 mg 5-25 mg by [facility] of tablet 00:00: mouth at [place] [address] bedtime. [facility] QUEtiapine 1-0 Yes 100mg Take 100 Un [facility] 100 mg 5-25 mg by [facility] of tablet 00:00: mouth at [place] [address] bedtime. [facility] SERTraline 2020-0 Yes 50mg Take 50 mg U nivers 50 mg 5-25 by mouth [facility] of tablet 00:00: at [place] [address] bedtime. [facility] lamoTRIgine 2020-0 Yes 200mg Take 200 U nivers 200 mg 5-25 mg by [facility] of tablet 00:00: mouth at [place] [address] bedtime. [facility] QUEtiapine 2020-0 Yes 100mg Take 100 Un [facility] 100 mg 5-25 mg by [facility] of tablet 00:00: mouth at [place] [address] bedtime. [facility] SERTraline 2020-0 Yes 50mg Take 50 mg U nivers 50 mg 5-25 by mouth [facility] of tablet 00:00: at [place] [address] bedtime. [facility] lamoTRIgine 2020-0 Yes 200mg Take 200 U nivers 200 mg 5-25 mg by [facility] of tablet 00:00: mouth at [place] [address] bedtime. [facility] QUEtiapine 2020-0 Yes 100mg Take 100 Un [facility] 100 mg 5-25 mg by [facility] of tablet 00:00: mouth at [place] [address] bedtime. [facility] SERTraline 2020-0 Yes 50mg Take 50 mg U nivers 50 mg 5-25 by mouth [facility] of tablet 00:00: at [place] [address] bedtime. [facility] lamoTRIgine 2020-0 Yes 200mg Take 200 U nivers 200 mg 5-25 mg by [facility] of tablet 00:00: mouth at [place] [address] bedtime. [facility] QUEtiapine 2020-0 Yes 100mg Take 100 Un [facility] 100 mg 5-25 mg by [facility] of tablet 00:00: mouth at [place] [address] bedtime. [facility] SERTraline 2020-0 Yes 50mg Take 50 mg U nivers 50 mg 5-25 by mouth [facility] of tablet 00:00: at [place] [address] bedtime. [facility] lamoTRIgine 2020-0 Yes 200mg Take 200 U nivers 200 mg 5-25 mg by [facility] of tablet 00:00: mouth at [place] [address] bedtime. [facility] QUEtiapine 2020-0 Yes 100mg Take 100 Un [facility] 100 mg 5-25 mg by [facility] of tablet 00:00: mouth at [place] [address] bedtime. [facility] SERTraline 2020-0 Yes 50mg Take 50 mg U nivers 50 mg 5-25 by mouth [facility] of tablet 00:00: at [place] [address] bedtime. [facility] lamoTRIgine 2020-0 Yes 200mg Take 200 U nivers 200 mg 5-25 mg by [facility] of tablet 00:00: mouth at [place] [address] bedtime. [facility] QUEtiapine 2020-0 Yes 100mg Take 100 Un [facility] 100 mg 5-25 mg by [facility] of tablet 00:00: mouth at [place] [address] bedtime. [facility] SERTraline 2020-0 Yes 50mg Take 50 mg U nivers 50 mg 5-25 by mouth [facility] of tablet 00:00: at [place] [address] bedtime. [facility] lamoTRIgine 2020-0 Yes 200mg Take 200 U nivers 200 mg 5-25 mg by [facility] of tablet 00:00: mouth at [place] [address] bedtime. [facility] QUEtiapine 2020-0 Yes 100mg Take 100 Un [facility] 100 mg 5-25 mg by [facility] of tablet 00:00: mouth at [place] [address] bedtime. [facility] SERTraline 2020-0 Yes 50mg Take 50 mg U nivers 50 mg 5-25 by mouth [facility] of tablet 00:00: at [place] [address] bedtime. [facility] lamoTRIgine 2020-0 Yes 200mg Take 200 U nivers 200 mg 5-25 mg by [facility] of tablet 00:00: mouth at [place] [address] bedtime. [facility] QUEtiapine 2020-0 Yes 100mg Take 100 Un [facility] 100 mg 5-25 mg by [facility] of tablet 00:00: mouth at [place] [address] bedtime. [facility] SERTraline 2020-0 Yes 50mg Take 50 mg U nivers 50 mg 5-25 by mouth [facility] of tablet 00:00: at [place] [address] bedtime. [facility] lamoTRIgine 2020-0 Yes 200mg Take 200 U nivers 200 mg 5-25 mg by [facility] of tablet 00:00: mouth at [place] [address] bedtime. [facility] QUEtiapine 2020-0 Yes 100mg Take 100 Un [facility] 100 mg 5-25 mg by [facility] of tablet 00:00: mouth at [place] [address] bedtime. [facility] SERTraline 2020-0 Yes 50mg Take 50 mg U nivers 50 mg 5-25 by mouth [facility] of tablet 00:00: at [place] [address] bedtime. [facility] lamoTRIgine 2020-0 Yes 200mg Take 200 U nivers 200 mg 5-25 mg by [facility] of tablet 00:00: mouth at [place] [address] bedtime. [facility] QUEtiapine 2020-0 Yes 100mg Take 100 Un [facility] 100 mg 5-25 mg by [facility] of tablet 00:00: mouth at [place] [address] bedtime. [facility] SERTraline 2020-0 Yes 50mg Take 50 mg U nivers 50 mg 5-25 by mouth [facility] of tablet 00:00: at [place] [address] bedtime. [facility] lamoTRIgine 2020-0 Yes 200mg Take 200 U nivers 200 mg 5-25 mg by [facility] of tablet 00:00: mouth at [place] [address] bedtime. [facility] QUEtiapine 2020-0 Yes 100mg Take 100 Un [facility] 100 mg 5-25 mg by [facility] of tablet 00:00: mouth at [place] [address] bedtime. [facility] SERTraline 2020-0 Yes 50mg Take 50 mg U nivers 50 mg 5-25 by mouth [facility] of tablet 00:00: at [place] [address] bedtime. [facility] lamoTRIgine 2020-0 Yes 200mg Take 200 U nivers 200 mg 5-25 mg by [facility] of tablet 00:00: mouth at [place] [address] bedtime. [facility] QUEtiapine 2020-0 Yes 100mg Take 100 Un [facility] 100 mg 5-25 mg by [facility] of tablet 00:00: mouth at [place] [address] bedtime. [facility] SERTraline 2020-0 Yes 50mg Take 50 mg U nivers 50 mg 5-25 by mouth [facility] of tablet 00:00: at [place] [address] bedtime. [facility] lamoTRIgine 2020-0 Yes 200mg Take 200 U nivers 200 mg 5-25 mg by [facility] of tablet 00:00: mouth at [place] [address] bedtime. [facility] QUEtiapine 2020-0 Yes 100mg Take 100 Un [facility] 100 mg 5-25 mg by [facility] of tablet 00:00: mouth at [place] [address] bedtime. [facility] SERTraline 2020-0 Yes 50mg Take 50 mg U nivers 50 mg 5-25 by mouth [facility] of tablet 00:00: at [place] [address] bedtime. [facility] lamoTRIgine 1-0 Yes 200mg Take 200 U nivers 200 mg 5-25 mg by [facility] of tablet 00:00: mouth at [place] [address] bedtime. [facility] QUEtiapine 2020-0 Yes 100mg Take 100 Un [facility] 100 mg 5-25 mg by [facility] of tablet 00:00: mouth at [place] [address] bedtime. [facility] SERTraline 2020-0 Yes 50mg Take 50 mg U nivers 50 mg 5-25 by mouth [facility] of tablet 00:00: at [place] [address] bedtime. [facility] lamoTRIgine 2020-0 Yes 200mg Take 200 U nivers 200 mg 5-25 mg by [facility] of tablet 00:00: mouth at [place] [address] bedtime. [facility] QUEtiapine 2020-0 Yes 100mg Take 100 Un [facility] 100 mg 5-25 mg by [facility] of tablet 00:00: mouth at [place] [address] bedtime. [facility] SERTraline 2020-0 Yes 50mg Take 50 mg U nivers 50 mg 5-25 by mouth [facility] of tablet 00:00: at [place] [address] bedtime. [facility] lamoTRIgine 2020-0 Yes 200mg Take 200 U nivers 200 mg 5-25 mg by [facility] of tablet 00:00: mouth at [place] [address] bedtime. [facility] QUEtiapine 2020-0 Yes 100mg Take 100 Un [facility] 100 mg 5-25 mg by [facility] of tablet 00:00: mouth at [place] [address] bedtime. [facility] SERTraline 2020-0 Yes 50mg Take 50 mg U nivers 50 mg 5-25 by mouth [facility] of tablet 00:00: at [place] [address] bedtime. [facility] lamoTRIgine 2020-0 Yes 200mg Take 200 U nivers 200 mg 5-25 mg by [facility] of tablet 00:00: mouth at [place] [address] bedtime. [facility] QUEtiapine 2020-0 Yes 100mg Take 100 Un [facility] 100 mg 5-25 mg by [facility] of tablet 00:00: mouth at [place] [address] bedtime. [facility] SERTraline 2020-0 Yes 50mg Take 50 mg U nivers 50 mg 5-25 by mouth [facility] of tablet 00:00: at [place] [address] bedtime. [facility] lamoTRIgine 2020-0 Yes 200mg Take 200 U nivers 200 mg 5-25 mg by [facility] of tablet 00:00: mouth at [place] [address] bedtime. [facility] QUEtiapine 2020-0 Yes 100mg Take 100 Un [facility] 100 mg 5-25 mg by [facility] of tablet 00:00: mouth at [place] [address] bedtime. [facility] SERTraline 2020-0 Yes 50mg Take 50 mg U nivers 50 mg 5-25 by mouth [facility] of tablet 00:00: at [place] [address] bedtime. [facility] lamoTRIgine 2020-0 Yes 200mg Take 200 U nivers 200 mg 5-25 mg by [facility] of tablet 00:00: mouth at [place] [address] bedtime. [facility] QUEtiapine 2020-0 Yes 100mg Take 100 Un [facility] 100 mg 5-25 mg by [facility] of tablet 00:00: mouth at [place] [address] bedtime. [facility] SERTraline 2020-0 Yes 50mg Take 50 mg U nivers 50 mg 5-25 by mouth [facility] of tablet 00:00: at [place] [address] bedtime. [facility] lamoTRIgine 2020-0 Yes 200mg Take 200 U nivers 200 mg 5-25 mg by [facility] of tablet 00:00: mouth at [place] [address] bedtime. [facility] QUEtiapine 2020-0 Yes 100mg Take 100 Un david 100 mg 5-25 mg by ity of tablet 00:00: mouth at [place] [address] bedtime. [facility] SERTraline 2020-0 Yes 50mg Take 50 mg U nivers 50 mg 5-25 by mouth ity of tablet 00:00: at [place] [address] bedtime. [facility] lamoTRIgine 2020-0 Yes 200mg Take 200 U nivers 200 mg 5-25 mg by ity of tablet 00:00: mouth at [place] [address] bedtime. [facility] QUEtiapine 2020-0 Yes 100mg Take 100 Un [facility] 100 mg 5-25 mg by ity of tablet 00:00: mouth at [place] [address] bedtime. [facility] lamoTRIgine 2020-0 Yes 200mg Take 200 U nivers 200 mg 5-25 mg by ity of tablet 00:00: mouth at [place] [address] bedtime. [facility] QUEtiapine 2020-0 Yes 100mg Take 100 Un [facility] 100 mg 5-25 mg by ity of tablet 00:00: mouth at [place] [address] bedtime. [facility] lamoTRIgine 2020-0 Yes 200mg Take 200 U nivers 200 mg 5-25 mg by ity of tablet 00:00: mouth at [place] [address] bedtime. [facility] QUEtiapine 2020-0 Yes 100mg Take 100 Un [facility] 100 mg 5-25 mg by ity of tablet 00:00: mouth at [place] [address] bedtime. [facility] lamoTRIgine 2020-0 Yes 200mg Take 200 U nivers 200 mg 5-25 mg by ity of tablet 00:00: mouth at [place] [address] bedtime. [facility] QUEtiapine 1-0 Yes 100mg Take 100 Un davdi 100 mg 5-25 mg by ity of tablet 00:00: mouth at [place] [address] bedtime. [facility] lamoTRIgine 1-0 Yes 200mg Take 200 U nivers 200 mg 5-25 mg by ity of tablet 00:00: mouth at [place] [address] bedtime. [facility] QUEtiapine 2020-0 Yes 100mg Take 100 Un [facility] 100 mg 5-25 mg by ity of tablet 00:00: mouth at [place] [address] bedtime. [facility] lamoTRIgine 2020-0 Yes 200mg Take 200 U nivers 200 mg 5-25 mg by ity of tablet 00:00: mouth at [place] [address] bedtime. [facility] QUEtiapine 2020-0 Yes 100mg Take 100 Un [facility] 100 mg 5-25 mg by ity of tablet 00:00: mouth at [place] [address] bedtime. [facility] lamoTRIgine 2020-0 Yes 200mg Take 200 U nivers 200 mg 5-25 mg by ity of tablet 00:00: mouth at [place] [address] bedtime. [facility] QUEtiapine 2020-0 Yes 100mg Take 100 Un [facility] 100 mg 5-25 mg by ity of tablet 00:00: mouth at [place] [address] bedtime. [facility] lamoTRIgine 1-0 Yes 200mg Take 200 U nivers 200 mg 5-25 mg by ity of tablet 00:00: mouth at [place] [address] bedtime. [facility] QUEtiapine 1-0 Yes 100mg Take 100 Un [facility] 100 mg 5-25 mg by ity of tablet 00:00: mouth at [place] [address] bedtime. [facility] lamoTRIgine 1-0 Yes 200mg Take 200 U nivers 200 mg 5-25 mg by ity of tablet 00:00: mouth at [place] [address] bedtime. [facility] QUEtiapine 1-0 Yes 100mg Take 100 Un [facility] 100 mg 5-25 mg by ity of tablet 00:00: mouth at [place] [address] bedtime. [facility] lamoTRIgine 1-0 Yes 200mg Take 200 U nivers 200 mg 5-25 mg by ity of tablet 00:00: mouth at [place] [address] bedtime. [facility] QUEtiapine 2021-0 Yes 100mg Take 100 [facility] 100 mg 5-25 mg by ity of tablet 00:00: mouth at [place] [address] bedtime. [facility] lamoTRIgine 1-0 Yes 200mg Take 200 U nivers 200 mg 5-25 mg by [facility]y of tablet 00:00: mouth at [place] [address] bedtime. [facility] QUEtiapine 1-0 Yes 100mg Take 100 Un [facility] 100 mg 5-25 mg by ity of tablet 00:00: mouth at [place] [address] bedtime. [facility] lamoTRIgine 1-0 Yes 200mg Take 200 U nivers 200 mg 5-25 mg by [facility]y of tablet 00:00: mouth at [place] [address] bedtime. [facility] QUEtiapine 1-0 Yes 100mg Take 100 Un [facility] 100 mg 5-25 mg by ity of tablet 00:00: mouth at [place] [address] bedtime. [facility] lamoTRIgine 1-0 Yes 200mg Take 200 U nivers 200 mg 5-25 mg by ity of tablet 00:00: mouth at [place] [address] bedtime. [facility] QUEtiapine 1-0 Yes 100mg Take 100 Un [facility] 100 mg 5-25 mg by ity of tablet 00:00: mouth at [place] [address] bedtime. [facility] lamoTRIgine 1-0 Yes 200mg Take 200 U nivers 200 mg 5-25 mg by ity of tablet 00:00: mouth at [place] [address] bedtime. [facility] QUEtiapine 1-0 Yes 100mg Take 100 Un [facility] 100 mg 5-25 mg by ity of tablet 00:00: mouth at [place] [address] bedtime. [facility] lamoTRIgine 1-0 Yes 200mg Take 200 U nivers 200 mg 5-25 mg by ity of tablet 00:00: mouth at [place] [address] bedtime. [facility] QUEtiapine 1-0 Yes 100mg Take 100 Un [facility] 100 mg 5-25 mg by ity of tablet 00:00: mouth at [place] [address] bedtime. [facility] lamoTRIgine 2021-0 Yes 200mg Take 200 U nivers 200 mg 5-25 mg by [facility]y of tablet 00:00: mouth at [place] [address] bedtime. [facility] QUEtiapine 1-0 Yes 100mg Take 100 Un [facility] 100 mg 5-25 mg by ity of tablet 00:00: mouth at [place] [address] bedtime. [facility] lamoTRIgine 1-0 Yes 200mg Take 200 U nivers 200 mg 5-25 mg by [facility] of tablet 00:00: mouth at [place] [address] bedtime. [facility] QUEtiapine 1-0 Yes 100mg Take 100 Un [facility] 100 mg 5-25 mg by ity of tablet 00:00: mouth at [place] [address] bedtime. [facility] lamoTRIgine 1-0 Yes 200mg Take 200 U nivers 200 mg 5-25 mg by ity of tablet 00:00: mouth at [place] [address] bedtime. [facility] QUEtiapine 1-0 Yes 100mg Take 100 Un [facility] 100 mg 5-25 mg by ity of tablet 00:00: mouth at [place] [address] bedtime. [facility] lamoTRIgine 1-0 Yes 200mg Take 200 U nivers 200 mg 5-25 mg by ity of tablet 00:00: mouth at [place] [address] bedtime. [facility] QUEtiapine 1-0 Yes 100mg Take 100 Un [facility] 100 mg 5-25 mg by ity of tablet 00:00: mouth at [place] [address] bedtime. [facility] lamoTRIgine 1-0 Yes 200mg Take 200 U nivers 200 mg 5-25 mg by ity of tablet 00:00: mouth at [place] [address] bedtime. [facility] QUEtiapine 1-0 Yes 100mg Take 100 Un [facility] 100 mg 5-25 mg by ity of tablet 00:00: mouth at [place] [address] bedtime. [facility] lamoTRIgine 1-0 Yes 200mg Take 200 U nivers 200 mg 5-25 mg by ity of tablet 00:00: mouth at [place] [address] bedtime. [facility] QUEtiapine 1-0 Yes 100mg Take 100 Un [facility] 100 mg 5-25 mg by ity of tablet 00:00: mouth at [place] [address] bedtime. [facility] lamoTRIgine 1-0 Yes 200mg Take 200 U nivers 200 mg 5-25 mg by ity of tablet 00:00: mouth at [place] [address] bedtime. [facility] QUEtiapine 1-0 Yes 100mg Take 100 Un [facility] 100 mg 5-25 mg by ity of tablet 00:00: mouth at [place] [address] bedtime. [facility] lamoTRIgine 1-0 Yes 200mg Take 200 U nivers 200 mg 5-25 mg by ity of tablet 00:00: mouth at [place] [address] bedtime. [facility] QUEtiapine 1-0 Yes 100mg Take 100 Un [facility] 100 mg 5-25 mg by ity of tablet 00:00: mouth at [place] [address] bedtime. [facility] lamoTRIgine 1-0 Yes 200mg Take 200 U nivers 200 mg 5-25 mg by ity of tablet 00:00: mouth at [place] [address] bedtime. [facility] QUEtiapine 1-0 Yes 100mg Take 100 Un [facility] 100 mg 5-25 mg by ity of tablet 00:00: mouth at [place] [address] bedtime. [facility] lamoTRIgine 1-0 Yes 200mg Take 200 U nivers 200 mg 5-25 mg by ity of tablet 00:00: mouth at [place] [address] bedtime. [facility] QUEtiapine 1-0 Yes 100mg Take 100 Un [facility] 100 mg 5-25 mg by ity of tablet 00:00: mouth at [place] [address] bedtime. [facility] lamoTRIgine 1-0 Yes 200mg Take 200 U nivers 200 mg 5-25 mg by ity of tablet 00:00: mouth at [place] [address] bedtime. [facility] QUEtiapine 1-0 Yes 100mg Take 100 Un [facility] 100 mg 5-25 mg by ity of tablet 00:00: mouth at [place] [address] bedtime. [facility] lamoTRIgine 1-0 Yes 200mg Take 200 U nivers 200 mg 5-25 mg by ity of tablet 00:00: mouth at [place] [address] bedtime. [facility] QUEtiapine 1-0 Yes 100mg Take 100 Un [facility] 100 mg 5-25 mg by ity of tablet 00:00: mouth at [place] [address] bedtime. [facility] lamoTRIgine 1-0 Yes 200mg Take 200 U nivers 200 mg 5-25 mg by ity of tablet 00:00: mouth at [place] [address] bedtime. [facility] QUEtiapine 1-0 Yes 100mg Take 100 Un dav[facility] 100 mg 5-25 mg by ity of tablet 00:00: mouth at [place] [address] bedtime. [facility] lamoTRIgine 1-0 Yes 200mg Take 200 U nivers 200 mg 5-25 mg by ity of tablet 00:00: mouth at [place] [address] bedtime. [facility] QUEtiapine 1-0 Yes 100mg Take 100 Un [facility] 100 mg 5-25 mg by ity of tablet 00:00: mouth at [place] [address] bedtime. [facility] lamoTRIgine 1-0 Yes 200mg Take 200 U nivers 200 mg 5-25 mg by ity of tablet 00:00: mouth at [place] [address] bedtime. [facility] QUEtiapine 1-0 Yes 100mg Take 100 Un david 100 mg 5-25 mg by ity of tablet 00:00: mouth at [place] [address] bedtime. [facility] lamoTRIgine 1-0 Yes 200mg Take 200 U nivers 200 mg 5-25 mg by ity of tablet 00:00: mouth at [place] [address] bedtime. [facility] QUEtiapine 1-0 Yes 100mg Take 100 Un david 100 mg 5-25 mg by ity of tablet 00:00: mouth at [place] [address] bedtime. [facility] lamoTRIgine 1-0 Yes 200mg Take 200 U nivers 200 mg 5-25 mg by ity of tablet 00:00: mouth at [place] [address] bedtime. [facility] QUEtiapine 1-0 Yes 100mg Take 100 Un david 100 mg 5-25 mg by [facility]y of tablet 00:00: mouth at [place] [address] bedtime. [facility] lamoTRIgine 1-0 Yes 200mg Take 200 U nivers 200 mg 5-25 mg by ity of tablet 00:00: mouth at [place] [address] bedtime. [facility] QUEtiapine 1-0 Yes 100mg Take 100 Un david 100 mg 5-25 mg by ity of tablet 00:00: mouth at [place] [address] bedtime. [facility] lamoTRIgine 1-0 Yes 200mg Take 200 U nivers 200 mg 5-25 mg by ity of tablet 00:00: mouth at [place] [address] bedtime. [facility] QUEtiapine 1-0 Yes 100mg Take 100 Un david 100 mg 5-25 mg by ity of tablet 00:00: mouth at [place] [address] bedtime. [facility] lamoTRIgine 1-0 Yes 200mg Take 200 U nivers 200 mg 5-25 mg by ity of tablet 00:00: mouth at [place] [address] bedtime. [facility] QUEtiapine 1-0 Yes 100mg Take 100 Un david 100 mg 5-25 mg by ity of tablet 00:00: mouth at [place] [address] bedtime. [facility] lamoTRIgine 2020-0 Yes 200mg Take 200 U nivers 200 mg 5-25 mg by ity of tablet 00:00: mouth at [place] [address] bedtime. [facility] QUEtiapine 2020-0 Yes 100mg Take 100 Un david 100 mg 5-25 mg by ity of tablet 00:00: mouth at [place] [address] bedtime. [facility] lamoTRIgine 2020-0 Yes 200mg Take 200 U nivers 200 mg 5-25 mg by ity of tablet 00:00: mouth at [place] [address] bedtime. [facility] QUEtiapine 2020-0 Yes 100mg Take 100 Un david 100 mg 5-25 mg by ity of tablet 00:00: mouth at [place] [address] bedtime. [facility] SERTraline 3- No 50mg Take 50 mg [facility] 50 mg 5-25 -26 by mouth ity of tablet 00:00: 00:00 at [place] 00 :00 bedtime. [facility] SERTraline 2020-3- No 50mg Take 50 mg [facility] 50 mg 5-25 -26 by mouth ity of tablet 00:00: 00:00 at [place] 00 :00 bedtime. [facility] SERTraline 2020-0 3- No 50mg Take 50 mg [facility] 50 mg 5-25 -26 by mouth ity of tablet 00:00: 00:00 at [place] 00 :00 bedtime. [facility] SERTraline 2020-0 3- No 50mg Take 50 mg [facility] 50 mg 5-25 -26 by mouth ity of tablet 00:00: 00:00 at [place] 00 :00 bedtime. [facility] SERTraline 2020-0 3- No 50mg Take 50 mg [facility] 50 mg 5-25 -26 by mouth ity of tablet 00:00: 00:00 at [place] 00 :00 bedtime. [facility] SERTraline 2020-0 3- No 50mg Take 50 mg [facility] 50 mg 5-25 -26 by mouth ity of tablet 00:00: 00:00 at [place] 00 :00 bedtime. [facility] SERTraline 2020-0 3- No 50mg Take 50 mg [facility] 50 mg 5-25 -26 by mouth ity of tablet 00:00: 00:00 at [place] 00 :00 bedtime. [facility] SERTraline 2022- No 50mg Take 50 mg [facility] 50 mg 12-08 by mouth ity of tablet 00:00: 00:00 at [place] 00 :00 bedtime. [facility] SERTraline 2022- No 50mg Take 50 mg [facility] 50 mg 12-08 by mouth ity of tablet 00:00: 00:00 at [place] 00 :00 bedtime. [facility] SERTraline 2022- No 50mg Take 50 mg [facility] 50 mg 12-08 by mouth ity of tablet 00:00: 00:00 at [place] 00 :00 bedtime. [facility] SERTraline 2022- No 50mg Take 50 mg [facility] 50 mg 12-08 by mouth ity of tablet 00:00: 00:00 at [place] 00 :00 bedtime. [facility] oxyCODONE-a 2021- No TAKE 1 [facility] vers cetaminophe 5-02 01-22 TABLET BY it y of n 5-325 mg 00:00: 00:00 MOUTH [place] per tablet 00 :00 EVERY 4 Medica l HOURS Branch NEEDED FOR PAIN oxyCODONE-a 2021- No TAKE 1 [facility] vers cetaminophe 5-19 -22 TABLET BY it y of n 5-325 mg 00:00: 00:00 MOUTH [place] per tablet 00 :00 EVERY 4 Medica l HOURS Branch NEEDED FOR PAIN oxyCODONE-a 2021- No TAKE 1 Uni vers cetaminophe 5-19 -22 TABLET BY it y of n 5-325 mg 00:00: 00:00 MOUTH [place] per tablet 00 :00 EVERY 4 Medica l HOURS Branch NEEDED FOR PAIN oxyCODONE-a 2021- No TAKE 1 Uni vers cetaminophe 5-19 -22 TABLET BY it y of n 5-325 mg 00:00: 00:00 MOUTH [place] per tablet 00 :00 EVERY 4 Medica l HOURS Branch NEEDED FOR PAIN oxyCODONE-a 2021- No TAKE 1 Uni vers cetaminophe 5-19 -22 TABLET BY it y of n 5-325 mg 00:00: 00:00 MOUTH [place] per tablet 00 :00 EVERY 4 Medica l HOURS Branch NEEDED FOR PAIN oxyCODONE-a 2021- No TAKE 1 [facility] vers cetaminophe 5-19 01-05 TABLET BY it y of n 5-325 mg 00:00: 00:00 MOUTH [place] per tablet 00 :00 EVERY 4 Medica l HOURS Branch NEEDED FOR PAIN oxyCODONE-a 2021- No TAKE 1 Uni vers cetaminophe 5-01-05 TABLET BY it y of n 5-325 mg 00:00: 00:00 MOUTH [place] per tablet 00 :00 EVERY 4 Medica l HOURS Branch NEEDED FOR PAIN oxyCODONE-a 2021- No TAKE 1 Uni vers cetaminophe 5-01-05 TABLET BY it y of n 5-325 mg 00:00: 00:00 MOUTH [place] per tablet 00 :00 EVERY 4 Medica l HOURS Branch NEEDED FOR PAIN Immunizations Ordered Filled Date Status Comments Source Immunization Name Immunization Name Influenza Virus 2022-04-08 Completed [facility] [...] Me dical BIVALENT 0.5ML, IM, Branc h (MODERNA) Influenza Virus 2022-04-08 Completed [facility] of Vaccine Quad IM, 00:00:00 [place] [facility] Preserv and ABX Branch Free 6 MO-64 YRS SARS-COV-2 COVID-19 2022-04-08 Completed Unive rsity of VACCINE 12 YRS+, 00:00:00 [place] [facility] BIVALENT 0.5ML, IM, Branc h (MODERNA) Influenza Virus 2022-04-08 Completed [facility] of Vaccine Quad IM, 00:00:00 [place] [facility] Preserv and ABX Branch Free 6 MO-64 YRS SARS-COV-2 COVID-19 2022-04-08 Completed Unive rsity of VACCINE 12 YRS+, 00:00:00 [place] [facility] BIVALENT 0.5ML, IM, Branc h (MODERNA-BLUE TOP) Influenza Virus 2022-04-08 Completed [facility] of Vaccine Quad IM, 00:00:00 [place] [facility] Preserv and ABX Branch Free 6 MO-64 YRS SARS-COV-2 COVID-19 2022-04-08 Completed Unive rsity of VACCINE 12 YRS+, 00:00:00 [place] [facility] BIVALENT 0.5ML, IM, Branc h (MODERNA-BLUE TOP) Influenza Virus 2022-04-08 Completed [facility] of Vaccine Quad IM, 00:00:00 [place] [facility] Preserv and ABX Branch Free 6 MO-64 YRS SARS-COV-2 COVID-19 2022-04-08 Completed Unive rsity of VACCINE 12 YRS+, 00:00:00 [place] [facility] BIVALENT 0.5ML, IM, Branc h (MODERNA-BLUE TOP) Influenza Virus 2022-04-08 Completed [facility] of Vaccine Quad IM, 00:00:00 [place] [facility] Preserv and ABX Branch Free 6 MO-64 YRS SARS-COV-2 COVID-19 2022-04-08 Completed Unive rsity of VACCINE 12 YRS+, 00:00:00 [place] [facility] BIVALENT 0.5ML, IM, Branc h (MODERNA-BLUE TOP) Influenza Virus 2022-04-08 Completed [facility] Vaccine Quad IM, 00:00:00 [place] [facility] Preserv and ABX Branch Free 6 MO-64 YRS SARS-COV-2 COVID-19 2022-04-08 Completed Unive rsity of VACCINE 12 YRS+, 00:00:00 [place] [facility] BIVALENT 0.5ML, IM, Branc h (MODERNA-BLUE TOP) Influenza Virus 2022-04-08 Completed [facility] Vaccine Quad IM, 00:00:00 [place] [facility] Preserv and ABX Branch Free 6 MO-64 YRS SARS-COV-2 COVID-19 2022-04-08 Completed Unive rsity of VACCINE 12 YRS+, 00:00:00 [place] [facility] BIVALENT 0.5ML, IM, Branc h (MODERNA-BLUE TOP) Influenza Virus 2022-04-08 Completed [facility] of Vaccine Quad IM, 00:00:00 [place] [facility] Preserv and ABX Branch Free 6 MO-64 YRS SARS-COV-2 COVID-19 2022-04-08 Completed Unive rsity of VACCINE 12 YRS+, 00:00:00 [place] [facility] BIVALENT 0.5ML, IM, Branc h (MODERNA-BLUE TOP) Influenza Virus 2022-04-08 Completed [facility] of Vaccine Quad IM, 00:00:00 [place] [facility] Preserv and ABX Branch Free 6 MO-64 YRS SARS-COV-2 COVID-19 2022-04-08 Completed Unive rsity of VACCINE 12 YRS+, 00:00:00 [place] [facility] BIVALENT 0.5ML, IM, Branc h (MODERNA-BLUE TOP) Influenza Virus 2022-04-08 Completed [facility] Vaccine Quad IM, 00:00:00 [place] [facility] Preserv and ABX Branch Free 6 MO-64 YRS SARS-COV-2 COVID-19 2022-04-08 Completed Unive rsity of VACCINE 12 YRS+, 00:00:00 [place] [facility] BIVALENT 0.5ML, IM, Branc h (MODERNA-BLUE TOP) Influenza Virus 2022-04-08 Completed [facility] of Vaccine Quad IM, 00:00:00 [place] [facility] Preserv and ABX Branch Free 6 MO-64 YRS SARS-COV-2 COVID-19 2022-04-08 Completed Unive rsity of VACCINE 12 YRS+, 00:00:00 [place] [facility] BIVALENT 0.5ML, IM, Branc h (MODERNA-BLUE TOP) Influenza Virus 2022-04-08 Completed [facility] of Vaccine Quad IM, 00:00:00 [place] [facility] Preserv and ABX Branch Free 6 MO-64 YRS SARS-COV-2 COVID-19 2022-04-08 Completed Unive rsity of VACCINE 12 YRS+, 00:00:00 [place] [facility] BIVALENT 0.5ML, IM, Branc h (MODERNA-BLUE TOP) Influenza Virus 2022-04-08 Completed [facility] of Vaccine Quad IM, 00:00:00 [place] [facility] Preserv and ABX Branch Free 6 MO-64 YRS SARS-COV-2 COVID-19 2022-04-08 Completed Unive rsity of VACCINE 12 YRS+, 00:00:00 [place] Me [facility] BIVALENT 0.5ML, IM, Branc h (MODERNA-BLUE TOP) Influenza Virus 2022-04-08 Completed [facility] of Vaccine Quad IM, 00:00:00 [place] [facility] Preserv and ABX Branch Free 6 MO-64 YRS SARS-COV-2 COVID-19 2022-04-08 Completed Unive rsity of VACCINE 12 YRS+, 00:00:00 [place] Me [facility] BIVALENT 0.5ML, IM, Branc h (MODERNA-BLUE TOP) Influenza Virus 2022-04-08 Completed [facility] of Vaccine Quad IM, 00:00:00 [place] [facility] Preserv and ABX Branch Free 6 MO-64 YRS SARS-COV-2 COVID-19 2022-04-08 Completed Unive rsity of VACCINE 12 YRS+, 00:00:00 [place] [facility] BIVALENT 0.5ML, IM, Branc h (MODERNA-BLUE TOP) Influenza Virus 2022-04-08 Completed [facility] of Vaccine Quad IM, 00:00:00 [place] [facility] Preserv and ABX Branch Free 6 MO-64 YRS SARS-COV-2 COVID-19 2022-04-08 Completed Unive rsity of VACCINE 12 YRS+, 00:00:00 [place] [facility] BIVALENT 0.5ML, IM, Branc h (MODERNA-BLUE TOP) Influenza Virus 2022-04-08 Completed [facility] of Vaccine Quad IM, 00:00:00 [place] [facility] Preserv and ABX Branch Free 6 MO-64 YRS SARS-COV-2 COVID-19 2022-04-08 Completed Unive rsity of VACCINE 12 YRS+, 00:00:00 [place] [facility] BIVALENT 0.5ML, IM, Branc h (MODERNA-BLUE TOP) Influenza Virus 2022-04-08 Completed [facility] of Vaccine Quad IM, 00:00:00 [place] [facility] Preserv and ABX Branch Free 6 MO-64 YRS SARS-COV-2 COVID-19 2022-04-08 Completed Unive rsity of VACCINE 12 YRS+, 00:00:00 [place] Me [facility] BIVALENT 0.5ML, IM, Branc h (MODERNA-BLUE TOP) Influenza Virus 2022-04-08 Completed [facility] of Vaccine Quad IM, 00:00:00 [place] [facility] Preserv and ABX Branch Free 6 MO-64 YRS (FLUCELVAX) SARS-COV-2 COVID-19 2022-04-08 Completed Unive rsity of VACCINE 12 YRS+, 00:00:00 [place] [facility] BIVALENT 0.5ML, IM, Branc h (MODERNA-BLUE TOP) Influenza Virus 2022-04-08 Completed [facility] of Vaccine Quad IM, 00:00:00 [place] [facility] Preserv and ABX Branch Free 6 MO-64 YRS (FLUCELVAX) SARS-COV-2 COVID-19 2022-04-08 Completed Unive rsity of VACCINE 12 YRS+, 00:00:00 [place] [facility] BIVALENT 0.5ML, IM, Branc h (MODERNA-BLUE TOP) Influenza Virus 2022-04-08 Completed [facility] of Vaccine Quad IM, 00:00:00 [place] [facility] Preserv and ABX Branch Free 6 MO-64 YRS (FLUCELVAX) SARS-COV-2 COVID-19 2022-04-08 Completed Unive rsity of VACCINE 12 YRS+, 00:00:00 [place] [facility] BIVALENT 0.5ML, IM, Branc h (MODERNA-BLUE TOP) Influenza Virus 2022-04-08 Completed [facility] of Vaccine Quad IM, 00:00:00 [place] [facility] Preserv and ABX Branch Free 6 MO-64 YRS (FLUCELVAX) SARS-COV-2 COVID-19 2022-04-08 Completed Unive rsity of VACCINE 12 YRS+, 00:00:00 [place] [facility] BIVALENT 0.5ML, IM, Branc h (MODERNA-BLUE TOP) Influenza Virus 2022-04-08 Completed [facility] of Vaccine Quad IM, 00:00:00 [place] [facility] Preserv and ABX Branch Free 6 MO-64 YRS (FLUCELVAX) SARS-COV-2 COVID-19 2022-04-08 Completed Unive rsity of VACCINE 12 YRS+, 00:00:00 [place] Me [facility] BIVALENT 0.5ML, IM, Branc h (MODERNA-BLUE TOP) Influenza Virus 2022-04-08 Completed [facility] of Vaccine Quad IM, 00:00:00 [place] Me [facility] Preserv and ABX Branch Free 6 MO-64 YRS (FLUCELVAX) SARS-COV-2 COVID-19 2022-04-08 Completed Unive rsity of VACCINE 12 YRS+, 00:00:00 [place] Me [facility] BIVALENT 0.5ML, IM, Branc h (MODERNA-BLUE TOP) Influenza Virus 2022-04-08 Completed [facility] of Vaccine Quad IM, 00:00:00 [place] [facility] Preserv and ABX Branch Free 6 MO-64 YRS (FLUCELVAX) SARS-COV-2 COVID-19 2022-04-08 Completed Unive rsity of VACCINE 12 YRS+, 00:00:00 [place] Me [facility] BIVALENT 0.5ML, IM, Branc h (MODERNA-BLUE TOP) Influenza Virus 2022-04-08 Completed [facility] of Vaccine Quad IM, 00:00:00 [place] [facility] Preserv and ABX Branch Free 6 MO-64 YRS (FLUCELVAX) SARS-COV-2 COVID-19 2022-04-08 Completed Unive rsity of VACCINE 12 YRS+, 00:00:00 [place] [facility] BIVALENT 0.5ML, IM, Branc h (MODERNA-BLUE TOP) Pneumococcal 20 2021-11-24 Completed [facility] of Conjugate, PCV20 00:00:00 [place] [facility] (Prevnar 20) Branch Pneumococcal 20 2021-11-24 Completed [facility] of Conjugate, PCV20 00:00:00 [place] [facility] (Prevnar 20) Branch Pneumococcal 20 2021-11-24 Completed [facility] of Conjugate, PCV20 00:00:00 [place] [facility] (Prevnar 20) Branch Pneumococcal 20 2021-11-24 Completed [facility] of Conjugate, PCV20 00:00:00 [place] [facility] (Prevnar 20) Branch Pneumococcal 20 2021-11-24 Completed [facility] of Conjugate, PCV20 00:00:00 [place] [facility] (Prevnar 20) Branch Pneumococcal 20 2021-11-24 Completed [facility]it y of Conjugate, PCV20 00:00:00 [facility] dical (Prevnar 20) Branch Pneumococcal 20 2021-11-24 [...] Universit y of Conjugate, PCV20 00:00:00 [place] [facility] (Prevnar 20) Branch Pneumococcal 20 2021-11-24 [...] Universit y of Conjugate, PCV20 00:00:00 [place] [facility] (Prevnar 20) Branch Pneumococcal 20 2021-11-24 Completed [facility]it y of Conjugate, PCV20 00:00:00 [place] Me [facility] (Prevnar 20) Branch Pneumococcal 20 2021-11-24 Completed Universit y of Conjugate, PCV20 00:00:00 [place] Me dical (Prevnar 20) Branch Pneumococcal 20 [...] Universit y of Conjugate, PCV20 00:00:00 [place] [facility] (Prevnar 20) Branch Pneumococcal 20 2021-11-24 Completed [facility]it y of Conjugate, PCV20 00:00:00 [place] [facility] (Prevnar 20) Branch Pneumococcal 20 2021-11-24 Completed [facility]it y of Conjugate, PCV20 00:00:00 [place] [facility] (Prevnar 20) Branch Pneumococcal 20 2021-11-24 Completed Universit y of Conjugate, PCV20 00:00:00 [facility] dical (Prevnar 20) Branch Pneumococcal 20 2021-11-24 Completed Universit y of Conjugate, PCV20 00:00:00 [facility] dical (Prevnar 20) Branch Pneumococcal 20 2021-11-24 Completed Universit y of Conjugate, PCV20 00:00:00 [facility] dical (Prevnar 20) Branch Pneumococcal 20 2021-11-24 Completed Universit y of Conjugate, PCV20 00:00:00 [place] Hi [facility]ical (Prevnar 20) Branch Pneumococcal 20 2021-11-24 Completed Universit y of Conjugate, PCV20 00:00:00 [facility] dical (Prevnar 20) Branch Pneumococcal 20 2021-11-24 Completed Universit y of Conjugate, PCV20 00:00:00 [facility] dical (Prevnar 20) Branch Pneumococcal 20 2021-11-24 Completed Universit y of Conjugate, PCV20 00:00:00 [facility] dical (Prevnar 20) Branch Pneumococcal 20 2021-11-24 Completed Universit y of Conjugate, PCV20 00:00:00 [facility] dical (Prevnar 20) Branch Pneumococcal 20 2021-11-24 Completed Universit y of Conjugate, PCV20 00:00:00 [facility] dical (Prevnar 20) Branch Pneumococcal 20 2021-11-24 Completed Universit y of Conjugate, PCV20 00:00:00 [facility] dical (Prevnar 20) Branch Pneumococcal 20 2021-11-24 Completed Universit y of Conjugate, PCV20 00:00:00 [facility] dical (Prevnar 20) Branch Pneumococcal 20 2021-11-24 Completed Universit y of Conjugate, PCV20 00:00:00 [place] [facility] (Prevnar 20) Branch Pneumococcal 20 2021-11-24 Completed Universit y of Conjugate, PCV20 00:00:00 [facility] dical (Prevnar 20) Branch Pneumococcal 20 2021-11-24 Completed Universit y of Conjugate, PCV20 00:00:00 [facility] dical (Prevnar 20) Branch Pneumococcal 20 2021-11-24 [...] Completed Universit y of Conjugate, PCV20 00:00:00 [place] [facility] (Prevnar 20) Branch Pneumococcal 20 2021-11-24 Completed Universit y of Conjugate, PCV20 00:00:00 [place] [facility] (Prevnar 20) Branch Pneumococcal 20 2021-11-24 Completed Universit y of Conjugate, PCV20 00:00:00 [place] [facility] (Prevnar 20) Branch Pneumococcal 20 [...] Universit y of Conjugate, PCV20 00:00:00 [place] [facility] (Prevnar 20) Branch Pneumococcal 20 2021-11-24 [...] Completed Universit y of Conjugate, PCV20 00:00:00 [place] [facility] (Prevnar 20) Branch SARS-COV-2 COVID-19 2021-05-11 [...] Unive rsity of MODERNA 12+ YRS 00:00:00 [facility] VACCINE Branch SARS-COV-2 COVID-19 2021-05-11 Completed Unive rsity of MODERNA 12+ YRS 00:00:00 [facility] VACCINE Branch SARS-COV-2 COVID-19 2021-05-11 Completed Unive rsity of MODERNA 12+ YRS 00:00:00 [facility] VACCINE Branch SARS-COV-2 COVID-19 2021-05-11 Completed Unive rsity of MODERNA 12+ YRS 00:00:00 [facility] VACC[facility] Branch SARS-COV-2 COVID-19 2021-05-11 Completed Unive rsity of MODERNA 12+ YRS 00:00:00 [facility] VACCINE Branch SARS-COV-2 COVID-19 2021-05-11 Completed Unive rsity of MODERNA 12+ YRS 00:00:00 [facility] VACCINE Branch SARS-COV-2 COVID-19 2021-05-11 Completed Unive rsity of MODERNA 12+ YRS 00:00:00 [facility] VACCINE Branch SARS-COV-2 COVID-19 2021-05-11 Completed Unive rsity of MODERNA 12+ YRS 00:00:00 [facility] VACCINE Branch SARS-COV-2 COVID-19 2021-05-11 Completed Unive rsity of MODERNA 12+ YRS 00:00:00 [facility] VACCINE [place] Influenza Virus 2021-04-29 Completed Universit y of Vaccine - Whole 00:00:00 [facility] Influenza Virus 2021-04-29 Completed Universit y of Vaccine - Whole 00:00:00 [facility] Influenza Virus 2021-04-29 Completed Universit y of Vaccine - Whole 00:00:00 [facility] Influenza Virus 2021-04-29 Completed Universit y of Vaccine - Whole 00:00:00 [facility] Influenza Virus 2021-04-29 Completed Universit y of Vaccine - Whole 00:00:00 [facility] Influenza Virus 2021-04-29 Completed Universit y of Vaccine - Whole 00:00:00 [facility] Influenza Virus 2021-04-29 Completed [facility]it y of Vaccine - Whole 00:00:00 [place] [facility] Influenza Virus 2021-04-29 Completed Universit y of Vaccine - Whole 00:00:00 [facility] Influenza Virus 2021-04-29 Completed Universit y of Vaccine - Whole 00:00:00 [facility] Influenza Virus 2021-04-29 Completed Universit y of Vaccine - Whole 00:00:00 [facility] Influenza Virus 2021-04-29 Completed Universit y of Vaccine - Whole 00:00:00 [facility] Influenza Virus 2021-04-29 Completed Universit y of Vaccine - Whole 00:00:00 [facility] Influenza Virus 2021-04-29 Completed Universit y of Vaccine - Whole 00:00:00 [facility] Influenza Virus 2021-04-29 Completed Universit y of Vaccine - Whole 00:00:00 [facility] Influenza Virus 2021-04-29 Completed Universit y of Vaccine - Whole 00:00:00 [facility] Influenza Virus 2021-04-29 Completed Universit y of Vaccine - Whole 00:00:00 [facility] Influenza Virus 2021-04-29 Completed Universit y of Vaccine - Whole 00:00:00 [facility] Influenza Virus 2021-04-29 Completed Universit y of Vaccine - Whole 00:00:00 [facility] Influenza Virus 2021-04-29 Completed Universit y of Vaccine - Whole 00:00:00 [facility] Influenza Virus 2021-04-29 Completed Universit y of Vaccine - Whole 00:00:00 [facility] Influenza Virus 2021-04-29 Completed Universit y of Vaccine - Whole 00:00:00 [facility] Influenza Virus 2021-04-29 Completed Universit y of Vaccine - Whole 00:00:00 [facility] Influenza Virus 2021-04-29 Completed Universit y of Vaccine - Whole 00:00:00 [facility] Influenza Virus 2021-04-29 Completed Universit y of Vaccine - Whole 00:00:00 [facility] Influenza Virus [...] 2021-04-22 Completed Universit y of Vaccine 00:00:00 [place] [facility] Branch Influenza Virus 2021-04-22 Completed Universit y of Vaccine 00:00:00 [facility] Influenza Virus 2021-04-22 Completed Universit y of Vaccine 00:00:00 [facility] Influenza Virus 2021-04-22 Completed Universit y of Vaccine 00:00:00 [place] [facility] Influenza Virus 2021-04-22 Completed Universit y of Vaccine 00:00:00 [facility] Influenza Virus 2021-04-22 Completed Universit y of Vaccine 00:00:00 [facility] Branch Influenza Virus 2021-04-22 Completed Universit y of Vaccine 00:00:00 [place] [facility] Influenza Virus 2021-04-22 Completed Universit y of Vaccine 00:00:00 [facility] Influenza Virus 2021-04-22 Completed Universit y of Vaccine 00:00:00 [facility] Influenza Virus 2021-04-22 Completed Universit y of Vaccine 00:00:00 [facility] Influenza Virus 2021-04-22 Completed Universit y of Vaccine 00:00:00 [facility] Influenza Virus 2021-04-22 Completed [facility]it y of Vaccine 00:00:00 [facility] Influenza Virus 2021-04-22 Completed Universit y of Vaccine 00:00:00 [facility] Influenza Virus 2021-04-22 Completed Universit y of Vaccine 00:00:00 [facility] Influenza Virus 2021-04-22 Completed Universit y of Vaccine 00:00:00 [facility] Influenza Virus 2021-04-22 Completed Universit y of Vaccine 00:00:00 [facility] Influenza Virus 2021-04-22 Completed [facility]it y of Vaccine 00:00:00 [facility] Influenza Virus 2021-04-22 Completed Universit y of Vaccine 00:00:00 [facility] Influenza Virus 2021-04-22 Completed Universit y of Vaccine 00:00:00 [facility] Influenza Virus 2021-04-22 Completed [facility]it y of Vaccine 00:00:00 [facility] Influenza Virus 2021-04-22 Completed [facility]it y of Vaccine 00:00:00 [facility] Influenza Virus 2021-04-22 Completed [facility]it y of Vaccine 00:00:00 [facility] Influenza Virus 2021-04-22 Completed Universit y of Vaccine 00:00:00 [facility] Influenza Virus 2021-04-22 Completed Universit y of Vaccine 00:00:00 [facility] Influenza Virus 2021-04-22 Completed Universit y of Vaccine 00:00:00 [facility] Influenza Virus 2021-04-22 Completed [facility]it y of Vaccine 00:00:00 [facility] Influenza Virus 2021-04-22 Completed [facility]it y of Vaccine 00:00:00 [facility] Influenza Virus 2021-04-22 Completed [facility]it y of Vaccine 00:00:00 [facility] Influenza Virus 2021-04-22 Completed [facility]it y of Vaccine 00:00:00 [facility] Influenza Virus 2021-04-22 Completed [facility]it y of Vaccine 00:00:00 [place] [facility] Influenza Virus 2021-04-22 Completed Universit y of Vaccine 00:00:00 [facility] Influenza Virus 2021-04-22 Completed Universit y of Vaccine 00:00:00 [facility] Influenza Virus 2021-04-22 Completed Universit y of Vaccine 00:00:00 [facility] Influenza Virus 2021-04-22 Completed Universit y of Vaccine 00:00:00 [facility] Influenza Virus 2021-04-22 Completed Universit y of Vaccine 00:00:00 [facility] Influenza Virus 2021-04-22 Completed Universit y of Vaccine 00:00:00 [facility] Influenza Virus 2021-04-22 Completed Universit y of Vaccine 00:00:00 [facility] Influenza Virus 2021-04-22 Completed Universit y of Vaccine 00:00:00 [facility] Influenza Virus 2021-04-22 Completed Universit y of Vaccine 00:00:00 [facility] Influenza Virus 2021-04-22 Completed [facility]it y of Vaccine 00:00:00 [facility] Influenza Virus 2021-04-22 Completed Universit y of Vaccine 00:00:00 [facility] Influenza Virus 2021-04-22 Completed Universit y of Vaccine 00:00:00 [facility] Influenza Virus 2021-04-22 Completed [facility]it y of Vaccine 00:00:00 [facility] Influenza Virus 2021-04-22 Completed Universit y of Vaccine 00:00:00 [facility] Influenza Virus 2021-04-22 Completed Universit y of Vaccine 00:00:00 [facility] Influenza Virus 2021-04-22 Completed Universit y of Vaccine 00:00:00 [facility] Influenza Virus 2021-04-22 Completed Universit y of Vaccine 00:00:00 [facility] Influenza Virus 2021-04-22 Completed Universit y of Vaccine 00:00:00 [facility] Influenza Virus 2021-04-22 Completed Universit y of Vaccine 00:00:00 [facility] Influenza Virus 2021-04-22 Completed Universit y of Vaccine 00:00:00 [facility] Influenza Virus 2021-04-22 Completed Universit y [...] Unive rsity of MODERNA 12+ YRS 00:00:00 [facility] ical VACCINE Branch SARS-COV-2 COVID-19 2020-10-08 Completed Unive rsity of MODERNA 12+ YRS 00:00:00 [facility] VACCINE Branch SARS-COV-2 COVID-19 2020-10-08 Completed Unive rsity of MODERNA 12+ YRS 00:00:00 [facility] VACC[facility] Branch SARS-COV-2 COVID-19 2020-10-08 Completed Unive rsity of MODERNA 12+ YRS 00:00:00 [facility] VACCINE Branch Zoster Vaccine 2018-12-28 Completed University of Recombinant 00:00:00 [facility] Zoster Vaccine 2018-12-28 Completed University of Recombinant 00:00:00 [facility] Zoster Vaccine 2018-12-28 Completed University of Recombinant 00:00:00 [facility] Zoster Vaccine 2018-12-28 Completed University of Recombinant 00:00:00 [facility] Zoster Vaccine 2018-12-28 Completed University of Recombinant 00:00:00 [facility] Zoster Vaccine 2018-12-28 Completed University of Recombinant 00:00:00 [facility] Zoster Vaccine 2018-12-28 Completed University of Recombinant 00:00:00 [facility] Zoster Vaccine 2018-12-28 Completed University of Recombinant 00:00:00 [facility] Zoster Vaccine 2018-12-28 Completed University of Recombinant 00:00:00 [facility] Zoster Vaccine 2018-12-28 Completed University of Recombinant 00:00:00 [facility] Zoster Vaccine 2018-12-28 Completed University of Recombinant 00:00:00 [facility] Zoster Vaccine 2018-12-28 Completed University of Recombinant 00:00:00 [facility] Zoster Vaccine 2018-12-28 Completed University of Recombinant 00:00:00 [facility] Zoster Vaccine 2018-12-28 Completed University of Recombinant 00:00:00 [facility] Zoster Vaccine 2018-12-28 Completed University of Recombinant 00:00:00 [facility] Zoster Vaccine 2018-12-28 Completed University of Recombinant 00:00:00 [facility] Zoster Vaccine 2018-12-28 Completed University of Recombinant 00:00:00 [facility] Zoster Vaccine 2018-12-28 Completed University of Recombinant 00:00:00 [facility] Zoster Vaccine 2018-12-28 Completed University of Recombinant 00:00:00 [facility] Zoster Vaccine 2018-12-28 Completed University of Recombinant 00:00:00 [facility] Zoster Vaccine 2018-12-28 Completed University of Recombinant 00:00:00 [facility] Zoster Vaccine 2018-12-28 Completed University of Recombinant 00:00:00 [facility] Zoster Vaccine 2018-12-28 Completed University of Recombinant 00:00:00 [facility] Zoster Vaccine 2018-12-28 Completed University of Recombinant 00:00:00 [facility] Zoster Vaccine 2018-10-29 Completed University of Recombinant 00:00:00 [facility] Zoster Vaccine 2018-10-29 Completed University of Recombinant 00:00:00 [facility] Zoster Vaccine 2018-10-29 Completed University of Recombinant 00:00:00 [facility] Zoster Vaccine 2018-10-29 Completed University of Recombinant 00:00:00 [facility] Zoster Vaccine 2018-10-29 Completed University of Recombinant 00:00:00 [facility] Zoster Vaccine 2018-10-29 Completed University of Recombinant 00:00:00 [facility] Zoster Vaccine 2018-10-29 Completed University of Recombinant 00:00:00 [facility] Zoster Vaccine 2018-10-29 Completed University of Recombinant 00:00:00 [facility] Zoster Vaccine 2018-10-29 Completed University of Recombinant 00:00:00 [facility] Zoster Vaccine 2018-10-29 Completed University of Recombinant 00:00:00 [facility] Zoster Vaccine 2018-10-29 Completed University of Recombinant 00:00:00 [facility] Zoster Vaccine 2018-10-29 Completed University of Recombinant 00:00:00 [facility] Zoster Vaccine 2018-10-29 Completed University of Recombinant 00:00:00 [facility] Zoster Vaccine 2018-10-29 Completed University of Recombinant 00:00:00 [facility] Zoster Vaccine 2018-10-29 Completed University of Recombinant 00:00:00 [facility] Zoster Vaccine 2018-10-29 Completed University of Recombinant 00:00:00 [facility] Zoster Vaccine 2018-10-29 Completed University of Recombinant 00:00:00 [facility] Zoster Vaccine 2018-10-29 Completed University of Recombinant 00:00:00 [facility] Zoster Vaccine 2018-10-29 Completed University of Recombinant 00:00:00 [facility] Zoster Vaccine 2018-10-29 Completed University of Recombinant 00:00:00 [facility] Zoster Vaccine 2018-10-29 Completed University of Recombinant 00:00:00 [facility] Zoster Vaccine 2018-10-29 Completed University of Recombinant 00:00:00 [place] [facility] Zoster Vaccine 2018-10-29 Completed University of Recombinant 00:00:00 [place] [facility] Zoster Vaccine 2018-10-29 Completed University of Recombinant 00:00:00 [place] [facility] DT/Tetanus 2014-01-29 Completed University of 00:00:00 [place] [facility] DT/Tetanus 2014-01-29 Completed University of 00:00:00 [place] [facility] DT/Tetanus 2014-01-29 Completed University of 00:00:00 [place] [facility] DT/Tetanus 2014-01-29 Completed University of 00:00:00 [place] [facility] DT/Tetanus 2014-01-29 Completed University of 00:00:00 [place] [facility] DT/Tetanus 2014-01-29 Completed University of 00:00:00 [place] [facility] DT/Tetanus 2014-01-29 Completed University of 00:00:00 [place] [facility] DT/Tetanus 2014-01-29 Completed University of 00:00:00 [place] [facility] DT/Tetanus 2014-01-29 Completed University of 00:00:00 [place] [facility] DT/Tetanus 2014-01-29 Completed University of 00:00:00 [place] [facility] DT/Tetanus 2014-01-29 Completed University of 00:00:00 [place] [facility] DT/Tetanus 2014-01-29 Completed University of 00:00:00 [place] [facility] DT/Tetanus 2014-01-29 Completed University of 00:00:00 [place] [facility] DT/Tetanus 2014-01-29 Completed University of 00:00:00 [place] [facility] DT/Tetanus 2014-01-29 Completed University of 00:00:00 [place] [facility] DT/Tetanus 2014-01-29 Completed University of 00:00:00 [place] [facility] DT/Tetanus 2014-01-29 Completed University of 00:00:00 [place] [facility] DT/Tetanus 2014-01-29 Completed University of 00:00:00 [place] [facility] DT/Tetanus 2014-01-29 Completed University of 00:00:00 [place] [facility] DT/Tetanus 2014-01-29 Completed University of 00:00:00 [place] [facility] DT/Tetanus 2014-01-29 Completed University of 00:00:00 [place] [facility] DT/Tetanus 2014-01-29 Completed University of 00:00:00 [place] [facility] DT/Tetanus 2014-01-29 Completed University of 00:00:00 [place] [facility] DT/Tetanus 2014-01-29 Completed University of 00:00:00 [place] [facility] DT/Tetanus 2014-01-29 Completed University of 00:00:00 [place] [facility] DT/Tetanus 2014-01-29 Completed University of 00:00:00 [place] [facility] DT/Tetanus 2014-01-29 Completed University of 00:00:00 [place] [facility] DT/Tetanus 2014-01-29 Completed University of 00:00:00 [place] [facility] DT/Tetanus 2014-01-29 Completed University of 00:00:00 [place] [facility] DT/Tetanus 2014-01-29 Completed University of 00:00:00 [place] [facility] DT/Tetanus 2014-01-29 Completed University of 00:00:00 [place] [facility] DT/Tetanus 2014-01-29 Completed University of 00:00:00 [place] [facility] DT/Tetanus 2014-01-29 Completed University of 00:00:00 [place] [facility] DT/Tetanus 2014-01-29 Completed University of 00:00:00 [place] [facility] DT/Tetanus 2014-01-29 Completed University of 00:00:00 [place] [facility] DT/Tetanus 2014-01-29 Completed University of 00:00:00 [place] [facility] DT/Tetanus 2014-01-29 Completed University of 00:00:00 [place] [facility] DT/Tetanus 2014-01-29 Completed University of 00:00:00 [place] [facility] DT/Tetanus 2014-01-29 Completed University of 00:00:00 [place] [facility] DT/Tetanus 2014-01-29 Completed University of 00:00:00 [place] [facility] DT/Tetanus 2014-01-29 Completed University of 00:00:00 [place] [facility] DT/Tetanus 2014-01-29 Completed University of 00:00:00 [place] [facility] DT/Tetanus 2014-01-29 Completed University of 00:00:00 [place] [facility] DT/Tetanus 2014-01-29 Completed University of 00:00:00 [place] [facility] DT/Tetanus 2014-01-29 Completed University of 00:00:00 [place] [facility] DT/Tetanus 2014-01-29 Completed University of 00:00:00 [place] [facility] DT/Tetanus 2014-01-29 Completed University of 00:00:00 [place] [facility] DT/Tetanus 2014-01-29 Completed University of 00:00:00 [place] [facility] DT/Tetanus 2014-01-29 Completed University of 00:00:00 [place] [facility] DT/Tetanus 2014-01-29 Completed University of 00:00:00 [place] [facility] DT/Tetanus 2014-01-29 Completed University 00:00:00 [facility] DT/Tetanus 2014-01-29 Completed University 00:00:00 [facility] SARS-COV-2 COVID-19 Unknown Completed Unive rsity of MODERNA 12+ YRS [facility] VACCINE Branch SARS-COV-2 COVID-19 Unknown Completed Unive rsity of MODERNA 12+ YRS [facility] VACCINE Branch SARS-COV-2 COVID-19 Unknown Completed Unive rsity of MODERNA 12+ YRS [facility] VACCINE Branch Influenza Virus Unknown Completed Universit y of Vaccine [facility] Pneumococcal 20 Unknown Completed Universit y of Conjugate, PCV20 [facility] dical (Prevnar 20) Branch Influenza Virus Unknown Completed Universit y of Vaccine [facility], [place] [facility] Preserv and ABX Branch Free 6 MO-64 YRS (FLUCELVAX) SARS-COV-2 COVID-19 Unknown Completed Unive rsity of VACCINE 12 YRS+, [facility] dical BIVALENT 0.5ML, IM, Branc h (MODERNA-BLUE TOP) DT/Tetanus Unknown Completed [facility] Influenza Virus Unknown Completed Universit y of Vaccine - Whole [facility] Zoster Vaccine Unknown Completed [facility] Zoster Vaccine Unknown Completed [facility] SARS-COV-2 COVID-19 Unknown Completed Unive rsity of MODERNA 12+ YRS [facility] VACCINE Branch SARS-COV-2 COVID-19 Unknown Completed Unive rsity of MODERNA 12+ YRS [facility] VACCINE Branch SARS-COV-2 COVID-19 Unknown Completed Unive rsity of MODERNA 12+ YRS [facility] VACCINE Branch Influenza Virus Unknown Completed [facility] of Vaccine [facility] Pneumococcal 20 Unknown Completed Universit y of Conjugate, PCV20 [facility] dical (Prevnar 20) Branch Influenza Virus Unknown Completed Universit y of Vaccine [facility], [place] [facility] Preserv and ABX Branch Free 6 MO-64 YRS (FLUCELVAX) SARS-COV-2 COVID-19 Unknown Completed Unive rsity of VACCINE 12 YRS+, [facility] dical BIVALENT 0.5ML, IM, Branc h (MODERNA-BLUE TOP) DT/Tetanus Unknown Completed [facility] Influenza Virus Unknown Completed Universit y of Vaccine - Whole [facility] Branch Zoster Vaccine Unknown Completed [facility] Zoster Vaccine Unknown Completed [facility] SARS-COV-2 COVID-19 Unknown Completed Unive rsity of MODERNA 12+ YRS [facility] VACCINE Branch SARS-COV-2 COVID-19 Unknown Completed Unive rsity of MODERNA 12+ YRS [facility] VACCINE Branch SARS-COV-2 COVID-19 Unknown Completed Unive rsity of MODERNA 12+ YRS [facility] VACCINE Branch Influenza Virus Unknown Completed [facility] of Vaccine [facility] Pneumococcal 20 Unknown Completed Universit y of Conjugate, PCV20 [facility] dical (Prevnar 20) Branch Influenza Virus Unknown Completed Universit y of Vaccine [facility], [facility] dical Preserv and ABX Branch Free 6 MO-64 YRS (FLUCELVAX) SARS-COV-2 COVID-19 Unknown Completed Unive rsity of VACCINE 12 YRS+, [facility] dical BIVALENT 0.5ML, IM, Branc h (MODERNA-BLUE TOP) DT/Tetanus Unknown Completed [facility] Influenza Virus Unknown Completed Universit y of Vaccine - Whole [facility] Zoster Vaccine Unknown Completed [facility] Zoster Vaccine Unknown Completed [facility] SARS-COV-2 COVID-19 Unknown Completed Unive rsity of MODERNA 12+ YRS [facility] VACCINE Branch SARS-COV-2 COVID-19 Unknown Completed Unive rsity of MODERNA 12+ YRS [facility] VACCINE Branch SARS-COV-2 COVID-19 Unknown Completed Unive rsity of MODERNA 12+ YRS [facility] VACCINE Branch Influenza Virus Unknown Completed [facility] Vaccine [facility] Pneumococcal 20 Unknown Completed Universit y of Conjugate, PCV20 [facility] dical (Prevnar 20) Branch Influenza Virus Unknown Completed Universit y of Vaccine Quad IM, [facility] dical Preserv and ABX Branch Free 6 MO-64 YRS (FLUCELVAX) SARS-COV-2 COVID-19 Unknown Completed Unive rsity of VACCINE 12 YRS+, [facility] dical BIVALENT 0.5ML, IM, Branc h (MODERNA-BLUE TOP) DT/Tetanus Unknown Completed [facility] Influenza Virus Unknown Completed Universit y of Vaccine - Whole [facility] Zoster Vaccine Unknown Completed [facility] Zoster Vaccine Unknown Completed [facility] SARS-COV-2 COVID-19 Unknown Completed Unive rsity of MODERNA 12+ YRS [facility] ical VACCINE Branch SARS-COV-2 COVID-19 Unknown Completed Unive rsity of MODERNA 12+ YRS [facility] [place] [facility] VACCINE Branch SARS-COV-2 COVID-19 Unknown Completed Unive rsity of MODERNA 12+ YRS [facility] ical VACCINE Branch Influenza Virus Unknown Completed Universit y of Vaccine [facility] Pneumococcal 20 Unknown Completed Universit y of Conjugate, PCV20 [facility] dical (Prevnar 20) Branch Influenza Virus Unknown Completed Universit y of Vaccine Quad IM, [facility] dical Preserv and ABX Branch Free 6 MO-64 YRS (FLUCELVAX) SARS-COV-2 COVID-19 Unknown Completed Unive rsity of VACCINE 12 YRS+, [facility] dical BIVALENT 0.5ML, IM, Branc h (MODERNA-BLUE TOP) DT/Tetanus Unknown Completed [facility] Influenza Virus Unknown Completed Universit y of Vaccine - Whole [facility] Branch Zoster Vaccine Unknown Completed [facility] Zoster Vaccine Unknown Completed [facility] SARS-COV-2 COVID-19 Unknown Completed Unive rsity of MODERNA 12+ YRS [facility] ical VACCINE Branch SARS-COV-2 COVID-19 Unknown Completed Unive rsity of MODERNA 12+ YRS [facility] ical VACCINE Branch SARS-COV-2 COVID-19 Unknown Completed Unive rsity of MODERNA 12+ YRS [facility] ica VACCINE Branch Influenza Virus Unknown Completed [facility] Vaccine [facility] Pneumococcal 20 Unknown Completed Universit y of Conjugate, PCV20 [facility] dical (Prevnar 20) Branch DT/Tetanus Unknown Completed [facility] Influenza Virus Unknown Completed Universit y of Vaccine - Whole [facility] Branch Zoster Vaccine Unknown Completed [facility] Zoster Vaccine Unknown Completed [facility] SARS-COV-2 COVID-19 Unknown Completed Unive rsity of MODERNA 12+ YRS [facility] ical VACCINE Branch SARS-COV-2 COVID-19 Unknown Completed Unive rsity of MODERNA 12+ YRS [facility] ical VACCINE Branch SARS-COV-2 COVID-19 Unknown Completed Unive rsity of MODERNA 12+ YRS [facility] ical VACCINE Branch Influenza Virus Unknown Completed [facility] Vaccine [facility] Pneumococcal 20 Unknown Completed [facility]it y of Conjugate, PCV20 [place] [facility] (Prevnar 20) Branch DT/Tetanus Unknown Completed [facility] Influenza Virus Unknown Completed [facility]it y of Vaccine - Whole [facility] Zoster Vaccine Unknown Completed [facility] Zoster Vaccine Unknown Completed [facility] SARS-COV-2 COVID-19 Unknown Completed Unive rsity of MODERNA 12+ YRS [facility] ical VACCINE Branch SARS-COV-2 COVID-19 Unknown Completed Unive rsity of MODERNA 12+ YRS [facility] ical VACCINE Branch SARS-COV-2 COVID-19 Unknown Completed Unive rsity of MODERNA 12+ YRS [facility] ical VACCINE Branch Influenza Virus Unknown Completed [facility] Vaccine [facility] Pneumococcal 20 Unknown Completed [facility]it y of Conjugate, PCV20 [place] [facility] (Prevnar 20) Branch DT/Tetanus Unknown Completed [facility] Influenza Virus Unknown Completed Universit y of Vaccine - Whole [facility] Zoster Vaccine Unknown Completed [facility] Zoster Vaccine Unknown Completed [facility] SARS-COV-2 COVID-19 Unknown Completed Unive rsity of MODERNA 12+ YRS [facility] ical VACCINE Branch SARS-COV-2 COVID-19 Unknown Completed Unive rsity of MODERNA 12+ YRS [facility] ical VACCINE Branch SARS-COV-2 COVID-19 Unknown Completed Unive rsity of MODERNA 12+ YRS [facility]ACC[facility] Branch Influenza Virus Unknown Completed [facility] Vacc[facility] Pneumococcal 20 Unknown Completed Universit y of Conjugate, PCV20 [facility] dical (Prevnar 20) Branch DT/Tetanus Unknown Completed [facility] Influenza Virus Unknown Completed Universit y of Vaccine - Whole [facility] Zoster Vaccine Unknown Completed [facility] Zoster Vaccine Unknown Completed [facility] SARS-COV-2 COVID-19 Unknown Completed Unive rsity of MODERNA 12+ YRS [facility] ical VACCINE Branch SARS-COV-2 COVID-19 Unknown Completed Unive rsity of MODERNA 12+ YRS [facility] ical VACCINE Branch SARS-COV-2 COVID-19 Unknown Completed Unive rsity of MODERNA 12+ YRS [facility] ical VACCINE Branch Influenza Virus Unknown Completed [facility] Vaccine [facility] Pneumococcal 20 Unknown Completed Universit y of Conjugate, PCV20 [place] [facility] (Prevnar 20) Branch DT/Tetanus Unknown Completed [facility] Influenza Virus Unknown Completed Universit y of Vaccine - Whole [facility] ical Branch Zoster Vaccine Unknown Completed [facility] Zoster Vaccine Unknown Completed [facility] SARS-COV-2 COVID-19 Unknown Completed Unive rsity of MODERNA 12+ YRS [facility] ical VACCINE Branch SARS-COV-2 COVID-19 Unknown Completed Unive rsity of MODERNA 12+ YRS [facility] ical VACCINE Branch SARS-COV-2 COVID-19 Unknown Completed Unive rsity of MODERNA 12+ YRS [facility] ical VACCINE Branch Influenza Virus Unknown Completed [facility] y of Vaccine [facility] Pneumococcal 20 Unknown Completed Universit y of Conjugate, PCV20 [facility] dicfl (Prevnar 20) Branch DT/Tetanus Unknown Completed [facility] Influenza Virus Unknown Completed Universit y of Vaccine - Whole [facility] Branch Zoster Vaccine Unknown Completed [facility] Zoster Vaccine Unknown Completed [facility] SARS-COV-2 COVID-19 Unknown Completed Unive rsity of MODERNA 12+ YRS [facility] ica VACCINE Branch SARS-COV-2 COVID-19 Unknown Completed Unive rsity of MODERNA 12+ YRS [facility] ical VACCINE Branch SARS-COV-2 COVID-19 Unknown Completed Unive rsity of MODERNA 12+ YRS [facility] ical VACCINE Branch Influenza Virus Unknown Completed [facility] y of Vaccine [facility] DT/Tetanus Unknown Completed [facility] Influenza Virus Unknown Completed Universit y of Vaccine - Whole [facility] Branch Zoster Vaccine Unknown Completed [facility] Zoster Vaccine Unknown Completed [facility] SARS-COV-2 COVID-19 Unknown Completed Unive rsity of MODERNA 12+ YRS [facility] ical VACCINE Branch SARS-COV-2 COVID-19 Unknown Completed Unive rsity of MODERNA 12+ YRS [facility] ical VACCINE Branch SARS-COV-2 COVID-19 Unknown Completed Unive rsity of MODERNA 12+ YRS [facility] VACCINE Branch Influenza Virus Unknown Completed Universit y of Vaccine [facility] Branch DT/Tetanus Unknown Completed [facility] Influenza Virus Unknown Completed [facility]it [facility] of Vaccine - [facility] Zoster Vaccine Unknown Completed [facility] Zoster Vaccine Unknown Completed [facility] SARS-COV-2 COVID-19 Unknown Completed Unive rsity of MODERNA 12+ YRS [facility] ical VACCINE Branch SARS-COV-2 COVID-19 Unknown Completed Unive rsity of MODERNA 12+ YRS [facility] ical VACCINE Branch SARS-COV-2 COVID-19 Unknown Completed Unive rsity of MODERNA 12+ YRS [facility] ical VACCINE Branch Influenza Virus Unknown Completed [facility]it y of Vaccine [facility] DT/Tetanus Unknown Completed [facility] Influenza Virus Unknown Completed [facility] of Vaccine - [facility] Zoster Vaccine Unknown Completed [facility] Zoster Vaccine Unknown Completed [facility] SARS-COV-2 COVID-19 Unknown Completed Unive rsity of MODERNA 12+ YRS [facility] ical VACCINE Branch SARS-COV-2 COVID-19 Unknown Completed Unive rsity of MODERNA 12+ YRS [facility] ical VACCINE Branch SARS-COV-2 COVID-19 Unknown Completed Unive rsity of MODERNA 12+ YRS [facility] VACCINE Branch Influenza Virus Unknown Completed Universit y of Vaccine [facility] DT/Tetanus Unknown Completed [facility] Influenza Virus Unknown Completed [facility] of Vaccine - [facility] Zoster Vaccine Unknown Completed [facility] Zoster Vaccine Unknown Completed [facility] SARS-COV-2 COVID-19 Unknown Completed Unive rsity of MODERNA 12+ YRS [facility] ical VACCINE Branch SARS-COV-2 COVID-19 Unknown Completed Unive rsity of MODERNA 12+ YRS [facility] ical VACCINE Branch SARS-COV-2 COVID-19 Unknown Completed Unive rsity of MODERNA 12+ YRS [facility] ical VACCINE Branch Influenza Virus Unknown Completed [facility] of Vaccine [facility] DT/Tetanus Unknown Completed [facility] Influenza Virus Unknown Completed Universit y of Vaccine - Whole [facility] Zoster Vaccine Unknown Completed [facility] Zoster Vaccine Unknown Completed [facility] SARS-COV-2 COVID-19 Unknown Completed Unive rsity of MODERNA 12+ YRS [facility] ical VACCINE Branch SARS-COV-2 COVID-19 Unknown Completed Unive rsity of MODERNA 12+ YRS [facility] ical VACCINE Branch SARS-COV-2 COVID-19 Unknown Completed Unive rsity of MODERNA 12+ YRS [facility] ical VACCINE Branch Influenza Virus Unknown Completed [facility] of Vaccine [facility] DT/Tetanus Unknown Completed [facility] Influenza Virus Unknown Completed Universit y of Vaccine - Whole [facility] Zoster Vaccine Unknown Completed [facility] Zoster Vaccine Unknown Completed [facility] SARS-COV-2 COVID-19 Unknown Completed Unive rsity of MODERNA 12+ YRS [facility] ical VACCINE Branch SARS-COV-2 COVID-19 Unknown Completed Unive rsity of MODERNA 12+ YRS [facility] VACCINE Branch DT/Tetanus Unknown Completed [facility] Zoster Vaccine Unknown Completed [facility] Zoster Vaccine Unknown Completed [facility] SARS-COV-2 COVID-19 Unknown Completed Unive rsity of MODERNA 12+ YRS [facility] ica VACCINE Branch SARS-COV-2 COVID-19 Unknown Completed Unive rsity of MODERNA 12+ YRS [facility] VACCINE Branch DT/Tetanus Unknown Completed [facility] Zoster Vaccine Unknown Completed [facility] Zoster Vaccine Unknown Completed [facility] SARS-COV-2 COVID-19 Unknown Completed Unive rsity of MODERNA 12+ YRS [facility] VACCINE Branch SARS-COV-2 COVID-19 Unknown Completed Unive rsity of MODERNA 12+ YRS [facility] VACCINE Branch SARS-COV-2 COVID-19 Unknown Completed Unive rsity of MODERNA 12+ YRS [facility] VACCINE Branch Influenza Virus Unknown Completed [facility]it [facility] of Vaccine [facility] Pneumococcal 20 Unknown Completed Universit y of Conjugate, PCV20 [facility] dical (Prevnar 20) Branch Influenza Virus Unknown Completed Universit y of Vaccine Quad IM, [facility] dical Preserv and ABX Branch Free 6 MO-64 YRS (FLUCELVAX) SARS-COV-2 COVID-19 Unknown Completed Unive rsity of VACCINE 12 YRS+, [facility] dical BIVALENT 0.5ML, IM, Branc h (MODERNA-BLUE TOP) DT/Tetanus Unknown Completed [facility] Influenza Virus Unknown Completed Universit y of Vaccine - Whole [facility] Zoster Vaccine Unknown Completed [facility] Zoster Vaccine Unknown Completed [facility] SARS-COV-2 COVID-19 Unknown Completed Unive rsity of MODERNA 12+ YRS [facility] VACCINE Branch SARS-COV-2 COVID-19 Unknown Completed Unive rsity of MODERNA 12+ YRS [facility] VACCINE Branch SARS-COV-2 COVID-19 Unknown Completed Unive rsity of MODERNA 12+ YRS [facility] VACCINE Branch Influenza Virus Unknown Completed [facility] of Vaccine [facility] Pneumococcal 20 Unknown Completed Universit y of Conjugate, PCV20 [facility] dical (Prevnar 20) Branch Influenza Virus Unknown Completed Universit y of Vaccine Quad IM, [facility] dical Preserv and ABX Branch Free 6 MO-64 YRS (FLUCELVAX) SARS-COV-2 COVID-19 Unknown Completed Unive rsity of VACCINE 12 YRS+, [facility] dical BIVALENT 0.5ML, IM, Branc h (MODERNA-BLUE TOP) DT/Tetanus Unknown Completed [facility] Influenza Virus Unknown Completed Universit y of Vaccine - Whole [facility] Zoster Vaccine Unknown Completed [facility] Zoster Vaccine Unknown Completed [facility] SARS-COV-2 COVID-19 Unknown Completed Unive rsity of MODERNA 12+ YRS [facility] VACCINE Branch SARS-COV-2 COVID-19 Unknown Completed Unive rsity of MODERNA 12+ YRS [facility] VACCINE Branch SARS-COV-2 COVID-19 Unknown Completed Unive rsity of MODERNA 12+ YRS [facility] VACCINE Branch Influenza Virus Unknown Completed [facility] of Vaccine [facility] Pneumococcal 20 Unknown Completed Universit y of Conjugate, PCV20 [facility] dical (Prevnar 20) Branch Influenza Virus Unknown Completed Universit y of Vaccine Quad IM, [facility] dical Preserv and ABX Branch Free 6 MO-64 YRS (FLUCELVAX) SARS-COV-2 COVID-19 Unknown Completed Unive rsity of VACCINE 12 YRS+, [facility] dical BIVALENT 0.5ML, IM, Branc h (MODERNA-BLUE TOP) DT/Tetanus Unknown Completed [facility] Influenza Virus Unknown Completed Universit y of Vaccine - Whole [facility] Zoster Vaccine Unknown Completed [facility] Zoster Vaccine Unknown Completed [facility] SARS-COV-2 COVID-19 Unknown Completed Unive rsity of MODERNA 12+ YRS [facility] VACCINE Branch SARS-COV-2 COVID-19 Unknown Completed Unive rsity of MODERNA 12+ YRS [facility] VACCINE Branch SARS-COV-2 COVID-19 Unknown Completed Unive rsity of MODERNA 12+ YRS [facility] VACCINE Branch Influenza Virus Unknown Completed [facility] of Vaccine [facility] Pneumococcal 20 Unknown Completed Universit y of Conjugate, PCV20 [facility] dical (Prevnar 20) Branch Influenza Virus Unknown Completed Universit y of Vaccine Quad IM, [facility] dical Preserv and ABX Branch Free 6 MO-64 YRS (FLUCELVAX) SARS-COV-2 COVID-19 Unknown Completed Unive rsity of VACCINE 12 YRS+, [facility] dical BIVALENT 0.5ML, IM, Branc h (MODERNA-BLUE TOP) DT/Tetanus Unknown Completed [facility] Influenza Virus Unknown Completed Universit y of Vaccine - Whole [facility] Branch Zoster Vaccine Unknown Completed [facility] Zoster Vaccine Unknown Completed [facility] SARS-COV-2 COVID-19 Unknown Completed Unive rsity of MODERNA 12+ YRS [facility] VACCINE Branch SARS-COV-2 COVID-19 Unknown Completed Unive rsity of MODERNA 12+ YRS [facility] VACCINE Branch SARS-COV-2 COVID-19 Unknown Completed Unive rsity of MODERNA 12+ YRS [facility] VACCINE Branch Influenza Virus Unknown Completed [facility] Vaccine [facility] Pneumococcal 20 Unknown Completed Universit y of Conjugate, PCV20 [facility] dical (Prevnar 20) Branch Influenza Virus Unknown Completed Universit y of Vaccine Quad IM, [facility] dical Preserv and ABX Branch Free 6 MO-64 YRS (FLUCELVAX) SARS-COV-2 COVID-19 Unknown Completed Unive rsity of VACCINE 12 YRS+, [facility] dical BIVALENT 0.5ML, IM, Branc h (MODERNA-BLUE TOP) DT/Tetanus Unknown Completed [facility] Influenza Virus Unknown Completed Universit y of Vaccine - Whole [facility] Zoster Vaccine Unknown Completed [facility] Zoster Vaccine Unknown Completed [facility] SARS-COV-2 COVID-19 Unknown Completed Unive rsity of MODERNA 12+ YRS [facility] VACCINE Branch SARS-COV-2 COVID-19 Unknown Completed Unive rsity of MODERNA 12+ YRS [facility] VACCINE Branch SARS-COV-2 COVID-19 Unknown Completed Unive rsity of MODERNA 12+ YRS [facility] VACCINE Branch Influenza Virus Unknown Completed [facility] of Vaccine [facility] Pneumococcal 20 Unknown Completed Universit y of Conjugate, PCV20 [facility] dical (Prevnar 20) Branch Influenza Virus Unknown Completed Universit y of Vaccine Quad IM, [facility] dical Preserv and ABX Branch Free 6 MO-64 YRS (FLUCELVAX) SARS-COV-2 COVID-19 Unknown Completed Unive rsity of VACCINE 12 YRS+, [facility] dical BIVALENT 0.5ML, IM, Branc h (MODERNA-BLUE TOP) DT/Tetanus Unknown Completed [facility] Influenza Virus Unknown Completed Universit y of Vaccine - Whole [facility] Zoster Vaccine Unknown Completed [facility] Zoster Vaccine Unknown Completed [facility] SARS-COV-2 COVID-19 Unknown Completed Unive rsity of MODERNA 12+ YRS [facility] VACCINE Branch SARS-COV-2 COVID-19 Unknown Completed Unive rsity of MODERNA 12+ YRS [facility] VACCINE Branch SARS-COV-2 COVID-19 Unknown Completed Unive rsity of MODERNA 12+ YRS [facility] VACCINE Branch Influenza Virus Unknown Completed [facility] of Vaccine [facility] Pneumococcal 20 Unknown Completed Universit y of Conjugate, PCV20 [facility] dical (Prevnar 20) Branch Influenza Virus Unknown Completed Universit y of Vaccine Quad IM, [facility] dical Preserv and ABX Branch Free 6 MO-64 YRS (FLUCELVAX) SARS-COV-2 COVID-19 Unknown Completed Unive rsity of VACCINE 12 YRS+, [facility] dical BIVALENT 0.5ML, IM, Branc h (MODERNA-BLUE TOP) DT/Tetanus Unknown Completed [facility] Influenza Virus Unknown Completed Universit y of Vaccine - Whole [facility] Zoster Vaccine Unknown Completed [facility] Zoster Vaccine Unknown Completed [facility] Vital Signs Vital Name Observation Time Observation Value Comments Source Systolic blood 2023-04-04 18:23:00 113 mm[Hg] Univer sity of pressure [facility] Diastolic blood 2023-04-04 18:23:00 73 mm[Hg] Unive rsity of pressure [facility] Heart rate 2023-04-04 18:23:00 81 /min [facility] Body temperature 2023-04-04 18:23:00 36.11 Ashlee [facility] Respiratory rate 2023-04-04 18:23:00 18 /min [facility] Body height 2023-04-04 18:23:00 165.1 cm [facility] Body weight 2023-04-04 18:23:00 91.627 kg [facility] BMI 2023-04-04 18:23:00 33.61 kg/m2 [facility] Oxygen saturation in 2023-04-04 18:23:00 97 /min r/a University of Arterial blood by [facility] Pulse oximetry Branch Systolic blood 2023-01-09 21:06:00 111 mm[Hg] Univer sity of pressure [facility] Diastolic blood 2023-01-09 21:06:00 80 mm[Hg] Unive rsity of pressure [facility] Heart rate 2023-01-09 21:06:00 74 /min [facility] Body temperature 2023-01-09 21:06:00 36.78 Ashlee [facility] Respiratory rate 2023-01-09 21:06:00 18 /min [facility] Body height 2023-01-09 21:06:00 165.1 cm [facility] Body weight 2023-01-09 21:06:00 93.895 kg [facility] BMI 2023-01-09 21:06:00 34.45 kg/m2 [facility] Systolic blood 2022-12-20 17:43:00 112 mm[Hg] Univer sity of pressure [facility] Diastolic blood 2022-12-20 17:43:00 77 mm[Hg] Unive rsity of pressure [facility] Heart rate 2022-12-20 17:43:00 84 /min [facility] Body temperature 2022-12-20 17:43:00 36.56 Ashlee [facility] Respiratory rate 2022-12-20 17:43:00 17 /min [facility] Body height 2022-12-20 17:43:00 165.1 cm [facility] Body weight 2022-12-20 17:43:00 91.627 kg [facility] BMI 2022-12-20 17:43:00 33.61 kg/m2 [facility] Oxygen saturation in 2022-12-20 17:43:00 99 /min room air [facility] Arterial blood by [place] [employer] Pulse oximetry Branch Systolic blood 2022-12-08 14:47:00 100 mm[Hg] Univer sity of pressure [facility] Diastolic blood 2022-12-08 14:47:00 68 mm[Hg] Unive rsity of pressure [facility] Heart rate 2022-12-08 14:47:00 82 /min [facility] Body temperature 2022-12-08 14:47:00 36.56 Ashlee [facility] Respiratory rate 2022-12-08 14:47:00 16 /min [facility] Body height 2022-12-08 14:47:00 165.1 cm [facility] Body weight 2022-12-08 14:47:00 95.029 kg [facility] BMI 2022-12-08 14:47:00 34.86 kg/m2 [facility] Oxygen saturation in 2022-12-08 14:47:00 96 /min University of Arterial blood by [facility] Pulse oximetry Branch Systolic blood 2022-10-13 20:13:00 117 mm[Hg] Univer sity of pressure [facility] Diastolic blood 2022-10-13 20:13:00 72 mm[Hg] Unive rsity of pressure [facility] Heart rate 2022-10-13 20:13:00 97 /min [facility] Body temperature 2022-10-13 20:13:00 37.11 Ashlee Univ ersity of [facility] Body height 2022-10-13 20:13:00 165.1 cm [facility] Body weight 2022-10-13 20:13:00 94.348 kg [facility] BMI 2022-10-13 20:13:00 34.61 kg/m2 [facility] Oxygen saturation in 2022-10-13 20:13:00 96 /min University of Arterial blood by [facility] Pulse oximetry Branch Systolic blood 2022-10-07 18:04:00 127 mm[Hg] Univer sity of pressure [facility] Diastolic blood 2022-10-07 18:04:00 82 mm[Hg] Unive rsity of pressure [facility] Heart rate 2022-10-07 18:04:00 85 /min [facility] Body temperature 2022-10-07 18:04:00 36.33 Ashlee Univ [facility] Respiratory rate 2022-10-07 18:04:00 16 /min Univ ersity of [facility] Body height 2022-10-07 18:04:00 165.1 cm [facility] Body weight 2022-10-07 18:04:00 94.756 kg [facility] BMI 2022-10-07 18:04:00 34.76 kg/m2 Universi ty of [facility] Oxygen saturation in 2022-10-07 18:04:00 98 /min [facility] of Arterial blood by [facility] Pulse oximetry Branch Systolic blood 2022-10-05 18:34:00 103 mm[Hg] Univer sity of pressure [facility] Diastolic blood 2022-10-05 18:34:00 71 mm[Hg] Unive rsity of pressure [facility] Heart rate 2022-10-05 18:34:00 70 /min [facility] Body temperature 2022-10-05 18:34:00 36.67 Ashlee Univ [facility] Respiratory rate 2022-10-05 18:34:00 18 /min Univ ersity of [facility] Body height 2022-10-05 18:34:00 165.1 cm [facility] Body weight 2022-10-05 18:34:00 93.441 kg [facility] BMI 2022-10-05 18:34:00 34.28 kg/m2 [facility] Systolic blood 2022-07-20 15:10:00 124 mm[Hg] Univer sity of pressure [facility] Diastolic blood 2022-07-20 15:10:00 80 mm[Hg] Unive rsity of pressure [facility] Heart rate 2022-07-20 15:10:00 60 /min [facility] Body temperature 2022-07-20 15:10:00 36.72 Ashlee Univ [facility] Body height 2022-07-20 15:10:00 165.1 cm [facility] Body weight 2022-07-20 15:10:00 95.255 kg [facility] BMI 2022-07-20 15:10:00 34.95 kg/m2 [facility] Oxygen saturation in 2022-07-20 15:10:00 96 /min [facility] blood by [facility] Pulse oximetry Branch Systolic blood 2022-06-14 19:23:00 126 mm[Hg] Univer [facility]ity of pressure [facility] [place] Diastolic blood 2022-06-14 19:23:00 78 mm[Hg] Unive rsity of [facility] Heart rate 2022-06-14 19:23:00 68 /min [facility] Body temperature 2022-06-14 19:23:00 36.72 Ashlee [facility] Respiratory rate 2022-06-14 19:23:00 18 /min [facility] Body height 2022-06-14 19:23:00 165.1 cm [facility] Body weight 2022-06-14 19:23:00 94.892 kg [facility] BMI 2022-06-14 19:23:00 34.81 kg/m2 [facility] [place] Height/Length 2021-08-05 08:48:40 165 cm Measured Weight Dosing 2021-08-05 08:48:40 89.3 kg Weight Dosing 2021-08-05 08:48:12 89.3 kg Height/Length 2021-08-05 08:48:12 165 cm Measured Height/Length 2020-05-28 12:53:26 Measured Weight Dosing 2020-05-28 12:53:26 Procedures Procedure Date / Time Performing Clinician Source Performed CONSENT/REFUSAL FOR 2023-04-04 18:16:34 Doctor CindyignedAlbert [facility] DIAGNOSIS AND TREATMENT [facility] INSURANCE CORRESPONDENCE 2023-02-28 05:01:00 Doctor Leilani, [facility] XR HIPS 2 VW RIGHT 2023-01-09 20:44:00 Franko Thakur [facility] REFERRAL- 2022-12-16 05:01:00 Doctor Leilani, [facility] REQUEST/RESPONSE [facility] REFERRAL- 2022-11-14 05:01:00 Doctor Unassigned, [facility] REQUEST/RESPONSE [facility] DEXA AXIAL (HIP AND 2022-10-24 19:39:07 Manisha Norris [facility] SPINE) Medical Branch ASSIGNMENT OF BENEFITS 2022-10-24 19:04:26 Doctor Unassigned, [facility] Name Medical Branch POCT MOLECULAR FLU 2022-10-13 20:23:00 Joanna Babita [facility] Medical Branch POCT MOLECULAR STREP 2022-10-13 20:11:[address] [facility] Medical Branch [facility] PATIENT FINANCIAL 2022-10-05 17:55:40 Doctor Unassigned, [facility] POLICY [facility] REFERRAL- 2022-09-23 06:01:00 Doctor Unassigned, [facility] REQUEST/RESPONSE [facility] EXTERNAL PROVIDER RECORDS 2022-08-30 06:01:00 Doctor Unassigned, [facility] REFERRAL- 2022-07-07 06:01:00 Doctor Unassigned, [facility] REQUEST/RESPONSE [facility] EXTERNAL PROVIDER RECORDS 2022-06-23 06:01:00 Doctor Unassigned, [facility] Name Medical Branch REFERRAL- 2022-06-02 06:01:00 Doctor Unassigned, [facility] REQUEST/RESPONSE [facility] REFERRAL- 2022-05-11 05:01:00 Doctor Unassigned, [facility] REQUEST/RESPONSE [facility] DME/SUPPLY JUSTIFICATION 2022-04-28 05:01:00 Doctor Unassigned, [facility] PHYSICIAN ORDERS 2022-04-12 05:01:00 Doctor Unassigned, [facility] FLU VACC ([id number]), 6 2022-04-08 19:25:44 Manisha Norris [facility] [place]-62 YRS, .5ML, IM, QUAD Medica l Branch (FLUCELVAX) SARS-COV-2 COVID-19 2022-04-08 19:25:44 Manisha Norris [facility] VACCINE 18 YRS+, BIVALENT Medica l Branch 0.5ML, IM (MODERNA BOOSTER) INSURANCE CORRESPONDENCE 2022-04-04 05:01:00 Doctor Unassigned, [facility] HOME HEALTH - OTHER 2022-03-24 05:01:00 Doctor Unassigned [facility] INSURANCE CORRESPONDENCE 2022-03-08 05:01:00 Doctor Unassigned, [facility] Encounters Start End Encounter Admission Attending Care Care Encounter Source Date/Time Date/Time Type Type Clinicians Facility Department ID 2022-12-19 Outpatient Ofe [facility] [id number] 2 Common 08:36:01 Franko [id number] [facility] 2022-11-29 Outpatient Ofe [facility] [id number] 2 Common 07:06:00 Franko [id number] [facility] 2022-05-23 Outpatient Ofe [facility] [id number] 2 Common 11:12:01 Franko [id number] [facility] 2020-05-28 Inpatient 3 Corwin Claros [facility] [id number] [facility] 14:35:[address] [facility] 2023-10-10 2023-10-10 Outpatient R RIVKA SILVA [facility] [id number] Univers 14:00:00 14:00:00 RIVKA SILVA [facility] 2023-10-06 2023-10-06 Outpatient R MANISHA NORRIS [facility] 1 [id number] Univers 13:15:00 13:15:00 MANISHA NORRIS [facility] 2023-06-12 2023-06-12 Outpatient R OFE [facility] [id number] Univers 13:30:00 13:30:00 FRANKO [facility] 2023-05-22 2023-05-22 Patient Jr [facility] 1.2.840.114 [id number] Univers 00:00:00 00:00:00 Secure Msg Manisha Hale PRIMARY 350.1.13.10 ity of CARE 4.2.7.2.686 Alissa HOGUE [id number] [address] 2023-05-21 2023-05-21 Patient Jr [facility] 1.2.840.114 [id number] Univers 00:00:00 00:00:00 Secure Msg Manisha A PRIMARY 350.1.13.10 it[place] [id number] [address] 2023-05-03 2023-05-03 Outpatient R GWENDOLYN [facility] [id number] Univers 00:00:00 00:00:00 , JANEL it y of [facility] 2023-05-01 2023-05-01 [facility]i [facility] 1.2.840.114 [id number] Univers 00:00:00 00:00:00 David Draper PRIMARY 350.1.13.10 ity [place] [id number] [address] 2023-05-01 2023-05-01 Patient Jr [facility] 1.2.840.114 [id number] Univers 00:00:00 00:00:00 Secure Msg Manisha A PRIMARY 350.1.13.10 ity of [place] [id number] [address] 2023-04-13 2023-04-13 Telephone [facility] 1.2.840.114 [id number] Univers 00:00:00 00:00:00 , Janel [facility] 350.1.13.10 ity of [place] 4.2.7.2.686 Jesus as SAMSON?BLEA [id number] [address] MEDICAL OFFICE BUILDING 2023-04-10 2023-04-10 Telephone [facility] 1.2.840.114 [id number] Univers 00:00:00 00:00:00 , Janel LYRIC 350.1.13.10 ity of [place].2.[place] [id number] [address] BUILDING 2023-04-04 2023-04-04 Post Graduate Internship Pcp-Lab [facility] 1.2.840.114 [id number] Univers 14:15:00 14:30:00 Visit Manisha Norris PRIMARY 350.1.13.10 it[place] of C[place] [id number] [facility] [address] 2023-04-04 2023-04-04 Outpatient R JR MANISHA [facility] 1 [id number] Univers 14:15:00 14:15:00 JR MANISHA ity of [facility] 2023-04-04 2023-04-04 [facility] 1.2.840.114 [id number] Univers 13:45:00 14:06:20 Visit Manisha Hale PRIMARY 350.1.13.10 it y of [place] [id number] [facility] [address] 2023-04-04 2023-04-04 Orders Doctor DOMINGO 1.2.840.114 [id number] Univers 00:00:00 00:00:00 Only Unassigned, LUDIN 350.1.13.10 ity of [facility] 4.2.7.2.686 Jesus as [id number] [address] 2023-04-04 2023-04-04 Patient Jr [facility] 1.2.840.114 [id number] Univers 00:00:00 00:00:00 Secure Msg Manisha A PRIMARY 350.1.13.10 it[place] [id number] [facility] [address] 2023-03-23 2023-03-23 Refill [facility] 1.2.840.114 [id number] Univers 00:00:00 00:00:00 Manisha A PRIMARY 350.1.13.10 it y of [place].2.[place] [id number] [facility] [address] 2023-03-23 2023-03-23 Refill [facility] 1.2.840.114 [id number] Univers 00:00:00 00:00:00 Manisha A PRIMARY 350.1.13.10 it y [place]2.[place] NAYANAJA[place] [id number] Hi dical [address] 2023-03-21 2023-03-21 [facility] 1.2.840.114 [id number] Univers 00:00:00 00:00:00 , Janel HARO 350.1.13.10 ity of [place] 4.2.7.2.686 Jesus as SAMSON?BLEA [id number] Hi dical KNEY [address] MEDICAL OFFICE BUILDING 2023-02-28 2023-02-28 Orders Doctor DOMINGO 1.2.840.114 [id number] Univers 00:00:00 00:00:00 Only Unassigned, LUDIN 350.1.13.10 ity of [place] [facility] 4.2.7.2.686 Jesus as [id number] [facility] [address] 2023-01-18 2023-01-18 Outpatient R [facility] [id number] Univers 13:00:00 13:00:00 [facility] 2023-01-09 2023-01-09 Outpatient [facility] [id number] Univers 15:06:46 23:59:00 [facility] 2023-01-09 2023-01-09 [facility] 1.2.119.593 [id number] Univers 15:00:00 23:59:00 Encounter Franko [place] 350.1.13.10 ity of [place] [facility] 4.2.7.2.[place] [id number] [facility] [address] 2023-01-09 2023-01-09 Office [facility] 1.2.840.114 [id number] Univers 16:00:00 16:26:29 Visit evelniaRivka 350.1.13.10 ity of [place]2.[place].2.[place] KAT[place] [id number] Hi dical NAL 134 [facility] 2023-01-04 2023-01-04 Telephone [facility] 1.2.840.114 [id number] Univers 00:00:00 00:00:00 , Janel HEALTH 350.1.13.10 ity of [place] 4.2.7.2.686 Jesus as SAMSON?BLEA [id number] [address] OFFICE [facility] 2023-01-03 2023-01-03 Outpatient R GWENDOLYN [facility] [id number] Univers 11:15:00 11:15:00 , JANEL it y of [facility] 2022-12-30 2022-12-30 Telephone [facility] 1.2.840.114 [id number] Univers 00:00:00 00:00:00 , Janel HEALTH 350.1.13.10 ity of [place] 4.2.7.2.686 Jesus as SAMSON?BLEA [id number] [address] OFFICE [facility] 2022-12-20 2022-12-20 Office [facility] 1.2.840.114 [id number] Univers 13:15:00 13:45:00 Visit Manisha MACK 350.1.13.10 it y [place] C[place]2.[place] LENNIE [id number] [address] 2022-12-20 2022-12-20 [facility] [id number] Univers 13:15:00 13:15:[address] [facility] 2022-12-20 2022-12-20 Telephone [facility] 1.2.840.114 [id number] Univers 00:00:00 00:00:00 , Janel HEALTH 350.1.13.10 ity of [place] 4.2.7.2.686 Jesus as SAMSON?BLEA [id number] [address] OFFICE [facility] 2022-12-16 2022-12-[address] 1.2.840.114 [id number] Univers 00:00:00 00:00:00 Only Unassigned, LUDIN 350.1.13.10 ity of [place] [facility] 4.2.7.2.686 Jesus as [id number] [address] 2022-12-14 2022-12-14 [facility] 1.2.840.114 [id number] Univers 12:48:38 23:59:00 Encounter Rosales G[place] 350.1.13.10 ity of [facility] 4.2.7.2.686 [facility] [id number] [facility] [address] 2022-12-14 2022-12-14 Outpatient R [facility] [id number] Univers 12:48:14 23:59:00 ROSALES ity [facility] 2022-12-14 2022-12-14 [facility] 1.2.840.114 [id number] Univers 12:48:14 23:59:00 Encounter Rosales [place] 350.1.13.10 ity of [place] 4.2.7.2.686 [facility] [id number] [facility] [address] 2022-12-08 2022-12-08 Post Graduate Internship Lab, Guilherme - Lambert [facility] 1.2.840.1 14 [id number] Univers 10:45:00 11:00:00 Visit Janel Snow [facility] 350.1 .13.10 ity of [place] 4.2.7.2.686 Jesus as SAMSON?BLEA [id number] [facility] [address] MEDICAL OFFICE BUILDING 2022-12-08 2022-12-08 Outpatient R GWENDOLYN [facility] [id number] Univers 09:40:00 10:34:05 , JANEL it y of [facility] 2022-12-08 2022-12-08 Office [facility] 1.2.840.114 [id number] Univers 09:40:00 10:34:05 Visit , Janel ESTRELLITA 350.1.13.10 ity of [place] 4.2.7.2.686 Jesus as SAMSON?BLEA [id number] [facility] [address] MEDICAL OFFICE BUILDING 2022-11-30 2022-11-30 Radha Norris [facility] 1.2.840.114 [id number] Univers 00:00:00 00:00:00 Manisha Hale PRIMARY 350.1.13.10 it y [place] C[place]2.[place] [id number] [facility] [address] 2022-11-21 2022-11-21 [facility] 1.2.840.114 [id number] Univers 00:00:00 00:00:00 Manisha Hale PRIMARY 350.1.13.10 it y of [place]2.[place].2.[place] [id number] [facility] [address] [place] [address] 2022-11-15 2022-11-15 Telephone [facility] 1.2.840.114 [id number] Univers 00:00:00 00:00:00 Umberto L [facility] 350.1.13.10 it y of [facility] 4.2.7.2.686 Jesus as SAMSON?BLEA [id number] [facility] [address] MEDICAL OFFICE BUILDING 2022-11-14 2022-11-14 Orders Doctor DOMINGO 1.2.840.114 [id number] Univers 00:00:00 00:00:00 Only Unassigned, LUDIN 350.1.13.10 ity of [place] [facility] 4.2.7.2.686 Jesus as [id number] [facility] [address] 2022-10-24 2022-10-24 Outpatient Tere NORRIS [facility] [id number] Univers 14:05:22 23:59:[address] [facility] 2022-10-24 2022-10-24 [facility] 1.2.840.114 [id number] Univers 14:05:22 23:59:00 Encounter Manisha POMPACARLOS A 350.1.13.10 ity of [place].2.7.2.[place] [id number] [facility] [address] 2022-10-24 2022-10-24 Orders Doctor DOMINGO 1.2.840.114 [id number] Univers 00:00:00 00:00:00 Only Unassigned, LUDIN 350.1.13.10 ity of [place] [facility] 4.2.7.2.686 Jesus as [id number] [facility] [address] 2022-10-13 2022-10-13 Outpatient BABITA JULIEN [facility] [id number] Univers 15:00:00 15:44:45 BABITA SALDANA [facility] 2022-10-13 2022-10-13 Office Jeane Rasmussen [facility] 1.2.840.1 [id number] Univers 15:00:00 15:44:45 Visit Babita Saldana [facility] 350.1.13.10 ity of [place] 4.2.7.2.686 Jesus as SAMSON?BLEA [id number] Hi dic[address] OFFICE [facility] 2022-10-13 2022-10-13 Telephone [facility] 1.2.840.114 10 [id number] Univers 00:00:00 00:00:00 Rosales GUNTER 350.1.13.10 i ty of [place].2.[place].2.[place] [id number] Hi dicfl NAL 134 [facility] 2022-10-12 2022-10-12 Telephone [facility] 1.2.840.114 10 [id number] Univers 00:00:00 00:00:00 Rosales POMPACARLOS A 350.1.13.10 i ty of [place] 4.2.7.2.[place] [id number] Hi dicfl NAL 134 [facility] 2022-10-11 2022-10-11 Refill Jr [facility] 1.2.840.114 [id number] Univers 00:00:00 00:00:00 Manisha Hale PRIMARY 350.1.13.10 it y of [place]2.[place].2.[place] [id number] Hi dical [address] 2022-10-07 2022-10-07 Post Graduate Internship Pcp-Lab [facility] 1.2.840.114 [id number] Univers 14:15:00 14:30:00 Visit Manisha Norris PRIMARY 350.1.13.10 ity of C[place] 4[place]2.[place].2.[place] [id number] Hi dicfl [address] 2022-10-07 2022-10-07 Outpatient R JR [facility] [id number] Univers 13:45:00 13:56:24 [facility]22-10-07 2022-10-07 Office [facility] 1.2.840.114 [id number] Univers 13:45:00 13:56:24 Visit Manisha MACK 350.1.13.10 it y of C[place] 4.2.7.2.[place] [id number] Hi dicfl [address] 2022-10-07 2022-10-07 Telephone [facility] 1.2.840.114 [id number] Univers 00:00:00 00:00:00 Rosales POMPACARLOS A 350.1.13.10 i ty of [place] 4.2.7.2.[place] [id number] Hi dicfl NAL 134 [facility] 2022-10-05 2022-10-05 [facility] [id number] Univers 13:30:00 14:14:44 ROSALES [facility] 2022-10-05 2022-10-05 Office [facility] 1.2.176.559 [id number] Univers 13:30:00 14:14:44 Visit Rosales GUN[place] 350.1.13.10 i ty of [facility] 4.2.7.2.[place] [id number] [address] 2022-10-05 2022-10-05 Orders Doctor DOMINGO 1.2.840.114 [id number] Univers 00:00:00 00:00:00 Only Unassigned, LUDIN 350.1.13.10 ity of [place] [facility] 4.2.7.2.686 Jesus as [id number] [address] 2022-10-03 2022-10-03 Outpatient R LICO WHITE [facility] [id number] Univers 15:00:00 15:00:00 LICO WHITE [facility] 2022-09-23 2022-09-23 Orders Doctor DOMINGO 1.2.840.114 [id number] Univers 00:00:00 00:00:00 Only Unassigned, LUDIN 350.1.13.10 ity of [place] [facility] 4.2.7.2.686 Jesus as [id number] [address] 2022-09-15 2022-09-15 Patient [facility] 1.2.840.114 [id number] Univers 00:00:00 00:00:00 Secure Msg Franko HEALTH 350.1.13.10 ity of [place] 4.2.7.2.686 Jesus as SAMSON?BLEA [id number] [facility] [address] MEDICAL OFFICE [facility] 2022-09-13 2022-09-13 Patient [facility] 1.2.840.114 [id number] Univers 00:00:00 00:00:00 Secure Msg Franko HEALTH 350.1.13.10 ity of [place] 4.2.7.2.686 Jesus as SAMSON?BLEA [id number] [facility] [address] OFFICE [facility] 2022-09-12 2022-09-12 Patient [facility] 1.2.840.114 [id number] Univers 00:00:00 00:00:00 Secure Msg Franko HEALTH 350.1.13.10 ity of [place] 4.2.7.2.686 Jesus as SAMSON?BLEA [id number] [facility] [address] OFFICE [facility] 2022-09-06 2022-09-06 Telephone [facility] 1.2.840.114 [id number] Univers 00:00:00 00:00:00 Franko HEALTH 350.1.13.10 it y of [place] 4.2.7.2.686 Jesus as SAMSON?BLEA [id number] [facility] [address] MEDICAL OFFICE [facility] 2022-09-06 2022-09-06 [facility] 1.2.840.114 [id number] Univers 00:00:00 00:00:00 Secure Msg Franko HEALTH 350.1.13.10 ity of [place] 4.2.7.2.686 Jesus as SAMSON?BLEA [id number] Hi dic[address] MEDICAL OFFICE [facility] 2022-08-31 2022-08-31 Fritz CHIU [facility] [id number] Univers 14:30:00 14:30:00 ROSALES levin [facility] 2022-08-30 2022-08-30 Orders Doctor DOMINGO 1.2.840.114 [id number] Univers 00:00:00 00:00:00 Only Unassigned, LUDIN 350.1.13.10 ity of [place] [facility] 4.2.7.2.686 Jesus as [id number] [address] 2022-08-24 2022-08-24 Refbrandi [facility] 1.2.840.114 [id number] Univers 00:00:00 00:00:00 Manisha A PRIMARY [id number] it y of CARE 4.2.7.2.686 [place] LENNIE [phone] [address] 2022-07-20 2022-07-20 Office [facility] 1.2.840.114 [id number] Univers 09:30:00 09:45:00 Visit Franko [facility] 350.1.13.10 it y of Edelizabeth GUNTER 4.2.7.2.686 Jesus as SAMSON?BLEA [phone] [facility] [facility] OFFICE [facility] 2022-07-20 2022-07-20 Outpatient R BIANCAST. [facility] [id number] Univers 09:30:00 09:30:50 FRANKO levin [facility] 2022-07-07 2022-07-07 Orders Doctor DOMINGO 1.2.840.114 [id number] Univers 00:00:00 00:00:00 Only Unassigned, LUDIN 350.1.13.10 ity of [place] [facility] 4.2.7.2.686 Jesus as [phone] [address] 2022-06-30 2022-06-30 Telephone [facility] 1.2.840.114 [id number] Univers 00:00:00 00:00:00 Umberto Thomas HEALTH 350.1.13.10 it y of [place] 4.2.7.2.686 Jesus as SAMSON?BLEA [phone] [facility] [address] MEDICAL OFFICE [facility] 2022-06-27 2022-06-27 Telephone [facility] 1.2.840.114 [id number] Univers 00:00:00 00:00:00 Umberto Thomas HEALTH 350.1.13.10 it y of [place] 4.2.7.2.686 Jesus as SAMSON?BLEA [phone] Hi dicmakayla SMITH 198 [facility] 2022-06-24 2022-06-24 Telephone [facility] 1.2.840.114 [id number] Univers 00:00:00 00:00:00 Umberto Thomas HEALTH 350.1.13.10 it y of [place] 4.2.7.2.686 Jesus as SAMSON?BLEA [phone] Hi dicmakayla SMITH 044 [facility] 2022-06-23 2022-06-23 Orders Doctor DOMINGO 1.2.840.114 [id number] Univers 00:00:00 00:00:00 Only Unassigned, LUDIN 350.1.13.10 ity of [place] [facility] 4.2.7.2.686 Jesus as [phone] [facility] [address] [place] 2022-06-21 2022-06-21 Patient Doctor DOMINGO 1.2.840.114 [id number] Univers 00:00:00 00:00:00 Secure Msg Unassigned, LUDIN 350.1.13.10 ity of [place] [facility] 4.2.7.2.686 Jesus as [id number] [facility] [address] [place] 2022-06-15 2022-06-15 Outpatient R DONYA [facility] [id number] Univers 14:20:00 14:20:[address] [facility] 2022-06-14 2022-06-14 Office [facility] 1.2.919.097 [id number] Univers 16:15:00 16:15:00 Visit Rosales LYRIC 350.1.13.10 i ty [facility] [place].2.[place] [phone] Hi dicmakayla MORENO 134 [facility] 2022-06-14 2022-06-14 Outpatient R ARAM [facility] [id number] Univers 16:15:00 13:57:[address] [facility] 2022-06-14 2022-06-14 Telephone [facility] 1.2.840.114 [id number] Univers 00:00:00 00:00:00 Rosalesrajani POMPACARLOS A 350.1.13.10 i ty of [facility] 4.2.7.2.[place] [phone] Hi keaton MORENO 134 [facility] 2022-06-02 2022-06-02 Orders Doctor DOMINGO 1.2.840.114 [id number] Univers 00:00:00 00:00:00 Only Unassigned, LUDIN 350.1.13.10 ity of [place] [facility] 4.2.7.2.686 Jesus as [phone] [address] 2022-05-30 2022-05-30 Telephone [facility] 1.2.840.114 [id number] Univers 00:00:00 00:00:00 [facility] 350.1.13.10 it y [facility] 4.2.7.2.686 Jesus as SAMSON?BLEA [phone] Hi keaton SMITH 198 [facility] OFFICE [facility] 2022-05-11 2022-05-11 Orders Doctor DOMINGO 1.2.840.114 [id number] Univers 00:00:00 00:00:00 Only Unassigned, LUDIN 350.1.13.10 ity of [place] [facility] 4.2.7.2.686 Jesus as [phone] [address] 2022-05-03 2022-05-03 Telephone [facility] 1.2.840.114 [id number] Univers 00:00:00 00:00:00 [facility] 350.1.13.10 it y of [place] 4.2.7.2.686 Jesus as SAMSON?BLEA [phone] Hi maureenfl SARAH 198 [facility] OFFICE [facility] 2022-04-28 2022-04-28 Orders Doctor DOMINGO 1.2.840.114 [id number] Univers 00:00:00 00:00:00 Only Unassigned, LUDIN 350.1.13.10 ity of [place] [facility] 4.2.7.2.686 Jesus as [phone] [address] 2022-04-26 2022-04-26 Telephone [facility] 1.2.840.114 [id number] Univers 00:00:00 00:00:00 Leela GUNTER 350.1.13.10 ity of [place].2.[place] [phone] Hi dicmakayla NAL 085 [facility] 2022-04-12 2022-04-12 Orders Doctor DOMINGO 1.2.840.114 [id number] Univers 00:00:00 00:00:00 Only Unassigned, LUDIN 350.1.13.10 ity of [place] [facility] 4.2.7.2.686 Jesus as [phone] [address] 2022-04-11 2022-04-11 Telephone [facility] 1.2.840.114 [id number] Univers 00:00:00 00:00:00 [facility] 350.1.13.10 it y of [place] G[place]TER 4.2.7.2.686 Jesus as SAMSON?BLEA [phone] [facility] SELVINEY [address] [place] MEDICAL OFFICE [facility] 2022-04-08 2022-04-08 Post Graduate Internship Pcp-Lab [facility] 1.2.840.114 [id number] Univers 14:45:00 15:00:00 Visit Manisha Norris PRIMARY 350.1.13.10 ity of [place].2.[place] [id number] [facility] [address] [place] 2022-04-08 2022-04-08 Outpatient Tere NORRIS [facility] [id number] Univers 13:45:00 14:35:25 MANISHA levin [facility] 2022-04-08 2022-04-08 Office [facility] 1.2.840.114 [id number] Univers 13:45:00 14:35:25 Visit Manisha Hale PRIMARY 350.1.13.10 it y of [place]2.7.2.[place] [id number] [facility] [address] [place] 2022-04-08 2022-04-08 Outpatient Tere [facility] [id number] Univers 13:45:00 13:45:00 MANISHA levin [facility] 2022-04-08 2022-04-08 Outpatient Tere NORRIS, [facility] [id number] Univers 13:45:00 13:45:00 MANISHA levin [facility] 2022-04-08 2022-04-08 Outpatient Tere NORRIS, [facility] [id number] Univers 13:45:00 13:45:00 MANISHA bryantmckenna [facility] 2022-04-08 2022-04-08 Outpatient Tere NORRIS, [facility] [id number] Univers 13:45:00 13:45:00 MANISHA bryantmckenna [facility] 2022-04-08 2022-04-08 Outpatient Tere NORRIS, [facility] [id number] Univers 13:45:00 13:45:00 MANISHA mckenna [facility] 2022-04-04 2022-04-04 Orders Doctor DOMINGO 1.2.840.114 [id number] Univers 00:00:00 00:00:00 Only Unassigned, LUDIN 350.1.13.10 ity of [place] [facility] 4.2.7.2.686 Jesus as [id number] [address] 2022-03-28 2022-03-28 Telephone [facility] 1.2.840.114 [id number] Univers 00:00:00 00:00:00 Umberto L HEALTH 350.1.13.10 it y of [place] 4.2.7.2.686 Jesus as SAMSON?BLEA [phone] [facility] 198 [facility] OFFICE [facility] 2022-03-25 2022-03-25 Refbrandi [facility] 1.2.840.114 [id number] Univers 00:00:00 00:00:00 Wentong HEALTH 350.1.13.10 it y of [place] 4.2.7.2.686 Jesus as SAMSON?BLEA [phone] [facility] 220 [facility] OFFICE [facility] 2022-03-24 2022-03-[address] 1.2.840.114 [id number] Univers 00:00:00 00:00:00 Only Unassigned, LUDIN 350.1.13.10 ity of [place] [facility] 4.2.7.2.686 Jesus as [phone] [place] [address] [place] 2022-03-22 2022-03-22 Patient Zeusmary [facility] 1.2.848.250 [id number] Univers 00:00:00 00:00:00 Secure Msg Rosales POMPACARLOS A 350.1.13.10 ity of [facility] 4.2.7[place]2.[place] [phone] Hi dical NAL 134 [facility] 2022-03-18 2022-03-18 Patient Jr [facility] 1.2.840.114 [id number] Univers 00:00:00 00:00:00 Secure Msg Manisha A PRIMARY 350.1.13.10 ity of [facility] 4.2.7.2.[place] [id number] Hi dicfl [address] [place] 2022-03-17 2022-03-17 Office [facility] 1.2.840.114 [id number] Univers 13:00:00 13:15:00 Visit [facility] 350.1.13.10 it y of [place] 4.2.7.2.686 Jesus as SAMSON?BLEA [phone] Hi dicfl KNEY 198 [facility] OFFICE [facility] 2022-03-17 2022-03-17 Outpatient R ANNABELLE [facility] [id number] Univers 13:00:00 13:00:00 DIXIE [facility] 2022-03-15 2022-03-15 Outpatient Tere CHIU [facility] [id number] Univers 00:00:00 00:00:00 ROSALES levin [facility] 2022-03-15 2022-03-15 Outpatient Tere [facility] [id number] Univers 00:00:00 00:00:00 ROSALES levin [facility] 2022-03-15 2022-03-15 Outpatient Tere [facility]IU [facility] [id number] Univers 00:00:00 00:00:00 ROSALES levin [facility] 2022-03-09 2022-03-09 Patient [facility] 1.2.840.114 [id number] Univers 00:00:00 00:00:00 Secure Msg [facility] 350.1.13.10 ity of [place] 4.2.7.2.686 Jesus as SAMSON?BLEA [phone] Hi keaton SMITH 198 [place] MEDICAL OFFICE BUILDING 2022-03-08 2022-03-08 Telephone Ofe IDAMBER 1.2.840.114 [id number] Univers 00:00:00 00:00:00 [facility] 350.1.13.10 it y of [place] 4.2.7.2.686 Jesus as SAMSON?BLEA [phone] Hi keaton SMITH 044 [place] MEDICAL OFFICE [facility] 2022-03-08 2022-03-08 Orders Doctor DOMINGO 1.2.840.114 [id number] Univers 00:00:00 00:00:00 Only Unassigned, LUDIN 350.1.13.10 ity of [place] [facility] 4.2.7.2.686 Jesus as [phone] [address] 2022-03-07 2022-03-07 Orders Doctor DOMINGO 1.2.840.114 [id number] Univers 00:00:00 00:00:00 Only Unassigned, LUDIN 350.1.13.10 ity of [place] [facility] 4.2.7.2.686 Jesus as [phone] [address] 2022-03-04 2022-03-04 Patient Jr [facility] 1.2.840.114 [id number] Univers 00:00:00 00:00:00 Secure Msg Manisha A PRIMARY 350.1.13.10 ity of [place].2.[place] LENNIE [id number] [address] 2022-03-04 2022-03-04 Orders Doctor DOMINGO 1.2.840.114 [id number] Univers 00:00:00 00:00:00 Only Unassigned, LUDIN 350.1.13.10 ity of [place] [facility] 4.2.7.2.686 Jesus as [id number] [address] 2022-03-03 2022-03-[address] 1.2.840.114 [id number] Univers 00:00:00 00:00:00 Secure Msg Unassigned, LUDIN 350.1.13.10 ity of [facility] 4.2.7.2.686 Jesus as [phone] [address] 2022-02-28 2022-02-28 [facility] 1.2.840.114 [id number] Univers 00:00:00 00:00:00 [facility] 350.1.13.10 it y of [place] 4.2.7.2.686 Jesus as SAMSON?BLEA [phone] Hi keaton SMITH [address] [place] [address] OFFICE [facility] 2022-02-25 2022-02-25 Outpatient Tere [facility] [id number] Univers 09:05:00 23:59:00 [facility] 2022-02-25 2022-02-25 Outpatient Tere [facility] [id number] Univers 09:05:00 23:59:00 [facility] 2022-02-25 2022-02-25 Office [facility] 1..840.114 [id number] Univers 09:30:00 09:45:00 Visit [facility] 350.1.13.10 it y of [place] 4.2.7.2.686 Jesus as SAMSON?BLEA [phone] Hi keaton SMITH [address] [place] [address] 2022-02-25 2022-02-25 Outpatient Tere [facility] [id number] Univers 09:30:00 09:30:00 [facility] 2022-02-24 2022-02-24 Telephone [facility] 1..840.114 95 [id number] Univers 00:00:00 00:00:00 [facility] 350.1.13.10 it y of [place] 4.2.7.2.686 Jesus as SAMSON?BLEA [phone] Hi keaton SMITH [address] [place] [address] OFFICE [facility] 2022-02-20 2022-02-20 Radha Thakur [facility] 1.2.840.114 [id number] Univers 00:00:00 00:00:00 [facility] HEALTH 350.1.13.10 it y of [place] 4.2.7.2.686 Jesus as SAMSON?BLEA [phone] Hi dicmakayla SMITH [address] [place] MEDICAL OFFICE BUILDING 2022-02-15 2022-02-15 Orders Doctor DOMINGO 1.2.840.114 [id number] Univers 00:00:00 00:00:00 Only Unassigned, LUDIN 350.1.13.10 ity of [place] [facility] 4.2.7.2.686 Jesus as [id number] [address] 2022-02-14 2022-02-14 Outpatient Tere [facility] [id number] Univers 14:40:00 23:59:00 DIXIE ity [facility] 2022-02-14 2022-02-14 Outpatient Tere [facility] [id number] Univers 14:40:00 23:59:00 DIXIE ity [facility] 2022-02-14 2022-02-14 Outpatient Tere [facility] [id number] Univers 14:40:00 23:59:00 DIXIE ity [facility] 2022-02-14 2022-02-14 Outpatient Tere [facility] [id number] Univers 14:00:00 15:49:45 DIXIE ity [facility] 2022-02-14 2022-02-14 Office Umberto Saul [facility] 1.2.840. 114 [id number] Univers 14:00:00 15:49:45 Visit [facility] 350.1.13.10 ity [facility] 4.2.7.2.686 Jesus as SAMSON?BLEA [phone] Hi keaton SARAH [address] [place] MEDICAL OFFICE [facility] 2022-02-14 2022-02-[address] 1.2.840.114 [id number] Univers 00:00:00 00:00:00 Only Unassigned, LUDIN 350.1.13.10 ity of [place] [facility] 4.2.7.2.686 Jesus as [id number] [address] 2022-02-11 2022-02-[address] 1.2.840.114 [id number] Univers 00:00:00 00:00:00 Only Unassigned, LUDIN 350.1.13.10 ity of [place] [facility] 4.2.7.2.686 Jesus as [phone] [facility] [address] [place] 2022-02-09 2022-02-09 Telephone [facility] 1.2.840.114 [id number] Univers 00:00:00 00:00:00 Franko HEALTH 350.1.13.10 it y of [place] 4.2.7.2.686 Jesus as SAMSON?BLEA [phone] Hi keaton SMITH 044 [facility] OFFICE [facility] 2022-02-08 2022-02-08 Telephone [facility] 1.2.840.114 [id number] Univers 00:00:00 00:00:00 Franko HEALTH 350.1.13.10 it y of [place] 4.2.7.2.686 Jesus as SAMSON?BLEA [phone] Hi keaton SMITH 044 [facility] 2022-02-08 2022-02-08 Telephone [facility] 1.2.840.114 [id number] Univers 00:00:00 00:00:00 [facility] 350.1.13.10 it y of [place] 4.2.7.2.686 Jesus as SAMSON?BLEA [phone] Hi keaton SMITH 198 [facility] 2022-02-07 2022-02-07 Outpatient Tere ALANIS [facility] [id number] Univers 13:30:00 13:30:00 [facility] 2022-02-07 Outpatient Tere ALANIS [facility] [id number] Univers 13:30:00 13:30:00 DIXIE ity [facility] 2022-02-07 2022-02-07 Outpatient Tere ALANIS [facility] [id number] Univers 13:30:00 13:30:00 DIXIE ity [facility] 2022-02-07 2022-02-07 Outpatient Tere AL[facility]IS [facility] [id number] Univers 13:30:00 13:30:00 DIXIE ity [facility] 2022-02-07 2022-02-07 Outpatient Tere ALANIS [facility] [id number] Univers 13:30:00 13:30:00 DIXIE ity [facility] 2022-02-07 2022-02-07 Radha [facility] 1.2.840.114 [id number] Univers 00:00:00 00:00:00 Franko HEALTH 350.1.13.10 it y of [place] 4.2.7.2.686 Jesus as SAMSON?BLEA [id number] Hi keaton SMITH 044 [facility] OFFICE [facility] 2022-02-07 2022-02-07 Telephone [facility] 1.2.840.114 [id number] Univers 00:00:00 00:00:00 Umberto L HEALTH 350.1.13.10 it y of [place] 4.2.7.2.686 Jesus as SAMSON?BLEA [phone] Hi keaton SMITH 198 [facility] OFFICE [facility] 2022-02-06 2022-02-06 Orders Doctor DOMINGO 1.2.840.114 [id number] Univers 00:00:00 00:00:00 Only Unassigned, LUDIN 350.1.13.10 ity of [place] [facility] 4.2.7.2.686 Jesus as [id number] [facility] [address] [place] 2022-02-03 2022-02-03 Telephone [facility] 1.2.840.114 [id number] Univers 00:00:00 00:00:00 Umberto Thomas HEALTH 350.1.13.10 it y of [place] 4.2.7.2.686 Jesus as SAMSON?BLEA [phone] Hi keaton SMITH 198 [facility] OFFICE [facility] 2022-02-01 2022-02-01 Transition PIERRE Portillo 1.2.840.114 [id number] Univers 00:00:00 00:00:00 of Care Kasandra PEARSONY 350.1.13.10 it y of [place].7.2.[place] [phone] [facility] [address] [place] 2022-02-01 2022-02-01 Telephone [facility] 1.2.840.114 [id number] Univers 00:00:00 00:00:00 Umberto L HEALTH 350.1.13.10 it y of [place] 4.2.7.2.686 Jesus as SAMSON?BLEA [phone] Hi keaton SMITH [address] [place] [address] MEDICAL OFFICE [facility] 2022-01-31 2022-01-31 Outpatient R [facility] [id number] Univers 07:00:00 20:05:00 UMBERTO [facility] 2022-01-31 2022-01-31 [facility] 1.2.840.114 [id number] Univers 07:00:00 20:05:00 Encounter Umberto GUNTER 350.1.13.10 ity of [place]ICAL [id number] [address] 2022-01-31 2022-01-31 Outpatient R [facility] [id number] Univers 07:00:00 20:05:00 [facility] 2022-01-31 2022-01-31 Outpatient R [facility] SOR [id number] Univers 07:00:00 20:05:00 [facility] 2022-01-31 2022-01-31 Outpatient R [facility] [id number] Univers 07:00:00 20:05:00 [facility] 2022-01-31 2022-01-31 Outpatient R [facility] [id number] Univers 07:00:00 20:05:00 [facility] 2022-01-31 2022-01-31 Anesthesia Dinh Phillips [facility] 1.2.840.11 [id number] Univers 09:34:00 12:12:00 Event Heriberto Vyas 35 0.1.13.10 [place]y of [place] [phone] [address] 2022-01-31 2022-01-31 Surgery [facility] 1.2.696.030 [id number] Univers 09:45:00 12:11:00 Umberto GUNTER 350.1.13.10 i ty of [place].2.[place]ICAL [id number] [address] 2022-01-31 2022-01-31 Orders Doctor DOMINGO 1.2.840.114 [id number] Univers 00:00:00 00:00:00 Only Unassigned, LUDIN 350.1.13.10 ity of [place] [facility] 4.2.7.2.686 Jesus as [id number] [facility] [address] [place] 2022-01-29 2022-01-29 Orders Doctor DOMINGO 1.2.840.114 [id number] Univers 00:00:00 00:00:00 Only Unassigned, LUDIN 350.1.13.10 ity of [place] [facility] 4.2.7.2.686 Jesus as [id number] [facility] [address] [place] 2022-01-28 2022-01-28 Laboratory Only, Adc Test [facility] 1.2.840. 114 [id number] Univers 10:15:00 10:30:00 Only Umberto Saul 350.1.13.10 ity of [place]FE [id number] [facility] [address] [place] 2022-01-28 2022-01-28 Outpatient R [facility] [id number] Univers 10:15:00 10:15:00 [facility] 2022-01-27 2022-01-27 Outpatient R [facility] [id number] Univers 13:00:00 16:30:58 UMBERTO bryantmckenna [facility] 2022-01-27 2022-01-27 Outpatient R [facility] [id number] Univers 13:00:00 16:30:58 [facility] 2022-01-27 2022-01-27 Post Graduate Internship Mary, Adc Lab Main [facility] 1.2.8 40.114 [id number] Univers 15:15:00 15:30:00 Visit Umberto Salu 350.1.13.10 ity of [place] [facility] [id number] [address] 2022-01-27 2022-01-27 Outpatient R [facility] [id number] Univers 14:46:01 14:48:00 UMBERTO levin [facility] 2022-01-27 2022-01-27 Hospital [facility] 1.2.840.114 [id number] Univers 14:00:00 14:48:00 Encounter Umberto GUNTER 350.1.13.10 ity [facility] 4.2.7.2.[place] [id number] [facility] [address] [place] 2022-01-27 2022-01-27 Ancillary Negro Emmanuel Donna [facility] 1 .2.840.114 [id number] Univers 13:00:00 13:45:00 Visit Umberto Saul 350.1.13.10 ity of [facility] 4.2.7.2.686 [place] [facility] [phone] Hi keaton [facility] [address] BU[address]ING 2022-01-27 2022-01-27 Outpatient R [facility] [id number] Univers 13:00:00 13:00:00 UMBERTO levin [facility] 2022-01-27 2022-01-27 Orders Doctor DOMINGO 1.2.840.114 [id number] Univers 00:00:00 00:00:00 Only Unassigned, LUDIN 350.1.13.10 ity of [place] [facility] 4.2.7.2.686 Jesus as [id number] [address] 2022-01-13 2022-01-13 Prep For [facility] 1.2.840.114 [id number] Univers 00:00:00 00:00:00 Surgery Umberto Thomas [facility] 350.1.13.10 it y [facility] 4.2.7.2.686 Jesus as SAMSON?BLEA [phone] Hi dical KNEY [address] [place] MEDICAL OFFICE BUILDING 2022-01-11 2022-01-11 Orders Doctor DOMINGO 1.2.840.114 [id number] Univers 00:00:00 00:00:00 Only Unassigned, LUDIN 350.1.13.10 ity of [place] [facility] 4.2.7.2.686 Jesus as [id number] [address] 2022-01-07 2022-01-07 Patient [facility] 1.2.840.114 [id number] Univers 00:00:00 00:00:00 Secure Msg Buddy GUNTER 350.1.13.10 [place] of [place] [phone] Hi dical NAL 059 [facility] 2022-01-05 2022-01-05 Outpatient Tere [facility] [id number] Univers 11:26:51 23:59:00 MANISHA levin [facility] 2022-01-05 2022-01-05 Outpatient Tere [facility] [id number] Univers 11:26:51 23:59:00 MANISHA levin [facility] 2022-01-05 2022-01-05 [facility] 1.2.840.114 [id number] Univers 11:26:51 23:59:00 Encounter Manisha A PRIMARY 350.1.13.10 [place] [id number] Hi dical [address] [place] 2022-01-05 2022-01-05 Outpatient Tere [facility] [id number] Univers 11:26:51 23:59:00 MANISHA levin [facility] 2022-01-05 2022-01-05 Outpatient Tere [facility] [id number] Univers 11:26:51 23:59:00 MANISHA levin [facility] 2022-01-05 2022-01-05 Outpatient Tere [facility] [id number] Univers 11:15:00 11:16:23 MANISHA levin [facility] 2022-01-05 2022-01-05 [facility] 1.2.840.114 [id number] Univers 11:15:00 11:16:23 Visit Manisha A PRIMARY 350.1.13.10 it y [place] [id number] Hi dical [address] [place] 2022-01-05 2022-01-05 Outpatient Tere [facility] [id number] [facility] Univers 11:15:00 11:15:00 MANISHA levin [facility] 2022-01-03 2022-01-03 Office Annabelle [facility] 1.2.840.114 [id number] Univers 14:00:00 14:15:00 Visit Dixie Hoyt HEALTH 350.1.13.10 it y of [place] 4.2.7.2.686 Jesus as SAMSON?BLEA [phone] Hi keaotn SMITH 198 [facility] OFFICE [facility] 2022-01-03 2022-01-03 Outpatient R ANNABELLE [facility] [id number] Univers 14:00:00 14:00:[address] [facility] 2021-12-31 2021-12-31 [facility]phone [facility] 1.2.840.114 [id number] Univers 00:00:00 00:00:00 Umberto Thomas HEALTH 350.1.13.10 it y of [place] 4.2.7.2.686 Jesus as SAMSON?BLEA [phone] Hi keaton SMITH 198 [facility] 2021-12-31 2021-12-31 Telephone Guanako [facility] [id number] Univers 00:00:00 00:00:00 [facility]iangjun [facility] 350.1.13.10 it[place] [id number] Hi dical NAL 059 [facility] 2021-12-31 2021-12-31 Patient Doctor [facility] 1.2.840.114 [id number] Univers 00:00:00 00:00:00 Secure Msg Unassigned, HEALTH 350.1.13.10 it[place] of [place] [phone] [facility] [address] [place] OFFICE [facility] 2021-12-30 2021-12-30 Patient [place], [facility] 1.2.840.114 [id number] Univers 00:00:00 00:00:00 Secure Msg Qiangjun [place] 350.1.13.10 ity of [place] [phone] Hi dical NAL 059 [facility] 2021-12-30 2021-12-30 Patient Doctor [facility] 1.2.840.114 [id number] Univers 00:00:00 00:00:00 Secure Ms Unassigned, [facility] 350.1.13.10 ity of [place] 4.2.7.2.686 Jesus as SAMSON?BLEA [phone] Hi keaton SMITH [address] MEDICAL OFFICE [facility] 2021-12-29 2021-12-29 Outpatient R [facility], [facility] [id number] Univers 15:49:46 23:59:00 BUDDY ity o [facility] 2021-12-29 2021-12-29 Outpatient R GUANAKO, [facility] [id number] Univers 15:49:46 23:59:00 [facility] 2021-12-15 2021-12-15 Office [facility] 1.2.840.114 [id number] Univers 14:20:00 14:20:00 Visit [facility] 350.1.13.10 ity of [place].2.[place] ESS[place]AYDE [phone] Hi keaton [facility] 059 [facility] 2021-12-15 2021-12-15 Outpatient R [facility] [id number] Univers 14:20:00 14:17:40 [facility] levin o [facility] 2021-12-15 2021-12-15 Outpatient R [facility] [id number] Univers 14:20:00 14:17:40 [facility] poonam [facility] 2021-12-07 2021-12-07 Office [facility] 1.2.840.114 [id number] Univers 10:15:00 10:30:00 Visit [facility] 350.1.13.10 it y of [place] 4.2.7.2.686 Jesus as SAMSON?BLEA [phone] Hi keaton SMITH 044 [facility] OFFICE [facility] 2021-12-07 2021-12-07 Outpatient R [facility] [id number] Univers 10:15:00 10:15:00 FRANKO itmckenna [facility] 2021-12-03 2021-12-03 Patient Isabel [facility] 1.2.840.114 [id number] Univers 00:00:00 00:00:00 Secure Msg Faith GUN[place] 350.1.13.10 ity of [place] [phone] Hi dical NAL 134 [facility] 2021-12-03 2021-12-03 Orders Doctor DOMINGO 1.2.840.114 [id number] Univers 00:00:00 00:00:00 Only Unassigned, LUDIN 350.1.13.10 ity of [facility] 4.2.7.2.686 Jesus as [phone] [facility] [address] 2021-12-01 2021-12-01 Patient [facility] 1.2.933.314 [id number] Univers 00:00:00 00:00:00 Secure Msg Rosales GUNTER 350.1.13.10 it[place] of [place] [phone] [address] 2021-11-23 2021-11-23 [facility] 1.2.840.114 [id number] Univers 14:21:11 23:59:00 Encounter Rosales LYRIC 350.1.13.10 ity of [place].2.7.2.686 [place] C[place]US [phone] [facility] [address] 2021-11-23 2021-11-23 Outpatient [facility] [id number] Univers 00:00:00 23:59:00 ROSALES ity [facility] 2021-11-23 2021-11-23 Outpatient R [facility] [id number] Univers 00:00:00 23:59:00 ROSALES ity [facility] 2021-11-23 2021-11-23 [facility] 1.2.840.114 [id number] Univers 14:00:00 14:20:00 Encounter Rosales PEÑACARLOS A 350.1.13.10 ity of [place].2.7.2.[place] C[place]US [id number] [facility] [address] 2021-11-23 2021-11-23 Outpatient R ARAM, [facility] [id number] Univers 00:00:00 14:20:00 ROSALES mckenna [facility] 2021-11-23 2021-11-23 Outpatient R ARAM [facility] [id number] Univers 00:00:00 14:20:00 ROSALES mckenna [facility] 2021-11-23 2021-11-23 Orders Doctor DOMINGO 1.2.840.114 [id number] Univers 00:00:00 00:00:00 Only Unassigned, LUDIN 350.1.13.10 ity of [place] [facility] 4.2.7.2.686 Jesus as [id number] [address] 2021-11-22 2021-11-22 Patient [facility] 1.2.840.114 [id number] Univers 00:00:00 00:00:00 Secure Msg Franko HEALTH 350.1.13.10 ity of [place] 4.2.7.2.686 Jesus as SAMSON?BLEA [phone] [address] MEDICAL OFFICE [facility] 2021-11-22 2021-11-22 Patient Ofe [facility] 1.2.840.114 [id number] Univers 00:00:00 00:00:00 Secure Msg Franko HEALTH 350.1.13.10 ity of [place] 4.2.7.2.686 Jesus as SAMSON?BLEA [id number] [address] OFFICE [facility] 2021-11-16 2021-11-16 Patient Doctor DOMINGO 1.2.840.114 [id number] Univers 00:00:00 00:00:00 Secure Msg Unassigned, LUDIN 350.1.13.10 ity of [place] [facility] 4.2.7.2.686 Jesus as [phone] [address] 2021-11-08 2021-11-08 Patient Doctor [facility] 1.2.840.114 [id number] Univers 00:00:00 00:00:00 Secure Msg Unassigned, HEALTH 350.1.13.10 ity of [place] 4.2.7.2.686 Jesus as SAMSON?BLEA [phone] Hi keaton SMITH [address] MEDICAL OFFICE [facility] 2021-11-05 2021-11-05 Office [facility] 1.2.285.656 [id number] Univers 11:00:00 11:00:00 Visit Umberto [facility] 350.1.13.10 it y of [place] 4.2.7.2.686 Jesus as SAMSON?BLEA [phone] Hi keaton [address] MEDICAL OFFICE [facility] 2021-11-05 2021-11-05 Outpatient R [facility] [id number] Univers 11:00:00 09:10:39 [facility] 2021-11-05 2021-11-05 Outpatient R [facility] [id number] Univers 11:00:00 09:10:39 [facility] 2021-11-05 2021-11-05 Outpatient R [facility] [id number] Univers 11:00:00 09:10:39 [facility] 2021-11-05 2021-11-05 Outpatient R [facility] [id number] Univers 11:00:00 09:10:39 [facility] 2021-11-02 2021-11-02 Telephone [facility] 1.2.544.308 [id number] Univers 00:00:00 00:00:00 Manisha A PRIMARY 350.1.13.10 it y of [place].2.[place].2.686 [place] [facility] [phone] [facility] [address] [place] [address] 2021-10-26 2021-10-26 Patient [facility] 1.2.840.114 [id number] Univers 00:00:00 00:00:00 Secure Msg Manisha A MULTISPEC 350.1.13.10 ity of [place].2.7.2.686 [place] CAR[place] [phone] Michael peng AND JAVIER [address] [place] [address] [facility]IN[facility] 2021-10-25 2021-10-25 Refill Jr [facility] 1.2.840.114 [id number] Univers 00:00:00 00:00:00 Manisha A PRIMARY 350.1.13.10 it y of [place] 4[place]2.[place].2.[place] PAVILLION [phone] [facility] [address] [place] [address] 2021-10-14 2021-10-14 Patient Doctor DOMINGO 1.2.840.114 [id number] Univers 00:00:00 00:00:00 Secure Msg Unassigned, LUDIN 350.1.13.10 ity of [place] [facility]OSPITAL 4.2.7.2.686 Jesus as [phone] [facility] [address] 2021-10-08 2021-10-08 Patient [facility] 1.2.840.114 [id number] Univers 00:00:00 00:00:00 Secure Msg [facility] 350.1.13.10 ity of [place] 4.2.7.2.686 Jesus as SAMSON?BLEA [phone] [address] MEDICAL OFFICE [facility] 2021-10-07 2021-10-07 Telephone [facility] 1.2.885.295 [id number] Univers 00:00:00 00:00:00 Manisha Hale MULTISPEC 350.1.13.10 ity of [place]2.[place] CAR[place] [phone] [facility] AND [address] [facility]ES [facility] 2021-10-07 2021-10-07 Telephone [facility] 1.2.840.114 [id number] Univers 00:00:00 00:00:00 [facility] 350.1.13.10 it y of [place] 4.2.7.2.686 Jesus as SAMSON?BLEA [phone] [address] MEDICAL OFFICE BUILDING 2021-10-05 2021-10-05 Outpatient [facility] [id number] Univers 12:04:52 23:59:[address] of [facility] 2021-10-05 2021-10-05 Hospital [facility] 1.2.840.114 [id number] Univers 12:04:52 23:59:00 Encounter Manisha Hale PRIMARY 350.1.13.10 it[place] of [place].2.[place]AV[place] [id number] [facility] [address] 2021-10-05 2021-10-05 Outpatient Tere NORR[facility] [id number] Univers 12:04:52 23:59:00 MANISHA levin [facility] 2021-10-05 2021-10-05 Outpatient Tere [facility] [id number] Univers 12:04:52 23:59:00 MANISHA levin [facility] 2021-10-05 2021-10-05 Outpatient Tere [facility] [id number] Univers 12:04:52 23:59:00 MANISHA levin [facility] 2021-10-05 2021-10-05 Post Graduate Internship Pcp-Lab [facility] 1.2.840.114 [id number] Univers 12:15:00 12:30:00 Visit Manisha Norris PRIMARY 350.1.13.10 ity of [place] 4.2.[place].2.[place] [id number] Hi keaton [address] 2021-10-05 2021-10-05 Outpatient Tere [facility] [id number] Univers 12:15:00 12:15:00 MANISHA levin [facility] 2021-10-05 2021-10-05 Office [facility] 1.2.840.114 [id number] Univers 11:15:00 11:50:24 Visit Mansiha Hale PRIMARY 350.1.13.10 it y of [place]2.[place].2.[place] [phone] Hi dical [address] [place] 2021-10-04 2021-10-04 Refill Jr [facility] 1.2.840.114 [id number] Univers 00:00:00 00:00:00 Manisha A PRIMARY 350.1.13.10 it y of [place].2.[place] [phone] [facility] [address] [place] 2021-08-31 2021-08-31 Patient Gavin [facility] 1.2.840.114 [id number] Univers 00:00:00 00:00:00 Secure katiana [facility] 350.1.13.10 ity of [place].2.[place].2.[place] [phone] [address] 2021-08-30 2021-08-30 Telephone [facility] 1.2.959.152 [id number] Univers 00:00:00 00:00:00 Guerita LYRIC 350.1.13.10 i ty [facility] 4.2.7.2.[place] [phone] [address] 2021-08-24 2021-08-24 Office [facility] 1.2.840.114 [id number] Univers 11:30:00 12:16:13 Visit [facility] 350.1.13.10 it y of [place] 4.2.7.2.686 Jesus as SAMSON?BLEA [phone] [address] 2021-08-24 2021-08-24 Outpatient [facility] [id number] Univers 11:30:00 12:16:13 [facility] 2021-08-24 2021-08-24 Outpatient R [facility] [id number] Univers 11:30:00 11:30:00 [facility] 2021-08-24 2021-08-24 [facility]ill [facility] 1.2.840.114 [id number] Univers 00:00:00 00:00:00 Manisha A PRIMARY 350.1.13.10 it y of [place] 4[place]2.[place].2.[place] [phone] [address] 2021-08-13 2021-08-13 Refill [facility] 1.2.840.114 [id number] Univers 00:00:00 00:00:00 Guerita GUNTER 350.1.13.10 i ty [facility] 4.2.7.2.[place] [phone] [address] 2021-07-28 2021-07-28 Office [facility] 1.2.936.715 [id number] Univers 10:40:00 11:00:00 Visit Leela GUNTER 350.1.13.10 ity of [place] 4.2.7.2.686 [place] ESSIO [phone] Hi maureenmakayla [facility] 085 [facility] 2021-07-28 2021-07-28 Outpatient R ALICIA BONILLAAZBehzad [facility] [id number] Univers 10:40:00 10:40:00 ATANASALICIA FLORESAZL ity [facility] 2021-07-28 2021-07-28 Outpatient R ADINA [facility] [id number] Univers 10:40:00 10:40:00 [facility] ity [facility] 2021-07-28 2021-07-28 Orders Doctor DOMINGO 1.2.840.114 [id number] Univers 00:00:00 00:00:00 Only Unassigned, LUDIN 350.1.13.10 ity of [place] [facility] 4.2.7.2.686 Jesus as [phone] [address] 2021-07-27 2021-07-27 Patient Ofe [facility] 1.2.840.114 [id number] Univers 00:00:00 00:00:[address] [facility] 350.1.13.10 ity of [place] [facility] 4.2.7.2.686 Jesus as SAMSON?BLEA [phone] [facility] KNEY [address] MEDICAL OFFICE [facility] 2021-07-20 2021-07-20 Orders Doctor DOMINGO 1.2.840.114 [id number] Univers 00:00:00 00:00:00 Only Unassigned, LUDIN 350.1.13.10 ity of [place] [facility]OSPITAL 4.2.7.2.686 Jesus as [id number] [address] 2021-07-16 2021-07-16 Telephone MALATHI Norris 1.2.122.873 [id number] Univers 00:00:00 00:00:00 Manisha MACK 350.1.13.10 it y of [place].2.[place] PAVNABORON [phone] [facility] [address] [place] 2021-07-13 2021-07-13 Telephone MALATHI Norris 1.2.811.927 [id number] Univers 00:00:00 00:00:00 Manisha Hale PRIMARY 350.1.13.10 it y of [place] 4[place]2.[place].2.[place] [phone] Hi dical [address] [place] 2021-07-06 2021-07-06 Hospital [facility] 1.2.840.114 [id number] Univers 12:14:46 23:59:00 Encounter Manisha Hale PRIMARY 350.1.13.10 ity of [place] 4.2.7.2.[place] [id number] Hi dical [address] [place] 2021-07-06 2021-07-06 Post Graduate Internship Pcp-Lab [facility] 1.2.840.114 [id number] Univers 13:45:00 14:00:00 Visit Manisha Norris PRIMARY 350.1.13.10 ity of [place].2.[place] [id number] Hi dicfl [address] 2021-07-06 2021-07-06 Outpatient [facility] [id number] Univers 11:15:00 12:04:47 MANISHA levin [facility] 2021-07-06 2021-07-06 Outpatient R [facility] [id number] Univers 11:15:00 12:04:47 MANISHA levin [facility] 2021-07-06 2021-07-06 Office [facility] 1.2.840.114 [id number] Univers 11:15:00 12:04:47 Visit Manisha Hale PRIMARY 350.1.13.10 it y of [place] 4[place]2.7.2.686 [place] [phone] Hi dicfl [address] [place] 2021-07-06 2021-07-06 Outpatient R [facility] [id number] Univers 11:15:00 11:15:00 MANISHA levin [facility] 2021-06-29 2021-06-[address] 1.2.840.114 [id number] Univers 00:00:00 00:00:00 Only Unassigned, LUDIN 350.1.13.10 ity of [place] [facility]OSPITAL 4.2.7.2.686 Jesus as [phone] [address] 2021-06-17 2021-06-17 Telephone [facility] 1.2.840.114 [id number] Univers 00:00:00 00:00:00 Franko HEALTH 350.1.13.10 it y of [place] 4.2.7.2.686 Jesus as SAMSON?BLEA [phone] [facility] [address] [place] MEDICAL OFFICE BUILDING 2021-06-17 2021-06-[address] 1.2.840.114 [id number] Univers 00:00:00 00:00:00 Only Unassigned, LUDIN 350.1.13.10 ity of [place] [facility] 4.2.7.2.686 Jesus as [phone] [address] 2021-06-09 2021-06-09 Outpatient Tere [facility] [id number] Univers 10:20:41 23:59:00 MANISHA levin [facility] 2021-06-09 2021-06-09 Outpatient R [facility] [id number] Univers 10:20:41 23:59:00 MANISHA ity [facility] 2021-06-09 2021-06-09 Outpatient R [facility] [id number] Univers 10:20:41 23:59:00 MANISHA ity [facility] 2021-06-09 2021-06-09 Outpatient Tere [facility] [id number] Univers 10:20:41 23:59:00 MANISHA itmckenna [facility] 2021-06-09 2021-06-09 [facility] 1.2.840.114 [id number] Univers 10:20:41 23:59:00 Encounter Manisha A HEALTH 350.1.13.10 ity of [place] 4.2.7.2.686 Jesus as SAMSON?BLEA [phone] [facility] [address] [place] MEDICAL OFFICE [facility] 2021-06-09 2021-06-09 [facility] 1.2.840.114 [id number] Univers 10:20:27 23:59:00 Encounter Manisha A HEALTH 350.1.13.10 ity of [place] 4.2.7.2.686 Jesus as SAMSON?BLEA [phone] Hi keaton SMITH 809 [facility] OFFICE [facility] 2021-06-09 2021-06-09 Outpatient Tere [facility] [id number] Univers 12:00:00 12:00:00 MANISHA levin [facility] 2021-06-09 2021-06-09 Post Graduate Internship Lab, [facility] 1.2.840.1 14 [id number] Univers 10:20:19 10:35:19 Visit Franko Thakur elizabeth [facility] 350.1.13 .10 ity of [facility] 4.2.7.2.686 Jesus as SAMSON?BLEA [phone] Hi keaton SMITH 353 [facility] OFFICE [facility] 2021-06-09 2021-06-09 Office Ofe [facility] 1.2.840.114 [id number] Univers 09:52:48 10:07:48 Visit [facility] 350.1.13.10 it y of [place] [facility] 4.2.7.2.686 Jesus as SAMSON?BLEA [phone] Hi keaton SMITH 044 [facility] OFFICE [facility] 2021-06-09 2021-06-09 Outpatient Tere THAKUR [facility] [id number] Univers 10:00:00 10:00:00 FRANKO bryantmckenna [facility] 2021-06-08 2021-06-08 Outpatient Tere [facility] [id number] Univers 10:45:00 11:40:22 MANISHA levin [facility] 2021-06-08 2021-06-08 Outpatient Tere [facility] [id number] Univers 10:45:00 11:40:22 MANISHA levin [facility] 2021-06-08 2021-06-08 Office [facility] 1.2.840.114 [id number] Univers 10:30:31 11:40:22 Visit Manisha Hale [facility] 350.1.13.10 it y of [place] 4.2.7.2.686 [place]AV[place] [id number] Hi dicmakayla [address] 2021-06-08 2021-06-08 Outpatient R [facility] [id number] Univers 10:45:00 10:45:00 MANISHA levin [facility] 2021-06-08 2021-06-08 Telephone [facility] 1.2.840.114 [id number] Univers 00:00:00 00:00:00 Franko [facility] 350.1.13.10 it y of [place] 4.2.7.2.686 Jesus as SASMON?BLEA [phone] [address] MEDICAL OFFICE BUILDING 2021-06-08 2021-06-08 Orders Doctor DOMINGO 1.2.840.114 [id number] Univers 00:00:00 00:00:00 Only Unassigned, LUDIN 350.1.13.10 ity of [place] [facility] 4.2.7.2.686 Jesus as [phone] [facility] [address] [place] 2021-06-07 2021-06-07 Outpatient [facility] [id number] Univers 08:45:00 08:45:00 FRANKO mckenna [facility] 2021-06-04 2021-06-04 Patient Doctor DOMINGO 1.2.840.114 [id number] Univers 00:00:00 00:00:00 Secure Msg Unassigned, LUDIN 350.1.13.10 [facility] 4.2.7.2.686 Jesus as [id number] [facility] [address] [place] 2021-05-25 2021-05-25 [facility] 1.2.840.114 [id number] Univers 14:30:47 23:59:00 Encounter Rosales GUNTER 350.1.13.10 ity of [place] 4.2.7.2.[place] RUFE [id number] [facility] [address] [place] 2021-05-25 2021-05-25 Outpatient [facility] [id number] Univers 14:29:53 14:29:53 ROSALES levin [facility] 2021-05-25 2021-05-25 [facility] 1.2.840.114 [id number] Univers 14:29:53 14:29:53 Encounter Rosales GUNTER 350.1.13.10 ity [facility] 4.2.7.2.686 [place] CAMPUS [id number] [facility] [address] 2021-05-25 2021-05-25 Case Aram [facility] 1.2.350.777 [id number] Univers 00:00:00 00:00:00 Management Rosales GUNTER 350.1.13.10 ity of [place].2.7.2.[place]ESS[place] [phone] Hi dical NAL [address] [facility] 2021-05-21 2021-05-21 Outpatient R [facility] [id number] Univers 11:30:00 11:30:[address] [facility] 2021-05-21 2021-05-21 Outpatient R [facility] [id number] Univers 11:30:00 11:30:[address] [facility] 2021-05-19 2021-05-19 Telephone Ofe [facility] 1.2.840.114 [id number] Univers 00:00:00 00:00:00 [facility] 350.1.13.10 it y of [place] 4.2.7.2.686 Jesus as SAMSON?BLEA [phone] Hi keaton [facility] [address] [place] MEDICAL OFFICE [facility] 2021-05-04 2021-05-04 Telephone Oleg [facility] 1.2.840.114 [id number] Univers 00:00:00 00:00:00 Teresa [place] 350.1.13.10 [place] Profess[place] [phone] Hi dical nal 145 [facility] 2021-04-28 2021-04-28 Orders Doctor DOMINGO 1.2.840.114 [id number] Univers 00:00:00 00:00:00 Only Unassigned, LUDIN 350.1.13.10 ity of [place] [facility] 4.2.7.2.686 Jesus as [phone] [facility] [address] [place] 2021-04-21 2021-04-21 Office [facility] 1.2.708.857 [id number] Univers 14:41:37 15:01:37 Visit Leela [place] 350.1.13.10 it[place] of [place] 4.2.7.2.686 [facility] [phone] Hi dicmakayla [facility] 2021-04-21 2021-04-21 Outpatient R TJALICIA RILEYVICK [facility] [id number] Univers 15:00:00 15:00:00 TJRISHABHSANDRAALICIAVICK itmckenna [facility] 2021-04-07 2021-04-07 Outpatient R ALICIA BONILLAAZBehzad [facility] [id number] Univers 19:30:00 19:30:00 TJALICIA RILEYAZBehzad mckenna [facility] 2021-04-07 2021-04-07 Post Graduate Internship 1, [facility] Sleep Lab Bed [facility] 1. 2.840.114 [id number] Univers 14:08:40 16:38:40 Visit Adina Leela Gunter 350.1.13. 10 [place] [id number] [facility] [phone] [facility] [address] 2021-04-06 2021-04-06 Outpatient R ARAM [facility] [id number] Univers 13:30:00 14:54:02 ROSALES levin [facility] 2021-04-06 2021-04-06 [facility] 1.2.840.114 [id number] Univers 13:15:14 13:45:14 Visit Rosales Jiménez [id number] it y of Women's 4.2.7.2.686 [facility] [phone] [facility] [address] 2021-04-06 2021-04-06 Outpatient R ARAM [facility] [id number] Univers 13:30:00 13:30:00 ROSALES levin [facility] 2021-04-05 2021-04-05 Laboratory Only, [facility] Test [facility] 1.2.840. 114 [id number] Univers 10:13:44 10:28:44 Only Anderson Hilton [id number] [place] 4.2.7.2.686 [facility] [phone] [address] 2021-04-05 2021-04-05 Laboratory Only, Adc Test [facility] 1.2.840. 114 [id number] Univers 10:13:44 10:28:44 Only Yobani Anderson [place] [id number] [id number] [phone] [address] 2021-04-05 2021-04-05 Outpatient R [facility] [id number] Univers 10:15:00 10:15:[address] [facility] 2021-04-05 2021-04-05 Orders Doctor DOMINGO 1.2.840.114 [id number] Univers 00:00:00 00:00:00 Only Unassigned, LUDIN [id number] ity of [facility] 4.2.7.2.686 Jesus as [phone] [address] 2021-04-05 2021-04-05 Orders Doctor DOMINGO 1.2.840.114 [id number] Univers 00:00:00 00:00:00 Only Unassigned, LUDIN [id number] ity of [facility] 4.2.7.2.686 Jesus as [phone] [address] 2021-03-24 2021-03-24 Telephone [facility] 1.2.840.114 [id number] Univers 00:00:00 00:00:00 [facility] [id number] it y of [place] 4.2.7.2.686 Jeuss as Samson?Blea [phone] [facility] [address] [facility] 2021-03-24 2021-03-24 Telephone [place] [facility] 1.2.840.114 [id number] Univers 00:00:00 00:00:00 [facility] [id number] it y of [place] [id number] Jesus as Samson?Blea [phone] [facility] 0[address] [place] [facility] 2021-03-23 2021-03-23 Telephone [facility] 1.2.840.114 [id number] Univers 00:00:00 00:00:00 [facility] [id number] it y of [place] [id number] Jesus as Samson?Blea [phone] [facility] selvin 044 [facility] 2021-03-10 2021-03-10 Office [facility] 1.2.139.135 [id number] Univers 14:29:05 14:49:05 Visit [facility] [id number] [id number] [phone] [facility] nal 085 [facility] 2021-03-10 2021-03-10 [facility] 1.2.094.156 [id number] Univers 14:29:05 14:49:05 Visit [facility] [id number] [id number] [phone] [address] 2021-03-10 2021-03-10 Outpatient R LEELA BONILLA [facility] [id number] Univers 14:40:00 14:40:00 [facility] ity of [facility] 2021-03-10 2021-03-10 Patient [facility] [id number] Univers 00:00:00 00:00:00 Secure [facility] [id number] ity of [place] [id number] Jesus as Samson?Blea [phone] [facility] 220 [facility] 2021-03-09 2021-03-09 Outpatient R OFE [facility] [id number] Univers 10:00:00 10:00:00 FRANKO ity [facility] 2021-03-09 2021-03-09 Office [facility] 1.2.840.114 [id number] Univers 09:32:44 09:47:44 Visit [facility] [id number] it y of [place] 4.2.7.2.686 Jesus as Samson?Blea [phone] [address] Medical Office Building 2021-03-08 2021-03-08 Patient Alonso, [facility] 1.2.840.114 [id number] Univers 00:00:00 00:00:00 [facility] [id number] ity of [place] 4.2.7.2.686 Jesus as SAMSON?BLEA [phone] [facility] 220 [facility] OFFICE [facility] 2021-03-05 2021-03-05 Patient Alonso, [facility] 1.2.840.114 [id number] Univers 00:00:00 00:00:00 Secure [facility] [id number] ity of [place] 4.2.7.2.686 Jesus as Samson?Blea [phone] [facility] 220 [facility] 2021-03-04 2021-03-04 Outpatient R LEELA BONILLA [facility] [id number] Univers 19:30:00 19:30:00 LEELA BONILLA ity of [facility] 2021-03-04 2021-03-04 Post Graduate Internship 1, [facility] Sleep Lab Bed [facility] 1. 2.840.114 [id number] Univers 15:12:29 17:42:29 Visit Leela Bonilla T [place] 350.1.13. 10 [place] [phone] [facility] [address] [place] 2021-03-04 2021-03-04 Orders Doctor DOMINGO 1.2.840.114 [id number] Univers 00:00:00 00:00:00 Only Unassigned, LUDIN 350.1.13.10 ity of [place] [facility] 4.2.7.2.686 Jesus as [phone] [facility] [address] 2021-03-04 2021-03-04 Patient Alonso, [facility] 1.2.840.114 [id number] Univers 00:00:00 00:00:00 Secure [facility] [id number] ity of [place] 4.2.7.2.686 Jesus as SAMSON?BLEA [phone] [facility] [address] [place] MEDICAL OFFICE BUILDING 2021-03-02 2021-03-02 Laboratory Only, Adc Test [facility] 1.2.840. 114 [id number] Univers 14:35:01 14:50:01 Only Anderson Hilton [id number] [place] [phone] [address] 2021-03-02 2021-03-02 Outpatient R [facility] [id number] Univers 14:30:00 14:30:[address] [facility] 2021 2021 Post Graduate Internship Mary, Adc Lab Main [facility] 1.2.8 40.114 [id number] Univers 12:29:22 12:44:22 Visit Guerita Alonso 350.1.13.10 [place] [phone] [facility] 353 [facility] 2021 2021 Office [facility] 1.2.840.114 [id number] Univers 10:58:32 12:05:09 Visit Guerita Gunter 350.1.13.10 [place] [phone] [facility] 220 [facility] 2021 2021 Office [facility] 1.2.840.114 [id number] Univers 10:58:32 12:05:09 Visit Guerita Gunter 350.1.13.10 [place] [phone] [facility] 220 [facility] 2021 2021 Outpatient R GAVIN [facility] [id number] Univers 10:30:00 12:05:09 [facility] 2021 2021 Outpatient R GAVIN [facility] [id number] Univers 10:30:00 10:30:00 [facility] [address] 1.2.840.114 [id number] Univers 00:00:00 00:00:00 Only Unassigned, LUDIN 350.1.13.10 ity of [place] [facility] 4.2.7.2.686 Jesus as [phone] [address] 2021-02-03 2021-02-03 Office [facility] [id number] Univers 08:57:54 09:17:54 Visit Aliciaohbehzad Gunter 350.1.13.10 [place] [phone] Hi dical nal 085 [facility] 2021-02-03 2021-02-03 Outpatient R ALICIA BONILLAAZBehzad [facility] [id number] Univers 09:00:00 09:00:00 TJROSEMARYLEELA ity [facility] 2021-02-02 2021-02-02 Office [facility] 1.2.840.114 [id number] [facility] 09:10:37 09:40:37 Visit [facility] 350.1.13.10 it y of [place] 4.2.7.2.686 Jesus as Professio [phone] [facility] [address] [place] Office Building One 2021-02-02 2021-02-02 Outpatient R OFE [facility] [id number] Univers 09:30:00 09:30:00 FRANKO y [facility] 2021-02-02 2021-02-[address] 1.2.840.114 [id number] Univers 00:00:00 00:00:00 Only Unassigned, LUDIN 350.1.13.10 ity of [place] [facility] 4.2.7.2.686 Jesus as [phone] [address] 2021-02-01 2021-02-01 [facility] [id number] Univers 13:30:00 13:30:00 FRANKO ity [facility] 2020-07-01 2020-07-01 Outpatient KUSH ITALO [facility] [id number] [place] 06:05:00 16:15:00 [place] 2020-05-28 2020-05-28 Outpatient 3 Andry Dinero [facility] [id number] Medical 12:12:00 12:12:[address] [facility] 2020-05-28 2020-05-28 Outpatient 3 Andry Dinero [facility] [id number] Medical 12:12:00 12:12:00 Andry Dinero [address] [facility] Results Test Description Test Time Test Comments Results Result Comments Source POCT MOLECULAR FLU 2022-10-13 20:35:51 Test Item Value Reference Range Interpretation Comme nts POCT Molecular FluA (test code = 58438-0) Negative Negative POCT Molecular FluB (test code = 48154-2) Negative Negative Lab Interpretation (test code = 47857-5) Normal [facility] MOLECULAR [id number] 20:35:51 Test Item Value Reference Range Interpretation Comments POCT Molecular FluA (test code = Negative Negative 69081-2) POCT Molecular FluB (test code = Negative Negative 83028-2) Lab Interpretation (test code = Normal 25098-9) [facility] MOLECULAR [id number] 20:18:28 Test Item Value Reference Range Interpretation Comments POCT Molecular Strep (test code = Negative Negative 81401-1) Lab Interpretation (test code = Normal 37134-7) [facility] MOLECULAR [id number] 20:18:28 Test Item Value Reference Range Interpretation Comments POCT Molecular Strep (test code = Negative Negative 29859-4) Lab Interpretation (test code = Normal 12538-0) [facility] [id number] 15:04:14 [facility] 1965 Sex: FPatient: KIRILL HANSEN Date/Time05/28/2020 13:30 CSTReason for ExamOther (please specify)ReportEXAMINATION:Ultrasound-guided left [...] left neck reveals the well-circumscribed left thyroid inferior /mid pole nodules. The overlying area of the left neck base was prepped and draped in the usual sterile fashion. 1% lidocaine was administered for local anesthetic.The 3.2 cm left thyroid lobe inferiorpole nodule was first targeted. Multiple attempts with [...] collections. The patient tolerated the procedure well withoutcomplications.IMPRESSION:1. Technically successful ultrasound-guided left thyroid lobe inferior polenodule FNA.2. Technically successful ultrasound-guided left thyroid lobe midpole pole nodule FNA.3. Follow-up pathology for final results of the delivered specimens. Final Dictated by: MD Moraima, SamerDictated DT/TM: 05/28/2020 2:59 pmSigned by: MD Moraima, SamerSigned (Electronic Signature): 05/28/2020 3:04 pmIR Thyroid [id number] 15:04:14 [facility] : 1965 Sex: FPatient: KIRILL HANSEN Date/Time05/28/2020 13:30 CSTReason for Examleft thyroid noduleReportEXAMINATION:Ultrasound-guided left thyroid lobe inferior pole nodule FNAUltrasound-guidedleft thyroid lobe midpole nodule FNAINDICATION: Well-circumscribed 3.2 [...] left thyroid lobe midpole nodule was then targeted.Multiple attempts with 25-gauge needles were inserted into the lesion under real-time sonographic guidance for purposes of FNA. A total of 3 passes were performed. All aspirates were given to the pathol ogist for preparation of slides/specimens, deemed adequate by the pathologist. All hardware was thenremoved.A final sonographic evaluation throughout the entirety of the left neck base soft tissues reveals no abnormalities, without fluid collections. The patient tolerated the procedure well without co mplications.IMPRESSION:1. Technically successful ultrasound-guided left thyroid lobe inferior pole nodule FNA.2. Technically successful ultrasound-guided left thyroid lobe midpole pole nodule FNA.3. Follow-up pathology for final results of the delivered specimens. Final Dictated by: MD Moraima, SamerDictated DT/TM: 05/28/2020 2:59 pmSigned by: MD Moraima, SamerSigned (Electronic Signature): 05/28/2020 3:04 pmPOC [id number] 12:43:26 Test Item Value Reference Range Interpretation Comments Glucose POC (test 107 mg/dL 74-106 H POC Glucos e used on code = Glucose POC) critical ly ill patients is considered " off-label use" and has no t been cleared or appr jeannette by the FDA. Altern ative testing methods should be considered i f the patient is crit ically ill. POC [id number] 12:21:41 Test Item Value Reference Range Interpretation Comments Glucose POC (test 105 mg/dL 74-106 POC Glucos e used on code = Glucose POC) critical ly ill patients is considered " off-label use" and has no t been cleared or appr jeannette by the FDA. Altern ative testing methods should be considered i f the patient is crit ically ill. Prothrombin Time and [id number] 11:11:55 Test Item Value Reference Range Interpretation Comments Prothrombin Time (test code = 10.8 seconds 9.0-12.0 Prothrombin Time) INR (test code = INR) 1.0 ratio 0.9-1.2 Partial Thromboplastin [id number] 11:11:55 Test Item Value Reference Range Interpretation Comments Partial Thromboplastin Time 27.8 seconds 24.0-35.0 (test code = Partial Thromboplastin Time) IG [id number] 10:58:55 Test Item Value Reference Range Interpretation Comments IG (test code = IG) 0 % 0-5 IG Abs (test code = IG Abs) 0 x10 N Complete Blood Count with [id number] 10:58:54 Test Item Value Reference Range Interpretation [...] = Slide Review) GL_SET_SLIDE _REVIEW_A UTO Automated [id number] 10:58:54 Test Item Value Reference Range Interpretation Comments Neutro Auto (test code = Neutro Auto) 60.9 % N Lymph Auto (test code = Lymph Auto) 27.7 % N [place] Auto (test code = [place] Auto) 8.5 % N Eos, Auto (test code = Eos, Auto) 1.8 % N Basophil Auto (test code = Basophil 0.9 % N Auto) Neutro Absolute (test code = Neutro 2.7 x10 2.7-7.3 Absolute) Lymph Absolute (test code = Lymph 1.2 x10 0.8-3.5 Absolute) [place] Absolute (test code = [place] 0.4 x10 0.3-0.9 Absolute) Eos Absolute (test code = Eos 0.1 x10 0.0-0.3 Absolute) Baso Absolute (test code = Baso 0.0 x10 0.0-0.1 Absolute)
[2023-05-24] MEDS ORDERED: HYDROCODONE/APAP 10/325 TAB ONE (12:40)
[2023-05-24 13:13] LABS: Absolute Lymphocytes (CBC) 1.5 K/uL (0.7-4.9); Hematocrit 37.9 % (36.0-45.0); Lymphocytes % 31.4 % (15.3-44.8); MCV 91.5 fL (80-100); MPV 8.5 fL (7.6-11.3); Platelets 231 thou/uL (152-406); RBC Red Blood Cell Count 4.14 M/uL (3.86-4.86)
[2023-05-24 13:43] LABS: Albumin 4.1 g/dL (3.4-5.0); Bilirubin Direct 0.1 mg/dL (0-0.2); Bilirubin Indirect, Calculated 0.4 mg/dL (0.2-0.8); Bilirubin Total 0.5 mg/dL (0.2-1.0); Magnesium 1.9 mg/dL (1.6-2.4); Protein, Total 7.8 g/dL (6.4-8.2); Troponin High Sensitivity 3.2 pg/mL (<58.9)
--- NOTE | 2023-05-24 13:57 | RAD REPORT ---
EXAM DESCRIPTION: RAD - Chest Single View - 05/24/2023 1:49 pm CLINICAL HISTORY: CHEST PAIN Chest pain. COMPARISON: Chest Single View dated 07/07/2022; Chest Single View dated 02/03/2022; Chest Single View dated 02/02/2022; Chest Single View dated 06/28/2021 FINDINGS: Portable technique limits examination quality. The lungs are grossly clear. The heart is normal in size. No displaced fractures. IMPRESSION: No acute intrathoracic process suspected.
[2023-05-24] MEDS ORDERED: MORPHINE 4 MG/ML SYR ONE (14:30)
--- NOTE | 2023-05-24 14:40 | EDPHYS ---
Physician Documentation [facility] Name: Lashon Baca Age: 58 yrs Sex: Female : 1965 Arrival Date: 05/24/2023 Time: 12:05 Bed DIS1 Private MD: ED Physician Mario Reese HPI: 05/24 16:50 This 58 yrs old Female presents to ER via Ambulatory with complaints of rt Shortness Of Breath, Back Pain. 16:50 Patient with history of rheumatoid arthritis and fibromyalgia presents ED with a rt burning sensation to her back, chest, arms with associated shortness of breath which she attributes due to the pain. This consistent with prior episodes of fibromyalgia rheumatoid arthritis. Denies other acute complaints at this time. Symptoms are moderate in severity, no other aggravating alleviating factors.. Historical: - Allergies: 12:19 Cymbalta (rash); iw 12:19 Savella (rash); iw 12:19 tramadol (Itching); iw - PMHx: 12:19 Bipolar disorder; Diabetes - NIDDM; Diabetes Mellitus Type 2; Fibromyalgia; Silas's iw disease; Kidney stone; Rheumatoid Arthritis; Sleep Apnea; - PSHx: 12:19 section; L knee; L side of thyroid removed (Cancerous lumps); hysterectomy; R iw hip replacement; Cholecystectomy; - Immunization history:: Flu vaccine status is unknown. - Social history:: Smoking status: Reported history of juuling and/or vaping. - Family history:: not pertinent. ROS: 16:50 Constitutional: Negative for fever, chills, and weight loss, Abdomen/GI: Negative for rt abdominal pain, nausea, vomiting, diarrhea, and constipation, MS/Extremity: Negative for injury and deformity, Skin: Negative for injury, rash, and discoloration, Neuro: Negative for headache, weakness, numbness, tingling, and seizure, 16:50 Cardiovascular: Positive for chest pain, Negative for edema, 16:50 Respiratory: Positive for shortness of breath, Negative for cough, 16:50 Back: Positive for pain at rest, Negative for injury or acute deformity, Exam: 13:02 ECG was reviewed by the Attending Physician. rt 16:50 Constitutional: This is a well developed, well nourished patient who is awake, alert, rt and in no acute distress. Head/Face: Normocephalic, atraumatic. Chest/axilla: Normal chest wall appearance and motion. Nontender with no deformity. No lesions are appreciated. Cardiovascular: Regular rate and rhythm with a normal S1 and S2. No gallops, murmurs, or rubs. Normal PMI, no JVD. No pulse deficits. Respiratory: Lungs have equal breath sounds bilaterally, clear to auscultation and percussion. No rales, rhonchi or wheezes noted. No increased work of breathing, no retractions or nasal flaring. Abdomen/GI: Soft, non-tender, with normal bowel sounds. No distension or tympany. No guarding or rebound. No evidence of tenderness throughout. Skin: Warm, dry with normal turgor. Normal color with no rashes, no lesions, and no evidence of cellulitis. MS/ Extremity: Pulses equal, no cyanosis. Neurovascular intact. Full, normal range of motion. Neuro: Awake and alert, GCS 15, oriented to person, place, time, and situation. Cranial nerves II-XII grossly intact. Motor strength 5/5 in all extremities. Sensory grossly intact. Cerebellar exam normal. Normal gait. Psych: Awake, alert, with orientation to person, place and time. Behavior, mood, and affect are within normal limits. 16:50 ECG was reviewed by the Attending Physician. Vital Signs: 12:17 BP 125 / 77; Pulse 90; Resp 16; Temp 98.4; Pulse Ox 98% on R/A; Weight 84.37 kg; Height iw 5 ft. 5 in. ; Pain 9/10; 14:44 BP 149 / 99; Pulse 69; Pulse Ox 96% ; tm6 12:17 Body Mass Index 30.95 (84.37 kg, 165.1 cm) iw 12:17 Pain Scale: Adult iw MDM: 12:24 Patient medically screened. rt 16:50 Differential diagnosis: Pneumonia, pneumothorax, ACS, pulmonary embolism, fibromyalgia, rt rheumatoid arthritis. Data reviewed: vital signs, nurses notes, lab test result(s), EKG, radiologic studies. Consideration of Admission/Observation Escalation of care including admission/observation considered. Patient stated that she got an epigastric pain on morphine menstruation after discharge. Brought patient back, reassessed, abdominal exam is benign, repeat EKG shows no changes, repeat troponin was unremarkable, lipase normal, pulmonary embolism scan was unremarkable. Vane the patient requires admission at this time for chest pain rule out. Patient with mild alveolitis, not likely clinically significant. Do not suspect the patient has a pneumonia.. I considered the following discharge prescriptions or medication management in the emergency department Medications were administered in the Emergency Department. See MAR. Independent interpretation of the following test(s) in the Emergency Department X-Ray: My interpretation is No pneumonia seen on interpretation of x-ray images. Care significantly affected by the following chronic conditions: Diabetes. Counseling: I had a detailed discussion with the patient and/or guardian regarding the historical points, exam findings, and any diagnostic results supporting the discharge/admit diagnosis, lab results, radiology results, the need for outpatient follow up, to return to the emergency department if symptoms worsen or persist or if there are any questions or concerns that arise at home. Response to treatment: the patient's symptoms have markedly improved after treatment. 05/24 12:25 Order name: Basic Metabolic Panel; Complete Time: 13:43 rt 05/24 12:25 Order name: CBC with Diff; Complete Time: 13:43 rt 05/24 12:25 Order name: LFT's; Complete Time: 13:43 rt 05/24 12:25 Order name: Magnesium; Complete Time: 13:43 rt 05/24 12:25 Order name: Troponin HS; Complete Time: 13:43 rt 05/24 15:10 Order name: Troponin High Sensitivity; Complete Time: 16:07 rt 05/24 15:10 Order name: Lipase; Complete Time: 16:07 rt 05/24 12:25 Order name: XRAY Chest (1 view); Complete Time: 13:59 rt 05/24 15:10 Order name: CT Chest For PE Angio; Complete Time: 15:46 rt 05/24 12:25 Order name: EKG; Complete Time: 12:26 rt 05/24 15:10 Order name: EKG; Complete Time: 15:10 rt 05/24 12:25 Order name: Cardiac monitoring; Complete Time: 14:44 rt 05/24 12:25 Order name: EKG - Nurse/Tech; Complete Time: 12:59 rt 05/24 12:25 Order name: IV Saline Lock; Complete Time: 12:52 rt 05/24 12:25 Order name: Labs collected and sent; Complete Time: 12:52 rt 05/24 12:25 Order name: O2 Per Protocol; Complete Time: 13:56 rt 05/24 12:25 Order name: O2 Sat Monitoring; Complete Time: 14:44 rt 05/24 15:10 Order name: EKG - Nurse/Tech; Complete Time: 15:18 rt EC:02 Rate is 82 beats/min. Rhythm is regular, Normal Sinus Rhythm with No ectopy. QRS Napoleon rt is Normal. OH interval is normal. QRS interval is normal. QT interval is normal. No Q waves. Clinical impression: NSR w/ Non-specific ST/T Changes. 16:50 Rate is 81 beats/min. Rhythm is regular, Normal Sinus Rhythm with No ectopy. QRS [place] rt is Normal. OH interval is normal. QRS interval is normal. QT interval is normal. No Q waves. Clinical impression: NSR w/ Non-specific ST/T Changes and Abnormal EKG without significant change. Administered Medications: 12:28 Drug: [place] PO 10 mg-325 mg 1 tabs PO once Route: PO; iw 16:00 Follow up: Response: No adverse reaction iw 14:21 Drug: morphine IVP or IV 4 mg IVP once over 4 mins Route: IVP; Infused Over: 4 mins; iw Site: left antecubital; 16:07 Drug: fentaNYL (PF) IVP 50 mcg IVP once Route: IVP; Site: right antecubital; iw 16:40 Follow up: Response: No adverse reaction; Pain is decreased iw 16:08 Drug: Alum-Mag Hydroxide-Simeth PO Suspension (200 mg-200 mg-20 mg/5 mL) 30 ml PO once iw Route: PO; Disposition Summary: 05/24/23 16:25 Discharge Ordered Notes: Location: Home(05/24/23 16:25) rt Problem: an acute exacerbation(05/24/23 16:25) rt Symptoms: have improved(05/24/23 16:25) rt Condition: Stable(05/24/23 16:25) rt Diagnosis - Rheumatoid arthritis, unspecified(05/24/23 16:25) rt Followup: rt - With: Private Physician - When: 2 - 3 days - Reason: Forms: - Medication Reconciliation Form rt - Thank You Letter rt - Antibiotic Education rt - Prescription Opioid Use rt - Patient Portal Instructions rt - Leadership Thank You Letter rt Signatures: Dispatcher [employer] Gwendolyn Jane, RN RN iw Mario Reese MD MD rt Corrections: (The following items were deleted from the chart) :04 29:39 Home rt rt :04 29:39 an acute exacerbation rt rt :04 29:39 have improved rt rt : 14:39 Stable rt rt :04 29:39 Rheumatoid arthritis, unspecified rt rt
--- NOTE | 2023-05-24 14:40 | ER ---
Nurse's Notes [facility] Name: Lashon Baca Age: 58 yrs Sex: Female : 1965 Arrival Date: 05/24/2023 Time: 12:05 Bed DIS1 Private MD: Diagnosis: Rheumatoid arthritis, unspecified Presentation: 05/24 12:17 Chief complaint: Patient states: has fibromyalgia and RA, since Monday has been feeling iw sever pain in back and chest, tingling and burning sensation all over body and arms and my joints hurt , SOB started last night. Coronavirus screen: At this time, the client does not indicate any symptoms associated with coronavirus-19. Ebola Screen: Patient negative for fever greater than or equal to 101.5 degrees Fahrenheit, and additional compatible Ebola Virus Disease symptoms Patient denies exposure to infectious person. Patient denies travel to an Ebola-affected area in the 21 days before illness onset. No symptoms or risks identified at this time. Initial Sepsis Screen: Does the patient meet any 2 criteria? No. Patient's initial sepsis screen is negative. Does the patient have a suspected source of infection? No. Patient's initial sepsis screen is negative. Risk Assessment: Do you want to hurt yourself or someone else? Patient reports no desire to harm self or others. 12:17 Method Of Arrival: Ambulatory iw 12:17 Acuity: KENNETH 3 iw 14:51 Onset of symptoms is unknown. tm6 Triage Assessment: 14:50 General: Appears in no apparent distress. Behavior is calm, cooperative. Respiratory: tm6 Reports shortness of breath Onset: The symptoms/episode began/occurred at an unknown time. the patient has mild shortness of breath. Historical: - Allergies: 12:19 Cymbalta (rash); iw 12:19 Savella (rash); iw 12:19 tramadol (Itching); iw - PMHx: 12:19 Bipolar disorder; Diabetes - NIDDM; Diabetes Mellitus Type 2; Fibromyalgia; Silas's iw disease; Kidney stone; Rheumatoid Arthritis; Sleep Apnea; - PSHx: 12:19 section; L knee; L side of thyroid removed (Cancerous lumps); hysterectomy; R iw hip replacement; Cholecystectomy; - Immunization history:: Flu vaccine status is unknown. - Social history:: Smoking status: Reported history of juuling and/or vaping. - Family history:: not pertinent. Screenin:50 [facility] ED Fall Risk Assessment (Adult) History of falling in the last 3 months, tm6 including since admission No falls in past 3 months (0 pts). Abuse screen: Denies threats or abuse. Denies injuries from another. Nutritional screening: No deficits noted. Tuberculosis screening: No symptoms or risk factors identified. Assessment: 14:49 Pain:. tm6 14:50 Cardiovascular: Capillary refill < 3 seconds Patient's skin is warm and dry. Rhythm is tm6 regular. Respiratory: Airway is patent Respiratory effort is even, unlabored, Breath sounds are clear. 15:19 Reassessment: pt c/o epigastric pain that was not there before , pt placed in chair, iw reassessed by Dr. Reese, new orders placed, pt to CT, EKG complete. Vital Signs: 12:17 BP 125 / 77; Pulse 90; Resp 16; Temp 98.4; Pulse Ox 98% on R/A; Weight 84.37 kg; Height iw 5 ft. 5 in. ; Pain 9/10; 14:44 BP 149 / 99; Pulse 69; Pulse Ox 96% ; tm6 12:17 Body Mass Index 30.95 (84.37 kg, 165.1 cm) iw 12:17 Pain Scale: Adult iw ED Course: 12:09 Patient arrived in ED. gm2 12:09 Mario Reese MD is Attending Physician. rt 12:19 Triage completed. iw 12:19 Arm band placed on. iw 12:52 Basic Metabolic Panel Sent. bc6 12:52 CBC with Diff Sent. bc6 12:52 LFT's Sent. bc6 12:52 Magnesium Sent. bc6 12:52 Troponin HS Sent. bc6 12:52 Inserted saline lock: 20 gauge in left antecubital area, using aseptic technique. Blood bc6 collected. 12:56 Radiology exam delayed due to CALLED OUT PT'S NAME IN ER LOBBY TWICE AND PT NO WHERE TO rs4 BE FOUND. 13:51 XRAY Chest (1 view) In Process Unspecified. EDMS 13:56 Gwendolyn Blankenship, RN is Primary Nurse. iw 14:51 Patient has correct armband on for positive identification. Bed in low position. Call tm6 light in reach. Side rails up X2. Provided Education on: medications. 14:51 No provider procedures requiring assistance completed. IV discontinued, intact, tm6 bleeding controlled, No redness/swelling at site. 15:26 CT Chest For PE Angio In Process Unspecified. EDMS 15:32 Inserted saline lock: 20 gauge in right antecubital area, using aseptic technique. iw Blood collected. Administered Medications: 12:28 Drug: [place] PO 10 mg-325 mg 1 tabs PO once Route: PO; iw 16:00 Follow up: Response: No adverse reaction iw 14:21 Drug: morphine IVP or IV 4 mg IVP once over 4 mins Route: IVP; Infused Over: 4 mins; iw Site: left antecubital; 16:07 Drug: fentaNYL (PF) IVP 50 mcg IVP once Route: IVP; Site: right antecubital; iw 16:40 Follow up: Response: No adverse reaction; Pain is decreased iw 16:08 Drug: Alum-Mag Hydroxide-Simeth PO Suspension (200 mg-200 mg-20 mg/5 mL) 30 ml PO once iw Route: PO; Medication: 14:51 VIS not applicable for this client. tm6 Outcome: 14:39 Discharge ordered by MD. rt 14:51 Discharged to home ambulatory, tm6 14:51 Condition: stable 14:51 Discharge instructions given to patient, Instructed on discharge instructions, follow up and referral plans. medication usage, Demonstrated understanding of instructions, follow-up care, medications, Prescriptions given X 1, 14:52 Patient left the ED. tm6 16:25 Discharge ordered by MD. rt 16:33 Patient left the ED. iw Signatures: Dispatcher [employer] EDMS Gwendolyn Blankenship, RN RN iw Edie Freitas rs4 Mario Reese MD MD rt Penelope Brink 6 Celia Fontana gm2 Rhianna De Jesus RN RN tm6
[2023-05-24 15:05] VITALS: TEMP 98.4
[2023-05-24 15:08] VITALS: BP 149/99; O2SAT 96
--- NOTE | 2023-05-24 15:43 | RAD REPORT ---
EXAM DESCRIPTION: CT - Chest For Pe Angio - 05/24/2023 3:25 pm CLINICAL HISTORY: Chest pain. CHEST PAIN COMPARISON: Chest For Pe Angio dated 02/02/2022 TECHNIQUE: CT angiogram of the pulmonary arteries was performed with MIP. All CT scans are performed using dose optimization technique as appropriate and may include automated exposure control or mA/KV adjustment according to patient size. FINDINGS: No evidence of pulmonary thromboembolism. No acute aortic finding demonstrated. There is subtle ground-glass opacity in both lung bases with mild alveolar infiltrate in the left upp er lobe anteriorly. Mildly prominent 9 mm AP window lymph node. No significant pericardial or pleural fluid. No concerning bony finding. IMPRESSION: No evidence of pulmonary thromboembolism. Mild nonspecific ground-glass opacities seen with mild alveolar appearance in the left upper lobe. Th is may represent mild alveolitis.
[2023-05-24 16:02] LABS: Troponin High Sensitivity 3.7 pg/mL (<58.9)
[2023-05-24] MEDS ORDERED: MAGNES/ALUMIN/SIMET 30ML UCUP ONE (16:13)
[2023-05-24] MEDS ORDERED: FENTANYL CITR 100 MCG/2 ML ONE (16:14)
--- NOTE | 2023-05-27 14:20 | EKG ---
Test Date: 2023-05-24 Test Time: 15:16:43 Lithographing Machine Operator: BRET MEASUREMENT RESULTS: Intervals: Rate: 81 CA: 178 QRSD: 76 QT: 372 QTc: 432 [place]: P: 73 CA: 178 QRS: 57 T: 59 INTERPRETIVE STATEMENTS: Normal sinus rhythm Low voltage QRS Cannot rule out Anterior infarct, age undetermined Abnormal ECG Compared to ECG 05/24/2023 12:57:33 Myocardial infarct finding now present T-wave abnormality no longer present Electronically Signed On 05-27-23 14:10:20 FURNITURE MOVER by Romulo Fisher
--- NOTE | 2023-05-27 14:21 | EKG ---
Test Date: 2023-05-24 Test Time: 12:57:33 Saw Grinder: BRANNON MEASUREMENT RESULTS: Intervals: Rate: 82 WA: 180 QRSD: 72 QT: 348 QTc: 406 [place]: P: 57 WA: 180 QRS: 48 T: 45 INTERPRETIVE STATEMENTS: Normal sinus rhythm Low voltage QRS Nonspecific T wave abnormality Abnormal ECG Compared to ECG 07/07/2022 04:45:07 Low QRS voltage now present T-wave abnormality still present Electronically Signed On 05-27-23 14:11:00 ROUGH AND TRUING MACHINE OPERATOR by Romulo Fisher
== END 2023-05-24 16:33 | disposition home or self-care (01) ==
LOC: ER 12:05
DX: M06.9 Rheumatoid arthritis, unspecified (principal); M79.7 Fibromyalgia; E11.9 Type 2 diabetes mellitus without complications; Z87.442 Personal history of urinary calculi; Z88.5 Allergy status to narcotic agent; Z88.8 Allergy status to other drugs, medicaments and biological substances
CPT/HCPCS: 93005 ×2; 85025; 80048; 36415; 83735; 80076; 84484 ×2; 83690; 71275; 71045; 99284; Q9967; J3010

== ENCOUNTER → 2023-07-27 | Emergency (ER) | payer OTHER ==
--- OUTSIDE RECORDS SUMMARY | 2023-07-27 17:43 | XMS REPORT | Continuity of Care Document ---
Author Name Unknown Address [address] [facility] [address] [place] [address] [facility] thconnect Address [address] [facility] [address] [place] [address] Care Team Providers Care Biller Name Role Phone JANEL SNOW Primary Care Physician Unavailable Franko Thakur Attending Clinician Unavailable Corwin Claros Attending Clinician Unav ailCorwin Bey Attending Clinician Unav ailable JANEL SNOW Attending Clinician Miriam vailaRIVKA Deng Attending Clinician RIVKA Thurman Attending Clinician MANISHA Ordoñez Attending Clinician Unavailable MANISHA NORRIS Attending Clinician Unavailable BillyMrs Amanda go Attending Clinician Unavailab scarlet Snow MD, Janel Draper Attending Clinician FRANKO THAKUR Attending Clinician Bobo voss Doctor Unassigned, [place] Attending Clinician U sabina Merino David MARI Attending Clinician [phone] Pcp-Lab Attending Clinician Unavailable MANISHA NORRIS Attending Clinician Unavailable SHAILNI ALLEN Attending Clinician UnavailFranko David MD Attending Clinician + [phone] Rosales Chiu PA-C Attending Clinician [phone] ROSALES CHIU Attending Clinician Unavailable Lab, Ang - Db Attending Clinician Unavailable Umberto Saul MD Attending Clinician [phone] BABITA SALDANA Attending Clinician Unavailable BABITA SALDANA Attending Clinician Unavailable Jeane Pruett Attending Clinician [phone] LICO WHITE Attending Clinician Unavailable LICO WHITE Attending Clinician Unavailable SUNIL NAQVI Attending Clinician Unavailable Leela Bonilla MD Attending Clinician + [phone] Guerita Alonso MD Attending Clinician [phone] Dixie Bhardwaj Attending Clinician [phone] DIXIE ALANIS Attending Clinician Unavailable Kasandra Portillo RN Attending Clinician Unavailable UMBERTO SAUL Attending Clinician UnavailDinh Nicholson CRNA Attending Clinician [phone] Heriberto Vyas MD Attending Clinicia n Only, Adc Test Attending Clinician Unavailable Pob, Adc Lab Main Attending Clinician UnavailDonna Espinal PT Attending Clinician Un available Buddy Mujica MD Attending Clinician [phone] BUDDY MUJICA Attending Clinician Unavailable Faith Hall MA Attending Clinician Unavail able GUERITA ALONSO Attending Clinician Unavailable LEELA BONILLA Attending Clinician Unavaila LEELA Madison Attending Clinician Unavaila yesenia GUEVARA, Teresa Attending Clinician Unava ilable 1, Ad[facility] Sleep Lab Bed Attending Clinician Unavail Anderson Benavides MD Attending Clinician [phone] GARLAND CURRIE Attending Clinician Un available Andry Dinero Attending Clinician Unavailab Andry Ro Attending Clinician Unavailab Corwin Heard Admitting Clinician Unav MANISHA Mccabe Admitting Clinician Unavailable UMEBRTO SAUL Admitting Clinician Unavailfawad Saul MD, Umberto Thomas Admitting Clinician BUDDY MUJICA Admitting Clinician Unavailable Payers Payer Name Policy Type Policy Number Effective Date Expirati on Date Source [facility] DUAL COMP HMO D SNP [id number] 2023 00:00:00 [place] [id number] 2022 00:00:00 Problems Condition Name Condition Details Condition Category Status Onset Date Resolution Date Last Treatment Date Treating Clinician Comments Source Hip osteoarthr itis Hip osteoarthr itis Disease Active 7-18 00:00: 00 [facility] Obesity (BMI 30-39.9) Obesity (BMI 30-39.9) Disease Active 7-15 00:00: 00 [facility] Primary osteoarthr itis of right hip Primary osteoarthr itis of right hip Disease Active 6-30 00:00: 00 Overview: Formattin g of this note might be different from the original. Added automatic ally from request for surgery [id number] [facility] Type 2 diabetes mellitus without complicati on, without long-term current use of insulin Type 2 diabetes mellitus without complicati on, without long-term current use of insulin Disease Active 03-18 00:00: 00 [facility] Thyroid nodule Thyroid nodule Disease Active 03-18 00:00: 00 [facility] Dyslipidem ia Dyslipidem ia Disease Active 03-18 00:00: 00 [facility] Carpal tunnel syndrome of right wrist Carpal tunnel syndrome of right wrist Disease Active 24 00:00: 00 [facility] Ganglion cyst Ganglion cyst Disease Active 24 00:00: 00 [facility] Tenosynovi tis of right hand Tenosynovi tis of right hand Disease Active 2017-07 2-15 00:00: 00 [facility] 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 Disease Active 2017-07 00:00: 00 [facility] Sleep apnea Sleep apnea Disease Active 2017-07 00:00: 00 [facility] Vitamin D deficiency Vitamin D deficiency Disease Active 2017-07 00:00: 00 [facility] Depressed bipolar disorder Depressed bipolar disorder Disease Active 03-04 00:00: 00 [facility] Fibromyalg ia Fibromyalg ia Disease Active 03-04 00:00: 00 [facility] Silas thyroiditi s, fibrous variant Silas thyroiditi s, fibrous variant Disease Active 03-04 00:00: 00 [facility] Rheumatoid arthritis Rheumatoid arthritis Disease Active 03-04 00:00: 00 [facility] Allergies, Adverse Reactions, Alerts Allergy Name Allergy Type Status Severity Reaction(s) Onset Date Inactive Date Treating Clinician Comments Source Tramadol Propensi ty to adverse reaction s Active Itching 0 01-05 00:00: 00 [facility] TRAMADOL DRUG INGREDI Active ITCHING 0 01-05 00:00: 00 [facility] EDOXABAN TOSYLATE DRUG INGREDI Active High Rash 2020-0 -20 00:00: 00 [facility] DULOXETI NE HCL DRUG INGREDI Active Med Rash 2020-0 -20 00:00: 00 [facility] MILNACIP RAN HCL DRUG INGREDI Active Med Other-Cmnt 2020-0 -20 00:00: 00 [facility] Duloxeti ne Hcl Drug Allergy Active Rash 2020-0 7-20 00:00: 00 [facility] Edoxaban Tosylate Drug Allergy Active Rash 02-02 00:00: 00 [facility] Milnacip ran Hcl Drug Allergy Active Other - See comments 02-02 00:00: 00 [facility] lactose DA Active [place] 01-31 00:00: 00 [facility] duloxeti ne DA Active [place] 01-31 00:00: 00 [facility] Drug Active Medical [facility] Drug Active Medical [facility] Drug Active Medical [facility] Drug Active Medical [facility] Drug Active Medical [facility] Drug Active Medical [facility] Social History Social Habit Start Date Stop Date Quantity Comments Source Gender identity [facility] Alcohol intake 2023-06-14 00:00:00 2023-06-14 00:00:00 Current drinker of alcohol (finding) [facility] Exposure to SARS-CoV-2 (event) 2022-12-29 00:00:00 2023-01-08 11:26:00 Not sure [facility] History of Social function 2022-12-08 00:00:00 2022-12-08 00:00:00 [facility] History SDOH Alcohol Frequency 2022-12-06 00:00:00 2022-12-06 00:00:00 2 [facility] History SDOH Alcohol Std Drinks 2022-12-06 00:00:00 2022-12-06 00:00:00 1 [facility] History SDOH Alcohol Binge 2022-12-06 00:00:00 2022-12-06 00:00:00 1 [facility] History SDOH Social Connections Phone 2022-12-06 00:00:00 2022-12-06 00:00:00 5 [facility] History SDOH Social Connections Get Together 2022-12-06 00:00:00 2022-12-06 00:00:00 5 [facility] History SDOH Social Connections [facility] 2022-12-06 00:00:00 2022-12-06 00:00:00 98 [facility] History SDOH Social Connections Membership 2022-12-06 00:00:00 2022-12-06 00:00:00 1 [facility] History SDOH Social Connections Meetings 2022-12-06 00:00:00 2022-12-06 00:00:00 3 [facility] History SDOH Social Connections Living 2022-12-06 00:00:00 2022-12-06 00:00:00 5 [facility] History SDOH Physical Activity DPW 2022-12-06 00:00:00 2022-12-06 00:00:00 0 [facility] History SDOH Physical Activity MPS 2022-12-06 00:00:00 2022-12-06 00:00:00 0 [facility] History SDOH Stress 2022-12-06 00:00:00 2022-12-06 00:00:00 3 [facility] History SDOH Financial 2022-12-06 00:00:00 2022-12-06 00:00:00 4 [facility] History SDOH Transport Med 2022-12-06 00:00:00 2022-12-06 00:00:00 2 [facility] History SDOH Transport Non-Med 2022-12-06 00:00:00 2022-12-06 00:00:00 2 [facility] History SDOH Housing Unable to Pay 2022-12-06 00:00:00 2022-12-06 00:00:00 2 [facility] History SDOH Housing Places Lived 2022-12-06 00:00:00 2022-12-06 00:00:00 1 [facility] History SDOH Housing Homeless Last Year 2022-12-06 00:00:00 2022-12-06 00:00:00 2 [facility] Tobacco Comment 2022-01-25 00:00:00 2022-01-25 00:00:00 occasional [facility] Cigarettes smoked current (pack per day) - Reported 2022-01-25 00:00:00 2022-01-25 00:00:00 [facility] Cigarette pack-years 2022-01-25 00:00:00 2022-01-25 00:00:00 [facility] Tobacco use and exposure 2022-01-25 00:00:00 2022-01-25 00:00:00 User of smokeless tobacco [facility] Alcohol Comment 2021-02-02 00:00:00 2021-02-02 00:00:00 socially [facility] History of tobacco use 1993-02-02 00:00:00 Cigarette Smoker [facility] Sex Ass[birth year] At 1965 00:00:00 1965 00:00:00 [facility] Smoking Status Start Date Stop Date Source Ex-smoker 2022-01-25 00:00:00 2022-01-25 [facility] Medications Ordered Medication Name Filled Medication Name Start Date Stop Date Current Medication? Ordering Clinician Indication Dosage Frequency Signature (SIG) Comments Components Source gabapentin 300 mg capsule 2022-07 00:00: 00 Yes [id number] 600mg Take 2 capsules by mouth in the morning and 2 capsules at noon and 2 capsules in the evening. [facility] adalimumab (HUMIRA,CF, PEN) 40 mg/0.4 mL injection 2022-07 00:00: 00 Yes [id number] 40mg inject 1 Pen under the skin every 14 (fourteen) days. [facility] gabapentin 300 mg capsule 2022-07 00:00: 00 Yes [id number] 600mg Take 2 capsules by mouth in the morning and 2 capsules at noon and 2 capsules in the evening. [facility] doxycycline hyclate 100 mg capsule 2022-07 00:00: 00 06-22 05:59 :00 Yes [id number] 100mg Take 1 capsule by mouth every 12 (twelve) hours for 7 days. [facility] doxycycline hyclate 100 mg capsule 2022-07 00:00: 00 06-22 05:59 :00 Yes [id number] 100mg Take 1 capsule by mouth every 12 (twelve) hours for 7 days. [facility] doxycycline hyclate 100 mg capsule 2022-07 00:00: 00 06-22 05:59 :00 Yes [id number] 100mg Take 1 capsule by mouth every 12 (twelve) hours for 7 days. [facility] hydroxychlo roquine (PLAQUENIL) 200 mg tablet 2022-07 00:00: 00 Yes [id number] 400mg Take 2 tablets by mouth in the morning. [facility] hydroxychlo roquine (PLAQUENIL) 200 mg tablet 2022-07 00:00: 00 Yes [id number] 400mg Take 2 tablets by mouth in the morning. [facility] hydroxychlo roquine (PLAQUENIL) 200 mg tablet 2022-07 00:00: 00 Yes [id number] 400mg Take 2 tablets by mouth in the morning. [facility] hydroxychlo roquine (PLAQUENIL) 200 mg tablet 2022-07 00:00: 00 Yes [id number] 400mg Take 2 tablets by mouth in the morning. [facility] hydroxychlo roquine (PLAQUENIL) 200 mg tablet 2022-07 00:00: 00 Yes [id number] 400mg Take 2 tablets by mouth in the morning. [facility] hydroxychlo roquine (PLAQUENIL) 200 mg tablet 2022-07 00:00: 00 Yes [id number] 400mg Take 2 tablets by mouth in the morning. [facility] hydroxychlo roquine (PLAQUENIL) 200 mg tablet 2022-07 00:00: 00 Yes [id number] 400mg Take 2 tablets by mouth in the morning. [facility] SERTraline 50 mg tablet 2022-07 00:00: 00 Yes 50mg Take 1 tablet by mouth at bedtime. [facility] SERTraline 50 mg tablet 2022-07 00:00: 00 Yes 50mg Take 1 tablet by mouth at bedtime. [facility] SERTraline 50 mg tablet 2022-07 00:00: 00 Yes 50mg Take 1 tablet by mouth at bedtime. [facility] SERTraline 50 mg tablet 2022-07 00:00: 00 Yes 50mg Take 1 tablet by mouth at bedtime. [facility] SERTraline 50 mg tablet 2022-07 00:00: 00 Yes 50mg Take 1 tablet by mouth at bedtime. [facility] SERTraline 50 mg tablet 2022-07 00:00: 00 Yes 50mg Take 1 tablet by mouth at bedtime. [facility] minoxidiL 2.5 mg tablet 2022-07 0 00:00: 00 Yes 2.5mg Take 1 tablet by mouth in the morning. [facility] minoxidiL 2.5 mg tablet 2022-07 0 00:00: 00 Yes 2.5mg Take 1 tablet by mouth in the morning. [facility] minoxidiL 2.5 mg tablet 2022-07 0 00:00: 00 Yes 2.5mg Take 1 tablet by mouth in the morning. [facility] minoxidiL 2.5 mg tablet 2022-07 0 00:00: 00 Yes 2.5mg Take 1 tablet by mouth in the morning. [facility] minoxidiL 2.5 mg tablet 2022-07 0 00:00: 00 Yes 2.5mg Take 1 tablet by mouth in the morning. [facility] minoxidiL 2.5 mg tablet 2022-07 0 00:00: 00 Yes 2.5mg Take 1 tablet by mouth in the morning. [facility] OZEMPIC 1 mg/dose (4 mg/3 mL) PnIj 3-0 03-24 00:00: 00 Yes 1mg inject 1 mg under the skin weekly. [facility] OZEMPIC 1 mg/dose (4 mg/3 mL) PnIj 3-0 03-24 00:00: 00 Yes 1mg inject 1 mg under the skin weekly. [facility] OZEMPIC 1 mg/dose (4 mg/3 mL) PnIj 3-0 03-24 00:00: 00 Yes 1mg inject 1 mg under the skin weekly. [facility] OZEMPIC 1 mg/dose (4 mg/3 mL) PnIj 2022-0 03-24 00:00: 00 Yes 1mg inject 1 mg under the skin weekly. [facility] OZEMPIC 1 mg/dose (4 mg/3 mL) PnIj 0 03-24 00:00: 00 Yes 1mg inject 1 mg under the skin weekly. [facility] OZEMPIC 1 mg/dose (4 mg/3 mL) PnIj 0 03-24 00:00: 00 Yes 1mg inject 1 mg under the skin weekly. [facility] GABAPENTIN 300 mg capsule 0 03-23 00:00: 00 Yes [id number] TAKE 1 CAPSULE BY MOUTH IN THE MORNING AND AT NOON AND IN THE EVENING [facility] GABAPENTIN 300 mg capsule 0 03-23 00:00: 00 Yes [id number] TAKE 1 CAPSULE BY MOUTH IN THE MORNING AND AT NOON AND IN THE EVENING [facility] GABAPENTIN 300 mg capsule 2022-0 03-23 00:00: 00 Yes [id number] TAKE 1 CAPSULE BY MOUTH IN THE MORNING AND AT NOON AND IN THE EVENING [facility] adalimumab (HUMIRA,CF, PEN) 40 mg/0.4 mL injection 0 03-23 00:00: 00 Yes [id number] 40mg inject 1 Pen under the skin every 14 (fourteen) days. [facility] GABAPENTIN 300 mg capsule 2022-03-23 00:00: 00 Yes [id number] TAKE 1 CAPSULE BY MOUTH IN THE MORNING AND AT NOON AND IN THE EVENING [facility] adalimumab (HUMIRA,CF, PEN) 40 mg/0.4 mL injection 2022-0 03-23 00:00: 00 Yes [id number] 40mg inject 1 Pen under the skin every 14 (fourteen) days. [facility] GABAPENTIN 300 mg capsule 2022-0 03-23 00:00: 00 Yes [id number] TAKE 1 CAPSULE BY MOUTH IN THE MORNING AND AT NOON AND IN THE EVENING [facility] adalimumab (HUMIRA,CF, PEN) 40 mg/0.4 mL injection 2022-0 03-23 00:00: 00 Yes [id number] 40mg inject 1 Pen under the skin every 14 (fourteen) days. [facility] GABAPENTIN 300 mg capsule 2022-0 -07 00:00: 00 Yes [id number] TAKE 1 CAPSULE BY MOUTH IN THE MORNING AND AT NOON AND IN THE EVENING [facility] adalimumab (HUMIRA,CF, PEN) 40 mg/0.4 mL injection 3-0 - 00:00: 00 Yes [id number] 40mg inject 1 Pen under the skin every 14 (fourteen) days. [facility] GABAPENTIN 300 mg capsule 2022-0 03-23 00:00: 00 Yes [id number] TAKE 1 CAPSULE BY MOUTH IN THE MORNING AND AT NOON AND IN THE EVENING [facility] adalimumab (HUMIRA,CF, PEN) 40 mg/0.4 mL injection 2022-0 - 00:00: 00 Yes [id number] 40mg inject 1 Pen under the skin every 14 (fourteen) days. [facility] GABAPENTIN 300 mg capsule 2022-0 03-23 00:00: 00 Yes [id number] TAKE 1 CAPSULE BY MOUTH IN THE MORNING AND AT NOON AND IN THE EVENING [facility] adalimumab (HUMIRA,CF, PEN) 40 mg/0.4 mL injection 2022-0 03-23 00:00: 00 Yes [id number] 40mg inject 1 Pen under the skin every 14 (fourteen) days. [facility] GABAPENTIN 300 mg capsule 2022-0 - 00:00: 00 Yes [id number] TAKE 1 CAPSULE BY MOUTH IN THE MORNING AND AT NOON AND IN THE EVENING [facility] adalimumab (HUMIRA,CF, PEN) 40 mg/0.4 mL injection 2022-0 03-23 00:00: 00 Yes [id number] 40mg inject 1 Pen under the skin every 14 (fourteen) days. [facility] GABAPENTIN 300 mg capsule 2022-0 - 00:00: 00 Yes [id number] TAKE 1 CAPSULE BY MOUTH IN THE MORNING AND AT NOON AND IN THE EVENING [facility] adalimumab (HUMIRA,CF, PEN) 40 mg/0.4 mL injection 3-0 9-07 00:00: 00 Yes [id number] 40mg inject 1 Pen under the skin every 14 (fourteen) days. [facility] GABAPENTIN 300 mg capsule 2022-0 03-23 00:00: 00 Yes [id number] TAKE 1 CAPSULE BY MOUTH IN THE MORNING AND AT NOON AND IN THE EVENING [facility] adalimumab (HUMIRA,CF, PEN) 40 mg/0.4 mL injection 2022-0 - 00:00: 00 Yes [id number] 40mg inject 1 Pen under the skin every 14 (fourteen) days. [facility] GABAPENTIN 300 mg capsule 2022-0 03-23 00:00: 00 Yes [id number] TAKE 1 CAPSULE BY MOUTH IN THE MORNING AND AT NOON AND IN THE EVENING [facility] adalimumab (HUMIRA,CF, PEN) 40 mg/0.4 mL injection 2022-0 03-23 00:00: 00 Yes [id number] 40mg inject 1 Pen under the skin every 14 (fourteen) days. [facility] GABAPENTIN 300 mg capsule 2022-0 03-23 00:00: 00 Yes [id number] TAKE 1 CAPSULE BY MOUTH IN THE MORNING AND AT NOON AND IN THE EVENING [facility] adalimumab (HUMIRA,CF, PEN) 40 mg/0.4 mL injection 2022-0 03-23 00:00: 00 Yes [id number] 40mg inject 1 Pen under the skin every 14 (fourteen) days. [facility] GABAPENTIN 300 mg capsule 2022-0 03-23 00:00: 00 Yes [id number] TAKE 1 CAPSULE BY MOUTH IN THE MORNING AND AT NOON AND IN THE EVENING [facility] adalimumab (HUMIRA,CF, PEN) 40 mg/0.4 mL injection 2022-0 03-23 00:00: 00 Yes [id number] 40mg inject 1 Pen under the skin every 14 (fourteen) days. [facility] GABAPENTIN 300 mg capsule 2022-0 03-23 00:00: 00 Yes [id number] TAKE 1 CAPSULE BY MOUTH IN THE MORNING AND AT NOON AND IN THE EVENING [facility] adalimumab (HUMIRA,CF, PEN) 40 mg/0.4 mL injection 3-0 - 00:00: 00 Yes [id number] 40mg inject 1 Pen under the skin every 14 (fourteen) days. [facility] GABAPENTIN 300 mg capsule 3-0 03-23 00:00: 00 Yes [id number] TAKE 1 CAPSULE BY MOUTH IN THE MORNING AND AT NOON AND IN THE EVENING [facility] adalimumab (HUMIRA,CF, PEN) 40 mg/0.4 mL injection 2022-0 - 00:00: 00 Yes [id number] 40mg inject 1 Pen under the skin every 14 (fourteen) days. [facility] GABAPENTIN 300 mg capsule 2022-0 03-23 00:00: 00 Yes [id number] TAKE 1 CAPSULE BY MOUTH IN THE MORNING AND AT NOON AND IN THE EVENING [facility] adalimumab (HUMIRA,CF, PEN) 40 mg/0.4 mL injection 2022-0 - 00:00: 00 Yes [id number] 40mg inject 1 Pen under the skin every 14 (fourteen) days. [facility] GABAPENTIN 300 mg capsule 2022-0 03-23 00:00: 00 Yes [id number] TAKE 1 CAPSULE BY MOUTH IN THE MORNING AND AT NOON AND IN THE EVENING [facility] adalimumab (HUMIRA,CF, PEN) 40 mg/0.4 mL injection 2022-0 03-23 00:00: 00 Yes [id number] 40mg inject 1 Pen under the skin every 14 (fourteen) days. [facility] GABAPENTIN 300 mg capsule 2022-0 03-23 00:00: 00 Yes [id number] TAKE 1 CAPSULE BY MOUTH IN THE MORNING AND AT NOON AND IN THE EVENING [facility] adalimumab (HUMIRA,CF, PEN) 40 mg/0.4 mL injection 3-0 - 00:00: 00 Yes [id number] 40mg inject 1 Pen under the skin every 14 (fourteen) days. [facility] GABAPENTIN 300 mg capsule 3-0 - 00:00: 00 Yes [id number] TAKE 1 CAPSULE BY MOUTH IN THE MORNING AND AT NOON AND IN THE EVENING [facility] adalimumab (HUMIRA,CF, PEN) 40 mg/0.4 mL injection 3-0 - 00:00: 00 Yes [id number] 40mg inject 1 Pen under the skin every 14 (fourteen) days. [facility] GABAPENTIN 300 mg capsule 03-23 00:00: 00 Yes [id number] TAKE 1 CAPSULE BY MOUTH IN THE MORNING AND AT NOON AND IN THE EVENING [facility] adalimumab (HUMIRA,CF, PEN) 40 mg/0.4 mL injection 03-23 00:00: 00 Yes [id number] 40mg inject 1 Pen under the skin every 14 (fourteen) days. [facility] GABAPENTIN 300 mg capsule 03-23 00:00: 00 Yes [id number] TAKE 1 CAPSULE BY MOUTH IN THE MORNING AND AT NOON AND IN THE EVENING [facility] adalimumab (HUMIRA,CF, PEN) 40 mg/0.4 mL injection 03-23 00:00: 00 Yes [id number] 40mg inject 1 Pen under the skin every 14 (fourteen) days. [facility] GABAPENTIN 300 mg capsule 03-23 00:00: 00 07-07 00:00 :00 No [id number] TAKE 1 CAPSULE BY MOUTH IN THE MORNING AND AT NOON AND IN THE EVENING [facility] GABAPENTIN 300 mg capsule 03-23 00:00: 00 07-07 00:00 :00 No [id number] TAKE 1 CAPSULE BY MOUTH IN THE MORNING AND AT NOON AND IN THE EVENING [facility] adalimumab (HUMIRA,CF, PEN) 40 mg/0.4 mL injection 03-23 00:00: 00 07-04 00:00 :00 No [id number] 40mg inject 1 Pen under the skin every 14 (fourteen) days. [facility] adalimumab (HUMIRA,CF, PEN) 40 mg/0.4 mL injection 03-23 00:00: 00 07-04 00:00 :00 No [id number] 40mg inject 1 Pen under the skin every 14 (fourteen) days. [facility] adalimumab (HUMIRA,CF, PEN) 40 mg/0.4 mL injection 03-23 00:00: 00 07-04 00:00 :00 No [id number] 40mg inject 1 Pen under the skin every 14 (fourteen) days. [facility] SERTraline 100 mg tablet 0 01-09 00:00: 00 Yes [id number] 100mg Take 1 tablet by mouth in the morning. [facility] SERTraline 100 mg tablet 0 01-09 00:00: 00 Yes [id number] 100mg Take 1 tablet by mouth in the morning. [facility] SERTraline 100 mg tablet 0 01-09 00:00: 00 Yes [id number] 100mg Take 1 tablet by mouth in the morning. [facility] SERTraline 100 mg tablet 0 01-09 00:00: 00 Yes [id number] 100mg Take 1 tablet by mouth in the morning. [facility] SERTraline 100 mg tablet 0 01-09 00:00: 00 Yes [id number] 100mg Take 1 tablet by mouth in the morning. [facility] SERTraline 100 mg tablet 0 01-09 00:00: 00 Yes [id number] 100mg Take 1 tablet by mouth in the morning. [facility] SERTraline 100 mg tablet 0 01-09 00:00: 00 Yes [id number] 100mg Take 1 tablet by mouth in the morning. [facility] SERTraline 100 mg tablet 0 01-09 00:00: 00 Yes [id number] 100mg Take 1 tablet by mouth in the morning. [facility] SERTraline 100 mg tablet 2022-0 01-09 00:00: 00 Yes [id number] 100mg Take 1 tablet by mouth in the morning. [facility] SERTraline 100 mg tablet 2022-0 01-09 00:00: 00 Yes [id number] 100mg Take 1 tablet by mouth in the morning. [facility] SERTraline 100 mg tablet 2022-0 01-09 00:00: 00 Yes [id number] 100mg Take 1 tablet by mouth in the morning. [facility] SERTraline 100 mg tablet 0 01-09 00:00: 00 Yes [id number] 100mg Take 1 tablet by mouth in the morning. [facility] SERTraline 100 mg tablet 2022-0 01-09 00:00: 00 Yes [id number] 100mg Take 1 tablet by mouth in the morning. [facility] SERTraline 100 mg tablet 2022-0 01-09 00:00: 00 Yes [id number] 100mg Take 1 tablet by mouth in the morning. [facility] SERTraline 100 mg tablet 2022-0 01-09 00:00: 00 Yes [id number] 100mg Take 1 tablet by mouth in the morning. [facility] SERTraline 100 mg tablet 2022-0 01-09 00:00: 00 Yes [id number] 100mg Take 1 tablet by mouth in the morning. [facility] SERTraline 100 mg tablet 2022-0 01-09 00:00: 00 Yes [id number] 100mg Take 1 tablet by mouth in the morning. [facility] SERTraline 100 mg tablet 2022-0 01-09 00:00: 00 Yes [id number] 100mg Take 1 tablet by mouth in the morning. [facility] SERTraline 100 mg tablet 2022-0 01-09 00:00: 00 Yes [id number] 100mg Take 1 tablet by mouth in the morning. [facility] SERTraline 100 mg tablet 2022-0 01-09 00:00: 00 Yes [id number] 100mg Take 1 tablet by mouth in the morning. [facility] SERTraline 100 mg tablet 3-0 01-09 00:00: 00 Yes [id number] 100mg Take 1 tablet by mouth in the morning. [facility] SERTraline 100 mg tablet 3-0 01-09 00:00: 00 Yes [id number] 100mg Take 1 tablet by mouth in the morning. [facility] SERTraline 100 mg tablet 3-0 01-09 00:00: 00 Yes [id number] 100mg Take 1 tablet by mouth in the morning. [facility] SERTraline 100 mg tablet 3-0 01-09 00:00: 00 Yes [id number] 100mg Take 1 tablet by mouth in the morning. [facility] SERTraline 100 mg tablet 01-09 00:00: 00 06-14 00:00 :00 No [id number] 100mg Take 1 tablet by mouth in the morning. [facility] SERTraline 100 mg tablet 01-09 00:00: 00 06-14 00:00 :00 No [id number] 100mg Take 1 tablet by mouth in the morning. [facility] icosapent ethyL (VASCEPA) 1 gram capsule 01-06 00:00: 00 Yes [facility] levothyroxi ne 75 mcg tablet 01-06 00:00: 00 Yes [facility] icosapent ethyL (VASCEPA) 1 gram capsule 0 01-06 00:00: 00 Yes [facility] levothyroxi ne 75 mcg tablet 0 01-06 00:00: 00 Yes [facility] icosapent ethyL (VASCEPA) 1 gram capsule 01-06 00:00: 00 Yes [facility] levothyroxi ne 75 mcg tablet 0 01-06 00:00: 00 Yes [facility] icosapent ethyL (VASCEPA) 1 gram capsule 01-06 00:00: 00 Yes [facility] levothyroxi ne 75 mcg tablet 0 01-06 00:00: 00 Yes [facility] icosapent ethyL (VASCEPA) 1 gram capsule 01-06 00:00: 00 Yes [facility] levothyroxi ne 75 mcg tablet 01-06 00:00: 00 Yes [facility] icosapent ethyL (VASCEPA) 1 gram capsule 0 01-06 00:00: 00 Yes [facility] levothyroxi ne 75 mcg tablet 0 01-06 00:00: 00 Yes [facility] icosapent ethyL (VASCEPA) 1 gram capsule 01-06 00:00: 00 Yes [facility] levothyroxi ne 75 mcg tablet 01-06 00:00: 00 Yes [facility] icosapent ethyL (VASCEPA) 1 gram capsule 01-06 00:00: 00 Yes [facility] levothyroxi ne 75 mcg tablet 01-06 00:00: 00 Yes [facility] icosapent ethyL (VASCEPA) 1 gram capsule 01-06 00:00: 00 Yes [facility] levothyroxi ne 75 mcg tablet 01-06 00:00: 00 Yes [facility] icosapent ethyL (VASCEPA) 1 gram capsule 01-06 00:00: 00 Yes [facility] levothyroxi ne 75 mcg tablet 01-06 00:00: 00 Yes [facility] icosapent ethyL (VASCEPA) 1 gram capsule 01-06 00:00: 00 Yes [facility] levothyroxi ne 75 mcg tablet 01-06 00:00: 00 Yes [facility] icosapent ethyL (VASCEPA) 1 gram capsule 01-06 00:00: 00 Yes [facility] levothyroxi ne 75 mcg tablet 01-06 00:00: 00 Yes [facility] icosapent ethyL (VASCEPA) 1 gram capsule 01-06 00:00: 00 Yes [facility] levothyroxi ne 75 mcg tablet 01-06 00:00: 00 Yes [facility] icosapent ethyL (VASCEPA) 1 gram capsule 01-06 00:00: 00 Yes [facility] levothyroxi ne 75 mcg tablet 01-06 00:00: 00 Yes [facility] icosapent ethyL (VASCEPA) 1 gram capsule 01-06 00:00: 00 Yes [facility] levothyroxi ne 75 mcg tablet 01-06 00:00: 00 Yes [facility] icosapent ethyL (VASCEPA) 1 gram capsule 2022-0 01-06 00:00: 00 Yes [facility] levothyroxi ne 75 mcg tablet 0 01-06 00:00: 00 Yes [facility] icosapent ethyL (VASCEPA) 1 gram capsule 0 01-06 00:00: 00 Yes [facility] levothyroxi ne 75 mcg tablet 2022-0 01-06 00:00: 00 Yes [facility] icosapent ethyL (VASCEPA) 1 gram capsule 0 01-06 00:00: 00 Yes [facility] levothyroxi ne 75 mcg tablet 0 01-06 00:00: 00 Yes [facility] icosapent ethyL (VASCEPA) 1 gram capsule 0 01-06 00:00: 00 Yes [facility] levothyroxi ne 75 mcg tablet 2022-0 01-06 00:00: 00 Yes [facility] icosapent ethyL (VASCEPA) 1 gram capsule 0 01-06 00:00: 00 Yes [facility] levothyroxi ne 75 mcg tablet 0 01-06 00:00: 00 Yes [facility] icosapent ethyL (VASCEPA) 1 gram capsule 0 01-06 00:00: 00 Yes [facility] levothyroxi ne 75 mcg tablet 0 01-06 00:00: 00 Yes [facility] icosapent ethyL (VASCEPA) 1 gram capsule 0 01-06 00:00: 00 Yes [facility] levothyroxi ne 75 mcg tablet 2022-0 01-06 00:00: 00 Yes [facility] icosapent ethyL (VASCEPA) 1 gram capsule 0 01-06 00:00: 00 Yes [facility] levothyroxi ne 75 mcg tablet 2022-0 01-06 00:00: 00 Yes [facility] icosapent ethyL (VASCEPA) 1 gram capsule 0 01-06 00:00: 00 Yes [facility] levothyroxi ne 75 mcg tablet 2022-0 01-06 00:00: 00 Yes [facility] icosapent ethyL (VASCEPA) 1 gram capsule 0 01-06 00:00: 00 Yes 1g Take 1 capsule by mouth at bedtime. [facility] levothyroxi ne 75 mcg tablet 2022-0 01-06 00:00: 00 Yes 75ug Take 1 tablet by mouth every morning. [facility] icosapent ethyL (VASCEPA) 1 gram capsule 0 01-06 00:00: 00 Yes 1g Take 1 capsule by mouth at bedtime. [facility] levothyroxi ne 75 mcg tablet 0 01-06 00:00: 00 Yes 75ug Take 1 tablet by mouth every morning. [facility] icosapent ethyL (VASCEPA) 1 gram capsule 0 01-06 00:00: 00 Yes 1g Take 1 capsule by mouth at bedtime. [facility] levothyroxi ne 75 mcg tablet 0 01-06 00:00: 00 Yes 75ug Take 1 tablet by mouth every morning. [facility] icosapent ethyL (VASCEPA) 1 gram capsule 0 01-06 00:00: 00 Yes 1g Take 1 capsule by mouth at bedtime. [facility] levothyroxi ne 75 mcg tablet 2022-0 01-06 00:00: 00 Yes 75ug Take 1 tablet by mouth every morning. [facility] icosapent ethyL (VASCEPA) 1 gram capsule 0 01-06 00:00: 00 Yes 1g Take 1 capsule by mouth at bedtime. [facility] levothyroxi ne 75 mcg tablet 2022-0 01-06 00:00: 00 Yes 75ug Take 1 tablet by mouth every morning. [facility] icosapent ethyL (VASCEPA) 1 gram capsule 2022-0 01-06 00:00: 00 Yes 1g Take 1 capsule by mouth at bedtime. [facility] levothyroxi ne 75 mcg tablet 2022-0 01-06 00:00: 00 Yes 75ug Take 1 tablet by mouth every morning. [facility] hydrocortis one 2.5 % rectal cream 2022-0 12-27 00:00: 00 Yes APPLY TOPICALLY TO THE AFFECTED AREA TWICE DAILY [facility] hydrocortis one 2.5 % rectal cream 2022-0 12-27 00:00: 00 Yes APPLY TOPICALLY TO THE AFFECTED AREA TWICE DAILY [facility] hydrocortis one 2.5 % rectal cream 2022-0 12-27 00:00: 00 Yes APPLY TOPICALLY TO THE AFFECTED AREA TWICE DAILY [facility] hydrocortis one 2.5 % rectal cream 2022-0 12-27 00:00: 00 Yes APPLY TOPICALLY TO THE AFFECTED AREA TWICE DAILY [facility] hydrocortis one 2.5 % rectal cream 2022-0 12-27 00:00: 00 Yes APPLY TOPICALLY TO THE AFFECTED AREA TWICE DAILY [facility] hydrocortis one 2.5 % rectal cream 2022-0 12-27 00:00: 00 Yes APPLY TOPICALLY TO THE AFFECTED AREA TWICE DAILY [facility] hydrocortis one 2.5 % rectal cream 2022-0 12-27 00:00: 00 Yes APPLY TOPICALLY TO THE AFFECTED AREA TWICE DAILY [facility] hydrocortis one 2.5 % rectal cream 2022-0 12-27 00:00: 00 Yes APPLY TOPICALLY TO THE AFFECTED AREA TWICE DAILY [facility] hydrocortis one 2.5 % rectal cream 2022-0 12-27 00:00: 00 Yes APPLY TOPICALLY TO THE AFFECTED AREA TWICE DAILY [facility] hydrocortis one 2.5 % rectal cream 2022-0 12-27 00:00: 00 Yes APPLY TOPICALLY TO THE AFFECTED AREA TWICE DAILY [facility] hydrocortis one 2.5 % rectal cream 2022-0 12-27 00:00: 00 Yes APPLY TOPICALLY TO THE AFFECTED AREA TWICE DAILY [facility] hydrocortis one 2.5 % rectal cream 2022-0 12-27 00:00: 00 Yes APPLY TOPICALLY TO THE AFFECTED AREA TWICE DAILY [facility] hydrocortis one 2.5 % rectal cream 2022-0 12-27 00:00: 00 Yes APPLY TOPICALLY TO THE AFFECTED AREA TWICE DAILY [facility] hydrocortis one 2.5 % rectal cream 2022-0 12-27 00:00: 00 Yes APPLY TOPICALLY TO THE AFFECTED AREA TWICE DAILY [facility] hydrocortis one 2.5 % rectal cream 2022-0 12-27 00:00: 00 Yes APPLY TOPICALLY TO THE AFFECTED AREA TWICE DAILY [facility] hydrocortis one 2.5 % rectal cream 2022-0 12-27 00:00: 00 Yes APPLY TOPICALLY TO THE AFFECTED AREA TWICE DAILY [facility] hydrocortis one 2.5 % rectal cream 2022-0 12-27 00:00: 00 Yes APPLY TOPICALLY TO THE AFFECTED AREA TWICE DAILY [facility] hydrocortis one 2.5 % rectal cream 2022-0 12-27 00:00: 00 Yes APPLY TOPICALLY TO THE AFFECTED AREA TWICE DAILY [facility] hydrocortis one 2.5 % rectal cream 2022-0 12-27 00:00: 00 Yes APPLY TOPICALLY TO THE AFFECTED AREA TWICE DAILY [facility] hydrocortis one 2.5 % rectal cream 2022-0 12-27 00:00: 00 Yes APPLY TOPICALLY TO THE AFFECTED AREA TWICE DAILY [facility] hydrocortis one 2.5 % rectal cream 2022-0 12-27 00:00: 00 Yes APPLY TOPICALLY TO THE AFFECTED AREA TWICE DAILY [facility] hydrocortis one 2.5 % rectal cream 2022-0 12-27 00:00: 00 Yes APPLY TOPICALLY TO THE AFFECTED AREA TWICE DAILY [facility] hydrocortis one 2.5 % rectal cream 2022-0 12-27 00:00: 00 Yes APPLY TOPICALLY TO THE AFFECTED AREA TWICE DAILY [facility] hydrocortis one 2.5 % rectal cream 2022-0 12-27 00:00: 00 Yes APPLY TOPICALLY TO THE AFFECTED AREA TWICE DAILY [facility] OZEMPIC 0.25 mg or 0.5 mg (2 mg/3 mL) PnIj 3-0 12-23 00:00: 00 Yes INJECT 0.5MG UNDER THE SKIN EVERY WEEK [facility] OZEMPIC 0.25 mg or 0.5 mg (2 mg/3 mL) PnIj 2023-0 12-23 00:00: 00 Yes INJECT 0.5MG UNDER THE SKIN EVERY WEEK [facility] OZEMPIC 0.25 mg or 0.5 mg (2 mg/3 mL) PnIj 2023-0 12-23 00:00: 00 Yes INJECT 0.5MG UNDER THE SKIN EVERY WEEK [facility] OZEMPIC 0.25 mg or 0.5 mg (2 mg/3 mL) PnIj 2023-0 12-23 00:00: 00 Yes INJECT 0.5MG UNDER THE SKIN EVERY WEEK [facility] OZEMPIC 0.25 mg or 0.5 mg (2 mg/3 mL) PnIj 2023-0 12-23 00:00: 00 Yes INJECT 0.5MG UNDER THE SKIN EVERY WEEK [facility] OZEMPIC 0.25 mg or 0.5 mg (2 mg/3 mL) PnIj 2023-0 12-23 00:00: 00 Yes INJECT 0.5MG UNDER THE SKIN EVERY WEEK [facility] OZEMPIC 0.25 mg or 0.5 mg (2 mg/3 mL) PnIj 2023-0 12-23 00:00: 00 Yes INJECT 0.5MG UNDER THE SKIN EVERY WEEK [facility] OZEMPIC 0.25 mg or 0.5 mg (2 mg/3 mL) PnIj 2023-0 12-23 00:00: 00 Yes INJECT 0.5MG UNDER THE SKIN EVERY WEEK [facility] OZEMPIC 0.25 mg or 0.5 mg (2 mg/3 mL) PnIj 2023-0 12-23 00:00: 00 Yes INJECT 0.5MG UNDER THE SKIN EVERY WEEK [facility] OZEMPIC 0.25 mg or 0.5 mg (2 mg/3 mL) PnIj 2023-0 12-23 00:00: 00 Yes INJECT 0.5MG UNDER THE SKIN EVERY WEEK [facility] OZEMPIC 0.25 mg or 0.5 mg (2 mg/3 mL) PnIj 2023-0 12-23 00:00: 00 Yes INJECT 0.5MG UNDER THE SKIN EVERY WEEK [facility] OZEMPIC 0.25 mg or 0.5 mg (2 mg/3 mL) PnIj 2023-0 12-23 00:00: 00 Yes INJECT 0.5MG UNDER THE SKIN EVERY WEEK [facility] OZEMPIC 0.25 mg or 0.5 mg (2 mg/3 mL) PnIj 2023-0 12-23 00:00: 00 Yes INJECT 0.5MG UNDER THE SKIN EVERY WEEK [facility] OZEMPIC 0.25 mg or 0.5 mg (2 mg/3 mL) PnIj 2023-0 12-23 00:00: 00 Yes INJECT 0.5MG UNDER THE SKIN EVERY WEEK [facility] OZEMPIC 0.25 mg or 0.5 mg (2 mg/3 mL) PnIj 2023-0 12-23 00:00: 00 Yes INJECT 0.5MG UNDER THE SKIN EVERY WEEK [facility] OZEMPIC 0.25 mg or 0.5 mg (2 mg/3 mL) PnIj 2023-0 12-23 00:00: 00 Yes INJECT 0.5MG UNDER THE SKIN EVERY WEEK [facility] OZEMPIC 0.25 mg or 0.5 mg (2 mg/3 mL) PnIj 2023-0 12-23 00:00: 00 Yes INJECT 0.5MG UNDER THE SKIN EVERY WEEK [facility] OZEMPIC 0.25 mg or 0.5 mg (2 mg/3 mL) PnIj 2023-0 12-23 00:00: 00 Yes INJECT 0.5MG UNDER THE SKIN EVERY WEEK [facility] OZEMPIC 0.25 mg or 0.5 mg (2 mg/3 mL) PnIj 2023-0 12-23 00:00: 00 Yes INJECT 0.5MG UNDER THE SKIN EVERY WEEK [facility] OZEMPIC 0.25 mg or 0.5 mg (2 mg/3 mL) PnIj 2023-0 12-23 00:00: 00 Yes INJECT 0.5MG UNDER THE SKIN EVERY WEEK [facility] OZEMPIC 0.25 mg or 0.5 mg (2 mg/3 mL) PnIj 2023-0 - 00:00: 00 Yes INJECT 0.5MG UNDER THE SKIN EVERY WEEK [facility] OZEMPIC 0.25 mg or 0.5 mg (2 mg/3 mL) PnIj 0 - 00:00: 00 Yes INJECT 0.5MG UNDER THE SKIN EVERY WEEK [facility] OZEMPIC 0.25 mg or 0.5 mg (2 mg/3 mL) PnIj 0 - 00:00: 00 Yes INJECT 0.5MG UNDER THE SKIN EVERY WEEK [facility] OZEMPIC 0.25 mg or 0.5 mg (2 mg/3 mL) PnIj 3-0 - 00:00: 00 Yes INJECT 0.5MG UNDER THE SKIN EVERY WEEK [facility] hydrOXYchlo roQUINE (PLAQUENIL) 200 mg tablet 2022-0 17 00:00: 00 Yes [id number] 400mg Take 2 tablets by mouth in the morning. [facility] hydrOXYchlo roQUINE (PLAQUENIL) 200 mg tablet 2022-0 17 00:00: 00 Yes [id number] 400mg Take 2 tablets by mouth in the morning. [facility] hydrOXYchlo roQUINE (PLAQUENIL) 200 mg tablet 0 17 00:00: 00 Yes [id number] 400mg Take 2 tablets by mouth in the morning. [facility] hydrOXYchlo roQUINE (PLAQUENIL) 200 mg tablet 2022-0 17 00:00: 00 Yes [id number] 400mg Take 2 tablets by mouth in the morning. [facility] hydrOXYchlo roQUINE (PLAQUENIL) 200 mg tablet 2022-0 -17 00:00: 00 Yes [id number] 400mg Take 2 tablets by mouth in the morning. [facility] hydrOXYchlo roQUINE (PLAQUENIL) 200 mg tablet 2022-0 -17 00:00: 00 Yes [id number] 400mg Take 2 tablets by mouth in the morning. [facility] hydrOXYchlo roQUINE (PLAQUENIL) 200 mg tablet 2022-0 -17 00:00: 00 Yes [id number] 400mg Take 2 tablets by mouth in the morning. [facility] hydrOXYchlo roQUINE (PLAQUENIL) 200 mg tablet 2022-0 -17 00:00: 00 Yes [id number] 400mg Take 2 tablets by mouth in the morning. [facility] hydrOXYchlo roQUINE (PLAQUENIL) 200 mg tablet 2022-0 -17 00:00: 00 Yes [id number] 400mg Take 2 tablets by mouth in the morning. [facility] hydrOXYchlo roQUINE (PLAQUENIL) 200 mg tablet 2022-0 5-17 00:00: 00 Yes [id number] 400mg Take 2 tablets by mouth in the morning. [facility] hydrOXYchlo roQUINE (PLAQUENIL) 200 mg tablet 2022-0 5-17 00:00: 00 Yes [id number] 400mg Take 2 tablets by mouth in the morning. [facility] hydrOXYchlo roQUINE (PLAQUENIL) 200 mg tablet 2022-0 -17 00:00: 00 Yes [id number] 400mg Take 2 tablets by mouth in the morning. [facility] hydrOXYchlo roQUINE (PLAQUENIL) 200 mg tablet 2022-0 -17 00:00: 00 Yes [id number] 400mg Take 2 tablets by mouth in the morning. [facility] hydrOXYchlo roQUINE (PLAQUENIL) 200 mg tablet 2022-0 -17 00:00: 00 Yes [id number] 400mg Take 2 tablets by mouth in the morning. [facility] hydrOXYchlo roQUINE (PLAQUENIL) 200 mg tablet 2022-0 5-17 00:00: 00 Yes [id number] 400mg Take 2 tablets by mouth in the morning. [facility] hydrOXYchlo roQUINE (PLAQUENIL) 200 mg tablet 3-0 5-17 00:00: 00 Yes [id number] 400mg Take 2 tablets by mouth in the morning. [facility] hydrOXYchlo roQUINE (PLAQUENIL) 200 mg tablet 2022-0 5-17 00:00: 00 Yes [id number] 400mg Take 2 tablets by mouth in the morning. [facility] hydrOXYchlo roQUINE (PLAQUENIL) 200 mg tablet 2022-0 -17 00:00: 00 Yes [id number] 400mg Take 2 tablets by mouth in the morning. [facility] hydrOXYchlo roQUINE (PLAQUENIL) 200 mg tablet 2022-0 -17 00:00: 00 Yes [id number] 400mg Take 2 tablets by mouth in the morning. [facility] hydrOXYchlo roQUINE (PLAQUENIL) 200 mg tablet 2022-0 5-17 00:00: 00 Yes [id number] 400mg Take 2 tablets by mouth in the morning. [facility] hydrOXYchlo roQUINE (PLAQUENIL) 200 mg tablet 2022-0 5-17 00:00: 00 Yes [id number] 400mg Take 2 tablets by mouth in the morning. [facility] hydrOXYchlo roQUINE (PLAQUENIL) 200 mg tablet 2022-0 -17 00:00: 00 Yes [id number] 400mg Take 2 tablets by mouth in the morning. [facility] hydrOXYchlo roQUINE (PLAQUENIL) 200 mg tablet 2022-0 -17 00:00: 00 Yes [id number] 400mg Take 2 tablets by mouth in the morning. [facility] hydrOXYchlo roQUINE (PLAQUENIL) 200 mg tablet 2022-0 -17 00:00: 00 Yes [id number] 400mg Take 2 tablets by mouth in the morning. [facility] hydrOXYchlo roQUINE (PLAQUENIL) 200 mg tablet 2022-0 5-17 00:00: 00 Yes [id number] 400mg Take 2 tablets by mouth in the morning. [facility] hydrOXYchlo roQUINE (PLAQUENIL) 200 mg tablet 3-0 5-17 00:00: 00 Yes [id number] 400mg Take 2 tablets by mouth in the morning. [facility] hydrOXYchlo roQUINE (PLAQUENIL) 200 mg tablet 2022-0 5-17 00:00: 00 Yes [id number] 400mg Take 2 tablets by mouth in the morning. [facility] hydrOXYchlo roQUINE (PLAQUENIL) 200 mg tablet 2022-0 -17 00:00: 00 Yes [id number] 400mg Take 2 tablets by mouth in the morning. [facility] hydrOXYchlo roQUINE (PLAQUENIL) 200 mg tablet 2022-0 -17 00:00: 00 Yes [id number] 400mg Take 2 tablets by mouth in the morning. [facility] hydrOXYchlo roQUINE (PLAQUENIL) 200 mg tablet 2022-0 5-17 00:00: 00 Yes [id number] 400mg Take 2 tablets by mouth in the morning. [facility] hydrOXYchlo roQUINE (PLAQUENIL) 200 mg tablet 2022-0 5-17 00:00: 00 Yes [id number] 400mg Take 2 tablets by mouth in the morning. [facility] hydrOXYchlo roQUINE (PLAQUENIL) 200 mg tablet 2022-0 -17 00:00: 00 Yes [id number] 400mg Take 2 tablets by mouth in the morning. [facility] hydrOXYchlo roQUINE (PLAQUENIL) 200 mg tablet 2022-0 -17 00:00: 00 Yes [id number] 400mg Take 2 tablets by mouth in the morning. [facility] hydrOXYchlo roQUINE (PLAQUENIL) 200 mg tablet 2022-0 -17 00:00: 00 Yes [id number] 400mg Take 2 tablets by mouth in the morning. [facility] hydrOXYchlo roQUINE (PLAQUENIL) 200 mg tablet 2022-0 5-17 00:00: 00 Yes [id number] 400mg Take 2 tablets by mouth in the morning. [facility] hydrOXYchlo roQUINE (PLAQUENIL) 200 mg tablet 3-0 5-17 00:00: 00 Yes [id number] 400mg Take 2 tablets by mouth in the morning. [facility] hydrOXYchlo roQUINE (PLAQUENIL) 200 mg tablet -17 00:00: 00 -14 00:00 :00 No [id number] 400mg Take 2 tablets by mouth in the morning. [facility] adalimumab (HUMIRA,CF, PEN) 40 mg/0.4 mL injection -08 00:00: 00 Yes [id number] 40mg inject 1 Pen under the skin every 14 (fourteen) days. [facility] adalimumab (HUMIRA,CF, PEN) 40 mg/0.4 mL injection 11-21 00:00: 00 Yes [id number] 40mg inject 1 Pen under the skin every 14 (fourteen) days. [facility] adalimumab (HUMIRA,CF, PEN) 40 mg/0.4 mL injection - 00:00: 00 Yes [id number] 40mg inject 1 Pen under the skin every 14 (fourteen) days. [facility] adalimumab (HUMIRA,CF, PEN) 40 mg/0.4 mL injection 11-21 00:00: 00 Yes [id number] 40mg inject 1 Pen under the skin every 14 (fourteen) days. [facility] adalimumab (HUMIRA,CF, PEN) 40 mg/0.4 mL injection 11-21 00:00: 00 Yes [id number] 40mg inject 1 Pen under the skin every 14 (fourteen) days. [facility] adalimumab (HUMIRA,CF, PEN) 40 mg/0.4 mL injection 11-21 00:00: 00 Yes [id number] 40mg inject 1 Pen under the skin every 14 (fourteen) days. [facility] adalimumab (HUMIRA,CF, PEN) 40 mg/0.4 mL injection 0 -08 00:00: 00 Yes [id number] 40mg inject 1 Pen under the skin every 14 (fourteen) days. [facility] adalimumab (HUMIRA,CF, PEN) 40 mg/0.4 mL injection 2022-0 -08 00:00: 00 Yes [id number] 40mg inject 1 Pen under the skin every 14 (fourteen) days. [facility] adalimumab (HUMIRA,CF, PEN) 40 mg/0.4 mL injection 2022-0 -08 00:00: 00 Yes [id number] 40mg inject 1 Pen under the skin every 14 (fourteen) days. [facility] adalimumab (HUMIRA,CF, PEN) 40 mg/0.4 mL injection 2022-0 -08 00:00: 00 Yes [id number] 40mg inject 1 Pen under the skin every 14 (fourteen) days. [facility] adalimumab (HUMIRA,CF, PEN) 40 mg/0.4 mL injection 2022-0 -08 00:00: 00 Yes [id number] 40mg inject 1 Pen under the skin every 14 (fourteen) days. [facility] adalimumab (HUMIRA,CF, PEN) 40 mg/0.4 mL injection 2022-0 - 00:00: 00 Yes [id number] 40mg inject 1 Pen under the skin every 14 (fourteen) days. [facility] adalimumab (HUMIRA,CF, PEN) 40 mg/0.4 mL injection 2022-0 - 00:00: 00 Yes [id number] 40mg inject 1 Pen under the skin every 14 (fourteen) days. [facility] adalimumab (HUMIRA,CF, PEN) 40 mg/0.4 mL injection 2022-0 -08 00:00: 00 Yes [id number] 40mg inject 1 Pen under the skin every 14 (fourteen) days. [facility] [facility]ab (HUMIRA,CF, PEN) 40 mg/0.4 mL injection 2022-0 -08 00:00: 00 Yes [id number] 40mg inject 1 Pen under the skin every 14 (fourteen) days. [facility] adalimumab (HUMIRA,CF, PEN) 40 mg/0.4 mL injection 2022-0 5-08 00:00: 00 Yes [id number] 40mg inject 1 Pen under the skin every 14 (fourteen) days. [facility] adalimumab (HUMIRA,CF, PEN) 40 mg/0.4 mL injection 2022-0 5-08 00:00: 00 Yes [id number] 40mg inject 1 Pen under the skin every 14 (fourteen) days. [facility] adalimumab (HUMIRA,CF, PEN) 40 mg/0.4 mL injection 11-21 00:00: 00 Yes [id number] 40mg inject 1 Pen under the skin every 14 (fourteen) days. [facility] adalimumab (HUMIRA,CF, PEN) 40 mg/0.4 mL injection 11-21 00:00: 00 Yes [id number] 40mg inject 1 Pen under the skin every 14 (fourteen) days. [facility] adalimumab (HUMIRA,CF, PEN) 40 mg/0.4 mL injection 11-21 00:00: 00 Yes [id number] 40mg inject 1 Pen under the skin every 14 (fourteen) days. [facility] adalimumab (HUMIRA,CF, PEN) 40 mg/0.4 mL injection 11-21 00:00: 00 03-23 00:00 :00 No [id number] 40mg inject 1 Pen under the skin every 14 (fourteen) days. [facility] estradioL (CLIMARA) 0.025 mg/24 hr patch 10-13 00:00: 00 Yes 1{patch } Apply 1 Patch to skin weekly. [facility] estradioL (CLIMARA) 0.025 mg/24 hr patch 10-13 00:00: 00 Yes 1{patch } Apply 1 Patch to skin weekly. [facility] benzonatate (TESSALON PERLES) 100 mg capsule 10-13 00:00: 00 Yes [id number] 100mg Take 1 capsule by mouth every 8 (eight) hours as needed for Cough. [facility] montelukast 10 mg tablet 10-13 00:00: 00 Yes [id number] 10mg Take 1 tablet by mouth in the morning. [facility] estradioL (CLIMARA) 0.025 mg/24 hr patch 0 10-13 00:00: 00 Yes 1{patch } Apply 1 Patch to skin weekly. [facility] benzonatate (TESSALON PERLES) 100 mg capsule 2022-0 30 00:00: 00 Yes [id number] 100mg Take 1 capsule by mouth every 8 (eight) hours as needed for Cough. [facility] montelukast 10 mg tablet 2022-0 30 00:00: 00 Yes [id number] 10mg Take 1 tablet by mouth in the morning. [facility] estradioL (CLIMARA) 0.025 mg/24 hr patch 2022-0 30 00:00: 00 Yes 1{patch } Apply 1 Patch to skin weekly. [facility] benzonatate (TESSALON PERLES) 100 mg capsule 2022-0 30 00:00: 00 Yes [id number] 100mg Take 1 capsule by mouth every 8 (eight) hours as needed for Cough. [facility] montelukast 10 mg tablet 2022-0 30 00:00: 00 Yes [id number] 10mg Take 1 tablet by mouth in the morning. [facility] estradioL (CLIMARA) 0.025 mg/24 hr patch 2022-0 30 00:00: 00 Yes 1{patch } Apply 1 Patch to skin weekly. [facility] benzonatate (TESSALON PERLES) 100 mg capsule 2022-0 30 00:00: 00 Yes [id number] 100mg Take 1 capsule by mouth every 8 (eight) hours as needed for Cough. [facility] montelukast 10 mg tablet 2022-0 30 00:00: 00 Yes [id number] 10mg Take 1 tablet by mouth in the morning. [facility] estradioL (CLIMARA) 0.025 mg/24 hr patch 2022-0 30 00:00: 00 Yes 1{patch } Apply 1 Patch to skin weekly. [facility] benzonatate (TESSALON PERLES) 100 mg capsule 2022-0 30 00:00: 00 Yes [id number] 100mg Take 1 capsule by mouth every 8 (eight) hours as needed for Cough. [facility] montelukast 10 mg tablet 3-0 330 00:00: 00 Yes [id number] 10mg Take 1 tablet by mouth in the morning. [facility] estradioL (CLIMARA) 0.025 mg/24 hr patch 2022-0 30 00:00: 00 Yes 1{patch } Apply 1 Patch to skin weekly. [facility] benzonatate (TESSALON PERLES) 100 mg capsule 2022-0 30 00:00: 00 Yes [id number] 100mg Take 1 capsule by mouth every 8 (eight) hours as needed for Cough. [facility] montelukast 10 mg tablet 2022-0 30 00:00: 00 Yes [id number] 10mg Take 1 tablet by mouth in the morning. [facility] estradioL (CLIMARA) 0.025 mg/24 hr patch 2022-0 10-13 00:00: 00 Yes 1{patch } Apply 1 Patch to skin weekly. [facility] benzonatate (TESSALON PERLES) 100 mg capsule 2022-0 10-13 00:00: 00 Yes [id number] 100mg Take 1 capsule by mouth every 8 (eight) hours as needed for Cough. [facility] montelukast 10 mg tablet 2022-0 10-13 00:00: 00 Yes [id number] 10mg Take 1 tablet by mouth in the morning. [facility] estradioL (CLIMARA) 0.025 mg/24 hr patch 2022-0 30 00:00: 00 Yes 1{patch } Apply 1 Patch to skin weekly. [facility] estradioL (CLIMARA) 0.025 mg/24 hr patch 2022-0 30 00:00: 00 Yes 1{patch } Apply 1 Patch to skin weekly. [facility] estradioL (CLIMARA) 0.025 mg/24 hr patch 2022-0 30 00:00: 00 Yes 1{patch } Apply 1 Patch to skin weekly. [facility] estradioL (CLIMARA) 0.025 mg/24 hr patch 2022-0 30 00:00: 00 Yes 1{patch } Apply 1 Patch to skin weekly. [facility] estradioL (CLIMARA) 0.025 mg/24 hr patch 2022-0 30 00:00: 00 Yes 1{patch } Apply 1 Patch to skin weekly. [facility] ity [facility] estradioL (CLIMARA) 0.025 mg/24 hr patch 2022-0 3-30 00:00: 00 Yes 1{patch } Apply 1 Patch to skin weekly. [facility] ity [facility] estradioL (CLIMARA) 0.025 mg/24 hr patch 3-0 3-30 00:00: 00 Yes 1{patch } Apply 1 Patch to skin weekly. [facility] it[facility] estradioL (CLIMARA) 0.025 mg/24 hr patch 2022-0 3-30 00:00: 00 Yes 1{patch } Apply 1 Patch to skin weekly. [facility] it[facility] estradioL (CLIMARA) 0.025 mg/24 hr patch 2022-0 3-30 00:00: 00 Yes 1{patch } Apply 1 Patch to skin weekly. [facility] it[facility] estradioL (CLIMARA) 0.025 mg/24 hr patch 2022-0 3-30 00:00: 00 Yes 1{patch } Apply 1 Patch to skin weekly. [facility] it[facility] estradioL (CLIMARA) 0.025 mg/24 hr patch 2022-0 3-30 00:00: 00 Yes 1{patch } Apply 1 Patch to skin weekly. [facility] estradioL (CLIMARA) 0.025 mg/24 hr patch 2022-0 3-30 00:00: 00 Yes 1{patch } [facility] estradioL (CLIMARA) 0.025 mg/24 hr patch 2022-0 3-30 00:00: 00 Yes 1{patch } Apply 1 Patch to skin weekly. [facility] it[facility] estradioL (CLIMARA) 0.025 mg/24 hr patch 2022-0 3-30 00:00: 00 01-09 00:00 :00 No 1{patch } Apply 1 Patch to skin weekly. [facility] ity [facility] estradioL (CLIMARA) 0.025 mg/24 hr patch 2022-0 3-30 00:00: 00 01-09 00:00 :00 No 1{patch } Apply 1 Patch to skin weekly. [facility] gabapentin 300 mg capsule 2022-0 3-28 00:00: 00 Yes [id number] 300mg Take 1 capsule by mouth in the morning and 1 capsule at noon and 1 capsule in the evening. [facility] gabapentin 300 mg capsule 2023-0 3-28 00:00: 00 Yes [id number] 300mg Take 1 capsule by mouth in the morning and 1 capsule at noon and 1 capsule in the evening. [facility] gabapentin 300 mg capsule 2023-0 3-28 00:00: 00 Yes [id number] 300mg Take 1 capsule by mouth in the morning and 1 capsule at noon and 1 capsule in the evening. [facility] gabapentin 300 mg capsule 2023-0 3-28 00:00: 00 Yes [id number] 300mg Take 1 capsule by mouth in the morning and 1 capsule at noon and 1 capsule in the evening. [facility] gabapentin 300 mg capsule 2023-0 3-28 00:00: 00 Yes [id number] 300mg Take 1 capsule by mouth in the morning and 1 capsule at noon and 1 capsule in the evening. [facility] gabapentin 300 mg capsule 2023-0 3-28 00:00: 00 Yes [id number] 300mg Take 1 capsule by mouth in the morning and 1 capsule at noon and 1 capsule in the evening. [facility] gabapentin 300 mg capsule 3-0 3-28 00:00: 00 Yes [id number] 300mg Take 1 capsule by mouth in the morning and 1 capsule at noon and 1 capsule in the evening. [facility] gabapentin 300 mg capsule 2023-0 3-28 00:00: 00 Yes [id number] 300mg Take 1 capsule by mouth in the morning and 1 capsule at noon and 1 capsule in the evening. [facility] gabapentin 300 mg capsule 2023-0 3-28 00:00: 00 Yes [id number] 300mg Take 1 capsule by mouth in the morning and 1 capsule at noon and 1 capsule in the evening. [facility] gabapentin 300 mg capsule 2023-0 3-28 00:00: 00 Yes [id number] 300mg Take 1 capsule by mouth in the morning and 1 capsule at noon and 1 capsule in the evening. [facility] gabapentin 300 mg capsule 2023-0 3-28 00:00: 00 Yes [id number] 300mg Take 1 capsule by mouth in the morning and 1 capsule at noon and 1 capsule in the evening. [facility] gabapentin 300 mg capsule 2023-0 3-28 00:00: 00 Yes [id number] 300mg Take 1 capsule by mouth in the morning and 1 capsule at noon and 1 capsule in the evening. [facility] gabapentin 300 mg capsule 2023-0 3-28 00:00: 00 Yes [id number] 300mg Take 1 capsule by mouth in the morning and 1 capsule at noon and 1 capsule in the evening. [facility] gabapentin 300 mg capsule 2023-0 3-28 00:00: 00 Yes [id number] 300mg Take 1 capsule by mouth in the morning and 1 capsule at noon and 1 capsule in the evening. [facility] gabapentin 300 mg capsule 2023-0 3-28 00:00: 00 Yes [id number] 300mg Take 1 capsule by mouth in the morning and 1 capsule at noon and 1 capsule in the evening. [facility] gabapentin 300 mg capsule 2023-0 3-28 00:00: 00 Yes [id number] 300mg Take 1 capsule by mouth in the morning and 1 capsule at noon and 1 capsule in the evening. [facility] gabapentin 300 mg capsule 3-0 3-28 00:00: 00 Yes [id number] 300mg Take 1 capsule by mouth in the morning and 1 capsule at noon and 1 capsule in the evening. [facility] gabapentin 300 mg capsule 2023-0 3-28 00:00: 00 Yes [id number] 300mg Take 1 capsule by mouth in the morning and 1 capsule at noon and 1 capsule in the evening. [facility] gabapentin 300 mg capsule 2023-0 3-28 00:00: 00 Yes [id number] 300mg Take 1 capsule by mouth in the morning and 1 capsule at noon and 1 capsule in the evening. [facility] gabapentin 300 mg capsule 2023-0 3-28 00:00: 00 Yes [id number] 300mg Take 1 capsule by mouth in the morning and 1 capsule at noon and 1 capsule in the evening. [facility] gabapentin 300 mg capsule 2023-0 3-28 00:00: 00 Yes [id number] 300mg Take 1 capsule by mouth in the morning and 1 capsule at noon and 1 capsule in the evening. [facility] gabapentin 300 mg capsule 3-0 3-28 00:00: 00 Yes [id number] 300mg Take 1 capsule by mouth in the morning and 1 capsule at noon and 1 capsule in the evening. [facility] gabapentin 300 mg capsule 3-0 3-28 00:00: 00 Yes [id number] 300mg Take 1 capsule by mouth in the morning and 1 capsule at noon and 1 capsule in the evening. [facility] gabapentin 300 mg capsule 3-0 28 00:00: 00 Yes [id number] 300mg Take 1 capsule by mouth in the morning and 1 capsule at noon and 1 capsule in the evening. [facility] gabapentin 300 mg capsule 3-0 28 00:00: 00 Yes [id number] 300mg Take 1 capsule by mouth in the morning and 1 capsule at noon and 1 capsule in the evening. [facility] gabapentin 300 mg capsule 3-0 28 00:00: 00 Yes [id number] 300mg Take 1 capsule by mouth in the morning and 1 capsule at noon and 1 capsule in the evening. [facility] gabapentin 300 mg capsule 3-0 28 00:00: 00 Yes [id number] 300mg Take 1 capsule by mouth in the morning and 1 capsule at noon and 1 capsule in the evening. [facility] gabapentin 300 mg capsule 3-0 28 00:00: 00 03-23 00:00 :00 No [id number] 300mg Take 1 capsule by mouth in the morning and 1 capsule at noon and 1 capsule in the evening. [facility] gabapentin 300 mg capsule 3-0 28 00:00: 00 03-23 00:00 :00 No [id number] 300mg Take 1 capsule by mouth in the morning and 1 capsule at noon and 1 capsule in the evening. [facility] hydrOXYchlo roQUINE (PLAQUENIL) 200 mg tablet 2022-0 324 00:00: 00 Yes [id number] 400mg Take 2 tablets by mouth in the morning. [facility] hydrOXYchlo roQUINE (PLAQUENIL) 200 mg tablet 2022-0 324 00:00: 00 Yes [id number] 400mg Take 2 tablets by mouth in the morning. [facility] hydrOXYchlo roQUINE (PLAQUENIL) 200 mg tablet 2022-0 324 00:00: 00 Yes [id number] 400mg Take 2 tablets by mouth in the morning. [facility] hydrOXYchlo roQUINE (PLAQUENIL) 200 mg tablet 2022-0 324 00:00: 00 Yes [id number] 400mg Take 2 tablets by mouth in the morning. [facility] hydrOXYchlo roQUINE (PLAQUENIL) 200 mg tablet 2022-0 324 00:00: 00 Yes [id number] 400mg Take 2 tablets by mouth in the morning. [facility] hydrOXYchlo roQUINE (PLAQUENIL) 200 mg tablet 2022-0 324 00:00: 00 Yes [id number] 400mg Take 2 tablets by mouth in the morning. [facility] hydrOXYchlo roQUINE (PLAQUENIL) 200 mg tablet 2022-0 324 00:00: 00 Yes [id number] 400mg Take 2 tablets by mouth in the morning. [facility] hydrOXYchlo roQUINE (PLAQUENIL) 200 mg tablet 2022-0 324 00:00: 00 Yes [id number] 400mg Take 2 tablets by mouth in the morning. [facility] hydrOXYchlo roQUINE (PLAQUENIL) 200 mg tablet 2022-0 324 00:00: 00 Yes [id number] 400mg Take 2 tablets by mouth in the morning. [facility] hydrOXYchlo roQUINE (PLAQUENIL) 200 mg tablet 2022-0 3-24 00:00: 00 Yes [id number] 400mg Take 2 tablets by mouth in the morning. [facility] hydrOXYchlo roQUINE (PLAQUENIL) 200 mg tablet 3-0 3-24 00:00: 00 Yes [id number] 400mg Take 2 tablets by mouth in the morning. [facility] hydrOXYchlo roQUINE (PLAQUENIL) 200 mg tablet 10-07 00:00: 00 Yes [id number] 400mg Take 2 tablets by mouth in the morning. [facility] hydrOXYchlo roQUINE (PLAQUENIL) 200 mg tablet 10-07 00:00: 00 Yes [id number] 400mg Take 2 tablets by mouth in the morning. [facility] hydrOXYchlo roQUINE (PLAQUENIL) 200 mg tablet 10-07 00:00: 00 Yes [id number] 400mg Take 2 tablets by mouth in the morning. [facility] hydrOXYchlo roQUINE (PLAQUENIL) 200 mg tablet 10-07 00:00: 00 11-30 00:00 :00 No [id number] 400mg Take 2 tablets by mouth in the morning. [facility] hydrOXYchlo roQUINE (PLAQUENIL) 200 mg tablet 10-07 00:00: 00 10-07 00:00 :00 No [id number] 200mg Take 1 tablet by mouth in the morning and 1 tablet in the evening. [facility] hydrOXYchlo roQUINE (PLAQUENIL) 200 mg tablet 10-07 00:00: 00 10-07 00:00 :00 No [id number] 200mg Take 1 tablet by mouth in the morning and 1 tablet in the evening. [facility] estradioL (MINIVELLE) 0.025 mg/24 hr patch 10-06 00:00: 00 Yes [id number] 1{patch } Apply 1 Patch to skin 2 (two) times per week. [facility] estradioL (MINIVELLE) 0.025 mg/24 hr patch 10-06 00:00: 00 Yes [id number] 1{patch } Apply 1 Patch to skin 2 (two) times per week. [facility] estradioL (MINIVELLE) 0.025 mg/24 hr patch 10-06 00:00: 00 Yes [id number] 1{patch } Apply 1 Patch to skin 2 (two) times per week. [facility] estradioL (MINIVELLE) 0.025 mg/24 hr patch 10-06 00:00: 00 Yes [id number] 1{patch } Apply 1 Patch to skin 2 (two) times per week. [facility] estradioL (MINIVELLE) 0.025 mg/24 hr patch 10-06 00:00: 00 Yes [id number] 1{patch } Apply 1 Patch to skin 2 (two) times per week. [facility] estradioL (MINIVELLE) 0.025 mg/24 hr patch 10-06 00:00: 00 Yes [id number] 1{patch } Apply 1 Patch to skin 2 (two) times per week. [facility] estradioL (MINIVELLE) 0.025 mg/24 hr patch 10-06 00:00: 00 Yes [id number] 1{patch } Apply 1 Patch to skin 2 (two) times per week. [facility] estradioL (MINIVELLE) 0.025 mg/24 hr patch 10-06 00:00: 00 Yes [id number] 1{patch } Apply 1 Patch to skin 2 (two) times per week. [facility] estradioL (MINIVELLE) 0.025 mg/24 hr patch 10-06 00:00: 00 10-13 00:00 :00 No [id number] 1{patch } Apply 1 Patch to skin 2 (two) times per week. [facility] estradioL (MINIVELLE) 0.025 mg/24 hr patch 10-06 00:00: 00 10-13 00:00 :00 No [id number] 1{patch } Apply 1 Patch to skin 2 (two) times per week. [facility] Cholecalcif mary, Vitamin D3, (VITAMIN D3) 50 mcg (2,000 unit) tablet 09-28 00:00: 00 Yes [facility] Cholecalcif mary, Vitamin D3, (VITAMIN D3) 50 mcg (2,000 unit) tablet 09-28 00:00: 00 Yes [facility] Cholecalcif mary, Vitamin D3, (VITAMIN D3) 50 mcg (2,000 unit) tablet 09-28 00:00: 00 Yes [facility] Cholecalcif mary, Vitamin D3, (VITAMIN D3) 50 mcg (2,000 unit) tablet 09-28 00:00: 00 Yes [facility] Cholecalcif mary, Vitamin D3, (VITAMIN D3) 50 mcg (2,000 unit) tablet 09-28 00:00: 00 Yes [facility] Cholecalcif mary, Vitamin D3, (VITAMIN D3) 50 mcg (2,000 unit) tablet 09-28 00:00: 00 Yes [facility] Cholecalcif mary, Vitamin D3, (VITAMIN D3) 50 mcg (2,000 unit) tablet 09-28 00:00: 00 Yes [facility] Cholecalcif mary, Vitamin D3, (VITAMIN D3) 50 mcg (2,000 unit) tablet 09-28 00:00: 00 Yes [facility] Cholecalcif mary, Vitamin D3, (VITAMIN D3) 50 mcg (2,000 unit) tablet 09-28 00:00: 00 Yes [facility] Cholecalcif mary, Vitamin D3, (VITAMIN D3) 50 mcg (2,000 unit) tablet 09-28 00:00: 00 Yes [facility] Cholecalcif mary, Vitamin D3, (VITAMIN D3) 50 mcg (2,000 unit) tablet 09-28 00:00: 00 Yes [facility] Cholecalcif mary, Vitamin D3, (VITAMIN D3) 50 mcg (2,000 unit) tablet 09-28 00:00: 00 Yes [facility] Cholecalcif mary, Vitamin D3, (VITAMIN D3) 50 mcg (2,000 unit) tablet 09-28 00:00: 00 Yes [facility] Cholecalcif mary, Vitamin D3, (VITAMIN D3) 50 mcg (2,000 unit) tablet 09-28 00:00: 00 Yes [facility] Cholecalcif mary, Vitamin D3, (VITAMIN D3) 50 mcg (2,000 unit) tablet 09-28 00:00: 00 Yes [facility] Cholecalcif mary, Vitamin D3, (VITAMIN D3) 50 mcg (2,000 unit) tablet 09-28 00:00: 00 Yes [facility] Cholecalcif mary, Vitamin D3, (VITAMIN D3) 50 mcg (2,000 unit) tablet 09-28 00:00: 00 Yes [facility] Cholecalcif mary, Vitamin D3, (VITAMIN D3) 50 mcg (2,000 unit) tablet 09-28 00:00: 00 Yes [facility] Cholecalcif mary, Vitamin D3, (VITAMIN D3) 50 mcg (2,000 unit) tablet 09-28 00:00: 00 Yes [facility] Cholecalcif mary, Vitamin D3, (VITAMIN D3) 50 mcg (2,000 unit) tablet 09-28 00:00: 00 Yes [facility] Cholecalcif mary, Vitamin D3, (VITAMIN D3) 50 mcg (2,000 unit) tablet 09-28 00:00: 00 Yes [facility] Cholecalcif mary, Vitamin D3, (VITAMIN D3) 50 mcg (2,000 unit) tablet 09-28 00:00: 00 Yes [facility] Cholecalcif mary, Vitamin D3, (VITAMIN D3) 50 mcg (2,000 unit) tablet 09-28 00:00: 00 Yes [facility] Cholecalcif mary, Vitamin D3, (VITAMIN D3) 50 mcg (2,000 unit) tablet 09-28 00:00: 00 Yes [facility] Cholecalcif mary, Vitamin D3, (VITAMIN D3) 50 mcg (2,000 unit) tablet 09-28 00:00: 00 Yes 2000U Take 1 tablet by mouth in the morning. [facility] Cholecalcif mary, Vitamin D3, (VITAMIN D3) 50 mcg (2,000 unit) tablet 09-28 00:00: 00 Yes 2000U Take 1 tablet by mouth in the morning. [facility] Cholecalcif mary, Vitamin D3, (VITAMIN D3) 50 mcg (2,000 unit) tablet 15 00:00: 00 Yes 2000U Take 1 tablet by mouth in the morning. [facility] Cholecalcif mary, Vitamin D3, (VITAMIN D3) 50 mcg (2,000 unit) tablet 15 00:00: 00 Yes 2000U Take 1 tablet by mouth in the morning. [facility] Cholecalcif mary, Vitamin D3, (VITAMIN D3) 50 mcg (2,000 unit) tablet 15 00:00: 00 Yes 2000U Take 1 tablet by mouth in the morning. [facility] Cholecalcif mary, Vitamin D3, (VITAMIN D3) 50 mcg (2,000 unit) tablet 09-28 00:00: 00 Yes 2000U Take 1 tablet by mouth in the morning. [facility] empaglifloz in-metformi n (SYNJARDY) 5-1,000 mg Tab 09-15 11:49: 18 09-15 00:00 :00 No Take by mouth 2 (two) times daily. [facility] empaglifloz in-metformi n (SYNJARDY) 5-1,000 mg Tab 2022-09-15 00:00: 00 Yes [id number] 1{tbl} Take 1 tablet by mouth in the morning and 1 tablet in the evening. [facility] empaglifloz in-metformi n (SYNJARDY) 5-1,000 mg Tab 0 09-15 00:00: 00 Yes [id number] 1{tbl} Take 1 tablet by mouth in the morning and 1 tablet in the evening. [facility] empaglifloz in-metformi n (SYNJARDY) 5-1,000 mg Tab 2022-0 09-15 00:00: 00 Yes [id number] 1{tbl} Take 1 tablet by mouth in the morning and 1 tablet in the evening. [facility] empaglifloz in-metformi n (SYNJARDY) 5-1,000 mg Tab 2023-0 3-02 00:00: 00 Yes [id number] 1{tbl} Take 1 tablet by mouth in the morning and 1 tablet in the evening. [facility] empaglifloz in-metformi n (SYNJARDY) 5-1,000 mg Tab 2023-0 3-02 00:00: 00 Yes [id number] 1{tbl} Take 1 tablet by mouth in the morning and 1 tablet in the evening. [facility] empaglifloz in-metformi n (SYNJARDY) 5-1,000 mg Tab 2023-0 3-02 00:00: 00 Yes [id number] 1{tbl} Take 1 tablet by mouth in the morning and 1 tablet in the evening. [facility] empaglifloz in-metformi n (SYNJARDY) 5-1,000 mg Tab 2023-0 3-02 00:00: 00 Yes [id number] 1{tbl} Take 1 tablet by mouth in the morning and 1 tablet in the evening. [facility] empaglifloz in-metformi n (SYNJARDY) 5-1,000 mg Tab 2023-0 3-02 00:00: 00 Yes [id number] 1{tbl} Take 1 tablet by mouth in the morning and 1 tablet in the evening. [facility] empaglifloz in-metformi n (SYNJARDY) 5-1,000 mg Tab 2023-0 3-02 00:00: 00 Yes [id number] 1{tbl} Take 1 tablet by mouth in the morning and 1 tablet in the evening. [facility] empaglifloz in-metformi n (SYNJARDY) 5-1,000 mg Tab 2023-0 3-02 00:00: 00 Yes [id number] 1{tbl} Take 1 tablet by mouth in the morning and 1 tablet in the evening. [facility] empaglifloz in-metformi n (SYNJARDY) 5-1,000 mg Tab 2023-0 3-02 00:00: 00 Yes [id number] 1{tbl} Take 1 tablet by mouth in the morning and 1 tablet in the evening. [facility] empaglifloz in-metformi n (SYNJARDY) 5-1,000 mg Tab 2023-0 3-02 00:00: 00 Yes [id number] 1{tbl} Take 1 tablet by mouth in the morning and 1 tablet in the evening. [facility] empaglifloz in-metformi n (SYNJARDY) 5-1,000 mg Tab 2023-0 3-02 00:00: 00 Yes [id number] 1{tbl} Take 1 tablet by mouth in the morning and 1 tablet in the evening. [facility] empaglifloz in-metformi n (SYNJARDY) 5-1,000 mg Tab 2023-0 3- 00:00: 00 Yes [id number] 1{tbl} Take 1 tablet by mouth in the morning and 1 tablet in the evening. [facility] pantoprazol e 40 mg EC tablet 2022-0 3 00:00: 00 Yes 40mg Take 1 tablet by mouth every morning. [facility] empaglifloz in-metformi n (SYNJARDY) 5-1,000 mg Tab 3-0 3 00:00: 00 Yes [id number] 1{tbl} Take 1 tablet by mouth in the morning and 1 tablet in the evening. [facility] pantoprazol e 40 mg EC tablet 3-0 3-02 00:00: 00 Yes 40mg Take 1 tablet by mouth every morning. [facility] empaglifloz in-metformi n (SYNJARDY) 5-1,000 mg Tab 2023-0 3-02 00:00: 00 Yes [id number] 1{tbl} Take 1 tablet by mouth in the morning and 1 tablet in the evening. [facility] pantoprazol e 40 mg EC tablet 3-0 3-02 00:00: 00 Yes 40mg Take 1 tablet by mouth every morning. [facility] empaglifloz in-metformi n (SYNJARDY) 5-1,000 mg Tab 3-0 3-02 00:00: 00 Yes [id number] 1{tbl} Take 1 tablet by mouth in the morning and 1 tablet in the evening. [facility] pantoprazol e 40 mg EC tablet 3-0 3-02 00:00: 00 Yes 40mg Take 1 tablet by mouth every morning. [facility] empaglifloz in-metformi n (SYNJARDY) 5-1,000 mg Tab 2023-0 3-02 00:00: 00 Yes [id number] 1{tbl} Take 1 tablet by mouth in the morning and 1 tablet in the evening. [facility] pantoprazol e 40 mg EC tablet 2022-0 02 00:00: 00 Yes 40mg Take 1 tablet by mouth every morning. [facility] empaglifloz in-metformi n (SYNJARDY) 5-1,000 mg Tab 3-0 - 00:00: 00 Yes [id number] 1{tbl} Take 1 tablet by mouth in the morning and 1 tablet in the evening. [facility] pantoprazol e 40 mg EC tablet 2022-0 09-15 00:00: 00 Yes 40mg Take 1 tablet by mouth every morning. [facility] empaglifloz in-metformi n (SYNJARDY) 5-1,000 mg Tab 3-0 -02 00:00: 00 Yes [id number] 1{tbl} Take 1 tablet by mouth in the morning and 1 tablet in the evening. [facility] pantoprazol e 40 mg EC tablet 2022-0 -02 00:00: 00 Yes 40mg Take 1 tablet by mouth every morning. [facility] empaglifloz in-metformi n (SYNJARDY) 5-1,000 mg Tab 3-0 3-02 00:00: 00 Yes [id number] 1{tbl} Take 1 tablet by mouth in the morning and 1 tablet in the evening. [facility] pantoprazol e 40 mg EC tablet 3-0 3-02 00:00: 00 Yes 40mg Take 1 tablet by mouth every morning. [facility] empaglifloz in-metformi n (SYNJARDY) 5-1,000 mg Tab 2023-0 3-02 00:00: 00 Yes [id number] 1{tbl} Take 1 tablet by mouth in the morning and 1 tablet in the evening. [facility] pantoprazol e 40 mg EC tablet 2022-0 3-02 00:00: 00 Yes 40mg Take 1 tablet by mouth every morning. [facility] empaglifloz in-metformi n (SYNJARDY) 5-1,000 mg Tab 2023-0 3-02 00:00: 00 Yes [id number] 1{tbl} Take 1 tablet by mouth in the morning and 1 tablet in the evening. [facility] pantoprazol e 40 mg EC tablet 2022-0 09-15 00:00: 00 Yes 40mg Take 1 tablet by mouth every morning. [facility] empaglifloz in-metformi n (SYNJARDY) 5-1,000 mg Tab 3-0 -02 00:00: 00 Yes [id number] 1{tbl} Take 1 tablet by mouth in the morning and 1 tablet in the evening. [facility] pantoprazol e 40 mg EC tablet 2022-0 02 00:00: 00 Yes 40mg Take 1 tablet by mouth every morning. [facility] empaglifloz in-metformi n (SYNJARDY) 5-1,000 mg Tab 3-0 3-02 00:00: 00 Yes [id number] 1{tbl} Take 1 tablet by mouth in the morning and 1 tablet in the evening. [facility] pantoprazol e 40 mg EC tablet 3-0 3-02 00:00: 00 Yes 40mg Take 1 tablet by mouth every morning. [facility] empaglifloz in-metformi n (SYNJARDY) 5-1,000 mg Tab 2023-0 3-02 00:00: 00 Yes [id number] 1{tbl} Take 1 tablet by mouth in the morning and 1 tablet in the evening. [facility] pantoprazol e 40 mg EC tablet 3-0 3-02 00:00: 00 Yes 40mg Take 1 tablet by mouth every morning. [facility] empaglifloz in-metformi n (SYNJARDY) 5-1,000 mg Tab 3-0 3-02 00:00: 00 Yes [id number] 1{tbl} Take 1 tablet by mouth in the morning and 1 tablet in the evening. [facility] pantoprazol e 40 mg EC tablet 2022-0 3-02 00:00: 00 Yes 40mg Take 1 tablet by mouth every morning. [facility] empaglifloz in-metformi n (SYNJARDY) 5-1,000 mg Tab 3-0 - 00:00: 00 Yes [id number] 1{tbl} Take 1 tablet by mouth in the morning and 1 tablet in the evening. [facility] pantoprazol e 40 mg EC tablet 2022-0 09-15 00:00: 00 Yes 40mg Take 1 tablet by mouth every morning. [facility] empaglifloz in-metformi n (SYNJARDY) 5-1,000 mg Tab 3-0 - 00:00: 00 Yes [id number] 1{tbl} Take 1 tablet by mouth in the morning and 1 tablet in the evening. [facility] pantoprazol e 40 mg EC tablet 2022-0 02 00:00: 00 Yes 40mg Take 1 tablet by mouth every morning. [facility] empaglifloz in-metformi n (SYNJARDY) 5-1,000 mg Tab 3-0 3-02 00:00: 00 Yes [id number] 1{tbl} Take 1 tablet by mouth in the morning and 1 tablet in the evening. [facility] pantoprazol e 40 mg EC tablet 2022-0 3-02 00:00: 00 Yes 40mg Take 1 tablet by mouth every morning. [facility] empaglifloz in-metformi n (SYNJARDY) 5-1,000 mg Tab 2023-0 3-02 00:00: 00 Yes [id number] 1{tbl} Take 1 tablet by mouth in the morning and 1 tablet in the evening. [facility] pantoprazol e 40 mg EC tablet 2023-0 3-02 00:00: 00 Yes 40mg Take 1 tablet by mouth every morning. [facility] empaglifloz in-metformi n (SYNJARDY) 5-1,000 mg Tab 2023-0 3-02 00:00: 00 Yes [id number] 1{tbl} Take 1 tablet by mouth in the morning and 1 tablet in the evening. [facility] pantoprazol e 40 mg EC tablet 2023-0 3-02 00:00: 00 Yes 40mg Take 1 tablet by mouth every morning. [facility] empaglifloz in-metformi n (SYNJARDY) 5-1,000 mg Tab 2023-0 3-02 00:00: 00 Yes [id number] 1{tbl} Take 1 tablet by mouth in the morning and 1 tablet in the evening. [facility] pantoprazol e 40 mg EC tablet 3-0 3-02 00:00: 00 Yes 40mg Take 1 tablet by mouth every morning. [facility] empaglifloz in-metformi n (SYNJARDY) 5-1,000 mg Tab 2023-0 3-02 00:00: 00 Yes [id number] 1{tbl} Take 1 tablet by mouth in the morning and 1 tablet in the evening. [facility] empaglifloz in-metformi n (SYNJARDY) 5-1,000 mg Tab 2023-0 3-02 00:00: 00 Yes [id number] 1{tbl} Take 1 tablet by mouth in the morning and 1 tablet in the evening. [facility] empaglifloz in-metformi n (SYNJARDY) 5-1,000 mg Tab 2023-0 3-02 00:00: 00 Yes [id number] 1{tbl} Take 1 tablet by mouth in the morning and 1 tablet in the evening. [facility] empaglifloz in-metformi n (SYNJARDY) 5-1,000 mg Tab 2023-0 3-02 00:00: 00 Yes [id number] 1{tbl} Take 1 tablet by mouth in the morning and 1 tablet in the evening. [facility] empaglifloz in-metformi n (SYNJARDY) 5-1,000 mg Tab 2023-0 3-02 00:00: 00 Yes [id number] 1{tbl} Take 1 tablet by mouth in the morning and 1 tablet in the evening. [facility] empaglifloz in-metformi n (SYNJARDY) 5-1,000 mg Tab 2023-0 3-02 00:00: 00 Yes [id number] 1{tbl} Take 1 tablet by mouth in the morning and 1 tablet in the evening. [facility] empaglifloz in-metformi n (SYNJARDY) 5-1,000 mg Tab 2023-0 3-02 00:00: 00 Yes [id number] 1{tbl} Take 1 tablet by mouth in the morning and 1 tablet in the evening. [facility] empaglifloz in-metformi n (SYNJARDY) 5-1,000 mg Tab 2023-0 3-02 00:00: 00 Yes [id number] 1{tbl} Take 1 tablet by mouth in the morning and 1 tablet in the evening. [facility] empaglifloz in-metformi n (SYNJARDY) 5-1,000 mg Tab 2023-0 3-02 00:00: 00 Yes [id number] 1{tbl} Take 1 tablet by mouth in the morning and 1 tablet in the evening. [facility] empaglifloz in-metformi n (SYNJARDY) 5-1,000 mg Tab 2023-0 3-02 00:00: 00 Yes [id number] 1{tbl} Take 1 tablet by mouth in the morning and 1 tablet in the evening. [facility] empaglifloz in-metformi n (SYNJARDY) 5-1,000 mg Tab 2023-0 3-02 00:00: 00 Yes [id number] 1{tbl} Take 1 tablet by mouth in the morning and 1 tablet in the evening. [facility] empaglifloz in-metformi n (SYNJARDY) 5-1,000 mg Tab 2023-0 3-02 00:00: 00 Yes [id number] 1{tbl} Take 1 tablet by mouth in the morning and 1 tablet in the evening. [facility] empaglifloz in-metformi n (SYNJARDY) 5-1,000 mg Tab 2023-0 3-02 00:00: 00 Yes [id number] 1{tbl} Take 1 tablet by mouth in the morning and 1 tablet in the evening. [facility] empaglifloz in-metformi n (SYNJARDY) 5-1,000 mg Tab 2023-0 3-02 00:00: 00 Yes [id number] 1{tbl} Take 1 tablet by mouth in the morning and 1 tablet in the evening. [facility] empaglifloz in-metformi n (SYNJARDY) 5-1,000 mg Tab 2023-0 3-02 00:00: 00 Yes [id number] 1{tbl} Take 1 tablet by mouth in the morning and 1 tablet in the evening. [facility] empaglifloz in-metformi n (SYNJARDY) 5-1,000 mg Tab 2023-0 3-02 00:00: 00 Yes [id number] 1{tbl} Take 1 tablet by mouth in the morning and 1 tablet in the evening. [facility] empaglifloz in-metformi n (SYNJARDY) 5-1,000 mg Tab 2023-0 3-02 00:00: 00 Yes [id number] 1{tbl} Take 1 tablet by mouth in the morning and 1 tablet in the evening. [facility] empaglifloz in-metformi n (SYNJARDY) 5-1,000 mg Tab 2023-0 3-02 00:00: 00 Yes [id number] 1{tbl} Take 1 tablet by mouth in the morning and 1 tablet in the evening. [facility] empaglifloz in-metformi n (SYNJARDY) 5-1,000 mg Tab 2023-0 3-02 00:00: 00 Yes [id number] 1{tbl} Take 1 tablet by mouth in the morning and 1 tablet in the evening. [facility] empaglifloz in-metformi n (SYNJARDY) 5-1,000 mg Tab 2023-0 3-02 00:00: 00 Yes [id number] 1{tbl} Take 1 tablet by mouth in the morning and 1 tablet in the evening. [facility] empaglifloz in-metformi n (SYNJARDY) 5-1,000 mg Tab 2023-0 3-02 00:00: 00 Yes [id number] 1{tbl} Take 1 tablet by mouth in the morning and 1 tablet in the evening. [facility] empaglifloz in-metformi n (SYNJARDY) 5-1,000 mg Tab 2023-0 3-02 00:00: 00 Yes [id number] 1{tbl} Take 1 tablet by mouth in the morning and 1 tablet in the evening. [facility] empaglifloz in-metformi n (SYNJARDY) 5-1,000 mg Tab 2023-0 3-02 00:00: 00 Yes [id number] 1{tbl} Take 1 tablet by mouth in the morning and 1 tablet in the evening. [facility] empaglifloz in-metformi n (SYNJARDY) 5-1,000 mg Tab 2023-0 3-02 00:00: 00 Yes [id number] 1{tbl} Take 1 tablet by mouth in the morning and 1 tablet in the evening. [facility] empaglifloz in-metformi n (SYNJARDY) 5-1,000 mg Tab 2023-0 3-02 00:00: 00 Yes [id number] 1{tbl} Take 1 tablet by mouth in the morning and 1 tablet in the evening. [facility] empaglifloz in-metformi n (SYNJARDY) 5-1,000 mg Tab 2023-0 3-02 00:00: 00 Yes [id number] 1{tbl} Take 1 tablet by mouth in the morning and 1 tablet in the evening. [facility] empaglifloz in-metformi n (SYNJARDY) 5-1,000 mg Tab 3-0 3-02 00:00: 00 Yes [id number] 1{tbl} Take 1 tablet by mouth in the morning and 1 tablet in the evening. [facility] empaglifloz in-metformi n (SYNJARDY) 5-1,000 mg Tab 2022-0 3- 00:00: 00 Yes [id number] 1{tbl} Take 1 tablet by mouth in the morning and 1 tablet in the evening. [facility] empaglifloz in-metformi n (SYNJARDY) 5-1,000 mg Tab 2022-0 - 00:00: 00 Yes [id number] 1{tbl} Take 1 tablet by mouth in the morning and 1 tablet in the evening. [facility] empaglifloz in-metformi n (SYNJARDY) 5-1,000 mg Tab 2022-0 09-15 00:00: 00 Yes [id number] 1{tbl} Take 1 tablet by mouth in the morning and 1 tablet in the evening. [facility] pantoprazol e 40 mg EC tablet 09-15 00:00: 00 01-09 00:00 :00 No 40mg Take 1 tablet by mouth every morning. [facility] pantoprazol e 40 mg EC tablet 09-15 00:00: 00 01-09 00:00 :00 No 40mg Take 1 tablet by mouth every morning. [facility] simvastatin 80 mg tablet 09-13 07:41: 17 09-13 00:00 :00 No 80mg Take 80 mg by mouth at bedtime. [facility] simvastatin 80 mg tablet 09-13 00:00: 00 Yes [id number] 80mg Take 1 tablet by mouth at bedtime. [facility] levothyroxi ne 50 mcg tablet 09-13 00:00: 00 Yes [id number] 50ug Take 1 tablet by mouth every morning. [facility] simvastatin 80 mg tablet 2022-0 28 00:00: 00 Yes [id number] 80mg Take 1 tablet by mouth at bedtime. [facility] levothyroxi ne 50 mcg tablet 2022-0 28 00:00: 00 Yes [id number] 50ug Take 1 tablet by mouth every morning. [facility] simvastatin 80 mg tablet 2022-0 28 00:00: 00 Yes [id number] 80mg Take 1 tablet by mouth at bedtime. [facility] levothyroxi ne 50 mcg tablet 2022-0 28 00:00: 00 Yes [id number] 50ug Take 1 tablet by mouth every morning. [facility] simvastatin 80 mg tablet 2022-0 28 00:00: 00 Yes [id number] 80mg Take 1 tablet by mouth at bedtime. [facility] levothyroxi ne 50 mcg tablet 2022-0 09-13 00:00: 00 Yes [id number] 50ug Take 1 tablet by mouth every morning. [facility] simvastatin 80 mg tablet 2022-0 28 00:00: 00 Yes [id number] 80mg Take 1 tablet by mouth at bedtime. [facility] levothyroxi ne 50 mcg tablet 0 09-13 00:00: 00 Yes [id number] 50ug Take 1 tablet by mouth every morning. [facility] simvastatin 80 mg tablet 2022-0 28 00:00: 00 Yes [id number] 80mg Take 1 tablet by mouth at bedtime. [facility] levothyroxi ne 50 mcg tablet 2022-0 28 00:00: 00 Yes [id number] 50ug Take 1 tablet by mouth every morning. [facility] simvastatin 80 mg tablet 2022-0 28 00:00: 00 Yes [id number] 80mg Take 1 tablet by mouth at bedtime. [facility] levothyroxi ne 50 mcg tablet 2022-0 28 00:00: 00 Yes [id number] 50ug Take 1 tablet by mouth every morning. [facility] simvastatin 80 mg tablet 2022-0 28 00:00: 00 Yes [id number] 80mg Take 1 tablet by mouth at bedtime. [facility] levothyroxi ne 50 mcg tablet 2022-0 28 00:00: 00 Yes [id number] 50ug Take 1 tablet by mouth every morning. [facility] simvastatin 80 mg tablet 2022-0 -28 00:00: 00 Yes [id number] 80mg Take 1 tablet by mouth at bedtime. [facility] levothyroxi ne 50 mcg tablet 2022-0 28 00:00: 00 Yes [id number] 50ug Take 1 tablet by mouth every morning. [facility] simvastatin 80 mg tablet 3-0 2-28 00:00: 00 Yes [id number] 80mg Take 1 tablet by mouth at bedtime. [facility] levothyroxi ne 50 mcg tablet 2022-0 28 00:00: 00 Yes [id number] 50ug Take 1 tablet by mouth every morning. [facility] simvastatin 80 mg tablet 2022-0 28 00:00: 00 Yes [id number] 80mg Take 1 tablet by mouth at bedtime. [facility] levothyroxi ne 50 mcg tablet 2022-0 28 00:00: 00 Yes [id number] 50ug Take 1 tablet by mouth every morning. [facility] simvastatin 80 mg tablet 2022-0 28 00:00: 00 Yes [id number] 80mg Take 1 tablet by mouth at bedtime. [facility] levothyroxi ne 50 mcg tablet 2022-0 28 00:00: 00 Yes [id number] 50ug Take 1 tablet by mouth every morning. [facility] simvastatin 80 mg tablet 3-0 2-28 00:00: 00 Yes [id number] 80mg Take 1 tablet by mouth at bedtime. [facility] levothyroxi ne 50 mcg tablet 2022-0 2-28 00:00: 00 Yes [id number] 50ug Take 1 tablet by mouth every morning. [facility] simvastatin 80 mg tablet 3-0 2-28 00:00: 00 Yes [id number] 80mg Take 1 tablet by mouth at bedtime. [facility] levothyroxi ne 50 mcg tablet 0 09-13 00:00: 00 Yes [id number] 50ug Take 1 tablet by mouth every morning. [facility] simvastatin 80 mg tablet 0 09-13 00:00: 00 Yes [id number] 80mg Take 1 tablet by mouth at bedtime. [facility] levothyroxi ne 50 mcg tablet 0 09-13 00:00: 00 Yes [id number] 50ug Take 1 tablet by mouth every morning. [facility] simvastatin 80 mg tablet 0 09-13 00:00: 00 Yes [id number] 80mg Take 1 tablet by mouth at bedtime. [facility] levothyroxi ne 50 mcg tablet 0 09-13 00:00: 00 Yes [id number] 50ug Take 1 tablet by mouth every morning. [facility] simvastatin 80 mg tablet 0 09-13 00:00: 00 Yes [id number] 80mg Take 1 tablet by mouth at bedtime. [facility] levothyroxi ne 50 mcg tablet 0 09-13 00:00: 00 Yes [id number] 50ug Take 1 tablet by mouth every morning. [facility] simvastatin 80 mg tablet 0 09-13 00:00: 00 Yes [id number] 80mg Take 1 tablet by mouth at bedtime. [facility] levothyroxi ne 50 mcg tablet 0 09-13 00:00: 00 Yes [id number] 50ug Take 1 tablet by mouth every morning. [facility] simvastatin 80 mg tablet 0 09-13 00:00: 00 Yes [id number] 80mg Take 1 tablet by mouth at bedtime. [facility] levothyroxi ne 50 mcg tablet 0 09-13 00:00: 00 Yes [id number] 50ug Take 1 tablet by mouth every morning. [facility] simvastatin 80 mg tablet 2022-0 28 00:00: 00 Yes [id number] 80mg Take 1 tablet by mouth at bedtime. [facility] levothyroxi ne 50 mcg tablet 2022-0 28 00:00: 00 Yes [id number] 50ug Take 1 tablet by mouth every morning. [facility] simvastatin 80 mg tablet 2022-0 28 00:00: 00 Yes [id number] 80mg Take 1 tablet by mouth at bedtime. [facility] levothyroxi ne 50 mcg tablet 2022-0 28 00:00: 00 Yes [id number] 50ug Take 1 tablet by mouth every morning. [facility] simvastatin 80 mg tablet 2022-0 28 00:00: 00 Yes [id number] 80mg Take 1 tablet by mouth at bedtime. [facility] levothyroxi ne 50 mcg tablet 2022-0 28 00:00: 00 Yes [id number] 50ug Take 1 tablet by mouth every morning. [facility] simvastatin 80 mg tablet 2022-0 28 00:00: 00 Yes [id number] 80mg Take 1 tablet by mouth at bedtime. [facility] levothyroxi ne 50 mcg tablet 2022-0 28 00:00: 00 Yes [id number] 50ug Take 1 tablet by mouth every morning. [facility] simvastatin 80 mg tablet 2022-0 28 00:00: 00 Yes [id number] 80mg Take 1 tablet by mouth at bedtime. [facility] levothyroxi ne 50 mcg tablet 2022-0 28 00:00: 00 Yes [id number] 50ug Take 1 tablet by mouth every morning. [facility] simvastatin 80 mg tablet 2022-0 28 00:00: 00 Yes [id number] 80mg Take 1 tablet by mouth at bedtime. [facility] levothyroxi ne 50 mcg tablet 2022-0 28 00:00: 00 Yes [id number] 50ug Take 1 tablet by mouth every morning. [facility] simvastatin 80 mg tablet 3-0 -28 00:00: 00 Yes [id number] 80mg Take 1 tablet by mouth at bedtime. [facility] levothyroxi ne 50 mcg tablet 2022-0 28 00:00: 00 Yes [id number] 50ug Take 1 tablet by mouth every morning. [facility] simvastatin 80 mg tablet 2022-0 28 00:00: 00 Yes [id number] 80mg Take 1 tablet by mouth at bedtime. [facility] levothyroxi ne 50 mcg tablet 2022-0 28 00:00: 00 Yes [id number] 50ug Take 1 tablet by mouth every morning. [facility] simvastatin 80 mg tablet 2022-0 28 00:00: 00 Yes [id number] 80mg Take 1 tablet by mouth at bedtime. [facility] levothyroxi ne 50 mcg tablet 2022-0 28 00:00: 00 Yes [id number] 50ug Take 1 tablet by mouth every morning. [facility] simvastatin 80 mg tablet 2022-0 28 00:00: 00 Yes [id number] 80mg Take 1 tablet by mouth at bedtime. [facility] levothyroxi ne 50 mcg tablet 2022-0 28 00:00: 00 Yes [id number] 50ug Take 1 tablet by mouth every morning. [facility] simvastatin 80 mg tablet 2022-0 28 00:00: 00 Yes [id number] 80mg Take 1 tablet by mouth at bedtime. [facility] levothyroxi ne 50 mcg tablet 2022-0 28 00:00: 00 Yes [id number] 50ug Take 1 tablet by mouth every morning. [facility] simvastatin 80 mg tablet 2022-0 28 00:00: 00 Yes [id number] 80mg Take 1 tablet by mouth at bedtime. [facility] levothyroxi ne 50 mcg tablet 3-0 28 00:00: 00 Yes [id number] 50ug Take 1 tablet by mouth every morning. [facility] simvastatin 80 mg tablet 2022-0 28 00:00: 00 Yes [id number] 80mg Take 1 tablet by mouth at bedtime. [facility] levothyroxi ne 50 mcg tablet 3-0 28 00:00: 00 Yes [id number] 50ug Take 1 tablet by mouth every morning. [facility] simvastatin 80 mg tablet 0 09-13 00:00: 00 Yes [id number] 80mg Take 1 tablet by mouth at bedtime. [facility] levothyroxi ne 50 mcg tablet 0 09-13 00:00: 00 Yes [id number] 50ug Take 1 tablet by mouth every morning. [facility] simvastatin 80 mg tablet 0 09-13 00:00: 00 Yes [id number] 80mg Take 1 tablet by mouth at bedtime. [facility] levothyroxi ne 50 mcg tablet 0 09-13 00:00: 00 Yes [id number] 50ug Take 1 tablet by mouth every morning. [facility] simvastatin 80 mg tablet 0 09-13 00:00: 00 Yes [id number] 80mg Take 1 tablet by mouth at bedtime. [facility] simvastatin 80 mg tablet 0 09-13 00:00: 00 Yes [id number] 80mg Take 1 tablet by mouth at bedtime. [facility] simvastatin 80 mg tablet 0 09-13 00:00: 00 Yes [id number] 80mg Take 1 tablet by mouth at bedtime. [facility] simvastatin 80 mg tablet 0 09-13 00:00: 00 Yes [id number] 80mg Take 1 tablet by mouth at bedtime. [facility] simvastatin 80 mg tablet 0 09-13 00:00: 00 Yes [id number] 80mg Take 1 tablet by mouth at bedtime. [facility] simvastatin 80 mg tablet 2022-0 09-13 00:00: 00 Yes [id number] 80mg Take 1 tablet by mouth at bedtime. [facility] simvastatin 80 mg tablet 2022-0 09-13 00:00: 00 Yes [id number] 80mg Take 1 tablet by mouth at bedtime. [facility] simvastatin 80 mg tablet 2022-0 09-13 00:00: 00 Yes [id number] 80mg Take 1 tablet by mouth at bedtime. [facility] simvastatin 80 mg tablet 2022-0 09-13 00:00: 00 Yes [id number] 80mg Take 1 tablet by mouth at bedtime. [facility] simvastatin 80 mg tablet 3-0 28 00:00: 00 Yes [id number] 80mg Take 1 tablet by mouth at bedtime. [facility] simvastatin 80 mg tablet 2022-0 28 00:00: 00 Yes [id number] 80mg Take 1 tablet by mouth at bedtime. [facility] simvastatin 80 mg tablet 3-0 -28 00:00: 00 Yes [id number] 80mg Take 1 tablet by mouth at bedtime. [facility] simvastatin 80 mg tablet 3-0 28 00:00: 00 Yes [id number] 80mg Take 1 tablet by mouth at bedtime. [facility] simvastatin 80 mg tablet 2022-0 28 00:00: 00 Yes [id number] 80mg Take 1 tablet by mouth at bedtime. [facility] simvastatin 80 mg tablet 2022-0 28 00:00: 00 Yes [id number] 80mg Take 1 tablet by mouth at bedtime. [facility] simvastatin 80 mg tablet 3-0 28 00:00: 00 Yes [id number] 80mg Take 1 tablet by mouth at bedtime. [facility] simvastatin 80 mg tablet 2022-0 28 00:00: 00 Yes [id number] 80mg Take 1 tablet by mouth at bedtime. [facility] simvastatin 80 mg tablet 3-0 28 00:00: 00 Yes [id number] 80mg Take 1 tablet by mouth at bedtime. [facility] simvastatin 80 mg tablet 3-0 2-28 00:00: 00 Yes [id number] 80mg Take 1 tablet by mouth at bedtime. [facility] simvastatin 80 mg tablet 3-0 -28 00:00: 00 Yes [id number] 80mg Take 1 tablet by mouth at bedtime. [facility] simvastatin 80 mg tablet 3-0 2-28 00:00: 00 Yes [id number] 80mg Take 1 tablet by mouth at bedtime. [facility] simvastatin 80 mg tablet 2023-0 2-28 00:00: 00 Yes [id number] 80mg Take 1 tablet by mouth at bedtime. [facility] simvastatin 80 mg tablet 09-13 00:00: 00 Yes [id number] 80mg Take 1 tablet by mouth at bedtime. [facility] simvastatin 80 mg tablet 09-13 00:00: 00 Yes [id number] 80mg Take 1 tablet by mouth at bedtime. [facility] simvastatin 80 mg tablet 09-13 00:00: 00 Yes [id number] 80mg Take 1 tablet by mouth at bedtime. [facility] simvastatin 80 mg tablet 09-13 00:00: 00 Yes [id number] 80mg Take 1 tablet by mouth at bedtime. [facility] simvastatin 80 mg tablet 09-13 00:00: 00 Yes [id number] 80mg Take 1 tablet by mouth at bedtime. [facility] simvastatin 80 mg tablet 09-13 00:00: 00 Yes [id number] 80mg Take 1 tablet by mouth at bedtime. [facility] simvastatin 80 mg tablet 09-13 00:00: 00 Yes [id number] 80mg Take 1 tablet by mouth at bedtime. [facility] simvastatin 80 mg tablet 09-13 00:00: 00 Yes [id number] 80mg Take 1 tablet by mouth at bedtime. [facility] levothyroxi ne 50 mcg tablet 09-13 00:00: 00 01-09 00:00 :00 No [id number] 50ug Take 1 tablet by mouth every morning. [facility] levothyroxi ne 50 mcg tablet 09-13 00:00: 00 01-09 00:00 :00 No [id number] 50ug Take 1 tablet by mouth every morning. [facility] adalimumab (HUMIRA,CF, PEN) 40 mg/0.4 mL injection 2 00:00: 00 Yes [id number] 40mg inject 1 Pen under the skin every 14 (fourteen) days. [facility] adalimumab (HUMIRA,CF, PEN) 40 mg/0.4 mL injection 2023-0 2-10 00:00: 00 Yes [id number] 40mg inject 1 Pen under the skin every 14 (fourteen) days. [facility] adalimumab (HUMIRA,CF, PEN) 40 mg/0.4 mL injection 2023-0 2-10 00:00: 00 Yes [id number] 40mg inject 1 Pen under the skin every 14 (fourteen) days. [facility] adalimumab (HUMIRA,CF, PEN) 40 mg/0.4 mL injection 2023-0 2-10 00:00: 00 Yes [id number] 40mg inject 1 Pen under the skin every 14 (fourteen) days. [facility] adalimumab (HUMIRA,CF, PEN) 40 mg/0.4 mL injection 3-0 2-10 00:00: 00 Yes [id number] 40mg inject 1 Pen under the skin every 14 (fourteen) days. [facility] adalimumab (HUMIRA,CF, PEN) 40 mg/0.4 mL injection 3-0 2-10 00:00: 00 Yes [id number] 40mg inject 1 Pen under the skin every 14 (fourteen) days. [facility] adalimumab (HUMIRA,CF, PEN) 40 mg/0.4 mL injection 3-0 2-10 00:00: 00 Yes [id number] 40mg inject 1 Pen under the skin every 14 (fourteen) days. [facility] adalimumab (HUMIRA,CF, PEN) 40 mg/0.4 mL injection 2023-0 2-10 00:00: 00 Yes [id number] 40mg inject 1 Pen under the skin every 14 (fourteen) days. [facility] adalimumab (HUMIRA,CF, PEN) 40 mg/0.4 mL injection 2023-0 2-10 00:00: 00 Yes [id number] 40mg inject 1 Pen under the skin every 14 (fourteen) days. [facility] adalimumab (HUMIRA,CF, PEN) 40 mg/0.4 mL injection 2023-0 2-10 00:00: 00 Yes [id number] 40mg inject 1 Pen under the skin every 14 (fourteen) days. [facility] adalimumab (HUMIRA,CF, PEN) 40 mg/0.4 mL injection 2022-0 2-10 00:00: 00 Yes [id number] 40mg inject 1 Pen under the skin every 14 (fourteen) days. [facility] adalimumab (HUMIRA,CF, PEN) 40 mg/0.4 mL injection 2022-0 2-10 00:00: 00 Yes [id number] 40mg inject 1 Pen under the skin every 14 (fourteen) days. [facility] adalimumab (HUMIRA,CF, PEN) 40 mg/0.4 mL injection 2022-0 2-10 00:00: 00 Yes [id number] 40mg inject 1 Pen under the skin every 14 (fourteen) days. [facility] adalimumab (HUMIRA,CF, PEN) 40 mg/0.4 mL injection 2022-0 2-10 00:00: 00 Yes [id number] 40mg inject 1 Pen under the skin every 14 (fourteen) days. [facility] adalimumab (HUMIRA,CF, PEN) 40 mg/0.4 mL injection 2022-0 2-10 00:00: 00 Yes [id number] 40mg inject 1 Pen under the skin every 14 (fourteen) days. [facility] adalimumab (HUMIRA,CF, PEN) 40 mg/0.4 mL injection 2022-0 2-10 00:00: 00 Yes [id number] 40mg inject 1 Pen under the skin every 14 (fourteen) days. [facility] adalimumab (HUMIRA,CF, PEN) 40 mg/0.4 mL injection 3-0 2-10 00:00: 00 Yes [id number] 40mg inject 1 Pen under the skin every 14 (fourteen) days. [facility] adalimumab (HUMIRA,CF, PEN) 40 mg/0.4 mL injection 3-0 2-10 00:00: 00 Yes [id number] 40mg inject 1 Pen under the skin every 14 (fourteen) days. [facility] adalimumab (HUMIRA,CF, PEN) 40 mg/0.4 mL injection 2-10 00:00: 00 Yes [id number] 40mg inject 1 Pen under the skin every 14 (fourteen) days. [facility] adalimumab (HUMIRA,CF, PEN) 40 mg/0.4 mL injection 2-10 00:00: 00 Yes [id number] 40mg inject 1 Pen under the skin every 14 (fourteen) days. [facility] adalimumab (HUMIRA,CF, PEN) 40 mg/0.4 mL injection 2-10 00:00: 00 Yes [id number] 40mg inject 1 Pen under the skin every 14 (fourteen) days. [facility] adalimumab (HUMIRA,CF, PEN) 40 mg/0.4 mL injection 2-10 00:00: 00 Yes [id number] 40mg inject 1 Pen under the skin every 14 (fourteen) days. [facility] adalimumab (HUMIRA,CF, PEN) 40 mg/0.4 mL injection 210 00:00: 00 Yes [id number] 40mg inject 1 Pen under the skin every 14 (fourteen) days. [facility] adalimumab (HUMIRA,CF, PEN) 40 mg/0.4 mL injection 10 00:00: 00 11-21 00:00 :00 No [id number] 40mg inject 1 Pen under the skin every 14 (fourteen) days. [facility] aspirin 81 mg EC tablet 07-20 09:15: 37 Yes 81mg Take 81 mg by mouth in the morning. [facility] simvastatin 80 mg tablet 07-20 09:15: 37 Yes 80mg Take 80 mg by mouth at bedtime. [facility] empaglifloz in-metformi n (SYNJARDY) 5-1,000 mg Tab 07-20 09:15: 37 Yes Take by mouth 2 (two) times daily. [facility] aspirin 81 mg EC tablet 07-20 09:15: 37 Yes 81mg Take 81 mg by mouth in the morning. [facility] simvastatin 80 mg tablet 07-20 09:15: 37 Yes 80mg Take 80 mg by mouth at bedtime. [facility] empaglifloz in-metformi n (SYNJARDY) 5-1,000 mg Tab 07-20 09:15: 37 Yes Take by mouth 2 (two) times daily. [facility] aspirin 81 mg EC tablet 07-20 09:15: 37 Yes 81mg Take 81 mg by mouth in the morning. [facility] simvastatin 80 mg tablet 07-20 09:15: 37 Yes 80mg Take 80 mg by mouth at bedtime. [facility] empaglifloz in-metformi n (SYNJARDY) 5-1,000 mg Tab 07-20 09:15: 37 Yes Take by mouth 2 (two) times daily. [facility] aspirin 81 mg EC tablet 07-20 09:15: 37 Yes 81mg Take 81 mg by mouth in the morning. [facility] simvastatin 80 mg tablet 07-20 09:15: 37 Yes 80mg Take 80 mg by mouth at bedtime. [facility] empaglifloz in-metformi n (SYNJARDY) 5-1,000 mg Tab 07-20 09:15: 37 Yes Take by mouth 2 (two) times daily. [facility] aspirin 81 mg EC tablet 07-20 09:15: 37 Yes 81mg Take 81 mg by mouth in the morning. [facility] simvastatin 80 mg tablet 07-20 09:15: 37 Yes 80mg Take 80 mg by mouth at bedtime. [facility] empaglifloz in-metformi n (SYNJARDY) 5-1,000 mg Tab 07-20 09:15: 37 Yes Take by mouth 2 (two) times daily. [facility] aspirin 81 mg EC tablet 07-20 09:15: 37 Yes 81mg Take 81 mg by mouth in the morning. [facility] simvastatin 80 mg tablet 07-20 09:15: 37 Yes 80mg Take 80 mg by mouth at bedtime. [facility] empaglifloz in-metformi n (SYNJARDY) 5-1,000 mg Tab 07-20 09:15: 37 Yes Take by mouth 2 (two) times daily. [facility] aspirin 81 mg EC tablet 0 07-20 09:15: 37 Yes 81mg Take 81 mg by mouth in the morning. [facility] empaglifloz in-metformi n (SYNJARDY) 5-1,000 mg Tab 07-20 09:15: 37 Yes Take by mouth 2 (two) times daily. [facility] aspirin 81 mg EC tablet 0 07-20 09:15: 37 Yes 81mg Take 81 mg by mouth in the morning. [facility] aspirin 81 mg EC tablet 0 07-20 09:15: 37 Yes 81mg Take 81 mg by mouth in the morning. [facility] aspirin 81 mg EC tablet 0 07-20 09:15: 37 Yes 81mg Take 81 mg by mouth in the morning. [facility] aspirin 81 mg EC tablet 0 07-20 09:15: 37 Yes 81mg Take 81 mg by mouth in the morning. [facility] aspirin 81 mg EC tablet 0 07-20 09:15: 37 Yes 81mg Take 81 mg by mouth in the morning. [facility] aspirin 81 mg EC tablet 0 07-20 09:15: 37 Yes 81mg Take 81 mg by mouth in the morning. [facility] aspirin 81 mg EC tablet 3-0 07-20 09:15: 37 Yes 81mg Take 81 mg by mouth in the morning. [facility] aspirin 81 mg EC tablet 0 07-20 09:15: 37 Yes 81mg Take 81 mg by mouth in the morning. [facility] aspirin 81 mg EC tablet 3-0 07-20 09:15: 37 Yes 81mg Take 81 mg by mouth in the morning. [facility] aspirin 81 mg EC tablet 30 07-20 09:15: 37 Yes 81mg Take 81 mg by mouth in the morning. [facility] aspirin 81 mg EC tablet 3-0 07-20 09:15: 37 Yes 81mg Take 81 mg by mouth in the morning. [facility] aspirin 81 mg EC tablet 3-0 07-20 09:15: 37 Yes 81mg Take 81 mg by mouth in the morning. [facility] aspirin 81 mg EC tablet 0 07-20 09:15: 37 Yes 81mg Take 81 mg by mouth in the morning. [facility] aspirin 81 mg EC tablet 3-0 07-20 09:15: 37 Yes 81mg Take 81 mg by mouth in the morning. [facility] aspirin 81 mg EC tablet 30 07-20 09:15: 37 Yes 81mg Take 81 mg by mouth in the morning. [facility] aspirin 81 mg EC tablet 30 07-20 09:15: 37 Yes 81mg Take 81 mg by mouth in the morning. [facility] aspirin 81 mg EC tablet 30 07-20 09:15: 37 Yes 81mg Take 81 mg by mouth in the morning. [facility] aspirin 81 mg EC tablet 0 07-20 09:15: 37 Yes 81mg Take 81 mg by mouth in the morning. [facility] aspirin 81 mg EC tablet 30 07-20 09:15: 37 Yes 81mg Take 81 mg by mouth in the morning. [facility] aspirin 81 mg EC tablet 3-0 07-20 09:15: 37 Yes 81mg Take 81 mg by mouth in the morning. [facility] aspirin 81 mg EC tablet 3-0 07-20 09:15: 37 Yes 81mg Take 81 mg by mouth in the morning. [facility] aspirin 81 mg EC tablet 3-0 07-20 09:15: 37 Yes 81mg Take 81 mg by mouth in the morning. [facility] aspirin 81 mg EC tablet 3-0 07-20 09:15: 37 Yes 81mg Take 81 mg by mouth in the morning. [facility] aspirin 81 mg EC tablet 3-0 07-20 09:15: 37 Yes 81mg Take 81 mg by mouth in the morning. [facility] aspirin 81 mg EC tablet 0 07-20 09:15: 37 Yes 81mg Take 81 mg by mouth in the morning. [facility] aspirin 81 mg EC tablet 30 07-20 09:15: 37 Yes 81mg Take 81 mg by mouth in the morning. [facility] aspirin 81 mg EC tablet 30 07-20 09:15: 37 Yes 81mg Take 81 mg by mouth in the morning. [facility] aspirin 81 mg EC tablet 0 07-20 09:15: 37 Yes 81mg Take 81 mg by mouth in the morning. [facility] aspirin 81 mg EC tablet 30 07-20 09:15: 37 Yes 81mg Take 81 mg by mouth in the morning. [facility] aspirin 81 mg EC tablet 30 07-20 09:15: 37 Yes 81mg Take 81 mg by mouth in the morning. [facility] aspirin 81 mg EC tablet 3-0 07-20 09:15: 37 Yes 81mg Take 81 mg by mouth in the morning. [facility] aspirin 81 mg EC tablet 0 07-20 09:15: 37 Yes 81mg Take 81 mg by mouth in the morning. [facility] aspirin 81 mg EC tablet 3-0 07-20 09:15: 37 Yes 81mg Take 81 mg by mouth in the morning. [facility] aspirin 81 mg EC tablet 3-0 07-20 09:15: 37 Yes 81mg Take 81 mg by mouth in the morning. [facility] aspirin 81 mg EC tablet 3-0 07-20 09:15: 37 Yes 81mg Take 81 mg by mouth in the morning. [facility] aspirin 81 mg EC tablet 3-0 07-20 09:15: 37 Yes 81mg Take 81 mg by mouth in the morning. [facility] aspirin 81 mg EC tablet 3-0 07-20 09:15: 37 Yes 81mg Take 81 mg by mouth in the morning. [facility] aspirin 81 mg EC tablet 30 07-20 09:15: 37 Yes 81mg Take 81 mg by mouth in the morning. [facility] aspirin 81 mg EC tablet 0 07-20 09:15: 37 Yes 81mg Take 81 mg by mouth in the morning. [facility] aspirin 81 mg EC tablet 3-0 07-20 09:15: 37 Yes 81mg Take 81 mg by mouth in the morning. [facility] aspirin 81 mg EC tablet 3-0 07-20 09:15: 37 Yes 81mg Take 81 mg by mouth in the morning. [facility] aspirin 81 mg EC tablet 3-0 07-20 09:15: 37 Yes 81mg Take 81 mg by mouth in the morning. [facility] aspirin 81 mg EC tablet 0 07-20 09:15: 37 Yes 81mg Take 81 mg by mouth in the morning. [facility] aspirin 81 mg EC tablet 0 07-20 09:15: 37 Yes 81mg Take 81 mg by mouth in the morning. [facility] aspirin 81 mg EC tablet 30 07-20 09:15: 37 Yes 81mg Take 81 mg by mouth in the morning. [facility] aspirin 81 mg EC tablet 30 07-20 09:15: 37 Yes 81mg Take 81 mg by mouth in the morning. [facility] aspirin 81 mg EC tablet 2022-0 07-20 09:15: 37 Yes 81mg Take 81 mg by mouth in the morning. [facility] aspirin 81 mg EC tablet 3-0 07-20 09:15: 37 Yes 81mg Take 81 mg by mouth in the morning. [facility] aspirin 81 mg EC tablet 3-0 07-20 09:15: 37 Yes 81mg Take 81 mg by mouth in the morning. [facility] aspirin 81 mg EC tablet 3-0 07-20 09:15: 37 Yes 81mg Take 81 mg by mouth in the morning. [facility] aspirin 81 mg EC tablet 3-0 07-20 09:15: 37 Yes 81mg Take 81 mg by mouth in the morning. [facility] aspirin 81 mg EC tablet 0 07-20 09:15: 37 Yes 81mg Take 81 mg by mouth in the morning. [facility] aspirin 81 mg EC tablet 0 07-20 09:15: 37 Yes 81mg Take 81 mg by mouth in the morning. [facility] aspirin 81 mg EC tablet 0 07-20 09:15: 37 Yes 81mg Take 81 mg by mouth in the morning. [facility] aspirin 81 mg EC tablet 0 07-20 09:15: 37 Yes 81mg Take 81 mg by mouth in the morning. [facility] aspirin 81 mg EC tablet 0 07-20 09:15: 37 Yes 81mg Take 81 mg by mouth in the morning. [facility] aspirin 81 mg EC tablet 0 07-20 09:15: 37 Yes 81mg Take 81 mg by mouth in the morning. [facility] aspirin 81 mg EC tablet 0 07-20 09:15: 37 Yes 81mg Take 81 mg by mouth in the morning. [facility] aspirin 81 mg EC tablet 0 07-20 09:15: 37 Yes 81mg Take 81 mg by mouth in the morning. [facility] aspirin 81 mg EC tablet 0 07-20 09:15: 37 Yes 81mg Take 81 mg by mouth in the morning. [facility] aspirin 81 mg EC tablet 0 07-20 09:15: 37 Yes 81mg Take 81 mg by mouth in the morning. [facility] aspirin 81 mg EC tablet 0 07-20 09:15: 37 Yes 81mg Take 81 mg by mouth in the morning. [facility] aspirin 81 mg EC tablet 0 07-20 09:15: 37 Yes 81mg Take 81 mg by mouth in the morning. [facility] aspirin 81 mg EC tablet 2022-0 07-20 09:15: 37 Yes 81mg Take 81 mg by mouth in the morning. [facility] celecoxib (CELEBREX) 200 mg capsule 03-09 00:00: 00 04-09 04:59 :00 No [id number] 200mg Take 1 capsule by mouth in the morning for 30 days. [facility] celecoxib (CELEBREX) 200 mg capsule 03-09 00:00: 00 04-09 04:59 :00 No [id number] 200mg Take 1 capsule by mouth in the morning for 30 days. [facility] celecoxib (CELEBREX) 200 mg capsule 03-09 00:00: 00 04-09 04:59 :00 No [id number] 200mg Take 1 capsule by mouth in the morning for 30 days. [facility] celecoxib (CELEBREX) 200 mg capsule 03-09 00:00: 00 04-09 04:59 :00 No [id number] 200mg Take 1 capsule by mouth in the morning for 30 days. [facility] adalimumab (HUMIRA,CF, PEN) 40 mg/0.4 mL injection 03-07 00:00: 00 Yes [id number] 40mg inject 1 Pen under the skin every 14 (fourteen) days. [facility] adalimumab (HUMIRA,CF, PEN) 40 mg/0.4 mL injection 03-07 00:00: 00 Yes [id number] 40mg inject 1 Pen under the skin every 14 (fourteen) days. [facility] adalimumab (HUMIRA,CF, PEN) 40 mg/0.4 mL injection 03-07 00:00: 00 Yes [id number] 40mg inject 1 Pen under the skin every 14 (fourteen) days. [facility] adalimumab (HUMIRA,CF, PEN) 40 mg/0.4 mL injection 03-07 00:00: 00 Yes [id number] 40mg inject 1 Pen under the skin every 14 (fourteen) days. [facility] adalimumab (HUMIRA,CF, PEN) 40 mg/0.4 mL injection 03-07 00:00: 00 Yes [id number] 40mg inject 1 Pen under the skin every 14 (fourteen) days. [facility] adalimumab (HUMIRA,CF, PEN) 40 mg/0.4 mL injection 03-07 00:00: 00 Yes [id number] 40mg inject 1 Pen under the skin every 14 (fourteen) days. [facility] adalimumab (HUMIRA,CF, PEN) 40 mg/0.4 mL injection 03-07 00:00: 00 Yes [id number] 40mg inject 1 Pen under the skin every 14 (fourteen) days. [facility] adalimumab (HUMIRA,CF, PEN) 40 mg/0.4 mL injection 03-07 00:00: 00 Yes [id number] 40mg inject 1 Pen under the skin every 14 (fourteen) days. [facility] adalimumab (HUMIRA,CF, PEN) 40 mg/0.4 mL injection 03-07 00:00: 00 Yes [id number] 40mg inject 1 Pen under the skin every 14 (fourteen) days. [facility] adalimumab (HUMIRA,CF, PEN) 40 mg/0.4 mL injection 03-07 00:00: 00 Yes [id number] 40mg inject 1 Pen under the skin every 14 (fourteen) days. [facility] adalimumab (HUMIRA,CF, PEN) 40 mg/0.4 mL injection 03-07 00:00: 00 Yes [id number] 40mg inject 1 Pen under the skin every 14 (fourteen) days. [facility] adalimumab (HUMIRA,CF, PEN) 40 mg/0.4 mL injection 2021-0 03-07 00:00: 00 Yes [id number] 40mg inject 1 Pen under the skin every 14 (fourteen) days. [facility] adalimumab (HUMIRA,CF, PEN) 40 mg/0.4 mL injection 2021-0 03-07 00:00: 00 Yes [id number] 40mg inject 1 Pen under the skin every 14 (fourteen) days. [facility] adalimumab (HUMIRA,CF, PEN) 40 mg/0.4 mL injection 03-07 00:00: 00 Yes [id number] 40mg inject 1 Pen under the skin every 14 (fourteen) days. [facility] adalimumab (HUMIRA,CF, PEN) 40 mg/0.4 mL injection 03-07 00:00: 00 Yes [id number] 40mg inject 1 Pen under the skin every 14 (fourteen) days. [facility] adalimumab (HUMIRA,CF, PEN) 40 mg/0.4 mL injection 03-07 00:00: 00 Yes [id number] 40mg inject 1 Pen under the skin every 14 (fourteen) days. [facility] adalimumab (HUMIRA,CF, PEN) 40 mg/0.4 mL injection 03-07 00:00: 00 Yes [id number] 40mg inject 1 Pen under the skin every 14 (fourteen) days. [facility] adalimumab (HUMIRA,CF, PEN) 40 mg/0.4 mL injection 03-07 00:00: 00 Yes [id number] 40mg inject 1 Pen under the skin every 14 (fourteen) days. [facility] adalimumab (HUMIRA,CF, PEN) 40 mg/0.4 mL injection 03-07 00:00: 00 Yes [id number] 40mg inject 1 Pen under the skin every 14 (fourteen) days. [facility] adalimumab (HUMIRA,CF, PEN) 40 mg/0.4 mL injection 03-07 00:00: 00 Yes [id number] 40mg inject 1 Pen under the skin every 14 (fourteen) days. [facility] adalimumab (HUMIRA,CF, PEN) 40 mg/0.4 mL injection 03-07 00:00: 00 Yes [id number] 40mg inject 1 Pen under the skin every 14 (fourteen) days. [facility] adalimumab (HUMIRA,CF, PEN) 40 mg/0.4 mL injection 03-07 00:00: 00 Yes [id number] 40mg inject 1 Pen under the skin every 14 (fourteen) days. [facility] adalimumab (HUMIRA,CF, PEN) 40 mg/0.4 mL injection 03-07 00:00: 00 Yes [id number] 40mg inject 1 Pen under the skin every 14 (fourteen) days. [facility] adalimumab (HUMIRA,CF, PEN) 40 mg/0.4 mL injection 03-07 00:00: 00 Yes [id number] 40mg inject 1 Pen under the skin every 14 (fourteen) days. [facility] adalimumab (HUMIRA,CF, PEN) 40 mg/0.4 mL injection 03-07 00:00: 00 Yes [id number] 40mg inject 1 Pen under the skin every 14 (fourteen) days. [facility] adalimumab (HUMIRA,CF, PEN) 40 mg/0.4 mL injection 03-07 00:00: 00 Yes [id number] 40mg inject 1 Pen under the skin every 14 (fourteen) days. [facility] adalimumab (HUMIRA,CF, PEN) 40 mg/0.4 mL injection 03-07 00:00: 00 08-24 00:00 :00 No [id number] 40mg inject 1 Pen under the skin every 14 (fourteen) days. [facility] blood sugar diagnostic (ACCU-CHEK GUIDE TEST STRIPS) strip 02-27 00:00: 00 Yes [id number] Use Daily. Dx E11.9 [facility] blood sugar diagnostic (ACCU-CHEK GUIDE TEST STRIPS) strip 8 00:00: 00 Yes [id number] Use Daily. Dx E11.9 [facility] blood sugar diagnostic (ACCU-CHEK GUIDE TEST STRIPS) strip 0 8 00:00: 00 Yes [id number] Use Daily. Dx E11.9 [facility] blood sugar diagnostic (ACCU-CHEK GUIDE TEST STRIPS) strip 8 00:00: 00 Yes [id number] Use Daily. Dx E11.9 [facility] blood sugar diagnostic (ACCU-CHEK GUIDE TEST STRIPS) strip 2022-0 8-14 00:00: 00 Yes [id number] Use Daily. Dx E11.9 [facility] blood sugar diagnostic (ACCU-CHEK GUIDE TEST STRIPS) strip 2021-0 8-14 00:00: 00 Yes [id number] Use Daily. Dx E11.9 [facility] blood sugar diagnostic (ACCU-CHEK GUIDE TEST STRIPS) strip 2021-0 8-14 00:00: 00 Yes [id number] Use Daily. Dx E11.9 [facility] blood sugar diagnostic (ACCU-CHEK GUIDE TEST STRIPS) strip 2021-0 8-14 00:00: 00 Yes [id number] Use Daily. Dx E11.9 [facility] blood sugar diagnostic (ACCU-CHEK GUIDE TEST STRIPS) strip 2021-0 8-14 00:00: 00 Yes [id number] Use Daily. Dx E11.9 [facility] blood sugar diagnostic (ACCU-CHEK GUIDE TEST STRIPS) strip 2021-0 8-14 00:00: 00 Yes [id number] Use Daily. Dx E11.9 [facility] blood sugar diagnostic (ACCU-CHEK GUIDE TEST STRIPS) strip 2021-0 8-14 00:00: 00 Yes [id number] Use Daily. Dx E11.9 [facility] blood sugar diagnostic (ACCU-CHEK GUIDE TEST STRIPS) strip 2021-0 8-14 00:00: 00 Yes [id number] Use Daily. Dx E11.9 [facility] blood sugar diagnostic (ACCU-CHEK GUIDE TEST STRIPS) strip 2021-0 8-14 00:00: 00 Yes [id number] Use Daily. Dx E11.9 [facility] blood sugar diagnostic (ACCU-CHEK GUIDE TEST STRIPS) strip 2021-0 8-14 00:00: 00 Yes [id number] Use Daily. Dx E11.9 [facility] blood sugar diagnostic (ACCU-CHEK GUIDE TEST STRIPS) strip 2-0 8-14 00:00: 00 Yes [id number] Use Daily. Dx E11.9 [facility] blood sugar diagnostic (ACCU-CHEK GUIDE TEST STRIPS) strip 2021-0 8-14 00:00: 00 Yes [id number] Use Daily. Dx E11.9 [facility] blood sugar diagnostic (ACCU-CHEK GUIDE TEST STRIPS) strip 2021-0 8-14 00:00: 00 Yes [id number] Use Daily. Dx E11.9 [facility] blood sugar diagnostic (ACCU-CHEK GUIDE TEST STRIPS) strip 2-0 8-14 00:00: 00 Yes [id number] Use Daily. Dx E11.9 [facility] blood sugar diagnostic (ACCU-CHEK GUIDE TEST STRIPS) strip 2021-0 8-14 00:00: 00 Yes [id number] Use Daily. Dx E11.9 [facility] blood sugar diagnostic (ACCU-CHEK GUIDE TEST STRIPS) strip 2021-0 8-14 00:00: 00 Yes [id number] Use Daily. Dx E11.9 [facility] blood sugar diagnostic (ACCU-CHEK GUIDE TEST STRIPS) strip 2021-0 8-14 00:00: 00 Yes [id number] Use Daily. Dx E11.9 [facility] blood sugar diagnostic (ACCU-CHEK GUIDE TEST STRIPS) strip 2021-0 8-14 00:00: 00 Yes [id number] Use Daily. Dx E11.9 [facility] blood sugar diagnostic (ACCU-CHEK GUIDE TEST STRIPS) strip 2021-0 8-14 00:00: 00 Yes [id number] Use Daily. Dx E11.9 [facility] blood sugar diagnostic (ACCU-CHEK GUIDE TEST STRIPS) strip 2021-0 8-14 00:00: 00 Yes [id number] Use Daily. Dx E11.9 [facility] blood sugar diagnostic (ACCU-CHEK GUIDE TEST STRIPS) strip 2-0 8-14 00:00: 00 Yes [id number] Use Daily. Dx E11.9 [facility] blood sugar diagnostic (ACCU-CHEK GUIDE TEST STRIPS) strip 2-0 8-14 00:00: 00 Yes [id number] Use Daily. Dx E11.9 [facility] blood sugar diagnostic (ACCU-CHEK GUIDE TEST STRIPS) strip 2-0 8-14 00:00: 00 Yes [id number] Use Daily. Dx E11.9 [facility] blood sugar diagnostic (ACCU-CHEK GUIDE TEST STRIPS) strip 2021-0 8-14 00:00: 00 Yes [id number] Use Daily. Dx E11.9 [facility] blood sugar diagnostic (ACCU-CHEK GUIDE TEST STRIPS) strip 2-0 8-14 00:00: 00 Yes [id number] Use Daily. Dx E11.9 [facility] blood sugar diagnostic (ACCU-CHEK GUIDE TEST STRIPS) strip 2021-0 8-14 00:00: 00 Yes [id number] Use Daily. Dx E11.9 [facility] blood sugar diagnostic (ACCU-CHEK GUIDE TEST STRIPS) strip 2021-0 8-14 00:00: 00 Yes [id number] Use Daily. Dx E11.9 [facility] blood sugar diagnostic (ACCU-CHEK GUIDE TEST STRIPS) strip 2021-0 8-14 00:00: 00 Yes [id number] Use Daily. Dx E11.9 [facility] blood sugar diagnostic (ACCU-CHEK GUIDE TEST STRIPS) strip 2021-0 8-14 00:00: 00 Yes [id number] Use Daily. Dx E11.9 [facility] blood sugar diagnostic (ACCU-CHEK GUIDE TEST STRIPS) strip 2021-0 8-14 00:00: 00 Yes [id number] Use Daily. Dx E11.9 [facility] blood sugar diagnostic (ACCU-CHEK GUIDE TEST STRIPS) strip 2-0 8-14 00:00: 00 Yes [id number] Use Daily. Dx E11.9 [facility] blood sugar diagnostic (ACCU-CHEK GUIDE TEST STRIPS) strip 2-0 8-14 00:00: 00 Yes [id number] Use Daily. Dx E11.9 [facility] blood sugar diagnostic (ACCU-CHEK GUIDE TEST STRIPS) strip 2-0 8-14 00:00: 00 Yes [id number] Use Daily. Dx E11.9 [facility] blood sugar diagnostic (ACCU-CHEK GUIDE TEST STRIPS) strip 2-0 8-14 00:00: 00 Yes [id number] Use Daily. Dx E11.9 [facility] blood sugar diagnostic (ACCU-CHEK GUIDE TEST STRIPS) strip 2-0 8-14 00:00: 00 Yes [id number] Use Daily. Dx E11.9 [facility] blood sugar diagnostic (ACCU-CHEK GUIDE TEST STRIPS) strip 2-0 8-14 00:00: 00 Yes [id number] Use Daily. Dx E11.9 [facility] blood sugar diagnostic (ACCU-CHEK GUIDE TEST STRIPS) strip 2021-0 8-14 00:00: 00 Yes [id number] Use Daily. Dx E11.9 [facility] blood sugar diagnostic (ACCU-CHEK GUIDE TEST STRIPS) strip 2021-0 8-14 00:00: 00 Yes [id number] Use Daily. Dx E11.9 [facility] blood sugar diagnostic (ACCU-CHEK GUIDE TEST STRIPS) strip 2021-0 8-14 00:00: 00 Yes [id number] Use Daily. Dx E11.9 [facility] blood sugar diagnostic (ACCU-CHEK GUIDE TEST STRIPS) strip 2021-0 8-14 00:00: 00 Yes [id number] Use Daily. Dx E11.9 [facility] blood sugar diagnostic (ACCU-CHEK GUIDE TEST STRIPS) strip 2021-0 8-14 00:00: 00 Yes [id number] Use Daily. Dx E11.9 [facility] blood sugar diagnostic (ACCU-CHEK GUIDE TEST STRIPS) strip 2-0 8-14 00:00: 00 Yes [id number] Use Daily. Dx E11.9 [facility] blood sugar diagnostic (ACCU-CHEK GUIDE TEST STRIPS) strip 2-0 8-14 00:00: 00 Yes [id number] Use Daily. Dx E11.9 [facility] blood sugar diagnostic (ACCU-CHEK GUIDE TEST STRIPS) strip 2-0 8-14 00:00: 00 Yes [id number] Use Daily. Dx E11.9 [facility] blood sugar diagnostic (ACCU-CHEK GUIDE TEST STRIPS) strip 2-0 8-14 00:00: 00 Yes [id number] Use Daily. Dx E11.9 [facility] blood sugar diagnostic (ACCU-CHEK GUIDE TEST STRIPS) strip 2021-0 8-14 00:00: 00 Yes [id number] Use Daily. Dx E11.9 [facility] blood sugar diagnostic (ACCU-CHEK GUIDE TEST STRIPS) strip 2021-0 8-14 00:00: 00 Yes [id number] Use Daily. Dx E11.9 [facility] blood sugar diagnostic (ACCU-CHEK GUIDE TEST STRIPS) strip 2021-0 8-14 00:00: 00 Yes [id number] Use Daily. Dx E11.9 [facility] blood sugar diagnostic (ACCU-CHEK GUIDE TEST STRIPS) strip 2021-0 8-14 00:00: 00 Yes [id number] Use Daily. Dx E11.9 [facility] blood sugar diagnostic (ACCU-CHEK GUIDE TEST STRIPS) strip 2021-0 8-14 00:00: 00 Yes [id number] Use Daily. Dx E11.9 [facility] blood sugar diagnostic (ACCU-CHEK GUIDE TEST STRIPS) strip 2021-0 8-14 00:00: 00 Yes [id number] Use Daily. Dx E11.9 [facility] blood sugar diagnostic (ACCU-CHEK GUIDE TEST STRIPS) strip 2021-0 8-14 00:00: 00 Yes [id number] Use Daily. Dx E11.9 [facility] blood sugar diagnostic (ACCU-CHEK GUIDE TEST STRIPS) strip 2-0 8-14 00:00: 00 Yes [id number] Use Daily. Dx E11.9 [facility] blood sugar diagnostic (ACCU-CHEK GUIDE TEST STRIPS) strip 2021-0 8-14 00:00: 00 Yes [id number] Use Daily. Dx E11.9 [facility] blood sugar diagnostic (ACCU-CHEK GUIDE TEST STRIPS) strip 2021-0 8-14 00:00: 00 Yes [id number] Use Daily. Dx E11.9 [facility] blood sugar diagnostic (ACCU-CHEK GUIDE TEST STRIPS) strip 2-0 8-14 00:00: 00 Yes [id number] Use Daily. Dx E11.9 [facility] blood sugar diagnostic (ACCU-CHEK GUIDE TEST STRIPS) strip 2-0 8-14 00:00: 00 Yes [id number] Use Daily. Dx E11.9 [facility] blood sugar diagnostic (ACCU-CHEK GUIDE TEST STRIPS) strip 2021-0 8-14 00:00: 00 Yes [id number] Use Daily. Dx E11.9 [facility] blood sugar diagnostic (ACCU-CHEK GUIDE TEST STRIPS) strip 2021-0 8-14 00:00: 00 Yes [id number] Use Daily. Dx E11.9 [facility] blood sugar diagnostic (ACCU-CHEK GUIDE TEST STRIPS) strip 2021-0 8-14 00:00: 00 Yes [id number] Use Daily. Dx E11.9 [facility] blood sugar diagnostic (ACCU-CHEK GUIDE TEST STRIPS) strip 2021-0 8-14 00:00: 00 Yes [id number] Use Daily. Dx E11.9 [facility] blood sugar diagnostic (ACCU-CHEK GUIDE TEST STRIPS) strip 2021-0 8-14 00:00: 00 Yes [id number] Use Daily. Dx E11.9 [facility] blood sugar diagnostic (ACCU-CHEK GUIDE TEST STRIPS) strip 2021-0 8-14 00:00: 00 Yes [id number] Use Daily. Dx E11.9 [facility] blood sugar diagnostic (ACCU-CHEK GUIDE TEST STRIPS) strip 2-0 8-14 00:00: 00 Yes [id number] Use Daily. Dx E11.9 [facility] blood sugar diagnostic (ACCU-CHEK GUIDE TEST STRIPS) strip 2021-0 8-14 00:00: 00 Yes [id number] Use Daily. Dx E11.9 [facility] blood sugar diagnostic (ACCU-CHEK GUIDE TEST STRIPS) strip 2-0 8-14 00:00: 00 Yes [id number] Use Daily. Dx E11.9 [facility] blood sugar diagnostic (ACCU-CHEK GUIDE TEST STRIPS) strip 2-0 8-14 00:00: 00 Yes [id number] Use Daily. Dx E11.9 [facility] blood sugar diagnostic (ACCU-CHEK GUIDE TEST STRIPS) strip 2-0 8-14 00:00: 00 Yes [id number] Use Daily. Dx E11.9 [facility] blood sugar diagnostic (ACCU-CHEK GUIDE TEST STRIPS) strip 2021-0 8-14 00:00: 00 Yes [id number] Use Daily. Dx E11.9 [facility] blood sugar diagnostic (ACCU-CHEK GUIDE TEST STRIPS) strip 2-0 8-14 00:00: 00 Yes [id number] Use Daily. Dx E11.9 [facility] blood sugar diagnostic (ACCU-CHEK GUIDE TEST STRIPS) strip 2021-0 8-14 00:00: 00 Yes [id number] Use Daily. Dx E11.9 [facility] blood sugar diagnostic (ACCU-CHEK GUIDE TEST STRIPS) strip 2021-0 8-14 00:00: 00 Yes [id number] Use Daily. Dx E11.9 [facility] blood sugar diagnostic (ACCU-CHEK GUIDE TEST STRIPS) strip 2021-0 8-14 00:00: 00 Yes [id number] Use Daily. Dx E11.9 [facility] blood sugar diagnostic (ACCU-CHEK GUIDE TEST STRIPS) strip 2021-0 8-14 00:00: 00 Yes [id number] Use Daily. Dx E11.9 [facility] blood sugar diagnostic (ACCU-CHEK GUIDE TEST STRIPS) strip 2-0 8-14 00:00: 00 Yes [id number] Use Daily. Dx E11.9 [facility] blood sugar diagnostic (ACCU-CHEK GUIDE TEST STRIPS) strip 2021-0 8-14 00:00: 00 Yes [id number] Use Daily. Dx E11.9 [facility] blood sugar diagnostic (ACCU-CHEK GUIDE TEST STRIPS) strip 2-0 8-14 00:00: 00 Yes [id number] Use Daily. Dx E11.9 [facility] blood sugar diagnostic (ACCU-CHEK GUIDE TEST STRIPS) strip 2-0 8-14 00:00: 00 Yes [id number] Use Daily. Dx E11.9 [facility] blood sugar diagnostic (ACCU-CHEK GUIDE TEST STRIPS) strip 2-0 8-14 00:00: 00 Yes [id number] Use Daily. Dx E11.9 [facility] blood sugar diagnostic (ACCU-CHEK GUIDE TEST STRIPS) strip 2021-0 8-14 00:00: 00 Yes [id number] Use Daily. Dx E11.9 [facility] blood sugar diagnostic (ACCU-CHEK GUIDE TEST STRIPS) strip 2-0 8-14 00:00: 00 Yes [id number] Use Daily. Dx E11.9 [facility] blood sugar diagnostic (ACCU-CHEK GUIDE TEST STRIPS) strip 2-0 8-14 00:00: 00 Yes [id number] Use Daily. Dx E11.9 [facility] blood sugar diagnostic (ACCU-CHEK GUIDE TEST STRIPS) strip 2021-0 8-14 00:00: 00 Yes [id number] Use Daily. Dx E11.9 [facility] blood sugar diagnostic (ACCU-CHEK GUIDE TEST STRIPS) strip 2021-0 8-14 00:00: 00 Yes [id number] Use Daily. Dx E11.9 [facility] blood sugar diagnostic (ACCU-CHEK GUIDE TEST STRIPS) strip 2021-0 8-14 00:00: 00 Yes [id number] Use Daily. Dx E11.9 [facility] blood sugar diagnostic (ACCU-CHEK GUIDE TEST STRIPS) strip 2-0 8-14 00:00: 00 Yes [id number] Use Daily. Dx E11.9 [facility] blood sugar diagnostic (ACCU-CHEK GUIDE TEST STRIPS) strip 2-0 8-14 00:00: 00 Yes [id number] Use Daily. Dx E11.9 [facility] blood sugar diagnostic (ACCU-CHEK GUIDE TEST STRIPS) strip 2-0 8-14 00:00: 00 Yes [id number] Use Daily. Dx E11.9 [facility] blood sugar diagnostic (ACCU-CHEK GUIDE TEST STRIPS) strip 2-0 8-14 00:00: 00 Yes [id number] Use Daily. Dx E11.9 [facility] blood sugar diagnostic (ACCU-CHEK GUIDE TEST STRIPS) strip 2022-0 8-14 00:00: 00 Yes [id number] Use Daily. Dx E11.9 [facility] blood sugar diagnostic (ACCU-CHEK GUIDE TEST STRIPS) strip 0 8-14 00:00: 00 Yes [id number] Use Daily. Dx E11.9 [facility] blood sugar diagnostic (ACCU-CHEK GUIDE TEST STRIPS) strip 2021-0 8-14 00:00: 00 Yes [id number] Use Daily. Dx E11.9 Univers [facility] blood sugar diagnostic (ACCU-CHEK GUIDE TEST STRIPS) strip 2021-0 8-14 00:00: 00 Yes [id number] Use Daily. Dx E11.9 [facility] blood sugar diagnostic (ACCU-CHEK GUIDE TEST STRIPS) strip 2021-0 8-14 00:00: 00 Yes [id number] Use Daily. Dx E11.9 [facility] SIMVASTATIN 40 mg tablet 2021-0 8-08 00:00: 00 Yes [id number] 40mg TAKE 1 TABLET BY MOUTH AT BEDTIME [facility] SIMVASTATIN 40 mg tablet 2021-0 8-08 00:00: 00 Yes [id number] 40mg TAKE 1 TABLET BY MOUTH AT BEDTIME [facility] SIMVASTATIN 40 mg tablet 2021-0 8-08 00:00: 00 Yes [id number] 40mg TAKE 1 TABLET BY MOUTH AT BEDTIME [facility] SIMVASTATIN 40 mg tablet 2021-0 8-08 00:00: 00 Yes [id number] 40mg TAKE 1 TABLET BY MOUTH AT BEDTIME [facility] SIMVASTATIN 40 mg tablet 2021-0 8-08 00:00: 00 Yes [id number] 40mg TAKE 1 TABLET BY MOUTH AT BEDTIME [facility] SIMVASTATIN 40 mg tablet 2021-0 8-08 00:00: 00 Yes [id number] 40mg TAKE 1 TABLET BY MOUTH AT BEDTIME [facility] SIMVASTATIN 40 mg tablet 2021-0 8-08 00:00: 00 Yes [id number] 40mg TAKE 1 TABLET BY MOUTH AT BEDTIME [facility] SIMVASTATIN 40 mg tablet 2-0 8-08 00:00: 00 Yes [id number] 40mg TAKE 1 TABLET BY MOUTH AT BEDTIME [facility] SIMVASTATIN 40 mg tablet 2-0 808 00:00: 00 Yes [id number] 40mg TAKE 1 TABLET BY MOUTH AT BEDTIME [facility] SIMVASTATIN 40 mg tablet 2-0 8- 00:00: 00 Yes [id number] 40mg TAKE 1 TABLET BY MOUTH AT BEDTIME [facility] SIMVASTATIN 40 mg tablet 2-0 8 00:00: 00 Yes [id number] 40mg TAKE 1 TABLET BY MOUTH AT BEDTIME [facility] SIMVASTATIN 40 mg tablet 2021-0 8 00:00: 00 Yes [id number] 40mg TAKE 1 TABLET BY MOUTH AT BEDTIME [facility] SIMVASTATIN 40 mg tablet 2-0 8 00:00: 00 Yes [id number] 40mg TAKE 1 TABLET BY MOUTH AT BEDTIME [facility] SIMVASTATIN 40 mg tablet 2021-0 8 00:00: 00 Yes [id number] 40mg TAKE 1 TABLET BY MOUTH AT BEDTIME [facility] SIMVASTATIN 40 mg tablet 2-0 02-21 00:00: 00 Yes [id number] 40mg TAKE 1 TABLET BY MOUTH AT BEDTIME [facility] SIMVASTATIN 40 mg tablet 2021-0 02-21 00:00: 00 Yes [id number] 40mg TAKE 1 TABLET BY MOUTH AT BEDTIME [facility] SIMVASTATIN 40 mg tablet 2021-0 02-21 00:00: 00 Yes [id number] 40mg TAKE 1 TABLET BY MOUTH AT BEDTIME [facility] SIMVASTATIN 40 mg tablet 2-0 8 00:00: 00 Yes [id number] 40mg TAKE 1 TABLET BY MOUTH AT BEDTIME [facility] SIMVASTATIN 40 mg tablet 2-0 8 00:00: 00 Yes [id number] 40mg TAKE 1 TABLET BY MOUTH AT BEDTIME [facility] SIMVASTATIN 40 mg tablet 2021-0 8 00:00: 00 Yes [id number] 40mg TAKE 1 TABLET BY MOUTH AT BEDTIME [facility] SIMVASTATIN 40 mg tablet 2-0 8 00:00: 00 Yes [id number] 40mg TAKE 1 TABLET BY MOUTH AT BEDTIME [facility] SIMVASTATIN 40 mg tablet 2-02-21 00:00: 00 Yes [id number] 40mg TAKE 1 TABLET BY MOUTH AT BEDTIME [facility] SIMVASTATIN 40 mg tablet 8 00:00: 00 Yes [id number] 40mg TAKE 1 TABLET BY MOUTH AT BEDTIME [facility] SIMVASTATIN 40 mg tablet 02-21 00:00: 00 07-20 00:00 :00 No [id number] 40mg TAKE 1 TABLET BY MOUTH AT BEDTIME [facility] SIMVASTATIN 40 mg tablet 02-21 00:00: 00 07-20 00:00 :00 No [id number] 40mg TAKE 1 TABLET BY MOUTH AT BEDTIME [facility] acetaminoph en-codeine (TYLENOL-CO DEINE #3) 300-30 mg tablet 02-07 00:00: 00 Yes [id number] 2{tbl} Take 2 tablets by mouth every 6 (six) hours as needed for Pain (scale 4-6) or Pain (scale 7-10). Indication s: acute pain [facility] acetaminoph en-codeine (TYLENOL-CO DEINE #3) 300-30 mg tablet 02-07 00:00: 00 Yes [id number] 2{tbl} Take 2 tablets by mouth every 6 (six) hours as needed for Pain (scale 4-6) or Pain (scale 7-10). Indication s: acute pain [facility] acetaminoph en-codeine (TYLENOL-CO DEINE #3) 300-30 mg tablet 02-07 00:00: 00 Yes [id number] 2{tbl} Take 2 tablets by mouth every 6 (six) hours as needed for Pain (scale 4-6) or Pain (scale 7-10). Indication s: acute pain [facility] acetaminoph en-codeine (TYLENOL-CO DEINE #3) 300-30 mg tablet 02-07 00:00: 00 Yes [id number] 2{tbl} Take 2 tablets by mouth every 6 (six) hours as needed for Pain (scale 4-6) or Pain (scale 7-10). Indication s: acute pain [facility] acetaminoph en-codeine (TYLENOL-CO DEINE #3) 300-30 mg tablet 02-07 00:00: 00 Yes 4647 2{tbl} Take 2 tablets by mouth every 6 (six) hours as needed for Pain (scale 4-6) or Pain (scale 7-10). Indication s: acute pain [facility] acetaminoph en-codeine (TYLENOL-CO DEINE #3) 300-30 mg tablet 02-07 00:00: 00 Yes 4647 2{tbl} Take 2 tablets by mouth every 6 (six) hours as needed for Pain (scale 4-6) or Pain (scale 7-10). Indication s: acute pain [facility] acetaminoph en-codeine (TYLENOL-CO DEINE #3) 300-30 mg tablet 02-07 00:00: 00 Yes 4647 2{tbl} Take 2 tablets by mouth every 6 (six) hours as needed for Pain (scale 4-6) or Pain (scale 7-10). Indication s: acute pain [facility] acetaminoph en-codeine (TYLENOL-CO DEINE #3) 300-30 mg tablet 02-07 00:00: 00 Yes 4647 2{tbl} Take 2 tablets by mouth every 6 (six) hours as needed for Pain (scale 4-6) or Pain (scale 7-10). Indication s: acute pain [facility] acetaminoph en-codeine (TYLENOL-CO DEINE #3) 300-30 mg tablet 02-07 00:00: 00 Yes 4647 2{tbl} Take 2 tablets by mouth every 6 (six) hours as needed for Pain (scale 4-6) or Pain (scale 7-10). Indication s: acute pain [facility] acetaminoph en-codeine (TYLENOL-CO DEINE #3) 300-30 mg tablet 02-07 00:00: 00 Yes 4647 2{tbl} Take 2 tablets by mouth every 6 (six) hours as needed for Pain (scale 4-6) or Pain (scale 7-10). Indication s: acute pain [facility] acetaminoph en-codeine (TYLENOL-CO DEINE #3) 300-30 mg tablet 02-07 00:00: 00 Yes 4647 2{tbl} Take 2 tablets by mouth every 6 (six) hours as needed for Pain (scale 4-6) or Pain (scale 7-10). Indication s: acute pain [facility] acetaminoph en-codeine (TYLENOL-CO DEINE #3) 300-30 mg tablet 02-07 00:00: 00 Yes 4647 2{tbl} Take 2 tablets by mouth every 6 (six) hours as needed for Pain (scale 4-6) or Pain (scale 7-10). Indication s: acute pain [facility] acetaminoph en-codeine (TYLENOL-CO DEINE #3) 300-30 mg tablet 02-07 00:00: 00 Yes 4647 2{tbl} Take 2 tablets by mouth every 6 (six) hours as needed for Pain (scale 4-6) or Pain (scale 7-10). Indication s: acute pain [facility] acetaminoph en-codeine (TYLENOL-CO DEINE #3) 300-30 mg tablet 02-07 00:00: 00 Yes 4647 2{tbl} Take 2 tablets by mouth every 6 (six) hours as needed for Pain (scale 4-6) or Pain (scale 7-10). Indication s: acute pain [facility] acetaminoph en-codeine (TYLENOL-CO DEINE #3) 300-30 mg tablet 02-07 00:00: 00 Yes 4647 2{tbl} Take 2 tablets by mouth every 6 (six) hours as needed for Pain (scale 4-6) or Pain (scale 7-10). Indication s: acute pain [facility] acetaminoph en-codeine (TYLENOL-CO DEINE #3) 300-30 mg tablet 02-07 00:00: 00 Yes 4647 2{tbl} Take 2 tablets by mouth every 6 (six) hours as needed for Pain (scale 4-6) or Pain (scale 7-10). Indication s: acute pain [facility] acetaminoph en-codeine (TYLENOL-CO DEINE #3) 300-30 mg tablet 02-07 00:00: 00 Yes 4647 2{tbl} Take 2 tablets by mouth every 6 (six) hours as needed for Pain (scale 4-6) or Pain (scale 7-10). Indication s: acute pain [facility] acetaminoph en-codeine (TYLENOL-CO DEINE #3) 300-30 mg tablet 02-07 00:00: 00 Yes 4647 2{tbl} Take 2 tablets by mouth every 6 (six) hours as needed for Pain (scale 4-6) or Pain (scale 7-10). Indication s: acute pain [facility] acetaminoph en-codeine (TYLENOL-CO DEINE #3) 300-30 mg tablet 02-07 00:00: 00 Yes 4647 2{tbl} Take 2 tablets by mouth every 6 (six) hours as needed for Pain (scale 4-6) or Pain (scale 7-10). Indication s: acute pain [facility] acetaminoph en-codeine (TYLENOL-CO DEINE #3) 300-30 mg tablet 02-07 00:00: 00 Yes 4647 2{tbl} Take 2 tablets by mouth every 6 (six) hours as needed for Pain (scale 4-6) or Pain (scale 7-10). Indication s: acute pain [facility] acetaminoph en-codeine (TYLENOL-CO DEINE #3) 300-30 mg tablet 02-07 00:00: 00 Yes 4647 2{tbl} Take 2 tablets by mouth every 6 (six) hours as needed for Pain (scale 4-6) or Pain (scale 7-10). Indication s: acute pain [facility] acetaminoph en-codeine (TYLENOL-CO DEINE #3) 300-30 mg tablet 02-07 00:00: 00 Yes 4647 2{tbl} Take 2 tablets by mouth every 6 (six) hours as needed for Pain (scale 4-6) or Pain (scale 7-10). Indication s: acute pain [facility] acetaminoph en-codeine (TYLENOL-CO DEINE #3) 300-30 mg tablet 02-07 00:00: 00 Yes 4647 2{tbl} Take 2 tablets by mouth every 6 (six) hours as needed for Pain (scale 4-6) or Pain (scale 7-10). Indication s: acute pain [facility] acetaminoph en-codeine (TYLENOL-CO DEINE #3) 300-30 mg tablet 02-07 00:00: 00 Yes 4647 2{tbl} Take 2 tablets by mouth every 6 (six) hours as needed for Pain (scale 4-6) or Pain (scale 7-10). Indication s: acute pain [facility] acetaminoph en-codeine (TYLENOL-CO DEINE #3) 300-30 mg tablet 02-07 00:00: 00 Yes 4647 2{tbl} Take 2 tablets by mouth every 6 (six) hours as needed for Pain (scale 4-6) or Pain (scale 7-10). Indication s: acute pain [facility] acetaminoph en-codeine (TYLENOL-CO DEINE #3) 300-30 mg tablet 02-07 00:00: 00 Yes 4647 2{tbl} Take 2 tablets by mouth every 6 (six) hours as needed for Pain (scale 4-6) or Pain (scale 7-10). Indication s: acute pain [facility] acetaminoph en-codeine (TYLENOL-CO DEINE #3) 300-30 mg tablet 02-07 00:00: 00 Yes 4647 2{tbl} Take 2 tablets by mouth every 6 (six) hours as needed for Pain (scale 4-6) or Pain (scale 7-10). Indication s: acute pain [facility] acetaminoph en-codeine (TYLENOL-CO DEINE #3) 300-30 mg tablet 02-07 00:00: 00 Yes 4647 2{tbl} Take 2 tablets by mouth every 6 (six) hours as needed for Pain (scale 4-6) or Pain (scale 7-10). Indication s: acute pain [facility] acetaminoph en-codeine (TYLENOL-CO DEINE #3) 300-30 mg tablet 02-07 00:00: 00 Yes 4647 2{tbl} Take 2 tablets by mouth every 6 (six) hours as needed for Pain (scale 4-6) or Pain (scale 7-10). Indication s: acute pain [facility] acetaminoph en-codeine (TYLENOL-CO DEINE #3) 300-30 mg tablet 02-07 00:00: 00 Yes 4647 2{tbl} Take 2 tablets by mouth every 6 (six) hours as needed for Pain (scale 4-6) or Pain (scale 7-10). Indication s: acute pain [facility] acetaminoph en-codeine (TYLENOL-CO DEINE #3) 300-30 mg tablet 02-07 00:00: 00 Yes 4647 2{tbl} Take 2 tablets by mouth every 6 (six) hours as needed for Pain (scale 4-6) or Pain (scale 7-10). Indication s: acute pain [facility] acetaminoph en-codeine (TYLENOL-CO DEINE #3) 300-30 mg tablet 02-07 00:00: 00 Yes 4647 2{tbl} Take 2 tablets by mouth every 6 (six) hours as needed for Pain (scale 4-6) or Pain (scale 7-10). Indication s: acute pain [facility] acetaminoph en-codeine (TYLENOL-CO DEINE #3) 300-30 mg tablet 02-07 00:00: 00 Yes 4647 2{tbl} Take 2 tablets by mouth every 6 (six) hours as needed for Pain (scale 4-6) or Pain (scale 7-10). Indication s: acute pain [facility] acetaminoph en-codeine (TYLENOL-CO DEINE #3) 300-30 mg tablet 02-07 00:00: 00 Yes 4647 2{tbl} Take 2 tablets by mouth every 6 (six) hours as needed for Pain (scale 4-6) or Pain (scale 7-10). Indication s: acute pain [facility] acetaminoph en-codeine (TYLENOL-CO DEINE #3) 300-30 mg tablet 02-07 00:00: 00 Yes 4647 2{tbl} Take 2 tablets by mouth every 6 (six) hours as needed for Pain (scale 4-6) or Pain (scale 7-10). Indication s: acute pain [facility] acetaminoph en-codeine (TYLENOL-CO DEINE #3) 300-30 mg tablet 02-07 00:00: 00 Yes 4647 2{tbl} Take 2 tablets by mouth every 6 (six) hours as needed for Pain (scale 4-6) or Pain (scale 7-10). Indication s: acute pain [facility] acetaminoph en-codeine (TYLENOL-CO DEINE #3) 300-30 mg tablet 02-07 00:00: 00 Yes 4647 2{tbl} Take 2 tablets by mouth every 6 (six) hours as needed for Pain (scale 4-6) or Pain (scale 7-10). Indication s: acute pain [facility] acetaminoph en-codeine (TYLENOL-CO DEINE #3) 300-30 mg tablet 02-07 00:00: 00 Yes 4647 2{tbl} Take 2 tablets by mouth every 6 (six) hours as needed for Pain (scale 4-6) or Pain (scale 7-10). Indication s: acute pain [facility] acetaminoph en-codeine (TYLENOL-CO DEINE #3) 300-30 mg tablet 02-07 00:00: 00 Yes 4647 2{tbl} Take 2 tablets by mouth every 6 (six) hours as needed for Pain (scale 4-6) or Pain (scale 7-10). Indication s: acute pain [facility] acetaminoph en-codeine (TYLENOL-CO DEINE #3) 300-30 mg tablet 02-07 00:00: 00 Yes 4647 2{tbl} Take 2 tablets by mouth every 6 (six) hours as needed for Pain (scale 4-6) or Pain (scale 7-10). Indication s: acute pain [facility] acetaminoph en-codeine (TYLENOL-CO DEINE #3) 300-30 mg tablet 02-07 00:00: 00 Yes 4647 2{tbl} Take 2 tablets by mouth every 6 (six) hours as needed for Pain (scale 4-6) or Pain (scale 7-10). Indication s: acute pain [facility] acetaminoph en-codeine (TYLENOL-CO DEINE #3) 300-30 mg tablet 02-07 00:00: 00 Yes 4647 2{tbl} Take 2 tablets by mouth every 6 (six) hours as needed for Pain (scale 4-6) or Pain (scale 7-10). Indication s: acute pain [facility] acetaminoph en-codeine (TYLENOL-CO DEINE #3) 300-30 mg tablet 02-07 00:00: 00 Yes 4647 2{tbl} Take 2 tablets by mouth every 6 (six) hours as needed for Pain (scale 4-6) or Pain (scale 7-10). Indication s: acute pain [facility] acetaminoph en-codeine (TYLENOL-CO DEINE #3) 300-30 mg tablet 02-07 00:00: 00 Yes 4647 2{tbl} Take 2 tablets by mouth every 6 (six) hours as needed for Pain (scale 4-6) or Pain (scale 7-10). Indication s: acute pain [facility] acetaminoph en-codeine (TYLENOL-CO DEINE #3) 300-30 mg tablet 02-07 00:00: 00 Yes 4647 2{tbl} Take 2 tablets by mouth every 6 (six) hours as needed for Pain (scale 4-6) or Pain (scale 7-10). Indication s: acute pain [facility] acetaminoph en-codeine (TYLENOL-CO DEINE #3) 300-30 mg tablet 2021-02-07 00:00: 00 Yes 4647 2{tbl} Take 2 tablets by mouth every 6 (six) hours as needed for Pain (scale 4-6) or Pain (scale 7-10). Indication s: acute pain [facility] acetaminoph en-codeine (TYLENOL-CO DEINE #3) 300-30 mg tablet 02-07 00:00: 00 Yes 4647 2{tbl} Take 2 tablets by mouth every 6 (six) hours as needed for Pain (scale 4-6) or Pain (scale 7-10). Indication s: acute pain [facility] acetaminoph en-codeine (TYLENOL-CO DEINE #3) 300-30 mg tablet 02-07 00:00: 00 Yes 4647 2{tbl} Take 2 tablets by mouth every 6 (six) hours as needed for Pain (scale 4-6) or Pain (scale 7-10). Indication s: acute pain [facility] acetaminoph en-codeine (TYLENOL-CO DEINE #3) 300-30 mg tablet 02-07 00:00: 00 Yes 4647 2{tbl} Take 2 tablets by mouth every 6 (six) hours as needed for Pain (scale 4-6) or Pain (scale 7-10). Indication s: acute pain [facility] acetaminoph en-codeine (TYLENOL-CO DEINE #3) 300-30 mg tablet 02-07 00:00: 00 Yes 4647 2{tbl} Take 2 tablets by mouth every 6 (six) hours as needed for Pain (scale 4-6) or Pain (scale 7-10). Indication s: acute pain [facility] acetaminoph en-codeine (TYLENOL-CO DEINE #3) 300-30 mg tablet 02-07 00:00: 00 Yes 4647 2{tbl} Take 2 tablets by mouth every 6 (six) hours as needed for Pain (scale 4-6) or Pain (scale 7-10). Indication s: acute pain [facility] acetaminoph en-codeine (TYLENOL-CO DEINE #3) 300-30 mg tablet 2021-0 02-07 00:00: 00 Yes 4647 2{tbl} Take 2 tablets by mouth every 6 (six) hours as needed for Pain (scale 4-6) or Pain (scale 7-10). Indication s: acute pain [facility] acetaminoph en-codeine (TYLENOL-CO DEINE #3) 300-30 mg tablet 02-07 00:00: 00 Yes 4647 2{tbl} Take 2 tablets by mouth every 6 (six) hours as needed for Pain (scale 4-6) or Pain (scale 7-10). Indication s: acute pain [facility] acetaminoph en-codeine (TYLENOL-CO DEINE #3) 300-30 mg tablet 02-07 00:00: 00 Yes 4647 2{tbl} Take 2 tablets by mouth every 6 (six) hours as needed for Pain (scale 4-6) or Pain (scale 7-10). Indication s: acute pain [facility] acetaminoph en-codeine (TYLENOL-CO DEINE #3) 300-30 mg tablet 02-07 00:00: 00 Yes 4647 2{tbl} Take 2 tablets by mouth every 6 (six) hours as needed for Pain (scale 4-6) or Pain (scale 7-10). Indication s: acute pain [facility] acetaminoph en-codeine (TYLENOL-CO DEINE #3) 300-30 mg tablet 02-07 00:00: 00 Yes 4647 2{tbl} Take 2 tablets by mouth every 6 (six) hours as needed for Pain (scale 4-6) or Pain (scale 7-10). Indication s: acute pain [facility] acetaminoph en-codeine (TYLENOL-CO DEINE #3) 300-30 mg tablet 02-07 00:00: 00 Yes 4647 2{tbl} Take 2 tablets by mouth every 6 (six) hours as needed for Pain (scale 4-6) or Pain (scale 7-10). Indication s: acute pain [facility] acetaminoph en-codeine (TYLENOL-CO DEINE #3) 300-30 mg tablet 2021-02-07 00:00: 00 Yes 4647 2{tbl} Take 2 tablets by mouth every 6 (six) hours as needed for Pain (scale 4-6) or Pain (scale 7-10). Indication s: acute pain [facility] acetaminoph en-codeine (TYLENOL-CO DEINE #3) 300-30 mg tablet 02-07 00:00: 00 Yes 4647 2{tbl} Take 2 tablets by mouth every 6 (six) hours as needed for Pain (scale 4-6) or Pain (scale 7-10). Indication s: acute pain [facility] acetaminoph en-codeine (TYLENOL-CO DEINE #3) 300-30 mg tablet 02-07 00:00: 00 Yes 4647 2{tbl} Take 2 tablets by mouth every 6 (six) hours as needed for Pain (scale 4-6) or Pain (scale 7-10). Indication s: acute pain [facility] acetaminoph en-codeine (TYLENOL-CO DEINE #3) 300-30 mg tablet 02-07 00:00: 00 Yes 4647 2{tbl} Take 2 tablets by mouth every 6 (six) hours as needed for Pain (scale 4-6) or Pain (scale 7-10). Indication s: acute pain [facility] acetaminoph en-codeine (TYLENOL-CO DEINE #3) 300-30 mg tablet 02-07 00:00: 00 Yes 4647 2{tbl} Take 2 tablets by mouth every 6 (six) hours as needed for Pain (scale 4-6) or Pain (scale 7-10). Indication s: acute pain [facility] acetaminoph en-codeine (TYLENOL-CO DEINE #3) 300-30 mg tablet 02-07 00:00: 00 Yes 4647 2{tbl} Take 2 tablets by mouth every 6 (six) hours as needed for Pain (scale 4-6) or Pain (scale 7-10). Indication s: acute pain [facility] acetaminoph en-codeine (TYLENOL-CO DEINE #3) 300-30 mg tablet 02-07 00:00: 00 Yes 4647 2{tbl} Take 2 tablets by mouth every 6 (six) hours as needed for Pain (scale 4-6) or Pain (scale 7-10). Indication s: acute pain [facility] acetaminoph en-codeine (TYLENOL-CO DEINE #3) 300-30 mg tablet 02-07 00:00: 00 Yes 4647 2{tbl} Take 2 tablets by mouth every 6 (six) hours as needed for Pain (scale 4-6) or Pain (scale 7-10). Indication s: acute pain [facility] acetaminoph en-codeine (TYLENOL-CO DEINE #3) 300-30 mg tablet 02-07 00:00: 00 Yes 4647 2{tbl} Take 2 tablets by mouth every 6 (six) hours as needed for Pain (scale 4-6) or Pain (scale 7-10). Indication s: acute pain [facility] acetaminoph en-codeine (TYLENOL-CO DEINE #3) 300-30 mg tablet 02-07 00:00: 00 Yes 4647 2{tbl} Take 2 tablets by mouth every 6 (six) hours as needed for Pain (scale 4-6) or Pain (scale 7-10). Indication s: acute pain [facility] acetaminoph en-codeine (TYLENOL-CO DEINE #3) 300-30 mg tablet 02-07 00:00: 00 Yes 4647 2{tbl} Take 2 tablets by mouth every 6 (six) hours as needed for Pain (scale 4-6) or Pain (scale 7-10). Indication s: acute pain [facility] acetaminoph en-codeine (TYLENOL-CO DEINE #3) 300-30 mg tablet 02-07 00:00: 00 Yes 4647 2{tbl} Take 2 tablets by mouth every 6 (six) hours as needed for Pain (scale 4-6) or Pain (scale 7-10). Indication s: acute pain [facility] acetaminoph en-codeine (TYLENOL-CO DEINE #3) 300-30 mg tablet 02-07 00:00: 00 Yes 4647 2{tbl} Take 2 tablets by mouth every 6 (six) hours as needed for Pain (scale 4-6) or Pain (scale 7-10). Indication s: acute pain [facility] acetaminoph en-codeine (TYLENOL-CO DEINE #3) 300-30 mg tablet 02-07 00:00: 00 Yes 4647 2{tbl} Take 2 tablets by mouth every 6 (six) hours as needed for Pain (scale 4-6) or Pain (scale 7-10). Indication s: acute pain [facility] acetaminoph en-codeine (TYLENOL-CO DEINE #3) 300-30 mg tablet 02-07 00:00: 00 Yes 4647 2{tbl} Take 2 tablets by mouth every 6 (six) hours as needed for Pain (scale 4-6) or Pain (scale 7-10). Indication s: acute pain [facility] acetaminoph en-codeine (TYLENOL-CO DEINE #3) 300-30 mg tablet 02-07 00:00: 00 Yes 4647 2{tbl} Take 2 tablets by mouth every 6 (six) hours as needed for Pain (scale 4-6) or Pain (scale 7-10). Indication s: acute pain [facility] acetaminoph en-codeine (TYLENOL-CO DEINE #3) 300-30 mg tablet 02-07 00:00: 00 Yes 4647 2{tbl} Take 2 tablets by mouth every 6 (six) hours as needed for Pain (scale 4-6) or Pain (scale 7-10). Indication s: acute pain [facility] acetaminoph en-codeine (TYLENOL-CO DEINE #3) 300-30 mg tablet 0 02-07 00:00: 00 Yes 4647 2{tbl} Take 2 tablets by mouth every 6 (six) hours as needed for Pain (scale 4-6) or Pain (scale 7-10). Indication s: acute pain [facility] acetaminoph en-codeine (TYLENOL-CO DEINE #3) 300-30 mg tablet 02-07 00:00: 00 Yes 4647 2{tbl} Take 2 tablets by mouth every 6 (six) hours as needed for Pain (scale 4-6) or Pain (scale 7-10). Indication s: acute pain [facility] acetaminoph en-codeine (TYLENOL-CO DEINE #3) 300-30 mg tablet 02-07 00:00: 00 Yes 4647 2{tbl} Take 2 tablets by mouth every 6 (six) hours as needed for Pain (scale 4-6) or Pain (scale 7-10). Indication s: acute pain [facility] acetaminoph en-codeine (TYLENOL-CO DEINE #3) 300-30 mg tablet 02-07 00:00: 00 Yes 4647 2{tbl} Take 2 tablets by mouth every 6 (six) hours as needed for Pain (scale 4-6) or Pain (scale 7-10). Indication s: acute pain [facility] acetaminoph en-codeine (TYLENOL-CO DEINE #3) 300-30 mg tablet 02-07 00:00: 00 Yes 4647 2{tbl} Take 2 tablets by mouth every 6 (six) hours as needed for Pain (scale 4-6) or Pain (scale 7-10). Indication s: acute pain [facility] acetaminoph en-codeine (TYLENOL-CO DEINE #3) 300-30 mg tablet 02-07 00:00: 00 Yes 4647 2{tbl} Take 2 tablets by mouth every 6 (six) hours as needed for Pain (scale 4-6) or Pain (scale 7-10). Indication s: acute pain [facility] acetaminoph en-codeine (TYLENOL-CO DEINE #3) 300-30 mg tablet 0 02-07 00:00: 00 Yes 4647 2{tbl} Take 2 tablets by mouth every 6 (six) hours as needed for Pain (scale 4-6) or Pain (scale 7-10). Indication s: acute pain [facility] acetaminoph en-codeine (TYLENOL-CO DEINE #3) 300-30 mg tablet 2021-02-07 00:00: 00 Yes 4647 2{tbl} Take 2 tablets by mouth every 6 (six) hours as needed for Pain (scale 4-6) or Pain (scale 7-10). Indication s: acute pain [facility] acetaminoph en-codeine (TYLENOL-CO DEINE #3) 300-30 mg tablet 02-07 00:00: 00 Yes 4647 2{tbl} Take 2 tablets by mouth every 6 (six) hours as needed for Pain (scale 4-6) or Pain (scale 7-10). Indication s: acute pain [facility] acetaminoph en-codeine (TYLENOL-CO DEINE #3) 300-30 mg tablet 02-07 00:00: 00 Yes 4647 2{tbl} Take 2 tablets by mouth every 6 (six) hours as needed for Pain (scale 4-6) or Pain (scale 7-10). Indication s: acute pain [facility] acetaminoph en-codeine (TYLENOL-CO DEINE #3) 300-30 mg tablet 02-07 00:00: 00 Yes 4647 2{tbl} Take 2 tablets by mouth every 6 (six) hours as needed for Pain (scale 4-6) or Pain (scale 7-10). Indication s: acute pain [facility] acetaminoph en-codeine (TYLENOL-CO DEINE #3) 300-30 mg tablet 02-07 00:00: 00 Yes 4647 2{tbl} Take 2 tablets by mouth every 6 (six) hours as needed for Pain (scale 4-6) or Pain (scale 7-10). Indication s: acute pain [facility] acetaminoph en-codeine (TYLENOL-CO DEINE #3) 300-30 mg tablet 2021-0 02-07 00:00: 00 Yes 4647 2{tbl} Take 2 tablets by mouth every 6 (six) hours as needed for Pain (scale 4-6) or Pain (scale 7-10). Indication s: acute pain [facility] acetaminoph en-codeine (TYLENOL-CO DEINE #3) 300-30 mg tablet 2021-02-07 00:00: 00 Yes 4647 2{tbl} Take 2 tablets by mouth every 6 (six) hours as needed for Pain (scale 4-6) or Pain (scale 7-10). Indication s: acute pain [facility] acetaminoph en-codeine (TYLENOL-CO DEINE #3) 300-30 mg tablet 02-07 00:00: 00 Yes 4647 2{tbl} Take 2 tablets by mouth every 6 (six) hours as needed for Pain (scale 4-6) or Pain (scale 7-10). Indication s: acute pain [facility] acetaminoph en-codeine (TYLENOL-CO DEINE #3) 300-30 mg tablet 02-07 00:00: 00 Yes 4647 2{tbl} Take 2 tablets by mouth every 6 (six) hours as needed for Pain (scale 4-6) or Pain (scale 7-10). Indication s: acute pain [facility] acetaminoph en-codeine (TYLENOL-CO DEINE #3) 300-30 mg tablet 02-07 00:00: 00 Yes 4647 2{tbl} Take 2 tablets by mouth every 6 (six) hours as needed for Pain (scale 4-6) or Pain (scale 7-10). Indication s: acute pain [facility] acetaminoph en-codeine (TYLENOL-CO DEINE #3) 300-30 mg tablet 02-07 00:00: 00 Yes 4647 2{tbl} Take 2 tablets by mouth every 6 (six) hours as needed for Pain (scale 4-6) or Pain (scale 7-10). Indication s: acute pain [facility] acetaminoph en-codeine (TYLENOL-CO DEINE #3) 300-30 mg tablet 0 02-07 00:00: 00 Yes 4647 2{tbl} Take 2 tablets by mouth every 6 (six) hours as needed for Pain (scale 4-6) or Pain (scale 7-10). Indication s: acute pain [facility] acetaminoph en-codeine (TYLENOL-CO DEINE #3) 300-30 mg tablet 02-07 00:00: 00 Yes 4647 2{tbl} Take 2 tablets by mouth every 6 (six) hours as needed for Pain (scale 4-6) or Pain (scale 7-10). Indication s: acute pain [facility] acetaminoph en-codeine (TYLENOL-CO DEINE #3) 300-30 mg tablet 0 - 00:00: 00 Yes 4647 2{tbl} Take 2 tablets by mouth every 6 (six) hours as needed for Pain (scale 4-6) or Pain (scale 7-10). Indication s: acute pain [facility] acetaminoph en-codeine (TYLENOL-CO DEINE #3) 300-30 mg tablet 0 02-07 00:00: 00 Yes 4647 2{tbl} Take 2 tablets by mouth every 6 (six) hours as needed for Pain (scale 4-6) or Pain (scale 7-10). Indication s: acute pain [facility] acetaminoph en-codeine (TYLENOL-CO DEINE #3) 300-30 mg tablet 2021-02-07 00:00: 00 Yes 4647 2{tbl} Take 2 tablets by mouth every 6 (six) hours as needed for Pain (scale 4-6) or Pain (scale 7-10). Indication s: acute pain [facility] acetaminoph en-codeine (TYLENOL-CO DEINE #3) 300-30 mg tablet 02-07 00:00: 00 Yes 4647 2{tbl} Take 2 tablets by mouth every 6 (six) hours as needed for Pain (scale 4-6) or Pain (scale 7-10). Indication s: acute pain [facility] hydrOXYzine 25 mg tablet 2021-0 12-27 00:00: 00 Yes 25mg Take 25 mg by mouth 2 (two) times daily as needed. [facility] hydrOXYzine 25 mg tablet 2021-0 12-27 00:00: 00 Yes 25mg Take 25 mg by mouth 2 (two) times daily as needed. [facility] hydrOXYzine 25 mg tablet 2021-0 12-27 00:00: 00 Yes 25mg Take 25 mg by mouth 2 (two) times daily as needed. [facility] hydrOXYzine 25 mg tablet 2021-0 12-27 00:00: 00 Yes 25mg Take 25 mg by mouth 2 (two) times daily as needed. [facility] hydrOXYzine 25 mg tablet 2021-0 12-27 00:00: 00 Yes 25mg Take 25 mg by mouth 2 (two) times daily as needed. [facility] hydrOXYzine 25 mg tablet 2021-0 12-27 00:00: 00 Yes 25mg Take 25 mg by mouth 2 (two) times daily as needed. [facility] hydrOXYzine 25 mg tablet 2021-0 12-27 00:00: 00 Yes 25mg Take 25 mg by mouth 2 (two) times daily as needed. [facility] hydrOXYzine 25 mg tablet 2021-0 12-27 00:00: 00 Yes 25mg Take 25 mg by mouth 2 (two) times daily as needed. [facility] hydrOXYzine 25 mg tablet 2021-0 12-27 00:00: 00 Yes 25mg Take 25 mg by mouth 2 (two) times daily as needed. [facility] hydrOXYzine 25 mg tablet 0 12-27 00:00: 00 Yes 25mg Take 25 mg by mouth 2 (two) times daily as needed. [facility] hydrOXYzine 25 mg tablet 0 12-27 00:00: 00 Yes 25mg Take 25 mg by mouth 2 (two) times daily as needed. [facility] hydrOXYzine 25 mg tablet 2021-0 12-27 00:00: 00 Yes 25mg Take 25 mg by mouth 2 (two) times daily as needed. [facility] hydrOXYzine 25 mg tablet 2021-0 12-27 00:00: 00 Yes 25mg Take 25 mg by mouth 2 (two) times daily as needed. [facility] hydrOXYzine 25 mg tablet 2021-0 12-27 00:00: 00 Yes 25mg Take 25 mg by mouth 2 (two) times daily as needed. [facility] hydrOXYzine 25 mg tablet 2021-0 12-27 00:00: 00 Yes 25mg Take 25 mg by mouth 2 (two) times daily as needed. [facility] hydrOXYzine 25 mg tablet 2-0 12-27 00:00: 00 Yes 25mg Take 25 mg by mouth 2 (two) times daily as needed. [facility] hydrOXYzine 25 mg tablet 2021-0 12-27 00:00: 00 Yes 25mg Take 25 mg by mouth 2 (two) times daily as needed. [facility] hydrOXYzine 25 mg tablet 2021-0 12-27 00:00: 00 Yes 25mg Take 25 mg by mouth 2 (two) times daily as needed. [facility] hydrOXYzine 25 mg tablet 2-0 12-27 00:00: 00 Yes 25mg Take 25 mg by mouth 2 (two) times daily as needed. [facility] hydrOXYzine 25 mg tablet 2021-0 12-27 00:00: 00 Yes 25mg Take 25 mg by mouth 2 (two) times daily as needed. [facility] hydrOXYzine 25 mg tablet 2021-0 12-27 00:00: 00 Yes 25mg Take 25 mg by mouth 2 (two) times daily as needed. [facility] hydrOXYzine 25 mg tablet 2021-0 12-27 00:00: 00 Yes 25mg Take 25 mg by mouth 2 (two) times daily as needed. [facility] hydrOXYzine 25 mg tablet 2021-0 12-27 00:00: 00 Yes 25mg Take 25 mg by mouth 2 (two) times daily as needed. [facility] hydrOXYzine 25 mg tablet 2021-0 12-27 00:00: 00 Yes 25mg Take 25 mg by mouth 2 (two) times daily as needed. [facility] hydrOXYzine 25 mg tablet 2-0 12-27 00:00: 00 Yes 25mg Take 25 mg by mouth 2 (two) times daily as needed. [facility] hydrOXYzine 25 mg tablet 2-0 12-27 00:00: 00 Yes 25mg Take 25 mg by mouth 2 (two) times daily as needed. [facility] hydrOXYzine 25 mg tablet 2-0 12-27 00:00: 00 Yes 25mg Take 25 mg by mouth 2 (two) times daily as needed. [facility] hydrOXYzine 25 mg tablet 2021-0 12-27 00:00: 00 Yes 25mg Take 25 mg by mouth 2 (two) times daily as needed. [facility] hydrOXYzine 25 mg tablet 2021-0 12-27 00:00: 00 Yes 25mg Take 25 mg by mouth 2 (two) times daily as needed. [facility] hydrOXYzine 25 mg tablet 0 12-27 00:00: 00 Yes 25mg Take 25 mg by mouth 2 (two) times daily as needed. [facility] hydrOXYzine 25 mg tablet 2021-0 12-27 00:00: 00 Yes 25mg Take 25 mg by mouth 2 (two) times daily as needed. [facility] hydrOXYzine 25 mg tablet 0 12-27 00:00: 00 Yes 25mg Take 25 mg by mouth 2 (two) times daily as needed. [facility] hydrOXYzine 25 mg tablet 0 12-27 00:00: 00 Yes 25mg Take 25 mg by mouth 2 (two) times daily as needed. [facility] hydrOXYzine 25 mg tablet 0 12-27 00:00: 00 Yes 25mg Take 25 mg by mouth 2 (two) times daily as needed. [facility] hydrOXYzine 25 mg tablet 0 12-27 00:00: 00 Yes 25mg Take 25 mg by mouth 2 (two) times daily as needed. [facility] hydrOXYzine 25 mg tablet 2021-0 12-27 00:00: 00 Yes 25mg Take 25 mg by mouth 2 (two) times daily as needed. [facility] hydrOXYzine 25 mg tablet 2021-0 12-27 00:00: 00 Yes 25mg Take 25 mg by mouth 2 (two) times daily as needed. [facility] hydrOXYzine 25 mg tablet 2021-0 12-27 00:00: 00 Yes 25mg Take 25 mg by mouth 2 (two) times daily as needed. [facility] hydrOXYzine 25 mg tablet 2021-0 12-27 00:00: 00 Yes 25mg Take 25 mg by mouth 2 (two) times daily as needed. [facility] hydrOXYzine 25 mg tablet 2021-0 12-27 00:00: 00 Yes 25mg Take 25 mg by mouth 2 (two) times daily as needed. [facility] hydrOXYzine 25 mg tablet 2021-0 12-27 00:00: 00 Yes 25mg Take 25 mg by mouth 2 (two) times daily as needed. [facility] hydrOXYzine 25 mg tablet 2021-0 12-27 00:00: 00 Yes 25mg Take 25 mg by mouth 2 (two) times daily as needed. [facility] hydrOXYzine 25 mg tablet 2021-0 12-27 00:00: 00 Yes 25mg Take 25 mg by mouth 2 (two) times daily as needed. [facility] hydrOXYzine 25 mg tablet 2021-0 12-27 00:00: 00 Yes 25mg Take 25 mg by mouth 2 (two) times daily as needed. [facility] hydrOXYzine 25 mg tablet 2021-0 12-27 00:00: 00 Yes 25mg Take 25 mg by mouth 2 (two) times daily as needed. [facility] hydrOXYzine 25 mg tablet 2021-0 12-27 00:00: 00 Yes 25mg Take 25 mg by mouth 2 (two) times daily as needed. [facility] hydrOXYzine 25 mg tablet 2021-0 12-27 00:00: 00 Yes 25mg Take 25 mg by mouth 2 (two) times daily as needed. [facility] hydrOXYzine 25 mg tablet 2021-0 12-27 00:00: 00 Yes 25mg Take 25 mg by mouth 2 (two) times daily as needed. [facility] hydrOXYzine 25 mg tablet 2021-0 12-27 00:00: 00 Yes 25mg Take 25 mg by mouth 2 (two) times daily as needed. [facility] hydrOXYzine 25 mg tablet 2021-0 12-27 00:00: 00 Yes 25mg Take 25 mg by mouth 2 (two) times daily as needed. [facility] hydrOXYzine 25 mg tablet 2021-0 12-27 00:00: 00 Yes 25mg Take 25 mg by mouth 2 (two) times daily as needed. [facility] hydrOXYzine 25 mg tablet 2021-0 12-27 00:00: 00 Yes 25mg Take 25 mg by mouth 2 (two) times daily as needed. [facility] hydrOXYzine 25 mg tablet 2021-0 12-27 00:00: 00 Yes 25mg Take 25 mg by mouth 2 (two) times daily as needed. [facility] hydrOXYzine 25 mg tablet 2021-0 12-27 00:00: 00 Yes 25mg Take 25 mg by mouth 2 (two) times daily as needed. [facility] hydrOXYzine 25 mg tablet 2021-0 12-27 00:00: 00 Yes 25mg Take 25 mg by mouth 2 (two) times daily as needed. [facility] hydrOXYzine 25 mg tablet 2021-0 12-27 00:00: 00 Yes 25mg Take 25 mg by mouth 2 (two) times daily as needed. [facility] hydrOXYzine 25 mg tablet 2021-0 12-27 00:00: 00 Yes 25mg Take 25 mg by mouth 2 (two) times daily as needed. [facility] hydrOXYzine 25 mg tablet 0 12-27 00:00: 00 Yes 25mg Take 25 mg by mouth 2 (two) times daily as needed. [facility] hydrOXYzine 25 mg tablet 2021-0 12-27 00:00: 00 Yes 25mg Take 25 mg by mouth 2 (two) times daily as needed. [facility] hydrOXYzine 25 mg tablet 2021-0 12-27 00:00: 00 Yes 25mg Take 25 mg by mouth 2 (two) times daily as needed. [facility] hydrOXYzine 25 mg tablet 2021-0 12-27 00:00: 00 Yes 25mg Take 25 mg by mouth 2 (two) times daily as needed. [facility] hydrOXYzine 25 mg tablet 2021-0 12-27 00:00: 00 Yes 25mg Take 25 mg by mouth 2 (two) times daily as needed. [facility] hydrOXYzine 25 mg tablet 2021-0 12-27 00:00: 00 Yes 25mg Take 25 mg by mouth 2 (two) times daily as needed. [facility] hydrOXYzine 25 mg tablet 2021-0 12-27 00:00: 00 Yes 25mg Take 25 mg by mouth 2 (two) times daily as needed. [facility] hydrOXYzine 25 mg tablet 2021-0 12-27 00:00: 00 Yes 25mg Take 25 mg by mouth 2 (two) times daily as needed. [facility] hydrOXYzine 25 mg tablet 2021-0 12-27 00:00: 00 Yes 25mg Take 25 mg by mouth 2 (two) times daily as needed. [facility] hydrOXYzine 25 mg tablet 2021-0 12-27 00:00: 00 Yes 25mg Take 25 mg by mouth 2 (two) times daily as needed. [facility] hydrOXYzine 25 mg tablet 2021-0 12-27 00:00: 00 Yes 25mg Take 25 mg by mouth 2 (two) times daily as needed. [facility] hydrOXYzine 25 mg tablet 2021-0 12-27 00:00: 00 Yes 25mg Take 25 mg by mouth 2 (two) times daily as needed. [facility] hydrOXYzine 25 mg tablet 2021-0 12-27 00:00: 00 Yes 25mg Take 25 mg by mouth 2 (two) times daily as needed. [facility] hydrOXYzine 25 mg tablet 2021-0 12-27 00:00: 00 Yes 25mg Take 25 mg by mouth 2 (two) times daily as needed. [facility] hydrOXYzine 25 mg tablet 2021-0 12-27 00:00: 00 Yes 25mg Take 25 mg by mouth 2 (two) times daily as needed. [facility] hydrOXYzine 25 mg tablet 2021-0 12-27 00:00: 00 Yes 25mg Take 25 mg by mouth 2 (two) times daily as needed. [facility] hydrOXYzine 25 mg tablet 2021-0 12-27 00:00: 00 Yes 25mg Take 25 mg by mouth 2 (two) times daily as needed. [facility] hydrOXYzine 25 mg tablet 2021-0 12-27 00:00: 00 Yes 25mg Take 25 mg by mouth 2 (two) times daily as needed. [facility] hydrOXYzine 25 mg tablet 2021-0 12-27 00:00: 00 Yes 25mg Take 25 mg by mouth 2 (two) times daily as needed. [facility] hydrOXYzine 25 mg tablet 2021-0 12-27 00:00: 00 Yes 25mg Take 25 mg by mouth 2 (two) times daily as needed. [facility] hydrOXYzine 25 mg tablet 2021-0 12-27 00:00: 00 Yes 25mg Take 25 mg by mouth 2 (two) times daily as needed. [facility] hydrOXYzine 25 mg tablet 2021-0 12-27 00:00: 00 Yes 25mg Take 25 mg by mouth 2 (two) times daily as needed. [facility] hydrOXYzine 25 mg tablet 2021-0 12-27 00:00: 00 Yes 25mg Take 25 mg by mouth 2 (two) times daily as needed. [facility] hydrOXYzine 25 mg tablet 0 12-27 00:00: 00 Yes 25mg Take 25 mg by mouth 2 (two) times daily as needed. [facility] hydrOXYzine 25 mg tablet 0 12-27 00:00: 00 Yes 25mg Take 25 mg by mouth 2 (two) times daily as needed. [facility] hydrOXYzine 25 mg tablet 2021-0 12-27 00:00: 00 Yes 25mg Take 25 mg by mouth 2 (two) times daily as needed. [facility] hydrOXYzine 25 mg tablet 2021-0 12-27 00:00: 00 Yes 25mg Take 25 mg by mouth 2 (two) times daily as needed. [facility] hydrOXYzine 25 mg tablet 2021-0 12-27 00:00: 00 Yes 25mg Take 25 mg by mouth 2 (two) times daily as needed. [facility] hydrOXYzine 25 mg tablet 2-0 12-27 00:00: 00 Yes 25mg Take 25 mg by mouth 2 (two) times daily as needed. [facility] hydrOXYzine 25 mg tablet 2021-0 12-27 00:00: 00 Yes 25mg Take 25 mg by mouth 2 (two) times daily as needed. [facility] hydrOXYzine 25 mg tablet 2021-0 12-27 00:00: 00 Yes 25mg Take 25 mg by mouth 2 (two) times daily as needed. [facility] hydrOXYzine 25 mg tablet 2021-0 12-27 00:00: 00 Yes 25mg Take 25 mg by mouth 2 (two) times daily as needed. [facility] hydrOXYzine 25 mg tablet 2021-0 12-27 00:00: 00 Yes 25mg Take 25 mg by mouth 2 (two) times daily as needed. [facility] hydrOXYzine 25 mg tablet 2021-0 12-27 00:00: 00 Yes 25mg Take 25 mg by mouth 2 (two) times daily as needed. [facility] hydrOXYzine 25 mg tablet 2021-0 12-27 00:00: 00 Yes 25mg Take 25 mg by mouth 2 (two) times daily as needed. [facility] hydrOXYzine 25 mg tablet 2021-0 12-27 00:00: 00 Yes 25mg Take 25 mg by mouth 2 (two) times daily as needed. [facility] hydrOXYzine 25 mg tablet 2021-0 12-27 00:00: 00 Yes 25mg Take 25 mg by mouth 2 (two) times daily as needed. [facility] hydrOXYzine 25 mg tablet 2021-0 12-27 00:00: 00 Yes 25mg Take 25 mg by mouth 2 (two) times daily as needed. [facility] hydrOXYzine 25 mg tablet 2021-0 12-27 00:00: 00 Yes 25mg Take 25 mg by mouth 2 (two) times daily as needed. [facility] hydrOXYzine 25 mg tablet 2021-0 12-27 00:00: 00 Yes 25mg Take 25 mg by mouth 2 (two) times daily as needed. [facility] hydrOXYzine 25 mg tablet 2021-0 12-27 00:00: 00 Yes 25mg Take 25 mg by mouth 2 (two) times daily as needed. [facility] hydrOXYzine 25 mg tablet 2021-0 11-22 13:28: 35 11-22 00:00 :00 No 25mg Take 25 mg by mouth every 8 (eight) hours as needed for Anxiety. [facility] hydrOXYzine 25 mg tablet 2021-0 11-22 13:28: 35 11-22 00:00 :00 No 25mg Take 25 mg by mouth every 8 (eight) hours as needed for Anxiety. [facility] hydrOXYzine 25 mg tablet 2021-0 11-22 13:28: 35 11-22 00:00 :00 No 25mg Take 25 mg by mouth every 8 (eight) hours as needed for Anxiety. [facility] hydrOXYzine 25 mg tablet 0 11-22 13:28: 35 11-22 00:00 :00 No 25mg Take 25 mg by mouth every 8 (eight) hours as needed for Anxiety. [facility] hydrOXYzine 25 mg tablet 0 11-22 13:28: 35 11-22 00:00 :00 No 25mg Take 25 mg by mouth every 8 (eight) hours as needed for Anxiety. [facility] hydrOXYzine 25 mg tablet 0 11-22 13:28: 35 11-22 00:00 :00 No 25mg Take 25 mg by mouth every 8 (eight) hours as needed for Anxiety. [facility] gabapentin 300 mg capsule 2-0 -21 00:00: 00 Yes [id number] 300mg Take 1 capsule by mouth 3 (three) times daily. [facility] gabapentin 300 mg capsule 2022-0 -21 00:00: 00 Yes [id number] 300mg Take 1 capsule by mouth 3 (three) times daily. [facility] gabapentin 300 mg capsule 2022-0 4-21 00:00: 00 Yes [id number] 300mg Take 1 capsule by mouth 3 (three) times daily. [facility] gabapentin 300 mg capsule 2022-0 4-21 00:00: 00 Yes [id number] 300mg Take 1 capsule by mouth 3 (three) times daily. [facility] gabapentin 300 mg capsule 2022-0 4-21 00:00: 00 Yes [id number] 300mg Take 1 capsule by mouth 3 (three) times daily. [facility] gabapentin 300 mg capsule 2022-0 4-21 00:00: 00 Yes [id number] 300mg Take 1 capsule by mouth 3 (three) times daily. [facility] gabapentin 300 mg capsule 2022-0 4-21 00:00: 00 Yes [id number] 300mg Take 1 capsule by mouth 3 (three) times daily. [facility] gabapentin 300 mg capsule 2022-0 4-21 00:00: 00 Yes [id number] 300mg Take 1 capsule by mouth 3 (three) times daily. [facility] gabapentin 300 mg capsule 2022-0 4-21 00:00: 00 Yes [id number] 300mg Take 1 capsule by mouth 3 (three) times daily. [facility] gabapentin 300 mg capsule 2022-0 4-21 00:00: 00 Yes [id number] 300mg Take 1 capsule by mouth 3 (three) times daily. [facility] gabapentin 300 mg capsule 2022-0 4-21 00:00: 00 Yes [id number] 300mg Take 1 capsule by mouth 3 (three) times daily. [facility] gabapentin 300 mg capsule 2022-0 4-21 00:00: 00 Yes [id number] 300mg Take 1 capsule by mouth 3 (three) times daily. [facility] gabapentin 300 mg capsule 2022-0 4-21 00:00: 00 Yes [id number] 300mg Take 1 capsule by mouth 3 (three) times daily. [facility] gabapentin 300 mg capsule 2022-0 4-21 00:00: 00 Yes [id number] 300mg Take 1 capsule by mouth 3 (three) times daily. [facility] gabapentin 300 mg capsule 2022-0 4-21 00:00: 00 Yes [id number] 300mg Take 1 capsule by mouth 3 (three) times daily. [facility] gabapentin 300 mg capsule 2022-0 4-21 00:00: 00 Yes [id number] 300mg Take 1 capsule by mouth 3 (three) times daily. [facility] gabapentin 300 mg capsule 2022-0 4-21 00:00: 00 Yes [id number] 300mg Take 1 capsule by mouth 3 (three) times daily. [facility] gabapentin 300 mg capsule 2022-0 4-21 00:00: 00 Yes [id number] 300mg Take 1 capsule by mouth 3 (three) times daily. [facility] gabapentin 300 mg capsule 2022-0 4-21 00:00: 00 Yes [id number] 300mg Take 1 capsule by mouth 3 (three) times daily. [facility] gabapentin 300 mg capsule 2-0 4-21 00:00: 00 Yes [id number] 300mg Take 1 capsule by mouth 3 (three) times daily. [facility] gabapentin 300 mg capsule 2-0 4-21 00:00: 00 Yes [id number] 300mg Take 1 capsule by mouth 3 (three) times daily. [facility] gabapentin 300 mg capsule 2-0 4-21 00:00: 00 Yes [id number] 300mg Take 1 capsule by mouth 3 (three) times daily. [facility] gabapentin 300 mg capsule 2-0 4-21 00:00: 00 Yes [id number] 300mg Take 1 capsule by mouth 3 (three) times daily. [facility] gabapentin 300 mg capsule 2-0 4-21 00:00: 00 Yes [id number] 300mg Take 1 capsule by mouth 3 (three) times daily. [facility] gabapentin 300 mg capsule 2-0 4-21 00:00: 00 Yes [id number] 300mg Take 1 capsule by mouth 3 (three) times daily. [facility] gabapentin 300 mg capsule 2-0 4-21 00:00: 00 Yes [id number] 300mg Take 1 capsule by mouth 3 (three) times daily. [facility] gabapentin 300 mg capsule 2022-0 4-21 00:00: 00 Yes [id number] 300mg Take 1 capsule by mouth 3 (three) times daily. [facility] gabapentin 300 mg capsule 2022-0 4-21 00:00: 00 Yes [id number] 300mg Take 1 capsule by mouth 3 (three) times daily. [facility] gabapentin 300 mg capsule 2022-0 4-21 00:00: 00 Yes [id number] 300mg Take 1 capsule by mouth 3 (three) times daily. [facility] gabapentin 300 mg capsule 2022-0 4-21 00:00: 00 Yes [id number] 300mg Take 1 capsule by mouth 3 (three) times daily. [facility] gabapentin 300 mg capsule 2022-0 4-21 00:00: 00 Yes [id number] 300mg Take 1 capsule by mouth 3 (three) times daily. [facility] gabapentin 300 mg capsule 2022-0 4-21 00:00: 00 Yes [id number] 300mg Take 1 capsule by mouth 3 (three) times daily. [facility] gabapentin 300 mg capsule 2022-0 4-21 00:00: 00 Yes [id number] 300mg Take 1 capsule by mouth 3 (three) times daily. [facility] gabapentin 300 mg capsule 2022-0 4-21 00:00: 00 Yes [id number] 300mg Take 1 capsule by mouth 3 (three) times daily. [facility] gabapentin 300 mg capsule 2022-0 4-21 00:00: 00 Yes [id number] 300mg Take 1 capsule by mouth 3 (three) times daily. [facility] gabapentin 300 mg capsule 2022-0 4-21 00:00: 00 Yes [id number] 300mg Take 1 capsule by mouth 3 (three) times daily. [facility] gabapentin 300 mg capsule 2022-0 4-21 00:00: 00 Yes [id number] 300mg Take 1 capsule by mouth 3 (three) times daily. [facility] gabapentin 300 mg capsule 2022-0 4-21 00:00: 00 Yes [id number] 300mg Take 1 capsule by mouth 3 (three) times daily. [facility] gabapentin 300 mg capsule 2022-0 4-21 00:00: 00 Yes [id number] 300mg Take 1 capsule by mouth 3 (three) times daily. [facility] gabapentin 300 mg capsule 2022-0 4-21 00:00: 00 Yes [id number] 300mg Take 1 capsule by mouth 3 (three) times daily. [facility] gabapentin 300 mg capsule 2022-0 4-21 00:00: 00 20228 00:00 :00 No [id number] 300mg Take 1 capsule by mouth 3 (three) times daily. [facility] gabapentin 300 mg capsule 2021-0 4-21 00:00: 00 10-11 00:00 :00 No [id number] 300mg Take 1 capsule by mouth 3 (three) times daily. [facility] gabapentin 300 mg capsule 2021-0 4-21 00:00: 00 10-11 00:00 :00 No [id number] 300mg Take 1 capsule by mouth 3 (three) times daily. [facility] gabapentin 300 mg capsule 0 4- 00:00: 00 10-11 00:00 :00 No [id number] 300mg Take 1 capsule by mouth 3 (three) times daily. [facility] gabapentin 300 mg capsule 2021-0 - 00:00: 00 10-11 00:00 :00 No [id number] 300mg Take 1 capsule by mouth 3 (three) times daily. [facility] gabapentin 300 mg capsule 0 - 00:00: 00 10-11 00:00 :00 No [id number] 300mg Take 1 capsule by mouth 3 (three) times daily. [facility] gabapentin 300 mg capsule 11-04 00:00: 00 10-11 00:00 :00 No [id number] 300mg Take 1 capsule by mouth 3 (three) times daily. [facility] adalimumab (HUMIRA,CF, PEN) 40 mg/0.4 mL injection 10-25 00:00: 00 03-07 00:00 :00 No [id number] 40mg inject 1 Pen under the skin every 14 (fourteen) days. [facility] adalimumab (HUMIRA,CF, PEN) 40 mg/0.4 mL injection 10-25 00:00: 00 03-07 00:00 :00 No [id number] 40mg inject 1 Pen under the skin every 14 (fourteen) days. [facility] adalimumab (HUMIRA,CF, PEN) 40 mg/0.4 mL injection 2022-0 4-11 00:00: 00 03-07 00:00 :00 No [id number] 40mg inject 1 Pen under the skin every 14 (fourteen) days. [facility] adalimumab (HUMIRA,CF, PEN) 40 mg/0.4 mL injection 4-11 00:00: 00 03-07 00:00 :00 No [id number] 40mg inject 1 Pen under the skin every 14 (fourteen) days. [facility] adalimumab (HUMIRA,CF, PEN) 40 mg/0.4 mL injection 4-11 00:00: 00 03-07 00:00 :00 No [id number] 40mg inject 1 Pen under the skin every 14 (fourteen) days. [facility] gabapentin 300 mg capsule 3- 00:00: 00 11-04 00:00 :00 No [id number] 300mg Take 1 capsule by mouth 3 (three) times daily for 30 days. [facility] gabapentin 300 mg capsule - 00:00: 00 11-04 00:00 :00 No [id number] 300mg Take 1 capsule by mouth 3 (three) times daily for 30 days. [facility] Lancets (ACCU-CHEK SOFTCLIX LANCETS) [facility] 2-15 00:00: 00 Yes [id number] Use as directed to check blood sugar once daily E11.9 [facility] Lancets (ACCU-CHEK SOFTCLIX LANCETS) [facility] 0 2-15 00:00: 00 Yes [id number] Use as directed to check blood sugar once daily E11.9 [facility] Lancets (ACCU-CHEK SOFTCLIX LANCETS) [facility] 0 2-15 00:00: 00 Yes [id number] Use as directed to check blood sugar once daily E11.9 [facility] Lancets (ACCU-CHEK SOFTCLIX LANCETS) [facility] 0 2-15 00:00: 00 Yes [id number] Use as directed to check blood sugar once daily E11.9 [facility] Lancets (ACCU-CHEK SOFTCLIX LANCETS) [facility] 0 2-15 00:00: 00 Yes [id number] Use as directed to check blood sugar once daily E11.9 [facility] Lancets (ACCU-CHEK SOFTCLIX LANCETS) [facility] 0 2-15 00:00: 00 Yes [id number] Use as directed to check blood sugar once daily E11.9 [facility] Lancets (ACCU-CHEK SOFTCLIX LANCETS) [facility] 0 2-15 00:00: 00 Yes [id number] Use as directed to check blood sugar once daily E11.9 [facility] Lancets (ACCU-CHEK SOFTCLIX LANCETS) [facility] 0 2-15 00:00: 00 Yes [id number] Use as directed to check blood sugar once daily E11.9 [facility] Lancets (ACCU-CHEK SOFTCLIX LANCETS) [facility] 0 2-15 00:00: 00 Yes [id number] Use as directed to check blood sugar once daily E11.9 [facility] Lancets (ACCU-CHEK SOFTCLIX LANCETS) [facility] 0 2-15 00:00: 00 Yes [id number] Use as directed to check blood sugar once daily E11.9 [facility] Lancets (ACCU-CHEK SOFTCLIX LANCETS) [facility] 0 2-15 00:00: 00 Yes [id number] Use as directed to check blood sugar once daily E11.9 [facility] Lancets (ACCU-CHEK SOFTCLIX LANCETS) [facility] 0 2-15 00:00: 00 Yes [id number] Use as directed to check blood sugar once daily E11.9 [facility] Lancets (ACCU-CHEK SOFTCLIX LANCETS) [facility] 0 2-15 00:00: 00 Yes [id number] Use as directed to check blood sugar once daily E11.9 [facility] Lancets (ACCU-CHEK SOFTCLIX LANCETS) [facility] 2021-0 2-15 00:00: 00 Yes [id number] Use as directed to check blood sugar once daily E11.9 [facility] Lancets (ACCU-CHEK SOFTCLIX LANCETS) [facility] 0 2-15 00:00: 00 Yes [id number] Use as directed to check blood sugar once daily E11.9 [facility] Lancets (ACCU-CHEK SOFTCLIX LANCETS) [facility] 2021-0 2-15 00:00: 00 Yes [id number] Use as directed to check blood sugar once daily E11.9 [facility] Lancets (ACCU-CHEK SOFTCLIX LANCETS) [facility] 0 2-15 00:00: 00 Yes [id number] Use as directed to check blood sugar once daily E11.9 [facility] Lancets (ACCU-CHEK SOFTCLIX LANCETS) [facility] 0 2-15 00:00: 00 Yes [id number] Use as directed to check blood sugar once daily E11.9 [facility] Lancets (ACCU-CHEK SOFTCLIX LANCETS) [facility] 0 2-15 00:00: 00 Yes [id number] Use as directed to check blood sugar once daily E11.9 [facility] Lancets (ACCU-CHEK SOFTCLIX LANCETS) [facility] 0 2-15 00:00: 00 Yes [id number] Use as directed to check blood sugar once daily E11.9 [facility] Lancets (ACCU-CHEK SOFTCLIX LANCETS) [facility] 0 2-15 00:00: 00 Yes [id number] Use as directed to check blood sugar once daily E11.9 [facility] Lancets (ACCU-CHEK SOFTCLIX LANCETS) [facility] 0 2-15 00:00: 00 Yes [id number] Use as directed to check blood sugar once daily E11.9 [facility] Lancets (ACCU-CHEK SOFTCLIX LANCETS) [facility] 0 2-15 00:00: 00 Yes [id number] Use as directed to check blood sugar once daily E11.9 [facility] Lancets (ACCU-CHEK SOFTCLIX LANCETS) [facility] 0 2-15 00:00: 00 Yes [id number] Use as directed to check blood sugar once daily E11.9 [facility] Lancets (ACCU-CHEK SOFTCLIX LANCETS) [facility] 0 2-15 00:00: 00 Yes [id number] Use as directed to check blood sugar once daily E11.9 [facility] Lancets (ACCU-CHEK SOFTCLIX LANCETS) [facility] 0 2-15 00:00: 00 Yes [id number] Use as directed to check blood sugar once daily E11.9 [facility] Lancets (ACCU-CHEK SOFTCLIX LANCETS) [facility] 0 2-15 00:00: 00 Yes [id number] Use as directed to check blood sugar once daily E11.9 [facility] Lancets (ACCU-CHEK SOFTCLIX LANCETS) [facility] 0 2-15 00:00: 00 Yes [id number] Use as directed to check blood sugar once daily E11.9 [facility] Lancets (ACCU-CHEK SOFTCLIX LANCETS) [facility] 0 2-15 00:00: 00 Yes [id number] Use as directed to check blood sugar once daily E11.9 [facility] Lancets (ACCU-CHEK SOFTCLIX LANCETS) [facility] 0 2-15 00:00: 00 Yes [id number] Use as directed to check blood sugar once daily E11.9 [facility] Lancets (ACCU-CHEK SOFTCLIX LANCETS) [facility] 0 2-15 00:00: 00 Yes [id number] Use as directed to check blood sugar once daily E11.9 [facility] Lancets (ACCU-CHEK SOFTCLIX LANCETS) [facility] 0 2-15 00:00: 00 Yes [id number] Use as directed to check blood sugar once daily E11.9 [facility] Lancets (ACCU-CHEK SOFTCLIX LANCETS) [facility] 0 2-15 00:00: 00 Yes [id number] Use as directed to check blood sugar once daily E11.9 [facility] Lancets (ACCU-CHEK SOFTCLIX LANCETS) [facility] 0 2-15 00:00: 00 Yes [id number] Use as directed to check blood sugar once daily E11.9 [facility] Lancets (ACCU-CHEK SOFTCLIX LANCETS) [facility] 0 2-15 00:00: 00 Yes [id number] Use as directed to check blood sugar once daily E11.9 [facility] Lancets (ACCU-CHEK SOFTCLIX LANCETS) [facility] 0 2-15 00:00: 00 Yes [id number] Use as directed to check blood sugar once daily E11.9 [facility] Lancets (ACCU-CHEK SOFTCLIX LANCETS) [facility] 0 2-15 00:00: 00 Yes [id number] Use as directed to check blood sugar once daily E11.9 [facility] Lancets (ACCU-CHEK SOFTCLIX LANCETS) [facility] 0 2-15 00:00: 00 Yes [id number] Use as directed to check blood sugar once daily E11.9 [facility] Lancets (ACCU-CHEK SOFTCLIX LANCETS) [facility] 0 2-15 00:00: 00 Yes [id number] Use as directed to check blood sugar once daily E11.9 [facility] Lancets (ACCU-CHEK SOFTCLIX LANCETS) [facility] 0 2-15 00:00: 00 Yes [id number] Use as directed to check blood sugar once daily E11.9 [facility] Lancets (ACCU-CHEK SOFTCLIX LANCETS) [facility] 0 2-15 00:00: 00 Yes [id number] Use as directed to check blood sugar once daily E11.9 [facility] Lancets (ACCU-CHEK SOFTCLIX LANCETS) [facility] 0 2-15 00:00: 00 Yes [id number] Use as directed to check blood sugar once daily E11.9 [facility] Lancets (ACCU-CHEK SOFTCLIX LANCETS) [facility] 0 2-15 00:00: 00 Yes [id number] Use as directed to check blood sugar once daily E11.9 [facility] Lancets (ACCU-CHEK SOFTCLIX LANCETS) [facility] 0 2-15 00:00: 00 Yes [id number] Use as directed to check blood sugar once daily E11.9 [facility] Lancets (ACCU-CHEK SOFTCLIX LANCETS) [facility] 0 2-15 00:00: 00 Yes [id number] Use as directed to check blood sugar once daily E11.9 [facility] Lancets (ACCU-CHEK SOFTCLIX LANCETS) [facility] 0 2-15 00:00: 00 Yes [id number] Use as directed to check blood sugar once daily E11.9 [facility] Lancets (ACCU-CHEK SOFTCLIX LANCETS) [facility] 0 2-15 00:00: 00 Yes [id number] Use as directed to check blood sugar once daily E11.9 [facility] Lancets (ACCU-CHEK SOFTCLIX LANCETS) [facility] 0 2-15 00:00: 00 Yes [id number] Use as directed to check blood sugar once daily E11.9 [facility] Lancets (ACCU-CHEK SOFTCLIX LANCETS) [facility] 0 2-15 00:00: 00 Yes [id number] Use as directed to check blood sugar once daily E11.9 [facility] Lancets (ACCU-CHEK SOFTCLIX LANCETS) [facility] 0 2-15 00:00: 00 Yes [id number] Use as directed to check blood sugar once daily E11.9 [facility] Lancets (ACCU-CHEK SOFTCLIX LANCETS) [facility] 0 2-15 00:00: 00 Yes [id number] Use as directed to check blood sugar once daily E11.9 [facility] Lancets (ACCU-CHEK SOFTCLIX LANCETS) [facility] 0 2-15 00:00: 00 Yes [id number] Use as directed to check blood sugar once daily E11.9 [facility] Lancets (ACCU-CHEK SOFTCLIX LANCETS) [facility] 0 2-15 00:00: 00 Yes [id number] Use as directed to check blood sugar once daily E11.9 [facility] Lancets (ACCU-CHEK SOFTCLIX LANCETS) [facility] 0 2-15 00:00: 00 Yes [id number] Use as directed to check blood sugar once daily E11.9 [facility] Lancets (ACCU-CHEK SOFTCLIX LANCETS) [facility] 0 2-15 00:00: 00 Yes [id number] Use as directed to check blood sugar once daily E11.9 [facility] Lancets (ACCU-CHEK SOFTCLIX LANCETS) [facility] 0 2-15 00:00: 00 Yes [id number] Use as directed to check blood sugar once daily E11.9 [facility] Lancets (ACCU-CHEK SOFTCLIX LANCETS) [facility] 0 2-15 00:00: 00 Yes [id number] Use as directed to check blood sugar once daily E11.9 [facility] Lancets (ACCU-CHEK SOFTCLIX LANCETS) [facility] 0 2-15 00:00: 00 Yes [id number] Use as directed to check blood sugar once daily E11.9 [facility] Lancets (ACCU-CHEK SOFTCLIX LANCETS) [facility] 0 2-15 00:00: 00 Yes [id number] Use as directed to check blood sugar once daily E11.9 [facility] Lancets (ACCU-CHEK SOFTCLIX LANCETS) [facility] 0 2-15 00:00: 00 Yes [id number] Use as directed to check blood sugar once daily E11.9 [facility] Lancets (ACCU-CHEK SOFTCLIX LANCETS) [facility] 0 2-15 00:00: 00 Yes [id number] Use as directed to check blood sugar once daily E11.9 [facility] Lancets (ACCU-CHEK SOFTCLIX LANCETS) [facility] 2021-0 2-15 00:00: 00 Yes [id number] Use as directed to check blood sugar once daily E11.9 [facility] Lancets (ACCU-CHEK SOFTCLIX LANCETS) [facility] 2021-0 2-15 00:00: 00 Yes [id number] Use as directed to check blood sugar once daily E11.9 [facility] Lancets (ACCU-CHEK SOFTCLIX LANCETS) [facility] 2021-0 2-15 00:00: 00 Yes [id number] Use as directed to check blood sugar once daily E11.9 [facility] Lancets (ACCU-CHEK SOFTCLIX LANCETS) [facility] 0 2-15 00:00: 00 Yes [id number] Use as directed to check blood sugar once daily E11.9 [facility] Lancets (ACCU-CHEK SOFTCLIX LANCETS) [facility] 0 2-15 00:00: 00 Yes [id number] Use as directed to check blood sugar once daily E11.9 [facility] Lancets (ACCU-CHEK SOFTCLIX LANCETS) [facility] 0 2-15 00:00: 00 Yes [id number] Use as directed to check blood sugar once daily E11.9 [facility] Lancets (ACCU-CHEK SOFTCLIX LANCETS) [facility] 0 2-15 00:00: 00 Yes [id number] Use as directed to check blood sugar once daily E11.9 [facility] Lancets (ACCU-CHEK SOFTCLIX LANCETS) [facility] 0 2-15 00:00: 00 Yes [id number] Use as directed to check blood sugar once daily E11.9 [facility] Lancets (ACCU-CHEK SOFTCLIX LANCETS) [facility] 0 2-15 00:00: 00 Yes [id number] Use as directed to check blood sugar once daily E11.9 [facility] Lancets (ACCU-CHEK SOFTCLIX LANCETS) [facility] 0 2-15 00:00: 00 Yes [id number] Use as directed to check blood sugar once daily E11.9 [facility] Lancets (ACCU-CHEK SOFTCLIX LANCETS) [facility] 0 2-15 00:00: 00 Yes [id number] Use as directed to check blood sugar once daily E11.9 [facility] Lancets (ACCU-CHEK SOFTCLIX LANCETS) [facility] 0 2-15 00:00: 00 Yes [id number] Use as directed to check blood sugar once daily E11.9 [facility] Lancets (ACCU-CHEK SOFTCLIX LANCETS) [facility] 2-15 00:00: 00 Yes [id number] Use as directed to check blood sugar once daily E11.9 [facility] Lancets (ACCU-CHEK SOFTCLIX LANCETS) [facility] 0 2-15 00:00: 00 Yes [id number] Use as directed to check blood sugar once daily E11.9 [facility] Lancets (ACCU-CHEK SOFTCLIX LANCETS) [facility] 0 2-15 00:00: 00 Yes [id number] Use as directed to check blood sugar once daily E11.9 [facility] Lancets (ACCU-CHEK SOFTCLIX LANCETS) [facility] 0 2-15 00:00: 00 Yes [id number] Use as directed to check blood sugar once daily E11.9 [facility] Lancets (ACCU-CHEK SOFTCLIX LANCETS) [facility] 0 2-15 00:00: 00 Yes [id number] Use as directed to check blood sugar once daily E11.9 [facility] Lancets (ACCU-CHEK SOFTCLIX LANCETS) [facility] 0 2-15 00:00: 00 Yes [id number] Use as directed to check blood sugar once daily E11.9 [facility] Lancets (ACCU-CHEK SOFTCLIX LANCETS) [facility] 0 2-15 00:00: 00 Yes [id number] Use as directed to check blood sugar once daily E11.9 [facility] Lancets (ACCU-CHEK SOFTCLIX LANCETS) [facility] 0 2-15 00:00: 00 Yes [id number] Use as directed to check blood sugar once daily E11.9 [facility] Lancets (ACCU-CHEK SOFTCLIX LANCETS) [facility] 2021-0 2-15 00:00: 00 Yes [id number] Use as directed to check blood sugar once daily E11.9 [facility] Lancets (ACCU-CHEK SOFTCLIX LANCETS) [facility] 0 2-15 00:00: 00 Yes [id number] Use as directed to check blood sugar once daily E11.9 [facility] Lancets (ACCU-CHEK SOFTCLIX LANCETS) [facility] 0 2-15 00:00: 00 Yes [id number] Use as directed to check blood sugar once daily E11.9 [facility] Lancets (ACCU-CHEK SOFTCLIX LANCETS) [facility] 0 2-15 00:00: 00 Yes [id number] Use as directed to check blood sugar once daily E11.9 [facility] Lancets (ACCU-CHEK SOFTCLIX LANCETS) [facility] 0 2-15 00:00: 00 Yes [id number] Use as directed to check blood sugar once daily E11.9 [facility] Lancets (ACCU-CHEK SOFTCLIX LANCETS) [facility] 0 2-15 00:00: 00 Yes [id number] Use as directed to check blood sugar once daily E11.9 [facility] Lancets (ACCU-CHEK SOFTCLIX LANCETS) [facility] 0 2-15 00:00: 00 Yes [id number] Use as directed to check blood sugar once daily E11.9 [facility] Lancets (ACCU-CHEK SOFTCLIX LANCETS) [facility] 0 2-15 00:00: 00 Yes [id number] Use as directed to check blood sugar once daily E11.9 [facility] Lancets (ACCU-CHEK SOFTCLIX LANCETS) [facility] 0 2-15 00:00: 00 Yes [id number] Use as directed to check blood sugar once daily E11.9 [facility] Lancets (ACCU-CHEK SOFTCLIX LANCETS) [facility] 2021-0 2-15 00:00: 00 Yes [id number] Use as directed to check blood sugar once daily E11.9 [facility] Lancets (ACCU-CHEK SOFTCLIX LANCETS) [facility] 0 2-15 00:00: 00 Yes [id number] Use as directed to check blood sugar once daily E11.9 [facility] Lancets (ACCU-CHEK SOFTCLIX LANCETS) [facility] 2021-0 2-15 00:00: 00 Yes [id number] Use as directed to check blood sugar once daily E11.9 [facility] Lancets (ACCU-CHEK SOFTCLIX LANCETS) [facility] 0 2-15 00:00: 00 Yes [id number] Use as directed to check blood sugar once daily E11.9 [facility] Lancets (ACCU-CHEK SOFTCLIX LANCETS) [facility] 0 2-15 00:00: 00 Yes [id number] Use as directed to check blood sugar once daily E11.9 [facility] Lancets (ACCU-CHEK SOFTCLIX LANCETS) [facility] 0 2-15 00:00: 00 Yes [id number] Use as directed to check blood sugar once daily E11.9 [facility] Lancets (ACCU-CHEK SOFTCLIX LANCETS) [facility] 0 2-15 00:00: 00 Yes [id number] Use as directed to check blood sugar once daily E11.9 [facility] Lancets (ACCU-CHEK SOFTCLIX LANCETS) [facility] 0 2-15 00:00: 00 Yes [id number] Use as directed to check blood sugar once daily E11.9 [facility] Lancets (ACCU-CHEK SOFTCLIX LANCETS) [facility] 0 2-15 00:00: 00 Yes [id number] Use as directed to check blood sugar once daily E11.9 [facility] Lancets (ACCU-CHEK SOFTCLIX LANCETS) [facility] 0 2-15 00:00: 00 Yes [id number] Use as directed to check blood sugar once daily E11.9 [facility] Lancets (ACCU-CHEK SOFTCLIX LANCETS) [facility] 0 2-15 00:00: 00 Yes [id number] Use as directed to check blood sugar once daily E11.9 [facility] Lancets (ACCU-CHEK SOFTCLIX LANCETS) [facility] 0 2-15 00:00: 00 Yes [id number] Use as directed to check blood sugar once daily E11.9 [facility] Lancets (ACCU-CHEK SOFTCLIX LANCETS) Mis 2-15 00:00: 00 Yes [id number] Use as directed to check blood sugar once daily E11.9 [facility] Lancets (ACCU-CHEK SOFTCLIX LANCETS) [facility] 2-15 00:00: 00 Yes [id number] Use as directed to check blood sugar once daily E11.9 [facility] Lancets (ACCU-CHEK SOFTCLIX LANCETS) Mis 2-15 00:00: 00 Yes [id number] Use as directed to check blood sugar once daily E11.9 [facility] Lancets (ACCU-CHEK SOFTCLIX LANCETS) [facility] 0 2-15 00:00: 00 Yes [id number] Use as directed to check blood sugar once daily E11.9 [facility] Lancets (ACCU-CHEK SOFTCLIX LANCETS) [facility] 2-15 00:00: 00 Yes [id number] Use as directed to check blood sugar once daily E11.9 [facility] blood sugar diagnostic (ACCU-CHEK GUIDE TEST STRIPS) strip 2-15 00:00: 00 02-27 00:00 :00 No [id number] Use as directed to check blood sugar once daily E11.9 [facility] diagnostic (ACCU-CHEK GUIDE TEST STRIPS) strip 2-15 00:00: 00 02-27 00:00 :00 No [id number] Use as directed to check blood sugar once daily E11.9 [facility] (ACCU-CHEK GUIDE TEST STRIPS) strip 2022-0 2-15 00:00: 00 02-27 00:00 :00 No [id number] Use as directed to check blood sugar once daily E11.9 Univers [facility] blood sugar diagnostic (ACCU-CHEK GUIDE TEST STRIPS) strip 2-15 00:00: 00 02-27 00:00 :00 No [id number] Use as directed to check blood sugar once daily E11.9 Univers [facility] blood sugar diagnostic (ACCU-CHEK GUIDE TEST STRIPS) strip 2-15 00:00: 00 02-27 00:00 :00 No [id number] Use as directed to check blood sugar once daily E11.9 [facility] blood sugar diagnostic (ACCU-CHEK GUIDE TEST STRIPS) strip 2-15 00:00: 00 02-27 00:00 :00 No [id number] Use as directed to check blood sugar once daily E11.9 [facility] blood sugar diagnostic (ACCU-CHEK GUIDE TEST STRIPS) strip 2-15 00:00: 00 02-27 00:00 :00 No [id number] Use as directed to check blood sugar once daily E11.9 [facility] metformin ER 500 mg 24 hr tablet - 00:00: 00 Yes [id number] 1000mg Take 2 tablets by mouth daily with breakfast. [facility] metformin ER 500 mg 24 hr tablet - 00:00: 00 Yes [id number] 1000mg Take 2 tablets by mouth daily with breakfast. [facility] metformin ER 500 mg 24 hr tablet - 00:00: 00 Yes [id number] 1000mg Take 2 tablets by mouth daily with breakfast. [facility] metformin ER 500 mg 24 hr tablet - 00:00: 00 Yes [id number] 1000mg Take 2 tablets by mouth daily with breakfast. [facility] metformin ER 500 mg 24 hr tablet 2- 00:00: 00 Yes [id number] 1000mg Take 2 tablets by mouth daily with breakfast. [facility] metformin ER 500 mg 24 hr tablet 2022-0 2-08 00:00: 00 Yes [id number] 1000mg Take 2 tablets by mouth daily with breakfast. [facility] metformin ER 500 mg 24 hr tablet 2021-0 2-08 00:00: 00 Yes [id number] 1000mg Take 2 tablets by mouth daily with breakfast. [facility] metformin ER 500 mg 24 hr tablet 2-0 2-08 00:00: 00 Yes [id number] 1000mg Take 2 tablets by mouth daily with breakfast. [facility] metformin ER 500 mg 24 hr tablet 2021-0 2-08 00:00: 00 Yes [id number] 1000mg Take 2 tablets by mouth daily with breakfast. [facility] metformin ER 500 mg 24 hr tablet 2021-0 2-08 00:00: 00 Yes [id number] 1000mg Take 2 tablets by mouth daily with breakfast. [facility] metformin ER 500 mg 24 hr tablet 2-0 2-08 00:00: 00 Yes [id number] 1000mg Take 2 tablets by mouth daily with breakfast. [facility] metformin ER 500 mg 24 hr tablet 2021-0 2-08 00:00: 00 Yes [id number] 1000mg Take 2 tablets by mouth daily with breakfast. [facility] metformin ER 500 mg 24 hr tablet 2021-0 2-08 00:00: 00 Yes [id number] 1000mg Take 2 tablets by mouth daily with breakfast. [facility] metformin ER 500 mg 24 hr tablet 2-0 2-08 00:00: 00 Yes [id number] 1000mg Take 2 tablets by mouth daily with breakfast. [facility] metformin ER 500 mg 24 hr tablet 2021-0 2-08 00:00: 00 Yes [id number] 1000mg Take 2 tablets by mouth daily with breakfast. [facility] metformin ER 500 mg 24 hr tablet 2-0 2-08 00:00: 00 Yes [id number] 1000mg Take 2 tablets by mouth daily with breakfast. [facility] metformin ER 500 mg 24 hr tablet 2-0 2-08 00:00: 00 Yes [id number] 1000mg Take 2 tablets by mouth daily with breakfast. [facility] metformin ER 500 mg 24 hr tablet 2-0 2-08 00:00: 00 Yes [id number] 1000mg Take 2 tablets by mouth daily with breakfast. [facility] metformin ER 500 mg 24 hr tablet 2-0 2-08 00:00: 00 Yes [id number] 1000mg Take 2 tablets by mouth daily with breakfast. [facility] metformin ER 500 mg 24 hr tablet 2-0 2-08 00:00: 00 Yes [id number] 1000mg Take 2 tablets by mouth daily with breakfast. [facility] metformin ER 500 mg 24 hr tablet 2-0 2-08 00:00: 00 Yes [id number] 1000mg Take 2 tablets by mouth daily with breakfast. [facility] metformin ER 500 mg 24 hr tablet 2-0 2-08 00:00: 00 Yes [id number] 1000mg Take 2 tablets by mouth daily with breakfast. [facility] metformin ER 500 mg 24 hr tablet 2-0 2-08 00:00: 00 Yes [id number] 1000mg Take 2 tablets by mouth daily with breakfast. [facility] metformin ER 500 mg 24 hr tablet 2021-0 2-08 00:00: 00 07-20 00:00 :00 No [id number] 1000mg Take 2 tablets by mouth daily with breakfast. [facility] metformin ER 500 mg 24 hr tablet 2-0 2-08 00:00: 00 07-20 00:00 :00 No [id number] 1000mg Take 2 tablets by mouth daily with breakfast. [facility] metformin ER 500 mg 24 hr tablet 2-0 2-08 00:00: 00 07-20 00:00 :00 No [id number] 1000mg Take 2 tablets by mouth daily with breakfast. [facility] metformin ER 500 mg 24 hr tablet 2-0 2-08 00:00: 00 07-20 00:00 :00 No [id number] 1000mg Take 2 tablets by mouth daily with breakfast. [facility] metformin ER 500 mg 24 hr tablet 2-0 2-08 00:00: 00 07-20 00:00 :00 No [id number] 1000mg Take 2 tablets by mouth daily with breakfast. [facility] metformin ER 500 mg 24 hr tablet 2021-0 2-08 00:00: 00 07-20 00:00 :00 No [id number] 1000mg Take 2 tablets by mouth daily with breakfast. [facility] metformin ER 500 mg 24 hr tablet 2-08 00:00: 00 07-20 00:00 :00 No [id number] 1000mg Take 2 tablets by mouth daily with breakfast. [facility] metformin ER 500 mg 24 hr tablet 208 00:00: 00 07-20 00:00 :00 No [id number] 1000mg Take 2 tablets by mouth daily with breakfast. [facility] metformin ER 500 mg 24 hr tablet 2 00:00: 00 07-20 00:00 :00 No [id number] 1000mg Take 2 tablets by mouth daily with breakfast. [facility] levothyroxi ne 50 mcg tablet 08-18 00:00: 00 Yes 50ug Take 50 mcg by mouth. [facility] levothyroxi ne 50 mcg tablet 08-18 00:00: 00 Yes 50ug Take 50 mcg by mouth. [facility] levothyroxi ne 50 mcg tablet 08-18 00:00: 00 Yes 50ug Take 50 mcg by mouth. [facility] levothyroxi ne 50 mcg tablet 08-18 00:00: 00 Yes 50ug Take 50 mcg by mouth. [facility] levothyroxi ne 50 mcg tablet 08-18 00:00: 00 Yes 50ug Take 50 mcg by mouth. [facility] levothyroxi ne 50 mcg tablet 08-18 00:00: 00 Yes 50ug Take 50 mcg by mouth. [facility] levothyroxi ne 50 mcg tablet 08-18 00:00: 00 Yes 50ug Take 50 mcg by mouth. [facility] levothyroxi ne 50 mcg tablet 08-18 00:00: 00 Yes 50ug Take 50 mcg by mouth. [facility] levothyroxi ne 50 mcg tablet 08-18 00:00: 00 Yes 50ug Take 50 mcg by mouth. [facility] levothyroxi ne 50 mcg tablet 08-18 00:00: 00 Yes 50ug Take 50 mcg by mouth. [facility] levothyroxi ne 50 mcg tablet 08-18 00:00: 00 Yes 50ug Take 50 mcg by mouth. [facility] levothyroxi ne 50 mcg tablet 08-18 00:00: 00 Yes 50ug Take 50 mcg by mouth. [facility] levothyroxi ne 50 mcg tablet 08-18 00:00: 00 Yes 50ug Take 50 mcg by mouth. [facility] levothyroxi ne 50 mcg tablet 08-18 00:00: 00 Yes 50ug Take 50 mcg by mouth. [facility] levothyroxi ne 50 mcg tablet 08-18 00:00: 00 Yes 50ug Take 50 mcg by mouth. [facility] levothyroxi ne 50 mcg tablet 08-18 00:00: 00 Yes 50ug Take 50 mcg by mouth. [facility] levothyroxi ne 50 mcg tablet 08-18 00:00: 00 Yes 50ug Take 50 mcg by mouth. [facility] levothyroxi ne 50 mcg tablet 08-18 00:00: 00 Yes 50ug Take 50 mcg by mouth. [facility] levothyroxi ne 50 mcg tablet 08-18 00:00: 00 Yes 50ug Take 50 mcg by mouth. [facility] levothyroxi ne 50 mcg tablet 08-18 00:00: 00 Yes 50ug Take 50 mcg by mouth. [facility] levothyroxi ne 50 mcg tablet 08-18 00:00: 00 Yes 50ug Take 50 mcg by mouth. [facility] levothyroxi ne 50 mcg tablet 08-18 00:00: 00 Yes 50ug Take 50 mcg by mouth. [facility] levothyroxi ne 50 mcg tablet 0 08-18 00:00: 00 Yes 50ug Take 50 mcg by mouth. [facility] levothyroxi ne 50 mcg tablet 08-18 00:00: 00 Yes 50ug Take 50 mcg by mouth. [facility] levothyroxi ne 50 mcg tablet 08-18 00:00: 00 Yes 50ug Take 50 mcg by mouth. [facility] levothyroxi ne 50 mcg tablet 0 08-18 00:00: 00 Yes 50ug Take 50 mcg by mouth. [facility] levothyroxi ne 50 mcg tablet 08-18 00:00: 00 Yes 50ug Take 50 mcg by mouth. [facility] levothyroxi ne 50 mcg tablet 08-18 00:00: 00 Yes 50ug Take 50 mcg by mouth. [facility] levothyroxi ne 50 mcg tablet 08-18 00:00: 00 Yes 50ug Take 50 mcg by mouth. [facility] levothyroxi ne 50 mcg tablet 08-18 00:00: 00 Yes 50ug Take 50 mcg by mouth. [facility] levothyroxi ne 50 mcg tablet 08-18 00:00: 00 09-13 00:00 :00 No 50ug Take 50 mcg by mouth. [facility] levothyroxi ne 50 mcg tablet 08-18 00:00: 00 09-13 00:00 :00 No 50ug Take 50 mcg by mouth. [facility] levothyroxi ne 50 mcg tablet 08-18 00:00: 00 09-13 00:00 :00 No 50ug Take 50 mcg by mouth. [facility] levothyroxi ne 50 mcg tablet 08-18 00:00: 00 09-13 00:00 :00 No 50ug Take 50 mcg by mouth. [facility] levothyroxi ne 50 mcg tablet 0 2- 00:00: 00 09-13 00:00 :00 No 50ug Take 50 mcg by mouth. [facility] levothyroxi ne 50 mcg tablet 2- 00:00: 00 09-13 00:00 :00 No 50ug Take 50 mcg by mouth. [facility] levothyroxi ne 50 mcg tablet 2 00:00: 00 09-13 00:00 :00 No 50ug Take 50 mcg by mouth. [facility] levothyroxi ne 50 mcg tablet 08-18 00:00: 00 09-13 00:00 :00 No 50ug Take 50 mcg by mouth. [facility] pantoprazol e 40 mg EC tablet 0 1- 00:00: 00 Yes 40mg Take 40 mg by mouth every morning. [facility] pantoprazol e 40 mg EC tablet 0 1- 00:00: 00 Yes 40mg Take 40 mg by mouth every morning. [facility] pantoprazol e 40 mg EC tablet 0 1-10 00:00: 00 04-08 00:00 :00 No 40mg Take 40 mg by mouth every morning. [facility] pantoprazol e 40 mg EC tablet 0 1-10 00:00: 00 04-08 00:00 :00 No 40mg Take 40 mg by mouth every morning. [facility] pantoprazol e 40 mg EC tablet 0 1-10 00:00: 00 04-08 00:00 :00 No 40mg Take 40 mg by mouth every morning. [facility] [facility] 0 1-10 00:00: 00 04-08 00:00 :00 No 40mg Take 40 mg by mouth every morning. [facility] pantoprazol e 40 mg EC tablet 0 1-10 00:00: 00 04-08 00:00 :00 No 40mg Take 40 mg by mouth every morning. [facility] pantoprazol e 40 mg EC tablet 1-10 00:00: 00 04-08 00:00 :00 No 40mg Take 40 mg by mouth every morning. [facility] pantoprazol e 40 mg EC tablet 1-10 00:00: 00 04-08 00:00 :00 No 40mg Take 40 mg by mouth every morning. [facility] pantoprazol e 40 mg EC tablet 1-10 00:00: 00 04-08 00:00 :00 No 40mg Take 40 mg by mouth every morning. [facility] pantoprazol e 40 mg EC tablet - 00:00: 00 04-08 00:00 :00 No 40mg Take 40 mg by mouth every morning. [facility] adalimumab (HUMIRA,CF, PEN) 40 mg/0.4 mL injection 2020-07 00:00: 00 10-25 00:00 :00 No [id number] 40mg inject 1 Pen under the skin every 14 (fourteen) days. [facility] simvastatin 40 mg tablet 03-09 00:00: 00 02-21 00:00 :00 No [id number] 40mg Take 1 tablet by mouth at bedtime. [facility] simvastatin 40 mg tablet 03-09 00:00: 00 02-21 00:00 :00 No [id number] 40mg Take 1 tablet by mouth at bedtime. [facility] simvastatin 40 mg tablet 03-09 00:00: 00 02-21 00:00 :00 No [id number] 40mg Take 1 tablet by mouth at bedtime. [facility] simvastatin 40 mg tablet 03-09 00:00: 00 02-21 00:00 :00 No [id number] 40mg Take 1 tablet by mouth at bedtime. [facility] simvastatin 40 mg tablet 03-09 00:00: 00 02-21 00:00 :00 No [id number] 40mg Take 1 tablet by mouth at bedtime. [facility] simvastatin 40 mg tablet 03-09 00:00: 00 02-21 00:00 :00 No [id number] 40mg Take 1 tablet by mouth at bedtime. [facility] simvastatin 40 mg tablet 03-09 00:00: 00 02-21 00:00 :00 No [id number] 40mg Take 1 tablet by mouth at bedtime. [facility] metformin ER 500 mg 24 hr tablet 02-16 00:00: 00 08-13 00:00 :00 No [id number] TAKE 1 TABLET BY MOUTH EVERY DAY WITH THE EVENING MEAL [facility] metformin ER 500 mg 24 hr tablet 02-16 00:00: 00 08-13 00:00 :00 No [id number] TAKE 1 TABLET BY MOUTH EVERY DAY WITH THE EVENING MEAL [facility] lamoTRIgine 200 mg tablet 12-08 00:00: 00 Yes 200mg Take 200 mg by mouth at bedtime. [facility] QUEtiapine 100 mg tablet 12-08 00:00: 00 Yes 100mg Take 100 mg by mouth at bedtime. [facility] SERTraline 50 mg tablet 12-08 00:00: 00 Yes 50mg Take 50 mg by mouth at bedtime. [facility] lamoTRIgine 200 mg tablet 12-08 00:00: 00 Yes 200mg Take 200 mg by mouth at bedtime. [facility] QUEtiapine 100 mg tablet 12-08 00:00: 00 Yes 100mg Take 100 mg by mouth at bedtime. [facility] SERTraline 50 mg tablet 12-08 00:00: 00 Yes 50mg Take 50 mg by mouth at bedtime. [facility] lamoTRIgine 200 mg tablet 12-08 00:00: 00 Yes 200mg Take 200 mg by mouth at bedtime. [facility] QUEtiapine 100 mg tablet 12-08 00:00: 00 Yes 100mg Take 100 mg by mouth at bedtime. [facility] SERTraline 50 mg tablet 12-08 00:00: 00 Yes 50mg Take 50 mg by mouth at bedtime. [facility] lamoTRIgine 200 mg tablet 12-08 00:00: 00 Yes 200mg Take 200 mg by mouth at bedtime. [facility] QUEtiapine 100 mg tablet 12-08 00:00: 00 Yes 100mg Take 100 mg by mouth at bedtime. [facility] SERTraline 50 mg tablet 12-08 00:00: 00 Yes 50mg Take 50 mg by mouth at bedtime. [facility] lamoTRIgine 200 mg tablet 12-08 00:00: 00 Yes 200mg Take 200 mg by mouth at bedtime. [facility] QUEtiapine 100 mg tablet 12-08 00:00: 00 Yes 100mg Take 100 mg by mouth at bedtime. [facility] SERTraline 50 mg tablet 12-08 00:00: 00 Yes 50mg Take 50 mg by mouth at bedtime. [facility] lamoTRIgine 200 mg tablet 12-08 00:00: 00 Yes 200mg Take 200 mg by mouth at bedtime. [facility] QUEtiapine 100 mg tablet 12-08 00:00: 00 Yes 100mg Take 100 mg by mouth at bedtime. [facility] SERTraline 50 mg tablet 12-08 00:00: 00 Yes 50mg Take 50 mg by mouth at bedtime. [facility] lamoTRIgine 200 mg tablet 12-08 00:00: 00 Yes 200mg Take 200 mg by mouth at bedtime. [facility] QUEtiapine 100 mg tablet 12-08 00:00: 00 Yes 100mg Take 100 mg by mouth at bedtime. [facility] SERTraline 50 mg tablet 0 12-08 00:00: 00 Yes 50mg Take 50 mg by mouth at bedtime. [facility] lamoTRIgine 200 mg tablet 0 12-08 00:00: 00 Yes 200mg Take 200 mg by mouth at bedtime. [facility] QUEtiapine 100 mg tablet 0 12-08 00:00: 00 Yes 100mg Take 100 mg by mouth at bedtime. [facility] SERTraline 50 mg tablet 0 12-08 00:00: 00 Yes 50mg Take 50 mg by mouth at bedtime. [facility] lamoTRIgine 200 mg tablet 0 12-08 00:00: 00 Yes 200mg Take 200 mg by mouth at bedtime. [facility] QUEtiapine 100 mg tablet 0 12-08 00:00: 00 Yes 100mg Take 100 mg by mouth at bedtime. [facility] SERTraline 50 mg tablet 0 12-08 00:00: 00 Yes 50mg Take 50 mg by mouth at bedtime. [facility] lamoTRIgine 200 mg tablet 0 12-08 00:00: 00 Yes 200mg Take 200 mg by mouth at bedtime. [facility] QUEtiapine 100 mg tablet 0 12-08 00:00: 00 Yes 100mg Take 100 mg by mouth at bedtime. [facility] SERTraline 50 mg tablet 0 12-08 00:00: 00 Yes 50mg Take 50 mg by mouth at bedtime. [facility] lamoTRIgine 200 mg tablet 0 12-08 00:00: 00 Yes 200mg Take 200 mg by mouth at bedtime. [facility] QUEtiapine 100 mg tablet 0 12-08 00:00: 00 Yes 100mg Take 100 mg by mouth at bedtime. [facility] SERTraline 50 mg tablet 0 12-08 00:00: 00 Yes 50mg Take 50 mg by mouth at bedtime. [facility] lamoTRIgine 200 mg tablet 0 12-08 00:00: 00 Yes 200mg Take 200 mg by mouth at bedtime. [facility] QUEtiapine 100 mg tablet 12-08 00:00: 00 Yes 100mg Take 100 mg by mouth at bedtime. [facility] SERTraline 50 mg tablet 12-08 00:00: 00 Yes 50mg Take 50 mg by mouth at bedtime. [facility] lamoTRIgine 200 mg tablet 12-08 00:00: 00 Yes 200mg Take 200 mg by mouth at bedtime. [facility] QUEtiapine 100 mg tablet 12-08 00:00: 00 Yes 100mg Take 100 mg by mouth at bedtime. [facility] SERTraline 50 mg tablet 12-08 00:00: 00 Yes 50mg Take 50 mg by mouth at bedtime. [facility] lamoTRIgine 200 mg tablet 12-08 00:00: 00 Yes 200mg Take 200 mg by mouth at bedtime. [facility] QUEtiapine 100 mg tablet 12-08 00:00: 00 Yes 100mg Take 100 mg by mouth at bedtime. [facility] SERTraline 50 mg tablet 12-08 00:00: 00 Yes 50mg Take 50 mg by mouth at bedtime. [facility] lamoTRIgine 200 mg tablet 12-08 00:00: 00 Yes 200mg Take 200 mg by mouth at bedtime. [facility] QUEtiapine 100 mg tablet 12-08 00:00: 00 Yes 100mg Take 100 mg by mouth at bedtime. [facility] SERTraline 50 mg tablet 12-08 00:00: 00 Yes 50mg Take 50 mg by mouth at bedtime. [facility] lamoTRIgine 200 mg tablet 12-08 00:00: 00 Yes 200mg Take 200 mg by mouth at bedtime. [facility] QUEtiapine 100 mg tablet 12-08 00:00: 00 Yes 100mg Take 100 mg by mouth at bedtime. [facility] SERTraline 50 mg tablet 12-08 00:00: 00 Yes 50mg Take 50 mg by mouth at bedtime. [facility] lamoTRIgine 200 mg tablet 0 12-08 00:00: 00 Yes 200mg Take 200 mg by mouth at bedtime. [facility] QUEtiapine 100 mg tablet 0 12-08 00:00: 00 Yes 100mg Take 100 mg by mouth at bedtime. [facility] SERTraline 50 mg tablet 0 12-08 00:00: 00 Yes 50mg Take 50 mg by mouth at bedtime. [facility] lamoTRIgine 200 mg tablet 0 12-08 00:00: 00 Yes 200mg Take 200 mg by mouth at bedtime. [facility] QUEtiapine 100 mg tablet 0 12-08 00:00: 00 Yes 100mg Take 100 mg by mouth at bedtime. [facility] SERTraline 50 mg tablet 0 12-08 00:00: 00 Yes 50mg Take 50 mg by mouth at bedtime. [facility] lamoTRIgine 200 mg tablet 0 12-08 00:00: 00 Yes 200mg Take 200 mg by mouth at bedtime. [facility] QUEtiapine 100 mg tablet 0 12-08 00:00: 00 Yes 100mg Take 100 mg by mouth at bedtime. [facility] SERTraline 50 mg tablet 12-08 00:00: 00 Yes 50mg Take 50 mg by mouth at bedtime. [facility] lamoTRIgine 200 mg tablet 0 12-08 00:00: 00 Yes 200mg Take 200 mg by mouth at bedtime. [facility] QUEtiapine 100 mg tablet 0 12-08 00:00: 00 Yes 100mg Take 100 mg by mouth at bedtime. [facility] SERTraline 50 mg tablet 0 12-08 00:00: 00 Yes 50mg Take 50 mg by mouth at bedtime. [facility] lamoTRIgine 200 mg tablet 0 12-08 00:00: 00 Yes 200mg Take 200 mg by mouth at bedtime. [facility] QUEtiapine 100 mg tablet 12-08 00:00: 00 Yes 100mg Take 100 mg by mouth at bedtime. [facility] SERTraline 50 mg tablet 12-08 00:00: 00 Yes 50mg Take 50 mg by mouth at bedtime. [facility] lamoTRIgine 200 mg tablet 0 12-08 00:00: 00 Yes 200mg Take 200 mg by mouth at bedtime. [facility] QUEtiapine 100 mg tablet 12-08 00:00: 00 Yes 100mg Take 100 mg by mouth at bedtime. [facility] SERTraline 50 mg tablet 12-08 00:00: 00 Yes 50mg Take 50 mg by mouth at bedtime. [facility] lamoTRIgine 200 mg tablet 12-08 00:00: 00 Yes 200mg Take 200 mg by mouth at bedtime. [facility] QUEtiapine 100 mg tablet 12-08 00:00: 00 Yes 100mg Take 100 mg by mouth at bedtime. [facility] SERTraline 50 mg tablet 12-08 00:00: 00 Yes 50mg Take 50 mg by mouth at bedtime. [facility] lamoTRIgine 200 mg tablet 12-08 00:00: 00 Yes 200mg Take 200 mg by mouth at bedtime. [facility] QUEtiapine 100 mg tablet 12-08 00:00: 00 Yes 100mg Take 100 mg by mouth at bedtime. [facility] SERTraline 50 mg tablet 12-08 00:00: 00 Yes 50mg Take 50 mg by mouth at bedtime. [facility] lamoTRIgine 200 mg tablet 12-08 00:00: 00 Yes 200mg Take 200 mg by mouth at bedtime. [facility] QUEtiapine 100 mg tablet 12-08 00:00: 00 Yes 100mg Take 100 mg by mouth at bedtime. [facility] SERTraline 50 mg tablet 12-08 00:00: 00 Yes 50mg Take 50 mg by mouth at bedtime. [facility] lamoTRIgine 200 mg tablet 12-08 00:00: 00 Yes 200mg Take 200 mg by mouth at bedtime. [facility] QUEtiapine 100 mg tablet 12-08 00:00: 00 Yes 100mg Take 100 mg by mouth at bedtime. [facility] SERTraline 50 mg tablet 12-08 00:00: 00 Yes 50mg Take 50 mg by mouth at bedtime. [facility] lamoTRIgine 200 mg tablet 12-08 00:00: 00 Yes 200mg Take 200 mg by mouth at bedtime. [facility] QUEtiapine 100 mg tablet 12-08 00:00: 00 Yes 100mg Take 100 mg by mouth at bedtime. [facility] SERTraline 50 mg tablet 12-08 00:00: 00 Yes 50mg Take 50 mg by mouth at bedtime. [facility] lamoTRIgine 200 mg tablet 12-08 00:00: 00 Yes 200mg Take 200 mg by mouth at bedtime. [facility] QUEtiapine 100 mg tablet 12-08 00:00: 00 Yes 100mg Take 100 mg by mouth at bedtime. [facility] SERTraline 50 mg tablet 12-08 00:00: 00 Yes 50mg Take 50 mg by mouth at bedtime. [facility] lamoTRIgine 200 mg tablet 0 12-08 00:00: 00 Yes 200mg Take 200 mg by mouth at bedtime. [facility] QUEtiapine 100 mg tablet 12-08 00:00: 00 Yes 100mg Take 100 mg by mouth at bedtime. [facility] SERTraline 50 mg tablet 12-08 00:00: 00 Yes 50mg Take 50 mg by mouth at bedtime. [facility] lamoTRIgine 200 mg tablet 0 12-08 00:00: 00 Yes 200mg Take 200 mg by mouth at bedtime. [facility] QUEtiapine 100 mg tablet 0 12-08 00:00: 00 Yes 100mg Take 100 mg by mouth at bedtime. [facility] SERTraline 50 mg tablet 12-08 00:00: 00 Yes 50mg Take 50 mg by mouth at bedtime. [facility] lamoTRIgine 200 mg tablet 0 12-08 00:00: 00 Yes 200mg Take 200 mg by mouth at bedtime. [facility] QUEtiapine 100 mg tablet 12-08 00:00: 00 Yes 100mg Take 100 mg by mouth at bedtime. [facility] SERTraline 50 mg tablet 12-08 00:00: 00 Yes 50mg Take 50 mg by mouth at bedtime. [facility] lamoTRIgine 200 mg tablet 0 12-08 00:00: 00 Yes 200mg Take 200 mg by mouth at bedtime. [facility] QUEtiapine 100 mg tablet 0 12-08 00:00: 00 Yes 100mg Take 100 mg by mouth at bedtime. [facility] SERTraline 50 mg tablet 12-08 00:00: 00 Yes 50mg Take 50 mg by mouth at bedtime. [facility] lamoTRIgine 200 mg tablet 12-08 00:00: 00 Yes 200mg Take 200 mg by mouth at bedtime. [facility] QUEtiapine 100 mg tablet 12-08 00:00: 00 Yes 100mg Take 100 mg by mouth at bedtime. [facility] SERTraline 50 mg tablet 0 12-08 00:00: 00 Yes 50mg Take 50 mg by mouth at bedtime. [facility] lamoTRIgine 200 mg tablet 12-08 00:00: 00 Yes 200mg Take 200 mg by mouth at bedtime. [facility] QUEtiapine 100 mg tablet 0 12-08 00:00: 00 Yes 100mg Take 100 mg by mouth at bedtime. [facility] SERTraline 50 mg tablet 12-08 00:00: 00 Yes 50mg Take 50 mg by mouth at bedtime. [facility] lamoTRIgine 200 mg tablet 12-08 00:00: 00 Yes 200mg Take 200 mg by mouth at bedtime. [facility] QUEtiapine 100 mg tablet 12-08 00:00: 00 Yes 100mg Take 100 mg by mouth at bedtime. [facility] SERTraline 50 mg tablet 12-08 00:00: 00 Yes 50mg Take 50 mg by mouth at bedtime. [facility] lamoTRIgine 200 mg tablet 12-08 00:00: 00 Yes 200mg Take 200 mg by mouth at bedtime. [facility] QUEtiapine 100 mg tablet 12-08 00:00: 00 Yes 100mg Take 100 mg by mouth at bedtime. [facility] SERTraline 50 mg tablet 12-08 00:00: 00 Yes 50mg Take 50 mg by mouth at bedtime. [facility] lamoTRIgine 200 mg tablet 12-08 00:00: 00 Yes 200mg Take 200 mg by mouth at bedtime. [facility] QUEtiapine 100 mg tablet 12-08 00:00: 00 Yes 100mg Take 100 mg by mouth at bedtime. [facility] SERTraline 50 mg tablet 12-08 00:00: 00 Yes 50mg Take 50 mg by mouth at bedtime. [facility] lamoTRIgine 200 mg tablet 12-08 00:00: 00 Yes 200mg Take 200 mg by mouth at bedtime. [facility] QUEtiapine 100 mg tablet 12-08 00:00: 00 Yes 100mg Take 100 mg by mouth at bedtime. [facility] SERTraline 50 mg tablet 12-08 00:00: 00 Yes 50mg Take 50 mg by mouth at bedtime. [facility] lamoTRIgine 200 mg tablet 12-08 00:00: 00 Yes 200mg Take 200 mg by mouth at bedtime. [facility] QUEtiapine 100 mg tablet 12-08 00:00: 00 Yes 100mg Take 100 mg by mouth at bedtime. [facility] SERTraline 50 mg tablet 12-08 00:00: 00 Yes 50mg Take 50 mg by mouth at bedtime. [facility] lamoTRIgine 200 mg tablet 12-08 00:00: 00 Yes 200mg Take 200 mg by mouth at bedtime. [facility] QUEtiapine 100 mg tablet 12-08 00:00: 00 Yes 100mg Take 100 mg by mouth at bedtime. [facility] SERTraline 50 mg tablet 12-08 00:00: 00 Yes 50mg Take 50 mg by mouth at bedtime. [facility] lamoTRIgine 200 mg tablet 12-08 00:00: 00 Yes 200mg Take 200 mg by mouth at bedtime. [facility] QUEtiapine 100 mg tablet 12-08 00:00: 00 Yes 100mg Take 100 mg by mouth at bedtime. [facility] SERTraline 50 mg tablet 12-08 00:00: 00 Yes 50mg Take 50 mg by mouth at bedtime. [facility] lamoTRIgine 200 mg tablet 12-08 00:00: 00 Yes 200mg Take 200 mg by mouth at bedtime. [facility] QUEtiapine 100 mg tablet 12-08 00:00: 00 Yes 100mg Take 100 mg by mouth at bedtime. [facility] SERTraline 50 mg tablet 12-08 00:00: 00 Yes 50mg Take 50 mg by mouth at bedtime. [facility] lamoTRIgine 200 mg tablet 12-08 00:00: 00 Yes 200mg Take 200 mg by mouth at bedtime. [facility] QUEtiapine 100 mg tablet 0 12-08 00:00: 00 Yes 100mg Take 100 mg by mouth at bedtime. [facility] SERTraline 50 mg tablet 12-08 00:00: 00 Yes 50mg Take 50 mg by mouth at bedtime. [facility] lamoTRIgine 200 mg tablet 12-08 00:00: 00 Yes 200mg Take 200 mg by mouth at bedtime. [facility] QUEtiapine 100 mg tablet 0 12-08 00:00: 00 Yes 100mg Take 100 mg by mouth at bedtime. [facility] SERTraline 50 mg tablet 12-08 00:00: 00 Yes 50mg Take 50 mg by mouth at bedtime. [facility] lamoTRIgine 200 mg tablet 12-08 00:00: 00 Yes 200mg Take 200 mg by mouth at bedtime. [facility] QUEtiapine 100 mg tablet 12-08 00:00: 00 Yes 100mg Take 100 mg by mouth at bedtime. [facility] SERTraline 50 mg tablet 12-08 00:00: 00 Yes 50mg Take 50 mg by mouth at bedtime. [facility] lamoTRIgine 200 mg tablet 12-08 00:00: 00 Yes 200mg Take 200 mg by mouth at bedtime. [facility] QUEtiapine 100 mg tablet 12-08 00:00: 00 Yes 100mg Take 100 mg by mouth at bedtime. [facility] SERTraline 50 mg tablet 12-08 00:00: 00 Yes 50mg Take 50 mg by mouth at bedtime. [facility] lamoTRIgine 200 mg tablet 12-08 00:00: 00 Yes 200mg Take 200 mg by mouth at bedtime. [facility] QUEtiapine 100 mg tablet 12-08 00:00: 00 Yes 100mg Take 100 mg by mouth at bedtime. [facility] SERTraline 50 mg tablet 0 12-08 00:00: 00 Yes 50mg Take 50 mg by mouth at bedtime. [facility] lamoTRIgine 200 mg tablet 0 12-08 00:00: 00 Yes 200mg Take 200 mg by mouth at bedtime. [facility] QUEtiapine 100 mg tablet 12-08 00:00: 00 Yes 100mg Take 100 mg by mouth at bedtime. [facility] SERTraline 50 mg tablet 12-08 00:00: 00 Yes 50mg Take 50 mg by mouth at bedtime. [facility] lamoTRIgine 200 mg tablet 12-08 00:00: 00 Yes 200mg Take 200 mg by mouth at bedtime. [facility] QUEtiapine 100 mg tablet 12-08 00:00: 00 Yes 100mg Take 100 mg by mouth at bedtime. [facility] SERTraline 50 mg tablet 12-08 00:00: 00 Yes 50mg Take 50 mg by mouth at bedtime. [facility] lamoTRIgine 200 mg tablet 12-08 00:00: 00 Yes 200mg Take 200 mg by mouth at bedtime. [facility] QUEtiapine 100 mg tablet 12-08 00:00: 00 Yes 100mg Take 100 mg by mouth at bedtime. [facility] SERTraline 50 mg tablet 12-08 00:00: 00 Yes 50mg Take 50 mg by mouth at bedtime. [facility] lamoTRIgine 200 mg tablet 12-08 00:00: 00 Yes 200mg Take 200 mg by mouth at bedtime. [facility] QUEtiapine 100 mg tablet 12-08 00:00: 00 Yes 100mg Take 100 mg by mouth at bedtime. [facility] SERTraline 50 mg tablet 12-08 00:00: 00 Yes 50mg Take 50 mg by mouth at bedtime. [facility] lamoTRIgine 200 mg tablet 12-08 00:00: 00 Yes 200mg Take 200 mg by mouth at bedtime. [facility] QUEtiapine 100 mg tablet 0 12-08 00:00: 00 Yes 100mg Take 100 mg by mouth at bedtime. [facility] SERTraline 50 mg tablet 0 12-08 00:00: 00 Yes 50mg Take 50 mg by mouth at bedtime. [facility] lamoTRIgine 200 mg tablet 0 12-08 00:00: 00 Yes 200mg Take 200 mg by mouth at bedtime. [facility] QUEtiapine 100 mg tablet 0 12-08 00:00: 00 Yes 100mg Take 100 mg by mouth at bedtime. [facility] SERTraline 50 mg tablet 12-08 00:00: 00 Yes 50mg Take 50 mg by mouth at bedtime. [facility] lamoTRIgine 200 mg tablet 12-08 00:00: 00 Yes 200mg Take 200 mg by mouth at bedtime. [facility] QUEtiapine 100 mg tablet 0 12-08 00:00: 00 Yes 100mg Take 100 mg by mouth at bedtime. [facility] SERTraline 50 mg tablet 0 12-08 00:00: 00 Yes 50mg Take 50 mg by mouth at bedtime. [facility] lamoTRIgine 200 mg tablet 12-08 00:00: 00 Yes 200mg Take 200 mg by mouth at bedtime. [facility] QUEtiapine 100 mg tablet 0 12-08 00:00: 00 Yes 100mg Take 100 mg by mouth at bedtime. [facility] SERTraline 50 mg tablet 0 12-08 00:00: 00 Yes 50mg Take 50 mg by mouth at bedtime. [facility] lamoTRIgine 200 mg tablet 0 12-08 00:00: 00 Yes 200mg Take 200 mg by mouth at bedtime. [facility] QUEtiapine 100 mg tablet 0 12-08 00:00: 00 Yes 100mg Take 100 mg by mouth at bedtime. [facility] SERTraline 50 mg tablet 0 12-08 00:00: 00 Yes 50mg Take 50 mg by mouth at bedtime. [facility] lamoTRIgine 200 mg tablet 12-08 00:00: 00 Yes 200mg Take 200 mg by mouth at bedtime. [facility] QUEtiapine 100 mg tablet 12-08 00:00: 00 Yes 100mg Take 100 mg by mouth at bedtime. [facility] SERTraline 50 mg tablet 12-08 00:00: 00 Yes 50mg Take 50 mg by mouth at bedtime. [facility] lamoTRIgine 200 mg tablet 12-08 00:00: 00 Yes 200mg Take 200 mg by mouth at bedtime. [facility] QUEtiapine 100 mg tablet 12-08 00:00: 00 Yes 100mg Take 100 mg by mouth at bedtime. [facility] SERTraline 50 mg tablet 12-08 00:00: 00 Yes 50mg Take 50 mg by mouth at bedtime. [facility] lamoTRIgine 200 mg tablet 12-08 00:00: 00 Yes 200mg Take 200 mg by mouth at bedtime. [facility] QUEtiapine 100 mg tablet 12-08 00:00: 00 Yes 100mg Take 100 mg by mouth at bedtime. [facility] SERTraline 50 mg tablet 12-08 00:00: 00 Yes 50mg Take 50 mg by mouth at bedtime. [facility] lamoTRIgine 200 mg tablet 12-08 00:00: 00 Yes 200mg Take 200 mg by mouth at bedtime. [facility] QUEtiapine 100 mg tablet 12-08 00:00: 00 Yes 100mg Take 100 mg by mouth at bedtime. [facility] SERTraline 50 mg tablet 12-08 00:00: 00 Yes 50mg Take 50 mg by mouth at bedtime. [facility] lamoTRIgine 200 mg tablet 12-08 00:00: 00 Yes 200mg Take 200 mg by mouth at bedtime. [facility] QUEtiapine 100 mg tablet 12-08 00:00: 00 Yes 100mg Take 100 mg by mouth at bedtime. [facility] SERTraline 50 mg tablet 12-08 00:00: 00 Yes 50mg Take 50 mg by mouth at bedtime. [facility] lamoTRIgine 200 mg tablet 12-08 00:00: 00 Yes 200mg Take 200 mg by mouth at bedtime. [facility] QUEtiapine 100 mg tablet 12-08 00:00: 00 Yes 100mg Take 100 mg by mouth at bedtime. [facility] SERTraline 50 mg tablet 12-08 00:00: 00 Yes 50mg Take 50 mg by mouth at bedtime. [facility] lamoTRIgine 200 mg tablet 12-08 00:00: 00 Yes 200mg Take 200 mg by mouth at bedtime. [facility] QUEtiapine 100 mg tablet 12-08 00:00: 00 Yes 100mg Take 100 mg by mouth at bedtime. [facility] SERTraline 50 mg tablet 12-08 00:00: 00 Yes 50mg Take 50 mg by mouth at bedtime. [facility] lamoTRIgine 200 mg tablet 12-08 00:00: 00 Yes 200mg Take 200 mg by mouth at bedtime. [facility] QUEtiapine 100 mg tablet 12-08 00:00: 00 Yes 100mg Take 100 mg by mouth at bedtime. [facility] SERTraline 50 mg tablet 12-08 00:00: 00 Yes 50mg Take 50 mg by mouth at bedtime. [facility] lamoTRIgine 200 mg tablet 0 12-08 00:00: 00 Yes 200mg Take 200 mg by mouth at bedtime. [facility] QUEtiapine 100 mg tablet 12-08 00:00: 00 Yes 100mg Take 100 mg by mouth at bedtime. [facility] lamoTRIgine 200 mg tablet 0 12-08 00:00: 00 Yes 200mg Take 200 mg by mouth at bedtime. [facility] QUEtiapine 100 mg tablet 0 12-08 00:00: 00 Yes 100mg Take 100 mg by mouth at bedtime. [facility] lamoTRIgine 200 mg tablet 0 12-08 00:00: 00 Yes 200mg Take 200 mg by mouth at bedtime. [facility] QUEtiapine 100 mg tablet 0 12-08 00:00: 00 Yes 100mg Take 100 mg by mouth at bedtime. [facility] lamoTRIgine 200 mg tablet 0 12-08 00:00: 00 Yes 200mg Take 200 mg by mouth at bedtime. [facility] QUEtiapine 100 mg tablet 0 12-08 00:00: 00 Yes 100mg Take 100 mg by mouth at bedtime. [facility] lamoTRIgine 200 mg tablet 0 12-08 00:00: 00 Yes 200mg Take 200 mg by mouth at bedtime. [facility] QUEtiapine 100 mg tablet 0 12-08 00:00: 00 Yes 100mg Take 100 mg by mouth at bedtime. [facility] lamoTRIgine 200 mg tablet 0 12-08 00:00: 00 Yes 200mg Take 200 mg by mouth at bedtime. [facility] QUEtiapine 100 mg tablet 0 12-08 00:00: 00 Yes 100mg Take 100 mg by mouth at bedtime. [facility] lamoTRIgine 200 mg tablet 0 12-08 00:00: 00 Yes 200mg Take 200 mg by mouth at bedtime. [facility] QUEtiapine 100 mg tablet 0 12-08 00:00: 00 Yes 100mg Take 100 mg by mouth at bedtime. [facility] lamoTRIgine 200 mg tablet 0 12-08 00:00: 00 Yes 200mg Take 200 mg by mouth at bedtime. [facility] QUEtiapine 100 mg tablet 2020-0 12-08 00:00: 00 Yes 100mg Take 100 mg by mouth at bedtime. [facility] lamoTRIgine 200 mg tablet 0 5-25 00:00: 00 Yes 200mg Take 200 mg by mouth at bedtime. [facility] QUEtiapine 100 mg tablet 0 12-08 00:00: 00 Yes 100mg Take 100 mg by mouth at bedtime. [facility] lamoTRIgine 200 mg tablet 0 12-08 00:00: 00 Yes 200mg Take 200 mg by mouth at bedtime. [facility] QUEtiapine 100 mg tablet 0 12-08 00:00: 00 Yes 100mg Take 100 mg by mouth at bedtime. [facility] lamoTRIgine 200 mg tablet 0 12-08 00:00: 00 Yes 200mg Take 200 mg by mouth at bedtime. [facility] QUEtiapine 100 mg tablet 0 12-08 00:00: 00 Yes 100mg Take 100 mg by mouth at bedtime. [facility] lamoTRIgine 200 mg tablet 0 12-08 00:00: 00 Yes 200mg Take 200 mg by mouth at bedtime. [facility] QUEtiapine 100 mg tablet 0 12-08 00:00: 00 Yes 100mg Take 100 mg by mouth at bedtime. [facility] lamoTRIgine 200 mg tablet 0 12-08 00:00: 00 Yes 200mg Take 200 mg by mouth at bedtime. [facility] QUEtiapine 100 mg tablet 0 12-08 00:00: 00 Yes 100mg Take 100 mg by mouth at bedtime. [facility] lamoTRIgine 200 mg tablet 0 12-08 00:00: 00 Yes 200mg Take 200 mg by mouth at bedtime. [facility] QUEtiapine 100 mg tablet 0 12-08 00:00: 00 Yes 100mg Take 100 mg by mouth at bedtime. [facility] lamoTRIgine 200 mg tablet 0 12-08 00:00: 00 Yes 200mg Take 200 mg by mouth at bedtime. [facility] QUEtiapine 100 mg tablet 0 12-08 00:00: 00 Yes 100mg Take 100 mg by mouth at bedtime. [facility] lamoTRIgine 200 mg tablet 0 12-08 00:00: 00 Yes 200mg Take 200 mg by mouth at bedtime. [facility] QUEtiapine 100 mg tablet 0 12-08 00:00: 00 Yes 100mg Take 100 mg by mouth at bedtime. [facility] lamoTRIgine 200 mg tablet 0 12-08 00:00: 00 Yes 200mg Take 200 mg by mouth at bedtime. [facility] QUEtiapine 100 mg tablet 0 12-08 00:00: 00 Yes 100mg Take 100 mg by mouth at bedtime. [facility] lamoTRIgine 200 mg tablet 0 12-08 00:00: 00 Yes 200mg Take 200 mg by mouth at bedtime. [facility] QUEtiapine 100 mg tablet 0 12-08 00:00: 00 Yes 100mg Take 100 mg by mouth at bedtime. [facility] lamoTRIgine 200 mg tablet 0 12-08 00:00: 00 Yes 200mg Take 200 mg by mouth at bedtime. [facility] QUEtiapine 100 mg tablet 0 12-08 00:00: 00 Yes 100mg Take 100 mg by mouth at bedtime. [facility] lamoTRIgine 200 mg tablet 0 12-08 00:00: 00 Yes 200mg Take 200 mg by mouth at bedtime. [facility] QUEtiapine 100 mg tablet 0 12-08 00:00: 00 Yes 100mg Take 100 mg by mouth at bedtime. [facility] lamoTRIgine 200 mg tablet 0 12-08 00:00: 00 Yes 200mg Take 200 mg by mouth at bedtime. [facility] QUEtiapine 100 mg tablet 0 12-08 00:00: 00 Yes 100mg Take 100 mg by mouth at bedtime. [facility] lamoTRIgine 200 mg tablet 0 12-08 00:00: 00 Yes 200mg Take 200 mg by mouth at bedtime. [facility] QUEtiapine 100 mg tablet 0 12-08 00:00: 00 Yes 100mg Take 100 mg by mouth at bedtime. [facility] lamoTRIgine 200 mg tablet 0 12-08 00:00: 00 Yes 200mg Take 200 mg by mouth at bedtime. [facility] QUEtiapine 100 mg tablet 0 12-08 00:00: 00 Yes 100mg Take 100 mg by mouth at bedtime. [facility] lamoTRIgine 200 mg tablet 0 12-08 00:00: 00 Yes 200mg Take 200 mg by mouth at bedtime. [facility] QUEtiapine 100 mg tablet 0 12-08 00:00: 00 Yes 100mg Take 100 mg by mouth at bedtime. [facility] lamoTRIgine 200 mg tablet 0 12-08 00:00: 00 Yes 200mg Take 200 mg by mouth at bedtime. [facility] QUEtiapine 100 mg tablet 0 12-08 00:00: 00 Yes 100mg Take 100 mg by mouth at bedtime. [facility] lamoTRIgine 200 mg tablet 0 12-08 00:00: 00 Yes 200mg Take 200 mg by mouth at bedtime. [facility] QUEtiapine 100 mg tablet 0 12-08 00:00: 00 Yes 100mg Take 100 mg by mouth at bedtime. [facility] lamoTRIgine 200 mg tablet 0 12-08 00:00: 00 Yes 200mg Take 200 mg by mouth at bedtime. [facility] QUEtiapine 100 mg tablet 0 12-08 00:00: 00 Yes 100mg Take 100 mg by mouth at bedtime. [facility] lamoTRIgine 200 mg tablet 0 12-08 00:00: 00 Yes 200mg Take 200 mg by mouth at bedtime. [facility] QUEtiapine 100 mg tablet 2020-0 12-08 00:00: 00 Yes 100mg Take 100 mg by mouth at bedtime. [facility] lamoTRIgine 200 mg tablet 0 5-25 00:00: 00 Yes 200mg Take 200 mg by mouth at bedtime. [facility] QUEtiapine 100 mg tablet 0 12-08 00:00: 00 Yes 100mg Take 100 mg by mouth at bedtime. [facility] lamoTRIgine 200 mg tablet 0 12-08 00:00: 00 Yes 200mg Take 200 mg by mouth at bedtime. [facility] QUEtiapine 100 mg tablet 0 12-08 00:00: 00 Yes 100mg Take 100 mg by mouth at bedtime. [facility] lamoTRIgine 200 mg tablet 0 12-08 00:00: 00 Yes 200mg Take 200 mg by mouth at bedtime. [facility] QUEtiapine 100 mg tablet 0 12-08 00:00: 00 Yes 100mg Take 100 mg by mouth at bedtime. [facility] lamoTRIgine 200 mg tablet 0 12-08 00:00: 00 Yes 200mg Take 200 mg by mouth at bedtime. [facility] QUEtiapine 100 mg tablet 0 12-08 00:00: 00 Yes 100mg Take 100 mg by mouth at bedtime. [facility] lamoTRIgine 200 mg tablet 0 12-08 00:00: 00 Yes 200mg Take 200 mg by mouth at bedtime. [facility] QUEtiapine 100 mg tablet 0 12-08 00:00: 00 Yes 100mg Take 100 mg by mouth at bedtime. [facility] lamoTRIgine 200 mg tablet 0 12-08 00:00: 00 Yes 200mg Take 200 mg by mouth at bedtime. [facility] QUEtiapine 100 mg tablet 0 12-08 00:00: 00 Yes 100mg Take 100 mg by mouth at bedtime. [facility] lamoTRIgine 200 mg tablet 0 12-08 00:00: 00 Yes 200mg Take 200 mg by mouth at bedtime. [facility] QUEtiapine 100 mg tablet 0 12-08 00:00: 00 Yes 100mg Take 100 mg by mouth at bedtime. [facility] lamoTRIgine 200 mg tablet 0 12-08 00:00: 00 Yes 200mg Take 200 mg by mouth at bedtime. [facility] QUEtiapine 100 mg tablet 0 12-08 00:00: 00 Yes 100mg Take 100 mg by mouth at bedtime. [facility] lamoTRIgine 200 mg tablet 0 12-08 00:00: 00 Yes 200mg Take 200 mg by mouth at bedtime. [facility] QUEtiapine 100 mg tablet 0 12-08 00:00: 00 Yes 100mg Take 100 mg by mouth at bedtime. [facility] lamoTRIgine 200 mg tablet 0 12-08 00:00: 00 Yes 200mg Take 200 mg by mouth at bedtime. [facility] QUEtiapine 100 mg tablet 0 12-08 00:00: 00 Yes 100mg Take 100 mg by mouth at bedtime. [facility] lamoTRIgine 200 mg tablet 0 12-08 00:00: 00 Yes 200mg Take 200 mg by mouth at bedtime. [facility] QUEtiapine 100 mg tablet 0 12-08 00:00: 00 Yes 100mg Take 100 mg by mouth at bedtime. [facility] lamoTRIgine 200 mg tablet 0 12-08 00:00: 00 Yes 200mg Take 200 mg by mouth at bedtime. [facility] QUEtiapine 100 mg tablet 0 12-08 00:00: 00 Yes 100mg Take 100 mg by mouth at bedtime. [facility] lamoTRIgine 200 mg tablet 0 12-08 00:00: 00 Yes 200mg Take 200 mg by mouth at bedtime. [facility] QUEtiapine 100 mg tablet 0 12-08 00:00: 00 Yes 100mg Take 100 mg by mouth at bedtime. [facility] lamoTRIgine 200 mg tablet 0 12-08 00:00: 00 Yes 200mg Take 200 mg by mouth at bedtime. [facility] QUEtiapine 100 mg tablet 0 12-08 00:00: 00 Yes 100mg Take 100 mg by mouth at bedtime. [facility] lamoTRIgine 200 mg tablet 12-08 00:00: 00 Yes 200mg Take 200 mg by mouth at bedtime. [facility] QUEtiapine 100 mg tablet 12-08 00:00: 00 Yes 100mg Take 100 mg by mouth at bedtime. [facility] lamoTRIgine 200 mg tablet 0 12-08 00:00: 00 Yes 200mg Take 200 mg by mouth at bedtime. [facility] QUEtiapine 100 mg tablet 12-08 00:00: 00 Yes 100mg Take 100 mg by mouth at bedtime. [facility] lamoTRIgine 200 mg tablet 12-08 00:00: 00 Yes 200mg Take 200 mg by mouth at bedtime. [facility] QUEtiapine 100 mg tablet 12-08 00:00: 00 Yes 100mg Take 100 mg by mouth at bedtime. [facility] lamoTRIgine 200 mg tablet 12-08 00:00: 00 Yes 200mg Take 200 mg by mouth at bedtime. [facility] QUEtiapine 100 mg tablet 12-08 00:00: 00 Yes 100mg Take 100 mg by mouth at bedtime. [facility] SERTraline 50 mg tablet 12-08 00:00: 00 01-09 00:00 :00 No 50mg Take 50 mg by mouth at bedtime. [facility] SERTraline 50 mg tablet 0 12-08 00:00: 00 01-09 00:00 :00 No 50mg Take 50 mg by mouth at bedtime. [facility] SERTraline 50 mg tablet 12-08 00:00: 00 01-09 00:00 :00 No 50mg Take 50 mg by mouth at bedtime. [facility] SERTraline 50 mg tablet 12-08 00:00: 00 01-09 00:00 :00 No 50mg Take 50 mg by mouth at bedtime. [facility] SERTraline 50 mg tablet 0 5-25 00:00: 00 01-09 00:00 :00 No 50mg Take 50 mg by mouth at bedtime. [facility] SERTraline 50 mg tablet 0 5-25 00:00: 00 01-09 00:00 :00 No 50mg Take 50 mg by mouth at bedtime. [facility] SERTraline 50 mg tablet 0 525 00:00: 00 01-09 00:00 :00 No 50mg Take 50 mg by mouth at bedtime. [facility] SERTraline 50 mg tablet 5 00:00: 00 01-09 00:00 :00 No 50mg Take 50 mg by mouth at bedtime. [facility] SERTraline 50 mg tablet 0 5 00:00: 00 01-09 00:00 :00 No 50mg Take 50 mg by mouth at bedtime. [facility] SERTraline 50 mg tablet 0 5 00:00: 00 01-09 00:00 :00 No 50mg Take 50 mg by mouth at bedtime. [facility] SERTraline 50 mg tablet 0 5 00:00: 00 01-09 00:00 :00 No 50mg Take 50 mg by mouth at bedtime. [facility] oxyCODONE-a cetaminophe n 5-325 mg per tablet 0 5-19 00:00: 00 01-05 00:00 :00 No TAKE 1 TABLET BY MOUTH EVERY 4 HOURS NEEDED FOR PAIN [facility] oxyCODONE-a cetaminophe n 5-325 mg per tablet 0 5-19 00:00: 00 01-05 00:00 :00 No TAKE 1 TABLET BY MOUTH EVERY 4 HOURS NEEDED FOR PAIN [facility] oxyCODONE-a cetaminophe n 5-325 mg per tablet 12-02 00:00: 00 01-05 00:00 :00 No TAKE 1 TABLET BY MOUTH EVERY 4 HOURS NEEDED FOR PAIN [facility] oxyCODONE-a cetaminophe n 5-325 mg per tablet 5 00:00: 00 01-05 00:00 :00 No TAKE 1 TABLET BY MOUTH EVERY 4 HOURS NEEDED FOR PAIN [facility] oxyCODONE-a cetaminophe n 5-325 mg per tablet 12-02 00:00: 00 01-05 00:00 :00 No TAKE 1 TABLET BY MOUTH EVERY 4 HOURS NEEDED FOR PAIN [facility] oxyCODONE-a cetaminophe n 5-325 mg per tablet 12-02 00:00: 00 01-05 00:00 :00 No TAKE 1 TABLET BY MOUTH EVERY 4 HOURS NEEDED FOR PAIN [facility] oxyCODONE-a cetaminophe n 5-325 mg per tablet 12-02 00:00: 00 01-05 00:00 :00 No TAKE 1 TABLET BY MOUTH EVERY 4 HOURS NEEDED FOR PAIN [facility] oxyCODONE-a cetaminophe n 5-325 mg per tablet 12-02 00:00: 00 01-05 00:00 :00 No TAKE 1 TABLET BY MOUTH EVERY 4 HOURS NEEDED FOR PAIN [facility] Immunizations Ordered Immunization Name Filled Immunization Name Date Status Comments Source Influenza Virus Vaccine Quad IM, Preserv and ABX Free 6 MO-64 YRS 2022-04-08 00:00:00 Completed [facility] SARS-COV-2 COVID-19 VACCINE 18 YRS+, BIVALENT 0.5ML, IM, (MODERNA BOOSTER) 2022-04-08 00:00:00 Completed [facility] Influenza Virus Vaccine Quad IM, Preserv and ABX Free 6 MO-64 YRS 2022-04-08 00:00:00 Completed [facility] SARS-COV-2 COVID-19 VACCINE 18 YRS+, BIVALENT 0.5ML, IM, (MODERNA BOOSTER) 2022-04-08 00:00:00 Completed [facility] Influenza Virus Vaccine Quad IM, Preserv and ABX Free 6 MO-64 YRS 2022-04-08 00:00:00 Completed [facility] SARS-COV-2 COVID-19 VACCINE 18 YRS+, BIVALENT 0.5ML, IM, (MODERNA BOOSTER) 2022-04-08 00:00:00 Completed [facility] Influenza Virus Vaccine Quad IM, Preserv and ABX Free 6 MO-64 YRS 2022-04-08 00:00:00 Completed [facility] SARS-COV-2 COVID-19 VACCINE 18 YRS+, BIVALENT 0.5ML, IM, (MODERNA BOOSTER) 2022-04-08 00:00:00 Completed [facility] Influenza Virus Vaccine Quad IM, Preserv and ABX Free 6 MO-64 YRS 2022-04-08 00:00:00 Completed [facility] SARS-COV-2 COVID-19 VACCINE 18 YRS+, BIVALENT 0.5ML, IM, (MODERNA BOOSTER) 2022-04-08 00:00:00 Completed [facility] Influenza Virus Vaccine Quad IM, Preserv and ABX Free 6 MO-64 YRS 2022-04-08 00:00:00 Completed [facility] SARS-COV-2 COVID-19 VACCINE 18 YRS+, BIVALENT 0.5ML, IM, (MODERNA BOOSTER) 2022-04-08 00:00:00 Completed [facility] Influenza Virus Vaccine Quad IM, Preserv and ABX Free 6 MO-64 YRS 2022-04-08 00:00:00 Completed [facility] SARS-COV-2 COVID-19 VACCINE 18 YRS+, BIVALENT 0.5ML, IM, (MODERNA BOOSTER) 2022-04-08 00:00:00 Completed [facility] Influenza Virus Vaccine Quad IM, Preserv and ABX Free 6 MO-64 YRS 2022-04-08 00:00:00 Completed [facility] SARS-COV-2 COVID-19 VACCINE 12 YRS+, BIVALENT 0.5ML, IM, (MODERNA BOOSTER) 2022-04-08 00:00:00 Completed [facility] Influenza Virus Vaccine Quad IM, Preserv and ABX Free 6 MO-64 YRS 2022-04-08 00:00:00 Completed [facility] SARS-COV-2 COVID-19 VACCINE 12 YRS+, BIVALENT 0.5ML, IM, (MODERNA BOOSTER) 2022-04-08 00:00:00 Completed [facility] Influenza Virus Vaccine Quad IM, Preserv and ABX Free 6 MO-64 YRS 2022-04-08 00:00:00 Completed [facility] SARS-COV-2 COVID-19 VACCINE 12 YRS+, BIVALENT 0.5ML, IM, (MODERNA BOOSTER) 2022-04-08 00:00:00 Completed [facility] Influenza Virus Vaccine Quad IM, Preserv and ABX Free 6 MO-64 YRS 2022-04-08 00:00:00 Completed [facility] SARS-COV-2 COVID-19 VACCINE 12 YRS+, BIVALENT 0.5ML, IM, (MODERNA BOOSTER) 2022-04-08 00:00:00 Completed [facility] Influenza Virus Vaccine Quad IM, Preserv and ABX Free 6 MO-64 YRS 2022-04-08 00:00:00 Completed [facility] SARS-COV-2 COVID-19 VACCINE 12 YRS+, BIVALENT 0.5ML, IM, (MODERNA BOOSTER) 2022-04-08 00:00:00 Completed [facility] Influenza Virus Vaccine Quad IM, Preserv and ABX Free 6 MO-64 YRS 2022-04-08 00:00:00 Completed [facility] SARS-COV-2 COVID-19 VACCINE 12 YRS+, BIVALENT 0.5ML, IM, (MODERNA BOOSTER) 2022-04-08 00:00:00 Completed [facility] Influenza Virus Vaccine Quad IM, Preserv and ABX Free 6 MO-64 YRS 2022-04-08 00:00:00 Completed [facility] SARS-COV-2 COVID-19 VACCINE 12 YRS+, BIVALENT 0.5ML, IM, (MODERNA BOOSTER) 2022-04-08 00:00:00 Completed [facility] Influenza Virus Vaccine Quad IM, Preserv and ABX Free 6 MO-64 YRS 2022-04-08 00:00:00 Completed [facility] SARS-COV-2 COVID-19 VACCINE 12 YRS+, BIVALENT 0.5ML, IM, (MODERNA BOOSTER) 2022-04-08 00:00:00 Completed [facility] Influenza Virus Vaccine Quad IM, Preserv and ABX Free 6 MO-64 YRS 2022-04-08 00:00:00 Completed [facility] SARS-COV-2 COVID-19 VACCINE 12 YRS+, BIVALENT 0.5ML, IM, (MODERNA BOOSTER) 2022-04-08 00:00:00 Completed [facility] Influenza Virus Vaccine Quad IM, Preserv and ABX Free 6 MO-64 YRS 2022-04-08 00:00:00 Completed [facility] SARS-COV-2 COVID-19 VACCINE 12 YRS+, BIVALENT 0.5ML, IM, (MODERNA BOOSTER) 2022-04-08 00:00:00 Completed [facility] Influenza Virus Vaccine Quad IM, Preserv and ABX Free 6 MO-64 YRS 2022-04-08 00:00:00 Completed [facility] SARS-COV-2 COVID-19 VACCINE 12 YRS+, BIVALENT 0.5ML, IM, (MODERNA BOOSTER) 2022-04-08 00:00:00 Completed [facility] Influenza Virus Vaccine Quad IM, Preserv and ABX Free 6 MO-64 YRS 2022-04-08 00:00:00 Completed [facility] SARS-COV-2 COVID-19 VACCINE 12 YRS+, BIVALENT 0.5ML, IM, (MODERNA BOOSTER) 2022-04-08 00:00:00 Completed [facility] Influenza Virus Vaccine Quad IM, Preserv and ABX Free 6 MO-64 YRS 2022-04-08 00:00:00 Completed [facility] SARS-COV-2 COVID-19 VACCINE 12 YRS+, BIVALENT 0.5ML, IM, (MODERNA BOOSTER) 2022-04-08 00:00:00 Completed [facility] Influenza Virus Vaccine Quad IM, Preserv and ABX Free 6 MO-64 YRS 2022-04-08 00:00:00 Completed [facility] SARS-COV-2 COVID-19 VACCINE 12 YRS+, BIVALENT 0.5ML, IM, (MODERNA BOOSTER) 2022-04-08 00:00:00 Completed [facility] Influenza Virus Vaccine Quad IM, Preserv and ABX Free 6 MO-64 YRS 2022-04-08 00:00:00 Completed [facility] SARS-COV-2 COVID-19 VACCINE 12 YRS+, BIVALENT 0.5ML, IM, (MODERNA BOOSTER) 2022-04-08 00:00:00 Completed [facility] Influenza Virus Vaccine Quad IM, Preserv and ABX Free 6 MO-64 YRS 2022-04-08 00:00:00 Completed [facility] SARS-COV-2 COVID-19 VACCINE 12 YRS+, BIVALENT 0.5ML, IM, (MODERNA BOOSTER) 2022-04-08 00:00:00 Completed [facility] Influenza Virus Vaccine Quad IM, Preserv and ABX Free 6 MO-64 YRS 2022-04-08 00:00:00 Completed [facility] SARS-COV-2 COVID-19 VACCINE 12 YRS+, BIVALENT 0.5ML, IM, (MODERNA BOOSTER) 2022-04-08 00:00:00 Completed [facility] Influenza Virus Vaccine Quad IM, Preserv and ABX Free 6 MO-64 YRS 2022-04-08 00:00:00 Completed [facility] SARS-COV-2 COVID-19 VACCINE 12 YRS+, BIVALENT 0.5ML, IM, (MODERNA BOOSTER) 2022-04-08 00:00:00 Completed [facility] Influenza Virus Vaccine Quad IM, Preserv and ABX Free 6 MO-64 YRS 2022-04-08 00:00:00 Completed [facility] SARS-COV-2 COVID-19 VACCINE 12 YRS+, BIVALENT 0.5ML, IM, (MODERNA BOOSTER) 2022-04-08 00:00:00 Completed [facility] Influenza Virus Vaccine Quad IM, Preserv and ABX Free 6 MO-64 YRS 2022-04-08 00:00:00 Completed [facility] SARS-COV-2 COVID-19 VACCINE 12 YRS+, BIVALENT 0.5ML, IM, (MODERNA BOOSTER) 2022-04-08 00:00:00 Completed [facility] Influenza Virus Vaccine Quad IM, Preserv and ABX Free 6 MO-64 YRS 2022-04-08 00:00:00 Completed [facility] SARS-COV-2 COVID-19 VACCINE 12 YRS+, BIVALENT 0.5ML, IM, (MODERNA BOOSTER) 2022-04-08 00:00:00 Completed [facility] Influenza Virus Vaccine Quad IM, Preserv and ABX Free 6 MO-64 YRS 2022-04-08 00:00:00 Completed [facility] SARS-COV-2 COVID-19 VACCINE 12 YRS+, BIVALENT 0.5ML, IM, (MODERNA BOOSTER) 2022-04-08 00:00:00 Completed [facility] Influenza Virus Vaccine Quad IM, Preserv and ABX Free 6 MO-64 YRS 2022-04-08 00:00:00 Completed [facility] SARS-COV-2 COVID-19 VACCINE 12 YRS+, BIVALENT 0.5ML, IM, (MODERNA BOOSTER) 2022-04-08 00:00:00 Completed [facility] Influenza Virus Vaccine Quad IM, Preserv and ABX Free 6 MO-64 YRS 2022-04-08 00:00:00 Completed [facility] SARS-COV-2 COVID-19 VACCINE 12 YRS+, BIVALENT 0.5ML, IM, (MODERNA BOOSTER) 2022-04-08 00:00:00 Completed [facility] Influenza Virus Vaccine Quad IM, Preserv and ABX Free 6 MO-64 YRS 2022-04-08 00:00:00 Completed [facility] SARS-COV-2 COVID-19 VACCINE 12 YRS+, BIVALENT 0.5ML, IM, (MODERNA BOOSTER) 2022-04-08 00:00:00 Completed [facility] Influenza Virus Vaccine Quad IM, Preserv and ABX Free 6 MO-64 YRS 2022-04-08 00:00:00 Completed [facility] SARS-COV-2 COVID-19 VACCINE 12 YRS+, BIVALENT 0.5ML, IM, (MODERNA BOOSTER) 2022-04-08 00:00:00 Completed [facility] Influenza Virus Vaccine Quad IM, Preserv and ABX Free 6 MO-64 YRS 2022-04-08 00:00:00 Completed [facility] SARS-COV-2 COVID-19 VACCINE 12 YRS+, BIVALENT 0.5ML, IM, (MODERNA BOOSTER) 2022-04-08 00:00:00 Completed [facility] Influenza Virus Vaccine Quad IM, Preserv and ABX Free 6 MO-64 YRS 2022-04-08 00:00:00 Completed [facility] SARS-COV-2 COVID-19 VACCINE 12 YRS+, BIVALENT 0.5ML, IM, (MODERNA BOOSTER) 2022-04-08 00:00:00 Completed [facility] Influenza Virus Vaccine Quad IM, Preserv and ABX Free 6 MO-64 YRS 2022-04-08 00:00:00 Completed [facility] SARS-COV-2 COVID-19 VACCINE 12 YRS+, BIVALENT 0.5ML, IM, (MODERNA BOOSTER) 2022-04-08 00:00:00 Completed [facility] Influenza Virus Vaccine Quad IM, Preserv and ABX Free 6 MO-64 YRS 2022-04-08 00:00:00 Completed [facility] SARS-COV-2 COVID-19 VACCINE 12 YRS+, BIVALENT 0.5ML, IM, (MODERNA BOOSTER) 2022-04-08 00:00:00 Completed [facility] Influenza Virus Vaccine Quad IM, Preserv and ABX Free 6 MO-64 YRS 2022-04-08 00:00:00 Completed [facility] SARS-COV-2 COVID-19 VACCINE 12 YRS+, BIVALENT 0.5ML, IM, (MODERNA BOOSTER) 2022-04-08 00:00:00 Completed [facility] Influenza Virus Vaccine Quad IM, Preserv and ABX Free 6 MO-64 YRS 2022-04-08 00:00:00 Completed [facility] SARS-COV-2 COVID-19 VACCINE 12 YRS+, BIVALENT 0.5ML, IM, (MODERNA BOOSTER) 2022-04-08 00:00:00 Completed [facility] Influenza Virus Vaccine Quad IM, Preserv and ABX Free 6 MO-64 YRS 2022-04-08 00:00:00 Completed [facility] SARS-COV-2 COVID-19 VACCINE 12 YRS+, BIVALENT 0.5ML, IM, (MODERNA BOOSTER) 2022-04-08 00:00:00 Completed [facility] Influenza Virus Vaccine Quad IM, Preserv and ABX Free 6 MO-64 YRS 2022-04-08 00:00:00 Completed [facility] SARS-COV-2 COVID-19 VACCINE 12 YRS+, BIVALENT 0.5ML, IM, (MODERNA BOOSTER) 2022-04-08 00:00:00 Completed [facility] Influenza Virus Vaccine Quad IM, Preserv and ABX Free 6 MO-64 YRS 2022-04-08 00:00:00 Completed [facility] SARS-COV-2 COVID-19 VACCINE 12 YRS+, BIVALENT 0.5ML, IM, (MODERNA BOOSTER) 2022-04-08 00:00:00 Completed [facility] Influenza Virus Vaccine Quad IM, Preserv and ABX Free 6 MO-64 YRS 2022-04-08 00:00:00 Completed [facility] SARS-COV-2 COVID-19 VACCINE 12 YRS+, BIVALENT 0.5ML, IM, (MODERNA BOOSTER) 2022-04-08 00:00:00 Completed [facility] Influenza Virus Vaccine Quad IM, Preserv and ABX Free 6 MO-64 YRS 2022-04-08 00:00:00 Completed [facility] SARS-COV-2 COVID-19 VACCINE 12 YRS+, BIVALENT 0.5ML, IM, (MODERNA BOOSTER) 2022-04-08 00:00:00 Completed [facility] Influenza Virus Vaccine Quad IM, Preserv and ABX Free 6 MO-64 YRS 2022-04-08 00:00:00 Completed [facility] SARS-COV-2 COVID-19 VACCINE 12 YRS+, BIVALENT 0.5ML, IM, (MODERNA) 2022-04-08 00:00:00 Completed [facility] Influenza Virus Vaccine Quad IM, Preserv and ABX Free 6 MO-64 YRS 2022-04-08 00:00:00 Completed [facility] SARS-COV-2 COVID-19 VACCINE 12 YRS+, BIVALENT 0.5ML, IM, (MODERNA) 2022-04-08 00:00:00 Completed [facility] Influenza Virus Vaccine Quad IM, Preserv and ABX Free 6 MO-64 YRS 2022-04-08 00:00:00 Completed [facility] SARS-COV-2 COVID-19 VACCINE 12 YRS+, BIVALENT 0.5ML, IM, (MODERNA-BLUE TOP) 2022-04-08 00:00:00 Completed [facility] Influenza Virus Vaccine Quad IM, Preserv and ABX Free 6 MO-64 YRS 2022-04-08 00:00:00 Completed [facility] SARS-COV-2 COVID-19 VACCINE 12 YRS+, BIVALENT 0.5ML, IM, (MODERNA-BLUE TOP) 2022-04-08 00:00:00 Completed [facility] Influenza Virus Vaccine Quad IM, Preserv and ABX Free 6 MO-64 YRS 2022-04-08 00:00:00 Completed [facility] SARS-COV-2 COVID-19 VACCINE 12 YRS+, BIVALENT 0.5ML, IM, (MODERNA-BLUE TOP) 2022-04-08 00:00:00 Completed [facility] Influenza Virus Vaccine Quad IM, Preserv and ABX Free 6 MO-64 YRS 2022-04-08 00:00:00 Completed [facility] SARS-COV-2 COVID-19 VACCINE 12 YRS+, BIVALENT 0.5ML, IM, (MODERNA-BLUE TOP) 2022-04-08 00:00:00 Completed [facility] Influenza Virus Vaccine Quad IM, Preserv and ABX Free 6 MO-64 YRS 2022-04-08 00:00:00 Completed [facility] SARS-COV-2 COVID-19 VACCINE 12 YRS+, BIVALENT 0.5ML, IM, (MODERNA-BLUE TOP) 2022-04-08 00:00:00 Completed [facility] Influenza Virus Vaccine Quad IM, Preserv and ABX Free 6 MO-64 YRS 2022-04-08 00:00:00 Completed [facility] SARS-COV-2 COVID-19 VACCINE 12 YRS+, BIVALENT 0.5ML, IM, (MODERNA-BLUE TOP) 2022-04-08 00:00:00 Completed [facility] Influenza Virus Vaccine Quad IM, Preserv and ABX Free 6 MO-64 YRS 2022-04-08 00:00:00 Completed [facility] SARS-COV-2 COVID-19 VACCINE 12 YRS+, BIVALENT 0.5ML, IM, (MODERNA-BLUE TOP) 2022-04-08 00:00:00 Completed [facility] Influenza Virus Vaccine Quad IM, Preserv and ABX Free 6 MO-64 YRS 2022-04-08 00:00:00 Completed [facility] SARS-COV-2 COVID-19 VACCINE 12 YRS+, BIVALENT 0.5ML, IM, (MODERNA-BLUE TOP) 2022-04-08 00:00:00 Completed [facility] Influenza Virus Vaccine Quad IM, Preserv and ABX Free 6 MO-64 YRS 2022-04-08 00:00:00 Completed [facility] SARS-COV-2 COVID-19 VACCINE 12 YRS+, BIVALENT 0.5ML, IM, (MODERNA-BLUE TOP) 2022-04-08 00:00:00 Completed [facility] Influenza Virus Vaccine Quad IM, Preserv and ABX Free 6 MO-64 YRS 2022-04-08 00:00:00 Completed [facility] SARS-COV-2 COVID-19 VACCINE 12 YRS+, BIVALENT 0.5ML, IM, (MODERNA-BLUE TOP) 2022-04-08 00:00:00 Completed [facility] Influenza Virus Vaccine Quad IM, Preserv and ABX Free 6 MO-64 YRS 2022-04-08 00:00:00 Completed [facility] SARS-COV-2 COVID-19 VACCINE 12 YRS+, BIVALENT 0.5ML, IM, (MODERNA-BLUE TOP) 2022-04-08 00:00:00 Completed [facility] Influenza Virus Vaccine Quad IM, Preserv and ABX Free 6 MO-64 YRS 2022-04-08 00:00:00 Completed [facility] SARS-COV-2 COVID-19 VACCINE 12 YRS+, BIVALENT 0.5ML, IM, (MODERNA-BLUE TOP) 2022-04-08 00:00:00 Completed [facility] Influenza Virus Vaccine Quad IM, Preserv and ABX Free 6 MO-64 YRS 2022-04-08 00:00:00 Completed [facility] SARS-COV-2 COVID-19 VACCINE 12 YRS+, BIVALENT 0.5ML, IM, (MODERNA-BLUE TOP) 2022-04-08 00:00:00 Completed [facility] Influenza Virus Vaccine Quad IM, Preserv and ABX Free 6 MO-64 YRS 2022-04-08 00:00:00 Completed [facility] SARS-COV-2 COVID-19 VACCINE 12 YRS+, BIVALENT 0.5ML, IM, (MODERNA-BLUE TOP) 2022-04-08 00:00:00 Completed [facility] Influenza Virus Vaccine Quad IM, Preserv and ABX Free 6 MO-64 YRS 2022-04-08 00:00:00 Completed [facility] SARS-COV-2 COVID-19 VACCINE 12 YRS+, BIVALENT 0.5ML, IM, (MODERNA-BLUE TOP) 2022-04-08 00:00:00 Completed [facility] Influenza Virus Vaccine Quad IM, Preserv and ABX Free 6 MO-64 YRS 2022-04-08 00:00:00 Completed [facility] SARS-COV-2 COVID-19 VACCINE 12 YRS+, BIVALENT 0.5ML, IM, (MODERNA-BLUE TOP) 2022-04-08 00:00:00 Completed [facility] Influenza Virus Vaccine Quad IM, Preserv and ABX Free 6 MO-64 YRS 2022-04-08 00:00:00 Completed [facility] SARS-COV-2 COVID-19 VACCINE 12 YRS+, BIVALENT 0.5ML, IM, (MODERNA-BLUE TOP) 2022-04-08 00:00:00 Completed [facility] Influenza Virus Vaccine Quad IM, Preserv and ABX Free 6 MO-64 YRS (FLUCELVAX) 2022-04-08 00:00:00 Completed [facility] SARS-COV-2 COVID-19 VACCINE 12 YRS+, BIVALENT 0.5ML, IM, (MODERNA-BLUE TOP) 2022-04-08 00:00:00 Completed [facility] Influenza Virus Vaccine Quad IM, Preserv and ABX Free 6 MO-64 YRS (FLUCELVAX) 2022-04-08 00:00:00 Completed [facility] SARS-COV-2 COVID-19 VACCINE 12 YRS+, BIVALENT 0.5ML, IM, (MODERNA-BLUE TOP) 2022-04-08 00:00:00 Completed [facility] Influenza Virus Vaccine Quad IM, Preserv and ABX Free 6 MO-64 YRS (FLUCELVAX) 2022-04-08 00:00:00 Completed [facility] SARS-COV-2 COVID-19 VACCINE 12 YRS+, BIVALENT 0.5ML, IM, (MODERNA-BLUE TOP) 2022-04-08 00:00:00 Completed [facility] Influenza Virus Vaccine Quad IM, Preserv and ABX Free 6 MO-64 YRS (FLUCELVAX) 2022-04-08 00:00:00 Completed [facility] SARS-COV-2 COVID-19 VACCINE 12 YRS+, BIVALENT 0.5ML, IM, (MODERNA-BLUE TOP) 2022-04-08 00:00:00 Completed [facility] Influenza Virus Vaccine Quad IM, Preserv and ABX Free 6 MO-64 YRS (FLUCELVAX) 2022-04-08 00:00:00 Completed [facility] SARS-COV-2 COVID-19 VACCINE 12 YRS+, BIVALENT 0.5ML, IM, (MODERNA-BLUE TOP) 2022-04-08 00:00:00 Completed [facility] Influenza Virus Vaccine Quad IM, Preserv and ABX Free 6 MO-64 YRS (FLUCELVAX) 2022-04-08 00:00:00 Completed [facility] SARS-COV-2 COVID-19 VACCINE 12 YRS+, BIVALENT 0.5ML, IM, (MODERNA-BLUE TOP) 2022-04-08 00:00:00 Completed [facility] Influenza Virus Vaccine Quad IM, Preserv and ABX Free 6 MO-64 YRS (FLUCELVAX) 2022-04-08 00:00:00 Completed [facility] SARS-COV-2 COVID-19 VACCINE 12 YRS+, BIVALENT 0.5ML, IM, (MODERNA-BLUE TOP) 2022-04-08 00:00:00 Completed [facility] Influenza Virus Vaccine Quad IM, Preserv and ABX Free 6 MO-64 YRS (FLUCELVAX) 2022-04-08 00:00:00 Completed [facility] SARS-COV-2 COVID-19 VACCINE 12 YRS+, BIVALENT 0.5ML, IM, (MODERNA-BLUE TOP) 2022-04-08 00:00:00 Completed [facility] Pneumococcal 20 Conjugate, PCV20 (Prevnar 20) 2021-11-24 00:00:00 Completed [facility] Pneumococcal 20 Conjugate, PCV20 (Prevnar 20) 2021-11-24 00:00:00 Completed [facility] Pneumococcal 20 Conjugate, PCV20 (Prevnar 20) 2021-11-24 00:00:00 Completed [facility] Pneumococcal 20 Conjugate, PCV20 (Prevnar 20) 2021-11-24 00:00:00 Completed [facility] Pneumococcal 20 Conjugate, PCV20 (Prevnar 20) 2021-11-24 00:00:00 Completed [facility] Pneumococcal 20 Conjugate, PCV20 (Prevnar 20) 2021-11-24 00:00:00 Completed [facility] Pneumococcal 20 Conjugate, PCV20 (Prevnar 20) 2021-11-24 00:00:00 Completed [facility] Pneumococcal 20 Conjugate, PCV20 (Prevnar 20) 2021-11-24 00:00:00 Completed [facility] Pneumococcal 20 Conjugate, PCV20 (Prevnar 20) 2021-11-24 00:00:00 Completed [facility] Pneumococcal 20 Conjugate, PCV20 (Prevnar 20) 2021-11-24 00:00:00 Completed [facility] Pneumococcal 20 Conjugate, PCV20 (Prevnar 20) 2021-11-24 00:00:00 Completed [facility] Pneumococcal 20 Conjugate, PCV20 (Prevnar 20) 2021-11-24 00:00:00 Completed [facility] Pneumococcal 20 Conjugate, PCV20 (Prevnar 20) 2021-11-24 00:00:00 Completed [facility] Pneumococcal 20 Conjugate, PCV20 (Prevnar 20) 2021-11-24 00:00:00 Completed [facility] Pneumococcal 20 Conjugate, PCV20 (Prevnar 20) 2021-11-24 00:00:00 Completed [facility] Pneumococcal 20 Conjugate, PCV20 (Prevnar 20) 2021-11-24 00:00:00 Completed [facility] Pneumococcal 20 Conjugate, PCV20 (Prevnar 20) 2021-11-24 00:00:00 Completed [facility] Pneumococcal 20 Conjugate, PCV20 (Prevnar 20) 2021-11-24 00:00:00 Completed [facility] Pneumococcal 20 Conjugate, PCV20 (Prevnar 20) 2021-11-24 00:00:00 Completed [facility] Pneumococcal 20 Conjugate, PCV20 (Prevnar 20) 2021-11-24 00:00:00 Completed [facility] Pneumococcal 20 Conjugate, PCV20 (Prevnar 20) 2021-11-24 00:00:00 Completed [facility] Pneumococcal 20 Conjugate, PCV20 (Prevnar 20) 2021-11-24 00:00:00 Completed [facility] Pneumococcal 20 Conjugate, PCV20 (Prevnar 20) 2021-11-24 00:00:00 Completed [facility] Pneumococcal 20 Conjugate, PCV20 (Prevnar 20) 2021-11-24 00:00:00 Completed [facility] Pneumococcal 20 Conjugate, PCV20 (Prevnar 20) 2021-11-24 00:00:00 Completed [facility] Pneumococcal 20 Conjugate, PCV20 (Prevnar 20) 2021-11-24 00:00:00 Completed [facility] Pneumococcal 20 Conjugate, PCV20 (Prevnar 20) 2021-11-24 00:00:00 Completed [facility] Pneumococcal 20 Conjugate, PCV20 (Prevnar 20) 2021-11-24 00:00:00 Completed [facility] Pneumococcal 20 Conjugate, PCV20 (Prevnar 20) 2021-11-24 00:00:00 Completed [facility] Pneumococcal 20 Conjugate, PCV20 (Prevnar 20) 2021-11-24 00:00:00 Completed [facility] Pneumococcal 20 Conjugate, PCV20 (Prevnar 20) 2021-11-24 00:00:00 Completed [facility] Pneumococcal 20 Conjugate, PCV20 (Prevnar 20) 2021-11-24 00:00:00 Completed [facility] Pneumococcal 20 Conjugate, PCV20 (Prevnar 20) 2021-11-24 00:00:00 Completed [facility] Pneumococcal 20 Conjugate, PCV20 (Prevnar 20) 2021-11-24 00:00:00 Completed [facility] Pneumococcal 20 Conjugate, PCV20 (Prevnar 20) 2021-11-24 00:00:00 Completed [facility] Pneumococcal 20 Conjugate, PCV20 (Prevnar 20) 2021-11-24 00:00:00 Completed [facility] Pneumococcal 20 Conjugate, PCV20 (Prevnar 20) 2021-11-24 00:00:00 Completed [facility] Pneumococcal 20 Conjugate, PCV20 (Prevnar 20) 2021-11-24 00:00:00 Completed [facility] Pneumococcal 20 Conjugate, PCV20 (Prevnar 20) 2021-11-24 00:00:00 Completed [facility] Pneumococcal 20 Conjugate, PCV20 (Prevnar 20) 2021-11-24 00:00:00 Completed [facility] Pneumococcal 20 Conjugate, PCV20 (Prevnar 20) 2021-11-24 00:00:00 Completed [facility] Pneumococcal 20 Conjugate, PCV20 (Prevnar 20) 2021-11-24 00:00:00 Completed [facility] Pneumococcal 20 Conjugate, PCV20 (Prevnar 20) 2021-11-24 00:00:00 Completed [facility] Pneumococcal 20 Conjugate, PCV20 (Prevnar 20) 2021-11-24 00:00:00 Completed [facility] Pneumococcal 20 Conjugate, PCV20 (Prevnar 20) 2021-11-24 00:00:00 Completed [facility] Pneumococcal 20 Conjugate, PCV20 (Prevnar 20) 2021-11-24 00:00:00 Completed [facility] Pneumococcal 20 Conjugate, PCV20 (Prevnar 20) 2021-11-24 00:00:00 Completed [facility] Pneumococcal 20 Conjugate, PCV20 (Prevnar 20) 2021-11-24 00:00:00 Completed [facility] Pneumococcal 20 Conjugate, PCV20 (Prevnar 20) 2021-11-24 00:00:00 Completed [facility] Pneumococcal 20 Conjugate, PCV20 (Prevnar 20) 2021-11-24 00:00:00 Completed [facility] Pneumococcal 20 Conjugate, PCV20 (Prevnar 20) 2021-11-24 00:00:00 Completed [facility] Pneumococcal 20 Conjugate, PCV20 (Prevnar 20) 2021-11-24 00:00:00 Completed [facility] Pneumococcal 20 Conjugate, PCV20 (Prevnar 20) 2021-11-24 00:00:00 Completed [facility] Pneumococcal 20 Conjugate, PCV20 (Prevnar 20) 2021-11-24 00:00:00 Completed [facility] Pneumococcal 20 Conjugate, PCV20 (Prevnar 20) 2021-11-24 00:00:00 Completed [facility] Pneumococcal 20 Conjugate, PCV20 (Prevnar 20) 2021-11-24 00:00:00 Completed [facility] Pneumococcal 20 Conjugate, PCV20 (Prevnar 20) 2021-11-24 00:00:00 Completed [facility] Pneumococcal 20 Conjugate, PCV20 (Prevnar 20) 2021-11-24 00:00:00 Completed [facility] Pneumococcal 20 Conjugate, PCV20 (Prevnar 20) 2021-11-24 00:00:00 Completed [facility] Pneumococcal 20 Conjugate, PCV20 (Prevnar 20) 2021-11-24 00:00:00 Completed [facility] Pneumococcal 20 Conjugate, PCV20 (Prevnar 20) 2021-11-24 00:00:00 Completed [facility] Pneumococcal 20 Conjugate, PCV20 (Prevnar 20) 2021-11-24 00:00:00 Completed [facility] Pneumococcal 20 Conjugate, PCV20 (Prevnar 20) 2021-11-24 00:00:00 Completed [facility] Pneumococcal 20 Conjugate, PCV20 (Prevnar 20) 2021-11-24 00:00:00 Completed [facility] Pneumococcal 20 Conjugate, PCV20 (Prevnar 20) 2021-11-24 00:00:00 Completed [facility] Pneumococcal 20 Conjugate, PCV20 (Prevnar 20) 2021-11-24 00:00:00 Completed [facility] Pneumococcal 20 Conjugate, PCV20 (Prevnar 20) 2021-11-24 00:00:00 Completed [facility] Pneumococcal 20 Conjugate, PCV20 (Prevnar 20) 2021-11-24 00:00:00 Completed [facility] Pneumococcal 20 Conjugate, PCV20 (Prevnar 20) 2021-11-24 00:00:00 Completed [facility] Pneumococcal 20 Conjugate, PCV20 (Prevnar 20) 2021-11-24 00:00:00 Completed [facility] Pneumococcal 20 Conjugate, PCV20 (Prevnar 20) 2021-11-24 00:00:00 Completed [facility] Pneumococcal 20 Conjugate, PCV20 (Prevnar 20) 2021-11-24 00:00:00 Completed [facility] Pneumococcal 20 Conjugate, PCV20 (Prevnar 20) 2021-11-24 00:00:00 Completed [facility] Pneumococcal 20 Conjugate, PCV20 (Prevnar 20) 2021-11-24 00:00:00 Completed [facility] Pneumococcal 20 Conjugate, PCV20 (Prevnar 20) 2021-11-24 00:00:00 Completed [facility] SARS-COV-2 COVID-19 MODERNA 12+ YRS VACCINE 2021-05-11 00:00:00 Completed [facility] SARS-COV-2 COVID-19 MODERNA 12+ YRS VACCINE 2021-05-11 00:00:00 Completed [facility] SARS-COV-2 COVID-19 MODERNA 12+ YRS VACCINE 2021-05-11 00:00:00 Completed [facility] SARS-COV-2 COVID-19 MODERNA 12+ YRS VACCINE 2021-05-11 00:00:00 Completed [facility] SARS-COV-2 COVID-19 MODERNA 12+ YRS VACCINE 2021-05-11 00:00:00 Completed [facility] SARS-COV-2 COVID-19 MODERNA 12+ YRS VACCINE 2021-05-11 00:00:00 Completed [facility] SARS-COV-2 COVID-19 MODERNA 12+ YRS VACCINE 2021-05-11 00:00:00 Completed [facility] SARS-COV-2 COVID-19 MODERNA 12+ YRS VACCINE 2021-05-11 00:00:00 Completed [facility] SARS-COV-2 COVID-19 MODERNA 12+ YRS VACCINE 2021-05-11 00:00:00 Completed [facility] SARS-COV-2 COVID-19 MODERNA 12+ YRS VACCINE 2021-05-11 00:00:00 Completed [facility] SARS-COV-2 COVID-19 MODERNA 12+ YRS VACCINE 2021-05-11 00:00:00 Completed [facility] SARS-COV-2 COVID-19 MODERNA 12+ YRS VACCINE 2021-05-11 00:00:00 Completed [facility] SARS-COV-2 COVID-19 MODERNA 12+ YRS VACCINE 2021-05-11 00:00:00 Completed [facility] SARS-COV-2 COVID-19 MODERNA 12+ YRS VACCINE 2021-05-11 00:00:00 Completed [facility] SARS-COV-2 COVID-19 MODERNA 12+ YRS VACCINE 2021-05-11 00:00:00 Completed [facility] SARS-COV-2 COVID-19 MODERNA 12+ YRS VACCINE 2021-05-11 00:00:00 Completed [facility] SARS-COV-2 COVID-19 MODERNA 12+ YRS VACCINE 2021-05-11 00:00:00 Completed [facility] SARS-COV-2 COVID-19 MODERNA 12+ YRS VACCINE 2021-05-11 00:00:00 Completed [facility] SARS-COV-2 COVID-19 MODERNA 12+ YRS VACCINE 2021-05-11 00:00:00 Completed [facility] SARS-COV-2 COVID-19 MODERNA 12+ YRS VACCINE 2021-05-11 00:00:00 Completed [facility] SARS-COV-2 COVID-19 MODERNA 12+ YRS VACCINE 2021-05-11 00:00:00 Completed [facility] SARS-COV-2 COVID-19 MODERNA 12+ YRS VACCINE 2021-05-11 00:00:00 Completed [facility] SARS-COV-2 COVID-19 MODERNA 12+ YRS VACCINE 2021-05-11 00:00:00 Completed [facility] SARS-COV-2 COVID-19 MODERNA 12+ YRS VACCINE 2021-05-11 00:00:00 Completed [facility] SARS-COV-2 COVID-19 MODERNA 12+ YRS VACCINE 2021-05-11 00:00:00 Completed [facility] SARS-COV-2 COVID-19 MODERNA 12+ YRS VACCINE 2021-05-11 00:00:00 Completed [facility] SARS-COV-2 COVID-19 MODERNA 12+ YRS VACCINE 2021-05-11 00:00:00 Completed [facility] SARS-COV-2 COVID-19 MODERNA 12+ YRS VACCINE 2021-05-11 00:00:00 Completed [facility] SARS-COV-2 COVID-19 MODERNA 12+ YRS VACCINE 2021-05-11 00:00:00 Completed [facility] SARS-COV-2 COVID-19 MODERNA 12+ YRS VACCINE 2021-05-11 00:00:00 Completed [facility] SARS-COV-2 COVID-19 MODERNA 12+ YRS VACCINE 2021-05-11 00:00:00 Completed [facility] SARS-COV-2 COVID-19 MODERNA 12+ YRS VACCINE 2021-05-11 00:00:00 Completed [facility] SARS-COV-2 COVID-19 MODERNA 12+ YRS VACCINE 2021-05-11 00:00:00 Completed [facility] SARS-COV-2 COVID-19 MODERNA 12+ YRS VACCINE 2021-05-11 00:00:00 Completed [facility] SARS-COV-2 COVID-19 MODERNA 12+ YRS VACCINE 2021-05-11 00:00:00 Completed [facility] SARS-COV-2 COVID-19 MODERNA 12+ YRS VACCINE 2021-05-11 00:00:00 Completed [facility] SARS-COV-2 COVID-19 MODERNA 12+ YRS VACCINE 2021-05-11 00:00:00 Completed [facility] SARS-COV-2 COVID-19 MODERNA 12+ YRS VACCINE 2021-05-11 00:00:00 Completed [facility] SARS-COV-2 COVID-19 MODERNA 12+ YRS VACCINE 2021-05-11 00:00:00 Completed [facility] SARS-COV-2 COVID-19 MODERNA 12+ YRS VACCINE 2021-05-11 00:00:00 Completed [facility] SARS-COV-2 COVID-19 MODERNA 12+ YRS VACCINE 2021-05-11 00:00:00 Completed [facility] SARS-COV-2 COVID-19 MODERNA 12+ YRS VACCINE 2021-05-11 00:00:00 Completed [facility] SARS-COV-2 COVID-19 MODERNA 12+ YRS VACCINE 2021-05-11 00:00:00 Completed [facility] SARS-COV-2 COVID-19 MODERNA 12+ YRS VACCINE 2021-05-11 00:00:00 Completed [facility] SARS-COV-2 COVID-19 MODERNA 12+ YRS VACCINE 2021-05-11 00:00:00 Completed [facility] SARS-COV-2 COVID-19 MODERNA 12+ YRS VACCINE 2021-05-11 00:00:00 Completed [facility] SARS-COV-2 COVID-19 MODERNA 12+ YRS VACCINE 2021-05-11 00:00:00 Completed [facility] SARS-COV-2 COVID-19 MODERNA 12+ YRS VACCINE 2021-05-11 00:00:00 Completed [facility] SARS-COV-2 COVID-19 MODERNA 12+ YRS VACCINE 2021-05-11 00:00:00 Completed [facility] SARS-COV-2 COVID-19 MODERNA 12+ YRS VACCINE 2021-05-11 00:00:00 Completed [facility] SARS-COV-2 COVID-19 MODERNA 12+ YRS VACCINE 2021-05-11 00:00:00 Completed [facility] SARS-COV-2 COVID-19 MODERNA 12+ YRS VACCINE 2021-05-11 00:00:00 Completed [facility] SARS-COV-2 COVID-19 MODERNA 12+ YRS VACCINE 2021-05-11 00:00:00 Completed [facility] SARS-COV-2 COVID-19 MODERNA 12+ YRS VACCINE 2021-05-11 00:00:00 Completed [facility] SARS-COV-2 COVID-19 MODERNA 12+ YRS VACCINE 2021-05-11 00:00:00 Completed [facility] SARS-COV-2 COVID-19 MODERNA 12+ YRS VACCINE 2021-05-11 00:00:00 Completed [facility] SARS-COV-2 COVID-19 MODERNA 12+ YRS VACCINE 2021-05-11 00:00:00 Completed [facility] SARS-COV-2 COVID-19 MODERNA 12+ YRS VACCINE 2021-05-11 00:00:00 Completed [facility] SARS-COV-2 COVID-19 MODERNA 12+ YRS VACCINE 2021-05-11 00:00:00 Completed [facility] SARS-COV-2 COVID-19 MODERNA 12+ YRS VACCINE 2021-05-11 00:00:00 Completed [facility] SARS-COV-2 COVID-19 MODERNA 12+ YRS VACCINE 2021-05-11 00:00:00 Completed [facility] SARS-COV-2 COVID-19 MODERNA 12+ YRS VACCINE 2021-05-11 00:00:00 Completed [facility] SARS-COV-2 COVID-19 MODERNA 12+ YRS VACCINE 2021-05-11 00:00:00 Completed [facility] SARS-COV-2 COVID-19 MODERNA 12+ YRS VACCINE 2021-05-11 00:00:00 Completed [facility] SARS-COV-2 COVID-19 MODERNA 12+ YRS VACCINE 2021-05-11 00:00:00 Completed [facility] SARS-COV-2 COVID-19 MODERNA 12+ YRS VACCINE 2021-05-11 00:00:00 Completed [facility] SARS-COV-2 COVID-19 MODERNA 12+ YRS VACCINE 2021-05-11 00:00:00 Completed [facility] SARS-COV-2 COVID-19 MODERNA 12+ YRS VACCINE 2021-05-11 00:00:00 Completed [facility] SARS-COV-2 COVID-19 MODERNA 12+ YRS VACCINE 2021-05-11 00:00:00 Completed [facility] SARS-COV-2 COVID-19 MODERNA 12+ YRS VACCINE 2021-05-11 00:00:00 Completed [facility] SARS-COV-2 COVID-19 MODERNA 12+ YRS VACCINE 2021-05-11 00:00:00 Completed [facility] SARS-COV-2 COVID-19 MODERNA 12+ YRS VACCINE 2021-05-11 00:00:00 Completed [facility] SARS-COV-2 COVID-19 MODERNA 12+ YRS VACCINE 2021-05-11 00:00:00 Completed [facility] SARS-COV-2 COVID-19 MODERNA 12+ YRS VACCINE 2021-05-11 00:00:00 Completed [facility] SARS-COV-2 COVID-19 MODERNA 12+ YRS VACCINE 2021-05-11 00:00:00 Completed [facility] Influenza Virus Vaccine - Whole 2021-04-29 00:00:00 Completed [facility] Influenza Virus Vaccine - Whole 2021-04-29 00:00:00 Completed [facility] Influenza Virus Vaccine - Whole 2021-04-29 00:00:00 Completed [facility] Influenza Virus Vaccine - Whole 2021-04-29 00:00:00 Completed [facility] Influenza Virus Vaccine - Whole 2021-04-29 00:00:00 Completed [facility] Influenza Virus Vaccine - Whole 2021-04-29 00:00:00 Completed [facility] Influenza Virus Vaccine - Whole 2021-04-29 00:00:00 Completed [facility] Influenza Virus Vaccine - Whole 2021-04-29 00:00:00 Completed [facility] Influenza Virus Vaccine - Whole 2021-04-29 00:00:00 Completed [facility] Influenza Virus Vaccine - Whole 2021-04-29 00:00:00 Completed [facility] Influenza Virus Vaccine - Whole 2021-04-29 00:00:00 Completed [facility] Influenza Virus Vaccine - Whole 2021-04-29 00:00:00 Completed [facility] Influenza Virus Vaccine - Whole 2021-04-29 00:00:00 Completed [facility] Influenza Virus Vaccine - Whole 2021-04-29 00:00:00 Completed [facility] Influenza Virus Vaccine - Whole 2021-04-29 00:00:00 Completed [facility] Influenza Virus Vaccine - Whole 2021-04-29 00:00:00 Completed [facility] Influenza Virus Vaccine - Whole 2021-04-29 00:00:00 Completed [facility] Influenza Virus Vaccine - Whole 2021-04-29 00:00:00 Completed [facility] Influenza Virus Vaccine - Whole 2021-04-29 00:00:00 Completed [facility] Influenza Virus Vaccine - Whole 2021-04-29 00:00:00 Completed [facility] Influenza Virus Vaccine - Whole 2021-04-29 00:00:00 Completed [facility] Influenza Virus Vaccine - Whole 2021-04-29 00:00:00 Completed [facility] Influenza Virus Vaccine - Whole 2021-04-29 00:00:00 Completed [facility] Influenza Virus Vaccine - Whole 2021-04-29 00:00:00 Completed [facility] Influenza Virus Vaccine 2021-04-22 00:00:00 Completed [facility] Influenza Virus Vaccine 2021-04-22 00:00:00 Completed [facility] Influenza Virus Vaccine 2021-04-22 00:00:00 Completed [facility] Influenza Virus Vaccine 2021-04-22 00:00:00 Completed [facility] Influenza Virus Vaccine 2021-04-22 00:00:00 Completed [facility] Influenza Virus Vaccine 2021-04-22 00:00:00 Completed [facility] Influenza Virus Vaccine 2021-04-22 00:00:00 Completed [facility] Influenza Virus Vaccine 2021-04-22 00:00:00 Completed [facility] Influenza Virus Vaccine 2021-04-22 00:00:00 Completed [facility] Influenza Virus Vaccine 2021-04-22 00:00:00 Completed [facility] Influenza Virus Vaccine 2021-04-22 00:00:00 Completed [facility] Influenza Virus Vaccine 2021-04-22 00:00:00 Completed [facility] Influenza Virus Vaccine 2021-04-22 00:00:00 Completed [facility] Influenza Virus Vaccine 2021-04-22 00:00:00 Completed [facility] Influenza Virus Vaccine 2021-04-22 00:00:00 Completed [facility] Influenza Virus Vaccine 2021-04-22 00:00:00 Completed [facility] Influenza Virus Vaccine 2021-04-22 00:00:00 Completed [facility] Influenza Virus Vaccine 2021-04-22 00:00:00 Completed [facility] Influenza Virus Vaccine 2021-04-22 00:00:00 Completed [facility] Influenza Virus Vaccine 2021-04-22 00:00:00 Completed [facility] Influenza Virus Vaccine 2021-04-22 00:00:00 Completed [facility] Influenza Virus Vaccine 2021-04-22 00:00:00 Completed [facility] Influenza Virus Vaccine 2021-04-22 00:00:00 Completed [facility] Influenza Virus Vaccine 2021-04-22 00:00:00 Completed [facility] Influenza Virus Vaccine 2021-04-22 00:00:00 Completed [facility] Influenza Virus Vaccine 2021-04-22 00:00:00 Completed [facility] Influenza Virus Vaccine 2021-04-22 00:00:00 Completed [facility] Influenza Virus Vaccine 2021-04-22 00:00:00 Completed [facility] Influenza Virus Vaccine 2021-04-22 00:00:00 Completed [facility] Influenza Virus Vaccine 2021-04-22 00:00:00 Completed [facility] Influenza Virus Vaccine 2021-04-22 00:00:00 Completed [facility] Influenza Virus Vaccine 2021-04-22 00:00:00 Completed [facility] Influenza Virus Vaccine 2021-04-22 00:00:00 Completed [facility] Influenza Virus Vaccine 2021-04-22 00:00:00 Completed [facility] Influenza Virus Vaccine 2021-04-22 00:00:00 Completed [facility] Influenza Virus Vaccine 2021-04-22 00:00:00 Completed [facility] Influenza Virus Vaccine 2021-04-22 00:00:00 Completed [facility] Influenza Virus Vaccine 2021-04-22 00:00:00 Completed [facility] Influenza Virus Vaccine 2021-04-22 00:00:00 Completed [facility] Influenza Virus Vaccine 2021-04-22 00:00:00 Completed [facility] Influenza Virus Vaccine 2021-04-22 00:00:00 Completed [facility] Influenza Virus Vaccine 2021-04-22 00:00:00 Completed [facility] Influenza Virus Vaccine 2021-04-22 00:00:00 Completed [facility] Influenza Virus Vaccine 2021-04-22 00:00:00 Completed [facility] Influenza Virus Vaccine 2021-04-22 00:00:00 Completed [facility] Influenza Virus Vaccine 2021-04-22 00:00:00 Completed [facility] Influenza Virus Vaccine 2021-04-22 00:00:00 Completed [facility] Influenza Virus Vaccine 2021-04-22 00:00:00 Completed [facility] Influenza Virus Vaccine 2021-04-22 00:00:00 Completed [facility] Influenza Virus Vaccine 2021-04-22 00:00:00 Completed [facility] Influenza Virus Vaccine 2021-04-22 00:00:00 Completed [facility] Influenza Virus Vaccine 2021-04-22 00:00:00 Completed [facility] Influenza Virus Vaccine 2021-04-22 00:00:00 Completed [facility] Influenza Virus Vaccine 2021-04-22 00:00:00 Completed [facility] Influenza Virus Vaccine 2021-04-22 00:00:00 Completed [facility] Influenza Virus Vaccine 2021-04-22 00:00:00 Completed [facility] Influenza Virus Vaccine 2021-04-22 00:00:00 Completed [facility] Influenza Virus Vaccine 2021-04-22 00:00:00 Completed [facility] Influenza Virus Vaccine 2021-04-22 00:00:00 Completed [facility] Influenza Virus Vaccine 2021-04-22 00:00:00 Completed [facility] Influenza Virus Vaccine 2021-04-22 00:00:00 Completed [facility] Influenza Virus Vaccine 2021-04-22 00:00:00 Completed [facility] Influenza Virus Vaccine 2021-04-22 00:00:00 Completed [facility] Influenza Virus Vaccine 2021-04-22 00:00:00 Completed [facility] Influenza Virus Vaccine 2021-04-22 00:00:00 Completed [facility] Influenza Virus Vaccine 2021-04-22 00:00:00 Completed [facility] Influenza Virus Vaccine 2021-04-22 00:00:00 Completed [facility] Influenza Virus Vaccine 2021-04-22 00:00:00 Completed [facility] Influenza Virus Vaccine 2021-04-22 00:00:00 Completed [facility] Influenza Virus Vaccine 2021-04-22 00:00:00 Completed [facility] Influenza Virus Vaccine 2021-04-22 00:00:00 Completed [facility] Influenza Virus Vaccine 2021-04-22 00:00:00 Completed [facility] Influenza Virus Vaccine 2021-04-22 00:00:00 Completed [facility] Influenza Virus Vaccine 2021-04-22 00:00:00 Completed [facility] Influenza Virus Vaccine 2021-04-22 00:00:00 Completed [facility] SARS-COV-2 COVID-19 MODERNA 12+ YRS VACCINE 2020-11-05 00:00:00 Completed [facility] SARS-COV-2 COVID-19 MODERNA 12+ YRS VACCINE 2020-11-05 00:00:00 Completed [facility] SARS-COV-2 COVID-19 MODERNA 12+ YRS VACCINE 2020-11-05 00:00:00 Completed [facility] SARS-COV-2 COVID-19 MODERNA 12+ YRS VACCINE 2020-11-05 00:00:00 Completed [facility] SARS-COV-2 COVID-19 MODERNA 12+ YRS VACCINE 2020-11-05 00:00:00 Completed [facility] SARS-COV-2 COVID-19 MODERNA 12+ YRS VACCINE 2020-11-05 00:00:00 Completed [facility] SARS-COV-2 COVID-19 MODERNA 12+ YRS VACCINE 2020-11-05 00:00:00 Completed [facility] SARS-COV-2 COVID-19 MODERNA 12+ YRS VACCINE 2020-11-05 00:00:00 Completed [facility] SARS-COV-2 COVID-19 MODERNA 12+ YRS VACCINE 2020-11-05 00:00:00 Completed [facility] SARS-COV-2 COVID-19 MODERNA 12+ YRS VACCINE 2020-11-05 00:00:00 Completed [facility] SARS-COV-2 COVID-19 MODERNA 12+ YRS VACCINE 2020-11-05 00:00:00 Completed [facility] SARS-COV-2 COVID-19 MODERNA 12+ YRS VACCINE 2020-11-05 00:00:00 Completed [facility] SARS-COV-2 COVID-19 MODERNA 12+ YRS VACCINE 2020-11-05 00:00:00 Completed [facility] SARS-COV-2 COVID-19 MODERNA 12+ YRS VACCINE 2020-11-05 00:00:00 Completed [facility] SARS-COV-2 COVID-19 MODERNA 12+ YRS VACCINE 2020-11-05 00:00:00 Completed [facility] SARS-COV-2 COVID-19 MODERNA 12+ YRS VACCINE 2020-11-05 00:00:00 Completed [facility] SARS-COV-2 COVID-19 MODERNA 12+ YRS VACCINE 2020-11-05 00:00:00 Completed [facility] SARS-COV-2 COVID-19 MODERNA 12+ YRS VACCINE 2020-11-05 00:00:00 Completed [facility] SARS-COV-2 COVID-19 MODERNA 12+ YRS VACCINE 2020-11-05 00:00:00 Completed [facility] SARS-COV-2 COVID-19 MODERNA 12+ YRS VACCINE 2020-11-05 00:00:00 Completed [facility] SARS-COV-2 COVID-19 MODERNA 12+ YRS VACCINE 2020-11-05 00:00:00 Completed [facility] SARS-COV-2 COVID-19 MODERNA 12+ YRS VACCINE 2020-11-05 00:00:00 Completed [facility] SARS-COV-2 COVID-19 MODERNA 12+ YRS VACCINE 2020-11-05 00:00:00 Completed [facility] SARS-COV-2 COVID-19 MODERNA 12+ YRS VACCINE 2020-11-05 00:00:00 Completed [facility] SARS-COV-2 COVID-19 MODERNA 12+ YRS VACCINE 2020-11-05 00:00:00 Completed [facility] SARS-COV-2 COVID-19 MODERNA 12+ YRS VACCINE 2020-11-05 00:00:00 Completed [facility] SARS-COV-2 COVID-19 MODERNA 12+ YRS VACCINE 2020-11-05 00:00:00 Completed [facility] SARS-COV-2 COVID-19 MODERNA 12+ YRS VACCINE 2020-11-05 00:00:00 Completed [facility] SARS-COV-2 COVID-19 MODERNA 12+ YRS VACCINE 2020-11-05 00:00:00 Completed [facility] SARS-COV-2 COVID-19 MODERNA 12+ YRS VACCINE 2020-11-05 00:00:00 Completed [facility] SARS-COV-2 COVID-19 MODERNA 12+ YRS VACCINE 2020-11-05 00:00:00 Completed [facility] SARS-COV-2 COVID-19 MODERNA 12+ YRS VACCINE 2020-11-05 00:00:00 Completed [facility] SARS-COV-2 COVID-19 MODERNA 12+ YRS VACCINE 2020-11-05 00:00:00 Completed [facility] SARS-COV-2 COVID-19 MODERNA 12+ YRS VACCINE 2020-11-05 00:00:00 Completed [facility] SARS-COV-2 COVID-19 MODERNA 12+ YRS VACCINE 2020-11-05 00:00:00 Completed [facility] SARS-COV-2 COVID-19 MODERNA 12+ YRS VACCINE 2020-11-05 00:00:00 Completed [facility] SARS-COV-2 COVID-19 MODERNA 12+ YRS VACCINE 2020-11-05 00:00:00 Completed [facility] SARS-COV-2 COVID-19 MODERNA 12+ YRS VACCINE 2020-11-05 00:00:00 Completed [facility] SARS-COV-2 COVID-19 MODERNA 12+ YRS VACCINE 2020-11-05 00:00:00 Completed [facility] SARS-COV-2 COVID-19 MODERNA 12+ YRS VACCINE 2020-11-05 00:00:00 Completed [facility] SARS-COV-2 COVID-19 MODERNA 12+ YRS VACCINE 2020-11-05 00:00:00 Completed [facility] SARS-COV-2 COVID-19 MODERNA 12+ YRS VACCINE 2020-11-05 00:00:00 Completed [facility] SARS-COV-2 COVID-19 MODERNA 12+ YRS VACCINE 2020-11-05 00:00:00 Completed [facility] SARS-COV-2 COVID-19 MODERNA 12+ YRS VACCINE 2020-11-05 00:00:00 Completed [facility] SARS-COV-2 COVID-19 MODERNA 12+ YRS VACCINE 2020-11-05 00:00:00 Completed [facility] SARS-COV-2 COVID-19 MODERNA 12+ YRS VACCINE 2020-11-05 00:00:00 Completed [facility] SARS-COV-2 COVID-19 MODERNA 12+ YRS VACCINE 2020-11-05 00:00:00 Completed [facility] SARS-COV-2 COVID-19 MODERNA 12+ YRS VACCINE 2020-11-05 00:00:00 Completed [facility] SARS-COV-2 COVID-19 MODERNA 12+ YRS VACCINE 2020-11-05 00:00:00 Completed [facility] SARS-COV-2 COVID-19 MODERNA 12+ YRS VACCINE 2020-11-05 00:00:00 Completed [facility] SARS-COV-2 COVID-19 MODERNA 12+ YRS VACCINE 2020-11-05 00:00:00 Completed [facility] SARS-COV-2 COVID-19 MODERNA 12+ YRS VACCINE 2020-11-05 00:00:00 Completed [facility] SARS-COV-2 COVID-19 MODERNA 12+ YRS VACCINE 2020-11-05 00:00:00 Completed [facility] SARS-COV-2 COVID-19 MODERNA 12+ YRS VACCINE 2020-11-05 00:00:00 Completed [facility] SARS-COV-2 COVID-19 MODERNA 12+ YRS VACCINE 2020-11-05 00:00:00 Completed [facility] SARS-COV-2 COVID-19 MODERNA 12+ YRS VACCINE 2020-11-05 00:00:00 Completed [facility] SARS-COV-2 COVID-19 MODERNA 12+ YRS VACCINE 2020-11-05 00:00:00 Completed [facility] SARS-COV-2 COVID-19 MODERNA 12+ YRS VACCINE 2020-11-05 00:00:00 Completed [facility] SARS-COV-2 COVID-19 MODERNA 12+ YRS VACCINE 2020-11-05 00:00:00 Completed [facility] SARS-COV-2 COVID-19 MODERNA 12+ YRS VACCINE 2020-11-05 00:00:00 Completed [facility] SARS-COV-2 COVID-19 MODERNA 12+ YRS VACCINE 2020-11-05 00:00:00 Completed [facility] SARS-COV-2 COVID-19 MODERNA 12+ YRS VACCINE 2020-11-05 00:00:00 Completed [facility] SARS-COV-2 COVID-19 MODERNA 12+ YRS VACCINE 2020-11-05 00:00:00 Completed [facility] SARS-COV-2 COVID-19 MODERNA 12+ YRS VACCINE 2020-11-05 00:00:00 Completed [facility] SARS-COV-2 COVID-19 MODERNA 12+ YRS VACCINE 2020-11-05 00:00:00 Completed [facility] SARS-COV-2 COVID-19 MODERNA 12+ YRS VACCINE 2020-11-05 00:00:00 Completed [facility] SARS-COV-2 COVID-19 MODERNA 12+ YRS VACCINE 2020-11-05 00:00:00 Completed [facility] SARS-COV-2 COVID-19 MODERNA 12+ YRS VACCINE 2020-11-05 00:00:00 Completed [facility] SARS-COV-2 COVID-19 MODERNA 12+ YRS VACCINE 2020-11-05 00:00:00 Completed [facility] SARS-COV-2 COVID-19 MODERNA 12+ YRS VACCINE 2020-11-05 00:00:00 Completed [facility] SARS-COV-2 COVID-19 MODERNA 12+ YRS VACCINE 2020-11-05 00:00:00 Completed [facility] SARS-COV-2 COVID-19 MODERNA 12+ YRS VACCINE 2020-11-05 00:00:00 Completed [facility] SARS-COV-2 COVID-19 MODERNA 12+ YRS VACCINE 2020-11-05 00:00:00 Completed [facility] SARS-COV-2 COVID-19 MODERNA 12+ YRS VACCINE 2020-11-05 00:00:00 Completed [facility] SARS-COV-2 COVID-19 MODERNA 12+ YRS VACCINE 2020-11-05 00:00:00 Completed [facility] SARS-COV-2 COVID-19 MODERNA 12+ YRS VACCINE 2020-10-08 00:00:00 Completed [facility] SARS-COV-2 COVID-19 MODERNA 12+ YRS VACCINE 2020-10-08 00:00:00 Completed [facility] SARS-COV-2 COVID-19 MODERNA 12+ YRS VACCINE 2020-10-08 00:00:00 Completed [facility] SARS-COV-2 COVID-19 MODERNA 12+ YRS VACCINE 2020-10-08 00:00:00 Completed [facility] SARS-COV-2 COVID-19 MODERNA 12+ YRS VACCINE 2020-10-08 00:00:00 Completed [facility] SARS-COV-2 COVID-19 MODERNA 12+ YRS VACCINE 2020-10-08 00:00:00 Completed [facility] SARS-COV-2 COVID-19 MODERNA 12+ YRS VACCINE 2020-10-08 00:00:00 Completed [facility] SARS-COV-2 COVID-19 MODERNA 12+ YRS VACCINE 2020-10-08 00:00:00 Completed [facility] SARS-COV-2 COVID-19 MODERNA 12+ YRS VACCINE 2020-10-08 00:00:00 Completed [facility] SARS-COV-2 COVID-19 MODERNA 12+ YRS VACCINE 2020-10-08 00:00:00 Completed [facility] SARS-COV-2 COVID-19 MODERNA 12+ YRS VACCINE 2020-10-08 00:00:00 Completed [facility] SARS-COV-2 COVID-19 MODERNA 12+ YRS VACCINE 2020-10-08 00:00:00 Completed [facility] SARS-COV-2 COVID-19 MODERNA 12+ YRS VACCINE 2020-10-08 00:00:00 Completed [facility] SARS-COV-2 COVID-19 MODERNA 12+ YRS VACCINE 2020-10-08 00:00:00 Completed [facility] SARS-COV-2 COVID-19 MODERNA 12+ YRS VACCINE 2020-10-08 00:00:00 Completed [facility] SARS-COV-2 COVID-19 MODERNA 12+ YRS VACCINE 2020-10-08 00:00:00 Completed [facility] SARS-COV-2 COVID-19 MODERNA 12+ YRS VACCINE 2020-10-08 00:00:00 Completed [facility] SARS-COV-2 COVID-19 MODERNA 12+ YRS VACCINE 2020-10-08 00:00:00 Completed [facility] SARS-COV-2 COVID-19 MODERNA 12+ YRS VACCINE 2020-10-08 00:00:00 Completed [facility] SARS-COV-2 COVID-19 MODERNA 12+ YRS VACCINE 2020-10-08 00:00:00 Completed [facility] SARS-COV-2 COVID-19 MODERNA 12+ YRS VACCINE 2020-10-08 00:00:00 Completed [facility] SARS-COV-2 COVID-19 MODERNA 12+ YRS VACCINE 2020-10-08 00:00:00 Completed [facility] SARS-COV-2 COVID-19 MODERNA 12+ YRS VACCINE 2020-10-08 00:00:00 Completed [facility] SARS-COV-2 COVID-19 MODERNA 12+ YRS VACCINE 2020-10-08 00:00:00 Completed [facility] SARS-COV-2 COVID-19 MODERNA 12+ YRS VACCINE 2020-10-08 00:00:00 Completed [facility] SARS-COV-2 COVID-19 MODERNA 12+ YRS VACCINE 2020-10-08 00:00:00 Completed [facility] SARS-COV-2 COVID-19 MODERNA 12+ YRS VACCINE 2020-10-08 00:00:00 Completed [facility] SARS-COV-2 COVID-19 MODERNA 12+ YRS VACCINE 2020-10-08 00:00:00 Completed [facility] SARS-COV-2 COVID-19 MODERNA 12+ YRS VACCINE 2020-10-08 00:00:00 Completed [facility] SARS-COV-2 COVID-19 MODERNA 12+ YRS VACCINE 2020-10-08 00:00:00 Completed [facility] SARS-COV-2 COVID-19 MODERNA 12+ YRS VACCINE 2020-10-08 00:00:00 Completed [facility] SARS-COV-2 COVID-19 MODERNA 12+ YRS VACCINE 2020-10-08 00:00:00 Completed [facility] SARS-COV-2 COVID-19 MODERNA 12+ YRS VACCINE 2020-10-08 00:00:00 Completed [facility] SARS-COV-2 COVID-19 MODERNA 12+ YRS VACCINE 2020-10-08 00:00:00 Completed [facility] SARS-COV-2 COVID-19 MODERNA 12+ YRS VACCINE 2020-10-08 00:00:00 Completed [facility] SARS-COV-2 COVID-19 MODERNA 12+ YRS VACCINE 2020-10-08 00:00:00 Completed [facility] SARS-COV-2 COVID-19 MODERNA 12+ YRS VACCINE 2020-10-08 00:00:00 Completed [facility] SARS-COV-2 COVID-19 MODERNA 12+ YRS VACCINE 2020-10-08 00:00:00 Completed [facility] SARS-COV-2 COVID-19 MODERNA 12+ YRS VACCINE 2020-10-08 00:00:00 Completed [facility] SARS-COV-2 COVID-19 MODERNA 12+ YRS VACCINE 2020-10-08 00:00:00 Completed [facility] SARS-COV-2 COVID-19 MODERNA 12+ YRS VACCINE 2020-10-08 00:00:00 Completed [facility] SARS-COV-2 COVID-19 MODERNA 12+ YRS VACCINE 2020-10-08 00:00:00 Completed [facility] SARS-COV-2 COVID-19 MODERNA 12+ YRS VACCINE 2020-10-08 00:00:00 Completed [facility] SARS-COV-2 COVID-19 MODERNA 12+ YRS VACCINE 2020-10-08 00:00:00 Completed [facility] SARS-COV-2 COVID-19 MODERNA 12+ YRS VACCINE 2020-10-08 00:00:00 Completed [facility] SARS-COV-2 COVID-19 MODERNA 12+ YRS VACCINE 2020-10-08 00:00:00 Completed [facility] SARS-COV-2 COVID-19 MODERNA 12+ YRS VACCINE 2020-10-08 00:00:00 Completed [facility] SARS-COV-2 COVID-19 MODERNA 12+ YRS VACCINE 2020-10-08 00:00:00 Completed [facility] SARS-COV-2 COVID-19 MODERNA 12+ YRS VACCINE 2020-10-08 00:00:00 Completed [facility] SARS-COV-2 COVID-19 MODERNA 12+ YRS VACCINE 2020-10-08 00:00:00 Completed [facility] SARS-COV-2 COVID-19 MODERNA 12+ YRS VACCINE 2020-10-08 00:00:00 Completed [facility] SARS-COV-2 COVID-19 MODERNA 12+ YRS VACCINE 2020-10-08 00:00:00 Completed [facility] SARS-COV-2 COVID-19 MODERNA 12+ YRS VACCINE 2020-10-08 00:00:00 Completed [facility] SARS-COV-2 COVID-19 MODERNA 12+ YRS VACCINE 2020-10-08 00:00:00 Completed [facility] SARS-COV-2 COVID-19 MODERNA 12+ YRS VACCINE 2020-10-08 00:00:00 Completed [facility] SARS-COV-2 COVID-19 MODERNA 12+ YRS VACCINE 2020-10-08 00:00:00 Completed [facility] SARS-COV-2 COVID-19 MODERNA 12+ YRS VACCINE 2020-10-08 00:00:00 Completed [facility] SARS-COV-2 COVID-19 MODERNA 12+ YRS VACCINE 2020-10-08 00:00:00 Completed [facility] SARS-COV-2 COVID-19 MODERNA 12+ YRS VACCINE 2020-10-08 00:00:00 Completed [facility] SARS-COV-2 COVID-19 MODERNA 12+ YRS VACCINE 2020-10-08 00:00:00 Completed [facility] SARS-COV-2 COVID-19 MODERNA 12+ YRS VACCINE 2020-10-08 00:00:00 Completed [facility] SARS-COV-2 COVID-19 MODERNA 12+ YRS VACCINE 2020-10-08 00:00:00 Completed [facility] SARS-COV-2 COVID-19 MODERNA 12+ YRS VACCINE 2020-10-08 00:00:00 Completed [facility] SARS-COV-2 COVID-19 MODERNA 12+ YRS VACCINE 2020-10-08 00:00:00 Completed [facility] SARS-COV-2 COVID-19 MODERNA 12+ YRS VACCINE 2020-10-08 00:00:00 Completed [facility] SARS-COV-2 COVID-19 MODERNA 12+ YRS VACCINE 2020-10-08 00:00:00 Completed [facility] SARS-COV-2 COVID-19 MODERNA 12+ YRS VACCINE 2020-10-08 00:00:00 Completed [facility] SARS-COV-2 COVID-19 MODERNA 12+ YRS VACCINE 2020-10-08 00:00:00 Completed [facility] SARS-COV-2 COVID-19 MODERNA 12+ YRS VACCINE 2020-10-08 00:00:00 Completed [facility] SARS-COV-2 COVID-19 MODERNA 12+ YRS VACCINE 2020-10-08 00:00:00 Completed [facility] SARS-COV-2 COVID-19 MODERNA 12+ YRS VACCINE 2020-10-08 00:00:00 Completed [facility] SARS-COV-2 COVID-19 MODERNA 12+ YRS VACCINE 2020-10-08 00:00:00 Completed [facility] SARS-COV-2 COVID-19 MODERNA 12+ YRS VACCINE 2020-10-08 00:00:00 Completed [facility] SARS-COV-2 COVID-19 MODERNA 12+ YRS VACCINE 2020-10-08 00:00:00 Completed [facility] SARS-COV-2 COVID-19 MODERNA 12+ YRS VACCINE 2020-10-08 00:00:00 Completed [facility] Zoster Vaccine Recombinant 2018-12-28 00:00:00 Completed [facility] Vaccine Recombinant 2018-12-28 00:00:00 Completed [facility] Vaccine Recombinant 2018-12-28 00:00:00 Completed [facility] Vaccine Recombinant 2018-12-28 00:00:00 Completed [facility] Vaccine Recombinant 2018-12-28 00:00:00 Completed [facility] Vaccine Recombinant 2018-12-28 00:00:00 Completed [facility] Vaccine Recombinant 2018-12-28 00:00:00 Completed [facility] Vaccine Recombinant 2018-12-28 00:00:00 Completed [facility] Vaccine Recombinant 2018-12-28 00:00:00 Completed [facility] Vaccine Recombinant 2018-12-28 00:00:00 Completed [facility] Vaccine Recombinant 2018-12-28 00:00:00 Completed [facility] Vaccine Recombinant 2018-12-28 00:00:00 Completed [facility] Vaccine Recombinant 2018-12-28 00:00:00 Completed [facility] Vaccine Recombinant 2018-12-28 00:00:00 Completed [facility] Vaccine Recombinant 2018-12-28 00:00:00 Completed [facility] Vaccine Recombinant 2018-12-28 00:00:00 Completed [facility] Vaccine Recombinant 2018-12-28 00:00:00 Completed [facility] Vaccine Recombinant 2018-12-28 00:00:00 Completed [facility] Vaccine Recombinant 2018-12-28 00:00:00 Completed [facility] Vaccine Recombinant 2018-12-28 00:00:00 Completed [facility] Vaccine Recombinant 2018-12-28 00:00:00 Completed [facility] Vaccine Recombinant 2018-12-28 00:00:00 Completed [facility] Vaccine Recombinant 2018-12-28 00:00:00 Completed [facility] Vaccine Recombinant 2018-12-28 00:00:00 Completed [facility] Vaccine Recombinant 2018-10-29 00:00:00 Completed [facility] Vaccine Recombinant 2018-10-29 00:00:00 Completed [facility] Vaccine Recombinant 2018-10-29 00:00:00 Completed [facility] Vaccine Recombinant 2018-10-29 00:00:00 Completed [facility] Vaccine Recombinant 2018-10-29 00:00:00 Completed [facility] Vaccine Recombinant 2018-10-29 00:00:00 Completed [facility] Vaccine Recombinant 2018-10-29 00:00:00 Completed [facility] Vaccine Recombinant 2018-10-29 00:00:00 Completed [facility] Vaccine Recombinant 2018-10-29 00:00:00 Completed [facility] Zoster Vaccine Recombinant 2018-10-29 00:00:00 Completed [facility] Zoster Vaccine Recombinant 2018-10-29 00:00:00 Completed [facility] Zoster Vaccine Recombinant 2018-10-29 00:00:00 Completed [facility] Zoster Vaccine Recombinant 2018-10-29 00:00:00 Completed [facility] Zoster Vaccine Recombinant 2018-10-29 00:00:00 Completed [facility] Zoster Vaccine Recombinant 2018-10-29 00:00:00 Completed [facility] Zoster Vaccine Recombinant 2018-10-29 00:00:00 Completed [facility] Zoster Vaccine Recombinant 2018-10-29 00:00:00 Completed [facility] Zoster Vaccine Recombinant 2018-10-29 00:00:00 Completed [facility] Zoster Vaccine Recombinant 2018-10-29 00:00:00 Completed [facility] Zoster Vaccine Recombinant 2018-10-29 00:00:00 Completed [facility] Zoster Vaccine Recombinant 2018-10-29 00:00:00 Completed [facility] Zoster Vaccine Recombinant 2018-10-29 00:00:00 Completed [facility] Zoster Vaccine Recombinant 2018-10-29 00:00:00 Completed [facility] Zoster Vaccine Recombinant 2018-10-29 00:00:00 Completed [facility] DT/Tetanus 2014-01-29 00:00:00 Completed [facility] DT/Tetanus 2014-01-29 00:00:00 Completed [facility] DT/Tetanus 2014-01-29 00:00:00 Completed [facility] DT/Tetanus 2014-01-29 00:00:00 Completed [facility] DT/Tetanus 2014-01-29 00:00:00 Completed [facility] DT/Tetanus 2014-01-29 00:00:00 Completed [facility] DT/Tetanus 2014-01-29 00:00:00 Completed [facility] DT/Tetanus 2014-01-29 00:00:00 Completed [facility] DT/Tetanus 2014-01-29 00:00:00 Completed [facility] DT/Tetanus 2014-01-29 00:00:00 Completed [facility] DT/Tetanus 2014-01-29 00:00:00 Completed [facility] DT/Tetanus 2014-01-29 00:00:00 Completed [facility] DT/Tetanus 2014-01-29 00:00:00 Completed [facility] DT/Tetanus 2014-01-29 00:00:00 Completed [facility] DT/Tetanus 2014-01-29 00:00:00 Completed [facility] DT/Tetanus 2014-01-29 00:00:00 Completed [facility] DT/Tetanus 2014-01-29 00:00:00 Completed [facility] DT/Tetanus 2014-01-29 00:00:00 Completed [facility] DT/Tetanus 2014-01-29 00:00:00 Completed [facility] DT/Tetanus 2014-01-29 00:00:00 Completed [facility] DT/Tetanus 2014-01-29 00:00:00 Completed [facility] DT/Tetanus 2014-01-29 00:00:00 Completed [facility] DT/Tetanus 2014-01-29 00:00:00 Completed [facility] DT/Tetanus 2014-01-29 00:00:00 Completed [facility] DT/Tetanus 2014-01-29 00:00:00 Completed [facility] DT/Tetanus 2014-01-29 00:00:00 Completed [facility] DT/Tetanus 2014-01-29 00:00:00 Completed [facility] DT/Tetanus 2014-01-29 00:00:00 Completed [facility] DT/Tetanus 2014-01-29 00:00:00 Completed [facility] DT/Tetanus 2014-01-29 00:00:00 Completed [facility] DT/Tetanus 2014-01-29 00:00:00 Completed [facility] DT/Tetanus 2014-01-29 00:00:00 Completed [facility] DT/Tetanus 2014-01-29 00:00:00 Completed [facility] DT/Tetanus 2014-01-29 00:00:00 Completed [facility] DT/Tetanus 2014-01-29 00:00:00 Completed [facility] DT/Tetanus 2014-01-29 00:00:00 Completed [facility] DT/Tetanus 2014-01-29 00:00:00 Completed [facility] DT/Tetanus 2014-01-29 00:00:00 Completed [facility] DT/Tetanus 2014-01-29 00:00:00 Completed [facility] DT/Tetanus 2014-01-29 00:00:00 Completed [facility] DT/Tetanus 2014-01-29 00:00:00 Completed [facility] DT/Tetanus 2014-01-29 00:00:00 Completed [facility] DT/Tetanus 2014-01-29 00:00:00 Completed [facility] DT/Tetanus 2014-01-29 00:00:00 Completed [facility] DT/Tetanus 2014-01-29 00:00:00 Completed [facility] DT/Tetanus 2014-01-29 00:00:00 Completed [facility] DT/Tetanus 2014-01-29 00:00:00 Completed [facility] DT/Tetanus 2014-01-29 00:00:00 Completed [facility] DT/Tetanus 2014-01-29 00:00:00 Completed [facility] DT/Tetanus 2014-01-29 00:00:00 Completed [facility] DT/Tetanus 2014-01-29 00:00:00 Completed [facility] DT/Tetanus 2014-01-29 00:00:00 Completed [facility] SARS-COV-2 COVID-19 MODERNA 12+ YRS VACCINE Unknown Completed [facility] SARS-COV-2 COVID-19 MODERNA 12+ YRS VACCINE Unknown Completed [facility] SARS-COV-2 COVID-19 MODERNA 12+ YRS VACCINE Unknown Completed [facility] Influenza Virus Vaccine Unknown Completed [facility] Pneumococcal 20 Conjugate, PCV20 (Prevnar 20) Unknown Completed [facility] Influenza Virus Vaccine Quad IM, Preserv and ABX Free 6 MO-64 YRS (FLUCELVAX) Unknown Completed [facility] SARS-COV-2 COVID-19 VACCINE 12 YRS+, BIVALENT 0.5ML, IM, (MODERNA-BLUE TOP) Unknown Completed [facility] DT/Tetanus Unknown Completed [facility] Influenza Virus Vaccine - Whole Unknown Completed [facility] Zoster Vaccine Recombinant Unknown Completed [facility] Zoster Vaccine Recombinant Unknown Completed [facility] SARS-COV-2 COVID-19 MODERNA 12+ YRS VACCINE Unknown Completed [facility] SARS-COV-2 COVID-19 MODERNA 12+ YRS VACCINE Unknown Completed [facility] SARS-COV-2 COVID-19 MODERNA 12+ YRS VACCINE Unknown Completed [facility] Influenza Virus Vaccine Unknown Completed [facility] Pneumococcal 20 Conjugate, PCV20 (Prevnar 20) Unknown Completed [facility] Influenza Virus Vaccine Quad IM, Preserv and ABX Free 6 MO-64 YRS (FLUCELVAX) Unknown Completed [facility] SARS-COV-2 COVID-19 VACCINE 12 YRS+, BIVALENT 0.5ML, IM, (MODERNA-BLUE TOP) Unknown Completed [facility] DT/Tetanus Unknown Completed [facility] Influenza Virus Vaccine - Whole Unknown Completed [facility] Zoster Vaccine Recombinant Unknown Completed [facility] Zoster Vaccine Recombinant Unknown Completed [facility] SARS-COV-2 COVID-19 MODERNA 12+ YRS VACCINE Unknown Completed [facility] SARS-COV-2 COVID-19 MODERNA 12+ YRS VACCINE Unknown Completed [facility] SARS-COV-2 COVID-19 MODERNA 12+ YRS VACCINE Unknown Completed [facility] Influenza Virus Vaccine Unknown Completed [facility] Pneumococcal 20 Conjugate, PCV20 (Prevnar 20) Unknown Completed [facility] Influenza Virus Vaccine Quad IM, Preserv and ABX Free 6 MO-64 YRS (FLUCELVAX) Unknown Completed [facility] SARS-COV-2 COVID-19 VACCINE 12 YRS+, BIVALENT 0.5ML, IM, (MODERNA-BLUE TOP) Unknown Completed [facility] DT/Tetanus Unknown Completed [facility] Influenza Virus Vaccine - Whole Unknown Completed [facility] Zoster Vaccine Recombinant Unknown Completed [facility] Zoster Vaccine Recombinant Unknown Completed [facility] SARS-COV-2 COVID-19 MODERNA 12+ YRS VACCINE Unknown Completed [facility] SARS-COV-2 COVID-19 MODERNA 12+ YRS VACCINE Unknown Completed [facility] SARS-COV-2 COVID-19 MODERNA 12+ YRS VACCINE Unknown Completed [facility] Influenza Virus Vaccine Unknown Completed [facility] Pneumococcal 20 Conjugate, PCV20 (Prevnar 20) Unknown Completed [facility] Influenza Virus Vaccine Quad IM, Preserv and ABX Free 6 MO-64 YRS (FLUCELVAX) Unknown Completed [facility] SARS-COV-2 COVID-19 VACCINE 12 YRS+, BIVALENT 0.5ML, IM, (MODERNA-BLUE TOP) Unknown Completed [facility] DT/Tetanus Unknown Completed [facility] Influenza Virus Vaccine - Whole Unknown Completed [facility] Zoster Vaccine Recombinant Unknown Completed [facility] Zoster Vaccine Recombinant Unknown Completed [facility] SARS-COV-2 COVID-19 MODERNA 12+ YRS VACCINE Unknown Completed [facility] SARS-COV-2 COVID-19 MODERNA 12+ YRS VACCINE Unknown Completed [facility] SARS-COV-2 COVID-19 MODERNA 12+ YRS VACCINE Unknown Completed [facility] Influenza Virus Vaccine Unknown Completed [facility] Pneumococcal 20 Conjugate, PCV20 (Prevnar 20) Unknown Completed [facility] Influenza Virus Vaccine Quad IM, Preserv and ABX Free 6 MO-64 YRS (FLUCELVAX) Unknown Completed [facility] SARS-COV-2 COVID-19 VACCINE 12 YRS+, BIVALENT 0.5ML, IM, (MODERNA-BLUE TOP) Unknown Completed [facility] DT/Tetanus Unknown Completed [facility] Influenza Virus Vaccine - Whole Unknown Completed [facility] Zoster Vaccine Recombinant Unknown Completed [facility] Zoster Vaccine Recombinant Unknown Completed [facility] SARS-COV-2 COVID-19 MODERNA 12+ YRS VACCINE Unknown Completed [facility] SARS-COV-2 COVID-19 MODERNA 12+ YRS VACCINE Unknown Completed [facility] SARS-COV-2 COVID-19 MODERNA 12+ YRS VACCINE Unknown Completed [facility] Influenza Virus Vaccine Unknown Completed [facility] Pneumococcal 20 Conjugate, PCV20 (Prevnar 20) Unknown Completed [facility] DT/Tetanus Unknown Completed [facility] Influenza Virus Vaccine - Whole Unknown Completed [facility] Zoster Vaccine Recombinant Unknown Completed [facility] Zoster Vaccine Recombinant Unknown Completed [facility] SARS-COV-2 COVID-19 MODERNA 12+ YRS VACCINE Unknown Completed [facility] SARS-COV-2 COVID-19 MODERNA 12+ YRS VACCINE Unknown Completed [facility] SARS-COV-2 COVID-19 MODERNA 12+ YRS VACCINE Unknown Completed [facility] Influenza Virus Vaccine Unknown Completed [facility] Pneumococcal 20 Conjugate, PCV20 (Prevnar 20) Unknown Completed [facility] DT/Tetanus Unknown Completed [facility] Influenza Virus Vaccine - Whole Unknown Completed [facility] Zoster Vaccine Recombinant Unknown Completed [facility] Zoster Vaccine Recombinant Unknown Completed [facility] SARS-COV-2 COVID-19 MODERNA 12+ YRS VACCINE Unknown Completed [facility] SARS-COV-2 COVID-19 MODERNA 12+ YRS VACCINE Unknown Completed [facility] SARS-COV-2 COVID-19 MODERNA 12+ YRS VACCINE Unknown Completed [facility] Influenza Virus Vaccine Unknown Completed [facility] Pneumococcal 20 Conjugate, PCV20 (Prevnar 20) Unknown Completed [facility] DT/Tetanus Unknown Completed [facility] Influenza Virus Vaccine - Whole Unknown Completed [facility] Zoster Vaccine Recombinant Unknown Completed [facility] Zoster Vaccine Recombinant Unknown Completed [facility] SARS-COV-2 COVID-19 MODERNA 12+ YRS VACCINE Unknown Completed [facility] SARS-COV-2 COVID-19 MODERNA 12+ YRS VACCINE Unknown Completed [facility] SARS-COV-2 COVID-19 MODERNA 12+ YRS VACCINE Unknown Completed [facility] Influenza Virus Vaccine Unknown Completed [facility] Pneumococcal 20 Conjugate, PCV20 (Prevnar 20) Unknown Completed [facility] DT/Tetanus Unknown Completed [facility] Influenza Virus Vaccine - Whole Unknown Completed [facility] Zoster Vaccine Recombinant Unknown Completed [facility] Zoster Vaccine Recombinant Unknown Completed [facility] SARS-COV-2 COVID-19 MODERNA 12+ YRS VACCINE Unknown Completed [facility] SARS-COV-2 COVID-19 MODERNA 12+ YRS VACCINE Unknown Completed [facility] SARS-COV-2 COVID-19 MODERNA 12+ YRS VACCINE Unknown Completed [facility] Influenza Virus Vaccine Unknown Completed [facility] Pneumococcal 20 Conjugate, PCV20 (Prevnar 20) Unknown Completed [facility] DT/Tetanus Unknown Completed [facility] Influenza Virus Vaccine - Whole Unknown Completed [facility] Zoster Vaccine Recombinant Unknown Completed [facility] Zoster Vaccine Recombinant Unknown Completed [facility] SARS-COV-2 COVID-19 MODERNA 12+ YRS VACCINE Unknown Completed [facility] SARS-COV-2 COVID-19 MODERNA 12+ YRS VACCINE Unknown Completed [facility] SARS-COV-2 COVID-19 MODERNA 12+ YRS VACCINE Unknown Completed [facility] Influenza Virus Vaccine Unknown Completed [facility] Pneumococcal 20 Conjugate, PCV20 (Prevnar 20) Unknown Completed [facility] DT/Tetanus Unknown Completed [facility] Influenza Virus Vaccine - Whole Unknown Completed [facility] Zoster Vaccine Recombinant Unknown Completed [facility] Zoster Vaccine Recombinant Unknown Completed [facility] SARS-COV-2 COVID-19 MODERNA 12+ YRS VACCINE Unknown Completed [facility] SARS-COV-2 COVID-19 MODERNA 12+ YRS VACCINE Unknown Completed [facility] SARS-COV-2 COVID-19 MODERNA 12+ YRS VACCINE Unknown Completed [facility] Influenza Virus Vaccine Unknown Completed [facility] DT/Tetanus Unknown Completed [facility] Influenza Virus Vaccine - Whole Unknown Completed [facility] Zoster Vaccine Recombinant Unknown Completed [facility] Zoster Vaccine Recombinant Unknown Completed [facility] SARS-COV-2 COVID-19 MODERNA 12+ YRS VACCINE Unknown Completed [facility] SARS-COV-2 COVID-19 MODERNA 12+ YRS VACCINE Unknown Completed [facility] SARS-COV-2 COVID-19 MODERNA 12+ YRS VACCINE Unknown Completed [facility] Influenza Virus Vaccine Unknown Completed [facility] DT/Tetanus Unknown Completed [facility] Influenza Virus Vaccine - Whole Unknown Completed [facility] Zoster Vaccine Recombinant Unknown Completed [facility] Zoster Vaccine Recombinant Unknown Completed [facility] SARS-COV-2 COVID-19 MODERNA 12+ YRS VACCINE Unknown Completed [facility] SARS-COV-2 COVID-19 MODERNA 12+ YRS VACCINE Unknown Completed [facility] SARS-COV-2 COVID-19 MODERNA 12+ YRS VACCINE Unknown Completed [facility] Influenza Virus Vaccine Unknown Completed [facility] DT/Tetanus Unknown Completed [facility] Influenza Virus Vaccine - Whole Unknown Completed [facility] Zoster Vaccine Recombinant Unknown Completed [facility] Zoster Vaccine Recombinant Unknown Completed [facility] SARS-COV-2 COVID-19 MODERNA 12+ YRS VACCINE Unknown Completed [facility] SARS-COV-2 COVID-19 MODERNA 12+ YRS VACCINE Unknown Completed [facility] SARS-COV-2 COVID-19 MODERNA 12+ YRS VACCINE Unknown Completed [facility] Influenza Virus Vaccine Unknown Completed [facility] DT/Tetanus Unknown [facility] Influenza Virus Vaccine - Whole Unknown Completed [place] [facility] Zoster Vaccine Recombinant Unknown Completed [facility] Zoster Vaccine Recombinant Unknown Completed [facility] SARS-COV-2 COVID-19 MODERNA 12+ YRS VACCINE Unknown Completed [facility] SARS-COV-2 COVID-19 MODERNA 12+ YRS VACCINE Unknown Completed [facility] SARS-COV-2 COVID-19 MODERNA 12+ YRS VACCINE Unknown Completed [facility] Influenza Virus Vaccine Unknown Completed [facility] DT/Tetanus Unknown Completed [facility] Influenza Virus Vaccine - Whole Unknown Completed [place] [facility] Zoster Vaccine Recombinant Unknown Completed [facility] Zoster Vaccine Recombinant Unknown Completed [facility] SARS-COV-2 COVID-19 MODERNA 12+ YRS VACCINE Unknown Completed [facility] SARS-COV-2 COVID-19 MODERNA 12+ YRS VACCINE Unknown Completed [facility] SARS-COV-2 COVID-19 MODERNA 12+ YRS VACCINE Unknown Completed [facility] Influenza Virus Vaccine Unknown Completed [facility] DT/Tetanus Unknown Completed [facility] Influenza Virus Vaccine - Whole Unknown Completed [facility] Zoster Vaccine Recombinant Unknown Completed [facility] Zoster Vaccine Recombinant Unknown Completed [facility] SARS-COV-2 COVID-19 MODERNA 12+ YRS VACCINE Unknown Completed [facility] SARS-COV-2 COVID-19 MODERNA 12+ YRS VACCINE Unknown Completed [facility] DT/T[facility]anus [facility] Zoster Vaccine Recombinant Unknown Completed [facility] Zoster Vaccine Recombinant Unknown Completed [facility] SARS-COV-2 COVID-19 MODERNA 12+ YRS VACCINE Unknown Completed [facility] SARS-COV-2 COVID-19 MODERNA 12+ YRS VACCINE Unknown Completed [facility] DT/Tetanus Unknown Completed [facility] Zoster Vaccine Recombinant Unknown Completed [facility] Zoster Vaccine Recombinant Unknown Completed [facility] SARS-COV-2 COVID-19 MODERNA 12+ YRS VACCINE Unknown Completed [facility] SARS-COV-2 COVID-19 MODERNA 12+ YRS VACCINE Unknown Completed [facility] SARS-COV-2 COVID-19 MODERNA 12+ YRS VACCINE Unknown Completed [facility] Influenza Virus Vaccine Unknown Completed [facility] Pneumococcal 20 Conjugate, PCV20 (Prevnar 20) Unknown Completed [facility] Influenza Virus Vaccine Quad IM, Preserv and ABX Free 6 MO-64 YRS (FLUCELVAX) Unknown Completed [facility] SARS-COV-2 COVID-19 VACCINE 12 YRS+, BIVALENT 0.5ML, IM, (MODERNA-BLUE TOP) Unknown Completed [facility] DT/Tetanus Unknown Completed [facility] Influenza Virus Vaccine - Whole Unknown Completed [facility] Zoster Vaccine Recombinant Unknown Completed [facility] Zoster Vaccine Recombinant Unknown Completed [facility] SARS-COV-2 COVID-19 MODERNA 12+ YRS VACCINE Unknown Completed [facility] SARS-COV-2 COVID-19 MODERNA 12+ YRS VACCINE Unknown Completed [facility] SARS-COV-2 COVID-19 MODERNA 12+ YRS VACCINE Unknown Completed [facility] Influenza Virus Vaccine Unknown Completed [facility] Pneumococcal 20 Conjugate, PCV20 (Prevnar 20) Unknown Completed [facility] Influenza Virus Vaccine Quad IM, Preserv and ABX Free 6 MO-64 YRS (FLUCELVAX) Unknown Completed [facility] SARS-COV-2 COVID-19 VACCINE 12 YRS+, BIVALENT 0.5ML, IM, (MODERNA-BLUE TOP) Unknown Completed [facility] DT/Tetanus Unknown Completed [facility] Influenza Virus Vaccine - Whole Unknown Completed [facility] Zoster Vaccine Recombinant Unknown Completed [facility] Zoster Vaccine Recombinant Unknown Completed [facility] SARS-COV-2 COVID-19 MODERNA 12+ YRS VACCINE Unknown Completed [facility] SARS-COV-2 COVID-19 MODERNA 12+ YRS VACCINE Unknown Completed [facility] SARS-COV-2 COVID-19 MODERNA 12+ YRS VACCINE Unknown Completed [facility] Influenza Virus Vaccine Unknown Completed [facility] Pneumococcal 20 Conjugate, PCV20 (Prevnar 20) Unknown Completed [facility] Influenza Virus Vaccine Quad IM, Preserv and ABX Free 6 MO-64 YRS (FLUCELVAX) Unknown Completed [facility] SARS-COV-2 COVID-19 VACCINE 12 YRS+, BIVALENT 0.5ML, IM, (MODERNA-BLUE TOP) Unknown Completed [facility] DT/Tetanus Unknown Completed [facility] Influenza Virus Vaccine - Whole Unknown Completed [facility] Zoster Vaccine Recombinant Unknown Completed [facility] Zoster Vaccine Recombinant Unknown Completed [facility] SARS-COV-2 COVID-19 MODERNA 12+ YRS VACCINE Unknown Completed [facility] SARS-COV-2 COVID-19 MODERNA 12+ YRS VACCINE Unknown Completed [facility] SARS-COV-2 COVID-19 MODERNA 12+ YRS VACCINE Unknown Completed [facility] Influenza Virus Vaccine Unknown Completed [facility] Pneumococcal 20 Conjugate, PCV20 (Prevnar 20) Unknown Completed [facility] Influenza Virus Vaccine Quad IM, Preserv and ABX Free 6 MO-64 YRS (FLUCELVAX) Unknown Completed [facility] SARS-COV-2 COVID-19 VACCINE 12 YRS+, BIVALENT 0.5ML, IM, (MODERNA-BLUE TOP) Unknown Completed [facility] DT/Tetanus Unknown Completed [facility] Influenza Virus Vaccine - Whole Unknown Completed [facility] Zoster Vaccine Recombinant Unknown Completed [facility] Zoster Vaccine Recombinant Unknown Completed [facility] SARS-COV-2 COVID-19 MODERNA 12+ YRS VACCINE Unknown Completed [facility] SARS-COV-2 COVID-19 MODERNA 12+ YRS VACCINE Unknown Completed [facility] SARS-COV-2 COVID-19 MODERNA 12+ YRS VACCINE Unknown Completed [facility] Influenza Virus Vaccine Unknown Completed [facility] Pneumococcal 20 Conjugate, PCV20 (Prevnar 20) Unknown Completed [facility] Influenza Virus Vaccine Quad IM, Preserv and ABX Free 6 MO-64 YRS (FLUCELVAX) Unknown Completed [facility] SARS-COV-2 COVID-19 VACCINE 12 YRS+, BIVALENT 0.5ML, IM, (MODERNA-BLUE TOP) Unknown Completed [facility] DT/Tetanus Unknown Completed [facility] Influenza Virus Vaccine - Whole Unknown Completed [facility] Zoster Vaccine Recombinant Unknown Completed [facility] Zoster Vaccine Recombinant Unknown Completed [facility] SARS-COV-2 COVID-19 MODERNA 12+ YRS VACCINE Unknown Completed [facility] SARS-COV-2 COVID-19 MODERNA 12+ YRS VACCINE Unknown Completed [facility] SARS-COV-2 COVID-19 MODERNA 12+ YRS VACCINE Unknown Completed [facility] Influenza Virus Vaccine Unknown Completed [facility] Pneumococcal 20 Conjugate, PCV20 (Prevnar 20) Unknown Completed [facility] Influenza Virus Vaccine Quad IM, Preserv and ABX Free 6 MO-64 YRS (FLUCELVAX) Unknown Completed [facility] SARS-COV-2 COVID-19 VACCINE 12 YRS+, BIVALENT 0.5ML, IM, (MODERNA-BLUE TOP) Unknown Completed [facility] DT/Tetanus Unknown Completed [facility] Influenza Virus Vaccine - Whole Unknown Completed [place] [facility] Zoster Vaccine Recombinant Unknown Completed [facility] Zoster Vaccine Recombinant Unknown Completed [facility] SARS-COV-2 COVID-19 MODERNA 12+ YRS VACCINE Unknown Completed [facility] SARS-COV-2 COVID-19 MODERNA 12+ YRS VACCINE Unknown Completed [facility] SARS-COV-2 COVID-19 MODERNA 12+ YRS VACCINE Unknown Completed [facility] Influenza Virus Vaccine Unknown Completed [facility] Pneumococcal 20 Conjugate, PCV20 (Prevnar 20) Unknown Completed [facility] Influenza Virus Vaccine Quad IM, Preserv and ABX Free 6 MO-64 YRS (FLUCELVAX) Unknown Completed [facility] SARS-COV-2 COVID-19 VACCINE 12 YRS+, BIVALENT 0.5ML, IM, (MODERNA-BLUE TOP) Unknown Completed [facility] DT/Tetanus Unknown Completed [facility] Influenza Virus Vaccine - Whole Unknown Completed [place] [facility] Zoster Vaccine Recombinant Unknown Completed [facility] Zoster Vaccine Recombinant Unknown Completed [facility] SARS-COV-2 COVID-19 MODERNA 12+ YRS VACCINE Unknown Completed [facility] SARS-COV-2 COVID-19 MODERNA 12+ YRS VACCINE Unknown Completed [facility] SARS-COV-2 COVID-19 MODERNA 12+ YRS VACCINE Unknown Completed [facility] Influenza Virus Vaccine Unknown Completed [facility] Pneumococcal 20 Conjugate, PCV20 (Prevnar 20) Unknown Completed [facility] Influenza Virus Vaccine Quad IM, Preserv and ABX Free 6 MO-64 YRS (FLUCELVAX) Unknown Completed [facility] SARS-COV-2 COVID-19 VACCINE 12 YRS+, BIVALENT 0.5ML, IM, (MODERNA-BLUE TOP) Unknown Completed [facility] DT/Tetanus Unknown Completed [facility] Influenza Virus Vaccine - Whole Unknown Completed [facility] Zoster Vaccine Recombinant Unknown Completed [facility] Zoster Vaccine Recombinant Unknown Completed [facility] SARS-COV-2 COVID-19 MODERNA 12+ YRS VACCINE Unknown Completed [facility] SARS-COV-2 COVID-19 MODERNA 12+ YRS VACCINE Unknown Completed [facility] SARS-COV-2 COVID-19 MODERNA 12+ YRS VACCINE Unknown Completed [facility] Influenza Virus Vaccine Unknown Completed [facility] Pneumococcal 20 Conjugate, PCV20 (Prevnar 20) Unknown Completed [facility] Influenza Virus Vaccine Quad IM, Preserv and ABX Free 6 MO-64 YRS (FLUCELVAX) Unknown Completed [facility] SARS-COV-2 COVID-19 VACCINE 12 YRS+, BIVALENT 0.5ML, IM, (MODERNA-BLUE TOP) Unknown Completed [facility] DT/Tetanus Unknown Completed [facility] Influenza Virus Vaccine - Whole Unknown Completed [facility] Zoster Vaccine Recombinant Unknown Completed [facility] Zoster Vaccine Recombinant Unknown Completed [facility] SARS-COV-2 COVID-19 MODERNA 12+ YRS VACCINE Unknown Completed [facility] SARS-COV-2 COVID-19 MODERNA 12+ YRS VACCINE Unknown Completed [facility] SARS-COV-2 COVID-19 MODERNA 12+ YRS VACCINE Unknown Completed [facility] Influenza Virus Vaccine Unknown Completed [facility] Pneumococcal 20 Conjugate, PCV20 (Prevnar 20) Unknown Completed [facility] Influenza Virus Vaccine Quad IM, Preserv and ABX Free 6 MO-64 YRS (FLUCELVAX) Unknown Completed [facility] SARS-COV-2 COVID-19 VACCINE 12 YRS+, BIVALENT 0.5ML, IM, (MODERNA-BLUE TOP) Unknown Completed [facility] DT/Tetanus Unknown Completed [facility] Influenza Virus Vaccine - Whole Unknown Completed [facility] Zoster Vaccine Recombinant Unknown Completed [facility] Zoster Vaccine Recombinant Unknown Completed [facility] SARS-COV-2 COVID-19 MODERNA 12+ YRS VACCINE Unknown Completed [facility] SARS-COV-2 COVID-19 MODERNA 12+ YRS VACCINE Unknown Completed [facility] SARS-COV-2 COVID-19 MODERNA 12+ YRS VACCINE Unknown Completed [facility] Influenza Virus Vaccine Unknown Completed [facility] Pneumococcal 20 Conjugate, PCV20 (Prevnar 20) Unknown Completed [facility] Influenza Virus Vaccine Quad IM, Preserv and ABX Free 6 MO-64 YRS (FLUCELVAX) Unknown Completed [facility] SARS-COV-2 COVID-19 VACCINE 12 YRS+, BIVALENT 0.5ML, IM, (MODERNA-BLUE TOP) Unknown Completed [facility] DT/Tetanus Unknown Completed [facility] Influenza Virus Vaccine - Whole Unknown Completed [facility] Zoster Vaccine Recombinant Unknown Completed [facility] Zoster Vaccine Recombinant Unknown Completed [facility] Influenza Virus Vaccine Quad IM, Preserv and ABX Free 6 MO-64 YRS (FLUCELVAX) Unknown Completed [facility] SARS-COV-2 COVID-19 MODERNA 12+ YRS VACCINE Unknown Completed [facility] SARS-COV-2 COVID-19 MODERNA 12+ YRS VACCINE Unknown Completed [facility] SARS-COV-2 COVID-19 MODERNA 12+ YRS VACCINE Unknown Completed [facility] Influenza Virus Vaccine Unknown Completed [facility] Pneumococcal 20 Conjugate, PCV20 (Prevnar 20) Unknown Completed [facility] Influenza Virus Vaccine Quad IM, Preserv and ABX Free 6 MO-64 YRS (FLUCELVAX) Unknown Completed [facility] SARS-COV-2 COVID-19 VACCINE 12 YRS+, BIVALENT 0.5ML, IM, (MODERNA-BLUE TOP) Unknown Completed [facility] DT/Tetanus Unknown Completed [facility] Influenza Virus Vaccine - Whole Unknown Completed [facility] Zoster Vaccine Recombinant Unknown Completed [facility] Zoster Vaccine Recombinant Unknown Completed [facility] Influenza Virus Vaccine Quad IM, Preserv and ABX Free 6 MO-64 YRS (FLUCELVAX) Unknown Completed [facility] SARS-COV-2 COVID-19 MODERNA 12+ YRS VACCINE Unknown Completed [facility] SARS-COV-2 COVID-19 MODERNA 12+ YRS VACCINE Unknown Completed [facility] SARS-COV-2 COVID-19 MODERNA 12+ YRS VACCINE Unknown Completed [facility] Influenza Virus Vaccine Unknown Completed [facility] Pneumococcal 20 Conjugate, PCV20 (Prevnar 20) Unknown Completed [facility] Influenza Virus Vaccine Quad IM, Preserv and ABX Free 6 MO-64 YRS (FLUCELVAX) Unknown Completed [facility] SARS-COV-2 COVID-19 VACCINE 12 YRS+, BIVALENT 0.5ML, IM, (MODERNA-BLUE TOP) Unknown Completed [facility] DT/Tetanus Unknown Completed [facility] Influenza Virus Vaccine - Whole Unknown Completed [facility] Zoster Vaccine Recombinant Unknown Completed [facility] Zoster Vaccine Recombinant Unknown Completed [facility] Influenza Virus Vaccine Quad IM, Preserv and ABX Free 6 MO-64 YRS (FLUCELVAX) Unknown Completed [facility] SARS-COV-2 COVID-19 MODERNA 12+ YRS VACCINE Unknown Completed [facility] SARS-COV-2 COVID-19 MODERNA 12+ YRS VACCINE Unknown Completed [facility] SARS-COV-2 COVID-19 MODERNA 12+ YRS VACCINE Unknown Completed [facility] Influenza Virus Vaccine Unknown Completed [facility] Pneumococcal 20 Conjugate, PCV20 (Prevnar 20) Unknown Completed [facility] Influenza Virus Vaccine Quad IM, Preserv and ABX Free 6 MO-64 YRS (FLUCELVAX) Unknown Completed [facility] SARS-COV-2 COVID-19 VACCINE 12 YRS+, BIVALENT 0.5ML, IM, (MODERNA-BLUE TOP) Unknown Completed [facility] DT/Tetanus Unknown Completed [facility] Influenza Virus Vaccine - Whole Unknown Completed [facility] Zoster Vaccine Recombinant Unknown Completed [facility] Zoster Vaccine Recombinant Unknown Completed [facility] Influenza Virus Vaccine Quad IM, Preserv and ABX Free 6 MO-64 YRS (FLUCELVAX) Unknown Completed [facility] SARS-COV-2 COVID-19 MODERNA 12+ YRS VACCINE Unknown Completed [facility] SARS-COV-2 COVID-19 MODERNA 12+ YRS VACCINE Unknown Completed [facility] SARS-COV-2 COVID-19 MODERNA 12+ YRS VACCINE Unknown Completed [facility] Influenza Virus Vaccine Unknown Completed [facility] Pneumococcal 20 Conjugate, PCV20 (Prevnar 20) Unknown Completed [facility] Influenza Virus Vaccine Quad IM, Preserv and ABX Free 6 MO-64 YRS (FLUCELVAX) Unknown Completed [facility] SARS-COV-2 COVID-19 VACCINE 12 YRS+, BIVALENT 0.5ML, IM, (MODERNA-BLUE TOP) Unknown Completed [facility] DT/Tetanus Unknown Completed [facility] Influenza Virus Vaccine - Whole Unknown Completed [facility] Zoster Vaccine Recombinant Unknown Completed [facility] Zoster Vaccine Recombinant Unknown Completed [facility] Influenza Virus Vaccine Quad IM, Preserv and ABX Free 6 MO-64 YRS (FLUCELVAX) Unknown Completed [facility] SARS-COV-2 COVID-19 MODERNA 12+ YRS VACCINE Unknown Completed [facility] SARS-COV-2 COVID-19 MODERNA 12+ YRS VACCINE Unknown Completed [facility] SARS-COV-2 COVID-19 MODERNA 12+ YRS VACCINE Unknown Completed [facility] Influenza Virus Vaccine Unknown Completed [facility] Pneumococcal 20 Conjugate, PCV20 (Prevnar 20) Unknown Completed [facility] Influenza Virus Vaccine Quad IM, Preserv and ABX Free 6 MO-64 YRS (FLUCELVAX) Unknown Completed [facility] SARS-COV-2 COVID-19 VACCINE 12 YRS+, BIVALENT 0.5ML, IM, (MODERNA-BLUE TOP) Unknown Completed [facility] DT/Tetanus Unknown Completed [facility] Influenza Virus Vaccine - Whole Unknown Completed [facility] Zoster Vaccine Recombinant Unknown Completed [facility] Zoster Vaccine Recombinant Unknown Completed [facility] Influenza Virus Vaccine Quad IM, Preserv and ABX Free 6 MO-64 YRS (FLUCELVAX) Unknown Completed [facility] Vital Signs Vital Name Observation Time Observation Value Comments S ource Systolic blood pressure 2023-06-14 21:40:00 139 mm[Hg] [facility] Diastolic blood pressure 2023-06-14 21:40:00 88 mm[Hg] [facility] Heart rate 2023-06-14 21:40:00 86 /min [facility] Respiratory rate 2023-06-14 21:40:00 18 /min [facility] Body height 2023-06-14 21:40:00 165.1 cm [facility] Body weight 2023-06-14 21:40:00 91.536 kg [facility] BMI 2023-06-14 21:40:00 33.58 kg/m2 [facility] Oxygen saturation in Arterial blood by Pulse oximetry 2023-06-14 21:40:00 96 /min [facility] Systolic blood pressure 2023-04-04 18:23:00 113 mm[Hg] [facility] Diastolic blood pressure 2023-04-04 18:23:00 73 mm[Hg] [facility] Heart rate 2023-04-04 18:23:00 81 /min [facility] Body temperature 2023-04-04 18:23:00 36.11 Ashlee [facility] Respiratory rate 2023-04-04 18:23:00 18 /min [facility] Body height 2023-04-04 18:23:00 165.1 cm [facility] Body weight 2023-04-04 18:23:00 91.627 kg [facility] BMI 2023-04-04 18:23:00 33.61 kg/m2 [facility] acute hospital Oxygen saturation in Arterial blood by Pulse oximetry 2023-04-04 18:23:00 97 /min r/a [facility] Systolic blood pressure 2023-01-09 21:06:00 111 mm[Hg] [facility] Diastolic blood pressure 2023-01-09 21:06:00 80 mm[Hg] [facility] Heart rate 2023-01-09 21:06:00 74 /min [facility] Body temperature 2023-01-09 21:06:00 36.78 Ashlee [facility] Respiratory rate 2023-01-09 21:06:00 18 /min [facility] Body height 2023-01-09 21:06:00 [facility] 2023-01-09 21:06:00 93.895 kg [facility] BMI 2023-01-09 21:06:00 34.45 kg/m2 [facility] pressure 2022-12-20 17:43:00 112 mm[Hg] [facility] Diastolic blood pressure 2022-12-20 17:43:00 77 mm[Hg] [facility] Heart rate 2022-12-20 17:43:00 84 /min [facility] temperature 2022-12-20 17:43:00 36.56 Ashlee [facility] Respiratory rate 2022-12-20 17:43:00 17 /min [facility] Body height 2022-12-20 17:43:00 165.1 cm [facility] Body weight 2022-12-20 17:43:00 91.627 kg [facility] BMI 2022-12-20 17:43:00 33.61 kg/m2 [facility] Oxygen saturation in Arterial blood by Pulse oximetry 2022-12-20 17:43:00 99 /min room air [facility] Systolic blood pressure 2022-12-08 14:47:00 100 mm[Hg] [facility] Diastolic blood pressure 2022-12-08 14:47:00 68 mm[Hg] [facility] Heart rate 2022-12-08 14:47:00 82 /min [facility] Body temperature 2022-12-08 14:47:00 36.56 Ashlee [facility] Respiratory rate 2022-12-08 14:47:00 16 /min [facility] Body height 2022-12-08 14:47:00 165.1 cm [facility] 2022-12-08 14:47:00 95.029 kg [facility] BMI 2022-12-08 14:47:00 34.86 kg/m2 [facility] Oxygen saturation in Arterial blood by Pulse oximetry 2022-12-08 14:47:00 96 /min [facility] Systolic blood pressure 2022-10-13 20:13:00 117 mm[Hg] [facility] Diastolic blood pressure 2022-10-13 20:13:00 72 mm[Hg] [facility] Heart rate 2022-10-13 20:13:00 97 /min [facility] Body temperature 2022-10-13 20:13:00 37.11 Ashlee [facility] Body height 2022-10-13 20:13:00 165.1 cm [facility] Body weight 2022-10-13 20:13:00 94.348 kg [facility] BMI 2022-10-13 20:13:00 34.61 kg/m2 [facility] Oxygen saturation in Arterial blood by Pulse oximetry 2022-10-13 20:13:00 96 /min [facility] Systolic blood pressure 2022-10-07 18:04:00 127 mm[Hg] [facility] Diastolic blood pressure 2022-10-07 18:04:00 82 mm[Hg] [facility] Heart rate 2022-10-07 18:04:00 85 /min [facility] Body temperature 2022-10-07 18:04:00 36.33 Ashlee [facility] Respiratory rate 2022-10-07 18:04:00 16 /min [facility] Body height 2022-10-07 18:04:00 165.1 cm [facility] Body weight 2022-10-07 18:04:00 94.756 kg [facility] BMI 2022-10-07 18:04:00 34.76 kg/m2 [facility] Oxygen saturation in Arterial blood by Pulse oximetry 2022-10-07 18:04:00 98 /min [facility] Systolic blood pressure 2022-10-05 18:34:00 103 mm[Hg] [facility] Diastolic blood pressure 2022-10-05 18:34:00 71 mm[Hg] [facility] Heart rate 2022-10-05 18:34:00 70 /min [facility] Body temperature 2022-10-05 18:34:00 36.67 Ashlee [facility] Respiratory rate 2022-10-05 18:34:00 18 /min [facility] Body height 2022-10-05 18:34:00 165.1 cm [facility] Body weight 2022-10-05 18:34:00 93.441 kg [facility] BMI 2022-10-05 18:34:00 34.28 kg/m2 [facility] Systolic blood pressure 2022-07-20 15:10:00 124 mm[Hg] [facility] Diastolic blood pressure 2022-07-20 15:10:00 80 mm[Hg] [facility] Heart rate 2022-07-20 15:10:00 60 /min [facility] Body temperature 2022-07-20 15:10:00 36.72 Ashlee [facility] Body height 2022-07-20 15:10:00 165.1 cm [facility] Body weight 2022-07-20 15:10:00 95.255 kg [facility] BMI 2022-07-20 15:10:00 34.95 kg/m2 [facility] acute hospital Oxygen saturation in Arterial blood by Pulse oximetry 2022-07-20 15:10:00 96 /min [facility] Systolic blood pressure 2022-06-14 19:23:00 126 mm[Hg] [facility] Diastolic blood pressure 2022-06-14 19:23:00 78 mm[Hg] [facility] Heart rate 2022-06-14 19:23:00 68 /min [facility] Body temperature 2022-06-14 19:23:00 36.72 Ashlee [facility] Respiratory rate 2022-06-14 19:23:00 18 /min [facility] Body height 2022-06-14 19:23:00 165.1 cm [facility] Body weight 2022-06-14 19:23:00 94.892 kg [facility] BMI 2022-06-14 19:23:00 34.81 kg/m2 [facility] acute [facility] Height/Length Measured 2021-08-05 08:48:40 165 cm Weight Dosing 2021-08-05 08:48:40 89.3 kg Weight Dosing 2021-08-05 08:48:12 89.3 kg Height/Length Measured 2021-08-05 08:48:12 165 cm Height/Length Measured 2020-05-28 12:53:26 Weight Dosing 2020-05-28 12:53:26 Procedures Procedure Date / Time Performed Performing Clinician Source XR CHEST 2 VW 2023-06-14 22:45:07 Janel Snow [facility] FLU VACC ([id number]), 6 MO-64 YRS, .5ML, IM, QUAD (FLUCELVAX) 2023-06-14 22:11:49 Janel Snow [facility] EXTERNAL PROVIDER RECORDS 2023-05-30 06:01:00 Do ctor Unassigned, [place] [facility] CONSENT/REFUSAL FOR DIAGNOSIS AND TREATMENT 2023-04-04 18:16:34 Doctor Unassigned, [place] [facility] INSURANCE CORRESPONDENCE 2023-02-28 05:01:00 Doc tor Unassigned, [place] [facility] XR HIPS 2 VW RIGHT 2023-01-09 20:44:00 Franko Thakur [facility] REFERRAL- REQUEST/RESPONSE 2022-12-16 05:01:00 Doctor Unassigned, [place] [facility] REFERRAL- REQUEST/RESPONSE 2022-11-14 05:01:00 Doctor Unassigned, [place] [facility] DEXA AXIAL (HIP AND SPINE) 2022-10-24 19:39:07 Manisha Norris [facility] ASSIGNMENT OF BENEFITS 2022-10-24 19:04:26 Docto r Unassigned, [place] [facility] POCT MOLECULAR FLU 2022-10-13 20:23:00 Babita Saldana [facility] POCT MOLECULAR STREP 2022-10-13 20:11:00 Kya Saldana [facility] PATIENT FINANCIAL POLICY 2022-10-05 17:55:40 Doctor Unassigned, [place] [facility] REFERRAL- REQUEST/RESPONSE 2022-09-23 06:01:00 Doctor Unassigned, [place] [facility] EXTERNAL PROVIDER RECORDS 2022-08-30 06:01:00 Do ctor Unassigned, [place] [facility] REFERRAL- REQUEST/RESPONSE 2022-07-07 06:01:00 Doctor Unassigned, [place] [facility] EXTERNAL PROVIDER RECORDS 2022-06-23 06:01:00 Do ctor Unassigned, [place] [facility] REFERRAL- REQUEST/RESPONSE 2022-06-02 06:01:00 Doctor Unassigned, [place] [facility] REFERRAL- REQUEST/RESPONSE 2022-05-11 05:01:00 Doctor Unassigned, [place] [facility] DME/SUPPLY JUSTIFICATION 2022-04-28 05:01:00 Doc felipa Unassigned, [place] [facility] PHYSICIAN ORDERS 2022-04-12 05:01:00 Doctor Unas signed, [place] [facility] FLU VACC (), 6 MO-64 YRS, .5ML, IM, QUAD (FLUCELVAX) 2022-04-08 19:25:44 Manisha Norris [facility] SARS-COV-2 COVID-19 VACCINE 18 YRS+, BIVALENT 0.5ML, IM (MODERNA BOOSTER) 2022-04-08 19:25:44 Manisha Norris [facility] INSURANCE CORRESPONDENCE 2022-04-04 05:01:00 Doc felipa Unassigned, [place] [facility] HOME HEALTH - OTHER 2022-03-24 05:01:00 Doctor Donna krausesigned, [place] [facility] INSURANCE CORRESPONDENCE 2022-03-08 05:01:00 Doc felipa Unassigned, [place] [facility] Encounters Start Date/Time End Date/Time Encounter Type Admission Type Attending Clinicians Care Facility Care Department Encounter ID Source 2022-12-19 08:36:01 Outpatient Franko Thakur [facility] [id number] [facility] 2022-11-29 07:06:00 Outpatient Franko Thakur [facility] [id number] [facility] 2022-05-23 11:12:01 Outpatient Franko Thakur [facility] [id number] [facility] 2020-05-28 14:35:00 Inpatient 3 Corwin Claros, [place] [facility] [id number] [facility] 2024-06-06 15:40:00 2024-06-06 15:40:00 Outpatient JANEL CARLOS [facility] [id number] [facility] 2023-10-10 14:00:00 2023-10-10 14:00:00 Outpatient R RUBY-ALEX S, RIVKA BELTRAN-ALEX S, RIVKA [facility] [id number] [facility] 2023-10-06 13:15:00 2023-10-06 13:15:00 Outpatient MANISHA ALONZO LAURA [facility] [id number] [facility] 2023-07-28 11:30:00 2023-07-28 11:30:00 Outpatient Tere Calderon, RIVKA BELTRAN-ALEX S, RIVKA [facility] [id number] [facility] 2023-07-14 00:00:00 2023-07-14 00:00:00 Outpatient Amanda Cervantes [facility] [id number] 29 [facility] 2023-07-06 00:00:00 2023-07-06 00:00:00 Patient Secure Manisha Pathak [facility] [id number] [facility] 2023-07-04 00:00:00 2023-07-04 00:00:00 Patient Secure Manisha Pathak [facility] [id number] [facility] 2023-07-04 00:00:00 2023-07-04 00:00:00 Manisha Wisdom [facility] [id number] [facility] 2023-06-14 16:28:25 2023-06-14 23:59:00 Hospital Encounter Janel [facility] [id number] [facility] 2023-06-14 15:40:00 2023-06-14 16:19:45 Outpatient R JANEL SNOW [facility] [id number] [facility] 2023-06-14 15:40:00 2023-06-14 16:19:45 Office Visit Janel Snow [facility] [id number] [id number] [facility] 2023-06-12 13:30:00 2023-06-12 13:30:00 Outpatient R FRANKO THAKUR [facility] [id number] [facility] 2023-05-30 00:00:00 2023-05-30 00:00:00 Orders Only Doctor Unassigned, [place] [facility] [id number] [facility] 2023-05-27 00:00:00 2023-05-27 00:00:00 Patient Secure Manisha Norris [facility] [id number] [id number] [id number] [id number] [facility] 2023-05-22 00:00:00 2023-05-22 00:00:00 Patient Secure Manisha Pathak [facility] [id number] [id number] [facility] 2023-05-21 00:00:00 2023-05-21 00:00:00 Patient Secure Manisha Pathak [facility] PRIMARY CARE PAVILLION 1.2.840.114 350.1.13.10 4.2.7.2.686 [id number] 086 [id number] [facility] 2023-05-03 00:00:00 2023-05-03 00:00:00 Outpatient R JANEL SNOW [facility] [id number] [facility] 2023-05-01 00:00:00 2023-05-01 00:00:00 David Rogers [facility] PRIMARY CARE PAVILLION 1.2.840.114 350.1.13.10 4.2.7.2.686 [id number] 086 [id number] [facility] 2023-05-01 00:00:00 2023-05-01 00:00:00 Patient Secure Manisha Pathak [facility] PRIMARY CARE PAVILLION 1.2840.114 350.1.13.10 4.2.7.2.686 [id number] 086 [id number] [facility] 2023-04-13 00:00:00 2023-04-13 00:00:00 Telephone Janel Snow [facility] 1.2840.114 350.1.13.10 4.2.7.2.686 [id number] 044 [id number] [facility] 2023-04-10 00:00:00 2023-04-10 00:00:00 Telephone Janel Snow [facility] 1.2840.114 350.1.13.10 4.2.7.2.686 [id number] 044 [id number] [facility] 2023-04-04 14:15:00 2023-04-04 14:30:00 Vpk Teacher Visit Pcp-Manisha Shields [facility] PRIMARY CARE PAVILLION 1.2.840.114 350.1.13.10 4.2.7.2.686 [id number] 366 [id number] [facility] 2023-04-04 14:15:00 2023-04-04 14:15:00 Outpatient R MANISHA NORRIS LAURA [facility] [id number] [facility] 2023-04-04 13:45:00 2023-04-04 14:06:20 Office Visit Manisha Norris [facility] PRIMARY CARE PAVILLION 1.2840.114 350.1.13.10 4.2.7.2.686 [id number] 086 [id number] [facility] 2023-04-04 00:00:00 2023-04-04 00:00:00 Orders Only Doctor Unassigned, [facility] 1.2.840.114 350.1.13.10 4.2.7.2.686 [id number] [id number] [facility] 2023-04-04 00:00:00 2023-04-04 00:00:00 Patient Secure Msg Manisha Norris [facility] PRIMARY CARE PAVILLION 1.2.840.114 350.1.13.10 4.2.7.2.686 [id number] 086 [id number] [facility] 2023-03-23 00:00:00 2023-03-23 00:00:00 Refill Manisha Norris [facility] PRIMARY CARE PAVILLION 1.2.840.114 350.1.13.10 4.2.7.2.686 [id number] 086 [id number] [facility] 2023-03-23 00:00:00 2023-03-23 00:00:00 Manisha Wisdom [facility] PRIMARY CARE PAVILLION 1.0.114 350.1.13.10 4.2.7.2.686 [id number] 086 [id number] [facility] 2023-03-21 00:00:00 2023-03-21 00:00:00 Telephone Janel Snow [facility] 1..114 350.1.13.10 4.2.7.2.686 [id number] 044 [id number] [facility] 2023-02-28 00:00:00 2023-02-28 00:00:00 Orders Only Doctor Unassigned, [facility] 1.840.114 350.1.13.10 4.2.7.2.686 [id number] [id number] [facility] 2023-01-18 13:00:00 2023-01-18 13:00:00 Outpatient FRANKO SMITH [facility] [id number] [facility] 2023-01-09 15:06:46 2023-01-09 23:59:00 Outpatient FRANKO SMITH [facility] [id number] [facility] 2023-01-09 15:00:00 2023-01-09 23:59:00 Hospital Encounter Franko Thakur [facility] 1..114 350.1.13.10 4.2.7.2.686 [id number] [facility] 2023-01-09 16:00:00 2023-01-09 16:26:29 Office Visit Rivka Solo [facility] PROFESS[facility] NAL BUILDING 1.0.114 350.1.13.10 4.2.7.2.686 [id number] 134 [id number] [facility] 2023-01-04 00:00:00 2023-01-04 00:00:00 Telephone Janel Snow [facility] 1.840.114 350.1.13.10 4.2.7.2.686 [id number] 044 [id number] [facility] 2023-01-03 11:15:00 2023-01-03 11:15:00 Outpatient R JANEL SNWO [facility] [id number] [facility] 2022-12-30 00:00:00 2022-12-30 00:00:00 Telephone Janel Snow Bonny [facility] MEDICAL OFFICE BUILDING 1.840.114 350.1.13.10 4.2.7.2.686 [id number] 044 [id number] [facility] 2022-12-20 13:15:00 2022-12-20 13:45:00 Office Visit Manisha Norris [facility] PRIMARY CARE PAVILLION 1.0.114 350.1.13.10 4.2.7.2.686 [id number] 086 [id number] [facility] 2022-12-20 13:15:00 2022-12-20 13:15:00 Outpatient R MANISHA NORRIS [facility] [id number] [facility] 2022-12-20 00:00:00 2022-12-20 00:00:00 Telephone Janel Snow Bonny [facility] MEDICAL OFFICE BUILDING 1.840.114 350.1.13.10 4.2.7.2.686 [id number] 044 [id number] [facility] 2022-12-16 00:00:00 2022-12-16 00:00:00 Orders Only Doctor Unassigned, [facility] 1.840.114 350.1.13.10 4.2.7.2.686 [id number] 009 [id number] [facility] 2022-12-14 12:48:38 2022-12-14 23:59:00 Hospital Encounter Rosales Chiu [facility] 1.2840.114 350.1.13.10 4.2.7.2.686 [id number] [id number] [facility] 2022-12-14 12:48:14 2022-12-14 23:59:00 Outpatient R ARAM [facility] [id number] [facility] 2022-12-14 12:48:14 2022-12-14 23:59:00 Hospital Encounter Rosales Chiu [facility] 1.2840.114 350.1.13.10 4.2.7.2.686 [id number] [facility] 2022-12-08 10:45:00 2022-12-08 11:00:00 Vpk Teacher Visit Lab, Guilherme - Janel Ng [facility] BUILD[facility] 1..114 350.1.13.10 4.2.7.2.686 [id number] [facility] 2022-12-08 09:40:00 2022-12-08 10:34:05 Outpatient R JANEL SNOW [facility] [id number] [facility] 2022-12-08 09:40:00 2022-12-08 10:34:05 Office Visit Janel Snow [facility] BU[facility] 1.2.114 350.1.13.10 4.2.7.2.686 [id number] 044 [id number] [facility] 2022-11-30 00:00:00 2022-11-30 00:00:00 Manisha Wisdom [facility] PRIMARY CARE PAVILLION 1.2840.114 350.1.13.10 4.2.7.2.686 [id number] 086 [id number] [facility] 2022-11-21 00:00:00 2022-11-21 00:00:00 Refill Manisha Norris [facility] PRIMARY CARE PAVILLION 1.20.114 350.1.13.10 4.2.7.2.686 [id number] 086 [id number] [facility] 2022-11-15 00:00:00 2022-11-15 00:00:00 Telephone SaulUmberto [facility] 1.20.114 350.1.13.10 4.2.7.2.686 [id number] [facility] 2022-11-14 00:00:00 2022-11-14 00:00:00 Orders Only Doctor Unassigned, [facility] 1.20.114 350.1.13.10 4.2.7.2.686 [id number] [id number] [facility] 2022-10-24 14:05:22 2022-10-24 23:59:00 Outpatient MANISHA ALONZO [facility] [id number] [facility] 2022-10-24 14:05:22 2022-10-24 23:59:00 Hospital Encounter Manisah Norris [facility] 1.0.114 350.1.13.10 4.2.7.2.686 [id number] [facility] 2022-10-24 00:00:00 2022-10-24 00:00:00 Orders Only Doctor Unassigned, [facility] 1.20.114 350.1.13.10 4.2.7.2.686 [id number] 009 [id number] [facility] 2022-10-13 15:00:00 2022-10-13 15:44:45 Outpatient BABITA JULIEN CHRISTINE [facility] [id number] [facility] 2022-10-13 15:00:00 2022-10-13 15:44:45 [facility] 1.2.840.114 350.1.13.10 4.2.7.2.686 [id number] 044 [id number] [facility] 2022-10-13 00:00:00 2022-10-13 00:00:00 Telephone Aram [facility] NAL BUILDING 1.2.840.114 350.1.13.10 4.2.7.2.686 [id number] 134 [id number] [facility] 2022-10-12 00:00:00 2022-10-12 00:00:00 Telephone Aram [facility] BUILDING 1.2.840.114 350.1.13.10 4.2.7.2.686 [id number] 134 [id number] [facility] 2022-10-11 00:00:00 2022-10-11 00:00:00 Refill Manisha Norris [facility] PRIMARY CARE PAVILLION 1.2.840.114 350.1.13.10 4.2.7.2.686 [id number] 086 [id number] [facility] 2022-10-07 14:15:00 2022-10-07 14:30:00 Vpk Teacher Visit Pcp-Lab Manisha Norris [facility] PRIMARY CARE PAVILLION 1.2.840.114 350.1.13.10 4.2.7.2.686 [id number] [facility] 2022-10-07 13:45:00 2022-10-07 13:56:24 Outpatient R MANISHA NORRIS [facility] [id number] [facility] 2022-10-07 13:45:00 2022-10-07 13:56:24 Office Visit Manisha Norris [facility] PRIMARY CARE PAVILLION 1.2.840.114 350.1.13.10 4.2.7.2.686 [id number] 086 [id number] [facility] 2022-10-07 00:00:00 2022-10-07 00:00:00 Telephone Aram Rosales [facility] 1.840.114 350.1.13.10 4.2.7.2.686 [id number] 134 [id number] [facility] 2022-10-05 13:30:00 2022-10-05 14:14:44 Outpatient R ARAM [facility] [id number] [facility] 2022-10-05 13:30:00 2022-10-05 14:14:44 Office Visit Aram [facility] 1.840.114 350.1.13.10 4.2.7.2.686 [id number] 134 [id number] [facility] 2022-10-05 00:00:00 2022-10-05 00:00:00 Orders Only Doctor Unassigned, [facility] 1.2840.114 350.1.13.10 4.2.7.2.686 [id number] 009 [id number] [facility] 2022-10-03 15:00:00 2022-10-03 15:00:00 Outpatient R LICO WHITE YU [facility] [id number] [facility] 2022-09-23 00:00:00 2022-09-23 00:00:00 Orders Only Doctor Unassigned, [facility] 1.840.114 350.1.13.10 4.2.7.2.686 [id number] 009 [id number] [facility] 2022-09-15 00:00:00 2022-09-15 00:00:00 Patient Secure Franko Mcrae [facility] 1.2840.114 350.1.13.10 4.2.7.2.686 [id number] 044 [id number] [facility] 2022-09-13 00:00:00 2022-09-13 00:00:00 Patient Secure Msg Franko Thakur [facility] 1.2840.114 350.1.13.10 4.2.7.2.686 [id number] 044 [id number] [facility] 2022-09-12 00:00:00 2022-09-12 00:00:00 Patient Secure g Franko Thakur [facility] 1..114 350.1.13.10 4.2.7.2.686 [id number] 044 [id number] [facility] 2022-09-06 00:00:00 2022-09-06 00:00:00 Telephone Saúl [facility] 1.84.114 350.1.13.10 4.2.7.2.686 [id number] 044 [id number] [facility] 2022-09-06 00:00:00 2022-09-06 00:00:00 Patient Secure g Saúl [facility] 1.2840.114 350.1.13.10 4.2.7.2.686 [id number] 044 [id number] [facility] 2022-08-31 14:30:00 2022-08-31 14:30:00 Outpatient ROSALES GUZMAN [facility] [id number] [facility] 2022-08-30 00:00:00 2022-08-30 00:00:00 Orders Only Doctor Unassigned, [facility] 1.2840.114 350.1.13.10 4.2.7.2.686 [id number] 009 [id number] [facility] 2022-08-24 00:00:00 2022-08-24 00:00:00 Manisha Wisdom [facility] PRIMARY CARE PAVILLION 1.2840.114 350.1.13.10 4.2.7.2.686 [id number] 086 [id number] [facility] 2022-07-20 09:30:00 2022-07-20 09:45:00 Office Visit Franko Thakur [facility] OFF[facility] BUILDING 1.84.114 350.1.13.10 4.2.7.2.686 [id number] 044 [id number] [facility] 2022-07-20 09:30:00 2022-07-20 09:30:50 Outpatient R FRANKO THAKUR [facility] [id number] [facility] 2022-07-07 00:00:00 2022-07-07 00:00:00 Orders Only Doctor Unassigned, [facility] 1..114 350.1.13.10 4.2.7.2.686 [id number] 009 [id number] [facility] 2022-06-30 00:00:00 2022-06-30 00:00:00 Telephone Umberto Saul [facility] MEDICAL OFFICE BUILDING 1.84.114 350.1.13.10 4.2.7.2.686 [id number] 198 [id number] [facility] 2022-06-27 00:00:00 2022-06-27 00:00:00 [facility] 1.284.114 350.1.13.10 4.2.7.2.686 [id number] 198 [id number] [facility] 2022-06-24 00:00:00 2022-06-24 00:00:00 Telephone Umebrto Saul [facility] 1..840.114 350.1.13.10 4.2.7.2.686 [id number] 044 [id number] [facility] 2022-06-23 00:00:00 2022-06-23 00:00:00 Orders Only Doctor Unassigned, [facility] 1.2.840.114 350.1.13.10 4.2.7.2.686 [id number] 009 [id number] [facility] 2022-06-21 00:00:00 2022-06-21 00:00:00 Patient Secure Msg Doctor Unassigned, [facility] 1.2.840.114 350.1.13.10 4.2.7.2.686 [id number] [facility] 2022-06-15 14:20:00 2022-06-15 14:20:00 Outpatient SUNIL TERESA [facility] [id number] [facility] 2022-06-14 16:15:00 2022-06-14 16:15:00 Office Visit Aram Rosales [facility] 1..840.114 350.1.13.10 4.2.7.2.686 [id number] 134 [id number] [facility] 2022-06-14 16:15:00 2022-06-14 13:57:54 Outpatient ROSALES GUZMAN [facility] [id number] [facility] 2022-06-14 00:00:00 2022-06-14 00:00:00 Telephone ZeusRosales hernandez [facility] BUILDING 1.2.840.114 350.1.13.10 4.2.7.2.686 [id number] [facility] 2022-06-02 00:00:00 2022-06-02 00:00:00 Orders Only Doctor Unassigned, [facility] 1.2.840.114 350.1.13.10 4.2.7.2.686 [id number] 009 [id number] [facility] 2022-05-30 00:00:00 2022-05-30 00:00:00 Telephone Umberto Saul [facility] BUILD[facility] 1.2840.114 350.1.13.10 4.2.7.2.686 [id number] [facility] 2022-05-11 00:00:00 2022-05-11 00:00:00 Orders Only Doctor Unassigned, [facility] 1.2840.114 350.1.13.10 4.2.7.2.686 [id number] 009 [id number] [facility] 2022-05-03 00:00:00 2022-05-03 00:00:00 Telephone Umberto Saul [facility] BUILDING 1.2840.114 350.1.13.10 4.2.7.2.686 [id number] 198 [id number] [facility] 2022-04-28 00:00:00 2022-04-28 00:00:00 Orders Only Doctor Unassigned, [facility] 1.20.114 350.1.13.10 4.2.7.2.686 [id number] 009 [id number] [facility] 2022-04-26 00:00:00 2022-04-26 00:00:00 Telephone Leela Bonilla [facility] BUILDING 1.2840.114 350.1.13.10 4.2.7.2.686 [id number] 085 [id number] [facility] 2022-04-12 00:00:00 2022-04-12 00:00:00 Orders Only Doctor Unassigned, [facility] 1.2840.114 350.1.13.10 4.2.7.2.686 [id number] 009 [id number] [facility] 2022-04-11 00:00:00 2022-04-11 00:00:[address] Thakur [facility] BUILDING 1.2.840.114 350.1.13.10 4.2.7.2.686 [id number] 044 [id number] [facility] 2022-04-08 14:45:00 2022-04-08 15:00:00 Vpk Teacher Visit Pcp-Manisha Shields [facility] PRIMARY CARE PAVILLION 1.2.840.114 350.1.13.10 4.2.7.2.686 [id number] [facility] 2022-04-08 13:45:00 2022-04-08 14:35:25 Outpatient MANISHA ALONZO [facility] [id number] [facility] 2022-04-08 13:45:00 2022-04-08 14:35:25 Office Visit Manisha Norris [facility] PRIMARY CARE PAVILLION 1.2.840.114 350.1.13.10 4.2.7.2.686 [id number] 086 [id number] [facility] 2022-04-08 13:45:00 2022-04-08 13:45:00 Outpatient MANISHA ALONZO [facility] [id number] [facility] 2022-04-08 13:45:00 2022-04-08 13:45:00 Outpatient MANISHA ALONZO [facility] [id number] [facility] 2022-04-08 13:45:00 2022-04-08 13:45:00 Outpatient MANISHA ALONZO [facility] [id number] [facility] 2022-04-08 13:45:00 2022-04-08 13:45:00 Outpatient MANISHA ALONZO [facility] [id number] [facility] 2022-04-08 13:45:00 2022-04-08 13:45:00 Outpatient MANISHA ALONZO [facility] [id number] [facility] 2022-04-04 00:00:00 2022-04-04 00:00:00 Orders Only Doctor Unassigned, [facility] 1.2840.114 350.1.13.10 4.2.7.2.686 [id number] 009 [id number] [facility] 2022-03-28 00:00:00 2022-03-28 00:00:00 Telephone Umberto Saul [facility] MEDICAL OFFICE BUILDING 1..114 350.1.13.10 4.2.7.2.686 [id number] 198 [id number] [facility] 2022-03-25 00:00:00 2022-03-25 00:00:00 RefGuerita Houser [facility] MEDICAL OFFICE BUILDING 1.0.114 350.1.13.10 4.2.7.2.686 [id number] [facility] 2022-03-24 00:00:00 2022-03-24 00:00:00 Orders Only Doctor Unassigned, [facility] 1.0.114 350.1.13.10 4.2.7.2.686 [id number] 009 [id number] [facility] 2022-03-22 00:00:00 2022-03-22 00:00:00 Patient Secure Rosales Gonzalez [facility] BUILDING 1..114 350.1.13.10 4.2.7.2.686 [id number] [facility] 2022-03-18 00:00:00 2022-03-18 00:00:00 Patient Secure Manisha Pathak [facility] PRIMARY CARE PAVILLION 1..114 350.1.13.10 4.2.7.2.686 [id number] 086 [id number] [facility] 2022-03-17 13:00:00 2022-03-17 13:15:00 Office Visit Dixie Alanis [facility] 1..840.114 350.1.13.10 4.2.7.2.686 [id number] 198 [id number] [facility] 2022-03-17 13:00:00 2022-03-17 13:00:00 Outpatient [facility] [id number] [facility] 2022-03-15 00:00:00 2022-03-15 00:00:00 Outpatient Tere CHIU ROSALES [facility] [id number] [facility] 2022-03-15 00:00:00 2022-03-15 00:00:00 Outpatient ROSALES GUZMAN [facility] [id number] [facility] 2022-03-15 00:00:00 2022-03-15 00:00:00 Outpatient Tere CH[facility] [id number] [facility] 2022-03-09 00:00:00 2022-03-09 00:00:00 Patient Secure Msg Annabelle [facility] MEDICAL OFFICE BUILDING 1..840.114 350.1.13.10 4.2.7.2.686 [id number] [facility] 2022-03-08 00:00:00 2022-03-08 00:00:00 Telephone Franko Thakur [facility] MEDICAL OFFICE BUILDING 1..840.114 350.1.13.10 4.2.7.2.686 [id number] 044 [id number] [facility] 2022-03-08 00:00:00 2022-03-08 00:00:00 Orders Only Doctor Unassigned, [facility] 1.2.840.114 350.1.13.10 4.2.7.2.686 [id number] [id number] [facility] 2022-03-07 00:00:00 2022-03-07 00:00:00 Orders Only Doctor Unassigned, [facility] 1.2.840.114 350.1.13.10 4.2.7.2.686 [id number] 009 [id number] [facility] 2022-03-04 00:00:00 2022-03-04 00:00:00 Patient Secure Msg Manisha Norris [facility] PRIMARY CARE PAVILLION 1.2.840.114 350.1.13.10 4.2.7.2.686 [id number] 086 [id number] [facility] 2022-03-04 00:00:00 2022-03-04 00:00:00 Orders Only Doctor Unassigned, [facility] 1.2.840.114 350.1.13.10 4.2.7.2.686 [id number] 009 [id number] [facility] 2022-03-03 00:00:00 2022-03-03 00:00:00 Patient Secure Msg Doctor Unassigned, [facility] 1.2.840.114 350.1.13.10 4.2.7.2.686 [id number] 019 [id number] [facility] 2022-02-28 00:00:00 2022-02-28 00:00:00 Dixie Yanez [facility] 1.2840.114 350.1.13.10 4.2.7.2.686 [id number] [facility] 2022-02-25 09:05:00 2022-02-25 23:59:00 Outpatient DIXIE BENSON [facility] [id number] [facility] 2022-02-25 09:05:00 2022-02-25 23:59:00 Outpatient DIXIE BENSON [facility] [id number] [facility] 2022-02-25 09:30:00 2022-02-25 09:45:00 Office Visit Dixie Alanis Yumiko [facility] 1.2.840.114 350.1.13.10 4.2.7.2.686 [id number] [facility] 2022-02-25 09:30:00 2022-02-25 09:30:00 Outpatient Tere ALANIS DIXIE [facility] [id number] [facility] 2022-02-24 00:00:00 2022-02-24 00:00:00 Telephone SaulUmberto [facility] 1.2.840.114 350.1.13.10 4.2.7.2.686 [id number] [facility] 2022-02-20 00:00:00 2022-02-20 00:00:00 RefFranko Liang [facility] 1.2.840.114 350.1.13.10 4.2.7.2.686 [id number] [facility] 2022-02-15 00:00:00 2022-02-15 00:00:00 Orders Only Doctor Unassigned, [facility] 1.2.840.114 350.1.13.10 4.2.7.2.686 [id number] [facility] 2022-02-14 14:40:00 2022-02-14 23:59:00 Outpatient Tere ALANIS DIXIE [facility] [id number] [facility] 2022-02-14 14:40:00 2022-02-14 23:59:00 Outpatient Tere ALANIS DIXIE [facility] [id number] [facility] 2022-02-14 14:40:00 2022-02-14 23:59:00 [facility] [id number] 2022-02-14 14:00:00 2022-02-14 15:49:45 Outpatient Tere ANNABELLE DIXIE [facility] [id number] [facility] 2022-02-14 14:00:00 2022-02-14 15:49:45 Office Visit Umberto Salu [facility] 1.2840.114 350.1.13.10 4.2.7.2.686 [id number] [facility] 2022-02-14 00:00:00 2022-02-14 00:00:00 Orders Only Doctor Unassigned, [facility] 1.840.114 350.1.13.10 4.2.7.2.686 [id number] [facility] 2022-02-11 00:00:00 2022-02-11 00:00:00 Orders Only Doctor Unassigned, [facility] 1.2840.114 350.1.13.10 4.2.7.2.686 [id number] [facility] 2022-02-09 00:00:00 2022-02-09 00:00:00 Telephone Franko Thakur [facility] 1.840.114 350.1.13.10 4.2.7.2.686 [id number] [facility] 2022-02-08 00:00:00 2022-02-08 00:00:00 Telephone Franko Thakur [facility] 1.840.114 350.1.13.10 4.2.7.2.686 [id number] [facility] 2022-02-08 00:00:00 2022-02-08 00:00:00 Telephone Umberto Saul [facility] 1..840.114 350.1.13.10 4.2.7.2.686 [id number] [facility] 2022-02-07 13:30:00 2022-02-07 13:30:00 Outpatient DIXIE BENSON [facility] [id number] [facility] 2022-02-07 13:30:00 2022-02-07 13:30:00 Outpatient Tere ALANIS DIXIE [facility] [id number] [facility] 2022-02-07 13:30:00 2022-02-07 13:30:00 Outpatient DIXIE BENSON [facility] [id number] [facility] 2022-02-07 13:30:00 2022-02-07 13:30:00 Outpatient DIXIE BENSON [facility] [id number] [facility] 2022-02-07 13:30:00 2022-02-07 13:30:00 Outpatient DIXIE BENSON [facility] [id number] [facility] 2022-02-07 00:00:00 2022-02-07 00:00:00 Franko Nguyễn [facility] [facility] MEDICAL OFFICE BUILDING 1..840.114 350.1.13.10 4.2.7.2.686 [id number] [facility] 2022-02-07 00:00:00 2022-02-07 00:00:00 Telephone Umberto Saul [facility] MED[facility] OFF[facility] BUILDING 1.2.840.114 350.1.13.10 4.2.7.2.686 [id number] [facility] 2022-02-06 00:00:00 2022-02-06 00:00:00 Orders Only Doctor Unassigned, [place] [facility] 1.2840.114 350.1.13.10 4.2.7.2.686 [id number] [facility] 2022-02-03 00:00:00 2022-02-03 00:00:00 Telephone Umberto Saul [facility] MEDICAL OFFICE BUILDING 1.2840.114 350.1.13.10 4.2.7.2.686 [id number] [facility] 2022-02-01 00:00:00 2022-02-01 00:00:00 Transition of Care Bandar Kasandrastephen JAY SHERYL HERNANDEZ 1.840.114 350.1.13.10 4.2.7.2.686 [id number] [facility] 2022-02-01 00:00:00 2022-02-01 00:00:00 Telephone Umberto Saul [facility] MEDICAL OFFICE BUILDING 1.2840.114 350.1.13.10 4.2.7.2.686 [id number] [facility] 2022-01-31 07:00:00 2022-01-31 20:05:00 Outpatient R UMBERTO SAUL [facility] SOR [id number] [facility] 2022-01-31 07:00:00 2022-01-31 20:05:00 Hospital Encounter Umberto Saul [facility] 1.840.114 350.1.13.10 4.2.7.2.686 [id number] [facility] 2022-01-31 07:00:00 2022-01-31 20:05:00 Outpatient R UMBERTO SAUL [facility] SOR [id number] [facility] 2022-01-31 07:00:00 2022-01-31 20:05:00 Outpatient R UMBERTO SAUL [facility] SOR [id number] [facility] 2022-01-31 07:00:00 2022-01-31 20:05:00 Outpatient R UMBERTO SAUL [facility] SOR [id number] [facility] 2022-01-31 07:00:00 2022-01-31 20:05:00 Outpatient R KG UMBERTO [facility] SOR [id number] [facility] 2022-01-31 09:34:00 2022-01-31 12:12:00 Anesthesia Event Dinh Phillips Fernando [facility] 1.2840.114 350.1.13.10 4.2.7.2.686 [id number] [facility] 2022-01-31 09:45:00 2022-01-31 12:11:00 Surgery Umberto Saul [facility] 1.2840.114 350.1.13.10 4.2.7.2.686 [id number] [facility] 2022-01-31 00:00:00 2022-01-31 00:00:00 Orders Only Doctor Unassigned, [place] 1.2.840.114 350.1.13.10 4.2.7.2.686 [id number] [facility] 2022-01-29 00:00:00 2022-01-29 00:00:00 Orders Only Doctor Unassigned, [place] 1.2.840.114 350.1.13.10 4.2.7.2.686 [id number] [facility] 2022-01-28 10:15:00 2022-01-28 10:30:00 Laboratory Only Only, Adc Test Saul, Umberto Thomas [facility] 1.2.840.114 350.1.13.10 4.2.7.2.686 [id number] [facility] 2022-01-28 10:15:00 2022-01-28 10:15:00 Outpatient R UMBERTO SAUL [facility] [id number] [facility] 2022-01-27 13:00:00 2022-01-27 16:30:58 Outpatient R UMBERTO SAUL [facility] [id number] [facility] 2022-01-27 13:00:00 2022-01-27 16:30:58 Outpatient R UMBERTO SAUL [facility] [id number] [facility] 2022-01-27 15:15:00 2022-01-27 15:30:00 Vpk Teacher Visit Mary, Adc Lab Main Umberto Saul [facility] 1.2.840.114 350.1.13.10 4.2.7.2.686 [id number] [facility] 2022-01-27 14:46:01 2022-01-27 14:48:00 Outpatient R UMBERTO SAUL [facility] [id number] [facility] 2022-01-27 14:00:00 2022-01-27 14:48:00 Hospital Encounter Umberto Saul [facility] 1.2.840.114 350.1.13.10 4.2.7.2.686 [id number] [facility] 2022-01-27 13:00:00 2022-01-27 13:45:00 Ancillary Visit Donna Lowry Umberto Saul [facility] 1..840.114 350.1.13.10 4.2.7.2.686 [id number] [facility] 2022-01-27 13:00:00 2022-01-27 13:00:00 Outpatient R UMBERTO SAUL [facility] [id number] [facility] 2022-01-27 00:00:00 2022-01-27 00:00:00 Orders Only Doctor Unassigned, [place] [facility] 1.2840.114 350.1.13.10 4.2.7.2.686 [id number] [facility] 2022-01-13 00:00:00 2022-01-13 00:00:00 Prep For Surgery Umberto Saul [facility] BUILD[facility] 1.2840.114 350.1.13.10 4.2.7.2.686 [id number] [facility] 2022-01-11 00:00:00 2022-01-11 00:00:00 Orders Only Doctor Unassigned, [place] [facility] 1.2840.114 350.1.13.10 4.2.7.2.686 [id number] [facility] 2022-01-07 00:00:00 2022-01-07 00:00:00 Patient Secure Buddy Zhang [facility] PROFESSIO NAL BUILDING 1..840.114 350.1.13.10 4.2.7.2.686 [id number] [facility] 2022-01-05 11:26:51 2022-01-05 23:59:00 Outpatient MANISHA ALONZO [facility] [id number] [facility] 2022-01-05 11:26:51 2022-01-05 23:59:00 Outpatient MANISHA ALONZO [facility] [id number] [facility] 2022-01-05 11:26:51 2022-01-05 23:59:00 Hospital Encounter Manisha Norris [facility] PRIMARY CARE PAVILLION 1.2840.114 350.1.13.10 4.2.7.2.686 [id number] [facility] 2022-01-05 11:26:51 2022-01-05 23:59:00 Outpatient MANISHA ALONZO [facility] [id number] [facility] 2022-01-05 11:26:51 2022-01-05 23:59:00 Outpatient MANISHA ALONZO [facility] [id number] [facility] 2022-01-05 11:15:00 2022-01-05 11:16:23 Outpatient MANISHA ALONZO [facility] [id number] [facility] 2022-01-05 11:15:00 2022-01-05 11:16:23 Office Visit Manisha Norris [facility] CARE [facility]AVILLION 1.840.114 350.1.13.10 4.2.7.2.686 [id number] [facility] 2022-01-05 11:15:00 2022-01-05 11:15:00 Outpatient MANISHA ALONZO [facility] [id number] [facility] 2022-01-03 14:00:00 2022-01-03 14:15:00 Office Visit Dixie Alanis [facility] MEDICAL OFFICE BUILDING 1.840.114 350.1.13.10 4.2.7.2.686 [id number] [facility] 2022-01-03 14:00:00 2022-01-03 14:00:00 Outpatient DIXIE BENSON [facility] [id number] [facility] 2021-12-31 00:00:00 2021-12-31 00:00:00 Telephone Umberto Saul [facility] BU[facility] 1.840.114 350.1.13.10 4.2.7.2.686 [id number] [facility] 2021-12-31 00:00:00 2021-12-31 00:00:00 Telephone Buddy Mujica [facility] 1..840.114 350.1.13.10 4.2.7.2.686 [id number] [facility] 2021-12-31 00:00:00 2021-12-31 00:00:00 Patient Secure Msg Doctor Unassigned, [place] [facility] MEDICAL OFFICE BUILDING 1.2.840.114 350.1.13.10 4.2.7.2.686 [id number] [facility] 2021-12-30 00:00:00 2021-12-30 00:00:00 Patient [facility] 1.2.840.114 350.1.13.10 4.2.7.2.686 [id number] [facility] 2021-12-30 00:00:00 2021-12-30 00:00:00 Patient Secure Msg Doctor Unassigned, [place] [facility] MEDICAL OFF[facility] BUILDING 1.2.840.114 350.1.13.10 4.2.7.2.686 [id number] [facility] 2021-12-29 15:49:46 2021-12-29 23:59:00 [facility] [id number] [facility] 2021-12-29 15:49:46 2021-12-29 23:59:00 Outpatient [facility] [id number] [facility] 2021-12-15 14:20:00 2021-12-15 14:20:00 Office Visit Guanako [facility] BUILDING 1.2.840.114 350.1.13.10 4.2.7.2.686 [id number] [facility] 2021-12-15 14:20:00 2021-12-15 14:17:40 Outpatient [facility] [id number] [facility] 2021-12-15 14:20:00 2021-12-15 14:17:40 Outpatient R BUDDY MUJICA [facility] [id number] [facility] 2021-12-07 10:15:00 2021-12-07 10:30:00 Office Visit Franko Thakur Edelizabeth [facility] BU[facility] 1.2840.114 350.1.13.10 4.2.7.2.686 [id number] [facility] 2021-12-07 10:15:00 2021-12-07 10:15:00 Outpatient R FRANKO THAKUR [facility] [id number] [facility] 2021-12-03 00:00:00 2021-12-03 00:00:00 Patient Secure Faith Lawson [facility] BUILDING 1.2840.114 350.1.13.10 4.2.7.2.686 [id number] [facility] 2021-12-03 00:00:00 2021-12-03 00:00:00 Orders Only Doctor Unassigned, [place] [facility] 1.2840.114 350.1.13.10 4.2.7.2.686 [id number] [facility] 2021-12-01 00:00:00 2021-12-01 00:00:00 Patient Secure Msg Aram Rosales [facility] BUILDING 1.2840.114 350.1.13.10 4.2.7.2.686 [id number] [facility] 2021-11-23 14:21:11 2021-11-23 23:59:00 Hospital Encounter Rosales Chiu [facility] 1.2840.114 350.1.13.10 4.2.7.2.686 [id number] [facility] 2021-11-23 00:00:00 2021-11-23 23:59:00 Outpatient ROSALES GUZMAN [facility] [id number] [facility] 2021-11-23 00:00:00 2021-11-23 23:59:00 [facility] [id number] 2021-11-23 14:00:00 2021-11-23 14:20:00 Hospital Encounter Rosales Chiu [facility] 1.0.114 350.1.13.10 4.2.7.2.686 [id number] [facility] 2021-11-23 00:00:00 2021-11-23 14:20:00 Outpatient Tere [facility] [id number] [facility] 2021-11-23 00:00:00 2021-11-23 14:20:00 Outpatient Tere [facility] [id number] [facility] 2021-11-23 00:00:00 2021-11-23 00:00:00 Orders Only Doctor Unassigned, [place] [facility] 1.0.114 350.1.13.10 4.2.7.2.686 [id number] [facility] 2021-11-22 00:00:00 2021-11-22 00:00:00 Patient Secure Msg Saúl [facility] MEDICAL OFFICE BUILDING 1.0.114 350.1.13.10 4.2.7.2.686 [id number] [facility] 2021-11-22 00:00:00 2021-11-22 00:00:00 Patient Secure Msg Saúl [facility] MEDICAL OFFICE BUILDING 1.0.114 350.1.13.10 4.2.7.2.686 [id number] [facility] 2021-11-16 00:00:00 2021-11-16 00:00:00 Patient Secure Msg Doctor Unassigned, [place] [facility] 1.2840.114 350.1.13.10 4.2.7.2.686 [id number] [facility] 2021-11-08 00:00:00 2021-11-08 00:00:00 Patient Secure Msg Doctor Unassigned, [place] [facility] MEDICAL OFFICE BUILDING 1.84.114 350.1.13.10 4.2.7.2.686 [id number] [facility] 2021-11-05 11:00:00 2021-11-05 11:00:00 Office Visit Umberto Saul [facility] MEDICAL OFFICE BUILDING 1.284.114 350.1.13.10 4.2.7.2.686 [id number] [facility] 2021-11-05 11:00:00 2021-11-05 09:10:39 Outpatient R UMBERTO SAUL [facility] [id number] [facility] 2021-11-05 11:00:00 2021-11-05 09:10:39 Outpatient UMBERTO LAGOS [facility] [id number] [facility] 2021-11-05 11:00:00 2021-11-05 09:10:39 Outpatient R UMBERTO SAUL [facility] [id number] [facility] 2021-11-05 11:00:00 2021-11-05 09:10:39 Outpatient R UMBERTO SAUL [facility] [id number] [facility] 2021-11-02 00:00:00 2021-11-02 00:00:00 Telephone Manisha Norris [facility] PRIMARY CARE PAVILLION 1.840.114 350.1.13.10 4.2.7.2.686 [id number] [facility] 2021-10-26 00:00:00 2021-10-26 00:00:00 Patient Secure Msg [facility] 1.840.114 350.1.13.10 4.2.7.2.686 [id number] [facility] 2021-10-25 00:00:00 2021-10-25 00:00:00 Refill Manisha Norris [facility] PRIMARY CARE PAVILLION 1.0.114 350.1.13.10 4.2.7.2.686 [id number] [facility] 2021-10-14 00:00:00 2021-10-14 00:00:00 Patient Secure Msg Doctor Unassigned, [place] [facility] 1.840.114 350.1.13.10 4.2.7.2.686 [id number] [facility] 2021-10-08 00:00:00 2021-10-08 00:00:00 Patient Secure Msg Saúl [facility] 1..114 350.1.13.10 4.2.7.2.686 [id number] 044 [id number] [facility] 2021-10-07 00:00:00 2021-10-07 00:00:00 Telephone Manisha Norris [facility] 1.0.114 350.1.13.10 4.2.7.2.686 [id number] [facility] 2021-10-07 00:00:00 2021-10-07 00:00:00 Telephone Franko Thakur [facility] MEDICAL OFFICE BUILDING 1..114 350.1.13.10 4.2.7.2.686 [id number] [facility] 2021-10-05 12:04:52 2021-10-05 23:59:00 Outpatient MANISHA ALONZO [facility] [id number] [facility] 2021-10-05 12:04:52 2021-10-05 23:59:00 Hospital Encounter Manisha Norris [facility]ARE [place] 1..840.114 350.1.13.10 4.2.7.2.686 [id number] [facility] 2021-10-05 12:04:52 2021-10-05 23:59:00 Outpatient MANISHA ALONZO [facility] [id number] [facility] 2021-10-05 12:04:52 2021-10-05 23:59:00 Outpatient MANISHA ALONZO [facility] [id number] [facility] 2021-10-05 12:04:52 2021-10-05 23:59:00 Outpatient MANISHA ALONZO [facility] [id number] [facility] 2021-10-05 12:15:00 2021-10-05 12:30:00 Vpk Teacher Visit Pcp-Manisha Shields [facility] PRIMARY CARE [place] 1..840.114 350.1.13.10 4.2.7.2.686 [id number] [facility] 2021-10-05 12:15:00 2021-10-05 12:15:00 Outpatient MANISHA ALONZO [facility] [id number] [facility] 2021-10-05 11:15:00 2021-10-05 11:50:24 Office Visit Manisha Norris [facility] CARE [place] 1.2.840.114 350.1.13.10 4.2.7.2.686 [id number] [facility] 2021-10-04 00:00:00 2021-10-04 00:00:00 Refill Manisha Norris [facility] PRIMARY CARE PAVILLION 1.2.840.114 350.1.13.10 4.2.7.2.686 [id number] [facility] 2021-08-31 00:00:00 2021-08-31 00:00:00 Patient [facility] 1.2.840.114 350.1.13.10 4.2.7.2.686 [id number] [facility] 2021-08-30 00:00:00 2021-08-30 00:00:00 Telephone Gavin [facility] BUILDING 1.2.840.114 350.1.13.10 4.2.7.2.686 [id number] [facility] 2021-08-24 11:30:00 2021-08-24 12:16:13 Office Visit Gavin [facility] BUILD[facility] 1.2.840.114 350.1.13.10 4.2.7.2.686 [id number] [facility] 2021-08-24 11:30:00 2021-08-24 12:16:13 Outpatient R GAVIN [facility] [id number] [facility] 2021-08-24 11:30:00 2021-08-24 11:30:00 Outpatient R GAVIN [facility] [id number] [facility] 2021-08-24 00:00:00 2021-08-24 00:00:00 Refill Manisha Norris [facility] PRIMARY CARE PAVILLION 1.2.840.114 350.1.13.10 4.2.7.2.686 [id number] [facility] 2021-08-13 00:00:00 2021-08-13 00:00:00 Refill Alonso, [facility] PROFESSIO [facility] BUILDING 1.2.840.114 350.1.13.10 4.2.7.2.686 [id number] [facility] 2021-07-28 10:40:00 2021-07-28 11:00:00 Office Visit Leela Bonilla [facility] BUILDING 1.2.840.114 350.1.13.10 4.2.7.2.686 [id number] [facility] 2021-07-28 10:40:00 2021-07-28 10:40:00 Outpatient R ALICIA BONILLANEBehzad [facility] [id number] [facility] 2021-07-28 10:40:00 2021-07-28 10:40:00 Outpatient R LEELA [facility] [id number] [facility] 2021-07-28 00:00:00 2021-07-28 00:00:00 Orders Only Doctor Unassigned, [place] [facility] 1.840.114 350.1.13.10 4.2.7.2.686 [id number] [facility] 2021-07-27 00:00:00 2021-07-27 00:00:00 Patient Secure Msg Valenz[facility]Franko fairbanks [facility] 1.2.840.114 350.1.13.10 4.2.7.2.686 [id number] [facility] 2021-07-20 00:00:00 2021-07-20 00:00:00 Orders Only Doctor Unassigned, [place] [facility] 1.2840.114 350.1.13.10 4.2.7.2.686 [id number] [facility] 2021-07-16 00:00:00 2021-07-16 00:00:00 Telephone Manisha Norris [facility] PRIMARY CARE PAVILLION 1.2.840.114 350.1.13.10 4.2.7.2.686 [id number] [facility] 2021-07-13 00:00:00 2021-07-13 00:00:00 Telephone Manisha Norris [facility] PRIMARY CARE [place] 1.2.840.114 350.1.13.10 4.2.7.2.686 [id number] [facility] 2021-07-06 12:14:46 2021-07-06 23:59:00 Hospital Encounter Manisha Norris [facility] PR[facility] CARE [place] 1.2.840.114 350.1.13.10 4.2.7.2.686 [id number] [facility] 2021-07-06 13:45:00 2021-07-06 14:00:00 Vpk Teacher Visit Pcp-Lab JrAnthonygeoffrey Hale [facility] PRIMARY CARE [place] 1.2.840.114 350.1.13.10 4.2.7.2.686 [id number] [facility] 2021-07-06 11:15:00 2021-07-06 12:04:47 Outpatient R MANISHA NORRIS [facility] [id number] [facility] 2021-07-06 11:15:00 2021-07-06 12:04:47 Outpatient R MANISHA NORRIS [facility] [id number] [facility] 2021-07-06 11:15:00 2021-07-06 12:04:47 Office Visit Manisha Norris [facility] PRIMARY CARE [place] 1.2.840.114 350.1.13.10 4.2.7.2.686 [id number] [facility] 2021-07-06 11:15:00 2021-07-06 11:15:00 Outpatient R MANISHA NORRIS [facility] [id number] [facility] 2021-06-29 00:00:00 2021-06-29 00:00:00 Orders Only Doctor Unassigned, [place] [facility] 1.84.114 350.1.13.10 4.2.7.2.686 [id number] [facility] 2021-06-17 00:00:00 2021-06-17 00:00:00 Telephone Sa[facility]lFranko [facility] 1.84114 350.1.13.10 4.2.7.2.686 [id number] [facility] 2021-06-17 00:00:00 2021-06-17 00:00:00 Orders Only Doctor Unassigned, [place] [facility] 1.840.114 350.1.13.10 4.2.7.2.686 [id number] [facility] 2021-06-09 10:20:41 2021-06-09 23:59:00 Outpatient MANISHA ALONZO [facility] [id number] [facility] 2021-06-09 10:20:41 2021-06-09 23:59:00 Outpatient MANISHA ALONZO [facility] [id number] [facility] 2021-06-09 10:20:41 2021-06-09 23:59:00 Outpatient MANISHA ALONZO [facility] [id number] [facility] 2021-06-09 10:20:41 2021-06-09 23:59:00 Outpatient MANISHA ALONZO [facility] [id number] [facility] 2021-06-09 10:20:41 2021-06-09 23:59:00 Hospital Encounter Manisha Norris [facility] MEDICAL OFFICE BUILDING 1.84.114 350.1.13.10 4.2.7.2.686 [id number] [facility] 2021-06-09 10:20:27 2021-06-09 23:59:00 Hospital Encounter Manisha Norris Geoffrey [facility] BUILD[facility] 1..840.114 350.1.13.10 4.2.7.2.686 [id number] [facility] 2021-06-09 12:00:00 2021-06-09 12:00:00 Outpatient MANISHA ALONZO [facility] [id number] [facility] 2021-06-09 10:20:19 2021-06-09 10:35:19 Vpk Teacher Visit Lab, Guilherme MoranFranko frias [facility] BUILDING 1..840.114 350.1.13.10 4.2.7.2.686 [id number] [facility] 2021-06-09 09:52:48 2021-06-09 10:07:48 Office Visit Franko Thakur [facility] 1..840.114 350.1.13.10 4.2.7.2.686 [id number] [facility] 2021-06-09 10:00:00 2021-06-09 10:00:00 Outpatient FRANKO SMITH [facility] [id number] [facility] 2021-06-08 10:45:00 2021-06-08 11:40:22 Outpatient MANISHA ALONZO [facility] [id number] [facility] 2021-06-08 10:45:00 2021-06-08 11:40:22 Outpatient MANISHA ALONZO [facility] [id number] [facility] 2021-06-08 10:30:31 2021-06-08 11:40:22 Office Visit Manisha Norris [facility] 1..840.114 350.1.13.10 4.2.7.2.686 [id number] [facility] 2021-06-08 10:45:00 2021-06-08 10:45:00 Outpatient MANISHA ALONZO [facility] [id number] [facility] 2021-06-08 00:00:00 2021-06-08 00:00:00 Telephone [facility]o Thak[facility] 1.84.114 350.1.13.10 4.2.7.2.686 [id number] [facility] 2021-06-08 00:00:00 2021-06-08 00:00:00 Orders Only Doctor Unassigned, [facility] 1.84.114 350.1.13.10 4.2.7.2.686 [id number] [facility] 2021-06-07 08:45:00 2021-06-07 08:45:00 Outpatient FRANKO SMITH [facility] [id number] [facility] 2021-06-04 00:00:00 2021-06-04 00:00:00 Patient Secure Msg Doctor Unassigned, [facility] 1.84.114 350.1.13.10 4.2.7.2.686 [id number] [facility] 2021-05-25 14:30:47 2021-05-25 23:59:00 Hospital Encounter Rosales Chiu [facility] 1..114 350.1.13.10 4.2.7.2.686 [id number] [facility] 2021-05-25 14:29:53 2021-05-25 14:29:53 [id number] 2021-05-25 14:29:53 2021-05-25 14:29:53 Hospital Encounter Rosales Chiu [facility] 1..114 350.1.13.10 4.2.7.2.686 [id number] [facility] 2021-05-25 00:00:00 2021-05-25 00:00:00 Case Management Rosales Chiu [facility] 1.84.114 350.1.13.10 4.2.7.2.686 [id number] [facility] 2021-05-21 11:30:00 2021-05-21 11:30:00 Outpatient R [facility] [id number] [facility] 2021-05-21 11:30:00 2021-05-21 11:30:00 Outpatient R [facility] [id number] [facility] 2021-05-19 00:00:00 2021-05-19 00:00:00 Telephone Franko Thakur [facility] 1.84.114 350.1.13.10 4.2.7.2.686 [id number] [facility] 2021-05-04 00:00:00 2021-05-04 00:00:00 Telephone Teresa Dejesus [facility] 1.84.114 350.1.13.10 4.2.7.2.686 [id number] [facility] 2021-04-28 00:00:00 2021-04-28 00:00:00 Orders Only Doctor Unassigned, [facility] 1.284.114 350.1.13.10 4.2.7.2.686 [id number] 009 [id number] [facility] 2021-04-21 14:41:37 2021-04-21 15:01:37 Office Visit Atanasov, Strahil [facility] 1.840.114 350.1.13.10 4.2.7.2.686 [id number] [facility] 2021-04-21 15:00:00 2021-04-21 15:00:00 Outpatient R LEELA BONILLA STRANEL [facility] [id number] [facility] 2021-04-07 19:30:00 2021-04-07 19:30:00 Outpatient R [facility] [id number] [facility] 2021-04-07 14:08:40 2021-04-07 16:38:40 Vpk Teacher Visit 1, [facility] Sleep Lab Bed Leela Bonilla [facility] 1..114 350.1.13.10 4.2.7.2.686 [id number] [facility] 2021-04-06 13:30:00 2021-04-06 14:54:02 [id number] 2021-04-06 13:15:14 2021-04-06 13:45:14 Office Visit Rosales Chiu [facility] 1..114 350.1.13.10 4.2.7.2.686 [id number] [facility] 2021-04-06 13:30:00 2021-04-06 13:30:00 [facility] [id number] [facility] 2021-04-05 10:13:44 2021-04-05 10:28:44 Laboratory Only Only, [facility] Test [facility] 1.840.114 350.1.13.10 4.2.7.2.686 [id number] [facility] 2021-04-05 10:13:44 2021-04-05 10:28:44 Laboratory Only Only, Ad[facility] Test [facility] 1..114 350.1.13.10 4.2.7.2.686 [id number] [facility] 2021-04-05 10:15:00 2021-04-05 10:15:00 Outpatient R [facility] [id number] [facility] 2021-04-05 00:00:00 2021-04-05 00:00:00 Orders Only Doctor Unassigned, [facility] 1..114 350.1.13.10 4.2.7.2.686 [id number] [id number] [facility] 2021-04-05 00:00:00 2021-04-05 00:00:00 Orders Only Doctor Unassigned, [facility] 1..114 350.1.13.10 4.2.7.2.686 [id number] [id number] [facility] 2021-03-24 00:00:00 2021-03-24 00:00:00 Telephone Deanrodriguez [facility]?Yeseniageoffrey [facility] 1.84.114 350.1.13.10 4.2.7.2.686 [id number] [facility] 2021-03-24 00:00:00 2021-03-24 00:00:00 Telephone Franko Thakur [facility]?Francisco selvin [facility] Building 1.84.114 350.1.13.10 4.2.7.2.686 [id number] [facility] 2021-03-23 00:00:00 2021-03-23 00:00:00 Telephone [facility]?Yeseniageoffrey [facility] 1.114 350.1.13.10 4.2.7.2.686 [id number] 044 [id number] [facility] 2021-03-10 14:29:05 2021-03-10 14:49:05 Office Visit Leela Bonilla [facility] Building 1..840.114 350.1.13.10 4.2.7.2.686 [id number] [facility] 2021-03-10 14:29:05 2021-03-10 14:49:05 [facility] Building 1..840.114 350.1.13.10 4.2.7.2.686 [id number] [facility] 2021-03-10 14:40:00 2021-03-10 14:40:00 Outpatient R LEELA BONILLA TJALICIA RILEYNEBehzad [facility] [id number] [facility] 2021-03-10 00:00:00 2021-03-10 00:00:00 Patient Secure g Guerita Alonso [facility]?Francisco [facility] 1..840.114 350.1.13.10 4.2.7.2.686 [id number] [facility] 2021-03-09 10:00:00 2021-03-09 10:00:00 Outpatient R FRANKO THAKUR [facility] [id number] [facility] 2021-03-09 09:32:44 2021-03-09 09:47:44 Office Visit Franko Thakur [facility]?Yeseniageoffrey [facility] Building 1.2.840.114 350.1.13.10 4.2.7.2.686 [id number] [facility] 2021-03-08 00:00:00 2021-03-08 00:00:00 Patient Secure Msg [facility] 1.84.114 350.1.13.10 4.2.7.2.686 [id number] [facility] 2021-03-05 00:00:00 2021-03-05 00:00:00 Patient Secure Msg [facility]?Francisco montalvo Medical Office Building 1.284.114 350.1.13.10 4.2.7.2.686 [id number] [facility] 2021-03-04 19:30:00 2021-03-04 19:30:00 Outpatient LEELA LOPEZ STRANEBehzad [facility] [id number] [facility] 2021-03-04 15:12:29 2021-03-04 17:42:29 Vpk Teacher Visit 1, [facility] Sleep Lab Bed Leela Bonilla [facility] 1.84.114 350.1.13.10 4.2.7.2.686 [id number] [facility] 2021-03-04 00:00:00 2021-03-04 00:00:00 Orders Only Doctor Unassigned, [facility] 1.84.114 350.1.13.10 4.2.7.2.686 [id number] [facility] 2021-03-04 00:00:00 2021-03-04 00:00:00 Patient Secure Msg [facility]CO MONTALVO [facility] 1.284.114 350.1.13.10 4.2.7.2.686 [id number] [facility] 2021-03-02 14:35:01 2021-03-02 14:50:01 Laboratory Only Only, Adc Test [facility] 1.2.114 350.1.13.10 4.2.7.2.686 [id number] [facility] 2021-03-02 14:30:00 2021-03-02 14:30:00 Outpatient R [facility] [id number] [facility] 2021 12:29:22 2021 12:44:22 Vpk Teacher Visit Pob, Ad[facility] Lab Main [facility] 1.2.840.114 350.1.13.10 4.2.7.2.686 [id number] 353 [id number] [facility] 2021 10:58:32 2021 12:05:09 Office Visit Gavin [facility] 1.2.840.114 350.1.13.10 4.2.7.2.686 [id number] 220 [id number] [facility] 2021 10:58:32 2021 12:05:09 Office Visit Gavin [facility] 1.2.840.114 350.1.13.10 4.2.7.2.686 [id number] [facility] 2021 10:30:00 2021 12:05:09 Outpatient R GAVIN [facility] [id number] [facility] 2021 10:30:00 2021 10:30:00 Outpatient R GAVIN [facility] [id number] [facility] 2021 00:00:00 2021 00:00:00 Orders Only Doctor Unassigned, [facility] 1.2.840.114 350.1.13.10 4.2.7.2.686 [id number] [facility] 2021-02-03 08:57:54 2021-02-03 09:17:54 Office Visit Leela Bonilla Florencio [facility] Building 1.2.840.114 350.1.13.10 4.2.7.2.686 [id number] [facility] 2021-02-03 09:00:00 2021-02-03 09:00:00 Outpatient LEELA LOPEZ STRAHIL [facility] [id number] [facility] 2021-02-02 09:10:37 2021-02-02 09:40:37 Office Visit Franko Thakur [facility] 1.2.840.114 350.1.13.10 4.2.7.2.686 [id number] [facility] 2021-02-02 09:30:00 2021-02-02 09:30:00 Outpatient FRANKO SMITH [facility] [id number] [facility] 2021-02-02 00:00:00 2021-02-02 00:00:00 Orders Only Doctor Unassigned, [facility] 1.2.840.114 350.1.13.10 4.2.7.2.686 [id number] [facility] 2021-02-01 13:30:00 2021-02-01 13:30:00 Outpatient FRANKO SMITH [facility] [id number] [facility] 2020-07-01 06:05:00 2020-07-01 16:15:00 Outpatient GARLAND CURRIE [facility] [address] [facility] 2020-05-28 12:12:00 2020-05-28 12:12:00 Outpatient Andry Guillen [facility] [id number] [facility] 2020-05-28 12:12:00 2020-05-28 12:12:00 Outpatient Andry Guillen [facility] [id number] [facility] Results Test Description Test Time Test Comments Results Result Co mments Source [facility] MOLECULAR [id number] 20:35:51* Test Item Value Reference Range Interpretation Comme nts POCT Molecular FluA (test co de = 83083-1) Negative Negative POCT Molecular FluB (test co de = 84322-9) Negative Negative Lab Interpretation (test cod e = 04632-9) Normal [facility] MOLECULAR [id number] 20:18:28* Test Item Value Reference Range Interpretation Comme nts POCT Molecular Strep (test c ode = 09695-5) Negative Negative Lab Interpretation (test cod e = 95234-8) Normal [facility] MOLECULAR [id number] 20:18:28* Test Item Value Reference Range Interpretation Comme nts POCT Molecular Strep (test c ode = 72698-8) Negative Negative Lab Interpretation (test cod e = 91639-9) Normal [facility] Thyroid Xjcxzq1436-30-68 15:04:14 [facility] 1965 Sex: FPatient: KIRILL BACA Date/Time05/28/2020 13:30 CSTReason for ExamOther (please specify)ReportEXAMINATION:Ultrasound-guided [...] neck base was prepped and draped in theusual sterile fashion. 1% lidocaine was administered for local anesthetic.The 3.2 cm left thyroid lobe inferior pole nodule was first targeted. Multiple attempts with 25-gauge needles were inserted into the lesion under real-time sonographic guidance for purposes of FNA. A total of 2 passes were per formed. All aspirates were given to the pathologist [...] the procedure well without complications.IMPRESSION:1. Technically successful ultrasound-guided left thyroid lobe inferior pole nodule FNA.2. Technically successful ultrasound-guided left thyroid lobe midpole pole nodule FNA.3. Follow-up pathology for final results of the delivered specimens. Final Dictated by: MD Moraima, SamerDictated DT/TM: 05/28/2020 2:59 pmSigned by: MD Moraima, SamerSigned (Electronic Signature): 05/28/2020 3:04 pmIR Thyroid [id number] 15:04:14 [facility] 1965 Sex: FPatient: KIRILL BACA Date/Time05/28/2020 13:30 CSTReason for Examleft thyroid noduleReportEXAMINATION:Ultrasound-guided [...] left neck reveals the well-circumscribed left thyroid in ferior/mid pole nodules. The overlying area of the [...] the procedure well without complications.IMPRESSION:1. Technically successful ultrasound-guided left thyroid lobe inferior pole nodule FNA.2. Technically successful ultrasound-guided left thyroid lobe midpole pole nodule FNA.3. Follow-up pathology for final results of the delivered specimens. Final Dictated by: MD Moraima, SamerDictated DT/TM: 05/28/2020 2:59 pmSigned by: MD Moraima, SamerSigned (Electronic Signature): 05/28/2020 3:04 pmPOC Cgxjfrl0002-08-81 12:43:26* Test Item Value Reference Range Interpretation Comme nts Glucose POC (test code = Glucose POC) 107 mg/dL 74-106 H POC Glucose used on critically ill patients is considered "off-label use" and has not been cleared or approved by the FDA. Alternative testing methods should be considered if the patient is critically ill. POC Bgvglxb8999-18-61 12:21:41* Test Item Value Reference Range Interpretation Comme nts Glucose POC (test code = Glucose POC) 105 mg/dL 74-106 POC Glucose used on critically ill patients is considered "off-label use" and has not been cleared or approved by the FDA. Alternative testing methods should be considered if the patient is critically ill. Prothrombin Time and DLZ8589-74-89 11:11:55* Test Item Value Reference Range Interpretation Comme nts Prothrombin Time (test code = Prothrombin Time) 10.8 seconds 9.0-12.0 INR (test code = INR) 1.0 ratio 0.9-1.2 Partial Thromboplastin Rgjk5374-87-67 11:11:55* Test Item Value Reference Range Interpretation Comme nts Partial Thromboplastin Time (test code = Partial Thromboplastin Time) 27.8 seconds 24.0-35.0 IG Vdxni8692-74-25 10:58:55* Test Item Value Reference Range Interpretation Comme nts IG (test code = IG) 0 % 0-5 IG Abs (test code = IG Abs) 0 x10 N Complete Blood Count with Jwnzvhjmkwgn6336-43-62 10:58:54* Test Item Value Reference Range Interpretation Comme nts WBC (test code = WBC) 4.5 x10 [...] 31.8 pg 26.0-32.0 Platelets (test code = Platelets) 228 x10 140-440 MPV (test code = MPV) 11.0 fL 7.5-11.2 Slide Review (test code = Slide Review) Auto N Result created b y GL_SET_SLIDE_REVIEW_A UTO Automated Cgvrpwelwygb4924-37-88 10:58:54* Test Item Value Reference Range Interpretation Comme nts Neutro Auto (test code = Neutro Auto) 60.9 % N Lymph Auto (test code = Lymph Auto) 27.7 % N Teller Auto (test code = Teller Auto) 8.5 % N Eos, Auto (test code = Eos, Auto) 1.8 % N Basophil Auto (test code = B asophil Auto) 0.9 % N Neutro Absolute (test code = Neutro Absolute) 2.7 x10 2.7-7.3 Lymph Absolute (test code = Lymph Absolute) 1.2 x10 0.8-3.5 Teller Absolute (test code = M foster Absolute) 0.4 x10 0.3-0.9 Eos Absolute (test code = Eo s Absolute) 0.1 x10 0.0-0.3 Baso Absolute (test code = B aso Absolute) 0.0 x10 0.0-0.1 Notes Date/Time Note Provider Source 2023-07-07 10:20:26 AdSTLf1B911QJY3C9nDA p1ZPBoQ9RyVhgy +ipxonAigmE/keU2bWUFlUReDK1Eq50131 -12-22T10:20:26 Prescription for Humira sent to pharmacy. 60638-8Keqysksdy encounter QdhrEI8135-31-72U58:21:09Telephone encounter NoteTXT1.2.840.350389.1.13.104.2.7 .2.280950|[id number] for patient qmlq01872-3AizuZLMJLNXBCHSGqrfjegc d C-CDA narrative gnpf182587565Qiczx [place] [id number] 52OBSOSACBZDIBIEXJYJANQZ1747-60-12 T10:21:091.2.840.937003.1.72.3.15| 1.2.840.988822.1.13.104.2.7.2.7278 [id number] [facility] 2023-07-07 10:15:24 2J2nuS0XCATAMfHKv5qG Qui5RrmFhoQ4G/ rBtmyf+RtPb9lBCbpvuAGr44p8Q0k84167 -12-22T10:15:24 Labs reviewed from 04/04/23LOV:04/04/23NOV:10/05/22Pr escription sent to pharmacy. 99815-3Jsnnteeft encounter BdctLY5598-62-98X19:20:13Telephone encounter NoteTXT1.2.840.088533.1.13.104.2.7 .2.849958|[id number] for patient evhw50664-5ZlikQOKXKOMXNJVUtnrnciu d C-CDA narrative uhwf360165332Wpmxt [place] [id number] 21IJUKCDPMIRCSYPYTTMDUFP0411-31-43 T10:20:131.2.840.609763.1.72.3.15| 1.2.840.766381.1.13.104.2.7.2.7278 [id number] [place] [facility] 2023-07-07 09:55:47 KE+e6FHRNmkYpZIbyqFz WDawa4jJlEcw7/ JyKNoOWW0kOco3wW9R2dTdj+7d1sbv19212022T09:55:47 Notes from PAMELA Norris dated 05/25/23Advise patient she can try increasing her gabapentin to 2 pills (600 mg) three times a day.NOV: 10/06/23 12033-2Haamwprpg encounter LrsaLY0797-47-89F55:11:03Telephone encounter NoteTXT1.2.840.935369.1.13.104.2.7 .2.037140|[id number] for patient pdcv42735-0KpumLGMYBAWCTQLResdedaq d C-CDA narrative [address] TviwQjcjitfkjFtgttrivzYXLM82351265 68BDRXKFIXNNXTCLCNZJYNOR8925-19-34 T10:11:031.2.840.091542.1.72.3.15| 1.2.840.054333.1.13.104.2.7.2.7278 [id number] [facility] 2023-07-07 08:50:38 FS+OFXfOMxKa6ZaGQeIw bgdbAzj/dIHe9v lsHrZ5xMNjNO1ELUSHnEHBgOslx52e6139 -12-22T08:50:38 Refill request routed to provider for review:Requested PrescriptionsPending Prescriptions Disp Refillsadalimumab (HUMIRA,CF, PEN) 40 mg/0.4 mL injection 2 Pen 2Sig: inject 1 Pen under the skin every 14 (fourteen) days.There is no refill protocol information for this orderLrx 03/23/2023 #2pen +2 refillsRecent VisitsDate Type Provider Dept04/04/23 Office Visit Manisha Norris PA-C [facility]12/20/22 Office Visit Manisha Norris PA-C [facility]10/07/22 Office Visit Manisha Norris PA-C [facility]-PcpFuture AppointmentsDate Type Provider Dept10/06/23 Appointment Manisha Norris PA-C Adult [facility] Group-PcpTechnician Visit on 3Component Date ValueWBC 04/04/2023 6.63RBC 04/04/2023 4.46HGB 04/04/2023 13.6HCT 04/04/2023 41.1MCV 04/04/2023 92.2MCH 04/04/2023 30.5MCHC 04/04/2023 33.1RDW-SD 04/04/2023 45.4RDW-CV 04/04/2023 13.2PLT 04/04/2023 258MPV 04/04/2023 10.9NRBC/100 WBC 04/04/2023 0.0NRBC x10^3 04/04/2023 <0.01GRAN MAT (NEUT) % 04/04/2023 64.1IMM GRAN % 04/04/2023 0.30LYMPH % 04/04/2023 24.1MONO % 04/04/2023 8.0EOS % 04/04/2023 2.9BASO % 04/04/2023 0.6GRAN MAT x10^3(ANC) 04/04/2023 4.25IMM GRAN x10^3 04/04/2023 <0.03LYMPH x10^3 04/04/2023 1.60MONO x10^3 04/04/2023 0.53EOS x10^3 04/04/2023 0.19BASO x10^3 04/04/2023 0.04NA 04/04/2023 140K 04/04/2023 4.6CL 04/04/2023 103CO2 TOTAL 04/04/2023 24AGAP 04/04/2023 13BUN 04/04/2023 20GLUCOSE 04/04/2023 96CREATININE 04/04/2023 0.80TOTAL BILI 04/04/2023 0.4CALCIUM 04/04/2023 9.6T PROTEIN 04/04/2023 7.7ALBUMIN 04/04/2023 4.7ALK PHOS 04/04/2023 84ALTv 04/04/2023 31AST(SGOT) 04/04/2023 26eGFR 04/04/2023 73.2CRP 04/04/2023 0.3Extra Tube 04/04/2023 Received in LabQFT Gold Plus Result 04/04/2023 SoucnbqnTQD-45-CF4. Seropositive rheumatoid arthritis of multiple joints M05.79Please advise.Samia Esparza 07/07/2023 8:50 AM 82209-5Zluctyugb encounter UkuyUC0308-65-00D07:04:11Telephone encounter NoteTXT1.2.840.861300.1.13.104.2.7 .2.690841|[id number] for patient wczd28010-8XmdhFBJMJADTQOXJckcbmpe d C-CDA narrative [id number] [id number] 06SLCTYOVPYCWJZKTECHRRQX4049-45-93 T09:04:111.2.840.960177.1.72.3.15| 1.2.840.163104.1.13.104.2.7.2.7278 [id number] Samia Esparza [facility] 2023-04-04 14:15:00 sTs0DapYnNX7Cpkt37NF HXElUGRsXXLo2O 9Zb2ghgzexYy5o0yFmORsGXMaqbu/t2T14:15:00 Images from the original note were not included.Venipuncture collection performed by clean technique on the right anticubitus. Total of 1 attempts were made. Slight pressure and a bandage/dressing were applied to the site(s). The patient experienced no complications. The following specimens were processed according to instructions and sent to [facility] laboratories per lab order on 04/04/2023: LT BLUE SST 2 RED LAV 1 PPT DK GREEN (LiHep) 1 DK GREEN (SodH) PRECIADO DK BLUE (K2) DK BLUE (S) ACD Blood Culture NIPT/NTD 50413-2Nbbhf ZkbaQF1081-85-74B90:23:40Nurse NoteTXT1.2.840.215547.1.13.104.2.7 .2.367329|[id number] for patient zmui51181-2Nekjk NoteLNUT[id number] 23QFYTNLDJTDZYGHYLOXLAQK7985-91-59 T14:23:401.2.840.026421.1.72.3.15| 1.2.840.094656.1.13.104.2.7.2.7278 [id number] [facility] 2023-03-23 14:07:44 8ZmPuE+P/Z2SD53XICXJ fz4w9UBWYdjO1w uoCnh6ISh90GhtIL79R/2iBLQhBuXM1330 -09-07T14:07:44 QFT 06/09/21 NegativePlaced orders for QFTNOV 04/04/23Labs efill request routed to provider for review:Requested Prescriptions Pending Prescriptions Disp Refills adalimumab (HUMIRA,CF, PEN) 40 mg/0.4 mL injection 1 Kit 2 Sig: inject 1 Pen under the skin every 14 (fourteen) days. There is no refill protocol information for this order Recent VisitsDate Type Provider Dept 12/20/22 Office Visit Manisha Norris PA-C [facility] 10/07/22 Office Visit Manisha Norris PA-C [facility] 04/08/22 Office Visit Manisha Norris PA-C [facility] Showing recent visits within past 365 days and meeting all other requirementsFuture AppointmentsDate Type Provider Dept 04/04/23 Appointment Manisha Norris PA-C [facility] Showing future appointments within next 365 days and meeting all other requirements Vpk Teacher Visit on 12/08/2022 Component Date Value TSH 12/08/2022 3.47 HGB A1C 12/08/2022 5.6 CREAT U 12/08/2022 257.6 MICROALB U 12/08/2022 16 MICROAL/CR 12/08/2022 6 Office Visit on 10/13/2022 Component Date Value SARS-CoV-2 NAAT 10/13/2022 Not Detected POCT Molecular Strep 10/13/2022 Negative POCT Molecular FluA 10/13/2022 Negative POCT Molecular FluB 10/13/2022 Negative COVID DMT Interpretation 10/13/2022 Value:Interpretation/Recommendatio ns:Molecular NAAT Tests for Active Infection with the SARS-CoV-2 Virus:The patient has currently tested negative for the SARS-CoV-2 virus that causes COVID-19 illness. This may indicate that the patient does not have an active infection with the SARS-CoV-2 virus. However, infection is not completely ruled out as the false negative rate for molecular NAAT testing using a nasopharyngeal sample can be up to 30%, mostly dependent on the timing of sample collection in relation to illness onset (either too early or too late) and nasopharyngeal sampling deficiencies rather than inherent test capabilities. If the patient has symptoms concerning for COVID-19 illness, the patient should still isolate for at least 5 days and a repeat NAAT test (PCR, Rapid ID Now, etc.) is recommended. Additionally, if the patient is symptomatic but tests negative for COVID-19, influenza and other upper respiratory infections (such as common cold viruses and RSV) should be considered. Lastly, if the patient was exposed to COVID-19, current CDC guidelines recommend wearing a high-quality mask when around others for 10 days with testing on day 5 in lieu of quarantining. Tests for IgM and/or IgG Antibodies to the SARS-CoV-2 Virus:Testing for IgM and IgG antibodies approximately 3 weeks after illness onset will likely indicate if the patient has produced detectable antibodies to the SARS-CoV-2 virus. However, some patients may take longer to develop detectable antibodies, while others infected with SARS-CoV-2 may never develop detectable antibodies, particularly those who have had mild or asymptomatic illness. Of note, if the patient was vaccinated earlier than 1-2 weeks prior to antibody testing, any positive SARS-CoV-2 IgG antibody result may be due to vaccination. The specific duration and strength of immunity from SARS-CoV-2 IgG antibodies is highly variable between individuals and is dependent on a variety of factors, including infection vs. vaccination response, the waning effect of antibodies overtime, initial infection severity, the strength of the patient's own immune system, and the variants to which the patient is exposed. Specifically, some Omicron subvariants have been shown to be more effective in evading currently existing antibodies, which likely explains re-infections in people who have been previously vaccinated and/or infected. Interpretation Result Comments:These interpretation comments are based upon the following COVID-19 tests the patient has had at [facility]: molecular nucleic acid amplification tests (NAAT) (specifically PCR testing and Rapid ID Now testing) and antibody tests. It does not take into account antigen testing or any additional testing that a patient may have had outside of the [facility] medical record. COVID Results 10/13/2022 Value:SARS-CoV-2 NAAT (no units) Date Value 10/13/2022 Not Detected SARS-CoV-2 Rapid ID NOW (no units) Date Value 01/28/2022 Not Detected 04/05/2021 Not Detected 03/02/2021 Not Detected Vpk Teacher Visit on 10/07/2022 Component Date Value WBC 10/07/2022 7.68 RBC 10/07/2022 4.46 HGB 10/07/2022 13.6 HCT 10/07/2022 41.9 MCV 10/07/2022 93.9 MCH 10/07/2022 30.5 MCHC 10/07/2022 32.5 RDW-SD 10/07/2022 47.3 RDW-CV 10/07/2022 13.6 PLT 10/07/2022 260 MPV 10/07/2022 10.8 NRBC/100 WBC 10/07/2022 0.0 NRBC x10^3 10/07/2022 <0.01 GRAN MAT (NEUT) % 10/07/2022 54.7 IMM GRAN % 10/07/2022 0.30 LYMPH % 10/07/2022 34.4 MONO % 10/07/2022 6.9 EOS % 10/07/2022 2.9 BASO % 10/07/2022 0.8 GRAN MAT x10^3(ANC) 10/07/2022 4.21 IMM GRAN x10^3 10/07/2022 <0.03 LYMPH x10^3 10/07/2022 2.64 MONO x10^3 10/07/2022 0.53 EOS x10^3 10/07/2022 0.22 BASO x10^3 10/07/2022 0.06 NA 10/07/2022 141 K 10/07/2022 5.4 (H) CL 10/07/2022 106 CO2 TOTAL 10/07/2022 26 AGAP 10/07/2022 9 BUN 10/07/2022 15 GLUCOSE 10/07/2022 104 CREATININE 10/07/2022 0.68 TOTAL BILI 10/07/2022 0.4 CALCIUM 10/07/2022 9.7 T PROTEIN 10/07/2022 7.3 ALBUMIN 10/07/2022 4.6 ALK PHOS 10/07/2022 84 ALTv 10/07/2022 31 AST(SGOT) 10/07/2022 27 eGFR 10/07/2022 88.6 CRP 10/07/2022 0.5 G6PD SCREEN 10/07/2022 Normal VIT D 25OH 10/07/2022 25 ICD-10-CM 1. 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 2023-03-23 09:01:26 dH1zYEDCf8R2Y5Xn7Vyf 1IEZsHTkHg0ZNP hSQCzMPhEk2Z0IrrhFNlSpgMJJFohU8472 -09-07T09:01:26 NOV 04/04/23 60097-1Pyhwujtxl encounter ZuntJK0257-99-64K57:02:20Telephone encounter NoteTXT1.2.840.923492.1.13.104.2.7 .2.691279|[id number] for patient hapu55164-0UkrvVPCKVDXYJS[id number] 42BCWEXNTHXPBGFGYDVLMMMM9459-32-99 T09:02:201.2.840.413355.1.72.3.15| 1.2.840.914169.1.13.104.2.7.2.7278 [id number] [facility] 2023-03-21 14:27:27 rM0vZ8F/XOCLw3SculNH IOOYIzOr11ASDH njSQ+2I+5mTqJNewkaD4J2VlfSMeN53187 -09-05T14:27:27 Previous referral placed on 12/30 is closed. Please review and sign if appropriate 40579-9Bhcfttqzg encounter UjavJC9645-05-64K65:29:31Telephone encounter NoteTXT1.2.840.650534.1.13.104.2.7 .2.958527|[id number] for patient jocr48070-8BrihJHFWNCIRAE[id number] 71MKKUGWPLNJTYILCKSWVZID1842-93-29 T14:29:311.2.840.988974.1.72.3.15| 1.2.840.086922.1.13.104.2.7.2.7278 [id number] [facility] 2023-03-21 11:11:54 gDMbt+OSQ4LWnty62yUy ljVFphTZJTMvpI hgAGQ+zjqJlElZsau6hnDYxprYwiec0236 -09-05T11:11:54 Kirill Baca is a 57 year old femaleCamille called from Endocrinology, states did not receive faxed referral from 03/24/23 Please refax to [phone]: E11.69, E03.9 71501-7Sfagiihhn encounter KnmyMV1644-07-81F02:15:26Telephone encounter NoteTXT1.2.840.430229.1.13.104.2.7 .2.143910|[id number] for patient htiy92667-3VaciSC927798163Jcthye [id number] 80HDFNEBVHQPJENVYQIOKWYG7670-01-91 T11:15:261.2.840.681776.1.72.3.15| 1.2.840.967278.1.13.104.2.7.2.7278 [id number] Shanti Marie [facility]
[2023-07-27 18:18] LABS: SARS-CoV-2 Antigen Rapid Res Negative (Negative)
--- NOTE | 2023-07-27 19:46 | EDPHYS ---
Physician Documentation [facility] Name: Lashon Baca Age: 58 yrs Sex: Female : 1965 Arrival Date: 07/27/2023 Time: 17:26 Bed DX4 Private MD: ED Physician Mio Garvin HPI: 07/27 18:00 This 58 yrs old Female presents to ER via Ambulatory with complaints of Covid cp Test. 18:00 The patient or guardian reports cough. Onset: The symptoms/episode began/occurred this cp morning. 18:00 Associated signs and symptoms: Pertinent positives: fever, cough, congestion, body cp aches, headache. Patient reports grandchild diagnosed with COVID recently. Historical: - Allergies: 17:50 Cymbalta (rash); ph 17:50 Savella (rash); ph 17:50 tramadol (Itching); ph - PMHx: 17:50 Bipolar disorder; Diabetes - NIDDM; Diabetes Mellitus Type 2; Fibromyalgia; Silas's ph disease; Kidney stone; Rheumatoid Arthritis; Sleep Apnea; - PSHx: 17:50 section; Cholecystectomy; hysterectomy; L knee; L side of thyroid removed ph (Cancerous lumps); R hip replacement; - Immunization history:: Adult Immunizations unknown. - Social history:: Smoking status: Patient denies any tobacco usage or history of. ROS: 18:05 Constitutional: Positive for body aches, chills, Negative for fever, poor PO intake, cp 18:05 Eyes: Negative for injury, pain, redness, and discharge, cp 18:05 ENT: Negative for drainage from ear(s), ear pain, difficulty swallowing, difficulty handling secretions, 18:05 Respiratory: Positive for cough, Negative for shortness of breath, wheezing, 18:05 Abdomen/GI: Negative for abdominal pain, vomiting, diarrhea, constipation, 18:05 : Negative for urinary symptoms, 18:05 Neuro: Positive for headache, Negative for altered mental status, 18:05 All other systems are negative, Exam: 18:10 Constitutional: The patient appears in no acute distress, alert, awake, non-toxic, well cp developed, well nourished, 18:10 Head/Face: Normocephalic, atraumatic. cp 18:10 Eyes: Periorbital structures: appear normal, Conjunctiva: normal, no exudate, no injection, Sclera: no appreciated abnormality, Lids and lashes: appear normal, bilaterally, 18:10 ENT: External ear(s): are unremarkable, Nose: is normal, Mouth: Lips: moist, Oral mucosa: pink and intact, moist, Posterior pharynx: Airway: no evidence of obstruction, patent, Tonsils: no enlargement, no exudate, erythema, that is mild, exudate, is not appreciated, 18:10 Neck: ROM/movement: is normal, is supple, without pain, no range of motions limitations, no meningismus, 18:10 Chest/axilla: Inspection: normal, 18:10 Cardiovascular: Rate: normal, 18:10 Respiratory: the patient does not display signs of respiratory distress, Respirations: normal, no use of accessory muscles, no retractions, labored breathing, is not present, Breath sounds: decreased breath sounds, are not appreciated, stridor, is not appreciated, + upper airway congestion. wheezing: is not appreciated, 18:10 Abdomen/GI: Exam negative for discomfort, distension, guarding, Inspection: abdomen appears normal, Vital Signs: 17:46 BP 138 / 85; Pulse 89; Resp 18; Temp 97.9; Pulse Ox 99% on R/A; ph MDM: 18:03 Patient medically screened. cp 19:45 Data reviewed: vital signs, nurses notes, lab test result(s). cp 19:45 Counseling: I had a detailed discussion with the patient and/or guardian regarding the cp historical points, exam findings, and any diagnostic results supporting the discharge/admit diagnosis, lab results. ED course: VSS. Patient appears non-toxic and no signs of respiratory distress. Will treat with Plaxovid with known close contact to COVID positive grandchild and discharge to home for continued monitoring. 07/27 17:51 Order name: SARS RAPID ph 07/27 17:51 Order name: Flu ph 07/27 17:51 Order name: Strep ph 07/27 18:19 Order name: Throat Culture EDMS Administered Medications: No medications were administered Disposition Summary: 07/27/23 19:46 Discharge Ordered Notes: Location: Home cp Problem: new cp Symptoms: are unchanged cp Condition: Stable cp Diagnosis - Viral infection, unspecified cp Followup: cp - With: Private Physician - When: 2 - 3 days - Reason: Recheck today's complaints Discharge Instructions: - Discharge Summary Sheet cp - COVID-19 cp - COVID-19: What Your Test Results Mean - [facility] (04/13/2021) cp - 10 Things You Can Do to Manage Your COVID-19 Symptoms at Home - [facility] (01/29/2021) cp - COVID-19: Quarantine and Isolation - [facility] (10/13/2021) cp - COVID-19: What to Do If You Are Sick - [facility] (10/05/2021) cp Forms: - Medication Reconciliation Form cp - Thank You Letter cp - Antibiotic Education cp - Prescription Opioid Use cp - Patient Portal Instructions cp - Leadership Thank You Letter cp Prescriptions: - Paxlovid 150-100 mg Oral Tablet, Dose Pack - take 1 dose pack ORAL route per package directions; 30 tablet; Refills: 0, cp Product Selection Permitted Signatures: Dispatcher [employer] Nneka Chi RN RN ph Nii Saba, PA PA cp
--- NOTE | 2023-07-27 19:46 | ER ---
Nurse's Notes [facility] Name: Lashon Baca Age: 58 yrs Sex: Female : 1965 Arrival Date: 07/27/2023 Time: 17:26 Bed DX4 Private MD: Diagnosis: Viral infection, unspecified Presentation: 07/27 17:46 Chief complaint: Patient states: Was recently exposed to covid by grandson, today began ph having body aches, nasal congestion, subjective fever, and headache, is concerned because she is on Humira for autoimmune conditions. Coronavirus screen: Vaccine status: Patient reports receiving the 2nd dose of the covid vaccine. Ebola Screen: No symptoms or risks identified at this time. Initial Sepsis Screen: Does the patient meet any 2 criteria? No. Patient's initial sepsis screen is negative. Does the patient have a suspected source of infection? No. Patient's initial sepsis screen is negative. Risk Assessment: Do you want to hurt yourself or someone else? Patient reports no desire to harm self or others. Onset of symptoms was July 27, 2023. 17:46 Method Of Arrival: Ambulatory 17:46 Acuity: KENNETH 4 ph Historical: - Allergies: 17:50 Cymbalta (rash); ph 17:50 Savella (rash); ph 17:50 tramadol (Itching); ph - PMHx: 17:50 Bipolar disorder; Diabetes - NIDDM; Diabetes Mellitus Type 2; Fibromyalgia; Silas's ph disease; Kidney stone; Rheumatoid Arthritis; Sleep Apnea; - PSHx: 17:50 section; Cholecystectomy; hysterectomy; L knee; L side of thyroid removed ph (Cancerous lumps); R hip replacement; - Immunization history:: Adult Immunizations unknown. - Social history:: Smoking status: Patient denies any tobacco usage or history of. Screenin:03 [facility] ED Fall Risk Assessment (Adult) History of falling in the last 3 months, jb4 including since admission No falls in past 3 months (0 pts) Confusion or Disorientation No (0 pts). Abuse screen: Denies threats or abuse. Nutritional screening: No deficits noted. Tuberculosis screening: No symptoms or risk factors identified. Assessment: 20:03 General: Appears in no apparent distress. comfortable, Behavior is calm, cooperative, jb4 appropriate for age. Pain: Denies pain. Neuro: Level of Consciousness is awake, alert, obeys commands, Oriented to person, place, time, situation. Cardiovascular: Patient's skin is warm and dry. Respiratory: Airway is patent Respiratory effort is even, unlabored, Respiratory pattern is regular, symmetrical. GI: No signs and/or symptoms were reported involving the gastrointestinal system. : No signs and/or symptoms were reported regarding the genitourinary system. EENT: No signs and/or symptoms were reported regarding the EENT system. Derm: Skin is intact, Skin is pink, warm \T\ dry. Musculoskeletal: Circulation, motion, and sensation intact. Range of motion: intact in all extremities. Vital Signs: 17:46 BP 138 / 85; Pulse 89; Resp 18; Temp 97.9; Pulse Ox 99% on R/A; ph ED Course: 17:31 Patient arrived in ED. ae5 17:50 Triage completed. ph 17:51 Arm band placed on Patient placed in waiting room, Patient notified of wait time. 18:03 Nii Saba PA is PHCP. 18:03 Mio Garvin MD is Attending Physician. cp 20:03 Patient has correct armband on for positive identification. Bed in low position. Call jb4 light in reach. Side rails up X 1. 20:03 No provider procedures requiring assistance completed. Patient did not have IV access jb4 during this emergency room visit. Administered Medications: No medications were administered Medication: 20:03 VIS not applicable for this client. jb4 Outcome: 19:46 Discharge ordered by MD. cp 20:03 Discharged to home ambulatory, jb4 20:03 Condition: stable 20:03 Discharge instructions given to patient, Instructed on discharge instructions, follow up and referral plans. medication usage, Demonstrated understanding of instructions, follow-up care, medications, Prescriptions given X 1, 20:05 Patient left the ED. jb4 Signatures: Nneka Bai RN RN Nii Saba PA PA cp Bryson, James, RN RN jb4 Gladis Nick ae5
[2023-07-28 01:36] VITALS: BP 138/85; TEMP 97.9; O2SAT 99
== END ==
LOC: ER 17:26
DX: B34.9 Viral infection, unspecified (principal); Z11.52 Encounter for screening for COVID-19; Z88.5 Allergy status to narcotic agent; Z88.8 Allergy status to other drugs, medicaments and biological substances
CPT/HCPCS: 36415; 87070; 87081; 87804; 87811; 99283

== ENCOUNTER → 2023-07-29 | Emergency (ER) | payer OTHER ==
[~2023-07-29] MED LIST: ALBUTEROL 2.5 MG/3 ML NEB SOL ONE; CODEINE 30MG/APAP 300MG TAB ONE; DIPHENHYDRAMINE 25 MG TAB/CAP ONE; IBUPROFEN 400 MG TAB ONE; NA CHLORIDE 0.9% 1,000 ML ONE; ONDANSETRON 4 MG (ODT) TAB ONE
--- OUTSIDE RECORDS SUMMARY | 2023-07-29 20:28 | XMS REPORT | Continuity of Care Document ---
Author Name Unknown Address [address] [facility] [address] [place] [address] [facility] thconnect Address [address] [facility] [address] [place] [address] Care Team Providers Care Cell Maker Name Role Phone Janel Snow MD Primary Care Physici an Franko Thakur Attending Clinician Unavailable Corwin Claros Attending Clinician Unav Corwin Perry Attending Clinician Unav JANEL Ding Attending Clinician Miriam RIVKA Kaur Attending Clinician RIVKA Thurman Attending Clinician MANISHA Ordoñez Attending Clinician Unavailable MANISHA NORRIS Attending Clinician Unavailable BillyMrs Amanda go Attending Clinician Unavailab le Doctor Unassigned, Red [place] Attending Clinician U sabina Snow MD, Janel Draper Attending Clinician FRANKO THAKUR Attending Clinician Unavai shanika David Merino DO M Attending Clinician [phone] Pcp-Lab Attending Clinician Unavailable MANSIHA NORRIS Attending Clinician Unavailable SHALINI ALLEN Attending Clinician UnavailFranko David MD Attending Clinician + [phone] Rosales Chiu PA-C Attending Clinician [phone] ROSALES CHIU Attending Clinician Unavailable Lab, Ang - Db Attending Clinician Unavailable Umberto Saul MD Attending Clinician [phone] BABITA SALDANA Attending Clinician Unavailable BABITA SALDANA Attending Clinician Unavailable Jeane Pruett Attending Clinician [phone] LICO WHITE Attending Clinician Unavailable LICO WHITE Attending Clinician Unavailable SUNIL NAQVI Attending Clinician Unavailable Leela Bonilla MD Attending Clinician + [phone] Guerita Alonso MD Attending Clinician [phone] Dixie Bhardwaj Attending Clinician [phone] DIXIE ALANIS Attending Clinician Unavailable Bandar MAIN, Kasandra Attending Clinician Unavailable UMBERTO ASUL Attending Clinician UnavailDinh Nicholson CRNA Attending Clinician [phone] Heriberto Vyas MD Attending Clinicia n Only, Adc Test Attending Clinician Unavailable Pob, Adc Lab Main Attending Clinician UnavailGee Benitez PT, Donna Attending Clinician Un available Buddy Mujica MD Attending Clinician [phone] BUDDY MUJICA Attending Clinician Unavailable Faith Hall MA Attending Clinician Unavail able GUERITA ALONSO Attending Clinician Unavailable LEELA BONILLA Attending Clinician UnavailLEELA Kwok Attending Clinician Unavaila yesenia GUEVARA, Teresa Attending Clinician Unava ilable 1, Adc Sleep Lab Bed Attending Clinician Unavail Anderson Benavides MD Attending Clinician [phone] Andry Dinero Attending Clinician Unavailab Andry Ro Attending Clinician Unavailab Corwin Heard Admitting Clinician Unav MANISHA Mccabe Admitting Clinician Unavailable UMBERTO SAUL Admitting Clinician UnavailUmberto Toussaint MD Admitting Clinician [phone] BUDDY MUJICA Admitting Clinician Unavailable Payers Payer Name Policy Type Policy Number Effective Date Expirati on Date Source [facility] DUAL COMP HMO D SNP [id number] 2023 00:00:00 [place] [id number] 2022 00:00:00 Problems Condition Name Condition Details Condition Category Status Onset Date Resolution Date Last Treatment Date Treating Clinician Comments Source Hip osteoarthr itis Hip osteoarthr itis Disease Active 18 00:00: 00 [facility] Obesity (BMI 30-39.9) Obesity (BMI 30-39.9) Disease Active 15 00:00: 00 [facility] Primary osteoarthr itis of right hip Primary osteoarthr itis of right hip Disease Active 01-13 00:00: 00 Overview: Formattin g of this note might be different from the original. Added automatic ally from request for surgery [id number] [facility] Type 2 diabetes mellitus without complicati on, without long-term current use of insulin Type 2 diabetes mellitus without complicati on, without long-term current use of insulin Disease Active 03-18 00:00: 00 [facility] Thyroid nodule Thyroid nodule Disease Active 03-18 00:00: 00 [facility] Dyslipidem ia Dyslipidem ia Disease Active 03-18 00:00: 00 [facility] Carpal tunnel syndrome of right wrist Carpal tunnel syndrome of right wrist Disease Active 01-07 00:00: 00 [facility] Ganglion cyst Ganglion cyst Disease Active 01-07 00:00: 00 [facility] Tenosynovi tis of right hand Tenosynovi tis of right hand Disease Active 2017-07-15 00:00: 00 [facility] 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 Disease Active 2017-07 00:00: 00 [facility] Sleep apnea Sleep apnea Disease Active 2017-07 00:00: 00 [facility] Vitamin D deficiency Vitamin D deficiency Disease Active 2017-07 00:00: 00 [facility] Depressed bipolar disorder Depressed bipolar disorder Disease Active 03-04 00:00: 00 [facility] Fibromyalg ia Fibromyalg ia Disease Active 03-04 00:00: 00 [facility] Silas thyroiditi s, fibrous variant Silas thyroiditi s, fibrous variant Disease Active 03-04 00:00: 00 [facility] Rheumatoid arthritis Rheumatoid arthritis Disease Active 03-04 00:00: 00 [facility] Allergies, Adverse Reactions, Alerts Allergy Name Allergy Type Status Severity Reaction(s) Onset Date Inactive Date Treating Clinician Comments Source Tramadol Propensi ty to adverse reaction s Active Itching 0 01-05 00:00: 00 [facility] TRAMADOL DRUG INGREDI Active ITCHING 0 01-05 00:00: 00 [facility] EDOXABAN TOSYLATE DRUG INGREDI Active High Rash 2020-0 -20 00:00: 00 [facility] DULOXETI NE HCL DRUG INGREDI Active Med Rash 2020-0 -20 00:00: 00 [facility] MILNACIP RAN HCL DRUG INGREDI Active Med Other-Cmnt 2020-0 -20 00:00: 00 [facility] Duloxeti ne Hcl Drug Allergy Active Rash 2020-0 -20 00:00: 00 [facility] Edoxaban Tosylate Drug Allergy Active Rash 2020-0 -20 00:00: 00 [facility] Milnacip ran Hcl Drug Allergy Active Other - See comments 02-02 00:00: 00 [facility] lactose DA Active U 01-31 00:00: 00 [facility] duloxeti ne DA Active DC 01-31 00:00: 00 [facility] Drug Active Medical [facility] Drug Active [facility] Drug Active Medical [facility] Drug Active Medical [facility] Drug Active Medical [facility] Drug Active Medical [facility] Social History Social Habit Start Date Stop Date Quantity Comments Source Gender identity [facility] Alcohol intake 2023-06-14 00:00:00 2023-06-14 00:00:00 Current drinker of alcohol (finding) [facility] Exposure to SARS-CoV-2 (event) 2022-12-29 00:00:00 2023-01-08 11:26:00 Not sure [facility] History of Social function 2022-12-08 00:00:00 2022-12-08 00:00:00 [facility] History SDOH Alcohol Frequency 2022-12-06 00:00:00 2022-12-06 00:00:00 2 [facility] History SDOH Alcohol Std Drinks 2022-12-06 00:00:00 2022-12-06 00:00:00 1 [facility] History SDOH Alcohol Binge 2022-12-06 00:00:00 2022-12-06 00:00:00 1 [facility] History SDOH Social Connections Phone 2022-12-06 00:00:00 2022-12-06 00:00:00 5 [facility] History SDOH Social Connections Get Together 2022-12-06 00:00:00 2022-12-06 00:00:00 5 [facility] History SDOH Social Connections Confucianist 2022-12-06 00:00:00 2022-12-06 00:00:00 98 [facility] History SDOH Social Connections Membership 2022-12-06 00:00:00 2022-12-06 00:00:00 1 [facility] History SDOH Social Connections Meetings 2022-12-06 00:00:00 2022-12-06 00:00:00 3 [facility] History SDOH Social Connections Living 2022-12-06 00:00:00 2022-12-06 00:00:00 5 [facility] History SDOH Physical Activity DPW 2022-12-06 00:00:00 2022-12-06 00:00:00 0 [facility] History SDOH Physical Activity MPS 2022-12-06 00:00:00 2022-12-06 00:00:00 0 [facility] History SDOH Stress 2022-12-06 00:00:00 2022-12-06 00:00:00 3 [facility] History SDOH Financial 2022-12-06 00:00:00 2022-12-06 00:00:00 4 [facility] History SDOH Transport Med 2022-12-06 00:00:00 2022-12-06 00:00:00 2 [facility] History SDOH Transport Non-Med 2022-12-06 00:00:00 2022-12-06 00:00:00 2 [facility] History SDOH Housing Unable to Pay 2022-12-06 00:00:00 2022-12-06 00:00:00 2 [facility] History SDOH Housing Places Lived 2022-12-06 00:00:00 2022-12-06 00:00:00 1 [facility] History SDOH Housing Homeless Last Year 2022-12-06 00:00:00 2022-12-06 00:00:00 2 [facility] Tobacco Comment 2022-01-25 00:00:00 2022-01-25 00:00:00 occasional [facility] Cigarettes smoked current (pack per day) - Reported 2022-01-25 00:00:00 2022-01-25 00:00:00 [facility] Cigarette pack-years 2022-01-25 00:00:00 2022-01-25 00:00:00 [facility] Tobacco use and exposure 2022-01-25 00:00:00 2022-01-25 00:00:00 User of smokeless tobacco [facility] Alcohol Comment 2021-02-02 00:00:00 2021-02-02 00:00:00 socially [facility] History of tobacco use 1993-02-02 00:00:00 Cigarette Smoker [facility] Sex Assigned At 1965 00:00:00 1965 00:00:00 [facility] Smoking Status Start Date Stop Date Source Ex-smoker 2022-01-25 00:00:00 2022-01-25 00:00:00 [facility] Medications Ordered Medication Name Filled Medication Name Start Date Stop Date Current Medication? Ordering Clinician Indication Dosage Frequency Signature (SIG) Comments Components Source gabapentin 300 mg capsule 2022-07 00:00: 00 Yes [id number] 600mg Take 2 capsules by mouth in the morning and 2 capsules at noon and 2 capsules in the evening. [facility] adalimumab (HUMIRA,CF, PEN) 40 mg/0.4 mL injection 2022-07 00:00: 00 Yes [id number] 40mg inject 1 Pen under the skin every 14 (fourteen) days. [facility] gabapentin 300 mg capsule 2022-07 00:00: 00 Yes [id number] 600mg Take 2 capsules by mouth in the morning and 2 capsules at noon and 2 capsules in the evening. [facility] doxycycline hyclate 100 mg capsule 2022-07 00:00: 00 06-22 05:59 :00 Yes [id number] 100mg Take 1 capsule by mouth every 12 (twelve) hours for 7 days. [facility] doxycycline hyclate 100 mg capsule 2022-07 00:00: 00 06-22 05:59 :00 Yes [id number] 100mg Take 1 capsule by mouth every 12 (twelve) hours for 7 days. [facility] doxycycline hyclate 100 mg capsule 2022-07 00:00: 00 06-22 05:59 :00 Yes [id number] 100mg Take 1 capsule by mouth every 12 (twelve) hours for 7 days. [facility] hydroxychlo roquine (PLAQUENIL) 200 mg tablet 2022-07 00:00: 00 Yes [id number] 400mg Take 2 tablets by mouth in the morning. [facility] hydroxychlo roquine (PLAQUENIL) 200 mg tablet 2022-07 00:00: 00 Yes [id number] 400mg Take 2 tablets by mouth in the morning. [facility] hydroxychlo roquine (PLAQUENIL) 200 mg tablet 2022-07 00:00: 00 Yes [id number] 400mg Take 2 tablets by mouth in the morning. [facility] hydroxychlo roquine (PLAQUENIL) 200 mg tablet 2022-07 00:00: 00 Yes [id number] 400mg Take 2 tablets by mouth in the morning. [facility] hydroxychlo roquine (PLAQUENIL) 200 mg tablet 2022-07 00:00: 00 Yes [id number] 400mg Take 2 tablets by mouth in the morning. [facility] hydroxychlo roquine (PLAQUENIL) 200 mg tablet 2022-07 00:00: 00 Yes [id number] 400mg Take 2 tablets by mouth in the morning. [facility] hydroxychlo roquine (PLAQUENIL) 200 mg tablet 2022-07 00:00: 00 Yes [id number] 400mg Take 2 tablets by mouth in the morning. [facility] hydroxychlo roquine (PLAQUENIL) 200 mg tablet 2022-07 00:00: 00 Yes [id number] 400mg Take 2 tablets by mouth in the morning. [facility] SERTraline 50 mg tablet 2022-07 00:00: 00 Yes 50mg Take 1 tablet by mouth at bedtime. [facility] SERTraline 50 mg tablet 2022-07 00:00: 00 Yes 50mg Take 1 tablet by mouth at bedtime. [facility] SERTraline 50 mg tablet 2022-07 00:00: 00 Yes 50mg Take 1 tablet by mouth at bedtime. [facility] SERTraline 50 mg tablet 2022-07 00:00: 00 Yes 50mg Take 1 tablet by mouth at bedtime. [facility] SERTraline 50 mg tablet 2022-07 00:00: 00 Yes 50mg Take 1 tablet by mouth at bedtime. [facility] SERTraline 50 mg tablet 2022-07 00:00: 00 Yes 50mg Take 1 tablet by mouth at bedtime. [facility] SERTraline 50 mg tablet 2022-07 00:00: 00 Yes 50mg Take 1 tablet by mouth at bedtime. [facility] minoxidiL 2.5 mg tablet 2022-07 0 00:00: 00 Yes 2.5mg Take 1 tablet by mouth in the morning. [facility] minoxidiL 2.5 mg tablet 2022-07 0 00:00: 00 Yes 2.5mg Take 1 tablet by mouth in the morning. [facility] minoxidiL 2.5 mg tablet 2022-07 0 00:00: 00 Yes 2.5mg Take 1 tablet by mouth in the morning. [facility] minoxidiL 2.5 mg tablet 2022-07 0 00:00: 00 Yes 2.5mg Take 1 tablet by mouth in the morning. [facility] minoxidiL 2.5 mg tablet 2022-07 0 00:00: 00 Yes 2.5mg Take 1 tablet by mouth in the morning. [facility] minoxidiL 2.5 mg tablet 2022-07 0 00:00: 00 Yes 2.5mg Take 1 tablet by mouth in the morning. [facility] minoxidiL 2.5 mg tablet 2022-07 0- 00:00: 00 Yes 2.5mg Take 1 tablet by mouth in the morning. [facility] OZEMPIC 1 mg/dose (4 mg/3 mL) PnIj 2022-0 03-24 00:00: 00 Yes 1mg inject 1 mg under the skin weekly. [facility] OZEMPIC 1 mg/dose (4 mg/3 mL) PnIj 2022-0 03-24 00:00: 00 Yes 1mg inject 1 mg under the skin weekly. [facility] mg/dose (4 mg/3 mL) PnIj 0 03-24 00:00: 00 Yes 1mg inject 1 mg under the skin weekly. [facility] OZ[facility] 1 mg/dose (4 mg/3 mL) PnIj 2022-0 03-24 00:00: 00 Yes 1mg inject 1 mg under the skin weekly. [facility] OZEM[facility]IC 1 mg/dose (4 mg/3 mL) PnIj 2022-0 03-24 00:00: 00 Yes 1mg inject 1 mg under the skin weekly. [facility] OZEMPIC 1 mg/dose (4 mg/3 mL) PnIj 2022-0 03-24 00:00: 00 Yes 1mg inject 1 mg under the skin weekly. [facility] OZEMPIC 1 mg/dose (4 mg/3 mL) PnIj 2022-0 03-24 00:00: 00 Yes 1mg inject 1 mg under the skin weekly. [facility] GABAPENTIN 300 mg capsule 2022-0 03-23 00:00: 00 Yes [id number] TAKE 1 CAPSULE BY MOUTH IN THE MORNING AND AT NOON AND IN THE EVENING [facility] GABAPENTIN 300 mg capsule 2022-0 03-23 00:00: 00 Yes [id number] TAKE 1 CAPSULE BY MOUTH IN THE MORNING AND AT NOON AND IN THE EVENING [facility] GABAPENTIN 300 mg capsule 2022-0 03-23 00:00: 00 Yes [id number] TAKE 1 CAPSULE BY MOUTH IN THE MORNING AND AT NOON AND IN THE EVENING [facility] adalimumab (HUMIRA,CF, PEN) 40 mg/0.4 mL injection 2022-0 03-23 00:00: 00 Yes [id number] 40mg inject 1 Pen under the skin every 14 (fourteen) days. [facility] GABAPENTIN 300 mg capsule 2022-0 03-23 00:00: 00 Yes [id number] TAKE 1 CAPSULE BY MOUTH IN THE MORNING AND AT NOON AND IN THE EVENING [facility] adalimumab (HUMIRA,CF, PEN) 40 mg/0.4 mL injection 2022-0 03-23 00:00: 00 Yes [id number] 40mg inject 1 Pen under the skin every 14 (fourteen) days. [facility] GABAPENTIN 300 mg capsule 2022-0 03-23 00:00: 00 Yes [id number] TAKE 1 CAPSULE BY MOUTH IN THE MORNING AND AT NOON AND IN THE EVENING [facility] adalimumab (HUMIRA,CF, PEN) 40 mg/0.4 mL injection 2022-0 03-23 00:00: 00 Yes [id number] 40mg inject 1 Pen under the skin every 14 (fourteen) days. [facility] GABAPENTIN 300 mg capsule 2022-0 03-23 00:00: 00 Yes [id number] TAKE 1 CAPSULE BY MOUTH IN THE MORNING AND AT NOON AND IN THE EVENING [facility] adalimumab (HUMIRA,CF, PEN) 40 mg/0.4 mL injection 2022-0 03-23 00:00: 00 Yes [id number] 40mg inject 1 Pen under the skin every 14 (fourteen) days. [facility] GABAPENTIN 300 mg capsule 2022-0 03-23 00:00: 00 Yes [id number] TAKE 1 CAPSULE BY MOUTH IN THE MORNING AND AT NOON AND IN THE EVENING [facility] adalimumab (HUMIRA,CF, PEN) 40 mg/0.4 mL injection 2022-0 03-23 00:00: 00 Yes [id number] 40mg inject 1 Pen under the skin every 14 (fourteen) days. [facility] GABAPENTIN 300 mg capsule 2022-0 03-23 00:00: 00 Yes [id number] TAKE 1 CAPSULE BY MOUTH IN THE MORNING AND AT NOON AND IN THE EVENING [facility] adalimumab (HUMIRA,CF, PEN) 40 mg/0.4 mL injection 2022-0 03-23 00:00: 00 Yes [id number] 40mg inject 1 Pen under the skin every 14 (fourteen) days. [facility] GABAPENTIN 300 mg capsule 2022-0 03-23 00:00: 00 Yes [id number] TAKE 1 CAPSULE BY MOUTH IN THE MORNING AND AT NOON AND IN THE EVENING [facility] adalimumab (HUMIRA,CF, PEN) 40 mg/0.4 mL injection 2022-0 03-23 00:00: 00 Yes [id number] 40mg inject 1 Pen under the skin every 14 (fourteen) days. [facility] GABAPENTIN 300 mg capsule 0 03-23 00:00: 00 Yes [id number] TAKE 1 CAPSULE BY MOUTH IN THE MORNING AND AT NOON AND IN THE EVENING [facility] adalimumab (HUMIRA,CF, PEN) 40 mg/0.4 mL injection 2022-0 03-23 00:00: 00 Yes [id number] 40mg inject 1 Pen under the skin every 14 (fourteen) days. [facility] GABAPENTIN 300 mg capsule 2022-0 03-23 00:00: 00 Yes [id number] TAKE 1 CAPSULE BY MOUTH IN THE MORNING AND AT NOON AND IN THE EVENING [facility] adalimumab (HUMIRA,CF, PEN) 40 mg/0.4 mL injection 2022-0 03-23 00:00: 00 Yes [id number] 40mg inject 1 Pen under the skin every 14 (fourteen) days. [facility] GABAPENTIN 300 mg capsule 2022-0 03-23 00:00: 00 Yes [id number] TAKE 1 CAPSULE BY MOUTH IN THE MORNING AND AT NOON AND IN THE EVENING [facility] adalimumab (HUMIRA,CF, PEN) 40 mg/0.4 mL injection 2022-0 03-23 00:00: 00 Yes [id number] 40mg inject 1 Pen under the skin every 14 (fourteen) days. [facility] GABAPENTIN 300 mg capsule 2022-0 03-23 00:00: 00 Yes [id number] TAKE 1 CAPSULE BY MOUTH IN THE MORNING AND AT NOON AND IN THE EVENING [facility] adalimumab (HUMIRA,CF, PEN) 40 mg/0.4 mL injection 2022-0 03-23 00:00: 00 Yes [id number] 40mg inject 1 Pen under the skin every 14 (fourteen) days. [facility] GABAPENTIN 300 mg capsule 3-0 03-23 00:00: 00 Yes [id number] TAKE 1 CAPSULE BY MOUTH IN THE MORNING AND AT NOON AND IN THE EVENING [facility] adalimumab (HUMIRA,CF, PEN) 40 mg/0.4 mL injection 2022-0 03-23 00:00: 00 Yes [id number] 40mg inject 1 Pen under the skin every 14 (fourteen) days. [facility] GABAPENTIN 300 mg capsule 2022-0 03-23 00:00: 00 Yes [id number] TAKE 1 CAPSULE BY MOUTH IN THE MORNING AND AT NOON AND IN THE EVENING [facility] adalimumab (HUMIRA,CF, PEN) 40 mg/0.4 mL injection 2022-0 03-23 00:00: 00 Yes [id number] 40mg inject 1 Pen under the skin every 14 (fourteen) days. [facility] GABAPENTIN 300 mg capsule 2022-0 03-23 00:00: 00 Yes [id number] TAKE 1 CAPSULE BY MOUTH IN THE MORNING AND AT NOON AND IN THE EVENING [facility] adalimumab (HUMIRA,CF, PEN) 40 mg/0.4 mL injection 2022-0 03-23 00:00: 00 Yes [id number] 40mg inject 1 Pen under the skin every 14 (fourteen) days. [facility] GABAPENTIN 300 mg capsule 2022-0 03-23 00:00: 00 Yes TAKE 1 CAPSULE BY MOUTH IN THE MORNING AND AT NOON AND IN THE EVENING [facility] adalimumab (HUMIRA,CF, PEN) 40 mg/0.4 mL injection 2022-0 03-23 00:00: 00 Yes [id number] 40mg inject 1 Pen under the skin every 14 (fourteen) days. [facility] GABAPENTIN 300 mg capsule 2022-0 03-23 00:00: 00 Yes [id number] TAKE 1 CAPSULE BY MOUTH IN THE MORNING AND AT NOON AND IN THE EVENING [facility] adalimumab (HUMIRA,CF, PEN) 40 mg/0.4 mL injection 2022-0 03-23 00:00: 00 Yes [id number] 40mg inject 1 Pen under the skin every 14 (fourteen) days. [facility] GABAPENTIN 300 mg capsule 3-0 03-23 00:00: 00 Yes [id number] TAKE 1 CAPSULE BY MOUTH IN THE MORNING AND AT NOON AND IN THE EVENING [facility] adalimumab (HUMIRA,CF, PEN) 40 mg/0.4 mL injection 2022-0 - 00:00: 00 Yes [id number] 40mg inject 1 Pen under the skin every 14 (fourteen) days. [facility] GABAPENTIN 300 mg capsule 2022-0 - 00:00: 00 Yes [id number] TAKE 1 CAPSULE BY MOUTH IN THE MORNING AND AT NOON AND IN THE EVENING [facility] adalimumab (HUMIRA,CF, PEN) 40 mg/0.4 mL injection 2022-0 03-23 00:00: 00 Yes [id number] 40mg inject 1 Pen under the skin every 14 (fourteen) days. [facility] GABAPENTIN 300 mg capsule 2022-0 - 00:00: 00 Yes [id number] TAKE 1 CAPSULE BY MOUTH IN THE MORNING AND AT NOON AND IN THE EVENING [facility] adalimumab (HUMIRA,CF, PEN) 40 mg/0.4 mL injection 2022-0 03-23 00:00: 00 Yes [id number] 40mg inject 1 Pen under the skin every 14 (fourteen) days. [facility] GABAPENTIN 300 mg capsule 2022-0 03-23 00:00: 00 Yes [id number] TAKE 1 CAPSULE BY MOUTH IN THE MORNING AND AT NOON AND IN THE EVENING [facility] adalimumab (HUMIRA,CF, PEN) 40 mg/0.4 mL injection 2022-0 03-23 00:00: 00 Yes [id number] 40mg inject 1 Pen under the skin every 14 (fourteen) days. [facility] GABAPENTIN 300 mg capsule 2022-0 03-23 00:00: 00 07-07 00:00 :00 No [id number] TAKE 1 CAPSULE BY MOUTH IN THE MORNING AND AT NOON AND IN THE EVENING [facility] GABAPENTIN 300 mg capsule 2022-0 9- 00:00: 00 07-07 00:00 :00 No [id number] TAKE 1 CAPSULE BY MOUTH IN THE MORNING AND AT NOON AND IN THE EVENING [facility] adalimumab (HUMIRA,CF, PEN) 40 mg/0.4 mL injection 2022-0 - 00:00: 00 07-04 00:00 :00 No [id number] 40mg inject 1 Pen under the skin every 14 (fourteen) days. [facility] adalimumab (HUMIRA,CF, PEN) 40 mg/0.4 mL injection 03-23 00:00: 00 07-04 00:00 :00 No [id number] 40mg inject 1 Pen under the skin every 14 (fourteen) days. [facility] adalimumab (HUMIRA,CF, PEN) 40 mg/0.4 mL injection 03-23 00:00: 00 07-04 00:00 :00 No [id number] 40mg inject 1 Pen under the skin every 14 (fourteen) days. [facility] SERTraline 100 mg tablet 0 01-09 00:00: 00 Yes [id number] 100mg Take 1 tablet by mouth in the morning. [facility] SERTraline 100 mg tablet 0 01-09 00:00: 00 Yes [id number] 100mg Take 1 tablet by mouth in the morning. [facility] [facility] S[facility]ine 100 mg tablet 0 01-09 00:00: 00 Yes [id number] 100mg Take 1 tablet by mouth in the morning. [facility] SERTraline 100 mg tablet 0 01-09 00:00: 00 Yes [id number] 100mg Take 1 tablet by mouth in the morning. [facility] SERTraline 100 mg tablet 2022-0 01-09 00:00: 00 Yes [id number] 100mg Take 1 tablet by mouth in the morning. [facility] SERTraline 100 mg tablet 2022-0 01-09 00:00: 00 Yes [id number] 100mg Take 1 tablet by mouth in the morning. [facility] SERTraline 100 mg tablet 2022-0 01-09 00:00: 00 Yes [id number] 100mg Take 1 tablet by mouth in the morning. [facility] SERTraline 100 mg tablet 2022-0 01-09 00:00: 00 Yes [id number] 100mg Take 1 tablet by mouth in the morning. [facility] SERTraline 100 mg tablet 2022-0 01-09 00:00: 00 Yes [id number] 100mg Take 1 tablet by mouth in the morning. [facility] SERTraline 100 mg tablet 2022-0 01-09 00:00: 00 Yes [id number] 100mg Take 1 tablet by mouth in the morning. [facility] SERTraline 100 mg tablet 2022-0 01-09 00:00: 00 Yes [id number] 100mg Take 1 tablet by mouth in the morning. [facility] SERTraline 100 mg tablet 2022-0 01-09 00:00: 00 Yes [id number] 100mg Take 1 tablet by mouth in the morning. [facility] SERTraline 100 mg tablet 2022-0 01-09 00:00: 00 Yes [id number] 100mg Take 1 tablet by mouth in the morning. [facility] SERTraline 100 mg tablet 0 01-09 00:00: 00 Yes [id number] 100mg Take 1 tablet by mouth in the morning. [facility] SERTraline 100 mg tablet 2022-0 01-09 00:00: 00 Yes [id number] 100mg Take 1 tablet by mouth in the morning. [facility] SERTraline 100 mg tablet 2022-0 01-09 00:00: 00 Yes [id number] 100mg Take 1 tablet by mouth in the morning. [facility] SERTraline 100 mg tablet 0 01-09 00:00: 00 Yes [id number] 100mg Take 1 tablet by mouth in the morning. [facility] SERTraline 100 mg tablet 0 01-09 00:00: 00 Yes [id number] 100mg Take 1 tablet by mouth in the morning. [facility] SERTraline 100 mg tablet 2022-0 01-09 00:00: 00 Yes [id number] 100mg Take 1 tablet by mouth in the morning. [facility] SERTraline 100 mg tablet 2022-0 01-09 00:00: 00 Yes [id number] 100mg Take 1 tablet by mouth in the morning. [facility] SERTraline 100 mg tablet 2022-0 01-09 00:00: 00 Yes [id number] 100mg Take 1 tablet by mouth in the morning. [facility] SERTraline 100 mg tablet 0 01-09 00:00: 00 Yes [id number] 100mg Take 1 tablet by mouth in the morning. [facility] SERTraline 100 mg tablet 0 01-09 00:00: 00 Yes [id number] 100mg Take 1 tablet by mouth in the morning. [facility] 0 01-09 00:00: 00 Yes [id number] 100mg Take 1 tablet by mouth in the morning. [facility] SERTraline 100 mg tablet 01-09 00:00: 00 06-14 00:00 :00 No [id number] 100mg Take 1 tablet by mouth in the morning. [facility] SERTraline 100 mg tablet 01-09 00:00: 00 06-14 00:00 :00 No [id number] 100mg Take 1 tablet by mouth in the morning. [facility] icosapent ethyL (VASCEPA) 1 gram capsule 0 01-06 00:00: 00 Yes [facility] levothyroxi ne 75 mcg tablet 0 01-06 00:00: 00 Yes [facility] icosapent ethyL (VASCEPA) 1 gram capsule 0 01-06 00:00: 00 Yes [facility] levothyroxi ne 75 mcg tablet 0 01-06 00:00: 00 Yes [facility] icosapent ethyL (VASCEPA) 1 gram capsule 0 01-06 00:00: 00 Yes [facility] levothyroxi ne 75 mcg tablet 0 01-06 00:00: 00 Yes [facility] icosapent ethyL (VASCEPA) 1 gram capsule 0 01-06 00:00: 00 Yes [facility] levothyroxi ne 75 mcg tablet 0 01-06 00:00: 00 Yes [facility] icosapent ethyL (VASCEPA) 1 gram capsule 2022-0 01-06 00:00: 00 Yes [facility] levothyroxi ne 75 mcg tablet 0 01-06 00:00: 00 Yes [facility] icosapent ethyL (VASCEPA) 1 gram capsule 01-06 00:00: 00 Yes [facility] levothyroxi ne 75 mcg tablet 0 01-06 00:00: 00 Yes [facility] icosapent ethyL (VASCEPA) 1 gram capsule 01-06 00:00: 00 Yes [facility] levothyroxi ne 75 mcg tablet 0 01-06 00:00: 00 Yes [facility] icosapent ethyL (VASCEPA) 1 gram capsule 01-06 00:00: 00 Yes [facility] levothyroxi ne 75 mcg tablet 01-06 00:00: 00 Yes [facility] icosapent ethyL (VASCEPA) 1 gram capsule 01-06 00:00: 00 Yes [facility] levothyroxi ne 75 mcg tablet 01-06 00:00: 00 Yes [facility] icosapent ethyL (VASCEPA) 1 gram capsule 01-06 00:00: 00 Yes [facility] levothyroxi ne 75 mcg tablet 01-06 00:00: 00 Yes [facility] icosapent ethyL (VASCEPA) 1 gram capsule 01-06 00:00: 00 Yes [facility] levothyroxi ne 75 mcg tablet 01-06 00:00: 00 Yes [facility] icosapent ethyL (VASCEPA) 1 gram capsule 01-06 00:00: 00 Yes [facility] levothyroxi ne 75 mcg tablet 01-06 00:00: 00 Yes [facility] icosapent ethyL (VASCEPA) 1 gram capsule 0 01-06 00:00: 00 Yes [facility] levothyroxi ne 75 mcg tablet 0 01-06 00:00: 00 Yes [facility] icosapent ethyL (VASCEPA) 1 gram capsule 0 01-06 00:00: 00 Yes [facility] levothyroxi ne 75 mcg tablet 0 01-06 00:00: 00 Yes [facility] icosapent ethyL (VASCEPA) 1 gram capsule 0 01-06 00:00: 00 Yes [facility] levothyroxi ne 75 mcg tablet 0 01-06 00:00: 00 Yes [facility] icosapent ethyL (VASCEPA) 1 gram capsule 0 01-06 00:00: 00 Yes [facility] levothyroxi ne 75 mcg tablet 0 01-06 00:00: 00 Yes [facility] icosapent ethyL (VASCEPA) 1 gram capsule 0 01-06 00:00: 00 Yes [facility] levothyroxi ne 75 mcg tablet 0 01-06 00:00: 00 Yes [facility] icosapent ethyL (VASCEPA) 1 gram capsule 0 01-06 00:00: 00 Yes [facility] levothyroxi ne 75 mcg tablet 0 01-06 00:00: 00 Yes [facility] icosapent ethyL (VASCEPA) 1 gram capsule 0 01-06 00:00: 00 Yes [facility] levothyroxi ne 75 mcg tablet 0 01-06 00:00: 00 Yes [facility] icosapent ethyL (VASCEPA) 1 gram capsule 0 01-06 00:00: 00 Yes [facility] levothyroxi ne 75 mcg tablet 0 01-06 00:00: 00 Yes [facility] icosapent ethyL (VASCEPA) 1 gram capsule 0 01-06 00:00: 00 Yes [facility] levothyroxi ne 75 mcg tablet 2022-0 01-06 00:00: 00 Yes [facility] icosapent ethyL (VASCEPA) 1 gram capsule 0 01-06 00:00: 00 Yes [facility] levothyroxi ne 75 mcg tablet 0 01-06 00:00: 00 Yes [facility] icosapent ethyL (VASCEPA) 1 gram capsule 0 01-06 00:00: 00 Yes [facility] levothyroxi ne 75 mcg tablet 0 01-06 00:00: 00 Yes [facility] icosapent ethyL (VASCEPA) 1 gram capsule 0 01-06 00:00: 00 Yes [facility] levothyroxi ne 75 mcg tablet 0 01-06 00:00: 00 Yes [facility] icosapent ethyL (VASCEPA) 1 gram capsule 0 01-06 00:00: 00 Yes 1g Take 1 capsule by mouth at bedtime. [facility] levothyroxi ne 75 mcg tablet 01-06 00:00: 00 Yes 75ug Take 1 tablet by mouth every morning. [facility] icosapent ethyL (VASCEPA) 1 gram capsule 01-06 00:00: 00 Yes 1g Take 1 capsule by mouth at bedtime. [facility] levothyroxi ne 75 mcg tablet 0 01-06 00:00: 00 Yes 75ug Take 1 tablet by mouth every morning. [facility] icosapent ethyL (VASCEPA) 1 gram capsule 01-06 00:00: 00 Yes 1g Take 1 capsule by mouth at bedtime. [facility] levothyroxi ne 75 mcg tablet 0 01-06 00:00: 00 Yes 75ug Take 1 tablet by mouth every morning. [facility] icosapent ethyL (VASCEPA) 1 gram capsule 0 01-06 00:00: 00 Yes 1g Take 1 capsule by mouth at bedtime. [facility] levothyroxi ne 75 mcg tablet 2022-0 01-06 00:00: 00 Yes 75ug Take 1 tablet by mouth every morning. [facility] icosapent ethyL (VASCEPA) 1 gram capsule 01-06 00:00: 00 Yes 1g Take 1 capsule by mouth at bedtime. [facility] levothyroxi ne 75 mcg tablet 0 01-06 00:00: 00 Yes 75ug Take 1 tablet by mouth every morning. [facility] icosapent ethyL (VASCEPA) 1 gram capsule 0 01-06 00:00: 00 Yes 1g Take 1 capsule by mouth at bedtime. [facility] levothyroxi ne 75 mcg tablet 01-06 00:00: 00 Yes 75ug Take 1 tablet by mouth every morning. [facility] icosapent ethyL (VASCEPA) 1 gram capsule 01-06 00:00: 00 Yes 1g Take 1 capsule by mouth at bedtime. [facility] levothyroxi ne 75 mcg tablet 01-06 00:00: 00 Yes 75ug Take 1 tablet by mouth every morning. [facility] hydrocortis one 2.5 % rectal cream 2022-0 12-27 00:00: 00 Yes APPLY TOPICALLY TO THE AFFECTED AREA TWICE DAILY [facility] hydrocortis one 2.5 % rectal cream 0 12-27 00:00: 00 Yes APPLY TOPICALLY TO THE AFFECTED AREA TWICE DAILY [facility] hydrocortis one 2.5 % rectal cream 2022-0 12-27 00:00: 00 Yes APPLY TOPICALLY TO THE AFFECTED AREA TWICE DAILY [facility] hydrocortis one 2.5 % rectal cream 2022-0 12-27 00:00: 00 Yes APPLY TOPICALLY TO THE AFFECTED AREA TWICE DAILY [facility] hydrocortis one 2.5 % rectal cream 2022-0 12-27 00:00: 00 Yes APPLY TOPICALLY TO THE AFFECTED AREA TWICE DAILY [facility] hydrocortis one 2.5 % rectal cream 2022-0 12-27 00:00: 00 Yes APPLY TOPICALLY TO THE AFFECTED AREA TWICE DAILY [facility] hydrocortis one 2.5 % rectal cream 2022-0 12-27 00:00: 00 Yes APPLY TOPICALLY TO THE AFFECTED AREA TWICE DAILY [facility] hydrocortis one 2.5 % rectal cream 2022-0 12-27 00:00: 00 Yes APPLY TOPICALLY TO THE AFFECTED AREA TWICE DAILY [facility] hydrocortis one 2.5 % rectal cream 2022-0 12-27 00:00: 00 Yes APPLY TOPICALLY TO THE AFFECTED AREA TWICE DAILY [facility] hydrocortis one 2.5 % rectal cream 2022-0 12-27 00:00: 00 Yes APPLY TOPICALLY TO THE AFFECTED AREA TWICE DAILY [facility] hydrocortis one 2.5 % rectal cream 2022-0 12-27 00:00: 00 Yes APPLY TOPICALLY TO THE AFFECTED AREA TWICE DAILY [facility] hydrocortis one 2.5 % rectal cream 2022-0 12-27 00:00: 00 Yes APPLY TOPICALLY TO THE AFFECTED AREA TWICE DAILY [facility] hydrocortis one 2.5 % rectal cream 2022-0 12-27 00:00: 00 Yes APPLY TOPICALLY TO THE AFFECTED AREA TWICE DAILY [facility] hydrocortis one 2.5 % rectal cream 2022-0 12-27 00:00: 00 Yes APPLY TOPICALLY TO THE AFFECTED AREA TWICE DAILY [facility] hydrocortis one 2.5 % rectal cream 2022-0 12-27 00:00: 00 Yes APPLY TOPICALLY TO THE AFFECTED AREA TWICE DAILY [facility] hydrocortis one 2.5 % rectal cream 2022-0 12-27 00:00: 00 Yes APPLY TOPICALLY TO THE AFFECTED AREA TWICE DAILY [facility] hydrocortis one 2.5 % rectal cream 2022-0 12-27 00:00: 00 Yes APPLY TOPICALLY TO THE AFFECTED AREA TWICE DAILY [facility] hydrocortis one 2.5 % rectal cream 2022-0 12-27 00:00: 00 Yes APPLY TOPICALLY TO THE AFFECTED AREA TWICE DAILY [facility] hydrocortis one 2.5 % rectal cream 2022-0 12-27 00:00: 00 Yes APPLY TOPICALLY TO THE AFFECTED AREA TWICE DAILY [facility] hydrocortis one 2.5 % rectal cream 2022-0 12-27 00:00: 00 Yes APPLY TOPICALLY TO THE AFFECTED AREA TWICE DAILY [facility] hydrocortis one 2.5 % rectal cream 12-27 00:00: 00 Yes APPLY TOPICALLY TO THE AFFECTED AREA TWICE DAILY [facility] hydrocortis one 2.5 % rectal cream 12-27 00:00: 00 Yes APPLY TOPICALLY TO THE AFFECTED AREA TWICE DAILY [facility] hydrocortis one 2.5 % rectal cream 12-27 00:00: 00 Yes APPLY TOPICALLY TO THE AFFECTED AREA TWICE DAILY [facility] hydrocortis one 2.5 % rectal cream 12-27 00:00: 00 Yes APPLY TOPICALLY TO THE AFFECTED AREA TWICE DAILY [facility] OZEMPIC 0.25 mg or 0.5 mg (2 mg/3 mL) PnIj 2022-0 12-23 00:00: 00 Yes INJECT 0.5MG UNDER THE SKIN EVERY WEEK [facility] OZEMPIC 0.25 mg or 0.5 mg (2 mg/3 mL) PnIj 2022-0 12-23 00:00: 00 Yes INJECT 0.5MG UNDER THE SKIN EVERY WEEK [facility] OZEMPIC 0.25 mg or 0.5 mg (2 mg/3 mL) PnIj 2022-0 12-23 00:00: 00 Yes INJECT 0.5MG UNDER THE SKIN EVERY WEEK [facility] OZEMPIC 0.25 mg or 0.5 mg (2 mg/3 mL) PnIj 3-0 12-23 00:00: 00 Yes INJECT 0.5MG UNDER THE SKIN EVERY WEEK [facility] OZEMPIC 0.25 mg or 0.5 mg (2 mg/3 mL) PnIj 3-0 12-23 00:00: 00 Yes INJECT 0.5MG UNDER THE SKIN EVERY WEEK [facility] OZEMPIC 0.25 mg or 0.5 mg (2 mg/3 mL) PnIj 3-0 12-23 00:00: 00 Yes INJECT 0.5MG UNDER THE SKIN EVERY WEEK [facility] OZEMPIC 0.25 mg or 0.5 mg (2 mg/3 mL) PnIj 2023-0 12-23 00:00: 00 Yes INJECT 0.5MG UNDER THE SKIN EVERY WEEK [facility] OZEMPIC 0.25 mg or 0.5 mg (2 mg/3 mL) PnIj 2023-0 12-23 00:00: 00 Yes INJECT 0.5MG UNDER THE SKIN EVERY WEEK [facility] OZEMPIC 0.25 mg or 0.5 mg (2 mg/3 mL) PnIj 2023-0 12-23 00:00: 00 Yes INJECT 0.5MG UNDER THE SKIN EVERY WEEK [facility] OZEMPIC 0.25 mg or 0.5 mg (2 mg/3 mL) PnIj 2023-0 12-23 00:00: 00 Yes INJECT 0.5MG UNDER THE SKIN EVERY WEEK [facility] OZEMPIC 0.25 mg or 0.5 mg (2 mg/3 mL) PnIj 2023-0 12-23 00:00: 00 Yes INJECT 0.5MG UNDER THE SKIN EVERY WEEK [facility] OZEMPIC 0.25 mg or 0.5 mg (2 mg/3 mL) PnIj 2023-0 12-23 00:00: 00 Yes INJECT 0.5MG UNDER THE SKIN EVERY WEEK [facility] OZEMPIC 0.25 mg or 0.5 mg (2 mg/3 mL) PnIj 2023-0 12-23 00:00: 00 Yes INJECT 0.5MG UNDER THE SKIN EVERY WEEK [facility] OZEMPIC 0.25 mg or 0.5 mg (2 mg/3 mL) PnIj 2023-0 12-23 00:00: 00 Yes INJECT 0.5MG UNDER THE SKIN EVERY WEEK [facility] OZEMPIC 0.25 mg or 0.5 mg (2 mg/3 mL) PnIj 2023-0 12-23 00:00: 00 Yes INJECT 0.5MG UNDER THE SKIN EVERY WEEK [facility] OZEMPIC 0.25 mg or 0.5 mg (2 mg/3 mL) PnIj 2023-0 12-23 00:00: 00 Yes INJECT 0.5MG UNDER THE SKIN EVERY WEEK [facility] OZEMPIC 0.25 mg or 0.5 mg (2 mg/3 mL) PnIj 2023-0 12-23 00:00: 00 Yes INJECT 0.5MG UNDER THE SKIN EVERY WEEK [facility] OZEMPIC 0.25 mg or 0.5 mg (2 mg/3 mL) PnIj 2022-0 12-23 00:00: 00 Yes INJECT 0.5MG UNDER THE SKIN EVERY WEEK [facility] OZEMPIC 0.25 mg or 0.5 mg (2 mg/3 mL) PnIj 2022-0 12-23 00:00: 00 Yes INJECT 0.5MG UNDER THE SKIN EVERY WEEK [facility] OZEMPIC 0.25 mg or 0.5 mg (2 mg/3 mL) PnIj 3-0 12-23 00:00: 00 Yes INJECT 0.5MG UNDER THE SKIN EVERY WEEK [facility] OZEMPIC 0.25 mg or 0.5 mg (2 mg/3 mL) PnIj 3-0 12-23 00:00: 00 Yes INJECT 0.5MG UNDER THE SKIN EVERY WEEK [facility] OZEMPIC 0.25 mg or 0.5 mg (2 mg/3 mL) PnIj 3-0 12-23 00:00: 00 Yes INJECT 0.5MG UNDER THE SKIN EVERY WEEK [facility] OZEMPIC 0.25 mg or 0.5 mg (2 mg/3 mL) PnIj 3-0 12-23 00:00: 00 Yes INJECT 0.5MG UNDER THE SKIN EVERY WEEK [facility] OZEMPIC 0.25 mg or 0.5 mg (2 mg/3 mL) PnIj 3-0 12-23 00:00: 00 Yes INJECT 0.5MG UNDER THE SKIN EVERY WEEK [facility] hydrOXYchlo roQUINE (PLAQUENIL) 200 mg tablet 2022-0 17 00:00: 00 Yes [id number] 400mg Take 2 tablets by mouth in the morning. [facility] hydrOXYchlo roQUINE (PLAQUENIL) 200 mg tablet 2022-0 -17 00:00: 00 Yes [id number] 400mg Take 2 tablets by mouth in the morning. [facility] hydrOXYchlo roQUINE (PLAQUENIL) 200 mg tablet 2022-0 -17 00:00: 00 Yes [id number] 400mg Take 2 tablets by mouth in the morning. [facility] hydrOXYchlo roQUINE (PLAQUENIL) 200 mg tablet 2022-0 -17 00:00: 00 Yes [id number] 400mg Take 2 tablets by mouth in the morning. [facility] hydrOXYchlo roQUINE (PLAQUENIL) 200 mg tablet 2022-0 -17 00:00: 00 Yes [id number] 400mg Take 2 tablets by mouth in the morning. [facility] hydrOXYchlo roQUINE (PLAQUENIL) 200 mg tablet 2022-0 -17 00:00: 00 Yes [id number] 400mg Take 2 tablets by mouth in the morning. [facility] hydrOXYchlo roQUINE (PLAQUENIL) 200 mg tablet 2022-0 -17 00:00: 00 Yes [id number] 400mg Take 2 tablets by mouth in the morning. [facility] hydrOXYchlo roQUINE (PLAQUENIL) 200 mg tablet 2022-0 17 00:00: 00 Yes [id number] 400mg Take 2 tablets by mouth in the morning. [facility] hydrOXYchlo roQUINE (PLAQUENIL) 200 mg tablet 2022-0 -17 00:00: 00 Yes [id number] 400mg Take 2 tablets by mouth in the morning. [facility] hydrOXYchlo roQUINE (PLAQUENIL) 200 mg tablet 2022-0 -17 00:00: 00 Yes [id number] 400mg Take 2 tablets by mouth in the morning. [facility] hydrOXYchlo roQUINE (PLAQUENIL) 200 mg tablet 2022-0 -17 00:00: 00 Yes [id number] 400mg Take 2 tablets by mouth in the morning. [facility] hydrOXYchlo roQUINE (PLAQUENIL) 200 mg tablet 3-0 5-17 00:00: 00 Yes [id number] 400mg Take 2 tablets by mouth in the morning. [facility] hydrOXYchlo roQUINE (PLAQUENIL) 200 mg tablet 2022-0 -17 00:00: 00 Yes [id number] 400mg Take 2 tablets by mouth in the morning. [facility] hydrOXYchlo roQUINE (PLAQUENIL) 200 mg tablet 2022-0 -17 00:00: 00 Yes [id number] 400mg Take 2 tablets by mouth in the morning. [facility] hydrOXYchlo roQUINE (PLAQUENIL) 200 mg tablet 2022-0 -17 00:00: 00 Yes [id number] 400mg Take 2 tablets by mouth in the morning. [facility] hydrOXYchlo roQUINE (PLAQUENIL) 200 mg tablet 2022-0 -17 00:00: 00 Yes [id number] 400mg Take 2 tablets by mouth in the morning. [facility] hydrOXYchlo roQUINE (PLAQUENIL) 200 mg tablet 2022-0 -17 00:00: 00 Yes [id number] 400mg Take 2 tablets by mouth in the morning. [facility] hydrOXYchlo roQUINE (PLAQUENIL) 200 mg tablet 2022-0 17 00:00: 00 Yes [id number] 400mg Take 2 tablets by mouth in the morning. [facility] hydrOXYchlo roQUINE (PLAQUENIL) 200 mg tablet 2022-0 -17 00:00: 00 Yes [id number] 400mg Take 2 tablets by mouth in the morning. [facility] hydrOXYchlo roQUINE (PLAQUENIL) 200 mg tablet 2022-0 -17 00:00: 00 Yes [id number] 400mg Take 2 tablets by mouth in the morning. [facility] hydrOXYchlo roQUINE (PLAQUENIL) 200 mg tablet 2022-0 -17 00:00: 00 Yes [id number] 400mg Take 2 tablets by mouth in the morning. [facility] hydrOXYchlo roQUINE (PLAQUENIL) 200 mg tablet 3-0 5-17 00:00: 00 Yes [id number] 400mg Take 2 tablets by mouth in the morning. [facility] hydrOXYchlo roQUINE (PLAQUENIL) 200 mg tablet 2022-0 -17 00:00: 00 Yes [id number] 400mg Take 2 tablets by mouth in the morning. [facility] hydrOXYchlo roQUINE (PLAQUENIL) 200 mg tablet 2022-0 -17 00:00: 00 Yes [id number] 400mg Take 2 tablets by mouth in the morning. [facility] hydrOXYchlo roQUINE (PLAQUENIL) 200 mg tablet 2022-0 -17 00:00: 00 Yes [id number] 400mg Take 2 tablets by mouth in the morning. [facility] hydrOXYchlo roQUINE (PLAQUENIL) 200 mg tablet 2022-0 -17 00:00: 00 Yes [id number] 400mg Take 2 tablets by mouth in the morning. [facility] hydrOXYchlo roQUINE (PLAQUENIL) 200 mg tablet 2022-0 -17 00:00: 00 Yes [id number] 400mg Take 2 tablets by mouth in the morning. [facility] hydrOXYchlo roQUINE (PLAQUENIL) 200 mg tablet 2022-0 17 00:00: 00 Yes [id number] 400mg Take 2 tablets by mouth in the morning. [facility] hydrOXYchlo roQUINE (PLAQUENIL) 200 mg tablet 2022-0 -17 00:00: 00 Yes [id number] 400mg Take 2 tablets by mouth in the morning. [facility] hydrOXYchlo roQUINE (PLAQUENIL) 200 mg tablet 2022-0 -17 00:00: 00 Yes [id number] 400mg Take 2 tablets by mouth in the morning. [facility] hydrOXYchlo roQUINE (PLAQUENIL) 200 mg tablet 2022-0 -17 00:00: 00 Yes [id number] 400mg Take 2 tablets by mouth in the morning. [facility] hydrOXYchlo roQUINE (PLAQUENIL) 200 mg tablet 3-0 5-17 00:00: 00 Yes [id number] 400mg Take 2 tablets by mouth in the morning. [facility] hydrOXYchlo roQUINE (PLAQUENIL) 200 mg tablet 0 -17 00:00: 00 Yes [id number] 400mg Take 2 tablets by mouth in the morning. [facility] hydrOXYchlo roQUINE (PLAQUENIL) 200 mg tablet 0 -17 00:00: 00 Yes [id number] 400mg Take 2 tablets by mouth in the morning. [facility] hydrOXYchlo roQUINE (PLAQUENIL) 200 mg tablet 0 -17 00:00: 00 Yes [id number] 400mg Take 2 tablets by mouth in the morning. [facility] hydrOXYchlo roQUINE (PLAQUENIL) 200 mg tablet 0 -17 00:00: 00 Yes [id number] 400mg Take 2 tablets by mouth in the morning. [facility] hydrOXYchlo roQUINE (PLAQUENIL) 200 mg tablet 0 17 00:00: 00 05-30 00:00 :00 No [id number] 400mg Take 2 tablets by mouth in the morning. [facility] adalimumab (HUMIRA,CF, PEN) 40 mg/0.4 mL injection 2022-0 11-21 00:00: 00 Yes [id number] 40mg inject 1 Pen under the skin every 14 (fourteen) days. [facility] adalimumab (HUMIRA,CF, PEN) 40 mg/0.4 mL injection 2022-0 11-21 00:00: 00 Yes [id number] 40mg inject 1 Pen under the skin every 14 (fourteen) days. [facility] adalimumab (HUMIRA,CF, PEN) 40 mg/0.4 mL injection 2022-0 -08 00:00: 00 Yes [id number] 40mg inject 1 Pen under the skin every 14 (fourteen) days. [facility] adalimumab (HUMIRA,CF, PEN) 40 mg/0.4 mL injection 2022-0 -08 00:00: 00 Yes [id number] 40mg inject 1 Pen under the skin every 14 (fourteen) days. [facility] adalimumab (HUMIRA,CF, PEN) 40 mg/0.4 mL injection 0 11-21 00:00: 00 Yes [id number] 40mg inject 1 Pen under the skin every 14 (fourteen) days. [facility] adalimumab (HUMIRA,CF, PEN) 40 mg/0.4 mL injection 0 11-21 00:00: 00 Yes [id number] 40mg inject 1 Pen under the skin every 14 (fourteen) days. [facility] adalimumab (HUMIRA,CF, PEN) 40 mg/0.4 mL injection 2022-0 11-21 00:00: 00 Yes [id number] 40mg inject 1 Pen under the skin every 14 (fourteen) days. [facility] adalimumab (HUMIRA,CF, PEN) 40 mg/0.4 mL injection 2022-0 11-21 00:00: 00 Yes [id number] 40mg inject 1 Pen under the skin every 14 (fourteen) days. [facility] adalimumab (HUMIRA,CF, PEN) 40 mg/0.4 mL injection 2022-0 11-21 00:00: 00 Yes [id number] 40mg inject 1 Pen under the skin every 14 (fourteen) days. [facility] adalimumab (HUMIRA,CF, PEN) 40 mg/0.4 mL injection 2022-0 11-21 00:00: 00 Yes [id number] 40mg inject 1 Pen under the skin every 14 (fourteen) days. [facility] adalimumab (HUMIRA,CF, PEN) 40 mg/0.4 mL injection 2022-0 11-21 00:00: 00 Yes [id number] 40mg inject 1 Pen under the skin every 14 (fourteen) days. [facility] adalimumab (HUMIRA,CF, PEN) 40 mg/0.4 mL injection 2022-0 -08 00:00: 00 Yes [id number] 40mg inject 1 Pen under the skin every 14 (fourteen) days. [facility] adalimumab (HUMIRA,CF, PEN) 40 mg/0.4 mL injection 2022-0 -08 00:00: 00 Yes [id number] 40mg inject 1 Pen under the skin every 14 (fourteen) days. [facility] adalimumab (HUMIRA,CF, PEN) 40 mg/0.4 mL injection 2022-0 5-08 00:00: 00 Yes [id number] 40mg inject 1 Pen under the skin every 14 (fourteen) days. [facility] adalimumab (HUMIRA,CF, PEN) 40 mg/0.4 mL injection 2022-0 5-08 00:00: 00 Yes [id number] 40mg inject 1 Pen under the skin every 14 (fourteen) days. [facility] adalimumab (HUMIRA,CF, PEN) 40 mg/0.4 mL injection 08 00:00: 00 Yes [id number] 40mg inject 1 Pen under the skin every 14 (fourteen) days. [facility] adalimumab (HUMIRA,CF, PEN) 40 mg/0.4 mL injection 2022--08 00:00: 00 Yes [id number] 40mg inject 1 Pen under the skin every 14 (fourteen) days. [facility] adalimumab (HUMIRA,CF, PEN) 40 mg/0.4 mL injection 08 00:00: 00 Yes [id number] 40mg inject 1 Pen under the skin every 14 (fourteen) days. [facility] adalimumab (HUMIRA,CF, PEN) 40 mg/0.4 mL injection 2022-0 08 00:00: 00 Yes [id number] 40mg inject 1 Pen under the skin every 14 (fourteen) days. [facility] adalimumab (HUMIRA,CF, PEN) 40 mg/0.4 mL injection 2022-0 -08 00:00: 00 Yes [id number] 40mg inject 1 Pen under the skin every 14 (fourteen) days. [facility] adalimumab (HUMIRA,CF, PEN) 40 mg/0.4 mL injection -08 00:00: 00 03-23 00:00 :00 No [id number] 40mg inject 1 Pen under the skin every 14 (fourteen) days. [facility] estradioL (CLIMARA) 0.025 mg/24 hr patch 2022-0 3-30 00:00: 00 Yes 1{patch } Apply 1 Patch to skin weekly. [facility] ([facility]IMARA) 0.025 mg/24 hr patch 2022-0 30 00:00: 00 Yes 1{patch } Apply 1 Patch to skin weekly. [facility] benzonatate (TESSALON PERLES) 100 mg capsule 2022-0 30 00:00: 00 Yes [id number] 100mg Take 1 capsule by mouth every 8 (eight) hours as needed for Cough. [facility] montelukast 10 mg tablet 2022-0 30 00:00: 00 Yes [id number] 10mg Take 1 tablet by mouth in the morning. [facility] estradioL (CLIMARA) 0.025 mg/24 hr patch 2022-0 10-13 00:00: 00 Yes 1{patch } Apply 1 Patch to skin weekly. [facility] benzonatate (TESSALON PERLES) 100 mg capsule 2022-0 10-13 00:00: 00 Yes [id number] 100mg Take 1 capsule by mouth every 8 (eight) hours as needed for Cough. [facility] montelukast 10 mg tablet 3-0 30 00:00: 00 Yes [id number] 10mg Take 1 tablet by mouth in the morning. [facility] estradioL (CLIMARA) 0.025 mg/24 hr patch 2022-0 10-13 00:00: 00 Yes 1{patch } Apply 1 Patch to skin weekly. [facility] benzonatate (TESSALON PERLES) 100 mg capsule 2022-0 30 00:00: 00 Yes [id number] 100mg Take 1 capsule by mouth every 8 (eight) hours as needed for Cough. [facility] montelukast 10 mg tablet 3-0 30 00:00: 00 Yes [id number] 10mg Take 1 tablet by mouth in the morning. [facility] estradioL (CLIMARA) 0.025 mg/24 hr patch 3-0 330 00:00: 00 Yes 1{patch } Apply 1 Patch to skin weekly. [facility] benzonatate (TESSALON PERLES) 100 mg capsule 3-0 3-30 00:00: 00 Yes [id number] 100mg Take 1 capsule by mouth every 8 (eight) hours as needed for Cough. [facility] montelukast 10 mg tablet 3-0 30 00:00: 00 Yes [id number] 10mg Take 1 tablet by mouth in the morning. [facility] estradioL (CLIMARA) 0.025 mg/24 hr patch 3-0 330 00:00: 00 Yes 1{patch } Apply 1 Patch to skin weekly. [facility] benzonatate (TESSALON PERLES) 100 mg capsule 2022-0 30 00:00: 00 Yes [id number] 100mg Take 1 capsule by mouth every 8 (eight) hours as needed for Cough. [facility] montelukast 10 mg tablet 2022-0 30 00:00: 00 Yes [id number] 10mg Take 1 tablet by mouth in the morning. [facility] estradioL (CLIMARA) 0.025 mg/24 hr patch 2022-0 30 00:00: 00 Yes 1{patch } Apply 1 Patch to skin weekly. [facility] benzonatate (TESSALON PERLES) 100 mg capsule 3-0 30 00:00: 00 Yes [id number] 100mg Take 1 capsule by mouth every 8 (eight) hours as needed for Cough. [facility] montelukast 10 mg tablet 3-0 30 00:00: 00 Yes [id number] 10mg Take 1 tablet by mouth in the morning. [facility] estradioL (CLIMARA) 0.025 mg/24 hr patch 3-0 30 00:00: 00 Yes 1{patch } Apply 1 Patch to skin weekly. [facility] benzonatate (TESSALON PERLES) 100 mg capsule 3-0 30 00:00: 00 Yes [id number] 100mg Take 1 capsule by mouth every 8 (eight) hours as needed for Cough. [facility] montelukast 10 mg tablet 3-0 330 00:00: 00 Yes [id number] 10mg Take 1 tablet by mouth in the morning. [facility] estradioL (CLIMARA) 0.025 mg/24 hr patch 3-0 330 00:00: 00 Yes 1{patch } Apply 1 Patch to skin weekly. [facility] estradioL (CLIMARA) 0.025 mg/24 hr patch 3-0 3-30 00:00: 00 Yes 1{patch } Apply 1 Patch to skin weekly. [facility] estradioL (CLIMARA) 0.025 mg/24 hr patch 3-0 330 00:00: 00 Yes 1{patch } Apply 1 Patch to skin weekly. [facility] estradioL (CLIMARA) 0.025 mg/24 hr patch 3-0 330 00:00: 00 Yes 1{patch } Apply 1 Patch to skin weekly. [facility] estradioL (CLIMARA) 0.025 mg/24 hr patch 3-0 330 00:00: 00 Yes 1{patch } Apply 1 Patch to skin weekly. [facility] estradioL (CLIMARA) 0.025 mg/24 hr patch 3-0 330 00:00: 00 Yes 1{patch } Apply 1 Patch to skin weekly. [facility] estradioL (CLIMARA) 0.025 mg/24 hr patch 3-0 330 00:00: 00 Yes 1{patch } Apply 1 Patch to skin weekly. [facility] estradioL (CLIMARA) 0.025 mg/24 hr patch 3-0 330 00:00: 00 Yes 1{patch } Apply 1 Patch to skin weekly. [facility] estradioL (CLIMARA) 0.025 mg/24 hr patch 3-0 330 00:00: 00 Yes 1{patch } Apply 1 Patch to skin weekly. [facility] estradioL (CLIMARA) 0.025 mg/24 hr patch 3-0 3-30 00:00: 00 Yes 1{patch } Apply 1 Patch to skin weekly. [facility] estradioL (CLIMARA) 0.025 mg/24 hr patch 3-0 3-30 00:00: 00 Yes 1{patch } Apply 1 Patch to skin weekly. [facility] estradioL (CLIMARA) 0.025 mg/24 hr patch 2023-0 3-30 00:00: 00 Yes 1{patch } Apply 1 Patch to skin weekly. [facility] estradioL (CLIMARA) 0.025 mg/24 hr patch 2022-0 330 00:00: 00 Yes 1{patch } Apply 1 Patch to skin weekly. [facility] estradioL (CLIMARA) 0.025 mg/24 hr patch 2022-0 30 00:00: 00 01-09 00:00 :00 No 1{patch } Apply 1 Patch to skin weekly. [facility] estradioL (CLIMARA) 0.025 mg/24 hr patch 2022-0 30 00:00: 00 01-09 00:00 :00 No 1{patch } Apply 1 Patch to skin weekly. [facility] gabapentin 300 mg capsule 3-0 10-11 00:00: 00 Yes [id number] 300mg Take 1 capsule by mouth in the morning and 1 capsule at noon and 1 capsule in the evening. [facility] gabapentin 300 mg capsule 3-0 10-11 00:00: 00 Yes [id number] 300mg Take 1 capsule by mouth in the morning and 1 capsule at noon and 1 capsule in the evening. [facility] gabapentin 300 mg capsule 3-0 28 00:00: 00 Yes [id number] 300mg Take 1 capsule by mouth in the morning and 1 capsule at noon and 1 capsule in the evening. [facility] gabapentin 300 mg capsule 3-0 28 00:00: 00 Yes [id number] 300mg Take 1 capsule by mouth in the morning and 1 capsule at noon and 1 capsule in the evening. [facility] gabapentin 300 mg capsule 3-0 28 00:00: 00 Yes [id number] 300mg Take 1 capsule by mouth in the morning and 1 capsule at noon and 1 capsule in the evening. [facility] gabapentin 300 mg capsule 3-0 28 00:00: 00 Yes [id number] 300mg Take 1 capsule by mouth in the morning and 1 capsule at noon and 1 capsule in the evening. [facility] gabapentin 300 mg capsule 3-0 -28 00:00: 00 Yes [id number] 300mg Take 1 capsule by mouth in the morning and 1 capsule at noon and 1 capsule in the evening. [facility] gabapentin 300 mg capsule 3-0 3-28 00:00: 00 Yes [id number] 300mg Take 1 capsule by mouth in the morning and 1 capsule at noon and 1 capsule in the evening. [facility] gabapentin 300 mg capsule 2023-0 3-28 00:00: 00 Yes [id number] 300mg Take 1 capsule by mouth in the morning and 1 capsule at noon and 1 capsule in the evening. [facility] gabapentin 300 mg capsule 2023-0 3-28 00:00: 00 Yes [id number] 300mg Take 1 capsule by mouth in the morning and 1 capsule at noon and 1 capsule in the evening. [facility] gabapentin 300 mg capsule 3-0 3-28 00:00: 00 Yes [id number] 300mg Take 1 capsule by mouth in the morning and 1 capsule at noon and 1 capsule in the evening. [facility] gabapentin 300 mg capsule 3-0 28 00:00: 00 Yes [id number] 300mg Take 1 capsule by mouth in the morning and 1 capsule at noon and 1 capsule in the evening. [facility] gabapentin 300 mg capsule 3-0 3-28 00:00: 00 Yes [id number] 300mg Take 1 capsule by mouth in the morning and 1 capsule at noon and 1 capsule in the evening. [facility] gabapentin 300 mg capsule 2023-0 3-28 00:00: 00 Yes [id number] 300mg Take 1 capsule by mouth in the morning and 1 capsule at noon and 1 capsule in the evening. [facility] gabapentin 300 mg capsule 2023-0 3-28 00:00: 00 Yes [id number] 300mg Take 1 capsule by mouth in the morning and 1 capsule at noon and 1 capsule in the evening. [facility] gabapentin 300 mg capsule 2023-0 3-28 00:00: 00 Yes [id number] 300mg Take 1 capsule by mouth in the morning and 1 capsule at noon and 1 capsule in the evening. [facility] gabapentin 300 mg capsule 2023-0 3-28 00:00: 00 Yes [id number] 300mg Take 1 capsule by mouth in the morning and 1 capsule at noon and 1 capsule in the evening. [facility] gabapentin 300 mg capsule 3-0 3-28 00:00: 00 Yes [id number] 300mg Take 1 capsule by mouth in the morning and 1 capsule at noon and 1 capsule in the evening. [facility] gabapentin 300 mg capsule 2023-0 3-28 00:00: 00 Yes [id number] 300mg Take 1 capsule by mouth in the morning and 1 capsule at noon and 1 capsule in the evening. [facility] gabapentin 300 mg capsule 2023-0 3-28 00:00: 00 Yes [id number] 300mg Take 1 capsule by mouth in the morning and 1 capsule at noon and 1 capsule in the evening. [facility] gabapentin 300 mg capsule 3-0 3-28 00:00: 00 Yes [id number] 300mg Take 1 capsule by mouth in the morning and 1 capsule at noon and 1 capsule in the evening. [facility] gabapentin 300 mg capsule 3-0 28 00:00: 00 Yes [id number] 300mg Take 1 capsule by mouth in the morning and 1 capsule at noon and 1 capsule in the evening. [facility] gabapentin 300 mg capsule 3-0 3-28 00:00: 00 Yes [id number] 300mg Take 1 capsule by mouth in the morning and 1 capsule at noon and 1 capsule in the evening. [facility] gabapentin 300 mg capsule 2023-0 3-28 00:00: 00 Yes [id number] 300mg Take 1 capsule by mouth in the morning and 1 capsule at noon and 1 capsule in the evening. [facility] gabapentin 300 mg capsule 2023-0 3-28 00:00: 00 Yes [id number] 300mg Take 1 capsule by mouth in the morning and 1 capsule at noon and 1 capsule in the evening. [facility] gabapentin 300 mg capsule 2023-0 3-28 00:00: 00 Yes [id number] 300mg Take 1 capsule by mouth in the morning and 1 capsule at noon and 1 capsule in the evening. [facility] gabapentin 300 mg capsule 2023-0 3-28 00:00: 00 Yes [id number] 300mg Take 1 capsule by mouth in the morning and 1 capsule at noon and 1 capsule in the evening. [facility] gabapentin 300 mg capsule 10-11 00:00: 00 03-23 00:00 :00 No [id number] 300mg Take 1 capsule by mouth in the morning and 1 capsule at noon and 1 capsule in the evening. [facility] gabapentin 300 mg capsule 10-11 00:00: 00 03-23 00:00 :00 No [id number] 300mg Take 1 capsule by mouth in the morning and 1 capsule at noon and 1 capsule in the evening. [facility] hydrOXYchlo roQUINE (PLAQUENIL) 200 mg tablet 0 324 00:00: 00 Yes [id number] 400mg Take 2 tablets by mouth in the morning. [facility] hydrOXYchlo roQUINE (PLAQUENIL) 200 mg tablet 0 324 00:00: 00 Yes [id number] 400mg Take 2 tablets by mouth in the morning. [facility] hydrOXYchlo roQUINE (PLAQUENIL) 200 mg tablet 2022-0 324 00:00: 00 Yes [id number] 400mg Take 2 tablets by mouth in the morning. [facility] hydrOXYchlo roQUINE (PLAQUENIL) 200 mg tablet 2022-0 324 00:00: 00 Yes [id number] 400mg Take 2 tablets by mouth in the morning. [facility] hydrOXYchlo roQUINE (PLAQUENIL) 200 mg tablet 2022-0 324 00:00: 00 Yes [id number] 400mg Take 2 tablets by mouth in the morning. [facility] hydrOXYchlo roQUINE (PLAQUENIL) 200 mg tablet 2022-0 3-24 00:00: 00 Yes [id number] 400mg Take 2 tablets by mouth in the morning. [facility] hydrOXYchlo roQUINE (PLAQUENIL) 200 mg tablet 2022-0 3-24 00:00: 00 Yes [id number] 400mg Take 2 tablets by mouth in the morning. [facility] hydrOXYchlo roQUINE (PLAQUENIL) 200 mg tablet 0 324 00:00: 00 Yes [id number] 400mg Take 2 tablets by mouth in the morning. [facility] hydrOXYchlo roQUINE (PLAQUENIL) 200 mg tablet 0 24 00:00: 00 Yes [id number] 400mg Take 2 tablets by mouth in the morning. [facility] hydrOXYchlo roQUINE (PLAQUENIL) 200 mg tablet 0 24 00:00: 00 Yes [id number] 400mg Take 2 tablets by mouth in the morning. [facility] hydrOXYchlo roQUINE (PLAQUENIL) 200 mg tablet 0 10-07 00:00: 00 Yes [id number] 400mg Take 2 tablets by mouth in the morning. [facility] hydrOXYchlo roQUINE (PLAQUENIL) 200 mg tablet 10-07 00:00: 00 Yes [id number] 400mg Take 2 tablets by mouth in the morning. [facility] hydrOXYchlo roQUINE (PLAQUENIL) 200 mg tablet 0 10-07 00:00: 00 Yes [id number] 400mg Take 2 tablets by mouth in the morning. [facility] hydrOXYchlo roQUINE (PLAQUENIL) 200 mg tablet 0 24 00:00: 00 Yes [id number] 400mg Take 2 tablets by mouth in the morning. [facility] hydrOXYchlo roQUINE (PLAQUENIL) 200 mg tablet 0 24 00:00: 00 11-30 00:00 :00 No [id number] 400mg Take 2 tablets by mouth in the morning. [facility] hydrOXYchlo roQUINE (PLAQUENIL) 200 mg tablet 24 00:00: 00 10-07 00:00 :00 No [id number] 200mg Take 1 tablet by mouth in the morning and 1 tablet in the evening. [facility] hydrOXYchlo roQUINE (PLAQUENIL) 200 mg tablet 0 3-24 00:00: 00 10-07 00:00 :00 No [id number] 200mg Take 1 tablet by mouth in the morning and 1 tablet in the evening. [facility] estradioL (MINIVELLE) 0.025 mg/24 hr patch 2022-0 10-06 00:00: 00 Yes [id number] 1{patch } Apply 1 Patch to skin 2 (two) times per week. [facility] (MINIVELLE[facility] 0.025 mg/24 hr patch 2022-0 10-06 00:00: 00 Yes [id number] 1{patch } Apply 1 Patch to skin 2 (two) times per week. [facility] estradioL (MINIVELLE) 0.025 mg/24 hr patch 2022-0 10-06 00:00: 00 Yes [id number] 1{patch } Apply 1 Patch to skin 2 (two) times per week. [facility] estradioL (MINIVELLE) 0.025 mg/24 hr patch 2022-0 10-06 00:00: 00 Yes [id number] 1{patch } Apply 1 Patch to skin 2 (two) times per week. [facility] estradioL (MINIVELLE) 0.025 mg/24 hr patch 2022-0 10-06 00:00: 00 Yes [id number] 1{patch } Apply 1 Patch to skin 2 (two) times per week. [facility] estradioL (MINIVELLE) 0.025 mg/24 hr patch 2022-0 10-06 00:00: 00 Yes [id number] 1{patch } Apply 1 Patch to skin 2 (two) times per week. [facility] (MINIVELLE) 0.025 mg/24 hr patch 2022-0 10-06 00:00: 00 Yes [id number] 1{patch } Apply 1 Patch to skin 2 (two) times per week. [facility] estradioL (MINIVELLE) 0.025 mg/24 hr patch 2022-0 10-06 00:00: 00 Yes [id number] 1{patch } Apply 1 Patch to skin 2 (two) times per week. [facility] estradioL (MINIVELLE) 0.025 mg/24 hr patch 202210-06 00:00: 00 10-13 00:00 :00 No [id number] 1{patch } Apply 1 Patch to skin 2 (two) times per week. [facility] estradioL (MINIVELLE) 0.025 mg/24 hr patch 10-06 00:00: 00 10-13 00:00 :00 No [id number] 1{patch } Apply 1 Patch to skin 2 (two) times per week. [facility] Cholecalcif mary, Vitamin D3, (VITAMIN D3) 50 mcg (2,000 unit) tablet 09-28 00:00: 00 Yes [facility] Cholecalcif mary, Vitamin D3, (VITAMIN D3) 50 mcg (2,000 unit) tablet 09-28 00:00: 00 Yes [facility] Cholecalcif mary, Vitamin D3, (VITAMIN D3) 50 mcg (2,000 unit) tablet 09-28 00:00: 00 Yes [facility] Cholecalcif mary, Vitamin D3, (VITAMIN D3) 50 mcg (2,000 unit) tablet 09-28 00:00: 00 Yes [facility] Cholecalcif mary, Vitamin D3, (VITAMIN D3) 50 mcg (2,000 unit) tablet 09-28 00:00: 00 Yes [facility] Cholecalcif mary, Vitamin D3, (VITAMIN D3) 50 mcg (2,000 unit) tablet 09-28 00:00: 00 Yes [facility] Cholecalcif mary, Vitamin D3, (VITAMIN D3) 50 mcg (2,000 unit) tablet 09-28 00:00: 00 Yes [facility] Cholecalcif mary, Vitamin D3, (VITAMIN D3) 50 mcg (2,000 unit) tablet 09-28 00:00: 00 Yes [facility] Cholecalcif mary, Vitamin D3, (VITAMIN D3) 50 mcg (2,000 unit) tablet 09-28 00:00: 00 Yes [facility] Cholecalcif mary, Vitamin D3, (VITAMIN D3) 50 mcg (2,000 unit) tablet 09-28 00:00: 00 Yes [facility] Cholecalcif mary, Vitamin D3, (VITAMIN D3) 50 mcg (2,000 unit) tablet 09-28 00:00: 00 Yes [facility], Vitamin D3, (VITAMIN D3) 50 mcg (2,000 unit) tablet 09-28 00:00: 00 Yes [facility] Cholecalcif mary, Vitamin D3, (VITAMIN D3) 50 mcg (2,000 unit) tablet 09-28 00:00: 00 Yes [facility] Cholecalcif m[facility], Vitamin D3, (VITAMIN D3) 50 mcg (2,000 unit) tablet 09-28 00:00: 00 Yes [facility] Cholecalcif m[facility], Vitamin D3, (VITAMIN D3) 50 mcg (2,000 unit) tablet 09-28 00:00: 00 Yes [facility] Cholecalcif mary, Vitamin D3, (VITAMIN D3) 50 mcg (2,000 unit) tablet 09-28 00:00: 00 Yes [facility] Cholecalcif [facility], Vitamin D3, (VITAMIN D3) 50 mcg (2,000 unit) tablet 09-28 00:00: 00 Yes [facility] Cholecalcif mary, Vitamin D3, (VITAMIN D3) 50 mcg (2,000 unit) tablet 09-28 00:00: 00 Yes [facility] Cholecalcif mary, Vitamin D3, (VITAMIN D3) 50 mcg (2,000 unit) tablet 09-28 00:00: 00 Yes [facility] Cholecalcif mary, Vitamin D3, (VITAMIN D3) 50 mcg (2,000 unit) tablet 09-28 00:00: 00 Yes [facility] Cholecalcif mary, Vitamin D3, (VITAMIN D3) 50 mcg (2,000 unit) tablet 09-28 00:00: 00 Yes [facility] Cholecalcif [facility], Vitamin D3, (VITAMIN D3) 50 mcg (2,000 unit) tablet 09-28 00:00: 00 Yes [facility] Cholecalcif mary, Vitamin D3, (VITAMIN D3) 50 mcg (2,000 unit) tablet 09-28 00:00: 00 Yes [facility] Cholecalcif mary, Vitamin D3, (VITAMIN D3) 50 mcg (2,000 unit) tablet 09-28 00:00: 00 Yes [facility] Cholecalcif mary, Vitamin D3, (VITAMIN D3) 50 mcg (2,000 unit) tablet 09-28 00:00: 00 Yes 2000U Take 1 tablet by mouth in the morning. [facility] Cholecalcif mary, Vitamin D3, (VITAMIN D3) 50 mcg (2,000 unit) tablet 09-28 00:00: 00 Yes 2000U Take 1 tablet by mouth in the morning. [facility] Cholecalcif mary, Vitamin D3, (VITAMIN D3) 50 mcg (2,000 unit) tablet 09-28 00:00: 00 Yes 2000U Take 1 tablet by mouth in the morning. [facility] Cholecalcif mary, Vitamin D3, (VITAMIN D3) 50 mcg (2,000 unit) tablet 09-28 00:00: 00 Yes 2000U Take 1 tablet by mouth in the morning. [facility] Cholecalcif mary, Vitamin D3, (VITAMIN D3) 50 mcg (2,000 unit) tablet 09-28 00:00: 00 Yes 2000U Take 1 tablet by mouth in the morning. [facility] Cholecalcif mary, Vitamin D3, (VITAMIN D3) 50 mcg (2,000 unit) tablet 09-28 00:00: 00 Yes 2000U Take 1 tablet by mouth in the morning. [facility] Cholecalcif mary, Vitamin D3, (VITAMIN D3) 50 mcg (2,000 unit) tablet 09-28 00:00: 00 Yes 2000U Take 1 tablet by mouth in the morning. [facility] empaglifloz in-metformi n (SYNJARDY) 5-1,000 mg Tab 2023-0 3-02 11:49: 18 202- 03- 00:00 :00 No Take by mouth 2 (two) times daily. [facility] empaglifloz in-metformi n (SYNJARDY) 5-1,000 mg Tab 2023-0 3-02 00:00: 00 Yes [id number] 1{tbl} Take 1 tablet by mouth in the morning and 1 tablet in the evening. [facility] empaglifloz in-metformi n (SYNJARDY) 5-1,000 mg Tab 2023-0 3-02 00:00: 00 Yes [id number] 1{tbl} Take 1 tablet by mouth in the morning and 1 tablet in the evening. [facility] empaglifloz in-metformi n (SYNJARDY) 5-1,000 mg Tab 2023-0 3-02 00:00: 00 Yes [id number] 1{tbl} Take 1 tablet by mouth in the morning and 1 tablet in the evening. [facility] empaglifloz in-metformi n (SYNJARDY) 5-1,000 mg Tab 2023-0 3-02 00:00: 00 Yes [id number] 1{tbl} Take 1 tablet by mouth in the morning and 1 tablet in the evening. [facility] empaglifloz in-metformi n (SYNJARDY) 5-1,000 mg Tab 2023-0 3-02 00:00: 00 Yes [id number] 1{tbl} Take 1 tablet by mouth in the morning and 1 tablet in the evening. [facility] empaglifloz in-metformi n (SYNJARDY) 5-1,000 mg Tab 2023-0 3-02 00:00: 00 Yes [id number] 1{tbl} Take 1 tablet by mouth in the morning and 1 tablet in the evening. [facility] empaglifloz in-metformi n (SYNJARDY) 5-1,000 mg Tab 2023-0 3-02 00:00: 00 Yes [id number] 1{tbl} Take 1 tablet by mouth in the morning and 1 tablet in the evening. [facility] empaglifloz in-metformi n (SYNJARDY) 5-1,000 mg Tab 2023-0 3-02 00:00: 00 Yes [id number] 1{tbl} Take 1 tablet by mouth in the morning and 1 tablet in the evening. [facility] empaglifloz in-metformi n (SYNJARDY) 5-1,000 mg Tab 2023-0 3-02 00:00: 00 Yes [id number] 1{tbl} Take 1 tablet by mouth in the morning and 1 tablet in the evening. [facility] empaglifloz in-metformi n (SYNJARDY) 5-1,000 mg Tab 2023-0 3-02 00:00: 00 Yes [id number] 1{tbl} Take 1 tablet by mouth in the morning and 1 tablet in the evening. [facility] empaglifloz in-metformi n (SYNJARDY) 5-1,000 mg Tab 2023-0 3-02 00:00: 00 Yes [id number] 1{tbl} Take 1 tablet by mouth in the morning and 1 tablet in the evening. [facility] empaglifloz in-metformi n (SYNJARDY) 5-1,000 mg Tab 2023-0 3-02 00:00: 00 Yes [id number] 1{tbl} Take 1 tablet by mouth in the morning and 1 tablet in the evening. [facility] empaglifloz in-metformi n (SYNJARDY) 5-1,000 mg Tab 2023-0 3-02 00:00: 00 Yes [id number] 1{tbl} Take 1 tablet by mouth in the morning and 1 tablet in the evening. [facility] empaglifloz in-metformi n (SYNJARDY) 5-1,000 mg Tab 2023-0 3-02 00:00: 00 Yes [id number] 1{tbl} Take 1 tablet by mouth in the morning and 1 tablet in the evening. [facility] pantoprazol e 40 mg EC tablet 2023-0 3-02 00:00: 00 Yes 40mg Take 1 tablet by mouth every morning. [facility] empaglifloz in-metformi n (SYNJARDY) 5-1,000 mg Tab 3-0 3-02 00:00: 00 Yes [id number] 1{tbl} Take 1 tablet by mouth in the morning and 1 tablet in the evening. [facility] pantoprazol e 40 mg EC tablet 2022-0 3-02 00:00: 00 Yes 40mg Take 1 tablet by mouth every morning. [facility] empaglifloz in-metformi n (SYNJARDY) 5-1,000 mg Tab 3-0 - 00:00: 00 Yes [id number] 1{tbl} Take 1 tablet by mouth in the morning and 1 tablet in the evening. [facility] pantoprazol e 40 mg EC tablet 2022-0 09-15 00:00: 00 Yes 40mg Take 1 tablet by mouth every morning. [facility] empaglifloz in-metformi n (SYNJARDY) 5-1,000 mg Tab 3-0 - 00:00: 00 Yes [id number] 1{tbl} Take 1 tablet by mouth in the morning and 1 tablet in the evening. [facility] pantoprazol e 40 mg EC tablet 2022-0 02 00:00: 00 Yes 40mg Take 1 tablet by mouth every morning. [facility] empaglifloz in-metformi n (SYNJARDY) 5-1,000 mg Tab 3-0 3-02 00:00: 00 Yes [id number] 1{tbl} Take 1 tablet by mouth in the morning and 1 tablet in the evening. [facility] pantoprazol e 40 mg EC tablet 3-0 3-02 00:00: 00 Yes 40mg Take 1 tablet by mouth every morning. [facility] empaglifloz in-metformi n (SYNJARDY) 5-1,000 mg Tab 2023-0 3-02 00:00: 00 Yes [id number] 1{tbl} Take 1 tablet by mouth in the morning and 1 tablet in the evening. [facility] pantoprazol e 40 mg EC tablet 3-0 02 00:00: 00 Yes 40mg Take 1 tablet by mouth every morning. [facility] empaglifloz in-metformi n (SYNJARDY) 5-1,000 mg Tab 2023-0 3-02 00:00: 00 Yes [id number] 1{tbl} Take 1 tablet by mouth in the morning and 1 tablet in the evening. [facility] pantoprazol e 40 mg EC tablet 2022-0 09-15 00:00: 00 Yes 40mg Take 1 tablet by mouth every morning. [facility] empaglifloz in-metformi n (SYNJARDY) 5-1,000 mg Tab 3-0 - 00:00: 00 Yes [id number] 1{tbl} Take 1 tablet by mouth in the morning and 1 tablet in the evening. [facility] pantoprazol e 40 mg EC tablet 2022-0 09-15 00:00: 00 Yes 40mg Take 1 tablet by mouth every morning. [facility] empaglifloz in-metformi n (SYNJARDY) 5-1,000 mg Tab 3-0 09-15 00:00: 00 Yes [id number] 1{tbl} Take 1 tablet by mouth in the morning and 1 tablet in the evening. [facility] pantoprazol e 40 mg EC tablet 3-0 02 00:00: 00 Yes 40mg Take 1 tablet by mouth every morning. [facility] empaglifloz in-metformi n (SYNJARDY) 5-1,000 mg Tab 3-0 -02 00:00: 00 Yes [id number] 1{tbl} Take 1 tablet by mouth in the morning and 1 tablet in the evening. [facility] pantoprazol e 40 mg EC tablet 3-0 -02 00:00: 00 Yes 40mg Take 1 tablet by mouth every morning. [facility] empaglifloz in-metformi n (SYNJARDY) 5-1,000 mg Tab 3-0 3-02 00:00: 00 Yes [id number] 1{tbl} Take 1 tablet by mouth in the morning and 1 tablet in the evening. [facility] pantoprazol e 40 mg EC tablet 2022-0 02 00:00: 00 Yes 40mg Take 1 tablet by mouth every morning. [facility] empaglifloz in-metformi n (SYNJARDY) 5-1,000 mg Tab 2022-0 09-15 00:00: 00 Yes [id number] 1{tbl} Take 1 tablet by mouth in the morning and 1 tablet in the evening. [facility] pantoprazol e 40 mg EC tablet 2022-0 09-15 00:00: 00 Yes 40mg Take 1 tablet by mouth every morning. [facility] empaglifloz in-metformi n (SYNJARDY) 5-1,000 mg Tab 2022-0 09-15 00:00: 00 Yes [id number] 1{tbl} Take 1 tablet by mouth in the morning and 1 tablet in the evening. [facility] pantoprazol e 40 mg EC tablet 2022-0 09-15 00:00: 00 Yes 40mg Take 1 tablet by mouth every morning. [facility] empaglifloz in-metformi n (SYNJARDY) 5-1,000 mg Tab 2022-0 09-15 00:00: 00 Yes [id number] 1{tbl} Take 1 tablet by mouth in the morning and 1 tablet in the evening. [facility] pantoprazol e 40 mg EC tablet 2022-0 09-15 00:00: 00 Yes 40mg Take 1 tablet by mouth every morning. [facility] empaglifloz in-metformi n (SYNJARDY) 5-1,000 mg Tab 3-0 09-15 00:00: 00 Yes [id number] 1{tbl} Take 1 tablet by mouth in the morning and 1 tablet in the evening. [facility] pantoprazol e 40 mg EC tablet 3-0 3-02 00:00: 00 Yes 40mg Take 1 tablet by mouth every morning. [facility] empaglifloz in-metformi n (SYNJARDY) 5-1,000 mg Tab 3-0 3-02 00:00: 00 Yes [id number] 1{tbl} Take 1 tablet by mouth in the morning and 1 tablet in the evening. [facility] pantoprazol e 40 mg EC tablet 2022-0 3-02 00:00: 00 Yes 40mg Take 1 tablet by mouth every morning. [facility] empaglifloz in-metformi n (SYNJARDY) 5-1,000 mg Tab 3-0 -02 00:00: 00 Yes [id number] 1{tbl} Take 1 tablet by mouth in the morning and 1 tablet in the evening. [facility] pantoprazol e 40 mg EC tablet 2022-0 09-15 00:00: 00 Yes 40mg Take 1 tablet by mouth every morning. [facility] empaglifloz in-metformi n (SYNJARDY) 5-1,000 mg Tab 3-0 09-15 00:00: 00 Yes [id number] 1{tbl} Take 1 tablet by mouth in the morning and 1 tablet in the evening. [facility] pantoprazol e 40 mg EC tablet 2022-0 09-15 00:00: 00 Yes 40mg Take 1 tablet by mouth every morning. [facility] empaglifloz in-metformi n (SYNJARDY) 5-1,000 mg Tab 3-0 09-15 00:00: 00 Yes [id number] 1{tbl} Take 1 tablet by mouth in the morning and 1 tablet in the evening. [facility] pantoprazol e 40 mg EC tablet 3-0 3-02 00:00: 00 Yes 40mg Take 1 tablet by mouth every morning. [facility] empaglifloz in-metformi n (SYNJARDY) 5-1,000 mg Tab 3-0 3-02 00:00: 00 Yes [id number] 1{tbl} Take 1 tablet by mouth in the morning and 1 tablet in the evening. [facility] pantoprazol e 40 mg EC tablet 3-0 3-02 00:00: 00 Yes 40mg Take 1 tablet by mouth every morning. [facility] empaglifloz in-metformi n (SYNJARDY) 5-1,000 mg Tab 2023-0 3-02 00:00: 00 Yes [id number] 1{tbl} Take 1 tablet by mouth in the morning and 1 tablet in the evening. [facility] empaglifloz in-metformi n (SYNJARDY) 5-1,000 mg Tab 2023-0 3-02 00:00: 00 Yes [id number] 1{tbl} Take 1 tablet by mouth in the morning and 1 tablet in the evening. [facility] empaglifloz in-metformi n (SYNJARDY) 5-1,000 mg Tab 2023-0 3-02 00:00: 00 Yes [id number] 1{tbl} Take 1 tablet by mouth in the morning and 1 tablet in the evening. [facility] empaglifloz in-metformi n (SYNJARDY) 5-1,000 mg Tab 2023-0 3-02 00:00: 00 Yes [id number] 1{tbl} Take 1 tablet by mouth in the morning and 1 tablet in the evening. [facility] empaglifloz in-metformi n (SYNJARDY) 5-1,000 mg Tab 2023-0 3-02 00:00: 00 Yes [id number] 1{tbl} Take 1 tablet by mouth in the morning and 1 tablet in the evening. [facility] empaglifloz in-metformi n (SYNJARDY) 5-1,000 mg Tab 2023-0 3-02 00:00: 00 Yes [id number] 1{tbl} Take 1 tablet by mouth in the morning and 1 tablet in the evening. [facility] empaglifloz in-metformi n (SYNJARDY) 5-1,000 mg Tab 2023-0 3-02 00:00: 00 Yes [id number] 1{tbl} Take 1 tablet by mouth in the morning and 1 tablet in the evening. [facility] empaglifloz in-metformi n (SYNJARDY) 5-1,000 mg Tab 2023-0 3-02 00:00: 00 Yes [id number] 1{tbl} Take 1 tablet by mouth in the morning and 1 tablet in the evening. [facility] empaglifloz in-metformi n (SYNJARDY) 5-1,000 mg Tab 2023-0 3-02 00:00: 00 Yes [id number] 1{tbl} Take 1 tablet by mouth in the morning and 1 tablet in the evening. [facility] empaglifloz in-metformi n (SYNJARDY) 5-1,000 mg Tab 2023-0 3-02 00:00: 00 Yes [id number] 1{tbl} Take 1 tablet by mouth in the morning and 1 tablet in the evening. [facility] empaglifloz in-metformi n (SYNJARDY) 5-1,000 mg Tab 2023-0 3-02 00:00: 00 Yes [id number] 1{tbl} Take 1 tablet by mouth in the morning and 1 tablet in the evening. [facility] empaglifloz in-metformi n (SYNJARDY) 5-1,000 mg Tab 2023-0 3-02 00:00: 00 Yes [id number] 1{tbl} Take 1 tablet by mouth in the morning and 1 tablet in the evening. [facility] empaglifloz in-metformi n (SYNJARDY) 5-1,000 mg Tab 2023-0 3-02 00:00: 00 Yes [id number] 1{tbl} Take 1 tablet by mouth in the morning and 1 tablet in the evening. [facility] empaglifloz in-metformi n (SYNJARDY) 5-1,000 mg Tab 2023-0 3-02 00:00: 00 Yes [id number] 1{tbl} Take 1 tablet by mouth in the morning and 1 tablet in the evening. [facility] empaglifloz in-metformi n (SYNJARDY) 5-1,000 mg Tab 2023-0 3-02 00:00: 00 Yes [id number] 1{tbl} Take 1 tablet by mouth in the morning and 1 tablet in the evening. [facility] empaglifloz in-metformi n (SYNJARDY) 5-1,000 mg Tab 2023-0 3-02 00:00: 00 Yes [id number] 1{tbl} Take 1 tablet by mouth in the morning and 1 tablet in the evening. [facility] empaglifloz in-metformi n (SYNJARDY) 5-1,000 mg Tab 2023-0 3-02 00:00: 00 Yes [id number] 1{tbl} Take 1 tablet by mouth in the morning and 1 tablet in the evening. [facility] empaglifloz in-metformi n (SYNJARDY) 5-1,000 mg Tab 2023-0 3-02 00:00: 00 Yes [id number] 1{tbl} Take 1 tablet by mouth in the morning and 1 tablet in the evening. [facility] empaglifloz in-metformi n (SYNJARDY) 5-1,000 mg Tab 2023-0 3-02 00:00: 00 Yes [id number] 1{tbl} Take 1 tablet by mouth in the morning and 1 tablet in the evening. [facility] empaglifloz in-metformi n (SYNJARDY) 5-1,000 mg Tab 2023-0 3-02 00:00: 00 Yes [id number] 1{tbl} Take 1 tablet by mouth in the morning and 1 tablet in the evening. [facility] empaglifloz in-metformi n (SYNJARDY) 5-1,000 mg Tab 2023-0 3-02 00:00: 00 Yes [id number] 1{tbl} Take 1 tablet by mouth in the morning and 1 tablet in the evening. [facility] empaglifloz in-metformi n (SYNJARDY) 5-1,000 mg Tab 2023-0 3-02 00:00: 00 Yes [id number] 1{tbl} Take 1 tablet by mouth in the morning and 1 tablet in the evening. [facility] empaglifloz in-metformi n (SYNJARDY) 5-1,000 mg Tab 2023-0 3-02 00:00: 00 Yes [id number] 1{tbl} Take 1 tablet by mouth in the morning and 1 tablet in the evening. [facility] empaglifloz in-metformi n (SYNJARDY) 5-1,000 mg Tab 2023-0 3-02 00:00: 00 Yes [id number] 1{tbl} Take 1 tablet by mouth in the morning and 1 tablet in the evening. [facility] empaglifloz in-metformi n (SYNJARDY) 5-1,000 mg Tab 2023-0 3-02 00:00: 00 Yes [id number] 1{tbl} Take 1 tablet by mouth in the morning and 1 tablet in the evening. [facility] empaglifloz in-metformi n (SYNJARDY) 5-1,000 mg Tab 2023-0 3-02 00:00: 00 Yes [id number] 1{tbl} Take 1 tablet by mouth in the morning and 1 tablet in the evening. [facility] empaglifloz in-metformi n (SYNJARDY) 5-1,000 mg Tab 2023-0 3-02 00:00: 00 Yes [id number] 1{tbl} Take 1 tablet by mouth in the morning and 1 tablet in the evening. [facility] empaglifloz in-metformi n (SYNJARDY) 5-1,000 mg Tab 2023-0 3-02 00:00: 00 Yes [id number] 1{tbl} Take 1 tablet by mouth in the morning and 1 tablet in the evening. [facility] empaglifloz in-metformi n (SYNJARDY) 5-1,000 mg Tab 2023-0 3-02 00:00: 00 Yes [id number] 1{tbl} Take 1 tablet by mouth in the morning and 1 tablet in the evening. [facility] empaglifloz in-metformi n (SYNJARDY) 5-1,000 mg Tab 2023-0 3-02 00:00: 00 Yes [id number] 1{tbl} Take 1 tablet by mouth in the morning and 1 tablet in the evening. [facility] empaglifloz in-metformi n (SYNJARDY) 5-1,000 mg Tab 09-15 00:00: 00 Yes [id number] 1{tbl} Take 1 tablet by mouth in the morning and 1 tablet in the evening. [facility] pantoprazol e 40 mg EC tablet 09-15 00:00: 00 01-09 00:00 :00 No 40mg Take 1 tablet by mouth every morning. [facility] pantoprazol e 40 mg EC tablet 09-15 00:00: 00 01-09 00:00 :00 No 40mg Take 1 tablet by mouth every morning. [facility] simvastatin 80 mg tablet 09-13 07:41: 17 09-13 00:00 :00 No 80mg Take 80 mg by mouth at bedtime. [facility] simvastatin 80 mg tablet 09-13 00:00: 00 Yes [id number] 80mg Take 1 tablet by mouth at bedtime. [facility] levothyroxi ne 50 mcg tablet 09-13 00:00: 00 Yes [id number] 50ug Take 1 tablet by mouth every morning. [facility] simvastatin 80 mg tablet 0 09-13 00:00: 00 Yes [id number] 80mg Take 1 tablet by mouth at bedtime. [facility] levothyroxi ne 50 mcg tablet 0 28 00:00: 00 Yes [id number] 50ug Take 1 tablet by mouth every morning. [facility] simvastatin 80 mg tablet 0 28 00:00: 00 Yes [id number] 80mg Take 1 tablet by mouth at bedtime. [facility] levothyroxi ne 50 mcg tablet 0 28 00:00: 00 Yes [id number] 50ug Take 1 tablet by mouth every morning. [facility] simvastatin 80 mg tablet 0 2-28 00:00: 00 Yes [id number] 80mg Take 1 tablet by mouth at bedtime. [facility] levothyroxi ne 50 mcg tablet 0 28 00:00: 00 Yes [id number] 50ug Take 1 tablet by mouth every morning. [facility] simvastatin 80 mg tablet 0 09-13 00:00: 00 Yes [id number] 80mg Take 1 tablet by mouth at bedtime. [facility] levothyroxi ne 50 mcg tablet 0 09-13 00:00: 00 Yes [id number] 50ug Take 1 tablet by mouth every morning. [facility] simvastatin 80 mg tablet 2022-0 09-13 00:00: 00 Yes [id number] 80mg Take 1 tablet by mouth at bedtime. [facility] levothyroxi ne 50 mcg tablet 0 09-13 00:00: 00 Yes [id number] 50ug Take 1 tablet by mouth every morning. [facility] simvastatin 80 mg tablet 0 09-13 00:00: 00 Yes [id number] 80mg Take 1 tablet by mouth at bedtime. [facility] levothyroxi ne 50 mcg tablet 0 09-13 00:00: 00 Yes [id number] 50ug Take 1 tablet by mouth every morning. [facility] simvastatin 80 mg tablet 0 09-13 00:00: 00 Yes [id number] 80mg Take 1 tablet by mouth at bedtime. [facility] levothyroxi ne 50 mcg tablet 0 09-13 00:00: 00 Yes [id number] 50ug Take 1 tablet by mouth every morning. [facility] simvastatin 80 mg tablet 2022-0 28 00:00: 00 Yes [id number] 80mg Take 1 tablet by mouth at bedtime. [facility] levothyroxi ne 50 mcg tablet 2022-0 28 00:00: 00 Yes [id number] 50ug Take 1 tablet by mouth every morning. [facility] simvastatin 80 mg tablet 2022-0 28 00:00: 00 Yes [id number] 80mg Take 1 tablet by mouth at bedtime. [facility] levothyroxi ne 50 mcg tablet 0 09-13 00:00: 00 Yes [id number] 50ug Take 1 tablet by mouth every morning. [facility] simvastatin 80 mg tablet 0 09-13 00:00: 00 Yes [id number] 80mg Take 1 tablet by mouth at bedtime. [facility] levothyroxi ne 50 mcg tablet 0 09-13 00:00: 00 Yes [id number] 50ug Take 1 tablet by mouth every morning. [facility] simvastatin 80 mg tablet 0 09-13 00:00: 00 Yes [id number] 80mg Take 1 tablet by mouth at bedtime. [facility] levothyroxi ne 50 mcg tablet 09-13 00:00: 00 Yes [id number] 50ug Take 1 tablet by mouth every morning. [facility] simvastatin 80 mg tablet 0 09-13 00:00: 00 Yes [id number] 80mg Take 1 tablet by mouth at bedtime. [facility] levothyroxi ne 50 mcg tablet 0 09-13 00:00: 00 Yes [id number] 50ug Take 1 tablet by mouth every morning. [facility] simvastatin 80 mg tablet 0 09-13 00:00: 00 Yes [id number] 80mg Take 1 tablet by mouth at bedtime. [facility] levothyroxi ne 50 mcg tablet 0 09-13 00:00: 00 Yes [id number] 50ug Take 1 tablet by mouth every morning. [facility] simvastatin 80 mg tablet 0 09-13 00:00: 00 Yes [id number] 80mg Take 1 tablet by mouth at bedtime. [facility] levothyroxi ne 50 mcg tablet 0 09-13 00:00: 00 Yes [id number] 50ug Take 1 tablet by mouth every morning. [facility] simvastatin 80 mg tablet 2022-0 09-13 00:00: 00 Yes [id number] 80mg Take 1 tablet by mouth at bedtime. [facility] levothyroxi ne 50 mcg tablet 2022-0 28 00:00: 00 Yes [id number] 50ug Take 1 tablet by mouth every morning. [facility] simvastatin 80 mg tablet 2022-0 28 00:00: 00 Yes [id number] 80mg Take 1 tablet by mouth at bedtime. [facility] levothyroxi ne 50 mcg tablet 2022-0 28 00:00: 00 Yes [id number] 50ug Take 1 tablet by mouth every morning. [facility] simvastatin 80 mg tablet 2022-0 -28 00:00: 00 Yes [id number] 80mg Take 1 tablet by mouth at bedtime. [facility] levothyroxi ne 50 mcg tablet 2022-0 09-13 00:00: 00 Yes [id number] 50ug Take 1 tablet by mouth every morning. [facility] simvastatin 80 mg tablet 2022-0 28 00:00: 00 Yes [id number] 80mg Take 1 tablet by mouth at bedtime. [facility] levothyroxi ne 50 mcg tablet 2022-0 28 00:00: 00 Yes [id number] 50ug Take 1 tablet by mouth every morning. [facility] simvastatin 80 mg tablet 2022-0 28 00:00: 00 Yes [id number] 80mg Take 1 tablet by mouth at bedtime. [facility] levothyroxi ne 50 mcg tablet 2022-0 28 00:00: 00 Yes [id number] 50ug Take 1 tablet by mouth every morning. [facility] simvastatin 80 mg tablet 2022-0 28 00:00: 00 Yes [id number] 80mg Take 1 tablet by mouth at bedtime. [facility] levothyroxi ne 50 mcg tablet 2022-0 28 00:00: 00 Yes [id number] 50ug Take 1 tablet by mouth every morning. [facility] simvastatin 80 mg tablet 3-0 2-28 00:00: 00 Yes [id number] 80mg Take 1 tablet by mouth at bedtime. [facility] levothyroxi ne 50 mcg tablet 2022-0 2-28 00:00: 00 Yes [id number] 50ug Take 1 tablet by mouth every morning. [facility] simvastatin 80 mg tablet 2022-0 28 00:00: 00 Yes [id number] 80mg Take 1 tablet by mouth at bedtime. [facility] levothyroxi ne 50 mcg tablet 2022-0 28 00:00: 00 Yes [id number] 50ug Take 1 tablet by mouth every morning. [facility] simvastatin 80 mg tablet 2022-0 28 00:00: 00 Yes [id number] 80mg Take 1 tablet by mouth at bedtime. [facility] levothyroxi ne 50 mcg tablet 2022-0 28 00:00: 00 Yes [id number] 50ug Take 1 tablet by mouth every morning. [facility] simvastatin 80 mg tablet 2022-0 28 00:00: 00 Yes [id number] 80mg Take 1 tablet by mouth at bedtime. [facility] levothyroxi ne 50 mcg tablet 2022-0 28 00:00: 00 Yes [id number] 50ug Take 1 tablet by mouth every morning. [facility] simvastatin 80 mg tablet 2022-0 28 00:00: 00 Yes [id number] 80mg Take 1 tablet by mouth at bedtime. [facility] levothyroxi ne 50 mcg tablet 2022-0 28 00:00: 00 Yes [id number] 50ug Take 1 tablet by mouth every morning. [facility] simvastatin 80 mg tablet 2022-0 28 00:00: 00 Yes [id number] 80mg Take 1 tablet by mouth at bedtime. [facility] [facility]xi [facility] mcg tablet 2022-0 28 00:00: 00 Yes [id number] 50ug Take 1 tablet by mouth every morning. [facility] simvastatin 80 mg tablet 2022-0 28 00:00: 00 Yes [id number] 80mg Take 1 tablet by mouth at bedtime. [facility] levothyroxi ne 50 mcg tablet 2022-0 28 00:00: 00 Yes [id number] 50ug Take 1 tablet by mouth every morning. [facility] simvastatin 80 mg tablet 0 09-13 00:00: 00 Yes [id number] 80mg Take 1 tablet by mouth at bedtime. [facility] levothyroxi ne 50 mcg tablet 0 09-13 00:00: 00 Yes [id number] 50ug Take 1 tablet by mouth every morning. [facility] simvastatin 80 mg tablet 0 09-13 00:00: 00 Yes [id number] 80mg Take 1 tablet by mouth at bedtime. [facility] levothyroxi ne 50 mcg tablet 0 09-13 00:00: 00 Yes [id number] 50ug Take 1 tablet by mouth every morning. [facility] simvastatin 80 mg tablet 0 09-13 00:00: 00 Yes [id number] 80mg Take 1 tablet by mouth at bedtime. [facility] levothyroxi ne 50 mcg tablet 0 09-13 00:00: 00 Yes [id number] 50ug Take 1 tablet by mouth every morning. [facility] simvastatin 80 mg tablet 0 09-13 00:00: 00 Yes [id number] 80mg Take 1 tablet by mouth at bedtime. [facility] levothyroxi ne 50 mcg tablet 0 09-13 00:00: 00 Yes [id number] 50ug Take 1 tablet by mouth every morning. [facility] simvastatin 80 mg tablet 0 09-13 00:00: 00 Yes [id number] 80mg Take 1 tablet by mouth at bedtime. [facility] levothyroxi ne 50 mcg tablet 0 09-13 00:00: 00 Yes [id number] 50ug Take 1 tablet by mouth every morning. [facility] simvastatin 80 mg tablet 0 09-13 00:00: 00 Yes [id number] 80mg Take 1 tablet by mouth at bedtime. [facility] levothyroxi ne 50 mcg tablet 2022-0 09-13 00:00: 00 Yes [id number] 50ug Take 1 tablet by mouth every morning. [facility] simvastatin 80 mg tablet 2023-0 2-28 00:00: 00 Yes [id number] 80mg Take 1 tablet by mouth at bedtime. [facility] simvastatin 80 mg tablet 3-0 2-28 00:00: 00 Yes [id number] 80mg Take 1 tablet by mouth at bedtime. [facility] simvastatin 80 mg tablet 3-0 2-28 00:00: 00 Yes [id number] 80mg Take 1 tablet by mouth at bedtime. [facility] simvastatin 80 mg tablet 3-0 2-28 00:00: 00 Yes [id number] 80mg Take 1 tablet by mouth at bedtime. [facility] simvastatin 80 mg tablet 3-0 -28 00:00: 00 Yes [id number] 80mg Take 1 tablet by mouth at bedtime. [facility] simvastatin 80 mg tablet 3-0 -28 00:00: 00 Yes [id number] 80mg Take 1 tablet by mouth at bedtime. [facility] simvastatin 80 mg tablet 3-0 28 00:00: 00 Yes [id number] 80mg Take 1 tablet by mouth at bedtime. [facility] simvastatin 80 mg tablet 3-0 -28 00:00: 00 Yes [id number] 80mg Take 1 tablet by mouth at bedtime. [facility] simvastatin 80 mg tablet 3-0 28 00:00: 00 Yes [id number] 80mg Take 1 tablet by mouth at bedtime. [facility] simvastatin 80 mg tablet 3-0 2-28 00:00: 00 Yes [id number] 80mg Take 1 tablet by mouth at bedtime. [facility] simvastatin 80 mg tablet 3-0 2-28 00:00: 00 Yes [id number] 80mg Take 1 tablet by mouth at bedtime. [facility] simvastatin 80 mg tablet 3-0 2-28 00:00: 00 Yes [id number] 80mg Take 1 tablet by mouth at bedtime. [facility] simvastatin 80 mg tablet 3-0 2-28 00:00: 00 Yes [id number] 80mg Take 1 tablet by mouth at bedtime. [facility] simvastatin 80 mg tablet 3-0 2-28 00:00: 00 Yes [id number] 80mg Take 1 tablet by mouth at bedtime. [facility] simvastatin 80 mg tablet 3-0 2-28 00:00: 00 Yes [id number] 80mg Take 1 tablet by mouth at bedtime. [facility] simvastatin 80 mg tablet 3-0 2-28 00:00: 00 Yes [id number] 80mg Take 1 tablet by mouth at bedtime. [facility] simvastatin 80 mg tablet 3-0 2-28 00:00: 00 Yes [id number] 80mg Take 1 tablet by mouth at bedtime. [facility] simvastatin 80 mg tablet 3-0 2-28 00:00: 00 Yes [id number] 80mg Take 1 tablet by mouth at bedtime. [facility] simvastatin 80 mg tablet 3-0 2-28 00:00: 00 Yes [id number] 80mg Take 1 tablet by mouth at bedtime. [facility] simvastatin 80 mg tablet 3-0 2-28 00:00: 00 Yes [id number] 80mg Take 1 tablet by mouth at bedtime. [facility] simvastatin 80 mg tablet 3-0 2-28 00:00: 00 Yes [id number] 80mg Take 1 tablet by mouth at bedtime. [facility] simvastatin 80 mg tablet 3-0 2-28 00:00: 00 Yes [id number] 80mg Take 1 tablet by mouth at bedtime. [facility] simvastatin 80 mg tablet 3-0 2-28 00:00: 00 Yes [id number] 80mg Take 1 tablet by mouth at bedtime. [facility] simvastatin 80 mg tablet 3-0 2-28 00:00: 00 Yes [id number] 80mg Take 1 tablet by mouth at bedtime. [facility] simvastatin 80 mg tablet 3-0 2-28 00:00: 00 Yes [id number] 80mg Take 1 tablet by mouth at bedtime. [facility] simvastatin 80 mg tablet 3-0 2-28 00:00: 00 Yes [id number] 80mg Take 1 tablet by mouth at bedtime. [facility] simvastatin 80 mg tablet 0 2-28 00:00: 00 Yes [id number] 80mg Take 1 tablet by mouth at bedtime. [facility] simvastatin 80 mg tablet 0 2-28 00:00: 00 Yes [id number] 80mg Take 1 tablet by mouth at bedtime. [facility] simvastatin 80 mg tablet 2022-0 2-28 00:00: 00 Yes [id number] 80mg Take 1 tablet by mouth at bedtime. [facility] simvastatin 80 mg tablet 0 2-28 00:00: 00 Yes [id number] 80mg Take 1 tablet by mouth at bedtime. [facility] simvastatin 80 mg tablet 0 28 00:00: 00 Yes [id number] 80mg Take 1 tablet by mouth at bedtime. [facility] levothyroxi ne 50 mcg tablet 09-13 00:00: 00 01-09 00:00 :00 No [id number] 50ug Take 1 tablet by mouth every morning. [facility] levothyroxi ne 50 mcg tablet 0 09-13 00:00: 00 01-09 00:00 :00 No [id number] 50ug Take 1 tablet by mouth every morning. [facility] adalimumab (HUMIRA,CF, PEN) 40 mg/0.4 mL injection 10 00:00: 00 Yes [id number] 40mg inject 1 Pen under the skin every 14 (fourteen) days. [facility] adalimumab (HUMIRA,CF, PEN) 40 mg/0.4 mL injection 0 2-10 00:00: 00 Yes [id number] 40mg inject 1 Pen under the skin every 14 (fourteen) days. [facility] adalimumab (HUMIRA,CF, PEN) 40 mg/0.4 mL injection 2022-0 2-10 00:00: 00 Yes [id number] 40mg inject 1 Pen under the skin every 14 (fourteen) days. [facility] adalimumab (HUMIRA,CF, PEN) 40 mg/0.4 mL injection 2023-0 2-10 00:00: 00 Yes [id number] 40mg inject 1 Pen under the skin every 14 (fourteen) days. [facility] adalimumab (HUMIRA,CF, PEN) 40 mg/0.4 mL injection 3-0 2-10 00:00: 00 Yes [id number] 40mg inject 1 Pen under the skin every 14 (fourteen) days. [facility] adalimumab (HUMIRA,CF, PEN) 40 mg/0.4 mL injection 3-0 2-10 00:00: 00 Yes [id number] 40mg inject 1 Pen under the skin every 14 (fourteen) days. [facility] adalimumab (HUMIRA,CF, PEN) 40 mg/0.4 mL injection 2022-0 2-10 00:00: 00 Yes [id number] 40mg inject 1 Pen under the skin every 14 (fourteen) days. [facility] adalimumab (HUMIRA,CF, PEN) 40 mg/0.4 mL injection 2022-0 2-10 00:00: 00 Yes [id number] 40mg inject 1 Pen under the skin every 14 (fourteen) days. [facility] adalimumab (HUMIRA,CF, PEN) 40 mg/0.4 mL injection 2022-0 2-10 00:00: 00 Yes [id number] 40mg inject 1 Pen under the skin every 14 (fourteen) days. [facility] adalimumab (HUMIRA,CF, PEN) 40 mg/0.4 mL injection 3-0 2-10 00:00: 00 Yes [id number] 40mg inject 1 Pen under the skin every 14 (fourteen) days. [facility] adalimumab (HUMIRA,CF, PEN) 40 mg/0.4 mL injection 3-0 2-10 00:00: 00 Yes [id number] 40mg inject 1 Pen under the skin every 14 (fourteen) days. [facility] adalimumab (HUMIRA,CF, PEN) 40 mg/0.4 mL injection 2023-0 2-10 00:00: 00 Yes [id number] 40mg inject 1 Pen under the skin every 14 (fourteen) days. [facility] adalimumab (HUMIRA,CF, PEN) 40 mg/0.4 mL injection 2023-0 2-10 00:00: 00 Yes [id number] 40mg inject 1 Pen under the skin every 14 (fourteen) days. [facility] adalimumab (HUMIRA,CF, PEN) 40 mg/0.4 mL injection 2023-0 2-10 00:00: 00 Yes [id number] 40mg inject 1 Pen under the skin every 14 (fourteen) days. [facility] adalimumab (HUMIRA,CF, PEN) 40 mg/0.4 mL injection 3-0 2-10 00:00: 00 Yes [id number] 40mg inject 1 Pen under the skin every 14 (fourteen) days. [facility] adalimumab (HUMIRA,CF, PEN) 40 mg/0.4 mL injection 3-0 2-10 00:00: 00 Yes [id number] 40mg inject 1 Pen under the skin every 14 (fourteen) days. [facility] adalimumab (HUMIRA,CF, PEN) 40 mg/0.4 mL injection 3-0 2-10 00:00: 00 Yes [id number] 40mg inject 1 Pen under the skin every 14 (fourteen) days. [facility] adalimumab (HUMIRA,CF, PEN) 40 mg/0.4 mL injection 2023-0 2-10 00:00: 00 Yes [id number] 40mg inject 1 Pen under the skin every 14 (fourteen) days. [facility] adalimumab (HUMIRA,CF, PEN) 40 mg/0.4 mL injection 2023-0 2-10 00:00: 00 Yes [id number] 40mg inject 1 Pen under the skin every 14 (fourteen) days. [facility] adalimumab (HUMIRA,CF, PEN) 40 mg/0.4 mL injection 2023-0 2-10 00:00: 00 Yes [id number] 40mg inject 1 Pen under the skin every 14 (fourteen) days. [facility] adalimumab (HUMIRA,CF, PEN) 40 mg/0.4 mL injection 2023-0 2-10 00:00: 00 Yes [id number] 40mg inject 1 Pen under the skin every 14 (fourteen) days. [facility] adalimumab (HUMIRA,CF, PEN) 40 mg/0.4 mL injection 08-26 00:00: 00 Yes [id number] 40mg inject 1 Pen under the skin every 14 (fourteen) days. [facility] adalimumab (HUMIRA,CF, PEN) 40 mg/0.4 mL injection 08-26 00:00: 00 Yes [id number] 40mg inject 1 Pen under the skin every 14 (fourteen) days. [facility] adalimumab (HUMIRA,CF, PEN) 40 mg/0.4 mL injection 08-26 00:00: 00 11-21 00:00 :00 No [id number] 40mg inject 1 Pen under the skin every 14 (fourteen) days. [facility] aspirin 81 mg EC tablet 07-20 09:15: 37 Yes 81mg Take 81 mg by mouth in the morning. [facility] simvastatin 80 mg tablet 07-20 09:15: 37 Yes 80mg Take 80 mg by mouth at bedtime. [facility] empaglifloz in-metformi n (SYNJARDY) 5-1,000 mg Tab 07-20 09:15: 37 Yes Take by mouth 2 (two) times daily. [facility] aspirin 81 mg EC tablet 07-20 09:15: 37 Yes 81mg Take 81 mg by mouth in the morning. [facility] simvastatin 80 mg tablet 07-20 09:15: 37 Yes 80mg Take 80 mg by mouth at bedtime. [facility] empaglifloz in-metformi n (SYNJARDY) 5-1,000 mg Tab 07-20 09:15: 37 Yes Take by mouth 2 (two) times daily. [facility] aspirin 81 mg EC tablet 07-20 09:15: 37 Yes 81mg Take 81 mg by mouth in the morning. [facility] simvastatin 80 mg tablet 07-20 09:15: 37 Yes 80mg Take 80 mg by mouth at bedtime. [facility] empaglifloz in-metformi n (SYNJARDY) 5-1,000 mg Tab 07-20 09:15: 37 Yes Take by mouth 2 (two) times daily. [facility] aspirin 81 mg EC tablet 07-20 09:15: 37 Yes 81mg Take 81 mg by mouth in the morning. [facility] simvastatin 80 mg tablet 07-20 09:15: 37 Yes 80mg Take 80 mg by mouth at bedtime. [facility] empaglifloz in-metformi n (SYNJARDY) 5-1,000 mg Tab 07-20 09:15: 37 Yes Take by mouth 2 (two) times daily. [facility] aspirin 81 mg EC tablet 07-20 09:15: 37 Yes 81mg Take 81 mg by mouth in the morning. [facility] simvastatin 80 mg tablet 07-20 09:15: 37 Yes 80mg Take 80 mg by mouth at bedtime. [facility] empaglifloz in-metformi n (SYNJARDY) 5-1,000 mg Tab 07-20 09:15: 37 Yes Take by mouth 2 (two) times daily. [facility] aspirin 81 mg EC tablet 07-20 09:15: 37 Yes 81mg Take 81 mg by mouth in the morning. [facility] simvastatin 80 mg tablet 07-20 09:15: 37 Yes 80mg Take 80 mg by mouth at bedtime. [facility] empaglifloz in-metformi n (SYNJARDY) 5-1,000 mg Tab 07-20 09:15: 37 Yes Take by mouth 2 (two) times daily. [facility] aspirin 81 mg EC tablet 07-20 09:15: 37 Yes 81mg Take 81 mg by mouth in the morning. [facility] empaglifloz in-metformi n (SYNJARDY) 5-1,000 mg Tab 07-20 09:15: 37 Yes Take by mouth 2 (two) times daily. [facility] aspirin 81 mg EC tablet 07-20 09:15: 37 Yes 81mg Take 81 mg by mouth in the morning. [facility] aspirin 81 mg EC tablet 07-20 09:15: 37 Yes 81mg Take 81 mg by mouth in the morning. [facility] aspirin 81 mg EC tablet 07-20 09:15: 37 Yes 81mg Take 81 mg by mouth in the morning. [facility] aspirin 81 mg EC tablet 07-20 09:15: 37 Yes 81mg Take 81 mg by mouth in the morning. [facility] aspirin 81 mg EC tablet 07-20 09:15: 37 Yes 81mg Take 81 mg by mouth in the morning. [facility] aspirin 81 mg EC tablet 07-20 09:15: 37 Yes 81mg Take 81 mg by mouth in the morning. [facility] aspirin 81 mg EC tablet 07-20 09:15: 37 Yes 81mg Take 81 mg by mouth in the morning. [facility] aspirin 81 mg EC tablet 07-20 09:15: 37 Yes 81mg Take 81 mg by mouth in the morning. [facility] aspirin 81 mg EC tablet 07-20 09:15: 37 Yes 81mg Take 81 mg by mouth in the morning. [facility] aspirin 81 mg EC tablet 0 07-20 09:15: 37 Yes 81mg Take 81 mg by mouth in the morning. [facility] aspirin 81 mg EC tablet 0 07-20 09:15: 37 Yes 81mg Take 81 mg by mouth in the morning. [facility] aspirin 81 mg EC tablet 07-20 09:15: 37 Yes 81mg Take 81 mg by mouth in the morning. [facility] aspirin 81 mg EC tablet 0 07-20 09:15: 37 Yes 81mg Take 81 mg by mouth in the morning. [facility] EC tablet 3-0 07-20 09:15: 37 Yes 81mg Take 81 mg by mouth in the morning. [facility] aspirin 81 mg EC tablet 0 07-20 09:15: 37 Yes 81mg Take 81 mg by mouth in the morning. [facility] 81 mg EC tablet 3-0 07-20 09:15: 37 Yes 81mg Take 81 mg by mouth in the morning. [facility] 81 mg EC tablet 3-0 07-20 09:15: 37 Yes 81mg Take 81 mg by mouth in the morning. [facility] aspirin 81 mg EC tablet 3-0 07-20 09:15: 37 Yes 81mg Take 81 mg by mouth in the morning. [facility] aspirin 81 mg EC tablet 30 07-20 09:15: 37 Yes 81mg Take 81 mg by mouth in the morning. [facility] aspirin 81 mg EC tablet 0 07-20 09:15: 37 Yes 81mg Take 81 mg by mouth in the morning. [facility] aspirin 81 mg EC tablet 30 07-20 09:15: 37 Yes 81mg Take 81 mg by mouth in the morning. [facility] aspirin 81 mg EC tablet 3-0 07-20 09:15: 37 Yes 81mg Take 81 mg by mouth in the morning. [facility] aspirin 81 mg EC tablet 2022-0 07-20 09:15: 37 Yes 81mg Take 81 mg by mouth in the morning. [facility] aspirin 81 mg EC tablet 3-0 07-20 09:15: 37 Yes 81mg Take 81 mg by mouth in the morning. [facility] aspirin 81 mg EC tablet 3-0 07-20 09:15: 37 Yes 81mg Take 81 mg by mouth in the morning. [facility] aspirin 81 mg EC tablet 3-0 07-20 09:15: 37 Yes 81mg Take 81 mg by mouth in the morning. [facility] aspirin 81 mg EC tablet 3-0 07-20 09:15: 37 Yes 81mg Take 81 mg by mouth in the morning. [facility] 81 mg EC tablet 3-0 07-20 09:15: 37 Yes 81mg Take 81 mg by mouth in the morning. [facility] aspirin 81 mg EC tablet 3-0 07-20 09:15: 37 Yes 81mg Take 81 mg by mouth in the morning. [facility] aspirin 81 mg EC tablet 3-0 07-20 09:15: 37 Yes 81mg Take 81 mg by mouth in the morning. [facility] aspirin 81 mg EC tablet 3-0 07-20 09:15: 37 Yes 81mg Take 81 mg by mouth in the morning. [facility] aspirin 81 mg EC tablet 3-0 07-20 09:15: 37 Yes 81mg Take 81 mg by mouth in the morning. [facility] aspirin 81 mg EC tablet 3-0 07-20 09:15: 37 Yes 81mg Take 81 mg by mouth in the morning. [facility] aspirin 81 mg EC tablet 3-0 07-20 09:15: 37 Yes 81mg Take 81 mg by mouth in the morning. [facility] aspirin 81 mg EC tablet 3-0 07-20 09:15: 37 Yes 81mg Take 81 mg by mouth in the morning. [facility] aspirin 81 mg EC tablet 3-0 07-20 09:15: 37 Yes 81mg Take 81 mg by mouth in the morning. [facility] aspirin 81 mg EC tablet 3-0 07-20 09:15: 37 Yes 81mg Take 81 mg by mouth in the morning. [facility] aspirin 81 mg EC tablet 3-0 07-20 09:15: 37 Yes 81mg Take 81 mg by mouth in the morning. [facility] aspirin 81 mg EC tablet 3-0 07-20 09:15: 37 Yes 81mg Take 81 mg by mouth in the morning. [facility] aspirin 81 mg EC tablet 3-0 07-20 09:15: 37 Yes 81mg Take 81 mg by mouth in the morning. [facility] aspirin 81 mg EC tablet 3-0 07-20 09:15: 37 Yes 81mg Take 81 mg by mouth in the morning. [facility] 81 mg EC tablet 3-0 07-20 09:15: 37 Yes 81mg Take 81 mg by mouth in the morning. [facility] aspirin 81 mg EC tablet 3-0 07-20 09:15: 37 Yes 81mg Take 81 mg by mouth in the morning. [facility] aspirin 81 mg EC tablet 3-0 07-20 09:15: 37 Yes 81mg Take 81 mg by mouth in the morning. [facility] 81 mg EC tablet 3-0 07-20 09:15: 37 Yes 81mg Take 81 mg by mouth in the morning. [facility] aspirin 81 mg EC tablet 3-0 07-20 09:15: 37 Yes 81mg Take 81 mg by mouth in the morning. [facility] aspirin 81 mg EC tablet 3-0 07-20 09:15: 37 Yes 81mg Take 81 mg by mouth in the morning. [facility] aspirin 81 mg EC tablet 3-0 07-20 09:15: 37 Yes 81mg Take 81 mg by mouth in the morning. [facility] aspirin 81 mg EC tablet 30 07-20 09:15: 37 Yes 81mg Take 81 mg by mouth in the morning. [facility] aspirin 81 mg EC tablet 0 07-20 09:15: 37 Yes 81mg Take 81 mg by mouth in the morning. [facility] aspirin 81 mg EC tablet 3-0 07-20 09:15: 37 Yes 81mg Take 81 mg by mouth in the morning. [facility] aspirin 81 mg EC tablet 3-0 07-20 09:15: 37 Yes 81mg Take 81 mg by mouth in the morning. [facility] aspirin 81 mg EC tablet 3-0 07-20 09:15: 37 Yes 81mg Take 81 mg by mouth in the morning. [facility] aspirin 81 mg EC tablet 3-0 07-20 09:15: 37 Yes 81mg Take 81 mg by mouth in the morning. [facility] aspirin 81 mg EC tablet 3-0 07-20 09:15: 37 Yes 81mg Take 81 mg by mouth in the morning. [facility] aspirin 81 mg EC tablet 3-0 07-20 09:15: 37 Yes 81mg Take 81 mg by mouth in the morning. [facility] aspirin 81 mg EC tablet 3-0 07-20 09:15: 37 Yes 81mg Take 81 mg by mouth in the morning. [facility] aspirin 81 mg EC tablet 3-0 07-20 09:15: 37 Yes 81mg Take 81 mg by mouth in the morning. [facility] aspirin 81 mg EC tablet 3-0 07-20 09:15: 37 Yes 81mg Take 81 mg by mouth in the morning. [facility] aspirin 81 mg EC tablet 2022-0 07-20 09:15: 37 Yes 81mg Take 81 mg by mouth in the morning. [facility] aspirin 81 mg EC tablet 3-0 07-20 09:15: 37 Yes 81mg Take 81 mg by mouth in the morning. [facility] aspirin 81 mg EC tablet 3-0 07-20 09:15: 37 Yes 81mg Take 81 mg by mouth in the morning. [facility] aspirin 81 mg EC tablet 3-0 07-20 09:15: 37 Yes 81mg Take 81 mg by mouth in the morning. [facility] aspirin 81 mg EC tablet 2022-0 07-20 09:15: 37 Yes 81mg Take 81 mg by mouth in the morning. [facility] aspirin 81 mg EC tablet 2022-0 07-20 09:15: 37 Yes 81mg Take 81 mg by mouth in the morning. [facility] celecoxib (CELEBREX) 200 mg capsule 2021-0 824 00:00: 00 04-09 04:59 :00 No [id number] 200mg Take 1 capsule by mouth in the morning for 30 days. [facility] celecoxib (CELEBREX) 200 mg capsule 2-0 824 00:00: 00 04-09 04:59 :00 No [id number] 200mg Take 1 capsule by mouth in the morning for 30 days. [facility] celecoxib (CELEBREX) 200 mg capsule 03-09 00:00: 00 04-09 04:59 :00 No [id number] 200mg Take 1 capsule by mouth in the morning for 30 days. [facility] celecoxib (CELEBREX) 200 mg capsule 03-09 00:00: 00 04-09 04:59 :00 No [id number] 200mg Take 1 capsule by mouth in the morning for 30 days. [facility] adalimumab (HUMIRA,CF, PEN) 40 mg/0.4 mL injection 03-07 00:00: 00 Yes [id number] 40mg inject 1 Pen under the skin every 14 (fourteen) days. [facility] adalimumab (HUMIRA,CF, PEN) 40 mg/0.4 mL injection 03-07 00:00: 00 Yes [id number] 40mg inject 1 Pen under the skin every 14 (fourteen) days. [facility] adalimumab (HUMIRA,CF, PEN) 40 mg/0.4 mL injection 03-07 00:00: 00 Yes [id number] 40mg inject 1 Pen under the skin every 14 (fourteen) days. [facility] adalimumab (HUMIRA,CF, PEN) 40 mg/0.4 mL injection 03-07 00:00: 00 Yes [id number] 40mg inject 1 Pen under the skin every 14 (fourteen) days. [facility] adalimumab (HUMIRA,CF, PEN) 40 mg/0.4 mL injection 03-07 00:00: 00 Yes [id number] 40mg inject 1 Pen under the skin every 14 (fourteen) days. [facility] adalimumab (HUMIRA,CF, PEN) 40 mg/0.4 mL injection 03-07 00:00: 00 Yes [id number] 40mg inject 1 Pen under the skin every 14 (fourteen) days. [facility] adalimumab (HUMIRA,CF, PEN) 40 mg/0.4 mL injection 03-07 00:00: 00 Yes [id number] 40mg inject 1 Pen under the skin every 14 (fourteen) days. [facility] adalimumab (HUMIRA,CF, PEN) 40 mg/0.4 mL injection 03-07 00:00: 00 Yes [id number] 40mg inject 1 Pen under the skin every 14 (fourteen) days. [facility] adalimumab (HUMIRA,CF, PEN) 40 mg/0.4 mL injection 03-07 00:00: 00 Yes [id number] 40mg inject 1 Pen under the skin every 14 (fourteen) days. [facility] adalimumab (HUMIRA,CF, PEN) 40 mg/0.4 mL injection 03-07 00:00: 00 Yes [id number] 40mg inject 1 Pen under the skin every 14 (fourteen) days. [facility] adalimumab (HUMIRA,CF, PEN) 40 mg/0.4 mL injection 03-07 00:00: 00 Yes [id number] 40mg inject 1 Pen under the skin every 14 (fourteen) days. [facility] adalimumab (HUMIRA,CF, PEN) 40 mg/0.4 mL injection 03-07 00:00: 00 Yes [id number] 40mg inject 1 Pen under the skin every 14 (fourteen) days. [facility] adalimumab (HUMIRA,CF, PEN) 40 mg/0.4 mL injection 03-07 00:00: 00 Yes [id number] 40mg inject 1 Pen under the skin every 14 (fourteen) days. [facility] adalimumab (HUMIRA,CF, PEN) 40 mg/0.4 mL injection 03-07 00:00: 00 Yes [id number] 40mg inject 1 Pen under the skin every 14 (fourteen) days. [facility] adalimumab (HUMIRA,CF, PEN) 40 mg/0.4 mL injection 03-07 00:00: 00 Yes [id number] 40mg inject 1 Pen under the skin every 14 (fourteen) days. [facility] adalimumab (HUMIRA,CF, PEN) 40 mg/0.4 mL injection 03-07 00:00: 00 Yes [id number] 40mg inject 1 Pen under the skin every 14 (fourteen) days. [facility] adalimumab (HUMIRA,CF, PEN) 40 mg/0.4 mL injection 03-07 00:00: 00 Yes [id number] 40mg inject 1 Pen under the skin every 14 (fourteen) days. [facility] adalimumab (HUMIRA,CF, PEN) 40 mg/0.4 mL injection 03-07 00:00: 00 Yes [id number] 40mg inject 1 Pen under the skin every 14 (fourteen) days. [facility] adalimumab (HUMIRA,CF, PEN) 40 mg/0.4 mL injection 03-07 00:00: 00 Yes [id number] 40mg inject 1 Pen under the skin every 14 (fourteen) days. [facility] adalimumab (HUMIRA,CF, PEN) 40 mg/0.4 mL injection 03-07 00:00: 00 Yes [id number] 40mg inject 1 Pen under the skin every 14 (fourteen) days. [facility] adalimumab (HUMIRA,CF, PEN) 40 mg/0.4 mL injection 03-07 00:00: 00 Yes [id number] 40mg inject 1 Pen under the skin every 14 (fourteen) days. [facility] adalimumab (HUMIRA,CF, PEN) 40 mg/0.4 mL injection 03-07 00:00: 00 Yes [id number] 40mg inject 1 Pen under the skin every 14 (fourteen) days. [facility] adalimumab (HUMIRA,CF, PEN) 40 mg/0.4 mL injection 03-07 00:00: 00 Yes [id number] 40mg inject 1 Pen under the skin every 14 (fourteen) days. [facility] adalimumab (HUMIRA,CF, PEN) 40 mg/0.4 mL injection 2021-0 03-07 00:00: 00 Yes [id number] 40mg inject 1 Pen under the skin every 14 (fourteen) days. [facility] adalimumab (HUMIRA,CF, PEN) 40 mg/0.4 mL injection 03-07 00:00: 00 Yes [id number] 40mg inject 1 Pen under the skin every 14 (fourteen) days. [facility] adalimumab (HUMIRA,CF, PEN) 40 mg/0.4 mL injection 03-07 00:00: 00 Yes [id number] 40mg inject 1 Pen under the skin every 14 (fourteen) days. [facility] adalimumab (HUMIRA,CF, PEN) 40 mg/0.4 mL injection 03-07 00:00: 00 08-24 00:00 :00 No [id number] 40mg inject 1 Pen under the skin every 14 (fourteen) days. [facility] blood sugar diagnostic (ACCU-CHEK GUIDE TEST STRIPS) strip 0 8 00:00: 00 Yes [id number] Use Daily. Dx E11.9 [facility] blood sugar diagnostic (ACCU-CHEK GUIDE TEST STRIPS) strip 0 8-14 00:00: 00 Yes [id number] Use Daily. Dx E11.9 [facility] blood sugar diagnostic (ACCU-CHEK GUIDE TEST STRIPS) strip 0 8-14 00:00: 00 Yes [id number] Use Daily. Dx E11.9 [facility] blood sugar diagnostic (ACCU-CHEK GUIDE TEST STRIPS) strip 0 8-14 00:00: 00 Yes [id number] Use Daily. Dx E11.9 [facility] blood sugar diagnostic (ACCU-CHEK GUIDE TEST STRIPS) strip 2021-0 8-14 00:00: 00 Yes [id number] Use Daily. Dx E11.9 [facility] blood sugar diagnostic (ACCU-CHEK GUIDE TEST STRIPS) strip 2021-0 8-14 00:00: 00 Yes [id number] Use Daily. Dx E11.9 [facility] blood sugar diagnostic (ACCU-CHEK GUIDE TEST STRIPS) strip 2021-0 8-14 00:00: 00 Yes [id number] Use Daily. Dx E11.9 [facility] blood sugar diagnostic (ACCU-CHEK GUIDE TEST STRIPS) strip 2-0 8-14 00:00: 00 Yes [id number] Use Daily. Dx E11.9 [facility] blood sugar diagnostic (ACCU-CHEK GUIDE TEST STRIPS) strip 2-0 8-14 00:00: 00 Yes [id number] Use Daily. Dx E11.9 [facility] blood sugar diagnostic (ACCU-CHEK GUIDE TEST STRIPS) strip 2021-0 8-14 00:00: 00 Yes [id number] Use Daily. Dx E11.9 [facility] blood sugar diagnostic (ACCU-CHEK GUIDE TEST STRIPS) strip 2021-0 8-14 00:00: 00 Yes [id number] Use Daily. Dx E11.9 [facility] (ACCU-CHEK GUIDE TEST STRIPS) strip 2021-0 8-14 00:00: 00 Yes [id number] Use Daily. Dx E11.9 [facility] sugar diagnostic (ACCU-CHEK GUIDE TEST STRIPS) strip 2021-0 8-14 00:00: 00 Yes [id number] Use Daily. Dx E11.9 [facility] blood sugar diagnostic (ACCU-CHEK GUIDE TEST STRIPS) strip 2021-0 8-14 00:00: 00 Yes [id number] Use Daily. Dx E11.9 [facility] blood sugar diagnostic (ACCU-CHEK GUIDE TEST STRIPS) strip 2-0 8-14 00:00: 00 Yes [id number] Use Daily. Dx E11.9 [facility] blood sugar diagnostic (ACCU-CHEK GUIDE TEST STRIPS) strip 2-0 8-14 00:00: 00 Yes [id number] Use Daily. Dx E11.9 [facility] blood sugar diagnostic (ACCU-CHEK GUIDE TEST STRIPS) strip 2-0 8-14 00:00: 00 Yes [id number] Use Daily. Dx E11.9 [facility] blood sugar diagnostic (ACCU-CHEK GUIDE TEST STRIPS) strip 2-0 8-14 00:00: 00 Yes [id number] Use Daily. Dx E11.9 [facility] blood sugar diagnostic (ACCU-CHEK GUIDE TEST STRIPS) strip 2-0 8-14 00:00: 00 Yes [id number] Use Daily. Dx E11.9 [facility] blood sugar diagnostic (ACCU-CHEK GUIDE TEST STRIPS) strip 2-0 8-14 00:00: 00 Yes [id number] Use Daily. Dx E11.9 [facility] blood sugar diagnostic (ACCU-CHEK GUIDE TEST STRIPS) strip 2021-0 8-14 00:00: 00 Yes [id number] Use Daily. Dx E11.9 [facility] blood sugar diagnostic (ACCU-CHEK GUIDE TEST STRIPS) strip 2021-0 8-14 00:00: 00 Yes [id number] Use Daily. Dx E11.9 [facility] (ACCU-CHEK GUIDE TEST STRIPS) strip 2021-0 8-14 00:00: 00 Yes [id number] Use Daily. Dx E11.9 [facility] blood sugar diagnostic (ACCU-CHEK GUIDE TEST STRIPS) strip 2021-0 8-14 00:00: 00 Yes [id number] Use Daily. Dx E11.9 [facility] blood sugar diagnostic (ACCU-CHEK GUIDE TEST STRIPS) strip 2021-0 8-14 00:00: 00 Yes [id number] Use Daily. Dx E11.9 [facility] blood sugar diagnostic (ACCU-CHEK GUIDE TEST STRIPS) strip 2-0 8-14 00:00: 00 Yes [id number] Use Daily. Dx E11.9 [facility] blood sugar diagnostic (ACCU-CHEK GUIDE TEST STRIPS) strip 2-0 8-14 00:00: 00 Yes [id number] Use Daily. Dx E11.9 [facility] blood sugar diagnostic (ACCU-CHEK GUIDE TEST STRIPS) strip 2-0 8-14 00:00: 00 Yes [id number] Use Daily. Dx E11.9 [facility] blood sugar diagnostic (ACCU-CHEK GUIDE TEST STRIPS) strip 2-0 8-14 00:00: 00 Yes [id number] Use Daily. Dx E11.9 [facility] blood sugar diagnostic (ACCU-CHEK GUIDE TEST STRIPS) strip 2021-0 8-14 00:00: 00 Yes [id number] Use Daily. Dx E11.9 [facility] blood sugar diagnostic (ACCU-CHEK GUIDE TEST STRIPS) strip 2021-0 8-14 00:00: 00 Yes [id number] Use Daily. Dx E11.9 [facility] blood sugar diagnostic (ACCU-CHEK GUIDE TEST STRIPS) strip 2021-0 8-14 00:00: 00 Yes [id number] Use Daily. Dx E11.9 [facility] blood sugar diagnostic (ACCU-CHEK GUIDE TEST STRIPS) strip 2021-0 8-14 00:00: 00 Yes [id number] Use Daily. Dx E11.9 [facility] diagnostic (ACCU-CHEK GUIDE TEST STRIPS) strip 2021-0 8-14 00:00: 00 Yes [id number] Use Daily. Dx E11.9 [facility] blood sugar diagnostic (ACCU-CHEK GUIDE TEST STRIPS) strip 2021-0 8-14 00:00: 00 Yes [id number] Use Daily. Dx E11.9 [facility] blood sugar diagnostic (ACCU-CHEK GUIDE TEST STRIPS) strip 2021-0 8-14 00:00: 00 Yes [id number] Use Daily. Dx E11.9 [facility] blood sugar diagnostic (ACCU-CHEK GUIDE TEST STRIPS) strip 2021-0 8-14 00:00: 00 Yes [id number] Use Daily. Dx E11.9 [facility] blood sugar diagnostic (ACCU-CHEK GUIDE TEST STRIPS) strip 2021-0 8-14 00:00: 00 Yes [id number] Use Daily. Dx E11.9 [facility] blood sugar diagnostic (ACCU-CHEK GUIDE TEST STRIPS) strip 2021-0 8-14 00:00: 00 Yes [id number] Use Daily. Dx E11.9 [facility] blood sugar diagnostic (ACCU-CHEK GUIDE TEST STRIPS) strip 2-0 8-14 00:00: 00 Yes [id number] Use Daily. Dx E11.9 [facility] blood sugar diagnostic (ACCU-CHEK GUIDE TEST STRIPS) strip 2-0 8-14 00:00: 00 Yes [id number] Use Daily. Dx E11.9 [facility] blood sugar diagnostic (ACCU-CHEK GUIDE TEST STRIPS) strip 2021-0 8-14 00:00: 00 Yes [id number] Use Daily. Dx E11.9 [facility] blood sugar diagnostic (ACCU-CHEK GUIDE TEST STRIPS) strip 2021-0 8-14 00:00: 00 Yes [id number] Use Daily. Dx E11.9 [facility] blood sugar diagnostic (ACCU-CHEK GUIDE TEST STRIPS) strip 2021-0 8-14 00:00: 00 Yes [id number] Use Daily. Dx E11.9 [facility] sugar diagnostic (ACCU-CHEK GUIDE TEST STRIPS) strip 2021-0 8-14 00:00: 00 Yes [id number] Use Daily. Dx E11.9 [facility] blood sugar diagnostic (ACCU-CHEK GUIDE TEST STRIPS) strip 2021-0 8-14 00:00: 00 Yes [id number] Use Daily. Dx E11.9 [facility] blood sugar diagnostic (ACCU-CHEK GUIDE TEST STRIPS) strip 2021-0 8-14 00:00: 00 Yes [id number] Use Daily. Dx E11.9 [facility] blood sugar diagnostic (ACCU-CHEK GUIDE TEST STRIPS) strip 2021-0 8-14 00:00: 00 Yes [id number] Use Daily. Dx E11.9 [facility] blood sugar diagnostic (ACCU-CHEK GUIDE TEST STRIPS) strip 2021-0 8-14 00:00: 00 Yes [id number] Use Daily. Dx E11.9 [facility] blood sugar diagnostic (ACCU-CHEK GUIDE TEST STRIPS) strip 2-0 8-14 00:00: 00 Yes [id number] Use Daily. Dx E11.9 [facility] blood sugar diagnostic (ACCU-CHEK GUIDE TEST STRIPS) strip 2-0 8-14 00:00: 00 Yes [id number] Use Daily. Dx E11.9 [facility] blood sugar diagnostic (ACCU-CHEK GUIDE TEST STRIPS) strip 2-0 8-14 00:00: 00 Yes [id number] Use Daily. Dx E11.9 [facility] blood sugar diagnostic (ACCU-CHEK GUIDE TEST STRIPS) strip 2021-0 8-14 00:00: 00 Yes [id number] Use Daily. Dx E11.9 [facility] blood sugar diagnostic (ACCU-CHEK GUIDE TEST STRIPS) strip 2-0 8-14 00:00: 00 Yes [id number] Use Daily. Dx E11.9 [facility] blood sugar diagnostic (ACCU-CHEK GUIDE TEST STRIPS) strip 2021-0 8-14 00:00: 00 Yes [id number] Use Daily. Dx E11.9 [facility] blood sugar diagnostic (ACCU-CHEK GUIDE TEST STRIPS) strip 2021-0 8-14 00:00: 00 Yes [id number] Use Daily. Dx E11.9 [facility] blood sugar diagnostic (ACCU-CHEK GUIDE TEST STRIPS) strip 2021-0 8-14 00:00: 00 Yes [id number] Use Daily. Dx E11.9 [facility] blood sugar diagnostic (ACCU-CHEK GUIDE TEST STRIPS) strip 2021-0 8-14 00:00: 00 Yes [id number] Use Daily. Dx E11.9 [facility] blood sugar diagnostic (ACCU-CHEK GUIDE TEST STRIPS) strip 2-0 8-14 00:00: 00 Yes [id number] Use Daily. Dx E11.9 [facility] blood sugar diagnostic (ACCU-CHEK GUIDE TEST STRIPS) strip 2021-0 8-14 00:00: 00 Yes [id number] Use Daily. Dx E11.9 [facility] blood sugar diagnostic (ACCU-CHEK GUIDE TEST STRIPS) strip 2-0 8-14 00:00: 00 Yes [id number] Use Daily. Dx E11.9 [facility] blood sugar diagnostic (ACCU-CHEK GUIDE TEST STRIPS) strip 2-0 8-14 00:00: 00 Yes [id number] Use Daily. Dx E11.9 [facility] blood sugar diagnostic (ACCU-CHEK GUIDE TEST STRIPS) strip 2-0 8-14 00:00: 00 Yes [id number] Use Daily. Dx E11.9 [facility] blood sugar diagnostic (ACCU-CHEK GUIDE TEST STRIPS) strip 2021-0 8-14 00:00: 00 Yes [id number] Use Daily. Dx E11.9 [facility] blood sugar diagnostic (ACCU-CHEK GUIDE TEST STRIPS) strip 2-0 8-14 00:00: 00 Yes [id number] Use Daily. Dx E11.9 [facility] blood sugar diagnostic (ACCU-CHEK GUIDE TEST STRIPS) strip 2-0 8-14 00:00: 00 Yes [id number] Use Daily. Dx E11.9 [facility] blood sugar diagnostic (ACCU-CHEK GUIDE TEST STRIPS) strip 2021-0 8-14 00:00: 00 Yes [id number] Use Daily. Dx E11.9 [facility] blood sugar diagnostic (ACCU-CHEK GUIDE TEST STRIPS) strip 2021-0 8-14 00:00: 00 Yes [id number] Use Daily. Dx E11.9 [facility] blood sugar diagnostic (ACCU-CHEK GUIDE TEST STRIPS) strip 2021-0 8-14 00:00: 00 Yes [id number] Use Daily. Dx E11.9 [facility] blood sugar diagnostic (ACCU-CHEK GUIDE TEST STRIPS) strip 2-0 8-14 00:00: 00 Yes [id number] Use Daily. Dx E11.9 [facility] blood sugar diagnostic (ACCU-CHEK GUIDE TEST STRIPS) strip 2-0 8-14 00:00: 00 Yes [id number] Use Daily. Dx E11.9 [facility] blood sugar diagnostic (ACCU-CHEK GUIDE TEST STRIPS) strip 2-0 8-14 00:00: 00 Yes [id number] Use Daily. Dx E11.9 [facility] blood sugar diagnostic (ACCU-CHEK GUIDE TEST STRIPS) strip 2-0 8-14 00:00: 00 Yes [id number] Use Daily. Dx E11.9 [facility] blood sugar diagnostic (ACCU-CHEK GUIDE TEST STRIPS) strip 2022-0 8-14 00:00: 00 Yes [id number] Use Daily. Dx E11.9 [facility] blood sugar diagnostic (ACCU-CHEK GUIDE TEST STRIPS) strip 2-0 8-14 00:00: 00 Yes [id number] Use Daily. Dx E11.9 [facility] blood sugar diagnostic (ACCU-CHEK GUIDE TEST STRIPS) strip 2-0 8-14 00:00: 00 Yes [id number] Use Daily. Dx E11.9 [facility] blood sugar diagnostic (ACCU-CHEK GUIDE TEST STRIPS) strip 2-0 8-14 00:00: 00 Yes [id number] Use Daily. Dx E11.9 [facility] blood sugar diagnostic (ACCU-CHEK GUIDE TEST STRIPS) strip 2-0 8-14 00:00: 00 Yes [id number] Use Daily. Dx E11.9 [facility] sugar diagnostic (ACCU-CHEK GUIDE TEST STRIPS) strip 2021-0 8-14 00:00: 00 Yes [id number] Use Daily. Dx E11.9 [facility] blood sugar diagnostic (ACCU-CHEK GUIDE TEST STRIPS) strip 2021-0 8-14 00:00: 00 Yes [id number] Use Daily. Dx E11.9 [facility] blood sugar diagnostic (ACCU-CHEK GUIDE TEST STRIPS) strip 2-0 8-14 00:00: 00 Yes [id number] Use Daily. Dx E11.9 [facility] blood sugar diagnostic (ACCU-CHEK GUIDE TEST STRIPS) strip 2-0 8-14 00:00: 00 Yes [id number] Use Daily. Dx E11.9 [facility] blood sugar diagnostic (ACCU-CHEK GUIDE TEST STRIPS) strip 2-0 8-14 00:00: 00 Yes [id number] Use Daily. Dx E11.9 [facility] blood sugar diagnostic (ACCU-CHEK GUIDE TEST STRIPS) strip 2-0 8-14 00:00: 00 Yes [id number] Use Daily. Dx E11.9 [facility] blood sugar diagnostic (ACCU-CHEK GUIDE TEST STRIPS) strip 2-0 8-14 00:00: 00 Yes [id number] Use Daily. Dx E11.9 [facility] blood sugar diagnostic (ACCU-CHEK GUIDE TEST STRIPS) strip 2-0 8-14 00:00: 00 Yes [id number] Use Daily. Dx E11.9 [facility] blood sugar diagnostic (ACCU-CHEK GUIDE TEST STRIPS) strip 2-0 8-14 00:00: 00 Yes [id number] Use Daily. Dx E11.9 [facility] blood sugar diagnostic (ACCU-CHEK GUIDE TEST STRIPS) strip 2021-0 8-14 00:00: 00 Yes [id number] Use Daily. Dx E11.9 [facility] blood sugar diagnostic (ACCU-CHEK GUIDE TEST STRIPS) strip 2021-0 8-14 00:00: 00 Yes [id number] Use Daily. Dx E11.9 [facility] blood sugar diagnostic (ACCU-CHEK GUIDE TEST STRIPS) strip 2021-0 8-14 00:00: 00 Yes [id number] Use Daily. Dx E11.9 [facility] (ACCU-CHEK GUIDE TEST STRIPS) strip 2021-0 8-14 00:00: 00 Yes [id number] Use Daily. Dx E11.9 [facility] blood sugar diagnostic (ACCU-CHEK GUIDE TEST STRIPS) strip 2021-0 8-14 00:00: 00 Yes [id number] Use Daily. Dx E11.9 [facility] sugar diagnostic (ACCU-CHEK GUIDE TEST STRIPS) strip 2021-0 8-14 00:00: 00 Yes [id number] Use Daily. Dx E11.9 [facility] blood sugar diagnostic (ACCU-CHEK GUIDE TEST STRIPS) strip 2-0 8-14 00:00: 00 Yes [id number] Use Daily. Dx E11.9 [facility] blood sugar diagnostic (ACCU-CHEK GUIDE TEST STRIPS) strip 2-0 8-14 00:00: 00 Yes [id number] Use Daily. Dx E11.9 [facility] blood sugar diagnostic (ACCU-CHEK GUIDE TEST STRIPS) strip 2-0 8-14 00:00: 00 Yes [id number] Use Daily. Dx E11.9 [facility] blood sugar diagnostic (ACCU-CHEK GUIDE TEST STRIPS) strip 2021-0 8-14 00:00: 00 Yes [id number] Use Daily. Dx E11.9 [facility] blood sugar diagnostic (ACCU-CHEK GUIDE TEST STRIPS) strip 2021-0 8-14 00:00: 00 Yes [id number] Use Daily. Dx E11.9 [facility] blood sugar diagnostic (ACCU-CHEK GUIDE TEST STRIPS) strip 2021-0 814 00:00: 00 Yes [id number] Use Daily. Dx E11.9 [facility] SIMVASTATIN 40 mg tablet 2021-0 8-08 00:00: 00 Yes [id number] 40mg TAKE 1 TABLET BY MOUTH AT BEDTIME [facility] SIMVASTATIN 40 mg tablet 2021-0 808 00:00: 00 Yes [id number] 40mg TAKE 1 TABLET BY MOUTH AT BEDTIME [facility] SIMVASTATIN 40 mg tablet 2-0 808 00:00: 00 Yes [id number] 40mg TAKE 1 TABLET BY MOUTH AT BEDTIME [facility] SIMVASTATIN 40 mg tablet 2-0 8 00:00: 00 Yes [id number] 40mg TAKE 1 TABLET BY MOUTH AT BEDTIME [facility] SIMVASTATIN 40 mg tablet 2021-0 02-21 00:00: 00 Yes [id number] 40mg TAKE 1 TABLET BY MOUTH AT BEDTIME [facility] SIMVASTATIN 40 mg tablet 2021-0 808 00:00: 00 Yes [id number] 40mg TAKE 1 TABLET BY MOUTH AT BEDTIME [facility] SIMVASTATIN 40 mg tablet 2-0 02-21 00:00: 00 Yes [id number] 40mg TAKE 1 TABLET BY MOUTH AT BEDTIME [facility] SIMVASTATIN 40 mg tablet 2-0 8 00:00: 00 Yes [id number] 40mg TAKE 1 TABLET BY MOUTH AT BEDTIME [facility] SIMVASTATIN 40 mg tablet 2-0 808 00:00: 00 Yes [id number] 40mg TAKE 1 TABLET BY MOUTH AT BEDTIME [facility] SIMVASTATIN 40 mg tablet 2-0 8-08 00:00: 00 Yes [id number] 40mg TAKE 1 TABLET BY MOUTH AT BEDTIME [facility] SIMVASTATIN 40 mg tablet 2-0 8 00:00: 00 Yes [id number] 40mg TAKE 1 TABLET BY MOUTH AT BEDTIME [facility] SIMVASTATIN 40 mg tablet 2021-0 8 00:00: 00 Yes [id number] 40mg TAKE 1 TABLET BY MOUTH AT BEDTIME [facility] SIMVASTATIN 40 mg tablet 2021-0 8 00:00: 00 Yes [id number] 40mg TAKE 1 TABLET BY MOUTH AT BEDTIME [facility] SIMVASTATIN 40 mg tablet 2-0 8 00:00: 00 Yes [id number] 40mg TAKE 1 TABLET BY MOUTH AT BEDTIME [facility] SIMVASTATIN 40 mg tablet 2021-0 02-21 00:00: 00 Yes [id number] 40mg TAKE 1 TABLET BY MOUTH AT BEDTIME [facility] SIMVASTATIN 40 mg tablet 2021-0 02-21 00:00: 00 Yes [id number] 40mg TAKE 1 TABLET BY MOUTH AT BEDTIME [facility] SIMVASTATIN 40 mg tablet 2-0 02-21 00:00: 00 Yes [id number] 40mg TAKE 1 TABLET BY MOUTH AT BEDTIME [facility] SIMVASTATIN 40 mg tablet 2021-0 02-21 00:00: 00 Yes [id number] 40mg TAKE 1 TABLET BY MOUTH AT BEDTIME [facility] SIMVASTATIN 40 mg tablet 2021-0 02-21 00:00: 00 Yes [id number] 40mg TAKE 1 TABLET BY MOUTH AT BEDTIME [facility] SIMVASTATIN 40 mg tablet 2021-0 8 00:00: 00 Yes [id number] 40mg TAKE 1 TABLET BY MOUTH AT BEDTIME [facility] SIMVASTATIN 40 mg tablet 2021-0 8 00:00: 00 Yes [id number] 40mg TAKE 1 TABLET BY MOUTH AT BEDTIME [facility] SIMVASTATIN 40 mg tablet 2-0 8 00:00: 00 Yes [id number] 40mg TAKE 1 TABLET BY MOUTH AT BEDTIME [facility] SIMVASTATIN 40 mg tablet 2-0 8 00:00: 00 Yes [id number] 40mg TAKE 1 TABLET BY MOUTH AT BEDTIME [facility] SIMVASTATIN 40 mg tablet 808 00:00: 00 07-20 00:00 :00 No [id number] 40mg TAKE 1 TABLET BY MOUTH AT BEDTIME [facility] SIMVASTATIN 40 mg tablet 8 00:00: 00 07-20 00:00 :00 No [id number] 40mg TAKE 1 TABLET BY MOUTH AT BEDTIME [facility] acetaminoph en-codeine (TYLENOL-CO DEINE #3) 300-30 mg tablet 02-07 00:00: 00 Yes [id number] 2{tbl} Take 2 tablets by mouth every 6 (six) hours as needed for Pain (scale 4-6) or Pain (scale 7-10). Indication s: acute pain [facility] acetaminoph en-codeine (TYLENOL-CO DEINE #3) 300-30 mg tablet 02-07 00:00: 00 Yes [id number] 2{tbl} Take 2 tablets by mouth every 6 (six) hours as needed for Pain (scale 4-6) or Pain (scale 7-10). Indication s: acute pain [facility] acetaminoph en-codeine (TYLENOL-CO DEINE #3) 300-30 mg tablet 02-07 00:00: 00 Yes [id number] 2{tbl} Take 2 tablets by mouth every 6 (six) hours as needed for Pain (scale 4-6) or Pain (scale 7-10). Indication s: acute pain [facility] acetaminoph en-codeine (TYLENOL-CO DEINE #3) 300-30 mg tablet 02-07 00:00: 00 Yes [id number] 2{tbl} Take 2 tablets by mouth every 6 (six) hours as needed for Pain (scale 4-6) or Pain (scale 7-10). Indication s: acute pain [facility] acetaminoph en-codeine (TYLENOL-CO DEINE #3) 300-30 mg tablet 02-07 00:00: 00 Yes [id number] 2{tbl} Take 2 tablets by mouth every 6 (six) hours as needed for Pain (scale 4-6) or Pain (scale 7-10). Indication s: acute pain [facility] acetaminoph en-codeine (TYLENOL-CO DEINE #3) 300-30 mg tablet 02-07 00:00: 00 Yes [id number] 2{tbl} Take 2 tablets by mouth every 6 (six) hours as needed for Pain (scale 4-6) or Pain (scale 7-10). Indication s: acute pain [facility] acetaminoph en-codeine (TYLENOL-CO DEINE #3) 300-30 mg tablet 02-07 00:00: 00 Yes [id number] 2{tbl} Take 2 tablets by mouth every 6 (six) hours as needed for Pain (scale 4-6) or Pain (scale 7-10). Indication s: acute pain [facility] acetaminoph en-codeine (TYLENOL-CO DEINE #3) 300-30 mg tablet 02-07 00:00: 00 Yes [id number] 2{tbl} Take 2 tablets by mouth every 6 (six) hours as needed for Pain (scale 4-6) or Pain (scale 7-10). Indication s: acute pain [facility] acetaminoph en-codeine (TYLENOL-CO DEINE #3) 300-30 mg tablet 02-07 00:00: 00 Yes 4647 2{tbl} Take 2 tablets by mouth every 6 (six) hours as needed for Pain (scale 4-6) or Pain (scale 7-10). Indication s: acute pain [facility] acetaminoph en-codeine (TYLENOL-CO DEINE #3) 300-30 mg tablet 02-07 00:00: 00 Yes 4647 2{tbl} Take 2 tablets by mouth every 6 (six) hours as needed for Pain (scale 4-6) or Pain (scale 7-10). Indication s: acute pain [facility] acetaminoph en-codeine (TYLENOL-CO DEINE #3) 300-30 mg tablet 02-07 00:00: 00 Yes 4647 2{tbl} Take 2 tablets by mouth every 6 (six) hours as needed for Pain (scale 4-6) or Pain (scale 7-10). Indication s: acute pain [facility] acetaminoph en-codeine (TYLENOL-CO DEINE #3) 300-30 mg tablet 02-07 00:00: 00 Yes 4647 2{tbl} Take 2 tablets by mouth every 6 (six) hours as needed for Pain (scale 4-6) or Pain (scale 7-10). Indication s: acute pain [facility] acetaminoph en-codeine (TYLENOL-CO DEINE #3) 300-30 mg tablet 02-07 00:00: 00 Yes 4647 2{tbl} Take 2 tablets by mouth every 6 (six) hours as needed for Pain (scale 4-6) or Pain (scale 7-10). Indication s: acute pain [facility] acetaminoph en-codeine (TYLENOL-CO DEINE #3) 300-30 mg tablet 02-07 00:00: 00 Yes 4647 2{tbl} Take 2 tablets by mouth every 6 (six) hours as needed for Pain (scale 4-6) or Pain (scale 7-10). Indication s: acute pain [facility] acetaminoph en-codeine (TYLENOL-CO DEINE #3) 300-30 mg tablet 02-07 00:00: 00 Yes 4647 2{tbl} Take 2 tablets by mouth every 6 (six) hours as needed for Pain (scale 4-6) or Pain (scale 7-10). Indication s: acute pain [facility] acetaminoph en-codeine (TYLENOL-CO DEINE #3) 300-30 mg tablet 02-07 00:00: 00 Yes 4647 2{tbl} Take 2 tablets by mouth every 6 (six) hours as needed for Pain (scale 4-6) or Pain (scale 7-10). Indication s: acute pain [facility] acetaminoph en-codeine (TYLENOL-CO DEINE #3) 300-30 mg tablet 2021-02-07 00:00: 00 Yes 4647 2{tbl} Take 2 tablets by mouth every 6 (six) hours as needed for Pain (scale 4-6) or Pain (scale 7-10). Indication s: acute pain [facility] acetaminoph en-codeine (TYLENOL-CO DEINE #3) 300-30 mg tablet 02-07 00:00: 00 Yes 4647 2{tbl} Take 2 tablets by mouth every 6 (six) hours as needed for Pain (scale 4-6) or Pain (scale 7-10). Indication s: acute pain [facility] acetaminoph en-codeine (TYLENOL-CO DEINE #3) 300-30 mg tablet 02-07 00:00: 00 Yes 4647 2{tbl} Take 2 tablets by mouth every 6 (six) hours as needed for Pain (scale 4-6) or Pain (scale 7-10). Indication s: acute pain [facility] acetaminoph en-codeine (TYLENOL-CO DEINE #3) 300-30 mg tablet 02-07 00:00: 00 Yes 4647 2{tbl} Take 2 tablets by mouth every 6 (six) hours as needed for Pain (scale 4-6) or Pain (scale 7-10). Indication s: acute pain [facility] acetaminoph en-codeine (TYLENOL-CO DEINE #3) 300-30 mg tablet 02-07 00:00: 00 Yes 4647 2{tbl} Take 2 tablets by mouth every 6 (six) hours as needed for Pain (scale 4-6) or Pain (scale 7-10). Indication s: acute pain [facility] acetaminoph en-codeine (TYLENOL-CO DEINE #3) 300-30 mg tablet 02-07 00:00: 00 Yes 4647 2{tbl} Take 2 tablets by mouth every 6 (six) hours as needed for Pain (scale 4-6) or Pain (scale 7-10). Indication s: acute pain [facility] acetaminoph en-codeine (TYLENOL-CO DEINE #3) 300-30 mg tablet 02-07 00:00: 00 Yes 4647 2{tbl} Take 2 tablets by mouth every 6 (six) hours as needed for Pain (scale 4-6) or Pain (scale 7-10). Indication s: acute pain [facility] acetaminoph en-codeine (TYLENOL-CO DEINE #3) 300-30 mg tablet 02-07 00:00: 00 Yes 4647 2{tbl} Take 2 tablets by mouth every 6 (six) hours as needed for Pain (scale 4-6) or Pain (scale 7-10). Indication s: acute pain [facility] acetaminoph en-codeine (TYLENOL-CO DEINE #3) 300-30 mg tablet 02-07 00:00: 00 Yes 4647 2{tbl} Take 2 tablets by mouth every 6 (six) hours as needed for Pain (scale 4-6) or Pain (scale 7-10). Indication s: acute pain [facility] acetaminoph en-codeine (TYLENOL-CO DEINE #3) 300-30 mg tablet 02-07 00:00: 00 Yes 4647 2{tbl} Take 2 tablets by mouth every 6 (six) hours as needed for Pain (scale 4-6) or Pain (scale 7-10). Indication s: acute pain [facility] acetaminoph en-codeine (TYLENOL-CO DEINE #3) 300-30 mg tablet 02-07 00:00: 00 Yes 4647 2{tbl} Take 2 tablets by mouth every 6 (six) hours as needed for Pain (scale 4-6) or Pain (scale 7-10). Indication s: acute pain [facility] acetaminoph en-codeine (TYLENOL-CO DEINE #3) 300-30 mg tablet 02-07 00:00: 00 Yes 4647 2{tbl} Take 2 tablets by mouth every 6 (six) hours as needed for Pain (scale 4-6) or Pain (scale 7-10). Indication s: acute pain [facility] acetaminoph en-codeine (TYLENOL-CO DEINE #3) 300-30 mg tablet 02-07 00:00: 00 Yes 4647 2{tbl} Take 2 tablets by mouth every 6 (six) hours as needed for Pain (scale 4-6) or Pain (scale 7-10). Indication s: acute pain [facility] acetaminoph en-codeine (TYLENOL-CO DEINE #3) 300-30 mg tablet 02-07 00:00: 00 Yes 4647 2{tbl} Take 2 tablets by mouth every 6 (six) hours as needed for Pain (scale 4-6) or Pain (scale 7-10). Indication s: acute pain [facility] acetaminoph en-codeine (TYLENOL-CO DEINE #3) 300-30 mg tablet 02-07 00:00: 00 Yes 4647 2{tbl} Take 2 tablets by mouth every 6 (six) hours as needed for Pain (scale 4-6) or Pain (scale 7-10). Indication s: acute pain [facility] acetaminoph en-codeine (TYLENOL-CO DEINE #3) 300-30 mg tablet 02-07 00:00: 00 Yes 4647 2{tbl} Take 2 tablets by mouth every 6 (six) hours as needed for Pain (scale 4-6) or Pain (scale 7-10). Indication s: acute pain [facility] acetaminoph en-codeine (TYLENOL-CO DEINE #3) 300-30 mg tablet 02-07 00:00: 00 Yes 4647 2{tbl} Take 2 tablets by mouth every 6 (six) hours as needed for Pain (scale 4-6) or Pain (scale 7-10). Indication s: acute pain [facility] acetaminoph en-codeine (TYLENOL-CO DEINE #3) 300-30 mg tablet 02-07 00:00: 00 Yes 4647 2{tbl} Take 2 tablets by mouth every 6 (six) hours as needed for Pain (scale 4-6) or Pain (scale 7-10). Indication s: acute pain [facility] acetaminoph en-codeine (TYLENOL-CO DEINE #3) 300-30 mg tablet 02-07 00:00: 00 Yes 4647 2{tbl} Take 2 tablets by mouth every 6 (six) hours as needed for Pain (scale 4-6) or Pain (scale 7-10). Indication s: acute pain [facility] acetaminoph en-codeine (TYLENOL-CO DEINE #3) 300-30 mg tablet 02-07 00:00: 00 Yes 4647 2{tbl} Take 2 tablets by mouth every 6 (six) hours as needed for Pain (scale 4-6) or Pain (scale 7-10). Indication s: acute pain [facility] acetaminoph en-codeine (TYLENOL-CO DEINE #3) 300-30 mg tablet 02-07 00:00: 00 Yes 4647 2{tbl} Take 2 tablets by mouth every 6 (six) hours as needed for Pain (scale 4-6) or Pain (scale 7-10). Indication s: acute pain [facility] acetaminoph en-codeine (TYLENOL-CO DEINE #3) 300-30 mg tablet 02-07 00:00: 00 Yes 4647 2{tbl} Take 2 tablets by mouth every 6 (six) hours as needed for Pain (scale 4-6) or Pain (scale 7-10). Indication s: acute pain [facility] acetaminoph en-codeine (TYLENOL-CO DEINE #3) 300-30 mg tablet 02-07 00:00: 00 Yes 4647 2{tbl} Take 2 tablets by mouth every 6 (six) hours as needed for Pain (scale 4-6) or Pain (scale 7-10). Indication s: acute pain [facility] acetaminoph en-codeine (TYLENOL-CO DEINE #3) 300-30 mg tablet 02-07 00:00: 00 Yes 4647 2{tbl} Take 2 tablets by mouth every 6 (six) hours as needed for Pain (scale 4-6) or Pain (scale 7-10). Indication s: acute pain [facility] acetaminoph en-codeine (TYLENOL-CO DEINE #3) 300-30 mg tablet 2021-02-07 00:00: 00 Yes 4647 2{tbl} Take 2 tablets by mouth every 6 (six) hours as needed for Pain (scale 4-6) or Pain (scale 7-10). Indication s: acute pain [facility] acetaminoph en-codeine (TYLENOL-CO DEINE #3) 300-30 mg tablet 02-07 00:00: 00 Yes 4647 2{tbl} Take 2 tablets by mouth every 6 (six) hours as needed for Pain (scale 4-6) or Pain (scale 7-10). Indication s: acute pain [facility] acetaminoph en-codeine (TYLENOL-CO DEINE #3) 300-30 mg tablet 02-07 00:00: 00 Yes 4647 2{tbl} Take 2 tablets by mouth every 6 (six) hours as needed for Pain (scale 4-6) or Pain (scale 7-10). Indication s: acute pain [facility] acetaminoph en-codeine (TYLENOL-CO DEINE #3) 300-30 mg tablet 02-07 00:00: 00 Yes 4647 2{tbl} Take 2 tablets by mouth every 6 (six) hours as needed for Pain (scale 4-6) or Pain (scale 7-10). Indication s: acute pain [facility] acetaminoph en-codeine (TYLENOL-CO DEINE #3) 300-30 mg tablet 02-07 00:00: 00 Yes 4647 2{tbl} Take 2 tablets by mouth every 6 (six) hours as needed for Pain (scale 4-6) or Pain (scale 7-10). Indication s: acute pain [facility] acetaminoph en-codeine (TYLENOL-CO DEINE #3) 300-30 mg tablet 02-07 00:00: 00 Yes 4647 2{tbl} Take 2 tablets by mouth every 6 (six) hours as needed for Pain (scale 4-6) or Pain (scale 7-10). Indication s: acute pain [facility] acetaminoph en-codeine (TYLENOL-CO DEINE #3) 300-30 mg tablet 02-07 00:00: 00 Yes 4647 2{tbl} Take 2 tablets by mouth every 6 (six) hours as needed for Pain (scale 4-6) or Pain (scale 7-10). Indication s: acute pain [facility] acetaminoph en-codeine (TYLENOL-CO DEINE #3) 300-30 mg tablet 02-07 00:00: 00 Yes 4647 2{tbl} Take 2 tablets by mouth every 6 (six) hours as needed for Pain (scale 4-6) or Pain (scale 7-10). Indication s: acute pain [facility] acetaminoph en-codeine (TYLENOL-CO DEINE #3) 300-30 mg tablet 02-07 00:00: 00 Yes 4647 2{tbl} Take 2 tablets by mouth every 6 (six) hours as needed for Pain (scale 4-6) or Pain (scale 7-10). Indication s: acute pain [facility] acetaminoph en-codeine (TYLENOL-CO DEINE #3) 300-30 mg tablet 02-07 00:00: 00 Yes 4647 2{tbl} Take 2 tablets by mouth every 6 (six) hours as needed for Pain (scale 4-6) or Pain (scale 7-10). Indication s: acute pain [facility] acetaminoph en-codeine (TYLENOL-CO DEINE #3) 300-30 mg tablet 02-07 00:00: 00 Yes 4647 2{tbl} Take 2 tablets by mouth every 6 (six) hours as needed for Pain (scale 4-6) or Pain (scale 7-10). Indication s: acute pain [facility] acetaminoph en-codeine (TYLENOL-CO DEINE #3) 300-30 mg tablet 02-07 00:00: 00 Yes 4647 2{tbl} Take 2 tablets by mouth every 6 (six) hours as needed for Pain (scale 4-6) or Pain (scale 7-10). Indication s: acute pain [facility] acetaminoph en-codeine (TYLENOL-CO DEINE #3) 300-30 mg tablet 02-07 00:00: 00 Yes 4647 2{tbl} Take 2 tablets by mouth every 6 (six) hours as needed for Pain (scale 4-6) or Pain (scale 7-10). Indication s: acute pain [facility] acetaminoph en-codeine (TYLENOL-CO DEINE #3) 300-30 mg tablet 02-07 00:00: 00 Yes 4647 2{tbl} Take 2 tablets by mouth every 6 (six) hours as needed for Pain (scale 4-6) or Pain (scale 7-10). Indication s: acute pain [facility] acetaminoph en-codeine (TYLENOL-CO DEINE #3) 300-30 mg tablet 02-07 00:00: 00 Yes 4647 2{tbl} Take 2 tablets by mouth every 6 (six) hours as needed for Pain (scale 4-6) or Pain (scale 7-10). Indication s: acute pain [facility] acetaminoph en-codeine (TYLENOL-CO DEINE #3) 300-30 mg tablet 02-07 00:00: 00 Yes 4647 2{tbl} Take 2 tablets by mouth every 6 (six) hours as needed for Pain (scale 4-6) or Pain (scale 7-10). Indication s: acute pain [facility] acetaminoph en-codeine (TYLENOL-CO DEINE #3) 300-30 mg tablet 02-07 00:00: 00 Yes 4647 2{tbl} Take 2 tablets by mouth every 6 (six) hours as needed for Pain (scale 4-6) or Pain (scale 7-10). Indication s: acute pain [facility] acetaminoph en-codeine (TYLENOL-CO DEINE #3) 300-30 mg tablet 02-07 00:00: 00 Yes 4647 2{tbl} Take 2 tablets by mouth every 6 (six) hours as needed for Pain (scale 4-6) or Pain (scale 7-10). Indication s: acute pain [facility] acetaminoph en-codeine (TYLENOL-CO DEINE #3) 300-30 mg tablet 02-07 00:00: 00 Yes 4647 2{tbl} Take 2 tablets by mouth every 6 (six) hours as needed for Pain (scale 4-6) or Pain (scale 7-10). Indication s: acute pain [facility] acetaminoph en-codeine (TYLENOL-CO DEINE #3) 300-30 mg tablet 02-07 00:00: 00 Yes 4647 2{tbl} Take 2 tablets by mouth every 6 (six) hours as needed for Pain (scale 4-6) or Pain (scale 7-10). Indication s: acute pain [facility] acetaminoph en-codeine (TYLENOL-CO DEINE #3) 300-30 mg tablet 02-07 00:00: 00 Yes 4647 2{tbl} Take 2 tablets by mouth every 6 (six) hours as needed for Pain (scale 4-6) or Pain (scale 7-10). Indication s: acute pain [facility] acetaminoph en-codeine (TYLENOL-CO DEINE #3) 300-30 mg tablet 02-07 00:00: 00 Yes 4647 2{tbl} Take 2 tablets by mouth every 6 (six) hours as needed for Pain (scale 4-6) or Pain (scale 7-10). Indication s: acute pain [facility] acetaminoph en-codeine (TYLENOL-CO DEINE #3) 300-30 mg tablet 02-07 00:00: 00 Yes 4647 2{tbl} Take 2 tablets by mouth every 6 (six) hours as needed for Pain (scale 4-6) or Pain (scale 7-10). Indication s: acute pain [facility] acetaminoph en-codeine (TYLENOL-CO DEINE #3) 300-30 mg tablet 02-07 00:00: 00 Yes 4647 2{tbl} Take 2 tablets by mouth every 6 (six) hours as needed for Pain (scale 4-6) or Pain (scale 7-10). Indication s: acute pain [facility] acetaminoph en-codeine (TYLENOL-CO DEINE #3) 300-30 mg tablet 0 02-07 00:00: 00 Yes 4647 2{tbl} Take 2 tablets by mouth every 6 (six) hours as needed for Pain (scale 4-6) or Pain (scale 7-10). Indication s: acute pain [facility] acetaminoph en-codeine (TYLENOL-CO DEINE #3) 300-30 mg tablet 2021-0 02-07 00:00: 00 Yes 4647 2{tbl} Take 2 tablets by mouth every 6 (six) hours as needed for Pain (scale 4-6) or Pain (scale 7-10). Indication s: acute pain [facility] acetaminoph en-codeine (TYLENOL-CO DEINE #3) 300-30 mg tablet 02-07 00:00: 00 Yes 4647 2{tbl} Take 2 tablets by mouth every 6 (six) hours as needed for Pain (scale 4-6) or Pain (scale 7-10). Indication s: acute pain [facility] acetaminoph en-codeine (TYLENOL-CO DEINE #3) 300-30 mg tablet 02-07 00:00: 00 Yes 4647 2{tbl} Take 2 tablets by mouth every 6 (six) hours as needed for Pain (scale 4-6) or Pain (scale 7-10). Indication s: acute pain [facility] acetaminoph en-codeine (TYLENOL-CO DEINE #3) 300-30 mg tablet 02-07 00:00: 00 Yes 4647 2{tbl} Take 2 tablets by mouth every 6 (six) hours as needed for Pain (scale 4-6) or Pain (scale 7-10). Indication s: acute pain [facility] acetaminoph en-codeine (TYLENOL-CO DEINE #3) 300-30 mg tablet 2021-0 02-07 00:00: 00 Yes 4647 2{tbl} Take 2 tablets by mouth every 6 (six) hours as needed for Pain (scale 4-6) or Pain (scale 7-10). Indication s: acute pain [facility] acetaminoph en-codeine (TYLENOL-CO DEINE #3) 300-30 mg tablet 02-07 00:00: 00 Yes 4647 2{tbl} Take 2 tablets by mouth every 6 (six) hours as needed for Pain (scale 4-6) or Pain (scale 7-10). Indication s: acute pain [facility] acetaminoph en-codeine (TYLENOL-CO DEINE #3) 300-30 mg tablet 02-07 00:00: 00 Yes 4647 2{tbl} Take 2 tablets by mouth every 6 (six) hours as needed for Pain (scale 4-6) or Pain (scale 7-10). Indication s: acute pain [facility] acetaminoph en-codeine (TYLENOL-CO DEINE #3) 300-30 mg tablet 02-07 00:00: 00 Yes 4647 2{tbl} Take 2 tablets by mouth every 6 (six) hours as needed for Pain (scale 4-6) or Pain (scale 7-10). Indication s: acute pain [facility] acetaminoph en-codeine (TYLENOL-CO DEINE #3) 300-30 mg tablet 02-07 00:00: 00 Yes 4647 2{tbl} Take 2 tablets by mouth every 6 (six) hours as needed for Pain (scale 4-6) or Pain (scale 7-10). Indication s: acute pain [facility] acetaminoph en-codeine (TYLENOL-CO DEINE #3) 300-30 mg tablet 02-07 00:00: 00 Yes 4647 2{tbl} Take 2 tablets by mouth every 6 (six) hours as needed for Pain (scale 4-6) or Pain (scale 7-10). Indication s: acute pain [facility] acetaminoph en-codeine (TYLENOL-CO DEINE #3) 300-30 mg tablet 02-07 00:00: 00 Yes 4647 2{tbl} Take 2 tablets by mouth every 6 (six) hours as needed for Pain (scale 4-6) or Pain (scale 7-10). Indication s: acute pain [facility] acetaminoph en-codeine (TYLENOL-CO DEINE #3) 300-30 mg tablet 02-07 00:00: 00 Yes 4647 2{tbl} Take 2 tablets by mouth every 6 (six) hours as needed for Pain (scale 4-6) or Pain (scale 7-10). Indication s: acute pain [facility] acetaminoph en-codeine (TYLENOL-CO DEINE #3) 300-30 mg tablet 02-07 00:00: 00 Yes 4647 2{tbl} Take 2 tablets by mouth every 6 (six) hours as needed for Pain (scale 4-6) or Pain (scale 7-10). Indication s: acute pain [facility] acetaminoph en-codeine (TYLENOL-CO DEINE #3) 300-30 mg tablet 02-07 00:00: 00 Yes 4647 2{tbl} Take 2 tablets by mouth every 6 (six) hours as needed for Pain (scale 4-6) or Pain (scale 7-10). Indication s: acute pain [facility] acetaminoph en-codeine (TYLENOL-CO DEINE #3) 300-30 mg tablet 02-07 00:00: 00 Yes 4647 2{tbl} Take 2 tablets by mouth every 6 (six) hours as needed for Pain (scale 4-6) or Pain (scale 7-10). Indication s: acute pain [facility] acetaminoph en-codeine (TYLENOL-CO DEINE #3) 300-30 mg tablet 02-07 00:00: 00 Yes 4647 2{tbl} Take 2 tablets by mouth every 6 (six) hours as needed for Pain (scale 4-6) or Pain (scale 7-10). Indication s: acute pain [facility] acetaminoph en-codeine (TYLENOL-CO DEINE #3) 300-30 mg tablet 02-07 00:00: 00 Yes 4647 2{tbl} Take 2 tablets by mouth every 6 (six) hours as needed for Pain (scale 4-6) or Pain (scale 7-10). Indication s: acute pain [facility] acetaminoph en-codeine (TYLENOL-CO DEINE #3) 300-30 mg tablet 02-07 00:00: 00 Yes 4647 2{tbl} Take 2 tablets by mouth every 6 (six) hours as needed for Pain (scale 4-6) or Pain (scale 7-10). Indication s: acute pain [facility] acetaminoph en-codeine (TYLENOL-CO DEINE #3) 300-30 mg tablet 02-07 00:00: 00 Yes 4647 2{tbl} Take 2 tablets by mouth every 6 (six) hours as needed for Pain (scale 4-6) or Pain (scale 7-10). Indication s: acute pain [facility] acetaminoph en-codeine (TYLENOL-CO DEINE #3) 300-30 mg tablet 02-07 00:00: 00 Yes 4647 2{tbl} Take 2 tablets by mouth every 6 (six) hours as needed for Pain (scale 4-6) or Pain (scale 7-10). Indication s: acute pain [facility] acetaminoph en-codeine (TYLENOL-CO DEINE #3) 300-30 mg tablet 02-07 00:00: 00 Yes 4647 2{tbl} Take 2 tablets by mouth every 6 (six) hours as needed for Pain (scale 4-6) or Pain (scale 7-10). Indication s: acute pain [facility] acetaminoph en-codeine (TYLENOL-CO DEINE #3) 300-30 mg tablet 02-07 00:00: 00 Yes 4647 2{tbl} Take 2 tablets by mouth every 6 (six) hours as needed for Pain (scale 4-6) or Pain (scale 7-10). Indication s: acute pain [facility] acetaminoph en-codeine (TYLENOL-CO DEINE #3) 300-30 mg tablet 02-07 00:00: 00 Yes 4647 2{tbl} Take 2 tablets by mouth every 6 (six) hours as needed for Pain (scale 4-6) or Pain (scale 7-10). Indication s: acute pain [facility] acetaminoph en-codeine (TYLENOL-CO DEINE #3) 300-30 mg tablet 02-07 00:00: 00 Yes 4647 2{tbl} Take 2 tablets by mouth every 6 (six) hours as needed for Pain (scale 4-6) or Pain (scale 7-10). Indication s: acute pain [facility] acetaminoph en-codeine (TYLENOL-CO DEINE #3) 300-30 mg tablet 02-07 00:00: 00 Yes 4647 2{tbl} Take 2 tablets by mouth every 6 (six) hours as needed for Pain (scale 4-6) or Pain (scale 7-10). Indication s: acute pain [facility] acetaminoph en-codeine (TYLENOL-CO DEINE #3) 300-30 mg tablet 02-07 00:00: 00 Yes 4647 2{tbl} Take 2 tablets by mouth every 6 (six) hours as needed for Pain (scale 4-6) or Pain (scale 7-10). Indication s: acute pain [facility] acetaminoph en-codeine (TYLENOL-CO DEINE #3) 300-30 mg tablet 02-07 00:00: 00 Yes 4647 2{tbl} Take 2 tablets by mouth every 6 (six) hours as needed for Pain (scale 4-6) or Pain (scale 7-10). Indication s: acute pain [facility] acetaminoph en-codeine (TYLENOL-CO DEINE #3) 300-30 mg tablet 02-07 00:00: 00 Yes 4647 2{tbl} Take 2 tablets by mouth every 6 (six) hours as needed for Pain (scale 4-6) or Pain (scale 7-10). Indication s: acute pain [facility] acetaminoph en-codeine (TYLENOL-CO DEINE #3) 300-30 mg tablet 02-07 00:00: 00 Yes 4647 2{tbl} Take 2 tablets by mouth every 6 (six) hours as needed for Pain (scale 4-6) or Pain (scale 7-10). Indication s: acute pain [facility] acetaminoph en-codeine (TYLENOL-CO DEINE #3) 300-30 mg tablet 7- 00:00: 00 Yes 4647 2{tbl} Take 2 tablets by mouth every 6 (six) hours as needed for Pain (scale 4-6) or Pain (scale 7-10). Indication s: acute pain [facility] acetaminoph en-codeine (TYLENOL-CO DEINE #3) 300-30 mg tablet 02-07 00:00: 00 Yes 4647 2{tbl} Take 2 tablets by mouth every 6 (six) hours as needed for Pain (scale 4-6) or Pain (scale 7-10). Indication s: acute pain [facility] acetaminoph en-codeine (TYLENOL-CO DEINE #3) 300-30 mg tablet 02-07 00:00: 00 Yes 4647 2{tbl} Take 2 tablets by mouth every 6 (six) hours as needed for Pain (scale 4-6) or Pain (scale 7-10). Indication s: acute pain [facility] acetaminoph en-codeine (TYLENOL-CO DEINE #3) 300-30 mg tablet 02-07 00:00: 00 Yes [id number] 2{tbl} Take 2 tablets by mouth every 6 (six) hours as needed for Pain (scale 4-6) or Pain (scale 7-10). Indication s: acute pain [facility] acetaminoph en-codeine (TYLENOL-CO DEINE #3) 300-30 mg tablet 02-07 00:00: 00 Yes [id number] 2{tbl} Take 2 tablets by mouth every 6 (six) hours as needed for Pain (scale 4-6) or Pain (scale 7-10). Indication s: acute pain [facility] hydrOXYzine 25 mg tablet 12-27 00:00: 00 Yes 25mg Take 25 mg by mouth 2 (two) times daily as needed. [facility] hydrOXYzine 25 mg tablet 2021-0 6 00:00: 00 Yes 25mg Take 25 mg by mouth 2 (two) times daily as needed. [facility] hydrOXYzine 25 mg tablet 2021-0 12-27 00:00: 00 Yes 25mg Take 25 mg by mouth 2 (two) times daily as needed. [facility] hydrOXYzine 25 mg tablet 2021-0 12-27 00:00: 00 Yes 25mg Take 25 mg by mouth 2 (two) times daily as needed. [facility] hydrOXYzine 25 mg tablet 2021-0 12-27 00:00: 00 Yes 25mg Take 25 mg by mouth 2 (two) times daily as needed. [facility] hydrOXYzine 25 mg tablet 0 12-27 00:00: 00 Yes 25mg Take 25 mg by mouth 2 (two) times daily as needed. [facility] 0 12-27 00:00: 00 Yes 25mg Take 25 mg by mouth 2 (two) times daily as needed. [facility] 2021-0 12-27 00:00: 00 Yes 25mg Take 25 mg by mouth 2 (two) times daily as needed. [facility] mg tablet 0 12-27 00:00: 00 Yes 25mg Take 25 mg by mouth 2 (two) times daily as needed. [facility] hydrOXYzine 25 mg tablet 0 12-27 00:00: 00 Yes 25mg Take 25 mg by mouth 2 (two) times daily as needed. [facility] hydrOXYzine 25 mg tablet 2021-0 12-27 00:00: 00 Yes 25mg Take 25 mg by mouth 2 (two) times daily as needed. [facility] hydrOXYzine 25 mg tablet 2021-0 12-27 00:00: 00 Yes 25mg Take 25 mg by mouth 2 (two) times daily as needed. [facility] 2021-0 12-27 00:00: 00 Yes 25mg Take 25 mg by mouth 2 (two) times daily as needed. [facility] hydrOXYzine 25 mg tablet 2021-0 12-27 00:00: 00 Yes 25mg Take 25 mg by mouth 2 (two) times daily as needed. [facility] hydrOXYzine 25 mg tablet 2021-0 12-27 00:00: 00 Yes 25mg Take 25 mg by mouth 2 (two) times daily as needed. [facility] hydrOXYzine 25 mg tablet 2021-0 12-27 00:00: 00 Yes 25mg Take 25 mg by mouth 2 (two) times daily as needed. [facility] hydrOXYzine 25 mg tablet 0 12-27 00:00: 00 Yes 25mg Take 25 mg by mouth 2 (two) times daily as needed. [facility] hydrOXYzine 25 mg tablet 0 12-27 00:00: 00 Yes 25mg Take 25 mg by mouth 2 (two) times daily as needed. [facility] 0 12-27 00:00: 00 Yes 25mg Take 25 mg by mouth 2 (two) times daily as needed. [facility] mg tablet 0 12-27 00:00: 00 Yes 25mg Take 25 mg by mouth 2 (two) times daily as needed. [facility] mg tablet 0 12-27 00:00: 00 Yes 25mg Take 25 mg by mouth 2 (two) times daily as needed. [facility] hydrOXYzine 25 mg tablet 0 12-27 00:00: 00 Yes 25mg Take 25 mg by mouth 2 (two) times daily as needed. [facility] hydrOXYzine 25 mg tablet 2021-0 12-27 00:00: 00 Yes 25mg Take 25 mg by mouth 2 (two) times daily as needed. [facility] hydrOXYzine 25 mg tablet 2021-0 12-27 00:00: 00 Yes 25mg Take 25 mg by mouth 2 (two) times daily as needed. [facility] tablet 2021-0 12-27 00:00: 00 Yes 25mg Take 25 mg by mouth 2 (two) times daily as needed. [facility] hydrOXYzine 25 mg tablet 2021-0 12-27 00:00: 00 Yes 25mg Take 25 mg by mouth 2 (two) times daily as needed. [facility] hydrOXYzine 25 mg tablet 2021-0 12-27 00:00: 00 Yes 25mg Take 25 mg by mouth 2 (two) times daily as needed. [facility] hydrOXYzine 25 mg tablet 2021-0 12-27 00:00: 00 Yes 25mg Take 25 mg by mouth 2 (two) times daily as needed. [facility] hydrOXYzine 25 mg tablet 2021-0 12-27 00:00: 00 Yes 25mg Take 25 mg by mouth 2 (two) times daily as needed. [facility] hydrOXYzine 25 mg tablet 2021-0 12-27 00:00: 00 Yes 25mg Take 25 mg by mouth 2 (two) times daily as needed. [facility] tablet 2021-0 12-27 00:00: 00 Yes 25mg Take 25 mg by mouth 2 (two) times daily as needed. [facility] mg tablet 2021-0 12-27 00:00: 00 Yes 25mg Take 25 mg by mouth 2 (two) times daily as needed. [facility] hydr[facility] mg tablet 2021-0 12-27 00:00: 00 Yes 25mg Take 25 mg by mouth 2 (two) times daily as needed. [facility] hydrOXYzine 25 mg tablet 2021-0 12-27 00:00: 00 Yes 25mg Take 25 mg by mouth 2 (two) times daily as needed. [facility] hydrOXYzine 25 mg tablet 2021-0 12-27 00:00: 00 Yes 25mg Take 25 mg by mouth 2 (two) times daily as needed. [facility] hydrOXYzine 25 mg tablet 2021-0 12-27 00:00: 00 Yes 25mg Take 25 mg by mouth 2 (two) times daily as needed. [facility] mg tablet 2021-0 12-27 00:00: 00 Yes 25mg Take 25 mg by mouth 2 (two) times daily as needed. [facility] hydrOXYzine [facility] mg tablet 2021-0 12-27 00:00: 00 Yes 25mg Take 25 mg by mouth 2 (two) times daily as needed. [facility] hydrOXYzine 25 mg tablet 2021-0 12-27 00:00: 00 Yes 25mg Take 25 mg by mouth 2 (two) times daily as needed. [facility] hydrOXYzine 25 mg tablet 2021-0 12-27 00:00: 00 Yes 25mg Take 25 mg by mouth 2 (two) times daily as needed. [facility] mg tablet 2021-0 12-27 00:00: 00 Yes 25mg Take 25 mg by mouth 2 (two) times daily as needed. [facility]OX[facility] mg tablet 2021-0 12-27 00:00: 00 Yes 25mg Take 25 mg by mouth 2 (two) times daily as needed. [facility] hydrOXYzine 25 mg tablet 2021-0 12-27 00:00: 00 Yes 25mg Take 25 mg by mouth 2 (two) times daily as needed. [facility] hydrOXYzine 25 mg tablet 2021-0 12-27 00:00: 00 Yes 25mg Take 25 mg by mouth 2 (two) times daily as needed. [facility] hydrOXYzine 25 mg tablet 0 12-27 00:00: 00 Yes 25mg Take 25 mg by mouth 2 (two) times daily as needed. [facility] hydrOXYzine 25 mg tablet 0 12-27 00:00: 00 Yes 25mg Take 25 mg by mouth 2 (two) times daily as needed. [facility] hydrOXYzine 25 mg tablet 2021-0 12-27 00:00: 00 Yes 25mg Take 25 mg by mouth 2 (two) times daily as needed. [facility] mg tablet 2021-0 12-27 00:00: 00 Yes 25mg Take 25 mg by mouth 2 (two) times daily as needed. [facility] hydrOXYzine 25 mg tablet 2021-0 12-27 00:00: 00 Yes 25mg Take 25 mg by mouth 2 (two) times daily as needed. [facility] hydrOXYzine 25 mg tablet 2021-0 12-27 00:00: 00 Yes 25mg Take 25 mg by mouth 2 (two) times daily as needed. [facility] hydrOXYzine 25 mg tablet 2-0 12-27 00:00: 00 Yes 25mg Take 25 mg by mouth 2 (two) times daily as needed. [facility] mg tablet 2021-0 12-27 00:00: 00 Yes 25mg Take 25 mg by mouth 2 (two) times daily as needed. [facility] hydrOXYz[facility] mg tablet 2021-0 12-27 00:00: 00 Yes 25mg Take 25 mg by mouth 2 (two) times daily as needed. [facility] hydrOXYzine 25 mg tablet 2-0 12-27 00:00: 00 Yes 25mg Take 25 mg by mouth 2 (two) times daily as needed. [facility] hydrOXYzine 25 mg tablet 2021-0 12-27 00:00: 00 Yes 25mg Take 25 mg by mouth 2 (two) times daily as needed. [facility] hydrOXYzine 25 mg tablet 2021-0 12-27 00:00: 00 Yes 25mg Take 25 mg by mouth 2 (two) times daily as needed. [facility] hydrOXYzine 25 mg tablet 2021-0 12-27 00:00: 00 Yes 25mg Take 25 mg by mouth 2 (two) times daily as needed. [facility] hydrOXYzine 25 mg tablet 2021-0 12-27 00:00: 00 Yes 25mg Take 25 mg by mouth 2 (two) times daily as needed. [facility] hydrOXYzine 25 mg tablet 2021-0 12-27 00:00: 00 Yes 25mg Take 25 mg by mouth 2 (two) times daily as needed. [facility] hydrOXYzine 25 mg tablet 2-0 12-27 00:00: 00 Yes 25mg Take 25 mg by mouth 2 (two) times daily as needed. [facility] hydrOXYzine 25 mg tablet 2-0 12-27 00:00: 00 Yes 25mg Take 25 mg by mouth 2 (two) times daily as needed. [facility] hydrOXYzine 25 mg tablet 2-0 12-27 00:00: 00 Yes 25mg Take 25 mg by mouth 2 (two) times daily as needed. [facility] hydrOXYzine 25 mg tablet 2021-0 12-27 00:00: 00 Yes 25mg Take 25 mg by mouth 2 (two) times daily as needed. [facility] hydrOXYzine 25 mg tablet 2021-0 12-27 00:00: 00 Yes 25mg Take 25 mg by mouth 2 (two) times daily as needed. [facility] tablet 0 12-27 00:00: 00 Yes 25mg Take 25 mg by mouth 2 (two) times daily as needed. [facility] hydrOXYzine 25 mg tablet 2021-0 12-27 00:00: 00 Yes 25mg Take 25 mg by mouth 2 (two) times daily as needed. [facility] hydrOXYzine 25 mg tablet 0 12-27 00:00: 00 Yes 25mg Take 25 mg by mouth 2 (two) times daily as needed. [facility] hydrOXYzine 25 mg tablet 0 12-27 00:00: 00 Yes 25mg Take 25 mg by mouth 2 (two) times daily as needed. [facility] hydrOXYzine 25 mg tablet 0 12-27 00:00: 00 Yes 25mg Take 25 mg by mouth 2 (two) times daily as needed. [facility] hydrOXYzine 25 mg tablet 0 12-27 00:00: 00 Yes 25mg Take 25 mg by mouth 2 (two) times daily as needed. [facility] hydrOXYzine 25 mg tablet 2021-0 12-27 00:00: 00 Yes 25mg Take 25 mg by mouth 2 (two) times daily as needed. [facility] hydrOXYzine 25 mg tablet 2021-0 12-27 00:00: 00 Yes 25mg Take 25 mg by mouth 2 (two) times daily as needed. [facility] hydrOXYzine 25 mg tablet 2021-0 12-27 00:00: 00 Yes 25mg Take 25 mg by mouth 2 (two) times daily as needed. [facility] hydrOXYzine 25 mg tablet 2021-0 12-27 00:00: 00 Yes 25mg Take 25 mg by mouth 2 (two) times daily as needed. [facility] hydrOXYzine 25 mg tablet 2021-0 12-27 00:00: 00 Yes 25mg Take 25 mg by mouth 2 (two) times daily as needed. [facility] hydrOXYzine 25 mg tablet 2021-0 12-27 00:00: 00 Yes 25mg Take 25 mg by mouth 2 (two) times daily as needed. [facility] mg [facility] 2021-0 12-27 00:00: 00 Yes 25mg Take 25 mg by mouth 2 (two) times daily as needed. [facility] hydrOXYzine [facility] mg tablet 2021-0 12-27 00:00: 00 Yes 25mg Take 25 mg by mouth 2 (two) times daily as needed. [facility] hydrOXYzine 25 mg tablet 2021-0 12-27 00:00: 00 Yes 25mg Take 25 mg by mouth 2 (two) times daily as needed. [facility] hydrOXYzine 25 mg tablet 2021-0 12-27 00:00: 00 Yes 25mg Take 25 mg by mouth 2 (two) times daily as needed. [facility] hydrOXYzine 25 mg tablet 2021-0 12-27 00:00: 00 Yes 25mg Take 25 mg by mouth 2 (two) times daily as needed. [facility] hydrOXYzine 25 mg tablet 2021-0 12-27 00:00: 00 Yes 25mg Take 25 mg by mouth 2 (two) times daily as needed. [facility] hydrOXYzine 25 mg tablet 2021-0 12-27 00:00: 00 Yes 25mg Take 25 mg by mouth 2 (two) times daily as needed. [facility] tablet 2021-0 12-27 00:00: 00 Yes 25mg Take 25 mg by mouth 2 (two) times daily as needed. [facility] hydrOXYzine 25 mg tablet 2021-0 12-27 00:00: 00 Yes 25mg Take 25 mg by mouth 2 (two) times daily as needed. [facility] hydrOXYzine 25 mg tablet 2021-0 12-27 00:00: 00 Yes 25mg Take 25 mg by mouth 2 (two) times daily as needed. [facility] hydrOXYzine 25 mg tablet 2021-0 12-27 00:00: 00 Yes 25mg Take 25 mg by mouth 2 (two) times daily as needed. [facility] hydrOXYzine 25 mg tablet 2021-0 12-27 00:00: 00 Yes 25mg Take 25 mg by mouth 2 (two) times daily as needed. [facility] hydrOXYzine 25 mg tablet 2021-0 12-27 00:00: 00 Yes 25mg Take 25 mg by mouth 2 (two) times daily as needed. [facility] 2021-0 12-27 00:00: 00 Yes 25mg Take 25 mg by mouth 2 (two) times daily as needed. [facility] hydrOX[facility]zine [facility] mg tablet 2021-0 12-27 00:00: 00 Yes 25mg Take 25 mg by mouth 2 (two) times daily as needed. [facility] hydrOXYzine 25 mg tablet 2021-0 12-27 00:00: 00 Yes 25mg Take 25 mg by mouth 2 (two) times daily as needed. [facility] hydrOXYzine 25 mg tablet 0 12-27 00:00: 00 Yes 25mg Take 25 mg by mouth 2 (two) times daily as needed. [facility] hydrOXYzine 25 mg tablet 2021-0 12-27 00:00: 00 Yes 25mg Take 25 mg by mouth 2 (two) times daily as needed. [facility] mg tablet 2021-0 12-27 00:00: 00 Yes 25mg Take 25 mg by mouth 2 (two) times daily as needed. [facility] hydrOXYzine [facility] mg tablet 2021-0 12-27 00:00: 00 Yes 25mg Take 25 mg by mouth 2 (two) times daily as needed. [facility] hydrOXYzine [facility] mg tablet 2021-0 12-27 00:00: 00 Yes 25mg Take 25 mg by mouth 2 (two) times daily as needed. [facility]OXYz[facility] mg tablet 2021-0 12-27 00:00: 00 Yes 25mg Take 25 mg by mouth 2 (two) times daily as needed. [facility] hydrOXYzine 25 mg tablet 2021-0 12-27 00:00: 00 Yes 25mg Take 25 mg by mouth 2 (two) times daily as needed. [facility] hydrOXYzine 25 mg tablet 2021-0 11-22 13:28: 35 11-22 00:00 :00 No 25mg Take 25 mg by mouth every 8 (eight) hours as needed for Anxiety. [facility] hydrOXYzine 25 mg tablet 2021-0 11-22 13:28: 35 11-22 00:00 :00 No 25mg Take 25 mg by mouth every 8 (eight) hours as needed for Anxiety. [facility] hydrOXYzine 25 mg tablet 2021-0 11-22 13:28: 35 11-22 00:00 :00 No 25mg Take 25 mg by mouth every 8 (eight) hours as needed for Anxiety. [facility] hydrOXYzine 25 mg tablet 2021-0 11-22 13:28: 35 11-22 00:00 :00 No 25mg Take 25 mg by mouth every 8 (eight) hours as needed for Anxiety. [facility] hydrOXYzine 25 mg tablet 0 11-22 13:28: 35 11-22 00:00 :00 No 25mg Take 25 mg by mouth every 8 (eight) hours as needed for Anxiety. [facility] hydrOXYzine 25 mg tablet 2021-0 11-22 13:28: 35 11-22 00:00 :00 No 25mg Take 25 mg by mouth every 8 (eight) hours as needed for Anxiety. [facility] gabapentin 300 mg capsule 2021-0 - 00:00: 00 Yes [id number] 300mg Take 1 capsule by mouth 3 (three) times daily. [facility] gabapentin 300 mg capsule 2-0 - 00:00: 00 Yes [id number] 300mg Take 1 capsule by mouth 3 (three) times daily. [facility] gabapentin 300 mg capsule 2-0 4-21 00:00: 00 Yes [id number] 300mg Take 1 capsule by mouth 3 (three) times daily. [facility] gabapentin 300 mg capsule 2-0 4-21 00:00: 00 Yes [id number] 300mg Take 1 capsule by mouth 3 (three) times daily. [facility] gabapentin 300 mg capsule 2022-0 4-21 00:00: 00 Yes [id number] 300mg Take 1 capsule by mouth 3 (three) times daily. [facility] gabapentin 300 mg capsule 2022-0 4-21 00:00: 00 Yes [id number] 300mg Take 1 capsule by mouth 3 (three) times daily. [facility] gabapentin 300 mg capsule 2-0 4-21 00:00: 00 Yes [id number] 300mg Take 1 capsule by mouth 3 (three) times daily. [facility] gabapentin 300 mg capsule 2-0 4-21 00:00: 00 Yes [id number] 300mg Take 1 capsule by mouth 3 (three) times daily. [facility] gabapentin 300 mg capsule 2-0 4-21 00:00: 00 Yes [id number] 300mg Take 1 capsule by mouth 3 (three) times daily. [facility] gabapentin 300 mg capsule 2-0 4-21 00:00: 00 Yes [id number] 300mg Take 1 capsule by mouth 3 (three) times daily. [facility] gabapentin 300 mg capsule 2-0 4-21 00:00: 00 Yes [id number] 300mg Take 1 capsule by mouth 3 (three) times daily. [facility] gabapentin 300 mg capsule 2-0 4-21 00:00: 00 Yes [id number] 300mg Take 1 capsule by mouth 3 (three) times daily. [facility] gabapentin 300 mg capsule 2022-0 4-21 00:00: 00 Yes [id number] 300mg Take 1 capsule by mouth 3 (three) times daily. [facility] gabapentin 300 mg capsule 2022-0 4-21 00:00: 00 Yes [id number] 300mg Take 1 capsule by mouth 3 (three) times daily. [facility] gabapentin 300 mg capsule 2022-0 4-21 00:00: 00 Yes [id number] 300mg Take 1 capsule by mouth 3 (three) times daily. [facility] gabapentin 300 mg capsule 2022-0 4-21 00:00: 00 Yes [id number] 300mg Take 1 capsule by mouth 3 (three) times daily. [facility] gabapentin 300 mg capsule 2022-0 4-21 00:00: 00 Yes [id number] 300mg Take 1 capsule by mouth 3 (three) times daily. [facility] gabapentin 300 mg capsule 2022-0 4-21 00:00: 00 Yes [id number] 300mg Take 1 capsule by mouth 3 (three) times daily. [facility] gabapentin 300 mg capsule 2022-0 4-21 00:00: 00 Yes [id number] 300mg Take 1 capsule by mouth 3 (three) times daily. [facility] gabapentin 300 mg capsule 2022-0 4-21 00:00: 00 Yes [id number] 300mg Take 1 capsule by mouth 3 (three) times daily. [facility] gabapentin 300 mg capsule 2022-0 4-21 00:00: 00 Yes [id number] 300mg Take 1 capsule by mouth 3 (three) times daily. [facility] gabapentin 300 mg capsule 2022-0 4-21 00:00: 00 Yes [id number] 300mg Take 1 capsule by mouth 3 (three) times daily. [facility] gabapentin 300 mg capsule 2022-0 4-21 00:00: 00 Yes [id number] 300mg Take 1 capsule by mouth 3 (three) times daily. [facility] gabapentin 300 mg capsule 2022-0 4-21 00:00: 00 Yes [id number] 300mg Take 1 capsule by mouth 3 (three) times daily. [facility] gabapentin 300 mg capsule 2022-0 4-21 00:00: 00 Yes [id number] 300mg Take 1 capsule by mouth 3 (three) times daily. [facility] gabapentin 300 mg capsule 2022-0 4-21 00:00: 00 Yes [id number] 300mg Take 1 capsule by mouth 3 (three) times daily. [facility] gabapentin 300 mg capsule 2022-0 4-21 00:00: 00 Yes [id number] 300mg Take 1 capsule by mouth 3 (three) times daily. [facility] gabapentin 300 mg capsule 2022-0 4-21 00:00: 00 Yes [id number] 300mg Take 1 capsule by mouth 3 (three) times daily. [facility] gabapentin 300 mg capsule 2022-0 4-21 00:00: 00 Yes [id number] 300mg Take 1 capsule by mouth 3 (three) times daily. [facility] gabapentin 300 mg capsule 2022-0 4-21 00:00: 00 Yes [id number] 300mg Take 1 capsule by mouth 3 (three) times daily. [facility] gabapentin 300 mg capsule 2022-0 4-21 00:00: 00 Yes [id number] 300mg Take 1 capsule by mouth 3 (three) times daily. [facility] gabapentin 300 mg capsule 2-0 4-21 00:00: 00 Yes [id number] 300mg Take 1 capsule by mouth 3 (three) times daily. [facility] gabapentin 300 mg capsule 2022-0 4-21 00:00: 00 Yes [id number] 300mg Take 1 capsule by mouth 3 (three) times daily. [facility] gabapentin 300 mg capsule 2-0 4-21 00:00: 00 Yes [id number] 300mg Take 1 capsule by mouth 3 (three) times daily. [facility] gabapentin 300 mg capsule 2-0 4-21 00:00: 00 Yes [id number] 300mg Take 1 capsule by mouth 3 (three) times daily. [facility] gabapentin 300 mg capsule 2022-0 4-21 00:00: 00 Yes [id number] 300mg Take 1 capsule by mouth 3 (three) times daily. [facility] gabapentin 300 mg capsule 2022-0 4-21 00:00: 00 Yes [id number] 300mg Take 1 capsule by mouth 3 (three) times daily. [facility] gabapentin 300 mg capsule 2022-0 4-21 00:00: 00 Yes [id number] 300mg Take 1 capsule by mouth 3 (three) times daily. [facility] gabapentin 300 mg capsule 2022-0 4-21 00:00: 00 Yes [id number] 300mg Take 1 capsule by mouth 3 (three) times daily. [facility] gabapentin 300 mg capsule 2-0 4-21 00:00: 00 Yes [id number] 300mg Take 1 capsule by mouth 3 (three) times daily. [facility] gabapentin 300 mg capsule 2-0 4-21 00:00: 00 10-11 00:00 :00 No [id number] 300mg Take 1 capsule by mouth 3 (three) times daily. [facility] gabapentin 300 mg capsule 2-0 4-21 00:00: 00 10-11 00:00 :00 No [id number] 300mg Take 1 capsule by mouth 3 (three) times daily. [facility] gabapentin 300 mg capsule 2-0 4-21 00:00: 00 10-11 00:00 :00 No [id number] 300mg Take 1 capsule by mouth 3 (three) times daily. [facility] gabapentin 300 mg capsule 2-0 4-21 00:00: 00 10-11 00:00 :00 No [id number] 300mg Take 1 capsule by mouth 3 (three) times daily. [facility] gabapentin 300 mg capsule 2-0 4-21 00:00: 00 10-11 00:00 :00 No [id number] 300mg Take 1 capsule by mouth 3 (three) times daily. [facility] gabapentin 300 mg capsule 2021-0 4-21 00:00: 00 10-11 00:00 :00 No [id number] 300mg Take 1 capsule by mouth 3 (three) times daily. [facility] gabapentin 300 mg capsule 2021-0 4-21 00:00: 00 10-11 00:00 :00 No [id number] 300mg Take 1 capsule by mouth 3 (three) times daily. [facility] adalimumab (HUMIRA,CF, PEN) 40 mg/0.4 mL injection 10-25 00:00: 00 03-07 00:00 :00 No [id number] 40mg inject 1 Pen under the skin every 14 (fourteen) days. [facility] adalimumab (HUMIRA,CF, PEN) 40 mg/0.4 mL injection 2022-0 4-11 00:00: 00 03-07 00:00 :00 No [id number] 40mg inject 1 Pen under the skin every 14 (fourteen) days. [facility] (HUMIRA,CF, PEN) 40 mg/0.4 mL injection 0 4-11 00:00: 00 03-07 00:00 :00 No [id number] 40mg inject 1 Pen under the skin every 14 (fourteen) days. [facility] (HUMIRA,CF, PEN) 40 mg/0.4 mL injection 0 4-11 00:00: 00 03-07 00:00 :00 No [id number] 40mg inject 1 Pen under the skin every 14 (fourteen) days. [facility] adalimumab (HUMIRA,CF, PEN) 40 mg/0.4 mL injection 4-11 00:00: 00 03-07 00:00 :00 No [id number] 40mg inject 1 Pen under the skin every 14 (fourteen) days. [facility] gabapentin 300 mg capsule 0 3-22 00:00: 00 11-04 00:00 :00 No [id number] 300mg Take 1 capsule by mouth 3 (three) times daily for 30 days. [facility] gabapentin 300 mg capsule 0 3-22 00:00: 00 11-04 00:00 :00 No [id number] 300mg Take 1 capsule by mouth 3 (three) times daily for 30 days. [facility] Lancets (ACCU-CHEK SOFTCLIX LANCETS) [facility] 0 2-15 00:00: 00 Yes [id number] Use as directed to check blood sugar once daily E11.9 [facility] Lancets (ACCU-CHEK SOFTCLIX LANCETS) [facility] 0 2-15 00:00: 00 Yes [id number] Use as directed to check blood sugar once daily E11.9 [facility] Lancets (ACCU-CHEK SOFTCLIX LANCETS) [facility] 2021-0 2-15 00:00: 00 Yes [id number] Use as directed to check blood sugar once daily E11.9 [facility] Lancets (ACCU-CHEK SOFTCLIX LANCETS) [facility] 0 2-15 00:00: 00 Yes [id number] Use as directed to check blood sugar once daily E11.9 [facility] Lancets (ACCU-CHEK SOFTCLIX LANCETS) [facility] 2021-0 2-15 00:00: 00 Yes [id number] Use as directed to check blood sugar once daily E11.9 [facility] Lancets (ACCU-CHEK SOFTCLIX LANCETS) [facility] 0 2-15 00:00: 00 Yes [id number] Use as directed to check blood sugar once daily E11.9 [facility] Lancets (ACCU-CHEK SOFTCLIX LANCETS) [facility] 0 2-15 00:00: 00 Yes [id number] Use as directed to check blood sugar once daily E11.9 [facility] Lancets (ACCU-CHEK SOFTCLIX LANCETS) [facility] 0 2-15 00:00: 00 Yes [id number] Use as directed to check blood sugar once daily E11.9 [facility] Lancets (ACCU-CHEK SOFTCLIX LANCETS) [facility] 0 2-15 00:00: 00 Yes [id number] Use as directed to check blood sugar once daily E11.9 [facility] Lancets (ACCU-CHEK SOFTCLIX LANCETS) [facility] 0 2-15 00:00: 00 Yes [id number] Use as directed to check blood sugar once daily E11.9 [facility] Lancets (ACCU-CHEK SOFTCLIX LANCETS) [facility] 0 2-15 00:00: 00 Yes [id number] Use as directed to check blood sugar once daily E11.9 [facility] Lancets (ACCU-CHEK SOFTCLIX LANCETS) [facility] 0 2-15 00:00: 00 Yes [id number] Use as directed to check blood sugar once daily E11.9 [facility] Lancets (ACCU-CHEK SOFTCLIX LANCETS) [facility] 0 2-15 00:00: 00 Yes [id number] Use as directed to check blood sugar once daily E11.9 [facility] Lancets (ACCU-CHEK SOFTCLIX LANCETS) [facility] 0 2-15 00:00: 00 Yes [id number] Use as directed to check blood sugar once daily E11.9 [facility] Lancets (ACCU-CHEK SOFTCLIX LANCETS) [facility] 0 2-15 00:00: 00 Yes [id number] Use as directed to check blood sugar once daily E11.9 [facility] Lancets (ACCU-CHEK SOFTCLIX LANCETS) [facility] 0 2-15 00:00: 00 Yes [id number] Use as directed to check blood sugar once daily E11.9 [facility] Lancets (ACCU-CHEK SOFTCLIX LANCETS) [facility] 0 2-15 00:00: 00 Yes [id number] Use as directed to check blood sugar once daily E11.9 [facility] Lancets (ACCU-CHEK SOFTCLIX LANCETS) [facility] 0 2-15 00:00: 00 Yes [id number] Use as directed to check blood sugar once daily E11.9 [facility] Lancets (ACCU-CHEK SOFTCLIX LANCETS) [facility] 0 2-15 00:00: 00 Yes [id number] Use as directed to check blood sugar once daily E11.9 [facility] Lancets (ACCU-CHEK SOFTCLIX LANCETS) [facility] 0 2-15 00:00: 00 Yes [id number] Use as directed to check blood sugar once daily E11.9 [facility] Lancets (ACCU-CHEK SOFTCLIX LANCETS) [facility] 0 2-15 00:00: 00 Yes [id number] Use as directed to check blood sugar once daily E11.9 [facility] Lancets (ACCU-CHEK SOFTCLIX LANCETS) [facility] 0 2-15 00:00: 00 Yes [id number] Use as directed to check blood sugar once daily E11.9 [facility] Lancets (ACCU-CHEK SOFTCLIX LANCETS) [facility] 0 2-15 00:00: 00 Yes [id number] Use as directed to check blood sugar once daily E11.9 [facility] Lancets (ACCU-CHEK SOFTCLIX LANCETS) [facility] 0 2-15 00:00: 00 Yes [id number] Use as directed to check blood sugar once daily E11.9 [facility] Lancets (ACCU-CHEK SOFTCLIX LANCETS) [facility] 0 2-15 00:00: 00 Yes [id number] Use as directed to check blood sugar once daily E11.9 [facility] Lancets (ACCU-CHEK SOFTCLIX LANCETS) [facility] 0 2-15 00:00: 00 Yes [id number] Use as directed to check blood sugar once daily E11.9 [facility] Lancets (ACCU-CHEK SOFTCLIX LANCETS) [facility] 0 2-15 00:00: 00 Yes [id number] Use as directed to check blood sugar once daily E11.9 [facility] Lancets (ACCU-CHEK SOFTCLIX LANCETS) [facility] 0 2-15 00:00: 00 Yes [id number] Use as directed to check blood sugar once daily E11.9 [facility] Lancets (ACCU-CHEK SOFTCLIX LANCETS) [facility] 0 2-15 00:00: 00 Yes [id number] Use as directed to check blood sugar once daily E11.9 [facility] Lancets (ACCU-CHEK SOFTCLIX LANCETS) [facility] 0 2-15 00:00: 00 Yes [id number] Use as directed to check blood sugar once daily E11.9 [facility] Lancets (ACCU-CHEK SOFTCLIX LANCETS) [facility] 0 2-15 00:00: 00 Yes [id number] Use as directed to check blood sugar once daily E11.9 [facility] Lancets (ACCU-CHEK SOFTCLIX LANCETS) [facility] 0 2-15 00:00: 00 Yes [id number] Use as directed to check blood sugar once daily E11.9 [facility] Lancets (ACCU-CHEK SOFTCLIX LANCETS) [facility] 0 2-15 00:00: 00 Yes [id number] Use as directed to check blood sugar once daily E11.9 [facility] Lancets (ACCU-CHEK SOFTCLIX LANCETS) [facility] 0 2-15 00:00: 00 Yes [id number] Use as directed to check blood sugar once daily E11.9 [facility] Lancets (ACCU-CHEK SOFTCLIX LANCETS) [facility] 0 2-15 00:00: 00 Yes [id number] Use as directed to check blood sugar once daily E11.9 [facility] Lancets (ACCU-CHEK SOFTCLIX LANCETS) [facility] 0 2-15 00:00: 00 Yes [id number] Use as directed to check blood sugar once daily E11.9 [facility] Lancets (ACCU-CHEK SOFTCLIX LANCETS) [facility] 0 2-15 00:00: 00 Yes [id number] Use as directed to check blood sugar once daily E11.9 [facility] Lancets (ACCU-CHEK SOFTCLIX LANCETS) [facility] 0 2-15 00:00: 00 Yes [id number] Use as directed to check blood sugar once daily E11.9 [facility] Lancets (ACCU-CHEK SOFTCLIX LANCETS) [facility] 0 2-15 00:00: 00 Yes [id number] Use as directed to check blood sugar once daily E11.9 [facility] Lancets (ACCU-CHEK SOFTCLIX LANCETS) [facility] 0 2-15 00:00: 00 Yes [id number] Use as directed to check blood sugar once daily E11.9 [facility] Lancets (ACCU-CHEK SOFTCLIX LANCETS) [facility] 0 2-15 00:00: 00 Yes [id number] Use as directed to check blood sugar once daily E11.9 [facility] Lancets (ACCU-CHEK SOFTCLIX LANCETS) [facility] 0 2-15 00:00: 00 Yes [id number] Use as directed to check blood sugar once daily E11.9 [facility] Lancets (ACCU-CHEK SOFTCLIX LANCETS) [facility] 0 2-15 00:00: 00 Yes [id number] Use as directed to check blood sugar once daily E11.9 [facility] Lancets (ACCU-CHEK SOFTCLIX LANCETS) [facility] 0 2-15 00:00: 00 Yes [id number] Use as directed to check blood sugar once daily E11.9 [facility] Lancets (ACCU-CHEK SOFTCLIX LANCETS) [facility] 0 2-15 00:00: 00 Yes [id number] Use as directed to check blood sugar once daily E11.9 [facility] Lancets (ACCU-CHEK SOFTCLIX LANCETS) [facility] 0 2-15 00:00: 00 Yes [id number] Use as directed to check blood sugar once daily E11.9 [facility] Lancets (ACCU-CHEK SOFTCLIX LANCETS) [facility] 0 2-15 00:00: 00 Yes [id number] Use as directed to check blood sugar once daily E11.9 [facility] Lancets (ACCU-CHEK SOFTCLIX LANCETS) [facility] 0 2-15 00:00: 00 Yes [id number] Use as directed to check blood sugar once daily E11.9 [facility] Lancets (ACCU-CHEK SOFTCLIX LANCETS) [facility] 0 2-15 00:00: 00 Yes [id number] Use as directed to check blood sugar once daily E11.9 [facility] Lancets (ACCU-CHEK SOFTCLIX LANCETS) [facility] 0 2-15 00:00: 00 Yes [id number] Use as directed to check blood sugar once daily E11.9 [facility] Lancets (ACCU-CHEK SOFTCLIX LANCETS) [facility] 2021-0 2-15 00:00: 00 Yes [id number] Use as directed to check blood sugar once daily E11.9 [facility] Lancets (ACCU-CHEK SOFTCLIX LANCETS) [facility] 2021-0 2-15 00:00: 00 Yes [id number] Use as directed to check blood sugar once daily E11.9 [facility] Lancets (ACCU-CHEK SOFTCLIX LANCETS) [facility] 2021-0 2-15 00:00: 00 Yes [id number] Use as directed to check blood sugar once daily E11.9 [facility] Lancets (ACCU-CHEK SOFTCLIX LANCETS) [facility] 0 2-15 00:00: 00 Yes [id number] Use as directed to check blood sugar once daily E11.9 [facility] Lancets (ACCU-CHEK SOFTCLIX LANCETS) [facility] 0 2-15 00:00: 00 Yes [id number] Use as directed to check blood sugar once daily E11.9 [facility] Lancets (ACCU-CHEK SOFTCLIX LANCETS) [facility] 0 2-15 00:00: 00 Yes [id number] Use as directed to check blood sugar once daily E11.9 [facility] Lancets (ACCU-CHEK SOFTCLIX LANCETS) [facility] 0 2-15 00:00: 00 Yes [id number] Use as directed to check blood sugar once daily E11.9 [facility] Lancets (ACCU-CHEK SOFTCLIX LANCETS) [facility] 0 2-15 00:00: 00 Yes [id number] Use as directed to check blood sugar once daily E11.9 [facility] Lancets (ACCU-CHEK SOFTCLIX LANCETS) [facility] 0 2-15 00:00: 00 Yes [id number] Use as directed to check blood sugar once daily E11.9 [facility] Lancets (ACCU-CHEK SOFTCLIX LANCETS) [facility] 0 2-15 00:00: 00 Yes [id number] Use as directed to check blood sugar once daily E11.9 [facility] Lancets (ACCU-CHEK SOFTCLIX LANCETS) [facility] 0 2-15 00:00: 00 Yes [id number] Use as directed to check blood sugar once daily E11.9 [facility] Lancets (ACCU-CHEK SOFTCLIX LANCETS) [facility] 0 2-15 00:00: 00 Yes [id number] Use as directed to check blood sugar once daily E11.9 [facility] Lancets (ACCU-CHEK SOFTCLIX LANCETS) [facility] 2-15 00:00: 00 Yes [id number] Use as directed to check blood sugar once daily E11.9 [facility] Lancets (ACCU-CHEK SOFTCLIX LANCETS) [facility] 0 2-15 00:00: 00 Yes [id number] Use as directed to check blood sugar once daily E11.9 [facility] Lancets (ACCU-CHEK SOFTCLIX LANCETS) [facility] 0 2-15 00:00: 00 Yes [id number] Use as directed to check blood sugar once daily E11.9 [facility] Lancets (ACCU-CHEK SOFTCLIX LANCETS) [facility] 0 2-15 00:00: 00 Yes [id number] Use as directed to check blood sugar once daily E11.9 [facility] Lancets (ACCU-CHEK SOFTCLIX LANCETS) [facility] 0 2-15 00:00: 00 Yes [id number] Use as directed to check blood sugar once daily E11.9 [facility] Lancets (ACCU-CHEK SOFTCLIX LANCETS) [facility] 0 2-15 00:00: 00 Yes [id number] Use as directed to check blood sugar once daily E11.9 [facility] Lancets (ACCU-CHEK SOFTCLIX LANCETS) [facility] 0 2-15 00:00: 00 Yes [id number] Use as directed to check blood sugar once daily E11.9 [facility] Lancets (ACCU-CHEK SOFTCLIX LANCETS) [facility] 0 2-15 00:00: 00 Yes [id number] Use as directed to check blood sugar once daily E11.9 [facility] Lancets (ACCU-CHEK SOFTCLIX LANCETS) [facility] 2021-0 2-15 00:00: 00 Yes [id number] Use as directed to check blood sugar once daily E11.9 [facility] Lancets (ACCU-CHEK SOFTCLIX LANCETS) [facility] 0 2-15 00:00: 00 Yes [id number] Use as directed to check blood sugar once daily E11.9 [facility] Lancets (ACCU-CHEK SOFTCLIX LANCETS) [facility] 0 2-15 00:00: 00 Yes [id number] Use as directed to check blood sugar once daily E11.9 [facility] Lancets (ACCU-CHEK SOFTCLIX LANCETS) [facility] 0 2-15 00:00: 00 Yes [id number] Use as directed to check blood sugar once daily E11.9 [facility] Lancets (ACCU-CHEK SOFTCLIX LANCETS) [facility] 0 2-15 00:00: 00 Yes [id number] Use as directed to check blood sugar once daily E11.9 [facility] Lancets (ACCU-CHEK SOFTCLIX LANCETS) [facility] 0 2-15 00:00: 00 Yes [id number] Use as directed to check blood sugar once daily E11.9 [facility] Lancets (ACCU-CHEK SOFTCLIX LANCETS) [facility] 0 2-15 00:00: 00 Yes [id number] Use as directed to check blood sugar once daily E11.9 [facility] Lancets (ACCU-CHEK SOFTCLIX LANCETS) [facility] 0 2-15 00:00: 00 Yes [id number] Use as directed to check blood sugar once daily E11.9 [facility] Lancets (ACCU-CHEK SOFTCLIX LANCETS) [facility] 0 2-15 00:00: 00 Yes [id number] Use as directed to check blood sugar once daily E11.9 [facility] Lancets (ACCU-CHEK SOFTCLIX LANCETS) [facility] 2021-0 2-15 00:00: 00 Yes [id number] Use as directed to check blood sugar once daily E11.9 [facility] Lancets (ACCU-CHEK SOFTCLIX LANCETS) [facility] 0 2-15 00:00: 00 Yes [id number] Use as directed to check blood sugar once daily E11.9 [facility] Lancets (ACCU-CHEK SOFTCLIX LANCETS) [facility] 2021-0 2-15 00:00: 00 Yes [id number] Use as directed to check blood sugar once daily E11.9 [facility] Lancets (ACCU-CHEK SOFTCLIX LANCETS) [facility] 0 2-15 00:00: 00 Yes [id number] Use as directed to check blood sugar once daily E11.9 [facility] Lancets (ACCU-CHEK SOFTCLIX LANCETS) [facility] 0 2-15 00:00: 00 Yes [id number] Use as directed to check blood sugar once daily E11.9 [facility] Lancets (ACCU-CHEK SOFTCLIX LANCETS) [facility] 0 2-15 00:00: 00 Yes [id number] Use as directed to check blood sugar once daily E11.9 [facility] Lancets (ACCU-CHEK SOFTCLIX LANCETS) [facility] 0 2-15 00:00: 00 Yes [id number] Use as directed to check blood sugar once daily E11.9 [facility] Lancets (ACCU-CHEK SOFTCLIX LANCETS) [facility] 0 2-15 00:00: 00 Yes [id number] Use as directed to check blood sugar once daily E11.9 [facility] Lancets (ACCU-CHEK SOFTCLIX LANCETS) [facility] 0 2-15 00:00: 00 Yes [id number] Use as directed to check blood sugar once daily E11.9 [facility] Lancets (ACCU-CHEK SOFTCLIX LANCETS) [facility] 0 2-15 00:00: 00 Yes [id number] Use as directed to check blood sugar once daily E11.9 [facility] Lancets (ACCU-CHEK SOFTCLIX LANCETS) [facility] 0 2-15 00:00: 00 Yes [id number] Use as directed to check blood sugar once daily E11.9 [facility] Lancets (ACCU-CHEK SOFTCLIX LANCETS) [facility] 0 2-15 00:00: 00 Yes [id number] Use as directed to check blood sugar once daily E11.9 [facility] Lancets (ACCU-CHEK SOFTCLIX LANCETS) [facility] 0 2-15 00:00: 00 Yes [id number] Use as directed to check blood sugar once daily E11.9 [facility] Lancets (ACCU-CHEK SOFTCLIX LANCETS) [facility] 0 2-15 00:00: 00 Yes [id number] Use as directed to check blood sugar once daily E11.9 [facility] Lancets (ACCU-CHEK SOFTCLIX LANCETS) [facility] 0 2-15 00:00: 00 Yes [id number] Use as directed to check blood sugar once daily E11.9 [facility] Lancets (ACCU-CHEK SOFTCLIX LANCETS) [facility] 0 2-15 00:00: 00 Yes [id number] Use as directed to check blood sugar once daily E11.9 [facility] Lancets (ACCU-CHEK SOFTCLIX LANCETS) [facility] 0 2-15 00:00: 00 Yes [id number] Use as directed to check blood sugar once daily E11.9 [facility] Lancets (ACCU-CHEK SOFTCLIX LANCETS) [facility] 0 2-15 00:00: 00 Yes [id number] Use as directed to check blood sugar once daily E11.9 [facility] Lancets (ACCU-CHEK SOFTCLIX LANCETS) [facility] 0 2-15 00:00: 00 Yes [id number] Use as directed to check blood sugar once daily E11.9 [facility] Lancets (ACCU-CHEK SOFTCLIX LANCETS) [facility] 2021-0 2-15 00:00: 00 Yes [id number] Use as directed to check blood sugar once daily E11.9 [facility] Lancets (ACCU-CHEK SOFTCLIX LANCETS) [facility] 0 2-15 00:00: 00 Yes [id number] Use as directed to check blood sugar once daily E11.9 [facility] Lancets (ACCU-CHEK SOFTCLIX LANCETS) Misc 0 2-15 00:00: 00 Yes [id number] Use as directed to check blood sugar once daily E11.9 [facility] Lancets (ACCU-CHEK SOFTCLIX LANCETS) [facility] 2-15 00:00: 00 Yes [id number] Use as directed to check blood sugar once daily E11.9 [facility] Lancets (ACCU-CHEK SOFTCLIX LANCETS) [facility] 2-15 00:00: 00 Yes [id number] Use as directed to check blood sugar once daily E11.9 [facility] Lancets (ACCU-CHEK SOFTCLIX LANCETS) [facility] 2-15 00:00: 00 Yes [id number] Use as directed to check blood sugar once daily E11.9 [facility] Lancets (ACCU-CHEK SOFTCLIX LANCETS) [facility] 2-15 00:00: 00 Yes [id number] Use as directed to check blood sugar once daily E11.9 [facility] Lancets (ACCU-CHEK SOFTCLIX LANCETS) [facility] 0 2-15 00:00: 00 Yes [id number] Use as directed to check blood sugar once daily E11.9 [facility] Lancets (ACCU-CHEK SOFTCLIX LANCETS) [facility] 0 2-15 00:00: 00 Yes [id number] Use as directed to check blood sugar once daily E11.9 [facility] Lancets (ACCU-CHEK SOFTCLIX LANCETS) [facility] 2-15 00:00: 00 Yes [id number] Use as directed to check blood sugar once daily E11.9 [facility] blood sugar diagnostic (ACCU-CHEK GUIDE TEST STRIPS) strip 2022-0 2-15 00:00: 00 02-27 00:00 :00 No [id number] Use as directed to check blood sugar once daily E11.9 [facility] blood sugar diagnostic (ACCU-CHEK GUIDE TEST STRIPS) strip 0 2-15 00:00: 00 02-27 00:00 :00 No [id number] Use as directed to check blood sugar once daily E11.9 [facility] blood sugar diagnostic (ACCU-CHEK GUIDE TEST STRIPS) strip 2-15 00:00: 00 02-27 00:00 :00 No [id number] Use as directed to check blood sugar once daily E11.9 [facility] blood sugar diagnostic (ACCU-CHEK GUIDE TEST STRIPS) strip 2-15 00:00: 00 02-27 00:00 :00 No [id number] Use as directed to check blood sugar once daily E11.9 [facility] blood sugar diagnostic (ACCU-CHEK GUIDE TEST STRIPS) strip 2-15 00:00: 00 02-27 00:00 :00 No [id number] Use as directed to check blood sugar once daily E11.9 [facility] blood sugar diagnostic (ACCU-CHEK GUIDE TEST STRIPS) strip 2-15 00:00: 00 02-27 00:00 :00 No [id number] Use as directed to check blood sugar once daily E11.9 [facility] blood sugar diagnostic (ACCU-CHEK GUIDE TEST STRIPS) strip 2-15 00:00: 00 02-27 00:00 :00 No [id number] Use as directed to check blood sugar once daily E11.9 [facility] metformin ER 500 mg 24 hr tablet 08-24 00:00: 00 Yes [id number] 1000mg Take 2 tablets by mouth daily with breakfast. [facility] metformin ER 500 mg 24 hr tablet 08-24 00:00: 00 Yes [id number] 1000mg Take 2 tablets by mouth daily with breakfast. [facility] metformin ER 500 mg 24 hr tablet 2022-0 2-08 00:00: 00 Yes [id number] 1000mg Take 2 tablets by mouth daily with breakfast. [facility] metformin ER 500 mg 24 hr tablet 2-0 2-08 00:00: 00 Yes [id number] 1000mg Take 2 tablets by mouth daily with breakfast. [facility] metformin ER 500 mg 24 hr tablet 2-0 2-08 00:00: 00 Yes [id number] 1000mg Take 2 tablets by mouth daily with breakfast. [facility] metformin ER 500 mg 24 hr tablet 2-0 2-08 00:00: 00 Yes [id number] 1000mg Take 2 tablets by mouth daily with breakfast. [facility] metformin ER 500 mg 24 hr tablet 2021-0 2-08 00:00: 00 Yes [id number] 1000mg Take 2 tablets by mouth daily with breakfast. [facility] metformin ER 500 mg 24 hr tablet 2-0 2-08 00:00: 00 Yes [id number] 1000mg Take 2 tablets by mouth daily with breakfast. [facility] metformin ER 500 mg 24 hr tablet 2021-0 2-08 00:00: 00 Yes [id number] 1000mg Take 2 tablets by mouth daily with breakfast. [facility] metformin ER 500 mg 24 hr tablet 2-0 2-08 00:00: 00 Yes [id number] 1000mg Take 2 tablets by mouth daily with breakfast. [facility] metformin ER 500 mg 24 hr tablet 2-0 2-08 00:00: 00 Yes [id number] 1000mg Take 2 tablets by mouth daily with breakfast. [facility] metformin ER 500 mg 24 hr tablet 2-0 2-08 00:00: 00 Yes [id number] 1000mg Take 2 tablets by mouth daily with breakfast. [facility] metformin ER 500 mg 24 hr tablet 2-0 2-08 00:00: 00 Yes [id number] 1000mg Take 2 tablets by mouth daily with breakfast. [facility] metformin ER 500 mg 24 hr tablet 2-0 2-08 00:00: 00 Yes [id number] 1000mg Take 2 tablets by mouth daily with breakfast. [facility] metformin ER 500 mg 24 hr tablet 2-0 2-08 00:00: 00 Yes [id number] 1000mg Take 2 tablets by mouth daily with breakfast. [facility] metformin ER 500 mg 24 hr tablet 2-0 2-08 00:00: 00 Yes [id number] 1000mg Take 2 tablets by mouth daily with breakfast. [facility] metformin ER 500 mg 24 hr tablet 2-0 2-08 00:00: 00 Yes [id number] 1000mg Take 2 tablets by mouth daily with breakfast. [facility] metformin ER 500 mg 24 hr tablet 2021-0 2-08 00:00: 00 Yes [id number] 1000mg Take 2 tablets by mouth daily with breakfast. [facility] metformin ER 500 mg 24 hr tablet 2021-0 2-08 00:00: 00 Yes [id number] 1000mg Take 2 tablets by mouth daily with breakfast. [facility] metformin ER 500 mg 24 hr tablet 2021-0 2-08 00:00: 00 Yes [id number] 1000mg Take 2 tablets by mouth daily with breakfast. [facility] metformin ER 500 mg 24 hr tablet 2021-0 2-08 00:00: 00 Yes [id number] 1000mg Take 2 tablets by mouth daily with breakfast. [facility] metformin ER 500 mg 24 hr tablet 2021-0 2-08 00:00: 00 Yes [id number] 1000mg Take 2 tablets by mouth daily with breakfast. [facility] metformin ER 500 mg 24 hr tablet 2021-0 2-08 00:00: 00 Yes [id number] 1000mg Take 2 tablets by mouth daily with breakfast. [facility] metformin ER 500 mg 24 hr tablet 2021-0 2-08 00:00: 00 07-20 00:00 :00 No [id number] 1000mg Take 2 tablets by mouth daily with breakfast. [facility] metformin ER 500 mg 24 hr tablet 2021-0 2-08 00:00: 00 07-20 00:00 :00 No [id number] 1000mg Take 2 tablets by mouth daily with breakfast. [facility] metformin ER 500 mg 24 hr tablet 2021-0 2-08 00:00: 00 07-20 00:00 :00 No [id number] 1000mg Take 2 tablets by mouth daily with breakfast. [facility] metformin ER 500 mg 24 hr tablet 2021-0 2-08 00:00: 00 07-20 00:00 :00 No [id number] 1000mg Take 2 tablets by mouth daily with breakfast. [facility] metformin ER 500 mg 24 hr tablet 2021-0 2-08 00:00: 00 07-20 00:00 :00 No [id number] 1000mg Take 2 tablets by mouth daily with breakfast. [facility] metformin ER 500 mg 24 hr tablet 0 2-08 00:00: 00 07-20 00:00 :00 No [id number] 1000mg Take 2 tablets by mouth daily with breakfast. [facility] metformin ER 500 mg 24 hr tablet 0 2-08 00:00: 00 07-20 00:00 :00 No [id number] 1000mg Take 2 tablets by mouth daily with breakfast. [facility] metformin ER 500 mg 24 hr tablet 0 2-08 00:00: 00 07-20 00:00 :00 No [id number] 1000mg Take 2 tablets by mouth daily with breakfast. [facility] metformin ER 500 mg 24 hr tablet 208 00:00: 00 07-20 00:00 :00 No [id number] 1000mg Take 2 tablets by mouth daily with breakfast. [facility] levothyroxi ne 50 mcg tablet - 00:00: 00 Yes 50ug Take 50 mcg by mouth. [facility] levothyroxi ne 50 mcg tablet 2 00:00: 00 Yes 50ug Take 50 mcg by mouth. [facility] levothyroxi ne 50 mcg tablet 2- 00:00: 00 Yes 50ug Take 50 mcg by mouth. [facility] levothyroxi ne 50 mcg tablet 0 2- 00:00: 00 Yes 50ug Take 50 mcg by mouth. [facility] levothyroxi ne 50 mcg tablet 08-18 00:00: 00 Yes 50ug Take 50 mcg by mouth. [facility] levothyroxi ne 50 mcg tablet 08-18 00:00: 00 Yes 50ug Take 50 mcg by mouth. [facility] levothyroxi ne 50 mcg tablet 08-18 00:00: 00 Yes 50ug Take 50 mcg by mouth. [facility] levothyroxi ne 50 mcg tablet 08-18 00:00: 00 Yes 50ug Take 50 mcg by mouth. [facility] levothyroxi ne 50 mcg tablet 08-18 00:00: 00 Yes 50ug Take 50 mcg by mouth. [facility] levothyroxi ne 50 mcg tablet 08-18 00:00: 00 Yes 50ug Take 50 mcg by mouth. [facility] levothyroxi ne 50 mcg tablet 08-18 00:00: 00 Yes 50ug Take 50 mcg by mouth. [facility] levothyroxi ne 50 mcg tablet 08-18 00:00: 00 Yes 50ug Take 50 mcg by mouth. [facility] levothyroxi ne 50 mcg tablet 08-18 00:00: 00 Yes 50ug Take 50 mcg by mouth. [facility] levothyroxi ne 50 mcg tablet 08-18 00:00: 00 Yes 50ug Take 50 mcg by mouth. [facility] levothyroxi ne 50 mcg tablet 08-18 00:00: 00 Yes 50ug Take 50 mcg by mouth. [facility] levothyroxi ne 50 mcg tablet 08-18 00:00: 00 Yes 50ug Take 50 mcg by mouth. [facility] levothyroxi ne 50 mcg tablet 08-18 00:00: 00 Yes 50ug Take 50 mcg by mouth. [facility] levothyroxi ne 50 mcg tablet 08-18 00:00: 00 Yes 50ug Take 50 mcg by mouth. [facility] levothyroxi ne 50 mcg tablet 08-18 00:00: 00 Yes 50ug Take 50 mcg by mouth. [facility] levothyroxi ne 50 mcg tablet 08-18 00:00: 00 Yes 50ug Take 50 mcg by mouth. [facility] levothyroxi ne 50 mcg tablet 08-18 00:00: 00 Yes 50ug Take 50 mcg by mouth. [facility] levothyroxi ne 50 mcg tablet 08-18 00:00: 00 Yes 50ug Take 50 mcg by mouth. [facility] levothyroxi ne 50 mcg tablet 08-18 00:00: 00 Yes 50ug Take 50 mcg by mouth. [facility] levothyroxi ne 50 mcg tablet 08-18 00:00: 00 Yes 50ug Take 50 mcg by mouth. [facility] levothyroxi ne 50 mcg tablet 08-18 00:00: 00 Yes 50ug Take 50 mcg by mouth. [facility] levothyroxi ne 50 mcg tablet 08-18 00:00: 00 Yes 50ug Take 50 mcg by mouth. [facility] levothyroxi ne 50 mcg tablet 08-18 00:00: 00 Yes 50ug Take 50 mcg by mouth. [facility] levothyroxi ne 50 mcg tablet 08-18 00:00: 00 Yes 50ug Take 50 mcg by mouth. [facility] levothyroxi ne 50 mcg tablet 08-18 00:00: 00 Yes 50ug Take 50 mcg by mouth. [facility] levothyroxi ne 50 mcg tablet 08-18 00:00: 00 Yes 50ug Take 50 mcg by mouth. [facility] levothyroxi ne 50 mcg tablet 08-18 00:00: 00 09-13 00:00 :00 No 50ug Take 50 mcg by mouth. [facility] levothyroxi ne 50 mcg tablet 08-18 00:00: 00 09-13 00:00 :00 No 50ug Take 50 mcg by mouth. [facility] levothyroxi ne 50 mcg tablet 2 00:00: 00 09-13 00:00 :00 No 50ug Take 50 mcg by mouth. [facility] levothyroxi ne 50 mcg tablet 2 00:00: 00 09-13 00:00 :00 No 50ug Take 50 mcg by mouth. [facility] levothyroxi ne 50 mcg tablet 2 00:00: 00 09-13 00:00 :00 No 50ug Take 50 mcg by mouth. [facility] levothyroxi ne 50 mcg tablet 08-18 00:00: 00 09-13 00:00 :00 No 50ug Take 50 mcg by mouth. [facility] levothyroxi ne 50 mcg tablet 08-18 00:00: 00 09-13 00:00 :00 No 50ug Take 50 mcg by mouth. [facility] levothyroxi ne 50 mcg tablet 2 00:00: 00 09-13 00:00 :00 No 50ug Take 50 mcg by mouth. [facility] pantoprazol e 40 mg EC tablet - 00:00: 00 Yes 40mg Take 40 mg by mouth every morning. [facility] pantoprazol e 40 mg EC tablet 1-10 00:00: 00 Yes 40mg Take 40 mg by mouth every morning. [facility] pantoprazol e 40 mg EC tablet 0 1-10 00:00: 00 04-08 00:00 :00 No 40mg Take 40 mg by mouth every morning. [facility] pantoprazol e 40 mg EC tablet 1-10 00:00: 00 04-08 00:00 :00 No 40mg Take 40 mg by mouth every morning. [facility] pantoprazol e 40 mg EC tablet 0 1-10 00:00: 00 04-08 00:00 :00 No 40mg Take 40 mg by mouth every morning. [facility] pantoprazol e 40 mg EC tablet 0 1-10 00:00: 00 04-08 00:00 :00 No 40mg Take 40 mg by mouth every morning. [facility] pantoprazol e 40 mg EC tablet 1-10 00:00: 00 04-08 00:00 :00 No 40mg Take 40 mg by mouth every morning. [facility] pantoprazol e 40 mg EC tablet 1-10 00:00: 00 04-08 00:00 :00 No 40mg Take 40 mg by mouth every morning. [facility] pantoprazol e 40 mg EC tablet 1-10 00:00: 00 04-08 00:00 :00 No 40mg Take 40 mg by mouth every morning. [facility] pantoprazol e 40 mg EC tablet 1-10 00:00: 00 04-08 00:00 :00 No 40mg Take 40 mg by mouth every morning. [facility] pantoprazol e 40 mg EC tablet 1-10 00:00: 00 04-08 00:00 :00 No 40mg Take 40 mg by mouth every morning. [facility] adalimumab (HUMIRA,CF, PEN) 40 mg/0.4 mL injection 2020-07 00:00: 00 10-25 00:00 :00 No [id number] 40mg inject 1 Pen under the skin every 14 (fourteen) days. [facility] simvastatin 40 mg tablet 03-09 00:00: 00 02-21 00:00 :00 No [id number] 40mg Take 1 tablet by mouth at bedtime. [facility] simvastatin 40 mg tablet 03-09 00:00: 00 02-21 00:00 :00 No [id number] 40mg Take 1 tablet by mouth at bedtime. [facility] simvastatin 40 mg tablet 2021-0 8-24 00:00: 00 02-21 00:00 :00 No [id number] 40mg Take 1 tablet by mouth at bedtime. [facility] simvastatin 40 mg tablet 24 00:00: 00 02-21 00:00 :00 No [id number] 40mg Take 1 tablet by mouth at bedtime. [facility] simvastatin 40 mg tablet 03-09 00:00: 00 02-21 00:00 :00 No [id number] 40mg Take 1 tablet by mouth at bedtime. [facility] simvastatin 40 mg tablet 03-09 00:00: 00 02-21 00:00 :00 No [id number] 40mg Take 1 tablet by mouth at bedtime. [facility] simvastatin 40 mg tablet 03-09 00:00: 00 02-21 00:00 :00 No [id number] 40mg Take 1 tablet by mouth at bedtime. [facility] metformin ER 500 mg 24 hr tablet 02-16 00:00: 00 08-13 00:00 :00 No [id number] TAKE 1 TABLET BY MOUTH EVERY DAY WITH THE EVENING MEAL [facility] metformin ER 500 mg 24 hr tablet 02-16 00:00: 00 08-13 00:00 :00 No [id number] TAKE 1 TABLET BY MOUTH EVERY DAY WITH THE EVENING MEAL [facility] lamoTRIgine 200 mg tablet 12-08 00:00: 00 Yes 200mg Take 200 mg by mouth at bedtime. [facility] QUEtiapine 100 mg tablet 12-08 00:00: 00 Yes 100mg Take 100 mg by mouth at bedtime. [facility] SERTraline 50 mg tablet 12-08 00:00: 00 Yes 50mg Take 50 mg by mouth at bedtime. [facility] lamoTRIgine 200 mg tablet 12-08 00:00: 00 Yes 200mg Take 200 mg by mouth at bedtime. [facility] QUEtiapine 100 mg tablet 12-08 00:00: 00 Yes 100mg Take 100 mg by mouth at bedtime. [facility] SERTraline 50 mg tablet 12-08 00:00: 00 Yes 50mg Take 50 mg by mouth at bedtime. [facility] lamoTRIgine 200 mg tablet 12-08 00:00: 00 Yes 200mg Take 200 mg by mouth at bedtime. [facility] QUEtiapine 100 mg tablet 12-08 00:00: 00 Yes 100mg Take 100 mg by mouth at bedtime. [facility] SERTraline 50 mg tablet 12-08 00:00: 00 Yes 50mg Take 50 mg by mouth at bedtime. [facility] lamoTRIgine 200 mg tablet 12-08 00:00: 00 Yes 200mg Take 200 mg by mouth at bedtime. [facility] QUEtiapine 100 mg tablet 12-08 00:00: 00 Yes 100mg Take 100 mg by mouth at bedtime. [facility] SERTraline 50 mg tablet 12-08 00:00: 00 Yes 50mg Take 50 mg by mouth at bedtime. [facility] lamoTRIgine 200 mg tablet 12-08 00:00: 00 Yes 200mg Take 200 mg by mouth at bedtime. [facility] QUEtiapine 100 mg tablet 12-08 00:00: 00 Yes 100mg Take 100 mg by mouth at bedtime. [facility] SERTraline 50 mg tablet 12-08 00:00: 00 Yes 50mg Take 50 mg by mouth at bedtime. [facility] lamoTRIgine 200 mg tablet 12-08 00:00: 00 Yes 200mg Take 200 mg by mouth at bedtime. [facility] QUEtiapine 100 mg tablet 12-08 00:00: 00 Yes 100mg Take 100 mg by mouth at bedtime. [facility] SERTraline 50 mg tablet 12-08 00:00: 00 Yes 50mg Take 50 mg by mouth at bedtime. [facility] lamoTRIgine 200 mg tablet 12-08 00:00: 00 Yes 200mg Take 200 mg by mouth at bedtime. [facility] QUEtiapine 100 mg tablet 12-08 00:00: 00 Yes 100mg Take 100 mg by mouth at bedtime. [facility] SERTraline 50 mg tablet 12-08 00:00: 00 Yes 50mg Take 50 mg by mouth at bedtime. [facility] lamoTRIgine 200 mg tablet 12-08 00:00: 00 Yes 200mg Take 200 mg by mouth at bedtime. [facility] QUEtiapine 100 mg tablet 12-08 00:00: 00 Yes 100mg Take 100 mg by mouth at bedtime. [facility] SERTraline 50 mg tablet 12-08 00:00: 00 Yes 50mg Take 50 mg by mouth at bedtime. [facility] lamoTRIgine 200 mg tablet 12-08 00:00: 00 Yes 200mg Take 200 mg by mouth at bedtime. [facility] QUEtiapine 100 mg tablet 12-08 00:00: 00 Yes 100mg Take 100 mg by mouth at bedtime. [facility] SERTraline 50 mg tablet 12-08 00:00: 00 Yes 50mg Take 50 mg by mouth at bedtime. [facility] lamoTRIgine 200 mg tablet 12-08 00:00: 00 Yes 200mg Take 200 mg by mouth at bedtime. [facility] QUEtiapine 100 mg tablet 0 12-08 00:00: 00 Yes 100mg Take 100 mg by mouth at bedtime. [facility] SERTraline 50 mg tablet 12-08 00:00: 00 Yes 50mg Take 50 mg by mouth at bedtime. [facility] lamoTRIgine 200 mg tablet 12-08 00:00: 00 Yes 200mg Take 200 mg by mouth at bedtime. [facility] QUEtiapine 100 mg tablet 0 12-08 00:00: 00 Yes 100mg Take 100 mg by mouth at bedtime. [facility] SERTraline 50 mg tablet 12-08 00:00: 00 Yes 50mg Take 50 mg by mouth at bedtime. [facility] lamoTRIgine 200 mg tablet 0 12-08 00:00: 00 Yes 200mg Take 200 mg by mouth at bedtime. [facility] QUEtiapine 100 mg tablet 0 12-08 00:00: 00 Yes 100mg Take 100 mg by mouth at bedtime. [facility] SERTraline 50 mg tablet 12-08 00:00: 00 Yes 50mg Take 50 mg by mouth at bedtime. [facility] lamoTRIgine 200 mg tablet 12-08 00:00: 00 Yes 200mg Take 200 mg by mouth at bedtime. [facility] QUEtiapine 100 mg tablet 12-08 00:00: 00 Yes 100mg Take 100 mg by mouth at bedtime. [facility] SERTraline 50 mg tablet 0 12-08 00:00: 00 Yes 50mg Take 50 mg by mouth at bedtime. [facility] lamoTRIgine 200 mg tablet 12-08 00:00: 00 Yes 200mg Take 200 mg by mouth at bedtime. [facility] QUEtiapine 100 mg tablet 0 12-08 00:00: 00 Yes 100mg Take 100 mg by mouth at bedtime. [facility] SERTraline 50 mg tablet 0 12-08 00:00: 00 Yes 50mg Take 50 mg by mouth at bedtime. [facility] lamoTRIgine 200 mg tablet 0 12-08 00:00: 00 Yes 200mg Take 200 mg by mouth at bedtime. [facility] QUEtiapine 100 mg tablet 0 12-08 00:00: 00 Yes 100mg Take 100 mg by mouth at bedtime. [facility] SERTraline 50 mg tablet 0 12-08 00:00: 00 Yes 50mg Take 50 mg by mouth at bedtime. [facility] lamoTRIgine 200 mg tablet 0 12-08 00:00: 00 Yes 200mg Take 200 mg by mouth at bedtime. [facility] QUEtiapine 100 mg tablet 12-08 00:00: 00 Yes 100mg Take 100 mg by mouth at bedtime. [facility] SERTraline 50 mg tablet 12-08 00:00: 00 Yes 50mg Take 50 mg by mouth at bedtime. [facility] lamoTRIgine 200 mg tablet 0 12-08 00:00: 00 Yes 200mg Take 200 mg by mouth at bedtime. [facility] QUEtiapine 100 mg tablet 12-08 00:00: 00 Yes 100mg Take 100 mg by mouth at bedtime. [facility] SERTraline 50 mg tablet 12-08 00:00: 00 Yes 50mg Take 50 mg by mouth at bedtime. [facility] lamoTRIgine 200 mg tablet 12-08 00:00: 00 Yes 200mg Take 200 mg by mouth at bedtime. [facility] QUEtiapine 100 mg tablet 12-08 00:00: 00 Yes 100mg Take 100 mg by mouth at bedtime. [facility] SERTraline 50 mg tablet 0 12-08 00:00: 00 Yes 50mg Take 50 mg by mouth at bedtime. [facility] lamoTRIgine 200 mg tablet 0 12-08 00:00: 00 Yes 200mg Take 200 mg by mouth at bedtime. [facility] QUEtiapine 100 mg tablet 0 12-08 00:00: 00 Yes 100mg Take 100 mg by mouth at bedtime. [facility] SERTraline 50 mg tablet 0 12-08 00:00: 00 Yes 50mg Take 50 mg by mouth at bedtime. [facility] lamoTRIgine 200 mg tablet 0 12-08 00:00: 00 Yes 200mg Take 200 mg by mouth at bedtime. [facility] QUEtiapine 100 mg tablet 0 12-08 00:00: 00 Yes 100mg Take 100 mg by mouth at bedtime. [facility] SERTraline 50 mg tablet 0 12-08 00:00: 00 Yes 50mg Take 50 mg by mouth at bedtime. [facility] lamoTRIgine 200 mg tablet 0 12-08 00:00: 00 Yes 200mg Take 200 mg by mouth at bedtime. [facility] QUEtiapine 100 mg tablet 12-08 00:00: 00 Yes 100mg Take 100 mg by mouth at bedtime. [facility] SERTraline 50 mg tablet 12-08 00:00: 00 Yes 50mg Take 50 mg by mouth at bedtime. [facility] lamoTRIgine 200 mg tablet 0 12-08 00:00: 00 Yes 200mg Take 200 mg by mouth at bedtime. [facility] QUEtiapine 100 mg tablet 0 12-08 00:00: 00 Yes 100mg Take 100 mg by mouth at bedtime. [facility] SERTraline 50 mg tablet 0 12-08 00:00: 00 Yes 50mg Take 50 mg by mouth at bedtime. [facility] lamoTRIgine 200 mg tablet 12-08 00:00: 00 Yes 200mg Take 200 mg by mouth at bedtime. [facility] QUEtiapine 100 mg tablet 0 12-08 00:00: 00 Yes 100mg Take 100 mg by mouth at bedtime. [facility] SERTraline 50 mg tablet 0 12-08 00:00: 00 Yes 50mg Take 50 mg by mouth at bedtime. [facility] lamoTRIgine 200 mg tablet 0 12-08 00:00: 00 Yes 200mg Take 200 mg by mouth at bedtime. [facility] QUEtiapine 100 mg tablet 0 12-08 00:00: 00 Yes 100mg Take 100 mg by mouth at bedtime. [facility] SERTraline 50 mg tablet 12-08 00:00: 00 Yes 50mg Take 50 mg by mouth at bedtime. [facility] lamoTRIgine 200 mg tablet 12-08 00:00: 00 Yes 200mg Take 200 mg by mouth at bedtime. [facility] QUEtiapine 100 mg tablet 12-08 00:00: 00 Yes 100mg Take 100 mg by mouth at bedtime. [facility] SERTraline 50 mg tablet 12-08 00:00: 00 Yes 50mg Take 50 mg by mouth at bedtime. [facility] lamoTRIgine 200 mg tablet 12-08 00:00: 00 Yes 200mg Take 200 mg by mouth at bedtime. [facility] QUEtiapine 100 mg tablet 12-08 00:00: 00 Yes 100mg Take 100 mg by mouth at bedtime. [facility] SERTraline 50 mg tablet 12-08 00:00: 00 Yes 50mg Take 50 mg by mouth at bedtime. [facility] lamoTRIgine 200 mg tablet 12-08 00:00: 00 Yes 200mg Take 200 mg by mouth at bedtime. [facility] QUEtiapine 100 mg tablet 12-08 00:00: 00 Yes 100mg Take 100 mg by mouth at bedtime. [facility] SERTraline 50 mg tablet 12-08 00:00: 00 Yes 50mg Take 50 mg by mouth at bedtime. [facility] lamoTRIgine 200 mg tablet 12-08 00:00: 00 Yes 200mg Take 200 mg by mouth at bedtime. [facility] QUEtiapine 100 mg tablet 12-08 00:00: 00 Yes 100mg Take 100 mg by mouth at bedtime. [facility] SERTraline 50 mg tablet 12-08 00:00: 00 Yes 50mg Take 50 mg by mouth at bedtime. [facility] lamoTRIgine 200 mg tablet 12-08 00:00: 00 Yes 200mg Take 200 mg by mouth at bedtime. [facility] QUEtiapine 100 mg tablet 12-08 00:00: 00 Yes 100mg Take 100 mg by mouth at bedtime. [facility] SERTraline 50 mg tablet 12-08 00:00: 00 Yes 50mg Take 50 mg by mouth at bedtime. [facility] lamoTRIgine 200 mg tablet 12-08 00:00: 00 Yes 200mg Take 200 mg by mouth at bedtime. [facility] QUEtiapine 100 mg tablet 12-08 00:00: 00 Yes 100mg Take 100 mg by mouth at bedtime. [facility] SERTraline 50 mg tablet 12-08 00:00: 00 Yes 50mg Take 50 mg by mouth at bedtime. [facility] lamoTRIgine 200 mg tablet 12-08 00:00: 00 Yes 200mg Take 200 mg by mouth at bedtime. [facility] QUEtiapine 100 mg tablet 12-08 00:00: 00 Yes 100mg Take 100 mg by mouth at bedtime. [facility] SERTraline 50 mg tablet 12-08 00:00: 00 Yes 50mg Take 50 mg by mouth at bedtime. [facility] lamoTRIgine 200 mg tablet 12-08 00:00: 00 Yes 200mg Take 200 mg by mouth at bedtime. [facility] QUEtiapine 100 mg tablet 12-08 00:00: 00 Yes 100mg Take 100 mg by mouth at bedtime. [facility] SERTraline 50 mg tablet 12-08 00:00: 00 Yes 50mg Take 50 mg by mouth at bedtime. [facility] lamoTRIgine 200 mg tablet 12-08 00:00: 00 Yes 200mg Take 200 mg by mouth at bedtime. [facility] QUEtiapine 100 mg tablet 0 12-08 00:00: 00 Yes 100mg Take 100 mg by mouth at bedtime. [facility] SERTraline 50 mg tablet 0 12-08 00:00: 00 Yes 50mg Take 50 mg by mouth at bedtime. [facility] lamoTRIgine 200 mg tablet 12-08 00:00: 00 Yes 200mg Take 200 mg by mouth at bedtime. [facility] QUEtiapine 100 mg tablet 0 12-08 00:00: 00 Yes 100mg Take 100 mg by mouth at bedtime. [facility] SERTraline 50 mg tablet 12-08 00:00: 00 Yes 50mg Take 50 mg by mouth at bedtime. [facility] lamoTRIgine 200 mg tablet 12-08 00:00: 00 Yes 200mg Take 200 mg by mouth at bedtime. [facility] QUEtiapine 100 mg tablet 12-08 00:00: 00 Yes 100mg Take 100 mg by mouth at bedtime. [facility] SERTraline 50 mg tablet 12-08 00:00: 00 Yes 50mg Take 50 mg by mouth at bedtime. [facility] lamoTRIgine 200 mg tablet 12-08 00:00: 00 Yes 200mg Take 200 mg by mouth at bedtime. [facility] QUEtiapine 100 mg tablet 12-08 00:00: 00 Yes 100mg Take 100 mg by mouth at bedtime. [facility] SERTraline 50 mg tablet 12-08 00:00: 00 Yes 50mg Take 50 mg by mouth at bedtime. [facility] lamoTRIgine 200 mg tablet 12-08 00:00: 00 Yes 200mg Take 200 mg by mouth at bedtime. [facility] QUEtiapine 100 mg tablet 12-08 00:00: 00 Yes 100mg Take 100 mg by mouth at bedtime. [facility] SERTraline 50 mg tablet 0 12-08 00:00: 00 Yes 50mg Take 50 mg by mouth at bedtime. [facility] lamoTRIgine 200 mg tablet 12-08 00:00: 00 Yes 200mg Take 200 mg by mouth at bedtime. [facility] QUEtiapine 100 mg tablet 12-08 00:00: 00 Yes 100mg Take 100 mg by mouth at bedtime. [facility] SERTraline 50 mg tablet 12-08 00:00: 00 Yes 50mg Take 50 mg by mouth at bedtime. [facility] lamoTRIgine 200 mg tablet 12-08 00:00: 00 Yes 200mg Take 200 mg by mouth at bedtime. [facility] QUEtiapine 100 mg tablet 12-08 00:00: 00 Yes 100mg Take 100 mg by mouth at bedtime. [facility] SERTraline 50 mg tablet 12-08 00:00: 00 Yes 50mg Take 50 mg by mouth at bedtime. [facility] lamoTRIgine 200 mg tablet 12-08 00:00: 00 Yes 200mg Take 200 mg by mouth at bedtime. [facility] QUEtiapine 100 mg tablet 12-08 00:00: 00 Yes 100mg Take 100 mg by mouth at bedtime. [facility] SERTraline 50 mg tablet 12-08 00:00: 00 Yes 50mg Take 50 mg by mouth at bedtime. [facility] lamoTRIgine 200 mg tablet 12-08 00:00: 00 Yes 200mg Take 200 mg by mouth at bedtime. [facility] QUEtiapine 100 mg tablet 12-08 00:00: 00 Yes 100mg Take 100 mg by mouth at bedtime. [facility] SERTraline 50 mg tablet 12-08 00:00: 00 Yes 50mg Take 50 mg by mouth at bedtime. [facility] lamoTRIgine 200 mg tablet 12-08 00:00: 00 Yes 200mg Take 200 mg by mouth at bedtime. [facility] QUEtiapine 100 mg tablet 0 12-08 00:00: 00 Yes 100mg Take 100 mg by mouth at bedtime. [facility] SERTraline 50 mg tablet 0 12-08 00:00: 00 Yes 50mg Take 50 mg by mouth at bedtime. [facility] lamoTRIgine 200 mg tablet 12-08 00:00: 00 Yes 200mg Take 200 mg by mouth at bedtime. [facility] QUEtiapine 100 mg tablet 12-08 00:00: 00 Yes 100mg Take 100 mg by mouth at bedtime. [facility] SERTraline 50 mg tablet 12-08 00:00: 00 Yes 50mg Take 50 mg by mouth at bedtime. [facility] lamoTRIgine 200 mg tablet 12-08 00:00: 00 Yes 200mg Take 200 mg by mouth at bedtime. [facility] QUEtiapine 100 mg tablet 12-08 00:00: 00 Yes 100mg Take 100 mg by mouth at bedtime. [facility] SERTraline 50 mg tablet 12-08 00:00: 00 Yes 50mg Take 50 mg by mouth at bedtime. [facility] lamoTRIgine 200 mg tablet 12-08 00:00: 00 Yes 200mg Take 200 mg by mouth at bedtime. [facility] QUEtiapine 100 mg tablet 12-08 00:00: 00 Yes 100mg Take 100 mg by mouth at bedtime. [facility] SERTraline 50 mg tablet 12-08 00:00: 00 Yes 50mg Take 50 mg by mouth at bedtime. [facility] lamoTRIgine 200 mg tablet 12-08 00:00: 00 Yes 200mg Take 200 mg by mouth at bedtime. [facility] QUEtiapine 100 mg tablet 12-08 00:00: 00 Yes 100mg Take 100 mg by mouth at bedtime. [facility] SERTraline 50 mg tablet 0 12-08 00:00: 00 Yes 50mg Take 50 mg by mouth at bedtime. [facility] lamoTRIgine 200 mg tablet 12-08 00:00: 00 Yes 200mg Take 200 mg by mouth at bedtime. [facility] QUEtiapine 100 mg tablet 12-08 00:00: 00 Yes 100mg Take 100 mg by mouth at bedtime. [facility] SERTraline 50 mg tablet 12-08 00:00: 00 Yes 50mg Take 50 mg by mouth at bedtime. [facility] lamoTRIgine 200 mg tablet 12-08 00:00: 00 Yes 200mg Take 200 mg by mouth at bedtime. [facility] QUEtiapine 100 mg tablet 12-08 00:00: 00 Yes 100mg Take 100 mg by mouth at bedtime. [facility] SERTraline 50 mg tablet 12-08 00:00: 00 Yes 50mg Take 50 mg by mouth at bedtime. [facility] lamoTRIgine 200 mg tablet 12-08 00:00: 00 Yes 200mg Take 200 mg by mouth at bedtime. [facility] QUEtiapine 100 mg tablet 12-08 00:00: 00 Yes 100mg Take 100 mg by mouth at bedtime. [facility] SERTraline 50 mg tablet 12-08 00:00: 00 Yes 50mg Take 50 mg by mouth at bedtime. [facility] lamoTRIgine 200 mg tablet 12-08 00:00: 00 Yes 200mg Take 200 mg by mouth at bedtime. [facility] QUEtiapine 100 mg tablet 12-08 00:00: 00 Yes 100mg Take 100 mg by mouth at bedtime. [facility] SERTraline 50 mg tablet 0 12-08 00:00: 00 Yes 50mg Take 50 mg by mouth at bedtime. [facility] lamoTRIgine 200 mg tablet 12-08 00:00: 00 Yes 200mg Take 200 mg by mouth at bedtime. [facility] QUEtiapine 100 mg tablet 0 12-08 00:00: 00 Yes 100mg Take 100 mg by mouth at bedtime. [facility] SERTraline 50 mg tablet 12-08 00:00: 00 Yes 50mg Take 50 mg by mouth at bedtime. [facility] lamoTRIgine 200 mg tablet 12-08 00:00: 00 Yes 200mg Take 200 mg by mouth at bedtime. [facility] QUEtiapine 100 mg tablet 12-08 00:00: 00 Yes 100mg Take 100 mg by mouth at bedtime. [facility] SERTraline 50 mg tablet 12-08 00:00: 00 Yes 50mg Take 50 mg by mouth at bedtime. [facility] lamoTRIgine 200 mg tablet 12-08 00:00: 00 Yes 200mg Take 200 mg by mouth at bedtime. [facility] QUEtiapine 100 mg tablet 12-08 00:00: 00 Yes 100mg Take 100 mg by mouth at bedtime. [facility] SERTraline 50 mg tablet 12-08 00:00: 00 Yes 50mg Take 50 mg by mouth at bedtime. [facility] lamoTRIgine 200 mg tablet 12-08 00:00: 00 Yes 200mg Take 200 mg by mouth at bedtime. [facility] QUEtiapine 100 mg tablet 12-08 00:00: 00 Yes 100mg Take 100 mg by mouth at bedtime. [facility] SERTraline 50 mg tablet 12-08 00:00: 00 Yes 50mg Take 50 mg by mouth at bedtime. [facility] lamoTRIgine 200 mg tablet 12-08 00:00: 00 Yes 200mg Take 200 mg by mouth at bedtime. [facility] QUEtiapine 100 mg tablet 12-08 00:00: 00 Yes 100mg Take 100 mg by mouth at bedtime. [facility] SERTraline 50 mg tablet 0 12-08 00:00: 00 Yes 50mg Take 50 mg by mouth at bedtime. [facility] lamoTRIgine 200 mg tablet 0 12-08 00:00: 00 Yes 200mg Take 200 mg by mouth at bedtime. [facility] QUEtiapine 100 mg tablet 0 12-08 00:00: 00 Yes 100mg Take 100 mg by mouth at bedtime. [facility] SERTraline 50 mg tablet 0 12-08 00:00: 00 Yes 50mg Take 50 mg by mouth at bedtime. [facility] lamoTRIgine 200 mg tablet 0 12-08 00:00: 00 Yes 200mg Take 200 mg by mouth at bedtime. [facility] QUEtiapine 100 mg tablet 0 12-08 00:00: 00 Yes 100mg Take 100 mg by mouth at bedtime. [facility] SERTraline 50 mg tablet 0 12-08 00:00: 00 Yes 50mg Take 50 mg by mouth at bedtime. [facility] lamoTRIgine 200 mg tablet 0 12-08 00:00: 00 Yes 200mg Take 200 mg by mouth at bedtime. [facility] QUEtiapine 100 mg tablet 0 12-08 00:00: 00 Yes 100mg Take 100 mg by mouth at bedtime. [facility] SERTraline 50 mg tablet 0 12-08 00:00: 00 Yes 50mg Take 50 mg by mouth at bedtime. [facility] lamoTRIgine 200 mg tablet 0 12-08 00:00: 00 Yes 200mg Take 200 mg by mouth at bedtime. [facility] QUEtiapine 100 mg tablet 0 12-08 00:00: 00 Yes 100mg Take 100 mg by mouth at bedtime. [facility] SERTraline 50 mg tablet 0 12-08 00:00: 00 Yes 50mg Take 50 mg by mouth at bedtime. [facility] lamoTRIgine 200 mg tablet 0 12-08 00:00: 00 Yes 200mg Take 200 mg by mouth at bedtime. [facility] QUEtiapine 100 mg tablet 12-08 00:00: 00 Yes 100mg Take 100 mg by mouth at bedtime. [facility] SERTraline 50 mg tablet 12-08 00:00: 00 Yes 50mg Take 50 mg by mouth at bedtime. [facility] lamoTRIgine 200 mg tablet 12-08 00:00: 00 Yes 200mg Take 200 mg by mouth at bedtime. [facility] QUEtiapine 100 mg tablet 12-08 00:00: 00 Yes 100mg Take 100 mg by mouth at bedtime. [facility] SERTraline 50 mg tablet 12-08 00:00: 00 Yes 50mg Take 50 mg by mouth at bedtime. [facility] lamoTRIgine 200 mg tablet 12-08 00:00: 00 Yes 200mg Take 200 mg by mouth at bedtime. [facility] QUEtiapine 100 mg tablet 12-08 00:00: 00 Yes 100mg Take 100 mg by mouth at bedtime. [facility] SERTraline 50 mg tablet 12-08 00:00: 00 Yes 50mg Take 50 mg by mouth at bedtime. [facility] lamoTRIgine 200 mg tablet 12-08 00:00: 00 Yes 200mg Take 200 mg by mouth at bedtime. [facility] QUEtiapine 100 mg tablet 12-08 00:00: 00 Yes 100mg Take 100 mg by mouth at bedtime. [facility] SERTraline 50 mg tablet 12-08 00:00: 00 Yes 50mg Take 50 mg by mouth at bedtime. [facility] lamoTRIgine 200 mg tablet 12-08 00:00: 00 Yes 200mg Take 200 mg by mouth at bedtime. [facility] QUEtiapine 100 mg tablet 12-08 00:00: 00 Yes 100mg Take 100 mg by mouth at bedtime. [facility] SERTraline 50 mg tablet 12-08 00:00: 00 Yes 50mg Take 50 mg by mouth at bedtime. [facility] lamoTRIgine 200 mg tablet 0 12-08 00:00: 00 Yes 200mg Take 200 mg by mouth at bedtime. [facility] QUEtiapine 100 mg tablet 0 12-08 00:00: 00 Yes 100mg Take 100 mg by mouth at bedtime. [facility] lamoTRIgine 200 mg tablet 0 12-08 00:00: 00 Yes 200mg Take 200 mg by mouth at bedtime. [facility] QUEtiapine 100 mg tablet 0 12-08 00:00: 00 Yes 100mg Take 100 mg by mouth at bedtime. [facility] lamoTRIgine 200 mg tablet 0 12-08 00:00: 00 Yes 200mg Take 200 mg by mouth at bedtime. [facility] QUEtiapine 100 mg tablet 0 12-08 00:00: 00 Yes 100mg Take 100 mg by mouth at bedtime. [facility] lamoTRIgine 200 mg tablet 0 12-08 00:00: 00 Yes 200mg Take 200 mg by mouth at bedtime. [facility] QUEtiapine 100 mg tablet 0 12-08 00:00: 00 Yes 100mg Take 100 mg by mouth at bedtime. [facility] lamoTRIgine 200 mg tablet 0 12-08 00:00: 00 Yes 200mg Take 200 mg by mouth at bedtime. [facility] QUEtiapine 100 mg tablet 0 12-08 00:00: 00 Yes 100mg Take 100 mg by mouth at bedtime. [facility] lamoTRIgine 200 mg tablet 0 12-08 00:00: 00 Yes 200mg Take 200 mg by mouth at bedtime. [facility] QUEtiapine 100 mg tablet 0 12-08 00:00: 00 Yes 100mg Take 100 mg by mouth at bedtime. [facility] lamoTRIgine 200 mg tablet 0 12-08 00:00: 00 Yes 200mg Take 200 mg by mouth at bedtime. [facility] QUEtiapine 100 mg tablet 0 12-08 00:00: 00 Yes 100mg Take 100 mg by mouth at bedtime. [facility] lamoTRIgine 200 mg tablet 0 12-08 00:00: 00 Yes 200mg Take 200 mg by mouth at bedtime. [facility] QUEtiapine 100 mg tablet 0 12-08 00:00: 00 Yes 100mg Take 100 mg by mouth at bedtime. [facility] lamoTRIgine 200 mg tablet 0 12-08 00:00: 00 Yes 200mg Take 200 mg by mouth at bedtime. [facility] QUEtiapine 100 mg tablet 0 12-08 00:00: 00 Yes 100mg Take 100 mg by mouth at bedtime. [facility] lamoTRIgine 200 mg tablet 0 12-08 00:00: 00 Yes 200mg Take 200 mg by mouth at bedtime. [facility] QUEtiapine 100 mg tablet 0 12-08 00:00: 00 Yes 100mg Take 100 mg by mouth at bedtime. [facility] lamoTRIgine 200 mg tablet 0 12-08 00:00: 00 Yes 200mg Take 200 mg by mouth at bedtime. [facility] QUEtiapine 100 mg tablet 0 12-08 00:00: 00 Yes 100mg Take 100 mg by mouth at bedtime. [facility] lamoTRIgine 200 mg tablet 0 12-08 00:00: 00 Yes 200mg Take 200 mg by mouth at bedtime. [facility] QUEtiapine 100 mg tablet 0 12-08 00:00: 00 Yes 100mg Take 100 mg by mouth at bedtime. [facility] lamoTRIgine 200 mg tablet 0 12-08 00:00: 00 Yes 200mg Take 200 mg by mouth at bedtime. [facility] QUEtiapine 100 mg tablet 0 12-08 00:00: 00 Yes 100mg Take 100 mg by mouth at bedtime. [facility] lamoTRIgine 200 mg tablet 2020-0 12-08 00:00: 00 Yes 200mg Take 200 mg by mouth at bedtime. [facility] QUEtiapine 100 mg tablet 0 12-08 00:00: 00 Yes 100mg Take 100 mg by mouth at bedtime. [facility] lamoTRIgine 200 mg tablet 0 12-08 00:00: 00 Yes 200mg Take 200 mg by mouth at bedtime. [facility] QUEtiapine 100 mg tablet 0 12-08 00:00: 00 Yes 100mg Take 100 mg by mouth at bedtime. [facility] lamoTRIgine 200 mg tablet 0 12-08 00:00: 00 Yes 200mg Take 200 mg by mouth at bedtime. [facility] QUEtiapine 100 mg tablet 0 12-08 00:00: 00 Yes 100mg Take 100 mg by mouth at bedtime. [facility] lamoTRIgine 200 mg tablet 0 12-08 00:00: 00 Yes 200mg Take 200 mg by mouth at bedtime. [facility] QUEtiapine 100 mg tablet 0 12-08 00:00: 00 Yes 100mg Take 100 mg by mouth at bedtime. [facility] lamoTRIgine 200 mg tablet 0 12-08 00:00: 00 Yes 200mg Take 200 mg by mouth at bedtime. [facility] QUEtiapine 100 mg tablet 0 12-08 00:00: 00 Yes 100mg Take 100 mg by mouth at bedtime. [facility] lamoTRIgine 200 mg tablet 0 12-08 00:00: 00 Yes 200mg Take 200 mg by mouth at bedtime. [facility] QUEtiapine 100 mg tablet 0 12-08 00:00: 00 Yes 100mg Take 100 mg by mouth at bedtime. [facility] lamoTRIgine 200 mg tablet 0 12-08 00:00: 00 Yes 200mg Take 200 mg by mouth at bedtime. [facility] QUEtiapine 100 mg tablet 0 12-08 00:00: 00 Yes 100mg Take 100 mg by mouth at bedtime. [facility] lamoTRIgine 200 mg tablet 0 12-08 00:00: 00 Yes 200mg Take 200 mg by mouth at bedtime. [facility] QUEtiapine 100 mg tablet 0 12-08 00:00: 00 Yes 100mg Take 100 mg by mouth at bedtime. [facility] lamoTRIgine 200 mg tablet 0 12-08 00:00: 00 Yes 200mg Take 200 mg by mouth at bedtime. [facility] QUEtiapine 100 mg tablet 0 12-08 00:00: 00 Yes 100mg Take 100 mg by mouth at bedtime. [facility] lamoTRIgine 200 mg tablet 0 12-08 00:00: 00 Yes 200mg Take 200 mg by mouth at bedtime. [facility] QUEtiapine 100 mg tablet 0 12-08 00:00: 00 Yes 100mg Take 100 mg by mouth at bedtime. [facility] lamoTRIgine 200 mg tablet 0 12-08 00:00: 00 Yes 200mg Take 200 mg by mouth at bedtime. [facility] QUEtiapine 100 mg tablet 0 12-08 00:00: 00 Yes 100mg Take 100 mg by mouth at bedtime. [facility] lamoTRIgine 200 mg tablet 0 12-08 00:00: 00 Yes 200mg Take 200 mg by mouth at bedtime. [facility] QUEtiapine 100 mg tablet 0 12-08 00:00: 00 Yes 100mg Take 100 mg by mouth at bedtime. [facility] lamoTRIgine 200 mg tablet 0 12-08 00:00: 00 Yes 200mg Take 200 mg by mouth at bedtime. [facility] QUEtiapine 100 mg tablet 0 12-08 00:00: 00 Yes 100mg Take 100 mg by mouth at bedtime. [facility] lamoTRIgine 200 mg tablet 0 12-08 00:00: 00 Yes 200mg Take 200 mg by mouth at bedtime. [facility] QUEtiapine 100 mg tablet 0 12-08 00:00: 00 Yes 100mg Take 100 mg by mouth at bedtime. [facility] lamoTRIgine 200 mg tablet 0 12-08 00:00: 00 Yes 200mg Take 200 mg by mouth at bedtime. [facility] QUEtiapine 100 mg tablet 0 12-08 00:00: 00 Yes 100mg Take 100 mg by mouth at bedtime. [facility] lamoTRIgine 200 mg tablet 0 12-08 00:00: 00 Yes 200mg Take 200 mg by mouth at bedtime. [facility] QUEtiapine 100 mg tablet 0 12-08 00:00: 00 Yes 100mg Take 100 mg by mouth at bedtime. [facility] lamoTRIgine 200 mg tablet 0 12-08 00:00: 00 Yes 200mg Take 200 mg by mouth at bedtime. [facility] QUEtiapine 100 mg tablet 0 12-08 00:00: 00 Yes 100mg Take 100 mg by mouth at bedtime. [facility] lamoTRIgine 200 mg tablet 0 12-08 00:00: 00 Yes 200mg Take 200 mg by mouth at bedtime. [facility] QUEtiapine 100 mg tablet 0 12-08 00:00: 00 Yes 100mg Take 100 mg by mouth at bedtime. [facility] lamoTRIgine 200 mg tablet 0 12-08 00:00: 00 Yes 200mg Take 200 mg by mouth at bedtime. [facility] QUEtiapine 100 mg tablet 0 12-08 00:00: 00 Yes 100mg Take 100 mg by mouth at bedtime. [facility] lamoTRIgine 200 mg tablet 0 12-08 00:00: 00 Yes 200mg Take 200 mg by mouth at bedtime. [facility] QUEtiapine 100 mg tablet 0 12-08 00:00: 00 Yes 100mg Take 100 mg by mouth at bedtime. [facility] lamoTRIgine 200 mg tablet 2020-0 12-08 00:00: 00 Yes 200mg Take 200 mg by mouth at bedtime. [facility] QUEtiapine 100 mg tablet 0 12-08 00:00: 00 Yes 100mg Take 100 mg by mouth at bedtime. [facility] lamoTRIgine 200 mg tablet 0 12-08 00:00: 00 Yes 200mg Take 200 mg by mouth at bedtime. [facility] QUEtiapine 100 mg tablet 0 12-08 00:00: 00 Yes 100mg Take 100 mg by mouth at bedtime. [facility] lamoTRIgine 200 mg tablet 0 12-08 00:00: 00 Yes 200mg Take 200 mg by mouth at bedtime. [facility] QUEtiapine 100 mg tablet 0 12-08 00:00: 00 Yes 100mg Take 100 mg by mouth at bedtime. [facility] lamoTRIgine 200 mg tablet 0 12-08 00:00: 00 Yes 200mg Take 200 mg by mouth at bedtime. [facility] QUEtiapine 100 mg tablet 0 12-08 00:00: 00 Yes 100mg Take 100 mg by mouth at bedtime. [facility] lamoTRIgine 200 mg tablet 0 12-08 00:00: 00 Yes 200mg Take 200 mg by mouth at bedtime. [facility] QUEtiapine 100 mg tablet 0 12-08 00:00: 00 Yes 100mg Take 100 mg by mouth at bedtime. [facility] lamoTRIgine 200 mg tablet 0 12-08 00:00: 00 Yes 200mg Take 200 mg by mouth at bedtime. [facility] QUEtiapine 100 mg tablet 0 12-08 00:00: 00 Yes 100mg Take 100 mg by mouth at bedtime. [facility] lamoTRIgine 200 mg tablet 0 12-08 00:00: 00 Yes 200mg Take 200 mg by mouth at bedtime. [facility] QUEtiapine 100 mg tablet 0 12-08 00:00: 00 Yes 100mg Take 100 mg by mouth at bedtime. [facility] lamoTRIgine 200 mg tablet 0 12-08 00:00: 00 Yes 200mg Take 200 mg by mouth at bedtime. [facility] QUEtiapine 100 mg tablet 0 12-08 00:00: 00 Yes 100mg Take 100 mg by mouth at bedtime. [facility] lamoTRIgine 200 mg tablet 0 12-08 00:00: 00 Yes 200mg Take 200 mg by mouth at bedtime. [facility] QUEtiapine 100 mg tablet 0 12-08 00:00: 00 Yes 100mg Take 100 mg by mouth at bedtime. [facility] lamoTRIgine 200 mg tablet 0 12-08 00:00: 00 Yes 200mg Take 200 mg by mouth at bedtime. [facility] QUEtiapine 100 mg tablet 0 12-08 00:00: 00 Yes 100mg Take 100 mg by mouth at bedtime. [facility] lamoTRIgine 200 mg tablet 0 12-08 00:00: 00 Yes 200mg Take 200 mg by mouth at bedtime. [facility] QUEtiapine 100 mg tablet 0 12-08 00:00: 00 Yes 100mg Take 100 mg by mouth at bedtime. [facility] lamoTRIgine 200 mg tablet 0 12-08 00:00: 00 Yes 200mg Take 200 mg by mouth at bedtime. [facility] QUEtiapine 100 mg tablet 0 12-08 00:00: 00 Yes 100mg Take 100 mg by mouth at bedtime. [facility] lamoTRIgine 200 mg tablet 0 12-08 00:00: 00 Yes 200mg Take 200 mg by mouth at bedtime. [facility] QUEtiapine 100 mg tablet 0 12-08 00:00: 00 Yes 100mg Take 100 mg by mouth at bedtime. [facility] lamoTRIgine 200 mg tablet 0 12-08 00:00: 00 Yes 200mg Take 200 mg by mouth at bedtime. [facility] QUEtiapine 100 mg tablet 0 525 00:00: 00 Yes 100mg Take 100 mg by mouth at bedtime. [facility] SERTraline 50 mg tablet 0 525 00:00: 00 01-09 00:00 :00 No 50mg Take 50 mg by mouth at bedtime. [facility] SERTraline 50 mg tablet 0 5 00:00: 00 01-09 00:00 :00 No 50mg Take 50 mg by mouth at bedtime. [facility] SERTraline 50 mg tablet 0 12-08 00:00: 00 01-09 00:00 :00 No 50mg Take 50 mg by mouth at bedtime. [facility] SERTraline 50 mg tablet 0 5 00:00: 00 01-09 00:00 :00 No 50mg Take 50 mg by mouth at bedtime. [facility] SERTraline 50 mg tablet 0 12-08 00:00: 00 01-09 00:00 :00 No 50mg Take 50 mg by mouth at bedtime. [facility] SERTraline 50 mg tablet 0 12-08 00:00: 00 01-09 00:00 :00 No 50mg Take 50 mg by mouth at bedtime. [facility] SERTraline 50 mg tablet 0 5 00:00: 00 01-09 00:00 :00 No 50mg Take 50 mg by mouth at bedtime. [facility] SERTraline 50 mg tablet 0 525 00:00: 00 01-09 00:00 :00 No 50mg Take 50 mg by mouth at bedtime. [facility] SERTraline 50 mg tablet 0 525 00:00: 00 01-09 00:00 :00 No 50mg Take 50 mg by mouth at bedtime. [facility] SERTraline 50 mg tablet 0 525 00:00: 00 01-09 00:00 :00 No 50mg Take 50 mg by mouth at bedtime. [facility] SERTraline 50 mg tablet 25 00:00: 00 01-09 00:00 :00 No 50mg Take 50 mg by mouth at bedtime. [facility] oxyCODONE-a cetaminophe n 5-325 mg per tablet 5 00:00: 00 01-05 00:00 :00 No TAKE 1 TABLET BY MOUTH EVERY 4 HOURS NEEDED FOR [facility] cetaminophe [facility] 5-325 mg per tablet 12-02 00:00: 00 01-05 00:00 :00 No TAKE 1 TABLET BY MOUTH EVERY 4 HOURS [facility] FOR [facility]IN [facility] oxyCODONE-a cetaminophe n 5-325 mg per tablet 12-02 00:00: 00 01-05 00:00 :00 No TAKE 1 TABLET BY MOUTH EVERY 4 HOURS NEEDED FOR PAIN [facility] oxyCODONE-a cetaminophe n 5-325 mg per tablet 12-02 00:00: 00 01-05 00:00 :00 No TAKE 1 TABLET BY MOUTH EVERY 4 HOURS NEEDED FOR PAIN [facility] oxyCODONE-a cetaminophe n 5-325 mg per tablet 5 00:00: 00 01-05 00:00 :00 No TAKE 1 TABLET BY MOUTH EVERY 4 HOURS NEEDED FOR PAIN [facility] oxyCODONE-a cetaminophe n 5-325 mg per tablet - 00:00: 00 01-05 00:00 :00 No TAKE 1 TABLET BY MOUTH EVERY 4 HOURS NEEDED FOR PAIN [facility] oxyCODONE-a cetaminophe n 5-325 mg per tablet 5-19 00:00: 00 01-05 00:00 :00 No TAKE 1 TABLET BY MOUTH EVERY 4 HOURS NEEDED FOR PAIN [facility] oxyCODONE-a cetaminophe n 5-325 mg per tablet 5-19 00:00: 00 01-05 00:00 :00 No TAKE 1 TABLET BY MOUTH EVERY 4 HOURS NEEDED FOR PAIN [facility] Immunizations Ordered Immunization Name Filled Immunization Name Date Status Comments Source Influenza Virus Vaccine Quad IM, Preserv and ABX Free 6 MO-64 YRS 2022-04-08 00:00:00 Completed [facility] SARS-COV-2 COVID-19 VACCINE 18 YRS+, BIVALENT 0.5ML, IM, (MODERNA BOOSTER) 2022-04-08 00:00:00 Completed [facility] Influenza Virus Vaccine Quad IM, Preserv and ABX Free 6 MO-64 YRS 2022-04-08 00:00:00 Completed [facility] SARS-COV-2 COVID-19 VACCINE 18 YRS+, BIVALENT 0.5ML, IM, (MODERNA BOOSTER) 2022-04-08 00:00:00 Completed [facility] Influenza Virus Vaccine Quad IM, Preserv and ABX Free 6 MO-64 YRS 2022-04-08 00:00:00 Completed [facility] SARS-COV-2 COVID-19 VACCINE 18 YRS+, BIVALENT 0.5ML, IM, (MODERNA BOOSTER) 2022-04-08 00:00:00 Completed [facility] Influenza Virus Vaccine Quad IM, Preserv and ABX Free 6 MO-64 YRS 2022-04-08 00:00:00 Completed [facility] SARS-COV-2 COVID-19 VACCINE 18 YRS+, BIVALENT 0.5ML, IM, (MODERNA BOOSTER) 2022-04-08 00:00:00 Completed [facility] Influenza Virus Vaccine Quad IM, Preserv and ABX Free 6 MO-64 YRS 2022-04-08 00:00:00 Completed [facility] SARS-COV-2 COVID-19 VACCINE 18 YRS+, BIVALENT 0.5ML, IM, (MODERNA BOOSTER) 2022-04-08 00:00:00 Completed [facility] Influenza Virus Vaccine Quad IM, Preserv and ABX Free 6 MO-64 YRS 2022-04-08 00:00:00 Completed [facility] SARS-COV-2 COVID-19 VACCINE 18 YRS+, BIVALENT 0.5ML, IM, (MODERNA BOOSTER) 2022-04-08 00:00:00 Completed [facility] Influenza Virus Vaccine Quad IM, Preserv and ABX Free 6 MO-64 YRS 2022-04-08 00:00:00 Completed [facility] SARS-COV-2 COVID-19 VACCINE 18 YRS+, BIVALENT 0.5ML, IM, (MODERNA BOOSTER) 2022-04-08 00:00:00 Completed [facility] Influenza Virus Vaccine Quad IM, Preserv and ABX Free 6 MO-64 YRS 2022-04-08 00:00:00 Completed [facility] SARS-COV-2 COVID-19 VACCINE 12 YRS+, BIVALENT 0.5ML, IM, (MODERNA BOOSTER) 2022-04-08 00:00:00 Completed [facility] Influenza Virus Vaccine Quad IM, Preserv and ABX Free 6 MO-64 YRS 2022-04-08 00:00:00 Completed [facility] SARS-COV-2 COVID-19 VACCINE 12 YRS+, BIVALENT 0.5ML, IM, (MODERNA BOOSTER) 2022-04-08 00:00:00 Completed [facility] Influenza Virus Vaccine Quad IM, Preserv and ABX Free 6 MO-64 YRS 2022-04-08 00:00:00 Completed [facility] SARS-COV-2 COVID-19 VACCINE 12 YRS+, BIVALENT 0.5ML, IM, (MODERNA BOOSTER) 2022-04-08 00:00:00 Completed [facility] Influenza Virus Vaccine Quad IM, Preserv and ABX Free 6 MO-64 YRS 2022-04-08 00:00:00 Completed [facility] SARS-COV-2 COVID-19 VACCINE 12 YRS+, BIVALENT 0.5ML, IM, (MODERNA BOOSTER) 2022-04-08 00:00:00 Completed [facility] Influenza Virus Vaccine Quad IM, Preserv and ABX Free 6 MO-64 YRS 2022-04-08 00:00:00 Completed [facility] SARS-COV-2 COVID-19 VACCINE 12 YRS+, BIVALENT 0.5ML, IM, (MODERNA BOOSTER) 2022-04-08 00:00:00 Completed [facility] Influenza Virus Vaccine Quad IM, Preserv and ABX Free 6 MO-64 YRS 2022-04-08 00:00:00 Completed [facility] SARS-COV-2 COVID-19 VACCINE 12 YRS+, BIVALENT 0.5ML, IM, (MODERNA BOOSTER) 2022-04-08 00:00:00 Completed [facility] Influenza Virus Vaccine Quad IM, Preserv and ABX Free 6 MO-64 YRS 2022-04-08 00:00:00 Completed [facility] SARS-COV-2 COVID-19 VACCINE 12 YRS+, BIVALENT 0.5ML, IM, (MODERNA BOOSTER) 2022-04-08 00:00:00 Completed [facility] Influenza Virus Vaccine Quad IM, Preserv and ABX Free 6 MO-64 YRS 2022-04-08 00:00:00 Completed [facility] SARS-COV-2 COVID-19 VACCINE 12 YRS+, BIVALENT 0.5ML, IM, (MODERNA BOOSTER) 2022-04-08 00:00:00 Completed [facility] Influenza Virus Vaccine Quad IM, Preserv and ABX Free 6 MO-64 YRS 2022-04-08 00:00:00 Completed [facility] SARS-COV-2 COVID-19 VACCINE 12 YRS+, BIVALENT 0.5ML, IM, (MODERNA BOOSTER) 2022-04-08 00:00:00 Completed [facility] Influenza Virus Vaccine Quad IM, Preserv and ABX Free 6 MO-64 YRS 2022-04-08 00:00:00 Completed [facility] SARS-COV-2 COVID-19 VACCINE 12 YRS+, BIVALENT 0.5ML, IM, (MODERNA BOOSTER) 2022-04-08 00:00:00 Completed [facility] Influenza Virus Vaccine Quad IM, Preserv and ABX Free 6 MO-64 YRS 2022-04-08 00:00:00 Completed [facility] SARS-COV-2 COVID-19 VACCINE 12 YRS+, BIVALENT 0.5ML, IM, (MODERNA BOOSTER) 2022-04-08 00:00:00 Completed [facility] Influenza Virus Vaccine Quad IM, Preserv and ABX Free 6 MO-64 YRS 2022-04-08 00:00:00 Completed [facility] SARS-COV-2 COVID-19 VACCINE 12 YRS+, BIVALENT 0.5ML, IM, (MODERNA BOOSTER) 2022-04-08 00:00:00 Completed [facility] Influenza Virus Vaccine Quad IM, Preserv and ABX Free 6 MO-64 YRS 2022-04-08 00:00:00 Completed [facility] SARS-COV-2 COVID-19 VACCINE 12 YRS+, BIVALENT 0.5ML, IM, (MODERNA BOOSTER) 2022-04-08 00:00:00 Completed [facility] Influenza Virus Vaccine Quad IM, Preserv and ABX Free 6 MO-64 YRS 2022-04-08 00:00:00 Completed [facility] SARS-COV-2 COVID-19 VACCINE 12 YRS+, BIVALENT 0.5ML, IM, (MODERNA BOOSTER) 2022-04-08 00:00:00 Completed [facility] Influenza Virus Vaccine Quad IM, Preserv and ABX Free 6 MO-64 YRS 2022-04-08 00:00:00 Completed [facility] SARS-COV-2 COVID-19 VACCINE 12 YRS+, BIVALENT 0.5ML, IM, (MODERNA BOOSTER) 2022-04-08 00:00:00 Completed [facility] Influenza Virus Vaccine Quad IM, Preserv and ABX Free 6 MO-64 YRS 2022-04-08 00:00:00 Completed [facility] SARS-COV-2 COVID-19 VACCINE 12 YRS+, BIVALENT 0.5ML, IM, (MODERNA BOOSTER) 2022-04-08 00:00:00 Completed [facility] Influenza Virus Vaccine Quad IM, Preserv and ABX Free 6 MO-64 YRS 2022-04-08 00:00:00 Completed [facility] SARS-COV-2 COVID-19 VACCINE 12 YRS+, BIVALENT 0.5ML, IM, (MODERNA BOOSTER) 2022-04-08 00:00:00 Completed [facility] Influenza Virus Vaccine Quad IM, Preserv and ABX Free 6 MO-64 YRS 2022-04-08 00:00:00 Completed [facility] SARS-COV-2 COVID-19 VACCINE 12 YRS+, BIVALENT 0.5ML, IM, (MODERNA BOOSTER) 2022-04-08 00:00:00 Completed [facility] Influenza Virus Vaccine Quad IM, Preserv and ABX Free 6 MO-64 YRS 2022-04-08 00:00:00 Completed [facility] SARS-COV-2 COVID-19 VACCINE 12 YRS+, BIVALENT 0.5ML, IM, (MODERNA BOOSTER) 2022-04-08 00:00:00 Completed [facility] Influenza Virus Vaccine Quad IM, Preserv and ABX Free 6 MO-64 YRS 2022-04-08 00:00:00 Completed [facility] SARS-COV-2 COVID-19 VACCINE 12 YRS+, BIVALENT 0.5ML, IM, (MODERNA BOOSTER) 2022-04-08 00:00:00 Completed [facility] Influenza Virus Vaccine Quad IM, Preserv and ABX Free 6 MO-64 YRS 2022-04-08 00:00:00 Completed [facility] SARS-COV-2 COVID-19 VACCINE 12 YRS+, BIVALENT 0.5ML, IM, (MODERNA BOOSTER) 2022-04-08 00:00:00 Completed [facility] Influenza Virus Vaccine Quad IM, Preserv and ABX Free 6 MO-64 YRS 2022-04-08 00:00:00 Completed [facility] SARS-COV-2 COVID-19 VACCINE 12 YRS+, BIVALENT 0.5ML, IM, (MODERNA BOOSTER) 2022-04-08 00:00:00 Completed [facility] Influenza Virus Vaccine Quad IM, Preserv and ABX Free 6 MO-64 YRS 2022-04-08 00:00:00 Completed [facility] SARS-COV-2 COVID-19 VACCINE 12 YRS+, BIVALENT 0.5ML, IM, (MODERNA BOOSTER) 2022-04-08 00:00:00 Completed [facility] Influenza Virus Vaccine Quad IM, Preserv and ABX Free 6 MO-64 YRS 2022-04-08 00:00:00 Completed [facility] SARS-COV-2 COVID-19 VACCINE 12 YRS+, BIVALENT 0.5ML, IM, (MODERNA BOOSTER) 2022-04-08 00:00:00 Completed [facility] Influenza Virus Vaccine Quad IM, Preserv and ABX Free 6 MO-64 YRS 2022-04-08 00:00:00 Completed [facility] SARS-COV-2 COVID-19 VACCINE 12 YRS+, BIVALENT 0.5ML, IM, (MODERNA BOOSTER) 2022-04-08 00:00:00 Completed [facility] Influenza Virus Vaccine Quad IM, Preserv and ABX Free 6 MO-64 YRS 2022-04-08 00:00:00 Completed [facility] SARS-COV-2 COVID-19 VACCINE 12 YRS+, BIVALENT 0.5ML, IM, (MODERNA BOOSTER) 2022-04-08 00:00:00 Completed [facility] Influenza Virus Vaccine Quad IM, Preserv and ABX Free 6 MO-64 YRS 2022-04-08 00:00:00 Completed [facility] SARS-COV-2 COVID-19 VACCINE 12 YRS+, BIVALENT 0.5ML, IM, (MODERNA BOOSTER) 2022-04-08 00:00:00 Completed [facility] Influenza Virus Vaccine Quad IM, Preserv and ABX Free 6 MO-64 YRS 2022-04-08 00:00:00 Completed [facility] SARS-COV-2 COVID-19 VACCINE 12 YRS+, BIVALENT 0.5ML, IM, (MODERNA BOOSTER) 2022-04-08 00:00:00 Completed [facility] Influenza Virus Vaccine Quad IM, Preserv and ABX Free 6 MO-64 YRS 2022-04-08 00:00:00 Completed [facility] SARS-COV-2 COVID-19 VACCINE 12 YRS+, BIVALENT 0.5ML, IM, (MODERNA BOOSTER) 2022-04-08 00:00:00 Completed [facility] Influenza Virus Vaccine Quad IM, Preserv and ABX Free 6 MO-64 YRS 2022-04-08 00:00:00 Completed [facility] SARS-COV-2 COVID-19 VACCINE 12 YRS+, BIVALENT 0.5ML, IM, (MODERNA BOOSTER) 2022-04-08 00:00:00 Completed [facility] Influenza Virus Vaccine Quad IM, Preserv and ABX Free 6 MO-64 YRS 2022-04-08 00:00:00 Completed [facility] SARS-COV-2 COVID-19 VACCINE 12 YRS+, BIVALENT 0.5ML, IM, (MODERNA BOOSTER) 2022-04-08 00:00:00 Completed [facility] Influenza Virus Vaccine Quad IM, Preserv and ABX Free 6 MO-64 YRS 2022-04-08 00:00:00 Completed [facility] SARS-COV-2 COVID-19 VACCINE 12 YRS+, BIVALENT 0.5ML, IM, (MODERNA BOOSTER) 2022-04-08 00:00:00 Completed [facility] Influenza Virus Vaccine Quad IM, Preserv and ABX Free 6 MO-64 YRS 2022-04-08 00:00:00 Completed [facility] SARS-COV-2 COVID-19 VACCINE 12 YRS+, BIVALENT 0.5ML, IM, (MODERNA BOOSTER) 2022-04-08 00:00:00 Completed [facility] Influenza Virus Vaccine Quad IM, Preserv and ABX Free 6 MO-64 YRS 2022-04-08 00:00:00 Completed [facility] SARS-COV-2 COVID-19 VACCINE 12 YRS+, BIVALENT 0.5ML, IM, (MODERNA BOOSTER) 2022-04-08 00:00:00 Completed [facility] Influenza Virus Vaccine Quad IM, Preserv and ABX Free 6 MO-64 YRS 2022-04-08 00:00:00 Completed [facility] SARS-COV-2 COVID-19 VACCINE 12 YRS+, BIVALENT 0.5ML, IM, (MODERNA BOOSTER) 2022-04-08 00:00:00 Completed [facility] Influenza Virus Vaccine Quad IM, Preserv and ABX Free 6 MO-64 YRS 2022-04-08 00:00:00 Completed [facility] SARS-COV-2 COVID-19 VACCINE 12 YRS+, BIVALENT 0.5ML, IM, (MODERNA BOOSTER) 2022-04-08 00:00:00 Completed [facility] Influenza Virus Vaccine Quad IM, Preserv and ABX Free 6 MO-64 YRS 2022-04-08 00:00:00 Completed [facility] SARS-COV-2 COVID-19 VACCINE 12 YRS+, BIVALENT 0.5ML, IM, (MODERNA BOOSTER) 2022-04-08 00:00:00 Completed [facility] Influenza Virus Vaccine Quad IM, Preserv and ABX Free 6 MO-64 YRS 2022-04-08 00:00:00 Completed [facility] SARS-COV-2 COVID-19 VACCINE 12 YRS+, BIVALENT 0.5ML, IM, (MODERNA) 2022-04-08 00:00:00 Completed [facility] Influenza Virus Vaccine Quad IM, Preserv and ABX Free 6 MO-64 YRS 2022-04-08 00:00:00 Completed [facility] SARS-COV-2 COVID-19 VACCINE 12 YRS+, BIVALENT 0.5ML, IM, (MODERNA) 2022-04-08 00:00:00 Completed [facility] Influenza Virus Vaccine Quad IM, Preserv and ABX Free 6 MO-64 YRS 2022-04-08 00:00:00 Completed [facility] SARS-COV-2 COVID-19 VACCINE 12 YRS+, BIVALENT 0.5ML, IM, (MODERNA-BLUE TOP) 2022-04-08 00:00:00 Completed [facility] Influenza Virus Vaccine Quad IM, Preserv and ABX Free 6 MO-64 YRS 2022-04-08 00:00:00 Completed [facility] SARS-COV-2 COVID-19 VACCINE 12 YRS+, BIVALENT 0.5ML, IM, (MODERNA-BLUE TOP) 2022-04-08 00:00:00 Completed [facility] Influenza Virus Vaccine Quad IM, Preserv and ABX Free 6 MO-64 YRS 2022-04-08 00:00:00 Completed [facility] SARS-COV-2 COVID-19 VACCINE 12 YRS+, BIVALENT 0.5ML, IM, (MODERNA-BLUE TOP) 2022-04-08 00:00:00 Completed [facility] Influenza Virus Vaccine Quad IM, Preserv and ABX Free 6 MO-64 YRS 2022-04-08 00:00:00 Completed [facility] SARS-COV-2 COVID-19 VACCINE 12 YRS+, BIVALENT 0.5ML, IM, (MODERNA-BLUE TOP) 2022-04-08 00:00:00 Completed [facility] Influenza Virus Vaccine Quad IM, Preserv and ABX Free 6 MO-64 YRS 2022-04-08 00:00:00 Completed [facility] SARS-COV-2 COVID-19 VACCINE 12 YRS+, BIVALENT 0.5ML, IM, (MODERNA-BLUE TOP) 2022-04-08 00:00:00 Completed [facility] Influenza Virus Vaccine Quad IM, Preserv and ABX Free 6 MO-64 YRS 2022-04-08 00:00:00 Completed [facility] SARS-COV-2 COVID-19 VACCINE 12 YRS+, BIVALENT 0.5ML, IM, (MODERNA-BLUE TOP) 2022-04-08 00:00:00 Completed [facility] Influenza Virus Vaccine Quad IM, Preserv and ABX Free 6 MO-64 YRS 2022-04-08 00:00:00 Completed [facility] SARS-COV-2 COVID-19 VACCINE 12 YRS+, BIVALENT 0.5ML, IM, (MODERNA-BLUE TOP) 2022-04-08 00:00:00 Completed [facility] Influenza Virus Vaccine Quad IM, Preserv and ABX Free 6 MO-64 YRS 2022-04-08 00:00:00 Completed [facility] SARS-COV-2 COVID-19 VACCINE 12 YRS+, BIVALENT 0.5ML, IM, (MODERNA-BLUE TOP) 2022-04-08 00:00:00 Completed [facility] Influenza Virus Vaccine Quad IM, Preserv and ABX Free 6 MO-64 YRS 2022-04-08 00:00:00 Completed [facility] SARS-COV-2 COVID-19 VACCINE 12 YRS+, BIVALENT 0.5ML, IM, (MODERNA-BLUE TOP) 2022-04-08 00:00:00 Completed [facility] Influenza Virus Vaccine Quad IM, Preserv and ABX Free 6 MO-64 YRS 2022-04-08 00:00:00 Completed [facility] SARS-COV-2 COVID-19 VACCINE 12 YRS+, BIVALENT 0.5ML, IM, (MODERNA-BLUE TOP) 2022-04-08 00:00:00 Completed [facility] Influenza Virus Vaccine Quad IM, Preserv and ABX Free 6 MO-64 YRS 2022-04-08 00:00:00 Completed [facility] SARS-COV-2 COVID-19 VACCINE 12 YRS+, BIVALENT 0.5ML, IM, (MODERNA-BLUE TOP) 2022-04-08 00:00:00 Completed [facility] Influenza Virus Vaccine Quad IM, Preserv and ABX Free 6 MO-64 YRS 2022-04-08 00:00:00 Completed [facility] SARS-COV-2 COVID-19 VACCINE 12 YRS+, BIVALENT 0.5ML, IM, (MODERNA-BLUE TOP) 2022-04-08 00:00:00 Completed [facility] Influenza Virus Vaccine Quad IM, Preserv and ABX Free 6 MO-64 YRS 2022-04-08 00:00:00 Completed [facility] SARS-COV-2 COVID-19 VACCINE 12 YRS+, BIVALENT 0.5ML, IM, (MODERNA-BLUE TOP) 2022-04-08 00:00:00 Completed [facility] Influenza Virus Vaccine Quad IM, Preserv and ABX Free 6 MO-64 YRS 2022-04-08 00:00:00 Completed [facility] SARS-COV-2 COVID-19 VACCINE 12 YRS+, BIVALENT 0.5ML, IM, (MODERNA-BLUE TOP) 2022-04-08 00:00:00 Completed [facility] Influenza Virus Vaccine Quad IM, Preserv and ABX Free 6 MO-64 YRS 2022-04-08 00:00:00 Completed [facility] SARS-COV-2 COVID-19 VACCINE 12 YRS+, BIVALENT 0.5ML, IM, (MODERNA-BLUE TOP) 2022-04-08 00:00:00 Completed [facility] Influenza Virus Vaccine Quad IM, Preserv and ABX Free 6 MO-64 YRS 2022-04-08 00:00:00 Completed [facility] SARS-COV-2 COVID-19 VACCINE 12 YRS+, BIVALENT 0.5ML, IM, (MODERNA-BLUE TOP) 2022-04-08 00:00:00 Completed [facility] Influenza Virus Vaccine Quad IM, Preserv and ABX Free 6 MO-64 YRS 2022-04-08 00:00:00 Completed [facility] SARS-COV-2 COVID-19 VACCINE 12 YRS+, BIVALENT 0.5ML, IM, (MODERNA-BLUE TOP) 2022-04-08 00:00:00 Completed [facility] Influenza Virus Vaccine Quad IM, Preserv and ABX Free 6 MO-64 YRS (FLUCELVAX) 2022-04-08 00:00:00 Completed [facility] SARS-COV-2 COVID-19 VACCINE 12 YRS+, BIVALENT 0.5ML, IM, (MODERNA-BLUE TOP) 2022-04-08 00:00:00 Completed [facility] Influenza Virus Vaccine Quad IM, Preserv and ABX Free 6 MO-64 YRS (FLUCELVAX) 2022-04-08 00:00:00 Completed [facility] SARS-COV-2 COVID-19 VACCINE 12 YRS+, BIVALENT 0.5ML, IM, (MODERNA-BLUE TOP) 2022-04-08 00:00:00 Completed [facility] Influenza Virus Vaccine Quad IM, Preserv and ABX Free 6 MO-64 YRS (FLUCELVAX) 2022-04-08 00:00:00 Completed [facility] SARS-COV-2 COVID-19 VACCINE 12 YRS+, BIVALENT 0.5ML, IM, (MODERNA-BLUE TOP) 2022-04-08 00:00:00 Completed [facility] Influenza Virus Vaccine Quad IM, Preserv and ABX Free 6 MO-64 YRS (FLUCELVAX) 2022-04-08 00:00:00 Completed [facility] SARS-COV-2 COVID-19 VACCINE 12 YRS+, BIVALENT 0.5ML, IM, (MODERNA-BLUE TOP) 2022-04-08 00:00:00 Completed [facility] Influenza Virus Vaccine Quad IM, Preserv and ABX Free 6 MO-64 YRS (FLUCELVAX) 2022-04-08 00:00:00 Completed [facility] SARS-COV-2 COVID-19 VACCINE 12 YRS+, BIVALENT 0.5ML, IM, (MODERNA-BLUE TOP) 2022-04-08 00:00:00 Completed [facility] Influenza Virus Vaccine Quad IM, Preserv and ABX Free 6 MO-64 YRS (FLUCELVAX) 2022-04-08 00:00:00 Completed [facility] SARS-COV-2 COVID-19 VACCINE 12 YRS+, BIVALENT 0.5ML, IM, (MODERNA-BLUE TOP) 2022-04-08 00:00:00 Completed [facility] Influenza Virus Vaccine Quad IM, Preserv and ABX Free 6 MO-64 YRS (FLUCELVAX) 2022-04-08 00:00:00 Completed [facility] SARS-COV-2 COVID-19 VACCINE 12 YRS+, BIVALENT 0.5ML, IM, (MODERNA-BLUE TOP) 2022-04-08 00:00:00 Completed [facility] Influenza Virus Vaccine Quad IM, Preserv and ABX Free 6 MO-64 YRS (FLUCELVAX) 2022-04-08 00:00:00 Completed [facility] SARS-COV-2 COVID-19 VACCINE 12 YRS+, BIVALENT 0.5ML, IM, (MODERNA-BLUE TOP) 2022-04-08 00:00:00 Completed [facility] Pneumococcal 20 Conjugate, PCV20 (Prevnar 20) 2021-11-24 00:00:00 Completed [facility] Pneumococcal 20 Conjugate, PCV20 (Prevnar 20) 2021-11-24 00:00:00 Completed [facility] Pneumococcal 20 Conjugate, PCV20 (Prevnar 20) 2021-11-24 00:00:00 Completed [facility] Pneumococcal 20 Conjugate, PCV20 (Prevnar 20) 2021-11-24 00:00:00 Completed [facility] Pneumococcal 20 Conjugate, PCV20 (Prevnar 20) 2021-11-24 00:00:00 Completed [facility] Pneumococcal 20 Conjugate, PCV20 (Prevnar 20) 2021-11-24 00:00:00 Completed [facility] Pneumococcal 20 Conjugate, PCV20 (Prevnar 20) 2021-11-24 00:00:00 Completed [facility] Pneumococcal 20 Conjugate, PCV20 (Prevnar 20) 2021-11-24 00:00:00 Completed [facility] Pneumococcal 20 Conjugate, PCV20 (Prevnar 20) 2021-11-24 00:00:00 Completed [facility] Pneumococcal 20 Conjugate, PCV20 (Prevnar 20) 2021-11-24 00:00:00 Completed [facility] Pneumococcal 20 Conjugate, PCV20 (Prevnar 20) 2021-11-24 00:00:00 Completed [facility] Pneumococcal 20 Conjugate, PCV20 (Prevnar 20) 2021-11-24 00:00:00 Completed [facility] Pneumococcal 20 Conjugate, PCV20 (Prevnar 20) 2021-11-24 00:00:00 Completed [facility] Pneumococcal 20 Conjugate, PCV20 (Prevnar 20) 2021-11-24 00:00:00 Completed [facility] Pneumococcal 20 Conjugate, PCV20 (Prevnar 20) 2021-11-24 00:00:00 Completed [facility] Pneumococcal 20 Conjugate, PCV20 (Prevnar 20) 2021-11-24 00:00:00 Completed [facility] Pneumococcal 20 Conjugate, PCV20 (Prevnar 20) 2021-11-24 00:00:00 Completed [facility] Pneumococcal 20 Conjugate, PCV20 (Prevnar 20) 2021-11-24 00:00:00 Completed [facility] Pneumococcal 20 Conjugate, PCV20 (Prevnar 20) 2021-11-24 00:00:00 Completed [facility] Pneumococcal 20 Conjugate, PCV20 (Prevnar 20) 2021-11-24 00:00:00 Completed [facility] Pneumococcal 20 Conjugate, PCV20 (Prevnar 20) 2021-11-24 00:00:00 Completed [facility] Pneumococcal 20 Conjugate, PCV20 (Prevnar 20) 2021-11-24 00:00:00 Completed [facility] Pneumococcal 20 Conjugate, PCV20 (Prevnar 20) 2021-11-24 00:00:00 Completed [facility] Pneumococcal 20 Conjugate, PCV20 (Prevnar 20) 2021-11-24 00:00:00 Completed [facility] Pneumococcal 20 Conjugate, PCV20 (Prevnar 20) 2021-11-24 00:00:00 Completed [facility] Pneumococcal 20 Conjugate, PCV20 (Prevnar 20) 2021-11-24 00:00:00 Completed [facility] Pneumococcal 20 Conjugate, PCV20 (Prevnar 20) 2021-11-24 00:00:00 Completed [facility] Pneumococcal 20 Conjugate, PCV20 (Prevnar 20) 2021-11-24 00:00:00 Completed [facility] Pneumococcal 20 Conjugate, PCV20 (Prevnar 20) 2021-11-24 00:00:00 Completed [facility] Pneumococcal 20 Conjugate, PCV20 (Prevnar 20) 2021-11-24 00:00:00 Completed [facility] Pneumococcal 20 Conjugate, PCV20 (Prevnar 20) 2021-11-24 00:00:00 Completed [facility] Pneumococcal 20 Conjugate, PCV20 (Prevnar 20) 2021-11-24 00:00:00 Completed [facility] Pneumococcal 20 Conjugate, PCV20 (Prevnar 20) 2021-11-24 00:00:00 Completed [facility] Pneumococcal 20 Conjugate, PCV20 (Prevnar 20) 2021-11-24 00:00:00 Completed [facility] Pneumococcal 20 Conjugate, PCV20 (Prevnar 20) 2021-11-24 00:00:00 Completed [facility] Pneumococcal 20 Conjugate, PCV20 (Prevnar 20) 2021-11-24 00:00:00 Completed [facility] Pneumococcal 20 Conjugate, PCV20 (Prevnar 20) 2021-11-24 00:00:00 Completed [facility] Pneumococcal 20 Conjugate, PCV20 (Prevnar 20) 2021-11-24 00:00:00 Completed [facility] Pneumococcal 20 Conjugate, PCV20 (Prevnar 20) 2021-11-24 00:00:00 Completed [facility] Pneumococcal 20 Conjugate, PCV20 (Prevnar 20) 2021-11-24 00:00:00 Completed [facility] Pneumococcal 20 Conjugate, PCV20 (Prevnar 20) 2021-11-24 00:00:00 Completed [facility] Pneumococcal 20 Conjugate, PCV20 (Prevnar 20) 2021-11-24 00:00:00 Completed [facility] Pneumococcal 20 Conjugate, PCV20 (Prevnar 20) 2021-11-24 00:00:00 Completed [facility] Pneumococcal 20 Conjugate, PCV20 (Prevnar 20) 2021-11-24 00:00:00 Completed [facility] Pneumococcal 20 Conjugate, PCV20 (Prevnar 20) 2021-11-24 00:00:00 Completed [facility] Pneumococcal 20 Conjugate, PCV20 (Prevnar 20) 2021-11-24 00:00:00 Completed [facility] Pneumococcal 20 Conjugate, PCV20 (Prevnar 20) 2021-11-24 00:00:00 Completed [facility] Pneumococcal 20 Conjugate, PCV20 (Prevnar 20) 2021-11-24 00:00:00 Completed [facility] Pneumococcal 20 Conjugate, PCV20 (Prevnar 20) 2021-11-24 00:00:00 Completed [facility] Pneumococcal 20 Conjugate, PCV20 (Prevnar 20) 2021-11-24 00:00:00 Completed [facility] Pneumococcal 20 Conjugate, PCV20 (Prevnar 20) 2021-11-24 00:00:00 Completed [facility] Pneumococcal 20 Conjugate, PCV20 (Prevnar 20) 2021-11-24 00:00:00 Completed [facility] Pneumococcal 20 Conjugate, PCV20 (Prevnar 20) 2021-11-24 00:00:00 Completed [facility] Pneumococcal 20 Conjugate, PCV20 (Prevnar 20) 2021-11-24 00:00:00 Completed [facility] Pneumococcal 20 Conjugate, PCV20 (Prevnar 20) 2021-11-24 00:00:00 Completed [facility] Pneumococcal 20 Conjugate, PCV20 (Prevnar 20) 2021-11-24 00:00:00 Completed [facility] Pneumococcal 20 Conjugate, PCV20 (Prevnar 20) 2021-11-24 00:00:00 Completed [facility] Pneumococcal 20 Conjugate, PCV20 (Prevnar 20) 2021-11-24 00:00:00 Completed [facility] Pneumococcal 20 Conjugate, PCV20 (Prevnar 20) 2021-11-24 00:00:00 Completed [facility] Pneumococcal 20 Conjugate, PCV20 (Prevnar 20) 2021-11-24 00:00:00 Completed [facility] Pneumococcal 20 Conjugate, PCV20 (Prevnar 20) 2021-11-24 00:00:00 Completed [facility] Pneumococcal 20 Conjugate, PCV20 (Prevnar 20) 2021-11-24 00:00:00 Completed [facility] Pneumococcal 20 Conjugate, PCV20 (Prevnar 20) 2021-11-24 00:00:00 Completed [facility] Pneumococcal 20 Conjugate, PCV20 (Prevnar 20) 2021-11-24 00:00:00 Completed [facility] Pneumococcal 20 Conjugate, PCV20 (Prevnar 20) 2021-11-24 00:00:00 Completed [facility] Pneumococcal 20 Conjugate, PCV20 (Prevnar 20) 2021-11-24 00:00:00 Completed [facility] Pneumococcal 20 Conjugate, PCV20 (Prevnar 20) 2021-11-24 00:00:00 Completed [facility] Pneumococcal 20 Conjugate, PCV20 (Prevnar 20) 2021-11-24 00:00:00 Completed [facility] Pneumococcal 20 Conjugate, PCV20 (Prevnar 20) 2021-11-24 00:00:00 Completed [facility] Pneumococcal 20 Conjugate, PCV20 (Prevnar 20) 2021-11-24 00:00:00 Completed [facility] Pneumococcal 20 Conjugate, PCV20 (Prevnar 20) 2021-11-24 00:00:00 Completed [facility] Pneumococcal 20 Conjugate, PCV20 (Prevnar 20) 2021-11-24 00:00:00 Completed [facility] Pneumococcal 20 Conjugate, PCV20 (Prevnar 20) 2021-11-24 00:00:00 Completed [facility] Pneumococcal 20 Conjugate, PCV20 (Prevnar 20) 2021-11-24 00:00:00 Completed [facility] Pneumococcal 20 Conjugate, PCV20 (Prevnar 20) 2021-11-24 00:00:00 Completed [facility] SARS-COV-2 COVID-19 MODERNA 12+ YRS VACCINE 2021-05-11 00:00:00 Completed [facility] SARS-COV-2 COVID-19 MODERNA 12+ YRS VACCINE 2021-05-11 00:00:00 Completed [facility] SARS-COV-2 COVID-19 MODERNA 12+ YRS VACCINE 2021-05-11 00:00:00 Completed [facility] SARS-COV-2 COVID-19 MODERNA 12+ YRS VACCINE 2021-05-11 00:00:00 Completed [facility] SARS-COV-2 COVID-19 MODERNA 12+ YRS VACCINE 2021-05-11 00:00:00 Completed [facility] SARS-COV-2 COVID-19 MODERNA 12+ YRS VACCINE 2021-05-11 00:00:00 Completed [facility] SARS-COV-2 COVID-19 MODERNA 12+ YRS VACCINE 2021-05-11 00:00:00 Completed [facility] SARS-COV-2 COVID-19 MODERNA 12+ YRS VACCINE 2021-05-11 00:00:00 Completed [facility] SARS-COV-2 COVID-19 MODERNA 12+ YRS VACCINE 2021-05-11 00:00:00 Completed [facility] SARS-COV-2 COVID-19 MODERNA 12+ YRS VACCINE 2021-05-11 00:00:00 Completed [facility] SARS-COV-2 COVID-19 MODERNA 12+ YRS VACCINE 2021-05-11 00:00:00 Completed [facility] SARS-COV-2 COVID-19 MODERNA 12+ YRS VACCINE 2021-05-11 00:00:00 Completed [facility] SARS-COV-2 COVID-19 MODERNA 12+ YRS VACCINE 2021-05-11 00:00:00 Completed [facility] SARS-COV-2 COVID-19 MODERNA 12+ YRS VACCINE 2021-05-11 00:00:00 Completed [facility] SARS-COV-2 COVID-19 MODERNA 12+ YRS VACCINE 2021-05-11 00:00:00 Completed [facility] SARS-COV-2 COVID-19 MODERNA 12+ YRS VACCINE 2021-05-11 00:00:00 Completed [facility] SARS-COV-2 COVID-19 MODERNA 12+ YRS VACCINE 2021-05-11 00:00:00 Completed [facility] SARS-COV-2 COVID-19 MODERNA 12+ YRS VACCINE 2021-05-11 00:00:00 Completed [facility] SARS-COV-2 COVID-19 MODERNA 12+ YRS VACCINE 2021-05-11 00:00:00 Completed [facility] SARS-COV-2 COVID-19 MODERNA 12+ YRS VACCINE 2021-05-11 00:00:00 Completed [facility] SARS-COV-2 COVID-19 MODERNA 12+ YRS VACCINE 2021-05-11 00:00:00 Completed [facility] SARS-COV-2 COVID-19 MODERNA 12+ YRS VACCINE 2021-05-11 00:00:00 Completed [facility] SARS-COV-2 COVID-19 MODERNA 12+ YRS VACCINE 2021-05-11 00:00:00 Completed [facility] SARS-COV-2 COVID-19 MODERNA 12+ YRS VACCINE 2021-05-11 00:00:00 Completed [facility] SARS-COV-2 COVID-19 MODERNA 12+ YRS VACCINE 2021-05-11 00:00:00 Completed [facility] SARS-COV-2 COVID-19 MODERNA 12+ YRS VACCINE 2021-05-11 00:00:00 Completed [facility] SARS-COV-2 COVID-19 MODERNA 12+ YRS VACCINE 2021-05-11 00:00:00 Completed [facility] SARS-COV-2 COVID-19 MODERNA 12+ YRS VACCINE 2021-05-11 00:00:00 Completed [facility] SARS-COV-2 COVID-19 MODERNA 12+ YRS VACCINE 2021-05-11 00:00:00 Completed [facility] SARS-COV-2 COVID-19 MODERNA 12+ YRS VACCINE 2021-05-11 00:00:00 Completed [facility] SARS-COV-2 COVID-19 MODERNA 12+ YRS VACCINE 2021-05-11 00:00:00 Completed [facility] SARS-COV-2 COVID-19 MODERNA 12+ YRS VACCINE 2021-05-11 00:00:00 Completed [facility] SARS-COV-2 COVID-19 MODERNA 12+ YRS VACCINE 2021-05-11 00:00:00 Completed [facility] SARS-COV-2 COVID-19 MODERNA 12+ YRS VACCINE 2021-05-11 00:00:00 Completed [facility] SARS-COV-2 COVID-19 MODERNA 12+ YRS VACCINE 2021-05-11 00:00:00 Completed [facility] SARS-COV-2 COVID-19 MODERNA 12+ YRS VACCINE 2021-05-11 00:00:00 Completed [facility] SARS-COV-2 COVID-19 MODERNA 12+ YRS VACCINE 2021-05-11 00:00:00 Completed [facility] SARS-COV-2 COVID-19 MODERNA 12+ YRS VACCINE 2021-05-11 00:00:00 Completed [facility] SARS-COV-2 COVID-19 MODERNA 12+ YRS VACCINE 2021-05-11 00:00:00 Completed [facility] SARS-COV-2 COVID-19 MODERNA 12+ YRS VACCINE 2021-05-11 00:00:00 Completed [facility] SARS-COV-2 COVID-19 MODERNA 12+ YRS VACCINE 2021-05-11 00:00:00 Completed [facility] SARS-COV-2 COVID-19 MODERNA 12+ YRS VACCINE 2021-05-11 00:00:00 Completed [facility] SARS-COV-2 COVID-19 MODERNA 12+ YRS VACCINE 2021-05-11 00:00:00 Completed [facility] SARS-COV-2 COVID-19 MODERNA 12+ YRS VACCINE 2021-05-11 00:00:00 Completed [facility] SARS-COV-2 COVID-19 MODERNA 12+ YRS VACCINE 2021-05-11 00:00:00 Completed [facility] SARS-COV-2 COVID-19 MODERNA 12+ YRS VACCINE 2021-05-11 00:00:00 Completed [facility] SARS-COV-2 COVID-19 MODERNA 12+ YRS VACCINE 2021-05-11 00:00:00 Completed [facility] SARS-COV-2 COVID-19 MODERNA 12+ YRS VACCINE 2021-05-11 00:00:00 Completed [facility] SARS-COV-2 COVID-19 MODERNA 12+ YRS VACCINE 2021-05-11 00:00:00 Completed [facility] SARS-COV-2 COVID-19 MODERNA 12+ YRS VACCINE 2021-05-11 00:00:00 Completed [facility] SARS-COV-2 COVID-19 MODERNA 12+ YRS VACCINE 2021-05-11 00:00:00 Completed [facility] SARS-COV-2 COVID-19 MODERNA 12+ YRS VACCINE 2021-05-11 00:00:00 Completed [facility] SARS-COV-2 COVID-19 MODERNA 12+ YRS VACCINE 2021-05-11 00:00:00 Completed [facility] SARS-COV-2 COVID-19 MODERNA 12+ YRS VACCINE 2021-05-11 00:00:00 Completed [facility] SARS-COV-2 COVID-19 MODERNA 12+ YRS VACCINE 2021-05-11 00:00:00 Completed [facility] SARS-COV-2 COVID-19 MODERNA 12+ YRS VACCINE 2021-05-11 00:00:00 Completed [facility] SARS-COV-2 COVID-19 MODERNA 12+ YRS VACCINE 2021-05-11 00:00:00 Completed [facility] SARS-COV-2 COVID-19 MODERNA 12+ YRS VACCINE 2021-05-11 00:00:00 Completed [facility] SARS-COV-2 COVID-19 MODERNA 12+ YRS VACCINE 2021-05-11 00:00:00 Completed [facility] SARS-COV-2 COVID-19 MODERNA 12+ YRS VACCINE 2021-05-11 00:00:00 Completed [facility] SARS-COV-2 COVID-19 MODERNA 12+ YRS VACCINE 2021-05-11 00:00:00 Completed [facility] SARS-COV-2 COVID-19 MODERNA 12+ YRS VACCINE 2021-05-11 00:00:00 Completed [facility] SARS-COV-2 COVID-19 MODERNA 12+ YRS VACCINE 2021-05-11 00:00:00 Completed [facility] SARS-COV-2 COVID-19 MODERNA 12+ YRS VACCINE 2021-05-11 00:00:00 Completed [facility] SARS-COV-2 COVID-19 MODERNA 12+ YRS VACCINE 2021-05-11 00:00:00 Completed [facility] SARS-COV-2 COVID-19 MODERNA 12+ YRS VACCINE 2021-05-11 00:00:00 Completed [facility] SARS-COV-2 COVID-19 MODERNA 12+ YRS VACCINE 2021-05-11 00:00:00 Completed [facility] SARS-COV-2 COVID-19 MODERNA 12+ YRS VACCINE 2021-05-11 00:00:00 Completed [facility] SARS-COV-2 COVID-19 MODERNA 12+ YRS VACCINE 2021-05-11 00:00:00 Completed [facility] SARS-COV-2 COVID-19 MODERNA 12+ YRS VACCINE 2021-05-11 00:00:00 Completed [facility] SARS-COV-2 COVID-19 MODERNA 12+ YRS VACCINE 2021-05-11 00:00:00 Completed [facility] SARS-COV-2 COVID-19 MODERNA 12+ YRS VACCINE 2021-05-11 00:00:00 Completed [facility] SARS-COV-2 COVID-19 MODERNA 12+ YRS VACCINE 2021-05-11 00:00:00 Completed [facility] SARS-COV-2 COVID-19 MODERNA 12+ YRS VACCINE 2021-05-11 00:00:00 Completed [facility] SARS-COV-2 COVID-19 MODERNA 12+ YRS VACCINE 2021-05-11 00:00:00 Completed [facility] Influenza Virus Vaccine - Whole 2021-04-29 00:00:00 Completed [facility] Influenza Virus Vaccine - Whole 2021-04-29 00:00:00 Completed [facility] Influenza Virus Vaccine - Whole 2021-04-29 00:00:00 Completed [facility] Influenza Virus Vaccine - Whole 2021-04-29 00:00:00 Completed [facility] Influenza Virus Vaccine - Whole 2021-04-29 00:00:00 Completed [facility] Influenza Virus Vaccine - Whole 2021-04-29 00:00:00 Completed [facility] Influenza Virus Vaccine - Whole 2021-04-29 00:00:00 Completed [facility] Influenza Virus Vaccine - Whole 2021-04-29 00:00:00 Completed [facility] Influenza Virus Vaccine - Whole 2021-04-29 00:00:00 Completed [facility] Influenza Virus Vaccine - Whole 2021-04-29 00:00:00 Completed [facility] Influenza Virus Vaccine - Whole 2021-04-29 00:00:00 Completed [facility] Influenza Virus Vaccine - Whole 2021-04-29 00:00:00 Completed [facility] Influenza Virus Vaccine - Whole 2021-04-29 00:00:00 Completed [facility] Influenza Virus Vaccine - Whole 2021-04-29 00:00:00 Completed [facility] Influenza Virus Vaccine - Whole 2021-04-29 00:00:00 Completed [facility] Influenza Virus Vaccine - Whole 2021-04-29 00:00:00 Completed [facility] Influenza Virus Vaccine - Whole 2021-04-29 00:00:00 Completed [facility] Influenza Virus Vaccine - Whole 2021-04-29 00:00:00 Completed [facility] Influenza Virus Vaccine - Whole 2021-04-29 00:00:00 Completed [facility] Influenza Virus Vaccine - Whole 2021-04-29 00:00:00 Completed [facility] Influenza Virus Vaccine - Whole 2021-04-29 00:00:00 Completed [facility] Influenza Virus Vaccine - Whole 2021-04-29 00:00:00 Completed [facility] Influenza Virus Vaccine - Whole 2021-04-29 00:00:00 Completed [facility] Influenza Virus Vaccine - Whole 2021-04-29 00:00:00 Completed [facility] Influenza Virus Vaccine 2021-04-22 00:00:00 Completed [facility] Influenza Virus Vaccine 2021-04-22 00:00:00 Completed [facility] Influenza Virus Vaccine 2021-04-22 00:00:00 Completed [facility] Influenza Virus Vaccine 2021-04-22 00:00:00 Completed [facility] Influenza Virus Vaccine 2021-04-22 00:00:00 Completed [facility] Influenza Virus Vaccine 2021-04-22 00:00:00 Completed [facility] Influenza Virus Vaccine 2021-04-22 00:00:00 Completed [facility] Influenza Virus Vaccine 2021-04-22 00:00:00 Completed [facility] Influenza Virus Vaccine 2021-04-22 00:00:00 Completed [facility] Influenza Virus Vaccine 2021-04-22 00:00:00 Completed [facility] Influenza Virus Vaccine 2021-04-22 00:00:00 Completed [facility] Influenza Virus Vaccine 2021-04-22 00:00:00 Completed [facility] Influenza Virus Vaccine 2021-04-22 00:00:00 Completed [facility] Influenza Virus Vaccine 2021-04-22 00:00:00 Completed [facility] Influenza Virus Vaccine 2021-04-22 00:00:00 Completed [facility] Influenza Virus Vaccine 2021-04-22 00:00:00 Completed [facility] Influenza Virus Vaccine 2021-04-22 00:00:00 Completed [facility] Influenza Virus Vaccine 2021-04-22 00:00:00 Completed [facility] Influenza Virus Vaccine 2021-04-22 00:00:00 Completed [facility] Influenza Virus Vaccine 2021-04-22 00:00:00 Completed [facility] Influenza Virus Vaccine 2021-04-22 00:00:00 Completed [facility] Influenza Virus Vaccine 2021-04-22 00:00:00 Completed [facility] Influenza Virus Vaccine 2021-04-22 00:00:00 Completed [facility] Influenza Virus Vaccine 2021-04-22 00:00:00 Completed [facility] Influenza Virus Vaccine 2021-04-22 00:00:00 Completed [facility] Influenza Virus Vaccine 2021-04-22 00:00:00 Completed [facility] Influenza Virus Vaccine 2021-04-22 00:00:00 Completed [facility] Influenza Virus Vaccine 2021-04-22 00:00:00 Completed [facility] Influenza Virus Vaccine 2021-04-22 00:00:00 Completed [facility] Influenza Virus Vaccine 2021-04-22 00:00:00 Completed [facility] Influenza Virus Vaccine 2021-04-22 00:00:00 Completed [facility] Influenza Virus Vaccine 2021-04-22 00:00:00 Completed [facility] Influenza Virus Vaccine 2021-04-22 00:00:00 Completed [facility] Influenza Virus Vaccine 2021-04-22 00:00:00 Completed [facility] Influenza Virus Vaccine 2021-04-22 00:00:00 Completed [facility] Influenza Virus Vaccine 2021-04-22 00:00:00 Completed [facility] Influenza Virus Vaccine 2021-04-22 00:00:00 Completed [facility] Influenza Virus Vaccine 2021-04-22 00:00:00 Completed [facility] Influenza Virus Vaccine 2021-04-22 00:00:00 Completed [facility] Influenza Virus Vaccine 2021-04-22 00:00:00 Completed [facility] Influenza Virus Vaccine 2021-04-22 00:00:00 Completed [facility] Influenza Virus Vaccine 2021-04-22 00:00:00 Completed [facility] Influenza Virus Vaccine 2021-04-22 00:00:00 Completed [facility] Influenza Virus Vaccine 2021-04-22 00:00:00 Completed [facility] Influenza Virus Vaccine 2021-04-22 00:00:00 Completed [facility] Influenza Virus Vaccine 2021-04-22 00:00:00 Completed [facility] Influenza Virus Vaccine 2021-04-22 00:00:00 Completed [facility] Influenza Virus Vaccine 2021-04-22 00:00:00 Completed [facility] Influenza Virus Vaccine 2021-04-22 00:00:00 Completed [facility] Influenza Virus Vaccine 2021-04-22 00:00:00 Completed [facility] Influenza Virus Vaccine 2021-04-22 00:00:00 Completed [facility] Influenza Virus Vaccine 2021-04-22 00:00:00 Completed [facility] Influenza Virus Vaccine 2021-04-22 00:00:00 Completed [facility] Influenza Virus Vaccine 2021-04-22 00:00:00 Completed [facility] Influenza Virus Vaccine 2021-04-22 00:00:00 Completed [facility] Influenza Virus Vaccine 2021-04-22 00:00:00 Completed [facility] Influenza Virus Vaccine 2021-04-22 00:00:00 Completed [facility] Influenza Virus Vaccine 2021-04-22 00:00:00 Completed [facility] Influenza Virus Vaccine 2021-04-22 00:00:00 Completed [facility] Influenza Virus Vaccine 2021-04-22 00:00:00 Completed [facility] Influenza Virus Vaccine 2021-04-22 00:00:00 Completed [facility] Influenza Virus Vaccine 2021-04-22 00:00:00 Completed [facility] Influenza Virus Vaccine 2021-04-22 00:00:00 Completed [facility] Influenza Virus Vaccine 2021-04-22 00:00:00 Completed [facility] Influenza Virus Vaccine 2021-04-22 00:00:00 Completed [facility] Influenza Virus Vaccine 2021-04-22 00:00:00 Completed [facility] Influenza Virus Vaccine 2021-04-22 00:00:00 Completed [facility] Influenza Virus Vaccine 2021-04-22 00:00:00 Completed [facility] Influenza Virus Vaccine 2021-04-22 00:00:00 Completed [facility] Influenza Virus Vaccine 2021-04-22 00:00:00 Completed [facility] Influenza Virus Vaccine 2021-04-22 00:00:00 Completed [facility] Influenza Virus Vaccine 2021-04-22 00:00:00 Completed [facility] Influenza Virus Vaccine 2021-04-22 00:00:00 Completed [facility] Influenza Virus Vaccine 2021-04-22 00:00:00 Completed [facility] Influenza Virus Vaccine 2021-04-22 00:00:00 Completed [facility] SARS-COV-2 COVID-19 MODERNA 12+ YRS VACCINE 2020-11-05 00:00:00 Completed [facility] SARS-COV-2 COVID-19 MODERNA 12+ YRS VACCINE 2020-11-05 00:00:00 Completed [facility] SARS-COV-2 COVID-19 MODERNA 12+ YRS VACCINE 2020-11-05 00:00:00 Completed [facility] SARS-COV-2 COVID-19 MODERNA 12+ YRS VACCINE 2020-11-05 00:00:00 Completed [facility] SARS-COV-2 COVID-19 MODERNA 12+ YRS VACCINE 2020-11-05 00:00:00 Completed [facility] SARS-COV-2 COVID-19 MODERNA 12+ YRS VACCINE 2020-11-05 00:00:00 Completed [facility] SARS-COV-2 COVID-19 MODERNA 12+ YRS VACCINE 2020-11-05 00:00:00 Completed [facility] SARS-COV-2 COVID-19 MODERNA 12+ YRS VACCINE 2020-11-05 00:00:00 Completed [facility] SARS-COV-2 COVID-19 MODERNA 12+ YRS VACCINE 2020-11-05 00:00:00 Completed [facility] SARS-COV-2 COVID-19 MODERNA 12+ YRS VACCINE 2020-11-05 00:00:00 Completed [facility] SARS-COV-2 COVID-19 MODERNA 12+ YRS VACCINE 2020-11-05 00:00:00 Completed [facility] SARS-COV-2 COVID-19 MODERNA 12+ YRS VACCINE 2020-11-05 00:00:00 Completed [facility] SARS-COV-2 COVID-19 MODERNA 12+ YRS VACCINE 2020-11-05 00:00:00 Completed [facility] SARS-COV-2 COVID-19 MODERNA 12+ YRS VACCINE 2020-11-05 00:00:00 Completed [facility] SARS-COV-2 COVID-19 MODERNA 12+ YRS VACCINE 2020-11-05 00:00:00 Completed [facility] SARS-COV-2 COVID-19 MODERNA 12+ YRS VACCINE 2020-11-05 00:00:00 Completed [facility] SARS-COV-2 COVID-19 MODERNA 12+ YRS VACCINE 2020-11-05 00:00:00 Completed [facility] SARS-COV-2 COVID-19 MODERNA 12+ YRS VACCINE 2020-11-05 00:00:00 Completed [facility] SARS-COV-2 COVID-19 MODERNA 12+ YRS VACCINE 2020-11-05 00:00:00 Completed [facility] SARS-COV-2 COVID-19 MODERNA 12+ YRS VACCINE 2020-11-05 00:00:00 Completed [facility] SARS-COV-2 COVID-19 MODERNA 12+ YRS VACCINE 2020-11-05 00:00:00 Completed [facility] SARS-COV-2 COVID-19 MODERNA 12+ YRS VACCINE 2020-11-05 00:00:00 Completed [facility] SARS-COV-2 COVID-19 MODERNA 12+ YRS VACCINE 2020-11-05 00:00:00 Completed [facility] SARS-COV-2 COVID-19 MODERNA 12+ YRS VACCINE 2020-11-05 00:00:00 Completed [facility] SARS-COV-2 COVID-19 MODERNA 12+ YRS VACCINE 2020-11-05 00:00:00 Completed [facility] SARS-COV-2 COVID-19 MODERNA 12+ YRS VACCINE 2020-11-05 00:00:00 Completed [facility] SARS-COV-2 COVID-19 MODERNA 12+ YRS VACCINE 2020-11-05 00:00:00 Completed [facility] SARS-COV-2 COVID-19 MODERNA 12+ YRS VACCINE 2020-11-05 00:00:00 Completed [facility] SARS-COV-2 COVID-19 MODERNA 12+ YRS VACCINE 2020-11-05 00:00:00 Completed [facility] SARS-COV-2 COVID-19 MODERNA 12+ YRS VACCINE 2020-11-05 00:00:00 Completed [facility] SARS-COV-2 COVID-19 MODERNA 12+ YRS VACCINE 2020-11-05 00:00:00 Completed [facility] SARS-COV-2 COVID-19 MODERNA 12+ YRS VACCINE 2020-11-05 00:00:00 Completed [facility] SARS-COV-2 COVID-19 MODERNA 12+ YRS VACCINE 2020-11-05 00:00:00 Completed [facility] SARS-COV-2 COVID-19 MODERNA 12+ YRS VACCINE 2020-11-05 00:00:00 Completed [facility] SARS-COV-2 COVID-19 MODERNA 12+ YRS VACCINE 2020-11-05 00:00:00 Completed [facility] SARS-COV-2 COVID-19 MODERNA 12+ YRS VACCINE 2020-11-05 00:00:00 Completed [facility] SARS-COV-2 COVID-19 MODERNA 12+ YRS VACCINE 2020-11-05 00:00:00 Completed [facility] SARS-COV-2 COVID-19 MODERNA 12+ YRS VACCINE 2020-11-05 00:00:00 Completed [facility] SARS-COV-2 COVID-19 MODERNA 12+ YRS VACCINE 2020-11-05 00:00:00 Completed [facility] SARS-COV-2 COVID-19 MODERNA 12+ YRS VACCINE 2020-11-05 00:00:00 Completed [facility] SARS-COV-2 COVID-19 MODERNA 12+ YRS VACCINE 2020-11-05 00:00:00 Completed [facility] SARS-COV-2 COVID-19 MODERNA 12+ YRS VACCINE 2020-11-05 00:00:00 Completed [facility] SARS-COV-2 COVID-19 MODERNA 12+ YRS VACCINE 2020-11-05 00:00:00 Completed [facility] SARS-COV-2 COVID-19 MODERNA 12+ YRS VACCINE 2020-11-05 00:00:00 Completed [facility] SARS-COV-2 COVID-19 MODERNA 12+ YRS VACCINE 2020-11-05 00:00:00 Completed [facility] SARS-COV-2 COVID-19 MODERNA 12+ YRS VACCINE 2020-11-05 00:00:00 Completed [facility] SARS-COV-2 COVID-19 MODERNA 12+ YRS VACCINE 2020-11-05 00:00:00 Completed [facility] SARS-COV-2 COVID-19 MODERNA 12+ YRS VACCINE 2020-11-05 00:00:00 Completed [facility] SARS-COV-2 COVID-19 MODERNA 12+ YRS VACCINE 2020-11-05 00:00:00 Completed [facility] SARS-COV-2 COVID-19 MODERNA 12+ YRS VACCINE 2020-11-05 00:00:00 Completed [facility] SARS-COV-2 COVID-19 MODERNA 12+ YRS VACCINE 2020-11-05 00:00:00 Completed [facility] SARS-COV-2 COVID-19 MODERNA 12+ YRS VACCINE 2020-11-05 00:00:00 Completed [facility] SARS-COV-2 COVID-19 MODERNA 12+ YRS VACCINE 2020-11-05 00:00:00 Completed [facility] SARS-COV-2 COVID-19 MODERNA 12+ YRS VACCINE 2020-11-05 00:00:00 Completed [facility] SARS-COV-2 COVID-19 MODERNA 12+ YRS VACCINE 2020-11-05 00:00:00 Completed [facility] SARS-COV-2 COVID-19 MODERNA 12+ YRS VACCINE 2020-11-05 00:00:00 Completed [facility] SARS-COV-2 COVID-19 MODERNA 12+ YRS VACCINE 2020-11-05 00:00:00 Completed [facility] SARS-COV-2 COVID-19 MODERNA 12+ YRS VACCINE 2020-11-05 00:00:00 Completed [facility] SARS-COV-2 COVID-19 MODERNA 12+ YRS VACCINE 2020-11-05 00:00:00 Completed [facility] SARS-COV-2 COVID-19 MODERNA 12+ YRS VACCINE 2020-11-05 00:00:00 Completed [facility] SARS-COV-2 COVID-19 MODERNA 12+ YRS VACCINE 2020-11-05 00:00:00 Completed [facility] SARS-COV-2 COVID-19 MODERNA 12+ YRS VACCINE 2020-11-05 00:00:00 Completed [facility] SARS-COV-2 COVID-19 MODERNA 12+ YRS VACCINE 2020-11-05 00:00:00 Completed [facility] SARS-COV-2 COVID-19 MODERNA 12+ YRS VACCINE 2020-11-05 00:00:00 Completed [facility] SARS-COV-2 COVID-19 MODERNA 12+ YRS VACCINE 2020-11-05 00:00:00 Completed [facility] SARS-COV-2 COVID-19 MODERNA 12+ YRS VACCINE 2020-11-05 00:00:00 Completed [facility] SARS-COV-2 COVID-19 MODERNA 12+ YRS VACCINE 2020-11-05 00:00:00 Completed [facility] SARS-COV-2 COVID-19 MODERNA 12+ YRS VACCINE 2020-11-05 00:00:00 Completed [facility] SARS-COV-2 COVID-19 MODERNA 12+ YRS VACCINE 2020-11-05 00:00:00 Completed [facility] SARS-COV-2 COVID-19 MODERNA 12+ YRS VACCINE 2020-11-05 00:00:00 Completed [facility] SARS-COV-2 COVID-19 MODERNA 12+ YRS VACCINE 2020-11-05 00:00:00 Completed [facility] SARS-COV-2 COVID-19 MODERNA 12+ YRS VACCINE 2020-11-05 00:00:00 Completed [facility] SARS-COV-2 COVID-19 MODERNA 12+ YRS VACCINE 2020-11-05 00:00:00 Completed [facility] SARS-COV-2 COVID-19 MODERNA 12+ YRS VACCINE 2020-11-05 00:00:00 Completed [facility] SARS-COV-2 COVID-19 MODERNA 12+ YRS VACCINE 2020-11-05 00:00:00 Completed [facility] SARS-COV-2 COVID-19 MODERNA 12+ YRS VACCINE 2020-10-08 00:00:00 Completed [facility] SARS-COV-2 COVID-19 MODERNA 12+ YRS VACCINE 2020-10-08 00:00:00 Completed [facility] SARS-COV-2 COVID-19 MODERNA 12+ YRS VACCINE 2020-10-08 00:00:00 Completed [facility] SARS-COV-2 COVID-19 MODERNA 12+ YRS VACCINE 2020-10-08 00:00:00 Completed [facility] SARS-COV-2 COVID-19 MODERNA 12+ YRS VACCINE 2020-10-08 00:00:00 Completed [facility] SARS-COV-2 COVID-19 MODERNA 12+ YRS VACCINE 2020-10-08 00:00:00 Completed [facility] SARS-COV-2 COVID-19 MODERNA 12+ YRS VACCINE 2020-10-08 00:00:00 Completed [facility] SARS-COV-2 COVID-19 MODERNA 12+ YRS VACCINE 2020-10-08 00:00:00 Completed [facility] SARS-COV-2 COVID-19 MODERNA 12+ YRS VACCINE 2020-10-08 00:00:00 Completed [facility] SARS-COV-2 COVID-19 MODERNA 12+ YRS VACCINE 2020-10-08 00:00:00 Completed [facility] SARS-COV-2 COVID-19 MODERNA 12+ YRS VACCINE 2020-10-08 00:00:00 Completed [facility] SARS-COV-2 COVID-19 MODERNA 12+ YRS VACCINE 2020-10-08 00:00:00 Completed [facility] SARS-COV-2 COVID-19 MODERNA 12+ YRS VACCINE 2020-10-08 00:00:00 Completed [facility] SARS-COV-2 COVID-19 MODERNA 12+ YRS VACCINE 2020-10-08 00:00:00 Completed [facility] SARS-COV-2 COVID-19 MODERNA 12+ YRS VACCINE 2020-10-08 00:00:00 Completed [facility] SARS-COV-2 COVID-19 MODERNA 12+ YRS VACCINE 2020-10-08 00:00:00 Completed [facility] SARS-COV-2 COVID-19 MODERNA 12+ YRS VACCINE 2020-10-08 00:00:00 Completed [facility] SARS-COV-2 COVID-19 MODERNA 12+ YRS VACCINE 2020-10-08 00:00:00 Completed [facility] SARS-COV-2 COVID-19 MODERNA 12+ YRS VACCINE 2020-10-08 00:00:00 Completed [facility] SARS-COV-2 COVID-19 MODERNA 12+ YRS VACCINE 2020-10-08 00:00:00 Completed [facility] SARS-COV-2 COVID-19 MODERNA 12+ YRS VACCINE 2020-10-08 00:00:00 Completed [facility] SARS-COV-2 COVID-19 MODERNA 12+ YRS VACCINE 2020-10-08 00:00:00 Completed [facility] SARS-COV-2 COVID-19 MODERNA 12+ YRS VACCINE 2020-10-08 00:00:00 Completed [facility] SARS-COV-2 COVID-19 MODERNA 12+ YRS VACCINE 2020-10-08 00:00:00 Completed [facility] SARS-COV-2 COVID-19 MODERNA 12+ YRS VACCINE 2020-10-08 00:00:00 Completed [facility] SARS-COV-2 COVID-19 MODERNA 12+ YRS VACCINE 2020-10-08 00:00:00 Completed [facility] SARS-COV-2 COVID-19 MODERNA 12+ YRS VACCINE 2020-10-08 00:00:00 Completed [facility] SARS-COV-2 COVID-19 MODERNA 12+ YRS VACCINE 2020-10-08 00:00:00 Completed [facility] SARS-COV-2 COVID-19 MODERNA 12+ YRS VACCINE 2020-10-08 00:00:00 Completed [facility] SARS-COV-2 COVID-19 MODERNA 12+ YRS VACCINE 2020-10-08 00:00:00 Completed [facility] SARS-COV-2 COVID-19 MODERNA 12+ YRS VACCINE 2020-10-08 00:00:00 Completed [facility] SARS-COV-2 COVID-19 MODERNA 12+ YRS VACCINE 2020-10-08 00:00:00 Completed [facility] SARS-COV-2 COVID-19 MODERNA 12+ YRS VACCINE 2020-10-08 00:00:00 Completed [facility] SARS-COV-2 COVID-19 MODERNA 12+ YRS VACCINE 2020-10-08 00:00:00 Completed [facility] SARS-COV-2 COVID-19 MODERNA 12+ YRS VACCINE 2020-10-08 00:00:00 Completed [facility] SARS-COV-2 COVID-19 MODERNA 12+ YRS VACCINE 2020-10-08 00:00:00 Completed [facility] SARS-COV-2 COVID-19 MODERNA 12+ YRS VACCINE 2020-10-08 00:00:00 Completed [facility] SARS-COV-2 COVID-19 MODERNA 12+ YRS VACCINE 2020-10-08 00:00:00 Completed [facility] SARS-COV-2 COVID-19 MODERNA 12+ YRS VACCINE 2020-10-08 00:00:00 Completed [facility] SARS-COV-2 COVID-19 MODERNA 12+ YRS VACCINE 2020-10-08 00:00:00 Completed [facility] SARS-COV-2 COVID-19 MODERNA 12+ YRS VACCINE 2020-10-08 00:00:00 Completed [facility] SARS-COV-2 COVID-19 MODERNA 12+ YRS VACCINE 2020-10-08 00:00:00 Completed [facility] SARS-COV-2 COVID-19 MODERNA 12+ YRS VACCINE 2020-10-08 00:00:00 Completed [facility] SARS-COV-2 COVID-19 MODERNA 12+ YRS VACCINE 2020-10-08 00:00:00 Completed [facility] SARS-COV-2 COVID-19 MODERNA 12+ YRS VACCINE 2020-10-08 00:00:00 Completed [facility] SARS-COV-2 COVID-19 MODERNA 12+ YRS VACCINE 2020-10-08 00:00:00 Completed [facility] SARS-COV-2 COVID-19 MODERNA 12+ YRS VACCINE 2020-10-08 00:00:00 Completed [facility] SARS-COV-2 COVID-19 MODERNA 12+ YRS VACCINE 2020-10-08 00:00:00 Completed [facility] SARS-COV-2 COVID-19 MODERNA 12+ YRS VACCINE 2020-10-08 00:00:00 Completed [facility] SARS-COV-2 COVID-19 MODERNA 12+ YRS VACCINE 2020-10-08 00:00:00 Completed [facility] SARS-COV-2 COVID-19 MODERNA 12+ YRS VACCINE 2020-10-08 00:00:00 Completed [facility] SARS-COV-2 COVID-19 MODERNA 12+ YRS VACCINE 2020-10-08 00:00:00 Completed [facility] SARS-COV-2 COVID-19 MODERNA 12+ YRS VACCINE 2020-10-08 00:00:00 Completed [facility] SARS-COV-2 COVID-19 MODERNA 12+ YRS VACCINE 2020-10-08 00:00:00 Completed [facility] SARS-COV-2 COVID-19 MODERNA 12+ YRS VACCINE 2020-10-08 00:00:00 Completed [facility] SARS-COV-2 COVID-19 MODERNA 12+ YRS VACCINE 2020-10-08 00:00:00 Completed [facility] SARS-COV-2 COVID-19 MODERNA 12+ YRS VACCINE 2020-10-08 00:00:00 Completed [facility] SARS-COV-2 COVID-19 MODERNA 12+ YRS VACCINE 2020-10-08 00:00:00 Completed [facility] SARS-COV-2 COVID-19 MODERNA 12+ YRS VACCINE 2020-10-08 00:00:00 Completed [facility] SARS-COV-2 COVID-19 MODERNA 12+ YRS VACCINE 2020-10-08 00:00:00 Completed [facility] SARS-COV-2 COVID-19 MODERNA 12+ YRS VACCINE 2020-10-08 00:00:00 Completed [facility] SARS-COV-2 COVID-19 MODERNA 12+ YRS VACCINE 2020-10-08 00:00:00 Completed [facility] SARS-COV-2 COVID-19 MODERNA 12+ YRS VACCINE 2020-10-08 00:00:00 Completed [facility] SARS-COV-2 COVID-19 MODERNA 12+ YRS VACCINE 2020-10-08 00:00:00 Completed [facility] SARS-COV-2 COVID-19 MODERNA 12+ YRS VACCINE 2020-10-08 00:00:00 Completed [facility] SARS-COV-2 COVID-19 MODERNA 12+ YRS VACCINE 2020-10-08 00:00:00 Completed [facility] SARS-COV-2 COVID-19 MODERNA 12+ YRS VACCINE 2020-10-08 00:00:00 Completed [facility] SARS-COV-2 COVID-19 MODERNA 12+ YRS VACCINE 2020-10-08 00:00:00 Completed [facility] SARS-COV-2 COVID-19 MODERNA 12+ YRS VACCINE 2020-10-08 00:00:00 Completed [facility] SARS-COV-2 COVID-19 MODERNA 12+ YRS VACCINE 2020-10-08 00:00:00 Completed [facility] SARS-COV-2 COVID-19 MODERNA 12+ YRS VACCINE 2020-10-08 00:00:00 Completed [facility] SARS-COV-2 COVID-19 MODERNA 12+ YRS VACCINE 2020-10-08 00:00:00 Completed [facility] SARS-COV-2 COVID-19 MODERNA 12+ YRS VACCINE 2020-10-08 00:00:00 Completed [facility] SARS-COV-2 COVID-19 MODERNA 12+ YRS VACCINE 2020-10-08 00:00:00 Completed [facility] SARS-COV-2 COVID-19 MODERNA 12+ YRS VACCINE 2020-10-08 00:00:00 Completed [facility] Zoster Vaccine Recombinant 2018-12-28 00:00:00 Completed [facility] Zoster Vaccine Recombinant 2018-12-28 00:00:00 Completed [facility] Zoster Vaccine Recombinant 2018-12-28 00:00:00 Completed [facility] Zoster Vaccine Recombinant 2018-12-28 00:00:00 Completed [facility] Zoster Vaccine Recombinant 2018-12-28 00:00:00 Completed [facility] Zoster Vaccine Recombinant 2018-12-28 00:00:00 Completed [facility] Zoster Vaccine Recombinant 2018-12-28 00:00:00 Completed [facility] Zoster Vaccine Recombinant 2018-12-28 00:00:00 Completed [facility] Zoster Vaccine Recombinant 2018-12-28 00:00:00 Completed [facility] Zoster Vaccine Recombinant 2018-12-28 00:00:00 Completed [facility] Zoster Vaccine Recombinant 2018-12-28 00:00:00 Completed [facility] Zoster Vaccine Recombinant 2018-12-28 00:00:00 Completed [facility] Zoster Vaccine Recombinant 2018-12-28 00:00:00 Completed [facility] Zoster Vaccine Recombinant 2018-12-28 00:00:00 Completed [facility] Zoster Vaccine Recombinant 2018-12-28 00:00:00 Completed [facility] Zoster Vaccine Recombinant 2018-12-28 00:00:00 Completed [facility] Zoster Vaccine Recombinant 2018-12-28 00:00:00 Completed [facility] Zoster Vaccine Recombinant 2018-12-28 00:00:00 Completed [facility] Zoster Vaccine Recombinant 2018-12-28 00:00:00 Completed [facility] Zoster Vaccine Recombinant 2018-12-28 00:00:00 Completed [facility] Zoster Vaccine Recombinant 2018-12-28 00:00:00 Completed [facility] Zoster Vaccine Recombinant 2018-12-28 00:00:00 Completed [facility] Zoster Vaccine Recombinant 2018-12-28 00:00:00 Completed [facility] Zoster Vaccine Recombinant 2018-12-28 00:00:00 Completed [facility] Zoster Vaccine Recombinant 2018-10-29 00:00:00 Completed [facility] Zoster Vaccine Recombinant 2018-10-29 00:00:00 Completed [facility] Zoster Vaccine Recombinant 2018-10-29 00:00:00 Completed [facility] Zoster Vaccine Recombinant 2018-10-29 00:00:00 Completed [facility] Zoster Vaccine Recombinant 2018-10-29 00:00:00 Completed [facility] Zoster Vaccine Recombinant 2018-10-29 00:00:00 Completed [facility] Zoster Vaccine Recombinant 2018-10-29 00:00:00 Completed [facility] Zoster Vaccine Recombinant 2018-10-29 00:00:00 Completed [facility] Zoster Vaccine Recombinant 2018-10-29 00:00:00 Completed [facility] Zoster Vaccine Recombinant 2018-10-29 00:00:00 Completed [facility] Zoster Vaccine Recombinant 2018-10-29 00:00:00 Completed [facility] Zoster Vaccine Recombinant 2018-10-29 00:00:00 Completed [facility] Zoster Vaccine Recombinant 2018-10-29 00:00:00 Completed [facility] Zoster Vaccine Recombinant 2018-10-29 00:00:00 Completed [facility] Zoster Vaccine Recombinant 2018-10-29 00:00:00 Completed [facility] Zoster Vaccine Recombinant 2018-10-29 00:00:00 Completed [facility] Zoster Vaccine Recombinant 2018-10-29 00:00:00 Completed [facility] Zoster Vaccine Recombinant 2018-10-29 00:00:00 Completed [facility] Zoster Vaccine Recombinant 2018-10-29 00:00:00 Completed [facility] Zoster Vaccine Recombinant 2018-10-29 00:00:00 Completed [facility] Zoster Vaccine Recombinant 2018-10-29 00:00:00 Completed [facility] Zoster Vaccine Recombinant 2018-10-29 00:00:00 Completed [facility] Zoster Vaccine Recombinant 2018-10-29 00:00:00 Completed [facility] Zoster Vaccine Recombinant 2018-10-29 00:00:00 Completed [facility] DT/Tetanus 2014-01-29 00:00:00 Completed [facility] DT/Tetanus 2014-01-29 00:00:00 Completed [facility] DT/Tetanus 2014-01-29 00:00:00 Completed [facility] DT/Tetanus 2014-01-29 00:00:00 Completed [facility] DT/Tetanus 2014-01-29 00:00:00 Completed [facility] DT/Tetanus 2014-01-29 00:00:[address] [facility] DT/Tetanus 2014-01-29 00:00:00 Completed [facility] DT/Tetanus 2014-01-29 00:00:00 Completed [facility] DT/Tetanus 2014-01-29 00:00:00 Completed [facility] DT/Tetanus 2014-01-29 00:00:00 Completed [facility] DT/Tetanus 2014-01-29 00:00:00 Completed [facility] DT/Tetanus 2014-01-29 00:00:00 Completed [facility] DT/Tetanus 2014-01-29 00:00:00 Completed [facility] DT/Tetanus 2014-01-29 00:00:00 Completed [facility] DT/Tetanus 2014-01-29 00:00:00 Completed [facility] DT/Tetanus 2014-01-29 00:00:00 Completed [facility] DT/Tetanus 2014-01-29 00:00:00 Completed [facility] DT/Tetanus 2014-01-29 00:00:00 Completed [facility] DT/Tetanus 2014-01-29 00:00:00 Completed [facility] DT/Tetanus 2014-01-29 00:00:00 Completed [facility] DT/Tetanus 2014-01-29 00:00:00 Completed [facility] DT/Tetanus 2014-01-29 00:00:00 Completed [facility] DT/Tetanus 2014-01-29 00:00:00 Completed [facility] DT/Tetanus 2014-01-29 00:00:00 Completed [facility] DT/Tetanus 2014-01-29 00:00:00 Completed [facility] DT/Tetanus 2014-01-29 00:00:00 Completed [facility] DT/Tetanus 2014-01-29 00:00:00 Completed [facility] DT/Tetanus 2014-01-29 00:00:00 Completed [facility] DT/Tetanus 2014-01-29 00:00:00 Completed [facility] DT/Tetanus 2014-01-29 00:00:00 Completed [facility] DT/Tetanus 2014-01-29 00:00:00 Completed [facility] DT/Tetanus 2014-01-29 00:00:00 Completed [facility] DT/Tetanus 2014-01-29 00:00:00 Completed [facility] DT/Tetanus 2014-01-29 00:00:00 Completed [facility] DT/Tetanus 2014-01-29 00:00:00 Completed [facility] DT/Tetanus 2014-01-29 00:00:00 Completed [facility] DT/Tetanus 2014-01-29 00:00:00 Completed [facility] DT/Tetanus 2014-01-29 00:00:00 Completed [facility] DT/Tetanus 2014-01-29 00:00:00 Completed [facility] DT/Tetanus 2014-01-29 00:00:00 Completed [facility] DT/Tetanus 2014-01-29 00:00:00 Completed [facility] DT/Tetanus 2014-01-29 00:00:00 Completed [facility] DT/Tetanus 2014-01-29 00:00:00 Completed [facility] DT/Tetanus 2014-01-29 00:00:00 Completed [facility] DT/Tetanus 2014-01-29 00:00:00 Completed [facility] DT/Tetanus 2014-01-29 00:00:00 Completed [facility] DT/Tetanus 2014-01-29 00:00:00 Completed [facility] DT/Tetanus 2014-01-29 00:00:00 Completed [facility] DT/Tetanus 2014-01-29 00:00:00 Completed [facility] DT/Tetanus 2014-01-29 00:00:00 Completed [facility] DT/Tetanus 2014-01-29 00:00:00 Completed [facility] DT/Tetanus 2014-01-29 00:00:00 Completed [facility] SARS-COV-2 COVID-19 MODERNA 12+ YRS VACCINE Unknown Completed [facility] SARS-COV-2 COVID-19 MODERNA 12+ YRS VACCINE Unknown Completed [facility] SARS-COV-2 COVID-19 MODERNA 12+ YRS VACCINE Unknown Completed [facility] Influenza Virus Vaccine Unknown Completed [facility] Pneumococcal 20 Conjugate, PCV20 (Prevnar 20) Unknown Completed [facility] Influenza Virus Vaccine Quad IM, Preserv and ABX Free 6 MO-64 YRS (FLUCELVAX) Unknown Completed [facility] SARS-COV-2 COVID-19 VACCINE 12 YRS+, BIVALENT 0.5ML, IM, (MODERNA-BLUE TOP) Unknown Completed [facility] DT/Tetanus Unknown Completed [facility] Influenza Virus Vaccine - Whole Unknown Completed [facility] Zoster Vaccine Recombinant Unknown Completed [facility] Zoster Vaccine Recombinant Unknown Completed [facility] SARS-COV-2 COVID-19 MODERNA 12+ YRS VACCINE Unknown Completed [facility] SARS-COV-2 COVID-19 MODERNA 12+ YRS VACCINE Unknown Completed [facility] SARS-COV-2 COVID-19 MODERNA 12+ YRS VACCINE Unknown Completed [facility] Influenza Virus Vaccine Unknown Completed [facility] Pneumococcal 20 Conjugate, PCV20 (Prevnar 20) Unknown Completed [facility] Influenza Virus Vaccine Quad IM, Preserv and ABX Free 6 MO-64 YRS (FLUCELVAX) Unknown Completed [facility] SARS-COV-2 COVID-19 VACCINE 12 YRS+, BIVALENT 0.5ML, IM, (MODERNA-BLUE TOP) Unknown Completed [facility] DT/Tetanus Unknown Completed [facility] Influenza Virus Vaccine - Whole Unknown Completed [facility] Zoster Vaccine Recombinant Unknown Completed [facility] Zoster Vaccine Recombinant Unknown Completed [facility] SARS-COV-2 COVID-19 MODERNA 12+ YRS VACCINE Unknown Completed [facility] SARS-COV-2 COVID-19 MODERNA 12+ YRS VACCINE Unknown Completed [facility] SARS-COV-2 COVID-19 MODERNA 12+ YRS VACCINE Unknown Completed [facility] Influenza Virus Vaccine Unknown Completed [facility] Pneumococcal 20 Conjugate, PCV20 (Prevnar 20) Unknown Completed [facility] Influenza Virus Vaccine Quad IM, Preserv and ABX Free 6 MO-64 YRS (FLUCELVAX) Unknown Completed [facility] SARS-COV-2 COVID-19 VACCINE 12 YRS+, BIVALENT 0.5ML, IM, (MODERNA-BLUE TOP) Unknown Completed [facility] DT/Tetanus Unknown Completed [facility] Influenza Virus Vaccine - Whole Unknown Completed [facility] Zoster Vaccine Recombinant Unknown Completed [facility] Zoster Vaccine Recombinant Unknown Completed [facility] SARS-COV-2 COVID-19 MODERNA 12+ YRS VACCINE Unknown Completed [facility] SARS-COV-2 COVID-19 MODERNA 12+ YRS VACCINE Unknown Completed [facility] SARS-COV-2 COVID-19 MODERNA 12+ YRS VACCINE Unknown Completed [facility] Influenza Virus Vaccine Unknown Completed [facility] Pneumococcal 20 Conjugate, PCV20 (Prevnar 20) Unknown Completed [facility] Influenza Virus Vaccine Quad IM, Preserv and ABX Free 6 MO-64 YRS (FLUCELVAX) Unknown Completed [facility] SARS-COV-2 COVID-19 VACCINE 12 YRS+, BIVALENT 0.5ML, IM, (MODERNA-BLUE TOP) Unknown Completed [facility] DT/Tetanus Unknown Completed [facility] Influenza Virus Vaccine - Whole Unknown Completed [facility] Zoster Vaccine Recombinant Unknown Completed [facility] Zoster Vaccine Recombinant Unknown Completed [facility] SARS-COV-2 COVID-19 MODERNA 12+ YRS VACCINE Unknown Completed [facility] SARS-COV-2 COVID-19 MODERNA 12+ YRS VACCINE Unknown Completed [facility] SARS-COV-2 COVID-19 MODERNA 12+ YRS VACCINE Unknown Completed [facility] Influenza Virus Vaccine Unknown Completed [facility] Pneumococcal 20 Conjugate, PCV20 (Prevnar 20) Unknown Completed [facility] Influenza Virus Vaccine Quad IM, Preserv and ABX Free 6 MO-64 YRS (FLUCELVAX) Unknown Completed [facility] SARS-COV-2 COVID-19 VACCINE 12 YRS+, BIVALENT 0.5ML, IM, (MODERNA-BLUE TOP) Unknown Completed [facility] DT/Tetanus Unknown Completed [facility] Influenza Virus Vaccine - Whole Unknown Completed [facility] Zoster Vaccine Recombinant Unknown Completed [facility] Zoster Vaccine Recombinant Unknown Completed [facility] SARS-COV-2 COVID-19 MODERNA 12+ YRS VACCINE Unknown Completed [facility] SARS-COV-2 COVID-19 MODERNA 12+ YRS VACCINE Unknown Completed [facility] SARS-COV-2 COVID-19 MODERNA 12+ YRS VACCINE Unknown Completed [facility] Influenza Virus Vaccine Unknown Completed [facility] Pneumococcal 20 Conjugate, PCV20 (Prevnar 20) Unknown Completed [facility] DT/Tetanus Unknown Completed [facility] Influenza Virus Vaccine - Whole Unknown Completed [facility] Zoster Vaccine Recombinant Unknown Completed [facility] Zoster Vaccine Recombinant Unknown Completed [facility] SARS-COV-2 COVID-19 MODERNA 12+ YRS VACCINE Unknown Completed [facility] SARS-COV-2 COVID-19 MODERNA 12+ YRS VACCINE Unknown Completed [facility] SARS-COV-2 COVID-19 MODERNA 12+ YRS VACCINE Unknown Completed [facility] Influenza Virus Vaccine Unknown Completed [facility] Pneumococcal 20 Conjugate, PCV20 (Prevnar 20) Unknown Completed [facility] DT/Tetanus Unknown Completed [facility] Influenza Virus Vaccine - Whole Unknown Completed [facility] Zoster Vaccine Recombinant Unknown Completed [facility] Zoster Vaccine Recombinant Unknown Completed [facility] SARS-COV-2 COVID-19 MODERNA 12+ YRS VACCINE Unknown Completed [facility] SARS-COV-2 COVID-19 MODERNA 12+ YRS VACCINE Unknown Completed [facility] SARS-COV-2 COVID-19 MODERNA 12+ YRS VACCINE Unknown Completed [facility] Influenza Virus Vaccine Unknown Completed [facility] Pneumococcal 20 Conjugate, PCV20 (Prevnar 20) Unknown Completed [facility] DT/Tetanus Unknown Completed [facility] Influenza Virus Vaccine - Whole Unknown Completed [facility] Zoster Vaccine Recombinant Unknown Completed [facility] Zoster Vaccine Recombinant Unknown Completed [facility] SARS-COV-2 COVID-19 MODERNA 12+ YRS VACCINE Unknown Completed [facility] SARS-COV-2 COVID-19 MODERNA 12+ YRS VACCINE Unknown Completed [facility] SARS-COV-2 COVID-19 MODERNA 12+ YRS VACCINE Unknown Completed [facility] Influenza Virus Vaccine Unknown Completed [facility] Pneumococcal 20 Conjugate, PCV20 (Prevnar 20) Unknown Completed [facility] DT/Tetanus Unknown Completed [facility] Influenza Virus Vaccine - Whole Unknown Completed [facility] Zoster Vaccine Recombinant Unknown Completed [facility] Zoster Vaccine Recombinant Unknown Completed [facility] SARS-COV-2 COVID-19 MODERNA 12+ YRS VACCINE Unknown Completed [facility] SARS-COV-2 COVID-19 MODERNA 12+ YRS VACCINE Unknown Completed [facility] SARS-COV-2 COVID-19 MODERNA 12+ YRS VACCINE Unknown Completed [facility] Influenza Virus Vaccine Unknown Completed [facility] Pneumococcal 20 Conjugate, PCV20 (Prevnar 20) Unknown Completed [facility] DT/Tetanus Unknown Completed [facility] Influenza Virus Vaccine - Whole Unknown Completed [facility] Zoster Vaccine Recombinant Unknown Completed [facility] Zoster Vaccine Recombinant Unknown Completed [facility] SARS-COV-2 COVID-19 MODERNA 12+ YRS VACCINE Unknown Completed [facility] SARS-COV-2 COVID-19 MODERNA 12+ YRS VACCINE Unknown Completed [facility] SARS-COV-2 COVID-19 MODERNA 12+ YRS VACCINE Unknown Completed [facility] Influenza Virus Vaccine Unknown Completed [facility] Pneumococcal 20 Conjugate, PCV20 (Prevnar 20) Unknown Completed [facility] DT/Tetanus Unknown Completed [facility] Influenza Virus Vaccine - Whole Unknown Completed [place] [facility] Zoster Vaccine Recombinant Unknown Completed [facility] Zoster Vaccine Recombinant Unknown Completed [facility] SARS-COV-2 COVID-19 MODERNA 12+ YRS VACCINE Unknown Completed [facility] SARS-COV-2 COVID-19 MODERNA 12+ YRS VACCINE Unknown Completed [facility] SARS-COV-2 COVID-19 MODERNA 12+ YRS VACCINE Unknown Completed [facility] Influenza Virus Vaccine Unknown Completed [facility] DT/Tetanus Unknown Completed [facility] Influenza Virus Vaccine - Whole Unknown Completed [facility] Zoster Vaccine Recombinant Unknown Completed [facility] Zoster Vaccine Recombinant Unknown Completed [facility] SARS-COV-2 COVID-19 MODERNA 12+ YRS VACCINE Unknown Completed [facility] SARS-COV-2 COVID-19 MODERNA 12+ YRS VACCINE Unknown Completed [facility] SARS-COV-2 COVID-19 MODERNA 12+ YRS VACCINE Unknown Completed [facility] Influenza Virus Vaccine Unknown Completed [facility] DT/Tetanus Unknown Completed [facility] Influenza Virus Vaccine - Whole Unknown Completed [facility] Zoster Vaccine Recombinant Unknown Completed [facility] Zoster Vaccine Recombinant Unknown Completed [facility] SARS-COV-2 COVID-19 MODERNA 12+ YRS VACCINE Unknown Completed [facility] SARS-COV-2 COVID-19 MODERNA 12+ YRS VACCINE Unknown Completed [facility] SARS-COV-2 COVID-19 MODERNA 12+ YRS VACCINE Unknown Completed [facility] Influenza Virus Vaccine Unknown Completed [facility] DT/Tetanus Unknown Completed [facility] Influenza Virus Vaccine - Whole Unknown Completed [facility] Zoster Vaccine Recombinant Unknown Completed [facility] Zoster Vaccine Recombinant Unknown Completed [facility] SARS-COV-2 COVID-19 MODERNA 12+ YRS VACCINE Unknown Completed [facility] SARS-COV-2 COVID-19 MODERNA 12+ YRS VACCINE Unknown Completed [facility] SARS-COV-2 COVID-19 MODERNA 12+ YRS VACCINE Unknown Completed [facility] Influenza Virus Vaccine Unknown Completed [facility] DT/Tetanus Unknown Completed [facility] Influenza Virus Vaccine - Whole Unknown Completed [facility] Zoster Vaccine Recombinant Unknown Completed [facility] Zoster Vaccine Recombinant Unknown Completed [facility] SARS-COV-2 COVID-19 MODERNA 12+ YRS VACCINE Unknown Completed [facility] SARS-COV-2 COVID-19 MODERNA 12+ YRS VACCINE Unknown Completed [facility] SARS-COV-2 COVID-19 MODERNA 12+ YRS VACCINE Unknown Completed [facility] Influenza Virus Vaccine Unknown Completed [facility] DT/Tetanus Unknown Completed [facility] Influenza Virus Vaccine - Whole Unknown Completed [facility] Zoster Vaccine Recombinant Unknown Completed [facility] Zoster Vaccine Recombinant Unknown Completed [facility] SARS-COV-2 COVID-19 MODERNA 12+ YRS VACCINE Unknown Completed [facility] SARS-COV-2 COVID-19 MODERNA 12+ YRS VACCINE Unknown Completed [facility] SARS-COV-2 COVID-19 MODERNA 12+ YRS VACCINE Unknown Completed [facility] Influenza Virus Vaccine Unknown Completed [facility] DT/Tetanus Unknown Completed [facility] Influenza Virus Vaccine - Whole Unknown Completed [place] [facility] Zoster Vaccine Recombinant Unknown Completed [facility] Zoster Vaccine Recombinant Unknown Completed [facility] SARS-COV-2 COVID-19 MODERNA 12+ YRS VACCINE Unknown Completed [facility] SARS-COV-2 COVID-19 MODERNA 12+ YRS VACCINE Unknown Completed [facility] DT/Tetanus Unknown Completed [facility] Zoster Vaccine Recombinant Unknown Completed [facility] Zoster Vaccine Recombinant Unknown Completed [facility] SARS-COV-2 COVID-19 MODERNA 12+ YRS VACCINE Unknown Completed [facility] SARS-COV-2 COVID-19 MODERNA 12+ YRS VACCINE Unknown Completed [facility] DT/Tetanus Unknown Completed [facility] Zoster Vaccine Recombinant Unknown Completed [facility] Zoster Vaccine Recombinant Unknown Completed [facility] SARS-COV-2 COVID-19 MODERNA 12+ YRS VACCINE Unknown Completed [facility] SARS-COV-2 COVID-19 MODERNA 12+ YRS VACCINE Unknown Completed [facility] SARS-COV-2 COVID-19 MODERNA 12+ YRS VACCINE Unknown Completed [facility] Influenza Virus Vaccine Unknown Completed [facility] Pneumococcal 20 Conjugate, PCV20 (Prevnar 20) Unknown Completed [facility] Influenza Virus Vaccine Quad IM, Preserv and ABX Free 6 MO-64 YRS (FLUCELVAX) Unknown Completed [facility] SARS-COV-2 COVID-19 VACCINE 12 YRS+, BIVALENT 0.5ML, IM, (MODERNA-BLUE TOP) Unknown Completed [facility] DT/Tetanus Unknown Completed [facility] Influenza Virus Vaccine - Whole Unknown Completed [facility] Zoster Vaccine Recombinant Unknown Completed [facility] Zoster Vaccine Recombinant Unknown Completed [facility] SARS-COV-2 COVID-19 MODERNA 12+ YRS VACCINE Unknown Completed [facility] SARS-COV-2 COVID-19 MODERNA 12+ YRS VACCINE Unknown Completed [facility] SARS-COV-2 COVID-19 MODERNA 12+ YRS VACCINE Unknown Completed [facility] Influenza Virus Vaccine Unknown Completed [facility] Pneumococcal 20 Conjugate, PCV20 (Prevnar 20) Unknown Completed [facility] Influenza Virus Vaccine Quad IM, Preserv and ABX Free 6 MO-64 YRS (FLUCELVAX) Unknown Completed [facility] SARS-COV-2 COVID-19 VACCINE 12 YRS+, BIVALENT 0.5ML, IM, (MODERNA-BLUE TOP) Unknown Completed [facility] DT/Tetanus Unknown Completed [facility] Influenza Virus Vaccine - Whole Unknown Completed [facility] Zoster Vaccine Recombinant Unknown Completed [facility] Zoster Vaccine Recombinant Unknown Completed [facility] SARS-COV-2 COVID-19 MODERNA 12+ YRS VACCINE Unknown Completed [facility] SARS-COV-2 COVID-19 MODERNA 12+ YRS VACCINE Unknown Completed [facility] SARS-COV-2 COVID-19 MODERNA 12+ YRS VACCINE Unknown Completed [facility] Influenza Virus Vaccine Unknown Completed [facility] Pneumococcal 20 Conjugate, PCV20 (Prevnar 20) Unknown Completed [facility] Influenza Virus Vaccine Quad IM, Preserv and ABX Free 6 MO-64 YRS (FLUCELVAX) Unknown Completed [facility] SARS-COV-2 COVID-19 VACCINE 12 YRS+, BIVALENT 0.5ML, IM, (MODERNA-BLUE TOP) Unknown Completed [facility] DT/Tetanus Unknown Completed [facility] Influenza Virus Vaccine - Whole Unknown Completed [facility] Zoster Vaccine Recombinant Unknown Completed [facility] Zoster Vaccine Recombinant Unknown Completed [facility] SARS-COV-2 COVID-19 MODERNA 12+ YRS VACCINE Unknown Completed [facility] SARS-COV-2 COVID-19 MODERNA 12+ YRS VACCINE Unknown Completed [facility] SARS-COV-2 COVID-19 MODERNA 12+ YRS VACCINE Unknown Completed [facility] Influenza Virus Vaccine Unknown Completed [facility] Pneumococcal 20 Conjugate, PCV20 (Prevnar 20) Unknown Completed [facility] Influenza Virus Vaccine Quad IM, Preserv and ABX Free 6 MO-64 YRS (FLUCELVAX) Unknown Completed [facility] SARS-COV-2 COVID-19 VACCINE 12 YRS+, BIVALENT 0.5ML, IM, (MODERNA-BLUE TOP) Unknown Completed [facility] DT/Tetanus Unknown Completed [facility] Influenza Virus Vaccine - Whole Unknown Completed [facility] Zoster Vaccine Recombinant Unknown Completed [facility] Zoster Vaccine Recombinant Unknown Completed [facility] SARS-COV-2 COVID-19 MODERNA 12+ YRS VACCINE Unknown Completed [facility] SARS-COV-2 COVID-19 MODERNA 12+ YRS VACCINE Unknown Completed [facility] SARS-COV-2 COVID-19 MODERNA 12+ YRS VACCINE Unknown Completed [facility] Influenza Virus Vaccine Unknown Completed [facility] Pneumococcal 20 Conjugate, PCV20 (Prevnar 20) Unknown Completed [facility] Influenza Virus Vaccine Quad IM, Preserv and ABX Free 6 MO-64 YRS (FLUCELVAX) Unknown Completed [facility] SARS-COV-2 COVID-19 VACCINE 12 YRS+, BIVALENT 0.5ML, IM, (MODERNA-BLUE TOP) Unknown Completed [facility] DT/Tetanus Unknown Completed [facility] Influenza Virus Vaccine - Whole Unknown Completed [place] [facility] Zoster Vaccine Recombinant Unknown Completed [facility] Zoster Vaccine Recombinant Unknown Completed [facility] SARS-COV-2 COVID-19 MODERNA 12+ YRS VACCINE Unknown Completed [facility] SARS-COV-2 COVID-19 MODERNA 12+ YRS VACCINE Unknown Completed [facility] SARS-COV-2 COVID-19 MODERNA 12+ YRS VACCINE Unknown Completed [facility] Influenza Virus Vaccine Unknown Completed [facility] Pneumococcal 20 Conjugate, PCV20 (Prevnar 20) Unknown Completed [facility] Influenza Virus Vaccine Quad IM, Preserv and ABX Free 6 MO-64 YRS (FLUCELVAX) Unknown Completed [facility] SARS-COV-2 COVID-19 VACCINE 12 YRS+, BIVALENT 0.5ML, IM, (MODERNA-BLUE TOP) Unknown Completed [facility] DT/Tetanus Unknown Completed [facility] Influenza Virus Vaccine - Whole Unknown Completed [place] [facility] Zoster Vaccine Recombinant Unknown Completed [facility] Zoster Vaccine Recombinant Unknown Completed [facility] SARS-COV-2 COVID-19 MODERNA 12+ YRS VACCINE Unknown Completed [facility] SARS-COV-2 COVID-19 MODERNA 12+ YRS VACCINE Unknown Completed [facility] SARS-COV-2 COVID-19 MODERNA 12+ YRS VACCINE Unknown Completed [facility] Influenza Virus Vaccine Unknown Completed [facility] Pneumococcal 20 Conjugate, PCV20 (Prevnar 20) Unknown Completed [facility] Influenza Virus Vaccine Quad IM, Preserv and ABX Free 6 MO-64 YRS (FLUCELVAX) Unknown Completed [facility] SARS-COV-2 COVID-19 VACCINE 12 YRS+, BIVALENT 0.5ML, IM, (MODERNA-BLUE TOP) Unknown Completed [facility] DT/Tetanus Unknown Completed [facility] Influenza Virus Vaccine - Whole Unknown Completed [facility] Zoster Vaccine Recombinant Unknown Completed [facility] Zoster Vaccine Recombinant Unknown Completed [facility] SARS-COV-2 COVID-19 MODERNA 12+ YRS VACCINE Unknown Completed [facility] SARS-COV-2 COVID-19 MODERNA 12+ YRS VACCINE Unknown Completed [facility] SARS-COV-2 COVID-19 MODERNA 12+ YRS VACCINE Unknown Completed [facility] Influenza Virus Vaccine Unknown Completed [facility] Pneumococcal 20 Conjugate, PCV20 (Prevnar 20) Unknown Completed [facility] Influenza Virus Vaccine Quad IM, Preserv and ABX Free 6 MO-64 YRS (FLUCELVAX) Unknown Completed [facility] SARS-COV-2 COVID-19 VACCINE 12 YRS+, BIVALENT 0.5ML, IM, (MODERNA-BLUE TOP) Unknown Completed [facility] DT/Tetanus Unknown Completed [facility] Influenza Virus Vaccine - Whole Unknown Completed [facility] Zoster Vaccine Recombinant Unknown Completed [facility] Zoster Vaccine Recombinant Unknown Completed [facility] SARS-COV-2 COVID-19 MODERNA 12+ YRS VACCINE Unknown Completed [facility] SARS-COV-2 COVID-19 MODERNA 12+ YRS VACCINE Unknown Completed [facility] SARS-COV-2 COVID-19 MODERNA 12+ YRS VACCINE Unknown Completed [facility] Influenza Virus Vaccine Unknown Completed [facility] Pneumococcal 20 Conjugate, PCV20 (Prevnar 20) Unknown Completed [facility] Influenza Virus Vaccine Quad IM, Preserv and ABX Free 6 MO-64 YRS (FLUCELVAX) Unknown Completed [facility] SARS-COV-2 COVID-19 VACCINE 12 YRS+, BIVALENT 0.5ML, IM, (MODERNA-BLUE TOP) Unknown Completed [facility] DT/Tetanus Unknown Completed [facility] Influenza Virus Vaccine - Whole Unknown Completed [facility] Zoster Vaccine Recombinant Unknown Completed [facility] Zoster Vaccine Recombinant Unknown Completed [facility] SARS-COV-2 COVID-19 MODERNA 12+ YRS VACCINE Unknown Completed [facility] SARS-COV-2 COVID-19 MODERNA 12+ YRS VACCINE Unknown Completed [facility] SARS-COV-2 COVID-19 MODERNA 12+ YRS VACCINE Unknown Completed [facility] Influenza Virus Vaccine Unknown Completed [facility] Pneumococcal 20 Conjugate, PCV20 (Prevnar 20) Unknown Completed [facility] Influenza Virus Vaccine Quad IM, Preserv and ABX Free 6 MO-64 YRS (FLUCELVAX) Unknown Completed [facility] SARS-COV-2 COVID-19 VACCINE 12 YRS+, BIVALENT 0.5ML, IM, (MODERNA-BLUE TOP) Unknown Completed [facility] DT/Tetanus Unknown Completed [facility] Influenza Virus Vaccine - Whole Unknown Completed [facility] Zoster Vaccine Recombinant Unknown Completed [facility] Zoster Vaccine Recombinant Unknown Completed [facility] SARS-COV-2 COVID-19 MODERNA 12+ YRS VACCINE Unknown Completed [facility] SARS-COV-2 COVID-19 MODERNA 12+ YRS VACCINE Unknown Completed [facility] SARS-COV-2 COVID-19 MODERNA 12+ YRS VACCINE Unknown Completed [facility] Influenza Virus Vaccine Unknown Completed [facility] Pneumococcal 20 Conjugate, PCV20 (Prevnar 20) Unknown Completed [facility] Influenza Virus Vaccine Quad IM, Preserv and ABX Free 6 MO-64 YRS (FLUCELVAX) Unknown Completed [facility] SARS-COV-2 COVID-19 VACCINE 12 YRS+, BIVALENT 0.5ML, IM, (MODERNA-BLUE TOP) Unknown Completed [facility] DT/Tetanus Unknown Completed [facility] Influenza Virus Vaccine - Whole Unknown Completed [facility] Zoster Vaccine Recombinant Unknown Completed [facility] Zoster Vaccine Recombinant Unknown Completed [facility] Influenza Virus Vaccine Quad IM, Preserv and ABX Free 6 MO-64 YRS (FLUCELVAX) Unknown Completed [facility] SARS-COV-2 COVID-19 MODERNA 12+ YRS VACCINE Unknown Completed [facility] SARS-COV-2 COVID-19 MODERNA 12+ YRS VACCINE Unknown Completed [facility] SARS-COV-2 COVID-19 MODERNA 12+ YRS VACCINE Unknown Completed [facility] Influenza Virus Vaccine Unknown Completed [facility] Pneumococcal 20 Conjugate, PCV20 (Prevnar 20) Unknown Completed [facility] Influenza Virus Vaccine Quad IM, Preserv and ABX Free 6 MO-64 YRS (FLUCELVAX) Unknown Completed [facility] SARS-COV-2 COVID-19 VACCINE 12 YRS+, BIVALENT 0.5ML, IM, (MODERNA-BLUE TOP) Unknown Completed [facility] DT/Tetanus Unknown Completed [facility] Influenza Virus Vaccine - Whole Unknown Completed [facility] Zoster Vaccine Recombinant Unknown Completed [facility] Zoster Vaccine Recombinant Unknown Completed [facility] Influenza Virus Vaccine Quad IM, Preserv and ABX Free 6 MO-64 YRS (FLUCELVAX) Unknown Completed [facility] SARS-COV-2 COVID-19 MODERNA 12+ YRS VACCINE Unknown Completed [facility] SARS-COV-2 COVID-19 MODERNA 12+ YRS VACCINE Unknown Completed [facility] SARS-COV-2 COVID-19 MODERNA 12+ YRS VACCINE Unknown Completed [facility] Influenza Virus Vaccine Unknown Completed [facility] Pneumococcal 20 Conjugate, PCV20 (Prevnar 20) Unknown Completed [facility] Influenza Virus Vaccine Quad IM, Preserv and ABX Free 6 MO-64 YRS (FLUCELVAX) Unknown Completed [facility] SARS-COV-2 COVID-19 VACCINE 12 YRS+, BIVALENT 0.5ML, IM, (MODERNA-BLUE TOP) Unknown Completed [facility] DT/Tetanus Unknown Completed [facility] Influenza Virus Vaccine - Whole Unknown Completed [facility] Zoster Vaccine Recombinant Unknown Completed [facility] Zoster Vaccine Recombinant Unknown Completed [facility] Influenza Virus Vaccine Quad IM, Preserv and ABX Free 6 MO-64 YRS (FLUCELVAX) Unknown Completed [facility] SARS-COV-2 COVID-19 MODERNA 12+ YRS VACCINE Unknown Completed [facility] SARS-COV-2 COVID-19 MODERNA 12+ YRS VACCINE Unknown Completed [facility] SARS-COV-2 COVID-19 MODERNA 12+ YRS VACCINE Unknown Completed [facility] Influenza Virus Vaccine Unknown Completed [facility] Pneumococcal 20 Conjugate, PCV20 (Prevnar 20) Unknown Completed [facility] Influenza Virus Vaccine Quad IM, Preserv and ABX Free 6 MO-64 YRS (FLUCELVAX) Unknown Completed [facility] SARS-COV-2 COVID-19 VACCINE 12 YRS+, BIVALENT 0.5ML, IM, (MODERNA-BLUE TOP) Unknown Completed [facility] DT/Tetanus Unknown Completed [facility] Influenza Virus Vaccine - Whole Unknown Completed [facility] Zoster Vaccine Recombinant Unknown Completed [facility] Zoster Vaccine Recombinant Unknown Completed [facility] Influenza Virus Vaccine Quad IM, Preserv and ABX Free 6 MO-64 YRS (FLUCELVAX) Unknown Completed [facility] SARS-COV-2 COVID-19 MODERNA 12+ YRS VACCINE Unknown Completed [facility] SARS-COV-2 COVID-19 MODERNA 12+ YRS VACCINE Unknown Completed [facility] SARS-COV-2 COVID-19 MODERNA 12+ YRS VACCINE Unknown Completed [facility] Influenza Virus Vaccine Unknown Completed [facility] Pneumococcal 20 Conjugate, PCV20 (Prevnar 20) Unknown Completed [facility] Influenza Virus Vaccine Quad IM, Preserv and ABX Free 6 MO-64 YRS (FLUCELVAX) Unknown Completed [facility] SARS-COV-2 COVID-19 VACCINE 12 YRS+, BIVALENT 0.5ML, IM, (MODERNA-BLUE TOP) Unknown Completed [facility] DT/Tetanus Unknown Completed [facility] Influenza Virus Vaccine - Whole Unknown Completed [facility] Zoster Vaccine Recombinant Unknown Completed [facility] Zoster Vaccine Recombinant Unknown Completed [facility] Influenza Virus Vaccine Quad IM, Preserv and ABX Free 6 MO-64 YRS (FLUCELVAX) Unknown Completed [facility] SARS-COV-2 COVID-19 MODERNA 12+ YRS VACCINE Unknown Completed [facility] SARS-COV-2 COVID-19 MODERNA 12+ YRS VACCINE Unknown Completed [facility] SARS-COV-2 COVID-19 MODERNA 12+ YRS VACCINE Unknown Completed [facility] Influenza Virus Vaccine Unknown Completed [facility] Pneumococcal 20 Conjugate, PCV20 (Prevnar 20) Unknown Completed [facility] Influenza Virus Vaccine Quad IM, Preserv and ABX Free 6 MO-64 YRS (FLUCELVAX) Unknown Completed [facility] SARS-COV-2 COVID-19 VACCINE 12 YRS+, BIVALENT 0.5ML, IM, (MODERNA-BLUE TOP) Unknown Completed [facility] DT/Tetanus Unknown Completed [facility] Influenza Virus Vaccine - Whole Unknown Completed [facility] Zoster Vaccine Recombinant Unknown Completed [facility] Zoster Vaccine Recombinant Unknown Completed [facility] Influenza Virus Vaccine Quad IM, Preserv and ABX Free 6 MO-64 YRS (FLUCELVAX) Unknown Completed [facility] SARS-COV-2 COVID-19 MODERNA 12+ YRS VACCINE Unknown Completed [facility] SARS-COV-2 COVID-19 MODERNA 12+ YRS VACCINE Unknown Completed [facility] SARS-COV-2 COVID-19 MODERNA 12+ YRS VACCINE Unknown Completed [facility] Influenza Virus Vaccine Unknown Completed [facility] Pneumococcal 20 Conjugate, PCV20 (Prevnar 20) Unknown Completed [facility] Influenza Virus Vaccine Quad IM, Preserv and ABX Free 6 MO-64 YRS (FLUCELVAX) Unknown Completed [facility] SARS-COV-2 COVID-19 VACCINE 12 YRS+, BIVALENT 0.5ML, IM, (MODERNA-BLUE TOP) Unknown Completed [facility] DT/Tetanus Unknown Completed [facility] Influenza Virus Vaccine - Whole Unknown Completed [facility] Zoster Vaccine Recombinant Unknown Completed [facility] Zoster Vaccine Recombinant Unknown Completed [facility] Influenza Virus Vaccine Quad IM, Preserv and ABX Free 6 MO-64 YRS (FLUCELVAX) Unknown Completed [facility] Vital Signs Vital Name Observation Time Observation Value Comments S ource Systolic blood pressure 2023-06-14 21:40:00 139 mm[Hg] [facility] Diastolic blood pressure 2023-06-14 21:40:00 88 mm[Hg] [facility] Heart rate 2023-06-14 21:40:00 86 /min [facility] Respiratory rate 2023-06-14 21:40:00 18 /min [facility] Body height 2023-06-14 21:40:00 165.1 cm [facility] Body weight 2023-06-14 21:40:00 91.536 kg [facility] BMI 2023-06-14 21:40:00 33.58 kg/m2 [facility] Oxygen saturation in Arterial blood by Pulse oximetry 2023-06-14 21:40:00 96 /min [facility] Systolic blood pressure 2023-04-04 18:23:00 113 mm[Hg] [facility] Diastolic blood pressure 2023-04-04 18:23:00 73 mm[Hg] [facility] Heart rate 2023-04-04 18:23:00 81 /min [facility] Body temperature 2023-04-04 18:23:00 36.11 Ashlee [facility] Respiratory rate 2023-04-04 18:23:00 18 /min [facility] Body height 2023-04-04 18:23:00 165.1 cm [facility] Body weight 2023-04-04 18:23:00 91.627 kg [facility] BMI 2023-04-04 18:23:00 33.61 kg/m2 [facility] Oxygen saturation in Arterial blood by Pulse oximetry 2023-04-04 18:23:00 97 /min r/a [facility] Systolic blood pressure 2023-01-09 21:06:00 111 mm[Hg] [facility] Diastolic blood pressure 2023-01-09 21:06:00 80 mm[Hg] [facility] Heart rate 2023-01-09 21:06:00 74 /min [facility] Body temperature 2023-01-09 21:06:00 36.78 Ashlee [facility] Respiratory rate 2023-01-09 21:06:00 18 /min [facility] Body height 2023-01-09 21:06:00 165.1 cm [facility] Body weight 2023-01-09 21:06:00 93.895 kg [facility] BMI 2023-01-09 21:06:00 34.45 kg/m2 [facility] Systolic blood pressure 2022-12-20 17:43:00 112 mm[Hg] [facility] Diastolic blood pressure 2022-12-20 17:43:00 77 mm[Hg] [facility] Heart rate 2022-12-20 17:43:00 84 /min [facility] Body temperature 2022-12-20 17:43:00 36.56 Ashlee [facility] Respiratory rate 2022-12-20 17:43:00 17 /min [facility] Body height 2022-12-20 17:43:00 165.1 cm [facility] Body weight 2022-12-20 17:43:00 91.627 kg [facility] BMI 2022-12-20 17:43:00 33.61 kg/m2 [facility] Oxygen saturation in Arterial blood by Pulse oximetry 2022-12-20 17:43:00 99 /min room air [facility] Systolic blood pressure 2022-12-08 14:47:00 100 mm[Hg] [facility] Diastolic blood pressure 2022-12-08 14:47:00 68 mm[Hg] [facility] Heart rate 2022-12-08 14:47:00 82 /min [facility] Body temperature 2022-12-08 14:47:00 36.56 Ashlee [facility] Respiratory rate 2022-12-08 14:47:00 16 /min [facility] Body height 2022-12-08 14:47:00 165.1 cm [facility] Body weight 2022-12-08 14:47:00 95.029 kg [facility] BMI 2022-12-08 14:47:00 34.86 kg/m2 [facility] Oxygen saturation in Arterial blood by Pulse oximetry 2022-12-08 14:47:00 96 /min [facility] Systolic blood pressure 2022-10-13 20:13:00 117 mm[Hg] [facility] Diastolic blood pressure 2022-10-13 20:13:00 72 mm[Hg] [facility] Heart rate 2022-10-13 20:13:00 97 /min [facility] Body temperature 2022-10-13 20:13:00 37.11 Ashlee [facility] Body height 2022-10-13 20:13:00 165.1 cm [facility] Body weight 2022-10-13 20:13:00 94.348 kg [facility] BMI 2022-10-13 20:13:00 34.61 kg/m2 [facility] Oxygen saturation in Arterial blood by Pulse oximetry 2022-10-13 20:13:00 96 /min [facility] Systolic blood pressure 2022-10-07 18:04:00 127 mm[Hg] [facility] Diastolic blood pressure 2022-10-07 18:04:00 82 mm[Hg] [facility] Heart rate 2022-10-07 18:04:00 85 /min [facility] Body temperature 2022-10-07 18:04:00 36.33 Ashlee [facility] Respiratory rate 2022-10-07 18:04:00 16 /min [facility] Body height 2022-10-07 18:04:00 165.1 cm [facility] Body weight 2022-10-07 18:04:00 94.756 [facility] BMI 2022-10-07 18:04:00 34.76 kg/m2 [facility] Oxygen saturation in Arterial blood by Pulse oximetry 2022-10-07 18:04:00 98 /min [facility] Systolic blood pressure 2022-10-05 18:34:00 103 mm[Hg] [facility] Diastolic blood pressure 2022-10-05 18:34:00 71 mm[Hg] [facility] Heart rate 2022-10-05 18:34:00 70 /min [facility] Body temperature 2022-10-05 18:34:00 36.67 Ashlee [facility] Respiratory rate 2022-10-05 18:34:00 18 /min [facility] Body height 2022-10-05 18:34:00 165.1 cm [facility] Body weight 2022-10-05 18:34:00 93.441 kg [facility] BMI 2022-10-05 18:34:00 34.28 kg/m2 [facility] Systolic blood pressure 2022-07-20 15:10:00 124 mm[Hg] [facility] Diastolic blood pressure 2022-07-20 15:10:00 80 mm[Hg] [facility] Heart rate 2022-07-20 15:10:00 60 /min [facility] Body temperature 2022-07-20 15:10:00 36.72 Ashlee [facility] Body height 2022-07-20 15:10:00 165.1 cm [facility] Body weight 2022-07-20 15:10:00 95.255 kg [facility] BMI 2022-07-20 15:10:00 34.95 kg/m2 [facility] Oxygen saturation in Arterial blood by Pulse oximetry 2022-07-20 15:10:00 96 /min [facility] Systolic blood pressure 2022-06-14 19:23:00 126 mm[Hg] [facility] Diastolic blood pressure 2022-06-14 19:23:00 78 mm[Hg] [facility] Heart rate 2022-06-14 19:23:00 68 /min [facility] Body temperature 2022-06-14 19:23:00 36.72 Ashlee [facility] Respiratory rate 2022-06-14 19:23:00 18 /min [facility] Body height 2022-06-14 19:23:00 165.1 cm [facility] weight 2022-06-14 19:23:00 94.892 kg [facility] BMI 2022-06-14 19:23:00 34.81 kg/m2 [facility] Height/Length Measured 2021-08-05 08:48:40 165 cm Weight Dosing 2021-08-05 08:48:40 89.3 kg Weight Dosing 2021-08-05 08:48:12 89.3 kg Height/Length Measured 2021-08-05 08:48:12 165 cm Height/Length Measured 2020-05-28 12:53:26 Weight Dosing 2020-05-28 12:53:26 Procedures Procedure Date / Time Performed Performing Clinician Source XR CHEST 2 VW 2023-06-14 22:45:07 Janel Snow [facility] FLU VACC ([id number]), 6 MO-64 YRS, .5ML, IM, QUAD (FLUCELVAX) 2023-06-14 22:11:49 Janel Snow [facility] EXTERNAL PROVIDER RECORDS 2023-05-30 06:01:00 Do ctor Unassigned, [place] [facility] CONSENT/REFUSAL FOR DIAGNOSIS AND TREATMENT 2023-04-04 18:16:34 Doctor Unassigned, [place] [facility] INSURANCE CORRESPONDENCE 2023-02-28 05:01:00 Doc tor Unassigned, [place] [facility] XR HIPS 2 VW RIGHT 2023-01-09 20:44:00 Franko Thakur [facility] REFERRAL- REQUEST/RESPONSE 2022-12-16 05:01:00 Doctor Unassigned, [place] [facility] REFERRAL- REQUEST/RESPONSE 2022-11-14 05:01:00 Doctor Unassigned, [place] [facility] DEXA AXIAL (HIP AND SPINE) 2022-10-24 19:39:07 Manisha Norris [facility] ASSIGNMENT OF BENEFITS 2022-10-24 19:04:26 Docto r Unassigned, [place] [facility] POCT MOLECULAR FLU 2022-10-13 20:23:00 Babita Saldana [facility] POCT MOLECULAR STREP 2022-10-13 20:11:00 Kya Saldana [facility] PATIENT FINANCIAL POLICY 2022-10-05 17:55:40 Doctor Unassigned, [place] [facility] REFERRAL- REQUEST/RESPONSE 2022-09-23 06:01:00 Doctor Unassigned, [place] [facility] EXTERNAL PROVIDER RECORDS 2022-08-30 06:01:00 Do ctor Unassigned, [place] [facility] REFERRAL- REQUEST/RESPONSE 2022-07-07 06:01:00 Doctor Unassigned, [place] [facility] EXTERNAL PROVIDER RECORDS 2022-06-23 06:01:00 Do ctor Unassigned, [place] [facility] REFERRAL- REQUEST/RESPONSE 2022-06-02 06:01:00 Doctor Unassigned, [place] [facility] REFERRAL- REQUEST/RESPONSE 2022-05-11 05:01:00 Doctor Unassigned, [place] [facility] DME/SUPPLY JUSTIFICATION 2022-04-28 05:01:00 Johnnie leo Unassigned, [place] [facility] PHYSICIAN ORDERS 2022-04-12 05:01:00 Doctor Unas signed, [place] [facility] FLU VACC (), 6 MO-64 YRS, .5ML, IM, QUAD (FLUCELVAX) 2022-04-08 19:25:44 Manisha Norris [facility] SARS-COV-2 COVID-19 VACCINE 18 YRS+, BIVALENT 0.5ML, IM (MODERNA BOOSTER) 2022-04-08 19:25:44 Manisha Norris [facility] INSURANCE CORRESPONDENCE 2022-04-04 05:01:00 Johnnie leo Unassigned, [place] [facility] HOME HEALTH - OTHER 2022-03-24 05:01:00 Doctor Donna ty, [place] [facility] INSURANCE CORRESPONDENCE 2022-03-08 05:01:00 Johnnie leo Unassigned, [place] [facility] Encounters Start Date/Time End Date/Time Encounter Type Admission Type Attending [facility] Care Facility Care Department Encounter ID Source 2022-12-19 08:36:01 Outpatient Franko Thakur [facility] [id number] [facility] 2022-11-29 07:06:00 Outpatient Franko Thakur [facility] [id number] [facility] 2022-05-23 11:12:01 Outpatient Franko Thakur [facility] [id number] [facility] 2020-05-28 14:35:00 Inpatient Corwin Manjarrez, Corwin [facility] [id number] [facility] 2024-06-06 15:40:00 2024-06-06 15:40:00 Outpatient R JANEL SNOW [facility] [id number] [facility] 2023-10-10 14:00:00 2023-10-10 14:00:00 Outpatient R BELTRAN-ALEX S, RIVKA BELTRAN-ALEX S, RIVKA [facility] [id number] [facility] 2023-10-06 13:15:00 2023-10-06 13:15:00 Outpatient MANISHA ALONZO LAURA [facility] [id number] [facility] 2023-07-28 11:30:00 2023-07-28 11:30:00 Outpatient R BELTRAN-ALEX S, RIVKA BELTRAN-ALEX S, RIVKA [facility] [id number] [facility] 2023-07-14 00:00:00 2023-07-14 00:00:00 Outpatient BillyAmanda [facility] [id number] [facility] 2023-07-06 00:00:00 2023-07-06 00:00:00 Patient Secure Manisha Pathak [facility] 1.840.114 350.1.13.10 4.2.7.2.686 [id number] [facility] 2023-07-04 00:00:00 2023-07-04 00:00:00 Patient Secure Manisha Tran [facility] 1.2840.114 350.1.13.10 4.2.7.2.686 [id number] [facility] 2023-07-04 00:00:00 2023-07-04 00:00:00 Manisha Wisdom [facility] 1.2840.114 350.1.13.10 4.2.7.2.686 [id number] [facility] 2023-06-26 00:00:00 2023-06-26 00:00:00 Patient Secure Msg Doctor Unassigned, [place] [facility] 1.84.114 350.1.13.10 4.2.7.2.686 [id number] [facility] 2023-06-14 16:28:25 2023-06-14 23:59:00 Hospital Encounter Janel Snow [facility] 1.84.114 350.1.13.10 4.2.7.2.686 [id number] [facility] 2023-06-14 15:40:00 2023-06-14 16:19:45 Outpatient R JANEL SNOW [facility] [id number] [facility] 2023-06-14 15:40:00 2023-06-14 16:19:45 Office Visit Janel Snow Bonny [facility] 1.84.114 350.1.13.10 4.2.7.2.686 [id number] [facility] 2023-06-12 13:30:00 2023-06-12 13:30:00 Outpatient R FRANKO THAKUR [facility] [id number] [facility] 2023-05-30 00:00:00 2023-05-30 00:00:00 Orders Only Doctor Unassigned, [place] [facility] 1.84.114 350.1.13.10 4.2.7.2.686 [id number] [facility] 2023-05-27 00:00:00 2023-05-27 00:00:00 Patient Secure Msg Manisha Norris [facility] 1.2.840.114 350.1.13.10 4.2.7.2.686 [id number] [facility] 2023-05-22 00:00:00 2023-05-22 00:00:00 Patient Secure g Manisha Norris [facility] 1.2.840.114 350.1.13.10 4.2.7.2.686 [id number] [facility] 2023-05-21 00:00:00 2023-05-21 00:00:00 Patient Secure g Manisha Norris [facility] 1.2840.114 350.1.13.10 4.2.7.2.686 [id number] [facility] 2023-05-03 00:00:00 2023-05-03 00:00:00 Outpatient R JANEL SNOW [facility] [id number] [facility] 2023-05-01 00:00:00 2023-05-01 00:00:00 David Rogers [facility] 1.2840.114 350.1.13.10 4.2.7.2.686 [id number] [facility] 2023-05-01 00:00:00 2023-05-01 00:00:00 Patient Secure g Manisha Norris [facility] 1.2.840.114 350.1.13.10 4.2.7.2.686 [id number] [facility] 2023-04-13 00:00:00 2023-04-13 00:00:00 Telephone [facility] 1.2840.114 350.1.13.10 4.2.7.2.686 [id number] [facility] 2023-04-10 00:00:00 2023-04-10 00:00:00 Telephone Gwendolyn Janel M [facility] 1.2.840.114 350.1.13.10 4.2.7.2.686 [id number] [facility] 2023-04-04 14:15:00 2023-04-04 14:30:00 Home Hospice Rn Visit Pcp-Lab Manisha Norris [facility] 1.2840.114 350.1.13.10 4.2.7.2.686 [id number] [facility] 2023-04-04 14:15:00 2023-04-04 14:15:00 Outpatient R MANISHA NORRIS LAURA [facility] [id number] [facility] 2023-04-04 13:45:00 2023-04-04 14:06:20 Office Visit Manisha Norris [facility] 1.2840.114 350.1.13.10 4.2.7.2.686 [id number] [id number] [facility] 2023-04-04 00:00:00 2023-04-04 00:00:00 Orders Only Doctor Unassigned, [place] [facility] 1.2.840.114 350.1.13.10 4.2.7.2.686 [id number] [facility] 2023-04-04 00:00:00 2023-04-04 00:00:00 Patient Secure Msg Manisha Norris [facility] 1.2.840.114 350.1.13.10 4.2.7.2.686 [id number] [id number] [facility] 2023-03-23 00:00:00 2023-03-23 00:00:00 Refill Manisha Norris [facility] 1.2.840.114 350.1.13.10 4.2.7.2.686 [id number] [facility] 2023-03-23 00:00:00 2023-03-23 00:00:00 Manisha Wisdom [facility] 1..114 350.1.13.10 4.2.7.2.686 [id number] [id number] [facility] 2023-03-21 00:00:00 2023-03-21 00:00:00 Telephone Janel Snow [facility] 1.114 350.1.13.10 4.2.7.2.686 [id number] [facility] 2023-02-28 00:00:00 2023-02-28 00:00:00 Orders Only Doctor Unassigned, [place] [facility] 1..114 350.1.13.10 4.2.7.2.686 [id number] [facility] 2023-01-18 13:00:00 2023-01-18 13:00:00 Outpatient FRANKO SMITH [facility] [id number] [facility] 2023-01-09 15:06:46 2023-01-09 23:59:00 Outpatient FRANKO SMITH [facility] [id number] [facility] 2023-01-09 15:00:00 2023-01-09 23:59:00 Hospital Encounter Franko Thakur [facility] 1.114 350.1.13.10 4.2.7.2.686 [id number] [facility] 2023-01-09 16:00:00 2023-01-09 16:26:29 Office Visit Rivka Solo [facility] 1..114 350.1.13.10 4.2.7.2.686 [id number] [facility] 2023-01-04 00:00:00 2023-01-04 00:00:00 Telephone Janel Snow Bonny [facility] 1.84.114 350.1.13.10 4.2.7.2.686 [id number] [id number] [facility] 2023-01-03 11:15:00 2023-01-03 11:15:00 Outpatient R JANEL SNOW [facility] [id number] [facility] 2022-12-30 00:00:00 2022-12-30 00:00:00 Telephone Janel Snow [facility] 1..114 350.1.13.10 4.2.7.2.686 [id number] [facility] 2022-12-20 13:15:00 2022-12-20 13:45:00 Office Visit Manisha Norris [facility] 1.114 350.1.13.10 4.2.7.2.686 [id number] [id number] [facility] 2022-12-20 13:15:00 2022-12-20 13:15:00 Outpatient R MANISHA NORRIS [facility] [id number] [facility] 2022-12-20 00:00:00 2022-12-20 00:00:00 Telephone Janel Sonw [facility] 1.84114 350.1.13.10 4.2.7.2.686 [id number] [id number] [facility] 2022-12-16 00:00:00 2022-12-16 00:00:00 Orders Only Doctor Unassigned, [place] [facility] 1..114 350.1.13.10 4.2.7.2.686 [id number] [facility] 2022-12-14 12:48:38 2022-12-14 23:59:00 Hospital Encounter Rosales Chiu [facility] 1.2840.114 350.1.13.10 4.2.7.2.686 [id number] [facility] 2022-12-14 12:48:14 2022-12-14 23:59:00 Outpatient R ARAM [facility] [id number] [facility] 2022-12-14 12:48:14 2022-12-14 23:59:00 Hospital Encounter [facility] 1.840.114 350.1.13.10 4.2.7.2.686 [id number] [facility] 2022-12-08 10:45:00 2022-12-08 11:00:00 Home Hospice Rn Visit Lab, Ang - Janel Ng [facility] 1..840.114 350.1.13.10 4.2.7.2.686 [id number] [facility] 2022-12-08 09:40:00 2022-12-08 10:34:05 Outpatient R JANEL SNOW [facility] [id number] [facility] 2022-12-08 09:40:00 2022-12-08 10:34:05 Office Visit Janel Snow [facility] 1.840.114 350.1.13.10 4.2.7.2.686 [id number] [facility] 2022-11-30 00:00:00 2022-11-30 00:00:00 Manisha Wisdom [facility] 1.2.840.114 350.1.13.10 4.2.7.2.686 [id number] [facility] 2022-11-21 00:00:00 2022-11-21 00:00:00 Refill Manisha Norris [facility] 1.2.840.114 350.1.13.10 4.2.7.2.686 [id number] [id number] [facility] 2022-11-15 00:00:00 2022-11-15 00:00:00 Telephone SmileyUmberto [facility] 1.2840.114 350.1.13.10 4.2.7.2.686 [id number] [facility] 2022-11-14 00:00:00 2022-11-14 00:00:00 Orders Only Doctor Unassigned, [place] [facility] 1.2840.114 350.1.13.10 4.2.7.2.686 [id number] [facility] 2022-10-24 14:05:22 2022-10-24 23:59:00 Outpatient R MANISHA NORRIS [facility] [id number] [facility] 2022-10-24 14:05:22 2022-10-24 23:59:00 Hospital Encounter Manisha Norris [facility] 1.2840.114 350.1.13.10 4.2.7.2.686 [id number] [facility] 2022-10-24 00:00:00 2022-10-24 00:00:00 Orders Only Doctor Unassigned, [place] [facility] 1.2840.114 350.1.13.10 4.2.7.2.686 [id number] [facility] 2022-10-13 15:00:00 2022-10-13 15:44:45 Outpatient R BABITA SALDANA, [facility] [id number] [facility] 2022-10-13 15:00:00 2022-10-13 15:44:45 [facility] 1.2.840.114 350.1.13.10 4.2.7.2.686 [id number] [id number] [facility] 2022-10-13 00:00:00 2022-10-13 00:00:00 Telephone Aram [facility] 1.2.840.114 350.1.13.10 4.2.7.2.686 [id number] [facility] 2022-10-12 00:00:00 2022-10-12 00:00:00 Telephone Rosales Chiu [facility] 1.2.840.114 350.1.13.10 4.2.7.2.686 [id number] [facility] 2022-10-11 00:00:00 2022-10-11 00:00:00 Manisha Wisdom [facility] 1.2.840.114 350.1.13.10 4.2.7.2.686 [id number] [id number] [facility] 2022-10-07 14:15:00 2022-10-07 14:30:00 Home Hospice Rn Visit Pcp-Lab Manisha Norris [facility] 1.2.840.114 350.1.13.10 4.2.7.2.686 [id number] [facility] 2022-10-07 13:45:00 2022-10-07 13:56:24 Outpatient R MANISHA NORRIS [facility] [id number] [facility] 2022-10-07 13:45:00 2022-10-07 13:56:24 Office Visit Manisha Norris [facility] 1.2840.114 350.1.13.10 4.2.7.2.686 [id number] [id number] [facility] 2022-10-07 00:00:00 2022-10-07 00:00:00 Telephone Rosales Chiu [facility] 1.2.840.114 350.1.13.10 4.2.7.2.686 [id number] [facility] 2022-10-05 13:30:00 2022-10-05 14:14:44 Outpatient R ALLEGRAROSALES SCOTT [facility] [id number] [facility] 2022-10-05 13:30:00 2022-10-05 14:14:44 Office Visit Aram [facility] 1.2840.114 350.1.13.10 4.2.7.2.686 [id number] [facility] 2022-10-05 00:00:00 2022-10-05 00:00:00 Orders Only Doctor Unassigned, [place] [facility] 1.2840.114 350.1.13.10 4.2.7.2.686 [id number] [facility] 2022-10-03 15:00:00 2022-10-03 15:00:00 Outpatient R LICO WHITE YU [facility] [id number] [facility] 2022-09-23 00:00:00 2022-09-23 00:00:00 Orders Only Doctor Unassigned, [place] [facility] 1.2840.114 350.1.13.10 4.2.7.2.686 [id number] [facility] 2022-09-15 00:00:00 2022-09-15 00:00:00 Patient Secure Msg Franko Thkaur [facility] 1.2.840.114 350.1.13.10 4.2.7.2.686 [id number] [facility] 2022-09-13 00:00:00 2022-09-13 00:00:00 Patient Secure Msg Franko Thakur [facility] 1.2.840.114 350.1.13.10 4.2.7.2.686 [id number] [facility] 2022-09-12 00:00:00 2022-09-12 00:00:00 Patient Secure Franko Mcrae [facility] 1.2.840.114 350.1.13.10 4.2.7.2.686 [id number] [id number] [facility] 2022-09-06 00:00:00 2022-09-06 00:00:00 Telephone Franko Thakur [facility] 1.2.840.114 350.1.13.10 4.2.7.2.686 [id number] [facility] 2022-09-06 00:00:00 2022-09-06 00:00:00 Patient Secure Franko Mcrae [facility] 1.2.840.114 350.1.13.10 4.2.7.2.686 [id number] [id number] [facility] 2022-08-31 14:30:00 2022-08-31 14:30:00 Outpatient ROSALES GUZMAN [facility] [id number] [facility] 2022-08-30 00:00:00 2022-08-30 00:00:00 Orders Only Doctor Unassigned, [place] [facility] 1.2.840.114 350.1.13.10 4.2.7.2.686 [id number] [facility] 2022-08-24 00:00:00 2022-08-24 00:00:00 Manisha Wisdom [facility] 1.2840.114 350.1.13.10 4.2.7.2.686 [id number] [id number] [facility] 2022-07-20 09:30:00 2022-07-20 09:45:00 Office Visit Franko Thakur [facility] 1.84.114 350.1.13.10 4.2.7.2.686 [id number] [id number] [facility] 2022-07-20 09:30:00 2022-07-20 09:30:50 Outpatient R FRANKO THAKUR [facility] [id number] [facility] 2022-07-07 00:00:00 2022-07-07 00:00:00 Orders Only Doctor Unassigned, [place] [facility] 1..114 350.1.13.10 4.2.7.2.686 [id number] [id number] [facility] 2022-06-30 00:00:00 2022-06-30 00:00:00 Telephone Umberto Saul [facility] 1.84.114 350.1.13.10 4.2.7.2.686 [id number] [facility] 2022-06-27 00:00:00 2022-06-27 00:00:00 Telephone Umberto Saul [facility] 1.840.114 350.1.13.10 4.2.7.2.686 [id number] [facility] 2022-06-24 00:00:00 2022-06-24 00:00:00 Telephone SmileyUmberto [facility]ILD[facility] 1.84.114 350.1.13.10 4.2.7.2.686 [id number] [facility] 2022-06-23 00:00:00 2022-06-23 00:00:00 Orders Only Doctor Unassigned, [place] [facility] 1..114 350.1.13.10 4.2.7.2.686 [id number] [facility] 2022-06-21 00:00:00 2022-06-21 00:00:00 Patient Secure Msg Doctor Unassigned, [place] [facility] 1.84.114 350.1.13.10 4.2.7.2.686 [id number] [facility] 2022-06-15 14:20:00 2022-06-15 14:20:00 Outpatient R SUNIL NAQVI [facility] [id number] [facility] 2022-06-14 16:15:00 2022-06-14 16:15:00 Office Visit Aram Rosales [facility] 1..840.114 350.1.13.10 4.2.7.2.686 [id number] [facility] 2022-06-14 16:15:00 2022-06-14 13:57:54 Outpatient R ARAM [facility] [id number] [facility] 2022-06-14 00:00:00 2022-06-14 00:00:00 Telephone [facility] 1..840.114 350.1.13.10 4.2.7.2.686 [id number] [facility] 2022-06-02 00:00:00 2022-06-02 00:00:00 Orders Only Doctor Unassigned, [place] [facility] 1.2.840.114 350.1.13.10 4.2.7.2.686 [id number] [facility] 2022-05-30 00:00:00 2022-05-30 00:00:00 Telephone Umberto Saul [facility] BUILD[facility] 1.2840.114 350.1.13.10 4.2.7.2.686 [id number] [facility] 2022-05-11 00:00:00 2022-05-11 00:00:00 Orders Only Doctor Unassigned, [place] [facility] 1.2.840.114 350.1.13.10 4.2.7.2.686 [id number] [facility] 2022-05-03 00:00:00 2022-05-03 00:00:00 Telephone Umberto Saul [facility] BUILD[facility] 1.2840.114 350.1.13.10 4.2.7.2.686 [id number] 198 [id number] [facility] 2022-04-28 00:00:00 2022-04-28 00:00:00 Orders Only Doctor Unassigned, [place] [facility] 1.2840.114 350.1.13.10 4.2.7.2.686 [id number] [id number] [facility] 2022-04-26 00:00:00 2022-04-26 00:00:00 Telephone Leela Bonilla [facility] 1.2840.114 350.1.13.10 4.2.7.2.686 [id number] [facility] 2022-04-12 00:00:00 2022-04-12 00:00:00 Orders Only Doctor Unassigned, [place] [facility] 1.840.114 350.1.13.10 4.2.7.2.686 [id number] [id number] [facility] 2022-04-11 00:00:00 2022-04-11 00:00:00 Telephone Franko Thakur [facility] L[facility] 1.840.114 350.1.13.10 4.2.7.2.686 [id number] [id number] [facility] 2022-04-08 14:45:00 2022-04-08 15:00:00 Home Hospice Rn Visit Pcp-Manisha Shields [facility] 1..840.114 350.1.13.10 4.2.7.2.686 [id number] [facility] 2022-04-08 13:45:00 2022-04-08 14:35:25 Outpatient MANISHA ALONZO [facility] [id number] [facility] 2022-04-08 13:45:00 2022-04-08 14:35:25 Office Visit Manisha Norris [facility] 1..840.114 350.1.13.10 4.2.7.2.686 [id number] [facility] 2022-04-08 13:45:00 2022-04-08 13:45:00 Outpatient MANISHA ALONZO [facility] [id number] [facility] 2022-04-08 13:45:00 2022-04-08 13:45:00 Outpatient MANISHA ALONZO [facility] [id number] [facility] 2022-04-08 13:45:00 2022-04-08 13:45:00 Outpatient MANISHA ALONZO [facility] [id number] [facility] 2022-04-08 13:45:00 2022-04-08 13:45:00 Outpatient MANISHA ALONZO [facility] [id number] [facility] 2022-04-08 13:45:00 2022-04-08 13:45:00 Outpatient MANISHA ALONZO [facility] [id number] [facility] 2022-04-04 00:00:00 2022-04-04 00:00:00 Orders Only Doctor Unassigned, [place] [facility] 1.2840.114 350.1.13.10 4.2.7.2.686 [id number] [id number] [facility] 2022-03-28 00:00:00 2022-03-28 00:00:00 Telephone Umberto Saul [facility] 1.840.114 350.1.13.10 4.2.7.2.686 [id number] [facility] 2022-03-25 00:00:00 2022-03-25 00:00:00 Refill Guerita Alonso [facility] 1.840.114 350.1.13.10 4.2.7.2.686 [id number] [facility] 2022-03-24 00:00:00 2022-03-24 00:00:00 Orders Only Doctor Unassigned, [place] [facility] 1.840.114 350.1.13.10 4.2.7.2.686 [id number] [facility] 2022-03-22 00:00:00 2022-03-22 00:00:00 Patient Secure [facility] 1.840.114 350.1.13.10 4.2.7.2.686 [id number] [facility] 2022-03-18 00:00:00 2022-03-18 00:00:00 Patient Secure Msg Manisha Norris [facility] 1.840.114 350.1.13.10 4.2.7.2.686 [id number] [facility] 2022-03-17 13:00:00 2022-03-17 13:15:00 Office Visit Annabelle [facility] 1.840.114 350.1.13.10 4.2.7.2.686 [id number] [facility] 2022-03-17 13:00:00 2022-03-17 13:00:00 Outpatient R DIXIE ALANIS [facility] [id number] [facility] 2022-03-15 00:00:00 2022-03-15 00:00:00 Outpatient R ARAM [facility] [id number] [facility] 2022-03-15 00:00:00 2022-03-15 00:00:00 Outpatient R ARAM [facility] [id number] [facility] 2022-03-15 00:00:00 2022-03-15 00:00:00 Outpatient R ARAM [facility] [id number] [facility] 2022-03-09 00:00:00 2022-03-09 00:00:00 Patient Secure Msg Annabelle [facility] 1.840.114 350.1.13.10 4.2.7.2.686 [id number] [facility] 2022-03-08 00:00:00 2022-03-08 00:00:00 Telephone Franko Thakur [facility] 1..840.114 350.1.13.10 4.2.7.2.686 [id number] [id number] [facility] 2022-03-08 00:00:00 2022-03-08 00:00:00 Orders Only Doctor Unassigned, [place] [facility] 1.2.840.114 350.1.13.10 4.2.7.2.686 [id number] [facility] 2022-03-07 00:00:00 2022-03-07 00:00:00 Orders Only Doctor Unassigned, [place] [facility] 1.2840.114 350.1.13.10 4.2.7.2.686 [id number] [facility] 2022-03-04 00:00:00 2022-03-04 00:00:00 Patient Secure Msg Manisha Norris [facility] 1.2840.114 350.1.13.10 4.2.7.2.686 [id number] [id number] [facility] 2022-03-04 00:00:00 2022-03-04 00:00:00 Orders Only Doctor Unassigned, [place] [facility] 1.2840.114 350.1.13.10 4.2.7.2.686 [id number] [id number] [facility] 2022-03-03 00:00:00 2022-03-03 00:00:00 Patient Secure Msg Doctor Unassigned, [place] [facility] 1.2840.114 350.1.13.10 4.2.7.2.686 [id number] [facility] 2022-02-28 00:00:00 2022-02-28 00:00:00 Dixie [facility] 1.2840.114 350.1.13.10 4.2.7.2.686 [id number] [facility] 2022-02-25 09:05:00 2022-02-25 23:59:00 Outpatient DIXIE BENSON [facility] [id number] [facility] 2022-02-25 09:05:00 2022-02-25 23:59:00 Outpatient DIXIE BENSON [facility] [id number] [facility] 2022-02-25 09:30:00 2022-02-25 09:45:00 Office Visit Dixie Alanis [facility]?YESENIAGeoffrey [facility] 1.2.840.114 350.1.13.10 4.2.7.2.686 [id number] [facility] 2022-02-25 09:30:00 2022-02-25 09:30:00 Outpatient Tere ALANIS DIXIE [facility] [id number] [facility] 2022-02-24 00:00:00 2022-02-24 00:00:00 Telephone Umberto Saul [facility] 1..840.114 350.1.13.10 4.2.7.2.686 [id number] [facility] 2022-02-20 00:00:00 2022-02-20 00:00:00 Franko Nguyễn [facility] 1..840.114 350.1.13.10 4.2.7.2.686 [id number] [facility] 2022-02-15 00:00:00 2022-02-15 00:00:00 Orders Only Doctor Unassigned, [place] [facility] 1.840.114 350.1.13.10 4.2.7.2.686 [id number] [facility] 2022-02-14 14:40:00 2022-02-14 23:59:00 Outpatient DIXIE BENSON [facility] [id number] [facility] 2022-02-14 14:40:00 2022-02-14 23:59:00 Outpatient Tere ALANIS DIXIE [facility] [id number] [facility] 2022-02-14 14:40:00 2022-02-14 23:59:00 Outpatient Tere [facility] [id number] [facility] 2022-02-14 14:00:00 2022-02-14 15:49:45 Outpatient Tere ALANIS [facility] [id number] [facility] 2022-02-14 14:00:00 2022-02-14 15:49:45 Office Visit Umberto Saul [facility]?YESENIAGeoffrey [facility] 1.84.114 350.1.13.10 4.2.7.2.686 [id number] [facility] 2022-02-14 00:00:00 2022-02-14 00:00:00 Orders Only Doctor Unassigned, [place] [facility] 1.20.114 350.1.13.10 4.2.7.2.686 [id number] [facility] 2022-02-11 00:00:00 2022-02-11 00:00:00 Orders Only Doctor Unassigned, [place] [facility] 1.2840.114 350.1.13.10 4.2.7.2.686 [id number] [facility] 2022-02-09 00:00:00 2022-02-09 00:00:00 Telephone Franko Thakur [facility] 1.840.114 350.1.13.10 4.2.7.2.686 [id number] 044 [id number] [facility] 2022-02-08 00:00:00 2022-02-08 00:00:00 [facility] 1.84.114 350.1.13.10 4.2.7.2.686 [id number] [id number] [facility] 2022-02-08 00:00:00 2022-02-08 00:00:00 Telephone Umberto Saul [facility] 1.840.114 350.1.13.10 4.2.7.2.686 [id number] [facility] 2022-02-07 13:30:00 2022-02-07 13:30:00 Outpatient Tere ALANIS DIXIE [facility] [id number] [facility] 2022-02-07 13:30:00 2022-02-07 13:30:00 Outpatient DIXIE BENSON [facility] [id number] [facility] 2022-02-07 13:30:00 2022-02-07 13:30:00 Outpatient DIXIE BENSON [facility] [id number] [facility] 2022-02-07 13:30:00 2022-02-07 13:30:00 Outpatient DIXIE BENSON [facility] [id number] [facility] 2022-02-07 13:30:00 2022-02-07 13:30:00 Outpatient DIXIE BENSON [facility] [id number] [facility] 2022-02-07 00:00:00 2022-02-07 00:00:00 Franko Nguyễn [facility] 1.840.114 350.1.13.10 4.2.7.2.686 [id number] [facility] 2022-02-07 00:00:00 2022-02-07 00:00:00 Telephone Umberto Saul [facility] 1.840.114 350.1.13.10 4.2.7.2.686 [id number] [facility] 2022-02-06 00:00:00 2022-02-06 00:00:00 Orders Only Doctor Unassigned, [place] [facility] 1.2.840.114 350.1.13.10 4.2.7.2.686 [id number] [facility] 2022-02-03 00:00:00 2022-02-03 00:00:00 Telephone Umberto Saul Martha [facility] 1.2.840.114 350.1.13.10 4.2.7.2.686 [id number] [facility] 2022-02-01 00:00:00 2022-02-01 00:00:00 Transition of Kasandra Ware SHERYL HERNANDEZ 1.2.840.114 350.1.13.10 4.2.7.2.686 [id number] [facility] 2022-02-01 00:00:00 2022-02-01 00:00:00 Telephone Smiley Umberto L [facility] 1.2.840.114 350.1.13.10 4.2.7.2.686 [id number] [facility] 2022-01-31 07:00:00 2022-01-31 20:05:00 Outpatient R UMBERTO SAUL [facility] [id number] [facility] 2022-01-31 07:00:00 2022-01-31 20:05:00 Hospital Encounter Umberto Saul [facility] 1.2.840.114 350.1.13.10 4.2.7.2.686 [id number] [facility] 2022-01-31 07:00:00 2022-01-31 20:05:00 Outpatient R UMBERTO SAUL [facility] [id number] [facility] 2022-01-31 07:00:00 2022-01-31 20:05:00 Outpatient R UMBERTO SAUL [facility] [id number] [facility] 2022-01-31 07:00:00 2022-01-31 20:05:00 Outpatient R UMBERTO SAUL [facility] [id number] [facility] 2022-01-31 07:00:00 2022-01-31 20:05:00 Outpatient R UMBERTO SAUL [facility] [id number] [facility] 2022-01-31 09:34:00 2022-01-31 12:12:00 Anesthesia Event Dinh Phillips Fernando [facility] 1.840.114 350.1.13.10 4.2.7.2.686 [id number] [facility] 2022-01-31 09:45:00 2022-01-31 12:11:00 Surgery Umberto Saul [facility] 1.2840.114 350.1.13.10 4.2.7.2.686 [id number] [facility] 2022-01-31 00:00:00 2022-01-31 00:00:00 Orders Only Doctor Unassigned, [place] [facility] 1.2840.114 350.1.13.10 4.2.7.2.686 [id number] [facility] 2022-01-29 00:00:00 2022-01-29 00:00:00 Orders Only Doctor Unassigned, [place] [facility] 1.2840.114 350.1.13.10 4.2.7.2.686 [id number] [id number] [facility] 2022-01-28 10:15:00 2022-01-28 10:30:00 Laboratory Only Only, Adc Test Umberto Saul [facility] 1.2840.114 350.1.13.10 4.2.7.2.686 [id number] [facility] 2022-01-28 10:15:00 2022-01-28 10:15:00 Outpatient R UMBERTO SAUL [facility] [id number] [facility] 2022-01-27 13:00:00 2022-01-27 16:30:58 Outpatient R UMBERTO SAUL [facility] [id number] [facility] 2022-01-27 13:00:00 2022-01-27 16:30:58 Outpatient R UMBERTO SAUL [facility] [id number] [facility] 2022-01-27 15:15:00 2022-01-27 15:30:00 Home Hospice Rn Visit Pokelli, Adc Lab Main Umberto Saul [facility] 1..840.114 350.1.13.10 4.2.7.2.686 [id number] [facility] 2022-01-27 14:46:01 2022-01-27 14:48:00 Outpatient R UMBERTO SAUL [facility] [id number] [facility] 2022-01-27 14:00:00 2022-01-27 14:48:00 Hospital Encounter Umberto Saul [facility] 1..840.114 350.1.13.10 4.2.7.2.686 [id number] [facility] 2022-01-27 13:00:00 2022-01-27 13:45:00 Ancillary Visit Donna LowryJohnwalt Thomas [facility] 1..840.114 350.1.13.10 4.2.7.2.686 [id number] [facility] 2022-01-27 13:00:00 2022-01-27 13:00:00 Outpatient R UMBERTO SAUL [facility] [id number] [facility] 2022-01-27 00:00:00 2022-01-27 00:00:00 Orders Only Doctor Unassigned, [place] [facility] 1.20.114 350.1.13.10 4.2.7.2.686 [id number] [facility] 2022-01-13 00:00:00 2022-01-13 00:00:00 Prep For Surgery Umberto Saul [facility] 1.84.114 350.1.13.10 4.2.7.2.686 [id number] [facility] 2022-01-11 00:00:00 2022-01-11 00:00:00 Orders Only Doctor Unassigned, [place] [facility] 1.20.114 350.1.13.10 4.2.7.2.686 [id number] [id number] [facility] 2022-01-07 00:00:00 2022-01-07 00:00:00 Patient Secure Buddy Zhang [facility] 1..114 350.1.13.10 4.2.7.2.686 [id number] [facility] 2022-01-05 11:26:51 2022-01-05 23:59:00 Outpatient MANISHA ALONZO [facility] [id number] [facility] 2022-01-05 11:26:51 2022-01-05 23:59:00 Outpatient MANISHA ALONZO [facility] [id number] [facility] 2022-01-05 11:26:51 2022-01-05 23:59:00 Hospital Encounter Manisha Norris [facility] 1.2840.114 350.1.13.10 4.2.7.2.686 [id number] [facility] 2022-01-05 11:26:51 2022-01-05 23:59:00 Outpatient MANISHA ALONZO [facility] [id number] [facility] 2022-01-05 11:26:51 2022-01-05 23:59:00 Outpatient MANISHA ALONZO [facility] [id number] [facility] 2022-01-05 11:15:00 2022-01-05 11:16:23 Outpatient MANISHA ALONZO [facility] [id number] [facility] 2022-01-05 11:15:00 2022-01-05 11:16:23 Office Visit Manisha Norris [facility] 1.2.840.114 350.1.13.10 4.2.7.2.686 [id number] [facility] 2022-01-05 11:15:00 2022-01-05 11:15:00 Outpatient MANISHA ALONZO [facility] [id number] [facility] 2022-01-03 14:00:00 2022-01-03 14:15:00 Office Visit Dixie Alanis [facility] 1.2.840.114 350.1.13.10 4.2.7.2.686 [id number] [facility] 2022-01-03 14:00:00 2022-01-03 14:00:00 Outpatient DIXIE BENSON [facility] [id number] [facility] 2021-12-31 00:00:00 2021-12-31 00:00:00 Telephone Umberto Saul [facility]?YESENIAGeoffrey [facility] 1.2.840.114 350.1.13.10 4.2.7.2.686 [id number] [facility] 2021-12-31 00:00:00 2021-12-31 00:00:00 Telephone Buddy [facility] 1.2.840.114 350.1.13.10 4.2.7.2.686 [id number] [facility] 2021-12-31 00:00:00 2021-12-31 00:00:00 Patient Secure Msg Doctor Unassigned, [place] [facility] 1.2.840.114 350.1.13.10 4.2.7.2.686 [id number] [facility] 2021-12-30 00:00:00 2021-12-30 00:00:00 Patient Secure Msg Guan[facility] BUILDING 1.2.840.114 350.1.13.10 4.2.7.2.686 [id number] [facility] 2021-12-30 00:00:00 2021-12-30 00:00:00 Patient Secure Msg Doctor Unassigned, [place] [facility] 1.2.840.114 350.1.13.10 4.2.7.2.686 [id number] [facility] 2021-12-29 15:49:46 2021-12-29 23:59:00 Outpatient R GUANAKO [facility] [id number] [facility] 2021-12-29 15:49:46 2021-12-29 23:59:00 [facility] [id number] 2021-12-15 14:20:00 2021-12-15 14:20:00 Office Visit Guanako [facility] BUILDING 1.2.840.114 350.1.13.10 4.2.7.2.686 [id number] [facility] 2021-12-15 14:20:00 2021-12-15 14:17:40 [facility] [id number] [facility] 2021-12-15 14:20:00 2021-12-15 14:17:40 [facility] [id number] [facility] 2021-12-07 10:15:00 2021-12-07 10:30:00 [facility] 1.20.114 350.1.13.10 4.2.7.2.686 [id number] [facility] 2021-12-07 10:15:00 2021-12-07 10:15:00 Outpatient Tere FRANKO THAKUR [facility] [id number] [facility] 2021-12-03 00:00:00 2021-12-03 00:00:00 Patient Secure g [facility] 1.840.114 350.1.13.10 4.2.7.2.686 [id number] [facility] 2021-12-03 00:00:00 2021-12-03 00:00:00 Orders Only Doctor Unassigned, [place] [facility] 1.20.114 350.1.13.10 4.2.7.2.686 [id number] [id number] [facility] 2021-12-01 00:00:00 2021-12-01 00:00:00 Patient Secure Msg Aram Rosales [facility] 1..114 350.1.13.10 4.2.7.2.686 [id number] [facility] 2021-11-23 14:21:11 2021-11-23 23:59:00 Hospital Encounter Rosales Chiu [facility] 1.20.114 350.1.13.10 4.2.7.2.686 [id number] [facility] 2021-11-23 00:00:00 2021-11-23 23:59:00 [facility] [id number] [facility] 2021-11-23 00:00:00 2021-11-23 23:59:00 Outpatient Tere CHIU [facility] [id number] [facility] 2021-11-23 14:00:00 2021-11-23 14:20:00 Hospital Encounter [facility]am [facility] 1.114 350.1.13.10 4.2.7.2.686 [id number] [facility] 2021-11-23 00:00:00 2021-11-23 14:20:00 Outpatient Tere [facility] [id number] [facility] 2021-11-23 00:00:00 2021-11-23 14:20:00 Outpatient Tere [facility] [id number] [facility] 2021-11-23 00:00:00 2021-11-23 00:00:00 Orders Only Doctor Unassigned, [place] [facility] 1.114 350.1.13.10 4.2.7.2.686 [id number] [id number] [facility] 2021-11-22 00:00:00 2021-11-22 00:00:00 Patient Secure Msg Saúl [facility] 1.84.114 350.1.13.10 4.2.7.2.686 [id number] [facility] 2021-11-22 00:00:00 2021-11-22 00:00:00 Patient Secure Msg Saúl [facility] 1..114 350.1.13.10 4.2.7.2.686 [id number] [id number] [facility] 2021-11-16 00:00:00 2021-11-16 00:00:00 Patient Secure Msg Doctor Unassigned, [place] [facility] 1.2.840.114 350.1.13.10 4.2.7.2.686 [id number] [facility] 2021-11-08 00:00:00 2021-11-08 00:00:00 Patient Secure Msg Doctor Unassigned, [place] [facility] 1.2.840.114 350.1.13.10 4.2.7.2.686 [id number] [facility] 2021-11-05 11:00:00 2021-11-05 11:00:00 Office Visit Umberto Saul [facility] 1.2.840.114 350.1.13.10 4.2.7.2.686 [id number] [facility] 2021-11-05 11:00:00 2021-11-05 09:10:39 Outpatient R UMBERTO SAUL [facility] [id number] [facility] 2021-11-05 11:00:00 2021-11-05 09:10:39 Outpatient UMBERTO LAGOS [facility] [id number] [facility] 2021-11-05 11:00:00 2021-11-05 09:10:39 Outpatient R UMBERTO SAUL [facility] [id number] [facility] 2021-11-05 11:00:00 2021-11-05 09:10:39 Outpatient R UMBERTO SAUL [facility] [id number] [facility] 2021-11-02 00:00:00 2021-11-02 00:00:00 Manisha Bay [facility] 1.2.840.114 350.1.13.10 4.2.7.2.686 [id number] [facility] 2021-10-26 00:00:00 2021-10-26 00:00:00 Patient Secure Msg Manisha Norris [facility] 1.2840.114 350.1.13.10 4.2.7.2.686 [id number] [facility] 2021-10-25 00:00:00 2021-10-25 00:00:00 Manisha Wisdom [facility] 1.2840.114 350.1.13.10 4.2.7.2.686 [id number] [facility] 2021-10-14 00:00:00 2021-10-14 00:00:00 Patient Secure Msg Doctor Unassigned, [place] [facility] 1.2840.114 350.1.13.10 4.2.7.2.686 [id number] [facility] 2021-10-08 00:00:00 2021-10-08 00:00:00 Patient Secure Msg Franko Thakur [facility] 1.840.114 350.1.13.10 4.2.7.2.686 [id number] [facility] 2021-10-07 00:00:00 2021-10-07 00:00:00 Telephone Manisha Norris [facility] 1.0.114 350.1.13.10 4.2.7.2.686 [id number] [facility] 2021-10-07 00:00:00 2021-10-07 00:00:00 Telephone Franko Thakur [facility] 1.840.114 350.1.13.10 4.2.7.2.686 [id number] [facility] 2021-10-05 12:04:52 2021-10-05 23:59:00 Outpatient MANISHA ALONZO [facility] [id number] [facility] 2021-10-05 12:04:52 2021-10-05 23:59:00 Hospital Encounter Manisha Norris [facility] 1.840.114 350.1.13.10 4.2.7.2.686 [id number] [facility] 2021-10-05 12:04:52 2021-10-05 23:59:00 Outpatient MANISHA ALONZO [facility] [id number] [facility] 2021-10-05 12:04:52 2021-10-05 23:59:00 Outpatient MANISHA ALONZO [facility] [id number] [facility] 2021-10-05 12:04:52 2021-10-05 23:59:00 Outpatient MANISHA ALONZO [facility] [id number] [facility] 2021-10-05 12:15:00 2021-10-05 12:30:00 Home Hospice Rn Visit Pcp-Lab Manisha Norris [facility] 1.840.114 350.1.13.10 4.2.7.2.686 [id number] [facility] 2021-10-05 12:15:00 2021-10-05 12:15:00 Outpatient MANISHA ALONZO [facility] [id number] [facility] 2021-10-05 11:15:00 2021-10-05 11:50:24 Office Visit Manisha Norris [facility] 1.840.114 350.1.13.10 4.2.7.2.686 [id number] [facility] 2021-10-04 00:00:00 2021-10-04 00:00:00 Refill Manisha Norris [facility] 1.2.840.114 350.1.13.10 4.2.7.2.686 [id number] [facility] 2021-08-31 00:00:00 2021-08-31 00:00:00 Patient Secure [facility] 1.2.840.114 350.1.13.10 4.2.7.2.686 [id number] [facility] 2021-08-30 00:00:00 2021-08-30 00:00:00 Telephone Gavin [facility] BUILDING 1.2.840.114 350.1.13.10 4.2.7.2.686 [id number] 220 [id number] [facility] 2021-08-24 11:30:00 2021-08-24 12:16:13 [facility] 1.2.840.114 350.1.13.10 4.2.7.2.686 [id number] [facility] 2021-08-24 11:30:00 2021-08-24 12:16:13 Outpatient R GAVIN [facility] [id number] [facility] 2021-08-24 11:30:00 2021-08-24 11:30:00 Outpatient R GAVIN [facility] [id number] [facility] 2021-08-24 00:00:00 2021-08-24 00:00:00 Refill Manisha Norris [facility] 1.2.840.114 350.1.13.10 4.2.7.2.686 [id number] [id number] [facility] 2021-08-13 00:00:00 2021-08-13 00:00:00 Refill Guerita Alonso [facility] BU[facility] 1.2840.114 350.1.13.10 4.2.7.2.686 [id number] [facility] 2021-07-28 10:40:00 2021-07-28 11:00:00 Office Visit Leela Bonilla [facility] 1.20.114 350.1.13.10 4.2.7.2.686 [id number] [facility] 2021-07-28 10:40:00 2021-07-28 10:40:00 [facility] [id number] [facility] 2021-07-28 10:40:00 2021-07-28 10:40:00 [facility] [id number] [facility] 2021-07-28 00:00:00 2021-07-28 00:00:00 Orders Only Doctor Unassigned, [place] [facility] 1.0.114 350.1.13.10 4.2.7.2.686 [id number] [facility] 2021-07-27 00:00:00 2021-07-27 00:00:00 Patient Secure Msg [facility] 1.20.114 350.1.13.10 4.2.7.2.686 [id number] [facility] 2021-07-20 00:00:00 2021-07-20 00:00:00 Orders Only Doctor Unassigned, [place] [facility] 1.2840.114 350.1.13.10 4.2.7.2.686 [id number] [id number] [facility] 2021-07-16 00:00:00 2021-07-16 00:00:00 Telephone Manisha Norris [facility] 1.2.840.114 350.1.13.10 4.2.7.2.686 [id number] [id number] [facility] 2021-07-13 00:00:00 2021-07-13 00:00:00 Telephone Manisha Norris [facility] 1.2.840.114 350.1.13.10 4.2.7.2.686 [id number] [id number] [facility] 2021-07-06 12:14:46 2021-07-06 23:59:00 Hospital Encounter NorrisAnthonygeoffrey Hale [facility] 1.2.840.114 350.1.13.10 4.2.7.2.686 [id number] [facility] 2021-07-06 13:45:00 2021-07-06 14:00:00 Home Hospice Rn Visit Pcp-Lab JrAnthonygeoffrey Hale [facility]UR[facility] 1.2.840.114 350.1.13.10 4.2.7.2.686 [id number] [facility] 2021-07-06 11:15:00 2021-07-06 12:04:47 Outpatient R MANISHA NORRIS [facility] [id number] [facility] 2021-07-06 11:15:00 2021-07-06 12:04:47 Outpatient R MANISHA NORRIS [facility] [id number] [facility] 2021-07-06 11:15:00 2021-07-06 12:04:47 Office Visit Manisha Norris [facility] PAVNABORON 1.2.840.114 350.1.13.10 4.2.7.2.686 [id number] [id number] [facility] 2021-07-06 11:15:00 2021-07-06 11:15:00 Outpatient MANISHA ALONZO [facility] [id number] [facility] 2021-06-29 00:00:00 2021-06-29 00:00:00 Orders Only Doctor Unassigned, [place] [facility] 1..840.114 350.1.13.10 4.2.7.2.686 [id number] [facility] 2021-06-17 00:00:00 2021-06-17 00:00:00 Telephone SaúlFranko [facility] 1..840.114 350.1.13.10 4.2.7.2.686 [id number] [facility] 2021-06-17 00:00:00 2021-06-17 00:00:00 Orders Only Doctor Unassigned, [place] [facility] 1.840.114 350.1.13.10 4.2.7.2.686 [id number] [facility] 2021-06-09 10:20:41 2021-06-09 23:59:00 Outpatient MANISHA ALONZO [facility] [id number] [facility] 2021-06-09 10:20:41 2021-06-09 23:59:00 Outpatient MANISHA ALONZO [facility] [id number] [facility] 2021-06-09 10:20:41 2021-06-09 23:59:00 Outpatient MANISHA ALONZO [facility] [id number] [facility] 2021-06-09 10:20:41 2021-06-09 23:59:00 Outpatient MANISHA ALONZO [facility] [id number] [facility] 2021-06-09 10:20:41 2021-06-09 23:59:00 Hospital Encounter Manisha Norris [facility] 1..840.114 350.1.13.10 4.2.7.2.686 [id number] [facility] 2021-06-09 10:20:27 2021-06-09 23:59:00 Hospital Encounter Manisha Norris Geoffrey [facility]?FRANCISCO [facility] OFFICE BUILDING 1.2.840.114 350.1.13.10 4.2.7.2.686 [id number] [facility] 2021-06-09 12:00:00 2021-06-09 12:00:00 Outpatient MANISHA ALONZO [facility] [id number] [facility] 2021-06-09 10:20:19 2021-06-09 10:35:19 Home Hospice Rn Visit Lab, Guilherme Thakur Franko [facility] BUILD[facility] 1.2.840.114 350.1.13.10 4.2.7.2.686 [id number] [facility] 2021-06-09 09:52:48 2021-06-09 10:07:48 Office Visit Biancaabbirodriguez [facility] BUILD[facility] 1.2.840.114 350.1.13.10 4.2.7.2.686 [id number] [facility] 2021-06-09 10:00:00 2021-06-09 10:00:00 Outpatient FRANKO SMITH [facility] [id number] [facility] 2021-06-08 10:45:00 2021-06-08 11:40:22 Outpatient MANISHA ALONZO [facility] [id number] [facility] 2021-06-08 10:45:00 2021-06-08 11:40:22 Outpatient MANISHA ALONZO [facility] [id number] [facility] 2021-06-08 10:30:31 2021-06-08 11:40:22 Office Visit Manisha Norris [facility] 1.114 350.1.13.10 4.2.7.2.686 [id number] [facility] 2021-06-08 10:45:00 2021-06-08 10:45:00 Outpatient MANISHA ALONZO [facility] [id number] [facility] 2021-06-08 00:00:00 2021-06-08 00:00:00 Telephone Franko Thakur [facility] 1..114 350.1.13.10 4.2.7.2.686 [id number] [facility] 2021-06-08 00:00:00 2021-06-08 00:00:00 Orders Only Doctor Unassigned, [place] [facility] 1..114 350.1.13.10 4.2.7.2.686 [id number] [id number] [facility] 2021-06-07 08:45:00 2021-06-07 08:45:00 Outpatient R FRANKO THAKUR [facility] [id number] [facility] 2021-06-04 00:00:00 2021-06-04 00:00:00 Patient Secure Msg Doctor Unassigned, [place] [facility] 1.114 350.1.13.10 4.2.7.2.686 [id number] [facility] 2021-05-25 14:30:47 2021-05-25 23:59:00 Hospital Encounter Rosales Chiu [facility] 1.114 350.1.13.10 4.2.7.2.686 [id number] [facility] 2021-05-25 14:29:53 2021-05-25 14:29:53 Outpatient ROSALES GUZMAN [facility] [id number] [facility] 2021-05-25 14:29:53 2021-05-25 14:29:53 Hospital Encounter Rosales Chiu [facility] 1.20.114 350.1.13.10 4.2.7.2.686 [id number] [facility] 2021-05-25 00:00:00 2021-05-25 00:00:00 Case Management Rosales Chiu [facility] BUILDING 1.284.114 350.1.13.10 4.2.7.2.686 [id number] [facility] 2021-05-21 11:30:00 2021-05-21 11:30:00 Outpatient R [facility] [id number] [facility] 2021-05-21 11:30:00 2021-05-21 11:30:00 Outpatient R [facility] [id number] [facility] 2021-05-19 00:00:00 2021-05-19 00:00:00 Telephone Franko Thakur [facility] 1.284.114 350.1.13.10 4.2.7.2.686 [id number] [facility] 2021-05-04 00:00:00 2021-05-04 00:00:[address] [facility] 1.2.840.114 350.1.13.10 4.2.7.2.686 [id number] [facility] 2021-04-28 00:00:00 2021-04-28 00:00:00 Orders Only Doctor Unassigned, [place] [facility] 1.2840.114 350.1.13.10 4.2.7.2.686 [id number] [facility] 2021-04-21 14:41:37 2021-04-21 15:01:37 Office Visit Leela Bonilla [facility] 1.84.114 350.1.13.10 4.2.7.2.686 [id number] [facility] 2021-04-21 15:00:00 2021-04-21 15:00:00 Outpatient R LEELA BONILLA STRANMMartha [facility] [id number] [facility] 2021-04-07 19:30:00 2021-04-07 19:30:00 [facility] [id number] [facility] 2021-04-07 14:08:40 2021-04-07 16:38:40 Home Hospice Rn Visit 1, [facility] Sleep Lab Bed Leela Bonilla Fl[facility] 1.840.114 350.1.13.10 4.2.7.2.686 [id number] [facility] 2021-04-06 13:30:00 2021-04-06 14:54:02 Outpatient ROSALES GUZMAN [facility] [id number] [facility] 2021-04-06 13:15:14 2021-04-06 13:45:14 Office Visit Rosales Chiu [facility] 1..114 350.1.13.10 4.2.7.2.686 [id number] [facility] 2021-04-06 13:30:00 2021-04-06 13:30:00 Outpatient ROSALES GUZMAN [facility] [id number] [facility] 2021-04-05 10:13:44 2021-04-05 10:28:44 Laboratory Only Only, Adc Test [facility] 1.840.114 350.1.13.10 4.2.7.2.686 [id number] [facility] 2021-04-05 10:13:44 2021-04-05 10:28:44 Laboratory Only Only, Adc Test [facility] 1.2840.114 350.1.13.10 4.2.7.2.686 [id number] [facility] 2021-04-05 10:15:00 2021-04-05 10:15:00 Outpatient R [facility] [id number] [facility] 2021-04-05 00:00:00 2021-04-05 00:00:00 Orders Only Doctor Unassigned, [place] [facility] 1.2840.114 350.1.13.10 4.2.7.2.686 [id number] [facility] 2021-04-05 00:00:00 2021-04-05 00:00:00 Orders Only Doctor Unassigned, [place] [facility] 1.2840.114 350.1.13.10 4.2.7.2.686 [id number] [facility] 2021-03-24 00:00:00 2021-03-24 00:00:00 Telephone Franko Thakur [facility] 1.84.114 350.1.13.10 4.2.7.2.686 [id number] [facility] 2021-03-24 00:00:00 2021-03-24 00:00:00 Telephone Franko Thakur [facility] Medical Office Building 1.2840.114 350.1.13.10 4.2.7.2.686 [id number] [id number] [facility] 2021-03-23 00:00:00 2021-03-23 00:00:00 Telephone Veselka, Franko [facility]?Francisco [facility] Office Building 1.840.114 350.1.13.10 4.2.7.2.686 [id number] [id number] [facility] 2021-03-10 14:29:05 2021-03-10 14:49:05 Office Visit Leela Bonilla [facility] nal Building 1.2840.114 350.1.13.10 4.2.7.2.686 [id number] [facility] 2021-03-10 14:29:05 2021-03-10 14:49:05 Office Visit Leela Bonilla [facility] Building 1.840.114 350.1.13.10 4.2.7.2.686 [id number] [facility] 2021-03-10 14:40:00 2021-03-10 14:40:00 Outpatient R LEELA BONILLA [facility] [id number] [facility] 2021-03-10 00:00:00 2021-03-10 00:00:00 Patient Secure Guerita Savage Counts include 234 beds at the [facility]?Francisco [facility] Medical Office Building 1..840.114 350.1.13.10 4.2.7.2.686 [id number] [facility] 2021-03-09 10:00:00 2021-03-09 10:00:00 Outpatient R FRANKO THAKUR [facility] [id number] [facility] 2021-03-09 09:32:44 2021-03-09 09:47:44 Office Visit Franko Thakur [facility]?Francisco [facility] Medical Office Building 1.2.840.114 350.1.13.10 4.2.7.2.686 [id number] [facility] 2021-03-08 00:00:00 2021-03-08 00:00:00 Patient Secure Msg Alonso [facility] BUILD[facility] 1.2.840.114 350.1.13.10 4.2.7.2.686 [id number] [facility] 2021-03-05 00:00:00 2021-03-05 00:00:00 Patient Secure Msg Alonso [facility]?Francisco montalvo Medical Office Building 1.840.114 350.1.13.10 4.2.7.2.686 [id number] [facility] 2021-03-04 19:30:00 2021-03-04 19:30:00 Outpatient R LEELA BONILLA STRANMMartha [facility] [id number] [facility] 2021-03-04 15:12:29 2021-03-04 17:42:29 Home Hospice Rn Visit 1, [facility] Sleep Lab Bed Leela Bonilla [facility] 1.840.114 350.1.13.10 4.2.7.2.686 [id number] [facility] 2021-03-04 00:00:00 2021-03-04 00:00:00 Orders Only Doctor Unassigned, [place] [facility] 1.84.114 350.1.13.10 4.2.7.2.686 [id number] [facility] 2021-03-04 00:00:00 2021-03-04 00:00:00 Patient Secure Msg Alonso [facility]?FRANCISCO [facility] MEDICAL OFFICE BUILDING 1.2.840.114 350.1.13.10 4.2.7.2.686 [id number] [facility] 2021-03-02 14:35:01 2021-03-02 14:50:01 Laboratory Only Only, Adc Test [facility] 1.2.840.114 350.1.13.10 4.2.7.2.686 [id number] [facility] 2021-03-02 14:30:00 2021-03-02 14:30:00 Outpatient R [facility] [id number] [facility] 2021 12:29:22 2021 12:44:22 Home Hospice Rn Visit Pob, Adc Lab Main Gavin [facility] 1.2.840.114 350.1.13.10 4.2.7.2.686 [id number] [facility] 2021 10:58:32 2021 12:05:09 Office Visit Gavin [facility] 1.2.840.114 350.1.13.10 4.2.7.2.686 [id number] 220 [id number] [facility] 2021 10:58:32 2021 12:05:09 Office Visit Gavin [facility] 1.2.840.114 350.1.13.10 4.2.7.2.686 [id number] [facility] 2021 10:30:00 2021 12:05:09 Outpatient R GAVIN [facility] [id number] [facility] 2021 10:30:00 2021 10:30:00 Outpatient R GAVIN [facility] [id number] [facility] 2021 00:00:00 2021 00:00:00 Orders Only Doctor Unassigned, [place] [facility] 1.2.840.114 350.1.13.10 4.2.7.2.686 [id number] [id number] [facility] 2021-02-03 08:57:54 2021-02-03 09:17:54 Office Visit Leela Bonilla [facility] Building 1.2.840.114 350.1.13.10 4.2.7.2.686 [id number] [facility] 2021-02-03 09:00:00 2021-02-03 09:00:00 Outpatient R LEELA BONILLA STRANMMartha [facility] [id number] [facility] 2021-02-02 09:10:37 2021-02-02 09:40:37 Office Visit Franko Thakur [facility] Building One 1.2.840.114 350.1.13.10 4.2.7.2.686 [id number] [facility] 2021-02-02 09:30:00 2021-02-02 09:30:00 Outpatient FRANKO SMITH [facility] [id number] [facility] 2021-02-02 00:00:00 2021-02-02 00:00:00 Orders Only Doctor Unassigned, [place] [facility] 1.2.840.114 350.1.13.10 4.2.7.2.686 [id number] [facility] 2021-02-01 13:30:00 2021-02-01 13:30:00 Outpatient R FRANKO THAKUR [facility] [id number] [facility] 2020-05-28 12:12:00 2020-05-28 12:12:00 Outpatient 3 Andry Dinero [facility] Florencio [id number] [facility] 2020-05-28 12:12:00 2020-05-28 12:12:00 Outpatient 3 Andry Dinero [facility] [id number] [facility] Results Test Description Test Time Test Comments Results Result Co mments Source [facility] MOLECULAR [id number] 20:35:51* Test Item Value Reference Range Interpretation Comme nts POCT Molecular FluA (test co de = 95106-2) Negative Negative POCT Molecular FluB (test co de = 96477-2) Negative Negative Lab Interpretation (test cod e = 85091-8) Normal [facility] MOLECULAR [id number] 20:18:28* Test Item Value Reference Range Interpretation Comme nts POCT Molecular Strep (test c ode = 05168-0) Negative Negative Lab Interpretation (test cod e = 55568-3) Normal [facility] MOLECULAR [id number] 20:18:28* Test Item Value Reference Range Interpretation Comme nts POCT Molecular Strep (test c ode = 47823-6) Negative Negative Lab Interpretation (test cod e = 10258-6) Normal [facility] Thyroid [id number] 15:04:14 [facility] 1965 Sex: FPatient: KIRILL [...] of 3 passes were performed. All aspirates weregiven to the pathologist for preparation of slides/specimens, deemed adequate by the pathologist. All hardware was then removed.A final sonographic evaluation throughout the entirety of the left neckbase soft tissues reveals no abnormalities, without fluid [...] SamerSigned (Electronic Signature): 05/28/2020 3:04 pmIR Thyroid [id number] 15:04:14 [facility] : 1965 Sex: FPatient: KIRILL [...] Moraima, SamerSigned (Electronic Signature): 05/28/2020 3:04 pmPOC Oqkoepu1261-10-82 12:43:26* Test Item Value Reference Range Interpretation Comme nts Glucose POC (test code = Glucose POC) 107 mg/dL 74-106 H POC Glucose used on critically ill patients is considered "off-label use" and has not been cleared or approved by the FDA. Alternative testing methods should be considered if the patient is critically ill. POC Ciwwhwp6749-23-15 12:21:41* Test Item Value Reference Range Interpretation Comme nts Glucose POC (test code = Glucose POC) 105 mg/dL 74-106 POC Glucose used on critically ill patients is considered "off-label use" and has not been cleared or approved by the FDA. Alternative testing methods should be considered if the patient is critically ill. Prothrombin Time and [id number] 11:11:55* Test Item Value Reference Range Interpretation Comme nts Prothrombin Time (test code = Prothrombin Time) 10.8 seconds 9.0-12.0 INR (test code = INR) 1.0 ratio 0.9-1.2 Partial Thromboplastin Snfj3115-95-69 11:11:55* Test Item Value Reference Range Interpretation Comme nts Partial Thromboplastin Time (test code = Partial Thromboplastin Time) 27.8 seconds 24.0-35.0 IG Jpbzk3988-78-01 10:58:55* Test Item Value Reference Range Interpretation Comme nts IG (test code = IG) 0 % 0-5 IG Abs (test code = IG Abs) 0 x10 N Complete Blood Count with Ysilieauriro5713-46-08 10:58:54* Test Item Value Reference Range Interpretation [...] Result created b y GL_SET_SLIDE_REVIEW_A UTO Automated Rzfkaxdatjsy3961-18-06 10:58:54* Test Item Value Reference Range Interpretation Comme nts Neutro Auto (test code = Neutro Auto) 60.9 % N Lymph Auto (test code = Lymph Auto) 27.7 % N [place] Auto (test code = [place] Auto) 8.5 % N Eos, Auto (test code = Eos, Auto) 1.8 % N Basophil Auto (test code = B asophil Auto) 0.9 % N Neutro Absolute (test code = Neutro Absolute) 2.7 x10 2.7-7.3 Lymph Absolute (test code = Lymph Absolute) 1.2 x10 0.8-3.5 [place] Absolute (test code = M foster Absolute) 0.4 x10 0.3-0.9 Eos Absolute (test code = Eo s Absolute) 0.1 x10 0.0-0.3 Baso Absolute (test code = B aso Absolute) 0.0 x10 0.0-0.1 Notes Date/Time Note Provider Source 2023-07-07 10:20:26 [id number] g4HSWzG1VyRrnh +ipxonAigmE/eoI2aGFLhJSvGB1Qo67932 -12-22T10:20:26 Prescription for Humira sent to pharmacy. 13225-6Uzmixxeia encounter GrvyAX5170-32-29D84:21:09Telephone encounter NoteTXT1.2.840.704099.1.13.104.2.7 .2.922212|[id number] for patient zbmj98232-7TtyaKLLGSAZWDJDQltyyqmh d C-CDA narrative otfq550623711Usrwp [place] [address]UCANUTMB[address] Peterson [id number] 70ESNRRIZKBMSZQSRDDPGYLG6555-70-46 T10:21:091.2.840.104460.1.72.3.15| 1.2.840.635307.1.13.104.2.7.2.7278 [id number] [place] [facility] 2023-07-07 10:15:24 4P8kaK1WTXDHBqFCd1iN Ogt6HikNapC3N/ rBtmyf+JcOo4uVJewupTMy35c4U9f56542 -12-22T10:15:24 Labs reviewed from 04/04/23LOV:04/04/23NOV:10/05/22Pr escription sent to pharmacy. 68235-1Ioebsshnv encounter QcbdCJ1600-21-20B56:20:13Telephone encounter NoteTXT1.2.840.128548.1.13.104.2.7 .2.284220|[id number] for patient wxjh53709-3DktnSUVQZUJGHJNKovvylal d C-CDA narrative [id number] [place] [id number] 20JMSVAQGKXLBOBTKHPDVPNI8947-27-31 T10:20:131.2.840.033540.1.72.3.15| 1.2.840.958308.1.13.104.2.7.2.7278 [id number] [place] [facility] 2023-07-07 09:55:47 KE+m8GGJOlaTjSYznvEa EBwdk7lOzPoz3/ ZfMSkHMW1mDvn4oL9N2yCpd+6e7ixc60152022T09:55:47 Notes from PAMELA Norris dated 05/25/23Advise patient she can try increasing her gabapentin to 2 pills (600 mg) three times a day.NOV: 10/06/23 59816-0Pvtqlkwit encounter DqhxSE0246-67-90Z77:11:03Telephone encounter NoteTXT1.2.840.748768.1.13.104.2.7 .2.809455|[id number] for patient himu33381-2CvzsCHYUMSLMSLOKzailckn d C-CDA narrative textUT[address] Bl[id number] 43XZRFSPKJRCTTAGFWPOYRKF2680-54-40 T10:11:031.2.840.926737.1.72.3.15| 1.2.840.527022.1.13.104.2.7.2.7278 [id number] [facility] 2023-07-07 08:50:38 FS+AYDoPOzEf3YqMLhUu bgdbAzj/dIHe9v laVtZ9rLUhKE7JCPOJvPVLzYxyv47d9482 -12-22T08:50:38 Refill request routed to provider for [...] Received in Lab[facility] Gold Plus Result 04/04/2023 AyyoajhqXJK-97-BK0. Seropositive rheumatoid arthritis of multiple joints M05.79Please advise.Samia Esparza 07/07/2023 8:50 AM 56315-8Umgbqpsuh encounter TywpGI5815-86-01L90:04:11Telephone encounter NoteTXT1.2.840.645083.1.13.104.2.7 .2.116747|[id number] for patient piao63558-2DdfwPFPCFXFISPPXbcotrzn d C-CDA narrative [id number] Bobbychiara[address] EuqtL[id number] 89QINHIZWTBMBJECWAVOAVNT6655-05-22 T09:04:111.2.840.951977.1.72.3.15| 1.2.840.695393.1.13.104.2.7.2.7278 [id number] Samiara Esparza [facility] 2023-04-04 14:15:00 jOe9YvyQtFC8Hamj31HC GECePVRpSGId7M 5Uq7jwpulhBr9p6qIhTLbFBDwgne/t2T14:15:00 Images from the original note were not included.Venipuncture collection performed by clean technique on the right anticubitus. Total of 1 attempts were made. Slight pressure and a bandage/dressing were applied to the site(s). The patient experienced no complications. The following specimens were processed according to instructions and sent to [facility] laboratories per lab order on 04/04/2023: LT BLUE SST 2 RED LAV 1 PPT DK GREEN (LiHep) 1 DK GREEN (SodH) PRECIADO DK BLUE (K2) DK BLUE (S) ACD Blood Culture NIPT/NTD 83112-4Xqhgo ErpgTD8954-47-16I50:23:40Nurse NoteTXT1.2.840.895416.1.13.104.2.7 .2.532854|[id number] for patient xahj17000-0Vjoyx NoteLNUT[address] IxsfIgalzgyamZptkliffiUGYI26287855 22SIGYCDPEXNEKSNVUPMGKRL7595-60-55 T14:23:401.2.840.628095.1.72.3.15| 1.2.840.446202.1.13.104.2.7.2.7278 [id number] [facility] 2023-03-23 14:07:44 8ZmPuE+P/X4VZ56HEZRQ ah6f6UXQHnrZ6d ceUjd4BVg66LlyHI40S/2zFJWkQrTD7961 -09-07T14:07:44 QFT 06/09/21 NegativePlaced orders for QFTNOV [...] 365 days and meeting all other requirements Home Hospice Rn Visit on 12/08/2022 Component Date Value TSH [...] COVID-19 tests the patient has had at [facility]: molecular nucleic acid amplification tests (NAAT) (specifically PCR testing and Rapid ID Now testing) and antibody tests. It does not take into account antigen testing or any additional testing that a patient may have had outside of the [facility] medical record. COVID Results 10/13/2022 Value:SARS-CoV-2 NAAT (no units) Date Value 10/13/2022 Not Detected SARS-CoV-2 Rapid ID NOW (no units) Date Value 01/28/2022 Not Detected 04/05/2021 Not Detected 03/02/2021 Not Detected Home Hospice Rn Visit on 10/07/2022 Component Date Value WBC [...] Please advise.Selena Pollard RN 03/23/2023 2:23 PM 05706-8Kvvgrrcmz encounter TotaJQ2725-64-79E01:24:16Telephone encounter NoteTXT1.2.840.312171.1.13.104.2.7 .2.581823|[id number] for patient [id number] P Archuleta RNUT[id number] 31HJGGKLJHPGJZJGHNAADJUK3225-17-42 T14:24:161.2.840.436006.1.72.3.15| 1.2.840.684321.1.13.104.2.7.2.7278 [id number] Selena Pollard RN [facility] 2023-03-23 09:01:26 fI3cGMHOw3S1H0Dz8Sqt 3MUVgCGoNg5LEM aSLNrGGxEj1E4TjzxGZlHslCRBRjkD6438 -09-07T09:01:26 NOV 04/04/23 27225-7Cmantmbzr encounter UuasLZ7381-72-12E90:02:20Telephone encounter NoteTXT1.2.840.180301.1.13.104.2.7 .2.030556|[id number] for patient kohl09745-8PhkpPWDQQCSBZW[id number] 54UXJDIQBUMBKQNYGTGGVFIS1212-16-11 T09:02:201.2.840.127013.1.72.3.15| 1.2.840.210632.1.13.104.2.7.2.7278 [id number] [facility] 2023-03-21 14:27:27 wM6hG9K/TFJWy7EdrsFG LABRGqCd23KPXU njSQ+2I+8oMdHXnlahT7D2PkeHVrH62474 -09-05T14:27:27 Previous referral placed on 12/30 is closed. Please review and sign if appropriate 81786-5Aligxsouj encounter WkfkEE7467-03-58R06:29:31Telephone encounter NoteTXT1.2.840.999105.1.13.104.2.7 .2.268102|[id number] for patient lzvv15891-6XndrIREGCFRIEE74 [id number] 87TNSPANDOMVFFJDVFACFVGW1473-88-90 T14:29:311.2.840.920921.1.72.3.15| 1.2.840.357383.1.13.104.2.7.2.7278 [id number] [facility] 2023-03-21 11:11:54 gDMbt+IBV3KGxie46aFc ljVFphTZJTMvpI hgAGQ+eafHkYhIijm7ucRCuuvUamws2509 -09-05T11:11:54 Kirill Baca is a 57 year old femaleCamille called from Endocrinology, states did not receive faxed referral from 03/24/23 Please refax to [phone]: E11.69, E03.9 95164-5Ersvklbne encounter YicbXU0801-88-98V23:15:26Telephone encounter NoteTXT1.2.840.056445.1.13.104.2.7 .2.860247|[id number] for patient [id number] [id number] 88QXELCOWEIMAXDVKNQOEUZL1320-17-55 T11:15:261.2.840.526298.1.72.3.15| 1.2.840.785642.1.13.104.2.7.2.7278 [id number] Shanti Marie [facility]
[2023-07-29 22:25] LABS: Absolute Lymphocytes (CBC) 1.8 K/uL (0.7-4.9); Hematocrit 40.7 % (36.0-45.0); Lymphocytes % 36.6 % (15.3-44.8); MCV 92.8 fL (80-100); MPV 8.9 fL (7.6-11.3); Platelets 227 thou/uL (152-406); RBC Red Blood Cell Count 4.39 M/uL (3.86-4.86)
--- NOTE | 2023-07-29 22:28 | RAD REPORT ---
EXAM DESCRIPTION: [facility] Single View07/29/2023 9:58 pm CLINICAL HISTORY: Congestion COMPARISON: May 2023 FINDINGS: The lungs appear clear of acute infiltrate. The heart is normal size IMPRESSION: No acute abnormalities displayed
[2023-07-29 22:38] LABS: Potassium 3.8 mEq/L (3.5-5.1)
--- NOTE | 2023-07-29 23:31 | EDPHYS ---
Physician Documentation [facility] Name: Lashon Baca Age: 58 yrs Sex: Female : 1965 Arrival Date: 07/29/2023 Time: 20:09 Bed 11 Private MD: ED Physician Hua Martinez HPI: 07/29 20:31 This 58 yrs old Female presents to ER via EMS with complaints of Doesn't Feel sp4 Well. 20:31 . sp4 20:41 Is a 58-year-old female presents with acute onset of shortness of breath, body aches, sp4 cough congestion sputum and overall fatigue starting 2 days ago. Patient was here on 07/27/2023 and had negative COVID test and negative influenza. At home patient states it has did, COVID-positive. While here in ER on 07/27/2022 patient was prescribed Paxlovid. Patient began her Paxlovid today. Patient states she is feeling unwell shortness of breath chest discomfort pleuritic chest pain . Patient arrived with EMS.. 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 - Social history:: Smoking status: Reported history of juuling and/or vaping. - Family history:: not pertinent. ROS: 20:41 Constitutional: Positive subjective fever, chills, fatigue, body aches, cough, chest sp4 discomfort, sputum, congestion 20:41 All other systems are negative, Exam: 20:41 Constitutional: This is a well developed, well nourished patient who is awake, alert, sp4 and in no acute distress. Head/Face: Normocephalic, atraumatic. Eyes: Pupils equal round and reactive to light, extra-ocular motions intact. Lids and lashes normal. Conjunctiva and sclera are not injected. Cornea within normal limits. Periorbital areas with no swelling, redness, or edema. ENT: Nares patent. No nasal discharge, no septal abnormalities noted. Tympanic membranes are normal and external auditory canals are clear. Oropharynx with no redness, swelling, or masses, exudates, or evidence of obstruction, uvula midline. Mucous membranes moist. Neck: Trachea midline, no thyromegaly or masses palpated, and no cervical lymphadenopathy. Supple, full range of motion without nuchal rigidity, or vertebral point tenderness. Chest/axilla: Normal chest wall appearance and motion. Nontender with no deformity. No lesions are appreciated. Cardiovascular: Regular rate and rhythm with a normal S1 and S2. No gallops, murmurs, or rubs. Normal PMI, no JVD. No pulse deficits. Respiratory: Lungs have equal breath sounds bilaterally, clear to auscultation and percussion. No rales, rhonchi or wheezes noted. No increased work of breathing, no retractions or nasal flaring. Abdomen/GI: Soft, non-tender, with normal bowel sounds. No distension or tympany. No guarding or rebound. No evidence of tenderness throughout. Back: No spinal tenderness. No costovertebral tenderness. There is sacral decubitus ulcer that is covered by the wound VAC. Skin: Warm, dry with normal turgor. Normal color with no rashes, no lesions, and no evidence of cellulitis. MS/ Extremity: Pulses equal, no cyanosis. Neurovascular intact. Full, normal range of motion. Neuro: Awake and alert, GCS 15, oriented to person, place, time, and situation. Cranial nerves II-XII grossly intact. Motor strength 5/5 in all extremities. Sensory grossly intact. Psych: Awake, alert, with orientation to person, place and time. Behavior, mood, and affect are within normal limits Vital Signs: 20:59 BP 109 / 72; Pulse 104; Resp 18; Temp 99.1; Pulse Ox 97% on R/A; Weight 86.18 kg; nj1 Height 5 ft. 5 in. ; Pain 9/10; 22:42 BP 124 / 79; Pulse 88; Resp 20; Temp 99.3; Pulse Ox 100% ; cg 23:45 BP 118 / 75; Pulse 88; Resp 18 S; Pulse Ox 97% ; lg3 20:59 Body Mass Index 31.62 (86.18 kg, 165.1 cm) nj1 20:59 Pain Scale: Adult nj1 Alexandre Coma Score: 22:42 Eye Response: spontaneous(4). Motor Response: obeys commands(6). Verbal Response: cg oriented(5). Total: 15. MDM: 20:33 Patient medically screened. sp4 23:34 Differential Diagnosis altered mental status, sepsis, flu. Data reviewed: vital signs, sp4 nurses notes, EMS record, old medical records, lab test result(s), radiologic studies, plain films. ED course: COVID test positive today. Patient was managed in ER. Will advise to continue Paxlovid and will prescribe symptomatic medications.. 07/29 20:39 Order name: Basic Metabolic Panel; Complete Time: 23:25 4 07/29 20:39 Order name: CBC with Diff; Complete [facility]: 23:[facility] 07/29 21:57 Order name: SARS-COV-2 RT PCR; Complete Time: 23:25 [facility] 07/29 21:57 Order name: Flu; Complete Time: 23:25 3 07/29 20:39 Order name: XRAY Chest (1 view); Complete Time: 23:25 4 07/29 20:39 Order name: IV Saline Lock; Complete Time: 21:56 4 07/29 20:39 Order name: Labs collected and sent; Complete Time: 21:56 sp4 Administered Medications: 22:42 Drug: NS 0.9% IV 1000 ml IV at 1 bolus Per protocol; 1000 mL bolus Route: IV; Rate: 1 cg bolus; Site: right antecubital; 23:47 Follow up: Response: No adverse reaction; IV Status: Completed infusion; IV Intake: lg3 1000ml 22:42 Drug: Ondansetron PO 4 mg PO once Route: PO; cg 23:47 Follow up: Response: No adverse reaction lg3 22:42 Drug: Ibuprofen PO 800 mg PO once Route: PO; cg 23:47 Follow up: Response: No adverse reaction lg3 22:42 Drug: Acetaminophen-Codeine PO (300 mg-30 mg) 2 tabs PO once; RASS on ADMIN: Combtv4, cg Very Agttd3, Agttd2, Rstlss1, AlertClm0, Drwsy-1, Lt Sdtn-2, Mod Sdtn-3, Dp Sdtn-4, UnArsble-5 Route: PO; 23:46 Follow up: Response: No adverse reaction; Marked relief of symptoms; RASS: Alert and lg3 Calm (0) 22:42 Drug: diphenhydrAMINE PO 25 mg PO once Route: PO; cg 23:46 Follow up: Response: No adverse reaction lg3 22:42 Drug: Albuterol Inhalation 2.5 mg Inhalation once Route: Inhalation; cg 23:46 Follow up: Response: No adverse reaction lg3 Disposition Summary: 07/29/23 23:31 Discharge Ordered Notes: Location: Home sp4 Problem: new sp4 Symptoms: have improved sp4 Condition: Stable sp4 Diagnosis - Other specified viral diseases sp4 - COVID-19 acute, acute viral bronchitis, acute systemic viral illness sp4 Followup: sp4 - With: Private Physician - When: 7 - 10 days - Reason: Recheck today's complaints Discharge Instructions: - Discharge Summary Sheet sp4 - COVID-19 sp4 Forms: - Patient Portal Instructions sp4 Prescriptions: - dextromethorphan-guaifenesin 20-400 mg Oral tablet - take 1 tablet ORAL route every 6 hours PRN cough; 60 tablet; Refills: 0, sp4 Product Selection Permitted - Ibuprofen 600 mg Oral Tablet - take 1 tablet ORAL route every 6 hours As needed take with food; 30 tablet; sp4 Refills: 0, Product Selection Permitted - Albuterol Sulfate 2.5 mg /3 mL (0.083 %) Inhalation Solution for Nebulization - inhale 1 unit NEBULIZATION route every 4 hours As needed Dispense 50 vials , sp4 Dispense with Nebulizer and adult mask , Use nebulized every 4 hours PRN shortness of breath; 50 unit; Refills: 0, Product Selection Permitted - methocarbamol 750 mg Oral tablet - take 2 tablets ORAL route every 8 hours for 3 days PRN muscle aches; 60 tablet; sp4 Refills: 0, Product Selection Permitted - ondansetron 8 mg Oral Tablet,disintegrating - take 1 tablet ORAL route every 8 hours PRN nausea; 30 tablet; Refills: 0, sp4 Product Selection Permitted Signatures: Dispatcher [employer] Elisabet Fernández RN RN cg Potepalov, Sergey, MD MD sp4 Juanis Solano, RN RN nj1 Elisabeth Sofia RN lg3
--- NOTE | 2023-07-29 23:31 | ER ---
Nurse's Notes [facility] Name: Lashon Baca Age: 58 yrs Sex: Female : 1965 Arrival Date: 07/29/2023 Time: 20:09 Bed 11 Private MD: Diagnosis: Other specified viral diseases;COVID-19 acute, acute viral bronchitis, acute systemic viral illness Presentation: 07/29 20:21 Chief complaint: EMS states: Called for high blood pressure. COVID positive , nj1 taking paxlovid. Coughing, not feeling well. 20:21 Method Of Arrival: EMS: [facility] nj1 20:59 Chief complaint: Patient states: Doesn't feel well since . States her blood md1 pressure monitor read 145/98 and a pulse of 104. Concerned about her vital signs. Coronavirus screen: Vaccine status: Patient reports receiving the 2nd dose of the covid vaccine. Ebola Screen: Patient denies travel to an Ebola-affected area in the 21 days before illness onset. Initial Sepsis Screen: Does the patient meet any 2 criteria? HR > 90 bpm. No. Patient's initial sepsis screen is negative. Does the patient have a suspected source of infection? No. Patient's initial sepsis screen is negative. Risk Assessment: Do you want to hurt yourself or someone else? Patient reports no desire to harm self or others. Onset of symptoms was July 27, 2023. 20:59 Acuity: KENNETH 3 nj1 Historical: - Allergies: 21:01 Cymbalta (rash); nj1 21:01 Savella (rash); nj1 21:01 tramadol (Itching); nj1 - PMHx: 21:01 Bipolar disorder; Diabetes - NIDDM; Diabetes Mellitus Type 2; Fibromyalgia; Silas's nj1 disease; Kidney stone; Rheumatoid Arthritis; Sleep Apnea; - PSHx: 21:01 section; Cholecystectomy; hysterectomy; L knee; L side of thyroid removed nj1 (Cancerous lumps); R hip replacement; - Immunization history:: Client reports receiving the 2nd dose of the Covid vaccine. - Social history:: Smoking status: Reported history of juuling and/or vaping. - Family history:: not pertinent. Screenin:42 [facility] ED Fall Risk Assessment (Adult) History of falling in the last 3 months, cg including since admission No falls in past 3 months (0 pts) Confusion or Disorientation No (0 pts) Intoxicated or Sedated No (0 pts) Impaired Gait No (0 pts) Mobility Assist Device Used No (0 pt) Altered Elimination No (0 pt) Score/Fall Risk Level 0 - 2 = Low Risk Oriented to surroundings, Provided non-skid footwear, Hourly rounding (assess needs \T\ fall precautionary measures) done. Abuse screen: Denies threats or abuse. Denies injuries from another. Nutritional screening: No deficits noted. Tuberculosis screening: No symptoms or risk factors identified. Assessment: 22:42 Reassessment: Moved from lobby to Room 13 for breathing treatment to be administered cg along with IVF. Neuro: Olivas Agitation-Sedation Scale (RASS): 0 - Alert and Calm Level of Consciousness is awake, alert, obeys commands, Oriented to person, place, time, situation, Appropriate for age. Cardiovascular: Reports None Denies chest pain, Heart tones S1 S2 Capillary refill < 3 seconds is sluggish Patient's skin is warm and dry. Pulses are all present. Edema is absent. Respiratory: Airway is patent Respiratory effort is even, unlabored, Respiratory pattern is regular, symmetrical, Breath sounds are clear bilaterally. sniffles and runny nose noted. GI: No deficits noted. No signs and/or symptoms were reported involving the gastrointestinal system. : No deficits noted. No signs and/or symptoms were reported regarding the genitourinary system. Vital Signs: 20:59 BP 109 / 72; Pulse 104; Resp 18; Temp 99.1; Pulse Ox 97% on R/A; Weight 86.18 kg; nj1 Height 5 ft. 5 in. ; Pain 9/10; 22:42 BP 124 / 79; Pulse 88; Resp 20; Temp 99.3; Pulse Ox 100% ; cg 23:45 BP 118 / 75; Pulse 88; Resp 18 S; Pulse Ox 97% ; lg3 20:59 Body Mass Index 31.62 (86.18 kg, 165.1 cm) nj1 20:59 Pain Scale: Adult nj1 Alexandre Coma Score: 22:42 Eye Response: spontaneous(4). Motor Response: obeys commands(6). Verbal Response: cg oriented(5). Total: 15. ED Course: 20:12 Patient arrived in ED. rg4 20:31 Hua Martinez MD is Attending Physician. sp4 21:01 Triage completed. nj1 21:02 Arm band placed on right wrist. nj1 21:54 Inserted saline lock: 20 gauge in right antecubital area, using aseptic technique. lg3 Blood collected. 21:56 Basic Metabolic Panel Sent. lg3 21:56 CBC with Diff Sent. lg3 22:00 XRAY Chest (1 view) In Process Unspecified. EDMS 22:07 Flu Sent. lg3 22:07 SARS-COV-2 RT PCR Sent. lg3 22:42 Patient has correct armband on for positive identification. Placed in gown. Bed in low cg position. Call light in reach. Side rails up X2. Provided Education on: plan of care. Pulse ox on. NIBP on. 22:42 No provider procedures requiring assistance completed. Maintain EMS IV. Dressing cg intact. Site clean \T\ dry. Gauge \T\ site: 20 right AC. IV is patent, is intact, with good blood return, Flushed right peripheral line saline lock. 23:45 IV discontinued, intact, bleeding controlled, No redness/swelling at site. Pressure lg3 dressing applied. Administered Medications: 22:42 Drug: NS 0.9% IV 1000 ml IV at 1 bolus Per protocol; 1000 mL bolus Route: IV; Rate: 1 cg bolus; Site: right antecubital; 23:47 Follow up: Response: No adverse reaction; IV Status: Completed infusion; IV Intake: lg3 1000ml 22:42 Drug: Ondansetron PO 4 mg PO once Route: PO; cg 23:47 Follow up: Response: No adverse reaction lg3 22:42 Drug: Ibuprofen PO 800 mg PO once Route: PO; cg 23:47 Follow up: Response: No adverse reaction lg3 22:42 Drug: Acetaminophen-Codeine PO (300 mg-30 mg) 2 tabs PO once; RASS on ADMIN: Combtv4, cg Very Agttd3, Agttd2, Rstlss1, AlertClm0, Drwsy-1, Lt Sdtn-2, Mod Sdtn-3, Dp Sdtn-4, UnArsble-5 Route: PO; 23:46 Follow up: Response: No adverse reaction; Marked relief of symptoms; RASS: Alert and lg3 Calm (0) 22:42 Drug: diphenhydrAMINE PO 25 mg PO once Route: PO; 23:46 Follow up: Response: No adverse reaction lg3 22:42 Drug: Albuterol Inhalation 2.5 mg Inhalation once Route: Inhalation; cg 23:46 Follow up: Response: No adverse reaction lg3 Medication: 22:42 VIS not applicable for this client. Intake: 23:47 IV: 1000ml; Total: 1000ml. lg3 Outcome: 23:31 Discharge ordered by MD. henriquez 23:45 Discharged to home ambulatory, lg3 23:45 Condition: stable 23:45 Discharge instructions given to patient, Instructed on discharge instructions, follow up and referral plans. medication usage, Demonstrated understanding of instructions, follow-up care, medications, Prescriptions given X 5 23:47 Patient left the ED. lg3 Signatures: Dispatcher [employer] Elisabet Fernández RN RN Lidia Hitchcock rg4 Elisabeth Sofia RN RN lg3 Hua Martinez MD MD sp4 Juanis Solano RN RN nj1
[2023-07-30 01:44] VITALS: BP 118/75; TEMP 99.3; O2SAT 97
== END ==
LOC: ER 20:09
DX: U07.1 COVID-19 (principal); J20.8 Acute bronchitis due to other specified organisms; Z88.5 Allergy status to narcotic agent; Z88.8 Allergy status to other drugs, medicaments and biological substances
CPT/HCPCS: 85025; 80048; 36415; 87635; 87804 ×2; 71045; 96360; 99285; Q0162; J7613; J7030

== ENCOUNTER 2023-09-08 17:57 | Observation (INO) | payer OTHER ==
[2023-09-08] MEDS ORDERED: ONDANSETRON 4 MG/2 ML VIAL ONE ×2 (18:09→21:54)
[2023-09-08] MEDS ORDERED: PANTOPRAZOLE 40 MG INJ ONE (18:09)
[2023-09-08] MEDS ORDERED: MORPHINE 2 MG/ML SYR ONE (18:10)
[2023-09-08 18:16] LABS: Absolute Lymphocytes (CBC) 2.4 K/uL (0.7-4.9); Hematocrit 36.5 % (36.0-45.0); Lymphocytes % 35.6 % (15.3-44.8); MCV 90.7 fL (80-100); MPV 8.8 fL (7.6-11.3); Platelets 265 thou/uL (152-406); RBC Red Blood Cell Count 4.02 M/uL (3.86-4.86)
--- OUTSIDE RECORDS SUMMARY | 2023-09-08 18:18 | XMS REPORT | Continuity of Care Document ---
Author Name Unknown Address [address] [facility]. [address] [place] [address] [facility] thconnect Address [address] [facility] [address] [place] [address] Care Team Providers Care Landscape Designer Name Role Phone Janel Snow MD Primary Care Physici an Franko Thakur Attending Clinician Unavailable Corwin Claros Attending Clinician Unav Corwin Perry Attending Clinician Unav ailJANEL Gutierrez Attending Clinician Miriam RIVKA Kaur Attending Clinician RIVKA Thurman Attending Clinician MANISHA Ordoñez Attending Clinician Unavailable MANISHA NORRIS Attending Clinician Unavailable Ja [facility], Emilie Attending Clinician Unavailable Doctor Unassigned, [place] Attending Clinician U Franko Woodall MD Attending Clinician + [phone] Janel Snow MD Attending Clinician BillyMrs Patel Attending Clinician Unavailab FRANKO Hollingsworth Attending Clinician Bobo Quirogalisa David Bonny Attending Clinician [phone] Pcp-Lab Attending Clinician Unavailable MANISHA NORRIS Attending Clinician Unavailable SHALINI ALLEN Attending Clinician UnavailRosales Jaime PA-C Attending Clinician [phone] ROSALES CHIU Attending Clinician Unavailable Lab, Ang - Db Attending Clinician Unavailable Umberto Saul MD Attending Clinician [phone] BABITA SALDANA Attending Clinician Unavailable BABITA SALDANA Attending Clinician Unavailable Jeane Pruett Attending Clinician [phone] LICO WHITE Attending Clinician Unavailable LICO WHITE Attending Clinician Unavailable SUNIL NAQVI Attending Clinician Unavailable Leela Bonilla MD Attending Clinician + [phone] Guerita Alonso MD Attending Clinician [phone] Dixie Bhardwaj Attending Clinician [phone] DIXIE ALANIS Attending Clinician Unavailable Kasandra Portillo RN Attending Clinician Unavailable UMBERTO SAUL Attending Clinician UnavailDinh Nicholson CRNA Attending Clinician [phone] Heriberto Vyas MD Attending Clinicia n Only, Adc Test Attending Clinician Unavailable Pob, [facility] Lab Main Attending Clinician UnavailDonna Espinal PT Attending Clinician Un available Buddy Mujica MD Attending Clinician [phone] BUDDY MUJICA Attending Clinician Unavailable Faith Hall MA Attending Clinician Unavail able GUERITA ALONSO Attending Clinician Unavailable LEELA BONILLA Attending Clinician UnavailLEELA Kwok Attending Clinician Unavaila Teresa Edmonds Attending Clinician Unamar sylvesterable 1, [facility] Sleep Lab Bed Attending Clinician Unavail Anderson Benavides MD Attending Clinician GARLAND CURRIE Attending Clinician Un available Andry Dinero Attending Clinician Unavailab Andry Ro Attending Clinician Unavailab Corwin Heard Admitting Clinician Unav MANISHA Mccabe Admitting Clinician Unavailable UMBERTO SAUL Admitting Clinician UnavailUmberto Toussaint MD Admitting Clinician BUDDY MUJICA Admitting Clinician Unavailable Payers Payer Name Policy Type Policy Number Effective Date Expirati on Date Source [facility] DUAL COMP HMO D SNP [id number] 2023 00:00:00 [place] [id number] 2022 00:00:00 Problems Condition Name Condition Details Condition Category Status Onset Date Resolution Date Last Treatment Date Treating Clinician Comments Source Hip osteoarthr itis Hip osteoarthr itis Disease Active 7-18 00:00: 00 [facility] Obesity (BMI 30-39.9) Obesity (BMI 30-39.9) Disease Active 7-15 00:00: 00 [facility] Primary osteoarthr itis of right hip Primary osteoarthr itis of right hip Disease Active 6-30 00:00: 00 Overview: Formattin g of this note might be different from the original. Added automatic ally from request for surgery [id number] [facility] Type 2 diabetes mellitus without complicati on, without long-term current use of insulin Type 2 diabetes mellitus without complicati on, without long-term current use of insulin Disease Active 03-18 00:00: 00 [facility] Thyroid nodule Thyroid nodule Disease Active 03-18 00:00: 00 [facility] Dyslipidem ia Dyslipidem ia Disease Active 03-18 00:00: 00 [facility] Carpal tunnel syndrome of right wrist Carpal tunnel syndrome of right wrist Disease Active 624 00:00: 00 [facility] Ganglion cyst Ganglion cyst Disease Active 624 00:00: 00 [facility] Tenosynovi tis of right hand Tenosynovi tis of right hand Disease Active 2017-07 2-15 00:00: 00 [facility] 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 Disease Active 2017-07 00:00: 00 [facility] Sleep apnea Sleep apnea Disease Active 2017-07 00:00: 00 [facility] Vitamin D deficiency Vitamin D deficiency Disease Active 2017-07 00:00: 00 [facility] Depressed bipolar disorder Depressed bipolar disorder Disease Active 03-04 00:00: 00 [facility] Fibromyalg ia Fibromyalg ia Disease Active 03-04 00:00: 00 [facility] Silas thyroiditi s, fibrous variant Silas thyroiditi s, fibrous variant Disease Active 03-04 00:00: 00 [facility] Rheumatoid arthritis Rheumatoid arthritis Disease Active 03-04 00:00: 00 [facility] Allergies, Adverse Reactions, Alerts Allergy Name Allergy Type Status Severity Reaction(s) Onset Date Inactive Date Treating Clinician Comments Source Tramadol Propensi ty to adverse reaction s Active Itching 0 01-05 00:00: 00 [facility] TRAMADOL DRUG INGREDI Active ITCHING 0 01-05 00:00: 00 [facility] EDOXABAN TOSYLATE DRUG INGREDI Active High Rash 2020-0 -20 00:00: 00 [facility] DULOXETI NE HCL DRUG INGREDI Active Med Rash 2020-0 -20 00:00: 00 [facility] MILNACIP RAN HCL DRUG INGREDI Active Med Other-Cmnt 2020-0 - 00:00: 00 [facility] Duloxeti ne Hcl Drug Allergy Active Rash 2020-0 -20 00:00: 00 [facility] Edoxaban Tosylate Drug Allergy Active Rash 02-02 00:00: 00 [facility] Milnacip ran Hcl Drug Allergy Active Other - See comments 02-02 00:00: 00 [facility] lactose DA Active U 01-31 00:00: [address] [facility] duloxeti ne DA Active ND 01-31 00:00: 00 [facility] Drug Active Medical [facility] Drug Active [facility] Drug Active [facility] Drug Active Medical [facility] Drug Active [facility] Drug Active Medical [facility] Social History Social Habit Start Date Stop Date Quantity Comments Source Gender identity [facility] Alcohol intake 2023-08-03 00:00:00 2023-08-03 00:00:00 Current drinker of alcohol (finding) [facility] Exposure to SARS-CoV-2 (event) 2022-12-29 00:00:00 2023-01-08 11:26:00 Not sure [facility] History of Social function 2022-12-08 00:00:00 2022-12-08 00:00:00 [facility] History SDOH Alcohol Frequency 2022-12-06 00:00:00 2022-12-06 00:00:00 2 [facility] History SDOH Alcohol Std Drinks 2022-12-06 00:00:00 2022-12-06 00:00:00 1 [facility] History SDOH Alcohol Binge 2022-12-06 00:00:00 2022-12-06 00:00:00 1 [facility] History SDOH Social Connections Phone 2022-12-06 00:00:00 2022-12-06 00:00:00 5 [facility] History SDOH Social Connections Get Together 2022-12-06 00:00:00 2022-12-06 00:00:00 5 [facility] History SDOH Social Connections Sikhism 2022-12-06 00:00:00 2022-12-06 00:00:00 98 [facility] History SDOH Social Connections Membership 2022-12-06 00:00:00 2022-12-06 00:00:00 1 [facility] History SDOH Social Connections Meetings 2022-12-06 00:00:00 2022-12-06 00:00:00 3 [facility] History SDOH Social Connections Living 2022-12-06 00:00:00 2022-12-06 00:00:00 5 [facility] History SDOH Physical Activity DPW 2022-12-06 00:00:00 2022-12-06 00:00:00 0 [facility] History SDOH Physical Activity MPS 2022-12-06 00:00:00 2022-12-06 00:00:00 0 [facility] History SDOH Stress 2022-12-06 00:00:00 2022-12-06 00:00:00 3 [facility] History SDOH Financial 2022-12-06 00:00:00 2022-12-06 00:00:00 4 [facility] History SDOH Transport Med 2022-12-06 00:00:00 2022-12-06 00:00:00 2 [facility] History SDOH Transport Non-Med 2022-12-06 00:00:00 2022-12-06 00:00:00 2 [facility] History SDOH Housing Unable to Pay 2022-12-06 00:00:00 2022-12-06 00:00:00 2 [facility] History SDOH Housing Places Lived 2022-12-06 00:00:00 2022-12-06 00:00:00 1 [facility] History SDOH Housing Homeless Last Year 2022-12-06 00:00:00 2022-12-06 00:00:00 2 [facility] Tobacco Comment 2022-01-25 00:00:00 2022-01-25 00:00:00 occasional [facility] Cigarettes smoked current (pack per day) - Reported 2022-01-25 00:00:00 2022-01-25 00:00:00 [facility] Cigarette pack-years 2022-01-25 00:00:00 2022-01-25 00:00:00 [facility] Tobacco use and exposure 2022-01-25 00:00:00 2022-01-25 00:00:00 User of smokeless tobacco [facility] Alcohol Comment 2021-02-02 00:00:00 2021-02-02 00:00:00 socially [facility] History of tobacco use 1993-02-02 00:00:00 Cigarette Smoker [facility] Sex Assigned At 1965 00:00:00 1965 00:00:00 [facility] Smoking Status Start Date Stop Date Source Ex-smoker 2022-01-25 00:00:00 2022-01-25 00:00[facility] Medications Ordered Medication Name Filled Medication Name Start Date Stop Date Current Medication? Ordering Clinician Indication Dosage Frequency Signature (SIG) Comments Components Source simvastatin 80 mg tablet 08-03 00:00: 00 Yes [id number] 80mg TAKE 1 TABLET BY MOUTH AT BEDTIME [facility] simvastatin 80 mg tablet 08-03 00:00: 00 Yes [id number] 80mg TAKE 1 TABLET BY MOUTH AT BEDTIME [facility] simvastatin 80 mg tablet 08-03 00:00: 00 Yes [id number] 80mg TAKE 1 TABLET BY MOUTH AT BEDTIME [facility] albuterol 2.5 mg/0.5 mL nebulizer solution 08-01 00:00: 00 Yes [id number] 2.5mg Inhale 0.5 mL every 6 (six) hours as needed for Wheezing. [facility] Nebulizer & Compressor For Neb Elsi 08-01 00:00: 00 Yes [id number] Use as directed [facility] albuterol 2.5 mg/0.5 mL nebulizer solution 08-01 00:00: 00 Yes [id number] 2.5mg Inhale 0.5 mL every 6 (six) hours as needed for Wheezing. [facility] Nebulizer & Compressor For Neb Elsi 08-01 00:00: 00 Yes [id number] Use as directed [facility] albuterol 2.5 mg/0.5 mL nebulizer solution 2023-0 -16 00:00: 00 Yes [id number] 2.5mg Inhale 0.5 mL every 6 (six) hours as needed for Wheezing. [facility] [place] Nebulizer & Compressor For Neb Elsi 0 16 00:00: 00 Yes [id number] Use as directed [facility] albuterol 2.5 mg/0.5 mL nebulizer solution 2023-0 -16 00:00: 00 Yes [id number] 2.5mg Inhale 0.5 mL every 6 (six) hours as needed for Wheezing. [facility] Nebulizer & Compressor For Neb Elsi 0 08-01 00:00: 00 Yes [id number] Use as directed [facility] albuterol 2.5 mg/0.5 mL nebulizer solution 2023-0 16 00:00: 00 Yes [id number] 2.5mg Inhale 0.5 mL every 6 (six) hours as needed for Wheezing. [facility] [place] Nebulizer & Compressor For Neb Elsi 0 08-01 00:00: 00 Yes [id number] Use as directed [facility] albuterol 2.5 mg/0.5 mL nebulizer solution 0 16 00:00: 00 Yes [id number] 2.5mg Inhale 0.5 mL every 6 (six) hours as needed for Wheezing. [facility] [place] Nebulizer & Compressor For Neb Elsi 0 16 00:00: 00 Yes [id number] Use as directed [facility] albuterol 2.5 mg/0.5 mL nebulizer solution 2023-0 16 00:00: 00 Yes [id number] 2.5mg Inhale 0.5 mL every 6 (six) hours as needed for Wheezing. [facility] [place] Nebulizer & Compressor For Neb Elsi 0 16 00:00: 00 Yes [id number] Use as directed [facility] albuterol 2.5 mg/0.5 mL nebulizer solution 2023-0 -16 00:00: 00 Yes [id number] 2.5mg Inhale 0.5 mL every 6 (six) hours as needed for Wheezing. [facility] [place] Nebulizer & Compressor For Neb Elsi 16 00:00: 00 Yes [id number] Use as directed [facility] albuterol 2.5 mg/0.5 mL nebulizer solution 0 16 00:00: 00 Yes [id number] 2.5mg Inhale 0.5 mL every 6 (six) hours as needed for Wheezing. [facility] Nebulizer & Compressor For Neb Elsi 08-01 00:00: 00 Yes [id number] Use as directed [facility] albuterol 2.5 mg/0.5 mL nebulizer solution 0 08-01 00:00: 00 Yes [id number] 2.5mg Inhale 0.5 mL every 6 (six) hours as needed for Wheezing. [facility] Nebulizer & Compressor For Neb Elsi 08-01 00:00: 00 Yes [id number] Use as directed [facility] albuterol 2.5 mg/0.5 mL nebulizer solution 0 08-01 00:00: 00 Yes [id number] 2.5mg Inhale 0.5 mL every 6 (six) hours as needed for Wheezing. [facility] [place] Nebulizer & Compressor For Neb Elsi 08-01 00:00: 00 Yes [id number] Use as directed [facility] albuterol 2.5 mg/0.5 mL nebulizer solution 16 00:00: 00 08-01 00:00 :00 No [id number] 2.5mg Inhale 0.5 mL every 6 (six) hours as needed for Wheezing. [facility] [place] Nebulizer & Compressor For Neb Elsi -16 00:00: 00 08-01 00:00 :00 No [id number] Use as directed [facility] albuterol 2.5 mg/0.5 mL nebulizer solution 0 16 00:00: 00 08-01 00:00 :00 No [id number] 2.5mg Inhale 0.5 mL every 6 (six) hours as needed for Wheezing. [facility] [place] Nebulizer & Compressor For Neb Elsi 08-01 00:00: 00 08-01 00:00 :00 No [id number] Use as directed [facility] 2.5 mg/0.5 mL nebulizer solution 08-01 00:00: 00 08-01 00:00 :00 No [id number] 2.5mg Inhale 0.5 mL every 6 (six) hours as needed for Wheezing. [facility] [place] Nebulizer & Compressor For Neb Elsi 08-01 00:00: 00 08-01 00:00 :00 No [id number] Use as directed [facility] albuterol 2.5 mg/0.5 mL nebulizer solution 08-01 00:00: 00 08-01 00:00 :00 No [id number] 2.5mg Inhale 0.5 mL every 6 (six) hours as needed for Wheezing. [facility] Nebulizer & Compressor For Neb Elsi 08-01 00:00: 00 08-01 00:00 :00 No [id number] Use as directed [facility] albuterol 2.5 mg/0.5 mL nebulizer solution 08-01 00:00: 00 08-01 00:00 :00 No [id number] 2.5mg Inhale 0.5 mL every 6 (six) hours as needed for Wheezing. [facility] Nebulizer & Compressor For Neb Elsi 16 00:00: 00 08-01 00:00 :00 No [id number] Use as directed [facility] albuterol 2.5 mg/0.5 mL nebulizer solution 16 00:00: 00 08-01 00:00 :00 No [id number] 2.5mg Inhale 0.5 mL every 6 (six) hours as needed for Wheezing. [facility] Nebulizer & Compressor For Neb Elsi 16 00:00: 00 08-01 00:00 :00 No [id number] Use as directed [facility] albuterol 2.5 mg/0.5 mL nebulizer solution 08-01 00:00: 00 08-01 00:00 :00 No [id number] 2.5mg Inhale 0.5 mL every 6 (six) hours as needed for Wheezing. [facility] Nebulizer & Compressor For Neb Elsi 08-01 00:00: 00 08-01 00:00 :00 No [id number] Use as directed [facility] albuterol 2.5 mg/0.5 mL nebulizer solution 08-01 00:00: 00 08-01 00:00 :00 No [id number] 2.5mg Inhale 0.5 mL every 6 (six) hours as needed for Wheezing. [facility] Nebulizer & Compressor For Neb Elsi 08-01 00:00: 00 08-01 00:00 :00 No [id number] Use as directed [facility] gabapentin 300 mg capsule 2022-07 00:00: 00 Yes [id number] 600mg Take 2 capsules by mouth in the morning and 2 capsules at noon and 2 capsules in the evening. [facility] adalimumab (HUMIRA,CF, PEN) 40 mg/0.4 mL injection 2022-07 00:00: 00 Yes [id number] 40mg inject 1 Pen under the skin every 14 (fourteen) days. [facility] gabapentin 300 mg capsule 2022-07 00:00: 00 Yes [id number] 600mg Take 2 capsules by mouth in the morning and 2 capsules at noon and 2 capsules in the evening. [facility] adalimumab (HUMIRA,CF, PEN) 40 mg/0.4 mL injection 2022-07 00:00: 00 Yes [id number] 40mg inject 1 Pen under the skin every 14 (fourteen) days. [facility] gabapentin 300 mg capsule 2022-07 00:00: 00 Yes [id number] 600mg Take 2 capsules by mouth in the morning and 2 capsules at noon and 2 capsules in the evening. [facility] adalimumab (HUMIRA,CF, PEN) 40 mg/0.4 mL injection 2022-07 00:00: 00 Yes [id number] 40mg inject 1 Pen under the skin every 14 (fourteen) days. [facility] gabapentin 300 mg capsule 2022-07 00:00: 00 Yes [id number] 600mg Take 2 capsules by mouth in the morning and 2 capsules at noon and 2 capsules in the evening. [facility] adalimumab (HUMIRA,CF, PEN) 40 mg/0.4 mL injection 2022-07 00:00: 00 Yes [id number] 40mg inject 1 Pen under the skin every 14 (fourteen) days. [facility] gabapentin 300 mg capsule 2022-07 00:00: 00 Yes [id number] 600mg Take 2 capsules by mouth in the morning and 2 capsules at noon and 2 capsules in the evening. [facility] adalimumab (HUMIRA,CF, PEN) 40 mg/0.4 mL injection 2022-07 00:00: 00 Yes [id number] 40mg inject 1 Pen under the skin every 14 (fourteen) days. [facility] gabapentin 300 mg capsule 2022-07 00:00: 00 Yes [id number] 600mg Take 2 capsules by mouth in the morning and 2 capsules at noon and 2 capsules in the evening. [facility] adalimumab (HUMIRA,CF, PEN) 40 mg/0.4 mL injection 2022-07 00:00: 00 Yes [id number] 40mg inject 1 Pen under the skin every 14 (fourteen) days. [facility] gabapentin 300 mg capsule 2022-07 00:00: 00 Yes [id number] 600mg Take 2 capsules by mouth in the morning and 2 capsules at noon and 2 capsules in the evening. [facility] adalimumab (HUMIRA,CF, PEN) 40 mg/0.4 mL injection 2022-07 00:00: 00 Yes [id number] 40mg inject 1 Pen under the skin every 14 (fourteen) days. [facility] gabapentin 300 mg capsule 2022-07 00:00: 00 Yes [id number] 600mg Take 2 capsules by mouth in the morning and 2 capsules at noon and 2 capsules in the evening. [facility] adalimumab (HUMIRA,CF, PEN) 40 mg/0.4 mL injection 2022-07 00:00: 00 Yes [id number] 40mg inject 1 Pen under the skin every 14 (fourteen) days. [facility] gabapentin 300 mg capsule 2022-07 00:00: 00 Yes [id number] 600mg Take 2 capsules by mouth in the morning and 2 capsules at noon and 2 capsules in the evening. [facility] adalimumab (HUMIRA,CF, PEN) 40 mg/0.4 mL injection 2022-07 00:00: 00 Yes [id number] 40mg inject 1 Pen under the skin every 14 (fourteen) days. [facility] gabapentin 300 mg capsule 2022-07 00:00: 00 Yes [id number] 600mg Take 2 capsules by mouth in the morning and 2 capsules at noon and 2 capsules in the evening. [facility] adalimumab (HUMIRA,CF, PEN) 40 mg/0.4 mL injection 2022-07 00:00: 00 Yes [id number] 40mg inject 1 Pen under the skin every 14 (fourteen) days. [facility] gabapentin 300 mg capsule 2022-07 00:00: 00 Yes [id number] 600mg Take 2 capsules by mouth in the morning and 2 capsules at noon and 2 capsules in the evening. [facility] adalimumab (HUMIRA,CF, PEN) 40 mg/0.4 mL injection 2022-07 00:00: 00 Yes [id number] 40mg inject 1 Pen under the skin every 14 (fourteen) days. [facility] gabapentin 300 mg capsule 2022-07 00:00: 00 Yes [id number] 600mg Take 2 capsules by mouth in the morning and 2 capsules at noon and 2 capsules in the evening. [facility] adalimumab (HUMIRA,CF, PEN) 40 mg/0.4 mL injection 2022-07 00:00: 00 Yes [id number] 40mg inject 1 Pen under the skin every 14 (fourteen) days. [facility] gabapentin 300 mg capsule 2022-07 00:00: 00 Yes [id number] 600mg Take 2 capsules by mouth in the morning and 2 capsules at noon and 2 capsules in the evening. [facility] doxycycline hyclate 100 mg capsule 2022-07 00:00: 00 06-22 05:59 :00 Yes [id number] 100mg Take 1 capsule by mouth every 12 (twelve) hours for 7 days. [facility] doxycycline hyclate 100 mg capsule 2022-07 00:00: 00 06-22 05:59 :00 Yes [id number] 100mg Take 1 capsule by mouth every 12 (twelve) hours for 7 days. [facility] doxycycline hyclate 100 mg capsule 2022-07 00:00: 00 06-22 05:59 :00 Yes [id number] 100mg Take 1 capsule by mouth every 12 (twelve) hours for 7 days. [facility] hydroxychlo roquine (PLAQUENIL) 200 mg tablet 2022-07 00:00: 00 Yes [id number] 400mg Take 2 tablets by mouth in the morning. [facility] hydroxychlo roquine (PLAQUENIL) 200 mg tablet 2022-07 00:00: 00 Yes [id number] 400mg Take 2 tablets by mouth in the morning. [facility] hydroxychlo roquine (PLAQUENIL) 200 mg tablet 2022-07 00:00: 00 Yes [id number] 400mg Take 2 tablets by mouth in the morning. [facility] hydroxychlo roquine (PLAQUENIL) 200 mg tablet 2022-07 00:00: 00 Yes [id number] 400mg Take 2 tablets by mouth in the morning. [facility] hydroxychlo roquine (PLAQUENIL) 200 mg tablet 2022-07 00:00: 00 Yes [id number] 400mg Take 2 tablets by mouth in the morning. [facility] hydroxychlo roquine (PLAQUENIL) 200 mg tablet 2022-07 00:00: 00 Yes [id number] 400mg Take 2 tablets by mouth in the morning. [facility] hydroxychlo roquine (PLAQUENIL) 200 mg tablet 2022-07 00:00: 00 Yes [id number] 400mg Take 2 tablets by mouth in the morning. [facility] hydroxychlo roquine (PLAQUENIL) 200 mg tablet 2022-07 00:00: 00 Yes [id number] 400mg Take 2 tablets by mouth in the morning. [facility] hydroxychlo roquine (PLAQUENIL) 200 mg tablet 2022-07 00:00: 00 Yes [id number] 400mg Take 2 tablets by mouth in the morning. [facility] hydroxychlo roquine (PLAQUENIL) 200 mg tablet 2022-07 00:00: 00 Yes [id number] 400mg Take 2 tablets by mouth in the morning. [facility] hydroxychlo roquine (PLAQUENIL) 200 mg tablet 2022-07 00:00: 00 Yes [id number] 400mg Take 2 tablets by mouth in the morning. [facility] hydroxychlo roquine (PLAQUENIL) 200 mg tablet 2022-07 00:00: 00 Yes [id number] 400mg Take 2 tablets by mouth in the morning. [facility] hydroxychlo roquine (PLAQUENIL) 200 mg tablet 2022-07 00:00: 00 Yes [id number] 400mg Take 2 tablets by mouth in the morning. [facility] hydroxychlo roquine (PLAQUENIL) 200 mg tablet 2022-07 00:00: 00 Yes [id number] 400mg Take 2 tablets by mouth in the morning. [facility] hydroxychlo roquine (PLAQUENIL) 200 mg tablet 2022-07 00:00: 00 Yes [id number] 400mg Take 2 tablets by mouth in the morning. [facility] hydroxychlo roquine (PLAQUENIL) 200 mg tablet 2022-07 00:00: 00 Yes [id number] 400mg Take 2 tablets by mouth in the morning. [facility] hydroxychlo roquine (PLAQUENIL) 200 mg tablet 2022-07 00:00: 00 Yes [id number] 400mg Take 2 tablets by mouth in the morning. [facility] hydroxychlo roquine (PLAQUENIL) 200 mg tablet 2022-07 00:00: 00 Yes [id number] 400mg Take 2 tablets by mouth in the morning. [facility] hydroxychlo roquine (PLAQUENIL) 200 mg tablet 2022-07 00:00: 00 Yes [id number] 400mg Take 2 tablets by mouth in the morning. [facility] SERTraline 50 mg tablet 2022-07 00:00: 00 Yes 50mg Take 1 tablet by mouth at bedtime. [facility] SERTraline 50 mg tablet 2022-07 00:00: 00 Yes 50mg Take 1 tablet by mouth at bedtime. [facility] SERTraline 50 mg tablet 2022-07 00:00: 00 Yes 50mg Take 1 tablet by mouth at bedtime. [facility] SERTraline 50 mg tablet 2022-07 00:00: 00 Yes 50mg Take 1 tablet by mouth at bedtime. [facility] SERTraline 50 mg tablet 2022-07 00:00: 00 Yes 50mg Take 1 tablet by mouth at bedtime. [facility] SERTraline 50 mg tablet 2022-07 00:00: 00 Yes 50mg Take 1 tablet by mouth at bedtime. [facility] SERTraline 50 mg tablet 2022-07 00:00: 00 Yes 50mg Take 1 tablet by mouth at bedtime. [facility] SERTraline 50 mg tablet 2022-07 00:00: 00 Yes 50mg Take 1 tablet by mouth at bedtime. [facility] SERTraline 50 mg tablet 2022-07 00:00: 00 Yes 50mg Take 1 tablet by mouth at bedtime. [facility] SERTraline 50 mg tablet 2022-07 00:00: 00 Yes 50mg Take 1 tablet by mouth at bedtime. [facility] SERTraline 50 mg tablet 2022-07 00:00: 00 Yes 50mg Take 1 tablet by mouth at bedtime. [facility] SERTraline 50 mg tablet 2022-07 00:00: 00 Yes 50mg Take 1 tablet by mouth at bedtime. [facility] SERTraline 50 mg tablet 2022-07 00:00: 00 Yes 50mg Take 1 tablet by mouth at bedtime. [facility] SERTraline 50 mg tablet 2022-07 00:00: 00 Yes 50mg Take 1 tablet by mouth at bedtime. [facility] SERTraline 50 mg tablet 2022-07 00:00: 00 Yes 50mg Take 1 tablet by mouth at bedtime. [facility] SERTraline 50 mg tablet 2022-07 00:00: 00 Yes 50mg Take 1 tablet by mouth at bedtime. [facility] SERTraline 50 mg tablet 2022-07 00:00: 00 Yes 50mg Take 1 tablet by mouth at bedtime. [facility] SERTraline 50 mg tablet 2022-07 00:00: 00 Yes 50mg Take 1 tablet by mouth at bedtime. [facility] minoxidiL 2.5 mg tablet 2022-07 0 00:00: 00 Yes 2.5mg Take 1 tablet by mouth in the morning. [facility] minoxidiL 2.5 mg tablet 2022-07 0 00:00: 00 Yes 2.5mg Take 1 tablet by mouth in the morning. [facility] minoxidiL 2.5 mg tablet 2022-07 0 00:00: 00 Yes 2.5mg Take 1 tablet by mouth in the morning. [facility] minoxidiL 2.5 mg tablet 3-1 0-05 00:00: 00 Yes 2.5mg Take 1 tablet by mouth in the morning. [facility] minoxidiL 2.5 mg tablet 2022-1 0-05 00:00: 00 Yes 2.5mg Take 1 tablet by mouth in the morning. [facility] min[facility] 2.5 mg tablet 2022-1 0-05 00:00: 00 Yes 2.5mg Take 1 tablet by mouth in the morning. [facility] minoxidiL 2.5 mg tablet 3-1 0-05 00:00: 00 Yes 2.5mg Take 1 tablet by mouth in the morning. [facility].5 mg tablet 3-1 0-05 00:00: 00 Yes 2.5mg Take 1 tablet by mouth in the morning. [facility] minoxidiL 2.5 mg tablet 3-1 0-05 00:00: 00 Yes 2.5mg Take 1 tablet by mouth in the morning. [facility] minoxidiL 2.5 mg tablet 3-1 0-05 00:00: 00 Yes 2.5mg Take 1 tablet by mouth in the morning. [facility] minoxidiL 2.5 mg tablet 3-1 0-05 00:00: 00 Yes 2.5mg Take 1 tablet by mouth in the morning. [facility] minoxidiL 2.5 mg tablet 3-1 0-05 00:00: 00 Yes 2.5mg Take 1 tablet by mouth in the morning. [facility] minoxidiL 2.5 mg tablet 3-1 0-05 00:00: 00 Yes 2.5mg Take 1 tablet by mouth in the morning. [facility] minoxidiL 2.5 mg tablet 2022-1 0-05 00:00: 00 Yes 2.5mg Take 1 tablet by mouth in the morning. [facility] minoxidiL 2.5 mg tablet 3-1 0-05 00:00: 00 Yes 2.5mg Take 1 tablet by mouth in the morning. [facility] minoxidiL 2.5 mg tablet 2022-07 0- 00:00: 00 Yes 2.5mg Take 1 tablet by mouth in the morning. [facility] minoxidiL 2.5 mg tablet 2022-07 0- 00:00: 00 Yes 2.5mg Take 1 tablet by mouth in the morning. [facility] minoxidiL 2.5 mg tablet 2022-07 0 00:00: 00 Yes 2.5mg Take 1 tablet by mouth in the morning. [facility] OZEMPIC 1 mg/dose (4 mg/3 mL) PnIj 2023-0 9- 00:00: 00 Yes 1mg inject 1 mg under the skin weekly. [facility] OZEMPIC 1 mg/dose (4 mg/3 mL) PnIj 2023-0 - 00:00: 00 Yes 1mg inject 1 mg under the skin weekly. [facility] OZEMPIC 1 mg/dose (4 mg/3 mL) PnIj 2023-0 9- 00:00: 00 Yes 1mg inject 1 mg under the skin weekly. [facility] OZEMPIC 1 mg/dose (4 mg/3 mL) PnIj 2023-0 - 00:00: 00 Yes 1mg inject 1 mg under the skin weekly. [facility] OZEMPIC 1 mg/dose (4 mg/3 mL) PnIj 2023-0 9- 00:00: 00 Yes 1mg inject 1 mg under the skin weekly. [facility] OZEMPIC 1 mg/dose (4 mg/3 mL) PnIj 2023-0 9- 00:00: 00 Yes 1mg inject 1 mg under the skin weekly. [facility] OZEMPIC 1 mg/dose (4 mg/3 mL) PnIj 2023-0 9- 00:00: 00 Yes 1mg inject 1 mg under the skin weekly. [facility] OZEMPIC 1 mg/dose (4 mg/3 mL) PnIj 2023-0 9- 00:00: 00 Yes 1mg inject 1 mg under the skin weekly. [facility] OZEMPIC 1 mg/dose (4 mg/3 mL) PnIj 2023-0 - 00:00: 00 Yes 1mg inject 1 mg under the skin weekly. [facility] OZEMPIC 1 mg/dose (4 mg/3 mL) PnIj 3-0 - 00:00: 00 Yes 1mg inject 1 mg under the skin weekly. [facility] OZEMPIC 1 mg/dose (4 mg/3 mL) PnIj 3-0 - 00:00: 00 Yes 1mg inject 1 mg under the skin weekly. [facility] OZEMPIC 1 mg/dose (4 mg/3 mL) PnIj 3-0 03-24 00:00: 00 Yes 1mg inject 1 mg under the skin weekly. [facility] OZEMPIC 1 mg/dose (4 mg/3 mL) PnIj 3-0 03-24 00:00: 00 Yes 1mg inject 1 mg under the skin weekly. [facility] OZEMPIC 1 mg/dose (4 mg/3 mL) PnIj 3-0 03-24 00:00: 00 Yes 1mg inject 1 mg under the skin weekly. [facility] OZEMPIC 1 mg/dose (4 mg/3 mL) PnIj 3-0 03-24 00:00: 00 Yes 1mg inject 1 mg under the skin weekly. [facility] OZEMPIC 1 mg/dose (4 mg/3 mL) PnIj 3-0 03-24 00:00: 00 Yes 1mg inject 1 mg under the skin weekly. [facility] OZEMPIC 1 mg/dose (4 mg/3 mL) PnIj 3-0 - 00:00: 00 Yes 1mg inject 1 mg under the skin weekly. [facility] OZEMPIC 1 mg/dose (4 mg/3 mL) PnIj 3-0 03-24 00:00: 00 Yes 1mg inject 1 mg under the skin weekly. [facility] GABAP[facility]IN 300 mg capsule 2022-0 03-23 00:00: 00 Yes [id number] TAKE 1 CAPSULE BY MOUTH IN THE MORNING AND AT NOON AND IN THE EVENING [facility] GABAPENTIN 300 mg capsule 3-0 03-23 00:00: 00 Yes [id number] TAKE 1 CAPSULE BY MOUTH IN THE MORNING AND AT NOON AND IN THE EVENING [facility] GABAPENTIN 300 mg capsule 3-0 03-23 00:00: 00 Yes [id number] TAKE 1 CAPSULE BY MOUTH IN THE MORNING AND AT NOON AND IN THE EVENING [facility] adalimumab (HUMIRA,CF, PEN) 40 mg/0.4 mL injection 2022-0 03-23 00:00: 00 Yes [id number] 40mg inject 1 Pen under the skin every 14 (fourteen) days. [facility] GABAPENTIN 300 mg capsule 2022-0 03-23 00:00: 00 Yes [id number] TAKE 1 CAPSULE BY MOUTH IN THE MORNING AND AT NOON AND IN THE EVENING [facility] adalimumab (HUMIRA,CF, PEN) 40 mg/0.4 mL injection 2022-0 03-23 00:00: 00 Yes [id number] 40mg inject 1 Pen under the skin every 14 (fourteen) days. [facility] GABAPENTIN 300 mg capsule 2022-0 03-23 00:00: 00 Yes [id number] TAKE 1 CAPSULE BY MOUTH IN THE MORNING AND AT NOON AND IN THE EVENING [facility] adalimumab (HUMIRA,CF, PEN) 40 mg/0.4 mL injection 2022-0 03-23 00:00: 00 Yes [id number] 40mg inject 1 Pen under the skin every 14 (fourteen) days. [facility] GABAPENTIN 300 mg capsule 2022-0 03-23 00:00: 00 Yes [id number] TAKE 1 CAPSULE BY MOUTH IN THE MORNING AND AT NOON AND IN THE EVENING [facility] adalimumab (HUMIRA,CF, PEN) 40 mg/0.4 mL injection 3-0 03-23 00:00: 00 Yes [id number] 40mg inject 1 Pen under the skin every 14 (fourteen) days. [facility] GABAPENTIN 300 mg capsule 3-0 - 00:00: 00 Yes [id number] TAKE 1 CAPSULE BY MOUTH IN THE MORNING AND AT NOON AND IN THE EVENING [facility] adalimumab (HUMIRA,CF, PEN) 40 mg/0.4 mL injection 3-0 03-23 00:00: 00 Yes [id number] 40mg inject 1 Pen under the skin every 14 (fourteen) days. [facility] GABAPENTIN 300 mg capsule 2022-0 03-23 00:00: 00 Yes [id number] TAKE 1 CAPSULE BY MOUTH IN THE MORNING AND AT NOON AND IN THE EVENING [facility] adalimumab (HUMIRA,CF, PEN) 40 mg/0.4 mL injection 2022-0 03-23 00:00: 00 Yes [id number] 40mg inject 1 Pen under the skin every 14 (fourteen) days. [facility] GABAPENTIN 300 mg capsule 2022-0 03-23 00:00: 00 Yes [id number] TAKE 1 CAPSULE BY MOUTH IN THE MORNING AND AT NOON AND IN THE EVENING [facility] adalimumab (HUMIRA,CF, PEN) 40 mg/0.4 mL injection 2022-0 03-23 00:00: 00 Yes [id number] 40mg inject 1 Pen under the skin every 14 (fourteen) days. [facility] GABAPENTIN 300 mg capsule 2022-0 03-23 00:00: 00 Yes [id number] TAKE 1 CAPSULE BY MOUTH IN THE MORNING AND AT NOON AND IN THE EVENING [facility] adalimumab (HUMIRA,CF, PEN) 40 mg/0.4 mL injection 2022-0 03-23 00:00: 00 Yes [id number] 40mg inject 1 Pen under the skin every 14 (fourteen) days. [facility] GABAPENTIN 300 mg capsule 2022-0 03-23 00:00: 00 Yes [id number] TAKE 1 CAPSULE BY MOUTH IN THE MORNING AND AT NOON AND IN THE EVENING [facility] adalimumab (HUMIRA,CF, PEN) 40 mg/0.4 mL injection 2022-0 - 00:00: 00 Yes [id number] 40mg inject 1 Pen under the skin every 14 (fourteen) days. [facility] GABAPENTIN 300 mg capsule 3-0 - 00:00: 00 Yes [id number] TAKE 1 CAPSULE BY MOUTH IN THE MORNING AND AT NOON AND IN THE EVENING [facility] adalimumab (HUMIRA,CF, PEN) 40 mg/0.4 mL injection 2022-0 03-23 00:00: 00 Yes [id number] 40mg inject 1 Pen under the skin every 14 (fourteen) days. [facility] GABAPENTIN 300 mg capsule 0 03-23 00:00: 00 Yes [id number] TAKE 1 CAPSULE BY MOUTH IN THE MORNING AND AT NOON AND IN THE EVENING [facility] adalimumab (HUMIRA,CF, PEN) 40 mg/0.4 mL injection 2022-0 03-23 00:00: 00 Yes [id number] 40mg inject 1 Pen under the skin every 14 (fourteen) days. [facility] GABAPENTIN 300 mg capsule 2022-0 03-23 00:00: 00 Yes [id number] TAKE 1 CAPSULE BY MOUTH IN THE MORNING AND AT NOON AND IN THE EVENING [facility] adalimumab (HUMIRA,CF, PEN) 40 mg/0.4 mL injection 2022-0 03-23 00:00: 00 Yes [id number] 40mg inject 1 Pen under the skin every 14 (fourteen) days. [facility] GABAPENTIN 300 mg capsule 2022-0 03-23 00:00: 00 Yes [id number] TAKE 1 CAPSULE BY MOUTH IN THE MORNING AND AT NOON AND IN THE EVENING [facility] adalimumab (HUMIRA,CF, PEN) 40 mg/0.4 mL injection 2022-0 03-23 00:00: 00 Yes [id number] 40mg inject 1 Pen under the skin every 14 (fourteen) days. [facility] GABAPENTIN 300 mg capsule 2022-0 03-23 00:00: 00 Yes [id number] TAKE 1 CAPSULE BY MOUTH IN THE MORNING AND AT NOON AND IN THE EVENING [facility] adalimumab (HUMIRA,CF, PEN) 40 mg/0.4 mL injection 2022-0 03-23 00:00: 00 Yes [id number] 40mg inject 1 Pen under the skin every 14 (fourteen) days. [facility] GABAPENTIN 300 mg capsule 3-0 03-23 00:00: 00 Yes [id number] TAKE 1 CAPSULE BY MOUTH IN THE MORNING AND AT NOON AND IN THE EVENING [facility] adalimumab (HUMIRA,CF, PEN) 40 mg/0.4 mL injection 2022-0 03-23 00:00: 00 Yes [id number] 40mg inject 1 Pen under the skin every 14 (fourteen) days. [facility] GABAPENTIN 300 mg capsule 2022-0 03-23 00:00: 00 Yes [id number] TAKE 1 CAPSULE BY MOUTH IN THE MORNING AND AT NOON AND IN THE EVENING [facility] adalimumab (HUMIRA,CF, PEN) 40 mg/0.4 mL injection 2022-0 03-23 00:00: 00 Yes [id number] 40mg inject 1 Pen under the skin every 14 (fourteen) days. [facility] GABAPENTIN 300 mg capsule 2022-0 03-23 00:00: 00 Yes [id number] TAKE 1 CAPSULE BY MOUTH IN THE MORNING AND AT NOON AND IN THE EVENING [facility] adalimumab (HUMIRA,CF, PEN) 40 mg/0.4 mL injection 2022-0 03-23 00:00: 00 Yes [id number] 40mg inject 1 Pen under the skin every 14 (fourteen) days. [facility] GABAPENTIN 300 mg capsule 2022-0 03-23 00:00: 00 Yes [id number] TAKE 1 CAPSULE BY MOUTH IN THE MORNING AND AT NOON AND IN THE EVENING [facility] adalimumab (HUMIRA,CF, PEN) 40 mg/0.4 mL injection 2022-0 03-23 00:00: 00 Yes [id number] 40mg inject 1 Pen under the skin every 14 (fourteen) days. [facility] GABAPENTIN 300 mg capsule 2022-0 03-23 00:00: 00 Yes [id number] TAKE 1 CAPSULE BY MOUTH IN THE MORNING AND AT NOON AND IN THE EVENING [facility] adalimumab (HUMIRA,CF, PEN) 40 mg/0.4 mL injection 2022-0 03-23 00:00: 00 Yes [id number] 40mg inject 1 Pen under the skin every 14 (fourteen) days. [facility] GABAPENTIN 300 mg capsule 3-0 - 00:00: 00 Yes [id number] TAKE 1 CAPSULE BY MOUTH IN THE MORNING AND AT NOON AND IN THE EVENING [facility] adalimumab (HUMIRA,CF, PEN) 40 mg/0.4 mL injection 2022-0 9-07 00:00: 00 Yes [id number] 40mg inject 1 Pen under the skin every 14 (fourteen) days. [facility] GABAPENTIN 300 mg capsule 2022-0 9- 00:00: 00 07-07 00:00 :00 No [id number] TAKE 1 CAPSULE BY MOUTH IN THE MORNING AND AT NOON AND IN THE EVENING [facility] GABAPENTIN 300 mg capsule 0 03-23 00:00: 00 07-07 00:00 :00 No [id number] TAKE 1 CAPSULE BY MOUTH IN THE MORNING AND AT NOON AND IN THE EVENING [facility] adalimumab (HUMIRA,CF, PEN) 40 mg/0.4 mL injection 2022-0 9- 00:00: 00 07-04 00:00 :00 No [id number] 40mg inject 1 Pen under the skin every 14 (fourteen) days. [facility] adalimumab (HUMIRA,CF, PEN) 40 mg/0.4 mL injection 2022-0 9- 00:00: 00 07-04 00:00 :00 No [id number] 40mg inject 1 Pen under the skin every 14 (fourteen) days. [facility] adalimumab (HUMIRA,CF, PEN) 40 mg/0.4 mL injection 2022-0 9- 00:00: 00 07-04 00:00 :00 No [id number] 40mg inject 1 Pen under the skin every 14 (fourteen) days. [facility] SERTraline 100 mg tablet 2022-0 01-09 00:00: 00 Yes [id number] 100mg Take 1 tablet by mouth in the morning. [facility] SERTraline 100 mg tablet 0 01-09 00:00: 00 Yes [id number] 100mg Take 1 tablet by mouth in the morning. [facility] SERTraline 100 mg tablet 2022-0 - 00:00: 00 Yes [id number] 100mg Take 1 tablet by mouth in the morning. [facility] SERTraline 100 mg tablet 2022-0 01-09 00:00: 00 Yes [id number] 100mg Take 1 tablet by mouth in the morning. [facility] SERTraline 100 mg tablet 2022-0 01-09 00:00: 00 Yes [id number] 100mg Take 1 tablet by mouth in the morning. [facility] SERTraline 100 mg tablet 2022-0 01-09 00:00: 00 Yes [id number] 100mg Take 1 tablet by mouth in the morning. [facility] SERTraline 100 mg tablet 2022-0 01-09 00:00: 00 Yes [id number] 100mg Take 1 tablet by mouth in the morning. [facility] SERTraline 100 mg tablet 2022-0 01-09 00:00: 00 Yes [id number] 100mg Take 1 tablet by mouth in the morning. [facility] SERTraline 100 mg tablet 2022-0 01-09 00:00: 00 Yes [id number] 100mg Take 1 tablet by mouth in the morning. [facility] SERTraline 100 mg tablet 2022-0 01-09 00:00: 00 Yes [id number] 100mg Take 1 tablet by mouth in the morning. [facility] SERTraline 100 mg tablet 2022-0 01-09 00:00: 00 Yes [id number] 100mg Take 1 tablet by mouth in the morning. [facility] SERTraline 100 mg tablet 2022-0 01-09 00:00: 00 Yes [id number] 100mg Take 1 tablet by mouth in the morning. [facility] SERTraline 100 mg tablet 2022-0 01-09 00:00: 00 Yes [id number] 100mg Take 1 tablet by mouth in the morning. [facility] SERTraline 100 mg tablet 2022-0 01-09 00:00: 00 Yes [id number] 100mg Take 1 tablet by mouth in the morning. [facility] SERTraline 100 mg tablet 2022-0 01-09 00:00: 00 Yes [id number] 100mg Take 1 tablet by mouth in the morning. [facility] SERTraline 100 mg tablet 2022-0 01-09 00:00: 00 Yes [id number] 100mg Take 1 tablet by mouth in the morning. [facility] SERTraline 100 mg tablet 01-09 00:00: 00 Yes [id number] 100mg Take 1 tablet by mouth in the morning. [facility] SERTraline 100 mg tablet 01-09 00:00: 00 Yes [id number] 100mg Take 1 tablet by mouth in the morning. [facility] SERTraline 100 mg tablet 01-09 00:00: 00 Yes [id number] 100mg Take 1 tablet by mouth in the morning. [facility] SERTraline 100 mg tablet 01-09 00:00: 00 Yes [id number] 100mg Take 1 tablet by mouth in the morning. [facility] SERTraline 100 mg tablet 01-09 00:00: 00 Yes [id number] 100mg Take 1 tablet by mouth in the morning. [facility] SERTraline 100 mg tablet 01-09 00:00: 00 Yes [id number] 100mg Take 1 tablet by mouth in the morning. [facility] SERTraline 100 mg tablet 01-09 00:00: 00 Yes [id number] 100mg Take 1 tablet by mouth in the morning. [facility] SERTraline 100 mg tablet 01-09 00:00: 00 Yes [id number] 100mg Take 1 tablet by mouth in the morning. [facility] SERTraline 100 mg tablet 01-09 00:00: 00 06-14 00:00 :00 No [id number] 100mg Take 1 tablet by mouth in the morning. [facility] SERTraline 100 mg tablet 01-09 00:00: 00 06-14 00:00 :00 No [id number] 100mg Take 1 tablet by mouth in the morning. [facility] icosapent ethyL (VASCEPA) 1 gram capsule 01-06 00:00: 00 Yes [facility] levothyroxi ne 75 mcg tablet 01-06 00:00: 00 Yes [facility] icosapent ethyL (VASCEPA) 1 gram capsule 0 01-06 00:00: 00 Yes [facility] levothyroxi ne 75 mcg tablet 0 01-06 00:00: 00 Yes [facility] icosapent ethyL (VASCEPA) 1 gram capsule 0 01-06 00:00: 00 Yes [facility] levothyroxi ne 75 mcg tablet 0 01-06 00:00: 00 Yes [facility] icosapent ethyL (VASCEPA) 1 gram capsule 0 01-06 00:00: 00 Yes [facility] levothyroxi ne 75 mcg tablet 0 01-06 00:00: 00 Yes [facility] icosapent ethyL (VASCEPA) 1 gram capsule 0 01-06 00:00: 00 Yes [facility] levothyroxi ne 75 mcg tablet 0 01-06 00:00: 00 Yes [facility] icosapent ethyL (VASCEPA) 1 gram capsule 0 01-06 00:00: 00 Yes [facility] levothyroxi ne 75 mcg tablet 0 01-06 00:00: 00 Yes [facility] icosapent ethyL (VASCEPA) 1 gram capsule 01-06 00:00: 00 Yes [facility] levothyroxi ne 75 mcg tablet 0 01-06 00:00: 00 Yes [facility] icosapent ethyL (VASCEPA) 1 gram capsule 0 01-06 00:00: 00 Yes [facility] levothyroxi ne 75 mcg tablet 0 01-06 00:00: 00 Yes [facility] icosapent ethyL (VASCEPA) 1 gram capsule 0 01-06 00:00: 00 Yes [facility] levothyroxi ne 75 mcg tablet 0 01-06 00:00: 00 Yes [facility] icosapent ethyL (VASCEPA) 1 gram capsule 20201-06 00:00: 00 Yes [facility] levothyroxi ne 75 mcg tablet 01-06 00:00: 00 Yes [facility] icosapent ethyL (VASCEPA) 1 gram capsule 01-06 00:00: 00 Yes [facility] levothyroxi ne 75 mcg tablet 01-06 00:00: 00 Yes [facility] icosapent ethyL (VASCEPA) 1 gram capsule 01-06 00:00: 00 Yes [facility] levothyroxi ne 75 mcg tablet 01-06 00:00: 00 Yes [facility] icosapent ethyL (VASCEPA) 1 gram capsule 01-06 00:00: 00 Yes [facility] levothyroxi ne 75 mcg tablet 01-06 00:00: 00 Yes [facility] icosapent ethyL (VASCEPA) 1 gram capsule 01-06 00:00: 00 Yes [facility] levothyroxi ne 75 mcg tablet 01-06 00:00: 00 Yes [facility] icosapent ethyL (VASCEPA) 1 gram capsule 01-06 00:00: 00 Yes [facility] levothyroxi ne 75 mcg tablet 01-06 00:00: 00 Yes [facility] icosapent ethyL (VASCEPA) 1 gram capsule 01-06 00:00: 00 Yes [facility] levothyroxi ne 75 mcg tablet 01-06 00:00: 00 Yes [facility] icosapent ethyL (VASCEPA) 1 gram capsule 01-06 00:00: 00 Yes [facility] levothyroxi ne 75 mcg tablet 01-06 00:00: 00 Yes [facility] [place] icosapent ethyL (VASCEPA) 1 gram capsule 01-06 00:00: 00 Yes [facility] [place] levothyroxi ne 75 mcg tablet 01-06 00:00: 00 Yes [facility] icosapent ethyL (VASCEPA) 1 gram capsule 01-06 00:00: 00 Yes [facility] [place] levothyroxi ne 75 mcg tablet 01-06 00:00: 00 Yes [facility] icosapent ethyL (VASCEPA) 1 gram capsule 01-06 00:00: 00 Yes [facility] levothyroxi ne 75 mcg tablet 01-06 00:00: 00 Yes [facility] icosapent ethyL (VASCEPA) 1 gram capsule 01-06 00:00: 00 Yes [facility] levothyroxi ne 75 mcg tablet 01-06 00:00: 00 Yes [facility] icosapent ethyL (VASCEPA) 1 gram capsule 01-06 00:00: 00 Yes [facility] levothyroxi ne 75 mcg tablet 01-06 00:00: 00 Yes [facility] icosapent ethyL (VASCEPA) 1 gram capsule 01-06 00:00: 00 Yes [facility] levothyroxi ne 75 mcg tablet 01-06 00:00: 00 Yes [facility] icosapent ethyL (VASCEPA) 1 gram capsule 01-06 00:00: 00 Yes [facility] levothyroxi ne 75 mcg tablet 01-06 00:00: 00 Yes [facility] icosapent ethyL (VASCEPA) 1 gram capsule 01-06 00:00: 00 Yes 1g Take 1 capsule by mouth at bedtime. [facility] levothyroxi ne 75 mcg tablet 01-06 00:00: 00 Yes 75ug Take 1 tablet by mouth every morning. [facility] icosapent ethyL (VASCEPA) 1 gram capsule 01-06 00:00: 00 Yes 1g Take 1 capsule by mouth at bedtime. [facility] levothyroxi ne 75 mcg tablet 0 01-06 00:00: 00 Yes 75ug Take 1 tablet by mouth every morning. [facility] icosapent ethyL (VASCEPA) 1 gram capsule 0 01-06 00:00: 00 Yes 1g Take 1 capsule by mouth at bedtime. [facility] levothyroxi ne 75 mcg tablet 2022-0 01-06 00:00: 00 Yes 75ug Take 1 tablet by mouth every morning. [facility] icosapent ethyL (VASCEPA) 1 gram capsule 2022-0 01-06 00:00: 00 Yes 1g Take 1 capsule by mouth at bedtime. [facility] levothyroxi ne 75 mcg tablet 0 01-06 00:00: 00 Yes 75ug Take 1 tablet by mouth every morning. [facility] icosapent ethyL (VASCEPA) 1 gram capsule 0 01-06 00:00: 00 Yes 1g Take 1 capsule by mouth at bedtime. [facility] levothyroxi ne 75 mcg tablet 2022-0 01-06 00:00: 00 Yes 75ug Take 1 tablet by mouth every morning. [facility] icosapent ethyL (VASCEPA) 1 gram capsule 0 01-06 00:00: 00 Yes 1g Take 1 capsule by mouth at bedtime. [facility] levothyroxi ne 75 mcg tablet 0 01-06 00:00: 00 Yes 75ug Take 1 tablet by mouth every morning. [facility] icosapent ethyL (VASCEPA) 1 gram capsule 0 01-06 00:00: 00 Yes 1g Take 1 capsule by mouth at bedtime. [facility] levothyroxi ne 75 mcg tablet 2022-0 01-06 00:00: 00 Yes 75ug Take 1 tablet by mouth every morning. [facility] icosapent ethyL (VASCEPA) 1 gram capsule 2022-0 01-06 00:00: 00 Yes 1g Take 1 capsule by mouth at bedtime. [facility] levothyroxi ne 75 mcg tablet 2022-0 01-06 00:00: 00 Yes 75ug Take 1 tablet by mouth every morning. [facility] icosapent ethyL (VASCEPA) 1 gram capsule 0 01-06 00:00: 00 Yes 1g Take 1 capsule by mouth at bedtime. [facility] levothyroxi ne 75 mcg tablet 0 01-06 00:00: 00 Yes 75ug Take 1 tablet by mouth every morning. [facility] icosapent ethyL (VASCEPA) 1 gram capsule 0 01-06 00:00: 00 Yes 1g Take 1 capsule by mouth at bedtime. [facility] levothyroxi ne 75 mcg tablet 0 01-06 00:00: 00 Yes 75ug Take 1 tablet by mouth every morning. [facility] icosapent ethyL (VASCEPA) 1 gram capsule 0 01-06 00:00: 00 Yes 1g Take 1 capsule by mouth at bedtime. [facility] levothyroxi ne 75 mcg tablet 0 01-06 00:00: 00 Yes 75ug Take 1 tablet by mouth every morning. [facility] icosapent ethyL (VASCEPA) 1 gram capsule 0 01-06 00:00: 00 Yes 1g Take 1 capsule by mouth at bedtime. [facility] levothyroxi ne 75 mcg tablet 0 01-06 00:00: 00 Yes 75ug Take 1 tablet by mouth every morning. [facility] icosapent ethyL (VASCEPA) 1 gram capsule 0 01-06 00:00: 00 Yes 1g Take 1 capsule by mouth at bedtime. [facility] levothyroxi ne 75 mcg tablet 0 01-06 00:00: 00 Yes 75ug Take 1 tablet by mouth every morning. [facility] icosapent ethyL (VASCEPA) 1 gram capsule 0 01-06 00:00: 00 Yes 1g Take 1 capsule by mouth at bedtime. [facility] levothyroxi ne 75 mcg tablet 2022-0 01-06 00:00: 00 Yes 75ug Take 1 tablet by mouth every morning. [facility] icosapent ethyL (VASCEPA) 1 gram capsule 0 01-06 00:00: 00 Yes 1g Take 1 capsule by mouth at bedtime. [facility] levothyroxi ne 75 mcg tablet 0 01-06 00:00: 00 Yes 75ug Take 1 tablet by mouth every morning. [facility] icosapent ethyL (VASCEPA) 1 gram capsule 2022-0 01-06 00:00: 00 Yes 1g Take 1 capsule by mouth at bedtime. [facility] levothyroxi ne 75 mcg tablet 2022-0 01-06 00:00: 00 Yes 75ug Take 1 tablet by mouth every morning. [facility] icosapent ethyL (VASCEPA) 1 gram capsule 01-06 00:00: 00 Yes 1g Take 1 capsule by mouth at bedtime. [facility] levothyroxi ne 75 mcg tablet 2022-0 01-06 00:00: 00 Yes 75ug Take 1 tablet by mouth every morning. [facility] icosapent ethyL (VASCEPA) 1 gram capsule 01-06 00:00: 00 Yes 1g Take 1 capsule by mouth at bedtime. [facility] levothyroxi ne 75 mcg tablet 01-06 00:00: 00 Yes 75ug Take 1 tablet by mouth every morning. [facility] hydrocortis one 2.5 % rectal cream 12-27 00:00: 00 Yes APPLY TOPICALLY TO THE AFFECTED AREA TWICE DAILY [facility] hydrocortis one 2.5 % rectal cream 0 12-27 00:00: 00 Yes APPLY TOPICALLY TO THE AFFECTED AREA TWICE DAILY [facility] hydrocortis one 2.5 % rectal cream 0 12-27 00:00: 00 Yes APPLY TOPICALLY TO THE AFFECTED AREA TWICE DAILY [facility] hydrocortis one 2.5 % rectal cream 2022-0 12-27 00:00: 00 Yes APPLY TOPICALLY TO THE AFFECTED AREA TWICE DAILY [facility] hydrocortis one 2.5 % rectal cream 0 12-27 00:00: 00 Yes APPLY TOPICALLY TO THE AFFECTED AREA TWICE DAILY [facility] hydrocortis one 2.5 % rectal cream 2022-0 12-27 00:00: 00 Yes APPLY TOPICALLY TO THE AFFECTED AREA TWICE DAILY [facility] hydrocortis one 2.5 % rectal cream 2022-0 12-27 00:00: 00 Yes APPLY TOPICALLY TO THE AFFECTED AREA TWICE DAILY [facility] hydrocortis one 2.5 % rectal cream 2022-0 12-27 00:00: 00 Yes APPLY TOPICALLY TO THE AFFECTED AREA TWICE DAILY [facility] hydrocortis one 2.5 % rectal cream 2022-0 12-27 00:00: 00 Yes APPLY TOPICALLY TO THE AFFECTED AREA TWICE DAILY [facility] hydrocortis one 2.5 % rectal cream 2022-0 12-27 00:00: 00 Yes APPLY TOPICALLY TO THE AFFECTED AREA TWICE DAILY [facility] hydrocortis one 2.5 % rectal cream 2022-0 12-27 00:00: 00 Yes APPLY TOPICALLY TO THE AFFECTED AREA TWICE DAILY [facility] hydrocortis one 2.5 % rectal cream 2022-0 12-27 00:00: 00 Yes APPLY TOPICALLY TO THE AFFECTED AREA TWICE DAILY [facility] hydrocortis one 2.5 % rectal cream 2022-0 12-27 00:00: 00 Yes APPLY TOPICALLY TO THE AFFECTED AREA TWICE DAILY [facility] hydrocortis one 2.5 % rectal cream 2022-0 12-27 00:00: 00 Yes APPLY TOPICALLY TO THE AFFECTED AREA TWICE DAILY [facility] hydrocortis one 2.5 % rectal cream 2022-0 12-27 00:00: 00 Yes APPLY TOPICALLY TO THE AFFECTED AREA TWICE DAILY [facility] hydrocortis one 2.5 % rectal cream 2022-0 12-27 00:00: 00 Yes APPLY TOPICALLY TO THE AFFECTED AREA TWICE DAILY [facility] hydrocortis one 2.5 % rectal cream 2022-0 13 00:00: 00 Yes APPLY TOPICALLY TO THE AFFECTED AREA TWICE DAILY [facility] hydrocortis one 2.5 % rectal cream 2022-0 12-27 00:00: 00 Yes APPLY TOPICALLY TO THE AFFECTED AREA TWICE DAILY [facility] hydrocortis one 2.5 % rectal cream 0 12-27 00:00: 00 Yes APPLY TOPICALLY TO THE AFFECTED AREA TWICE DAILY [facility] hydrocortis one 2.5 % rectal cream 0 12-27 00:00: 00 Yes APPLY TOPICALLY TO THE AFFECTED AREA TWICE DAILY [facility] hydrocortis one 2.5 % rectal cream 0 12-27 00:00: 00 Yes APPLY TOPICALLY TO THE AFFECTED AREA TWICE DAILY [facility] hydrocortis one 2.5 % rectal cream 2022-0 12-27 00:00: 00 Yes APPLY TOPICALLY TO THE AFFECTED AREA TWICE DAILY [facility] hydrocortis one 2.5 % rectal cream 2022-0 12-27 00:00: 00 Yes APPLY TOPICALLY TO THE AFFECTED AREA TWICE DAILY [facility] hydrocortis one 2.5 % rectal cream 0 12-27 00:00: 00 Yes APPLY TOPICALLY TO THE AFFECTED AREA TWICE DAILY [facility] OZEMPIC 0.25 mg or 0.5 mg (2 mg/3 mL) PnIj 3-0 12-23 00:00: 00 Yes INJECT 0.5MG UNDER THE SKIN EVERY WEEK [facility] OZEMPIC 0.25 mg or 0.5 mg (2 mg/3 mL) PnIj 3-0 12-23 00:00: 00 Yes INJECT 0.5MG UNDER THE SKIN EVERY WEEK [facility] OZEMPIC 0.25 mg or 0.5 mg (2 mg/3 mL) PnIj 3-0 12-23 00:00: 00 Yes INJECT 0.5MG UNDER THE SKIN EVERY WEEK [facility] OZEMPIC 0.25 mg or 0.5 mg (2 mg/3 mL) PnIj 3-0 12-23 00:00: 00 Yes INJECT 0.5MG UNDER THE SKIN EVERY WEEK [facility] OZEMPIC 0.25 mg or 0.5 mg (2 mg/3 mL) PnIj 2023-0 12-23 00:00: 00 Yes INJECT 0.5MG UNDER THE SKIN EVERY WEEK [facility] OZEMPIC 0.25 mg or 0.5 mg (2 mg/3 mL) PnIj 2023-0 12-23 00:00: 00 Yes INJECT 0.5MG UNDER THE SKIN EVERY WEEK [facility] OZEMPIC 0.25 mg or 0.5 mg (2 mg/3 mL) PnIj 2023-0 12-23 00:00: 00 Yes INJECT 0.5MG UNDER THE SKIN EVERY WEEK [facility] OZEMPIC 0.25 mg or 0.5 mg (2 mg/3 mL) PnIj 2023-0 12-23 00:00: 00 Yes INJECT 0.5MG UNDER THE SKIN EVERY WEEK [facility] OZEMPIC 0.25 mg or 0.5 mg (2 mg/3 mL) PnIj 2023-0 12-23 00:00: 00 Yes INJECT 0.5MG UNDER THE SKIN EVERY WEEK [facility] OZEMPIC 0.25 mg or 0.5 mg (2 mg/3 mL) PnIj 2023-0 12-23 00:00: 00 Yes INJECT 0.5MG UNDER THE SKIN EVERY WEEK [facility] OZEMPIC 0.25 mg or 0.5 mg (2 mg/3 mL) PnIj 2023-0 12-23 00:00: 00 Yes INJECT 0.5MG UNDER THE SKIN EVERY WEEK [facility] OZEMPIC 0.25 mg or 0.5 mg (2 mg/3 mL) PnIj 2023-0 12-23 00:00: 00 Yes INJECT 0.5MG UNDER THE SKIN EVERY WEEK [facility] OZEMPIC 0.25 mg or 0.5 mg (2 mg/3 mL) PnIj 2023-0 12-23 00:00: 00 Yes INJECT 0.5MG UNDER THE SKIN EVERY WEEK [facility] OZEMPIC 0.25 mg or 0.5 mg (2 mg/3 mL) PnIj 2023-0 12-23 00:00: 00 Yes INJECT 0.5MG UNDER THE SKIN EVERY WEEK [facility] OZEMPIC 0.25 mg or 0.5 mg (2 mg/3 mL) PnIj 2023-0 12-23 00:00: 00 Yes INJECT 0.5MG UNDER THE SKIN EVERY WEEK [facility] OZEMPIC 0.25 mg or 0.5 mg (2 mg/3 mL) PnIj 2022-0 12-23 00:00: 00 Yes INJECT 0.5MG UNDER THE SKIN EVERY WEEK [facility] OZEMPIC 0.25 mg or 0.5 mg (2 mg/3 mL) PnIj 3-0 12-23 00:00: 00 Yes INJECT 0.5MG UNDER THE SKIN EVERY WEEK [facility] OZEMPIC 0.25 mg or 0.5 mg (2 mg/3 mL) PnIj 3-0 12-23 00:00: 00 Yes INJECT 0.5MG UNDER THE SKIN EVERY WEEK [facility] OZEMPIC 0.25 mg or 0.5 mg (2 mg/3 mL) PnIj 3-0 12-23 00:00: 00 Yes INJECT 0.5MG UNDER THE SKIN EVERY WEEK [facility] OZEMPIC 0.25 mg or 0.5 mg (2 mg/3 mL) PnIj 3-0 12-23 00:00: 00 Yes INJECT 0.5MG UNDER THE SKIN EVERY WEEK [facility] OZEMPIC 0.25 mg or 0.5 mg (2 mg/3 mL) PnIj 2022-0 12-23 00:00: 00 Yes INJECT 0.5MG UNDER THE SKIN EVERY WEEK [facility] OZEMPIC 0.25 mg or 0.5 mg (2 mg/3 mL) PnIj 3-0 12-23 00:00: 00 Yes INJECT 0.5MG UNDER THE SKIN EVERY WEEK [facility] OZEMPIC 0.25 mg or 0.5 mg (2 mg/3 mL) PnIj 3-0 12-23 00:00: 00 Yes INJECT 0.5MG UNDER THE SKIN EVERY WEEK [facility] OZEMPIC 0.25 mg or 0.5 mg (2 mg/3 mL) PnIj 3-0 12-23 00:00: 00 Yes INJECT 0.5MG UNDER THE SKIN EVERY WEEK [facility] hydrOXYchlo roQUINE (PLAQUENIL) 200 mg tablet 0 5-17 00:00: 00 Yes [id number] 400mg Take 2 tablets by mouth in the morning. [facility] hydrOXYchlo roQUINE (PLAQUENIL) 200 mg tablet 0 -17 00:00: 00 Yes [id number] 400mg Take 2 tablets by mouth in the morning. [facility] hydrOXYchlo roQUINE (PLAQUENIL) 200 mg tablet 2022-0 -17 00:00: 00 Yes [id number] 400mg Take 2 tablets by mouth in the morning. [facility] hydrOXYchlo roQUINE (PLAQUENIL) 200 mg tablet 2022-0 -17 00:00: 00 Yes [id number] 400mg Take 2 tablets by mouth in the morning. [facility] hydrOXYchlo roQUINE (PLAQUENIL) 200 mg tablet 2022-0 -17 00:00: 00 Yes [id number] 400mg Take 2 tablets by mouth in the morning. [facility] hydrOXYchlo roQUINE (PLAQUENIL) 200 mg tablet 2022-0 17 00:00: 00 Yes [id number] 400mg Take 2 tablets by mouth in the morning. [facility] hydrOXYchlo roQUINE (PLAQUENIL) 200 mg tablet 2022-0 17 00:00: 00 Yes [id number] 400mg Take 2 tablets by mouth in the morning. [facility] hydrOXYchlo roQUINE (PLAQUENIL) 200 mg tablet 2022-0 -17 00:00: 00 Yes [id number] 400mg Take 2 tablets by mouth in the morning. [facility] hydrOXYchlo roQUINE (PLAQUENIL) 200 mg tablet 2022-0 -17 00:00: 00 Yes [id number] 400mg Take 2 tablets by mouth in the morning. [facility] hydrOXYchlo roQUINE (PLAQUENIL) 200 mg tablet 2022-0 -17 00:00: 00 Yes [id number] 400mg Take 2 tablets by mouth in the morning. [facility] hydrOXYchlo roQUINE (PLAQUENIL) 200 mg tablet 2022-0 -17 00:00: 00 Yes [id number] 400mg Take 2 tablets by mouth in the morning. [facility] hydrOXYchlo roQUINE (PLAQUENIL) 200 mg tablet 0 -17 00:00: 00 Yes [id number] 400mg Take 2 tablets by mouth in the morning. [facility] hydrOXYchlo roQUINE (PLAQUENIL) 200 mg tablet 2022-0 -17 00:00: 00 Yes [id number] 400mg Take 2 tablets by mouth in the morning. [facility] hydrOXYchlo roQUINE (PLAQUENIL) 200 mg tablet 2022-0 -17 00:00: 00 Yes [id number] 400mg Take 2 tablets by mouth in the morning. [facility] hydrOXYchlo roQUINE (PLAQUENIL) 200 mg tablet 2022-0 -17 00:00: 00 Yes [id number] 400mg Take 2 tablets by mouth in the morning. [facility] hydrOXYchlo roQUINE (PLAQUENIL) 200 mg tablet 2022-0 17 00:00: 00 Yes [id number] 400mg Take 2 tablets by mouth in the morning. [facility] hydrOXYchlo roQUINE (PLAQUENIL) 200 mg tablet 2022-0 17 00:00: 00 Yes [id number] 400mg Take 2 tablets by mouth in the morning. [facility] hydrOXYchlo roQUINE (PLAQUENIL) 200 mg tablet 2022-0 -17 00:00: 00 Yes [id number] 400mg Take 2 tablets by mouth in the morning. [facility] hydrOXYchlo roQUINE (PLAQUENIL) 200 mg tablet 2022-0 -17 00:00: 00 Yes [id number] 400mg Take 2 tablets by mouth in the morning. [facility] hydrOXYchlo roQUINE (PLAQUENIL) 200 mg tablet 2022-0 -17 00:00: 00 Yes [id number] 400mg Take 2 tablets by mouth in the morning. [facility] hydrOXYchlo roQUINE (PLAQUENIL) 200 mg tablet 2022-0 -17 00:00: 00 Yes [id number] 400mg Take 2 tablets by mouth in the morning. [facility] hydrOXYchlo roQUINE (PLAQUENIL) 200 mg tablet 0 -17 00:00: 00 Yes [id number] 400mg Take 2 tablets by mouth in the morning. [facility] hydrOXYchlo roQUINE (PLAQUENIL) 200 mg tablet 2022-0 -17 00:00: 00 Yes [id number] 400mg Take 2 tablets by mouth in the morning. [facility] hydrOXYchlo roQUINE (PLAQUENIL) 200 mg tablet 2022-0 -17 00:00: 00 Yes [id number] 400mg Take 2 tablets by mouth in the morning. [facility] hydrOXYchlo roQUINE (PLAQUENIL) 200 mg tablet 2022-0 -17 00:00: 00 Yes [id number] 400mg Take 2 tablets by mouth in the morning. [facility] hydrOXYchlo roQUINE (PLAQUENIL) 200 mg tablet 2022-0 17 00:00: 00 Yes [id number] 400mg Take 2 tablets by mouth in the morning. [facility] hydrOXYchlo roQUINE (PLAQUENIL) 200 mg tablet 2022-0 17 00:00: 00 Yes [id number] 400mg Take 2 tablets by mouth in the morning. [facility] hydrOXYchlo roQUINE (PLAQUENIL) 200 mg tablet 2022-0 -17 00:00: 00 Yes [id number] 400mg Take 2 tablets by mouth in the morning. [facility] hydrOXYchlo roQUINE (PLAQUENIL) 200 mg tablet 2022-0 -17 00:00: 00 Yes [id number] 400mg Take 2 tablets by mouth in the morning. [facility] hydrOXYchlo roQUINE (PLAQUENIL) 200 mg tablet 2022-0 -17 00:00: 00 Yes [id number] 400mg Take 2 tablets by mouth in the morning. [facility] hydrOXYchlo roQUINE (PLAQUENIL) 200 mg tablet 0 5-17 00:00: 00 Yes [id number] 400mg Take 2 tablets by mouth in the morning. [facility] hydrOXYchlo roQUINE (PLAQUENIL) 200 mg tablet 0 17 00:00: 00 Yes [id number] 400mg Take 2 tablets by mouth in the morning. [facility] hydrOXYchlo roQUINE (PLAQUENIL) 200 mg tablet 0 11-30 00:00: 00 Yes [id number] 400mg Take 2 tablets by mouth in the morning. [facility] hydrOXYchlo roQUINE (PLAQUENIL) 200 mg tablet 0 11-30 00:00: 00 Yes [id number] 400mg Take 2 tablets by mouth in the morning. [facility] hydrOXYchlo roQUINE (PLAQUENIL) 200 mg tablet 0 11-30 00:00: 00 Yes [id number] 400mg Take 2 tablets by mouth in the morning. [facility] hydrOXYchlo roQUINE (PLAQUENIL) 200 mg tablet 0 11-30 00:00: 00 Yes [id number] 400mg Take 2 tablets by mouth in the morning. [facility] hydrOXYchlo roQUINE (PLAQUENIL) 200 mg tablet 11-30 00:00: 00 05-30 00:00 :00 No [id number] 400mg Take 2 tablets by mouth in the morning. [facility] adalimumab (HUMIRA,CF, PEN) 40 mg/0.4 mL injection 11-21 00:00: 00 Yes [id number] 40mg inject 1 Pen under the skin every 14 (fourteen) days. [facility] adalimumab (HUMIRA,CF, PEN) 40 mg/0.4 mL injection 11-21 00:00: 00 Yes [id number] 40mg inject 1 Pen under the skin every 14 (fourteen) days. [facility] adalimumab (HUMIRA,CF, PEN) 40 mg/0.4 mL injection 0 11-21 00:00: 00 Yes [id number] 40mg inject 1 Pen under the skin every 14 (fourteen) days. [facility] adalimumab (HUMIRA,CF, PEN) 40 mg/0.4 mL injection 2022-0 5-08 00:00: 00 Yes [id number] 40mg inject 1 Pen under the skin every 14 (fourteen) days. [facility] adalimumab (HUMIRA,CF, PEN) 40 mg/0.4 mL injection 2023-0 5-08 00:00: 00 Yes [id number] 40mg inject 1 Pen under the skin every 14 (fourteen) days. [facility] adalimumab (HUMIRA,CF, PEN) 40 mg/0.4 mL injection 2022-0 -08 00:00: 00 Yes [id number] 40mg inject 1 Pen under the skin every 14 (fourteen) days. [facility] adalimumab (HUMIRA,CF, PEN) 40 mg/0.4 mL injection 2022-0 -08 00:00: 00 Yes [id number] 40mg inject 1 Pen under the skin every 14 (fourteen) days. [facility] adalimumab (HUMIRA,CF, PEN) 40 mg/0.4 mL injection 2022-0 -08 00:00: 00 Yes [id number] 40mg inject 1 Pen under the skin every 14 (fourteen) days. [facility] adalimumab (HUMIRA,CF, PEN) 40 mg/0.4 mL injection 2022-0 -08 00:00: 00 Yes [id number] 40mg inject 1 Pen under the skin every 14 (fourteen) days. [facility] adalimumab (HUMIRA,CF, PEN) 40 mg/0.4 mL injection 2022-0 5-08 00:00: 00 Yes [id number] 40mg inject 1 Pen under the skin every 14 (fourteen) days. [facility] adalimumab (HUMIRA,CF, PEN) 40 mg/0.4 mL injection 3-0 5-08 00:00: 00 Yes [id number] 40mg inject 1 Pen under the skin every 14 (fourteen) days. [facility] adalimumab (HUMIRA,CF, PEN) 40 mg/0.4 mL injection 2023-0 5-08 00:00: 00 Yes [id number] 40mg inject 1 Pen under the skin every 14 (fourteen) days. [facility] adalimumab (HUMIRA,CF, PEN) 40 mg/0.4 mL injection 0 11-21 00:00: 00 Yes [id number] 40mg inject 1 Pen under the skin every 14 (fourteen) days. [facility] adalimumab (HUMIRA,CF, PEN) 40 mg/0.4 mL injection 2022-0 11-21 00:00: 00 Yes [id number] 40mg inject 1 Pen under the skin every 14 (fourteen) days. [facility] adalimumab (HUMIRA,CF, PEN) 40 mg/0.4 mL injection 2022-0 11-21 00:00: 00 Yes [id number] 40mg inject 1 Pen under the skin every 14 (fourteen) days. [facility] adalimumab (HUMIRA,CF, PEN) 40 mg/0.4 mL injection 2022-0 11-21 00:00: 00 Yes [id number] 40mg inject 1 Pen under the skin every 14 (fourteen) days. [facility] adalimumab (HUMIRA,CF, PEN) 40 mg/0.4 mL injection 2022-0 11-21 00:00: 00 Yes [id number] 40mg inject 1 Pen under the skin every 14 (fourteen) days. [facility] adalimumab (HUMIRA,CF, PEN) 40 mg/0.4 mL injection 2022-0 11-21 00:00: 00 Yes [id number] 40mg inject 1 Pen under the skin every 14 (fourteen) days. [facility] adalimumab (HUMIRA,CF, PEN) 40 mg/0.4 mL injection 2022-0 08 00:00: 00 Yes [id number] 40mg inject 1 Pen under the skin every 14 (fourteen) days. [facility] adalimumab (HUMIRA,CF, PEN) 40 mg/0.4 mL injection 2022-0 -08 00:00: 00 Yes [id number] 40mg inject 1 Pen under the skin every 14 (fourteen) days. [facility] adalimumab (HUMIRA,CF, PEN) 40 mg/0.4 mL injection 08 00:00: 00 03-23 00:00 :00 No [id number] 40mg inject 1 Pen under the skin every 14 (fourteen) days. [facility] estradioL (CLIMARA) 0.025 mg/24 hr patch 0 10-13 00:00: 00 Yes 1{patch } Apply 1 Patch to skin weekly. [facility] estradioL (CLIMARA) 0.025 mg/24 hr patch 10-13 00:00: 00 Yes 1{patch } Apply 1 Patch to skin weekly. [facility] benzonatate (TESSALON PERLES) 100 mg capsule 10-13 00:00: 00 Yes [id number] 100mg Take 1 capsule by mouth every 8 (eight) hours as needed for Cough. [facility] montelukast 10 mg tablet 0 10-13 00:00: 00 Yes [id number] 10mg Take 1 tablet by mouth in the morning. [facility] estradioL (CLIMARA) 0.025 mg/24 hr patch 0 10-13 00:00: 00 Yes 1{patch } Apply 1 Patch to skin weekly. [facility] benzonatate (TESSALON PERLES) 100 mg capsule 0 10-13 00:00: 00 Yes [id number] 100mg Take 1 capsule by mouth every 8 (eight) hours as needed for Cough. [facility] montelukast 10 mg tablet 2022-0 30 00:00: 00 Yes [id number] 10mg Take 1 tablet by mouth in the morning. [facility] estradioL (CLIMARA) 0.025 mg/24 hr patch 0 30 00:00: 00 Yes 1{patch } Apply 1 Patch to skin weekly. [facility] benzonatate (TESSALON PERLES) 100 mg capsule 2022-0 30 00:00: 00 Yes [id number] 100mg Take 1 capsule by mouth every 8 (eight) hours as needed for Cough. [facility] montelukast 10 mg tablet 2022-0 3-30 00:00: 00 Yes [id number] 10mg Take 1 tablet by mouth in the morning. [facility] estradioL (CLIMARA) 0.025 mg/24 hr patch 2022-0 30 00:00: 00 Yes 1{patch } Apply 1 Patch to skin weekly. [facility] benzonatate (TESSALON PERLES) 100 mg capsule 2022-0 30 00:00: 00 Yes [id number] 100mg Take 1 capsule by mouth every 8 (eight) hours as needed for Cough. [facility] montelukast 10 mg tablet 2022-0 30 00:00: 00 Yes [id number] 10mg Take 1 tablet by mouth in the morning. [facility] estradioL (CLIMARA) 0.025 mg/24 hr patch 2022-0 30 00:00: 00 Yes 1{patch } Apply 1 Patch to skin weekly. [facility] benzonatate (TESSALON PERLES) 100 mg capsule 2022-0 30 00:00: 00 Yes [id number] 100mg Take 1 capsule by mouth every 8 (eight) hours as needed for Cough. [facility] montelukast 10 mg tablet 2022-0 30 00:00: 00 Yes [id number] 10mg Take 1 tablet by mouth in the morning. [facility] estradioL (CLIMARA) 0.025 mg/24 hr patch 2022-0 30 00:00: 00 Yes 1{patch } Apply 1 Patch to skin weekly. [facility] benzonatate (TESSALON PERLES) 100 mg capsule 2022-0 30 00:00: 00 Yes [id number] 100mg Take 1 capsule by mouth every 8 (eight) hours as needed for Cough. [facility] montelukast 10 mg tablet 2022-0 30 00:00: 00 Yes [id number] 10mg Take 1 tablet by mouth in the morning. [facility] estradioL (CLIMARA) 0.025 mg/24 hr patch 3-0 330 00:00: 00 Yes 1{patch } Apply 1 Patch to skin weekly. [facility] benzonatate (TESSALON PERLES) 100 mg capsule 2022-0 30 00:00: 00 Yes [id number] 100mg Take 1 capsule by mouth every 8 (eight) hours as needed for Cough. [facility] montelukast 10 mg tablet 2022-0 30 00:00: 00 Yes [id number] 10mg Take 1 tablet by mouth in the morning. [facility] estradioL (CLIMARA) 0.025 mg/24 hr patch 2022-0 330 00:00: 00 Yes 1{patch } Apply 1 Patch to skin weekly. [facility] estradioL (CLIMARA) 0.025 mg/24 hr patch 2022-0 30 00:00: 00 Yes 1{patch } Apply 1 Patch to skin weekly. [facility] estradioL (CLIMARA) 0.025 mg/24 hr patch 2022-0 30 00:00: 00 Yes 1{patch } Apply 1 Patch to skin weekly. [facility] estradioL (CLIMARA) 0.025 mg/24 hr patch 2022-0 30 00:00: 00 Yes 1{patch } Apply 1 Patch to skin weekly. [facility] estradioL (CLIMARA) 0.025 mg/24 hr patch 2022-0 30 00:00: 00 Yes 1{patch } Apply 1 Patch to skin weekly. [facility] estradioL (CLIMARA) 0.025 mg/24 hr patch 2022-0 30 00:00: 00 Yes 1{patch } Apply 1 Patch to skin weekly. [facility] estradioL (CLIMARA) 0.025 mg/24 hr patch 2022-0 30 00:00: 00 Yes 1{patch } Apply 1 Patch to skin weekly. [facility] estradioL (CLIMARA) 0.025 mg/24 hr patch 2022-0 330 00:00: 00 Yes 1{patch } Apply 1 Patch to skin weekly. [facility] estradioL (CLIMARA) 0.025 mg/24 hr patch 2022-0 330 00:00: 00 Yes 1{patch } Apply 1 Patch to skin weekly. [facility] estradioL (CLIMARA) 0.025 mg/24 hr patch 2023-0 330 00:00: 00 Yes 1{patch } Apply 1 Patch to skin weekly. [facility] estradioL (CLIMARA) 0.025 mg/24 hr patch 3-0 330 00:00: 00 Yes 1{patch } Apply 1 Patch to skin weekly. [facility] estradioL (CLIMARA) 0.025 mg/24 hr patch 3-0 3-30 00:00: 00 Yes 1{patch } Apply 1 Patch to skin weekly. [facility] estradioL (CLIMARA) 0.025 mg/24 hr patch 3-0 330 00:00: 00 Yes 1{patch } Apply 1 Patch to skin weekly. [facility] estradioL (CLIMARA) 0.025 mg/24 hr patch 2022-0 330 00:00: 00 01-09 00:00 :00 No 1{patch } Apply 1 Patch to skin weekly. [facility] estradioL (CLIMARA) 0.025 mg/24 hr patch 2022-0 330 00:00: 00 01-09 00:00 :00 No 1{patch } Apply 1 Patch to skin weekly. [facility] gabapentin 300 mg capsule 3-0 328 00:00: 00 Yes [id number] 300mg Take 1 capsule by mouth in the morning and 1 capsule at noon and 1 capsule in the evening. [facility] gabapentin 300 mg capsule 3-0 328 00:00: 00 Yes [id number] 300mg Take 1 capsule by mouth in the morning and 1 capsule at noon and 1 capsule in the evening. [facility] gabapentin 300 mg capsule 3-0 328 00:00: 00 Yes [id number] 300mg Take 1 capsule by mouth in the morning and 1 capsule at noon and 1 capsule in the evening. [facility] gabapentin 300 mg capsule 3-0 3-28 00:00: 00 Yes [id number] 300mg Take 1 capsule by mouth in the morning and 1 capsule at noon and 1 capsule in the evening. [facility] gabapentin 300 mg capsule 3-0 3-28 00:00: 00 Yes [id number] 300mg Take 1 capsule by mouth in the morning and 1 capsule at noon and 1 capsule in the evening. [facility] gabapentin 300 mg capsule 2023-0 3-28 00:00: 00 Yes [id number] 300mg Take 1 capsule by mouth in the morning and 1 capsule at noon and 1 capsule in the evening. [facility] gabapentin 300 mg capsule 2023-0 3-28 00:00: 00 Yes [id number] 300mg Take 1 capsule by mouth in the morning and 1 capsule at noon and 1 capsule in the evening. [facility] gabapentin 300 mg capsule 2023-0 3-28 00:00: 00 Yes [id number] 300mg Take 1 capsule by mouth in the morning and 1 capsule at noon and 1 capsule in the evening. [facility] gabapentin 300 mg capsule 2023-0 3-28 00:00: 00 Yes [id number] 300mg Take 1 capsule by mouth in the morning and 1 capsule at noon and 1 capsule in the evening. [facility] gabapentin 300 mg capsule 2023-0 3-28 00:00: 00 Yes [id number] 300mg Take 1 capsule by mouth in the morning and 1 capsule at noon and 1 capsule in the evening. [facility] gabapentin 300 mg capsule 2023-0 3-28 00:00: 00 Yes [id number] 300mg Take 1 capsule by mouth in the morning and 1 capsule at noon and 1 capsule in the evening. [facility] gabapentin 300 mg capsule 2023-0 3-28 00:00: 00 Yes [id number] 300mg Take 1 capsule by mouth in the morning and 1 capsule at noon and 1 capsule in the evening. [facility] gabapentin 300 mg capsule 2023-0 3-28 00:00: 00 Yes [id number] 300mg Take 1 capsule by mouth in the morning and 1 capsule at noon and 1 capsule in the evening. [facility] gabapentin 300 mg capsule 2023-0 3-28 00:00: 00 Yes [id number] 300mg Take 1 capsule by mouth in the morning and 1 capsule at noon and 1 capsule in the evening. [facility] gabapentin 300 mg capsule 2023-0 3-28 00:00: 00 Yes [id number] 300mg Take 1 capsule by mouth in the morning and 1 capsule at noon and 1 capsule in the evening. [facility] gabapentin 300 mg capsule 2023-0 3-28 00:00: 00 Yes [id number] 300mg Take 1 capsule by mouth in the morning and 1 capsule at noon and 1 capsule in the evening. [facility] gabapentin 300 mg capsule 2023-0 3-28 00:00: 00 Yes [id number] 300mg Take 1 capsule by mouth in the morning and 1 capsule at noon and 1 capsule in the evening. [facility] gabapentin 300 mg capsule 2023-0 3-28 00:00: 00 Yes [id number] 300mg Take 1 capsule by mouth in the morning and 1 capsule at noon and 1 capsule in the evening. [facility] gabapentin 300 mg capsule 2023-0 3-28 00:00: 00 Yes [id number] 300mg Take 1 capsule by mouth in the morning and 1 capsule at noon and 1 capsule in the evening. [facility] gabapentin 300 mg capsule 2023-0 3-28 00:00: 00 Yes [id number] 300mg Take 1 capsule by mouth in the morning and 1 capsule at noon and 1 capsule in the evening. [facility] gabapentin 300 mg capsule 2023-0 3-28 00:00: 00 Yes [id number] 300mg Take 1 capsule by mouth in the morning and 1 capsule at noon and 1 capsule in the evening. [facility] gabapentin 300 mg capsule 2023-0 3-28 00:00: 00 Yes [id number] 300mg Take 1 capsule by mouth in the morning and 1 capsule at noon and 1 capsule in the evening. [facility] gabapentin 300 mg capsule 2023-0 3-28 00:00: 00 Yes [id number] 300mg Take 1 capsule by mouth in the morning and 1 capsule at noon and 1 capsule in the evening. [facility] gabapentin 300 mg capsule 2023-0 3-28 00:00: 00 Yes [id number] 300mg Take 1 capsule by mouth in the morning and 1 capsule at noon and 1 capsule in the evening. [facility] gabapentin 300 mg capsule 2023-0 3-28 00:00: 00 Yes [id number] 300mg Take 1 capsule by mouth in the morning and 1 capsule at noon and 1 capsule in the evening. [facility] gabapentin 300 mg capsule 3-0 328 00:00: 00 Yes [id number] 300mg Take 1 capsule by mouth in the morning and 1 capsule at noon and 1 capsule in the evening. [facility] gabapentin 300 mg capsule 2022-0 28 00:00: 00 Yes [id number] 300mg Take 1 capsule by mouth in the morning and 1 capsule at noon and 1 capsule in the evening. [facility] gabapentin 300 mg capsule 2022-0 28 00:00: 00 03-23 00:00 :00 No [id number] 300mg Take 1 capsule by mouth in the morning and 1 capsule at noon and 1 capsule in the evening. [facility] gabapentin 300 mg capsule 2022-0 10-11 00:00: 00 03-23 00:00 :00 No [id number] 300mg Take 1 capsule by mouth in the morning and 1 capsule at noon and 1 capsule in the evening. [facility] hydrOXYchlo roQUINE (PLAQUENIL) 200 mg tablet 2022-0 24 00:00: 00 Yes [id number] 400mg Take 2 tablets by mouth in the morning. [facility] hydrOXYchlo roQUINE (PLAQUENIL) 200 mg tablet 2022-0 24 00:00: 00 Yes [id number] 4107 400mg Take 2 tablets by mouth in the morning. [facility] hydrOXYchlo roQUINE (PLAQUENIL) 200 mg tablet 2022-0 324 00:00: 00 Yes [id number] 400mg Take 2 tablets by mouth in the morning. [facility] hydrOXYchlo roQUINE (PLAQUENIL) 200 mg tablet 2022-0 3-24 00:00: 00 Yes [id number] 4107 400mg Take 2 tablets by mouth in the morning. [facility] hydrOXYchlo roQUINE (PLAQUENIL) 200 mg tablet 3-0 3-24 00:00: 00 Yes [id number] 4107 400mg Take 2 tablets by mouth in the morning. [facility] hydrOXYchlo roQUINE (PLAQUENIL) 200 mg tablet 2022-0 324 00:00: 00 Yes [id number] 4107 400mg Take 2 tablets by mouth in the morning. [facility] hydrOXYchlo roQUINE (PLAQUENIL) 200 mg tablet 2022-0 3-24 00:00: 00 Yes [id number] 4107 400mg Take 2 tablets by mouth in the morning. [facility] hydrOXYchlo roQUINE (PLAQUENIL) 200 mg tablet 2022-0 324 00:00: 00 Yes [id number] 4107 400mg Take 2 tablets by mouth in the morning. [facility] hydrOXYchlo roQUINE (PLAQUENIL) 200 mg tablet 2022-0 324 00:00: 00 Yes [id number] 4107 400mg Take 2 tablets by mouth in the morning. [facility] hydrOXYchlo roQUINE (PLAQUENIL) 200 mg tablet 2022-0 324 00:00: 00 Yes [id number] 4107 400mg Take 2 tablets by mouth in the morning. [facility] hydrOXYchlo roQUINE (PLAQUENIL) 200 mg tablet 2022-0 324 00:00: 00 Yes [id number] 4107 400mg Take 2 tablets by mouth in the morning. [facility] hydrOXYchlo roQUINE (PLAQUENIL) 200 mg tablet 2022-0 324 00:00: 00 Yes [id number] 4107 400mg Take 2 tablets by mouth in the morning. [facility] hydrOXYchlo roQUINE (PLAQUENIL) 200 mg tablet 2022-0 324 00:00: 00 Yes [id number] 4107 400mg Take 2 tablets by mouth in the morning. [facility] hydrOXYchlo roQUINE (PLAQUENIL) 200 mg tablet 2022-0 3-24 00:00: 00 Yes [id number] 4107 400mg Take 2 tablets by mouth in the morning. [facility] hydrOXYchlo roQUINE (PLAQUENIL) 200 mg tablet 2022-0 324 00:00: 00 20217 00:00 :00 No [id number] 4107 400mg Take 2 tablets by mouth in the morning. [facility] hydrOXYchlo roQUINE (PLAQUENIL) 200 mg tablet 10-07 00:00: 00 10-07 00:00 :00 No [id number] 200mg Take 1 tablet by mouth in the morning and 1 tablet in the evening. [facility] hydrOXYchlo roQUINE (PLAQUENIL) 200 mg tablet 10-07 00:00: 00 10-07 00:00 :00 No [id number] 200mg Take 1 tablet by mouth in the morning and 1 tablet in the evening. [facility] estradioL (MINIVELLE) 0.025 mg/24 hr patch 10-06 00:00: 00 Yes [id number] 1{patch } Apply 1 Patch to skin 2 (two) times per week. [facility] estradioL (MINIVELLE) 0.025 mg/24 hr patch 2022-0 10-06 00:00: 00 Yes [id number] 1{patch } Apply 1 Patch to skin 2 (two) times per week. [facility] estradioL (MINIVELLE) 0.025 mg/24 hr patch 2022-0 10-06 00:00: 00 Yes [id number] 1{patch } Apply 1 Patch to skin 2 (two) times per week. [facility] estradioL (MINIVELLE) 0.025 mg/24 hr patch 2022-0 10-06 00:00: 00 Yes [id number] 1{patch } Apply 1 Patch to skin 2 (two) times per week. [facility] estradioL (MINIVELLE) 0.025 mg/24 hr patch 2022-0 10-06 00:00: 00 Yes [id number] 1{patch } Apply 1 Patch to skin 2 (two) times per week. [facility] estradioL (MINIVELLE) 0.025 mg/24 hr patch 2022-0 10-06 00:00: 00 Yes [id number] 1{patch } Apply 1 Patch to skin 2 (two) times per week. [facility] estradioL (MINIVELLE) 0.025 mg/24 hr patch 2022-0 323 00:00: 00 Yes [id number] 1{patch } Apply 1 Patch to skin 2 (two) times per week. [facility] estradioL (MINIVELLE) 0.025 mg/24 hr patch 10-06 00:00: 00 Yes [id number] 1{patch } Apply 1 Patch to skin 2 (two) times per week. [facility] estradioL (MINIVELLE) 0.025 mg/24 hr patch 10-06 00:00: 00 10-13 00:00 :00 No [id number] 1{patch } Apply 1 Patch to skin 2 (two) times per week. [facility] estradioL (MINIVELLE) 0.025 mg/24 hr patch 10-06 00:00: 00 10-13 00:00 :00 No [id number] 1{patch } Apply 1 Patch to skin 2 (two) times per week. [facility] Cholecalcif mary, Vitamin D3, (VITAMIN D3) 50 mcg (2,000 unit) tablet 09-28 00:00: 00 Yes [facility] Cholecalcif mary, Vitamin D3, (VITAMIN D3) 50 mcg (2,000 unit) tablet 09-28 00:00: 00 Yes [facility] Cholecalcif mary, Vitamin D3, (VITAMIN D3) 50 mcg (2,000 unit) tablet 09-28 00:00: 00 Yes [facility] Cholecalcif mary, Vitamin D3, (VITAMIN D3) 50 mcg (2,000 unit) tablet 09-28 00:00: 00 Yes [facility] Cholecalcif mary, Vitamin D3, (VITAMIN D3) 50 mcg (2,000 unit) tablet 09-28 00:00: 00 Yes [facility] Cholecalcif mary, Vitamin D3, (VITAMIN D3) 50 mcg (2,000 unit) tablet 09-28 00:00: 00 Yes [facility] Cholecalcif mary, Vitamin D3, (VITAMIN D3) 50 mcg (2,000 unit) tablet 09-28 00:00: 00 Yes [facility] Cholecalcif mary, Vitamin D3, (VITAMIN D3) 50 mcg (2,000 unit) tablet 09-28 00:00: 00 Yes [facility] Cholecalcif mary, Vitamin D3, (VITAMIN D3) 50 mcg (2,000 unit) tablet 09-28 00:00: 00 Yes [facility] Cholecalcif mary, Vitamin D3, (VITAMIN D3) 50 mcg (2,000 unit) tablet 09-28 00:00: 00 Yes [facility] Cholecalcif mary, Vitamin D3, (VITAMIN D3) 50 mcg (2,000 unit) tablet 09-28 00:00: 00 Yes [facility] Cholecalcif mary, Vitamin D3, (VITAMIN D3) 50 mcg (2,000 unit) tablet 09-28 00:00: 00 [facility], Vitamin D3, (VITAMIN D3) 50 mcg (2,000 unit) tablet 09-28 00:00: 00 [facility] Cholecalc[facility], Vitamin D3, (VITAMIN D3) 50 mcg (2,000 unit) tablet 09-28 00:00: 00 [facility] Cholecalc[facility], Vitamin D3, (VITAMIN D3) 50 mcg (2,000 unit) tablet 09-28 00:00: 00 [facility] Cholecalcif [facility], Vitamin D3, (VITAMIN D3) 50 mcg (2,000 unit) tablet 09-28 00:00: 00 [facility] Cholecalc[facility], Vitamin D3, (VITAMIN D3) 50 mcg (2,000 unit) tablet 09-28 00:00: 00 Yes [facility] Cholecalcif mary, Vitamin D3, (VITAMIN D3) 50 mcg (2,000 unit) tablet 09-28 00:00: 00 [facility] Cholecalc[facility], Vitamin D3, (VITAMIN D3) 50 mcg (2,000 unit) tablet 09-28 00:00: 00 [facility] Ch[facility]calc[facility], Vitamin D3, (VITAMIN D3) 50 mcg (2,000 unit) tablet 09-28 00:00: 00 Yes [facility] Cholecalcif mary, Vitamin D3, (VITAMIN D3) 50 mcg (2,000 unit) tablet 09-28 00:00: 00 Yes [facility] Cholecalcif mary, Vitamin D3, (VITAMIN D3) 50 mcg (2,000 unit) tablet 09-28 00:00: 00 Yes [facility] Cholecalcif mary, Vitamin D3, (VITAMIN D3) 50 mcg (2,000 unit) tablet 09-28 00:00: 00 Yes [facility] Cholecalcif mary, Vitamin D3, (VITAMIN D3) 50 mcg (2,000 unit) tablet 09-28 00:00: 00 Yes [facility] Cholecalcif mary, Vitamin D3, (VITAMIN D3) 50 mcg (2,000 unit) tablet 09-28 00:00: 00 Yes 2000U Take 1 tablet by mouth in the morning. [facility] Cholecalcif mary, Vitamin D3, (VITAMIN D3) 50 mcg (2,000 unit) tablet 09-28 00:00: 00 Yes 2000U Take 1 tablet by mouth in the morning. [facility] Cholecalcif mary, Vitamin D3, (VITAMIN D3) 50 mcg (2,000 unit) tablet 09-28 00:00: 00 Yes 2000U Take 1 tablet by mouth in the morning. [facility] Cholecalcif mary, Vitamin D3, (VITAMIN D3) 50 mcg (2,000 unit) tablet 09-28 00:00: 00 Yes 2000U Take 1 tablet by mouth in the morning. [facility] Cholecalcif mary, Vitamin D3, (VITAMIN D3) 50 mcg (2,000 unit) tablet 09-28 00:00: 00 Yes 2000U Take 1 tablet by mouth in the morning. [facility] Cholecalcif mary, Vitamin D3, (VITAMIN D3) 50 mcg (2,000 unit) tablet 09-28 00:00: 00 Yes 2000U Take 1 tablet by mouth in the morning. [facility] Cholecalcif mary, Vitamin D3, (VITAMIN D3) 50 mcg (2,000 unit) tablet 09-28 00:00: 00 Yes 2000U Take 1 tablet by mouth in the morning. [facility] Cholecalcif mary, Vitamin D3, (VITAMIN D3) 50 mcg (2,000 unit) tablet 09-28 00:00: 00 Yes 2000U Take 1 tablet by mouth in the morning. [facility] Cholecalcif mary, Vitamin D3, (VITAMIN D3) 50 mcg (2,000 unit) tablet 09-28 00:00: 00 Yes 2000U Take 1 tablet by mouth in the morning. [facility] Cholecalcif mary, Vitamin D3, (VITAMIN D3) 50 mcg (2,000 unit) tablet 09-28 00:00: 00 Yes 2000U Take 1 tablet by mouth in the morning. [facility] Cholecalcif mary, Vitamin D3, (VITAMIN D3) 50 mcg (2,000 unit) tablet 09-28 00:00: 00 Yes 2000U Take 1 tablet by mouth in the morning. [facility] Cholecalcif mary, Vitamin D3, (VITAMIN D3) 50 mcg (2,000 unit) tablet 09-28 00:00: 00 Yes 2000U Take 1 tablet by mouth in the morning. [facility] Cholecalcif mary, Vitamin D3, (VITAMIN D3) 50 mcg (2,000 unit) tablet 09-28 00:00: 00 Yes 2000U Take 1 tablet by mouth in the morning. [facility] Cholecalcif mary, Vitamin D3, (VITAMIN D3) 50 mcg (2,000 unit) tablet 0 09-28 00:00: 00 Yes 2000U Take 1 tablet by mouth in the morning. [facility] Cholecalcif mary, Vitamin D3, (VITAMIN D3) 50 mcg (2,000 unit) tablet 09-28 00:00: 00 Yes 2000U Take 1 tablet by mouth in the morning. [facility] Cholecalcif mary, Vitamin D3, (VITAMIN D3) 50 mcg (2,000 unit) tablet 2022-0 15 00:00: 00 Yes 2000U Take 1 tablet by mouth in the morning. [facility] Cholecalcif mary, Vitamin D3, (VITAMIN D3) 50 mcg (2,000 unit) tablet 2022-0 15 00:00: 00 Yes 2000U Take 1 tablet by mouth in the morning. [facility] Cholecalcif mary, Vitamin D3, (VITAMIN D3) 50 mcg (2,000 unit) tablet 0 15 00:00: 00 Yes 2000U Take 1 tablet by mouth in the morning. [facility] empaglifloz in-metformi n (SYNJARDY) 5-1,000 mg Tab 0 09-15 11:49: 18 09-15 00:00 :00 No Take by mouth 2 (two) times daily. [facility] empaglifloz in-metformi n (SYNJARDY) 5-1,000 mg Tab 2022-0 02 00:00: 00 Yes [id number] 1{tbl} Take 1 tablet by mouth in the morning and 1 tablet in the evening. [facility] empaglifloz in-metformi n (SYNJARDY) 5-1,000 mg Tab 2022-0 09-15 00:00: 00 Yes [id number] 1{tbl} Take 1 tablet by mouth in the morning and 1 tablet in the evening. [facility] empaglifloz in-metformi n (SYNJARDY) 5-1,000 mg Tab 3-0 02 00:00: 00 Yes [id number] 1{tbl} Take 1 tablet by mouth in the morning and 1 tablet in the evening. [facility] empaglifloz in-metformi n (SYNJARDY) 5-1,000 mg Tab 2023-0 302 00:00: 00 Yes [id number] 1{tbl} Take 1 tablet by mouth in the morning and 1 tablet in the evening. [facility] empaglifloz in-metformi n (SYNJARDY) 5-1,000 mg Tab 2023-0 3-02 00:00: 00 Yes [id number] 1{tbl} Take 1 tablet by mouth in the morning and 1 tablet in the evening. [facility] empaglifloz in-metformi n (SYNJARDY) 5-1,000 mg Tab 2023-0 3-02 00:00: 00 Yes [id number] 1{tbl} Take 1 tablet by mouth in the morning and 1 tablet in the evening. [facility] empaglifloz in-metformi n (SYNJARDY) 5-1,000 mg Tab 2023-0 3-02 00:00: 00 Yes [id number] 1{tbl} Take 1 tablet by mouth in the morning and 1 tablet in the evening. [facility] empaglifloz in-metformi n (SYNJARDY) 5-1,000 mg Tab 2023-0 3-02 00:00: 00 Yes [id number] 1{tbl} Take 1 tablet by mouth in the morning and 1 tablet in the evening. [facility] empaglifloz in-metformi n (SYNJARDY) 5-1,000 mg Tab 2023-0 3-02 00:00: 00 Yes [id number] 1{tbl} Take 1 tablet by mouth in the morning and 1 tablet in the evening. [facility] empaglifloz in-metformi n (SYNJARDY) 5-1,000 mg Tab 2023-0 3-02 00:00: 00 Yes [id number] 1{tbl} Take 1 tablet by mouth in the morning and 1 tablet in the evening. [facility] empaglifloz in-metformi n (SYNJARDY) 5-1,000 mg Tab 2023-0 3-02 00:00: 00 Yes [id number] 1{tbl} Take 1 tablet by mouth in the morning and 1 tablet in the evening. [facility] empaglifloz in-metformi n (SYNJARDY) 5-1,000 mg Tab 2023-0 3-02 00:00: 00 Yes [id number] 1{tbl} Take 1 tablet by mouth in the morning and 1 tablet in the evening. [facility] empaglifloz in-metformi n (SYNJARDY) 5-1,000 mg Tab 3-0 302 00:00: 00 Yes [id number] 1{tbl} Take 1 tablet by mouth in the morning and 1 tablet in the evening. [facility] empaglifloz in-metformi n (SYNJARDY) 5-1,000 mg Tab 3-0 3- 00:00: 00 Yes [id number] 1{tbl} Take 1 tablet by mouth in the morning and 1 tablet in the evening. [facility] pantoprazol e 40 mg EC tablet 2022-0 09-15 00:00: 00 Yes 40mg Take 1 tablet by mouth every morning. [facility] empaglifloz in-metformi n (SYNJARDY) 5-1,000 mg Tab 2022-0 09-15 00:00: 00 Yes [id number] 1{tbl} Take 1 tablet by mouth in the morning and 1 tablet in the evening. [facility] pantoprazol e 40 mg EC tablet 2022-0 09-15 00:00: 00 Yes 40mg Take 1 tablet by mouth every morning. [facility] empaglifloz in-metformi n (SYNJARDY) 5-1,000 mg Tab 3-0 09-15 00:00: 00 Yes [id number] 1{tbl} Take 1 tablet by mouth in the morning and 1 tablet in the evening. [facility] pantoprazol e 40 mg EC tablet 3-0 302 00:00: 00 Yes 40mg Take 1 tablet by mouth every morning. [facility] empaglifloz in-metformi n (SYNJARDY) 5-1,000 mg Tab 3-0 302 00:00: 00 Yes [id number] 1{tbl} Take 1 tablet by mouth in the morning and 1 tablet in the evening. [facility] pantoprazol e 40 mg EC tablet 3-0 3-02 00:00: 00 Yes 40mg Take 1 tablet by mouth every morning. [facility] empaglifloz in-metformi n (SYNJARDY) 5-1,000 mg Tab 3-0 3-02 00:00: 00 Yes [id number] 1{tbl} Take 1 tablet by mouth in the morning and 1 tablet in the evening. [facility] pantoprazol e 40 mg EC tablet 2022-0 3-02 00:00: 00 Yes 40mg Take 1 tablet by mouth every morning. [facility] empaglifloz in-metformi n (SYNJARDY) 5-1,000 mg Tab 3-0 3-02 00:00: 00 Yes [id number] 1{tbl} Take 1 tablet by mouth in the morning and 1 tablet in the evening. [facility] pantoprazol e 40 mg EC tablet 2022-0 -02 00:00: 00 Yes 40mg Take 1 tablet by mouth every morning. [facility] empaglifloz in-metformi n (SYNJARDY) 5-1,000 mg Tab 3-0 -02 00:00: 00 Yes [id number] 1{tbl} Take 1 tablet by mouth in the morning and 1 tablet in the evening. [facility] pantoprazol e 40 mg EC tablet 2022-0 3-02 00:00: 00 Yes 40mg Take 1 tablet by mouth every morning. [facility] empaglifloz in-metformi n (SYNJARDY) 5-1,000 mg Tab 3-0 3-02 00:00: 00 Yes [id number] 1{tbl} Take 1 tablet by mouth in the morning and 1 tablet in the evening. [facility] pantoprazol e 40 mg EC tablet 3-0 3-02 00:00: 00 Yes 40mg Take 1 tablet by mouth every morning. [facility] empaglifloz in-metformi n (SYNJARDY) 5-1,000 mg Tab 2023-0 3-02 00:00: 00 Yes [id number] 1{tbl} Take 1 tablet by mouth in the morning and 1 tablet in the evening. [facility] pantoprazol e 40 mg EC tablet 3-0 302 00:00: 00 Yes 40mg Take 1 tablet by mouth every morning. [facility] empaglifloz in-metformi n (SYNJARDY) 5-1,000 mg Tab 2023-0 3-02 00:00: 00 Yes [id number] 1{tbl} Take 1 tablet by mouth in the morning and 1 tablet in the evening. [facility] pantoprazol e 40 mg EC tablet 2022-0 3-02 00:00: 00 Yes 40mg Take 1 tablet by mouth every morning. [facility] empaglifloz in-metformi n (SYNJARDY) 5-1,000 mg Tab 3-0 09-15 00:00: 00 Yes [id number] 1{tbl} Take 1 tablet by mouth in the morning and 1 tablet in the evening. [facility] pantoprazol e 40 mg EC tablet 2022-0 09-15 00:00: 00 Yes 40mg Take 1 tablet by mouth every morning. [facility] empaglifloz in-metformi n (SYNJARDY) 5-1,000 mg Tab 3-0 - 00:00: 00 Yes [id number] 1{tbl} Take 1 tablet by mouth in the morning and 1 tablet in the evening. [facility] pantoprazol e 40 mg EC tablet 3-0 02 00:00: 00 Yes 40mg Take 1 tablet by mouth every morning. [facility] empaglifloz in-metformi n (SYNJARDY) 5-1,000 mg Tab 2023-0 3-02 00:00: 00 Yes [id number] 1{tbl} Take 1 tablet by mouth in the morning and 1 tablet in the evening. [facility] pantoprazol e 40 mg EC tablet 3-0 3-02 00:00: 00 Yes 40mg Take 1 tablet by mouth every morning. [facility] empaglifloz in-metformi n (SYNJARDY) 5-1,000 mg Tab 2023-0 3-02 00:00: 00 Yes [id number] 1{tbl} Take 1 tablet by mouth in the morning and 1 tablet in the evening. [facility] pantoprazol e 40 mg EC tablet 2022-0 02 00:00: 00 Yes 40mg Take 1 tablet by mouth every morning. [facility] empaglifloz in-metformi n (SYNJARDY) 5-1,000 mg Tab 2022-0 - 00:00: 00 Yes [id number] 1{tbl} Take 1 tablet by mouth in the morning and 1 tablet in the evening. [facility] pantoprazol e 40 mg EC tablet 2022-0 09-15 00:00: 00 Yes 40mg Take 1 tablet by mouth every morning. [facility] empaglifloz in-metformi n (SYNJARDY) 5-1,000 mg Tab 2022-0 - 00:00: 00 Yes [id number] 1{tbl} Take 1 tablet by mouth in the morning and 1 tablet in the evening. [facility] pantoprazol e 40 mg EC tablet 2022-0 09-15 00:00: 00 Yes 40mg Take 1 tablet by mouth every morning. [facility] empaglifloz in-metformi n (SYNJARDY) 5-1,000 mg Tab 2022-0 09-15 00:00: 00 Yes [id number] 1{tbl} Take 1 tablet by mouth in the morning and 1 tablet in the evening. [facility] pantoprazol e 40 mg EC tablet 2022-0 09-15 00:00: 00 Yes 40mg Take 1 tablet by mouth every morning. [facility] empaglifloz in-metformi n (SYNJARDY) 5-1,000 mg Tab 3-0 - 00:00: 00 Yes [id number] 1{tbl} Take 1 tablet by mouth in the morning and 1 tablet in the evening. [facility] pantoprazol e 40 mg EC tablet 2022-0 3-02 00:00: 00 Yes 40mg Take 1 tablet by mouth every morning. [facility] empaglifloz in-metformi n (SYNJARDY) 5-1,000 mg Tab 2023-0 3-02 00:00: 00 Yes [id number] 1{tbl} Take 1 tablet by mouth in the morning and 1 tablet in the evening. [facility] pantoprazol e 40 mg EC tablet 2023-0 3-02 00:00: 00 Yes 40mg Take 1 tablet by mouth every morning. [facility] empaglifloz in-metformi n (SYNJARDY) 5-1,000 mg Tab 2023-0 3-02 00:00: 00 Yes [id number] 1{tbl} Take 1 tablet by mouth in the morning and 1 tablet in the evening. [facility] pantoprazol e 40 mg EC tablet 3-0 3-02 00:00: 00 Yes 40mg Take 1 tablet by mouth every morning. [facility] empaglifloz in-metformi n (SYNJARDY) 5-1,000 mg Tab 2023-0 3-02 00:00: 00 Yes [id number] 1{tbl} Take 1 tablet by mouth in the morning and 1 tablet in the evening. [facility] empaglifloz in-metformi n (SYNJARDY) 5-1,000 mg Tab 2023-0 3-02 00:00: 00 Yes [id number] 1{tbl} Take 1 tablet by mouth in the morning and 1 tablet in the evening. [facility] empaglifloz in-metformi n (SYNJARDY) 5-1,000 mg Tab 2023-0 3-02 00:00: 00 Yes [id number] 1{tbl} Take 1 tablet by mouth in the morning and 1 tablet in the evening. [facility] empaglifloz in-metformi n (SYNJARDY) 5-1,000 mg Tab 2023-0 3-02 00:00: 00 Yes [id number] 1{tbl} Take 1 tablet by mouth in the morning and 1 tablet in the evening. [facility] empaglifloz in-metformi n (SYNJARDY) 5-1,000 mg Tab 2023-0 3-02 00:00: 00 Yes [id number] 1{tbl} Take 1 tablet by mouth in the morning and 1 tablet in the evening. [facility] empaglifloz in-metformi n (SYNJARDY) 5-1,000 mg Tab 2023-0 3-02 00:00: 00 Yes [id number] 1{tbl} Take 1 tablet by mouth in the morning and 1 tablet in the evening. [facility] empaglifloz in-metformi n (SYNJARDY) 5-1,000 mg Tab 2023-0 3-02 00:00: 00 Yes [id number] 1{tbl} Take 1 tablet by mouth in the morning and 1 tablet in the evening. [facility] empaglifloz in-metformi n (SYNJARDY) 5-1,000 mg Tab 2023-0 3-02 00:00: 00 Yes [id number] 1{tbl} Take 1 tablet by mouth in the morning and 1 tablet in the evening. [facility] empaglifloz in-metformi n (SYNJARDY) 5-1,000 mg Tab 2023-0 3-02 00:00: 00 Yes [id number] 1{tbl} Take 1 tablet by mouth in the morning and 1 tablet in the evening. [facility] empaglifloz in-metformi n (SYNJARDY) 5-1,000 mg Tab 2023-0 3-02 00:00: 00 Yes [id number] 1{tbl} Take 1 tablet by mouth in the morning and 1 tablet in the evening. [facility] empaglifloz in-metformi n (SYNJARDY) 5-1,000 mg Tab 2023-0 3-02 00:00: 00 Yes [id number] 1{tbl} Take 1 tablet by mouth in the morning and 1 tablet in the evening. [facility] empaglifloz in-metformi n (SYNJARDY) 5-1,000 mg Tab 2023-0 3-02 00:00: 00 Yes [id number] 1{tbl} Take 1 tablet by mouth in the morning and 1 tablet in the evening. [facility] empaglifloz in-metformi n (SYNJARDY) 5-1,000 mg Tab 2023-0 3-02 00:00: 00 Yes [id number] 1{tbl} Take 1 tablet by mouth in the morning and 1 tablet in the evening. [facility] empaglifloz in-metformi n (SYNJARDY) 5-1,000 mg Tab 2023-0 3-02 00:00: 00 Yes [id number] 1{tbl} Take 1 tablet by mouth in the morning and 1 tablet in the evening. [facility] empaglifloz in-metformi n (SYNJARDY) 5-1,000 mg Tab 2023-0 3-02 00:00: 00 Yes [id number] 1{tbl} Take 1 tablet by mouth in the morning and 1 tablet in the evening. [facility] empaglifloz in-metformi n (SYNJARDY) 5-1,000 mg Tab 2023-0 3-02 00:00: 00 Yes [id number] 1{tbl} Take 1 tablet by mouth in the morning and 1 tablet in the evening. [facility] empaglifloz in-metformi n (SYNJARDY) 5-1,000 mg Tab 2023-0 3-02 00:00: 00 Yes [id number] 1{tbl} Take 1 tablet by mouth in the morning and 1 tablet in the evening. [facility] empaglifloz in-metformi n (SYNJARDY) 5-1,000 mg Tab 2023-0 3-02 00:00: 00 Yes [id number] 1{tbl} Take 1 tablet by mouth in the morning and 1 tablet in the evening. [facility] empaglifloz in-metformi n (SYNJARDY) 5-1,000 mg Tab 2023-0 3-02 00:00: 00 Yes [id number] 1{tbl} Take 1 tablet by mouth in the morning and 1 tablet in the evening. [facility] empaglifloz in-metformi n (SYNJARDY) 5-1,000 mg Tab 2023-0 3-02 00:00: 00 Yes [id number] 1{tbl} Take 1 tablet by mouth in the morning and 1 tablet in the evening. [facility] empaglifloz in-metformi n (SYNJARDY) 5-1,000 mg Tab 2023-0 3-02 00:00: 00 Yes [id number] 1{tbl} Take 1 tablet by mouth in the morning and 1 tablet in the evening. [facility] empaglifloz in-metformi n (SYNJARDY) 5-1,000 mg Tab 2023-0 3-02 00:00: 00 Yes [id number] 1{tbl} Take 1 tablet by mouth in the morning and 1 tablet in the evening. [facility] empaglifloz in-metformi n (SYNJARDY) 5-1,000 mg Tab 2023-0 3-02 00:00: 00 Yes [id number] 1{tbl} Take 1 tablet by mouth in the morning and 1 tablet in the evening. [facility] empaglifloz in-metformi n (SYNJARDY) 5-1,000 mg Tab 2023-0 3-02 00:00: 00 Yes [id number] 1{tbl} Take 1 tablet by mouth in the morning and 1 tablet in the evening. [facility] empaglifloz in-metformi n (SYNJARDY) 5-1,000 mg Tab 2023-0 3-02 00:00: 00 Yes [id number] 1{tbl} Take 1 tablet by mouth in the morning and 1 tablet in the evening. [facility] empaglifloz in-metformi n (SYNJARDY) 5-1,000 mg Tab 2023-0 3-02 00:00: 00 Yes [id number] 1{tbl} Take 1 tablet by mouth in the morning and 1 tablet in the evening. [facility] empaglifloz in-metformi n (SYNJARDY) 5-1,000 mg Tab 2023-0 3-02 00:00: 00 Yes [id number] 1{tbl} Take 1 tablet by mouth in the morning and 1 tablet in the evening. [facility] empaglifloz in-metformi n (SYNJARDY) 5-1,000 mg Tab 2023-0 3-02 00:00: 00 Yes [id number] 1{tbl} Take 1 tablet by mouth in the morning and 1 tablet in the evening. [facility] empaglifloz in-metformi n (SYNJARDY) 5-1,000 mg Tab 2023-0 3-02 00:00: 00 Yes [id number] 1{tbl} Take 1 tablet by mouth in the morning and 1 tablet in the evening. [facility] empaglifloz in-metformi n (SYNJARDY) 5-1,000 mg Tab 2023-0 3-02 00:00: 00 Yes [id number] 1{tbl} Take 1 tablet by mouth in the morning and 1 tablet in the evening. [facility] empaglifloz in-metformi n (SYNJARDY) 5-1,000 mg Tab 2023-0 3-02 00:00: 00 Yes [id number] 1{tbl} Take 1 tablet by mouth in the morning and 1 tablet in the evening. [facility] empaglifloz in-metformi n (SYNJARDY) 5-1,000 mg Tab 2023-0 3-02 00:00: 00 Yes [id number] 1{tbl} Take 1 tablet by mouth in the morning and 1 tablet in the evening. [facility] empaglifloz in-metformi n (SYNJARDY) 5-1,000 mg Tab 2023-0 3-02 00:00: 00 Yes [id number] 1{tbl} Take 1 tablet by mouth in the morning and 1 tablet in the evening. [facility] empaglifloz in-metformi n (SYNJARDY) 5-1,000 mg Tab 2023-0 3-02 00:00: 00 Yes [id number] 1{tbl} Take 1 tablet by mouth in the morning and 1 tablet in the evening. [facility] empaglifloz in-metformi n (SYNJARDY) 5-1,000 mg Tab 2023-0 3-02 00:00: 00 Yes [id number] 1{tbl} Take 1 tablet by mouth in the morning and 1 tablet in the evening. [facility] empaglifloz in-metformi n (SYNJARDY) 5-1,000 mg Tab 2023-0 3-02 00:00: 00 Yes [id number] 1{tbl} Take 1 tablet by mouth in the morning and 1 tablet in the evening. [facility] empaglifloz in-metformi n (SYNJARDY) 5-1,000 mg Tab 2023-0 3-02 00:00: 00 Yes [id number] 1{tbl} Take 1 tablet by mouth in the morning and 1 tablet in the evening. [facility] empaglifloz in-metformi n (SYNJARDY) 5-1,000 mg Tab 2023-0 3-02 00:00: 00 Yes [id number] 1{tbl} Take 1 tablet by mouth in the morning and 1 tablet in the evening. [facility] empaglifloz in-metformi n (SYNJARDY) 5-1,000 mg Tab 2023-0 3-02 00:00: 00 Yes [id number] 1{tbl} Take 1 tablet by mouth in the morning and 1 tablet in the evening. [facility] empaglifloz in-metformi n (SYNJARDY) 5-1,000 mg Tab 2023-0 3-02 00:00: 00 Yes [id number] 1{tbl} Take 1 tablet by mouth in the morning and 1 tablet in the evening. [facility] empaglifloz in-metformi n (SYNJARDY) 5-1,000 mg Tab 2023-0 3-02 00:00: 00 Yes [id number] 1{tbl} Take 1 tablet by mouth in the morning and 1 tablet in the evening. [facility] empaglifloz in-metformi n (SYNJARDY) 5-1,000 mg Tab 2023-0 3-02 00:00: 00 Yes [id number] 1{tbl} Take 1 tablet by mouth in the morning and 1 tablet in the evening. [facility] pantoprazol e 40 mg EC tablet 09-15 00:00: 00 01-09 00:00 :00 No 40mg Take 1 tablet by mouth every morning. [facility] pantoprazol e 40 mg EC tablet 09-15 00:00: 00 01-09 00:00 :00 No 40mg Take 1 tablet by mouth every morning. [facility] simvastatin 80 mg tablet 09-13 07:41: 17 09-13 00:00 :00 No 80mg Take 80 mg by mouth at bedtime. [facility] simvastatin 80 mg tablet 09-13 00:00: 00 Yes [id number] 80mg Take 1 tablet by mouth at bedtime. [facility] levothyroxi ne 50 mcg tablet 09-13 00:00: 00 Yes [id number] 50ug Take 1 tablet by mouth every morning. [facility] simvastatin 80 mg tablet 09-13 00:00: 00 Yes [id number] 80mg Take 1 tablet by mouth at bedtime. [facility] levothyroxi ne 50 mcg tablet 09-13 00:00: 00 Yes [id number] 50ug Take 1 tablet by mouth every morning. [facility] simvastatin 80 mg tablet 09-13 00:00: 00 Yes [id number] 80mg Take 1 tablet by mouth at bedtime. [facility] levothyroxi ne 50 mcg tablet 0 09-13 00:00: 00 Yes [id number] 50ug Take 1 tablet by mouth every morning. [facility] simvastatin 80 mg tablet 0 09-13 00:00: 00 Yes [id number] 80mg Take 1 tablet by mouth at bedtime. [facility] levothyroxi ne 50 mcg tablet 09-13 00:00: 00 Yes [id number] 50ug Take 1 tablet by mouth every morning. [facility] simvastatin 80 mg tablet 0 09-13 00:00: 00 Yes [id number] 80mg Take 1 tablet by mouth at bedtime. [facility] levothyroxi ne 50 mcg tablet 2022-0 228 00:00: 00 Yes [id number] 50ug Take 1 tablet by mouth every morning. [facility] simvastatin 80 mg tablet 3-0 -28 00:00: 00 Yes [id number] 80mg Take 1 tablet by mouth at bedtime. [facility] levothyroxi ne 50 mcg tablet 2022-0 -28 00:00: 00 Yes [id number] 50ug Take 1 tablet by mouth every morning. [facility] simvastatin 80 mg tablet 2022-0 -28 00:00: 00 Yes [id number] 80mg Take 1 tablet by mouth at bedtime. [facility] levothyroxi ne 50 mcg tablet 2022-0 28 00:00: 00 Yes [id number] 50ug Take 1 tablet by mouth every morning. [facility] simvastatin 80 mg tablet 2022-0 28 00:00: 00 Yes [id number] 80mg Take 1 tablet by mouth at bedtime. [facility] levothyroxi ne 50 mcg tablet 2022-0 28 00:00: 00 Yes [id number] 50ug Take 1 tablet by mouth every morning. [facility] simvastatin 80 mg tablet 2022-0 28 00:00: 00 Yes [id number] 80mg Take 1 tablet by mouth at bedtime. [facility] levothyroxi ne 50 mcg tablet 2022-0 28 00:00: 00 Yes [id number] 50ug Take 1 tablet by mouth every morning. [facility] simvastatin 80 mg tablet 3-0 28 00:00: 00 Yes [id number] 80mg Take 1 tablet by mouth at bedtime. [facility] levothyroxi ne 50 mcg tablet 2022-0 -28 00:00: 00 Yes [id number] 50ug Take 1 tablet by mouth every morning. [facility] simvastatin 80 mg tablet 3-0 2-28 00:00: 00 Yes [id number] 80mg Take 1 tablet by mouth at bedtime. [facility] levothyroxi ne 50 mcg tablet 0 28 00:00: 00 Yes [id number] 50ug Take 1 tablet by mouth every morning. [facility] simvastatin 80 mg tablet 0 09-13 00:00: 00 Yes [id number] 80mg Take 1 tablet by mouth at bedtime. [facility] levothyroxi ne 50 mcg tablet 2022-0 28 00:00: 00 Yes [id number] 50ug Take 1 tablet by mouth every morning. [facility] simvastatin 80 mg tablet 2022-0 28 00:00: 00 Yes [id number] 80mg Take 1 tablet by mouth at bedtime. [facility] levothyroxi ne 50 mcg tablet 0 09-13 00:00: 00 Yes [id number] 50ug Take 1 tablet by mouth every morning. [facility] simvastatin 80 mg tablet 2022-0 09-13 00:00: 00 Yes [id number] 80mg Take 1 tablet by mouth at bedtime. [facility] levothyroxi ne 50 mcg tablet 0 09-13 00:00: 00 Yes [id number] 50ug Take 1 tablet by mouth every morning. [facility] simvastatin 80 mg tablet 0 09-13 00:00: 00 Yes [id number] 80mg Take 1 tablet by mouth at bedtime. [facility] levothyroxi ne 50 mcg tablet 2022-0 09-13 00:00: 00 Yes [id number] 50ug Take 1 tablet by mouth every morning. [facility] simvastatin 80 mg tablet 2022-0 28 00:00: 00 Yes [id number] 80mg Take 1 tablet by mouth at bedtime. [facility] levothyroxi ne 50 mcg tablet 2022-0 28 00:00: 00 Yes [id number] 50ug Take 1 tablet by mouth every morning. [facility] simvastatin 80 mg tablet 2022-0 28 00:00: 00 Yes [id number] 80mg Take 1 tablet by mouth at bedtime. [facility] levothyroxi ne 50 mcg tablet 0 09-13 00:00: 00 Yes [id number] 50ug Take 1 tablet by mouth every morning. [facility] simvastatin 80 mg tablet 0 09-13 00:00: 00 Yes [id number] 80mg Take 1 tablet by mouth at bedtime. [facility] levothyroxi ne 50 mcg tablet 0 09-13 00:00: 00 Yes [id number] 50ug Take 1 tablet by mouth every morning. [facility] simvastatin 80 mg tablet 0 09-13 00:00: 00 Yes [id number] 80mg Take 1 tablet by mouth at bedtime. [facility] levothyroxi ne 50 mcg tablet 0 09-13 00:00: 00 Yes [id number] 50ug Take 1 tablet by mouth every morning. [facility] simvastatin 80 mg tablet 0 09-13 00:00: 00 Yes [id number] 80mg Take 1 tablet by mouth at bedtime. [facility] levothyroxi ne 50 mcg tablet 0 09-13 00:00: 00 Yes [id number] 50ug Take 1 tablet by mouth every morning. [facility] simvastatin 80 mg tablet 0 09-13 00:00: 00 Yes [id number] 80mg Take 1 tablet by mouth at bedtime. [facility] levothyroxi ne 50 mcg tablet 0 09-13 00:00: 00 Yes [id number] 50ug Take 1 tablet by mouth every morning. [facility] simvastatin 80 mg tablet 0 09-13 00:00: 00 Yes [id number] 80mg Take 1 tablet by mouth at bedtime. [facility] levothyroxi ne 50 mcg tablet 0 09-13 00:00: 00 Yes [id number] 50ug Take 1 tablet by mouth every morning. [facility] simvastatin 80 mg tablet 0 28 00:00: 00 Yes [id number] 80mg Take 1 tablet by mouth at bedtime. [facility] levothyroxi ne 50 mcg tablet 0 09-13 00:00: 00 Yes [id number] 50ug Take 1 tablet by mouth every morning. [facility] simvastatin 80 mg tablet 2022-0 28 00:00: 00 Yes [id number] 80mg Take 1 tablet by mouth at bedtime. [facility] levothyroxi ne 50 mcg tablet 2022-0 -28 00:00: 00 Yes [id number] 50ug Take 1 tablet by mouth every morning. [facility] simvastatin 80 mg tablet 2022-0 2-28 00:00: 00 Yes [id number] 80mg Take 1 tablet by mouth at bedtime. [facility] levothyroxi ne 50 mcg tablet 2022-0 2-28 00:00: 00 Yes [id number] 50ug Take 1 tablet by mouth every morning. [facility] simvastatin 80 mg tablet 2022-0 -28 00:00: 00 Yes [id number] 80mg Take 1 tablet by mouth at bedtime. [facility] levothyroxi ne 50 mcg tablet 2022-0 -28 00:00: 00 Yes [id number] 50ug Take 1 tablet by mouth every morning. [facility] simvastatin 80 mg tablet 2022-0 28 00:00: 00 Yes [id number] 80mg Take 1 tablet by mouth at bedtime. [facility] levothyroxi ne 50 mcg tablet 2022-0 -28 00:00: 00 Yes [id number] 50ug Take 1 tablet by mouth every morning. [facility] simvastatin 80 mg tablet 2022-0 28 00:00: 00 Yes [id number] 80mg Take 1 tablet by mouth at bedtime. [facility] levothyroxi ne 50 mcg tablet 2022-0 -28 00:00: 00 Yes [id number] 50ug Take 1 tablet by mouth every morning. [facility] simvastatin 80 mg tablet 3-0 2-28 00:00: 00 Yes [id number] 80mg Take 1 tablet by mouth at bedtime. [facility] levothyroxi ne 50 mcg tablet 3-0 2-28 00:00: 00 Yes [id number] 50ug Take 1 tablet by mouth every morning. [facility] simvastatin 80 mg tablet 2022-0 28 00:00: 00 Yes [id number] 80mg Take 1 tablet by mouth at bedtime. [facility] levothyroxi ne 50 mcg tablet 2022-0 28 00:00: 00 Yes [id number] 50ug Take 1 tablet by mouth every morning. [facility] simvastatin 80 mg tablet 2022-0 28 00:00: 00 Yes [id number] 80mg Take 1 tablet by mouth at bedtime. [facility] levothyroxi ne 50 mcg tablet 2022-0 28 00:00: 00 Yes [id number] 50ug Take 1 tablet by mouth every morning. [facility] simvastatin 80 mg tablet 2022-0 28 00:00: 00 Yes [id number] 80mg Take 1 tablet by mouth at bedtime. [facility] levothyroxi ne 50 mcg tablet 2022-0 28 00:00: 00 Yes [id number] 50ug Take 1 tablet by mouth every morning. [facility] simvastatin 80 mg tablet 2022-0 28 00:00: 00 Yes [id number] 80mg Take 1 tablet by mouth at bedtime. [facility] levothyroxi ne 50 mcg tablet 2022-0 28 00:00: 00 Yes [id number] 50ug Take 1 tablet by mouth every morning. [facility] simvastatin 80 mg tablet 2022-0 28 00:00: 00 Yes [id number] 80mg Take 1 tablet by mouth at bedtime. [facility] levothyroxi ne 50 mcg tablet 2022-0 28 00:00: 00 Yes [id number] 50ug Take 1 tablet by mouth every morning. [facility] simvastatin 80 mg tablet 2022-0 28 00:00: 00 Yes [id number] 80mg Take 1 tablet by mouth at bedtime. [facility] simvastatin 80 mg tablet 3-0 2-28 00:00: 00 Yes [id number] 80mg Take 1 tablet by mouth at bedtime. [facility] simvastatin 80 mg tablet 3-0 2-28 00:00: 00 Yes [id number] 80mg Take 1 tablet by mouth at bedtime. [facility] simvastatin 80 mg tablet 2022-0 28 00:00: 00 Yes [id number] 80mg Take 1 tablet by mouth at bedtime. [facility] simvastatin 80 mg tablet 2022-0 28 00:00: 00 Yes [id number] 80mg Take 1 tablet by mouth at bedtime. [facility] simvastatin 80 mg tablet 2022-0 28 00:00: 00 Yes [id number] 80mg Take 1 tablet by mouth at bedtime. [facility] simvastatin 80 mg tablet 3-0 28 00:00: 00 Yes [id number] 80mg Take 1 tablet by mouth at bedtime. [facility] simvastatin 80 mg tablet 2022-0 28 00:00: 00 Yes [id number] 80mg Take 1 tablet by mouth at bedtime. [facility] simvastatin 80 mg tablet 2022-0 28 00:00: 00 Yes [id number] 80mg Take 1 tablet by mouth at bedtime. [facility] simvastatin 80 mg tablet 2022-0 28 00:00: 00 Yes [id number] 80mg Take 1 tablet by mouth at bedtime. [facility] simvastatin 80 mg tablet 2022-0 28 00:00: 00 Yes [id number] 80mg Take 1 tablet by mouth at bedtime. [facility] simvastatin 80 mg tablet 2022-0 28 00:00: 00 Yes [id number] 80mg Take 1 tablet by mouth at bedtime. [facility] simvastatin 80 mg tablet 3-0 28 00:00: 00 Yes [id number] 80mg Take 1 tablet by mouth at bedtime. [facility] simvastatin 80 mg tablet 3-0 28 00:00: 00 Yes [id number] 80mg Take 1 tablet by mouth at bedtime. [facility] simvastatin 80 mg tablet 2022-0 228 00:00: 00 Yes [id number] 80mg Take 1 tablet by mouth at bedtime. [facility] simvastatin 80 mg tablet 3-0 2-28 00:00: 00 Yes [id number] 80mg Take 1 tablet by mouth at bedtime. [facility] simvastatin 80 mg tablet 3-0 2-28 00:00: 00 Yes [id number] 80mg Take 1 tablet by mouth at bedtime. [facility] simvastatin 80 mg tablet 3-0 2-28 00:00: 00 Yes [id number] 80mg Take 1 tablet by mouth at bedtime. [facility] simvastatin 80 mg tablet 3-0 2-28 00:00: 00 Yes [id number] 80mg Take 1 tablet by mouth at bedtime. [facility] simvastatin 80 mg tablet 3-0 2-28 00:00: 00 Yes [id number] 80mg Take 1 tablet by mouth at bedtime. [facility] simvastatin 80 mg tablet 3-0 2-28 00:00: 00 Yes [id number] 80mg Take 1 tablet by mouth at bedtime. [facility] simvastatin 80 mg tablet 3-0 2-28 00:00: 00 Yes [id number] 80mg Take 1 tablet by mouth at bedtime. [facility] simvastatin 80 mg tablet 3-0 228 00:00: 00 Yes [id number] 80mg Take 1 tablet by mouth at bedtime. [facility] simvastatin 80 mg tablet 3-0 2-28 00:00: 00 Yes [id number] 80mg Take 1 tablet by mouth at bedtime. [facility] simvastatin 80 mg tablet 3-0 2-28 00:00: 00 Yes [id number] 80mg Take 1 tablet by mouth at bedtime. [facility] simvastatin 80 mg tablet 3-0 2-28 00:00: 00 Yes [id number] 80mg Take 1 tablet by mouth at bedtime. [facility] simvastatin 80 mg tablet 3-0 2-28 00:00: 00 Yes [id number] 80mg Take 1 tablet by mouth at bedtime. [facility] simvastatin 80 mg tablet 3-0 2-28 00:00: 00 Yes [id number] 80mg Take 1 tablet by mouth at bedtime. [facility] simvastatin 80 mg tablet 3-0 2-28 00:00: 00 Yes [id number] 80mg Take 1 tablet by mouth at bedtime. [facility] simvastatin 80 mg tablet 2022-0 2-28 00:00: 00 Yes [id number] 80mg Take 1 tablet by mouth at bedtime. [facility] simvastatin 80 mg tablet 2022-0 2-28 00:00: 00 Yes [id number] 80mg Take 1 tablet by mouth at bedtime. [facility] simvastatin 80 mg tablet 2022-0 2-28 00:00: 00 Yes [id number] 80mg Take 1 tablet by mouth at bedtime. [facility] simvastatin 80 mg tablet 2022-0 2-28 00:00: 00 Yes [id number] 80mg Take 1 tablet by mouth at bedtime. [facility] simvastatin 80 mg tablet 2022-0 2-28 00:00: 00 Yes [id number] 80mg Take 1 tablet by mouth at bedtime. [facility] simvastatin 80 mg tablet 2022-0 -28 00:00: 00 Yes [id number] 80mg Take 1 tablet by mouth at bedtime. [facility] simvastatin 80 mg tablet 3-0 -28 00:00: 00 08-03 00:00 :00 No [id number] 80mg Take 1 tablet by mouth at bedtime. [facility] simvastatin 80 mg tablet 3-0 2-28 00:00: 00 08-03 00:00 :00 No [id number] 80mg Take 1 tablet by mouth at bedtime. [facility] simvastatin 80 mg tablet 3-0 2-28 00:00: 00 08-03 00:00 :00 No [id number] 80mg Take 1 tablet by mouth at bedtime. [facility] simvastatin 80 mg tablet 3-0 2-28 00:00: 00 08-03 00:00 :00 No [id number] 80mg Take 1 tablet by mouth at bedtime. [facility] simvastatin 80 mg tablet 3-0 2-28 00:00: 00 2024- 01-18 00:00 :00 No [id number] 80mg Take 1 tablet by mouth at bedtime. [facility] levothyroxi ne 50 mcg tablet 2-28 00:00: 00 01-09 00:00 :00 No [id number] 50ug Take 1 tablet by mouth every morning. [facility] levothyroxi ne 50 mcg tablet 2-28 00:00: 00 01-09 00:00 :00 No [id number] 50ug Take 1 tablet by mouth every morning. [facility] adalimumab (HUMIRA,CF, PEN) 40 mg/0.4 mL injection 2-10 00:00: 00 Yes [id number] 40mg inject 1 Pen under the skin every 14 (fourteen) days. [facility] adalimumab (HUMIRA,CF, PEN) 40 mg/0.4 mL injection 2022-0 2-10 00:00: 00 Yes [id number] 40mg inject 1 Pen under the skin every 14 (fourteen) days. [facility] adalimumab (HUMIRA,CF, PEN) 40 mg/0.4 mL injection 2022-0 2-10 00:00: 00 Yes [id number] 40mg inject 1 Pen under the skin every 14 (fourteen) days. [facility] adalimumab (HUMIRA,CF, PEN) 40 mg/0.4 mL injection 2022-0 2-10 00:00: 00 Yes [id number] 40mg inject 1 Pen under the skin every 14 (fourteen) days. [facility] adalimumab (HUMIRA,CF, PEN) 40 mg/0.4 mL injection 2022-0 2-10 00:00: 00 Yes [id number] 40mg inject 1 Pen under the skin every 14 (fourteen) days. [facility] adalimumab (HUMIRA,CF, PEN) 40 mg/0.4 mL injection 2022-0 2-10 00:00: 00 Yes [id number] 40mg inject 1 Pen under the skin every 14 (fourteen) days. [facility] adalimumab (HUMIRA,CF, PEN) 40 mg/0.4 mL injection 2022-0 2-10 00:00: 00 Yes [id number] 40mg inject 1 Pen under the skin every 14 (fourteen) days. [facility] adalimumab (HUMIRA,CF, PEN) 40 mg/0.4 mL injection 0 2-10 00:00: 00 Yes [id number] 40mg inject 1 Pen under the skin every 14 (fourteen) days. [facility] adalimumab (HUMIRA,CF, PEN) 40 mg/0.4 mL injection 2022-0 2-10 00:00: 00 Yes [id number] 40mg inject 1 Pen under the skin every 14 (fourteen) days. [facility] adalimumab (HUMIRA,CF, PEN) 40 mg/0.4 mL injection 2022- 2-10 00:00: 00 Yes [id number] 40mg inject 1 Pen under the skin every 14 (fourteen) days. [facility] adalimumab (HUMIRA,CF, PEN) 40 mg/0.4 mL injection 2022-0 2-10 00:00: 00 Yes [id number] 40mg inject 1 Pen under the skin every 14 (fourteen) days. [facility] adalimumab (HUMIRA,CF, PEN) 40 mg/0.4 mL injection 2022-0 2-10 00:00: 00 Yes [id number] 40mg inject 1 Pen under the skin every 14 (fourteen) days. [facility] adalimumab (HUMIRA,CF, PEN) 40 mg/0.4 mL injection 2022-0 2-10 00:00: 00 Yes [id number] 40mg inject 1 Pen under the skin every 14 (fourteen) days. [facility] adalimumab (HUMIRA,CF, PEN) 40 mg/0.4 mL injection 2022-0 2-10 00:00: 00 Yes [id number] 40mg inject 1 Pen under the skin every 14 (fourteen) days. [facility] adalimumab (HUMIRA,CF, PEN) 40 mg/0.4 mL injection 2022-0 2-10 00:00: 00 Yes [id number] 40mg inject 1 Pen under the skin every 14 (fourteen) days. [facility] adalimumab (HUMIRA,CF, PEN) 40 mg/0.4 mL injection 2022-0 2-10 00:00: 00 Yes [id number] 40mg inject 1 Pen under the skin every 14 (fourteen) days. [facility] adalimumab (HUMIRA,CF, PEN) 40 mg/0.4 mL injection 2022-0 2-10 00:00: 00 Yes [id number] 40mg inject 1 Pen under the skin every 14 (fourteen) days. [facility] adalimumab (HUMIRA,CF, PEN) 40 mg/0.4 mL injection 2022-0 2-10 00:00: 00 Yes [id number] 40mg inject 1 Pen under the skin every 14 (fourteen) days. [facility] adalimumab (HUMIRA,CF, PEN) 40 mg/0.4 mL injection 2022-0 2-10 00:00: 00 Yes [id number] 40mg inject 1 Pen under the skin every 14 (fourteen) days. [facility] adalimumab (HUMIRA,CF, PEN) 40 mg/0.4 mL injection 2022-0 2-10 00:00: 00 Yes [id number] 40mg inject 1 Pen under the skin every 14 (fourteen) days. [facility] adalimumab (HUMIRA,CF, PEN) 40 mg/0.4 mL injection 2022-0 2-10 00:00: 00 Yes [id number] 40mg inject 1 Pen under the skin every 14 (fourteen) days. [facility] adalimumab (HUMIRA,CF, PEN) 40 mg/0.4 mL injection 2022-0 2-10 00:00: 00 Yes [id number] 40mg inject 1 Pen under the skin every 14 (fourteen) days. [facility] adalimumab (HUMIRA,CF, PEN) 40 mg/0.4 mL injection 2022-0 2-10 00:00: 00 Yes [id number] 40mg inject 1 Pen under the skin every 14 (fourteen) days. [facility] adalimumab (HUMIRA,CF, PEN) 40 mg/0.4 mL injection 2022-0 2-10 00:00: 00 11-21 00:00 :00 No [id number] 40mg inject 1 Pen under the skin every 14 (fourteen) days. [facility] aspirin 81 mg EC tablet 07-20 09:15: 37 Yes 81mg Take 81 mg by mouth in the morning. [facility] simvastatin 80 mg tablet 07-20 09:15: 37 Yes 80mg Take 80 mg by mouth at bedtime. [facility] empaglifloz in-metformi n (SYNJARDY) 5-1,000 mg Tab 07-20 09:15: 37 Yes Take by mouth 2 (two) times daily. [facility] aspirin 81 mg EC tablet 07-20 09:15: 37 Yes 81mg Take 81 mg by mouth in the morning. [facility] simvastatin 80 mg tablet 07-20 09:15: 37 Yes 80mg Take 80 mg by mouth at bedtime. [facility] empaglifloz in-metformi n (SYNJARDY) 5-1,000 mg Tab 07-20 09:15: 37 Yes Take by mouth 2 (two) times daily. [facility] aspirin 81 mg EC tablet 07-20 09:15: 37 Yes 81mg Take 81 mg by mouth in the morning. [facility] simvastatin 80 mg tablet 07-20 09:15: 37 Yes 80mg Take 80 mg by mouth at bedtime. [facility] empaglifloz in-metformi n (SYNJARDY) 5-1,000 mg Tab 07-20 09:15: 37 Yes Take by mouth 2 (two) times daily. [facility] aspirin 81 mg EC tablet 07-20 09:15: 37 Yes 81mg Take 81 mg by mouth in the morning. [facility] simvastatin 80 mg tablet 07-20 09:15: 37 Yes 80mg Take 80 mg by mouth at bedtime. [facility] empaglifloz in-metformi n (SYNJARDY) 5-1,000 mg Tab 07-20 09:15: 37 Yes Take by mouth 2 (two) times daily. [facility] aspirin 81 mg EC tablet 07-20 09:15: 37 Yes 81mg Take 81 mg by mouth in the morning. [facility] simvastatin 80 mg tablet 07-20 09:15: 37 Yes 80mg Take 80 mg by mouth at bedtime. [facility] empaglifloz in-metformi n (SYNJARDY) 5-1,000 mg Tab 07-20 09:15: 37 Yes Take by mouth 2 (two) times daily. [facility] aspirin 81 mg EC tablet 07-20 09:15: 37 Yes 81mg Take 81 mg by mouth in the morning. [facility] simvastatin 80 mg tablet 07-20 09:15: 37 Yes 80mg Take 80 mg by mouth at bedtime. [facility] empaglifloz in-metformi n (SYNJARDY) 5-1,000 mg Tab 07-20 09:15: 37 Yes Take by mouth 2 (two) times daily. [facility] aspirin 81 mg EC tablet 07-20 09:15: 37 Yes 81mg Take 81 mg by mouth in the morning. [facility] empaglifloz in-metformi n (SYNJARDY) 5-1,000 mg Tab 07-20 09:15: 37 Yes Take by mouth 2 (two) times daily. [facility] aspirin 81 mg EC tablet 07-20 09:15: 37 Yes 81mg Take 81 mg by mouth in the morning. [facility] aspirin 81 mg EC tablet 07-20 09:15: 37 Yes 81mg Take 81 mg by mouth in the morning. [facility] aspirin 81 mg EC tablet 07-20 09:15: 37 Yes 81mg Take 81 mg by mouth in the morning. [facility] aspirin 81 mg EC tablet 07-20 09:15: 37 Yes 81mg Take 81 mg by mouth in the morning. [facility] aspirin 81 mg EC tablet 30 07-20 09:15: 37 Yes 81mg Take 81 mg by mouth in the morning. [facility] aspirin 81 mg EC tablet 0 07-20 09:15: 37 Yes 81mg Take 81 mg by mouth in the morning. [facility] aspirin 81 mg EC tablet 3-0 07-20 09:15: 37 Yes 81mg Take 81 mg by mouth in the morning. [facility] aspirin 81 mg EC tablet 0 07-20 09:15: 37 Yes 81mg Take 81 mg by mouth in the morning. [facility] aspirin 81 mg EC tablet 30 07-20 09:15: 37 Yes 81mg Take 81 mg by mouth in the morning. [facility] aspirin 81 mg EC tablet 30 07-20 09:15: 37 Yes 81mg Take 81 mg by mouth in the morning. [facility] aspirin 81 mg EC tablet 0 07-20 09:15: 37 Yes 81mg Take 81 mg by mouth in the morning. [facility] aspirin 81 mg EC tablet 30 07-20 09:15: 37 Yes 81mg Take 81 mg by mouth in the morning. [facility] aspirin 81 mg EC tablet 0 07-20 09:15: 37 Yes 81mg Take 81 mg by mouth in the morning. [facility] aspirin 81 mg EC tablet 30 07-20 09:15: 37 Yes 81mg Take 81 mg by mouth in the morning. [facility] aspirin 81 mg EC tablet 30 07-20 09:15: 37 Yes 81mg Take 81 mg by mouth in the morning. [facility] aspirin 81 mg EC tablet 3-0 07-20 09:15: 37 Yes 81mg Take 81 mg by mouth in the morning. [facility] aspirin 81 mg EC tablet 3-0 07-20 09:15: 37 Yes 81mg Take 81 mg by mouth in the morning. [facility] aspirin 81 mg EC tablet 3-0 07-20 09:15: 37 Yes 81mg Take 81 mg by mouth in the morning. [facility] aspirin 81 mg EC tablet 3-0 07-20 09:15: 37 Yes 81mg Take 81 mg by mouth in the morning. [facility] aspirin 81 mg EC tablet 0 07-20 09:15: 37 Yes 81mg Take 81 mg by mouth in the morning. [facility] aspirin 81 mg EC tablet 3-0 07-20 09:15: 37 Yes 81mg Take 81 mg by mouth in the morning. [facility] aspirin 81 mg EC tablet 3-0 07-20 09:15: 37 Yes 81mg Take 81 mg by mouth in the morning. [facility] aspirin 81 mg EC tablet 2022-0 07-20 09:15: 37 Yes 81mg Take 81 mg by mouth in the morning. [facility] aspirin 81 mg EC tablet 0 07-20 09:15: 37 Yes 81mg Take 81 mg by mouth in the morning. [facility] aspirin 81 mg EC tablet 30 07-20 09:15: 37 Yes 81mg Take 81 mg by mouth in the morning. [facility] aspirin 81 mg EC tablet 3-0 07-20 09:15: 37 Yes 81mg Take 81 mg by mouth in the morning. [facility] aspirin 81 mg EC tablet 0 07-20 09:15: 37 Yes 81mg Take 81 mg by mouth in the morning. [facility] aspirin 81 mg EC tablet 2022-0 07-20 09:15: 37 Yes 81mg Take 81 mg by mouth in the morning. [facility] aspirin 81 mg EC tablet 3-0 07-20 09:15: 37 Yes 81mg Take 81 mg by mouth in the morning. [facility] aspirin 81 mg EC tablet 3-0 07-20 09:15: 37 Yes 81mg Take 81 mg by mouth in the morning. [facility] aspirin 81 mg EC tablet 3-0 07-20 09:15: 37 Yes 81mg Take 81 mg by mouth in the morning. [facility] aspirin 81 mg EC tablet 3-0 07-20 09:15: 37 Yes 81mg Take 81 mg by mouth in the morning. [facility] aspirin 81 mg EC tablet 3-0 07-20 09:15: 37 Yes 81mg Take 81 mg by mouth in the morning. [facility] aspirin 81 mg EC tablet 0 07-20 09:15: 37 Yes 81mg Take 81 mg by mouth in the morning. [facility] aspirin 81 mg EC tablet 3-0 07-20 09:15: 37 Yes 81mg Take 81 mg by mouth in the morning. [facility] aspirin 81 mg EC tablet 3-0 07-20 09:15: 37 Yes 81mg Take 81 mg by mouth in the morning. [facility] aspirin 81 mg EC tablet 3-0 07-20 09:15: 37 Yes 81mg Take 81 mg by mouth in the morning. [facility] aspirin 81 mg EC tablet 3-0 07-20 09:15: 37 Yes 81mg Take 81 mg by mouth in the morning. [facility] aspirin 81 mg EC tablet 0 07-20 09:15: 37 Yes 81mg Take 81 mg by mouth in the morning. [facility] aspirin 81 mg EC tablet 3-0 07-20 09:15: 37 Yes 81mg Take 81 mg by mouth in the morning. [facility] aspirin 81 mg EC tablet 3-0 07-20 09:15: 37 Yes 81mg Take 81 mg by mouth in the morning. [facility] aspirin 81 mg EC tablet 3-0 07-20 09:15: 37 Yes 81mg Take 81 mg by mouth in the morning. [facility] aspirin 81 mg EC tablet 3-0 07-20 09:15: 37 Yes 81mg Take 81 mg by mouth in the morning. [facility] aspirin 81 mg EC tablet 3-0 07-20 09:15: 37 Yes 81mg Take 81 mg by mouth in the morning. [facility] aspirin 81 mg EC tablet 3-0 07-20 09:15: 37 Yes 81mg Take 81 mg by mouth in the morning. [facility] aspirin 81 mg EC tablet 3-0 07-20 09:15: 37 Yes 81mg Take 81 mg by mouth in the morning. [facility] aspirin 81 mg EC tablet 3-0 07-20 09:15: 37 Yes 81mg Take 81 mg by mouth in the morning. [facility] aspirin 81 mg EC tablet 3-0 07-20 09:15: 37 Yes 81mg Take 81 mg by mouth in the morning. [facility] aspirin 81 mg EC tablet 3-0 07-20 09:15: 37 Yes 81mg Take 81 mg by mouth in the morning. [facility] aspirin 81 mg EC tablet 3-0 07-20 09:15: 37 Yes 81mg Take 81 mg by mouth in the morning. [facility] aspirin 81 mg EC tablet 3-0 07-20 09:15: 37 Yes 81mg Take 81 mg by mouth in the morning. [facility] aspirin 81 mg EC tablet 3-0 07-20 09:15: 37 Yes 81mg Take 81 mg by mouth in the morning. [facility] aspirin 81 mg EC tablet 3-0 07-20 09:15: 37 Yes 81mg Take 81 mg by mouth in the morning. [facility] aspirin 81 mg EC tablet 3-0 07-20 09:15: 37 Yes 81mg Take 81 mg by mouth in the morning. [facility] aspirin 81 mg EC tablet 30 07-20 09:15: 37 Yes 81mg Take 81 mg by mouth in the morning. [facility] aspirin 81 mg EC tablet 3-0 07-20 09:15: 37 Yes 81mg Take 81 mg by mouth in the morning. [facility] aspirin 81 mg EC tablet 3-0 07-20 09:15: 37 Yes 81mg Take 81 mg by mouth in the morning. [facility] aspirin 81 mg EC tablet 3-0 07-20 09:15: 37 Yes 81mg Take 81 mg by mouth in the morning. [facility] aspirin 81 mg EC tablet 3-0 07-20 09:15: 37 Yes 81mg Take 81 mg by mouth in the morning. [facility] aspirin 81 mg EC tablet 0 07-20 09:15: 37 Yes 81mg Take 81 mg by mouth in the morning. [facility] aspirin 81 mg EC tablet 30 07-20 09:15: 37 Yes 81mg Take 81 mg by mouth in the morning. [facility] aspirin 81 mg EC tablet 0 07-20 09:15: 37 Yes 81mg Take 81 mg by mouth in the morning. [facility] aspirin 81 mg EC tablet 0 07-20 09:15: 37 Yes 81mg Take 81 mg by mouth in the morning. [facility] aspirin 81 mg EC tablet 30 07-20 09:15: 37 Yes 81mg Take 81 mg by mouth in the morning. [facility] aspirin 81 mg EC tablet 0 07-20 09:15: 37 Yes 81mg Take 81 mg by mouth in the morning. [facility] aspirin 81 mg EC tablet 30 07-20 09:15: 37 Yes 81mg Take 81 mg by mouth in the morning. [facility] aspirin 81 mg EC tablet 0 07-20 09:15: 37 Yes 81mg Take 81 mg by mouth in the morning. [facility] aspirin 81 mg EC tablet 0 07-20 09:15: 37 Yes 81mg Take 81 mg by mouth in the morning. [facility] aspirin 81 mg EC tablet 0 07-20 09:15: 37 Yes 81mg Take 81 mg by mouth in the morning. [facility] aspirin 81 mg EC tablet 0 07-20 09:15: 37 Yes 81mg Take 81 mg by mouth in the morning. [facility] aspirin 81 mg EC tablet 30 07-20 09:15: 37 Yes 81mg Take 81 mg by mouth in the morning. [facility] aspirin 81 mg EC tablet 3-0 07-20 09:15: 37 Yes 81mg Take 81 mg by mouth in the morning. [facility] aspirin 81 mg EC tablet 3-0 07-20 09:15: 37 Yes 81mg Take 81 mg by mouth in the morning. [facility] aspirin 81 mg EC tablet 07-20 09:15: 37 Yes 81mg Take 81 mg by mouth in the morning. [facility] aspirin 81 mg EC tablet 07-20 09:15: 37 Yes 81mg Take 81 mg by mouth in the morning. [facility] aspirin 81 mg EC tablet 07-20 09:15: 37 Yes 81mg Take 81 mg by mouth in the morning. [facility] celecoxib (CELEBREX) 200 mg capsule 03-09 00:00: 00 04-09 04:59 :00 No [id number] 200mg Take 1 capsule by mouth in the morning for 30 days. [facility] celecoxib (CELEBREX) 200 mg capsule 03-09 00:00: 00 04-09 04:59 :00 No [id number] 200mg Take 1 capsule by mouth in the morning for 30 days. [facility] celecoxib (CELEBREX) 200 mg capsule 03-09 00:00: 00 04-09 04:59 :00 No [id number] 200mg Take 1 capsule by mouth in the morning for 30 days. [facility] celecoxib (CELEBREX) 200 mg capsule 03-09 00:00: 00 04-09 04:59 :00 No [id number] 200mg Take 1 capsule by mouth in the morning for 30 days. [facility] adalimumab (HUMIRA,CF, PEN) 40 mg/0.4 mL injection 03-07 00:00: 00 Yes [id number] 40mg inject 1 Pen under the skin every 14 (fourteen) days. [facility] adalimumab (HUMIRA,CF, PEN) 40 mg/0.4 mL injection 03-07 00:00: 00 Yes [id number] 40mg inject 1 Pen under the skin every 14 (fourteen) days. [facility] adalimumab (HUMIRA,CF, PEN) 40 mg/0.4 mL injection 03-07 00:00: 00 Yes [id number] 40mg inject 1 Pen under the skin every 14 (fourteen) days. [facility] adalimumab (HUMIRA,CF, PEN) 40 mg/0.4 mL injection 03-07 00:00: 00 Yes [id number] 40mg inject 1 Pen under the skin every 14 (fourteen) days. [facility] adalimumab (HUMIRA,CF, PEN) 40 mg/0.4 mL injection 2021-03-07 00:00: 00 Yes [id number] 40mg inject 1 Pen under the skin every 14 (fourteen) days. [facility] adalimumab (HUMIRA,CF, PEN) 40 mg/0.4 mL injection 03-07 00:00: 00 Yes [id number] 40mg inject 1 Pen under the skin every 14 (fourteen) days. [facility] adalimumab (HUMIRA,CF, PEN) 40 mg/0.4 mL injection 03-07 00:00: 00 Yes [id number] 40mg inject 1 Pen under the skin every 14 (fourteen) days. [facility] adalimumab (HUMIRA,CF, PEN) 40 mg/0.4 mL injection 03-07 00:00: 00 Yes [id number] 40mg inject 1 Pen under the skin every 14 (fourteen) days. [facility] adalimumab (HUMIRA,CF, PEN) 40 mg/0.4 mL injection 2021-03-07 00:00: 00 Yes [id number] 40mg inject 1 Pen under the skin every 14 (fourteen) days. [facility] adalimumab (HUMIRA,CF, PEN) 40 mg/0.4 mL injection 0 03-07 00:00: 00 Yes [id number] 40mg inject 1 Pen under the skin every 14 (fourteen) days. [facility] adalimumab (HUMIRA,CF, PEN) 40 mg/0.4 mL injection 2021-0 03-07 00:00: 00 Yes [id number] 40mg inject 1 Pen under the skin every 14 (fourteen) days. [facility] adalimumab (HUMIRA,CF, PEN) 40 mg/0.4 mL injection 2021-03-07 00:00: 00 Yes [id number] 40mg inject 1 Pen under the skin every 14 (fourteen) days. [facility] adalimumab (HUMIRA,CF, PEN) 40 mg/0.4 mL injection 03-07 00:00: 00 Yes [id number] 40mg inject 1 Pen under the skin every 14 (fourteen) days. [facility] adalimumab (HUMIRA,CF, PEN) 40 mg/0.4 mL injection 03-07 00:00: 00 Yes [id number] 40mg inject 1 Pen under the skin every 14 (fourteen) days. [facility] adalimumab (HUMIRA,CF, PEN) 40 mg/0.4 mL injection 03-07 00:00: 00 Yes [id number] 40mg inject 1 Pen under the skin every 14 (fourteen) days. [facility] adalimumab (HUMIRA,CF, PEN) 40 mg/0.4 mL injection 03-07 00:00: 00 Yes [id number] 40mg inject 1 Pen under the skin every 14 (fourteen) days. [facility] adalimumab (HUMIRA,CF, PEN) 40 mg/0.4 mL injection 03-07 00:00: 00 Yes [id number] 40mg inject 1 Pen under the skin every 14 (fourteen) days. [facility] adalimumab (HUMIRA,CF, PEN) 40 mg/0.4 mL injection 03-07 00:00: 00 Yes [id number] 40mg inject 1 Pen under the skin every 14 (fourteen) days. [facility] adalimumab (HUMIRA,CF, PEN) 40 mg/0.4 mL injection 03-07 00:00: 00 Yes [id number] 40mg inject 1 Pen under the skin every 14 (fourteen) days. [facility] adalimumab (HUMIRA,CF, PEN) 40 mg/0.4 mL injection 2021-0 03-07 00:00: 00 Yes [id number] 40mg inject 1 Pen under the skin every 14 (fourteen) days. [facility] adalimumab (HUMIRA,CF, PEN) 40 mg/0.4 mL injection 03-07 00:00: 00 Yes [id number] 40mg inject 1 Pen under the skin every 14 (fourteen) days. [facility] adalimumab (HUMIRA,CF, PEN) 40 mg/0.4 mL injection 03-07 00:00: 00 Yes [id number] 40mg inject 1 Pen under the skin every 14 (fourteen) days. [facility] adalimumab (HUMIRA,CF, PEN) 40 mg/0.4 mL injection 03-07 00:00: 00 Yes [id number] 40mg inject 1 Pen under the skin every 14 (fourteen) days. [facility] adalimumab (HUMIRA,CF, PEN) 40 mg/0.4 mL injection 03-07 00:00: 00 Yes [id number] 40mg inject 1 Pen under the skin every 14 (fourteen) days. [facility] adalimumab (HUMIRA,CF, PEN) 40 mg/0.4 mL injection 03-07 00:00: 00 Yes [id number] 40mg inject 1 Pen under the skin every 14 (fourteen) days. [facility] adalimumab (HUMIRA,CF, PEN) 40 mg/0.4 mL injection 03-07 00:00: 00 Yes [id number] 40mg inject 1 Pen under the skin every 14 (fourteen) days. [facility] adalimumab (HUMIRA,CF, PEN) 40 mg/0.4 mL injection 03-07 00:00: 00 08-24 00:00 :00 No [id number] 40mg inject 1 Pen under the skin every 14 (fourteen) days. [facility] blood sugar diagnostic (ACCU-CHEK GUIDE TEST STRIPS) strip 02-27 00:00: 00 Yes [id number] Use Daily. Dx E11.9 [facility] blood sugar diagnostic (ACCU-CHEK GUIDE TEST STRIPS) strip 02-27 00:00: 00 Yes [id number] Use Daily. Dx E11.9 [facility] blood sugar diagnostic (ACCU-CHEK GUIDE TEST STRIPS) strip 2-0 8-14 00:00: 00 Yes [id number] Use Daily. Dx E11.9 [facility] blood sugar diagnostic (ACCU-CHEK GUIDE TEST STRIPS) strip 2021-0 8-14 00:00: 00 Yes [id number] Use Daily. Dx E11.9 [facility] blood sugar diagnostic (ACCU-CHEK GUIDE TEST STRIPS) strip 2021-0 8-14 00:00: 00 Yes [id number] Use Daily. Dx E11.9 [facility] blood sugar diagnostic (ACCU-CHEK GUIDE TEST STRIPS) strip 2021-0 8-14 00:00: 00 Yes [id number] Use Daily. [facility]K GUIDE TEST STRIPS) strip 2021-0 8-14 00:00: 00 Yes [id number] Use Daily. Dx E11.9 [facility] (ACCU-CHEK GUIDE TEST STRIPS) strip 2021-0 8-14 00:00: 00 Yes [id number] Use Daily. Dx E11.9 [facility] (ACCU-CHEK GUIDE TEST STRIPS) strip 2021-0 8-14 00:00: 00 Yes [id number] Use Daily. Dx E11.9 [facility] blood sugar diagnostic (ACCU-CHEK GUIDE TEST STRIPS) strip 2-0 8-14 00:00: 00 Yes [id number] Use Daily. Dx E11.9 [facility] (ACCU-CHEK GUIDE TEST STRIPS) strip 2021-0 8-14 00:00: 00 Yes [id number] Use Daily. Dx E11.9 [facility] (ACCU-CHEK GUIDE TEST STRIPS) strip 2021-0 8-14 00:00: 00 Yes [id number] Use Daily. Dx E11.9 [facility] (ACCU-CHEK GUIDE TEST STRIPS) strip 2-0 8-14 00:00: 00 Yes [id number] Use Daily. Dx E11.9 [facility] blood sugar diagnostic (ACCU-CHEK GUIDE TEST STRIPS) strip 2-0 8-14 00:00: 00 Yes [id number] Use Daily. Dx E11.9 [facility] blood sugar diagnostic (ACCU-CHEK GUIDE TEST STRIPS) strip 2021-0 8-14 00:00: 00 Yes [id number] Use Daily. Dx E11.9 [facility] blood sugar diagnostic (ACCU-CHEK GUIDE TEST STRIPS) strip 2021-0 8-14 00:00: 00 Yes [id number] Use Daily. Dx E11.9 [facility] blood sugar diagnostic (ACCU-CHEK GUIDE TEST STRIPS) strip 2021-0 8-14 00:00: 00 Yes [id number] Use Daily. Dx E11.9 [facility] (ACCU-CHEK GUIDE TEST STRIPS) strip 2021-0 8-14 00:00: 00 Yes [id number] Use Daily. Dx E11.9 [facility] (ACCU-CHEK GUIDE TEST STRIPS) strip 2021-0 8-14 00:00: 00 Yes [id number] Use Daily. Dx E11.9 [facility] (ACCU-CHEK GUIDE TEST STRIPS) strip 2021-0 8-14 00:00: 00 Yes [id number] Use Daily. Dx E11.9 [facility] (ACCU-CHEK GUIDE TEST STRIPS) strip 2-0 8-14 00:00: 00 Yes [id number] Use Daily. Dx E11.9 [facility] (ACCU-CHEK GUIDE TEST STRIPS) strip 2021-0 8-14 00:00: 00 Yes [id number] Use Daily. Dx E11.9 [facility] (ACCU-CHEK GUIDE TEST STRIPS) strip 2-0 8-14 00:00: 00 Yes [id number] Use Daily. Dx E11.9 [facility] blood sugar diagnostic (ACCU-CHEK GUIDE TEST STRIPS) strip 2-0 8-14 00:00: 00 Yes [id number] Use Daily. Dx E11.9 [facility] blood sugar diagnostic (ACCU-CHEK GUIDE TEST STRIPS) strip 2-0 8-14 00:00: 00 Yes [id number] Use Daily. Dx E11.9 [facility] blood sugar diagnostic (ACCU-CHEK GUIDE TEST STRIPS) strip 2021-0 8-14 00:00: 00 Yes [id number] Use Daily. Dx E11.9 [facility] blood sugar diagnostic (ACCU-CHEK GUIDE TEST STRIPS) strip 2021-0 8-14 00:00: 00 Yes [id number] Use Daily. Dx E11.9 [facility] blood sugar diagnostic (ACCU-CHEK GUIDE TEST STRIPS) strip 2-0 8-14 00:00: 00 Yes [id number] Use Daily. Dx E11.9 [facility] (ACCU-CHEK GUIDE TEST STRIPS) strip 2021-0 8-14 00:00: 00 Yes [id number] Use Daily. Dx E11.9 [facility] (ACCU-CHEK GUIDE TEST STRIPS) strip 2021-0 8-14 00:00: 00 Yes [id number] Use Daily. Dx E11.9 [facility] diagnostic (ACCU-CHEK GUIDE TEST STRIPS) strip 2021-0 8-14 00:00: 00 Yes [id number] Use Daily. Dx E11.9 [facility] (ACCU-CHEK GUIDE TEST STRIPS) strip 2021-0 8-14 00:00: 00 Yes [id number] Use Daily. Dx E11.9 [facility] (ACCU-CHEK GUIDE TEST STRIPS) strip 2021-0 8-14 00:00: 00 Yes [id number] Use Daily. Dx E11.9 [facility] (ACCU-CHEK GUIDE TEST STRIPS) strip 2-0 8-14 00:00: 00 Yes [id number] Use Daily. Dx E11.9 [facility] blood sugar diagnostic (ACCU-CHEK GUIDE TEST STRIPS) strip 2-0 8-14 00:00: 00 Yes [id number] Use Daily. Dx E11.9 [facility] blood sugar diagnostic (ACCU-CHEK GUIDE TEST STRIPS) strip 2022-0 8-14 00:00: 00 Yes [id number] Use Daily. Dx E11.9 [facility] blood sugar diagnostic (ACCU-CHEK GUIDE TEST STRIPS) strip 2-0 8-14 00:00: 00 Yes [id number] Use Daily. Dx E11.9 [facility] blood sugar diagnostic (ACCU-CHEK GUIDE TEST STRIPS) strip 2-0 8-14 00:00: 00 Yes [id number] Use Daily. Dx E11.9 [facility] blood sugar diagnostic (ACCU-CHEK GUIDE TEST STRIPS) strip 2-0 8-14 00:00: 00 Yes [id number] Use Daily. Dx E11.9 [facility] blood sugar diagnostic (ACCU-CHEK GUIDE TEST STRIPS) strip 2021-0 8-14 00:00: 00 Yes [id number] Use Daily. Dx E11.9 [facility] (ACCU-CHEK GUIDE TEST STRIPS) strip 2021-0 8-14 00:00: 00 Yes [id number] Use Daily. Dx E11.9 [facility] blood sugar diagnostic (ACCU-CHEK GUIDE TEST STRIPS) strip 2021-0 8-14 00:00: 00 Yes [id number] Use Daily. Dx E11.9 [facility] blood sugar diagnostic (ACCU-CHEK GUIDE TEST STRIPS) strip 2-0 8-14 00:00: 00 Yes [id number] Use Daily. Dx E11.9 [facility] blood sugar diagnostic (ACCU-CHEK GUIDE TEST STRIPS) strip 2021-0 8-14 00:00: 00 Yes [id number] Use Daily. Dx E11.9 [facility] blood sugar diagnostic (ACCU-CHEK GUIDE TEST STRIPS) strip 2-0 8-14 00:00: 00 Yes [id number] Use Daily. Dx E11.9 [facility] blood sugar diagnostic (ACCU-CHEK GUIDE TEST STRIPS) strip 2-0 8-14 00:00: 00 Yes [id number] Use Daily. Dx E11.9 [facility] blood sugar diagnostic (ACCU-CHEK GUIDE TEST STRIPS) strip 2-0 8-14 00:00: 00 Yes [id number] Use Daily. Dx E11.9 [facility] blood sugar diagnostic (ACCU-CHEK GUIDE TEST STRIPS) strip 2021-0 8-14 00:00: 00 Yes [id number] Use Daily. Dx E11.9 [facility] blood sugar diagnostic (ACCU-CHEK GUIDE TEST STRIPS) strip 2021-0 8-14 00:00: 00 Yes [id number] Use Daily. Dx E11.9 [facility] blood sugar diagnostic (ACCU-CHEK GUIDE TEST STRIPS) strip 2021-0 8-14 00:00: 00 Yes [id number] Use Daily. Dx E11.9 [facility] (ACCU-CHEK GUIDE TEST STRIPS) strip 2021-0 8-14 00:00: 00 Yes [id number] Use Daily. Dx E11.9 [facility] (ACCU-CHEK GUIDE TEST STRIPS) strip 2021-0 8-14 00:00: 00 Yes [id number] Use Daily. Dx E11.9 [facility] (ACCU-CHEK GUIDE TEST STRIPS) strip 2021-0 8-14 00:00: 00 Yes [id number] Use Daily. Dx E11.9 [facility] (ACCU-CHEK GUIDE TEST STRIPS) strip 2021-0 8-14 00:00: 00 Yes [id number] Use Daily. Dx E11.9 [facility] sugar diagnostic (ACCU-CHEK GUIDE TEST STRIPS) strip 2021-0 8-14 00:00: 00 Yes [id number] Use Daily. Dx E11.9 [facility] sugar diagnostic (ACCU-CHEK GUIDE TEST STRIPS) strip 2-0 8-14 00:00: 00 Yes [id number] Use Daily. Dx E11.9 [facility] blood sugar diagnostic (ACCU-CHEK GUIDE TEST STRIPS) strip 2-0 8-14 00:00: 00 Yes [id number] Use Daily. Dx E11.9 [facility] (ACCU-CHEK GUIDE TEST STRIPS) strip 2-0 8-14 00:00: 00 Yes [id number] Use Daily. Dx E11.9 [facility] blood sugar diagnostic (ACCU-CHEK GUIDE TEST STRIPS) strip 2021-0 8-14 00:00: 00 Yes [id number] Use Daily. Dx E11.9 [facility] blood sugar diagnostic (ACCU-CHEK GUIDE TEST STRIPS) strip 2-0 8-14 00:00: 00 Yes [id number] Use Daily. Dx E11.9 [facility] blood sugar diagnostic (ACCU-CHEK GUIDE TEST STRIPS) strip 2021-0 8-14 00:00: 00 Yes [id number] Use Daily. Dx E11.9 [facility] blood sugar diagnostic (ACCU-CHEK GUIDE TEST STRIPS) strip 2021-0 8-14 00:00: 00 Yes [id number] Use Daily. Dx E11.9 [facility] blood sugar diagnostic (ACCU-CHEK GUIDE TEST STRIPS) strip 2021-0 8-14 00:00: 00 Yes [id number] Use Daily. Dx E11.9 [facility] blood sugar diagnostic (ACCU-CHEK GUIDE TEST STRIPS) strip 2021-0 8-14 00:00: 00 Yes [id number] Use Daily. Dx E11.9 [facility] (ACCU-CHEK GUIDE TEST STRIPS) strip 2021-0 8-14 00:00: 00 Yes [id number] Use Daily. Dx E11.9 [facility] (ACCU-CHEK GUIDE TEST STRIPS) strip 2021-0 8-14 00:00: 00 Yes [id number] Use Daily. Dx E11.9 [facility] blood sugar diagnostic (ACCU-CHEK GUIDE TEST STRIPS) strip 2-0 8-14 00:00: 00 Yes [id number] Use Daily. Dx E11.9 [facility] blood sugar diagnostic (ACCU-CHEK GUIDE TEST STRIPS) strip 2-0 8-14 00:00: 00 Yes [id number] Use Daily. Dx E11.9 [facility] blood sugar diagnostic (ACCU-CHEK GUIDE TEST STRIPS) strip 2-0 8-14 00:00: 00 Yes [id number] Use Daily. Dx E11.9 [facility] blood sugar diagnostic (ACCU-CHEK GUIDE TEST STRIPS) strip 2-0 8-14 00:00: 00 Yes [id number] Use Daily. Dx E11.9 [facility] blood sugar diagnostic (ACCU-CHEK GUIDE TEST STRIPS) strip 2-0 8-14 00:00: 00 Yes [id number] Use Daily. Dx E11.9 [facility] blood sugar diagnostic (ACCU-CHEK GUIDE TEST STRIPS) strip 2021-0 8-14 00:00: 00 Yes [id number] Use Daily. Dx E11.9 [facility] blood sugar diagnostic (ACCU-CHEK GUIDE TEST STRIPS) strip 2021-0 8-14 00:00: 00 Yes [id number] Use Daily. Dx E11.9 [facility] (ACCU-CHEK GUIDE TEST STRIPS) strip 2021-0 8-14 00:00: 00 Yes [id number] Use Daily. Dx E11.9 [facility] (ACCU-CHEK GUIDE TEST STRIPS) strip 2021-0 8-14 00:00: 00 Yes [id number] Use Daily. Dx E11.9 [facility] diagnostic (ACCU-CHEK GUIDE TEST STRIPS) strip 2-0 8-14 00:00: 00 Yes [id number] Use Daily. Dx E11.9 [facility] sugar diagnostic (ACCU-CHEK GUIDE TEST STRIPS) strip 2-0 8-14 00:00: 00 Yes [id number] Use Daily. Dx E11.9 [facility] blood sugar diagnostic (ACCU-CHEK GUIDE TEST STRIPS) strip 2-0 8-14 00:00: 00 Yes [id number] Use Daily. Dx E11.9 [facility] blood sugar diagnostic (ACCU-CHEK GUIDE TEST STRIPS) strip 2-0 8-14 00:00: 00 Yes [id number] Use Daily. Dx E11.9 [facility] blood sugar diagnostic (ACCU-CHEK GUIDE TEST STRIPS) strip 2-0 8-14 00:00: 00 Yes [id number] Use Daily. Dx E11.9 [facility] blood sugar diagnostic (ACCU-CHEK GUIDE TEST STRIPS) strip 2-0 8-14 00:00: 00 Yes [id number] Use Daily. Dx E11.9 [facility] blood sugar diagnostic (ACCU-CHEK GUIDE TEST STRIPS) strip 2-0 8-14 00:00: 00 Yes [id number] Use Daily. Dx E11.9 [facility] blood sugar diagnostic (ACCU-CHEK GUIDE TEST STRIPS) strip 2021-0 8-14 00:00: 00 Yes [id number] Use Daily. Dx E11.9 [facility] blood sugar diagnostic (ACCU-CHEK GUIDE TEST STRIPS) strip 2-0 8-14 00:00: 00 Yes [id number] Use Daily. Dx E11.9 [facility] (ACCU-CHEK GUIDE TEST STRIPS) strip 2021-0 8-14 00:00: 00 Yes [id number] Use Daily. Dx E11.9 [facility] (ACCU-CHEK GUIDE TEST STRIPS) strip 2021-0 8-14 00:00: 00 Yes [id number] Use Daily. Dx E11.9 [facility] blood sugar diagnostic (ACCU-CHEK GUIDE TEST STRIPS) strip 2021-0 8-14 00:00: 00 Yes [id number] Use Daily. Dx E11.9 [facility] blood sugar diagnostic (ACCU-CHEK GUIDE TEST STRIPS) strip 2-0 8-14 00:00: 00 Yes [id number] Use Daily. Dx E11.9 [facility] blood sugar diagnostic (ACCU-CHEK GUIDE TEST STRIPS) strip 2-0 8-14 00:00: 00 Yes [id number] Use Daily. Dx E11.9 [facility] blood sugar diagnostic (ACCU-CHEK GUIDE TEST STRIPS) strip 2-0 8-14 00:00: 00 Yes [id number] Use Daily. Dx E11.9 [facility] blood sugar diagnostic (ACCU-CHEK GUIDE TEST STRIPS) strip 2-0 8-14 00:00: 00 Yes [id number] Use Daily. Dx E11.9 [facility] (ACCU-CHEK GUIDE TEST STRIPS) strip 2021-0 8-14 00:00: 00 Yes [id number] Use Daily. Dx E11.9 [facility] blood sugar diagnostic (ACCU-CHEK GUIDE TEST STRIPS) strip 2-0 8-14 00:00: 00 Yes [id number] Use Daily. Dx E11.9 [facility] blood sugar diagnostic (ACCU-CHEK GUIDE TEST STRIPS) strip 2021-0 8-14 00:00: 00 Yes [id number] Use Daily. Dx E11.9 [facility] blood sugar diagnostic (ACCU-CHEK GUIDE TEST STRIPS) strip 2021-0 8-14 00:00: 00 Yes [id number] Use Daily. Dx E11.9 [facility] (ACCU-CHEK GUIDE TEST STRIPS) strip 2021-0 8-14 00:00: 00 Yes [id number] Use Daily. Dx E11.9 [facility] (ACCU-CHEK GUIDE TEST STRIPS) strip 2021-0 8-14 00:00: 00 Yes [id number] Use Daily. Dx E11.9 [facility] (ACCU-CHEK GUIDE TEST STRIPS) strip 2021-0 8-14 00:00: 00 Yes [id number] Use Daily. Dx E11.9 [facility] (ACCU-CHEK GUIDE TEST STRIPS) strip 2-0 8-14 00:00: 00 Yes [id number] Use Daily. Dx E11.9 [facility] blood sugar diagnostic (ACCU-CHEK GUIDE TEST STRIPS) strip 2021-0 8-14 00:00: 00 Yes [id number] Use Daily. Dx E11.9 [facility] blood sugar diagnostic (ACCU-CHEK GUIDE TEST STRIPS) strip 2-0 8-14 00:00: 00 Yes [id number] Use Daily. Dx E11.9 [facility] blood sugar diagnostic (ACCU-CHEK GUIDE TEST STRIPS) strip 2-0 8-14 00:00: 00 Yes [id number] Use Daily. Dx E11.9 [facility] blood sugar diagnostic (ACCU-CHEK GUIDE TEST STRIPS) strip 2021-0 8-14 00:00: 00 Yes [id number] Use Daily. Dx E11.9 [facility] blood sugar diagnostic (ACCU-CHEK GUIDE TEST STRIPS) strip 2021-0 8-14 00:00: 00 Yes [id number] Use Daily. Dx E11.9 [facility] blood sugar diagnostic (ACCU-CHEK GUIDE TEST STRIPS) strip 2021-0 8-14 00:00: 00 Yes [id number] Use Daily. Dx E11.9 [facility] blood sugar diagnostic (ACCU-CHEK GUIDE TEST STRIPS) strip 2021-0 8-14 00:00: 00 Yes [id number] Use Daily. Dx E11.9 [facility] blood sugar diagnostic (ACCU-CHEK GUIDE TEST STRIPS) strip 2021-0 8-14 00:00: 00 Yes [id number] Use Daily. Dx E11.9 [facility] blood sugar diagnostic (ACCU-CHEK GUIDE TEST STRIPS) strip 2021-0 8-14 00:00: 00 Yes [id number] Use Daily. Dx E11.9 [facility] blood sugar diagnostic (ACCU-CHEK GUIDE TEST STRIPS) strip 2021-0 8-14 00:00: 00 Yes [id number] Use Daily. Dx E11.9 [facility] blood sugar diagnostic (ACCU-CHEK GUIDE TEST STRIPS) strip 2021-0 8-14 00:00: 00 Yes [id number] Use Daily. Dx E11.9 [facility] SIMVASTATIN 40 mg tablet 2021-0 8-08 00:00: 00 Yes [id number] 40mg TAKE 1 TABLET BY MOUTH AT BEDTIME [facility] SIMVASTATIN 40 mg tablet 2021-0 8-08 00:00: 00 Yes [id number] 40mg TAKE 1 TABLET BY MOUTH AT BEDTIME [facility] SIMVASTATIN 40 mg tablet 2021-0 8-08 00:00: 00 Yes [id number] 40mg TAKE 1 TABLET BY MOUTH AT BEDTIME [facility] SIMVASTATIN 40 mg tablet 2021-0 8-08 00:00: 00 Yes [id number] 40mg TAKE 1 TABLET BY MOUTH AT BEDTIME [facility] SIMVASTATIN 40 mg tablet 2-0 8-08 00:00: 00 Yes [id number] 40mg TAKE 1 TABLET BY MOUTH AT BEDTIME [facility] SIMVASTATIN 40 mg tablet 2021-0 8- 00:00: 00 Yes [id number] 40mg TAKE 1 TABLET BY MOUTH AT BEDTIME [facility] SIMVASTATIN 40 mg tablet 2-0 8 00:00: 00 Yes [id number] 40mg TAKE 1 TABLET BY MOUTH AT BEDTIME [facility] SIMVASTATIN 40 mg tablet 2-0 8 00:00: 00 Yes [id number] 40mg TAKE 1 TABLET BY MOUTH AT BEDTIME [facility] SIMVASTATIN 40 mg tablet 2-0 02-21 00:00: 00 Yes [id number] 40mg TAKE 1 TABLET BY MOUTH AT BEDTIME [facility] SIMVASTATIN 40 mg tablet 2021-0 02-21 00:00: 00 Yes [id number] 40mg TAKE 1 TABLET BY MOUTH AT BEDTIME [facility] SIMVASTATIN 40 mg tablet 2021-0 02-21 00:00: 00 Yes [id number] 40mg TAKE 1 TABLET BY MOUTH AT BEDTIME [facility] SIMVASTATIN 40 mg tablet 2021-0 02-21 00:00: 00 Yes [id number] 40mg TAKE 1 TABLET BY MOUTH AT BEDTIME [facility] SIMVASTATIN 40 mg tablet 2021-0 02-21 00:00: 00 Yes [id number] 40mg TAKE 1 TABLET BY MOUTH AT BEDTIME [facility] SIMVASTATIN 40 mg tablet 2-0 08 00:00: 00 Yes [id number] 40mg TAKE 1 TABLET BY MOUTH AT BEDTIME [facility] SIMVASTATIN 40 mg tablet 2-0 02-21 00:00: 00 Yes [id number] 40mg TAKE 1 TABLET BY MOUTH AT BEDTIME [facility] SIMVASTATIN 40 mg tablet 2021-0 02-21 00:00: 00 Yes [id number] 40mg TAKE 1 TABLET BY MOUTH AT BEDTIME [facility] SIMVASTATIN 40 mg tablet 2-0 8 00:00: 00 Yes [id number] 40mg TAKE 1 TABLET BY MOUTH AT BEDTIME [facility] SIMVASTATIN 40 mg tablet 2022-0 8-08 00:00: 00 Yes [id number] 40mg TAKE 1 TABLET BY MOUTH AT BEDTIME [facility] SIMVASTATIN 40 mg tablet 0 8-08 00:00: 00 Yes [id number] 40mg TAKE 1 TABLET BY MOUTH AT BEDTIME [facility] SIMVASTATIN 40 mg tablet 0 8 00:00: 00 Yes [id number] 40mg TAKE 1 TABLET BY MOUTH AT BEDTIME [facility] SIMVASTATIN 40 mg tablet 0 8- 00:00: 00 Yes [id number] 40mg TAKE 1 TABLET BY MOUTH AT BEDTIME [facility] SIMVASTATIN 40 mg tablet 0 8 00:00: 00 Yes [id number] 40mg TAKE 1 TABLET BY MOUTH AT BEDTIME [facility] SIMVASTATIN 40 mg tablet 02-21 00:00: 00 Yes [id number] 40mg TAKE 1 TABLET BY MOUTH AT BEDTIME [facility] SIMVASTATIN 40 mg tablet 02-21 00:00: 00 07-20 00:00 :00 No [id number] 40mg TAKE 1 TABLET BY MOUTH AT BEDTIME [facility] SIMVASTATIN 40 mg tablet 02-21 00:00: 00 07-20 00:00 :00 No [id number] 40mg TAKE 1 TABLET BY MOUTH AT BEDTIME [facility] acetaminoph en-codeine (TYLENOL-CO DEINE #3) 300-30 mg tablet 02-07 00:00: 00 Yes [id number] 2{tbl} Take 2 tablets by mouth every 6 (six) hours as needed for Pain (scale 4-6) or Pain (scale 7-10). Indication s: acute pain [facility] acetaminoph en-codeine (TYLENOL-CO DEINE #3) 300-30 mg tablet 7- 00:00: 00 Yes [id number] 2{tbl} Take 2 tablets by mouth every 6 (six) hours as needed for Pain (scale 4-6) or Pain (scale 7-10). Indication s: acute pain [facility] acetaminoph en-codeine (TYLENOL-CO DEINE #3) 300-30 mg tablet 0 02-07 00:00: 00 Yes [id number] 2{tbl} Take 2 tablets by mouth every 6 (six) hours as needed for Pain (scale 4-6) or Pain (scale 7-10). Indication s: acute pain [facility] acetaminoph en-codeine (TYLENOL-CO DEINE #3) 300-30 mg tablet 2021-0 02-07 00:00: 00 Yes [id number] 2{tbl} Take 2 tablets by mouth every 6 (six) hours as needed for Pain (scale 4-6) or Pain (scale 7-10). Indication s: acute pain [facility] acetaminoph en-codeine (TYLENOL-CO DEINE #3) 300-30 mg tablet 02-07 00:00: 00 Yes [id number] 2{tbl} Take 2 tablets by mouth every 6 (six) hours as needed for Pain (scale 4-6) or Pain (scale 7-10). Indication s: acute pain [facility] acetaminoph en-codeine (TYLENOL-CO DEINE #3) 300-30 mg tablet 02-07 00:00: 00 Yes [id number] 2{tbl} Take 2 tablets by mouth every 6 (six) hours as needed for Pain (scale 4-6) or Pain (scale 7-10). Indication s: acute pain [facility] acetaminoph en-codeine (TYLENOL-CO DEINE #3) 300-30 mg tablet 02-07 00:00: 00 Yes [id number] 2{tbl} Take 2 tablets by mouth every 6 (six) hours as needed for Pain (scale 4-6) or Pain (scale 7-10). Indication s: acute pain [facility] acetaminoph en-codeine (TYLENOL-CO DEINE #3) 300-30 mg tablet 2021-0 02-07 00:00: 00 Yes [id number] 2{tbl} Take 2 tablets by mouth every 6 (six) hours as needed for Pain (scale 4-6) or Pain (scale 7-10). Indication s: acute pain [facility] acetaminoph en-codeine (TYLENOL-CO DEINE #3) 300-30 mg tablet 02-07 00:00: 00 Yes [id number] 2{tbl} Take 2 tablets by mouth every 6 (six) hours as needed for Pain (scale 4-6) or Pain (scale 7-10). Indication s: acute pain [facility] acetaminoph en-codeine (TYLENOL-CO DEINE #3) 300-30 mg tablet 02-07 00:00: 00 Yes 4647 2{tbl} Take 2 tablets by mouth every 6 (six) hours as needed for Pain (scale 4-6) or Pain (scale 7-10). Indication s: acute pain [facility] acetaminoph en-codeine (TYLENOL-CO DEINE #3) 300-30 mg tablet 02-07 00:00: 00 Yes 4647 2{tbl} Take 2 tablets by mouth every 6 (six) hours as needed for Pain (scale 4-6) or Pain (scale 7-10). Indication s: acute pain [facility] acetaminoph en-codeine (TYLENOL-CO DEINE #3) 300-30 mg tablet 02-07 00:00: 00 Yes 4647 2{tbl} Take 2 tablets by mouth every 6 (six) hours as needed for Pain (scale 4-6) or Pain (scale 7-10). Indication s: acute pain [facility] acetaminoph en-codeine (TYLENOL-CO DEINE #3) 300-30 mg tablet 02-07 00:00: 00 Yes 4647 2{tbl} Take 2 tablets by mouth every 6 (six) hours as needed for Pain (scale 4-6) or Pain (scale 7-10). Indication s: acute pain [facility] acetaminoph en-codeine (TYLENOL-CO DEINE #3) 300-30 mg tablet 02-07 00:00: 00 Yes 4647 2{tbl} Take 2 tablets by mouth every 6 (six) hours as needed for Pain (scale 4-6) or Pain (scale 7-10). Indication s: acute pain [facility] acetaminoph en-codeine (TYLENOL-CO DEINE #3) 300-30 mg tablet 02-07 00:00: 00 Yes 4647 2{tbl} Take 2 tablets by mouth every 6 (six) hours as needed for Pain (scale 4-6) or Pain (scale 7-10). Indication s: acute [facility] acetaminoph en-codeine (TYLENOL-CO DEINE #3) 300-30 mg tablet 02-07 00:00: 00 Yes 4647 2{tbl} Take 2 tablets by mouth every 6 (six) hours as needed for Pain (scale 4-6) or Pain (scale 7-10). Indication s: acute pain [facility] acetaminoph en-codeine (TYLENOL-CO DEINE #3) 300-30 mg tablet 02-07 00:00: 00 Yes 4647 2{tbl} Take 2 tablets by mouth every 6 (six) hours as needed for Pain (scale 4-6) or Pain (scale 7-10). Indication s: acute pain [facility] acetaminoph en-codeine (TYLENOL-CO DEINE #3) 300-30 mg tablet 02-07 00:00: 00 Yes 4647 2{tbl} Take 2 tablets by mouth every 6 (six) hours as needed for Pain (scale 4-6) or Pain (scale 7-10). Indication s: acute pain [facility] acetaminoph en-codeine (TYLENOL-CO DEINE #3) 300-30 mg tablet 02-07 00:00: 00 Yes 4647 2{tbl} Take 2 tablets by mouth every 6 (six) hours as needed for Pain (scale 4-6) or Pain (scale 7-10). Indication s: acute pain [facility] acetaminoph en-codeine (TYLENOL-CO DEINE #3) 300-30 mg tablet 02-07 00:00: 00 Yes 4647 2{tbl} Take 2 tablets by mouth every 6 (six) hours as needed for Pain (scale 4-6) or Pain (scale 7-10). Indication s: acute pain [facility] acetaminoph en-codeine (TYLENOL-CO DEINE #3) 300-30 mg tablet 02-07 00:00: 00 Yes 4647 2{tbl} Take 2 tablets by mouth every 6 (six) hours as needed for Pain (scale 4-6) or Pain (scale 7-10). Indication s: acute pain [facility] acetaminoph en-codeine (TYLENOL-CO DEINE #3) 300-30 mg tablet 02-07 00:00: 00 Yes 4647 2{tbl} Take 2 tablets by mouth every 6 (six) hours as needed for Pain (scale 4-6) or Pain (scale 7-10). Indication s: acute pain [facility] acetaminoph en-codeine (TYLENOL-CO DEINE #3) 300-30 mg tablet 02-07 00:00: 00 Yes 4647 2{tbl} Take 2 tablets by mouth every 6 (six) hours as needed for Pain (scale 4-6) or Pain (scale 7-10). Indication s: acute pain [facility] acetaminoph en-codeine (TYLENOL-CO DEINE #3) 300-30 mg tablet 02-07 00:00: 00 Yes 4647 2{tbl} Take 2 tablets by mouth every 6 (six) hours as needed for Pain (scale 4-6) or Pain (scale 7-10). Indication s: acute pain [facility] acetaminoph en-codeine (TYLENOL-CO DEINE #3) 300-30 mg tablet 02-07 00:00: 00 Yes 4647 2{tbl} Take 2 tablets by mouth every 6 (six) hours as needed for Pain (scale 4-6) or Pain (scale 7-10). Indication s: acute pain [facility] acetaminoph en-codeine (TYLENOL-CO DEINE #3) 300-30 mg [...] Indication s: acute pain [facility] acetaminoph en-codeine (TYLENOL-CO DEINE #3) 300-30 mg tablet 02-07 00:00: 00 Yes 4647 2{tbl} Take 2 tablets by mouth every 6 (six) hours as needed for Pain (scale 4-6) or Pain (scale 7-10). Indication s: acute pain [facility] acetaminoph en-codeine (TYLENOL-CO DEINE #3) 300-30 mg tablet 02-07 00:00: 00 Yes 4647 2{tbl} Take 2 tablets by mouth every 6 (six) hours as needed for Pain (scale 4-6) or Pain (scale 7-10). Indication s: acute pain [facility] acetaminoph en-codeine (TYLENOL-CO DEINE #3) 300-30 mg tablet 02-07 00:00: 00 Yes 4647 2{tbl} Take 2 tablets by mouth every 6 (six) hours as needed for Pain (scale 4-6) or Pain (scale 7-10). Indication s: acute pain [facility] acetaminoph en-codeine (TYLENOL-CO DEINE #3) 300-30 mg tablet 02-07 00:00: 00 Yes 4647 2{tbl} Take 2 tablets by mouth every 6 (six) hours as needed for Pain (scale 4-6) or Pain (scale 7-10). Indication s: acute pain [facility] acetaminoph en-codeine (TYLENOL-CO DEINE #3) 300-30 mg tablet 02-07 00:00: 00 Yes 4647 2{tbl} Take 2 tablets by mouth every 6 (six) hours as needed for Pain (scale 4-6) or Pain (scale 7-10). Indication s: acute pain [facility] acetaminoph en-codeine (TYLENOL-CO DEINE #3) 300-30 mg tablet 02-07 00:00: 00 Yes 4647 2{tbl} Take 2 tablets by mouth every 6 (six) hours as needed for Pain (scale 4-6) or Pain (scale 7-10). Indication s: acute pain [facility] acetaminoph en-codeine (TYLENOL-CO DEINE #3) 300-30 mg tablet 02-07 00:00: 00 Yes 4647 2{tbl} Take 2 tablets by mouth every 6 (six) hours as needed for Pain (scale 4-6) or Pain (scale 7-10). Indication s: acute pain [facility] acetaminoph en-codeine (TYLENOL-CO DEINE #3) 300-30 mg tablet 02-07 00:00: 00 Yes 4647 2{tbl} Take 2 tablets by mouth every 6 (six) hours as needed for Pain (scale 4-6) or Pain (scale 7-10). Indication s: acute pain [facility] acetaminoph en-codeine (TYLENOL-CO DEINE #3) 300-30 mg tablet 02-07 00:00: 00 Yes 4647 2{tbl} Take 2 tablets by mouth every 6 (six) hours as needed for Pain (scale 4-6) or Pain (scale 7-10). Indication s: acute pain [facility] acetaminoph en-codeine (TYLENOL-CO DEINE #3) 300-30 mg tablet 02-07 00:00: 00 Yes 4647 2{tbl} Take 2 tablets by mouth every 6 (six) hours as needed for Pain (scale 4-6) or Pain (scale 7-10). Indication s: acute pain [facility] acetaminoph en-codeine (TYLENOL-CO DEINE #3) 300-30 mg tablet 02-07 00:00: 00 Yes 4647 2{tbl} Take 2 tablets by mouth every 6 (six) hours as needed for Pain (scale 4-6) or Pain (scale 7-10). Indication s: acute pain [facility] acetaminoph en-codeine (TYLENOL-CO DEINE #3) 300-30 mg tablet 0 02-07 00:00: 00 Yes 4647 2{tbl} Take 2 tablets by mouth every 6 (six) hours as needed for Pain (scale 4-6) or Pain (scale 7-10). Indication s: acute pain [facility] acetaminoph en-codeine (TYLENOL-CO DEINE #3) 300-30 mg tablet 02-07 00:00: 00 Yes 4647 2{tbl} Take 2 tablets by mouth every 6 (six) hours as needed for Pain (scale 4-6) or Pain (scale 7-10). Indication s: acute pain [facility] acetaminoph en-codeine (TYLENOL-CO DEINE #3) 300-30 mg tablet 02-07 00:00: 00 Yes 4647 2{tbl} Take 2 tablets by mouth every 6 (six) hours as needed for Pain (scale 4-6) or Pain (scale 7-10). Indication s: acute pain [facility] acetaminoph en-codeine (TYLENOL-CO DEINE #3) 300-30 mg tablet 02-07 00:00: 00 Yes 4647 2{tbl} Take 2 tablets by mouth every 6 (six) hours as needed for Pain (scale 4-6) or Pain (scale 7-10). Indication s: acute pain [facility] acetaminoph en-codeine (TYLENOL-CO DEINE #3) 300-30 mg tablet 02-07 00:00: 00 Yes 4647 2{tbl} Take 2 tablets by mouth every 6 (six) hours as needed for Pain (scale 4-6) or Pain (scale 7-10). Indication s: acute pain [facility] acetaminoph en-codeine (TYLENOL-CO DEINE #3) 300-30 mg tablet 2021-02-07 00:00: 00 Yes 4647 2{tbl} Take 2 tablets by mouth every 6 (six) hours as needed for Pain (scale 4-6) or Pain (scale 7-10). Indication s: acute pain [facility] acetaminoph en-codeine (TYLENOL-CO DEINE #3) 300-30 mg tablet 02-07 00:00: 00 Yes 4647 2{tbl} Take 2 tablets by mouth every 6 (six) hours as needed for Pain (scale 4-6) or Pain (scale 7-10). Indication s: acute pain [facility] acetaminoph en-codeine (TYLENOL-CO DEINE #3) 300-30 mg tablet 02-07 00:00: 00 Yes 4647 2{tbl} Take 2 tablets by mouth every 6 (six) hours as needed for Pain (scale 4-6) or Pain (scale 7-10). Indication s: acute pain [facility] acetaminoph en-codeine (TYLENOL-CO DEINE #3) 300-30 mg tablet 02-07 00:00: 00 Yes 4647 2{tbl} Take 2 tablets by mouth every 6 (six) hours as needed for Pain (scale 4-6) or Pain (scale 7-10). Indication s: acute pain [facility] acetaminoph en-codeine (TYLENOL-CO DEINE #3) 300-30 mg tablet 02-07 00:00: 00 Yes 4647 2{tbl} Take 2 tablets by mouth every 6 (six) hours as needed for Pain (scale 4-6) or Pain (scale 7-10). Indication s: acute pain [facility] acetaminoph en-codeine (TYLENOL-CO DEINE #3) 300-30 mg tablet 02-07 00:00: 00 Yes 4647 2{tbl} Take 2 tablets by mouth every 6 (six) hours as needed for Pain (scale 4-6) or Pain (scale 7-10). Indication s: acute pain [facility] acetaminoph en-codeine (TYLENOL-CO DEINE #3) 300-30 mg tablet 02-07 00:00: 00 Yes 4647 2{tbl} Take 2 tablets by mouth every 6 (six) hours as needed for Pain (scale 4-6) or Pain (scale 7-10). Indication s: acute pain [facility] acetaminoph en-codeine (TYLENOL-CO DEINE #3) 300-30 mg tablet 02-07 00:00: 00 Yes 4647 2{tbl} Take 2 tablets by mouth every 6 (six) hours as needed for Pain (scale 4-6) or Pain (scale 7-10). Indication s: acute pain [facility] acetaminoph en-codeine (TYLENOL-CO DEINE #3) 300-30 mg tablet 02-07 00:00: 00 Yes 4647 2{tbl} Take 2 tablets by mouth every 6 (six) hours as needed for Pain (scale 4-6) or Pain (scale 7-10). Indication s: acute pain [facility] acetaminoph en-codeine (TYLENOL-CO DEINE #3) 300-30 mg tablet 02-07 00:00: 00 Yes 4647 2{tbl} Take 2 tablets by mouth every 6 (six) hours as needed for Pain (scale 4-6) or Pain (scale 7-10). Indication s: acute pain [facility] acetaminoph en-codeine (TYLENOL-CO DEINE #3) 300-30 mg tablet 02-07 00:00: 00 Yes 4647 2{tbl} Take 2 tablets by mouth every 6 (six) hours as needed for Pain (scale 4-6) or Pain (scale 7-10). Indication s: acute pain [facility] acetaminoph en-codeine (TYLENOL-CO DEINE #3) 300-30 mg tablet 02-07 00:00: 00 Yes 4647 2{tbl} Take 2 tablets by mouth every 6 (six) hours as needed for Pain (scale 4-6) or Pain (scale 7-10). Indication s: acute pain [facility] acetaminoph en-codeine (TYLENOL-CO DEINE #3) 300-30 mg tablet 02-07 00:00: 00 Yes 4647 2{tbl} Take 2 tablets by mouth every 6 (six) hours as needed for Pain (scale 4-6) or Pain (scale 7-10). Indication s: acute pain [facility] acetaminoph en-codeine (TYLENOL-CO DEINE #3) 300-30 mg tablet 02-07 00:00: 00 Yes 4647 2{tbl} Take 2 tablets by mouth every 6 (six) hours as needed for Pain (scale 4-6) or Pain (scale 7-10). Indication s: acute pain [facility] acetaminoph en-codeine (TYLENOL-CO DEINE #3) 300-30 mg tablet 02-07 00:00: 00 Yes 4647 2{tbl} Take 2 tablets by mouth every 6 (six) hours as needed for Pain (scale 4-6) or Pain (scale 7-10). Indication s: acute pain [facility] acetaminoph en-codeine (TYLENOL-CO DEINE #3) 300-30 mg tablet 02-07 00:00: 00 Yes 4647 2{tbl} Take 2 tablets by mouth every 6 (six) hours as needed for Pain (scale 4-6) or Pain (scale 7-10). Indication s: acute pain [facility] acetaminoph en-codeine (TYLENOL-CO DEINE #3) 300-30 mg tablet 02-07 00:00: 00 Yes 4647 2{tbl} Take 2 tablets by mouth every 6 (six) hours as needed for Pain (scale 4-6) or Pain (scale 7-10). Indication s: acute pain [facility] acetaminoph en-codeine (TYLENOL-CO DEINE #3) 300-30 mg tablet 02-07 00:00: 00 Yes 4647 2{tbl} Take 2 tablets by mouth every 6 (six) hours as needed for Pain (scale 4-6) or Pain (scale 7-10). Indication s: acute pain [facility] acetaminoph en-codeine (TYLENOL-CO DEINE #3) 300-30 mg tablet 02-07 00:00: 00 Yes 4647 2{tbl} Take 2 tablets by mouth every 6 (six) hours as needed for Pain (scale 4-6) or Pain (scale 7-10). Indication s: acute pain [facility] acetaminoph en-codeine (TYLENOL-CO DEINE #3) 300-30 mg tablet 02-07 00:00: 00 Yes 4647 2{tbl} Take 2 tablets by mouth every 6 (six) hours as needed for Pain (scale 4-6) or Pain (scale 7-10). Indication s: acute pain [facility] acetaminoph en-codeine (TYLENOL-CO DEINE #3) 300-30 mg tablet 02-07 00:00: 00 Yes 4647 2{tbl} Take 2 tablets by mouth every 6 (six) hours as needed for Pain (scale 4-6) or Pain (scale 7-10). Indication s: acute pain [facility] acetaminoph en-codeine (TYLENOL-CO DEINE #3) 300-30 mg tablet 02-07 00:00: 00 Yes 4647 2{tbl} Take 2 tablets by mouth every 6 (six) hours as needed for Pain (scale 4-6) or Pain (scale 7-10). Indication s: acute pain [facility] acetaminoph en-codeine (TYLENOL-CO DEINE #3) 300-30 mg tablet 02-07 00:00: 00 Yes 4647 2{tbl} Take 2 tablets by mouth every 6 (six) hours as needed for Pain (scale 4-6) or Pain (scale 7-10). Indication s: acute pain [facility] acetaminoph en-codeine (TYLENOL-CO DEINE #3) 300-30 mg tablet 2021-02-07 00:00: 00 Yes 4647 2{tbl} Take 2 tablets by mouth every 6 (six) hours as needed for Pain (scale 4-6) or Pain (scale 7-10). Indication s: acute pain [facility] acetaminoph en-codeine (TYLENOL-CO DEINE #3) 300-30 mg tablet 2021-02-07 00:00: 00 Yes 4647 2{tbl} Take 2 tablets by mouth every 6 (six) hours as needed for Pain (scale 4-6) or Pain (scale 7-10). Indication s: acute pain [facility] acetaminoph en-codeine (TYLENOL-CO DEINE #3) 300-30 mg tablet 02-07 00:00: 00 Yes 4647 2{tbl} Take 2 tablets by mouth every 6 (six) hours as needed for Pain (scale 4-6) or Pain (scale 7-10). Indication s: acute pain [facility] acetaminoph en-codeine (TYLENOL-CO DEINE #3) 300-30 mg tablet 02-07 00:00: 00 Yes 4647 2{tbl} Take 2 tablets by mouth every 6 (six) hours as needed for Pain (scale 4-6) or Pain (scale 7-10). Indication s: acute pain [facility] acetaminoph en-codeine (TYLENOL-CO DEINE #3) 300-30 mg tablet 02-07 00:00: 00 Yes 4647 2{tbl} Take 2 tablets by mouth every 6 (six) hours as needed for Pain (scale 4-6) or Pain (scale 7-10). Indication s: acute pain [facility] acetaminoph en-codeine (TYLENOL-CO DEINE #3) 300-30 mg tablet 02-07 00:00: 00 Yes 4647 2{tbl} Take 2 tablets by mouth every 6 (six) hours as needed for Pain (scale 4-6) or Pain (scale 7-10). Indication s: acute pain [facility] acetaminoph en-codeine (TYLENOL-CO DEINE #3) 300-30 mg tablet 02-07 00:00: 00 Yes 4647 2{tbl} Take 2 tablets by mouth every 6 (six) hours as needed for Pain (scale 4-6) or Pain (scale 7-10). Indication s: acute pain [facility] acetaminoph en-codeine (TYLENOL-CO DEINE #3) 300-30 mg tablet 02-07 00:00: 00 Yes 4647 2{tbl} Take 2 tablets by mouth every 6 (six) hours as needed for Pain (scale 4-6) or Pain (scale 7-10). Indication s: acute pain [facility] acetaminoph en-codeine (TYLENOL-CO DEINE #3) 300-30 mg tablet 02-07 00:00: 00 Yes 4647 2{tbl} Take 2 tablets by mouth every 6 (six) hours as needed for Pain (scale 4-6) or Pain (scale 7-10). Indication s: acute pain [facility] acetaminoph en-codeine (TYLENOL-CO DEINE #3) 300-30 mg tablet 02-07 00:00: 00 Yes 4647 2{tbl} Take 2 tablets by mouth every 6 (six) hours as needed for Pain (scale 4-6) or Pain (scale 7-10). Indication s: acute pain [facility] acetaminoph en-codeine (TYLENOL-CO DEINE #3) 300-30 mg tablet 02-07 00:00: 00 Yes 4647 2{tbl} Take 2 tablets by mouth every 6 (six) hours as needed for Pain (scale 4-6) or Pain (scale 7-10). Indication s: acute pain [facility] acetaminoph en-codeine (TYLENOL-CO DEINE #3) 300-30 mg tablet 02-07 00:00: 00 Yes 4647 2{tbl} Take 2 tablets by mouth every 6 (six) hours as needed for Pain (scale 4-6) or Pain (scale 7-10). Indication s: acute pain [facility] acetaminoph en-codeine (TYLENOL-CO DEINE #3) 300-30 mg tablet 02-07 00:00: 00 Yes 4647 2{tbl} Take 2 tablets by mouth every 6 (six) hours as needed for Pain (scale 4-6) or Pain (scale 7-10). Indication s: acute pain [facility] acetaminoph en-codeine (TYLENOL-CO DEINE #3) 300-30 mg tablet 2021-02-07 00:00: 00 Yes 4647 2{tbl} Take 2 tablets by mouth every 6 (six) hours as needed for Pain (scale 4-6) or Pain (scale 7-10). Indication s: acute pain [facility] acetaminoph en-codeine (TYLENOL-CO DEINE #3) 300-30 mg tablet 02-07 00:00: 00 Yes 4647 2{tbl} Take 2 tablets by mouth every 6 (six) hours as needed for Pain (scale 4-6) or Pain (scale 7-10). Indication s: acute pain [facility] acetaminoph en-codeine (TYLENOL-CO DEINE #3) 300-30 mg tablet 02-07 00:00: 00 Yes 4647 2{tbl} Take 2 tablets by mouth every 6 (six) hours as needed for Pain (scale 4-6) or Pain (scale 7-10). Indication s: acute pain [facility] acetaminoph en-codeine (TYLENOL-CO DEINE #3) 300-30 mg tablet 02-07 00:00: 00 Yes 4647 2{tbl} Take 2 tablets by mouth every 6 (six) hours as needed for Pain (scale 4-6) or Pain (scale 7-10). Indication s: acute pain [facility] acetaminoph en-codeine (TYLENOL-CO DEINE #3) 300-30 mg tablet 02-07 00:00: 00 Yes 4647 2{tbl} Take 2 tablets by mouth every 6 (six) hours as needed for Pain (scale 4-6) or Pain (scale 7-10). Indication s: acute pain [facility] acetaminoph en-codeine (TYLENOL-CO DEINE #3) 300-30 mg tablet 02-07 00:00: 00 Yes 4647 2{tbl} Take 2 tablets by mouth every 6 (six) hours as needed for Pain (scale 4-6) or Pain (scale 7-10). Indication s: acute pain [facility] acetaminoph en-codeine (TYLENOL-CO DEINE #3) 300-30 mg tablet 02-07 00:00: 00 Yes 4647 2{tbl} Take 2 tablets by mouth every 6 (six) hours as needed for Pain (scale 4-6) or Pain (scale 7-10). Indication s: acute pain [facility] acetaminoph en-codeine (TYLENOL-CO DEINE #3) 300-30 mg tablet 02-07 00:00: 00 Yes 4647 2{tbl} Take 2 tablets by mouth every 6 (six) hours as needed for Pain (scale 4-6) or Pain (scale 7-10). Indication s: acute pain [facility] acetaminoph en-codeine (TYLENOL-CO DEINE #3) 300-30 mg tablet 02-07 00:00: 00 Yes 4647 2{tbl} Take 2 tablets by mouth every 6 (six) hours as needed for Pain (scale 4-6) or Pain (scale 7-10). Indication s: acute pain [facility] acetaminoph en-codeine (TYLENOL-CO DEINE #3) 300-30 mg tablet 02-07 00:00: 00 Yes 4647 2{tbl} Take 2 tablets by mouth every 6 (six) hours as needed for Pain (scale 4-6) or Pain (scale 7-10). Indication s: acute pain [facility] acetaminoph en-codeine (TYLENOL-CO DEINE #3) 300-30 mg tablet 02-07 00:00: 00 Yes 4647 2{tbl} Take 2 tablets by mouth every 6 (six) hours as needed for Pain (scale 4-6) or Pain (scale 7-10). Indication s: acute pain [facility] acetaminoph en-codeine (TYLENOL-CO DEINE #3) 300-30 mg tablet 02-07 00:00: 00 Yes 4647 2{tbl} Take 2 tablets by mouth every 6 (six) hours as needed for Pain (scale 4-6) or Pain (scale 7-10). Indication s: acute pain [facility] acetaminoph en-codeine (TYLENOL-CO DEINE #3) 300-30 mg tablet 02-07 00:00: 00 Yes 4647 2{tbl} Take 2 tablets by mouth every 6 (six) hours as needed for Pain (scale 4-6) or Pain (scale 7-10). Indication s: acute pain [facility] acetaminoph en-codeine (TYLENOL-CO DEINE #3) 300-30 mg tablet 02-07 00:00: 00 Yes 4647 2{tbl} Take 2 tablets by mouth every 6 (six) hours as needed for Pain (scale 4-6) or Pain (scale 7-10). Indication s: acute pain [facility] acetaminoph en-codeine (TYLENOL-CO DEINE #3) 300-30 mg tablet 02-07 00:00: 00 Yes 4647 2{tbl} Take 2 tablets by mouth every 6 (six) hours as needed for Pain (scale 4-6) or Pain (scale 7-10). Indication s: acute pain [facility] acetaminoph en-codeine (TYLENOL-CO DEINE #3) 300-30 mg tablet 02-07 00:00: 00 Yes 4647 2{tbl} Take 2 tablets by mouth every 6 (six) hours as needed for Pain (scale 4-6) or Pain (scale 7-10). Indication s: acute pain [facility] acetaminoph en-codeine (TYLENOL-CO DEINE #3) 300-30 mg tablet 02-07 00:00: 00 Yes 4647 2{tbl} Take 2 tablets by mouth every 6 (six) hours as needed for Pain (scale 4-6) or Pain (scale 7-10). Indication s: acute pain [facility] acetaminoph en-codeine (TYLENOL-CO DEINE #3) 300-30 mg tablet 02-07 00:00: 00 Yes 4647 2{tbl} Take 2 tablets by mouth every 6 (six) hours as needed for Pain (scale 4-6) or Pain (scale 7-10). Indication s: acute pain [facility] acetaminoph en-codeine (TYLENOL-CO DEINE #3) 300-30 mg tablet 02-07 00:00: 00 Yes 4647 2{tbl} Take 2 tablets by mouth every 6 (six) hours as needed for Pain (scale 4-6) or Pain (scale 7-10). Indication s: acute pain [facility] acetaminoph en-codeine (TYLENOL-CO DEINE #3) 300-30 mg tablet 02-07 00:00: 00 Yes 4647 2{tbl} Take 2 tablets by mouth every 6 (six) hours as needed for Pain (scale 4-6) or Pain (scale 7-10). Indication s: acute pain [facility] acetaminoph en-codeine (TYLENOL-CO DEINE #3) 300-30 mg tablet 02-07 00:00: 00 Yes 4647 2{tbl} Take 2 tablets by mouth every 6 (six) hours as needed for Pain (scale 4-6) or Pain (scale 7-10). Indication s: acute pain [facility] acetaminoph en-codeine (TYLENOL-CO DEINE #3) 300-30 mg tablet 02-07 00:00: 00 Yes 4647 2{tbl} Take 2 tablets by mouth every 6 (six) hours as needed for Pain (scale 4-6) or Pain (scale 7-10). Indication s: acute pain [facility] acetaminoph en-codeine (TYLENOL-CO DEINE #3) 300-30 mg tablet 02-07 00:00: 00 Yes 4647 2{tbl} Take 2 tablets by mouth every 6 (six) hours as needed for Pain (scale 4-6) or Pain (scale 7-10). Indication s: acute pain [facility] acetaminoph en-codeine (TYLENOL-CO DEINE #3) 300-30 mg tablet 02-07 00:00: 00 Yes 4647 2{tbl} Take 2 tablets by mouth every 6 (six) hours as needed for Pain (scale 4-6) or Pain (scale 7-10). Indication s: acute pain [facility] acetaminoph en-codeine (TYLENOL-CO DEINE #3) 300-30 mg tablet 2021-02-07 00:00: 00 Yes 4647 2{tbl} Take 2 tablets by mouth every 6 (six) hours as needed for Pain (scale 4-6) or Pain (scale 7-10). Indication s: acute pain [facility] acetaminoph en-codeine (TYLENOL-CO DEINE #3) 300-30 mg tablet 02-07 00:00: 00 Yes 4647 2{tbl} Take 2 tablets by mouth every 6 (six) hours as needed for Pain (scale 4-6) or Pain (scale 7-10). Indication s: acute pain [facility] acetaminoph en-codeine (TYLENOL-CO DEINE #3) 300-30 mg tablet 02-07 00:00: 00 Yes 4647 2{tbl} Take 2 tablets by mouth every 6 (six) hours as needed for Pain (scale 4-6) or Pain (scale 7-10). Indication s: acute pain [facility] acetaminoph en-codeine (TYLENOL-CO DEINE #3) 300-30 mg tablet 02-07 00:00: 00 Yes 4647 2{tbl} Take 2 tablets by mouth every 6 (six) hours as needed for Pain (scale 4-6) or Pain (scale 7-10). Indication s: acute pain [facility] acetaminoph en-codeine (TYLENOL-CO DEINE #3) 300-30 mg tablet 02-07 00:00: 00 Yes 4647 2{tbl} Take 2 tablets by mouth every 6 (six) hours as needed for Pain (scale 4-6) or Pain (scale 7-10). Indication s: acute pain [facility] acetaminoph en-codeine (TYLENOL-CO DEINE #3) 300-30 mg tablet 02-07 00:00: 00 Yes 4647 2{tbl} Take 2 tablets by mouth every 6 (six) hours as needed for Pain (scale 4-6) or Pain (scale 7-10). Indication s: acute pain [facility] acetaminoph en-codeine (TYLENOL-CO DEINE #3) 300-30 mg tablet 2022-0 7-25 00:00: 00 Yes [id number] 2{tbl} Take 2 tablets by mouth every 6 (six) hours as needed for Pain (scale 4-6) or Pain (scale 7-10). Indication s: acute pain [facility] hydrOXYzine 25 mg tablet 0 12-27 00:00: 00 Yes 25mg Take 25 mg by mouth 2 (two) times daily as needed. [facility] hydrOXYzine 25 mg tablet 0 12-27 00:00: 00 Yes 25mg Take 25 mg by mouth 2 (two) times daily as needed. [facility] hydrOXYzine 25 mg tablet 0 12-27 00:00: 00 Yes 25mg Take 25 mg by mouth 2 (two) times daily as needed. [facility] tablet 0 12-27 00:00: 00 Yes 25mg Take 25 mg by mouth 2 (two) times daily as needed. [facility] hydr[facility] mg tablet 0 12-27 00:00: 00 Yes 25mg Take 25 mg by mouth 2 (two) times daily as needed. [facility] hydr[facility] mg tablet 0 12-27 00:00: 00 Yes 25mg Take 25 mg by mouth 2 (two) times daily as needed. [facility] hydrOXYzine 25 mg tablet 0 12-27 00:00: 00 Yes 25mg Take 25 mg by mouth 2 (two) times daily as needed. [facility] hydrOXYzine 25 mg tablet 2021-0 12-27 00:00: 00 Yes 25mg Take 25 mg by mouth 2 (two) times daily as needed. [facility] hydrOXYzine 25 mg tablet 2021-0 12-27 00:00: 00 Yes 25mg Take 25 mg by mouth 2 (two) times daily as needed. [facility] mg tablet 2021-0 12-27 00:00: 00 Yes 25mg Take 25 mg by mouth 2 (two) times daily as needed. [facility] hydr[facility] mg tablet 2021-0 12-27 00:00: 00 Yes 25mg Take 25 mg by mouth 2 (two) times daily as needed. [facility] hydr[facility] mg tablet 0 12-27 00:00: 00 Yes 25mg Take 25 mg by mouth 2 (two) times daily as needed. [facility] hydrOXYzine 25 mg tablet 0 12-27 00:00: 00 Yes 25mg Take 25 mg by mouth 2 (two) times daily as needed. [facility] mg tablet 0 12-27 00:00: 00 Yes 25mg Take 25 mg by mouth 2 (two) times daily as needed. [facility] hydrOXYzine 25 mg tablet 0 12-27 00:00: 00 Yes 25mg Take 25 mg by mouth 2 (two) times daily as needed. [facility] hydrOXYzine 25 mg tablet 0 12-27 00:00: 00 Yes 25mg Take 25 mg by mouth 2 (two) times daily as needed. [facility] hydrOXYzine 25 mg tablet 0 12-27 00:00: 00 Yes 25mg Take 25 mg by mouth 2 (two) times daily as needed. [facility] hydrOXYzine 25 mg tablet 0 12-27 00:00: 00 Yes 25mg Take 25 mg by mouth 2 (two) times daily as needed. [facility] hydrOXYzine 25 mg tablet 0 12-27 00:00: 00 Yes 25mg Take 25 mg by mouth 2 (two) times daily as needed. [facility] hydrOXYzine 25 mg tablet 0 12-27 00:00: 00 Yes 25mg Take 25 mg by mouth 2 (two) times daily as needed. [facility] hydrOXYzine 25 mg tablet 2021-0 12-27 00:00: 00 Yes 25mg Take 25 mg by mouth 2 (two) times daily as needed. [facility] hydrOXYzine 25 mg tablet 0 12-27 00:00: 00 Yes 25mg Take 25 mg by mouth 2 (two) times daily as needed. [facility] hydrOXYzine 25 mg tablet 0 12-27 00:00: 00 Yes 25mg Take 25 mg by mouth 2 (two) times daily as needed. [facility] mg tablet 2021-0 12-27 00:00: 00 Yes 25mg Take 25 mg by mouth 2 (two) times daily as needed. [facility] hydrOXYzine 25 mg tablet 2021-0 12-27 00:00: 00 Yes 25mg Take 25 mg by mouth 2 (two) times daily as needed. [facility] mg tablet 2021-0 12-27 00:00: 00 Yes 25mg Take 25 mg by mouth 2 (two) times daily as needed. [facility] hydrOXYzine 25 mg tablet 2021-0 12-27 00:00: 00 Yes 25mg Take 25 mg by mouth 2 (two) times daily as needed. [facility] hydrOXYzine 25 mg tablet 2021-0 12-27 00:00: 00 Yes 25mg Take 25 mg by mouth 2 (two) times daily as needed. [facility] hydrOXYzine 25 mg tablet 0 12-27 00:00: 00 Yes 25mg Take 25 mg by mouth 2 (two) times daily as needed. [facility] hydrOXYzine 25 mg tablet 0 12-27 00:00: 00 Yes 25mg Take 25 mg by mouth 2 (two) times daily as needed. [facility] hydrOXYzine 25 mg tablet 0 12-27 00:00: 00 Yes 25mg Take 25 mg by mouth 2 (two) times daily as needed. [facility] hydrOXYzine 25 mg tablet 2021-0 12-27 00:00: 00 Yes 25mg Take 25 mg by mouth 2 (two) times daily as needed. [facility] mg tablet 2-0 12-27 00:00: 00 Yes 25mg Take 25 mg by mouth 2 (two) times daily as needed. [facility] hydrOXYzine 25 mg tablet 2021-0 12-27 00:00: 00 Yes 25mg Take 25 mg by mouth 2 (two) times daily as needed. [facility] hydrOXYzine 25 mg tablet 2021-0 12-27 00:00: 00 Yes 25mg Take 25 mg by mouth 2 (two) times daily as needed. [facility] hydrOXYzine 25 mg tablet 0 12-27 00:00: 00 Yes 25mg Take 25 mg by mouth 2 (two) times daily as needed. [facility] hydrOXYzine 25 mg tablet 2021-0 12-27 00:00: 00 Yes 25mg Take 25 mg by mouth 2 (two) times daily as needed. [facility] hydrOXYzine 25 mg tablet 0 12-27 00:00: 00 Yes 25mg Take 25 mg by mouth 2 (two) times daily as needed. [facility] hydrOXYzine 25 mg tablet 0 12-27 00:00: 00 Yes 25mg Take 25 mg by mouth 2 (two) times daily as needed. [facility] hydrOXYzine 25 mg tablet 0 12-27 00:00: 00 Yes 25mg Take 25 mg by mouth 2 (two) times daily as needed. [facility] hydrOXYzine 25 mg tablet 0 12-27 00:00: 00 Yes 25mg Take 25 mg by mouth 2 (two) times daily as needed. [facility] hydrOXYzine 25 mg tablet 0 12-27 00:00: 00 Yes 25mg Take 25 mg by mouth 2 (two) times daily as needed. [facility] hydrOXYzine 25 mg tablet 0 12-27 00:00: 00 Yes 25mg Take 25 mg by mouth 2 (two) times daily as needed. [facility] hydrOXYzine 25 mg tablet 0 12-27 00:00: 00 Yes 25mg Take 25 mg by mouth 2 (two) times daily as needed. [facility] hydrOXYzine 25 mg tablet 2021-0 12-27 00:00: 00 Yes 25mg Take 25 mg by mouth 2 (two) times daily as needed. [facility] hydrOXYzine 25 mg tablet 0 12-27 00:00: 00 Yes 25mg Take 25 mg by mouth 2 (two) times daily as needed. [facility] hydrOXYzine 25 mg tablet 0 12-27 00:00: 00 Yes 25mg Take 25 mg by mouth 2 (two) times daily as needed. [facility] mg tablet 0 12-27 00:00: 00 Yes 25mg Take 25 mg by mouth 2 (two) times daily as needed. [facility] hydrOXYzine 25 mg tablet 0 12-27 00:00: 00 Yes 25mg Take 25 mg by mouth 2 (two) times daily as needed. [facility] mg tablet 2021-0 12-27 00:00: 00 Yes 25mg Take 25 mg by mouth 2 (two) times daily as needed. [facility] hydrOXYzine 25 mg tablet 0 12-27 00:00: 00 Yes 25mg Take 25 mg by mouth 2 (two) times daily as needed. [facility] hydrOXYzine 25 mg tablet 0 12-27 00:00: 00 Yes 25mg Take 25 mg by mouth 2 (two) times daily as needed. [facility] hydrOXYzine 25 mg tablet 0 12-27 00:00: 00 Yes 25mg Take 25 mg by mouth 2 (two) times daily as needed. [facility] hydrOXYzine 25 mg tablet 0 12-27 00:00: 00 Yes 25mg Take 25 mg by mouth 2 (two) times daily as needed. [facility] hydrOXYzine 25 mg tablet 0 12-27 00:00: 00 Yes 25mg Take 25 mg by mouth 2 (two) times daily as needed. [facility] hydrOXYzine 25 mg tablet 2021-0 12-27 00:00: 00 Yes 25mg Take 25 mg by mouth 2 (two) times daily as needed. [facility] hydr[facility] mg tablet 2021-0 12-27 00:00: 00 Yes 25mg Take 25 mg by mouth 2 (two) times daily as needed. [facility] hydrOXYzine 25 mg tablet 2021-0 12-27 00:00: 00 Yes 25mg Take 25 mg by mouth 2 (two) times daily as needed. [facility] hydr[facility] mg tablet 2021-0 12-27 00:00: 00 Yes 25mg Take 25 mg by mouth 2 (two) times daily as needed. [facility] hydrOX[facility] mg tablet 0 12-27 00:00: 00 Yes 25mg Take 25 mg by mouth 2 (two) times daily as needed. [facility] hydrOXYzine [facility] mg tablet 2021-0 12-27 00:00: 00 Yes 25mg Take 25 mg by mouth 2 (two) times daily as needed. [facility] hydrOX[facility] mg tablet 2021-0 12-27 00:00: 00 Yes 25mg Take 25 mg by mouth 2 (two) times daily as needed. [facility] hydrOXYzine 25 mg tablet 2021-0 12-27 00:00: 00 Yes 25mg Take 25 mg by mouth 2 (two) times daily as needed. [facility] hydrOXYzine 25 mg tablet 2021-0 12-27 00:00: 00 Yes 25mg Take 25 mg by mouth 2 (two) times daily as needed. [facility] hydrOXYzine 25 mg tablet 0 12-27 00:00: 00 Yes 25mg Take 25 mg by mouth 2 (two) times daily as needed. [facility] hydrOXYzine 25 mg tablet 0 12-27 00:00: 00 Yes 25mg Take 25 mg by mouth 2 (two) times daily as needed. [facility] hydrOXYzine 25 mg tablet 0 12-27 00:00: 00 Yes 25mg Take 25 mg by mouth 2 (two) times daily as needed. [facility] hydrOXYzine 25 mg tablet 2021-0 12-27 00:00: 00 Yes 25mg Take 25 mg by mouth 2 (two) times daily as needed. [facility] hydrOXYzine 25 mg tablet 2021-0 12-27 00:00: 00 Yes 25mg Take 25 mg by mouth 2 (two) times daily as needed. [facility] hydrOXYzine 25 mg tablet 2021-0 12-27 00:00: 00 Yes 25mg Take 25 mg by mouth 2 (two) times daily as needed. [facility] hydrOXYzine 25 mg tablet 2021-0 12-27 00:00: 00 Yes 25mg Take 25 mg by mouth 2 (two) times daily as needed. [facility] hydrOXYzine 25 mg tablet 2021-0 12-27 00:00: 00 Yes 25mg Take 25 mg by mouth 2 (two) times daily as needed. [facility] hydrOXYzine 25 mg tablet 2021-0 12-27 00:00: 00 Yes 25mg Take 25 mg by mouth 2 (two) times daily as needed. [facility] hydrOXYzine 25 mg tablet 2021-0 12-27 00:00: 00 Yes 25mg Take 25 mg by mouth 2 (two) times daily as needed. [facility] mg tablet 2021-0 12-27 00:00: 00 Yes 25mg Take 25 mg by mouth 2 (two) times daily as needed. [facility] hydr[facility] mg tablet 0 12-27 00:00: 00 Yes 25mg Take 25 mg by mouth 2 (two) times daily as needed. [facility] hydrOXYzine 25 mg tablet 2021-0 12-27 00:00: 00 Yes 25mg Take 25 mg by mouth 2 (two) times daily as needed. [facility] hydrOXYzine 25 mg tablet 0 12-27 00:00: 00 Yes 25mg Take 25 mg by mouth 2 (two) times daily as needed. [facility] hydrOXYzine 25 mg tablet 0 12-27 00:00: 00 Yes 25mg Take 25 mg by mouth 2 (two) times daily as needed. [facility] hydr[facility] mg tablet 2021-0 12-27 00:00: 00 Yes 25mg Take 25 mg by mouth 2 (two) times daily as needed. [facility] hydrOXYzine 25 mg tablet 2021-0 12-27 00:00: 00 Yes 25mg Take 25 mg by mouth 2 (two) times daily as needed. [facility] hydrOXYzine 25 mg tablet 2021-0 12-27 00:00: 00 Yes 25mg Take 25 mg by mouth 2 (two) times daily as needed. [facility] hydrOXYzine 25 mg tablet 0 12-27 00:00: 00 Yes 25mg Take 25 mg by mouth 2 (two) times daily as needed. [facility] hydrOXYzine 25 mg tablet 2021-0 12-27 00:00: 00 Yes 25mg Take 25 mg by mouth 2 (two) times daily as needed. [facility] mg tablet 2021-0 12-27 00:00: 00 Yes 25mg Take 25 mg by mouth 2 (two) times daily as needed. [facility] hydr[facility] mg tablet 2021-0 12-27 00:00: 00 Yes 25mg Take 25 mg by mouth 2 (two) times daily as needed. [facility] hydrOXYzine 25 mg tablet 2021-0 12-27 00:00: 00 Yes 25mg Take 25 mg by mouth 2 (two) times daily as needed. [facility] hydrOXYzine 25 mg tablet 2021-0 12-27 00:00: 00 Yes 25mg Take 25 mg by mouth 2 (two) times daily as needed. [facility] hydrOXYzine 25 mg tablet 2021-0 12-27 00:00: 00 Yes 25mg Take 25 mg by mouth 2 (two) times daily as needed. [facility] hydrOXYzine 25 mg tablet 2021-0 12-27 00:00: 00 Yes 25mg Take 25 mg by mouth 2 (two) times daily as needed. [facility] hydrOXYzine 25 mg tablet 2021-0 12-27 00:00: 00 Yes 25mg Take 25 mg by mouth 2 (two) times daily as needed. [facility] hydrOXYzine 25 mg tablet 2021-0 12-27 00:00: 00 Yes 25mg Take 25 mg by mouth 2 (two) times daily as needed. [facility] hydrOXYzine 25 mg tablet 2-0 12-27 00:00: 00 Yes 25mg Take 25 mg by mouth 2 (two) times daily as needed. [facility] hydrOXYzine 25 mg tablet 2-0 12-27 00:00: 00 Yes 25mg Take 25 mg by mouth 2 (two) times daily as needed. [facility] hydrOXYzine 25 mg tablet 2021-0 12-27 00:00: 00 Yes 25mg Take 25 mg by mouth 2 (two) times daily as needed. [facility] hydrOXYzine 25 mg tablet 2021-0 12-27 00:00: 00 Yes 25mg Take 25 mg by mouth 2 (two) times daily as needed. [facility] hydrOXYzine 25 mg tablet 2021-0 12-27 00:00: 00 Yes 25mg Take 25 mg by mouth 2 (two) times daily as needed. [facility] hydrOXYzine 25 mg tablet 2021-0 12-27 00:00: 00 Yes 25mg Take 25 mg by mouth 2 (two) times daily as needed. [facility] hydrOXYzine 25 mg tablet 2021-0 12-27 00:00: 00 Yes 25mg Take 25 mg by mouth 2 (two) times daily as needed. [facility] hydrOXYzine 25 mg tablet 2021-0 12-27 00:00: 00 Yes 25mg Take 25 mg by mouth 2 (two) times daily as needed. [facility] hydrOXYzine 25 mg tablet 2021-0 12-27 00:00: 00 Yes 25mg Take 25 mg by mouth 2 (two) times daily as needed. [facility] hydrOXYzine 25 mg tablet 2021-0 12-27 00:00: 00 Yes 25mg Take 25 mg by mouth 2 (two) times daily as needed. [facility] hydrOXYzine 25 mg tablet 2021-0 12-27 00:00: 00 Yes 25mg Take 25 mg by mouth 2 (two) times daily as needed. [facility] mg tablet 2021-0 12-27 00:00: 00 Yes 25mg Take 25 mg by mouth 2 (two) times daily as needed. [facility] mg tablet 2021-0 12-27 00:00: 00 Yes 25mg Take 25 mg by mouth 2 (two) times daily as needed. [facility] hydrOXYzine 25 mg tablet 2-0 12-27 00:00: 00 Yes 25mg Take 25 mg by mouth 2 (two) times daily as needed. [facility] hydrOXYzine 25 mg tablet 2021-0 12-27 00:00: 00 Yes 25mg Take 25 mg by mouth 2 (two) times daily as needed. [facility] hydrOXYzine 25 mg tablet 0 12-27 00:00: 00 Yes 25mg Take 25 mg by mouth 2 (two) times daily as needed. [facility] hydrOXYzine 25 mg tablet 2021-0 12-27 00:00: 00 Yes 25mg Take 25 mg by mouth 2 (two) times daily as needed. [facility] hydrOXYzine 25 mg tablet 0 12-27 00:00: 00 Yes 25mg Take 25 mg by mouth 2 (two) times daily as needed. [facility] hydrOXYzine 25 mg tablet 0 11-22 13:28: 35 11-22 00:00 :00 No 25mg Take 25 mg by mouth every 8 (eight) hours as needed for Anxiety. [facility] hydrOXYzine 25 mg tablet 2021-0 11-22 13:28: 35 11-22 00:00 :00 No 25mg Take 25 mg by mouth every 8 (eight) hours as needed for Anxiety. [facility] hydrOXYzine 25 mg tablet 0 11-22 13:28: 35 11-22 00:00 :00 No 25mg Take 25 mg by mouth every 8 (eight) hours as needed for Anxiety. [facility] hydrOXYzine 25 mg tablet 2021-0 11-22 13:28: 35 11-22 00:00 :00 No 25mg Take 25 mg by mouth every 8 (eight) hours as needed for Anxiety. [facility] hydrOXYzine 25 mg tablet 2021-0 11-22 13:28: 35 11-22 00:00 :00 No 25mg Take 25 mg by mouth every 8 (eight) hours as needed for Anxiety. [facility] hydrOXYzine 25 mg tablet 2021-0 11-22 13:28: 35 11-22 00:00 :00 No 25mg Take 25 mg by mouth every 8 (eight) hours as needed for Anxiety. [facility] gabapentin 300 mg capsule 2022-0 4-21 00:00: 00 Yes [id number] 300mg Take 1 capsule by mouth 3 (three) times daily. [facility] gabapentin 300 mg capsule 2022-0 4-21 00:00: 00 Yes [id number] 300mg Take 1 capsule by mouth 3 (three) times daily. [facility] gabapentin 300 mg capsule 2022-0 4-21 00:00: 00 Yes [id number] 300mg Take 1 capsule by mouth 3 (three) times daily. [facility] gabapentin 300 mg capsule 2022-0 4-21 00:00: 00 Yes [id number] 300mg Take 1 capsule by mouth 3 (three) times daily. [facility] gabapentin 300 mg capsule 2022-0 4-21 00:00: 00 Yes [id number] 300mg Take 1 capsule by mouth 3 (three) times daily. [facility] gabapentin 300 mg capsule 2022-0 4-21 00:00: 00 Yes [id number] 300mg Take 1 capsule by mouth 3 (three) times daily. [facility] gabapentin 300 mg capsule 2022-0 4-21 00:00: 00 Yes [id number] 300mg Take 1 capsule by mouth 3 (three) times daily. [facility] gabapentin 300 mg capsule 2022-0 4-21 00:00: 00 Yes [id number] 300mg Take 1 capsule by mouth 3 (three) times daily. [facility] gabapentin 300 mg capsule 2022-0 4-21 00:00: 00 Yes [id number] 300mg Take 1 capsule by mouth 3 (three) times daily. [facility] gabapentin 300 mg capsule 2022-0 4-21 00:00: 00 Yes [id number] 300mg Take 1 capsule by mouth 3 (three) times daily. [facility] gabapentin 300 mg capsule 2022-0 4-21 00:00: 00 Yes [id number] 300mg Take 1 capsule by mouth 3 (three) times daily. [facility] gabapentin 300 mg capsule 2022-0 4-21 00:00: 00 Yes [id number] 300mg Take 1 capsule by mouth 3 (three) times daily. [facility] gabapentin 300 mg capsule 2022-0 4-21 00:00: 00 Yes [id number] 300mg Take 1 capsule by mouth 3 (three) times daily. [facility] gabapentin 300 mg capsule 2022-0 4-21 00:00: 00 Yes [id number] 300mg Take 1 capsule by mouth 3 (three) times daily. [facility] gabapentin 300 mg capsule 2022-0 4-21 00:00: 00 Yes [id number] 300mg Take 1 capsule by mouth 3 (three) times daily. [facility] gabapentin 300 mg capsule 2-0 4-21 00:00: 00 Yes [id number] 300mg Take 1 capsule by mouth 3 (three) times daily. [facility] gabapentin 300 mg capsule 2-0 4-21 00:00: 00 Yes [id number] 300mg Take 1 capsule by mouth 3 (three) times daily. [facility] gabapentin 300 mg capsule 2-0 4-21 00:00: 00 Yes [id number] 300mg Take 1 capsule by mouth 3 (three) times daily. [facility] gabapentin 300 mg capsule 2-0 4-21 00:00: 00 Yes [id number] 300mg Take 1 capsule by mouth 3 (three) times daily. [facility] gabapentin 300 mg capsule 2-0 4-21 00:00: 00 Yes [id number] 300mg Take 1 capsule by mouth 3 (three) times daily. [facility] gabapentin 300 mg capsule 2-0 4-21 00:00: 00 Yes [id number] 300mg Take 1 capsule by mouth 3 (three) times daily. [facility] gabapentin 300 mg capsule 2-0 4-21 00:00: 00 Yes [id number] 300mg Take 1 capsule by mouth 3 (three) times daily. [facility] gabapentin 300 mg capsule 2022-0 4-21 00:00: 00 Yes [id number] 300mg Take 1 capsule by mouth 3 (three) times daily. [facility] gabapentin 300 mg capsule 2022-0 4-21 00:00: 00 Yes [id number] 300mg Take 1 capsule by mouth 3 (three) times daily. [facility] gabapentin 300 mg capsule 2022-0 4-21 00:00: 00 Yes [id number] 300mg Take 1 capsule by mouth 3 (three) times daily. [facility] gabapentin 300 mg capsule 2022-0 4-21 00:00: 00 Yes [id number] 300mg Take 1 capsule by mouth 3 (three) times daily. [facility] gabapentin 300 mg capsule 2022-0 4-21 00:00: 00 Yes [id number] 300mg Take 1 capsule by mouth 3 (three) times daily. [facility] gabapentin 300 mg capsule 2022-0 4-21 00:00: 00 Yes [id number] 300mg Take 1 capsule by mouth 3 (three) times daily. [facility] gabapentin 300 mg capsule 2022-0 4-21 00:00: 00 Yes [id number] 300mg Take 1 capsule by mouth 3 (three) times daily. [facility] gabapentin 300 mg capsule 2-0 4-21 00:00: 00 Yes [id number] 300mg Take 1 capsule by mouth 3 (three) times daily. [facility] gabapentin 300 mg capsule 2-0 4-21 00:00: 00 Yes [id number] 300mg Take 1 capsule by mouth 3 (three) times daily. [facility] gabapentin 300 mg capsule 2-0 4-21 00:00: 00 Yes [id number] 300mg Take 1 capsule by mouth 3 (three) times daily. [facility] gabapentin 300 mg capsule 2-0 4-21 00:00: 00 Yes [id number] 300mg Take 1 capsule by mouth 3 (three) times daily. [facility] gabapentin 300 mg capsule 2022-0 4-21 00:00: 00 Yes [id number] 300mg Take 1 capsule by mouth 3 (three) times daily. [facility] gabapentin 300 mg capsule 2022-0 4-21 00:00: 00 Yes [id number] 300mg Take 1 capsule by mouth 3 (three) times daily. [facility] gabapentin 300 mg capsule 2022-0 4-21 00:00: 00 Yes [id number] 300mg Take 1 capsule by mouth 3 (three) times daily. [facility] gabapentin 300 mg capsule 2022-0 4-21 00:00: 00 Yes [id number] 300mg Take 1 capsule by mouth 3 (three) times daily. [facility] gabapentin 300 mg capsule 2022-0 4-21 00:00: 00 Yes [id number] 300mg Take 1 capsule by mouth 3 (three) times daily. [facility] gabapentin 300 mg capsule 2022-0 4-21 00:00: 00 Yes [id number] 300mg Take 1 capsule by mouth 3 (three) times daily. [facility] gabapentin 300 mg capsule 2022-0 4-21 00:00: 00 Yes [id number] 300mg Take 1 capsule by mouth 3 (three) times daily. [facility] gabapentin 300 mg capsule 2022-0 4-21 00:00: 00 10-11 00:00 :00 No [id number] 300mg Take 1 capsule by mouth 3 (three) times daily. [facility] gabapentin 300 mg capsule 2022-0 4-21 00:00: 00 10-11 00:00 :00 No [id number] 300mg Take 1 capsule by mouth 3 (three) times daily. [facility] gabapentin 300 mg capsule 2022-0 4-21 00:00: 00 10-11 00:00 :00 No [id number] 300mg Take 1 capsule by mouth 3 (three) times daily. [facility] gabapentin 300 mg capsule 2022-0 4-21 00:00: 00 10-11 00:00 :00 No [id number] 300mg Take 1 capsule by mouth 3 (three) times daily. [facility] gabapentin 300 mg capsule 2022-0 4-21 00:00: 00 10-11 00:00 :00 No [id number] 300mg Take 1 capsule by mouth 3 (three) times daily. [facility] gabapentin 300 mg capsule 2022-0 4-21 00:00: 00 10-11 00:00 :00 No [id number] 300mg Take 1 capsule by mouth 3 (three) times daily. [facility] gabapentin 300 mg capsule 2022-0 4-21 00:00: 00 10-11 00:00 :00 No [id number] 300mg Take 1 capsule by mouth 3 (three) times daily. [facility] adalimumab (HUMIRA,CF, PEN) 40 mg/0.4 mL injection 0 4-11 00:00: 00 03-07 00:00 :00 No [id number] 40mg inject 1 Pen under the skin every 14 (fourteen) days. [facility] adalimumab (HUMIRA,CF, PEN) 40 mg/0.4 mL injection 4-11 00:00: 00 03-07 00:00 :00 No [id number] 40mg inject 1 Pen under the skin every 14 (fourteen) days. [facility] adalimumab (HUMIRA,CF, PEN) 40 mg/0.4 mL injection 4-11 00:00: 00 03-07 00:00 :00 No [id number] 40mg inject 1 Pen under the skin every 14 (fourteen) days. [facility] adalimumab (HUMIRA,CF, PEN) 40 mg/0.4 mL injection 4-11 00:00: 00 03-07 00:00 :00 No [id number] 40mg inject 1 Pen under the skin every 14 (fourteen) days. [facility] adalimumab (HUMIRA,CF, PEN) 40 mg/0.4 mL injection 4-11 00:00: 00 03-07 00:00 :00 No [id number] 40mg inject 1 Pen under the skin every 14 (fourteen) days. [facility] gabapentin 300 mg capsule 3-22 00:00: 00 11-04 00:00 :00 No [id number] 300mg Take 1 capsule by mouth 3 (three) times daily for 30 days. [facility] gabapentin 300 mg capsule 3-22 00:00: 00 11-04 00:00 :00 No [id number] 300mg Take 1 capsule by mouth 3 (three) times daily for 30 days. [facility] Lancets (ACCU-CHEK SOFTCLIX LANCETS) [facility] [place] 00:00: 00 Yes [id number] Use as directed to check blood sugar once daily E11.9 [facility] Lancets (ACCU-CHEK SOFTCLIX LANCETS) [facility] [place] 2-15 00:00: 00 Yes [id number] Use as directed to check blood sugar once daily E11.9 [facility] Lancets (ACCU-CHEK SOFTCLIX LANCETS) [facility] [place]-0 2-15 00:00: 00 Yes [id number] Use as directed to check blood sugar once daily E11.9 [facility] Lancets (ACCU-CHEK SOFTCLIX LANCETS) [facility] [place] 2-15 00:00: 00 Yes [id number] Use as directed to check blood sugar once daily E11.9 [facility] Lancets (ACCU-CHEK SOFTCLIX LANCETS) [facility] [place] 2-15 00:00: 00 Yes [id number] Use as directed to check blood sugar once daily E11.9 [facility] Lancets (ACCU-CHEK SOFTCLIX LANCETS) [facility] [place] 2-15 00:00: 00 Yes [id number] Use as directed to check blood sugar once daily E11.9 [facility] Lancets (ACCU-CHEK SOFTCLIX LANCETS) [facility] [place] 2-15 00:00: 00 Yes [id number] Use as directed to check blood sugar once daily E11.9 [facility] Lancets (ACCU-CHEK SOFTCLIX LANCETS) [facility] [place] 2-15 00:00: 00 Yes [id number] Use as directed to check blood sugar once daily E11.9 [facility] Lancets (ACCU-CHEK SOFTCLIX LANCETS) [facility] [place] 2-15 00:00: 00 Yes [id number] Use as directed to check blood sugar once daily E11.9 [facility] Lancets (ACCU-CHEK SOFTCLIX LANCETS) [facility] [place] 2-15 00:00: 00 Yes [id number] Use as directed to check blood sugar once daily E11.9 [facility] Lancets (ACCU-CHEK SOFTCLIX LANCETS) [facility] [place] 2-15 00:00: 00 Yes [id number] Use as directed to check blood sugar once daily E11.9 [facility] Lancets (ACCU-CHEK SOFTCLIX LANCETS) [facility] [place] 2-15 00:00: 00 Yes [id number] Use as directed to check blood sugar once daily E11.9 [facility] Lancets (ACCU-CHEK SOFTCLIX LANCETS) [facility] [place] 2-15 00:00: 00 Yes [id number] Use as directed to check blood sugar once daily E11.9 [facility] Lancets (ACCU-CHEK SOFTCLIX LANCETS) [facility] [place] 2-15 00:00: 00 Yes [id number] Use as directed to check blood sugar once daily E11.9 [facility] Lancets (ACCU-CHEK SOFTCLIX LANCETS) [facility] [place] 2-15 00:00: 00 Yes [id number] Use as directed to check blood sugar once daily E11.9 [facility] Lancets (ACCU-CHEK SOFTCLIX LANCETS) [facility] [place] 2-15 00:00: 00 Yes [id number] Use as directed to check blood sugar once daily E11.9 [facility] Lancets (ACCU-CHEK SOFTCLIX LANCETS) [facility] [place] 2-15 00:00: 00 Yes [id number] Use as directed to check blood sugar once daily E11.9 [facility] Lancets (ACCU-CHEK SOFTCLIX LANCETS) [facility] [place] 2-15 00:00: 00 Yes [id number] Use as directed to check blood sugar once daily E11.9 [facility] Lancets (ACCU-CHEK SOFTCLIX LANCETS) [facility] [place] 2-15 00:00: 00 Yes [id number] Use as directed to check blood sugar once daily E11.9 [facility] Lancets (ACCU-CHEK SOFTCLIX LANCETS) [facility] [place] 2-15 00:00: 00 Yes [id number] Use as directed to check blood sugar once daily E11.9 [facility] Lancets (ACCU-CHEK SOFTCLIX LANCETS) [facility] [place] 2-15 00:00: 00 Yes [id number] Use as directed to check blood sugar once daily E11.9 [facility] Lancets (ACCU-CHEK SOFTCLIX LANCETS) [facility] [place] 2-15 00:00: 00 Yes [id number] Use as directed to check blood sugar once daily E11.9 [facility] Lancets (ACCU-CHEK SOFTCLIX LANCETS) [facility] [place] 2-15 00:00: 00 Yes [id number] Use as directed to check blood sugar once daily E11.9 [facility] Lancets (ACCU-CHEK SOFTCLIX LANCETS) [facility] [place] 2-15 00:00: 00 Yes [id number] Use as directed to check blood sugar once daily E11.9 [facility] Lancets (ACCU-CHEK SOFTCLIX LANCETS) [facility] [place] 2-15 00:00: 00 Yes [id number] Use as directed to check blood sugar once daily E11.9 [facility] Lancets (ACCU-CHEK SOFTCLIX LANCETS) [facility] [place] 2-15 00:00: 00 Yes [id number] Use as directed to check blood sugar once daily E11.9 [facility] Lancets (ACCU-CHEK SOFTCLIX LANCETS) [facility] [place] 2-15 00:00: 00 Yes [id number] Use as directed to check blood sugar once daily E11.9 [facility] Lancets (ACCU-CHEK SOFTCLIX LANCETS) [facility] [place] 2-15 00:00: 00 Yes [id number] Use as directed to check blood sugar once daily E11.9 [facility] Lancets (ACCU-CHEK SOFTCLIX LANCETS) [facility] [place] 2-15 00:00: 00 Yes [id number] Use as directed to check blood sugar once daily E11.9 [facility] Lancets (ACCU-CHEK SOFTCLIX LANCETS) [facility] [place]-0 2-15 00:00: 00 Yes [id number] Use as directed to check blood sugar once daily E11.9 [facility] Lancets (ACCU-CHEK SOFTCLIX LANCETS) [facility] [place] 2-15 00:00: 00 Yes [id number] Use as directed to check blood sugar once daily E11.9 [facility] Lancets (ACCU-CHEK SOFTCLIX LANCETS) [facility] [place]-0 2-15 00:00: 00 Yes [id number] Use as directed to check blood sugar once daily E11.9 [facility] Lancets (ACCU-CHEK SOFTCLIX LANCETS) [facility] [place] 2-15 00:00: 00 Yes [id number] Use as directed to check blood sugar once daily E11.9 [facility] Lancets (ACCU-CHEK SOFTCLIX LANCETS) [facility] [place] 2-15 00:00: 00 Yes [id number] Use as directed to check blood sugar once daily E11.9 [facility] Lancets (ACCU-CHEK SOFTCLIX LANCETS) [facility] [place] 2-15 00:00: 00 Yes [id number] Use as directed to check blood sugar once daily E11.9 [facility] Lancets (ACCU-CHEK SOFTCLIX LANCETS) [facility] [place] 2-15 00:00: 00 Yes [id number] Use as directed to check blood sugar once daily E11.9 [facility] Lancets (ACCU-CHEK SOFTCLIX LANCETS) [facility] [place] 2-15 00:00: 00 Yes [id number] Use as directed to check blood sugar once daily E11.9 [facility] Lancets (ACCU-CHEK SOFTCLIX LANCETS) [facility] [place] 2-15 00:00: 00 Yes [id number] Use as directed to check blood sugar once daily E11.9 [facility] Lancets (ACCU-CHEK SOFTCLIX LANCETS) [facility] [place]-0 2-15 00:00: 00 Yes [id number] Use as directed to check blood sugar once daily E11.9 [facility] Lancets (ACCU-CHEK SOFTCLIX LANCETS) [facility] [place] 0 2-15 00:00: 00 Yes [id number] Use as directed to check blood sugar once daily E11.9 [facility] Lancets (ACCU-CHEK SOFTCLIX LANCETS) [facility] [place] 2-15 00:00: 00 Yes [id number] Use as directed to check blood sugar once daily E11.9 [facility] Lancets (ACCU-CHEK SOFTCLIX LANCETS) [facility] [place] 2-15 00:00: 00 Yes [id number] Use as directed to check blood sugar once daily E11.9 [facility] Lancets (ACCU-CHEK SOFTCLIX LANCETS) [facility] [place] 0 2-15 00:00: 00 Yes [id number] Use as directed to check blood sugar once daily E11.9 [facility] Lancets (ACCU-CHEK SOFTCLIX LANCETS) [facility] [place] 0 2-15 00:00: 00 Yes [id number] Use as directed to check blood sugar once daily E11.9 [facility] Lancets (ACCU-CHEK SOFTCLIX LANCETS) [facility] [place] 0 2-15 00:00: 00 Yes [id number] Use as directed to check blood sugar once daily E11.9 [facility] Lancets (ACCU-CHEK SOFTCLIX LANCETS) [facility] [place] 0 2-15 00:00: 00 Yes [id number] Use as directed to check blood sugar once daily E11.9 [facility] Lancets (ACCU-CHEK SOFTCLIX LANCETS) [facility] [place] 0 2-15 00:00: 00 Yes [id number] Use as directed to check blood sugar once daily E11.9 [facility] Lancets (ACCU-CHEK SOFTCLIX LANCETS) [facility] [place] 0 2-15 00:00: 00 Yes [id number] Use as directed to check blood sugar once daily E11.9 [facility] Lancets (ACCU-CHEK SOFTCLIX LANCETS) [facility] [place] 0 2-15 00:00: 00 Yes [id number] Use as directed to check blood sugar once daily E11.9 [facility] Lancets (ACCU-CHEK SOFTCLIX LANCETS) [facility] [place]-0 2-15 00:00: 00 Yes [id number] Use as directed to check blood sugar once daily E11.9 [facility] Lancets (ACCU-CHEK SOFTCLIX LANCETS) [facility] [place]-0 2-15 00:00: 00 Yes [id number] Use as directed to check blood sugar once daily E11.9 [facility] Lancets (ACCU-CHEK SOFTCLIX LANCETS) [facility] [place] 0 2-15 00:00: 00 Yes [id number] Use as directed to check blood sugar once daily E11.9 [facility] Lancets (ACCU-CHEK SOFTCLIX LANCETS) [facility] [place] 2-15 00:00: 00 Yes [id number] Use as directed to check blood sugar once daily E11.9 [facility] Lancets (ACCU-CHEK SOFTCLIX LANCETS) [facility] [place] 0 2-15 00:00: 00 Yes [id number] Use as directed to check blood sugar once daily E11.9 [facility] Lancets (ACCU-CHEK SOFTCLIX LANCETS) [facility] [place] 0 2-15 00:00: 00 Yes [id number] Use as directed to check blood sugar once daily E11.9 [facility] Lancets (ACCU-CHEK SOFTCLIX LANCETS) [facility] [place] 0 2-15 00:00: 00 Yes [id number] Use as directed to check blood sugar once daily E11.9 [facility] Lancets (ACCU-CHEK SOFTCLIX LANCETS) [facility] [place] 0 2-15 00:00: 00 Yes [id number] Use as directed to check blood sugar once daily E11.9 [facility] Lancets (ACCU-CHEK SOFTCLIX LANCETS) [facility] [place] 0 2-15 00:00: 00 Yes [id number] Use as directed to check blood sugar once daily E11.9 [facility] Lancets (ACCU-CHEK SOFTCLIX LANCETS) [facility] [place]-0 2-15 00:00: 00 Yes [id number] Use as directed to check blood sugar once daily E11.9 [facility] Lancets (ACCU-CHEK SOFTCLIX LANCETS) [facility] [place] 0 2-15 00:00: 00 Yes [id number] Use as directed to check blood sugar once daily E11.9 [facility] Lancets (ACCU-CHEK SOFTCLIX LANCETS) [facility] [place] 0 2-15 00:00: 00 Yes [id number] Use as directed to check blood sugar once daily E11.9 [facility] Lancets (ACCU-CHEK SOFTCLIX LANCETS) [facility] [place] 0 2-15 00:00: 00 Yes [id number] Use as directed to check blood sugar once daily E11.9 [facility] Lancets (ACCU-CHEK SOFTCLIX LANCETS) [facility] [place] 0 2-15 00:00: 00 Yes [id number] Use as directed to check blood sugar once daily E11.9 [facility] Lancets (ACCU-CHEK SOFTCLIX LANCETS) [facility] [place] 0 2-15 00:00: 00 Yes [id number] Use as directed to check blood sugar once daily E11.9 [facility] Lancets (ACCU-CHEK SOFTCLIX LANCETS) [facility] [place] 0 2-15 00:00: 00 Yes [id number] Use as directed to check blood sugar once daily E11.9 [facility] Lancets (ACCU-CHEK SOFTCLIX LANCETS) [facility] [place] 0 2-15 00:00: 00 Yes [id number] Use as directed to check blood sugar once daily E11.9 [facility] Lancets (ACCU-CHEK SOFTCLIX LANCETS) [facility] [place] 0 2-15 00:00: 00 Yes [id number] Use as directed to check blood sugar once daily E11.9 [facility] Lancets (ACCU-CHEK SOFTCLIX LANCETS) [facility] [place] 0 2-15 00:00: 00 Yes [id number] Use as directed to check blood sugar once daily E11.9 [facility] Lancets (ACCU-CHEK SOFTCLIX LANCETS) [facility] [place] 0 2-15 00:00: 00 Yes [id number] Use as directed to check blood sugar once daily E11.9 [facility] Lancets (ACCU-CHEK SOFTCLIX LANCETS) [facility] [place] 0 2-15 00:00: 00 Yes [id number] Use as directed to check blood sugar once daily E11.9 [facility] Lancets (ACCU-CHEK SOFTCLIX LANCETS) [facility] [place] 0 2-15 00:00: 00 Yes [id number] Use as directed to check blood sugar once daily E11.9 [facility] Lancets (ACCU-CHEK SOFTCLIX LANCETS) [facility] [place] 2-15 00:00: 00 Yes [id number] Use as directed to check blood sugar once daily E11.9 [facility] Lancets (ACCU-CHEK SOFTCLIX LANCETS) [facility] [place] 0 2-15 00:00: 00 Yes [id number] Use as directed to check blood sugar once daily E11.9 [facility] Lancets (ACCU-CHEK SOFTCLIX LANCETS) [facility] [place] 0 2-15 00:00: 00 Yes [id number] Use as directed to check blood sugar once daily E11.9 [facility] Lancets (ACCU-CHEK SOFTCLIX LANCETS) [facility] [place] 0 2-15 00:00: 00 Yes [id number] Use as directed to check blood sugar once daily E11.9 [facility] Lancets (ACCU-CHEK SOFTCLIX LANCETS) [facility] [place] 0 2-15 00:00: 00 Yes [id number] Use as directed to check blood sugar once daily E11.9 [facility] Lancets (ACCU-CHEK SOFTCLIX LANCETS) [facility] [place] 0 2-15 00:00: 00 Yes [id number] Use as directed to check blood sugar once daily E11.9 [facility] Lancets (ACCU-CHEK SOFTCLIX LANCETS) [facility] [place] 0 2-15 00:00: 00 Yes [id number] Use as directed to check blood sugar once daily E11.9 [facility] Lancets (ACCU-CHEK SOFTCLIX LANCETS) [facility] [place] 2021-0 2-15 00:00: 00 Yes [id number] Use as directed to check blood sugar once daily E11.9 [facility] Lancets (ACCU-CHEK SOFTCLIX LANCETS) [facility] [place] 2021-0 2-15 00:00: 00 Yes [id number] Use as directed to check blood sugar once daily E11.9 [facility] Lancets (ACCU-CHEK SOFTCLIX LANCETS) [facility] [place] 0 2-15 00:00: 00 Yes [id number] Use as directed to check blood sugar once daily E11.9 [facility] Lancets (ACCU-CHEK SOFTCLIX LANCETS) [facility] [place] 0 2-15 00:00: 00 Yes [id number] Use as directed to check blood sugar once daily E11.9 [facility] Lancets (ACCU-CHEK SOFTCLIX LANCETS) [facility] [place] 0 2-15 00:00: 00 Yes [id number] Use as directed to check blood sugar once daily E11.9 [facility] Lancets (ACCU-CHEK SOFTCLIX LANCETS) [facility] [place] 0 2-15 00:00: 00 Yes [id number] Use as directed to check blood sugar once daily E11.9 [facility] Lancets (ACCU-CHEK SOFTCLIX LANCETS) [facility] [place] 2021-0 2-15 00:00: 00 Yes [id number] Use as directed to check blood sugar once daily E11.9 [facility] Lancets (ACCU-CHEK SOFTCLIX LANCETS) [facility] [place] 0 2-15 00:00: 00 Yes [id number] Use as directed to check blood sugar once daily E11.9 [facility] Lancets (ACCU-CHEK SOFTCLIX LANCETS) [facility] [place] 0 2-15 00:00: 00 Yes [id number] Use as directed to check blood sugar once daily E11.9 [facility] Lancets (ACCU-CHEK SOFTCLIX LANCETS) [facility] [place] 0 2-15 00:00: 00 Yes [id number] Use as directed to check blood sugar once daily E11.9 [facility] Lancets (ACCU-CHEK SOFTCLIX LANCETS) [facility] [place] 0 2-15 00:00: 00 Yes [id number] Use as directed to check blood sugar once daily E11.9 [facility] Lancets (ACCU-CHEK SOFTCLIX LANCETS) [facility] [place] 0 2-15 00:00: 00 Yes [id number] Use as directed to check blood sugar once daily E11.9 [facility] Lancets (ACCU-CHEK SOFTCLIX LANCETS) [facility] [place] 0 2-15 00:00: 00 Yes [id number] Use as directed to check blood sugar once daily E11.9 [facility] Lancets (ACCU-CHEK SOFTCLIX LANCETS) [facility] [place] 0 2-15 00:00: 00 Yes [id number] Use as directed to check blood sugar once daily E11.9 [facility] Lancets (ACCU-CHEK SOFTCLIX LANCETS) [facility] [place] 0 2-15 00:00: 00 Yes [id number] Use as directed to check blood sugar once daily E11.9 [facility] Lancets (ACCU-CHEK SOFTCLIX LANCETS) [facility] [place] 0 2-15 00:00: 00 Yes [id number] Use as directed to check blood sugar once daily E11.9 [facility] Lancets (ACCU-CHEK SOFTCLIX LANCETS) [facility] [place] 0 2-15 00:00: 00 Yes [id number] Use as directed to check blood sugar once daily E11.9 [facility] Lancets (ACCU-CHEK SOFTCLIX LANCETS) [facility] [place] 0 2-15 00:00: 00 Yes [id number] Use as directed to check blood sugar once daily E11.9 [facility] Lancets (ACCU-CHEK SOFTCLIX LANCETS) [facility] [place] 0 2-15 00:00: 00 Yes [id number] Use as directed to check blood sugar once daily E11.9 [facility] Lancets (ACCU-CHEK SOFTCLIX LANCETS) [facility] [place] 0 2-15 00:00: 00 Yes [id number] Use as directed to check blood sugar once daily E11.9 [facility] Lancets (ACCU-CHEK SOFTCLIX LANCETS) [facility] [place] 0 2-15 00:00: 00 Yes [id number] Use as directed to check blood sugar once daily E11.9 [facility] Lancets (ACCU-CHEK SOFTCLIX LANCETS) [facility] [place] 0 2-15 00:00: 00 Yes [id number] Use as directed to check blood sugar once daily E11.9 [facility] Lancets (ACCU-CHEK SOFTCLIX LANCETS) [facility] [place] 0 2-15 00:00: 00 Yes [id number] Use as directed to check blood sugar once daily E11.9 [facility] Lancets (ACCU-CHEK SOFTCLIX LANCETS) [facility] [place] 0 2-15 00:00: 00 Yes [id number] Use as directed to check blood sugar once daily E11.9 [facility] Lancets (ACCU-CHEK SOFTCLIX LANCETS) [facility] [place] 0 2-15 00:00: 00 Yes [id number] Use as directed to check blood sugar once daily E11.9 [facility] Lancets (ACCU-CHEK SOFTCLIX LANCETS) [facility] [place] 0 2-15 00:00: 00 Yes [id number] Use as directed to check blood sugar once daily E11.9 [facility] Lancets (ACCU-CHEK SOFTCLIX LANCETS) [facility] [place] 0 2-15 00:00: 00 Yes [id number] Use as directed to check blood sugar once daily E11.9 [facility] Lancets (ACCU-CHEK SOFTCLIX LANCETS) [facility] [place] 0 2-15 00:00: 00 Yes [id number] Use as directed to check blood sugar once daily E11.9 [facility] Lancets (ACCU-CHEK SOFTCLIX LANCETS) [facility] [place] 2021-0 2-15 00:00: 00 Yes [id number] Use as directed to check blood sugar once daily E11.9 [facility] Lancets (ACCU-CHEK SOFTCLIX LANCETS) [facility] [place] 0 2-15 00:00: 00 Yes [id number] Use as directed to check blood sugar once daily E11.9 [facility] Lancets (ACCU-CHEK SOFTCLIX LANCETS) [facility] [place] 2021-0 2-15 00:00: 00 Yes [id number] Use as directed to check blood sugar once daily E11.9 [facility] Lancets (ACCU-CHEK SOFTCLIX LANCETS) [facility] [place] 0 2-15 00:00: 00 Yes [id number] Use as directed to check blood sugar once daily E11.9 [facility] Lancets (ACCU-CHEK SOFTCLIX LANCETS) [facility] [place] 0 2-15 00:00: 00 Yes [id number] Use as directed to check blood sugar once daily E11.9 [facility] Lancets (ACCU-CHEK SOFTCLIX LANCETS) [facility] [place] 0 2-15 00:00: 00 Yes [id number] Use as directed to check blood sugar once daily E11.9 [facility] Lancets (ACCU-CHEK SOFTCLIX LANCETS) [facility] [place] 0 2-15 00:00: 00 Yes [id number] Use as directed to check blood sugar once daily E11.9 [facility] Lancets (ACCU-CHEK SOFTCLIX LANCETS) [facility] [place] 0 2-15 00:00: 00 Yes [id number] Use as directed to check blood sugar once daily E11.9 [facility] Lancets (ACCU-CHEK SOFTCLIX LANCETS) [facility] [place] 0 2-15 00:00: 00 Yes [id number] Use as directed to check blood sugar once daily E11.9 [facility] Lancets (ACCU-CHEK SOFTCLIX LANCETS) [facility] [place] 0 2-15 00:00: 00 Yes [id number] Use as directed to check blood sugar once daily E11.9 [facility] Lancets (ACCU-CHEK SOFTCLIX LANCETS) [facility] [place] 2-15 00:00: 00 Yes [id number] Use as directed to check blood sugar once daily E11.9 [facility] Lancets (ACCU-CHEK SOFTCLIX LANCETS) [facility] [place] [facility] [place] [facility]-15 00:00: 00 Yes [id number] Use as directed to check blood sugar once daily E11.9 [facility] Lancets (ACCU-CHEK SOFTCLIX LANCETS) [facility] [place] 00:00: 00 Yes [id number] Use as directed to check blood sugar once daily E11.9 [facility] blood sugar diagnostic (ACCU-CHEK GUIDE TEST STRIPS) strip 2-15 00:00: 00 02-27 00:00 :00 No [id number] Use as directed to check blood sugar once daily E11.9 [facility] blood sugar diagnostic (ACCU-CHEK GUIDE TEST STRIPS) strip 0 2-15 00:00: 00 02-27 00:00 :00 No [id number] Use as directed to check blood sugar once daily E11.9 [facility] blood sugar diagnostic (ACCU-CHEK GUIDE TEST STRIPS) strip 0 2-15 00:00: 00 02-27 00:00 :00 No [id number] Use as directed to check blood sugar once daily E11.9 [facility] blood sugar diagnostic (ACCU-CHEK GUIDE TEST STRIPS) strip 0 2-15 00:00: 00 02-27 00:00 :00 No [id number] Use as directed to check blood sugar once daily E11.9 [facility] blood sugar diagnostic (ACCU-CHEK GUIDE TEST STRIPS) strip 0 2-15 00:00: 00 02-27 00:00 :00 No [id number] Use as directed to check blood sugar once daily E11.9 [facility] blood sugar diagnostic (ACCU-CHEK GUIDE TEST STRIPS) strip 0 2-15 00:00: 00 02-27 00:00 :00 No [id number] Use as directed to check blood sugar once daily E11.9 [facility] blood sugar diagnostic (ACCU-CHEK GUIDE TEST STRIPS) strip 0 2-15 00:00: 00 08-14 00:00 :00 No [id number] Use as directed to check blood sugar once daily E11.9 [facility] metformin ER 500 mg 24 hr tablet 2021-0 2-08 00:00: 00 Yes [id number] 1000mg Take 2 tablets by mouth daily with breakfast. [facility] metformin ER 500 mg 24 hr tablet 2021-0 2-08 00:00: 00 Yes [id number] 1000mg Take 2 tablets by mouth daily with breakfast. [facility] metformin ER 500 mg 24 hr tablet 2021-0 2-08 00:00: 00 Yes [id number] 1000mg Take 2 tablets by mouth daily with breakfast. [facility] metformin ER 500 mg 24 hr tablet 2021-0 2-08 00:00: 00 Yes [id number] 1000mg Take 2 tablets by mouth daily with breakfast. [facility] metformin ER 500 mg 24 hr tablet 2021-0 2-08 00:00: 00 Yes [id number] 1000mg Take 2 tablets by mouth daily with breakfast. [facility] metformin ER 500 mg 24 hr tablet 2021-0 2-08 00:00: 00 Yes [id number] 1000mg Take 2 tablets by mouth daily with breakfast. [facility] metformin ER 500 mg 24 hr tablet 2021-0 2-08 00:00: 00 Yes [id number] 1000mg Take 2 tablets by mouth daily with breakfast. [facility] metformin ER 500 mg 24 hr tablet 2021-0 2-08 00:00: 00 Yes [id number] 1000mg Take 2 tablets by mouth daily with breakfast. [facility] metformin ER 500 mg 24 hr tablet 2021-0 2-08 00:00: 00 Yes [id number] 1000mg Take 2 tablets by mouth daily with breakfast. [facility] metformin ER 500 mg 24 hr tablet 2021-0 2-08 00:00: 00 Yes [id number] 1000mg Take 2 tablets by mouth daily with breakfast. [facility] metformin ER 500 mg 24 hr tablet 2022-0 2-08 00:00: 00 Yes [id number] 1000mg Take 2 tablets by mouth daily with breakfast. [facility] metformin ER 500 mg 24 hr tablet 2021-0 2-08 00:00: 00 Yes [id number] 1000mg Take 2 tablets by mouth daily with breakfast. [facility] metformin ER 500 mg 24 hr tablet 2-0 2-08 00:00: 00 Yes [id number] 1000mg Take 2 tablets by mouth daily with breakfast. [facility] metformin ER 500 mg 24 hr tablet 2021-0 2-08 00:00: 00 Yes [id number] 1000mg Take 2 tablets by mouth daily with breakfast. [facility] metformin ER 500 mg 24 hr tablet 2021-0 2-08 00:00: 00 Yes [id number] 1000mg Take 2 tablets by mouth daily with breakfast. [facility] metformin ER 500 mg 24 hr tablet 2-0 2-08 00:00: 00 Yes [id number] 1000mg Take 2 tablets by mouth daily with breakfast. [facility] metformin ER 500 mg 24 hr tablet 2021-0 2-08 00:00: 00 Yes [id number] 1000mg Take 2 tablets by mouth daily with breakfast. [facility] metformin ER 500 mg 24 hr tablet 2021-0 2-08 00:00: 00 Yes [id number] 1000mg Take 2 tablets by mouth daily with breakfast. [facility] metformin ER 500 mg 24 hr tablet 2-0 2-08 00:00: 00 Yes [id number] 1000mg Take 2 tablets by mouth daily with breakfast. [facility] metformin ER 500 mg 24 hr tablet 2021-0 2-08 00:00: 00 Yes [id number] 1000mg Take 2 tablets by mouth daily with breakfast. [facility] metformin ER 500 mg 24 hr tablet 2-0 2-08 00:00: 00 Yes [id number] 1000mg Take 2 tablets by mouth daily with breakfast. [facility] metformin ER 500 mg 24 hr tablet 2-0 2-08 00:00: 00 Yes [id number] 1000mg Take 2 tablets by mouth daily with breakfast. [facility] metformin ER 500 mg 24 hr tablet 2-0 2-08 00:00: 00 Yes [id number] 1000mg Take 2 tablets by mouth daily with breakfast. [facility] metformin ER 500 mg 24 hr tablet 2-0 2-08 00:00: 00 07-20 00:00 :00 No [id number] 1000mg Take 2 tablets by mouth daily with breakfast. [facility] metformin ER 500 mg 24 hr tablet 2-0 2-08 00:00: 00 07-20 00:00 :00 No [id number] 1000mg Take 2 tablets by mouth daily with breakfast. [facility] metformin ER 500 mg 24 hr tablet 2-0 2-08 00:00: 00 07-20 00:00 :00 No [id number] 1000mg Take 2 tablets by mouth daily with breakfast. [facility] metformin ER 500 mg 24 hr tablet 2-0 2-08 00:00: 00 07-20 00:00 :00 No [id number] 1000mg Take 2 tablets by mouth daily with breakfast. [facility] metformin ER 500 mg 24 hr tablet 2-0 2-08 00:00: 00 07-20 00:00 :00 No [id number] 1000mg Take 2 tablets by mouth daily with breakfast. [facility] metformin ER 500 mg 24 hr tablet 2-0 2-08 00:00: 00 07-20 00:00 :00 No [id number] 1000mg Take 2 tablets by mouth daily with breakfast. [facility] metformin ER 500 mg 24 hr tablet 2-0 2-08 00:00: 00 07-20 00:00 :00 No [id number] 1000mg Take 2 tablets by mouth daily with breakfast. [facility] metformin ER 500 mg 24 hr tablet 2-0 2-08 00:00: 00 07-20 00:00 :00 No [id number] 1000mg Take 2 tablets by mouth daily with breakfast. [facility] metformin ER 500 mg 24 hr tablet 2-0 2-08 00:00: 00 07-20 00:00 :00 No [id number] 1000mg Take 2 tablets by mouth daily with breakfast. [facility] levothyroxi ne 50 mcg tablet 08-18 00:00: 00 Yes 50ug Take 50 mcg by mouth. [facility] levothyroxi ne 50 mcg tablet 08-18 00:00: 00 Yes 50ug Take 50 mcg by mouth. [facility] levothyroxi ne 50 mcg tablet 08-18 00:00: 00 Yes 50ug Take 50 mcg by mouth. [facility] levothyroxi ne 50 mcg tablet 08-18 00:00: 00 Yes 50ug Take 50 mcg by mouth. [facility] levothyroxi ne 50 mcg tablet 08-18 00:00: 00 Yes 50ug Take 50 mcg by mouth. [facility] levothyroxi ne 50 mcg tablet 08-18 00:00: 00 Yes 50ug Take 50 mcg by mouth. [facility] levothyroxi ne 50 mcg tablet 08-18 00:00: 00 Yes 50ug Take 50 mcg by mouth. [facility] levothyroxi ne 50 mcg tablet 08-18 00:00: 00 Yes 50ug Take 50 mcg by mouth. [facility] levothyroxi ne 50 mcg tablet 08-18 00:00: 00 Yes 50ug Take 50 mcg by mouth. [facility] levothyroxi ne 50 mcg tablet 08-18 00:00: 00 Yes 50ug Take 50 mcg by mouth. [facility] levothyroxi ne 50 mcg tablet 08-18 00:00: 00 Yes 50ug Take 50 mcg by mouth. [facility] levothyroxi ne 50 mcg tablet 08-18 00:00: 00 Yes 50ug Take 50 mcg by mouth. [facility] levothyroxi ne 50 mcg tablet 08-18 00:00: 00 Yes 50ug Take 50 mcg by mouth. [facility] levothyroxi ne 50 mcg tablet 08-18 00:00: 00 Yes 50ug Take 50 mcg by mouth. [facility] levothyroxi ne 50 mcg tablet 08-18 00:00: 00 Yes 50ug Take 50 mcg by mouth. [facility] levothyroxi ne 50 mcg tablet 08-18 00:00: 00 Yes 50ug Take 50 mcg by mouth. [facility] levothyroxi ne 50 mcg tablet 08-18 00:00: 00 Yes 50ug Take 50 mcg by mouth. [facility] levothyroxi ne 50 mcg tablet 08-18 00:00: 00 Yes 50ug Take 50 mcg by mouth. [facility] levothyroxi ne 50 mcg tablet 08-18 00:00: 00 Yes 50ug Take 50 mcg by mouth. [facility] levothyroxi ne 50 mcg tablet 08-18 00:00: 00 Yes 50ug Take 50 mcg by mouth. [facility] levothyroxi ne 50 mcg tablet 08-18 00:00: 00 Yes 50ug Take 50 mcg by mouth. [facility] levothyroxi ne 50 mcg tablet 08-18 00:00: 00 Yes 50ug Take 50 mcg by mouth. [facility] levothyroxi ne 50 mcg tablet 08-18 00:00: 00 Yes 50ug Take 50 mcg by mouth. [facility] levothyroxi ne 50 mcg tablet 08-18 00:00: 00 Yes 50ug Take 50 mcg by mouth. [facility] levothyroxi ne 50 mcg tablet 08-18 00:00: 00 Yes 50ug Take 50 mcg by mouth. [facility] levothyroxi ne 50 mcg tablet 08-18 00:00: 00 Yes 50ug Take 50 mcg by mouth. [facility] levothyroxi ne 50 mcg tablet 08-18 00:00: 00 Yes 50ug Take 50 mcg by mouth. [facility] levothyroxi ne 50 mcg tablet 2 00:00: 00 Yes 50ug Take 50 mcg by mouth. [facility] levothyroxi ne 50 mcg tablet 2 00:00: 00 Yes 50ug Take 50 mcg by mouth. [facility] levothyroxi ne 50 mcg tablet 2 00:00: 00 Yes 50ug Take 50 mcg by mouth. [facility] levothyroxi ne 50 mcg tablet 2 00:00: 00 09-13 00:00 :00 No 50ug Take 50 mcg by mouth. [facility] levothyroxi ne 50 mcg tablet 08-18 00:00: 00 09-13 00:00 :00 No 50ug Take 50 mcg by mouth. [facility] levothyroxi ne 50 mcg tablet 08-18 00:00: 00 09-13 00:00 :00 No 50ug Take 50 mcg by mouth. [facility] levothyroxi ne 50 mcg tablet 08-18 00:00: 00 09-13 00:00 :00 No 50ug Take 50 mcg by mouth. [facility] levothyroxi ne 50 mcg tablet 08-18 00:00: 00 09-13 00:00 :00 No 50ug Take 50 mcg by mouth. [facility] levothyroxi ne 50 mcg tablet 08-18 00:00: 00 09-13 00:00 :00 No 50ug Take 50 mcg by mouth. [facility] levothyroxi ne 50 mcg tablet 2 00:00: 00 09-13 00:00 :00 No 50ug Take 50 mcg by mouth. [facility] levothyroxi ne 50 mcg tablet 2- 00:00: 00 09-13 00:00 :00 No 50ug Take 50 mcg by mouth. [facility] pantoprazol e 40 mg EC tablet 1-10 00:00: 00 Yes 40mg Take 40 mg by mouth every morning. [facility] pantoprazol e 40 mg EC tablet 0 1-10 00:00: 00 Yes 40mg Take 40 mg by mouth every morning. [facility] pantoprazol e 40 mg EC tablet 0 1-10 00:00: 00 04-08 00:00 :00 No 40mg Take 40 mg by mouth every morning. [facility] pantoprazol e 40 mg EC tablet 0 1-10 00:00: 00 04-08 00:00 :00 No 40mg Take 40 mg by mouth every morning. [facility] pantoprazol e 40 mg EC tablet 0 1-10 00:00: 00 04-08 00:00 :00 No 40mg Take 40 mg by mouth every morning. [facility] pantoprazol e 40 mg EC tablet 0 1-10 00:00: 00 04-08 00:00 :00 No 40mg Take 40 mg by mouth every morning. [facility] pantoprazol e 40 mg EC tablet 0 1-10 00:00: 00 04-08 00:00 :00 No 40mg Take 40 mg by mouth every morning. [facility] pantoprazol e 40 mg EC tablet 0 1-10 00:00: 00 04-08 00:00 :00 No 40mg Take 40 mg by mouth every morning. [facility] pantoprazol e 40 mg EC tablet 0 1-10 00:00: 00 04-08 00:00 :00 No 40mg Take 40 mg by mouth every morning. [facility] pantoprazol e 40 mg EC tablet 0 1-10 00:00: 00 04-08 00:00 :00 No 40mg Take 40 mg by mouth every morning. [facility] pantoprazol e 40 mg EC tablet 2021-0 1-10 00:00: 00 04-08 00:00 :00 No 40mg Take 40 mg by mouth every morning. [facility] adalimumab (HUMIRA,CF, PEN) 40 mg/0.4 mL injection 2020-07 2-21 00:00: 00 10-25 00:00 :00 No [id number] 40mg inject 1 Pen under the skin every 14 (fourteen) days. [facility] simvastatin 40 mg tablet 8 00:00: 00 02-21 00:00 :00 No [id number] 40mg Take 1 tablet by mouth at bedtime. [facility] simvastatin 40 mg tablet 03-09 00:00: 00 02-21 00:00 :00 No [id number] 40mg Take 1 tablet by mouth at bedtime. [facility] simvastatin 40 mg tablet 03-09 00:00: 00 02-21 00:00 :00 No [id number] 40mg Take 1 tablet by mouth at bedtime. [facility] simvastatin 40 mg tablet 03-09 00:00: 00 02-21 00:00 :00 No [id number] 40mg Take 1 tablet by mouth at bedtime. [facility] simvastatin 40 mg tablet 03-09 00:00: 00 02-21 00:00 :00 No [id number] 40mg Take 1 tablet by mouth at bedtime. [facility] simvastatin 40 mg tablet 03-09 00:00: 00 02-21 00:00 :00 No [id number] 40mg Take 1 tablet by mouth at bedtime. [facility] simvastatin 40 mg tablet 03-09 00:00: 00 02-21 00:00 :00 No [id number] 40mg Take 1 tablet by mouth at bedtime. [facility] metformin ER 500 mg 24 hr tablet 02-16 00:00: 00 08-13 00:00 :00 No [id number] TAKE 1 TABLET BY MOUTH EVERY DAY WITH THE EVENING MEAL [facility] metformin ER 500 mg 24 hr tablet 02-16 00:00: 00 08-13 00:00 :00 No [id number] TAKE 1 TABLET BY MOUTH EVERY DAY WITH THE EVENING MEAL [facility] lamoTRIgine 200 mg tablet 12-08 00:00: 00 Yes 200mg Take 200 mg by mouth at bedtime. [facility] QUEtiapine 100 mg tablet 12-08 00:00: 00 Yes 100mg Take 100 mg by mouth at bedtime. [facility] SERTraline 50 mg tablet 12-08 00:00: 00 Yes 50mg Take 50 mg by mouth at bedtime. [facility] lamoTRIgine 200 mg tablet 12-08 00:00: 00 Yes 200mg Take 200 mg by mouth at bedtime. [facility] QUEtiapine 100 mg tablet 12-08 00:00: 00 Yes 100mg Take 100 mg by mouth at bedtime. [facility] SERTraline 50 mg tablet 12-08 00:00: 00 Yes 50mg Take 50 mg by mouth at bedtime. [facility] lamoTRIgine 200 mg tablet 12-08 00:00: 00 Yes 200mg Take 200 mg by mouth at bedtime. [facility] QUEtiapine 100 mg tablet 12-08 00:00: 00 Yes 100mg Take 100 mg by mouth at bedtime. [facility] SERTraline 50 mg tablet 12-08 00:00: 00 Yes 50mg Take 50 mg by mouth at bedtime. [facility] lamoTRIgine 200 mg tablet 12-08 00:00: 00 Yes 200mg Take 200 mg by mouth at bedtime. [facility] QUEtiapine 100 mg tablet 12-08 00:00: 00 Yes 100mg Take 100 mg by mouth at bedtime. [facility] SERTraline 50 mg tablet 12-08 00:00: 00 Yes 50mg Take 50 mg by mouth at bedtime. [facility] lamoTRIgine 200 mg tablet 0 12-08 00:00: 00 Yes 200mg Take 200 mg by mouth at bedtime. [facility] QUEtiapine 100 mg tablet 12-08 00:00: 00 Yes 100mg Take 100 mg by mouth at bedtime. [facility] SERTraline 50 mg tablet 12-08 00:00: 00 Yes 50mg Take 50 mg by mouth at bedtime. [facility] lamoTRIgine 200 mg tablet 12-08 00:00: 00 Yes 200mg Take 200 mg by mouth at bedtime. [facility] QUEtiapine 100 mg tablet 12-08 00:00: 00 Yes 100mg Take 100 mg by mouth at bedtime. [facility] SERTraline 50 mg tablet 12-08 00:00: 00 Yes 50mg Take 50 mg by mouth at bedtime. [facility] lamoTRIgine 200 mg tablet 12-08 00:00: 00 Yes 200mg Take 200 mg by mouth at bedtime. [facility] QUEtiapine 100 mg tablet 12-08 00:00: 00 Yes 100mg Take 100 mg by mouth at bedtime. [facility] SERTraline 50 mg tablet 12-08 00:00: 00 Yes 50mg Take 50 mg by mouth at bedtime. [facility] lamoTRIgine 200 mg tablet 12-08 00:00: 00 Yes 200mg Take 200 mg by mouth at bedtime. [facility] QUEtiapine 100 mg tablet 12-08 00:00: 00 Yes 100mg Take 100 mg by mouth at bedtime. [facility] SERTraline 50 mg tablet 12-08 00:00: 00 Yes 50mg Take 50 mg by mouth at bedtime. [facility] lamoTRIgine 200 mg tablet 12-08 00:00: 00 Yes 200mg Take 200 mg by mouth at bedtime. [facility] QUEtiapine 100 mg tablet 12-08 00:00: 00 Yes 100mg Take 100 mg by mouth at bedtime. [facility] SERTraline 50 mg tablet 12-08 00:00: 00 Yes 50mg Take 50 mg by mouth at bedtime. [facility] lamoTRIgine 200 mg tablet 12-08 00:00: 00 Yes 200mg Take 200 mg by mouth at bedtime. [facility] QUEtiapine 100 mg tablet 12-08 00:00: 00 Yes 100mg Take 100 mg by mouth at bedtime. [facility] SERTraline 50 mg tablet 12-08 00:00: 00 Yes 50mg Take 50 mg by mouth at bedtime. [facility] lamoTRIgine 200 mg tablet 12-08 00:00: 00 Yes 200mg Take 200 mg by mouth at bedtime. [facility] QUEtiapine 100 mg tablet 12-08 00:00: 00 Yes 100mg Take 100 mg by mouth at bedtime. [facility] SERTraline 50 mg tablet 12-08 00:00: 00 Yes 50mg Take 50 mg by mouth at bedtime. [facility] lamoTRIgine 200 mg tablet 12-08 00:00: 00 Yes 200mg Take 200 mg by mouth at bedtime. [facility] QUEtiapine 100 mg tablet 12-08 00:00: 00 Yes 100mg Take 100 mg by mouth at bedtime. [facility] SERTraline 50 mg tablet 12-08 00:00: 00 Yes 50mg Take 50 mg by mouth at bedtime. [facility] lamoTRIgine 200 mg tablet 12-08 00:00: 00 Yes 200mg Take 200 mg by mouth at bedtime. [facility] QUEtiapine 100 mg tablet 0 12-08 00:00: 00 Yes 100mg Take 100 mg by mouth at bedtime. [facility] SERTraline 50 mg tablet 12-08 00:00: 00 Yes 50mg Take 50 mg by mouth at bedtime. [facility] lamoTRIgine 200 mg tablet 0 12-08 00:00: 00 Yes 200mg Take 200 mg by mouth at bedtime. [facility] QUEtiapine 100 mg tablet 0 12-08 00:00: 00 Yes 100mg Take 100 mg by mouth at bedtime. [facility] SERTraline 50 mg tablet 0 12-08 00:00: 00 Yes 50mg Take 50 mg by mouth at bedtime. [facility] lamoTRIgine 200 mg tablet 0 12-08 00:00: 00 Yes 200mg Take 200 mg by mouth at bedtime. [facility] QUEtiapine 100 mg tablet 0 12-08 00:00: 00 Yes 100mg Take 100 mg by mouth at bedtime. [facility] SERTraline 50 mg tablet 0 12-08 00:00: 00 Yes 50mg Take 50 mg by mouth at bedtime. [facility] lamoTRIgine 200 mg tablet 0 12-08 00:00: 00 Yes 200mg Take 200 mg by mouth at bedtime. [facility] QUEtiapine 100 mg tablet 0 12-08 00:00: 00 Yes 100mg Take 100 mg by mouth at bedtime. [facility] SERTraline 50 mg tablet 0 12-08 00:00: 00 Yes 50mg Take 50 mg by mouth at bedtime. [facility] lamoTRIgine 200 mg tablet 12-08 00:00: 00 Yes 200mg Take 200 mg by mouth at bedtime. [facility] QUEtiapine 100 mg tablet 0 12-08 00:00: 00 Yes 100mg Take 100 mg by mouth at bedtime. [facility] SERTraline 50 mg tablet 0 12-08 00:00: 00 Yes 50mg Take 50 mg by mouth at bedtime. [facility] lamoTRIgine 200 mg tablet 0 12-08 00:00: 00 Yes 200mg Take 200 mg by mouth at bedtime. [facility] QUEtiapine 100 mg tablet 0 12-08 00:00: 00 Yes 100mg Take 100 mg by mouth at bedtime. [facility] SERTraline 50 mg tablet 12-08 00:00: 00 Yes 50mg Take 50 mg by mouth at bedtime. [facility] lamoTRIgine 200 mg tablet 12-08 00:00: 00 Yes 200mg Take 200 mg by mouth at bedtime. [facility] QUEtiapine 100 mg tablet 12-08 00:00: 00 Yes 100mg Take 100 mg by mouth at bedtime. [facility] SERTraline 50 mg tablet 12-08 00:00: 00 Yes 50mg Take 50 mg by mouth at bedtime. [facility] lamoTRIgine 200 mg tablet 12-08 00:00: 00 Yes 200mg Take 200 mg by mouth at bedtime. [facility] QUEtiapine 100 mg tablet 12-08 00:00: 00 Yes 100mg Take 100 mg by mouth at bedtime. [facility] SERTraline 50 mg tablet 12-08 00:00: 00 Yes 50mg Take 50 mg by mouth at bedtime. [facility] lamoTRIgine 200 mg tablet 12-08 00:00: 00 Yes 200mg Take 200 mg by mouth at bedtime. [facility] QUEtiapine 100 mg tablet 12-08 00:00: 00 Yes 100mg Take 100 mg by mouth at bedtime. [facility] SERTraline 50 mg tablet 12-08 00:00: 00 Yes 50mg Take 50 mg by mouth at bedtime. [facility] lamoTRIgine 200 mg tablet 12-08 00:00: 00 Yes 200mg Take 200 mg by mouth at bedtime. [facility] QUEtiapine 100 mg tablet 12-08 00:00: 00 Yes 100mg Take 100 mg by mouth at bedtime. [facility] SERTraline 50 mg tablet 12-08 00:00: 00 Yes 50mg Take 50 mg by mouth at bedtime. [facility] lamoTRIgine 200 mg tablet 12-08 00:00: 00 Yes 200mg Take 200 mg by mouth at bedtime. [facility] QUEtiapine 100 mg tablet 0 12-08 00:00: 00 Yes 100mg Take 100 mg by mouth at bedtime. [facility] SERTraline 50 mg tablet 12-08 00:00: 00 Yes 50mg Take 50 mg by mouth at bedtime. [facility] lamoTRIgine 200 mg tablet 12-08 00:00: 00 Yes 200mg Take 200 mg by mouth at bedtime. [facility] QUEtiapine 100 mg tablet 12-08 00:00: 00 Yes 100mg Take 100 mg by mouth at bedtime. [facility] SERTraline 50 mg tablet 12-08 00:00: 00 Yes 50mg Take 50 mg by mouth at bedtime. [facility] lamoTRIgine 200 mg tablet 12-08 00:00: 00 Yes 200mg Take 200 mg by mouth at bedtime. [facility] QUEtiapine 100 mg tablet 12-08 00:00: 00 Yes 100mg Take 100 mg by mouth at bedtime. [facility] SERTraline 50 mg tablet 12-08 00:00: 00 Yes 50mg Take 50 mg by mouth at bedtime. [facility] lamoTRIgine 200 mg tablet 12-08 00:00: 00 Yes 200mg Take 200 mg by mouth at bedtime. [facility] QUEtiapine 100 mg tablet 12-08 00:00: 00 Yes 100mg Take 100 mg by mouth at bedtime. [facility] SERTraline 50 mg tablet 12-08 00:00: 00 Yes 50mg Take 50 mg by mouth at bedtime. [facility] lamoTRIgine 200 mg tablet 12-08 00:00: 00 Yes 200mg Take 200 mg by mouth at bedtime. [facility] QUEtiapine 100 mg tablet 0 12-08 00:00: 00 Yes 100mg Take 100 mg by mouth at bedtime. [facility] SERTraline 50 mg tablet 12-08 00:00: 00 Yes 50mg Take 50 mg by mouth at bedtime. [facility] lamoTRIgine 200 mg tablet 12-08 00:00: 00 Yes 200mg Take 200 mg by mouth at bedtime. [facility] QUEtiapine 100 mg tablet 12-08 00:00: 00 Yes 100mg Take 100 mg by mouth at bedtime. [facility] SERTraline 50 mg tablet 12-08 00:00: 00 Yes 50mg Take 50 mg by mouth at bedtime. [facility] lamoTRIgine 200 mg tablet 12-08 00:00: 00 Yes 200mg Take 200 mg by mouth at bedtime. [facility] QUEtiapine 100 mg tablet 12-08 00:00: 00 Yes 100mg Take 100 mg by mouth at bedtime. [facility] SERTraline 50 mg tablet 12-08 00:00: 00 Yes 50mg Take 50 mg by mouth at bedtime. [facility] lamoTRIgine 200 mg tablet 12-08 00:00: 00 Yes 200mg Take 200 mg by mouth at bedtime. [facility] QUEtiapine 100 mg tablet 12-08 00:00: 00 Yes 100mg Take 100 mg by mouth at bedtime. [facility] SERTraline 50 mg tablet 12-08 00:00: 00 Yes 50mg Take 50 mg by mouth at bedtime. [facility] lamoTRIgine 200 mg tablet 12-08 00:00: 00 Yes 200mg Take 200 mg by mouth at bedtime. [facility] QUEtiapine 100 mg tablet 12-08 00:00: 00 Yes 100mg Take 100 mg by mouth at bedtime. [facility] SERTraline 50 mg tablet 12-08 00:00: 00 Yes 50mg Take 50 mg by mouth at bedtime. [facility] lamoTRIgine 200 mg tablet 12-08 00:00: 00 Yes 200mg Take 200 mg by mouth at bedtime. [facility] QUEtiapine 100 mg tablet 12-08 00:00: 00 Yes 100mg Take 100 mg by mouth at bedtime. [facility] SERTraline 50 mg tablet 12-08 00:00: 00 Yes 50mg Take 50 mg by mouth at bedtime. [facility] lamoTRIgine 200 mg tablet 12-08 00:00: 00 Yes 200mg Take 200 mg by mouth at bedtime. [facility] QUEtiapine 100 mg tablet 12-08 00:00: 00 Yes 100mg Take 100 mg by mouth at bedtime. [facility] SERTraline 50 mg tablet 12-08 00:00: 00 Yes 50mg Take 50 mg by mouth at bedtime. [facility] lamoTRIgine 200 mg tablet 12-08 00:00: 00 Yes 200mg Take 200 mg by mouth at bedtime. [facility] QUEtiapine 100 mg tablet 12-08 00:00: 00 Yes 100mg Take 100 mg by mouth at bedtime. [facility] SERTraline 50 mg tablet 12-08 00:00: 00 Yes 50mg Take 50 mg by mouth at bedtime. [facility] lamoTRIgine 200 mg tablet 12-08 00:00: 00 Yes 200mg Take 200 mg by mouth at bedtime. [facility] QUEtiapine 100 mg tablet 0 12-08 00:00: 00 Yes 100mg Take 100 mg by mouth at bedtime. [facility] SERTraline 50 mg tablet 0 12-08 00:00: 00 Yes 50mg Take 50 mg by mouth at bedtime. [facility] lamoTRIgine 200 mg tablet 0 12-08 00:00: 00 Yes 200mg Take 200 mg by mouth at bedtime. [facility] QUEtiapine 100 mg tablet 0 12-08 00:00: 00 Yes 100mg Take 100 mg by mouth at bedtime. [facility] SERTraline 50 mg tablet 0 12-08 00:00: 00 Yes 50mg Take 50 mg by mouth at bedtime. [facility] lamoTRIgine 200 mg tablet 12-08 00:00: 00 Yes 200mg Take 200 mg by mouth at bedtime. [facility] QUEtiapine 100 mg tablet 0 12-08 00:00: 00 Yes 100mg Take 100 mg by mouth at bedtime. [facility] SERTraline 50 mg tablet 12-08 00:00: 00 Yes 50mg Take 50 mg by mouth at bedtime. [facility] lamoTRIgine 200 mg tablet 12-08 00:00: 00 Yes 200mg Take 200 mg by mouth at bedtime. [facility] QUEtiapine 100 mg tablet 0 12-08 00:00: 00 Yes 100mg Take 100 mg by mouth at bedtime. [facility] SERTraline 50 mg tablet 12-08 00:00: 00 Yes 50mg Take 50 mg by mouth at bedtime. [facility] lamoTRIgine 200 mg tablet 12-08 00:00: 00 Yes 200mg Take 200 mg by mouth at bedtime. [facility] QUEtiapine 100 mg tablet 12-08 00:00: 00 Yes 100mg Take 100 mg by mouth at bedtime. [facility] SERTraline 50 mg tablet 12-08 00:00: 00 Yes 50mg Take 50 mg by mouth at bedtime. [facility] lamoTRIgine 200 mg tablet 0 12-08 00:00: 00 Yes 200mg Take 200 mg by mouth at bedtime. [facility] QUEtiapine 100 mg tablet 12-08 00:00: 00 Yes 100mg Take 100 mg by mouth at bedtime. [facility] SERTraline 50 mg tablet 0 12-08 00:00: 00 Yes 50mg Take 50 mg by mouth at bedtime. [facility] lamoTRIgine 200 mg tablet 12-08 00:00: 00 Yes 200mg Take 200 mg by mouth at bedtime. [facility] QUEtiapine 100 mg tablet 12-08 00:00: 00 Yes 100mg Take 100 mg by mouth at bedtime. [facility] SERTraline 50 mg tablet 12-08 00:00: 00 Yes 50mg Take 50 mg by mouth at bedtime. [facility] lamoTRIgine 200 mg tablet 12-08 00:00: 00 Yes 200mg Take 200 mg by mouth at bedtime. [facility] QUEtiapine 100 mg tablet 12-08 00:00: 00 Yes 100mg Take 100 mg by mouth at bedtime. [facility] SERTraline 50 mg tablet 12-08 00:00: 00 Yes 50mg Take 50 mg by mouth at bedtime. [facility] lamoTRIgine 200 mg tablet 12-08 00:00: 00 Yes 200mg Take 200 mg by mouth at bedtime. [facility] QUEtiapine 100 mg tablet 12-08 00:00: 00 Yes 100mg Take 100 mg by mouth at bedtime. [facility] SERTraline 50 mg tablet 12-08 00:00: 00 Yes 50mg Take 50 mg by mouth at bedtime. [facility] lamoTRIgine 200 mg tablet 12-08 00:00: 00 Yes 200mg Take 200 mg by mouth at bedtime. [facility] QUEtiapine 100 mg tablet 12-08 00:00: 00 Yes 100mg Take 100 mg by mouth at bedtime. [facility] SERTraline 50 mg tablet 12-08 00:00: 00 Yes 50mg Take 50 mg by mouth at bedtime. [facility] lamoTRIgine 200 mg tablet 12-08 00:00: 00 Yes 200mg Take 200 mg by mouth at bedtime. [facility] QUEtiapine 100 mg tablet 12-08 00:00: 00 Yes 100mg Take 100 mg by mouth at bedtime. [facility] SERTraline 50 mg tablet 0 12-08 00:00: 00 Yes 50mg Take 50 mg by mouth at bedtime. [facility] lamoTRIgine 200 mg tablet 0 12-08 00:00: 00 Yes 200mg Take 200 mg by mouth at bedtime. [facility] QUEtiapine 100 mg tablet 0 12-08 00:00: 00 Yes 100mg Take 100 mg by mouth at bedtime. [facility] SERTraline 50 mg tablet 12-08 00:00: 00 Yes 50mg Take 50 mg by mouth at bedtime. [facility] lamoTRIgine 200 mg tablet 12-08 00:00: 00 Yes 200mg Take 200 mg by mouth at bedtime. [facility] QUEtiapine 100 mg tablet 0 12-08 00:00: 00 Yes 100mg Take 100 mg by mouth at bedtime. [facility] SERTraline 50 mg tablet 12-08 00:00: 00 Yes 50mg Take 50 mg by mouth at bedtime. [facility] lamoTRIgine 200 mg tablet 12-08 00:00: 00 Yes 200mg Take 200 mg by mouth at bedtime. [facility] QUEtiapine 100 mg tablet 12-08 00:00: 00 Yes 100mg Take 100 mg by mouth at bedtime. [facility] SERTraline 50 mg tablet 12-08 00:00: 00 Yes 50mg Take 50 mg by mouth at bedtime. [facility] lamoTRIgine 200 mg tablet 0 12-08 00:00: 00 Yes 200mg Take 200 mg by mouth at bedtime. [facility] QUEtiapine 100 mg tablet 0 12-08 00:00: 00 Yes 100mg Take 100 mg by mouth at bedtime. [facility] SERTraline 50 mg tablet 0 12-08 00:00: 00 Yes 50mg Take 50 mg by mouth at bedtime. [facility] lamoTRIgine 200 mg tablet 12-08 00:00: 00 Yes 200mg Take 200 mg by mouth at bedtime. [facility] QUEtiapine 100 mg tablet 12-08 00:00: 00 Yes 100mg Take 100 mg by mouth at bedtime. [facility] SERTraline 50 mg tablet 0 12-08 00:00: 00 Yes 50mg Take 50 mg by mouth at bedtime. [facility] lamoTRIgine 200 mg tablet 0 12-08 00:00: 00 Yes 200mg Take 200 mg by mouth at bedtime. [facility] QUEtiapine 100 mg tablet 12-08 00:00: 00 Yes 100mg Take 100 mg by mouth at bedtime. [facility] SERTraline 50 mg tablet 12-08 00:00: 00 Yes 50mg Take 50 mg by mouth at bedtime. [facility] lamoTRIgine 200 mg tablet 12-08 00:00: 00 Yes 200mg Take 200 mg by mouth at bedtime. [facility] QUEtiapine 100 mg tablet 12-08 00:00: 00 Yes 100mg Take 100 mg by mouth at bedtime. [facility] SERTraline 50 mg tablet 12-08 00:00: 00 Yes 50mg Take 50 mg by mouth at bedtime. [facility] lamoTRIgine 200 mg tablet 12-08 00:00: 00 Yes 200mg Take 200 mg by mouth at bedtime. [facility] QUEtiapine 100 mg tablet 0 12-08 00:00: 00 Yes 100mg Take 100 mg by mouth at bedtime. [facility] SERTraline 50 mg tablet 0 12-08 00:00: 00 Yes 50mg Take 50 mg by mouth at bedtime. [facility] lamoTRIgine 200 mg tablet 0 12-08 00:00: 00 Yes 200mg Take 200 mg by mouth at bedtime. [facility] QUEtiapine 100 mg tablet 0 12-08 00:00: 00 Yes 100mg Take 100 mg by mouth at bedtime. [facility] SERTraline 50 mg tablet 0 12-08 00:00: 00 Yes 50mg Take 50 mg by mouth at bedtime. [facility] lamoTRIgine 200 mg tablet 12-08 00:00: 00 Yes 200mg Take 200 mg by mouth at bedtime. [facility] QUEtiapine 100 mg tablet 12-08 00:00: 00 Yes 100mg Take 100 mg by mouth at bedtime. [facility] SERTraline 50 mg tablet 12-08 00:00: 00 Yes 50mg Take 50 mg by mouth at bedtime. [facility] lamoTRIgine 200 mg tablet 12-08 00:00: 00 Yes 200mg Take 200 mg by mouth at bedtime. [facility] QUEtiapine 100 mg tablet 12-08 00:00: 00 Yes 100mg Take 100 mg by mouth at bedtime. [facility] SERTraline 50 mg tablet 12-08 00:00: 00 Yes 50mg Take 50 mg by mouth at bedtime. [facility] lamoTRIgine 200 mg tablet 12-08 00:00: 00 Yes 200mg Take 200 mg by mouth at bedtime. [facility] QUEtiapine 100 mg tablet 12-08 00:00: 00 Yes 100mg Take 100 mg by mouth at bedtime. [facility] SERTraline 50 mg tablet 0 12-08 00:00: 00 Yes 50mg Take 50 mg by mouth at bedtime. [facility] lamoTRIgine 200 mg tablet 12-08 00:00: 00 Yes 200mg Take 200 mg by mouth at bedtime. [facility] QUEtiapine 100 mg tablet 0 12-08 00:00: 00 Yes 100mg Take 100 mg by mouth at bedtime. [facility] SERTraline 50 mg tablet 0 12-08 00:00: 00 Yes 50mg Take 50 mg by mouth at bedtime. [facility] lamoTRIgine 200 mg tablet 0 12-08 00:00: 00 Yes 200mg Take 200 mg by mouth at bedtime. [facility] QUEtiapine 100 mg tablet 0 12-08 00:00: 00 Yes 100mg Take 100 mg by mouth at bedtime. [facility] SERTraline 50 mg tablet 0 12-08 00:00: 00 Yes 50mg Take 50 mg by mouth at bedtime. [facility] lamoTRIgine 200 mg tablet 0 12-08 00:00: 00 Yes 200mg Take 200 mg by mouth at bedtime. [facility] QUEtiapine 100 mg tablet 12-08 00:00: 00 Yes 100mg Take 100 mg by mouth at bedtime. [facility] SERTraline 50 mg tablet 0 12-08 00:00: 00 Yes 50mg Take 50 mg by mouth at bedtime. [facility] lamoTRIgine 200 mg tablet 0 12-08 00:00: 00 Yes 200mg Take 200 mg by mouth at bedtime. [facility] QUEtiapine 100 mg tablet 12-08 00:00: 00 Yes 100mg Take 100 mg by mouth at bedtime. [facility] SERTraline 50 mg tablet 12-08 00:00: 00 Yes 50mg Take 50 mg by mouth at bedtime. [facility] lamoTRIgine 200 mg tablet 0 12-08 00:00: 00 Yes 200mg Take 200 mg by mouth at bedtime. [facility] QUEtiapine 100 mg tablet 0 12-08 00:00: 00 Yes 100mg Take 100 mg by mouth at bedtime. [facility] SERTraline 50 mg tablet 0 12-08 00:00: 00 Yes 50mg Take 50 mg by mouth at bedtime. [facility] lamoTRIgine 200 mg tablet 0 12-08 00:00: 00 Yes 200mg Take 200 mg by mouth at bedtime. [facility] QUEtiapine 100 mg tablet 12-08 00:00: 00 Yes 100mg Take 100 mg by mouth at bedtime. [facility] SERTraline 50 mg tablet 12-08 00:00: 00 Yes 50mg Take 50 mg by mouth at bedtime. [facility] lamoTRIgine 200 mg tablet 12-08 00:00: 00 Yes 200mg Take 200 mg by mouth at bedtime. [facility] QUEtiapine 100 mg tablet 12-08 00:00: 00 Yes 100mg Take 100 mg by mouth at bedtime. [facility] SERTraline 50 mg tablet 12-08 00:00: 00 Yes 50mg Take 50 mg by mouth at bedtime. [facility] lamoTRIgine 200 mg tablet 12-08 00:00: 00 Yes 200mg Take 200 mg by mouth at bedtime. [facility] QUEtiapine 100 mg tablet 12-08 00:00: 00 Yes 100mg Take 100 mg by mouth at bedtime. [facility] lamoTRIgine 200 mg tablet 12-08 00:00: 00 Yes 200mg Take 200 mg by mouth at bedtime. [facility] QUEtiapine 100 mg tablet 12-08 00:00: 00 Yes 100mg Take 100 mg by mouth at bedtime. [facility] lamoTRIgine 200 mg tablet 0 12-08 00:00: 00 Yes 200mg Take 200 mg by mouth at bedtime. [facility] QUEtiapine 100 mg tablet 12-08 00:00: 00 Yes 100mg Take 100 mg by mouth at bedtime. [facility] lamoTRIgine 200 mg tablet 0 12-08 00:00: 00 Yes 200mg Take 200 mg by mouth at bedtime. [facility] QUEtiapine 100 mg tablet 0 12-08 00:00: 00 Yes 100mg Take 100 mg by mouth at bedtime. [facility] lamoTRIgine 200 mg tablet 0 12-08 00:00: 00 Yes 200mg Take 200 mg by mouth at bedtime. [facility] QUEtiapine 100 mg tablet 0 12-08 00:00: 00 Yes 100mg Take 100 mg by mouth at bedtime. [facility] lamoTRIgine 200 mg tablet 0 12-08 00:00: 00 Yes 200mg Take 200 mg by mouth at bedtime. [facility] QUEtiapine 100 mg tablet 0 12-08 00:00: 00 Yes 100mg Take 100 mg by mouth at bedtime. [facility] lamoTRIgine 200 mg tablet 0 12-08 00:00: 00 Yes 200mg Take 200 mg by mouth at bedtime. [facility] QUEtiapine 100 mg tablet 0 12-08 00:00: 00 Yes 100mg Take 100 mg by mouth at bedtime. [facility] lamoTRIgine 200 mg tablet 0 12-08 00:00: 00 Yes 200mg Take 200 mg by mouth at bedtime. [facility] QUEtiapine 100 mg tablet 0 12-08 00:00: 00 Yes 100mg Take 100 mg by mouth at bedtime. [facility] lamoTRIgine 200 mg tablet 0 12-08 00:00: 00 Yes 200mg Take 200 mg by mouth at bedtime. [facility] QUEtiapine 100 mg tablet 0 12-08 00:00: 00 Yes 100mg Take 100 mg by mouth at bedtime. [facility] lamoTRIgine 200 mg tablet 0 12-08 00:00: 00 Yes 200mg Take 200 mg by mouth at bedtime. [facility] QUEtiapine 100 mg tablet 0 12-08 00:00: 00 Yes 100mg Take 100 mg by mouth at bedtime. [facility] lamoTRIgine 200 mg tablet 0 12-08 00:00: 00 Yes 200mg Take 200 mg by mouth at bedtime. [facility] QUEtiapine 100 mg tablet 0 12-08 00:00: 00 Yes 100mg Take 100 mg by mouth at bedtime. [facility] lamoTRIgine 200 mg tablet 0 12-08 00:00: 00 Yes 200mg Take 200 mg by mouth at bedtime. [facility] QUEtiapine 100 mg tablet 0 12-08 00:00: 00 Yes 100mg Take 100 mg by mouth at bedtime. [facility] lamoTRIgine 200 mg tablet 2020-0 12-08 00:00: 00 Yes 200mg Take 200 mg by mouth at bedtime. [facility] QUEtiapine 100 mg tablet 0 12-08 00:00: 00 Yes 100mg Take 100 mg by mouth at bedtime. [facility] lamoTRIgine 200 mg tablet 0 12-08 00:00: 00 Yes 200mg Take 200 mg by mouth at bedtime. [facility] QUEtiapine 100 mg tablet 0 12-08 00:00: 00 Yes 100mg Take 100 mg by mouth at bedtime. [facility] lamoTRIgine 200 mg tablet 0 12-08 00:00: 00 Yes 200mg Take 200 mg by mouth at bedtime. [facility] QUEtiapine 100 mg tablet 0 12-08 00:00: 00 Yes 100mg Take 100 mg by mouth at bedtime. [facility] lamoTRIgine 200 mg tablet 0 12-08 00:00: 00 Yes 200mg Take 200 mg by mouth at bedtime. [facility] QUEtiapine 100 mg tablet 0 12-08 00:00: 00 Yes 100mg Take 100 mg by mouth at bedtime. [facility] lamoTRIgine 200 mg tablet 2020-0 12-08 00:00: 00 Yes 200mg Take 200 mg by mouth at bedtime. [facility] QUEtiapine 100 mg tablet 0 12-08 00:00: 00 Yes 100mg Take 100 mg by mouth at bedtime. [facility] lamoTRIgine 200 mg tablet 2020-0 25 00:00: 00 Yes 200mg Take 200 mg by mouth at bedtime. [facility] QUEtiapine 100 mg tablet 0 5-25 00:00: 00 Yes 100mg Take 100 mg by mouth at bedtime. [facility] lamoTRIgine 200 mg tablet 0 12-08 00:00: 00 Yes 200mg Take 200 mg by mouth at bedtime. [facility] QUEtiapine 100 mg tablet 0 12-08 00:00: 00 Yes 100mg Take 100 mg by mouth at bedtime. [facility] lamoTRIgine 200 mg tablet 0 12-08 00:00: 00 Yes 200mg Take 200 mg by mouth at bedtime. [facility] QUEtiapine 100 mg tablet 0 12-08 00:00: 00 Yes 100mg Take 100 mg by mouth at bedtime. [facility] lamoTRIgine 200 mg tablet 0 12-08 00:00: 00 Yes 200mg Take 200 mg by mouth at bedtime. [facility] QUEtiapine 100 mg tablet 0 12-08 00:00: 00 Yes 100mg Take 100 mg by mouth at bedtime. [facility] lamoTRIgine 200 mg tablet 0 12-08 00:00: 00 Yes 200mg Take 200 mg by mouth at bedtime. [facility] QUEtiapine 100 mg tablet 0 12-08 00:00: 00 Yes 100mg Take 100 mg by mouth at bedtime. [facility] lamoTRIgine 200 mg tablet 0 12-08 00:00: 00 Yes 200mg Take 200 mg by mouth at bedtime. [facility] QUEtiapine 100 mg tablet 0 12-08 00:00: 00 Yes 100mg Take 100 mg by mouth at bedtime. [facility] lamoTRIgine 200 mg tablet 0 12-08 00:00: 00 Yes 200mg Take 200 mg by mouth at bedtime. [facility] QUEtiapine 100 mg tablet 0 12-08 00:00: 00 Yes 100mg Take 100 mg by mouth at bedtime. [facility] lamoTRIgine 200 mg tablet 0 12-08 00:00: 00 Yes 200mg Take 200 mg by mouth at bedtime. [facility] QUEtiapine 100 mg tablet 0 12-08 00:00: 00 Yes 100mg Take 100 mg by mouth at bedtime. [facility] lamoTRIgine 200 mg tablet 0 12-08 00:00: 00 Yes 200mg Take 200 mg by mouth at bedtime. [facility] QUEtiapine 100 mg tablet 0 12-08 00:00: 00 Yes 100mg Take 100 mg by mouth at bedtime. [facility] lamoTRIgine 200 mg tablet 0 12-08 00:00: 00 Yes 200mg Take 200 mg by mouth at bedtime. [facility] QUEtiapine 100 mg tablet 0 12-08 00:00: 00 Yes 100mg Take 100 mg by mouth at bedtime. [facility] lamoTRIgine 200 mg tablet 0 12-08 00:00: 00 Yes 200mg Take 200 mg by mouth at bedtime. [facility] QUEtiapine 100 mg tablet 0 12-08 00:00: 00 Yes 100mg Take 100 mg by mouth at bedtime. [facility] lamoTRIgine 200 mg tablet 0 12-08 00:00: 00 Yes 200mg Take 200 mg by mouth at bedtime. [facility] QUEtiapine 100 mg tablet 0 12-08 00:00: 00 Yes 100mg Take 100 mg by mouth at bedtime. [facility] lamoTRIgine 200 mg tablet 0 12-08 00:00: 00 Yes 200mg Take 200 mg by mouth at bedtime. [facility] QUEtiapine 100 mg tablet 0 12-08 00:00: 00 Yes 100mg Take 100 mg by mouth at bedtime. [facility] lamoTRIgine 200 mg tablet 0 12-08 00:00: 00 Yes 200mg Take 200 mg by mouth at bedtime. [facility] QUEtiapine 100 mg tablet 0 12-08 00:00: 00 Yes 100mg Take 100 mg by mouth at bedtime. [facility] lamoTRIgine 200 mg tablet 0 12-08 00:00: 00 Yes 200mg Take 200 mg by mouth at bedtime. [facility] QUEtiapine 100 mg tablet 0 12-08 00:00: 00 Yes 100mg Take 100 mg by mouth at bedtime. [facility] lamoTRIgine 200 mg tablet 2020-0 12-08 00:00: 00 Yes 200mg Take 200 mg by mouth at bedtime. [facility] QUEtiapine 100 mg tablet 0 12-08 00:00: 00 Yes 100mg Take 100 mg by mouth at bedtime. [facility] lamoTRIgine 200 mg tablet 0 12-08 00:00: 00 Yes 200mg Take 200 mg by mouth at bedtime. [facility] QUEtiapine 100 mg tablet 0 12-08 00:00: 00 Yes 100mg Take 100 mg by mouth at bedtime. [facility] lamoTRIgine 200 mg tablet 0 12-08 00:00: 00 Yes 200mg Take 200 mg by mouth at bedtime. [facility] QUEtiapine 100 mg tablet 0 12-08 00:00: 00 Yes 100mg Take 100 mg by mouth at bedtime. [facility] lamoTRIgine 200 mg tablet 0 12-08 00:00: 00 Yes 200mg Take 200 mg by mouth at bedtime. [facility] QUEtiapine 100 mg tablet 0 12-08 00:00: 00 Yes 100mg Take 100 mg by mouth at bedtime. [facility] lamoTRIgine 200 mg tablet 2020-0 12-08 00:00: 00 Yes 200mg Take 200 mg by mouth at bedtime. [facility] QUEtiapine 100 mg tablet 0 12-08 00:00: 00 Yes 100mg Take 100 mg by mouth at bedtime. [facility] lamoTRIgine 200 mg tablet 2020-0 25 00:00: 00 Yes 200mg Take 200 mg by mouth at bedtime. [facility] QUEtiapine 100 mg tablet 0 5-25 00:00: 00 Yes 100mg Take 100 mg by mouth at bedtime. [facility] lamoTRIgine 200 mg tablet 0 12-08 00:00: 00 Yes 200mg Take 200 mg by mouth at bedtime. [facility] QUEtiapine 100 mg tablet 0 12-08 00:00: 00 Yes 100mg Take 100 mg by mouth at bedtime. [facility] lamoTRIgine 200 mg tablet 0 12-08 00:00: 00 Yes 200mg Take 200 mg by mouth at bedtime. [facility] QUEtiapine 100 mg tablet 0 12-08 00:00: 00 Yes 100mg Take 100 mg by mouth at bedtime. [facility] lamoTRIgine 200 mg tablet 0 12-08 00:00: 00 Yes 200mg Take 200 mg by mouth at bedtime. [facility] QUEtiapine 100 mg tablet 0 12-08 00:00: 00 Yes 100mg Take 100 mg by mouth at bedtime. [facility] lamoTRIgine 200 mg tablet 0 12-08 00:00: 00 Yes 200mg Take 200 mg by mouth at bedtime. [facility] QUEtiapine 100 mg tablet 0 12-08 00:00: 00 Yes 100mg Take 100 mg by mouth at bedtime. [facility] lamoTRIgine 200 mg tablet 0 12-08 00:00: 00 Yes 200mg Take 200 mg by mouth at bedtime. [facility] QUEtiapine 100 mg tablet 0 12-08 00:00: 00 Yes 100mg Take 100 mg by mouth at bedtime. [facility] lamoTRIgine 200 mg tablet 0 12-08 00:00: 00 Yes 200mg Take 200 mg by mouth at bedtime. [facility] QUEtiapine 100 mg tablet 0 12-08 00:00: 00 Yes 100mg Take 100 mg by mouth at bedtime. [facility] lamoTRIgine 200 mg tablet 0 12-08 00:00: 00 Yes 200mg Take 200 mg by mouth at bedtime. [facility] QUEtiapine 100 mg tablet 0 12-08 00:00: 00 Yes 100mg Take 100 mg by mouth at bedtime. [facility] lamoTRIgine 200 mg tablet 0 12-08 00:00: 00 Yes 200mg Take 200 mg by mouth at bedtime. [facility] QUEtiapine 100 mg tablet 0 12-08 00:00: 00 Yes 100mg Take 100 mg by mouth at bedtime. [facility] lamoTRIgine 200 mg tablet 0 12-08 00:00: 00 Yes 200mg Take 200 mg by mouth at bedtime. [facility] QUEtiapine 100 mg tablet 0 12-08 00:00: 00 Yes 100mg Take 100 mg by mouth at bedtime. [facility] lamoTRIgine 200 mg tablet 0 12-08 00:00: 00 Yes 200mg Take 200 mg by mouth at bedtime. [facility] QUEtiapine 100 mg tablet 0 12-08 00:00: 00 Yes 100mg Take 100 mg by mouth at bedtime. [facility] lamoTRIgine 200 mg tablet 0 12-08 00:00: 00 Yes 200mg Take 200 mg by mouth at bedtime. [facility] QUEtiapine 100 mg tablet 0 12-08 00:00: 00 Yes 100mg Take 100 mg by mouth at bedtime. [facility] lamoTRIgine 200 mg tablet 0 12-08 00:00: 00 Yes 200mg Take 200 mg by mouth at bedtime. [facility] QUEtiapine 100 mg tablet 0 12-08 00:00: 00 Yes 100mg Take 100 mg by mouth at bedtime. [facility] lamoTRIgine 200 mg tablet 0 12-08 00:00: 00 Yes 200mg Take 200 mg by mouth at bedtime. [facility] QUEtiapine 100 mg tablet 0 12-08 00:00: 00 Yes 100mg Take 100 mg by mouth at bedtime. [facility] lamoTRIgine 200 mg tablet 0 12-08 00:00: 00 Yes 200mg Take 200 mg by mouth at bedtime. [facility] QUEtiapine 100 mg tablet 0 12-08 00:00: 00 Yes 100mg Take 100 mg by mouth at bedtime. [facility] lamoTRIgine 200 mg tablet 2020-0 12-08 00:00: 00 Yes 200mg Take 200 mg by mouth at bedtime. [facility] QUEtiapine 100 mg tablet 0 12-08 00:00: 00 Yes 100mg Take 100 mg by mouth at bedtime. [facility] lamoTRIgine 200 mg tablet 0 12-08 00:00: 00 Yes 200mg Take 200 mg by mouth at bedtime. [facility] QUEtiapine 100 mg tablet 0 12-08 00:00: 00 Yes 100mg Take 100 mg by mouth at bedtime. [facility] lamoTRIgine 200 mg tablet 0 12-08 00:00: 00 Yes 200mg Take 200 mg by mouth at bedtime. [facility] QUEtiapine 100 mg tablet 0 12-08 00:00: 00 Yes 100mg Take 100 mg by mouth at bedtime. [facility] lamoTRIgine 200 mg tablet 0 12-08 00:00: 00 Yes 200mg Take 200 mg by mouth at bedtime. [facility] QUEtiapine 100 mg tablet 0 12-08 00:00: 00 Yes 100mg Take 100 mg by mouth at bedtime. [facility] lamoTRIgine 200 mg tablet 2020-0 12-08 00:00: 00 Yes 200mg Take 200 mg by mouth at bedtime. [facility] QUEtiapine 100 mg tablet 0 12-08 00:00: 00 Yes 100mg Take 100 mg by mouth at bedtime. [facility] lamoTRIgine 200 mg tablet 2020-0 25 00:00: 00 Yes 200mg Take 200 mg by mouth at bedtime. [facility] QUEtiapine 100 mg tablet 0 5-25 00:00: 00 Yes 100mg Take 100 mg by mouth at bedtime. [facility] SERTraline 50 mg tablet 0 5-25 00:00: 00 01-09 00:00 :00 No 50mg Take 50 mg by mouth at bedtime. [facility] SERTraline 50 mg tablet 0 5-25 00:00: 00 01-09 00:00 :00 No 50mg Take 50 mg by mouth at bedtime. [facility] SERTraline 50 mg tablet 0 5-25 00:00: 00 01-09 00:00 :00 No 50mg Take 50 mg by mouth at bedtime. [facility] SERTraline 50 mg tablet 0 5 00:00: 00 01-09 00:00 :00 No 50mg Take 50 mg by mouth at bedtime. [facility] SERTraline 50 mg tablet 0 5 00:00: 00 01-09 00:00 :00 No 50mg Take 50 mg by mouth at bedtime. [facility] SERTraline 50 mg tablet 0 5 00:00: 00 01-09 00:00 :00 No 50mg Take 50 mg by mouth at bedtime. [facility] SERTraline 50 mg tablet 0 5- 00:00: 00 01-09 00:00 :00 No 50mg Take 50 mg by mouth at bedtime. [facility] [facility] SERTraline 50 mg tablet 0 5-25 00:00: 00 01-09 00:00 :00 No 50mg Take 50 mg by mouth at bedtime. [facility] SERTraline 50 mg tablet 0 5-25 00:00: 00 01-09 00:00 :00 No 50mg Take 50 mg by mouth at bedtime. [facility] SERTraline 50 mg tablet 0 5-25 00:00: 00 01-09 00:00 :00 No 50mg Take 50 mg by mouth at bedtime[facility] SERTraline 50 mg tablet 12-08 00:00: 00 01-09 00:00 :00 No 50mg Take 50 mg by mouth at bedtime. [facility] oxyCODONE-a cetaminophe n 5-325 mg per tablet 12-02 00:00: 00 01-05 00:00 :00 No TAKE 1 TABLET BY MOUTH EVERY 4 HOURS NEEDED FOR PAIN [facility] oxyCODONE-a cetaminophe n 5-325 mg per tablet 12-02 00:00: 00 01-05 00:00 :00 No TAKE 1 TABLET BY MOUTH EVERY 4 HOURS NEEDED FOR PAIN [facility] oxyCODONE-a cetaminophe n 5-325 mg per tablet 12-02 00:00: 00 01-05 00:00 :00 No TAKE 1 TABLET BY MOUTH EVERY 4 HOURS NEEDED FOR PAIN [facility] oxyCODONE-a cetaminophe n 5-325 mg per tablet 12-02 00:00: 00 01-05 00:00 :00 No TAKE 1 TABLET BY MOUTH EVERY 4 HOURS NEEDED FOR PAIN [facility] oxyCODONE-a cetaminophe n 5-325 mg per tablet 12-02 00:00: 00 01-05 00:00 :00 No TAKE 1 TABLET BY MOUTH EVERY 4 HOURS NEEDED FOR PAIN [facility] oxyCODONE-a cetaminophe n 5-325 mg per tablet 12-02 00:00: 00 01-05 00:00 :00 No TAKE 1 TABLET BY MOUTH EVERY 4 HOURS NEEDED FOR PAIN [facility] oxyCODONE-a cetaminophe n 5-325 mg per tablet - 00:00: 00 01-05 00:00 :00 No TAKE 1 TABLET BY MOUTH EVERY 4 HOURS NEEDED FOR PAIN [facility] oxyCODONE-a cetaminophe n 5-325 mg per tablet 2021-0 5-19 00:00: 00 01-05 00:00 :00 No TAKE 1 TABLET BY MOUTH EVERY 4 HOURS NEEDED FOR PAIN [facility] Immunizations Ordered Immunization Name Filled Immunization Name Date Status Comments Source Influenza Virus Vaccine Quad IM, Preserv and ABX Free 6 MO-64 YRS 2022-04-08 00:00:00 Completed [facility] SARS-COV-2 COVID-19 VACCINE 18 YRS+, BIVALENT 0.5ML, IM, (MODERNA BOOSTER) 2022-04-08 00:00:00 Completed [facility] Influenza Virus Vaccine Quad IM, Preserv and ABX Free 6 MO-64 YRS 2022-04-08 00:00:00 Completed [facility] SARS-COV-2 COVID-19 VACCINE 18 YRS+, BIVALENT 0.5ML, IM, (MODERNA BOOSTER) 2022-04-08 00:00:00 Completed [facility] Influenza Virus Vaccine Quad IM, Preserv and ABX Free 6 MO-64 YRS 2022-04-08 00:00:00 Completed [facility] SARS-COV-2 COVID-19 VACCINE 18 YRS+, BIVALENT 0.5ML, IM, (MODERNA BOOSTER) 2022-04-08 00:00:00 Completed [facility] Influenza Virus Vaccine Quad IM, Preserv and ABX Free 6 MO-64 YRS 2022-04-08 00:00:00 Completed [facility] SARS-COV-2 COVID-19 VACCINE 18 YRS+, BIVALENT 0.5ML, IM, (MODERNA BOOSTER) 2022-04-08 00:00:00 Completed [facility] Influenza Virus Vaccine Quad IM, Preserv and ABX Free 6 MO-64 YRS 2022-04-08 00:00:00 Completed [facility] SARS-COV-2 COVID-19 VACCINE 18 YRS+, BIVALENT 0.5ML, IM, (MODERNA BOOSTER) 2022-04-08 00:00:00 Completed [facility] Influenza Virus Vaccine Quad IM, Preserv and ABX Free 6 MO-64 YRS 2022-04-08 00:00:00 Completed [facility] SARS-COV-2 COVID-19 VACCINE 18 YRS+, BIVALENT 0.5ML, IM, (MODERNA BOOSTER) 2022-04-08 00:00:00 Completed [facility] Influenza Virus Vaccine Quad IM, Preserv and ABX Free 6 MO-64 YRS 2022-04-08 00:00:00 Completed [facility] SARS-COV-2 COVID-19 VACCINE 18 YRS+, BIVALENT 0.5ML, IM, (MODERNA BOOSTER) 2022-04-08 00:00:00 Completed [facility] Influenza Virus Vaccine Quad IM, Preserv and ABX Free 6 MO-64 YRS 2022-04-08 00:00:00 Completed [facility] SARS-COV-2 COVID-19 VACCINE 12 YRS+, BIVALENT 0.5ML, IM, (MODERNA BOOSTER) 2022-04-08 00:00:00 Completed [facility] Influenza Virus Vaccine Quad IM, Preserv and ABX Free 6 MO-64 YRS 2022-04-08 00:00:00 Completed [facility] SARS-COV-2 COVID-19 VACCINE 12 YRS+, BIVALENT 0.5ML, IM, (MODERNA BOOSTER) 2022-04-08 00:00:00 Completed [facility] Influenza Virus Vaccine Quad IM, Preserv and ABX Free 6 MO-64 YRS 2022-04-08 00:00:00 Completed [facility] SARS-COV-2 COVID-19 VACCINE 12 YRS+, BIVALENT 0.5ML, IM, (MODERNA BOOSTER) 2022-04-08 00:00:00 Completed [facility] Influenza Virus Vaccine Quad IM, Preserv and ABX Free 6 MO-64 YRS 2022-04-08 00:00:00 Completed [facility] SARS-COV-2 COVID-19 VACCINE 12 YRS+, BIVALENT 0.5ML, IM, (MODERNA BOOSTER) 2022-04-08 00:00:00 Completed [facility] Influenza Virus Vaccine Quad IM, Preserv and ABX Free 6 MO-64 YRS 2022-04-08 00:00:00 Completed [facility] SARS-COV-2 COVID-19 VACCINE 12 YRS+, BIVALENT 0.5ML, IM, (MODERNA BOOSTER) 2022-04-08 00:00:00 Completed [facility] Influenza Virus Vaccine Quad IM, Preserv and ABX Free 6 MO-64 YRS 2022-04-08 00:00:00 Completed [facility] SARS-COV-2 COVID-19 VACCINE 12 YRS+, BIVALENT 0.5ML, IM, (MODERNA BOOSTER) 2022-04-08 00:00:00 Completed [facility] Influenza Virus Vaccine Quad IM, Preserv and ABX Free 6 MO-64 YRS 2022-04-08 00:00:00 Completed [facility] SARS-COV-2 COVID-19 VACCINE 12 YRS+, BIVALENT 0.5ML, IM, (MODERNA BOOSTER) 2022-04-08 00:00:00 Completed [facility] Influenza Virus Vaccine Quad IM, Preserv and ABX Free 6 MO-64 YRS 2022-04-08 00:00:00 Completed [facility] SARS-COV-2 COVID-19 VACCINE 12 YRS+, BIVALENT 0.5ML, IM, (MODERNA BOOSTER) 2022-04-08 00:00:00 Completed [facility] Influenza Virus Vaccine Quad IM, Preserv and ABX Free 6 MO-64 YRS 2022-04-08 00:00:00 Completed [facility] SARS-COV-2 COVID-19 VACCINE 12 YRS+, BIVALENT 0.5ML, IM, (MODERNA BOOSTER) 2022-04-08 00:00:00 Completed [facility] Influenza Virus Vaccine Quad IM, Preserv and ABX Free 6 MO-64 YRS 2022-04-08 00:00:00 Completed [facility] SARS-COV-2 COVID-19 VACCINE 12 YRS+, BIVALENT 0.5ML, IM, (MODERNA BOOSTER) 2022-04-08 00:00:00 Completed [facility] Influenza Virus Vaccine Quad IM, Preserv and ABX Free 6 MO-64 YRS 2022-04-08 00:00:00 Completed [facility] SARS-COV-2 COVID-19 VACCINE 12 YRS+, BIVALENT 0.5ML, IM, (MODERNA BOOSTER) 2022-04-08 00:00:00 Completed [facility] Influenza Virus Vaccine Quad IM, Preserv and ABX Free 6 MO-64 YRS 2022-04-08 00:00:00 Completed [facility] SARS-COV-2 COVID-19 VACCINE 12 YRS+, BIVALENT 0.5ML, IM, (MODERNA BOOSTER) 2022-04-08 00:00:00 Completed [facility] Influenza Virus Vaccine Quad IM, Preserv and ABX Free 6 MO-64 YRS 2022-04-08 00:00:00 Completed [facility] SARS-COV-2 COVID-19 VACCINE 12 YRS+, BIVALENT 0.5ML, IM, (MODERNA BOOSTER) 2022-04-08 00:00:00 Completed [facility] Influenza Virus Vaccine Quad IM, Preserv and ABX Free 6 MO-64 YRS 2022-04-08 00:00:00 Completed [facility] SARS-COV-2 COVID-19 VACCINE 12 YRS+, BIVALENT 0.5ML, IM, (MODERNA BOOSTER) 2022-04-08 00:00:00 Completed [facility] Influenza Virus Vaccine Quad IM, Preserv and ABX Free 6 MO-64 YRS 2022-04-08 00:00:00 Completed [facility] SARS-COV-2 COVID-19 VACCINE 12 YRS+, BIVALENT 0.5ML, IM, (MODERNA BOOSTER) 2022-04-08 00:00:00 Completed [facility] Influenza Virus Vaccine Quad IM, Preserv and ABX Free 6 MO-64 YRS 2022-04-08 00:00:00 Completed [facility] SARS-COV-2 COVID-19 VACCINE 12 YRS+, BIVALENT 0.5ML, IM, (MODERNA BOOSTER) 2022-04-08 00:00:00 Completed [facility] Influenza Virus Vaccine Quad IM, Preserv and ABX Free 6 MO-64 YRS 2022-04-08 00:00:00 Completed [facility] SARS-COV-2 COVID-19 VACCINE 12 YRS+, BIVALENT 0.5ML, IM, (MODERNA BOOSTER) 2022-04-08 00:00:00 Completed [facility] Influenza Virus Vaccine Quad IM, Preserv and ABX Free 6 MO-64 YRS 2022-04-08 00:00:00 Completed [facility] SARS-COV-2 COVID-19 VACCINE 12 YRS+, BIVALENT 0.5ML, IM, (MODERNA BOOSTER) 2022-04-08 00:00:00 Completed [facility] Influenza Virus Vaccine Quad IM, Preserv and ABX Free 6 MO-64 YRS 2022-04-08 00:00:00 Completed [facility] SARS-COV-2 COVID-19 VACCINE 12 YRS+, BIVALENT 0.5ML, IM, (MODERNA BOOSTER) 2022-04-08 00:00:00 Completed [facility] Influenza Virus Vaccine Quad IM, Preserv and ABX Free 6 MO-64 YRS 2022-04-08 00:00:00 Completed [facility] SARS-COV-2 COVID-19 VACCINE 12 YRS+, BIVALENT 0.5ML, IM, (MODERNA BOOSTER) 2022-04-08 00:00:00 Completed [facility] Influenza Virus Vaccine Quad IM, Preserv and ABX Free 6 MO-64 YRS 2022-04-08 00:00:00 Completed [facility] SARS-COV-2 COVID-19 VACCINE 12 YRS+, BIVALENT 0.5ML, IM, (MODERNA BOOSTER) 2022-04-08 00:00:00 Completed [facility] Influenza Virus Vaccine Quad IM, Preserv and ABX Free 6 MO-64 YRS 2022-04-08 00:00:00 Completed [facility] SARS-COV-2 COVID-19 VACCINE 12 YRS+, BIVALENT 0.5ML, IM, (MODERNA BOOSTER) 2022-04-08 00:00:00 Completed [facility] Influenza Virus Vaccine Quad IM, Preserv and ABX Free 6 MO-64 YRS 2022-04-08 00:00:00 Completed [facility] SARS-COV-2 COVID-19 VACCINE 12 YRS+, BIVALENT 0.5ML, IM, (MODERNA BOOSTER) 2022-04-08 00:00:00 Completed [facility] Influenza Virus Vaccine Quad IM, Preserv and ABX Free 6 MO-64 YRS 2022-04-08 00:00:00 Completed [facility] SARS-COV-2 COVID-19 VACCINE 12 YRS+, BIVALENT 0.5ML, IM, (MODERNA BOOSTER) 2022-04-08 00:00:00 Completed [facility] Influenza Virus Vaccine Quad IM, Preserv and ABX Free 6 MO-64 YRS 2022-04-08 00:00:00 Completed [facility] SARS-COV-2 COVID-19 VACCINE 12 YRS+, BIVALENT 0.5ML, IM, (MODERNA BOOSTER) 2022-04-08 00:00:00 Completed [facility] Influenza Virus Vaccine Quad IM, Preserv and ABX Free 6 MO-64 YRS 2022-04-08 00:00:00 Completed [facility] SARS-COV-2 COVID-19 VACCINE 12 YRS+, BIVALENT 0.5ML, IM, (MODERNA BOOSTER) 2022-04-08 00:00:00 Completed [facility] Influenza Virus Vaccine Quad IM, Preserv and ABX Free 6 MO-64 YRS 2022-04-08 00:00:00 Completed [facility] SARS-COV-2 COVID-19 VACCINE 12 YRS+, BIVALENT 0.5ML, IM, (MODERNA BOOSTER) 2022-04-08 00:00:00 Completed [facility] Influenza Virus Vaccine Quad IM, Preserv and ABX Free 6 MO-64 YRS 2022-04-08 00:00:00 Completed [facility] SARS-COV-2 COVID-19 VACCINE 12 YRS+, BIVALENT 0.5ML, IM, (MODERNA BOOSTER) 2022-04-08 00:00:00 Completed [facility] Influenza Virus Vaccine Quad IM, Preserv and ABX Free 6 MO-64 YRS 2022-04-08 00:00:00 Completed [facility] SARS-COV-2 COVID-19 VACCINE 12 YRS+, BIVALENT 0.5ML, IM, (MODERNA BOOSTER) 2022-04-08 00:00:00 Completed [facility] Influenza Virus Vaccine Quad IM, Preserv and ABX Free 6 MO-64 YRS 2022-04-08 00:00:00 Completed [facility] SARS-COV-2 COVID-19 VACCINE 12 YRS+, BIVALENT 0.5ML, IM, (MODERNA BOOSTER) 2022-04-08 00:00:00 Completed [facility] Influenza Virus Vaccine Quad IM, Preserv and ABX Free 6 MO-64 YRS 2022-04-08 00:00:00 Completed [facility] SARS-COV-2 COVID-19 VACCINE 12 YRS+, BIVALENT 0.5ML, IM, (MODERNA BOOSTER) 2022-04-08 00:00:00 Completed [facility] Influenza Virus Vaccine Quad IM, Preserv and ABX Free 6 MO-64 YRS 2022-04-08 00:00:00 Completed [facility] SARS-COV-2 COVID-19 VACCINE 12 YRS+, BIVALENT 0.5ML, IM, (MODERNA BOOSTER) 2022-04-08 00:00:00 Completed [facility] Influenza Virus Vaccine Quad IM, Preserv and ABX Free 6 MO-64 YRS 2022-04-08 00:00:00 Completed [facility] SARS-COV-2 COVID-19 VACCINE 12 YRS+, BIVALENT 0.5ML, IM, (MODERNA BOOSTER) 2022-04-08 00:00:00 Completed [facility] Influenza Virus Vaccine Quad IM, Preserv and ABX Free 6 MO-64 YRS 2022-04-08 00:00:00 Completed [facility] SARS-COV-2 COVID-19 VACCINE 12 YRS+, BIVALENT 0.5ML, IM, (MODERNA BOOSTER) 2022-04-08 00:00:00 Completed [facility] Influenza Virus Vaccine Quad IM, Preserv and ABX Free 6 MO-64 YRS 2022-04-08 00:00:00 Completed [facility] SARS-COV-2 COVID-19 VACCINE 12 YRS+, BIVALENT 0.5ML, IM, (MODERNA BOOSTER) 2022-04-08 00:00:00 Completed [facility] Influenza Virus Vaccine Quad IM, Preserv and ABX Free 6 MO-64 YRS 2022-04-08 00:00:00 Completed [facility] SARS-COV-2 COVID-19 VACCINE 12 YRS+, BIVALENT 0.5ML, IM, (MODERNA BOOSTER) 2022-04-08 00:00:00 Completed [facility] Influenza Virus Vaccine Quad IM, Preserv and ABX Free 6 MO-64 YRS 2022-04-08 00:00:00 Completed [facility] SARS-COV-2 COVID-19 VACCINE 12 YRS+, BIVALENT 0.5ML, IM, (MODERNA BOOSTER) 2022-04-08 00:00:00 Completed [facility] Influenza Virus Vaccine Quad IM, Preserv and ABX Free 6 MO-64 YRS 2022-04-08 00:00:00 Completed [facility] SARS-COV-2 COVID-19 VACCINE 12 YRS+, BIVALENT 0.5ML, IM, (MODERNA) 2022-04-08 00:00:00 Completed [facility] Influenza Virus Vaccine Quad IM, Preserv and ABX Free 6 MO-64 YRS 2022-04-08 00:00:00 Completed [facility] SARS-COV-2 COVID-19 VACCINE 12 YRS+, BIVALENT 0.5ML, IM, (MODERNA) 2022-04-08 00:00:00 Completed [facility] Influenza Virus Vaccine Quad IM, Preserv and ABX Free 6 MO-64 YRS 2022-04-08 00:00:00 Completed [facility] SARS-COV-2 COVID-19 VACCINE 12 YRS+, BIVALENT 0.5ML, IM, (MODERNA-BLUE TOP) 2022-04-08 00:00:00 Completed [facility] Influenza Virus Vaccine Quad IM, Preserv and ABX Free 6 MO-64 YRS 2022-04-08 00:00:00 Completed [facility] SARS-COV-2 COVID-19 VACCINE 12 YRS+, BIVALENT 0.5ML, IM, (MODERNA-BLUE TOP) 2022-04-08 00:00:00 Completed [facility] Influenza Virus Vaccine Quad IM, Preserv and ABX Free 6 MO-64 YRS 2022-04-08 00:00:00 Completed [facility] SARS-COV-2 COVID-19 VACCINE 12 YRS+, BIVALENT 0.5ML, IM, (MODERNA-BLUE TOP) 2022-04-08 00:00:00 Completed [facility] Influenza Virus Vaccine Quad IM, Preserv and ABX Free 6 MO-64 YRS 2022-04-08 00:00:00 Completed [facility] SARS-COV-2 COVID-19 VACCINE 12 YRS+, BIVALENT 0.5ML, IM, (MODERNA-BLUE TOP) 2022-04-08 00:00:00 Completed [facility] Influenza Virus Vaccine Quad IM, Preserv and ABX Free 6 MO-64 YRS 2022-04-08 00:00:00 Completed [facility] SARS-COV-2 COVID-19 VACCINE 12 YRS+, BIVALENT 0.5ML, IM, (MODERNA-BLUE TOP) 2022-04-08 00:00:00 Completed [facility] Influenza Virus Vaccine Quad IM, Preserv and ABX Free 6 MO-64 YRS 2022-04-08 00:00:00 Completed [facility] SARS-COV-2 COVID-19 VACCINE 12 YRS+, BIVALENT 0.5ML, IM, (MODERNA-BLUE TOP) 2022-04-08 00:00:00 Completed [facility] Influenza Virus Vaccine Quad IM, Preserv and ABX Free 6 MO-64 YRS 2022-04-08 00:00:00 Completed [facility] SARS-COV-2 COVID-19 VACCINE 12 YRS+, BIVALENT 0.5ML, IM, (MODERNA-BLUE TOP) 2022-04-08 00:00:00 Completed [facility] Influenza Virus Vaccine Quad IM, Preserv and ABX Free 6 MO-64 YRS 2022-04-08 00:00:00 Completed [facility] SARS-COV-2 COVID-19 VACCINE 12 YRS+, BIVALENT 0.5ML, IM, (MODERNA-BLUE TOP) 2022-04-08 00:00:00 Completed [facility] Influenza Virus Vaccine Quad IM, Preserv and ABX Free 6 MO-64 YRS 2022-04-08 00:00:00 Completed [facility] SARS-COV-2 COVID-19 VACCINE 12 YRS+, BIVALENT 0.5ML, IM, (MODERNA-BLUE TOP) 2022-04-08 00:00:00 Completed [facility] Influenza Virus Vaccine Quad IM, Preserv and ABX Free 6 MO-64 YRS 2022-04-08 00:00:00 Completed [facility] SARS-COV-2 COVID-19 VACCINE 12 YRS+, BIVALENT 0.5ML, IM, (MODERNA-BLUE TOP) 2022-04-08 00:00:00 Completed [facility] Influenza Virus Vaccine Quad IM, Preserv and ABX Free 6 MO-64 YRS 2022-04-08 00:00:00 Completed [facility] SARS-COV-2 COVID-19 VACCINE 12 YRS+, BIVALENT 0.5ML, IM, (MODERNA-BLUE TOP) 2022-04-08 00:00:00 Completed [facility] Influenza Virus Vaccine Quad IM, Preserv and ABX Free 6 MO-64 YRS 2022-04-08 00:00:00 Completed [facility] SARS-COV-2 COVID-19 VACCINE 12 YRS+, BIVALENT 0.5ML, IM, (MODERNA-BLUE TOP) 2022-04-08 00:00:00 Completed [facility] Influenza Virus Vaccine Quad IM, Preserv and ABX Free 6 MO-64 YRS 2022-04-08 00:00:00 Completed [facility] SARS-COV-2 COVID-19 VACCINE 12 YRS+, BIVALENT 0.5ML, IM, (MODERNA-BLUE TOP) 2022-04-08 00:00:00 Completed [facility] Influenza Virus Vaccine Quad IM, Preserv and ABX Free 6 MO-64 YRS 2022-04-08 00:00:00 Completed [facility] SARS-COV-2 COVID-19 VACCINE 12 YRS+, BIVALENT 0.5ML, IM, (MODERNA-BLUE TOP) 2022-04-08 00:00:00 Completed [facility] Influenza Virus Vaccine Quad IM, Preserv and ABX Free 6 MO-64 YRS 2022-04-08 00:00:00 Completed [facility] SARS-COV-2 COVID-19 VACCINE 12 YRS+, BIVALENT 0.5ML, IM, (MODERNA-BLUE TOP) 2022-04-08 00:00:00 Completed [facility] Influenza Virus Vaccine Quad IM, Preserv and ABX Free 6 MO-64 YRS 2022-04-08 00:00:00 Completed [facility] SARS-COV-2 COVID-19 VACCINE 12 YRS+, BIVALENT 0.5ML, IM, (MODERNA-BLUE TOP) 2022-04-08 00:00:00 Completed [facility] Influenza Virus Vaccine Quad IM, Preserv and ABX Free 6 MO-64 YRS 2022-04-08 00:00:00 Completed [facility] SARS-COV-2 COVID-19 VACCINE 12 YRS+, BIVALENT 0.5ML, IM, (MODERNA-BLUE TOP) 2022-04-08 00:00:00 Completed [facility] Influenza Virus Vaccine Quad IM, Preserv and ABX Free 6 MO-64 YRS (FLUCELVAX) 2022-04-08 00:00:00 Completed [facility] SARS-COV-2 COVID-19 VACCINE 12 YRS+, BIVALENT 0.5ML, IM, (MODERNA-BLUE TOP) 2022-04-08 00:00:00 Completed [facility] Influenza Virus Vaccine Quad IM, Preserv and ABX Free 6 MO-64 YRS (FLUCELVAX) 2022-04-08 00:00:00 Completed [facility] SARS-COV-2 COVID-19 VACCINE 12 YRS+, BIVALENT 0.5ML, IM, (MODERNA-BLUE TOP) 2022-04-08 00:00:00 Completed [facility] Influenza Virus Vaccine Quad IM, Preserv and ABX Free 6 MO-64 YRS (FLUCELVAX) 2022-04-08 00:00:00 Completed [facility] SARS-COV-2 COVID-19 VACCINE 12 YRS+, BIVALENT 0.5ML, IM, (MODERNA-BLUE TOP) 2022-04-08 00:00:00 Completed [facility] Influenza Virus Vaccine Quad IM, Preserv and ABX Free 6 MO-64 YRS (FLUCELVAX) 2022-04-08 00:00:00 Completed [facility] SARS-COV-2 COVID-19 VACCINE 12 YRS+, BIVALENT 0.5ML, IM, (MODERNA-BLUE TOP) 2022-04-08 00:00:00 Completed [facility] Influenza Virus Vaccine Quad IM, Preserv and ABX Free 6 MO-64 YRS (FLUCELVAX) 2022-04-08 00:00:00 Completed [facility] SARS-COV-2 COVID-19 VACCINE 12 YRS+, BIVALENT 0.5ML, IM, (MODERNA-BLUE TOP) 2022-04-08 00:00:00 Completed [facility] Influenza Virus Vaccine Quad IM, Preserv and ABX Free 6 MO-64 YRS (FLUCELVAX) 2022-04-08 00:00:00 Completed [facility] SARS-COV-2 COVID-19 VACCINE 12 YRS+, BIVALENT 0.5ML, IM, (MODERNA-BLUE TOP) 2022-04-08 00:00:00 Completed [facility] Influenza Virus Vaccine Quad IM, Preserv and ABX Free 6 MO-64 YRS (FLUCELVAX) 2022-04-08 00:00:00 Completed [facility] SARS-COV-2 COVID-19 VACCINE 12 YRS+, BIVALENT 0.5ML, IM, (MODERNA-BLUE TOP) 2022-04-08 00:00:00 Completed [facility] Influenza Virus Vaccine Quad IM, Preserv and ABX Free 6 MO-64 YRS (FLUCELVAX) 2022-04-08 00:00:00 Completed [facility] SARS-COV-2 COVID-19 VACCINE 12 YRS+, BIVALENT 0.5ML, IM, (MODERNA-BLUE TOP) 2022-04-08 00:00:00 Completed [facility] Pneumococcal 20 Conjugate, PCV20 (Prevnar 20) 2021-11-24 00:00:00 Completed [facility] Pneumococcal 20 Conjugate, PCV20 (Prevnar 20) 2021-11-24 00:00:00 Completed [facility] Pneumococcal 20 Conjugate, PCV20 (Prevnar 20) 2021-11-24 00:00:00 Completed [facility] Pneumococcal 20 Conjugate, PCV20 (Prevnar 20) 2021-11-24 00:00:00 Completed [facility] Pneumococcal 20 Conjugate, PCV20 (Prevnar 20) 2021-11-24 00:00:00 Completed [facility] Pneumococcal 20 Conjugate, PCV20 (Prevnar 20) 2021-11-24 00:00:00 Completed [facility] Pneumococcal 20 Conjugate, PCV20 (Prevnar 20) 2021-11-24 00:00:00 Completed [facility] Pneumococcal 20 Conjugate, PCV20 (Prevnar 20) 2021-11-24 00:00:00 Completed [facility] Pneumococcal 20 Conjugate, PCV20 (Prevnar 20) 2021-11-24 00:00:00 Completed [facility] Pneumococcal 20 Conjugate, PCV20 (Prevnar 20) 2021-11-24 00:00:00 Completed [facility] Pneumococcal 20 Conjugate, PCV20 (Prevnar 20) 2021-11-24 00:00:00 Completed [facility] Pneumococcal 20 Conjugate, PCV20 (Prevnar 20) 2021-11-24 00:00:00 Completed [facility] Pneumococcal 20 Conjugate, PCV20 (Prevnar 20) 2021-11-24 00:00:00 Completed [facility] Pneumococcal 20 Conjugate, PCV20 (Prevnar 20) 2021-11-24 00:00:00 Completed [facility] [facility] Conjugate, PCV20 (Prevnar 20) 2021-11-24 00:00:00 Completed [facility] Pneumococcal 20 Conjugate, PCV20 (Prevnar 20) 2021-11-24 00:00:00 Completed [facility] Pneumococcal 20 Conjugate, PCV20 (Prevnar 20) 2021-11-24 00:00:00 Completed [facility] Pneumococcal 20 Conjugate, PCV20 (Prevnar 20) 2021-11-24 00:00:00 Completed [facility] Pneumococcal 20 Conjugate, PCV20 (Prevnar 20) 2021-11-24 00:00:00 Completed [facility] Pneumococcal 20 Conjugate, PCV20 (Prevnar 20) 2021-11-24 00:00:00 Completed [facility] Pneumococcal 20 Conjugate, PCV20 (Prevnar 20) 2021-11-24 00:00:00 Completed [facility] Pneumococcal 20 Conjugate, PCV20 (Prevnar 20) 2021-11-24 00:00:00 Completed [facility] Pneumococcal 20 Conjugate, PCV20 (Prevnar 20) 2021-11-24 00:00:00 Completed [facility] Pneumococcal 20 Conjugate, PCV20 (Prevnar 20) 2021-11-24 00:00:00 Completed [facility] Pneumococcal 20 Conjugate, PCV20 (Prevnar 20) 2021-11-24 00:00:00 Completed [facility] Pneumococcal 20 Conjugate, PCV20 (Prevnar 20) 2021-11-24 00:00:00 Completed [facility] Pneumococcal 20 Conjugate, PCV20 (Prevnar 20) 2021-11-24 00:00:00 Completed [facility] Pneumococcal 20 Conjugate, PCV20 (Prevnar 20) 2021-11-24 00:00:00 Completed [facility] Pneumococcal 20 Conjugate, PCV20 (Prevnar 20) 2021-11-24 00:00:00 Completed [facility] Pneumococcal 20 Conjugate, PCV20 (Prevnar 20) 2021-11-24 00:00:00 Completed [facility] Pneumococcal 20 Conjugate, PCV20 (Prevnar 20) 2021-11-24 00:00:00 Completed [facility] Pneumococcal 20 Conjugate, PCV20 (Prevnar 20) 2021-11-24 00:00:00 Completed [facility] Pneumococcal 20 Conjugate, PCV20 (Prevnar 20) 2021-11-24 00:00:00 Completed [facility] Pneumococcal 20 Conjugate, PCV20 (Prevnar 20) 2021-11-24 00:00:00 Completed [facility] Pneumococcal 20 Conjugate, PCV20 (Prevnar 20) 2021-11-24 00:00:00 Completed [facility] Pneumococcal 20 Conjugate, PCV20 (Prevnar 20) 2021-11-24 00:00:00 Completed [facility] Pneumococcal 20 Conjugate, PCV20 (Prevnar 20) 2021-11-24 00:00:00 Completed [facility] Pneumococcal 20 Conjugate, PCV20 (Prevnar 20) 2021-11-24 00:00:00 Completed [facility] Pneumococcal 20 Conjugate, PCV20 (Prevnar 20) 2021-11-24 00:00:00 Completed [facility] Pneumococcal 20 Conjugate, PCV20 (Prevnar 20) 2021-11-24 00:00:00 Completed [facility] Pneumococcal 20 Conjugate, PCV20 (Prevnar 20) 2021-11-24 00:00:00 Completed [facility] Pneumococcal 20 Conjugate, PCV20 (Prevnar 20) 2021-11-24 00:00:00 Completed [facility] Pneumococcal 20 Conjugate, PCV20 (Prevnar 20) 2021-11-24 00:00:00 Completed [facility] Pneumococcal 20 Conjugate, PCV20 (Prevnar 20) 2021-11-24 00:00:00 Completed [facility] Pneumococcal 20 Conjugate, PCV20 (Prevnar 20) 2021-11-24 00:00:00 Completed [facility] Pneumococcal 20 Conjugate, PCV20 (Prevnar 20) 2021-11-24 00:00:00 Completed [facility] Pneumococcal 20 Conjugate, PCV20 (Prevnar 20) 2021-11-24 00:00:00 Completed [facility] Pneumococcal 20 Conjugate, PCV20 (Prevnar 20) 2021-11-24 00:00:00 Completed [facility] Pneumococcal 20 Conjugate, PCV20 (Prevnar 20) 2021-11-24 00:00:00 Completed [facility] Pneumococcal 20 Conjugate, PCV20 (Prevnar 20) 2021-11-24 00:00:00 Completed [facility] Pneumococcal 20 Conjugate, PCV20 (Prevnar 20) 2021-11-24 00:00:00 Completed [facility] Pneumococcal 20 Conjugate, PCV20 (Prevnar 20) 2021-11-24 00:00:00 Completed [facility] Pneumococcal 20 Conjugate, PCV20 (Prevnar 20) 2021-11-24 00:00:00 Completed [facility] Pneumococcal 20 Conjugate, PCV20 (Prevnar 20) 2021-11-24 00:00:00 Completed [facility] Pneumococcal 20 Conjugate, PCV20 (Prevnar 20) 2021-11-24 00:00:00 Completed [facility] Pneumococcal 20 Conjugate, PCV20 (Prevnar 20) 2021-11-24 00:00:00 Completed [facility] Pneumococcal 20 Conjugate, PCV20 (Prevnar 20) 2021-11-24 00:00:00 Completed [facility] Pneumococcal 20 Conjugate, PCV20 (Prevnar 20) 2021-11-24 00:00:00 Completed [facility] Pneumococcal 20 Conjugate, PCV20 (Prevnar 20) 2021-11-24 00:00:00 Completed [facility] Pneumococcal 20 Conjugate, PCV20 (Prevnar 20) 2021-11-24 00:00:00 Completed [facility] Pneumococcal 20 Conjugate, PCV20 (Prevnar 20) 2021-11-24 00:00:00 Completed [facility] Pneumococcal 20 Conjugate, PCV20 (Prevnar 20) 2021-11-24 00:00:00 Completed [facility] Pneumococcal 20 Conjugate, PCV20 (Prevnar 20) 2021-11-24 00:00:00 Completed [facility] Pneumococcal 20 Conjugate, PCV20 (Prevnar 20) 2021-11-24 00:00:00 Completed [facility] Pneumococcal 20 Conjugate, PCV20 (Prevnar 20) 2021-11-24 00:00:00 Completed [facility] Pneumococcal 20 Conjugate, PCV20 (Prevnar 20) 2021-11-24 00:00:00 Completed [facility] Pneumococcal 20 Conjugate, PCV20 (Prevnar 20) 2021-11-24 00:00:00 Completed [facility] Pneumococcal 20 Conjugate, PCV20 (Prevnar 20) 2021-11-24 00:00:00 Completed [facility] Pneumococcal 20 Conjugate, PCV20 (Prevnar 20) 2021-11-24 00:00:00 Completed [facility] Pneumococcal 20 Conjugate, PCV20 (Prevnar 20) 2021-11-24 00:00:00 Completed [facility] Pneumococcal 20 Conjugate, PCV20 (Prevnar 20) 2021-11-24 00:00:00 Completed [facility] Pneumococcal 20 Conjugate, PCV20 (Prevnar 20) 2021-11-24 00:00:00 Completed [facility] Pneumococcal 20 Conjugate, PCV20 (Prevnar 20) 2021-11-24 00:00:00 Completed [facility] Pneumococcal 20 Conjugate, PCV20 (Prevnar 20) 2021-11-24 00:00:00 Completed [facility] Pneumococcal 20 Conjugate, PCV20 (Prevnar 20) 2021-11-24 00:00:00 Completed [facility] SARS-COV-2 COVID-19 MODERNA 12+ YRS VACCINE 2021-05-11 00:00:00 Completed [facility] SARS-COV-2 COVID-19 MODERNA 12+ YRS VACCINE 2021-05-11 00:00:00 Completed [facility] SARS-COV-2 COVID-19 MODERNA 12+ YRS VACCINE 2021-05-11 00:00:00 Completed [facility] SARS-COV-2 COVID-19 MODERNA 12+ YRS VACCINE 2021-05-11 00:00:00 Completed [facility] SARS-COV-2 COVID-19 MODERNA 12+ YRS VACCINE 2021-05-11 00:00:00 Completed [facility] SARS-COV-2 COVID-19 MODERNA 12+ YRS VACCINE 2021-05-11 00:00:00 Completed [facility] SARS-COV-2 COVID-19 MODERNA 12+ YRS VACCINE 2021-05-11 00:00:00 Completed [facility] SARS-COV-2 COVID-19 MODERNA 12+ YRS VACCINE 2021-05-11 00:00:00 Completed [facility] SARS-COV-2 COVID-19 MODERNA 12+ YRS VACCINE 2021-05-11 00:00:00 Completed [facility] SARS-COV-2 COVID-19 MODERNA 12+ YRS VACCINE 2021-05-11 00:00:00 Completed [facility] SARS-COV-2 COVID-19 MODERNA 12+ YRS VACCINE 2021-05-11 00:00:00 Completed [facility] SARS-COV-2 COVID-19 MODERNA 12+ YRS VACCINE 2021-05-11 00:00:00 Completed [facility] SARS-COV-2 COVID-19 MODERNA 12+ YRS VACCINE 2021-05-11 00:00:00 Completed [facility] SARS-COV-2 COVID-19 MODERNA 12+ YRS VACCINE 2021-05-11 00:00:00 Completed [facility] SARS-COV-2 COVID-19 MODERNA 12+ YRS VACCINE 2021-05-11 00:00:00 Completed [facility] SARS-COV-2 COVID-19 MODERNA 12+ YRS VACCINE 2021-05-11 00:00:00 Completed [facility] SARS-COV-2 COVID-19 MODERNA 12+ YRS VACCINE 2021-05-11 00:00:00 Completed [facility] SARS-COV-2 COVID-19 MODERNA 12+ YRS VACCINE 2021-05-11 00:00:00 Completed [facility] SARS-COV-2 COVID-19 MODERNA 12+ YRS VACCINE 2021-05-11 00:00:00 Completed [facility] SARS-COV-2 COVID-19 MODERNA 12+ YRS VACCINE 2021-05-11 00:00:00 Completed [facility] SARS-COV-2 COVID-19 MODERNA 12+ YRS VACCINE 2021-05-11 00:00:00 Completed [facility] SARS-COV-2 COVID-19 MODERNA 12+ YRS VACCINE 2021-05-11 00:00:00 Completed [facility] SARS-COV-2 COVID-19 MODERNA 12+ YRS VACCINE 2021-05-11 00:00:00 Completed [facility] SARS-COV-2 COVID-19 MODERNA 12+ YRS VACCINE 2021-05-11 00:00:00 Completed [facility] SARS-COV-2 COVID-19 MODERNA 12+ YRS VACCINE 2021-05-11 00:00:00 Completed [facility] SARS-COV-2 COVID-19 MODERNA 12+ YRS VACCINE 2021-05-11 00:00:00 Completed [facility] SARS-COV-2 COVID-19 MODERNA 12+ YRS VACCINE 2021-05-11 00:00:00 Completed [facility] SARS-COV-2 COVID-19 MODERNA 12+ YRS VACCINE 2021-05-11 00:00:00 Completed [facility] SARS-COV-2 COVID-19 MODERNA 12+ YRS VACCINE 2021-05-11 00:00:00 Completed [facility] SARS-COV-2 COVID-19 MODERNA 12+ YRS VACCINE 2021-05-11 00:00:00 Completed [facility] SARS-COV-2 COVID-19 MODERNA 12+ YRS VACCINE 2021-05-11 00:00:00 Completed [facility] SARS-COV-2 COVID-19 MODERNA 12+ YRS VACCINE 2021-05-11 00:00:00 Completed [facility] SARS-COV-2 COVID-19 MODERNA 12+ YRS VACCINE 2021-05-11 00:00:00 Completed [facility] SARS-COV-2 COVID-19 MODERNA 12+ YRS VACCINE 2021-05-11 00:00:00 Completed [facility] SARS-COV-2 COVID-19 MODERNA 12+ YRS VACCINE 2021-05-11 00:00:00 Completed [facility] SARS-COV-2 COVID-19 MODERNA 12+ YRS VACCINE 2021-05-11 00:00:00 Completed [facility] SARS-COV-2 COVID-19 MODERNA 12+ YRS VACCINE 2021-05-11 00:00:00 Completed [facility] SARS-COV-2 COVID-19 MODERNA 12+ YRS VACCINE 2021-05-11 00:00:00 Completed [facility] SARS-COV-2 COVID-19 MODERNA 12+ YRS VACCINE 2021-05-11 00:00:00 Completed [facility] SARS-COV-2 COVID-19 MODERNA 12+ YRS VACCINE 2021-05-11 00:00:00 Completed [facility] SARS-COV-2 COVID-19 MODERNA 12+ YRS VACCINE 2021-05-11 00:00:00 Completed [facility] SARS-COV-2 COVID-19 MODERNA 12+ YRS VACCINE 2021-05-11 00:00:00 Completed [facility] SARS-COV-2 COVID-19 MODERNA 12+ YRS VACCINE 2021-05-11 00:00:00 Completed [facility] SARS-COV-2 COVID-19 MODERNA 12+ YRS VACCINE 2021-05-11 00:00:00 Completed [facility] SARS-COV-2 COVID-19 MODERNA 12+ YRS VACCINE 2021-05-11 00:00:00 Completed [facility] SARS-COV-2 COVID-19 MODERNA 12+ YRS VACCINE 2021-05-11 00:00:00 Completed [facility] SARS-COV-2 COVID-19 MODERNA 12+ YRS VACCINE 2021-05-11 00:00:00 Completed [facility] SARS-COV-2 COVID-19 MODERNA 12+ YRS VACCINE 2021-05-11 00:00:00 Completed [facility] SARS-COV-2 COVID-19 MODERNA 12+ YRS VACCINE 2021-05-11 00:00:00 Completed [facility] SARS-COV-2 COVID-19 MODERNA 12+ YRS VACCINE 2021-05-11 00:00:00 Completed [facility] SARS-COV-2 COVID-19 MODERNA 12+ YRS VACCINE 2021-05-11 00:00:00 Completed [facility] SARS-COV-2 COVID-19 MODERNA 12+ YRS VACCINE 2021-05-11 00:00:00 Completed [facility] SARS-COV-2 COVID-19 MODERNA 12+ YRS VACCINE 2021-05-11 00:00:00 Completed [facility] SARS-COV-2 COVID-19 MODERNA 12+ YRS VACCINE 2021-05-11 00:00:00 Completed [facility] SARS-COV-2 COVID-19 MODERNA 12+ YRS VACCINE 2021-05-11 00:00:00 Completed [facility] SARS-COV-2 COVID-19 MODERNA 12+ YRS VACCINE 2021-05-11 00:00:00 Completed [facility] SARS-COV-2 COVID-19 MODERNA 12+ YRS VACCINE 2021-05-11 00:00:00 Completed [facility] SARS-COV-2 COVID-19 MODERNA 12+ YRS VACCINE 2021-05-11 00:00:00 Completed [facility] SARS-COV-2 COVID-19 MODERNA 12+ YRS VACCINE 2021-05-11 00:00:00 Completed [facility] SARS-COV-2 COVID-19 MODERNA 12+ YRS VACCINE 2021-05-11 00:00:00 Completed [facility] SARS-COV-2 COVID-19 MODERNA 12+ YRS VACCINE 2021-05-11 00:00:00 Completed [facility] SARS-COV-2 COVID-19 MODERNA 12+ YRS VACCINE 2021-05-11 00:00:00 Completed [facility] SARS-COV-2 COVID-19 MODERNA 12+ YRS VACCINE 2021-05-11 00:00:00 Completed [facility] SARS-COV-2 COVID-19 MODERNA 12+ YRS VACCINE 2021-05-11 00:00:00 Completed [facility] SARS-COV-2 COVID-19 MODERNA 12+ YRS VACCINE 2021-05-11 00:00:00 Completed [facility] SARS-COV-2 COVID-19 MODERNA 12+ YRS VACCINE 2021-05-11 00:00:00 Completed [facility] SARS-COV-2 COVID-19 MODERNA 12+ YRS VACCINE 2021-05-11 00:00:00 Completed [facility] SARS-COV-2 COVID-19 MODERNA 12+ YRS VACCINE 2021-05-11 00:00:00 Completed [facility] SARS-COV-2 COVID-19 MODERNA 12+ YRS VACCINE 2021-05-11 00:00:00 Completed [facility] SARS-COV-2 COVID-19 MODERNA 12+ YRS VACCINE 2021-05-11 00:00:00 Completed [facility] SARS-COV-2 COVID-19 MODERNA 12+ YRS VACCINE 2021-05-11 00:00:00 Completed [facility] SARS-COV-2 COVID-19 MODERNA 12+ YRS VACCINE 2021-05-11 00:00:00 Completed [facility] SARS-COV-2 COVID-19 MODERNA 12+ YRS VACCINE 2021-05-11 00:00:00 Completed [facility] SARS-COV-2 COVID-19 MODERNA 12+ YRS VACCINE 2021-05-11 00:00:00 Completed [facility] SARS-COV-2 COVID-19 MODERNA 12+ YRS VACCINE 2021-05-11 00:00:00 Completed [facility] Influenza Virus Vaccine - Whole 2021-04-29 00:00:00 Completed [facility] Influenza Virus Vaccine - Whole 2021-04-29 00:00:00 Completed [facility] Influenza Virus Vaccine - Whole 2021-04-29 00:00:00 Completed [facility] Influenza Virus Vaccine - Whole 2021-04-29 00:00:00 Completed [facility] Influenza Virus Vaccine - Whole 2021-04-29 00:00:00 Completed [facility] Influenza Virus Vaccine - Whole 2021-04-29 00:00:00 Completed [facility] Influenza Virus Vaccine - Whole 2021-04-29 00:00:00 Completed [facility] Influenza Virus Vaccine - Whole 2021-04-29 00:00:00 Completed [facility] Influenza Virus Vaccine - Whole 2021-04-29 00:00:00 Completed [facility] Influenza Virus Vaccine - Whole 2021-04-29 00:00:00 Completed [facility] Influenza Virus Vaccine - Whole 2021-04-29 00:00:00 Completed [facility] Influenza Virus Vaccine - Whole 2021-04-29 00:00:00 Completed [facility] Influenza Virus Vaccine - Whole 2021-04-29 00:00:00 Completed [facility] Influenza Virus Vaccine - Whole 2021-04-29 00:00:00 Completed [facility] Influenza Virus Vaccine - Whole 2021-04-29 00:00:00 Completed [facility] Influenza Virus Vaccine - Whole 2021-04-29 00:00:00 Completed [facility] Influenza Virus Vaccine - Whole 2021-04-29 00:00:00 Completed [facility] Influenza Virus Vaccine - Whole 2021-04-29 00:00:00 Completed [facility] Influenza Virus Vaccine - Whole 2021-04-29 00:00:00 Completed [facility] Influenza Virus Vaccine - Whole 2021-04-29 00:00:00 Completed [facility] Influenza Virus Vaccine - Whole 2021-04-29 00:00:00 Completed [facility] Influenza Virus Vaccine - Whole 2021-04-29 00:00:00 Completed [facility] Influenza Virus Vaccine - Whole 2021-04-29 00:00:00 Completed [facility] Influenza Virus Vaccine - Whole 2021-04-29 00:00:00 Completed [facility] Influenza Virus Vaccine 2021-04-22 00:00:00 Completed [facility] Influenza Virus Vaccine 2021-04-22 00:00:00 Completed [facility] Influenza Virus Vaccine 2021-04-22 00:00:00 Completed [facility] Influenza Virus Vaccine 2021-04-22 00:00:00 Completed [facility] Influenza Virus Vaccine 2021-04-22 00:00:00 Completed [facility] Influenza Virus Vaccine 2021-04-22 00:00:00 Completed [facility] Influenza Virus Vaccine 2021-04-22 00:00:00 Completed [facility] Influenza Virus Vaccine 2021-04-22 00:00:00 Completed [facility] Influenza Virus Vaccine 2021-04-22 00:00:00 Completed [facility] Influenza Virus Vaccine 2021-04-22 00:00:00 Completed [facility] Influenza Virus Vaccine 2021-04-22 00:00:00 Completed [facility] Influenza Virus Vaccine 2021-04-22 00:00:00 Completed [facility] Influenza Virus Vaccine 2021-04-22 00:00:00 Completed [facility] Influenza Virus Vaccine 2021-04-22 00:00:00 Completed [facility] Influenza Virus Vaccine 2021-04-22 00:00:00 Completed [facility] Influenza Virus Vaccine 2021-04-22 00:00:00 Completed [facility] Influenza Virus Vaccine 2021-04-22 00:00:00 Completed [facility] Influenza Virus Vaccine 2021-04-22 00:00:00 Completed [facility] Influenza Virus Vaccine 2021-04-22 00:00:00 Completed [facility] Influenza Virus Vaccine 2021-04-22 00:00:00 Completed [facility] Influenza Virus Vaccine 2021-04-22 00:00:00 Completed [facility] Influenza Virus Vaccine 2021-04-22 00:00:00 Completed [facility] Influenza Virus Vaccine 2021-04-22 00:00:00 Completed [facility] Influenza Virus Vaccine 2021-04-22 00:00:00 Completed [facility] Influenza Virus Vaccine 2021-04-22 00:00:00 Completed [facility] Influenza Virus Vaccine 2021-04-22 00:00:00 Completed [facility] Influenza Virus Vaccine 2021-04-22 00:00:00 Completed [facility] Influenza Virus Vaccine 2021-04-22 00:00:00 Completed [facility] Influenza Virus Vaccine 2021-04-22 00:00:00 Completed [facility] Influenza Virus Vaccine 2021-04-22 00:00:00 Completed [facility] Influenza Virus Vaccine 2021-04-22 00:00:00 Completed [facility] Influenza Virus Vaccine 2021-04-22 00:00:00 Completed [facility] Influenza Virus Vaccine 2021-04-22 00:00:00 Completed [facility] Influenza Virus Vaccine 2021-04-22 00:00:00 Completed [facility] Influenza Virus Vaccine 2021-04-22 00:00:00 Completed [facility] Influenza Virus Vaccine 2021-04-22 00:00:00 Completed [facility] Influenza Virus Vaccine 2021-04-22 00:00:00 Completed [facility] Influenza Virus Vaccine 2021-04-22 00:00:00 Completed [facility] Influenza Virus Vaccine 2021-04-22 00:00:00 Completed [facility] Influenza Virus Vaccine 2021-04-22 00:00:00 Completed [facility] Influenza Virus Vaccine 2021-04-22 00:00:00 Completed [facility] Influenza Virus Vaccine 2021-04-22 00:00:00 Completed [facility] Influenza Virus Vaccine 2021-04-22 00:00:00 Completed [facility] Influenza Virus Vaccine 2021-04-22 00:00:00 Completed [facility] Influenza Virus Vaccine 2021-04-22 00:00:00 Completed [facility] Influenza Virus Vaccine 2021-04-22 00:00:00 Completed [facility] Influenza Virus Vaccine 2021-04-22 00:00:00 Completed [facility] Influenza Virus Vaccine 2021-04-22 00:00:00 Completed [facility] Influenza Virus Vaccine 2021-04-22 00:00:00 Completed [facility] Influenza Virus Vaccine 2021-04-22 00:00:00 Completed [facility] Influenza Virus Vaccine 2021-04-22 00:00:00 Completed [facility] Influenza Virus Vaccine 2021-04-22 00:00:00 Completed [facility] Influenza Virus Vaccine 2021-04-22 00:00:00 Completed [facility] Influenza Virus Vaccine 2021-04-22 00:00:00 Completed [facility] Influenza Virus Vaccine 2021-04-22 00:00:00 Completed [facility] Influenza Virus Vaccine 2021-04-22 00:00:00 Completed [facility] Influenza Virus Vaccine 2021-04-22 00:00:00 Completed [facility] Influenza Virus Vaccine 2021-04-22 00:00:00 Completed [facility] Influenza Virus Vaccine 2021-04-22 00:00:00 Completed [facility] Influenza Virus Vaccine 2021-04-22 00:00:00 Completed [facility] Influenza Virus Vaccine 2021-04-22 00:00:00 Completed [facility] Influenza Virus Vaccine 2021-04-22 00:00:00 Completed [facility] Influenza Virus Vaccine 2021-04-22 00:00:00 Completed [facility] Influenza Virus Vaccine 2021-04-22 00:00:00 Completed [facility] Influenza Virus Vaccine 2021-04-22 00:00:00 Completed [facility] Influenza Virus Vaccine 2021-04-22 00:00:00 Completed [facility] Influenza Virus Vaccine 2021-04-22 00:00:00 Completed [facility] Influenza Virus Vaccine 2021-04-22 00:00:00 Completed [facility] Influenza Virus Vaccine 2021-04-22 00:00:00 Completed [facility] Influenza Virus Vaccine 2021-04-22 00:00:00 Completed [facility] Influenza Virus Vaccine 2021-04-22 00:00:00 Completed [facility] Influenza Virus Vaccine 2021-04-22 00:00:00 Completed [facility] Influenza Virus Vaccine 2021-04-22 00:00:00 Completed [facility] Influenza Virus Vaccine 2021-04-22 00:00:00 Completed [facility] Influenza Virus Vaccine 2021-04-22 00:00:00 Completed [facility] SARS-COV-2 COVID-19 MODERNA 12+ YRS VACCINE 2020-11-05 00:00:00 Completed [facility] SARS-COV-2 COVID-19 MODERNA 12+ YRS VACCINE 2020-11-05 00:00:00 Completed [facility] SARS-COV-2 COVID-19 MODERNA 12+ YRS VACCINE 2020-11-05 00:00:00 Completed [facility] SARS-COV-2 COVID-19 MODERNA 12+ YRS VACCINE 2020-11-05 00:00:00 Completed [facility] SARS-COV-2 COVID-19 MODERNA 12+ YRS VACCINE 2020-11-05 00:00:00 Completed [facility] SARS-COV-2 COVID-19 MODERNA 12+ YRS VACCINE 2020-11-05 00:00:00 Completed [facility] SARS-COV-2 COVID-19 MODERNA 12+ YRS VACCINE 2020-11-05 00:00:00 Completed [facility] SARS-COV-2 COVID-19 MODERNA 12+ YRS VACCINE 2020-11-05 00:00:00 Completed [facility] SARS-COV-2 COVID-19 MODERNA 12+ YRS VACCINE 2020-11-05 00:00:00 Completed [facility] SARS-COV-2 COVID-19 MODERNA 12+ YRS VACCINE 2020-11-05 00:00:00 Completed [facility] SARS-COV-2 COVID-19 MODERNA 12+ YRS VACCINE 2020-11-05 00:00:00 Completed [facility] SARS-COV-2 COVID-19 MODERNA 12+ YRS VACCINE 2020-11-05 00:00:00 Completed [facility] SARS-COV-2 COVID-19 MODERNA 12+ YRS VACCINE 2020-11-05 00:00:00 Completed [facility] SARS-COV-2 COVID-19 MODERNA 12+ YRS VACCINE 2020-11-05 00:00:00 Completed [facility] SARS-COV-2 COVID-19 MODERNA 12+ YRS VACCINE 2020-11-05 00:00:00 Completed [facility] SARS-COV-2 COVID-19 MODERNA 12+ YRS VACCINE 2020-11-05 00:00:00 Completed [facility] SARS-COV-2 COVID-19 MODERNA 12+ YRS VACCINE 2020-11-05 00:00:00 Completed [facility] SARS-COV-2 COVID-19 MODERNA 12+ YRS VACCINE 2020-11-05 00:00:00 Completed [facility] SARS-COV-2 COVID-19 MODERNA 12+ YRS VACCINE 2020-11-05 00:00:00 Completed [facility] SARS-COV-2 COVID-19 MODERNA 12+ YRS VACCINE 2020-11-05 00:00:00 Completed [facility] SARS-COV-2 COVID-19 MODERNA 12+ YRS VACCINE 2020-11-05 00:00:00 Completed [facility] SARS-COV-2 COVID-19 MODERNA 12+ YRS VACCINE 2020-11-05 00:00:00 Completed [facility] SARS-COV-2 COVID-19 MODERNA 12+ YRS VACCINE 2020-11-05 00:00:00 Completed [facility] SARS-COV-2 COVID-19 MODERNA 12+ YRS VACCINE 2020-11-05 00:00:00 Completed [facility] SARS-COV-2 COVID-19 MODERNA 12+ YRS VACCINE 2020-11-05 00:00:00 Completed [facility] SARS-COV-2 COVID-19 MODERNA 12+ YRS VACCINE 2020-11-05 00:00:00 Completed [facility] SARS-COV-2 COVID-19 MODERNA 12+ YRS VACCINE 2020-11-05 00:00:00 Completed [facility] SARS-COV-2 COVID-19 MODERNA 12+ YRS VACCINE 2020-11-05 00:00:00 Completed [facility] SARS-COV-2 COVID-19 MODERNA 12+ YRS VACCINE 2020-11-05 00:00:00 Completed [facility] SARS-COV-2 COVID-19 MODERNA 12+ YRS VACCINE 2020-11-05 00:00:00 Completed [facility] SARS-COV-2 COVID-19 MODERNA 12+ YRS VACCINE 2020-11-05 00:00:00 Completed [facility] SARS-COV-2 COVID-19 MODERNA 12+ YRS VACCINE 2020-11-05 00:00:00 Completed [facility] SARS-COV-2 COVID-19 MODERNA 12+ YRS VACCINE 2020-11-05 00:00:00 Completed [facility] SARS-COV-2 COVID-19 MODERNA 12+ YRS VACCINE 2020-11-05 00:00:00 Completed [facility] SARS-COV-2 COVID-19 MODERNA 12+ YRS VACCINE 2020-11-05 00:00:00 Completed [facility] SARS-COV-2 COVID-19 MODERNA 12+ YRS VACCINE 2020-11-05 00:00:00 Completed [facility] SARS-COV-2 COVID-19 MODERNA 12+ YRS VACCINE 2020-11-05 00:00:00 Completed [facility] SARS-COV-2 COVID-19 MODERNA 12+ YRS VACCINE 2020-11-05 00:00:00 Completed [facility] SARS-COV-2 COVID-19 MODERNA 12+ YRS VACCINE 2020-11-05 00:00:00 Completed [facility] SARS-COV-2 COVID-19 MODERNA 12+ YRS VACCINE 2020-11-05 00:00:00 Completed [facility] SARS-COV-2 COVID-19 MODERNA 12+ YRS VACCINE 2020-11-05 00:00:00 Completed [facility] SARS-COV-2 COVID-19 MODERNA 12+ YRS VACCINE 2020-11-05 00:00:00 Completed [facility] SARS-COV-2 COVID-19 MODERNA 12+ YRS VACCINE 2020-11-05 00:00:00 Completed [facility] SARS-COV-2 COVID-19 MODERNA 12+ YRS VACCINE 2020-11-05 00:00:00 Completed [facility] SARS-COV-2 COVID-19 MODERNA 12+ YRS VACCINE 2020-11-05 00:00:00 Completed [facility] SARS-COV-2 COVID-19 MODERNA 12+ YRS VACCINE 2020-11-05 00:00:00 Completed [facility] SARS-COV-2 COVID-19 MODERNA 12+ YRS VACCINE 2020-11-05 00:00:00 Completed [facility] SARS-COV-2 COVID-19 MODERNA 12+ YRS VACCINE 2020-11-05 00:00:00 Completed [facility] SARS-COV-2 COVID-19 MODERNA 12+ YRS VACCINE 2020-11-05 00:00:00 Completed [facility] SARS-COV-2 COVID-19 MODERNA 12+ YRS VACCINE 2020-11-05 00:00:00 Completed [facility] SARS-COV-2 COVID-19 MODERNA 12+ YRS VACCINE 2020-11-05 00:00:00 Completed [facility] SARS-COV-2 COVID-19 MODERNA 12+ YRS VACCINE 2020-11-05 00:00:00 Completed [facility] SARS-COV-2 COVID-19 MODERNA 12+ YRS VACCINE 2020-11-05 00:00:00 Completed [facility] SARS-COV-2 COVID-19 MODERNA 12+ YRS VACCINE 2020-11-05 00:00:00 Completed [facility] SARS-COV-2 COVID-19 MODERNA 12+ YRS VACCINE 2020-11-05 00:00:00 Completed [facility] SARS-COV-2 COVID-19 MODERNA 12+ YRS VACCINE 2020-11-05 00:00:00 Completed [facility] SARS-COV-2 COVID-19 MODERNA 12+ YRS VACCINE 2020-11-05 00:00:00 Completed [facility] SARS-COV-2 COVID-19 MODERNA 12+ YRS VACCINE 2020-11-05 00:00:00 Completed [facility] SARS-COV-2 COVID-19 MODERNA 12+ YRS VACCINE 2020-11-05 00:00:00 Completed [facility] SARS-COV-2 COVID-19 MODERNA 12+ YRS VACCINE 2020-11-05 00:00:00 Completed [facility] SARS-COV-2 COVID-19 MODERNA 12+ YRS VACCINE 2020-11-05 00:00:00 Completed [facility] SARS-COV-2 COVID-19 MODERNA 12+ YRS VACCINE 2020-11-05 00:00:00 Completed [facility] SARS-COV-2 COVID-19 MODERNA 12+ YRS VACCINE 2020-11-05 00:00:00 Completed [facility] SARS-COV-2 COVID-19 MODERNA 12+ YRS VACCINE 2020-11-05 00:00:00 Completed [facility] SARS-COV-2 COVID-19 MODERNA 12+ YRS VACCINE 2020-11-05 00:00:00 Completed [facility] SARS-COV-2 COVID-19 MODERNA 12+ YRS VACCINE 2020-11-05 00:00:00 Completed [facility] SARS-COV-2 COVID-19 MODERNA 12+ YRS VACCINE 2020-11-05 00:00:00 Completed [facility] SARS-COV-2 COVID-19 MODERNA 12+ YRS VACCINE 2020-11-05 00:00:00 Completed [facility] SARS-COV-2 COVID-19 MODERNA 12+ YRS VACCINE 2020-11-05 00:00:00 Completed [facility] SARS-COV-2 COVID-19 MODERNA 12+ YRS VACCINE 2020-11-05 00:00:00 Completed [facility] SARS-COV-2 COVID-19 MODERNA 12+ YRS VACCINE 2020-11-05 00:00:00 Completed [facility] SARS-COV-2 COVID-19 MODERNA 12+ YRS VACCINE 2020-11-05 00:00:00 Completed [facility] SARS-COV-2 COVID-19 MODERNA 12+ YRS VACCINE 2020-11-05 00:00:00 Completed [facility] SARS-COV-2 COVID-19 MODERNA 12+ YRS VACCINE 2020-11-05 00:00:00 Completed [facility] SARS-COV-2 COVID-19 MODERNA 12+ YRS VACCINE 2020-11-05 00:00:00 Completed [facility] SARS-COV-2 COVID-19 MODERNA 12+ YRS VACCINE 2020-10-08 00:00:00 Completed [facility] SARS-COV-2 COVID-19 MODERNA 12+ YRS VACCINE 2020-10-08 00:00:00 Completed [facility] SARS-COV-2 COVID-19 MODERNA 12+ YRS VACCINE 2020-10-08 00:00:00 Completed [facility] SARS-COV-2 COVID-19 MODERNA 12+ YRS VACCINE 2020-10-08 00:00:00 Completed [facility] SARS-COV-2 COVID-19 MODERNA 12+ YRS VACCINE 2020-10-08 00:00:00 Completed [facility] SARS-COV-2 COVID-19 MODERNA 12+ YRS VACCINE 2020-10-08 00:00:00 Completed [facility] SARS-COV-2 COVID-19 MODERNA 12+ YRS VACCINE 2020-10-08 00:00:00 Completed [facility] SARS-COV-2 COVID-19 MODERNA 12+ YRS VACCINE 2020-10-08 00:00:00 Completed [facility] SARS-COV-2 COVID-19 MODERNA 12+ YRS VACCINE 2020-10-08 00:00:00 Completed [facility] SARS-COV-2 COVID-19 MODERNA 12+ YRS VACCINE 2020-10-08 00:00:00 Completed [facility] SARS-COV-2 COVID-19 MODERNA 12+ YRS VACCINE 2020-10-08 00:00:00 Completed [facility] SARS-COV-2 COVID-19 MODERNA 12+ YRS VACCINE 2020-10-08 00:00:00 Completed [facility] SARS-COV-2 COVID-19 MODERNA 12+ YRS VACCINE 2020-10-08 00:00:00 Completed [facility] SARS-COV-2 COVID-19 MODERNA 12+ YRS VACCINE 2020-10-08 00:00:00 Completed [facility] SARS-COV-2 COVID-19 MODERNA 12+ YRS VACCINE 2020-10-08 00:00:00 Completed [facility] SARS-COV-2 COVID-19 MODERNA 12+ YRS VACCINE 2020-10-08 00:00:00 Completed [facility] SARS-COV-2 COVID-19 MODERNA 12+ YRS VACCINE 2020-10-08 00:00:00 Completed [facility] SARS-COV-2 COVID-19 MODERNA 12+ YRS VACCINE 2020-10-08 00:00:00 Completed [facility] SARS-COV-2 COVID-19 MODERNA 12+ YRS VACCINE 2020-10-08 00:00:00 Completed [facility] SARS-COV-2 COVID-19 MODERNA 12+ YRS VACCINE 2020-10-08 00:00:00 Completed [facility] SARS-COV-2 COVID-19 MODERNA 12+ YRS VACCINE 2020-10-08 00:00:00 Completed [facility] SARS-COV-2 COVID-19 MODERNA 12+ YRS VACCINE 2020-10-08 00:00:00 Completed [facility] SARS-COV-2 COVID-19 MODERNA 12+ YRS VACCINE 2020-10-08 00:00:00 Completed [facility] SARS-COV-2 COVID-19 MODERNA 12+ YRS VACCINE 2020-10-08 00:00:00 Completed [facility] SARS-COV-2 COVID-19 MODERNA 12+ YRS VACCINE 2020-10-08 00:00:00 Completed [facility] SARS-COV-2 COVID-19 MODERNA 12+ YRS VACCINE 2020-10-08 00:00:00 Completed [facility] SARS-COV-2 COVID-19 MODERNA 12+ YRS VACCINE 2020-10-08 00:00:00 Completed [facility] SARS-COV-2 COVID-19 MODERNA 12+ YRS VACCINE 2020-10-08 00:00:00 Completed [facility] SARS-COV-2 COVID-19 MODERNA 12+ YRS VACCINE 2020-10-08 00:00:00 Completed [facility] SARS-COV-2 COVID-19 MODERNA 12+ YRS VACCINE 2020-10-08 00:00:00 Completed [facility] SARS-COV-2 COVID-19 MODERNA 12+ YRS VACCINE 2020-10-08 00:00:00 Completed [facility] SARS-COV-2 COVID-19 MODERNA 12+ YRS VACCINE 2020-10-08 00:00:00 Completed [facility] SARS-COV-2 COVID-19 MODERNA 12+ YRS VACCINE 2020-10-08 00:00:00 Completed [facility] SARS-COV-2 COVID-19 MODERNA 12+ YRS VACCINE 2020-10-08 00:00:00 Completed [facility] SARS-COV-2 COVID-19 MODERNA 12+ YRS VACCINE 2020-10-08 00:00:00 Completed [facility] SARS-COV-2 COVID-19 MODERNA 12+ YRS VACCINE 2020-10-08 00:00:00 Completed [facility] SARS-COV-2 COVID-19 MODERNA 12+ YRS VACCINE 2020-10-08 00:00:00 Completed [facility] SARS-COV-2 COVID-19 MODERNA 12+ YRS VACCINE 2020-10-08 00:00:00 Completed [facility] SARS-COV-2 COVID-19 MODERNA 12+ YRS VACCINE 2020-10-08 00:00:00 Completed [facility] SARS-COV-2 COVID-19 MODERNA 12+ YRS VACCINE 2020-10-08 00:00:00 Completed [facility] SARS-COV-2 COVID-19 MODERNA 12+ YRS VACCINE 2020-10-08 00:00:00 Completed [facility] SARS-COV-2 COVID-19 MODERNA 12+ YRS VACCINE 2020-10-08 00:00:00 Completed [facility] SARS-COV-2 COVID-19 MODERNA 12+ YRS VACCINE 2020-10-08 00:00:00 Completed [facility] SARS-COV-2 COVID-19 MODERNA 12+ YRS VACCINE 2020-10-08 00:00:00 Completed [facility] SARS-COV-2 COVID-19 MODERNA 12+ YRS VACCINE 2020-10-08 00:00:00 Completed [facility] SARS-COV-2 COVID-19 MODERNA 12+ YRS VACCINE 2020-10-08 00:00:00 Completed [facility] SARS-COV-2 COVID-19 MODERNA 12+ YRS VACCINE 2020-10-08 00:00:00 Completed [facility] SARS-COV-2 COVID-19 MODERNA 12+ YRS VACCINE 2020-10-08 00:00:00 Completed [facility] SARS-COV-2 COVID-19 MODERNA 12+ YRS VACCINE 2020-10-08 00:00:00 Completed [facility] SARS-COV-2 COVID-19 MODERNA 12+ YRS VACCINE 2020-10-08 00:00:00 Completed [facility] SARS-COV-2 COVID-19 MODERNA 12+ YRS VACCINE 2020-10-08 00:00:00 Completed [facility] SARS-COV-2 COVID-19 MODERNA 12+ YRS VACCINE 2020-10-08 00:00:00 Completed [facility] SARS-COV-2 COVID-19 MODERNA 12+ YRS VACCINE 2020-10-08 00:00:00 Completed [facility] SARS-COV-2 COVID-19 MODERNA 12+ YRS VACCINE 2020-10-08 00:00:00 Completed [facility] SARS-COV-2 COVID-19 MODERNA 12+ YRS VACCINE 2020-10-08 00:00:00 Completed [facility] SARS-COV-2 COVID-19 MODERNA 12+ YRS VACCINE 2020-10-08 00:00:00 Completed [facility] SARS-COV-2 COVID-19 MODERNA 12+ YRS VACCINE 2020-10-08 00:00:00 Completed [facility] SARS-COV-2 COVID-19 MODERNA 12+ YRS VACCINE 2020-10-08 00:00:00 Completed [facility] SARS-COV-2 COVID-19 MODERNA 12+ YRS VACCINE 2020-10-08 00:00:00 Completed [facility] SARS-COV-2 COVID-19 MODERNA 12+ YRS VACCINE 2020-10-08 00:00:00 Completed [facility] SARS-COV-2 COVID-19 MODERNA 12+ YRS VACCINE 2020-10-08 00:00:00 Completed [facility] SARS-COV-2 COVID-19 MODERNA 12+ YRS VACCINE 2020-10-08 00:00:00 Completed [facility] SARS-COV-2 COVID-19 MODERNA 12+ YRS VACCINE 2020-10-08 00:00:00 Completed [facility] SARS-COV-2 COVID-19 MODERNA 12+ YRS VACCINE 2020-10-08 00:00:00 Completed [facility] SARS-COV-2 COVID-19 MODERNA 12+ YRS VACCINE 2020-10-08 00:00:00 Completed [facility] SARS-COV-2 COVID-19 MODERNA 12+ YRS VACCINE 2020-10-08 00:00:00 Completed [facility] SARS-COV-2 COVID-19 MODERNA 12+ YRS VACCINE 2020-10-08 00:00:00 Completed [facility] SARS-COV-2 COVID-19 MODERNA 12+ YRS VACCINE 2020-10-08 00:00:00 Completed [facility] SARS-COV-2 COVID-19 MODERNA 12+ YRS VACCINE 2020-10-08 00:00:00 Completed [facility] SARS-COV-2 COVID-19 MODERNA 12+ YRS VACCINE 2020-10-08 00:00:00 Completed [facility] SARS-COV-2 COVID-19 MODERNA 12+ YRS VACCINE 2020-10-08 00:00:00 Completed [facility] SARS-COV-2 COVID-19 MODERNA 12+ YRS VACCINE 2020-10-08 00:00:00 Completed [facility] SARS-COV-2 COVID-19 MODERNA 12+ YRS VACCINE 2020-10-08 00:00:00 Completed [facility] SARS-COV-2 COVID-19 MODERNA 12+ YRS VACCINE 2020-10-08 00:00:00 Completed [facility] SARS-COV-2 COVID-19 MODERNA 12+ YRS VACCINE 2020-10-08 00:00:00 Completed [facility] Zoster Vaccine Recombinant 2018-12-28 00:00:00 Completed [facility] Zoster Vaccine Recombinant 2018-12-28 00:00:00 Completed [facility] Zoster Vaccine Recombinant 2018-12-28 00:00:00 Completed [facility] Zoster Vaccine Recombinant 2018-12-28 00:00:00 Completed [facility] Zoster Vaccine Recombinant 2018-12-28 00:00:00 Completed [facility] Zoster Vaccine Recombinant 2018-12-28 00:00:00 Completed [facility] Zoster Vaccine Recombinant 2018-12-28 00:00:00 Completed [facility] Zoster Vaccine Recombinant 2018-12-28 00:00:00 Completed [facility] Zoster Vaccine Recombinant 2018-12-28 00:00:00 Completed [facility] Zoster Vaccine Recombinant 2018-12-28 00:00:00 Completed [facility] Zoster Vaccine Recombinant 2018-12-28 00:00:00 Completed [facility] Zoster Vaccine Recombinant 2018-12-28 00:00:00 Completed [facility] Zoster Vaccine Recombinant 2018-12-28 00:00:00 Completed [facility] Zoster Vaccine Recombinant 2018-12-28 00:00:00 Completed [facility] Zoster Vaccine Recombinant 2018-12-28 00:00:00 Completed [facility] Zoster Vaccine Recombinant 2018-12-28 00:00:00 Completed [facility] Zoster Vaccine Recombinant 2018-12-28 00:00:00 Completed [facility] Zoster Vaccine Recombinant 2018-12-28 00:00:00 Completed [facility] Zoster Vaccine Recombinant 2018-12-28 00:00:00 Completed [facility] Zoster Vaccine Recombinant 2018-12-28 00:00:00 Completed [facility] Zoster Vaccine Recombinant 2018-12-28 00:00:00 Completed [facility] Zoster Vaccine Recombinant 2018-12-28 00:00:00 Completed [facility] Zoster Vaccine Recombinant 2018-12-28 00:00:00 Completed [facility] Zoster Vaccine Recombinant 2018-12-28 00:00:00 Completed [facility] Zoster Vaccine Recombinant 2018-10-29 00:00:00 Completed [facility] Zoster Vaccine Recombinant 2018-10-29 00:00:00 Completed [facility] Zoster Vaccine Recombinant 2018-10-29 00:00:00 Completed [facility] Zoster Vaccine Recombinant 2018-10-29 00:00:00 Completed [facility] Zoster Vaccine Recombinant 2018-10-29 00:00:00 Completed [facility] Zoster Vaccine Recombinant 2018-10-29 00:00:00 Completed [facility] Zoster Vaccine Recombinant 2018-10-29 00:00:00 Completed [facility] Zoster Vaccine Recombinant 2018-10-29 00:00:00 Completed [facility] Zoster Vaccine Recombinant 2018-10-29 00:00:00 Completed [facility] Zoster Vaccine Recombinant 2018-10-29 00:00:00 Completed [facility] Zoster Vaccine Recombinant 2018-10-29 00:00:00 Completed [facility] Zoster Vaccine Recombinant 2018-10-29 00:00:00 Completed [facility] Zoster Vaccine Recombinant 2018-10-29 00:00:00 Completed [facility] Zoster Vaccine Recombinant 2018-10-29 00:00:00 Completed [facility] Zoster Vaccine Recombinant 2018-10-29 00:00:00 Completed [facility] Zoster Vaccine Recombinant 2018-10-29 00:00:00 Completed [facility] Zoster Vaccine Recombinant 2018-10-29 00:00:00 Completed [facility] Zoster Vaccine Recombinant 2018-10-29 00:00:00 Completed [facility] Zoster Vaccine Recombinant 2018-10-29 00:00:00 Completed [facility] Zoster Vaccine Recombinant 2018-10-29 00:00:00 Completed [facility] Zoster Vaccine Recombinant 2018-10-29 00:00:00 Completed [facility] Zoster Vaccine Recombinant 2018-10-29 00:00:00 Completed [facility] Zoster Vaccine Recombinant 2018-10-29 00:00:00 Completed [facility] Zoster Vaccine Recombinant 2018-10-29 00:00:00 Completed [facility] DT/Tetanus 2014-01-29 00:00:00 Completed [facility] DT/Tetanus 2014-01-29 00:00:00 Completed [facility] DT/Tetanus 2014-01-29 00:00:00 Completed [facility] DT/Tetanus 2014-01-29 00:00:00 Completed [facility] DT/Tetanus 2014-01-29 00:00:00 Completed [facility] DT/Tetanus 2014-01-29 00:00:00 Completed [facility] DT/Tetanus 2014-01-29 00:00:00 Completed [facility] DT/Tetanus 2014-01-29 00:00:00 Completed [facility] DT/Tetanus 2014-01-29 00:00:00 Completed [facility] DT/Tetanus 2014-01-29 00:00:00 Completed [facility] DT/Tetanus 2014-01-29 00:00:00 Completed [facility] DT/Tetanus 2014-01-29 00:00:00 Completed [facility] DT/Tetanus 2014-01-29 00:00:00 Completed [facility] DT/Tetanus 2014-01-29 00:00:00 Completed [facility] DT/Tetanus 2014-01-29 00:00:00 Completed [facility] DT/Tetanus 2014-01-29 00:00:00 Completed [facility] DT/Tetanus 2014-01-29 00:00:00 Completed [facility] DT/Tetanus 2014-01-29 00:00:00 Completed [facility] DT/Tetanus 2014-01-29 00:00:00 Completed [facility] DT/Tetanus 2014-01-29 00:00:00 Completed [facility] DT/Tetanus 2014-01-29 00:00:00 Completed [facility] DT/Tetanus 2014-01-29 00:00:00 Completed [facility] DT/Tetanus 2014-01-29 00:00:00 Completed [facility] DT/Tetanus 2014-01-29 00:00:00 Completed [facility] DT/Tetanus 2014-01-29 00:00:00 Completed [facility] DT/Tetanus 2014-01-29 00:00:00 Completed [facility] DT/Tetanus 2014-01-29 00:00:00 Completed [facility] DT/Tetanus 2014-01-29 00:00:00 Completed [facility] DT/Tetanus 2014-01-29 00:00:00 Completed [facility] DT/Tetanus 2014-01-29 00:00:00 Completed [facility] DT/Tetanus 2014-01-29 00:00:00 Completed [facility] DT/Tetanus 2014-01-29 00:00:00 Completed [facility] DT/Tetanus 2014-01-29 00:00:00 Completed [facility] DT/Tetanus 2014-01-29 00:00:00 Completed [facility] DT/Tetanus 2014-01-29 00:00:00 Completed [facility] DT/Tetanus 2014-01-29 00:00:00 Completed [facility] DT/Tetanus 2014-01-29 00:00:00 Completed [facility] DT/Tetanus 2014-01-29 00:00:00 Completed [facility] DT/Tetanus 2014-01-29 00:00:00 Completed [facility] DT/Tetanus 2014-01-29 00:00:00 Completed [facility] DT/Tetanus 2014-01-29 00:00:00 Completed [facility] DT/Tetanus 2014-01-29 00:00:00 Completed [facility] DT/Tetanus 2014-01-29 00:00:00 Completed [facility] DT/Tetanus 2014-01-29 00:00:00 Completed [facility] DT/Tetanus 2014-01-29 00:00:00 Completed [facility] DT/Tetanus 2014-01-29 00:00:00 Completed [facility] DT/Tetanus 2014-01-29 00:00:00 Completed [facility] DT/Tetanus 2014-01-29 00:00:00 Completed [facility] DT/Tetanus 2014-01-29 00:00:00 Completed [facility] DT/Tetanus 2014-01-29 00:00:00 Completed [facility] DT/Tetanus 2014-01-29 00:00:00 Completed [facility] DT/Tetanus 2014-01-29 00:00:00 Completed [facility] SARS-COV-2 COVID-19 MODERNA 12+ YRS VACCINE Unknown Completed [facility] SARS-COV-2 COVID-19 MODERNA 12+ YRS VACCINE Unknown Completed [facility] SARS-COV-2 COVID-19 MODERNA 12+ YRS VACCINE Unknown Completed [facility] Influenza Virus Vaccine Unknown Completed [facility] Pneumococcal 20 Conjugate, PCV20 (Prevnar 20) Unknown Completed [facility] Influenza Virus Vaccine Quad IM, Preserv and ABX Free 6 MO-64 YRS (FLUCELVAX) Unknown Completed [facility] SARS-COV-2 COVID-19 VACCINE 12 YRS+, BIVALENT 0.5ML, IM, (MODERNA-BLUE TOP) Unknown Completed [facility] DT/Tetanus Unknown Completed [facility] Influenza Virus Vaccine - Whole Unknown Completed [facility] Zoster Vaccine Recombinant Unknown Completed [facility] Zoster Vaccine Recombinant Unknown Completed [facility] SARS-COV-2 COVID-19 MODERNA 12+ YRS VACCINE Unknown Completed [facility] SARS-COV-2 COVID-19 MODERNA 12+ YRS VACCINE Unknown Completed [facility] SARS-COV-2 COVID-19 MODERNA 12+ YRS VACCINE Unknown Completed [facility] Influenza Virus Vaccine Unknown Completed [facility] Pneumococcal 20 Conjugate, PCV20 (Prevnar 20) Unknown Completed [facility] Influenza Virus Vaccine Quad IM, Preserv and ABX Free 6 MO-64 YRS (FLUCELVAX) Unknown Completed [facility] SARS-COV-2 COVID-19 VACCINE 12 YRS+, BIVALENT 0.5ML, IM, (MODERNA-BLUE TOP) Unknown Completed [facility] DT/Tetanus Unknown Completed [facility] Influenza Virus Vaccine - Whole Unknown Completed [facility] Zoster Vaccine Recombinant Unknown Completed [facility] Zoster Vaccine Recombinant Unknown Completed [facility] SARS-COV-2 COVID-19 MODERNA 12+ YRS VACCINE Unknown Completed [facility] SARS-COV-2 COVID-19 MODERNA 12+ YRS VACCINE Unknown Completed [facility] SARS-COV-2 COVID-19 MODERNA 12+ YRS VACCINE Unknown Completed [facility] Influenza Virus Vaccine Unknown Completed [facility] Pneumococcal 20 Conjugate, PCV20 (Prevnar 20) Unknown Completed [facility] Influenza Virus Vaccine Quad IM, Preserv and ABX Free 6 MO-64 YRS (FLUCELVAX) Unknown Completed [facility] SARS-COV-2 COVID-19 VACCINE 12 YRS+, BIVALENT 0.5ML, IM, (MODERNA-BLUE TOP) Unknown Completed [facility] DT/Tetanus Unknown Completed [facility] Influenza Virus Vaccine - Whole Unknown Completed [facility] Zoster Vaccine Recombinant Unknown Completed [facility] Zoster Vaccine Recombinant Unknown Completed [facility] SARS-COV-2 COVID-19 MODERNA 12+ YRS VACCINE Unknown Completed [facility] SARS-COV-2 COVID-19 MODERNA 12+ YRS VACCINE Unknown Completed [facility] SARS-COV-2 COVID-19 MODERNA 12+ YRS VACCINE Unknown Completed [facility] Influenza Virus Vaccine Unknown Completed [facility] Pneumococcal 20 Conjugate, PCV20 (Prevnar 20) Unknown Completed [facility] Influenza Virus Vaccine Quad IM, Preserv and ABX Free 6 MO-64 YRS (FLUCELVAX) Unknown Completed [facility] SARS-COV-2 COVID-19 VACCINE 12 YRS+, BIVALENT 0.5ML, IM, (MODERNA-BLUE TOP) Unknown Completed [facility] DT/Tetanus Unknown Completed [facility] Influenza Virus Vaccine - Whole Unknown Completed [facility] Zoster Vaccine Recombinant Unknown Completed [facility] Zoster Vaccine Recombinant Unknown Completed [facility] SARS-COV-2 COVID-19 MODERNA 12+ YRS VACCINE Unknown Completed [facility] SARS-COV-2 COVID-19 MODERNA 12+ YRS VACCINE Unknown Completed [facility] SARS-COV-2 COVID-19 MODERNA 12+ YRS VACCINE Unknown Completed [facility] Influenza Virus Vaccine Unknown Completed [facility] Pneumococcal 20 Conjugate, PCV20 (Prevnar 20) Unknown Completed [facility] Influenza Virus Vaccine Quad IM, Preserv and ABX Free 6 MO-64 YRS (FLUCELVAX) Unknown Completed [facility] SARS-COV-2 COVID-19 VACCINE 12 YRS+, BIVALENT 0.5ML, IM, (MODERNA-BLUE TOP) Unknown Completed [facility] DT/Tetanus Unknown Completed [facility] Influenza Virus Vaccine - Whole Unknown Completed [facility] Zoster Vaccine Recombinant Unknown Completed [facility] Zoster Vaccine Recombinant Unknown Completed [facility] SARS-COV-2 COVID-19 MODERNA 12+ YRS VACCINE Unknown Completed [facility] SARS-COV-2 COVID-19 MODERNA 12+ YRS VACCINE Unknown Completed [facility] SARS-COV-2 COVID-19 MODERNA 12+ YRS VACCINE Unknown Completed [facility] Influenza Virus Vaccine Unknown Completed [facility] Pneumococcal 20 Conjugate, PCV20 (Prevnar 20) Unknown Completed [facility] DT/Tetanus Unknown Completed [facility] Influenza Virus Vaccine - Whole Unknown Completed [facility] Zoster Vaccine Recombinant Unknown Completed [facility] Zoster Vaccine Recombinant Unknown Completed [facility] SARS-COV-2 COVID-19 MODERNA 12+ YRS VACCINE Unknown Completed [facility] SARS-COV-2 COVID-19 MODERNA 12+ YRS VACCINE Unknown Completed [facility] SARS-COV-2 COVID-19 MODERNA 12+ YRS VACCINE Unknown Completed [facility] Influenza Virus Vaccine Unknown Completed [facility] Pneumococcal 20 Conjugate, PCV20 (Prevnar 20) Unknown Completed [facility] DT/Tetanus Unknown Completed [facility] Influenza Virus Vaccine - Whole Unknown Completed [facility] Zoster Vaccine Recombinant Unknown Completed [facility] Zoster Vaccine Recombinant Unknown Completed [facility] SARS-COV-2 COVID-19 MODERNA 12+ YRS VACCINE Unknown Completed [facility] SARS-COV-2 COVID-19 MODERNA 12+ YRS VACCINE Unknown Completed [facility] SARS-COV-2 COVID-19 MODERNA 12+ YRS VACCINE Unknown Completed [facility] Influenza Virus Vaccine Unknown Completed [facility] Pneumococcal 20 Conjugate, PCV20 (Prevnar 20) Unknown Completed [facility] DT/Tetanus Unknown Completed [facility] Influenza Virus Vaccine - Whole Unknown Completed [facility] Zoster Vaccine Recombinant Unknown Completed [facility] Zoster Vaccine Recombinant Unknown Completed [facility] SARS-COV-2 COVID-19 MODERNA 12+ YRS VACCINE Unknown Completed [facility] SARS-COV-2 COVID-19 MODERNA 12+ YRS VACCINE Unknown Completed [facility] SARS-COV-2 COVID-19 MODERNA 12+ YRS VACCINE Unknown Completed [facility] Influenza Virus Vaccine Unknown Completed [facility] Pneumococcal 20 Conjugate, PCV20 (Prevnar 20) Unknown Completed [facility] DT/Tetanus Unknown Completed [facility] Influenza Virus Vaccine - Whole Unknown Completed [facility] Zoster Vaccine Recombinant Unknown Completed [facility] Zoster Vaccine Recombinant Unknown Completed [facility] SARS-COV-2 COVID-19 MODERNA 12+ YRS VACCINE Unknown Completed [facility] SARS-COV-2 COVID-19 MODERNA 12+ YRS VACCINE Unknown Completed [facility] SARS-COV-2 COVID-19 MODERNA 12+ YRS VACCINE Unknown Completed [facility] Influenza Virus Vaccine Unknown Completed [facility] Pneumococcal 20 Conjugate, PCV20 (Prevnar 20) Unknown Completed [facility] DT/Tetanus Unknown Completed [facility] Influenza Virus Vaccine - Whole Unknown Completed [facility] Zoster Vaccine Recombinant Unknown Completed [facility] Zoster Vaccine Recombinant Unknown Completed [facility] SARS-COV-2 COVID-19 MODERNA 12+ YRS VACCINE Unknown Completed [facility] SARS-COV-2 COVID-19 MODERNA 12+ YRS VACCINE Unknown Completed [facility] SARS-COV-2 COVID-19 MODERNA 12+ YRS VACCINE Unknown Completed [facility] Influenza Virus Vaccine Unknown Completed [facility] Pneumococcal 20 Conjugate, PCV20 (Prevnar 20) Unknown Completed [facility] DT/Tetanus Unknown Completed [facility] Influenza Virus Vaccine - Whole Unknown Completed [facility] Zoster Vaccine Recombinant Unknown Completed [facility] Zoster Vaccine Recombinant Unknown Completed [facility] SARS-COV-2 COVID-19 MODERNA 12+ YRS VACCINE Unknown Completed [facility] SARS-COV-2 COVID-19 MODERNA 12+ YRS VACCINE Unknown Completed [facility] SARS-COV-2 COVID-19 MODERNA 12+ YRS VACCINE Unknown Completed [facility] Influenza Virus Vaccine Unknown Completed [facility] DT/Tetanus Unknown Completed [facility] Influenza Virus Vaccine - Whole Unknown Completed [facility] Zoster Vaccine Recombinant Unknown Completed [facility] Zoster Vaccine Recombinant Unknown Completed [facility] SARS-COV-2 COVID-19 MODERNA 12+ YRS VACCINE Unknown Completed [facility] SARS-COV-2 COVID-19 MODERNA 12+ YRS VACCINE Unknown Completed [facility] SARS-COV-2 COVID-19 MODERNA 12+ YRS VACCINE Unknown Completed [facility] Influenza Virus Vaccine Unknown Completed [facility] DT/Tetanus Unknown Completed [facility] Influenza Virus Vaccine - Whole Unknown Completed [facility] Zoster Vaccine Recombinant Unknown Completed [facility] Zoster Vaccine Recombinant Unknown Completed [facility] SARS-COV-2 COVID-19 MODERNA 12+ YRS VACCINE Unknown Completed [facility] SARS-COV-2 COVID-19 MODERNA 12+ YRS VACCINE Unknown Completed [facility] SARS-COV-2 COVID-19 MODERNA 12+ YRS VACCINE Unknown Completed [facility] Influenza Virus Vaccine Unknown Completed [facility] DT/Tetanus Unknown Completed [facility] Influenza Virus Vaccine - Whole Unknown Completed [facility] o [facility] Zoster Vaccine Recombinant Unknown Completed [facility] Zoster Vaccine Recombinant Unknown Completed [facility] SARS-COV-2 COVID-19 MODERNA 12+ YRS VACCINE Unknown Completed [facility] SARS-COV-2 COVID-19 MODERNA 12+ YRS VACCINE Unknown Completed [facility] SARS-COV-2 COVID-19 MODERNA 12+ YRS VACCINE Unknown Completed [facility] Influenza Virus Vaccine Unknown Completed [facility] DT/Tetanus Unknown Completed [facility] Influenza Virus Vaccine - Whole Unknown Completed Check o [facility] Zoster Vaccine Recombinant Unknown Completed [facility] Zoster Vaccine Recombinant Unknown Completed [facility] SARS-COV-2 COVID-19 MODERNA 12+ YRS VACCINE Unknown Completed [facility] SARS-COV-2 COVID-19 MODERNA 12+ YRS VACCINE Unknown Completed [facility] SARS-COV-2 COVID-19 MODERNA 12+ YRS VACCINE Unknown Completed [facility] Influenza Virus Vaccine Unknown Completed [facility] DT/Tetanus Unknown Com[facility] Influenza Virus Vaccine - Whole Unknown Completed [facility] Zoster Vaccine Recombinant Unknown Completed [facility] Zoster Vaccine Recombinant Unknown Completed [facility] SARS-COV-2 COVID-19 MODERNA 12+ YRS VACCINE Unknown Completed [facility] SARS-COV-2 COVID-19 MODERNA 12+ YRS VACCINE Unknown Completed [facility] SARS-COV-2 COVID-19 MODERNA 12+ YRS VACCINE Unknown Completed [facility] Influenza Virus Vaccine Unknown Completed [facility] DT/Tetanus Unknown Completed [facility] Influenza Virus Vaccine - Whole Unknown Completed Check o [facility] Zoster Vaccine Recombinant Unknown Completed [facility] Zoster Vaccine Recombinant Unknown Completed [facility] SARS-COV-2 COVID-19 MODERNA 12+ YRS VACCINE Unknown Completed [facility] SARS-COV-2 COVID-19 MODERNA 12+ YRS VACCINE Unknown Completed [facility] DT/Tetanus Unknown Completed [facility] Zoster Vaccine Recombinant Unknown Completed [facility] Zoster Vaccine Recombinant Unknown Completed [facility] SARS-COV-2 COVID-19 MODERNA 12+ YRS VACCINE Unknown Completed [facility] SARS-COV-2 COVID-19 MODERNA 12+ YRS VACCINE Unknown Completed [facility] DT/Tetanus Unknown Completed [facility] Zoster Vaccine Recombinant Unknown Completed [facility] Zoster Vaccine Recombinant Unknown Completed [facility] SARS-COV-2 COVID-19 MODERNA 12+ YRS VACCINE Unknown Completed [facility] SARS-COV-2 COVID-19 MODERNA 12+ YRS VACCINE Unknown Completed [facility] SARS-COV-2 COVID-19 MODERNA 12+ YRS VACCINE Unknown Completed [facility] Influenza Virus Vaccine Unknown Completed [facility] Pneumococcal 20 Conjugate, PCV20 (Prevnar 20) Unknown Completed [facility] Influenza Virus Vaccine Quad IM, Preserv and ABX Free 6 MO-64 YRS (FLUCELVAX) Unknown Completed [facility] SARS-COV-2 COVID-19 VACCINE 12 YRS+, BIVALENT 0.5ML, IM, (MODERNA-BLUE TOP) Unknown Completed [facility] DT/Tetanus Unknown Completed [facility] Influenza Virus Vaccine - Whole Unknown Completed [facility] Zoster Vaccine Recombinant Unknown Completed [facility] Zoster Vaccine Recombinant Unknown Completed [facility] SARS-COV-2 COVID-19 MODERNA 12+ YRS VACCINE Unknown Completed [facility] SARS-COV-2 COVID-19 MODERNA 12+ YRS VACCINE Unknown Completed [facility] SARS-COV-2 COVID-19 MODERNA 12+ YRS VACCINE Unknown Completed [facility] Influenza Virus Vaccine Unknown Completed [facility] Pneumococcal 20 Conjugate, PCV20 (Prevnar 20) Unknown Completed [facility] Influenza Virus Vaccine Quad IM, Preserv and ABX Free 6 MO-64 YRS (FLUCELVAX) Unknown Completed [facility] SARS-COV-2 COVID-19 VACCINE 12 YRS+, BIVALENT 0.5ML, IM, (MODERNA-BLUE TOP) Unknown Completed [facility] DT/Tetanus Unknown Completed [facility] Influenza Virus Vaccine - Whole Unknown Completed [facility] Zoster Vaccine Recombinant Unknown Completed [facility] Zoster Vaccine Recombinant Unknown Completed [facility] SARS-COV-2 COVID-19 MODERNA 12+ YRS VACCINE Unknown Completed [facility] SARS-COV-2 COVID-19 MODERNA 12+ YRS VACCINE Unknown Completed [facility] SARS-COV-2 COVID-19 MODERNA 12+ YRS VACCINE Unknown Completed [facility] Influenza Virus Vaccine Unknown Completed [facility] Pneumococcal 20 Conjugate, PCV20 (Prevnar 20) Unknown Completed [facility] Influenza Virus Vaccine Quad IM, Preserv and ABX Free 6 MO-64 YRS (FLUCELVAX) Unknown Completed [facility] SARS-COV-2 COVID-19 VACCINE 12 YRS+, BIVALENT 0.5ML, IM, (MODERNA-BLUE TOP) Unknown Completed [facility] DT/Tetanus Unknown Completed [facility] Influenza Virus Vaccine - Whole Unknown Completed [facility] Zoster Vaccine Recombinant Unknown Completed [facility] Zoster Vaccine Recombinant Unknown Completed [facility] SARS-COV-2 COVID-19 MODERNA 12+ YRS VACCINE Unknown Completed [facility] SARS-COV-2 COVID-19 MODERNA 12+ YRS VACCINE Unknown Completed [facility] SARS-COV-2 COVID-19 MODERNA 12+ YRS VACCINE Unknown Completed [facility] Influenza Virus Vaccine Unknown Completed [facility] Pneumococcal 20 Conjugate, PCV20 (Prevnar 20) Unknown Completed [facility] Influenza Virus Vaccine Quad IM, Preserv and ABX Free 6 MO-64 YRS (FLUCELVAX) Unknown Completed [facility] SARS-COV-2 COVID-19 VACCINE 12 YRS+, BIVALENT 0.5ML, IM, (MODERNA-BLUE TOP) Unknown Completed [facility] DT/Tetanus Unknown Completed [facility] Influenza Virus Vaccine - Whole Unknown Completed [facility] Zoster Vaccine Recombinant Unknown Completed [facility] Zoster Vaccine Recombinant Unknown Completed [facility] SARS-COV-2 COVID-19 MODERNA 12+ YRS VACCINE Unknown Completed [facility] SARS-COV-2 COVID-19 MODERNA 12+ YRS VACCINE Unknown Completed [facility] SARS-COV-2 COVID-19 MODERNA 12+ YRS VACCINE Unknown Completed [facility] Influenza Virus Vaccine Unknown Completed [facility] Pneumococcal 20 Conjugate, PCV20 (Prevnar 20) Unknown Completed [facility] Influenza Virus Vaccine Quad IM, Preserv and ABX Free 6 MO-64 YRS (FLUCELVAX) Unknown Completed [facility] SARS-COV-2 COVID-19 VACCINE 12 YRS+, BIVALENT 0.5ML, IM, (MODERNA-BLUE TOP) Unknown Completed [facility] DT/Tetanus Unknown Completed [facility] Influenza Virus Vaccine - Whole Unknown Completed [facility] Zoster Vaccine Recombinant Unknown Completed [facility] Zoster Vaccine Recombinant Unknown Completed [facility] SARS-COV-2 COVID-19 MODERNA 12+ YRS VACCINE Unknown Completed [facility] SARS-COV-2 COVID-19 MODERNA 12+ YRS VACCINE Unknown Completed [facility] SARS-COV-2 COVID-19 MODERNA 12+ YRS VACCINE Unknown Completed [facility] Influenza Virus Vaccine Unknown Completed [facility] Pneumococcal 20 Conjugate, PCV20 (Prevnar 20) Unknown Completed [facility] Influenza Virus Vaccine Quad IM, Preserv and ABX Free 6 MO-64 YRS (FLUCELVAX) Unknown Completed [facility] SARS-COV-2 COVID-19 VACCINE 12 YRS+, BIVALENT 0.5ML, IM, (MODERNA-BLUE TOP) Unknown Completed [facility] DT/Tetanus Unknown Completed [facility] Influenza Virus Vaccine - Whole Unknown Completed [facility] Zoster Vaccine Recombinant Unknown Completed [facility] Zoster Vaccine Recombinant Unknown Completed [facility] SARS-COV-2 COVID-19 MODERNA 12+ YRS VACCINE Unknown Completed [facility] SARS-COV-2 COVID-19 MODERNA 12+ YRS VACCINE Unknown Completed [facility] SARS-COV-2 COVID-19 MODERNA 12+ YRS VACCINE Unknown Completed [facility] Influenza Virus Vaccine Unknown Completed [facility] Pneumococcal 20 Conjugate, PCV20 (Prevnar 20) Unknown Completed [facility] Influenza Virus Vaccine Quad IM, Preserv and ABX Free 6 MO-64 YRS (FLUCELVAX) Unknown Completed [facility] SARS-COV-2 COVID-19 VACCINE 12 YRS+, BIVALENT 0.5ML, IM, (MODERNA-BLUE TOP) Unknown Completed [facility] DT/Tetanus Unknown Completed [facility] Influenza Virus Vaccine - Whole Unknown Completed [facility] Zoster Vaccine Recombinant Unknown Completed [facility] Zoster Vaccine Recombinant Unknown Completed [facility] SARS-COV-2 COVID-19 MODERNA 12+ YRS VACCINE Unknown Completed [facility] SARS-COV-2 COVID-19 MODERNA 12+ YRS VACCINE Unknown Completed [facility] SARS-COV-2 COVID-19 MODERNA 12+ YRS VACCINE Unknown Completed [facility] Influenza Virus Vaccine Unknown Completed [facility] Pneumococcal 20 Conjugate, PCV20 (Prevnar 20) Unknown Completed [facility] Influenza Virus Vaccine Quad IM, Preserv and ABX Free 6 MO-64 YRS (FLUCELVAX) Unknown Completed [facility] SARS-COV-2 COVID-19 VACCINE 12 YRS+, BIVALENT 0.5ML, IM, (MODERNA-BLUE TOP) Unknown Completed [facility] DT/Tetanus Unknown Completed [facility] Influenza Virus Vaccine - Whole Unknown Completed [facility] Zoster Vaccine Recombinant Unknown Completed [facility] Zoster Vaccine Recombinant Unknown Completed [facility] SARS-COV-2 COVID-19 MODERNA 12+ YRS VACCINE Unknown Completed [facility] SARS-COV-2 COVID-19 MODERNA 12+ YRS VACCINE Unknown Completed [facility] SARS-COV-2 COVID-19 MODERNA 12+ YRS VACCINE Unknown Completed [facility] Influenza Virus Vaccine Unknown Completed [facility] Pneumococcal 20 Conjugate, PCV20 (Prevnar 20) Unknown Completed [facility] Influenza Virus Vaccine Quad IM, Preserv and ABX Free 6 MO-64 YRS (FLUCELVAX) Unknown Completed [facility] SARS-COV-2 COVID-19 VACCINE 12 YRS+, BIVALENT 0.5ML, IM, (MODERNA-BLUE TOP) Unknown Completed [facility] DT/Tetanus Unknown Completed [facility] Influenza Virus Vaccine - Whole Unknown Completed [facility] Zoster Vaccine Recombinant Unknown Completed [facility] Zoster Vaccine Recombinant Unknown Completed [facility] SARS-COV-2 COVID-19 MODERNA 12+ YRS VACCINE Unknown Completed [facility] SARS-COV-2 COVID-19 MODERNA 12+ YRS VACCINE Unknown Completed [facility] SARS-COV-2 COVID-19 MODERNA 12+ YRS VACCINE Unknown Completed [facility] Influenza Virus Vaccine Unknown Completed [facility] Pneumococcal 20 Conjugate, PCV20 (Prevnar 20) Unknown Completed [facility] Influenza Virus Vaccine Quad IM, Preserv and ABX Free 6 MO-64 YRS (FLUCELVAX) Unknown Completed [facility] SARS-COV-2 COVID-19 VACCINE 12 YRS+, BIVALENT 0.5ML, IM, (MODERNA-BLUE TOP) Unknown Completed [facility] DT/Tetanus Unknown Completed [facility] Influenza Virus Vaccine - Whole Unknown Completed [facility] Zoster Vaccine Recombinant Unknown Completed [facility] Zoster Vaccine Recombinant Unknown Completed [facility] SARS-COV-2 COVID-19 MODERNA 12+ YRS VACCINE Unknown Completed [facility] SARS-COV-2 COVID-19 MODERNA 12+ YRS VACCINE Unknown Completed [facility] SARS-COV-2 COVID-19 MODERNA 12+ YRS VACCINE Unknown Completed [facility] Influenza Virus Vaccine Unknown Completed [facility] Pneumococcal 20 Conjugate, PCV20 (Prevnar 20) Unknown Completed [facility] Influenza Virus Vaccine Quad IM, Preserv and ABX Free 6 MO-64 YRS (FLUCELVAX) Unknown Completed [facility] SARS-COV-2 COVID-19 VACCINE 12 YRS+, BIVALENT 0.5ML, IM, (MODERNA-BLUE TOP) Unknown Completed [facility] DT/Tetanus Unknown Completed [facility] Influenza Virus Vaccine - Whole Unknown Completed [facility] Zoster Vaccine Recombinant Unknown Completed [facility] Zoster Vaccine Recombinant Unknown Completed [facility] Influenza Virus Vaccine Quad IM, Preserv and ABX Free 6 MO-64 YRS (FLUCELVAX) Unknown Completed [facility] SARS-COV-2 COVID-19 MODERNA 12+ YRS VACCINE Unknown Completed [facility] SARS-COV-2 COVID-19 MODERNA 12+ YRS VACCINE Unknown Completed [facility] SARS-COV-2 COVID-19 MODERNA 12+ YRS VACCINE Unknown Completed [facility] Influenza Virus Vaccine Unknown Completed [facility] Pneumococcal 20 Conjugate, PCV20 (Prevnar 20) Unknown Completed [facility] Influenza Virus Vaccine Quad IM, Preserv and ABX Free 6 MO-64 YRS (FLUCELVAX) Unknown Completed [facility] SARS-COV-2 COVID-19 VACCINE 12 YRS+, BIVALENT 0.5ML, IM, (MODERNA-BLUE TOP) Unknown Completed [facility] DT/Tetanus Unknown Completed [facility] Influenza Virus Vaccine - Whole Unknown Completed [facility] Zoster Vaccine Recombinant Unknown Completed [facility] Zoster Vaccine Recombinant Unknown Completed [facility] Influenza Virus Vaccine Quad IM, Preserv and ABX Free 6 MO-64 YRS (FLUCELVAX) Unknown Completed [facility] SARS-COV-2 COVID-19 MODERNA 12+ YRS VACCINE Unknown Completed [facility] SARS-COV-2 COVID-19 MODERNA 12+ YRS VACCINE Unknown Completed [facility] SARS-COV-2 COVID-19 MODERNA 12+ YRS VACCINE Unknown Completed [facility] Influenza Virus Vaccine Unknown Completed [facility] Pneumococcal 20 Conjugate, PCV20 (Prevnar 20) Unknown Completed [facility] Influenza Virus Vaccine Quad IM, Preserv and ABX Free 6 MO-64 YRS (FLUCELVAX) Unknown Completed [facility] SARS-COV-2 COVID-19 VACCINE 12 YRS+, BIVALENT 0.5ML, IM, (MODERNA-BLUE TOP) Unknown Completed [facility] DT/Tetanus Unknown Completed [facility] Influenza Virus Vaccine - Whole Unknown Completed [facility] Zoster Vaccine Recombinant Unknown Completed [facility] Zoster Vaccine Recombinant Unknown Completed [facility] Influenza Virus Vaccine Quad IM, Preserv and ABX Free 6 MO-64 YRS (FLUCELVAX) Unknown Completed [facility] SARS-COV-2 COVID-19 MODERNA 12+ YRS VACCINE Unknown Completed [facility] SARS-COV-2 COVID-19 MODERNA 12+ YRS VACCINE Unknown Completed [facility] SARS-COV-2 COVID-19 MODERNA 12+ YRS VACCINE Unknown Completed [facility] Influenza Virus Vaccine Unknown Completed [facility] Pneumococcal 20 Conjugate, PCV20 (Prevnar 20) Unknown Completed [facility] Influenza Virus Vaccine Quad IM, Preserv and ABX Free 6 MO-64 YRS (FLUCELVAX) Unknown Completed [facility] SARS-COV-2 COVID-19 VACCINE 12 YRS+, BIVALENT 0.5ML, IM, (MODERNA-BLUE TOP) Unknown Completed [facility] DT/Tetanus Unknown Completed [facility] Influenza Virus Vaccine - Whole Unknown Completed [facility] Zoster Vaccine Recombinant Unknown Completed [facility] Zoster Vaccine Recombinant Unknown Completed [facility] Influenza Virus Vaccine Quad IM, Preserv and ABX Free 6 MO-64 YRS (FLUCELVAX) Unknown Completed [facility] SARS-COV-2 COVID-19 MODERNA 12+ YRS VACCINE Unknown Completed [facility] SARS-COV-2 COVID-19 MODERNA 12+ YRS VACCINE Unknown Completed [facility] SARS-COV-2 COVID-19 MODERNA 12+ YRS VACCINE Unknown Completed [facility] Influenza Virus Vaccine Unknown Completed [facility] Pneumococcal 20 Conjugate, PCV20 (Prevnar 20) Unknown Completed [facility] Influenza Virus Vaccine Quad IM, Preserv and ABX Free 6 MO-64 YRS (FLUCELVAX) Unknown Completed [facility] SARS-COV-2 COVID-19 VACCINE 12 YRS+, BIVALENT 0.5ML, IM, (MODERNA-BLUE TOP) Unknown Completed [facility] DT/Tetanus Unknown Completed [facility] Influenza Virus Vaccine - Whole Unknown Completed [facility] Zoster Vaccine Recombinant Unknown Completed [facility] Zoster Vaccine Recombinant Unknown Completed [facility] Influenza Virus Vaccine Quad IM, Preserv and ABX Free 6 MO-64 YRS (FLUCELVAX) Unknown Completed [facility] SARS-COV-2 COVID-19 MODERNA 12+ YRS VACCINE Unknown Completed [facility] SARS-COV-2 COVID-19 MODERNA 12+ YRS VACCINE Unknown Completed [facility] SARS-COV-2 COVID-19 MODERNA 12+ YRS VACCINE Unknown Completed [facility] Influenza Virus Vaccine Unknown Completed [facility] Pneumococcal 20 Conjugate, PCV20 (Prevnar 20) Unknown Completed [facility] Influenza Virus Vaccine Quad IM, Preserv and ABX Free 6 MO-64 YRS (FLUCELVAX) Unknown Completed [facility] SARS-COV-2 COVID-19 VACCINE 12 YRS+, BIVALENT 0.5ML, IM, (MODERNA-BLUE TOP) Unknown Completed [facility] DT/Tetanus Unknown Completed [facility] Influenza Virus Vaccine - Whole Unknown Completed [facility] Zoster Vaccine Recombinant Unknown Completed [facility] Zoster Vaccine Recombinant Unknown Completed [facility] Influenza Virus Vaccine Quad IM, Preserv and ABX Free 6 MO-64 YRS (FLUCELVAX) Unknown Completed [facility] SARS-COV-2 COVID-19 MODERNA 12+ YRS VACCINE Unknown Completed [facility] SARS-COV-2 COVID-19 MODERNA 12+ YRS VACCINE Unknown Completed [facility] SARS-COV-2 COVID-19 MODERNA 12+ YRS VACCINE Unknown Completed [facility] Influenza Virus Vaccine Unknown Completed [facility] Pneumococcal 20 Conjugate, PCV20 (Prevnar 20) Unknown Completed [facility] Influenza Virus Vaccine Quad IM, Preserv and ABX Free 6 MO-64 YRS (FLUCELVAX) Unknown Completed [facility] SARS-COV-2 COVID-19 VACCINE 12 YRS+, BIVALENT 0.5ML, IM, (MODERNA-BLUE TOP) Unknown Completed [facility] DT/Tetanus Unknown Completed [facility] Influenza Virus Vaccine - Whole Unknown Completed [facility] Zoster Vaccine Recombinant Unknown Completed [facility] Zoster Vaccine Recombinant Unknown Completed [facility] Influenza Virus Vaccine Quad IM, Preserv and ABX Free 6 MO-64 YRS (FLUCELVAX) Unknown Completed [facility] SARS-COV-2 COVID-19 MODERNA 12+ YRS VACCINE Unknown Completed [facility] SARS-COV-2 COVID-19 MODERNA 12+ YRS VACCINE Unknown Completed [facility] SARS-COV-2 COVID-19 MODERNA 12+ YRS VACCINE Unknown Completed [facility] Influenza Virus Vaccine Unknown Completed [facility] Pneumococcal 20 Conjugate, PCV20 (Prevnar 20) Unknown Completed [facility] Influenza Virus Vaccine Quad IM, Preserv and ABX Free 6 MO-64 YRS (FLUCELVAX) Unknown Completed [facility] SARS-COV-2 COVID-19 VACCINE 12 YRS+, BIVALENT 0.5ML, IM, (MODERNA-BLUE TOP) Unknown Completed [facility] DT/Tetanus Unknown Completed [facility] Influenza Virus Vaccine - Whole Unknown Completed [facility] Zoster Vaccine Recombinant Unknown Completed [facility] Zoster Vaccine Recombinant Unknown Completed [facility] Influenza Virus Vaccine Quad IM, Preserv and ABX Free 6 MO-64 YRS (FLUCELVAX) Unknown Completed [facility] SARS-COV-2 COVID-19 MODERNA 12+ YRS VACCINE Unknown Completed [facility] SARS-COV-2 COVID-19 MODERNA 12+ YRS VACCINE Unknown Completed [facility] SARS-COV-2 COVID-19 MODERNA 12+ YRS VACCINE Unknown Completed [facility] Influenza Virus Vaccine Unknown Completed [facility] Pneumococcal 20 Conjugate, PCV20 (Prevnar 20) Unknown Completed [facility] Influenza Virus Vaccine Quad IM, Preserv and ABX Free 6 MO-64 YRS (FLUCELVAX) Unknown Completed [facility] SARS-COV-2 COVID-19 VACCINE 12 YRS+, BIVALENT 0.5ML, IM, (MODERNA-BLUE TOP) Unknown Completed [facility] DT/Tetanus Unknown Completed [facility] Influenza Virus Vaccine - Whole Unknown Completed [facility] Zoster Vaccine Recombinant Unknown Completed [facility] Zoster Vaccine Recombinant Unknown Completed [facility] Influenza Virus Vaccine Quad IM, Preserv and ABX Free 6 MO-64 YRS (FLUCELVAX) Unknown Completed [facility] SARS-COV-2 COVID-19 MODERNA 12+ YRS VACCINE Unknown Completed [facility] SARS-COV-2 COVID-19 MODERNA 12+ YRS VACCINE Unknown Completed [facility] SARS-COV-2 COVID-19 MODERNA 12+ YRS VACCINE Unknown Completed [facility] Influenza Virus Vaccine Unknown Completed [facility] Pneumococcal 20 Conjugate, PCV20 (Prevnar 20) Unknown Completed [facility] Influenza Virus Vaccine Quad IM, Preserv and ABX Free 6 MO-64 YRS (FLUCELVAX) Unknown Completed [facility] SARS-COV-2 COVID-19 VACCINE 12 YRS+, BIVALENT 0.5ML, IM, (MODERNA-BLUE TOP) Unknown Completed [facility] DT/Tetanus Unknown Completed [facility] Influenza Virus Vaccine - Whole Unknown Completed [facility] Zoster Vaccine Recombinant Unknown Completed [facility] Zoster Vaccine Recombinant Unknown Completed [facility] Influenza Virus Vaccine Quad IM, Preserv and ABX Free 6 MO-64 YRS (FLUCELVAX) Unknown Completed [facility] SARS-COV-2 COVID-19 MODERNA 12+ YRS VACCINE Unknown Completed [facility] SARS-COV-2 COVID-19 MODERNA 12+ YRS VACCINE Unknown Completed [facility] SARS-COV-2 COVID-19 MODERNA 12+ YRS VACCINE Unknown Completed [facility] Influenza Virus Vaccine Unknown Completed [facility] Pneumococcal 20 Conjugate, PCV20 (Prevnar 20) Unknown Completed [facility] Influenza Virus Vaccine Quad IM, Preserv and ABX Free 6 MO-64 YRS (FLUCELVAX) Unknown Completed [facility] SARS-COV-2 COVID-19 VACCINE 12 YRS+, BIVALENT 0.5ML, IM, (MODERNA-BLUE TOP) Unknown Completed [facility] DT/Tetanus Unknown Completed [facility] Influenza Virus Vaccine - Whole Unknown Completed [facility] Zoster Vaccine Recombinant Unknown Completed [facility] Zoster Vaccine Recombinant Unknown Completed [facility] Influenza Virus Vaccine Quad IM, Preserv and ABX Free 6 MO-64 YRS (FLUCELVAX) Unknown Completed [facility] SARS-COV-2 COVID-19 MODERNA 12+ YRS VACCINE Unknown Completed [facility] SARS-COV-2 COVID-19 MODERNA 12+ YRS VACCINE Unknown Completed [facility] SARS-COV-2 COVID-19 MODERNA 12+ YRS VACCINE Unknown Completed [facility] Influenza Virus Vaccine Unknown Completed [facility] Pneumococcal 20 Conjugate, PCV20 (Prevnar 20) Unknown Completed [facility] Influenza Virus Vaccine Quad IM, Preserv and ABX Free 6 MO-64 YRS (FLUCELVAX) Unknown Completed [facility] SARS-COV-2 COVID-19 VACCINE 12 YRS+, BIVALENT 0.5ML, IM, (MODERNA-BLUE TOP) Unknown Completed [facility] DT/Tetanus Unknown Completed [facility] Influenza Virus Vaccine - Whole Unknown Completed [facility] Zoster Vaccine Recombinant Unknown Completed [facility] Zoster Vaccine Recombinant Unknown Completed [facility] Influenza Virus Vaccine Quad IM, Preserv and ABX Free 6 MO-64 YRS (FLUCELVAX) Unknown Completed [facility] SARS-COV-2 COVID-19 MODERNA 12+ YRS VACCINE Unknown Completed [facility] SARS-COV-2 COVID-19 MODERNA 12+ YRS VACCINE Unknown Completed [facility] SARS-COV-2 COVID-19 MODERNA 12+ YRS VACCINE Unknown Completed [facility] Influenza Virus Vaccine Unknown Completed [facility] Pneumococcal 20 Conjugate, PCV20 (Prevnar 20) Unknown Completed [facility] Influenza Virus Vaccine Quad IM, Preserv and ABX Free 6 MO-64 YRS (FLUCELVAX) Unknown Completed [facility] SARS-COV-2 COVID-19 VACCINE 12 YRS+, BIVALENT 0.5ML, IM, (MODERNA-BLUE TOP) Unknown Completed [facility] DT/Tetanus Unknown Completed [facility] Influenza Virus Vaccine - Whole Unknown Completed [facility] Zoster Vaccine Recombinant Unknown Completed [facility] Zoster Vaccine Recombinant Unknown Completed [facility] Influenza Virus Vaccine Quad IM, Preserv and ABX Free 6 MO-64 YRS (FLUCELVAX) Unknown Completed [facility] SARS-COV-2 COVID-19 MODERNA 12+ YRS VACCINE Unknown Completed [facility] SARS-COV-2 COVID-19 MODERNA 12+ YRS VACCINE Unknown Completed [facility] SARS-COV-2 COVID-19 MODERNA 12+ YRS VACCINE Unknown Completed [facility] Influenza Virus Vaccine Unknown Completed [facility] Pneumococcal 20 Conjugate, PCV20 (Prevnar 20) Unknown Completed [facility] Influenza Virus Vaccine Quad IM, Preserv and ABX Free 6 MO-64 YRS (FLUCELVAX) Unknown Completed [facility] SARS-COV-2 COVID-19 VACCINE 12 YRS+, BIVALENT 0.5ML, IM, (MODERNA-BLUE TOP) Unknown Completed [facility] DT/Tetanus Unknown Completed [facility] Influenza Virus Vaccine - Whole Unknown Completed [facility] Zoster Vaccine Recombinant Unknown Completed [facility] Zoster Vaccine Recombinant Unknown Completed [facility] Influenza Virus Vaccine Quad IM, Preserv and ABX Free 6 MO-64 YRS (FLUCELVAX) Unknown Completed [facility] SARS-COV-2 COVID-19 MODERNA 12+ YRS VACCINE Unknown Completed [facility] SARS-COV-2 COVID-19 MODERNA 12+ YRS VACCINE Unknown Completed [facility] SARS-COV-2 COVID-19 MODERNA 12+ YRS VACCINE Unknown Completed [facility] Influenza Virus Vaccine Unknown Completed [facility] Pneumococcal 20 Conjugate, PCV20 (Prevnar 20) Unknown Completed [facility] Influenza Virus Vaccine Quad IM, Preserv and ABX Free 6 MO-64 YRS (FLUCELVAX) Unknown Completed [facility] SARS-COV-2 COVID-19 VACCINE 12 YRS+, BIVALENT 0.5ML, IM, (MODERNA-BLUE TOP) Unknown Completed [facility] DT/Tetanus Unknown Completed [facility] Influenza Virus Vaccine - Whole Unknown Completed [facility] Zoster Vaccine Recombinant Unknown Completed [facility] Zoster Vaccine Recombinant Unknown Completed [facility] Influenza Virus Vaccine Quad IM, Preserv and ABX Free 6 MO-64 YRS (FLUCELVAX) Unknown Completed [facility] SARS-COV-2 COVID-19 MODERNA 12+ YRS VACCINE Unknown Completed [facility] SARS-COV-2 COVID-19 MODERNA 12+ YRS VACCINE Unknown Completed [facility] SARS-COV-2 COVID-19 MODERNA 12+ YRS VACCINE Unknown Completed [facility] Influenza Virus Vaccine Unknown Completed [facility] Pneumococcal 20 Conjugate, PCV20 (Prevnar 20) Unknown Completed [facility] Influenza Virus Vaccine Quad IM, Preserv and ABX Free 6 MO-64 YRS (FLUCELVAX) Unknown Completed [facility] SARS-COV-2 COVID-19 VACCINE 12 YRS+, BIVALENT 0.5ML, IM, (MODERNA-BLUE TOP) Unknown Completed [facility] DT/Tetanus Unknown Completed [facility] Influenza Virus Vaccine - Whole Unknown Completed [facility] Zoster Vaccine Recombinant Unknown Completed [facility] Zoster Vaccine Recombinant Unknown Completed [facility] Influenza Virus Vaccine Quad IM, Preserv and ABX Free 6 MO-64 YRS (FLUCELVAX) Unknown Completed [facility] SARS-COV-2 COVID-19 MODERNA 12+ YRS VACCINE Unknown Completed [facility] SARS-COV-2 COVID-19 MODERNA 12+ YRS VACCINE Unknown Completed [facility] SARS-COV-2 COVID-19 MODERNA 12+ YRS VACCINE Unknown Completed [facility] Influenza Virus Vaccine Unknown Completed [facility] Pneumococcal 20 Conjugate, PCV20 (Prevnar 20) Unknown Completed [facility] Influenza Virus Vaccine Quad IM, Preserv and ABX Free 6 MO-64 YRS (FLUCELVAX) Unknown Completed [facility] SARS-COV-2 COVID-19 VACCINE 12 YRS+, BIVALENT 0.5ML, IM, (MODERNA-BLUE TOP) Unknown Completed [facility] DT/Tetanus Unknown Completed [facility] Influenza Virus Vaccine - Whole Unknown Completed [facility] Zoster Vaccine Recombinant Unknown Completed [facility] Zoster Vaccine Recombinant Unknown Completed [facility] Influenza Virus Vaccine Quad IM, Preserv and ABX Free 6 MO-64 YRS (FLUCELVAX) Unknown Completed [facility] SARS-COV-2 COVID-19 MODERNA 12+ YRS VACCINE Unknown Completed [facility] SARS-COV-2 COVID-19 MODERNA 12+ YRS VACCINE Unknown Completed [facility] SARS-COV-2 COVID-19 MODERNA 12+ YRS VACCINE Unknown Completed [facility] Influenza Virus Vaccine Unknown Completed [facility] Pneumococcal 20 Conjugate, PCV20 (Prevnar 20) Unknown Completed [facility] Influenza Virus Vaccine Quad IM, Preserv and ABX Free 6 MO-64 YRS (FLUCELVAX) Unknown Completed [facility] SARS-COV-2 COVID-19 VACCINE 12 YRS+, BIVALENT 0.5ML, IM, (MODERNA-BLUE TOP) Unknown Completed [facility] DT/Tetanus Unknown Completed [facility] Influenza Virus Vaccine - Whole Unknown Completed [facility] Zoster Vaccine Recombinant Unknown Completed [facility] Zoster Vaccine Recombinant Unknown Completed [facility] Influenza Virus Vaccine Quad IM, Preserv and ABX Free 6 MO-64 YRS (FLUCELVAX) Unknown Completed [facility] Vital Signs Vital Name Observation Time Observation Value Comments S ource Systolic blood pressure 2023-06-14 21:40:00 139 mm[Hg] [facility] Diastolic blood pressure 2023-06-14 21:40:00 88 mm[Hg] [facility] Heart rate 2023-06-14 21:40:00 86 /min [facility] Respiratory rate 2023-06-14 21:40:00 18 /min [facility] Body height 2023-06-14 21:40:00 165.1 cm [facility] Body weight 2023-06-14 21:40:00 91.536 kg [facility] BMI 2023-06-14 21:40:00 33.58 kg/m2 [facility] Oxygen saturation in Arterial blood by Pulse oximetry 2023-06-14 21:40:00 96 /min [facility] Systolic blood pressure 2023-04-04 18:23:00 113 mm[Hg] [facility] Diastolic blood pressure 2023-04-04 18:23:00 73 mm[Hg] [facility] Heart rate 2023-04-04 18:23:00 81 /min [facility] Body temperature 2023-04-04 18:23:00 36.11 Ashlee [facility] Respiratory rate 2023-04-04 18:23:00 18 /min [facility] Body height 2023-04-04 18:23:00 165.1 cm [facility] Body weight 2023-04-04 18:23:00 91.627 kg [facility] BMI 2023-04-04 18:23:00 33.61 kg/m2 [facility] Oxygen saturation in Arterial blood by Pulse oximetry 2023-04-04 18:23:00 97 /min r/a [facility] Systolic blood pressure 2023-01-09 21:06:00 111 mm[Hg] [facility] Diastolic blood pressure 2023-01-09 21:06:00 80 mm[Hg] [facility] Heart rate 2023-01-09 21:06:00 74 /min [facility] Body temperature 2023-01-09 21:06:00 36.78 Ashlee [facility] Respiratory rate 2023-01-09 21:06:00 18 /min [facility] Body height 2023-01-09 21:06:00 165.1 cm [facility] Body weight 2023-01-09 21:06:00 93.895 kg [facility] BMI 2023-01-09 21:06:00 34.45 kg/m2 [facility] Systolic blood pressure 2022-12-20 17:43:00 112 mm[Hg] [facility] Diastolic blood pressure 2022-12-20 17:43:00 77 mm[Hg] [facility] Heart rate 2022-12-20 17:43:00 84 /min [facility] Body temperature 2022-12-20 17:43:00 36.56 Ashlee [facility] Respiratory rate 2022-12-20 17:43:00 17 /min [facility] Body height 2022-12-20 17:43:00 [facility].1 cm [facility] 2022-12-20 17:43:00 91.627 kg [facility] BMI 2022-12-20 17:43:00 33.61 kg/m2 [facility] Oxygen saturation in Arterial blood by Pulse oximetry 2022-12-20 17:43:00 99 /min room air [facility] Systolic blood pressure 2022-12-08 14:47:00 100 mm[Hg] [facility] Diastolic blood pressure 2022-12-08 14:47:00 68 mm[Hg] [facility] Heart rate 2022-12-08 14:47:00 82 /min [facility] Body temperature 2022-12-08 14:47:00 36.56 Ashlee [facility] Respiratory rate 2022-12-08 14:47:00 16 /min [facility] Body height 2022-12-08 14:47:00 165.1 cm [facility] weight 2022-12-08 14:47:00 95.029 kg [facility] BMI 2022-12-08 14:47:00 34.86 kg/m2 [facility] Oxygen saturation in Arterial blood by Pulse oximetry 2022-12-08 14:47:00 96 /min [facility] Systolic blood pressure 2022-10-13 20:13:00 117 mm[Hg] [facility] Diastolic blood pressure 2022-10-13 20:13:00 72 mm[Hg] [facility] Heart rate 2022-10-13 20:13:00 97 /min [facility] Body temperature 2022-10-13 20:13:00 37.11 Ashlee [facility] Body height 2022-10-13 20:13:00 165.1 cm [facility] Body weight 2022-10-13 20:13:00 94.348 kg [facility] BMI 2022-10-13 20:13:00 34.61 kg/m2 [facility] Oxygen saturation in Arterial blood by Pulse oximetry 2022-10-13 20:13:00 96 /min [facility] Systolic blood pressure 2022-10-07 18:04:00 127 mm[Hg] [facility] Diastolic blood pressure 2022-10-07 18:04:00 82 mm[Hg] [facility] Heart rate 2022-10-07 18:04:00 85 /min [facility] Body temperature 2022-10-07 18:04:00 36.33 Ashlee [facility] Respiratory rate 2022-10-07 18:04:00 16 /min [facility] Body height 2022-10-07 18:04:00 165.1 cm [facility] Body weight 2022-10-07 18:04:00 94.756 kg [facility] BMI 2022-10-07 18:04:00 34.76 kg/m2 [facility] Oxygen saturation in Arterial blood by Pulse oximetry 2022-10-07 18:04:00 98 /min [facility] Systolic blood pressure 2022-10-05 18:34:00 103 mm[Hg] [facility] Diastolic blood pressure 2022-10-05 18:34:00 71 mm[Hg] [facility] Heart rate 2022-10-05 18:34:00 70 /min [facility] Body temperature 2022-10-05 18:34:00 36.67 Ashlee [facility] Respiratory rate 2022-10-05 18:34:00 18 /min [facility] Body height 2022-10-05 18:34:00 165.1 cm [facility] Body weight 2022-10-05 18:34:00 93.441 kg [facility] BMI 2022-10-05 18:34:00 34.28 kg/m2 [facility] Systolic blood pressure 2022-07-20 15:10:00 124 mm[Hg] [facility] Diastolic blood pressure 2022-07-20 15:10:00 80 mm[Hg] [facility] Heart rate 2022-07-20 15:10:00 60 /min [facility] Body temperature 2022-07-20 15:10:00 36.72 Ashlee [facility] Body height 2022-07-20 15:10:00 165.1 cm [facility] Body weight 2022-07-20 15:10:00 95.255 kg [facility] BMI 2022-07-20 15:10:00 34.95 kg/m2 [facility] Oxygen saturation in Arterial blood by Pulse oximetry 2022-07-20 15:10:00 96 /min [facility] Systolic blood pressure 2022-06-14 19:23:00 126 mm[Hg] [facility] Diastolic blood pressure 2022-06-14 19:23:00 78 mm[Hg] [facility] Heart rate 2022-06-14 19:23:00 68 /min [facility] Body temperature 2022-06-14 19:23:00 36.72 Ashlee [facility] Respiratory rate 2022-06-14 19:23:00 18 /min [facility] Body height 2022-06-14 19:23:00 165.1 cm [facility] Body weight 2022-06-14 19:23:00 94.892 kg [facility] BMI 2022-06-14 19:23:00 34.81 kg/m2 [facility] Height/Length Measured 2021-08-05 08:48:40 165 cm Weight Dosing 2021-08-05 08:48:40 89.3 kg Weight Dosing 2021-08-05 08:48:12 89.3 kg Height/Length Measured 2021-08-05 08:48:12 165 cm Height/Length Measured 2020-05-28 12:53:26 Weight Dosing 2020-05-28 12:53:26 Procedures Procedure Date / Time Performed Performing Clinician Source REFERRAL- REQUEST/RESPONSE 2023-08-09 06:01:00 Doctor Unassigned, [place] [facility] XR CHEST 2 VW 2023-06-14 22:45:07 Janel Snow [facility] FLU VACC (), 6 MO-64 YRS, .5ML, IM, QUAD (FLUCELVAX) 2023-06-14 22:11:49 Janel Snow [facility] EXTERNAL PROVIDER RECORDS 2023-05-30 06:01:00 Do ctor Unassigned, [place] [facility] CONSENT/REFUSAL FOR DIAGNOSIS AND TREATMENT 2023-04-04 18:16:34 Doctor Unassigned, [place] [facility] INSURANCE CORRESPONDENCE 2023-02-28 05:01:00 Doc tor Unassigned, [place] [facility] XR HIPS 2 VW RIGHT 2023-01-09 20:44:00 Franko Thakur [facility] REFERRAL- REQUEST/RESPONSE 2022-12-16 05:01:00 Doctor Unassigned, [place] [facility] REFERRAL- REQUEST/RESPONSE 2022-11-14 05:01:00 Doctor Unassigned, [place] [facility] DEXA AXIAL (HIP AND SPINE) 2022-10-24 19:39:07 Manisha Norris [facility] ASSIGNMENT OF BENEFITS 2022-10-24 19:04:26 Docto r Unassigned, [place] [facility] POCT MOLECULAR FLU 2022-10-13 20:23:00 Babita Saldana [facility] POCT MOLECULAR STREP 2022-10-13 20:11:00 Kya Saldana [facility] PATIENT FINANCIAL POLICY 2022-10-05 17:55:40 Doctor Unassigned, [place] [facility] REFERRAL- REQUEST/RESPONSE 2022-09-23 06:01:00 Doctor Unassigned, [place] [facility] EXTERNAL PROVIDER RECORDS 2022-08-30 06:01:00 Do ctor Unassigned, [place] [facility] REFERRAL- REQUEST/RESPONSE 2022-07-07 06:01:00 Doctor Unassigned, [place] [facility] EXTERNAL PROVIDER RECORDS 2022-06-23 06:01:00 Do ctor Unassigned, [place] [facility] REFERRAL- REQUEST/RESPONSE 2022-06-02 06:01:00 Doctor Unassigned, [place] [facility] REFERRAL- REQUEST/RESPONSE 2022-05-11 05:01:00 Doctor Unassigned, [place] [facility] DME/SUPPLY JUSTIFICATION 2022-04-28 05:01:00 Doc tor Unassigned, [place] [facility] PHYSICIAN ORDERS 2022-04-12 05:01:00 Doctor Miriams signed, [place] [facility] FLU VACC ([id number]), 6 MO-64 YRS, .5ML, IM, QUAD (FLUCELVAX) 2022-04-08 19:25:44 Manisha Norris [facility] SARS-COV-2 COVID-19 VACCINE 18 YRS+, BIVALENT 0.5ML, IM (MODERNA BOOSTER) 2022-04-08 19:25:44 Manisha Norris [facility] INSURANCE CORRESPONDENCE 2022-04-04 05:01:00 Doc felipa Unassigned, [place] [facility] HOME HEALTH - OTHER 2022-03-24 05:01:00 Doctor Donna ty, [place] [facility] INSURANCE CORRESPONDENCE 2022-03-08 05:01:00 Doc tor Unassigned, [place] [facility] Encounters Start Date/Time End Date/Time Encounter Type Admission Type Attending [facility] Facility Care Department Encounter ID Source 2023-09-07 13:19:00 Outpatient Franko Thakur [facility] [id number] [facility] 2022-12-19 08:36:01 Outpatient Franko Thakur [facility] [id number] [facility] 2022-11-29 07:06:00 Outpatient Franko Thakur [facility] [id number] [facility] 2022-05-23 11:12:01 Outpatient Franko Thakur [facility] [id number] [facility] 2020-05-28 14:35:00 Inpatient 3 Corwin Claros, Corwin [employer] [id number] [facility] 2024-06-06 15:40:00 2024-06-06 15:40:00 Outpatient JANEL CARLOS [facility] [id number] [facility] 2023-10-10 14:00:00 2023-10-10 14:00:00 Outpatient R BELTRAN-ALEX S, RIVKA BELTRAN-ALEX S, RIVKA [facility] [id number] [facility] 2023-10-06 13:15:00 2023-10-06 13:15:00 Outpatient MNAISHA ALONZO LAURA [facility] [id number] [facility] 2023-08-29 00:00:00 2023-08-29 00:00:00 Telephone Emilie Peres [facility] ([facility] 1.2.840.114 350.1.13.10 4.2.7.2.686 [id number] [facility] 2023-08-09 00:00:00 2023-08-09 00:00:00 Orders Only Doctor Unassigned, [place] [facility] 1.2.840.114 350.1.13.10 4.2.7.2.686 [id number] [facility] 2023-08-03 00:00:00 2023-08-03 00:00:00 Refill Franko Thakur [facility] 1.2.840.114 350.1.13.10 4.2.7.2.686 [id number] [facility] 2023-07-30 00:00:00 2023-07-30 00:00:00 Patient Secure Msg Gwendolyn , Janel Bonny [facility] 1.2840.114 350.1.13.10 4.2.7.2.686 [id number] [facility] 2023-07-28 11:30:00 2023-07-28 11:30:00 Outpatient R DON S, RIVKA DON S, RIVKA [facility] [id number] [facility] 2023-07-14 00:00:00 2023-07-14 00:00:00 Outpatient Amanda Cervantes [facility] [id number] [facility] 2023-07-06 00:00:00 2023-07-06 00:00:00 Patient Secure Msg Manisha Norris [facility] 1.2.840.114 350.1.13.10 4.2.7.2.686 [id number] [facility] 2023-07-04 00:00:00 2023-07-04 00:00:00 Patient Secure Msg Manisha Norris [facility] 1.2.840.114 350.1.13.10 4.2.7.2.686 [id number] [facility] 2023-07-04 00:00:00 2023-07-04 00:00:00 Refill Manisha Norris [facility] 1.2.840.114 350.1.13.10 4.2.7.2.686 [id number] [facility] 2023-06-26 00:00:00 2023-06-26 00:00:00 Patient Secure Msg Doctor Unassigned, [place] [facility] 1.84.114 350.1.13.10 4.2.7.2.686 [id number] [facility] 2023-06-14 16:28:25 2023-06-14 23:59:00 Hospital Encounter Janel Snow [facility] 1.84.114 350.1.13.10 4.2.7.2.686 [id number] [facility] 2023-06-14 15:40:00 2023-06-14 16:19:45 Outpatient R JANEL SNOW [facility] [id number] [facility] 2023-06-14 15:40:00 2023-06-14 16:19:45 Office Visit Gwendolyn Janel Bonny [facility] 1.84.114 350.1.13.10 4.2.7.2.686 [id number] [facility] 2023-06-12 13:30:00 2023-06-12 13:30:00 Outpatient FRANKO SMITH [facility] [id number] [facility] 2023-05-30 00:00:00 2023-05-30 00:00:00 Orders Only Doctor Unassigned, [place] [facility] 1.84.114 350.1.13.10 4.2.7.2.686 [id number] [facility] 2023-05-27 00:00:00 2023-05-27 00:00:00 Patient Secure Msg Manisha Norris [facility] 1.2.840.114 350.1.13.10 4.2.7.2.686 [id number] [facility] 2023-05-22 00:00:00 2023-05-22 00:00:00 Patient Secure Manisha Pathak [facility] 1.2.840.114 350.1.13.10 4.2.7.2.686 [id number] [facility] 2023-05-21 00:00:00 2023-05-21 00:00:00 Patient Secure Manisha Pathak [facility] 1.2840.114 350.1.13.10 4.2.7.2.686 [id number] [facility] 2023-05-03 00:00:00 2023-05-03 00:00:00 Outpatient R JANEL SNOW [facility] [id number] [facility] 2023-05-01 00:00:00 2023-05-01 00:00:00 David Rogers [facility] 1.2840.114 350.1.13.10 4.2.7.2.686 [id number] [facility] 2023-05-01 00:00:00 2023-05-01 00:00:00 Patient Secure g Manisha Norris [facility] 1.2.840.114 350.1.13.10 4.2.7.2.686 [id number] [facility] 2023-04-13 00:00:00 2023-04-13 00:00:00 Telephone Jnael Snow [facility] 1.2.840.114 350.1.13.10 4.2.7.2.686 [id number] [facility] 2023-04-10 00:00:00 2023-04-10 00:00:00 Telephone Gwendolyn , Janel M [facility] 1.2.840.114 350.1.13.10 4.2.7.2.686 [id number] [facility] 2023-04-04 14:15:00 2023-04-04 14:30:00 Shorthand Reporter Visit Pcp-Lab Manisha Norris [facility] 1.2.840.114 350.1.13.10 4.2.7.2.686 [id number] [facility] 2023-04-04 14:15:00 2023-04-04 14:15:00 Outpatient R MANISHA NORRIS LAURA [facility] [id number] [facility] 2023-04-04 13:45:00 2023-04-04 14:06:20 Office Visit Manisha Norris [facility] 1.2.840.114 350.1.13.10 4.2.7.2.686 [id number] [facility] 2023-04-04 00:00:00 2023-04-04 00:00:00 Orders Only Doctor Unassigned, [place] [facility] 1.2.840.114 350.1.13.10 4.2.7.2.686 [id number] [facility] 2023-04-04 00:00:00 2023-04-04 00:00:00 Patient Secure Msg Manisha Norris [facility] 1.2.840.114 350.1.13.10 4.2.7.2.686 [id number] [facility] 2023-03-23 00:00:00 2023-03-23 00:00:00 Refill Manisha Norris [facility] 1.2.840.114 350.1.13.10 4.2.7.2.686 [id number] [facility] 2023-03-23 00:00:00 2023-03-23 00:00:00 Manisha Wisdom [facility] 1..114 350.1.13.10 4.2.7.2.686 [id number] [facility] 2023-03-21 00:00:00 2023-03-21 00:00:00 Telephone Janel Snow [facility] 1.114 350.1.13.10 4.2.7.2.686 [id number] [facility] 2023-02-28 00:00:00 2023-02-28 00:00:00 Orders Only Doctor Unassigned, [place] [facility] 1..114 350.1.13.10 4.2.7.2.686 [id number] [facility] 2023-01-18 13:00:00 2023-01-18 13:00:00 Outpatient FRANKO SMITH [facility] [id number] [facility] 2023-01-09 15:06:46 2023-01-09 23:59:00 Outpatient FRANKO SMITH [facility] [id number] [facility] 2023-01-09 15:00:00 2023-01-09 23:59:00 Hospital Encounter Franko Thakur [facility] 1..114 350.1.13.10 4.2.7.2.686 [id number] [facility] 2023-01-09 16:00:00 2023-01-09 16:26:29 Office Visit Rivka Solo [facility] 1..114 350.1.13.10 4.2.7.2.686 [id number] [facility] 2023-01-04 00:00:00 2023-01-04 00:00:00 Telephone Janel Snow [facility] 1.114 350.1.13.10 4.2.7.2.686 [id number] [facility] 2023-01-03 11:15:00 2023-01-03 11:15:00 Outpatient R JANEL SNOW [facility] [id number] [facility] 2022-12-30 00:00:00 2022-12-30 00:00:00 Telephone Janel Snow [facility] [facility] 1.114 350.1.13.10 4.2.7.2.686 [id number] 044 [id number] [facility] 2022-12-20 13:15:00 2022-12-20 13:45:00 Office Visit Manisha Norris [facility] 1.114 350.1.13.10 4.2.7.2.686 [id number] [facility] 2022-12-20 13:15:00 2022-12-20 13:15:00 Outpatient R MANISHA NORRIS [facility] [id number] [facility] 2022-12-20 00:00:00 2022-12-20 00:00:00 Telephone Janel Snow [facility] 1.114 350.1.13.10 4.2.7.2.686 [id number] [id number] [facility] 2022-12-16 00:00:00 2022-12-16 00:00:00 Orders Only Doctor Unassigned, [place] [facility] 1.114 350.1.13.10 4.2.7.2.686 [id number] [id number] [facility] 2022-12-14 12:48:38 2022-12-14 23:59:00 Hospital Encounter Rosales Chiu [facility] 1.2840.114 350.1.13.10 4.2.7.2.686 [id number] [facility] 2022-12-14 12:48:14 2022-12-14 23:59:00 Outpatient R ARAM [facility] [id number] [facility] 2022-12-14 12:48:14 2022-12-14 23:59:00 Hospital Encounter Aram [facility] 1.84.114 350.1.13.10 4.2.7.2.686 [id number] [facility] 2022-12-08 10:45:00 2022-12-08 11:00:00 Shorthand Reporter Visit Lab, [facility] - Janel Ng [facility] 1.840.114 350.1.13.10 4.2.7.2.686 [id number] [facility] 2022-12-08 09:40:00 2022-12-08 10:34:05 Outpatient R JANEL SNOW [facility] [id number] [facility] 2022-12-08 09:40:00 2022-12-08 10:34:05 Office Visit Janel Snow [facility] 1.840.114 350.1.13.10 4.2.7.2.686 [id number] [facility] 2022-11-30 00:00:00 2022-11-30 00:00:00 Manisha Wisdom [facility] 1.2.840.114 350.1.13.10 4.2.7.2.686 [id number] [facility] 2022-11-21 00:00:00 2022-11-21 00:00:00 Refill Manisha Norris [facility] 1.2.840.114 350.1.13.10 4.2.7.2.686 [id number] [id number] [facility] 2022-11-15 00:00:00 2022-11-15 00:00:00 Telephone Smiley Umberto Thomas [facility] 1.2840.114 350.1.13.10 4.2.7.2.686 [id number] [facility] 2022-11-14 00:00:00 2022-11-14 00:00:00 Orders Only Doctor Unassigned, [place] [facility] 1.2.840.114 350.1.13.10 4.2.7.2.686 [id number] [id number] [facility] 2022-10-24 14:05:22 2022-10-24 23:59:00 Outpatient MANISHA ALONZO [facility] [id number] [facility] 2022-10-24 14:05:22 2022-10-24 23:59:00 Hospital Encounter Manisha Norris [facility] 1.2.840.114 350.1.13.10 4.2.7.2.686 [id number] [facility] 2022-10-24 00:00:00 2022-10-24 00:00:00 Orders Only Doctor Unassigned, [place] [facility] 1.2.840.114 350.1.13.10 4.2.7.2.686 [id number] [facility] 2022-10-13 15:00:00 2022-10-13 15:44:45 Outpatient R BABITA SALDANA, [facility] [id number] [facility] 2022-10-13 15:00:00 2022-10-13 15:44:45 Office Visit Jeane Rasmussen, [facility] [place] 1.2.840.114 350.1.13.10 4.2.7.2.686 [id number] [id number] [facility] 2022-10-13 00:00:00 2022-10-13 00:00:00 Telephone Aram [facility] 1.2.840.114 350.1.13.10 4.2.7.2.686 [id number] [facility] 2022-10-12 00:00:00 2022-10-12 00:00:[address] [facility] BUILDING 1.2.840.114 350.1.13.10 4.2.7.2.686 [id number] [facility] 2022-10-11 00:00:00 2022-10-11 00:00:00 Manisha Wisdom [facility] 1.2.840.114 350.1.13.10 4.2.7.2.686 [id number] [id number] [facility] 2022-10-07 14:15:00 2022-10-07 14:30:00 Shorthand Reporter Visit Pcp-Lab Manisha Norris [facility] 1.2.840.114 350.1.13.10 4.2.7.2.686 [id number] [facility] 2022-10-07 13:45:00 2022-10-07 13:56:24 Outpatient R MANISHA NORRIS [facility] [id number] [facility] 2022-10-07 13:45:00 2022-10-07 13:56:24 Office Visit Manisha Norris [facility] 1.2840.114 350.1.13.10 4.2.7.2.686 [id number] [id number] [facility] 2022-10-07 00:00:00 2022-10-07 00:00:00 Telephone Rosales Chiu [facility] 1.2.840.114 350.1.13.10 4.2.7.2.686 [id number] [facility] 2022-10-05 13:30:00 2022-10-05 14:14:44 Outpatient R ARAMAIDANCY [facility] [id number] [facility] 2022-10-05 13:30:00 2022-10-05 14:14:44 Office Visit ZeuspamelaRosales barber [facility] 1.2.840.114 350.1.13.10 4.2.7.2.686 [id number] [facility] 2022-10-05 00:00:00 2022-10-05 00:00:00 Orders Only Doctor Unassigned, [place] [facility] 1.2840.114 350.1.13.10 4.2.7.2.686 [id number] [facility] 2022-10-03 15:00:00 2022-10-03 15:00:00 Outpatient R LICO WHITE YU [facility] [id number] [facility] 2022-09-23 00:00:00 2022-09-23 00:00:00 Orders Only Doctor Unassigned, [place] [facility] 1.2840.114 350.1.13.10 4.2.7.2.686 [id number] [id number] [facility] 2022-09-15 00:00:00 2022-09-15 00:00:00 Patient Secure Msg Franko Thakur [facility] [place] 1.2.840.114 350.1.13.10 4.2.7.2.686 [id number] 044 [id number] [facility] 2022-09-13 00:00:00 2022-09-13 00:00:00 Patient Secure g Franko Thakur [facility] [place] 1.2.840.114 350.1.13.10 4.2.7.2.686 [id number] 044 [id number] [facility] 2022-09-12 00:00:00 2022-09-12 00:00:00 Patient Secure Franko Mcrae [facility] [place] 1.2.840.114 350.1.13.10 4.2.7.2.686 [id number] [id number] [facility] 2022-09-06 00:00:00 2022-09-06 00:00:00 Telephone Franko Thakur [facility] [place] 1.2.840.114 350.1.13.10 4.2.7.2.686 [id number] 044 [id number] [facility] 2022-09-06 00:00:00 2022-09-06 00:00:00 Patient Secure Franko Mcrae [facility] [place] 1.2.840.114 350.1.13.10 4.2.7.2.686 [id number] 044 [id number] [facility] 2022-08-31 14:30:00 2022-08-31 14:30:00 Outpatient ROSALES GUZMAN [facility] [id number] [facility] 2022-08-30 00:00:00 2022-08-30 00:00:00 Orders Only Doctor Unassigned, [place] [facility] 1.2.840.114 350.1.13.10 4.2.7.2.686 [id number] [id number] [facility] 2022-08-24 00:00:00 2022-08-24 00:00:00 Manisha Wisdom [facility] 1.2840.114 350.1.13.10 4.2.7.2.686 [id number] [id number] [facility] 2022-07-20 09:30:00 2022-07-20 09:45:00 Office Visit Franko Thakur [facility] 1.84.114 350.1.13.10 4.2.7.2.686 [id number] 044 [id number] [facility] 2022-07-20 09:30:00 2022-07-20 09:30:50 Outpatient R FRANKO THAKUR [facility] [id number] [facility] 2022-07-07 00:00:00 2022-07-07 00:00:00 Orders Only Doctor Unassigned, [place] [facility] 1.840.114 350.1.13.10 4.2.7.2.686 [id number] [id number] [facility] 2022-06-30 00:00:00 2022-06-30 00:00:00 Telephone [facility] 1.840.114 350.1.13.10 4.2.7.2.686 [id number] [facility] 2022-06-27 00:00:00 2022-06-27 00:00:00 Telephone Umberto Saul [facility] [place] 1.2840.114 350.1.13.10 4.2.7.2.686 [id number] [facility] 2022-06-24 00:00:00 2022-06-24 00:00:00 Telephone [facility]mber[facility] 1.84.114 350.1.13.10 4.2.7.2.686 [id number] [id number] [facility] 2022-06-23 00:00:00 2022-06-23 00:00:00 Orders Only Doctor Unassigned, [place] [facility] 1..114 350.1.13.10 4.2.7.2.686 [id number] 009 [id number] [facility] 2022-06-21 00:00:00 2022-06-21 00:00:00 Patient Secure Msg Doctor Unassigned, [place] [facility] 1.84.114 350.1.13.10 4.2.7.2.686 [id number] 019 [id number] [facility] 2022-06-15 14:20:00 2022-06-15 14:20:00 Outpatient R SUNIL NAQVI [facility] [id number] [facility] 2022-06-14 16:15:00 2022-06-14 16:15:00 Office Visit Aram Rosales [facility] BUILDING 1.840.114 350.1.13.10 4.2.7.2.686 [id number] [facility] 2022-06-14 16:15:00 2022-06-14 13:57:54 Outpatient R ARAM [facility] [id number] [facility] 2022-06-14 00:00:00 2022-06-14 00:00:00 Telephone Aram Rosales [facility] BUILDING 1..840.114 350.1.13.10 4.2.7.2.686 [id number] [facility] 2022-06-02 00:00:00 2022-06-02 00:00:00 Orders Only Doctor Unassigned, [place] [facility] 1.2.840.114 350.1.13.10 4.2.7.2.686 [id number] [id number] [facility] 2022-05-30 00:00:00 2022-05-30 00:00:00 Telephone Umberto Saul [facility] BUILD[facility] 1.2840.114 350.1.13.10 4.2.7.2.686 [id number] [facility] 2022-05-11 00:00:00 2022-05-11 00:00:00 Orders Only Doctor Unassigned, [place] [facility] 1.2.840.114 350.1.13.10 4.2.7.2.686 [id number] [id number] [facility] 2022-05-03 00:00:00 2022-05-03 00:00:00 Telephone Umberto Saul [facility] BUILDING 1.2840.114 350.1.13.10 4.2.7.2.686 [id number] [facility] 2022-04-28 00:00:00 2022-04-28 00:00:00 Orders Only Doctor Unassigned, [place] [facility] 1.2840.114 350.1.13.10 4.2.7.2.686 [id number] [facility] 2022-04-26 00:00:00 2022-04-26 00:00:00 Telephone Leela Bonilla [facility] BUILDING 1.2840.114 350.1.13.10 4.2.7.2.686 [id number] [facility] 2022-04-12 00:00:00 2022-04-12 00:00:00 Orders Only Doctor Unassigned, [place] [facility] 1.840.114 350.1.13.10 4.2.7.2.686 [id number] 009 [id number] [facility] 2022-04-11 00:00:00 2022-04-11 00:00:00 Telephone [facility] 1..840.114 350.1.13.10 4.2.7.2.686 [id number] [id number] [facility] 2022-04-08 14:45:00 2022-04-08 15:00:00 Shorthand Reporter Visit Pcp-Manisha Shields [facility] 1.2.840.114 350.1.13.10 4.2.7.2.686 [id number] [facility] 2022-04-08 13:45:00 2022-04-08 14:35:25 Outpatient MANISHA ALONZO [facility] [id number] [facility] 2022-04-08 13:45:00 2022-04-08 14:35:25 Office Visit Manisha Norris [facility] 1.2.840.114 350.1.13.10 4.2.7.2.686 [id number] [facility] 2022-04-08 13:45:00 2022-04-08 13:45:00 Outpatient MANISHA ALONZO [facility] [id number] [facility] 2022-04-08 13:45:00 2022-04-08 13:45:00 Outpatient MANISHA ALONZO [facility] [id number] [facility] 2022-04-08 13:45:00 2022-04-08 13:45:00 Outpatient MANISHA ALONZO [facility] [id number] [facility] 2022-04-08 13:45:00 2022-04-08 13:45:00 Outpatient MANISHA ALONZO [facility] [id number] [facility] 2022-04-08 13:45:00 2022-04-08 13:45:00 Outpatient MANISHA ALONZO [facility] [id number] [facility] 2022-04-04 00:00:00 2022-04-04 00:00:00 Orders Only Doctor Unassigned, [place] [facility] 1.2840.114 350.1.13.10 4.2.7.2.686 [id number] [id number] [facility] 2022-03-28 00:00:00 2022-03-28 00:00:00 Telephone Umberto Saul [facility] 1.840.114 350.1.13.10 4.2.7.2.686 [id number] [facility] 2022-03-25 00:00:00 2022-03-25 00:00:00 Refill Guerita Alonso [facility] 1.840.114 350.1.13.10 4.2.7.2.686 [id number] [facility] 2022-03-24 00:00:00 2022-03-24 00:00:00 Orders Only Doctor Unassigned, [place] [facility] 1.840.114 350.1.13.10 4.2.7.2.686 [id number] [id number] [facility] 2022-03-22 00:00:00 2022-03-22 00:00:00 Patient Secure [facility]ales [facility] 1.2840.114 350.1.13.10 4.2.7.2.686 [id number] [facility] 2022-03-18 00:00:00 2022-03-18 00:00:00 Patient Secure Manisha Pathak A [facility] 1.840.114 350.1.13.10 4.2.7.2.686 [id number] [id number] [facility] 2022-03-17 13:00:00 2022-03-17 13:15:00 Office Visit Dixie Alanis [facility] 1.840.114 350.1.13.10 4.2.7.2.686 [id number] [facility] 2022-03-17 13:00:00 2022-03-17 13:00:00 Outpatient R DIXIE ALANIS [facility] [id number] [facility] 2022-03-15 00:00:00 2022-03-15 00:00:00 Outpatient Tere CHIU ROSALES [facility] [id number] [facility] 2022-03-15 00:00:00 2022-03-15 00:00:00 Outpatient R ARAM [facility] [id number] [facility] 2022-03-15 00:00:00 2022-03-15 00:00:00 Outpatient Tere CHIU [facility] [id number] [facility] 2022-03-09 00:00:00 2022-03-09 00:00:00 Patient Secure Msg Annabelle [facility] 1.840.114 350.1.13.10 4.2.7.2.686 [id number] [facility] 2022-03-08 00:00:00 2022-03-08 00:00:00 Telephone Franko Thakur [facility] 1..840.114 350.1.13.10 4.2.7.2.686 [id number] [id number] [facility] 2022-03-08 00:00:00 2022-03-08 00:00:00 Orders Only Doctor Unassigned, [place] [facility] 1.2.840.114 350.1.13.10 4.2.7.2.686 [id number] [facility] 2022-03-07 00:00:00 2022-03-07 00:00:00 Orders Only Doctor Unassigned, [place] [facility] 1.2840.114 350.1.13.10 4.2.7.2.686 [id number] [facility] 2022-03-04 00:00:00 2022-03-04 00:00:00 Patient Secure Msg Manisha Norris [facility] 1.2840.114 350.1.13.10 4.2.7.2.686 [id number] [id number] [facility] 2022-03-04 00:00:00 2022-03-04 00:00:00 Orders Only Doctor Unassigned, [place] [facility] 1.2840.114 350.1.13.10 4.2.7.2.686 [id number] [id number] [facility] 2022-03-03 00:00:00 2022-03-03 00:00:00 Patient Secure Msg Doctor Unassigned, [place] [facility] 1.2840.114 350.1.13.10 4.2.7.2.686 [id number] [facility] 2022-02-28 00:00:00 2022-02-28 00:00:00 [facility] 1.2840.114 350.1.13.10 4.2.7.2.686 [id number] [facility] 2022-02-25 09:05:00 2022-02-25 23:59:00 Outpatient DIXIE BENSON [facility] [id number] [facility] 2022-02-25 09:05:00 2022-02-25 23:59:00 Outpatient DIXIE BENSON [facility] [id number] [facility] 2022-02-25 09:30:00 2022-02-25 09:45:00 Office Visit Dixie Alanis [facility] 1.2.840.114 350.1.13.10 4.2.7.2.686 [id number] [facility] 2022-02-25 09:30:00 2022-02-25 09:30:00 Outpatient DIXIE BENSON [facility] [id number] [facility] 2022-02-24 00:00:00 2022-02-24 00:00:00 Telephone Umberto Saul [facility] 1..840.114 350.1.13.10 4.2.7.2.686 [id number] [facility] 2022-02-20 00:00:00 2022-02-20 00:00:00 Franko Nguyễn [facility] 1..840.114 350.1.13.10 4.2.7.2.686 [id number] [id number] [facility] 2022-02-15 00:00:00 2022-02-15 00:00:00 Orders Only Doctor Unassigned, [place] [facility] 1.840.114 350.1.13.10 4.2.7.2.686 [id number] [facility] 2022-02-14 14:40:00 2022-02-14 23:59:00 Outpatient DIXIE BENSON [facility] [id number] [facility] 2022-02-14 14:40:00 2022-02-14 23:59:00 Outpatient DIXIE BENSON [facility] [id number] [facility] 2022-02-14 14:40:00 2022-02-14 23:59:00 Outpatient Tere ANNABELLE [facility] [id number] [facility] 2022-02-14 14:00:00 2022-02-14 15:49:45 Outpatient Tere ALANIS [facility] [id number] [facility] 2022-02-14 14:00:00 2022-02-14 15:49:45 Office Visit Umberto Saul [facility]?YESENIAGeoffrey [facility] 1.2840.114 350.1.13.10 4.2.7.2.686 [id number] [facility] 2022-02-14 00:00:00 2022-02-14 00:00:00 Orders Only Doctor Unassigned, [place] [facility] 1.20.114 350.1.13.10 4.2.7.2.686 [id number] 009 [id number] [facility] 2022-02-11 00:00:00 2022-02-11 00:00:00 Orders Only Doctor Unassigned, [place] [facility] 1.2840.114 350.1.13.10 4.2.7.2.686 [id number] [facility] 2022-02-09 00:00:00 2022-02-09 00:00:00 Telephone Franko Thakur [facility] 1.2840.114 350.1.13.10 4.2.7.2.686 [id number] 044 [id number] [facility] 2022-02-08 00:00:00 2022-02-08 00:00:00 Telephone Ofe [facility]?YESENIAGeoffrey [facility] 1.284.114 350.1.13.10 4.2.7.2.686 [id number] [facility] 2022-02-08 00:00:00 2022-02-08 00:00:00 Telephone Umberto Saul [facility] 1.840.114 350.1.13.10 4.2.7.2.686 [id number] [facility] 2022-02-07 13:30:00 2022-02-07 13:30:00 Outpatient Tere ALANIS DIXIE [facility] [id number] [facility] 2022-02-07 13:30:00 2022-02-07 13:30:00 Outpatient Tere ALANIS DIXIE [facility] [id number] [facility] 2022-02-07 13:30:00 2022-02-07 13:30:00 Outpatient Tere ALANIS [facility] [id number] [facility] 2022-02-07 13:30:00 2022-02-07 13:30:00 Outpatient Tere ALANIS DIXIE [facility] [id number] [facility] 2022-02-07 13:30:00 2022-02-07 13:30:00 Outpatient DIXIE B[facility]SON [facility] [id number] [facility] 2022-02-07 00:00:00 2022-02-07 00:00:00 Franko Nguyễn [facility] 1.840.114 350.1.13.10 4.2.7.2.686 [id number] [facility] 2022-02-07 00:00:00 2022-02-07 00:00:00 Telephone Umberto Saul [facility] 1..840.114 350.1.13.10 4.2.7.2.686 [id number] [facility] 2022-02-06 00:00:00 2022-02-06 00:00:00 Orders Only Doctor Unassigned, [place] [facility] 1.2.840.114 350.1.13.10 4.2.7.2.686 [id number] [facility] 2022-02-03 00:00:00 2022-02-03 00:00:00 Telephone Umberto Saul [facility] 1.2.840.114 350.1.13.10 4.2.7.2.686 [id number] [facility] 2022-02-01 00:00:00 2022-02-01 00:00:00 Transition of Kasandra Ware SHERYL HERNANDEZ 1.2.840.114 350.1.13.10 4.2.7.2.686 [id number] [facility] 2022-02-01 00:00:00 2022-02-01 00:00:00 Telephone Saul, Umberto Martha [facility] 1.2.840.114 350.1.13.10 4.2.7.2.686 [id number] [facility] 2022-01-31 07:00:00 2022-01-31 20:05:00 Outpatient R UMBERTO SAUL [facility] [id number] [facility] 2022-01-31 07:00:00 2022-01-31 20:05:00 Hospital Encounter Umberto Saul [facility] 1.2.840.114 350.1.13.10 4.2.7.2.686 [id number] [facility] 2022-01-31 07:00:00 2022-01-31 20:05:00 Outpatient R UMBERTO SAUL [facility] [id number] [facility] 2022-01-31 07:00:00 2022-01-31 20:05:00 Outpatient R JOS SAULIG [facility] [id number] [facility] 2022-01-31 07:00:00 2022-01-31 20:05:00 Outpatient R UMBERTO SAUL [facility] S[facility] [id number] [facility] 2022-01-31 07:00:00 2022-01-31 20:05:00 Outpatient R JOS SAULIG [facility] [id number] [facility] 2022-01-31 09:34:00 2022-01-31 12:12:00 Anesthesia Event Dinh Phillips Fernando [facility] 1.2840.114 350.1.13.10 4.2.7.2.686 [id number] [facility] 2022-01-31 09:45:00 2022-01-31 12:11:00 Surgery Umberto Saul [facility] 1.2840.114 350.1.13.10 4.2.7.2.686 [id number] [facility] 2022-01-31 00:00:00 2022-01-31 00:00:00 Orders Only Doctor Unassigned, [place] [facility] 1.2840.114 350.1.13.10 4.2.7.2.686 [id number] [facility] 2022-01-29 00:00:00 2022-01-29 00:00:00 Orders Only Doctor Unassigned, [place] [facility] 1.2840.114 350.1.13.10 4.2.7.2.686 [id number] [facility] 2022-01-28 10:15:00 2022-01-28 10:30:00 Laboratory Only Only, Adc Test Umberto Saul [facility] 1.2840.114 350.1.13.10 4.2.7.2.686 [id number] [facility] 2022-01-28 10:15:00 2022-01-28 10:15:00 Outpatient R UMBERTO SAUL [facility] [id number] [facility] 2022-01-27 13:00:00 2022-01-27 16:30:58 Outpatient R UMBERTO SAUL [facility] [id number] [facility] 2022-01-27 13:00:00 2022-01-27 16:30:58 Outpatient R UMBERTO SAUL [facility] [id number] [facility] 2022-01-27 15:15:00 2022-01-27 15:30:00 Shorthand Reporter Visit Pokelli, Adc Lab Main Umberto Saul [facility] 1..840.114 350.1.13.10 4.2.7.2.686 [id number] [facility] 2022-01-27 14:46:01 2022-01-27 14:48:00 Outpatient R UMBERTO SAUL [facility] [id number] [facility] 2022-01-27 14:00:00 2022-01-27 14:48:00 Hospital Encounter Umberto Saul [facility] 1..840.114 350.1.13.10 4.2.7.2.686 [id number] [facility] 2022-01-27 13:00:00 2022-01-27 13:45:00 Ancillary Visit Donna LowryUmberto kaplan Martha [facility] 1..840.114 350.1.13.10 4.2.7.2.686 [id number] [facility] 2022-01-27 13:00:00 2022-01-27 13:00:00 Outpatient R UMBERTO SAUL [facility] [id number] [facility] 2022-01-27 00:00:00 2022-01-27 00:00:00 Orders Only Doctor Unassigned, [place] [facility] 1.2840.114 350.1.13.10 4.2.7.2.686 [id number] [facility] 2022-01-13 00:00:00 2022-01-13 00:00:00 Prep For Surgery Umberto Saul [facility] 1.84.114 350.1.13.10 4.2.7.2.686 [id number] [facility] 2022-01-11 00:00:00 2022-01-11 00:00:00 Orders Only Doctor Unassigned, [place] [facility] 1.2840.114 350.1.13.10 4.2.7.2.686 [id number] [facility] 2022-01-07 00:00:00 2022-01-07 00:00:00 Patient Secure Buddy Zhang [facility] 1.84.114 350.1.13.10 4.2.7.2.686 [id number] [facility] 2022-01-05 11:26:51 2022-01-05 23:59:00 Outpatient MANISHA ALONZO [facility] [id number] [facility] 2022-01-05 11:26:51 2022-01-05 23:59:00 Outpatient MANISHA ALONZO [facility] [id number] [facility] 2022-01-05 11:26:51 2022-01-05 23:59:00 Hospital Encounter Manisha Norris [facility] 1.284.114 350.1.13.10 4.2.7.2.686 [id number] [facility] 2022-01-05 11:26:51 2022-01-05 23:59:00 Outpatient MANISHA ALONZO [facility] [id number] [facility] 2022-01-05 11:26:51 2022-01-05 23:59:00 Outpatient MANISHA ALONZO [facility] [id number] [facility] 2022-01-05 11:15:00 2022-01-05 11:16:23 Outpatient MANISHA ALONZO [facility] [id number] [facility] 2022-01-05 11:15:00 2022-01-05 11:16:23 Office Visit Manisha Norris [facility] 1.2.840.114 350.1.13.10 4.2.7.2.686 [id number] [facility] 2022-01-05 11:15:00 2022-01-05 11:15:00 Outpatient MANISHA ALONZO [facility] [id number] [facility] 2022-01-03 14:00:00 2022-01-03 14:15:00 Office Visit Dixie Alanis [facility] 1.2.840.114 350.1.13.10 4.2.7.2.686 [id number] [facility] 2022-01-03 14:00:00 2022-01-03 14:00:00 Outpatient DIXIE BENSON [facility] [id number] [facility] 2021-12-31 00:00:00 2021-12-31 00:00:00 Telephone Umberto Saul [facility] 1.2.840.114 350.1.13.10 4.2.7.2.686 [id number] [facility] 2021-12-31 00:00:00 2021-12-31 00:00:00 Telephone [facility] 1.2.840.114 350.1.13.10 4.2.7.2.686 [id number] [facility] 2021-12-31 00:00:00 2021-12-31 00:00:00 Patient Secure Msg Doctor Unassigned, [place] [facility] BU[facility] 1.2.840.114 350.1.13.10 4.2.7.2.686 [id number] [facility] 2021-12-30 00:00:00 2021-12-30 00:00:00 Patient Secure [facility] 1.2.840.114 350.1.13.10 4.2.7.2.686 [id number] [facility] 2021-12-30 00:00:00 2021-12-30 00:00:00 Patient Secure Msg Doctor Unassigned, [place] [facility] 1.2.840.114 350.1.13.10 4.2.7.2.686 [id number] [facility] 2021-12-29 15:49:46 2021-12-29 23:59:00 Outpatient R GUANAKOREBECAFORMERLY [facility] [id number] [facility] 2021-12-29 15:49:46 2021-12-29 23:59:00 Outpatient [facility] [id number] [facility] 2021-12-15 14:20:00 2021-12-15 14:20:00 [facility] 1.2.840.114 350.1.13.10 4.2.7.2.686 [id number] [facility] 2021-12-15 14:20:00 2021-12-15 14:17:40 Outpatient R GUANAKO, [facility]ERLY [facility] [id number] [facility] 2021-12-15 14:20:00 2021-12-15 14:17:40 Outpatient R REBECA MUJICAFORMERLY [facility] [id number] [facility] 2021-12-07 10:15:00 2021-12-07 10:30:00 [facility] 1.20.114 350.1.13.10 4.2.7.2.686 [id number] [facility] 2021-12-07 10:15:00 2021-12-07 10:15:00 Outpatient R FRANKO THAKUR [facility] [id number] [facility] 2021-12-03 00:00:00 2021-12-03 00:00:00 Patient Secure Msg Faith Hall [facility] BUILDING 1.840.114 350.1.13.10 4.2.7.2.686 [id number] [facility] 2021-12-03 00:00:00 2021-12-03 00:00:00 Orders Only Doctor Unassigned, [place] [facility] 1.2840.114 350.1.13.10 4.2.7.2.686 [id number] [facility] 2021-12-01 00:00:00 2021-12-01 00:00:00 Patient Secure Msg Aram Rosales [facility] BUILDING 1.0.114 350.1.13.10 4.2.7.2.686 [id number] [facility] 2021-11-23 14:21:11 2021-11-23 23:59:00 Hospital Encounter Aram Rosales [facility] 1.20.114 350.1.13.10 4.2.7.2.686 [id number] [facility] 2021-11-23 00:00:00 2021-11-23 23:59:00 Outpatient ROSALES GUZMAN [facility] [id number] [facility] 2021-11-23 00:00:00 2021-11-23 23:59:00 Outpatient Tere [facility] [id number] [facility] 2021-11-23 14:00:00 2021-11-23 14:20:00 Hospital Encounter Rosales Chiu [facility] 1.114 350.1.13.10 4.2.7.2.686 [id number] [facility] 2021-11-23 00:00:00 2021-11-23 14:20:00 Outpatient Tere [facility] [id number] [facility] 2021-11-23 00:00:00 2021-11-23 14:20:00 Outpatient Tere [facility] [id number] [facility] 2021-11-23 00:00:00 2021-11-23 00:00:00 Orders Only Doctor Unassigned, [place] [facility] 1.114 350.1.13.10 4.2.7.2.686 [id number] [facility] 2021-11-22 00:00:00 2021-11-22 00:00:00 Patient Secure Msg O[facility] BUILD[facility] 1.84.114 350.1.13.10 4.2.7.2.686 [id number] [facility] 2021-11-22 00:00:00 2021-11-22 00:00:00 Patient Secure Msg Ofe [facility] 1.114 350.1.13.10 4.2.7.2.686 [id number] [facility] 2021-11-16 00:00:00 2021-11-16 00:00:00 Patient Secure Msg Doctor Unassigned, [place] [facility] 1.2.840.114 350.1.13.10 4.2.7.2.686 [id number] [facility] 2021-11-08 00:00:00 2021-11-08 00:00:00 Patient Secure Msg Doctor Unassigned, [place] [facility] 1.2.840.114 350.1.13.10 4.2.7.2.686 [id number] [facility] 2021-11-05 11:00:00 2021-11-05 11:00:00 Office Visit Umberto Saul [facility] 1.2.840.114 350.1.13.10 4.2.7.2.686 [id number] [facility] 2021-11-05 11:00:00 2021-11-05 09:10:39 Outpatient R UMBERTO SAUL [facility] [id number] [facility] 2021-11-05 11:00:00 2021-11-05 09:10:39 Outpatient UMBERTO LAGOS [facility] [id number] [facility] 2021-11-05 11:00:00 2021-11-05 09:10:39 Outpatient R UMBERTO SAUL [facility] [id number] [facility] 2021-11-05 11:00:00 2021-11-05 09:10:39 Outpatient R UMBERTO SAUL [facility] [id number] [facility] 2021-11-02 00:00:00 2021-11-02 00:00:00 Telephone Manisha Norris [facility]AV[facility]ION 1.2840.114 350.1.13.10 4.2.7.2.686 [id number] [facility] 2021-10-26 00:00:00 2021-10-26 00:00:00 Patient Secure Msg Manisha Norris [facility] MULTISPEC [facility] 1.840.114 350.1.13.10 4.2.7.2.686 [id number] [facility] 2021-10-25 00:00:00 2021-10-25 00:00:00 Refill Manisha Norirs [facility] 1.840.114 350.1.13.10 4.2.7.2.686 [id number] [facility] 2021-10-14 00:00:00 2021-10-14 00:00:00 Patient Secure Msg Doctor Unassigned, [place] [facility] 1.840.114 350.1.13.10 4.2.7.2.686 [id number] [facility] 2021-10-08 00:00:00 2021-10-08 00:00:00 Patient Secure Msg Franko Thakur [facility] 1.0.114 350.1.13.10 4.2.7.2.686 [id number] [facility] 2021-10-07 00:00:00 2021-10-07 00:00:00 Telephone Manisha Norris [facility] 1..114 350.1.13.10 4.2.7.2.686 [id number] [facility] 2021-10-07 00:00:00 2021-10-07 00:00:00 Telephone Franko Thakur [facility] 1..840.114 350.1.13.10 4.2.7.2.686 [id number] [facility] 2021-10-05 12:04:52 2021-10-05 23:59:00 Outpatient MANISHA ALONZO [facility] [id number] [facility] 2021-10-05 12:04:52 2021-10-05 23:59:00 Hospital Encounter Manisha Norris [facility] 1.840.114 350.1.13.10 4.2.7.2.686 [id number] [facility] 2021-10-05 12:04:52 2021-10-05 23:59:00 Outpatient MANISHA ALONZO [facility] [id number] [facility] 2021-10-05 12:04:52 2021-10-05 23:59:00 Outpatient MANISHA AOLNZO [facility] [id number] [facility] 2021-10-05 12:04:52 2021-10-05 23:59:00 Outpatient MANISHA ALONZO [facility] [id number] [facility] 2021-10-05 12:15:00 2021-10-05 12:30:00 Shorthand Reporter Visit Pcp-Lab Manisha Norris [facility]AV[facility] 1..840.114 350.1.13.10 4.2.7.2.686 [id number] [facility] 2021-10-05 12:15:00 2021-10-05 12:15:00 Outpatient MANISHA ALONZO [facility] [id number] [facility] 2021-10-05 11:15:00 2021-10-05 11:50:24 Office Visit Manisha Norris [facility]AV[facility] 1..840.114 350.1.13.10 4.2.7.2.686 [id number] [facility] 2021-10-04 00:00:00 2021-10-04 00:00:00 Refill Manisha Norris [facility] 1.2.840.114 350.1.13.10 4.2.7.2.686 [id number] [facility] 2021-08-31 00:00:00 2021-08-31 00:00:00 Patient Secure Msg Gavin [facility] NAL BUILDING 1.2.840.114 350.1.13.10 4.2.7.2.686 [id number] [facility] 2021-08-30 00:00:00 2021-08-30 00:00:00 Telephone Alonso [facility] BUILDING 1.2.840.114 350.1.13.10 4.2.7.2.686 [id number] [facility] 2021-08-24 11:30:00 2021-08-24 12:16:13 Office Visit Alonso [facility] 1.2.840.114 350.1.13.10 4.2.7.2.686 [id number] [facility] 2021-08-24 11:30:00 2021-08-24 12:16:13 Outpatient R GAVIN [facility] [id number] [facility] 2021-08-24 11:30:00 2021-08-24 11:30:00 Outpatient R GAVIN [facility] [id number] [facility] 2021-08-24 00:00:00 2021-08-24 00:00:00 Refill Manisha Norris [facility]AV[facility]ION 1.2.840.114 350.1.13.10 4.2.7.2.686 [id number] [facility] 2021-08-13 00:00:00 2021-08-13 00:00:00 Refill Guerita Alonso [facility] BUILDING 1.2840.114 350.1.13.10 4.2.7.2.686 [id number] [facility] 2021-07-28 10:40:00 2021-07-28 11:00:00 Office Visit Leela Bonilla [facility] BUILDING 1.20.114 350.1.13.10 4.2.7.2.686 [id number] [facility] 2021-07-28 10:40:00 2021-07-28 10:40:00 [facility] [id number] [facility] 2021-07-28 10:40:00 2021-07-28 10:40:00 [facility] [id number] [facility] 2021-07-28 00:00:00 2021-07-28 00:00:00 Orders Only Doctor Unassigned, [place] [facility] 1.0.114 350.1.13.10 4.2.7.2.686 [id number] [facility] 2021-07-27 00:00:00 2021-07-27 00:00:00 Patient Secure Msg [facility] 1.20.114 350.1.13.10 4.2.7.2.686 [id number] [facility] 2021-07-20 00:00:00 2021-07-20 00:00:00 Orders Only Doctor Unassigned, [place] [facility] 1.2840.114 350.1.13.10 4.2.7.2.686 [id number] [facility] 2021-07-16 00:00:00 2021-07-16 00:00:00 Telephone Manisha Norris [facility] PR[facility] CARE PAVILLION 1.2.840.114 350.1.13.10 4.2.7.2.686 [id number] [facility] 2021-07-13 00:00:00 2021-07-13 00:00:00 Telephone Manisha Norris [facility]AV[facility]ION 1.2.840.114 350.1.13.10 4.2.7.2.686 [id number] [facility] 2021-07-06 12:14:46 2021-07-06 23:59:00 Hospital Encounter Manisha Norris [facility]IMARY CARE [place] 1.2.840.114 350.1.13.10 4.2.7.2.686 [id number] [facility] 2021-07-06 13:45:00 2021-07-06 14:00:00 Shorthand Reporter Visit Pcp-Lab JrAnthonya Geoffrey [facility] [place] 1.2.840.114 350.1.13.10 4.2.7.2.686 [id number] [facility] 2021-07-06 11:15:00 2021-07-06 12:04:47 Outpatient R MANISHA NORRIS [facility] [id number] [facility] 2021-07-06 11:15:00 2021-07-06 12:04:47 Outpatient R MANISHA NORRIS [facility] [id number] [facility] 2021-07-06 11:15:00 2021-07-06 12:04:47 Office Visit JrAnthonya Geoffrey [facility] [place] 1.2.840.114 350.1.13.10 4.2.7.2.686 [id number] [facility] 2021-07-06 11:15:00 2021-07-06 11:15:00 Outpatient MANISHA ALONZO [facility] [id number] [facility] 2021-06-29 00:00:00 2021-06-29 00:00:00 Orders Only Doctor Unassigned, [place] [facility] 1.2.840.114 350.1.13.10 4.2.7.2.686 [id number] [facility] 2021-06-17 00:00:00 2021-06-17 00:00:00 Telephone OfeFranko [facility]?YESENIAGeoffrey [facility] OFF[facility] BUILDING 1..840.114 350.1.13.10 4.2.7.2.686 [id number] [facility] 2021-06-17 00:00:00 2021-06-17 00:00:00 Orders Only Doctor Unassigned, [place] [facility] 1.2840.114 350.1.13.10 4.2.7.2.686 [id number] [facility] 2021-06-09 10:20:41 2021-06-09 23:59:00 Outpatient MANISHA ALONZO [facility] [id number] [facility] 2021-06-09 10:20:41 2021-06-09 23:59:00 Outpatient MANISHA ALONZO [facility] [id number] [facility] 2021-06-09 10:20:41 2021-06-09 23:59:00 Outpatient MANISHA ALONZO [facility] [id number] [facility] 2021-06-09 10:20:41 2021-06-09 23:59:00 Outpatient MANISHA ALONZO [facility] [id number] [facility] 2021-06-09 10:20:41 2021-06-09 23:59:00 Hospital Encounter Manisha Norris [facility] 1..840.114 350.1.13.10 4.2.7.2.686 [id number] [facility] 2021-06-09 10:20:27 2021-06-09 23:59:00 Hospital Encounter Manisha Norris Geoffrey [facility]ANC[facility]CO [facility] BUILDING 1.2.840.114 350.1.13.10 4.2.7.2.686 [id number] [facility] 2021-06-09 12:00:00 2021-06-09 12:00:00 Outpatient MANISHA ALONZO [facility] [id number] [facility] 2021-06-09 10:20:19 2021-06-09 10:35:19 Shorthand Reporter Visit Lab, Guilherme ThakurFranko [facility] MED[facility] OFFICE BUILDING 1.2.840.114 350.1.13.10 4.2.7.2.686 [id number] [facility] 2021-06-09 09:52:48 2021-06-09 10:07:48 Office Visit Deanrodriguez [facility] MED[facility] BUILDING 1.2.840.114 350.1.13.10 4.2.7.2.686 [id number] [facility] 2021-06-09 10:00:00 2021-06-09 10:00:00 Outpatient FRANKO SMITH [facility] [id number] [facility] 2021-06-08 10:45:00 2021-06-08 11:40:22 Outpatient MANISHA ALONZO [facility] [id number] [facility] 2021-06-08 10:45:00 2021-06-08 11:40:22 Outpatient MANISHA ALONZO [facility] [id number] [facility] 2021-06-08 10:30:31 2021-06-08 11:40:22 Office Visit Manisha Norris [facility] PAVILLION 1.114 350.1.13.10 4.2.7.2.686 [id number] [facility] 2021-06-08 10:45:00 2021-06-08 10:45:00 Outpatient MANISHA ALONZO [facility] [id number] [facility] 2021-06-08 00:00:00 2021-06-08 00:00:00 Telephone [facility] 1.114 350.1.13.10 4.2.7.2.686 [id number] [facility] 2021-06-08 00:00:00 2021-06-08 00:00:00 Orders Only Doctor Unassigned, [place] [facility] 1.114 350.1.13.10 4.2.7.2.686 [id number] [facility] 2021-06-07 08:45:00 2021-06-07 08:45:00 Outpatient R FRANKO THAKUR [facility] [id number] [facility] 2021-06-04 00:00:00 2021-06-04 00:00:00 Patient Secure Msg Doctor Unassigned, [place] [facility] 1.114 350.1.13.10 4.2.7.2.686 [id number] [facility] 2021-05-25 14:30:47 2021-05-25 23:59:00 Hospital Encounter Rosales Chiu [facility] 1.114 350.1.13.10 4.2.7.2.686 [id number] [facility] 2021-05-25 14:29:53 2021-05-25 14:29:53 Outpatient ROSALES GUZMAN [facility] [id number] [facility] 2021-05-25 14:29:53 2021-05-25 14:29:53 Hospital Encounter Rosales Chiu [facility] 1.284.114 350.1.13.10 4.2.7.2.686 [id number] [facility] 2021-05-25 00:00:00 2021-05-25 00:00:00 Case Management Aram Rosales [facility] 1.284.114 350.1.13.10 4.2.7.2.686 [id number] [facility] 2021-05-21 11:30:00 2021-05-21 11:30:00 Outpatient R [facility] [id number] [facility] 2021-05-21 11:30:00 2021-05-21 11:30:00 Outpatient R [facility] [id number] [facility] 2021-05-19 00:00:00 2021-05-19 00:00:00 Telephone [facility] 1.284.114 350.1.13.10 4.2.7.2.686 [id number] [facility] 2021-05-04 00:00:00 2021-05-04 00:00:00 Telephone Teresa Dejesus [facility] 1.2.840.114 350.1.13.10 4.2.7.2.686 [id number] [facility] 2021-04-28 00:00:00 2021-04-28 00:00:00 Orders Only Doctor Unassigned, [place] [facility] 1.2.840.114 350.1.13.10 4.2.7.2.686 [id number] [facility] 2021-04-21 14:41:37 2021-04-21 15:01:37 Office Visit TjnelidaLeela kaur [facility] 1.84.114 350.1.13.10 4.2.7.2.686 [id number] [facility] 2021-04-21 15:00:00 2021-04-21 15:00:00 Outpatient R LEELA BONILLA STRALAMartha [facility] [id number] [facility] 2021-04-07 19:30:00 2021-04-07 19:30:00 [facility] [id number] [facility] 2021-04-07 14:08:40 2021-04-07 16:38:40 [place] Reporter Visit 1, [facility] Sleep Lab Bed Leela Bonilla [facility] 1.84.114 350.1.13.10 4.2.7.2.686 [id number] [facility] 2021-04-06 13:30:00 2021-04-06 14:54:02 Outpatient ROSALES GUZMAN [facility] [id number] [facility] 2021-04-06 13:15:14 2021-04-06 13:45:14 Office Visit Rosales Chiu [facility] [facility] 1..114 350.1.13.10 4.2.7.2.686 [id number] [facility] 2021-04-06 13:30:00 2021-04-06 13:30:00 Outpatient ROSALES GUZMAN [facility] [id number] [facility] 2021-04-05 10:13:44 2021-04-05 10:28:44 Laboratory Only Only, Adc Test [facility] 1.840.114 350.1.13.10 4.2.7.2.686 [id number] [facility] 2021-04-05 10:13:44 2021-04-05 10:28:44 Laboratory Only Only, Adc Test [facility] 1.2840.114 350.1.13.10 4.2.7.2.686 [id number] [facility] 2021-04-05 10:15:00 2021-04-05 10:15:00 Outpatient R [facility] [id number] [facility] 2021-04-05 00:00:00 2021-04-05 00:00:00 Orders Only Doctor Unassigned, [place] [facility] 1.2840.114 350.1.13.10 4.2.7.2.686 [id number] [id number] [facility] 2021-04-05 00:00:00 2021-04-05 00:00:00 Orders Only Doctor Unassigned, [place] [facility] 1.20.114 350.1.13.10 4.2.7.2.686 [id number] [facility] 2021-03-24 00:00:00 2021-03-24 00:00:00 Telephone [facility] 1.284.114 350.1.13.10 4.2.7.2.686 [id number] [facility] 2021-03-24 00:00:00 2021-03-24 00:00:00 Telephone Ofe [facility] Medical Office Building 1.2840.114 350.1.13.10 4.2.7.2.686 [id number] [facility] 2021-03-23 00:00:00 2021-03-23 00:00:00 Telephone Franko Thakur [facility] 1.840.114 350.1.13.10 4.2.7.2.686 [id number] [facility] 2021-03-10 14:29:05 2021-03-10 14:49:05 Office Visit Leela Bonilla [facility] nal Building 1.840.114 350.1.13.10 4.2.7.2.686 [id number] [facility] 2021-03-10 14:29:05 2021-03-10 14:49:05 Office Visit Leela Bonilla [facility] Building 1.84.114 350.1.13.10 4.2.7.2.686 [id number] [facility] 2021-03-10 14:40:00 2021-03-10 14:40:00 [facility] [id number] [facility] 2021-03-10 00:00:00 2021-03-10 00:00:00 Patient Secure Guerita Savage [facility] 1.840.114 350.1.13.10 4.2.7.2.686 [id number] [facility] 2021-03-09 10:00:00 2021-03-09 10:00:00 Outpatient R OFE FRANKO [facility] [id number] [facility] 2021-03-09 09:32:44 2021-03-09 09:47:44 Office Visit Franko Thakur [facility] 1.2840.114 350.1.13.10 4.2.7.2.686 [id number] [facility] 2021-03-08 00:00:00 2021-03-08 00:00:00 Patient Secure Msg Alonso [facility] 1.2840.114 350.1.13.10 4.2.7.2.686 [id number] [facility] 2021-03-05 00:00:00 2021-03-05 00:00:00 Patient Secure Msg Alonso [facility]?Francisco montalvo Medical Office Building 1.840.114 350.1.13.10 4.2.7.2.686 [id number] [facility] 2021-03-04 19:30:00 2021-03-04 19:30:00 Outpatient LEELA LOPEZ STRALAMartha [facility] [id number] [facility] 2021-03-04 15:12:29 2021-03-04 17:42:29 [place] Reporter Visit 1, Adc Sleep Lab Bed Leela Bonilla [facility] 1.84.114 350.1.13.10 4.2.7.2.686 [id number] [facility] 2021-03-04 00:00:00 2021-03-04 00:00:00 Orders Only Doctor Unassigned, [place] [facility] 1.84.114 350.1.13.10 4.2.7.2.686 [id number] [facility] 2021-03-04 00:00:00 2021-03-04 00:00:00 Patient Secure Msg Alonso [facility]?YESENIA VAL [facility] 1.2840.114 350.1.13.10 4.2.7.2.686 [id number] [facility] 2021-03-02 14:35:01 2021-03-02 14:50:01 Laboratory Only Only, Adc Test [facility] 1.2.840.114 350.1.13.10 4.2.7.2.686 [id number] [facility] 2021-03-02 14:30:00 2021-03-02 14:30:00 Outpatient R [facility] [id number] [facility] 2021 12:29:22 2021 12:44:22 [place] Reporter Visit Pob, Adc Lab Main [facility] 1.2.840.114 350.1.13.10 4.2.7.2.686 [id number] [facility] 2021 10:58:32 2021 12:05:09 Office Visit Gavin [facility] 1.2.840.114 350.1.13.10 4.2.7.2.686 [id number] [facility] 2021 10:58:32 2021 12:05:09 Office Visit Gavin [facility] 1.2.840.114 350.1.13.10 4.2.7.2.686 [id number] [facility] 2021 10:30:00 2021 12:05:09 Outpatient R GAVIN [facility] [id number] [facility] 2021 10:30:00 2021 10:30:00 Outpatient R GAVIN [facility] [id number] [facility] 2021 00:00:00 2021 00:00:00 Orders Only Doctor Unassigned, [place] [facility] 1.2.840.114 350.1.13.10 4.2.7.2.686 [id number] [facility] 2021-02-03 08:57:54 2021-02-03 09:17:54 Office Visit SurindervincentLeela Florencio [facility] Building 1.2.840.114 350.1.13.10 4.2.7.2.686 [id number] [facility] 2021-02-03 09:00:00 2021-02-03 09:00:00 Outpatient R LEELA BONILLA STRALAMartha [facility] [id number] [facility] 2021-02-02 09:10:37 2021-02-02 09:40:37 Office Visit Franko Thakur [facility] Office Building One 1.2.840.114 350.1.13.10 4.2.7.2.686 [id number] [facility] 2021-02-02 09:30:00 2021-02-02 09:30:00 Outpatient FRANKO SMITH [facility] [id number] [facility] 2021-02-02 00:00:00 2021-02-02 00:00:00 Orders Only Doctor Unassigned, [place] [facility] 1.2.840.114 350.1.13.10 4.2.7.2.686 [id number] [facility] 2021-02-01 13:30:00 2021-02-01 13:30:00 Outpatient Tere FRANKO THAKUR [facility] [id number] [facility] 2020-07-01 06:05:00 2020-07-01 16:15:00 Outpatient [facility] [id number] [facility] 2020-05-28 12:12:00 2020-05-28 12:12:00 Outpatient Homero Andry Dinero Joseph [facility] [id number] [facility] 2020-05-28 12:12:2020-05-28 12:12:00 Outpatient 3 Andry Dinero Joseph [facility] [id number] [facility] Results Test Description Test Time Test Comments Results Result Co mments Source [facility] MOLECULAR QHX5418-09-12 20:35:51* Test Item Value Reference Range Interpretation Comme nts POCT Molecular FluA (test co de = 38903-9) Negative Negative POCT Molecular FluB (test co de = 25474-9) Negative Negative Lab Interpretation (test cod e = 78378-3) Normal [facility] MOLECULAR KCBRO4939-82-07 20:18:28* Test Item Value Reference Range Interpretation Comme nts POCT Molecular Strep (test c ode = 89307-6) Negative Negative Lab Interpretation (test cod e = 60112-5) Normal [facility] MOLECULAR RDCRV9803-88-42 20:18:28* Test Item Value Reference Range Interpretation Comme nts POCT Molecular Strep (test c ode = 20072-8) Negative Negative Lab Interpretation (test cod e = 06395-8) [facility] Crsuqn4139-99-98 15:04:14 [facility] 1965 Sex: FPatient: KIRILL [...] SamerSigned (Electronic Signature): 05/28/2020 3:04 pmIR Thyroid Cnpjck3777-47-97 15:04:14 [facility] : 1965 Sex: FPatient: KIRILL [...] Moraima, SamerSigned (Electronic Signature): 05/28/2020 3:04 pmPOC Wwyvhlg2375-09-84 12:43:26* Test Item Value Reference Range Interpretation Comme nts Glucose POC (test code = Glucose POC) 107 mg/dL 74-106 H POC Glucose used on critically ill patients is considered "off-label use" and has not been cleared or approved by the FDA. Alternative testing methods should be considered if the patient is critically ill. POC Lhaafbj6840-07-06 12:21:41* Test Item Value Reference Range Interpretation Comme nts Glucose POC (test code = Glucose POC) 105 mg/dL 74-106 POC Glucose used on critically ill patients is considered "off-label use" and has not been cleared or approved by the FDA. Alternative testing methods should be considered if the patient is critically ill. Prothrombin Time and ZZR3199-04-10 11:11:55* Test Item Value Reference Range Interpretation Comme nts Prothrombin Time (test code = Prothrombin Time) 10.8 seconds 9.0-12.0 INR (test code = INR) 1.0 ratio 0.9-1.2 Partial Thromboplastin Ebrb8190-22-88 11:11:55* Test Item Value Reference Range Interpretation Comme nts Partial Thromboplastin Time (test code = Partial Thromboplastin Time) 27.8 seconds 24.0-35.0 IG Rzgnn4696-91-39 10:58:55* Test Item Value Reference Range Interpretation Comme nts IG (test code = IG) 0 % 0-5 IG Abs (test code = IG Abs) 0 x10 N Complete Blood Count with Sngvwgeuzasq8843-18-29 10:58:54* Test Item Value Reference Range Interpretation [...] Result created b y GL_SET_SLIDE_REVIEW_A UTO Automated Vixtltqzacqn6294-01-90 10:58:54* Test Item Value Reference Range Interpretation Comme nts Neutro Auto (test code = Neutro Auto) 60.9 % N Lymph Auto (test code = Lymph Auto) 27.7 % N Lynn Auto (test code = Lynn Auto) 8.5 % N Eos, Auto (test code = Eos, Auto) 1.8 % N Basophil Auto (test code = B asophil Auto) 0.9 % N Neutro Absolute (test code = Neutro Absolute) 2.7 x10 2.7-7.3 Lymph Absolute (test code = Lymph Absolute) 1.2 x10 0.8-3.5 Lynn Absolute (test code = M foster Absolute) 0.4 x10 0.3-0.9 Eos Absolute (test code = Eo s Absolute) 0.1 x10 0.0-0.3 Baso Absolute (test code = B aso Absolute) 0.0 x10 0.0-0.1 Notes Date/Time Note Provider Source 2023-08-29 15:09:51 lNs7VudMOQPe1191fWpJ D1vopWg7GWXfpT SM0px0jCpuBBmVSzQmRnqyI2j5Bfsz9840 -02-13T15:09:51Summary: [facility] Specialty PharmacyMonthly Clinical AssessmentI spoke to patient, patient reported having test positive for Covid last month, had phlegm and body aches, had to miss a dose of Humira. Patient reported that she is no longer experiencing any Covid or flu like symptoms.After reviewing the results of the administered survey, it is appropriate to continue the medication as prescribed. The [facility] will refill the medication and continue to follow this patient and address any concerns that arise while on therapy with Humira.Thank you,Emilie Peres [facility] 72[address]-7Vwqdrcmfj encounter RzduWT8102-64-10V86:22:51Telephone encounter NoteTXT1.2.840.389644.1.13.104.2.7 .2.607193|[id number] for patient uajd35029-4TheiRQOYIYEVVWHAdaizrzg d C-CDA narrative kuid397836002Wmctu Kumar [address] PjplDgebrtravSmsupgurzTTSO80650637 83XOLDTSAJEEUQPNNRUMFQBK9114-56-42 T15:22:511.2.840.475086.1.72.3.15| 1.2.840.456795.1.13.104.2.7.2.7278 [id number] Emilie Peres [facility] 2023-08-29 10:55:10 1EyqUPc5Ty4qUHnn0zyt eKLgb61pKMnFcn fjC+biZwlHtncu+4Uykq8MC0qZQGOS3080 -02-13T10:55:10 [facility] Special[facility] PharmacyMonthly Clinical Refill AssessmentKirill Baca is a 58 year old female who is followed by the [facility] specialty pharmacy service for Humira.Am I speaking with the patient? YesHave you missed any doses since the last fill? YES, the patient missed 1 doses because she had covid after her last refill.Were any of the medications discontinued? NoHave any changes been made to the medication, dose, or instructions on how to take it? NoHave you started taking any new medications, herbals, or supplements? NoHave you been diagnosed with any new medical conditions? NoAre you experiencing any acute illness such as the common cold or flu-like symptoms? NoDo you have any new allergies to medications or foods? NoHave you been to the emergency room, hospital, or urgent care clinic since your last refill? NoHave you experienced or do you have any concerns about side effects? NoDo you have any concerns or questions about taking or administering the medication as prescribed? NoWhen is the next dose needed? The next dose is needed on 09/08/2023Would you prefer the medication be shipped to your address? YES, the confirmed shipping address is [address] [place] [address] Dr [address] [place], [place] [id number].Do you have any specific shipping directions? NoThe results of this survey will be reviewed by a specialty pharmacist and the medication order will be refilled.Thank you,Monica Julio [facility] 25940-7Snbhovjml encounter QqjkZJ8624-77-07B14:56:20Telephone encounter NoteTXT1.2.840.197615.1.13.104.2.7 .2.670543|[id number] for patient slza91549-2XhdgZKUQEJQYRRSWavoweac d C-CDA narrative jdzs759663533Zerswls E [address] GfhvTnozuzdtiWddegkcqlGBAG53309700 60IDYKHNOQMUEQVUQEIOLVHS6521-14-88 T10:56:201.2.840.519788.1.72.3.15| 1.2.840.490488.1.13.104.2.7.2.7278 [id number] Monica Julio [facility] 2023-08-07 11:55:49 xUkGBZw1KQ7O1CbeJcLk +FAidt2/Z6o6rR pCcyukzIFX7NIgoDMTM8kg9u8ACe3k5700 -01-22T11:55:49 For your review:Patient provided with update, stated is feeling better at this time, and nebulizer is no longer needed. 50865-6Kwjbltcea encounter FxocVZ7353-83-65K11:57:23Telephone encounter NoteTXT1.2.840.883461.1.13.104.2.7 .2.255259|[id number] for patient hnnc93464-8VyneHIJKLSQNZQFJlbzcdjj d C-CDA narrative [address] 36AEMDNMBVWGUMFFAPYEUGGS8033-26-71 T11:57:231.2.840.721000.1.72.3.15| 1.2.840.913054.1.13.104.2.7.2.7278 [id number] [facility] 2023-08-03 16:16:04 aBQfy3y1jwEKpuVzuwQX bDj/t3sMnQoFcq aFHE0oqYJ2UcnSIFQ3KQioDVSXC52S8862 -01-18T16:16:04 Try SOB R 06.02[place] [address]-2Czobltfka encounter BzizKT3353-10-57L38:16:57Telephone encounter NoteTXT1.2.840.213013.1.13.104.2.7 .2.412942|5545350925XAWwlycadjq for patient nsym32202-7TepiFTUNBOLCDWTQyjqlazq d C-CDA narrative [address] 80XEWVQUWRQIMUCJMKNQDMSS2803-56-60 T16:16:571.2.840.560662.1.72.3.15| 1.2.840.979111.1.13.104.2.7.2.7278 [id number] [facility] 2023-08-03 10:10:24 2CFOdW/z/kJNoleHnAkV R4RsSJLIqkXI2t ngn0SqtKIsnvEZodUGYgLLynVJcimF7043 -01-18T10:10:24 Please advise with additional DX code for DME coverage as the following are not sufficient:G47.33Obstructive sleep apnea (adult) (pediatric)R06.2SnyuofoaC47.9Acute bronchitis, unspecified 65282-7Siewqqfsc encounter SjiqML6776-20-16Y71:14:33Telephone encounter NoteTXT1.2.840.162275.1.13.104.2.7 .2.718835|8219767902EGPhkwmguam for patient clly39507-9IcdxRKZUSFUZHXFTpzvzkvm d C-CDA narrative text[address] WcbyUxzokhrtrNmnhqxvfyQEOH63072973 97FCKVDXHTJALQBREVSRMQOI1624-64-57 T10:14:331.2.840.218711.1.72.3.15| 1.2.840.418451.1.13.104.2.7.2.7278 79_[id number] [facility] 2023-08-03 08:26:15 XqRo9Kb2YWMBUL4SYlLi 3xPY3Fw1DMzMo5 RZRdSbB8aPP7qOw7YtuxzcM5wG15yw0194 -01-18T08:26:15 [place] [address]-2Oittrjdwe encounter NaaqNP4733-61-96X04:26:24Telephone encounter NoteTXT1.2.840.023096.1.13.104.2.7 .2.370633|6674298101QSBxrfztngf for patient mufc00185-9XqzdUYTMYVVOXQBBjdtexap d C-CDA narrative textUTMBUTMB - Mjvkty489 [employer] BxfkLqlridburYmekdtyujRMEP03837727 87GUHKUFGFZDPIWZMMNVUAFL9696-59-18 T08:26:241.2.840.764633.1.72.3.15| 1.2.840.832747.1.13.104.2.7.2.7278 79_[id number] [facility] 2023-08-01 10:38:54 uIP9sZI6uCO20uuTrhj1 mVI5cUinjtf2Bl B8WDAESN3jPcxVkoJBNHuQIv2Z3Wb25069 -01-16T10:38:54 I've sent rx for neb machine and albuterol to [facility] and [facility], not sure where it will be more affordableIt may help to send neb machine through [facility] [address]-8Ulhftvhjq encounter BoxqWB7643-82-29W27:42:16Telephone encounter NoteTXT1.2.840.464540.1.13.104.2.7 .2.556132|2847647591EPGmoosjaaw for patient rmxk45150-6HpccIKRMJIIYFMRLguxsqyc d C-CDA narrative [address] 80FGVJJBQHOVJZVPLKSJQBZE0813-19-23 T10:42:161.2.840.994792.1.72.3.15| 1.2.840.191079.1.13.104.2.7.2.7278 79_[id number] [facility] 2023-07-07 10:20:26 SaJWFi4D564AQS0D1uMF m5PUNiB6ZfTmij +ipxonAigmE/cvR1lSNVlSQnWX9Ao52444 -12-22T10:20:26 Prescription for Humira sent to pharmacy. 75752-2Otaoygoio encounter PiueOQ7432-52-18Y32:21:09Telephone encounter NoteTXT1.2.840.167295.1.13.104.2.7 .2.507724|9438164208CTXxmmihtnm for patient jfum75179-9EpnoXATEEHYZYNMMgugpixg d C-CDA narrative bghi911072717Ubjoz [place] [address]TXTX[address] 61OPOFWOGFJNMQBWBQTHZMUP7226-16-51 T10:21:091.2.840.508669.1.72.3.15| 1.2.840.977452.1.13.104.2.7.2.7278 79_[id number] Mariela Wilkerson LVN [facility] 2023-07-07 10:15:24 9C2zfP9TVIMXHqBEp2nF Vyn3YnwQfdK8T/ rBtmyf+NyTi4xKKhqlrFYs83b2X6l04619 -12-22T10:15:24 Labs reviewed from 04/04/23LOV:04/04/23NOV:10/05/22Pr escription sent to pharmacy. 90199-3Eszgeylqz encounter HppsCJ3144-61-96G80:20:13Telephone encounter NoteTXT1.2.840.192106.1.13.104.2.7 .2.363163|0039230236AHYfizcdhmz for patient ozga08570-5TiarERTPDLZTLFZRhcmaeze d C-CDA narrative tgyy999105422Xutgo [place] [address]TXTX[address] 28OVHEPYZMAGLQFDVASVJJGG3144-89-95 T10:20:131.2.840.106305.1.72.3.15| 1.2.840.451913.1.13.104.2.7.2.7278 79_[id number] Mariela Rock LINN [facility] 2023-07-07 09:55:47 KE+h0ZUGBjxBiKJjotOj FEtup1tYoHgo1/ AnTFbPOF8yJsf4kN1Q0zVgh+7s1nqn03562022T09:55:47 Notes from PAMELA Norris dated 05/25/23Advise patient she can try increasing her gabapentin to 2 pills (600 mg) three times a day.NOV: 10/06/23 49995-5Qqjuabaid encounter FwfrNQ4672-26-29M26:11:03Telephone encounter NoteTXT1.2.840.528538.1.13.104.2.7 .2.180162|9538276644EMEywcohfbf for patient ptwf94352-1OasnROZZVBVITNBLbisxgbo d C-CDA narrative text[address] LjggZxtyquiyxDqxwohfbwXKIF07848965 86GFWLRBMARKIZNBABPMQFGK4452-70-94 T10:11:031.2.840.542845.1.72.3.15| 1.2.840.940215.1.13.104.2.7.2.7278 79_[id number] [facility] 2023-07-07 08:50:38 FS+NLNsHCxIf5KrWZzBc bgdbAzj/dIHe9v ohTwH2yAJwVJ3CCEKCvJVNfLayy75n8757 -12-22T08:50:38 Refill request routed to provider for [...] Norris PA-C [facility]-PcpTechnician Visit on 04/04/2023omponent Date ValueWBC 04/04/2023 6.63RBC 04/04/2023 4.46HGB 04/04/2023 [...] Received in LabQFT Gold Plus Result 04/04/2023 MxijzuuoEUS-13-PL1. Seropositive rheumatoid arthritis of multiple joints M05.79Please advise.Samia Esparza 07/07/2023 8:50 AM 50507-3Qtmzjqkzf encounter FzjeQS4654-65-68V70:04:11Telephone encounter NoteTXT1.2.840.750539.1.13.104.2.7 .2.088316|7339943880JIQfmjdhicy for patient irnf92180-2JblzYSFPMRKAMUYXnozpnph d C-CDA narrative fqwp453455774Ywqxmz [address] GjqyNbacbegocLndtlmweyWMZG10775400 94XNPVIRAVCHWTZYMBJUZPGV0310-73-60 T09:04:111.2.840.472185.1.72.3.15| 1.2.840.443167.1.13.104.2.7.2.7278 79_[id number] Samia Esparza [facility] 2023-04-04 14:15:00 nVj9GsmZtHB8Mlil18XW EIIdWEEmUGTx3J 4Xa0hulvjkCr7r2nCxPVmHQOiwif/t2T14:15:00 Images from the original note were not included.Venipuncture collection performed by clean technique on the right anticubitus. Total of 1 attempts were made. Slight pressure and a bandage/dressing were applied to the site(s). The patient experienced no complications. The following specimens were processed according to instructions and sent to [facility] laboratories per lab order on 04/04/2023: LT BLUE SST 2 RED LAV 1 PPT DK GREEN (LiHep) 1 DK GREEN (SodH) PRECIADO DK BLUE (K2) DK BLUE (S) ACD Blood Culture NIPT/NTD 49958-3Qrnns OifiMZ2890-22-28Q08:23:40Nurse NoteTXT1.2.840.136929.1.13.104.2.7 .2.868861|4731866846BQMqbdhpejo for patient vust87414-3Aiaen NoteLNUT[address] TdapKrylwvcijBdflqfefjUWBX90544996 85YIMJGOKMPGVXXGFHLRETGU6020-34-83 T14:23:401.2.840.585177.1.72.3.15| 1.2.840.326013.1.13.104.2.7.2.7278 79_[id number] [facility] 2023-03-23 14:07:44 8ZmPuE+P/D9QV04EURSP ny4a0BKJLafU1z slZmc3UTu23HesFN32U/7iGXHkUlTZ2235 -09-07T14:07:44 QFT 06/09/21 NegativePlaced orders for QFTNOV [...] 365 days and meeting all other requirements Shorthand Reporter Visit on 12/08/2022 Component Date Value TSH [...] COVID-19 tests the patient has had at [facility]: molecular nucleic acid amplification tests (NAAT) (specifically PCR testing and Rapid ID Now testing) and antibody tests. It does not take into account antigen testing or any additional testing that a patient may have had outside of the [facility] medical record. COVID Results 10/13/2022 Value:SARS-CoV-2 NAAT (no units) Date Value 10/13/2022 Not Detected SARS-CoV-2 Rapid ID NOW (no units) Date Value 01/28/2022 Not Detected 04/05/2021 Not Detected 03/02/2021 Not Detected Shorthand Reporter Visit on 10/07/2022 Component Date Value WBC [...] Please advise.Selena Pollard RN 03/23/2023 2:23 PM 39144-9Mygueqpqi encounter LkbfXG2050-60-62W27:24:16Telephone encounter NoteTXT1.2.840.299977.1.13.104.2.7 .2.845357|[id number] for patient [id number] P [place] [id number] 69APJNGCQOYRKABYAPCOGJZH0067-83-26 T14:24:161.2.840.676822.1.72.3.15| 1.2.840.713689.1.13.104.2.7.2.7278 [id number] Selena Pollard [facility] 2023-03-23 09:01:26 pK1dUMVUe4M0J7In4Vxb 0UZJbZOpZk9AAI lFJIcURuSb8F9FkdcHYlVtcGFWMnuL3388 -09-07T09:01:26 NOV 04/04/23 67764-1Yxrrirmxn encounter AqydWN7011-51-93M57:02:20Telephone encounter NoteTXT1.2.840.511365.1.13.104.2.7 .2.816970|[id number] for patient hdiq87001-8CbioNODYLFLRKA[id number] 13KYHZXXTHRUAWFNXDBAIAIE3469-86-98 T09:02:201.2.840.768259.1.72.3.15| 1.2.840.849197.1.13.104.2.7.2.7278 [id number] [facility] 2023-03-21 14:27:27 jY9zG7R/BJHDf9BvqzYP YYUNTeKh29WVKZ njSQ+2I+2iBeEBuqwtU0N9HvzJHzD68404 -09-05T14:27:27 Previous referral placed on 12/30 is closed. Please review and sign if appropriate 76948-8Tenmkrzua encounter KsrsWK7223-63-06K65:29:31Telephone encounter NoteTXT1.2.840.892755.1.13.104.2.7 .2.200713|[id number] for patient sxre67460-5AickJIZQAIIMXA[id number] 56EDVUYHEQJTGTKBAEEUZAGL9656-43-55 T14:29:311.2.840.723836.1.72.3.15| 1.2.840.134112.1.13.104.2.7.2.7278 [id number] [facility] 2023-03-21 11:11:54 gDMbt+CRU2JBufq24uQc ljVFphTZJTMvpI hgAGQ+ujgWuFkHygi9itIDhkiWczam8941 -09-05T11:11:54 Kirill Baca is a 57 year old femaleCamille called from Endocrinology, states did not receive faxed referral from 03/24/23 Please refax to [phone]: E11.69, E03.9 85566-3Bnjiubgbl encounter PnbtFY5820-85-02V86:15:26Telephone encounter NoteTXT1.2.840.504115.1.13.104.2.7 .2.391691|[id number] for patient [id number] [address] Oq[id number] 45TVYHEVDFSIXTNCKWMFJFAA7817-46-12 T11:15:261.2.840.146307.1.72.3.15| 1.2.840.460667.1.13.104.2.7.2.7278 [id number] [facility]
[2023-09-08 18:28] LABS: Protime INR 0.97
[2023-09-08 18:41] LABS: ALT/SGPT 38 U/L (13-56); AST/SGOT 33 U/L (15-37); Albumin 3.9 g/dL (3.4-5.0); Alkaline Phosphatase 73 U/L (45-117); BUN Blood Urea Nitrogen 10 mg/dL (7-18); Bicarbonate 23 mEq/L (21-32); Bilirubin Total 0.3 mg/dL (0.2-1.0); Glomerular Filtration Rate 64 ml/min (=/>90); Glucose Level 114 mg/dL (74-106); Lipase 28 U/L (13-75); NT PRO-BNP 49 pg/mL (<125); Potassium 3.9 mEq/L (3.5-5.1); Protein, Total 7.3 g/dL (6.4-8.2); Sodium Level 142 mEq/L (136-145)
[2023-09-08] MEDS ORDERED: MORPHINE 4 MG/ML SYR ONE ×2 (18:47→21:54)
[2023-09-08 18:53] LABS: Troponin High Sensitivity < 3.0 pg/mL (<58.9)
--- NOTE | 2023-09-08 19:17 | RAD REPORT ---
[facility] 6[facility]40 [facility] CLINICAL HISTORY: abd pain, chest pain COMPARISON: Chest Single View dated 07/29/2023; Chest Single View dated 05/24/2023; Chest Single View dated 07/07/2022; Chest Single View dated 02/03/2022 TECHNIQUE: Portable AP view of the chest. FINDINGS: The lungs are clear. No pneumothorax or effusion. The cardiomediastinal contours are unre markable. IMPRESSION: No acute cardiopulmonary process.
--- NOTE | 2023-09-08 20:36 | RAD REPORT ---
EXAM DESCRIPTION: CT - Angio Aorta For Dissection - 09/08/2023 7:35 pm CLINICAL HISTORY: chest pain;Abd pain COMPARISON: No comparisons TECHNIQUE: Thin axial CT images of the chest, abdomen, and pelvis were obtained during intravenous a dministration of iodinated contrast. Sagittal and coronal reconstructions as well as maximal intensit y projection reconstruction were generated and reviewed per an aortic angiography protocol. All CT scans are performed using dose optimization technique as appropriate and may include automated exposure control or mA/KV adjustment according to patient size. FINDINGS: Aorta is normal in diameter with no dissection or other acute aortic findings. Reconstruct ion images show no significant findings. Pulmonary arteries are normal as well. No mass or infiltrate in the lung parenchyma. Dependent platelike mild atelectatic changes. No pleura l thickening, pleural effusion or pneumothorax. No abnormal mediastinal or hilar mass or lymphadenopathy seen. No chest wall mass or abnormal axillar y lymphadenopathy. Celiac, SMA and renal arteries show no suspicious findings. Status post cholecystectomy. Solid abdomi nal viscera and bowel show no significant findings. No mass or abnormal lymphadenopathy. IMPRESSION: No acute abnormalities on CT angiogram of the aorta. No other significant findings on chest, abdomen, and pelvis examination.
--- NOTE | 2023-09-08 22:30 | ER ---
Nurse's Notes [facility] Name: Lashon Baca Age: 58 yrs Sex: Female : 1965 Arrival Date: 09/08/2023 Time: 17:57 Bed 5 Private MD: Diagnosis: Chest pain, unspecified;Gastro-esophageal reflux disease with esophagitis Presentation: 09/08 18:18 Chief complaint: EMS states: toned out for chest pain/epigastric pain X 1 hour. ld1 Coronavirus screen: At this time, the client does not indicate any symptoms associated with coronavirus-19. Ebola Screen: No symptoms or risks identified at this time. Initial Sepsis Screen: Does the patient meet any 2 criteria? No. Patient's initial sepsis screen is negative. Does the patient have a suspected source of infection? No. Patient's initial sepsis screen is negative. Risk Assessment: Do you want to hurt yourself or someone else? Patient reports no desire to harm self or others. Onset of symptoms was September 08, 2023. 18:18 Method Of Arrival: EMS: [facility] ld1 18:18 Acuity: KENNETH 3 ld1 Triage Assessment: 18:20 General: Appears in no apparent distress. uncomfortable, Behavior is cooperative, ld1 anxious. Pain: Complains of pain in chest and epigastric area Pain does not radiate. Pain currently is 10 out of 10 on a pain scale. Quality of pain is described as throbbing, Pain began suddenly, 1 hour ago. Is continuous. EENT: No signs and/or symptoms were reported regarding the EENT system. Neuro: Level of Consciousness is awake, alert, obeys commands, Oriented to person, place, time, situation. Cardiovascular: Capillary refill < 3 seconds Patient's skin is warm and dry. Rhythm is sinus rhythm. Respiratory: Airway is patent Respiratory effort is even, unlabored. Respiratory: GI: Abdomen is round non-distended, Reports epigastric pain, nausea. Historical: - Allergies: 18:20 Cymbalta (rash); ld1 18:20 Savella (rash); ld1 18:20 tramadol (Itching); ld1 - PMHx: 18:20 Diabetes - NIDDM; Bipolar disorder; Diabetes Mellitus Type 2; Fibromyalgia; Silas's ld1 disease; Kidney stone; Rheumatoid Arthritis; Sleep Apnea; - PSHx: 18:20 Cholecystectomy; section; hysterectomy; L knee; L side of thyroid removed ld1 (Cancerous lumps); R hip replacement; - Immunization history:: Adult Immunizations up to date. - Social history:: Smoking status: Patient denies any tobacco usage or history of. Patient/guardian denies using alcohol. - Family history:: not pertinent. Screenin:21 [facility] ED Fall Risk Assessment (Adult) History of falling in the last 3 months, ld1 including since admission No falls in past 3 months (0 pts). Abuse screen: Denies threats or abuse. Denies injuries from another. Nutritional screening: No deficits noted. Tuberculosis screening: No symptoms or risk factors identified. Assessment: 18:21 General: Appears in no apparent distress. uncomfortable, Behavior is cooperative, ld1 anxious. Pain: Complains of pain in abdomen and chest and epigastric area Pain does not radiate. Pain currently is 10 out of 10 on a pain scale. Quality of pain is described as sharp, throbbing, Pain began suddenly, 1 hour ago. Is continuous. Neuro: Level of Consciousness is awake, alert, obeys commands, Oriented to person, place, time, situation. Cardiovascular: Capillary refill < 3 seconds Patient's skin is warm and dry. Rhythm is sinus rhythm. Respiratory: Airway is patent Respiratory effort is even, unlabored. GI: Abdomen is round obese, Reports epigastric pain, nausea. : No signs and/or symptoms were reported regarding the genitourinary system. EENT: No signs and/or symptoms were reported regarding the EENT system. Derm: No signs and/or symptoms reported regarding the dermatologic system. Musculoskeletal: No signs and/or symptoms reported regarding the musculoskeletal system. 18:35 Reassessment: C/O epigastric pain 04/25. ERP notified. ld1 20:00 Reassessment: Patient appears in no apparent distress at this time. No changes from tm6 previously documented assessment. 21:14 Reassessment: Patient appears in no apparent distress at this time. No changes from tm6 previously documented assessment. 22:12 Reassessment: Patient appears in no apparent distress at this time. No changes from tm6 previously documented assessment. Patient and/or family updated on plan of care and expected duration. Pain level reassessed. Patient is alert, oriented x 3, equal unlabored respirations, skin warm/dry/pink. 23:16 Reassessment: Patient appears in no apparent distress at this time. No changes from lg3 previously documented assessment. Patient and/or family updated on plan of care and expected duration. Pain level reassessed. Patient is alert, oriented x 3, equal unlabored respirations, skin warm/dry/pink. 09/09 00:30 Reassessment: Patient appears in no apparent distress at this time. No changes from tm6 previously documented assessment. Vital Signs: 09/08 18:18 BP 109 / 81; Pulse 81; Resp 18; Temp 98.3(TE); Pulse Ox 94% on R/A; Weight 81.19 kg; ld1 Height 5 ft. 4 in. ; Pain 10/10; 18:50 BP 127 / 82; Pulse 80; Resp 18; Pulse Ox 98% on R/A; Pain 10/10; ld1 20:00 BP 130 / 82; Pulse 76; Resp 12; Pulse Ox 94% on R/A; tm6 21:14 BP 126 / 82; Pulse 71; Resp 13; Pulse Ox 96% on R/A; tm6 22:11 BP 126 / 98; Pulse 67; Resp 12; Pulse Ox 97% on R/A; Pain 5/10; tm6 23:16 BP 130 / 86; Pulse 71; Resp 17 S; Pulse Ox 97% on R/A; lg3 09/09 00:30 BP 119 / 87; Pulse 66; Resp 12; Pulse Ox 92% on R/A; tm6 09/08 18:18 Body Mass Index 30.72 (81.19 kg, 162.56 cm) ld1 09/08 18:18 Pain Scale: Adult ld1 18:50 Pain Scale: Adult ld1 22:11 Pain Scale: Adult tm6 ED Course: 09/08 18:02 Patient arrived in ED. rn 18:02 Jarod Burnett MD is Attending Physician. rn 18:20 Triage completed. ld1 18:20 Arm band placed on right wrist. ld1 18:21 Patient has correct armband on for positive identification. Placed in gown. Bed in low ld1 position. Call light in reach. Side rails up X2. nuclear monitoring technician on. Pulse ox on. NIBP on. Door closed. Noise minimized. Warm blanket given. 18:21 No provider procedures requiring assistance completed. Maintain EMS IV. Dressing ld1 intact. Good blood return noted. Site clean \T\ dry. Gauge \T\ site: 20G LAC. 18:22 Josselyn Clifton RN is Primary Nurse. ld1 18:39 Radiology exam delayed due to lab results not completed at this time. (BUN/Creatinine). ls3 18:42 XRAY Chest (1 view) In Process Unspecified. EDMS 19:37 CT Aorta for Dissection In Process Unspecified. EDMS 20:17 Attending Physician role handed off by Jarod Burnett MD gemma 20:17 Nii Bronson MD is Attending Physician. gemma 21:37 Primary Nurse role handed off by Josselyn Clifton RN as6 22:28 Bert Cruz MD is Hospitalizing Provider. gemma 23:16 Elisabeth Sofia RN is Primary Nurse. lg3 09/09 00:31 Provided Education on: need for admit. tm6 00:31 Patient admitted, IV remains in place. tm6 Administered Medications: 09/08 18:22 Drug: Pantoprazole IVP 40 mg IVP once Route: IVP; Site: left antecubital; ld1 23:13 Follow up: Response: No adverse reaction lg3 18:22 Drug: morphine IVP or IV 2 mg IVP once over 4 mins Route: IVP; Infused Over: 4 mins; ld1 Site: left antecubital; 23:13 Follow up: Response: No adverse reaction lg3 18:22 Drug: Ondansetron IVP 4 mg IVP once; over 2 minutes Route: IVP; Site: left antecubital; ld1 23:13 Follow up: Response: No adverse reaction lg3 18:50 Drug: morphine IVP or IV 4 mg IVP once over 4 mins; VERBAL ORDER PER DR. BURNETT Route: ld1 IVP; Infused Over: 4 mins; Site: left antecubital; 23:13 Follow up: Response: No adverse reaction lg3 22:00 Drug: morphine IVP or IV 4 mg IVP once over 4 mins Route: IVP; Infused Over: 4 mins; tm6 Site: left antecubital; 23:13 Follow up: Response: No adverse reaction lg3 22:00 Drug: Ondansetron IVP 4 mg IVP once; over 2 minutes Route: IVP; Site: left antecubital; tm6 23:13 Follow up: Response: No adverse reaction lg3 23:13 Drug: GI Cocktail with - (Maalox PO 30 ml, Lidocaine Mucous Membrane 2 % 20 lg3 ml, Phenobarbital-Belladonna PO 10 ml) PO once Route: PO; 23:13 Drug: Aspirin PO Chewable Tablet 81 mg PO once Route: PO; lg3 Medication: 18:21 VIS not applicable for this client. ld1 Outcome: 22:29 Decision to Hospitalize by Provider. gemma 09/09 00:30 Admitted to ER Hold. Please see [facility] for further documentation. tm6 Condition: stable Instructed on the need for admit, 13:50 Patient left the ED. aa5 Signatures: Dispatcher [employer] EDMS Nii Bronson MD MD cha Nieto, Roman, MD MD rn Calderon, Audri, RN RN aa5 Otoniel Sherman3 Elisabeth Sofia RN RN lg3 Josselyn Clifton RN RN ld1 Salbador Cottrell RN RN as6 Rhianna De Jesus RN RN tm6 Corrections: (The following items were deleted from the chart) 14:04 14:03 Patient left the ED. aa5 aa5
--- NOTE | 2023-09-08 22:31 | EDPHYS ---
Physician Documentation [facility] Name: Lashon Baca Age: 58 yrs Sex: Female : 1965 Arrival Date: 09/08/2023 Time: 17:57 Bed 5 Private MD: ED Physician Nii Bronson HPI: 09/08 22:19 This 58 yrs old Female presents to ER via EMS with complaints of Epigastric gemma Pain, Chest Pain. 22:19 The patient or guardian reports chest pain that is located primarily in the substernal gemma area, epigastric area. Onset: 1 day(s) ago. The pain does not radiate. Associated signs and symptoms: The patient has no apparent associated signs or symptoms. The chest pain is described as a pressure. Modifying factors: The symptoms are alleviated by nothing. the symptoms are aggravated by nothing. Severity of pain: At its worst the pain was mild in the emergency department the pain is unchanged. The patient has experienced similar episodes in the past, a few times. Historical: - Allergies: 18:20 Cymbalta (rash); ld1 18:20 Savella (rash); ld1 18:20 tramadol (Itching); ld1 - PMHx: 18:20 Diabetes - NIDDM; Bipolar disorder; Diabetes Mellitus Type 2; Fibromyalgia; Silas's ld1 disease; Kidney stone; Rheumatoid Arthritis; Sleep Apnea; - PSHx: 18:20 Cholecystectomy; section; hysterectomy; L knee; L side of thyroid removed ld1 (Cancerous lumps); R hip replacement; - Immunization history:: Adult Immunizations up to date. - Social history:: Smoking status: Patient denies any tobacco usage or history of. Patient/guardian denies using alcohol. - Family history:: not pertinent. ROS: 22:19 Constitutional: Negative for fever, chills, and weight loss, Eyes: Negative for injury, gemma pain, redness, and discharge, ENT: Negative for injury, pain, and discharge, Neck: Negative for injury, pain, and swelling, Respiratory: Negative for shortness of breath, cough, wheezing, and pleuritic chest pain, Abdomen/GI: Negative for abdominal pain, nausea, vomiting, diarrhea, and constipation, Back: Negative for injury and pain, : Negative for injury, bleeding, discharge, and swelling, MS/Extremity: Negative for injury and deformity, Skin: Negative for injury, rash, and discoloration, Neuro: Negative for headache, weakness, numbness, tingling, and seizure, Psych: Negative for depression, anxiety, suicide ideation, homicidal ideation, and hallucinations, Allergy/Immunology: Negative for hives, rash, and allergies, Endocrine: Negative for neck swelling, polydipsia, polyuria, polyphagia, and marked weight changes, Hematologic/Lymphatic: Negative for swollen nodes, abnormal bleeding, and unusual bruising, 22:19 Cardiovascular: Positive for chest pain, of the chest, Exam: 22:19 Constitutional: This is a well developed, well nourished patient who is awake, alert, gemma and in no acute distress. Head/Face: Normocephalic, atraumatic. Eyes: Pupils equal round and reactive to light, extra-ocular motions intact. Lids and lashes normal. Conjunctiva and sclera are non-icteric and not injected. Cornea within normal limits. Periorbital areas with no swelling, redness, or edema. ENT: Nares patent. No nasal discharge, no septal abnormalities noted. Tympanic membranes are normal and external auditory canals are clear. Oropharynx with no redness, swelling, or masses, exudates, or evidence of obstruction, uvula midline. Mucous membranes moist. Neck: Trachea midline, no thyromegaly or masses palpated, and no cervical lymphadenopathy. Supple, full range of motion without nuchal rigidity, or vertebral point tenderness. No Meningismus. Chest/axilla: Normal chest wall appearance and motion. Nontender with no deformity. No lesions are appreciated. Cardiovascular: Regular rate and rhythm with a normal S1 and S2. No gallops, murmurs, or rubs. Normal PMI, no JVD. No pulse deficits. Respiratory: Lungs have equal breath sounds bilaterally, clear to auscultation and percussion. No rales, rhonchi or wheezes noted. No increased work of breathing, no retractions or nasal flaring. Back: No spinal tenderness. No costovertebral tenderness. Full range of motion. Female : Normal external genitalia. Skin: Warm, dry with normal turgor. Normal color with no rashes, no lesions, and no evidence of cellulitis. MS/ Extremity: Pulses equal, no cyanosis. Neurovascular intact. Full, normal range of motion. Neuro: Awake and alert, GCS 15, oriented to person, place, time, and situation. Cranial nerves II-XII grossly intact. Motor strength 5/5 in all extremities. Sensory grossly intact. Cerebellar exam normal. Normal gait. Psych: Awake, alert, with orientation to person, place and time. Behavior, mood, and affect are within normal limits. 22:19 ECG was reviewed by the Attending Physician. 22:19 Abdomen/GI: Inspection: abdomen appears normal, Bowel sounds: normal, Palpation: mild abdominal tenderness, in the epigastric area, right upper quadrant and left upper quadrant, Liver: no appreciated palpable abnormalities, Hernia: not appreciated, 22:24 ECG was reviewed by the Attending Physician. gemma Vital Signs: 18:18 BP 109 / 81; Pulse 81; Resp 18; Temp 98.3(TE); Pulse Ox 94% on R/A; Weight 81.19 kg; ld1 Height 5 ft. 4 in. ; Pain 10/10; 18:50 BP 127 / 82; Pulse 80; Resp 18; Pulse Ox 98% on R/A; Pain 10/10; ld1 20:00 BP 130 / 82; Pulse 76; Resp 12; Pulse Ox 94% on R/A; tm6 21:14 BP 126 / 82; Pulse 71; Resp 13; Pulse Ox 96% on R/A; tm6 22:11 BP 126 / 98; Pulse 67; Resp 12; Pulse Ox 97% on R/A; Pain 5/10; tm6 23:16 BP 130 / 86; Pulse 71; Resp 17 S; Pulse Ox 97% on R/A; lg3 09/09 00:30 BP 119 / 87; Pulse 66; Resp 12; Pulse Ox 92% on R/A; tm6 09/08 18:18 Body Mass Index 30.72 (81.19 kg, 162.56 cm) ld1 09/08 18:18 Pain Scale: Adult ld1 18:50 Pain Scale: Adult ld1 22:11 Pain Scale: Adult tm6 MDM: 09/08 18:02 Patient medically screened. rn 22:25 Differential diagnosis: abnormal EKG, acute myocardial infarction, acute pericarditis, gemma chest wall pain, costochondritis, esophagitis, gastritis, gastroesophageal reflux disease (GERD), hiatal hernia, myocarditis, pancreatitis, peptic ulcer disease, pericarditis, pulmonary embolus, stable angina, thoracic aortic disection, unstable angina. HEART Score: History: Slightly Suspicious (0), ECG: Non specific repolarization disturbance / LBTB / PM (1), Age: > 45 and < 65 years (1), Risk Factors: > or = 3 Risk factors for atherosclerotic disease (2), [Hypertension] [DM] [+ Family HX] [Obesity] Troponin: < or = 1 x Normal Limit (0). The patient was given aspirin in the Emergency Department. GENE Risk Score: 1 - Three or more CAD risk factors, TOTAL SCORE = 1. Data reviewed: vital signs, nurses notes, lab test result(s), EKG, radiologic studies, CT scan, plain films. Consideration of Admission/Observation Escalation of care including admission/observation considered. I considered the following discharge prescriptions or medication management in the emergency department Medications were administered in the Emergency Department. See MAR. Independent interpretation of the following test(s) in the Emergency Department EKG: See my EKG interpretation above. Test considered but Not performed: Ultrasound NO 2 D ECHO. Care significantly affected by the following chronic conditions: Diabetes, Hypertension, Obesity, BIPOLAR , FIBROMYALGIA. Counseling: I had a detailed discussion with the patient and/or guardian regarding the historical points, exam findings, and any diagnostic results supporting the discharge/admit diagnosis, lab results, radiology results, the need for further work-up and treatment in the hospital. 09/08 18:04 Order name: CBC with Diff; Complete Time: 18:45 rn 09/08 18:04 Order name: NT PRO-BNP; Complete Time: 19: rn 09/08 18:04 Order name: PT-INR; Complete Time: 18:45 rn 09/08 18:04 Order name: Troponin HS; Complete Time: 19: rn 09/08 18:04 Order name: CMP; Complete Time: 19:21 rn 09/08 18:04 Order name: Lipase; Complete Time: 19: rn 09/08 22:17 Order name: Troponin High Sensitivity [facility] 09/09 01:35 Order name: CBC without Diff [facility] 09/09 01:49 Order name: Basic Metabolic Panel [facility] 09/09 11:50 Order name: Troponin High Sensitivity [facility] 09/08 18:04 Order name: XRAY Chest (1 view); Complete Time: 19: 09/08 18:04 Order name: CT Aorta for Dissection; Complete Time: 20:48 rn 09/08 18:04 Order name: EKG; Complete Time: 18:05 rn 09/08 20:17 Order name: EKG; Complete Time: 20:17 gemma 09/08 18:04 Order name: Cardiac monitoring; Complete Time: 18:05 rn 09/08 18:04 Order name: EKG - Nurse/Tech; Complete Time: 18:22 rn 09/08 18:04 Order name: IV Saline Lock; Complete Time: 18: rn 09/08 18:04 Order name: Labs collected and sent; Complete Time: 18: rn 09/08 18:04 Order name: O2 Per Protocol; Complete Time: 18:05 rn 09/08 18:04 Order name: O2 Sat Monitoring; Complete Time: 18:05 rn 09/08 20:17 Order name: EKG - Nurse/Tech; Complete Time: 20:29 gemma EC:19 Rate is 80 beats/min. Rhythm is regular. QRS [place] is Normal. AR interval is normal. QRS gemma interval is normal. QT interval is normal. No Q waves. T waves are Inverted. T waves are Flattened in leads II, III, aVF. Clinical impression: NSR w/ Non-specific ST/T Changes. Interpreted by me. Reviewed by me. 22:24 Rate is 80 beats/min. Rhythm is regular. QRS [place] is Normal. AR interval is normal. QRS gemma interval is normal. QT interval is normal. No Q waves. T waves are Normal. No ST changes noted. Clinical impression: NSR w/ Non-specific ST/T Changes and No evidence of ischemia. Interpreted by me. Reviewed by me. Administered Medications: 18:22 Drug: Pantoprazole IVP 40 mg IVP once Route: IVP; Site: left antecubital; ld1 23:13 Follow up: Response: No adverse reaction lg3 18:22 Drug: morphine IVP or IV 2 mg IVP once over 4 mins Route: IVP; Infused Over: 4 mins; ld1 Site: left antecubital; 23:13 Follow up: Response: No adverse reaction lg3 18:22 Drug: Ondansetron IVP 4 mg IVP once; over 2 minutes Route: IVP; Site: left antecubital; ld1 23:13 Follow up: Response: No adverse reaction lg3 18:50 Drug: morphine IVP or IV 4 mg IVP once over 4 mins; VERBAL ORDER PER DR. PINO Route: ld1 IVP; Infused Over: 4 mins; Site: left antecubital; 23:13 Follow up: Response: No adverse reaction lg3 22:00 Drug: morphine IVP or IV 4 mg IVP once over 4 mins Route: IVP; Infused Over: 4 mins; tm6 Site: left antecubital; 23:13 Follow up: Response: No adverse reaction lg3 22:00 Drug: Ondansetron IVP 4 mg IVP once; over 2 minutes Route: IVP; Site: left antecubital; tm6 23:13 Follow up: Response: No adverse reaction lg3 23:13 Drug: GI Cocktail with - (Maalox PO 30 ml, Lidocaine Mucous Membrane 2 % 20 lg3 ml, Phenobarbital-Belladonna PO 10 ml) PO once Route: PO; 23:13 Drug: Aspirin PO Chewable Tablet 81 mg PO once Route: PO; lg3 Disposition Summary: 09/08/23 22:29 Hospitalization Ordered Notes: Hospitalization Status: Observation gemma Provider: Bert Cruz cha Condition: Stable gemma Problem: new gemma Symptoms: have improved gemma Bed/Room Type: Standard gemma Location: [facility] ER HOLD(09/09/23 11:23) Room Assignment: (09/09/23 11:23) eb Diagnosis - Chest pain, unspecified gemma - Gastro-esophageal reflux disease with esophagitis gemma Forms: - Medication Reconciliation Form gemma - SBAR form gemma - Leadership Thank You Letter gemma Signatures: Dispatcher [employer] EDNii Chong MD MD cha Nieto, Roman, MD MD rn Garcia, Cindy, RN RN Na Tabor Elisabeth Sofia RN RN lg3 Josselyn Clifton RN RN ld1 Tereza Ruiz RN RN 1 Rhianna De Jesus RN RN tm6 Corrections: (The following items were deleted from the chart) 22:41 22:29 Telemetry/MedSurg (observation) formerly named [facility] 22:41 22:29 gemma 09/09 10:39 09/08 22:41 [facility] ER HOLD [facility] 09/09 10:39 09/08 22:41 ERHOLD- [facility] 02/24 11:23 10:39 Telemetry/MedSurg (observation) eb eb 10:39 216 eb
[2023-09-08] MEDS ORDERED: ASPIRIN 81 MG CHEWABLE TABLET ONE (22:40)
[2023-09-08] MEDS ORDERED: MAGNES/ALUMIN/SIMET 30ML UCUP ONE (22:40)
[2023-09-08] MEDS ORDERED: LIDOCAINE VISCOUS 2% 10ML ORAL SOLN ONE (22:40)
[2023-09-08] MEDS ORDERED: SODIUM CHLORIDE 0.9% 10ML INJ IV PRN (22:56)
[2023-09-08] MEDS ORDERED: LOPERAMIDE HCL 2 MG CAPSULE PO PRN (22:58)
[2023-09-08] MEDS: NACHLORIDE 0.45% 1,000 ML IV SCH (23:00)
--- NOTE | 2023-09-08 23:09 | P.HP ---
Certification for Inpatient Patient admitted to: Observation With expected LOS: <2 Midnights Practitioner: I am a practitioner with admitting privileges, knowledge of patient current condition, hospital course, and medical plan of care. Services: Services provided to patient in accordance with Admission requirements found in Title 42 Section 412.3 of the Code of Federal Regulations Patient History Date of Service: 09/08/23 Reason for admission: Epigastricretrosternal discomfort History of Present Illness: Patient is 58 years of age admitted with acute onset of epigastric/retrosternal discomfort that lasted a few minutes then completely resolved no prior history of coronary artery disease no prior history of chest pain on exertion patient does take pantoprazole at home Allergies duloxetine [From Cymbalta] Allergy (Verified 02/02/22 07:46) UNK milnacipran [From Savella] Allergy (Verified 02/02/22 07:46) UNK tramadol [From Ultram] Allergy (Verified 02/02/22 07:46) UNK Home Medications: Adalimumab [Humira 40 MG/0.8 ML*] 40 mg SQ SEECOM 06/15/22 Ergocalciferol (Vitamin D2) [Vitamin D 50,000 Unit Cap] 50,000 unit PO DIRECTED 06/15/22 Gabapentin [Neurontin] 600 mg PO BID 06/15/22 Lamotrigine [Lamotrigine ER] 200 mg PO BEDTIME 06/15/22 Levothyroxine [Synthroid*] 50 mcg PO [id number] 06/15/22 Pantoprazole [Protonix Tab*] 40 mg PO DAILY 06/15/22 Quetiapine [Seroquel*] 100 mg PO BEDTIME 06/15/22 Sertraline [Zoloft*] 50 mg PO BEDTIME 06/15/22 hydrOXYzine HCL [Atarax*] 25 mg PO BID 06/15/22 Aspirin Chewable [Aspirin Chewable*] 81 mg PO DAILY #30 tab.chew 06/16/22 Empagliflozin/Metformin HCl [Synjardy 5-1,000 mg Tablet] 1 each PO BID #60 tab 06/16/22 Hydrocodone 5/APAP 325 [[place] 5/325*] 1 tab PO Q6H PRN #30 tab 06/16/22 Melatonin 10 mg PO BEDTIME PRN PRN #20 06/16/22 Simvastatin [Zocor] 80 mg PO DAILY #30 tab 06/16/22 - Past Medical/Surgical History Diabetic: Yes -: RA -: NIDDM2 -: Fibromyalgia -: RA -: bipolar -: sleep apnea -: hashimotos disease -: R hip replacement -: cholecystectomy -: hysterectomy -: c section -: L knee surgery -: L side thyroidectomy (cancer) - Family History Mother -: Hypertension, Diabetes Father -: Diabetes, Other (see notes) (HLD) - Social History Alcohol use: Yes CD- Drugs: No Caffeine use: Yes Review of Systems 10-point ROS is otherwise unremarkable Gastrointestinal: Abdominal Pain, Diarrhea Physical Examination - Vital Signs Temperature: 98.3 F Blood Pressure: 109/81 Pulse: 81 Respirations: 18 Pulse Ox (%): 94 - Physical Exam General: Oriented x3 HEENT: Atraumatic, Other Neck: Supple Respiratory: Clear to auscultation bilaterally Cardiovascular: No edema, Regular rate/rhythm, Normal S1 S2 Gastrointestinal: Normal bowel sounds, Soft and benign, Non-distended Musculoskeletal: No clubbing, No swelling, No contractures Integumentary: No rashes, No breakdown - Studies Laboratory Data (last 24 hrs) 09/08/23 09/08/23 09/08/23 18:06 18:06 18:06 WBC 6.80 Hgb 12.6 Hct 36.5 Plt Count 265 PT 10.7 INR 0.97 Sodium 142 Potassium 3.9 BUN 10 Creatinine 1.00 Glucose 114 H Total Bilirubin 0.3 AST 33 ALT 38 Alkaline Phosphatase 73 Lipase 28 Assessment and Plan - Problems (Diagnosis) (1) Atypical chest pain Current Visit: Yes Status: Acute Plan: Patient is 58 years of age admitted with atypical fleeting retrostern al/epigastric chest discomfort patient does take Ozempic prior history of coronary artery disease troponin is negative history of TIA patient is has risk factors for coronary artery disease including diabetes will check troponin again x-ray is clear (2) Diarrhea Current Visit: Yes Status: Acute Plan: Patient is being complaining of diarrhea abdominal bloating for the past 2 weeks apparently was precipitated by consumption of some yogurt patient is has lactose intolerance CT dissection did not show any acute abnormalities in the abdomen patient is on Ozempic is quite possible that she is experiencing side effect of Ozempic only needs to hold the medication for now while we will start her on lactose free diet IV fluids monitor labs Qualifiers: Diarrhea type: unspecified type Qualified Code(s): R19.7 - Diarrhea, unspecified - Advance Directives Does patient have a Living Will: No Does patient have a Durable POA for Healthcare: No
[2023-09-09] MEDS ORDERED: NACHLORIDE 0.45% 1,000 ML IV ONE (01:03)
[2023-09-09 01:15] VITALS: BMI 30.7
[2023-09-09 01:33] LABS: Hematocrit 35.9 % (36.0-45.0); MCV 90.9 fL (80-100); MPV 8.7 fL (7.6-11.3); Platelets 249 thou/uL (152-406); RBC Red Blood Cell Count 3.95 M/uL (3.86-4.86)
[2023-09-09 01:49] LABS: Potassium 3.9 mEq/L (3.5-5.1)
[2023-09-09] MEDS ORDERED: PANTOPRAZOLE 40 MG INJ ONE (07:40)
[2023-09-09] MEDS: PANTOPRAZOLE 40 MG INJ IVP SCH (08:13)
--- NOTE | 2023-09-09 12:12 | P.DS ---
Admission Date: 09/08/23 Discharge Date: 09/09/23 Disposition: ROUTINE DISCHARGE Discharge Condition: FAIR Reason for Admission: Epigastricretrosternal discomfort - Problems (1) Morbid obesity Current Visit: Yes Status: Acute (2) Type II diabetes mellitus Current Visit: Yes Status: Acute (3) Atypical chest pain Current Visit: Yes Status: Acute (4) Diarrhea Current Visit: Yes Status: Acute Qualifiers: Diarrhea type: unspecified type Qualified Code(s): R19.7 - Diarrhea, unspecified Brief History of Present Illness: Patient is 58 years of age with a history of diabetes, morbid obesity who presented with acute onset of epigastric/retrosternal discomfort that lasted a few minutes then resolved. She was also complaining of left anterior chest pain which was reproducible by palpation. No prior history of coronary artery disease no prior history of chest pain on exertion. She has a history of GERD and takes Protonix. Initial troponin negative, CT dissection was negative, EKG did not show ischemic changes. Patient was hospitalized for ACS rule out. Hospital Course: Patient was hospitalized for ACS rule out. Patient had left-sided chest pain which is reproducible by palpation suggesting musculoskeletal pain. EKG did not show any ischemic changes. 3 sets of troponin trended negative. Acute coronary syndrome ruled out, no heart attack. Patient had other symptoms including nausea, abdominal symptoms, flatulence, abdominal bloating and diarrhea. Symptoms precipitated after she ate yogurt and [place] food. Patient bloating, abdominal discomfort and diarrhea likely related to meal related and could be lactose intolerance or osmotic diarrhea. ACS ruled out, patient vitals have been stable, she is asymptomatic and has tolerated diet. Vital Signs/Physical Exam: Temp Pulse Resp BP Pulse Ox 97.9 F 68 14 101/74 95 09/09/23 11:44 09/09/23 11:44 09/09/23 11:44 09/09/23 11:44 09/09/23 11:44 General: Alert, In no apparent distress, Oriented x3, Obese HEENT: Mucous membr. moist/pink Neck: Supple, JVD not distended Respiratory: Clear to auscultation bilaterally, Normal air movement Cardiovascular: No edema, Regular rate/rhythm, Normal S1 S2 Gastrointestinal: Normal bowel sounds, Soft and benign, Non-distended Musculoskeletal: No swelling Integumentary: No rashes, No cyanosis Neurological: Normal strength at 5/5 x4 extr Laboratory Data at Discharge: WBC 5.90 thou/uL (4.3-10.9) 09/09/23 01:21 Hgb 12.9 g/dL (12.0-15.0) 09/09/23 01:21 Hct 35.9 % (36.0-45.0) L 09/09/23 01:21 Plt Count 249 thou/uL (152-406) 09/09/23 01:21 PT 10.7 SECONDS (9.5-12.5) 09/08/23 18:06 INR 0.97 09/08/23 18:06 Sodium 141 mEq/L (136-145) 09/09/23 01:21 Potassium 3.9 mEq/L (3.5-5.1) 09/09/23 01:21 BUN 8 mg/dL (7-18) 09/09/23 01:21 Creatinine 0.75 mg/dL (0.55-1.02) 09/09/23 01:21 Glucose 83 mg/dL (74-106) 09/09/23 01:21 Total Bilirubin 0.3 mg/dL (0.2-1.0) 09/08/23 18:06 AST 33 U/L (15-37) 09/08/23 18:06 ALT 38 U/L (13-56) 09/08/23 18:06 Alkaline Phosphatase 73 U/L (45-117) 09/08/23 18:06 Lipase 28 U/L (13-75) 09/08/23 18:06 Home Medications: Ergocalciferol (Vitamin D2) [Vitamin D 50,000 Unit Cap] 50,000 unit PO DIRECTED 06/15/22 Gabapentin [Neurontin] 300 mg PO TID 06/15/22 Lamotrigine [Lamotrigine ER] 200 mg PO BEDTIME 06/15/22 Levothyroxine [Synthroid*] 75 mcg PO [id number] 06/15/22 Pantoprazole [Protonix Tab*] 40 mg PO DAILY 06/15/22 Quetiapine [Seroquel*] 100 mg PO BEDTIME 06/15/22 Sertraline [Zoloft*] 50 mg PO BEDTIME 06/15/22 hydrOXYzine HCL [Atarax*] 25 mg PO BID 06/15/22 Aspirin Chewable [Aspirin Chewable*] 81 mg PO DAILY #30 tab.chew 06/16/22 Simvastatin [Zocor] 80 mg PO DAILY #30 tab 06/16/22 Adalimumab [Humira 40 MG/0.8 ML*] 40 mg SQ DIRECTED 09/09/23 Aspirin [Ecotrin 81 MG] 81 mg PO DAILY 09/09/23 Empagliflozin/Metformin HCl [Synjardy 5-1,000 mg Tablet] See Rx Instructions .ROUTE .COMPLEX 09/09/23 Hydroxychloroquine [Plaquenil*] 400 mg PO DAILY 09/09/23 Icosapent Ethyl [Vascepa] 1 gm PO BEDTIME 09/09/23 Icosapent Ethyl [Vascepa] 1 gm PO BEDTIME 09/09/23 Semaglutide [Ozempic] 1 mg SQ DIRECTED 09/09/23 lamoTRIgine [Lamictal] 200 mg PO BEDTIME 09/09/23 minoxidiL [Loniten*] 2.5 mg PO DAILY 09/09/23 Physician Discharge Instructions: Patient was hospitalized for ACS rule out. Patient had left-sided chest pain which is reproducible by palpation suggesting musculoskeletal pain. EKG did not show any ischemic changes. 3 sets of troponin trended negative. Acute coronary syndrome ruled out, no heart attack. Patient had other symptoms including nausea, abdominal symptoms, flatulence, abdominal bloating and diarrhea. Symptoms precipitated after she ate yogurt and [place] food. Patient bloating, abdominal discomfort and diarrhea likely related to meal related and could be lactose intolerance or osmotic diarrhea. ACS ruled out, patient vitals have been stable, she is asymptomatic and has tolerated diet. Diet: ADA Activity: Ad leora Followup: Janel Snow MD [Primary Care Provider] - 1-2 Weeks Time spent managing pt's care (in minutes): 26
[2023-09-09] MEDS ORDERED: LEVOTHYROXINE SOD 0.05 MG TABLET PO SCH (13:00)
[2023-09-09 14:17] VITALS: BP 119/87; TEMP 98.3; O2SAT 92
[2023-09-09] MEDS ORDERED: QUETIAPINE 100MG TAB PO SCH (21:00)
[2023-09-09] MEDS ORDERED: SERTRALINE HCL 50 MG TAB PO SCH (21:00)
--- NOTE | 2023-09-11 14:36 | EKG ---
Test Date: 2023-09-08 Test Time: 18:11:29 [place] Machine Operator: Martha MCGRAW MEASUREMENT RESULTS: Intervals: Rate: 80 FL: 176 QRSD: 80 QT: 378 QTc: 435 [place]: P: 100 FL: 176 QRS: 6 T: 41 INTERPRETIVE STATEMENTS: Normal sinus rhythm Low voltage QRS Borderline ECG Compared to ECG 05/24/2023 15:16:43 Myocardial infarct finding no longer present Electronically Signed On 09-11-23 14:29:18 MEDICAL EDUCATION COORDINATOR by Romulo Fisher
--- NOTE | 2023-09-11 14:36 | EKG ---
Test Date: 2023-09-08 Test Time: 20:25:10 Delinquent Account Clerk: JOSUE MEASUREMENT RESULTS: Intervals: Rate: 75 WA: 192 QRSD: 82 QT: 402 QTc: 448 [place]: P: 48 WA: 192 QRS: 19 T: 21 INTERPRETIVE STATEMENTS: Normal sinus rhythm Low voltage QRS Borderline ECG Compared to ECG 09/08/2023 18:11:29 No significant changes Electronically Signed On 09-11-23 14:29:10 MANAGER OF SUPPLY CHAIN by Romulo Fisher
== END 2023-09-09 13:40 | disposition home or self-care (01) ==
LOC: ER 17:57 → ERHOLD 22:36
PROVIDERS: ADMIT Internal Medicine Sleep Medicine; ATTEND Internal Medicine
DX: R07.89 Other chest pain (principal); K21.00 Gastro-esophageal reflux disease with esophagitis, without bleeding; R19.7 Diarrhea, unspecified; Z88.8 Allergy status to other drugs, medicaments and biological substances; E89.0 Postprocedural hypothyroidism; Z85.850 Personal history of malignant neoplasm of thyroid; E06.3 Autoimmune thyroiditis; M79.7 Fibromyalgia; E11.9 Type 2 diabetes mellitus without complications
CPT/HCPCS: 85025; 80048; 36415; 85610; 85027; 84484 ×3; 83690; 80053; 83880; 71275; 74175; 71045; Q9967; C9113 ×2; J2270; J2405 ×2; 93005; G0378

== ENCOUNTER 2024-11-18 11:54 | Emergency (ER) | payer OTHER ==
--- OUTSIDE RECORDS SUMMARY | 2024-11-18 12:10 | XMS REPORT | Continuity of Care Document ---
Author Name Unknown Address [address] [facility] [address] [place] [address] [facility] [place] Address [address] [facility] [address] [place] [address] Care Team Providers Care Senior Account Manager Name Role Phone Babita Saldana MD Primary Care Physician Franko Thakur Attending Clinician Unavailable Corwin Claros Attending Clinician Unav Corwin Perry Attending Clinician Unav ailRIVKA Jalloh Attending Clinician RIVKA Thurman Attending Clinician BABITA Ashton Attending Clinician Unavailable BABITA SALDANA Attending Clinician Unavailable MANISHA NORRIS Attending Clinician Unavailable MANISHA NORRIS Attending Clinician Unavailable Joanna SNOW, Babita Attending Clinician [phone] Juvenal [facility], Monica Julio Attending Clinician Unava UMBERTO Trevino Attending Clinician UnavailUMBERTO Toussaint Attending Clinician UnavailUmberto Toussaint MD Attending Clinician [phone] Doctor Unassigned, [place] Attending Clinician U sabina Jo MD, Harry Felder Attending Clinician Bobo Norris PA-C, Manisha Hale Attending Clinician [phone] Cheng SNOW, Rivka Attending Clinician + [phone] Anderson Ellison Attending Clinician Unavailfawad Vivar [facility], Leydi Attending Clinician UnavailDanette Sanders LVN Attending Clinician Unavailabl e Pcp-Lab Attending Clinician Unavailable Rohan Felder, Patrica Draper Attending Clinician JANEL Potter Attending Clinician Miriam vailayesenia Rosado [facility], Franko Thomas Attending Clinician Unava alejandra Peres [facility], Emilie Attending Clinician Unavailable Doctor Unassigned, [place] Attending Clinician U Janel Armijo MD Attending Clinician Umberto Saul MD Attending Clinician [phone] Ja [facility], Emilie Attending Clinician Unavailable Alonzo [facility]ician Franko العلي MD Attending Clinician + [phone] Mrs Amanda Cervantes Attending Clinician UnavailFRANKO Toribio Attending Clinician David Canales DO Attending Clinician [phone] Pcp-Lab Attending Clinician Unavailable MANISHA NORRIS Attending Clinician Unavailable SHALINI ALLEN Attending Clinician UnavailRosales Jaime PA-C Attending Clinician [phone] ROSALES CHIU Attending Clinician Unavailable Lab, Ang - Db Attending Clinician Unavailable Jeane Pruett Attending Clinician [phone] LICO WHITE Attending Clinician Unavailable LICO WHITE Attending Clinician Unavailable SUNIL NAQVI Attending Clinician Unavailable Leela Bonilla MD Attending Clinician + [phone] Guerita Alonso MD Attending Clinician [phone] Dixie Bhardwaj Attending Clinician [phone] DIXIE ALANIS Attending Clinician Unavailable Kasandra Portillo RN Attending Clinician Unavailable Dinh Phillips CRNA Attending Clinician [phone] Heriberto Vyas MD Attending Clinicia n Only, [facility] Test Attending Clinician Unavailable Pob, [facility] Lab Main Attending Clinician UnavailDonna Espinal PT Attending Clinician Un available Buddy Mujica MD Attending Clinician [phone] BUDDY MUJICA Attending Clinician Unavailable Faith Hall MA Attending Clinician Unavail able GUERITA ALONSO Attending Clinician Unavailable LEELA BONILLA Attending Clinician Unavaila LEELA Madison Attending Clinician Unavaila Teresa Edmonds Attending Clinician Unava ilable 1, [facility] Sleep Lab Bed Attending Clinician Unavail able Anderson Hilton MD Attending Clinician [phone] GARLAND CURRIE Attending Clinician Un available Andry Dinero Attending Clinician Unavailab Andry Ro Attending Clinician Unavailab Corwin Heard Admitting Clinician Unav ailRIVKA Jalloh Admitting Clinician Unavai MANISHA Gibbons Admitting Clinician Unavailable UMBERTO SAUL Admitting Clinician UnavailUmberto Toussaint MD Admitting Clinician [phone] BUDDY MUJICA Admitting Clinician Unavailable Payers Payer Name Policy Type Policy Number Effective Date Expirati on Date Source [facility] DUAL COMP HMO-POS D SNP [id number] 2024 00:00:00 Problems Condition Name Condition Details Condition Category Status Onset Date Resolution Date Last Treatment Date Treating Clinician Comments Source Hip osteoarthr itis Hip osteoarthr itis Disease Active 18 00:00: 00 [facility] Obesity (BMI 30-39.9) Obesity (BMI 30-39.9) Disease Active 15 00:00: 00 [facility] Primary osteoarthr itis of right hip Primary osteoarthr itis of right hip Disease Active 30 00:00: 00 Overview: Formattin g of this note might be different from the original. Added automatic ally from request for surgery [id number] [facility] Type 2 diabetes mellitus without complicati on, without long-term current use of insulin Type 2 diabetes mellitus without complicati on, without long-term current use of insulin Disease Active 03-18 00:00: 00 [facility] Thyroid nodule Thyroid nodule Disease Active 03-18 00:00: 00 [facility] Dyslipidem ia Dyslipidem ia Disease Active 03-18 00:00: 00 [facility] Type 2 diabetes mellitus without complicati on, without long-term current use of insulin Type 2 diabetes mellitus without complicati on, without long-term current use of insulin Disease Active 03-18 00:00: 00 [facility] Carpal tunnel syndrome of right wrist Carpal tunnel syndrome of right wrist Disease Active 01-07 00:00: 00 [facility] Ganglion cyst Ganglion cyst Disease Active 01-07 00:00: 00 [facility] Tenosynovi tis of right hand Tenosynovi tis of right hand Disease Active 2017-07 00:00: 00 [facility] 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 Disease Active 2017-07 00:00: 00 [facility] Sleep apnea Sleep apnea Disease Active 2017-07 00:00: 00 [facility] Vitamin D deficiency Vitamin D deficiency Disease Active 2017-07 00:00: 00 [facility] Depressed bipolar disorder Depressed bipolar disorder Disease Active 03-04 00:00: 00 [facility] Fibromyalg ia Fibromyalg ia Disease Active 03-04 00:00: 00 [facility] Silas thyroiditi s, fibrous variant Silas thyroiditi s, fibrous variant Disease Active 03-04 00:00: 00 [facility] Rheumatoid arthritis Rheumatoid arthritis Disease Active 03-04 00:00: 00 [facility] Allergies, Adverse Reactions, Alerts Allergy Name Allergy Type Status Severity Reaction(s) Onset Date Inactive Date Treating Clinician Comments Source ACETAMIN OPHEN-CO DEINE DRUG Active ITCHING 0 - 00:00: 00 [facility] Acetamin ophen-Co deine Propensi ty to adverse reaction s Active Itching 0 12-24 00:00: 00 [facility] Tramadol Propensi ty to adverse reaction s Active Itching 0 01-05 00:00: 00 [facility] TRAMADOL DRUG INGREDI Active ITCHING 0 01-05 00:00: 00 [facility] EDOXABAN TOSYLATE DRUG INGREDI Active High Rash 2020-0 -20 00:00: 00 [facility] DULOXETI NE HCL DRUG INGREDI Active Med Rash 2020-0 -20 00:00: 00 [facility] MILNACIP RAN HCL DRUG INGREDI Active Med Other-Cmnt 0 -20 00:00: 00 [facility] Duloxeti ne Hcl Drug Allergy Active Rash 2020-0 -20 00:00: 00 [facility] Edoxaban Tosylate Drug Allergy Active Rash 2020-0 -20 00:00: 00 [facility] Milnacip ran Hcl Drug Allergy Active Other - See comments - 00:00: 00 [facility] lactose DA Active U 01-31 00:00: 00 [facility] duloxeti ne DA Active ID 01-31 00:00: 00 [facility] Cymbalta Drug Active [facility] Savella Drug Active [facility] [place] Drug Active [facility] [place] Drug Active [facility] Cymbal Drug Active Medical [facility] Drug Active [facility] Social History Social Habit Start Date Stop Date Quantity Comments Source [facility] ASSERTION Not [facility] Alcoholic beverage intake 2024-11-07 00:00:00 2024-11-07 00:00:00 Current drinker of alcohol (finding) [facility] History of Social function 2024-09-30 00:00:00 2024-09-30 00:00:00 [facility] Cigarettes smoked current (pack per day) - Reported 2023-12-19 00:00:00 2023-12-19 00:00:00 [facility] Cigarette pack-years 2023-12-19 00:00:00 2023-12-19 00:00:00 [facility] Tobacco use and exposure 2023-12-19 00:00:00 2023-12-19 00:00:00 User of smokeless tobacco [facility] Alcohol intake 2023-09-29 00:00:00 2023-09-29 00:00:00 Current drinker of alcohol (finding) [facility] Exposure to SARS-CoV-2 (event) 2022-12-29 00:00:00 2023-01-08 11:26:00 Not sure [facility] History SDOH Alcohol Frequency 2022-12-06 00:00:00 2022-12-06 00:00:00 2 [facility] History SDOH Alcohol Std Drinks 2022-12-06 00:00:00 2022-12-06 00:00:00 1 [facility] History SDOH Alcohol Binge 2022-12-06 00:00:00 2022-12-06 00:00:00 1 [facility] History SDOH Social Connections Phone 2022-12-06 00:00:00 2022-12-06 00:00:00 5 [facility] History SDOH Social Connections Get Together 2022-12-06 00:00:00 2022-12-06 00:00:00 5 [facility] History SDOH Social Connections Hindu 2022-12-06 00:00:00 2022-12-06 00:00:00 98 [facility] History SDOH Social Connections Membership 2022-12-06 00:00:00 2022-12-06 00:00:00 1 [facility] History SDOH Social Connections Meetings 2022-12-06 00:00:00 2022-12-06 00:00:00 3 [facility] History SDOH Social Connections Living 2022-12-06 00:00:00 2022-12-06 00:00:00 5 [facility] History SDOH Physical Activity DPW 2022-12-06 00:00:00 2022-12-06 00:00:00 0 [facility] History SDOH Physical Activity MPS 2022-12-06 00:00:00 2022-12-06 00:00:00 0 [facility] History SDOH Stress 2022-12-06 00:00:00 2022-12-06 00:00:00 3 [facility] History SDOH Financial 2022-12-06 00:00:00 2022-12-06 00:00:00 4 [facility] History SDOH Transport Med 2022-12-06 00:00:00 2022-12-06 00:00:00 2 [facility] History SDOH Transport Non-Med 2022-12-06 00:00:00 2022-12-06 00:00:00 2 [facility] History SDOH Housing Unable to Pay 2022-12-06 00:00:00 2022-12-06 00:00:00 2 [facility] History SDOH Housing Places Lived 2022-12-06 00:00:00 2022-12-06 00:00:00 1 [facility] History SDOH Housing Homeless Last Year 2022-12-06 00:00:00 2022-12-06 00:00:00 2 [facility] Tobacco Comment 2022-01-25 00:00:00 2022-01-25 00:00:00 occasional [facility] Alcohol Comment 2021-02-02 00:00:00 2021-02-02 00:00:00 socially [facility] History of tobacco use 1981-02-02 00:00:00 1993-02-02 00:00:00 Cigarette Smoker [facility] Sex assigned at 1965 00:00:00 1965 00:00:00 [facility] Smoking Status Start Date Stop Date Source Ex-smoker 2023-12-19 00:00:00 2023-12[facility]19 [facility] Ordered Medication Name Filled Medication Name Start Date Stop Date Current Medication? Ordering Clinician Indication Dosage Frequency Signature (SIG) Comments Components Source TRULANCE 3 mg Tab 11-06 00:00: 00 Yes 3mg Take 1 tablet by mouth every morning. [facility] omeprazole 40 mg capsule 10-28 00:00: 00 Yes TAKE 1 CAPSULE DAILY BY MOUTH HALF HOUR BEFORE BREAKFAST OR FIRST MEAL [facility] adalimumab (HUMIRA,CF, PEN) 40 mg/0.4 mL injection [id number] 3-06 00:00: 00 Yes [id number] 40mg inject 1 Pen under the skin every 14 (fourteen) days. [facility] dexamethaso ne sod phos PF injection 10 mg 08-20 21:45: 00 08-20 21:03 :00 No [id number] 10mg 10 mg, Intramuscu lar, ONCE, 1 dose, On Mon08/20/24 at 1545, Routine [facility] triamcinolo ne acetonide (KENALOG) injection 40 mg 07-26 20:13: 00 07-26 20:15 :00 No [id number] 40mg 40 mg, Intra-anastasiia cular, ONCE, 1 dose, On Mon07/26/24 at 1415, Routine [facility] OZEMPIC 2 mg/dose (8 mg/3 mL) PnIj 2023-07 00:00: 00 Yes INJECT 2 MG SUBCUTANEO USLY ONCE WEEKLY [facility] adalimumab (HUMIRA,CF, PEN) 40 mg/0.4 mL injection 2023-07 00:00: 00 09-17 00:00 :00 No [id number] 40mg inject 1 Pen under the skin every 14 (fourteen) days. [facility] oxyCODONE-a cetaminophe n 5-325 mg per tablet 2023-07 009 10:01: 15 Yes 1{tbl} Take 1 tablet by mouth 2 (two) times daily as needed. [facility] hydroxychlo roquine (PLAQUENIL) 200 mg tablet 2023-07 00:00: 00 Yes [id number] 400mg Take 2 tablets by mouth in the morning. [facility] gabapentin 600 mg tablet 02-14 00:00: 00 Yes [id number] 600mg Take 1 tablet by mouth in the morning and 1 tablet at noon and 1 tablet in the evening. [facility] adalimumab (HUMIRA,CF, PEN) 40 mg/0.4 mL injection 02-12 00:00: 00 05-22 00:00 :00 No [id number] 40mg inject 1 Pen under the skin every 14 (fourteen) days. [facility] hydroxychlo roquine (PLAQUENIL) 200 mg tablet 01-30 00:00: 00 04-23 00:00 :00 No [id number] 400mg Take 2 tablets by mouth in the morning. [facility] SIMVASTATIN 80 mg tablet 01-14 00:00: 00 Yes [id number] 80mg TAKE 1 TABLET BY MOUTH AT BEDTIME [facility] triamcinolo ne acetonide (KENALOG) injection 16 mg 01-04 18:00: 00 01-04 16:46 :00 No [id number] 16mg 16 mg, Intramuscu lar, ONCE, 1 dose, On Mon01/05/24 at 1300, Routine [facility] ibuprofen 800 mg tablet 12-21 00:00: 00 Yes 800mg Take 1 tablet by mouth every 6 (six) hours as needed for Pain (scale 1-3). [facility] aspirin 81 mg EC tablet 12-18 14:29: 04 Yes 81mg Take 1 tablet by mouth in the morning. [facility] HYDROcodone -acetaminop hen 5-325 mg tablet -04 00:00: 00 12-26 04:59 :00 No [id number] 1{tbl} Take 1 tablet by mouth every 6 (six) hours as needed for Pain (scale 7-10) for up to 7 days. Indication s: acute pain [facility] adalimumab (HUMIRA,CF, PEN) 40 mg/0.4 mL injection 16 00:00: 00 02-12 00:00 :00 No [id number] 40mg inject 1 Pen under the skin every 14 (fourteen) days. [facility] SIMVASTATIN 80 mg tablet 10-22 00:00: 00 01-14 00:00 :00 No [id number] 80mg TAKE 1 TABLET BY MOUTH AT BEDTIME [facility] semaglutide (OZEMPIC) 1 mg/dose (2 mg/1.5 mL) PnIj -21 00:00: 00 08-20 00:00 :00 No 2mg inject 2 mg under the skin weekly. [facility] gabapentin 600 mg tablet 15 00:00: 00 02-13 00:00 :00 No [id number] 600mg Take 1 tablet by mouth in the morning and 1 tablet at noon and 1 tablet in the evening. [facility] simvastatin 80 mg tablet -18 00:00: 00 10-22 00:00 :00 No [id number] 80mg TAKE 1 TABLET BY MOUTH AT BEDTIME [facility] Nebulizer & Compressor For Neb Elsi -16 00:00: 00 09-28 00:00 :00 No [id number] Use as directed [facility] albuterol 2.5 mg/0.5 mL nebulizer solution -16 00:00: 00 09-11 00:00 :00 No [id number] 2.5mg Inhale 0.5 mL every 6 (six) hours as needed for Wheezing. [facility] ibuprofen 600 mg tablet 07-30 00:00: 00 11-28 00:00 :00 No TAKE 1 TABLET BY MOUTH EVERY 6 HOURS NEEDED FOR PAIN WITH FOOD [facility] ondansetron 8 mg disintegrat ing tablet 07-30 00:00: 00 09-28 00:00 :00 No DISSOLVE ONE TABLET BY MOUTH EVERY 8 HOURS NEEDED FOR NAUSEA [facility] albuterol 2.5 mg /3 mL (0.083 %) nebulizer solution 07-30 00:00: 00 09-28 00:00 :00 No USE 1 VIAL VIA NEBULIZER EVERY 4 HOURS NEEDED FOR SHORTNESS OF BREATH [facility] methocarbam oL 750 mg tablet 07-30 00:00: 00 09-28 00:00 :00 No TAKE 2 TABLETS BY MOUTH EVERY 8 HOURS NEEDED FOR MUSCLE ACHES FOR 3 DAYS [facility] adalimumab (HUMIRA,CF, PEN) 40 mg/0.4 mL injection 2022-07 00:00: 00 10-24 00:00 :00 No [id number] 40mg inject 1 Pen under the skin every 14 (fourteen) days. [facility] gabapentin 300 mg capsule 2022-07 00:00: 00 09-28 00:00 :00 No [id number] 600mg Take 2 capsules by mouth in the morning and 2 capsules at noon and 2 capsules in the evening. [facility] pantoprazol e 40 mg EC tablet 2022-07 00:00: 00 Yes 40mg Take 1 tablet by mouth every morning. [facility] doxycycline hyclate 100 mg capsule 2022-07 00:00: 00 06-22 05:59 :00 No [id number] 100mg Take 1 capsule by mouth every 12 (twelve) hours for 7 days. [facility] hydroxychlo roquine (PLAQUENIL) 200 mg tablet 2022-07 00:00: 00 01-27 00:00 :00 No [id number] 400mg Take 2 tablets by mouth in the morning. [facility] SERTraline 50 mg tablet 2022-07 1 00:00: 00 Yes 50mg Take 1 tablet by mouth at bedtime. [facility] minoxidiL 2.5 mg tablet 2022-07 0-05 00:00: 00 04-24 00:00 :00 No 2.5mg Take 1 tablet by mouth in the morning. [facility] OZEMPIC 1 mg/dose (4 mg/3 mL) PnIj 03-24 00:00: 00 12-18 00:00 :00 No 1mg inject 1 mg under the skin weekly. [facility] GABAPENTIN 300 mg capsule 03-23 00:00: 00 07-07 00:00 :00 No [id number] TAKE 1 CAPSULE BY MOUTH IN THE MORNING AND AT NOON AND IN THE EVENING [facility] adalimumab (HUMIRA,CF, PEN) 40 mg/0.4 mL injection [id number] 9-07 00:00: 00 07-04 00:00 :00 No [id number] 40mg inject 1 Pen under the skin every 14 (fourteen) days. [facility] SERTraline 100 mg tablet 01-09 00:00: 00 06-14 00:00 :00 No [id number] 100mg Take 1 tablet by mouth in the morning. [facility] levothyroxi ne 75 mcg tablet 01-06 00:00: 00 Yes 75ug Take 1 tablet by mouth every morning. [facility] icosapent ethyL (VASCEPA) 1 gram capsule 01-06 00:00: 00 10-22 00:00 :00 No 1g Take 1 capsule by mouth at bedtime. [facility] hydrocortis one 2.5 % rectal cream 12-27 00:00: 00 06-14 00:00 :00 No APPLY TOPICALLY TO THE AFFECTED AREA TWICE DAILY [facility] OZEMPIC 0.25 mg or 0.5 mg (2 mg/3 mL) PnIj 6-09 00:00: 00 06-14 00:00 :00 No INJECT 0.5MG UNDER THE SKIN EVERY WEEK [facility] hydrOXYchlo roQUINE (PLAQUENIL) 200 mg tablet 11-30 00:00: 00 05-30 00:00 :00 No [id number] 400mg Take 2 tablets by mouth in the morning. [facility] adalimumab (HUMIRA,CF, PEN) 40 mg/0.4 mL injection 11-21 00:00: 00 03-23 00:00 :00 No [id number] 40mg inject 1 Pen under the skin every 14 (fourteen) days. [facility] estradioL (CLIMARA) 0.025 mg/24 hr patch 10-13 00:00: 00 01-09 00:00 :00 No 1{patch } Apply 1 Patch to skin weekly. [facility] benzonatate (TESSALON PERLES) 100 mg capsule 10-13 00:00: 00 12-07 00:00 :00 No [id number] 100mg Take 1 capsule by mouth every 8 (eight) hours as needed for Cough. [facility] montelukast 10 mg tablet 10-13 00:00: 00 12-07 00:00 :00 No [id number] 10mg Take 1 tablet by mouth in the morning. [facility] gabapentin 300 mg capsule 10-11 00:00: 00 03-23 00:00 :00 No [id number] 300mg Take 1 capsule by mouth in the morning and 1 capsule at noon and 1 capsule in the evening. [facility] hydrOXYchlo roQUINE (PLAQUENIL) 200 mg tablet 10-07 00:00: 00 11-30 00:00 :00 No [id number] 400mg Take 2 tablets by mouth in the morning. [facility] hydrOXYchlo roQUINE (PLAQUENIL) 200 mg tablet 10-07 00:00: 00 10-07 00:00 :00 No [id number] 200mg Take 1 tablet by mouth in the morning and 1 tablet in the evening. [facility] estradioL (MINIVELLE) 0.025 mg/24 hr patch 10-06 00:00: 00 10-13 00:00 :00 No [id number] 1{patch } Apply 1 Patch to skin 2 (two) times per week. [facility] Cholecalcif mary, Vitamin D3, (VITAMIN D3) 50 mcg (2,000 unit) tablet 09-28 00:00: 00 Yes [id number] Take 1 tablet by mouth in the morning. [facility] empaglifloz in-metformi n (SYNJARDY) 5-1,000 mg Tab 09-15 11:49: 18 09-15 00:00 :00 No Take by mouth 2 (two) times daily. [facility] empaglifloz in-metformi n (SYNJARDY) 5-1,000 mg Tab 09-15 00:00: 00 Yes [id number] 1{tbl} Take 1 tablet by mouth in the morning and 1 tablet in the evening. [facility] pantoprazol e 40 mg EC tablet 09-15 00:00: 00 01-09 00:00 :00 No 40mg Take 1 tablet by mouth every morning. [facility] simvastatin 80 mg tablet 09-13 07:41: 17 09-13 00:00 :00 No 80mg Take 80 mg by mouth at bedtime. [facility] simvastatin 80 mg tablet 09-13 00:00: 00 08-03 00:00 :00 No [id number] 80mg Take 1 tablet by mouth at bedtime. [facility] levothyroxi ne 50 mcg tablet 09-13 00:00: 00 01-09 00:00 :00 No [id number] 50ug Take 1 tablet by mouth every morning. [facility] adalimumab (HUMIRA,CF, PEN) 40 mg/0.4 mL injection 2023-0 2-10 00:00: 00 11-21 00:00 :00 No [id number] 40mg inject 1 Pen under the skin every 14 (fourteen) days. [facility] aspirin 81 mg EC tablet 07-20 09:15: 37 Yes 81mg Take 81 mg by mouth in the morning. [facility] simvastatin 80 mg tablet 07-20 09:15: 37 Yes 80mg Take 80 mg by mouth at bedtime. [facility] empaglifloz in-metformi n (SYNJARDY) 5-1,000 mg Tab 07-20 09:15: 37 Yes Take by mouth 2 (two) times daily. [facility] celecoxib (CELEBREX) 200 mg capsule 03-09 00:00: 00 04-09 04:59 :00 No [id number] 200mg Take 1 capsule by mouth in the morning for 30 days. [facility] adalimumab (HUMIRA,CF, PEN) 40 mg/0.4 mL injection 03-07 00:00: 00 08-24 00:00 :00 No [id number] 40mg inject 1 Pen under the skin every 14 (fourteen) days. [facility] blood sugar diagnostic (ACCU-CHEK GUIDE TEST STRIPS) strip 02-27 00:00: 00 Yes [id number] Use Daily. Dx E11.9 [facility] blood sugar diagnostic (ACCU-CHEK GUIDE TEST STRIPS) strip 814 00:00: 00 Yes [id number] Use Daily. Dx E11.9 [facility] SIMVASTATIN 40 mg tablet 08 00:00: 00 07-20 00:00 :00 No [id number] 40mg TAKE 1 TABLET BY MOUTH AT BEDTIME [facility] acetaminoph en-codeine (TYLENOL-CO DEINE #3) 300-30 mg tablet 7-25 00:00: 00 12-18 00:00 :00 No [id number] 2{tbl} Take 2 tablets by mouth every 6 (six) hours as needed for Pain (scale 4-6) or Pain (scale 7-10). Indication s: acute pain [facility] hydrOXYzine 25 mg tablet 6-13 00:00: 00 Yes 25mg Take 1 tablet by mouth 2 (two) times daily as needed. [facility] hydrOXYzine 25 mg tablet 09 13:28: 35 11-22 00:00 :00 No 25mg Take 25 mg by mouth every 8 (eight) hours as needed for Anxiety. [facility] gabapentin 300 mg capsule - 00:00: 00 10-11 00:00 :00 No [id number] 300mg Take 1 capsule by mouth 3 (three) times daily. [facility] adalimumab (HUMIRA,CF, PEN) 40 mg/0.4 mL injection 10-25 00:00: 00 03-07 00:00 :00 No [id number] 40mg inject 1 Pen under the skin every 14 (fourteen) days. [facility] gabapentin 300 mg capsule - 00:00: 00 11-04 00:00 :00 No [id number] 300mg Take 1 capsule by mouth 3 (three) times daily for 30 days. [facility] Lancets (ACCU-CHEK SOFTCLIX LANCETS) [facility] [place] -15 00:00: 00 Yes [id number] Use as directed to check blood sugar once daily E11.9 [facility] Lancets (ACCU-CHEK SOFTCLIX LANCETS) [facility] [place] -15 00:00: 00 Yes [id number] Use as directed to check blood sugar once daily E11.9 [facility] blood sugar diagnostic (ACCU-CHEK GUIDE TEST STRIPS) strip - 00:00: 00 02-27 00:00 :00 No [id number] Use as directed to check blood sugar once daily E11.9 [facility] metformin ER 500 mg 24 hr tablet 08-24 00:00: 00 07-20 00:00 :00 No [id number] 1000mg Take 2 tablets by mouth daily with breakfast. [facility] levothyroxi ne 50 mcg tablet 2- 00:00: 00 09-13 00:00 :00 No 50ug Take 50 mcg by mouth. [facility] pantoprazol e 40 mg EC tablet 1- 00:00: 00 04-08 00:00 :00 No 40mg Take 40 mg by mouth every morning. [facility] adalimumab (HUMIRA,CF, PEN) 40 mg/0.4 mL injection 2020-07 00:00: 00 10-25 00:00 :00 No [id number] 40mg inject 1 Pen under the skin every 14 (fourteen) days. [facility] simvastatin 40 mg tablet 03-09 00:00: 00 02-21 00:00 :00 No [id number] 40mg Take 1 tablet by mouth at bedtime. [facility] metformin ER 500 mg 24 hr tablet 02-16 00:00: 00 08-13 00:00 :00 No [id number] TAKE 1 TABLET BY MOUTH EVERY DAY WITH THE EVENING MEAL [facility] lamoTRIgine 200 mg tablet 12-08 00:00: 00 Yes 200mg Take 1 tablet by mouth at bedtime. [facility] QUEtiapine 100 mg tablet 12-08 00:00: 00 Yes 100mg Take 1 tablet by mouth at bedtime. [facility] SERTraline 50 mg tablet 12-08 00:00: 00 01-09 00:00 :00 No 50mg Take 50 mg by mouth at bedtime. [facility] oxyCODONE-a cetaminophe n 5-325 mg per tablet 12-02 00:00: 00 01-05 00:00 :00 No TAKE 1 TABLET BY MOUTH EVERY 4 HOURS NEEDED FOR PAIN [facility] Immunizations Ordered Immunization Name Filled Immunization Name Date Status Comments Source Influenza, High-Dose, Trivalent, PF (FLUZONE) 2024-04-22 00:00:00 Completed [facility] Influenza Virus Vaccine Quad IM, Preserv and ABX Free 6 MO-64 YRS (FLUCELVAX) 2023-06-14 00:00:00 Completed Influenza Virus Vaccine Quad IM, Preserv and ABX Free 6 MO-64 YRS 2022-04-08 00:00:00 Completed [facility] SARS-COV-2 COVID-19 VACCINE 18 YRS+, BIVALENT 0.5ML, IM, (MODERNA BOOSTER) 2022-04-08 00:00:00 Completed [facility] Influenza Virus Vaccine Quad IM, Preserv and ABX Free 6 MO-64 YRS 2022-04-08 00:00:00 Completed [facility] SARS-COV-2 COVID-19 VACCINE 18 YRS+, BIVALENT 0.5ML, IM, (MODERNA BOOSTER) 2022-04-08 00:00:00 Completed [facility] Influenza Virus Vaccine Quad IM, Preserv and ABX Free 6 MO-64 YRS 2022-04-08 00:00:00 Completed [facility] SARS-COV-2 COVID-19 VACCINE 18 YRS+, BIVALENT 0.5ML, IM, (MODERNA BOOSTER) 2022-04-08 00:00:00 Completed [facility] Influenza Virus Vaccine Quad IM, Preserv and ABX Free 6 MO-64 YRS 2022-04-08 00:00:00 Completed [facility] SARS-COV-2 COVID-19 VACCINE 18 YRS+, BIVALENT 0.5ML, IM, (MODERNA BOOSTER) 2022-04-08 00:00:00 Completed [facility] Influenza Virus Vaccine Quad IM, Preserv and ABX Free 6 MO-64 YRS 2022-04-08 00:00:00 Completed [facility] SARS-COV-2 COVID-19 VACCINE 18 YRS+, BIVALENT 0.5ML, IM, (MODERNA BOOSTER) 2022-04-08 00:00:00 Completed [facility] Influenza Virus Vaccine Quad IM, Preserv and ABX Free 6 MO-64 YRS 2022-04-08 00:00:00 Completed [facility] SARS-COV-2 COVID-19 VACCINE 18 YRS+, BIVALENT 0.5ML, IM, (MODERNA BOOSTER) 2022-04-08 00:00:00 Completed [facility] Influenza Virus Vaccine Quad IM, Preserv and ABX Free 6 MO-64 YRS 2022-04-08 00:00:00 Completed [facility] SARS-COV-2 COVID-19 VACCINE 12 YRS+, BIVALENT 0.5ML, IM, (MODERNA BOOSTER) 2022-04-08 00:00:00 Completed [facility] Influenza Virus Vaccine Quad IM, Preserv and ABX Free 6 MO-64 YRS 2022-04-08 00:00:00 Completed [facility] SARS-COV-2 COVID-19 VACCINE 12 YRS+, BIVALENT 0.5ML, IM, (MODERNA BOOSTER) 2022-04-08 00:00:00 Completed [facility] Influenza Virus Vaccine Quad IM, Preserv and ABX Free 6 MO-64 YRS 2022-04-08 00:00:00 Completed [facility] SARS-COV-2 COVID-19 VACCINE 12 YRS+, BIVALENT 0.5ML, IM, (MODERNA BOOSTER) 2022-04-08 00:00:00 Completed [facility] Influenza Virus Vaccine Quad IM, Preserv and ABX Free 6 MO-64 YRS 2022-04-08 00:00:00 Completed [facility] SARS-COV-2 COVID-19 VACCINE 12 YRS+, BIVALENT 0.5ML, IM, (MODERNA BOOSTER) 2022-04-08 00:00:00 Completed [facility] Influenza Virus Vaccine Quad IM, Preserv and ABX Free 6 MO-64 YRS 2022-04-08 00:00:00 Completed [facility] SARS-COV-2 COVID-19 VACCINE 12 YRS+, BIVALENT 0.5ML, IM, (MODERNA BOOSTER) 2022-04-08 00:00:00 Completed [facility] Influenza Virus Vaccine Quad IM, Preserv and ABX Free 6 MO-64 YRS 2022-04-08 00:00:00 Completed [facility] SARS-COV-2 COVID-19 VACCINE 12 YRS+, BIVALENT 0.5ML, IM, (MODERNA BOOSTER) 2022-04-08 00:00:00 Completed [facility] Influenza Virus Vaccine Quad IM, Preserv and ABX Free 6 MO-64 YRS 2022-04-08 00:00:00 Completed [facility] SARS-COV-2 COVID-19 VACCINE 12 YRS+, BIVALENT 0.5ML, IM, (MODERNA BOOSTER) 2022-04-08 00:00:00 Completed [facility] Influenza Virus Vaccine Quad IM, Preserv and ABX Free 6 MO-64 YRS 2022-04-08 00:00:00 Completed [facility] SARS-COV-2 COVID-19 VACCINE 12 YRS+, BIVALENT 0.5ML, IM, (MODERNA BOOSTER) 2022-04-08 00:00:00 Completed [facility] Influenza Virus Vaccine Quad IM, Preserv and ABX Free 6 MO-64 YRS 2022-04-08 00:00:00 Completed [facility] SARS-COV-2 COVID-19 VACCINE 12 YRS+, BIVALENT 0.5ML, IM, (MODERNA BOOSTER) 2022-04-08 00:00:00 Completed [facility] Influenza Virus Vaccine Quad IM, Preserv and ABX Free 6 MO-64 YRS 2022-04-08 00:00:00 Completed [facility] SARS-COV-2 COVID-19 VACCINE 12 YRS+, BIVALENT 0.5ML, IM, (MODERNA BOOSTER) 2022-04-08 00:00:00 Completed [facility] Influenza Virus Vaccine Quad IM, Preserv and ABX Free 6 MO-64 YRS 2022-04-08 00:00:00 Completed [facility] SARS-COV-2 COVID-19 VACCINE 12 YRS+, BIVALENT 0.5ML, IM, (MODERNA BOOSTER) 2022-04-08 00:00:00 Completed [facility] Influenza Virus Vaccine Quad IM, Preserv and ABX Free 6 MO-64 YRS 2022-04-08 00:00:00 Completed [facility] SARS-COV-2 COVID-19 VACCINE 12 YRS+, BIVALENT 0.5ML, IM, (MODERNA BOOSTER) 2022-04-08 00:00:00 Completed [facility] Influenza Virus Vaccine Quad IM, Preserv and ABX Free 6 MO-64 YRS 2022-04-08 00:00:00 Completed [facility] SARS-COV-2 COVID-19 VACCINE 12 YRS+, BIVALENT 0.5ML, IM, (MODERNA BOOSTER) 2022-04-08 00:00:00 Completed [facility] Influenza Virus Vaccine Quad IM, Preserv and ABX Free 6 MO-64 YRS 2022-04-08 00:00:00 Completed [facility] SARS-COV-2 COVID-19 VACCINE 12 YRS+, BIVALENT 0.5ML, IM, (MODERNA BOOSTER) 2022-04-08 00:00:00 Completed [facility] Influenza Virus Vaccine Quad IM, Preserv and ABX Free 6 MO-64 YRS 2022-04-08 00:00:00 Completed [facility] SARS-COV-2 COVID-19 VACCINE 12 YRS+, BIVALENT 0.5ML, IM, (MODERNA BOOSTER) 2022-04-08 00:00:00 Completed [facility] Influenza Virus Vaccine Quad IM, Preserv and ABX Free 6 MO-64 YRS 2022-04-08 00:00:00 Completed [facility] SARS-COV-2 COVID-19 VACCINE 12 YRS+, BIVALENT 0.5ML, IM, (MODERNA BOOSTER) 2022-04-08 00:00:00 Completed [facility] Influenza Virus Vaccine Quad IM, Preserv and ABX Free 6 MO-64 YRS 2022-04-08 00:00:00 Completed [facility] SARS-COV-2 COVID-19 VACCINE 12 YRS+, BIVALENT 0.5ML, IM, (MODERNA BOOSTER) 2022-04-08 00:00:00 Completed [facility] Influenza Virus Vaccine Quad IM, Preserv and ABX Free 6 MO-64 YRS 2022-04-08 00:00:00 Completed [facility] SARS-COV-2 COVID-19 VACCINE 12 YRS+, BIVALENT 0.5ML, IM, (MODERNA BOOSTER) 2022-04-08 00:00:00 Completed [facility] Influenza Virus Vaccine Quad IM, Preserv and ABX Free 6 MO-64 YRS 2022-04-08 00:00:00 Completed [facility] SARS-COV-2 COVID-19 VACCINE 12 YRS+, BIVALENT 0.5ML, IM, (MODERNA BOOSTER) 2022-04-08 00:00:00 Completed [facility] Influenza Virus Vaccine Quad IM, Preserv and ABX Free 6 MO-64 YRS 2022-04-08 00:00:00 Completed [facility] SARS-COV-2 COVID-19 VACCINE 12 YRS+, BIVALENT 0.5ML, IM, (MODERNA BOOSTER) 2022-04-08 00:00:00 Completed [facility] Influenza Virus Vaccine Quad IM, Preserv and ABX Free 6 MO-64 YRS 2022-04-08 00:00:00 Completed [facility] SARS-COV-2 COVID-19 VACCINE 12 YRS+, BIVALENT 0.5ML, IM, (MODERNA BOOSTER) 2022-04-08 00:00:00 Completed [facility] Influenza Virus Vaccine Quad IM, Preserv and ABX Free 6 MO-64 YRS 2022-04-08 00:00:00 Completed [facility] SARS-COV-2 COVID-19 VACCINE 12 YRS+, BIVALENT 0.5ML, IM, (MODERNA BOOSTER) 2022-04-08 00:00:00 Completed [facility] Influenza Virus Vaccine Quad IM, Preserv and ABX Free 6 MO-64 YRS 2022-04-08 00:00:00 Completed [facility] SARS-COV-2 COVID-19 VACCINE 12 YRS+, BIVALENT 0.5ML, IM, (MODERNA BOOSTER) 2022-04-08 00:00:00 Completed [facility] Influenza Virus Vaccine Quad IM, Preserv and ABX Free 6 MO-64 YRS 2022-04-08 00:00:00 Completed [facility] SARS-COV-2 COVID-19 VACCINE 12 YRS+, BIVALENT 0.5ML, IM, (MODERNA BOOSTER) 2022-04-08 00:00:00 Completed [facility] Influenza Virus Vaccine Quad IM, Preserv and ABX Free 6 MO-64 YRS 2022-04-08 00:00:00 Completed [facility] SARS-COV-2 COVID-19 VACCINE 12 YRS+, BIVALENT 0.5ML, IM, (MODERNA BOOSTER) 2022-04-08 00:00:00 Completed [facility] Influenza Virus Vaccine Quad IM, Preserv and ABX Free 6 MO-64 YRS 2022-04-08 00:00:00 Completed [facility] SARS-COV-2 COVID-19 VACCINE 12 YRS+, BIVALENT 0.5ML, IM, (MODERNA BOOSTER) 2022-04-08 00:00:00 Completed [facility] Influenza Virus Vaccine Quad IM, Preserv and ABX Free 6 MO-64 YRS 2022-04-08 00:00:00 Completed [facility] SARS-COV-2 COVID-19 VACCINE 12 YRS+, BIVALENT 0.5ML, IM, (MODERNA BOOSTER) 2022-04-08 00:00:00 Completed [facility] Influenza Virus Vaccine Quad IM, Preserv and ABX Free 6 MO-64 YRS 2022-04-08 00:00:00 Completed [facility] SARS-COV-2 COVID-19 VACCINE 12 YRS+, BIVALENT 0.5ML, IM, (MODERNA BOOSTER) 2022-04-08 00:00:00 Completed [facility] Influenza Virus Vaccine Quad IM, Preserv and ABX Free 6 MO-64 YRS 2022-04-08 00:00:00 Completed [facility] SARS-COV-2 COVID-19 VACCINE 12 YRS+, BIVALENT 0.5ML, IM, (MODERNA BOOSTER) 2022-04-08 00:00:00 Completed [facility] Influenza Virus Vaccine Quad IM, Preserv and ABX Free 6 MO-64 YRS 2022-04-08 00:00:00 Completed [facility] SARS-COV-2 COVID-19 VACCINE 12 YRS+, BIVALENT 0.5ML, IM, (MODERNA BOOSTER) 2022-04-08 00:00:00 Completed [facility] Influenza Virus Vaccine Quad IM, Preserv and ABX Free 6 MO-64 YRS 2022-04-08 00:00:00 Completed [facility] SARS-COV-2 COVID-19 VACCINE 12 YRS+, BIVALENT 0.5ML, IM, (MODERNA) 2022-04-08 00:00:00 Completed [facility] Influenza Virus Vaccine Quad IM, Preserv and ABX Free 6 MO-64 YRS 2022-04-08 00:00:00 Completed [facility] SARS-COV-2 COVID-19 VACCINE 12 YRS+, BIVALENT 0.5ML, IM, (MODERNA) 2022-04-08 00:00:00 Completed [facility] Influenza Virus Vaccine Quad IM, Preserv and ABX Free 6 MO-64 YRS 2022-04-08 00:00:00 Completed [facility] SARS-COV-2 COVID-19 VACCINE 12 YRS+, BIVALENT 0.5ML, IM, (MODERNA-BLUE TOP) 2022-04-08 00:00:00 Completed [facility] Influenza Virus Vaccine Quad IM, Preserv and ABX Free 6 MO-64 YRS 2022-04-08 00:00:00 Completed [facility] SARS-COV-2 COVID-19 VACCINE 12 YRS+, BIVALENT 0.5ML, IM, (MODERNA-BLUE TOP) 2022-04-08 00:00:00 Completed [facility] Influenza Virus Vaccine Quad IM, Preserv and ABX Free 6 MO-64 YRS 2022-04-08 00:00:00 Completed [facility] SARS-COV-2 COVID-19 VACCINE 12 YRS+, BIVALENT 0.5ML, IM, (MODERNA-BLUE TOP) 2022-04-08 00:00:00 Completed [facility] Influenza Virus Vaccine Quad IM, Preserv and ABX Free 6 MO-64 YRS 2022-04-08 00:00:00 Completed [facility] SARS-COV-2 COVID-19 VACCINE 12 YRS+, BIVALENT 0.5ML, IM, (MODERNA-BLUE TOP) 2022-04-08 00:00:00 Completed [facility] Influenza Virus Vaccine Quad IM, Preserv and ABX Free 6 MO-64 YRS 2022-04-08 00:00:00 Completed [facility] SARS-COV-2 COVID-19 VACCINE 12 YRS+, BIVALENT 0.5ML, IM, (MODERNA-BLUE TOP) 2022-04-08 00:00:00 Completed [facility] Influenza Virus Vaccine Quad IM, Preserv and ABX Free 6 MO-64 YRS 2022-04-08 00:00:00 Completed [facility] SARS-COV-2 COVID-19 VACCINE 12 YRS+, BIVALENT 0.5ML, IM, (MODERNA-BLUE TOP) 2022-04-08 00:00:00 Completed [facility] Influenza Virus Vaccine Quad IM, Preserv and ABX Free 6 MO-64 YRS 2022-04-08 00:00:00 Completed [facility] SARS-COV-2 COVID-19 VACCINE 12 YRS+, BIVALENT 0.5ML, IM, (MODERNA-BLUE TOP) 2022-04-08 00:00:00 Completed [facility] Influenza Virus Vaccine Quad IM, Preserv and ABX Free 6 MO-64 YRS 2022-04-08 00:00:00 Completed [facility] SARS-COV-2 COVID-19 VACCINE 12 YRS+, BIVALENT 0.5ML, IM, (MODERNA-BLUE TOP) 2022-04-08 00:00:00 Completed [facility] Influenza Virus Vaccine Quad IM, Preserv and ABX Free 6 MO-64 YRS 2022-04-08 00:00:00 Completed [facility] SARS-COV-2 COVID-19 VACCINE 12 YRS+, BIVALENT 0.5ML, IM, (MODERNA-BLUE TOP) 2022-04-08 00:00:00 Completed [facility] Influenza Virus Vaccine Quad IM, Preserv and ABX Free 6 MO-64 YRS 2022-04-08 00:00:00 Completed [facility] SARS-COV-2 COVID-19 VACCINE 12 YRS+, BIVALENT 0.5ML, IM, (MODERNA-BLUE TOP) 2022-04-08 00:00:00 Completed [facility] Influenza Virus Vaccine Quad IM, Preserv and ABX Free 6 MO-64 YRS 2022-04-08 00:00:00 Completed [facility] SARS-COV-2 COVID-19 VACCINE 12 YRS+, BIVALENT 0.5ML, IM, (MODERNA-BLUE TOP) 2022-04-08 00:00:00 Completed [facility] Influenza Virus Vaccine Quad IM, Preserv and ABX Free 6 MO-64 YRS 2022-04-08 00:00:00 Completed [facility] SARS-COV-2 COVID-19 VACCINE 12 YRS+, BIVALENT 0.5ML, IM, (MODERNA-BLUE TOP) 2022-04-08 00:00:00 Completed [facility] Influenza Virus Vaccine Quad IM, Preserv and ABX Free 6 MO-64 YRS 2022-04-08 00:00:00 Completed [facility] SARS-COV-2 COVID-19 VACCINE 12 YRS+, BIVALENT 0.5ML, IM, (MODERNA-BLUE TOP) 2022-04-08 00:00:00 Completed [facility] Influenza Virus Vaccine Quad IM, Preserv and ABX Free 6 MO-64 YRS (FLUCELVAX) 2022-04-08 00:00:00 Completed [facility] SARS-COV-2 COVID-19 VACCINE 12 YRS+, BIVALENT 0.5ML, IM, (MODERNA-BLUE TOP) 2022-04-08 00:00:00 Completed [facility] Influenza Virus Vaccine Quad IM, Preserv and ABX Free 6 MO-64 YRS (FLUCELVAX) 2022-04-08 00:00:00 Completed [facility] SARS-COV-2 COVID-19 VACCINE 12 YRS+, BIVALENT 0.5ML, IM, (MODERNA-BLUE TOP) 2022-04-08 00:00:00 Completed [facility] Influenza Virus Vaccine Quad IM, Preserv and ABX Free 6 MO-64 YRS (FLUCELVAX) 2022-04-08 00:00:00 Completed [facility] SARS-COV-2 COVID-19 VACCINE 12 YRS+, BIVALENT 0.5ML, IM, (MODERNA-BLUE TOP) 2022-04-08 00:00:00 Completed [facility] Influenza Virus Vaccine Quad IM, Preserv and ABX Free 6 MO-64 YRS (FLUCELVAX) 2022-04-08 00:00:00 Completed [facility] SARS-COV-2 COVID-19 VACCINE 12 YRS+, BIVALENT 0.5ML, IM, (MODERNA-BLUE TOP) 2022-04-08 00:00:00 Completed [facility] Influenza Virus Vaccine Quad IM, Preserv and ABX Free 6 MO-64 YRS (FLUCELVAX) 2022-04-08 00:00:00 Completed [facility] SARS-COV-2 COVID-19 VACCINE 12 YRS+, BIVALENT 0.5ML, IM, (MODERNA-BLUE TOP) 2022-04-08 00:00:00 Completed [facility] Influenza Virus Vaccine Quad IM, Preserv and ABX Free 6 MO-64 YRS (FLUCELVAX) 2022-04-08 00:00:00 Completed [facility] SARS-COV-2 COVID-19 VACCINE 12 YRS+, BIVALENT 0.5ML, IM, (MODERNA-BLUE TOP) 2022-04-08 00:00:00 Completed [facility] Influenza Virus Vaccine Quad IM, Preserv and ABX Free 6 MO-64 YRS (FLUCELVAX) 2022-04-08 00:00:00 Completed [facility] SARS-COV-2 COVID-19 VACCINE 12 YRS+, BIVALENT 0.5ML, IM, (MODERNA-BLUE TOP) 2022-04-08 00:00:00 Completed Pneumococcal 20 Conjugate, PCV20 (Prevnar 20) 2021-11-24 00:00:00 Completed [facility] Pneumococcal 20 Conjugate, PCV20 (Prevnar 20) 2021-11-24 00:00:00 Completed [facility] Pneumococcal 20 Conjugate, PCV20 (Prevnar 20) 2021-11-24 00:00:00 Completed [facility] Pneumococcal 20 Conjugate, PCV20 (Prevnar 20) 2021-11-24 00:00:00 Completed [facility] Pneumococcal 20 Conjugate, PCV20 (Prevnar 20) 2021-11-24 00:00:00 Completed [facility] Pneumococcal 20 Conjugate, PCV20 (Prevnar 20) 2021-11-24 00:00:00 Completed [facility] Pneumococcal 20 Conjugate, PCV20 (Prevnar 20) 2021-11-24 00:00:00 Completed [facility] Pneumococcal 20 Conjugate, PCV20 (Prevnar 20) 2021-11-24 00:00:00 Completed [facility] Pneumococcal 20 Conjugate, PCV20 (Prevnar 20) 2021-11-24 00:00:00 Completed [facility] Pneumococcal 20 Conjugate, PCV20 (Prevnar 20) 2021-11-24 00:00:00 Completed [facility] Pneumococcal 20 Conjugate, PCV20 (Prevnar 20) 2021-11-24 00:00:00 Completed [facility] Pneumococcal 20 Conjugate, PCV20 (Prevnar 20) 2021-11-24 00:00:00 Completed [facility] Pneumococcal 20 Conjugate, PCV20 (Prevnar 20) 2021-11-24 00:00:00 Completed [facility] Pneumococcal 20 Conjugate, PCV20 (Prevnar 20) 2021-11-24 00:00:00 Completed [facility] Pneumococcal 20 Conjugate, PCV20 (Prevnar 20) 2021-11-24 00:00:00 Completed [facility] Pneumococcal 20 Conjugate, PCV20 (Prevnar 20) 2021-11-24 00:00:00 Completed [facility] Pneumococcal 20 Conjugate, PCV20 (Prevnar 20) 2021-11-24 00:00:00 Completed [facility] Pneumococcal 20 Conjugate, PCV20 (Prevnar 20) 2021-11-24 00:00:00 Completed [facility] Pneumococcal 20 Conjugate, PCV20 (Prevnar 20) 2021-11-24 00:00:00 Completed [facility] Pneumococcal 20 Conjugate, PCV20 (Prevnar 20) 2021-11-24 00:00:00 Completed [facility] Pneumococcal 20 Conjugate, PCV20 (Prevnar 20) 2021-11-24 00:00:00 Completed [facility] Pneumococcal 20 Conjugate, PCV20 (Prevnar 20) 2021-11-24 00:00:00 Completed [facility] Pneumococcal 20 Conjugate, PCV20 (Prevnar 20) 2021-11-24 00:00:00 Completed [facility] Pneumococcal 20 Conjugate, PCV20 (Prevnar 20) 2021-11-24 00:00:00 Completed [facility] Pneumococcal 20 Conjugate, PCV20 (Prevnar 20) 2021-11-24 00:00:00 Completed [facility] Pneumococcal 20 Conjugate, PCV20 (Prevnar 20) 2021-11-24 00:00:00 Completed [facility] Pneumococcal 20 Conjugate, PCV20 (Prevnar 20) 2021-11-24 00:00:00 Completed [facility] Pneumococcal 20 Conjugate, PCV20 (Prevnar 20) 2021-11-24 00:00:00 Completed [facility] Pneumococcal 20 Conjugate, PCV20 (Prevnar 20) 2021-11-24 00:00:00 Completed [facility] Pneumococcal 20 Conjugate, PCV20 (Prevnar 20) 2021-11-24 00:00:00 Completed [facility] Pneumococcal 20 Conjugate, PCV20 (Prevnar 20) 2021-11-24 00:00:00 Completed [facility] Pneumococcal 20 Conjugate, PCV20 (Prevnar 20) 2021-11-24 00:00:00 Completed [facility] Pneumococcal 20 Conjugate, PCV20 (Prevnar 20) 2021-11-24 00:00:00 Completed [facility] Pneumococcal 20 Conjugate, PCV20 (Prevnar 20) 2021-11-24 00:00:00 Completed [facility] Pneumococcal 20 Conjugate, PCV20 (Prevnar 20) 2021-11-24 00:00:00 Completed [facility] Pneumococcal 20 Conjugate, PCV20 (Prevnar 20) 2021-11-24 00:00:00 Completed [facility] Pneumococcal 20 Conjugate, PCV20 (Prevnar 20) 2021-11-24 00:00:00 Completed [facility] Pneumococcal 20 Conjugate, PCV20 (Prevnar 20) 2021-11-24 00:00:00 Completed [facility] Pneumococcal 20 Conjugate, PCV20 (Prevnar 20) 2021-11-24 00:00:00 Completed [facility] Pneumococcal 20 Conjugate, PCV20 (Prevnar 20) 2021-11-24 00:00:00 Completed [facility] Pneumococcal 20 Conjugate, PCV20 (Prevnar 20) 2021-11-24 00:00:00 Completed [facility] Pneumococcal 20 Conjugate, PCV20 (Prevnar 20) 2021-11-24 00:00:00 Completed [facility] Pneumococcal 20 Conjugate, PCV20 (Prevnar 20) 2021-11-24 00:00:00 Completed [facility] Pneumococcal 20 Conjugate, PCV20 (Prevnar 20) 2021-11-24 00:00:00 Completed [facility] Pneumococcal 20 Conjugate, PCV20 (Prevnar 20) 2021-11-24 00:00:00 Completed [facility] Pneumococcal 20 Conjugate, PCV20 (Prevnar 20) 2021-11-24 00:00:00 Completed [facility] Pneumococcal 20 Conjugate, PCV20 (Prevnar 20) 2021-11-24 00:00:00 Completed [facility] Pneumococcal 20 Conjugate, PCV20 (Prevnar 20) 2021-11-24 00:00:00 Completed [facility] Pneumococcal 20 Conjugate, PCV20 (Prevnar 20) 2021-11-24 00:00:00 Completed [facility] Pneumococcal 20 Conjugate, PCV20 (Prevnar 20) 2021-11-24 00:00:00 Completed [facility] Pneumococcal 20 Conjugate, PCV20 (Prevnar 20) 2021-11-24 00:00:00 Completed [facility] Pneumococcal 20 Conjugate, PCV20 (Prevnar 20) 2021-11-24 00:00:00 Completed [facility] Pneumococcal 20 Conjugate, PCV20 (Prevnar 20) 2021-11-24 00:00:00 Completed [facility] Pneumococcal 20 Conjugate, PCV20 (Prevnar 20) 2021-11-24 00:00:00 Completed [facility] Pneumococcal 20 Conjugate, PCV20 (Prevnar 20) 2021-11-24 00:00:00 Completed [facility] Pneumococcal 20 Conjugate, PCV20 (Prevnar 20) 2021-11-24 00:00:00 Completed [facility] Pneumococcal 20 Conjugate, PCV20 (Prevnar 20) 2021-11-24 00:00:00 Completed [facility] Pneumococcal 20 Conjugate, PCV20 (Prevnar 20) 2021-11-24 00:00:00 Completed [facility] Pneumococcal 20 Conjugate, PCV20 (Prevnar 20) 2021-11-24 00:00:00 Completed [facility] Pneumococcal 20 Conjugate, PCV20 (Prevnar 20) 2021-11-24 00:00:00 Completed [facility] Pneumococcal 20 Conjugate, PCV20 (Prevnar 20) 2021-11-24 00:00:00 Completed [facility] Pneumococcal 20 Conjugate, PCV20 (Prevnar 20) 2021-11-24 00:00:00 Completed SARS-COV-2 COVID-19 MODERNA 12+ YRS VACCINE 2021-05-11 00:00:00 Completed [facility] SARS-COV-2 COVID-19 MODERNA 12+ YRS VACCINE 2021-05-11 00:00:00 Completed [facility] SARS-COV-2 COVID-19 MODERNA 12+ YRS VACCINE 2021-05-11 00:00:00 Completed [facility] SARS-COV-2 COVID-19 MODERNA 12+ YRS VACCINE 2021-05-11 00:00:00 Completed [facility] SARS-COV-2 COVID-19 MODERNA 12+ YRS VACCINE 2021-05-11 00:00:00 Completed [facility] SARS-COV-2 COVID-19 MODERNA 12+ YRS VACCINE 2021-05-11 00:00:00 Completed [facility] SARS-COV-2 COVID-19 MODERNA 12+ YRS VACCINE 2021-05-11 00:00:00 Completed [facility] SARS-COV-2 COVID-19 MODERNA 12+ YRS VACCINE 2021-05-11 00:00:00 Completed [facility] SARS-COV-2 COVID-19 MODERNA 12+ YRS VACCINE 2021-05-11 00:00:00 Completed [facility] SARS-COV-2 COVID-19 MODERNA 12+ YRS VACCINE 2021-05-11 00:00:00 Completed [facility] SARS-COV-2 COVID-19 MODERNA 12+ YRS VACCINE 2021-05-11 00:00:00 Completed [facility] SARS-COV-2 COVID-19 MODERNA 12+ YRS VACCINE 2021-05-11 00:00:00 Completed [facility] SARS-COV-2 COVID-19 MODERNA 12+ YRS VACCINE 2021-05-11 00:00:00 Completed [facility] SARS-COV-2 COVID-19 MODERNA 12+ YRS VACCINE 2021-05-11 00:00:00 Completed [facility] SARS-COV-2 COVID-19 MODERNA 12+ YRS VACCINE 2021-05-11 00:00:00 Completed [facility] SARS-COV-2 COVID-19 MODERNA 12+ YRS VACCINE 2021-05-11 00:00:00 Completed [facility] SARS-COV-2 COVID-19 MODERNA 12+ YRS VACCINE 2021-05-11 00:00:00 Completed [facility] SARS-COV-2 COVID-19 MODERNA 12+ YRS VACCINE 2021-05-11 00:00:00 Completed [facility] SARS-COV-2 COVID-19 MODERNA 12+ YRS VACCINE 2021-05-11 00:00:00 Completed [facility] SARS-COV-2 COVID-19 MODERNA 12+ YRS VACCINE 2021-05-11 00:00:00 Completed [facility] SARS-COV-2 COVID-19 MODERNA 12+ YRS VACCINE 2021-05-11 00:00:00 Completed [facility] SARS-COV-2 COVID-19 MODERNA 12+ YRS VACCINE 2021-05-11 00:00:00 Completed [facility] SARS-COV-2 COVID-19 MODERNA 12+ YRS VACCINE 2021-05-11 00:00:00 Completed [facility] SARS-COV-2 COVID-19 MODERNA 12+ YRS VACCINE 2021-05-11 00:00:00 Completed [facility] SARS-COV-2 COVID-19 MODERNA 12+ YRS VACCINE 2021-05-11 00:00:00 Completed [facility] SARS-COV-2 COVID-19 MODERNA 12+ YRS VACCINE 2021-05-11 00:00:00 Completed [facility] SARS-COV-2 COVID-19 MODERNA 12+ YRS VACCINE 2021-05-11 00:00:00 Completed [facility] SARS-COV-2 COVID-19 MODERNA 12+ YRS VACCINE 2021-05-11 00:00:00 Completed [facility] SARS-COV-2 COVID-19 MODERNA 12+ YRS VACCINE 2021-05-11 00:00:00 Completed [facility] SARS-COV-2 COVID-19 MODERNA 12+ YRS VACCINE 2021-05-11 00:00:00 Completed [facility] SARS-COV-2 COVID-19 MODERNA 12+ YRS VACCINE 2021-05-11 00:00:00 Completed [facility] SARS-COV-2 COVID-19 MODERNA 12+ YRS VACCINE 2021-05-11 00:00:00 Completed [facility] SARS-COV-2 COVID-19 MODERNA 12+ YRS VACCINE 2021-05-11 00:00:00 Completed [facility] SARS-COV-2 COVID-19 MODERNA 12+ YRS VACCINE 2021-05-11 00:00:00 Completed [facility] SARS-COV-2 COVID-19 MODERNA 12+ YRS VACCINE 2021-05-11 00:00:00 Completed [facility] SARS-COV-2 COVID-19 MODERNA 12+ YRS VACCINE 2021-05-11 00:00:00 Completed [facility] SARS-COV-2 COVID-19 MODERNA 12+ YRS VACCINE 2021-05-11 00:00:00 Completed [facility] SARS-COV-2 COVID-19 MODERNA 12+ YRS VACCINE 2021-05-11 00:00:00 Completed [facility] SARS-COV-2 COVID-19 MODERNA 12+ YRS VACCINE 2021-05-11 00:00:00 Completed [facility] SARS-COV-2 COVID-19 MODERNA 12+ YRS VACCINE 2021-05-11 00:00:00 Completed [facility] SARS-COV-2 COVID-19 MODERNA 12+ YRS VACCINE 2021-05-11 00:00:00 Completed [facility] SARS-COV-2 COVID-19 MODERNA 12+ YRS VACCINE 2021-05-11 00:00:00 Completed [facility] SARS-COV-2 COVID-19 MODERNA 12+ YRS VACCINE 2021-05-11 00:00:00 Completed [facility] SARS-COV-2 COVID-19 MODERNA 12+ YRS VACCINE 2021-05-11 00:00:00 Completed [facility] SARS-COV-2 COVID-19 MODERNA 12+ YRS VACCINE 2021-05-11 00:00:00 Completed [facility] SARS-COV-2 COVID-19 MODERNA 12+ YRS VACCINE 2021-05-11 00:00:00 Completed [facility] SARS-COV-2 COVID-19 MODERNA 12+ YRS VACCINE 2021-05-11 00:00:00 Completed [facility] SARS-COV-2 COVID-19 MODERNA 12+ YRS VACCINE 2021-05-11 00:00:00 Completed [facility] SARS-COV-2 COVID-19 MODERNA 12+ YRS VACCINE 2021-05-11 00:00:00 Completed [facility] SARS-COV-2 COVID-19 MODERNA 12+ YRS VACCINE 2021-05-11 00:00:00 Completed [facility] SARS-COV-2 COVID-19 MODERNA 12+ YRS VACCINE 2021-05-11 00:00:00 Completed [facility] SARS-COV-2 COVID-19 MODERNA 12+ YRS VACCINE 2021-05-11 00:00:00 Completed [facility] SARS-COV-2 COVID-19 MODERNA 12+ YRS VACCINE 2021-05-11 00:00:00 Completed [facility] SARS-COV-2 COVID-19 MODERNA 12+ YRS VACCINE 2021-05-11 00:00:00 Completed [facility] SARS-COV-2 COVID-19 MODERNA 12+ YRS VACCINE 2021-05-11 00:00:00 Completed [facility] SARS-COV-2 COVID-19 MODERNA 12+ YRS VACCINE 2021-05-11 00:00:00 Completed [facility] SARS-COV-2 COVID-19 MODERNA 12+ YRS VACCINE 2021-05-11 00:00:00 Completed [facility] SARS-COV-2 COVID-19 MODERNA 12+ YRS VACCINE 2021-05-11 00:00:00 Completed [facility] SARS-COV-2 COVID-19 MODERNA 12+ YRS VACCINE 2021-05-11 00:00:00 Completed [facility] SARS-COV-2 COVID-19 MODERNA 12+ YRS VACCINE 2021-05-11 00:00:00 Completed [facility] SARS-COV-2 COVID-19 MODERNA 12+ YRS VACCINE 2021-05-11 00:00:00 Completed [facility] SARS-COV-2 COVID-19 MODERNA 12+ YRS VACCINE 2021-05-11 00:00:00 Completed [facility] Influenza Virus Vaccine - Whole 2021-04-29 00:00:00 Completed [facility] Influenza Virus Vaccine - Whole 2021-04-29 00:00:00 Completed [facility] Influenza Virus Vaccine - Whole 2021-04-29 00:00:00 Completed [facility] Influenza Virus Vaccine - Whole 2021-04-29 00:00:00 Completed [facility] Influenza Virus Vaccine - Whole 2021-04-29 00:00:00 Completed [facility] Influenza Virus Vaccine - Whole 2021-04-29 00:00:00 Completed [facility] Influenza Virus Vaccine - Whole 2021-04-29 00:00:00 Completed [facility] Influenza Virus Vaccine - Whole 2021-04-29 00:00:00 Completed [facility] Influenza Virus Vaccine - Whole 2021-04-29 00:00:00 Completed [facility] Influenza Virus Vaccine - Whole 2021-04-29 00:00:00 Completed [facility] Influenza Virus Vaccine - Whole 2021-04-29 00:00:00 Completed [facility] Influenza Virus Vaccine - Whole 2021-04-29 00:00:00 Completed [facility] Influenza Virus Vaccine - Whole 2021-04-29 00:00:00 Completed [facility] Influenza Virus Vaccine - Whole 2021-04-29 00:00:00 Completed [facility] Influenza Virus Vaccine - Whole 2021-04-29 00:00:00 Completed [facility] Influenza Virus Vaccine - Whole 2021-04-29 00:00:00 Completed [facility] Influenza Virus Vaccine - Whole 2021-04-29 00:00:00 Completed [facility] Influenza Virus Vaccine - Whole 2021-04-29 00:00:00 Completed [facility] Influenza Virus Vaccine - Whole 2021-04-29 00:00:00 Completed [facility] Influenza Virus Vaccine 2021-04-22 00:00:00 Completed [facility] Influenza Virus Vaccine 2021-04-22 00:00:00 Completed [facility] Influenza Virus Vaccine 2021-04-22 00:00:00 Completed [facility] Influenza Virus Vaccine 2021-04-22 00:00:00 Completed [facility] Influenza Virus Vaccine 2021-04-22 00:00:00 Completed [facility] Influenza Virus Vaccine 2021-04-22 00:00:00 Completed [facility] Influenza Virus Vaccine 2021-04-22 00:00:00 Completed [facility] Influenza Virus Vaccine 2021-04-22 00:00:00 Completed [facility] Influenza Virus Vaccine 2021-04-22 00:00:00 Completed [facility] Influenza Virus Vaccine 2021-04-22 00:00:00 Completed [facility] Influenza Virus Vaccine 2021-04-22 00:00:00 Completed [facility] Influenza Virus Vaccine 2021-04-22 00:00:00 Completed [facility] Influenza Virus Vaccine 2021-04-22 00:00:00 Completed [facility] Influenza Virus Vaccine 2021-04-22 00:00:00 Completed [facility] Influenza Virus Vaccine 2021-04-22 00:00:00 Completed [facility] Influenza Virus Vaccine 2021-04-22 00:00:00 Completed [facility] Influenza Virus Vaccine 2021-04-22 00:00:00 Completed [facility] Influenza Virus Vaccine 2021-04-22 00:00:00 Completed [facility] Influenza Virus Vaccine 2021-04-22 00:00:00 Completed [facility] Influenza Virus Vaccine 2021-04-22 00:00:00 Completed [facility] Influenza Virus Vaccine 2021-04-22 00:00:00 Completed [facility] Influenza Virus Vaccine 2021-04-22 00:00:00 Completed [facility] Influenza Virus Vaccine 2021-04-22 00:00:00 Completed [facility] Influenza Virus Vaccine 2021-04-22 00:00:00 Completed [facility] Influenza Virus Vaccine 2021-04-22 00:00:00 Completed [facility] Influenza Virus Vaccine 2021-04-22 00:00:00 Completed [facility] Influenza Virus Vaccine 2021-04-22 00:00:00 Completed [facility] Influenza Virus Vaccine 2021-04-22 00:00:00 Completed [facility] Influenza Virus Vaccine 2021-04-22 00:00:00 Completed [facility] Influenza Virus Vaccine 2021-04-22 00:00:00 Completed [facility] Influenza Virus Vaccine 2021-04-22 00:00:00 Completed [facility] Influenza Virus Vaccine 2021-04-22 00:00:00 Completed [facility] Influenza Virus Vaccine 2021-04-22 00:00:00 Completed [facility] Influenza Virus Vaccine 2021-04-22 00:00:00 Completed [facility] Influenza Virus Vaccine 2021-04-22 00:00:00 Completed [facility] Influenza Virus Vaccine 2021-04-22 00:00:00 Completed [facility] Influenza Virus Vaccine 2021-04-22 00:00:00 Completed [facility] Influenza Virus Vaccine 2021-04-22 00:00:00 Completed [facility] Influenza Virus Vaccine 2021-04-22 00:00:00 Completed [facility] Influenza Virus Vaccine 2021-04-22 00:00:00 Completed [facility] Influenza Virus Vaccine 2021-04-22 00:00:00 Completed [facility] Influenza Virus Vaccine 2021-04-22 00:00:00 Completed [facility] Influenza Virus Vaccine 2021-04-22 00:00:00 Completed [facility] Influenza Virus Vaccine 2021-04-22 00:00:00 Completed [facility] Influenza Virus Vaccine 2021-04-22 00:00:00 Completed [facility] Influenza Virus Vaccine 2021-04-22 00:00:00 Completed [facility] Influenza Virus Vaccine 2021-04-22 00:00:00 Completed [facility] Influenza Virus Vaccine 2021-04-22 00:00:00 Completed [facility] Influenza Virus Vaccine 2021-04-22 00:00:00 Completed [facility] Influenza Virus Vaccine 2021-04-22 00:00:00 Completed [facility] Influenza Virus Vaccine 2021-04-22 00:00:00 Completed [facility] Influenza Virus Vaccine 2021-04-22 00:00:00 Completed [facility] Influenza Virus Vaccine 2021-04-22 00:00:00 Completed [facility] Influenza Virus Vaccine 2021-04-22 00:00:00 Completed [facility] Influenza Virus Vaccine 2021-04-22 00:00:00 Completed [facility] Influenza Virus Vaccine 2021-04-22 00:00:00 Completed [facility] Influenza Virus Vaccine 2021-04-22 00:00:00 Completed [facility] Influenza Virus Vaccine 2021-04-22 00:00:00 Completed [facility] Influenza Virus Vaccine 2021-04-22 00:00:00 Completed [facility] Influenza Virus Vaccine 2021-04-22 00:00:00 Completed [facility] Influenza Virus Vaccine 2021-04-22 00:00:00 Completed [facility] Influenza Virus Vaccine 2021-04-22 00:00:00 Completed SARS-COV-2 COVID-19 MODERNA 12+ YRS VACCINE 2020-11-05 00:00:00 Completed [facility] SARS-COV-2 COVID-19 MODERNA 12+ YRS VACCINE 2020-11-05 00:00:00 Completed [facility] SARS-COV-2 COVID-19 MODERNA 12+ YRS VACCINE 2020-11-05 00:00:00 Completed [facility] SARS-COV-2 COVID-19 MODERNA 12+ YRS VACCINE 2020-11-05 00:00:00 Completed [facility] SARS-COV-2 COVID-19 MODERNA 12+ YRS VACCINE 2020-11-05 00:00:00 Completed [facility] SARS-COV-2 COVID-19 MODERNA 12+ YRS VACCINE 2020-11-05 00:00:00 Completed [facility] SARS-COV-2 COVID-19 MODERNA 12+ YRS VACCINE 2020-11-05 00:00:00 Completed [facility] SARS-COV-2 COVID-19 MODERNA 12+ YRS VACCINE 2020-11-05 00:00:00 Completed [facility] SARS-COV-2 COVID-19 MODERNA 12+ YRS VACCINE 2020-11-05 00:00:00 Completed [facility] SARS-COV-2 COVID-19 MODERNA 12+ YRS VACCINE 2020-11-05 00:00:00 Completed [facility] SARS-COV-2 COVID-19 MODERNA 12+ YRS VACCINE 2020-11-05 00:00:00 Completed [facility] SARS-COV-2 COVID-19 MODERNA 12+ YRS VACCINE 2020-11-05 00:00:00 Completed [facility] SARS-COV-2 COVID-19 MODERNA 12+ YRS VACCINE 2020-11-05 00:00:00 Completed [facility] SARS-COV-2 COVID-19 MODERNA 12+ YRS VACCINE 2020-11-05 00:00:00 Completed [facility] SARS-COV-2 COVID-19 MODERNA 12+ YRS VACCINE 2020-11-05 00:00:00 Completed [facility] SARS-COV-2 COVID-19 MODERNA 12+ YRS VACCINE 2020-11-05 00:00:00 Completed [facility] SARS-COV-2 COVID-19 MODERNA 12+ YRS VACCINE 2020-11-05 00:00:00 Completed [facility] SARS-COV-2 COVID-19 MODERNA 12+ YRS VACCINE 2020-11-05 00:00:00 Completed [facility] SARS-COV-2 COVID-19 MODERNA 12+ YRS VACCINE 2020-11-05 00:00:00 Completed [facility] SARS-COV-2 COVID-19 MODERNA 12+ YRS VACCINE 2020-11-05 00:00:00 Completed [facility] SARS-COV-2 COVID-19 MODERNA 12+ YRS VACCINE 2020-11-05 00:00:00 Completed [facility] SARS-COV-2 COVID-19 MODERNA 12+ YRS VACCINE 2020-11-05 00:00:00 Completed [facility] SARS-COV-2 COVID-19 MODERNA 12+ YRS VACCINE 2020-11-05 00:00:00 Completed [facility] SARS-COV-2 COVID-19 MODERNA 12+ YRS VACCINE 2020-11-05 00:00:00 Completed [facility] SARS-COV-2 COVID-19 MODERNA 12+ YRS VACCINE 2020-11-05 00:00:00 Completed [facility] SARS-COV-2 COVID-19 MODERNA 12+ YRS VACCINE 2020-11-05 00:00:00 Completed [facility] SARS-COV-2 COVID-19 MODERNA 12+ YRS VACCINE 2020-11-05 00:00:00 Completed [facility] SARS-COV-2 COVID-19 MODERNA 12+ YRS VACCINE 2020-11-05 00:00:00 Completed [facility] SARS-COV-2 COVID-19 MODERNA 12+ YRS VACCINE 2020-11-05 00:00:00 Completed [facility] SARS-COV-2 COVID-19 MODERNA 12+ YRS VACCINE 2020-11-05 00:00:00 Completed [facility] SARS-COV-2 COVID-19 MODERNA 12+ YRS VACCINE 2020-11-05 00:00:00 Completed [facility] SARS-COV-2 COVID-19 MODERNA 12+ YRS VACCINE 2020-11-05 00:00:00 Completed [facility] SARS-COV-2 COVID-19 MODERNA 12+ YRS VACCINE 2020-11-05 00:00:00 Completed [facility] SARS-COV-2 COVID-19 MODERNA 12+ YRS VACCINE 2020-11-05 00:00:00 Completed [facility] SARS-COV-2 COVID-19 MODERNA 12+ YRS VACCINE 2020-11-05 00:00:00 Completed [facility] SARS-COV-2 COVID-19 MODERNA 12+ YRS VACCINE 2020-11-05 00:00:00 Completed [facility] SARS-COV-2 COVID-19 MODERNA 12+ YRS VACCINE 2020-11-05 00:00:00 Completed [facility] SARS-COV-2 COVID-19 MODERNA 12+ YRS VACCINE 2020-11-05 00:00:00 Completed [facility] SARS-COV-2 COVID-19 MODERNA 12+ YRS VACCINE 2020-11-05 00:00:00 Completed [facility] SARS-COV-2 COVID-19 MODERNA 12+ YRS VACCINE 2020-11-05 00:00:00 Completed [facility] SARS-COV-2 COVID-19 MODERNA 12+ YRS VACCINE 2020-11-05 00:00:00 Completed [facility] SARS-COV-2 COVID-19 MODERNA 12+ YRS VACCINE 2020-11-05 00:00:00 Completed [facility] SARS-COV-2 COVID-19 MODERNA 12+ YRS VACCINE 2020-11-05 00:00:00 Completed [facility] SARS-COV-2 COVID-19 MODERNA 12+ YRS VACCINE 2020-11-05 00:00:00 Completed [facility] SARS-COV-2 COVID-19 MODERNA 12+ YRS VACCINE 2020-11-05 00:00:00 Completed [facility] SARS-COV-2 COVID-19 MODERNA 12+ YRS VACCINE 2020-11-05 00:00:00 Completed [facility] SARS-COV-2 COVID-19 MODERNA 12+ YRS VACCINE 2020-11-05 00:00:00 Completed [facility] SARS-COV-2 COVID-19 MODERNA 12+ YRS VACCINE 2020-11-05 00:00:00 Completed [facility] SARS-COV-2 COVID-19 MODERNA 12+ YRS VACCINE 2020-11-05 00:00:00 Completed [facility] SARS-COV-2 COVID-19 MODERNA 12+ YRS VACCINE 2020-11-05 00:00:00 Completed [facility] SARS-COV-2 COVID-19 MODERNA 12+ YRS VACCINE 2020-11-05 00:00:00 Completed [facility] SARS-COV-2 COVID-19 MODERNA 12+ YRS VACCINE 2020-11-05 00:00:00 Completed [facility] SARS-COV-2 COVID-19 MODERNA 12+ YRS VACCINE 2020-11-05 00:00:00 Completed [facility] SARS-COV-2 COVID-19 MODERNA 12+ YRS VACCINE 2020-11-05 00:00:00 Completed [facility] SARS-COV-2 COVID-19 MODERNA 12+ YRS VACCINE 2020-11-05 00:00:00 Completed [facility] SARS-COV-2 COVID-19 MODERNA 12+ YRS VACCINE 2020-11-05 00:00:00 Completed [facility] SARS-COV-2 COVID-19 MODERNA 12+ YRS VACCINE 2020-11-05 00:00:00 Completed [facility] SARS-COV-2 COVID-19 MODERNA 12+ YRS VACCINE 2020-11-05 00:00:00 Completed [facility] SARS-COV-2 COVID-19 MODERNA 12+ YRS VACCINE 2020-11-05 00:00:00 Completed [facility] SARS-COV-2 COVID-19 MODERNA 12+ YRS VACCINE 2020-11-05 00:00:00 Completed [facility] SARS-COV-2 COVID-19 MODERNA 12+ YRS VACCINE 2020-11-05 00:00:00 Completed [facility] SARS-COV-2 COVID-19 MODERNA 12+ YRS VACCINE 2020-11-05 00:00:00 Completed SARS-COV-2 COVID-19 MODERNA 12+ YRS VACCINE 2020-10-08 00:00:00 Completed [facility] SARS-COV-2 COVID-19 MODERNA 12+ YRS VACCINE 2020-10-08 00:00:00 Completed [facility] SARS-COV-2 COVID-19 MODERNA 12+ YRS VACCINE 2020-10-08 00:00:00 Completed [facility] SARS-COV-2 COVID-19 MODERNA 12+ YRS VACCINE 2020-10-08 00:00:00 Completed [facility] SARS-COV-2 COVID-19 MODERNA 12+ YRS VACCINE 2020-10-08 00:00:00 Completed [facility] SARS-COV-2 COVID-19 MODERNA 12+ YRS VACCINE 2020-10-08 00:00:00 Completed [facility] SARS-COV-2 COVID-19 MODERNA 12+ YRS VACCINE 2020-10-08 00:00:00 Completed [facility] SARS-COV-2 COVID-19 MODERNA 12+ YRS VACCINE 2020-10-08 00:00:00 Completed [facility] SARS-COV-2 COVID-19 MODERNA 12+ YRS VACCINE 2020-10-08 00:00:00 Completed [facility] SARS-COV-2 COVID-19 MODERNA 12+ YRS VACCINE 2020-10-08 00:00:00 Completed [facility] SARS-COV-2 COVID-19 MODERNA 12+ YRS VACCINE 2020-10-08 00:00:00 Completed [facility] SARS-COV-2 COVID-19 MODERNA 12+ YRS VACCINE 2020-10-08 00:00:00 Completed [facility] SARS-COV-2 COVID-19 MODERNA 12+ YRS VACCINE 2020-10-08 00:00:00 Completed [facility] SARS-COV-2 COVID-19 MODERNA 12+ YRS VACCINE 2020-10-08 00:00:00 Completed [facility] SARS-COV-2 COVID-19 MODERNA 12+ YRS VACCINE 2020-10-08 00:00:00 Completed [facility] SARS-COV-2 COVID-19 MODERNA 12+ YRS VACCINE 2020-10-08 00:00:00 Completed [facility] SARS-COV-2 COVID-19 MODERNA 12+ YRS VACCINE 2020-10-08 00:00:00 Completed [facility] SARS-COV-2 COVID-19 MODERNA 12+ YRS VACCINE 2020-10-08 00:00:00 Completed [facility] SARS-COV-2 COVID-19 MODERNA 12+ YRS VACCINE 2020-10-08 00:00:00 Completed [facility] SARS-COV-2 COVID-19 MODERNA 12+ YRS VACCINE 2020-10-08 00:00:00 Completed [facility] SARS-COV-2 COVID-19 MODERNA 12+ YRS VACCINE 2020-10-08 00:00:00 Completed [facility] SARS-COV-2 COVID-19 MODERNA 12+ YRS VACCINE 2020-10-08 00:00:00 Completed [facility] SARS-COV-2 COVID-19 MODERNA 12+ YRS VACCINE 2020-10-08 00:00:00 Completed [facility] SARS-COV-2 COVID-19 MODERNA 12+ YRS VACCINE 2020-10-08 00:00:00 Completed [facility] SARS-COV-2 COVID-19 MODERNA 12+ YRS VACCINE 2020-10-08 00:00:00 Completed [facility] SARS-COV-2 COVID-19 MODERNA 12+ YRS VACCINE 2020-10-08 00:00:00 Completed [facility] SARS-COV-2 COVID-19 MODERNA 12+ YRS VACCINE 2020-10-08 00:00:00 Completed [facility] SARS-COV-2 COVID-19 MODERNA 12+ YRS VACCINE 2020-10-08 00:00:00 Completed [facility] SARS-COV-2 COVID-19 MODERNA 12+ YRS VACCINE 2020-10-08 00:00:00 Completed [facility] SARS-COV-2 COVID-19 MODERNA 12+ YRS VACCINE 2020-10-08 00:00:00 Completed [facility] SARS-COV-2 COVID-19 MODERNA 12+ YRS VACCINE 2020-10-08 00:00:00 Completed [facility] SARS-COV-2 COVID-19 MODERNA 12+ YRS VACCINE 2020-10-08 00:00:00 Completed [facility] SARS-COV-2 COVID-19 MODERNA 12+ YRS VACCINE 2020-10-08 00:00:00 Completed [facility] SARS-COV-2 COVID-19 MODERNA 12+ YRS VACCINE 2020-10-08 00:00:00 Completed [facility] SARS-COV-2 COVID-19 MODERNA 12+ YRS VACCINE 2020-10-08 00:00:00 Completed [facility] SARS-COV-2 COVID-19 MODERNA 12+ YRS VACCINE 2020-10-08 00:00:00 Completed [facility] SARS-COV-2 COVID-19 MODERNA 12+ YRS VACCINE 2020-10-08 00:00:00 Completed [facility] SARS-COV-2 COVID-19 MODERNA 12+ YRS VACCINE 2020-10-08 00:00:00 Completed [facility] SARS-COV-2 COVID-19 MODERNA 12+ YRS VACCINE 2020-10-08 00:00:00 Completed [facility] SARS-COV-2 COVID-19 MODERNA 12+ YRS VACCINE 2020-10-08 00:00:00 Completed [facility] SARS-COV-2 COVID-19 MODERNA 12+ YRS VACCINE 2020-10-08 00:00:00 Completed [facility] SARS-COV-2 COVID-19 MODERNA 12+ YRS VACCINE 2020-10-08 00:00:00 Completed [facility] SARS-COV-2 COVID-19 MODERNA 12+ YRS VACCINE 2020-10-08 00:00:00 Completed [facility] SARS-COV-2 COVID-19 MODERNA 12+ YRS VACCINE 2020-10-08 00:00:00 Completed [facility] SARS-COV-2 COVID-19 MODERNA 12+ YRS VACCINE 2020-10-08 00:00:00 Completed [facility] SARS-COV-2 COVID-19 MODERNA 12+ YRS VACCINE 2020-10-08 00:00:00 Completed [facility] SARS-COV-2 COVID-19 MODERNA 12+ YRS VACCINE 2020-10-08 00:00:00 Completed [facility] SARS-COV-2 COVID-19 MODERNA 12+ YRS VACCINE 2020-10-08 00:00:00 Completed [facility] SARS-COV-2 COVID-19 MODERNA 12+ YRS VACCINE 2020-10-08 00:00:00 Completed [facility] SARS-COV-2 COVID-19 MODERNA 12+ YRS VACCINE 2020-10-08 00:00:00 Completed [facility] SARS-COV-2 COVID-19 MODERNA 12+ YRS VACCINE 2020-10-08 00:00:00 Completed [facility] SARS-COV-2 COVID-19 MODERNA 12+ YRS VACCINE 2020-10-08 00:00:00 Completed [facility] SARS-COV-2 COVID-19 MODERNA 12+ YRS VACCINE 2020-10-08 00:00:00 Completed [facility] SARS-COV-2 COVID-19 MODERNA 12+ YRS VACCINE 2020-10-08 00:00:00 Completed [facility] SARS-COV-2 COVID-19 MODERNA 12+ YRS VACCINE 2020-10-08 00:00:00 Completed [facility] SARS-COV-2 COVID-19 MODERNA 12+ YRS VACCINE 2020-10-08 00:00:00 Completed [facility] SARS-COV-2 COVID-19 MODERNA 12+ YRS VACCINE 2020-10-08 00:00:00 Completed [facility] SARS-COV-2 COVID-19 MODERNA 12+ YRS VACCINE 2020-10-08 00:00:00 Completed [facility] SARS-COV-2 COVID-19 MODERNA 12+ YRS VACCINE 2020-10-08 00:00:00 Completed [facility] SARS-COV-2 COVID-19 MODERNA 12+ YRS VACCINE 2020-10-08 00:00:00 Completed [facility] SARS-COV-2 COVID-19 MODERNA 12+ YRS VACCINE 2020-10-08 00:00:00 Completed [facility] SARS-COV-2 COVID-19 MODERNA 12+ YRS VACCINE 2020-10-08 00:00:00 Completed Zoster Vaccine Recombinant 2018-12-28 00:00:00 Completed [facility] Zoster Vaccine Recombinant 2018-12-28 00:00:00 Completed [facility] Zoster Vaccine Recombinant 2018-12-28 00:00:00 Completed [facility] Zoster Vaccine Recombinant 2018-12-28 00:00:00 Completed [facility] Zoster Vaccine Recombinant 2018-12-28 00:00:00 Completed [facility] Zoster Vaccine Recombinant 2018-12-28 00:00:00 Completed [facility] Zoster Vaccine Recombinant 2018-12-28 00:00:00 Completed [facility] Zoster Vaccine Recombinant 2018-12-28 00:00:00 Completed [facility] Zoster Vaccine Recombinant 2018-12-28 00:00:00 Completed [facility] Zoster Vaccine Recombinant 2018-12-28 00:00:00 Completed [facility] Zoster Vaccine Recombinant 2018-12-28 00:00:00 Completed [facility] Zoster Vaccine Recombinant 2018-12-28 00:00:00 Completed [facility] Zoster Vaccine Recombinant 2018-12-28 00:00:00 Completed [facility] Zoster Vaccine Recombinant 2018-12-28 00:00:00 Completed [facility] Zoster Vaccine Recombinant 2018-12-28 00:00:00 Completed [facility] Zoster Vaccine Recombinant 2018-12-28 00:00:00 Completed [facility] Zoster Vaccine Recombinant 2018-12-28 00:00:00 Completed [facility] Zoster Vaccine Recombinant 2018-12-28 00:00:00 Completed [facility] Zoster Vaccine Recombinant 2018-12-28 00:00:00 Completed Zoster Vaccine Recombinant 2018-10-29 00:00:00 Completed [facility] Zoster Vaccine Recombinant 2018-10-29 00:00:00 Completed [facility] Zoster Vaccine Recombinant 2018-10-29 00:00:00 Completed [facility] Zoster Vaccine Recombinant 2018-10-29 00:00:00 Completed [facility] Zoster Vaccine Recombinant 2018-10-29 00:00:00 Completed [facility] Zoster Vaccine Recombinant 2018-10-29 00:00:00 Completed [facility] Zoster Vaccine Recombinant 2018-10-29 00:00:00 Completed [facility] Zoster Vaccine Recombinant 2018-10-29 00:00:00 Completed [facility] Zoster Vaccine Recombinant 2018-10-29 00:00:00 Completed [facility] Zoster Vaccine Recombinant 2018-10-29 00:00:00 Completed [facility] Zoster Vaccine Recombinant 2018-10-29 00:00:00 Completed [facility] Zoster Vaccine Recombinant 2018-10-29 00:00:00 Completed [facility] Zoster Vaccine Recombinant 2018-10-29 00:00:00 Completed [facility] Zoster Vaccine Recombinant 2018-10-29 00:00:00 Completed [facility] Zoster Vaccine Recombinant 2018-10-29 00:00:00 Completed [facility] Zoster Vaccine Recombinant 2018-10-29 00:00:00 Completed [facility] Zoster Vaccine Recombinant 2018-10-29 00:00:00 Completed [facility] Zoster Vaccine Recombinant 2018-10-29 00:00:00 Completed [facility] Zoster Vaccine Recombinant 2018-10-29 00:00:00 Completed DT/Tetanus 2014-01-29 00:00:00 Completed [facility] DT/Tetanus 2014-01-29 00:00:00 Completed [facility] DT/Tetanus 2014-01-29 00:00:00 Completed [facility] DT/Tetanus 2014-01-29 00:00:00 Completed [facility] DT/Tetanus 2014-01-29 00:00:00 Completed [facility] DT/Tetanus 2014-01-29 00:00:00 Completed [facility] DT/Tetanus 2014-01-29 00:00:00 Completed [facility] DT/Tetanus 2014-01-29 00:00:00 Completed [facility] DT/Tetanus 2014-01-29 00:00:00 Completed [facility] DT/Tetanus 2014-01-29 00:00:00 Completed [facility] DT/Tetanus 2014-01-29 00:00:00 Completed [facility] DT/Tetanus 2014-01-29 00:00:00 Completed [facility] DT/Tetanus 2014-01-29 00:00:00 Completed [facility] DT/Tetanus 2014-01-29 00:00:00 Completed [facility] DT/Tetanus 2014-01-29 00:00:00 Completed [facility] DT/Tetanus 2014-01-29 00:00:00 Completed [facility] DT/Tetanus 2014-01-29 00:00:00 Completed [facility] DT/Tetanus 2014-01-29 00:00:00 Completed [facility] DT/Tetanus 2014-01-29 00:00:00 Completed [facility] DT/Tetanus 2014-01-29 00:00:00 Completed [facility] DT/Tetanus 2014-01-29 00:00:00 Completed [facility] DT/Tetanus 2014-01-29 00:00:00 Completed [facility] DT/Tetanus 2014-01-29 00:00:00 Completed [facility] DT/Tetanus 2014-01-29 00:00:00 Completed [facility] DT/Tetanus 2014-01-29 00:00:00 Completed [facility] DT/Tetanus 2014-01-29 00:00:00 Completed [facility] DT/Tetanus 2014-01-29 00:00:00 Completed [facility] DT/Tetanus 2014-01-29 00:00:00 Completed [facility] DT/Tetanus 2014-01-29 00:00:00 Completed [facility] DT/Tetanus 2014-01-29 00:00:00 Completed [facility] DT/Tetanus 2014-01-29 00:00:00 Completed [facility] DT/Tetanus 2014-01-29 00:00:00 Completed [facility] DT/Tetanus 2014-01-29 00:00:00 Completed [facility] DT/Tetanus 2014-01-29 00:00:00 Completed [facility] DT/Tetanus 2014-01-29 00:00:00 Completed [facility] DT/Tetanus 2014-01-29 00:00:00 Completed [facility] DT/Tetanus 2014-01-29 00:00:00 Completed [facility] DT/Tetanus 2014-01-29 00:00:00 Completed [facility] DT/Tetanus 2014-01-29 00:00:00 Completed [facility] DT/Tetanus 2014-01-29 00:00:00 Completed [facility] DT/Tetanus 2014-01-29 00:00:00 Completed [facility] DT/Tetanus 2014-01-29 00:00:00 Completed SARS-COV-2 COVID-19 MODERNA 12+ YRS VACCINE Unknown Completed [facility] Influenza Virus Vaccine Unknown Completed [facility] Pneumococcal 20 Conjugate, PCV20 (Prevnar 20) Unknown Completed [facility] Influenza Virus Vaccine Quad IM, Preserv and ABX Free 6 MO-64 YRS (FLUCELVAX) Unknown Completed [facility] SARS-COV-2 COVID-19 VACCINE 12 YRS+, BIVALENT 0.5ML, IM, (MODERNA-BLUE TOP) Unknown Completed [facility] DT/Tetanus Unknown Completed [facility] Influenza Virus Vaccine - Whole Unknown Completed [facility] Zoster Vaccine Recombinant Unknown Completed [facility] SARS-COV-2 COVID-19 MODERNA 12+ YRS VACCINE Unknown Completed [facility] Influenza Virus Vaccine Unknown Completed [facility] Pneumococcal 20 Conjugate, PCV20 (Prevnar 20) Unknown Completed [facility] Influenza Virus Vaccine Quad IM, Preserv and ABX Free 6 MO-64 YRS (FLUCELVAX) Unknown Completed [facility] SARS-COV-2 COVID-19 VACCINE 12 YRS+, BIVALENT 0.5ML, IM, (MODERNA-BLUE TOP) Unknown Completed [facility] DT/Tetanus Unknown Completed [facility] Influenza Virus Vaccine - Whole Unknown Completed [facility] Zoster Vaccine Recombinant Unknown Completed [facility] SARS-COV-2 COVID-19 MODERNA 12+ YRS VACCINE Unknown Completed [facility] Influenza Virus Vaccine Unknown Completed [facility] Pneumococcal 20 Conjugate, PCV20 (Prevnar 20) Unknown Completed [facility] Influenza Virus Vaccine Quad IM, Preserv and ABX Free 6 MO-64 YRS (FLUCELVAX) Unknown Completed [facility] SARS-COV-2 COVID-19 VACCINE 12 YRS+, BIVALENT 0.5ML, IM, (MODERNA-BLUE TOP) Unknown Completed [facility] DT/Tetanus Unknown Completed [facility] Influenza Virus Vaccine - Whole Unknown Completed [facility] Zoster Vaccine Recombinant Unknown Completed [facility] SARS-COV-2 COVID-19 MODERNA 12+ YRS VACCINE Unknown Completed [facility] Influenza Virus Vaccine Unknown Completed [facility] Pneumococcal 20 Conjugate, PCV20 (Prevnar 20) Unknown Completed [facility] Influenza Virus Vaccine Quad IM, Preserv and ABX Free 6 MO-64 YRS (FLUCELVAX) Unknown Completed [facility] SARS-COV-2 COVID-19 VACCINE 12 YRS+, BIVALENT 0.5ML, IM, (MODERNA-BLUE TOP) Unknown Completed [facility] DT/Tetanus Unknown Completed [facility] Influenza Virus Vaccine - Whole Unknown Completed [facility] Zoster Vaccine Recombinant Unknown Completed [facility] SARS-COV-2 COVID-19 MODERNA 12+ YRS VACCINE Unknown Completed [facility] Influenza Virus Vaccine Unknown Completed [facility] Pneumococcal 20 Conjugate, PCV20 (Prevnar 20) Unknown Completed [facility] DT/Tetanus Unknown Completed [facility] Influenza Virus Vaccine - Whole Unknown Completed [facility] Zoster Vaccine Recombinant Unknown Completed [facility] SARS-COV-2 COVID-19 MODERNA 12+ YRS VACCINE Unknown Completed [facility] Influenza Virus Vaccine Unknown Completed [facility] Pneumococcal 20 Conjugate, PCV20 (Prevnar 20) Unknown Completed [facility] DT/Tetanus Unknown Completed [facility] Influenza Virus Vaccine - Whole Unknown Completed [facility] Zoster Vaccine Recombinant Unknown Completed [facility] SARS-COV-2 COVID-19 MODERNA 12+ YRS VACCINE Unknown Completed [facility] Influenza Virus Vaccine Unknown Completed [facility] Pneumococcal 20 Conjugate, PCV20 (Prevnar 20) Unknown Completed [facility] DT/Tetanus Unknown Completed [facility] Influenza Virus Vaccine - Whole Unknown Completed [facility] Zoster Vaccine Recombinant Unknown Completed [facility] SARS-COV-2 COVID-19 MODERNA 12+ YRS VACCINE Unknown Completed [facility] Influenza Virus Vaccine Unknown Completed [facility] Pneumococcal 20 Conjugate, PCV20 (Prevnar 20) Unknown Completed [facility] DT/Tetanus Unknown Completed [facility] Influenza Virus Vaccine - Whole Unknown Completed [facility] Zoster Vaccine Recombinant Unknown Completed [facility] SARS-COV-2 COVID-19 MODERNA 12+ YRS VACCINE Unknown Completed [facility] Influenza Virus Vaccine Unknown Completed [facility] Pneumococcal 20 Conjugate, PCV20 (Prevnar 20) Unknown Completed [facility] DT/Tetanus Unknown Completed [facility] Influenza Virus Vaccine - Whole Unknown Completed [facility] Zoster Vaccine Recombinant Unknown Completed [facility] SARS-COV-2 COVID-19 MODERNA 12+ YRS VACCINE Unknown Completed [facility] Influenza Virus Vaccine Unknown Completed [facility] Pneumococcal 20 Conjugate, PCV20 (Prevnar 20) Unknown Completed [facility] DT/Tetanus Unknown Completed [facility] Influenza Virus Vaccine - Whole Unknown Completed [facility] Zoster Vaccine Recombinant Unknown Completed [facility] SARS-COV-2 COVID-19 MODERNA 12+ YRS VACCINE Unknown Completed [facility] Influenza Virus Vaccine Unknown Completed [facility] DT/[facility]anus [facility] Influenza Virus Vaccine - Whole Unknown Completed [facility] Zoster Vaccine Recombinant Unknown Completed [facility] SARS-COV-2 COVID-19 MODERNA 12+ YRS VACCINE Unknown Completed [facility] Influenza Virus Vaccine Unknown Completed [facility] DT/Tetanus Unknown Completed [facility] Influenza Virus Vaccine - Whole Unknown Completed [facility] Zoster Vaccine Recombinant Unknown Completed [facility] SARS-COV-2 COVID-19 MODERNA 12+ YRS VACCINE Unknown Completed [facility] Influenza Virus Vaccine Unknown Completed [facility] DT/Tetanus Unknown Completed [facility] Influenza Virus Vaccine - Whole Unknown Completed [facility] Zoster Vaccine Recombinant Unknown Completed [facility] SARS-COV-2 COVID-19 MODERNA 12+ YRS VACCINE Unknown Completed [facility] Influenza Virus Vaccine Unknown Completed [facility] DT/Tetanus Unknown [facility] Influenza Virus Vaccine - Whole Unknown Completed [facility] Zoster Vaccine Recombinant Unknown Completed [facility] SARS-COV-2 COVID-19 MODERNA 12+ YRS VACCINE Unknown Completed [facility] Influenza Virus Vaccine Unknown Completed [facility] DT/Tetanus Unknown [facility] Influenza Virus Vaccine - Whole Unknown Completed [facility] Zoster Vaccine Recombinant Unknown Completed [facility] SARS-COV-2 COVID-19 MODERNA 12+ YRS VACCINE Unknown Completed [facility] Influenza Virus Vaccine Unknown Completed [facility] DT/Tetanus Unknown Completed [facility] Influenza Virus Vaccine - Whole Unknown Completed [facility] Zoster Vaccine Recombinant Unknown Completed [facility] SARS-COV-2 COVID-19 MODERNA 12+ YRS VACCINE Unknown Completed [facility] DT/Tetanus Unknown Completed [facility] Zoster Vaccine Recombinant Unknown Completed [facility] SARS-COV-2 COVID-19 MODERNA 12+ YRS VACCINE Unknown Completed [facility] DT/Tetanus Unknown Completed [facility] Zoster Vaccine Recombinant Unknown Completed [facility] SARS-COV-2 COVID-19 MODERNA 12+ YRS VACCINE Unknown Completed [facility] Influenza Virus Vaccine Unknown Completed [facility] Pneumococcal 20 Conjugate, PCV20 (Prevnar 20) Unknown Completed [facility] Influenza Virus Vaccine Quad IM, Preserv and ABX Free 6 MO-64 YRS (FLUCELVAX) Unknown Completed [facility] SARS-COV-2 COVID-19 VACCINE 12 YRS+, BIVALENT 0.5ML, IM, (MODERNA-BLUE TOP) Unknown Completed [facility] DT/Tetanus Unknown Completed [facility] Influenza Virus Vaccine - Whole Unknown Completed [facility] Zoster Vaccine Recombinant Unknown Completed [facility] SARS-COV-2 COVID-19 MODERNA 12+ YRS VACCINE Unknown Completed [facility] Influenza Virus Vaccine Unknown Completed [facility] Pneumococcal 20 Conjugate, PCV20 (Prevnar 20) Unknown Completed [facility] Influenza Virus Vaccine Quad IM, Preserv and ABX Free 6 MO-64 YRS (FLUCELVAX) Unknown Completed [facility] SARS-COV-2 COVID-19 VACCINE 12 YRS+, BIVALENT 0.5ML, IM, (MODERNA-BLUE TOP) Unknown Completed [facility] DT/Tetanus Unknown Completed [facility] Influenza Virus Vaccine - Whole Unknown Completed [facility] Zoster Vaccine Recombinant Unknown Completed [facility] SARS-COV-2 COVID-19 MODERNA 12+ YRS VACCINE Unknown Completed [facility] Influenza Virus Vaccine Unknown Completed [facility] Pneumococcal 20 Conjugate, PCV20 (Prevnar 20) Unknown Completed [facility] Influenza Virus Vaccine Quad IM, Preserv and ABX Free 6 MO-64 YRS (FLUCELVAX) Unknown Completed [facility] SARS-COV-2 COVID-19 VACCINE 12 YRS+, BIVALENT 0.5ML, IM, (MODERNA-BLUE TOP) Unknown Completed [facility] DT/Tetanus Unknown Completed [facility] Influenza Virus Vaccine - Whole Unknown Completed [facility] Zoster Vaccine Recombinant Unknown Completed [facility] SARS-COV-2 COVID-19 MODERNA 12+ YRS VACCINE Unknown Completed [facility] Influenza Virus Vaccine Unknown Completed [facility] Pneumococcal 20 Conjugate, PCV20 (Prevnar 20) Unknown Completed [facility] Influenza Virus Vaccine Quad IM, Preserv and ABX Free 6 MO-64 YRS (FLUCELVAX) Unknown Completed [facility] SARS-COV-2 COVID-19 VACCINE 12 YRS+, BIVALENT 0.5ML, IM, (MODERNA-BLUE TOP) Unknown Completed [facility] DT/Tetanus Unknown Completed [facility] Influenza Virus Vaccine - Whole Unknown Completed [facility] Zoster Vaccine Recombinant Unknown Completed [facility] Influenza Virus Vaccine Unknown Completed [facility] Pneumococcal 20 Conjugate, PCV20 (Prevnar 20) Unknown Completed [facility] Influenza Virus Vaccine Quad IM, Preserv and ABX Free 6 MO-64 YRS (FLUCELVAX) Unknown Completed [facility] SARS-COV-2 COVID-19 VACCINE 12 YRS+, BIVALENT 0.5ML, IM, (MODERNA-BLUE TOP) Unknown Completed [facility] DT/Tetanus Unknown Completed [facility] Influenza Virus Vaccine - Whole Unknown Completed [facility] SARS-COV-2 COVID-19 MODERNA 12+ YRS VACCINE Unknown Completed [facility] Zoster Vaccine Recombinant Unknown Completed [facility] Influenza Virus Vaccine Unknown Completed [facility] Pneumococcal 20 Conjugate, PCV20 (Prevnar 20) Unknown Completed [facility] Influenza Virus Vaccine Quad IM, Preserv and ABX Free 6 MO-64 YRS (FLUCELVAX) Unknown Completed [facility] SARS-COV-2 COVID-19 VACCINE 12 YRS+, BIVALENT 0.5ML, IM, (MODERNA-BLUE TOP) Unknown Completed [facility] DT/Tetanus Unknown Completed [facility] Influenza Virus Vaccine - Whole Unknown Completed [facility] SARS-COV-2 COVID-19 MODERNA 12+ YRS VACCINE Unknown Completed [facility] Zoster Vaccine Recombinant Unknown Completed [facility] SARS-COV-2 COVID-19 MODERNA 12+ YRS VACCINE Unknown Completed [facility] Influenza Virus Vaccine Unknown Completed [facility] Pneumococcal 20 Conjugate, PCV20 (Prevnar 20) Unknown Completed [facility] Influenza Virus Vaccine Quad IM, Preserv and ABX Free 6 MO-64 YRS (FLUCELVAX) Unknown Completed [facility] SARS-COV-2 COVID-19 VACCINE 12 YRS+, BIVALENT 0.5ML, IM, (MODERNA-BLUE TOP) Unknown Completed [facility] DT/Tetanus Unknown Completed [facility] Influenza Virus Vaccine - Whole Unknown Completed [facility] Zoster Vaccine Recombinant Unknown Completed [facility] SARS-COV-2 COVID-19 MODERNA 12+ YRS VACCINE Unknown Completed [facility] Influenza Virus Vaccine Unknown Completed [facility] Pneumococcal 20 Conjugate, PCV20 (Prevnar 20) Unknown Completed [facility] Influenza Virus Vaccine Quad IM, Preserv and ABX Free 6 MO-64 YRS (FLUCELVAX) Unknown Completed [facility] SARS-COV-2 COVID-19 VACCINE 12 YRS+, BIVALENT 0.5ML, IM, (MODERNA-BLUE TOP) Unknown Completed [facility] DT/Tetanus Unknown Completed [facility] Influenza Virus Vaccine - Whole Unknown Completed [facility] Zoster Vaccine Recombinant Unknown Completed [facility] SARS-COV-2 COVID-19 MODERNA 12+ YRS VACCINE Unknown Completed [facility] Influenza Virus Vaccine Unknown Completed [facility] Pneumococcal 20 Conjugate, PCV20 (Prevnar 20) Unknown Completed [facility] Influenza Virus Vaccine Quad IM, Preserv and ABX Free 6 MO-64 YRS (FLUCELVAX) Unknown Completed [facility] SARS-COV-2 COVID-19 VACCINE 12 YRS+, BIVALENT 0.5ML, IM, (MODERNA-BLUE TOP) Unknown Completed [facility] DT/Tetanus Unknown Completed [facility] Influenza Virus Vaccine - Whole Unknown Completed [facility] Zoster Vaccine Recombinant Unknown Completed [facility] Influenza Virus Vaccine Unknown Completed [facility] Pneumococcal 20 Conjugate, PCV20 (Prevnar 20) Unknown Completed [facility] SARS-COV-2 COVID-19 VACCINE 12 YRS+, BIVALENT 0.5ML, IM, (MODERNA-BLUE TOP) Unknown Completed [facility] DT/Tetanus Unknown Completed [facility] Influenza Virus Vaccine - Whole Unknown Completed [facility] SARS-COV-2 COVID-19 MODERNA 12+ YRS VACCINE Unknown Completed [facility] Influenza Virus Vaccine Quad IM, Preserv and ABX Free 6 MO-64 YRS (FLUCELVAX) Unknown Completed [facility] Zoster Vaccine Recombinant Unknown Completed [facility] SARS-COV-2 COVID-19 MODERNA 12+ YRS VACCINE Unknown Completed [facility] Influenza Virus Vaccine Unknown Completed [facility] Pneumococcal 20 Conjugate, PCV20 (Prevnar 20) Unknown Completed [facility] Influenza Virus Vaccine Quad IM, Preserv and ABX Free 6 MO-64 YRS (FLUCELVAX) Unknown Completed [facility] SARS-COV-2 COVID-19 VACCINE 12 YRS+, BIVALENT 0.5ML, IM, (MODERNA-BLUE TOP) Unknown Completed [facility] DT/Tetanus Unknown Completed [facility] Influenza Virus Vaccine - Whole Unknown Completed [facility] Zoster Vaccine Recombinant Unknown Completed [facility] SARS-COV-2 COVID-19 MODERNA 12+ YRS VACCINE Unknown Completed [facility] Influenza Virus Vaccine Unknown Completed [facility] Pneumococcal 20 Conjugate, PCV20 (Prevnar 20) Unknown Completed [facility] Influenza Virus Vaccine Quad IM, Preserv and ABX Free 6 MO-64 YRS (FLUCELVAX) Unknown Completed [facility] SARS-COV-2 COVID-19 VACCINE 12 YRS+, BIVALENT 0.5ML, IM, (MODERNA-BLUE TOP) Unknown Completed [facility] DT/Tetanus Unknown Completed [facility] Influenza Virus Vaccine - Whole Unknown Completed [facility] Zoster Vaccine Recombinant Unknown Completed [facility] SARS-COV-2 COVID-19 MODERNA 12+ YRS VACCINE Unknown Completed [facility] Influenza Virus Vaccine Unknown Completed [facility] Pneumococcal 20 Conjugate, PCV20 (Prevnar 20) Unknown Completed [facility] Influenza Virus Vaccine Quad IM, Preserv and ABX Free 6 MO-64 YRS (FLUCELVAX) Unknown Completed [facility] SARS-COV-2 COVID-19 VACCINE 12 YRS+, BIVALENT 0.5ML, IM, (MODERNA-BLUE TOP) Unknown Completed [facility] DT/Tetanus Unknown Completed [facility] Influenza Virus Vaccine - Whole Unknown Completed [facility] Zoster Vaccine Recombinant Unknown Completed [facility] SARS-COV-2 COVID-19 MODERNA 12+ YRS VACCINE Unknown Completed [facility] Influenza Virus Vaccine Unknown Completed [facility] Pneumococcal 20 Conjugate, PCV20 (Prevnar 20) Unknown Completed [facility] Influenza Virus Vaccine Quad IM, Preserv and ABX Free 6 MO-64 YRS (FLUCELVAX) Unknown Completed [facility] SARS-COV-2 COVID-19 VACCINE 12 YRS+, BIVALENT 0.5ML, IM, (MODERNA-BLUE TOP) Unknown Completed [facility] DT/Tetanus Unknown Completed [facility] Influenza Virus Vaccine - Whole Unknown Completed [facility] Zoster Vaccine Recombinant Unknown Completed [facility] SARS-COV-2 COVID-19 MODERNA 12+ YRS VACCINE Unknown Completed [facility] Influenza Virus Vaccine Unknown Completed [facility] Pneumococcal 20 Conjugate, PCV20 (Prevnar 20) Unknown Completed [facility] Influenza Virus Vaccine Quad IM, Preserv and ABX Free 6 MO-64 YRS (FLUCELVAX) Unknown Completed [facility] SARS-COV-2 COVID-19 VACCINE 12 YRS+, BIVALENT 0.5ML, IM, (MODERNA-BLUE TOP) Unknown Completed [facility] DT/Tetanus Unknown Completed [facility] Influenza Virus Vaccine - Whole Unknown Completed [facility] Zoster Vaccine Recombinant Unknown Completed [facility] SARS-COV-2 COVID-19 MODERNA 12+ YRS VACCINE Unknown Completed [facility] Influenza Virus Vaccine Unknown Completed [facility] Pneumococcal 20 Conjugate, PCV20 (Prevnar 20) Unknown Completed [facility] Influenza Virus Vaccine Quad IM, Preserv and ABX Free 6 MO-64 YRS (FLUCELVAX) Unknown Completed [facility] SARS-COV-2 COVID-19 VACCINE 12 YRS+, BIVALENT 0.5ML, IM, (MODERNA-BLUE TOP) Unknown Completed [facility] DT/Tetanus Unknown Completed [facility] Influenza Virus Vaccine - Whole Unknown Completed [facility] Zoster Vaccine Recombinant Unknown Completed [facility] SARS-COV-2 COVID-19 MODERNA 12+ YRS VACCINE Unknown Completed [facility] Influenza Virus Vaccine Unknown Completed [facility] Pneumococcal 20 Conjugate, PCV20 (Prevnar 20) Unknown Completed [facility] Influenza Virus Vaccine Quad IM, Preserv and ABX Free 6 MO-64 YRS (FLUCELVAX) Unknown Completed [facility] SARS-COV-2 COVID-19 VACCINE 12 YRS+, BIVALENT 0.5ML, IM, (MODERNA-BLUE TOP) Unknown Completed [facility] DT/Tetanus Unknown Completed [facility] Influenza Virus Vaccine - Whole Unknown Completed [facility] Zoster Vaccine Recombinant Unknown Completed [facility] SARS-COV-2 COVID-19 MODERNA 12+ YRS VACCINE Unknown Completed [facility] Influenza Virus Vaccine Unknown Completed [facility] Pneumococcal 20 Conjugate, PCV20 (Prevnar 20) Unknown Completed [facility] Influenza Virus Vaccine Quad IM, Preserv and ABX Free 6 MO-64 YRS (FLUCELVAX) Unknown Completed [facility] SARS-COV-2 COVID-19 VACCINE 12 YRS+, BIVALENT 0.5ML, IM, (MODERNA-BLUE TOP) Unknown Completed [facility] DT/Tetanus Unknown Completed [facility] Influenza Virus Vaccine - Whole Unknown Completed [facility] Zoster Vaccine Recombinant Unknown Completed [facility] SARS-COV-2 COVID-19 MODERNA 12+ YRS VACCINE Unknown Completed [facility] Influenza Virus Vaccine Unknown Completed [facility] Pneumococcal 20 Conjugate, PCV20 (Prevnar 20) Unknown Completed [facility] Influenza Virus Vaccine Quad IM, Preserv and ABX Free 6 MO-64 YRS (FLUCELVAX) Unknown Completed [facility] SARS-COV-2 COVID-19 VACCINE 12 YRS+, BIVALENT 0.5ML, IM, (MODERNA-BLUE TOP) Unknown Completed [facility] DT/Tetanus Unknown Completed [facility] Influenza Virus Vaccine - Whole Unknown Completed [facility] Zoster Vaccine Recombinant Unknown Completed [facility] Influenza Virus Vaccine Unknown Completed [facility] Pneumococcal 20 Conjugate, PCV20 (Prevnar 20) Unknown Completed [facility] SARS-COV-2 COVID-19 VACCINE 12 YRS+, BIVALENT 0.5ML, IM, (MODERNA-BLUE TOP) Unknown Completed [facility] DT/Tetanus Unknown Completed [facility] Influenza Virus Vaccine - Whole Unknown Completed [facility] Influenza Virus Vaccine Unknown Completed [facility] Pneumococcal 20 Conjugate, PCV20 (Prevnar 20) Unknown Completed [facility] SARS-COV-2 COVID-19 VACCINE 12 YRS+, BIVALENT 0.5ML, IM, (MODERNA-BLUE TOP) Unknown Completed [facility] DT/Tetanus Unknown Completed [facility] Influenza Virus Vaccine - Whole Unknown Completed [facility] SARS-COV-2 COVID-19 MODERNA 12+ YRS VACCINE Unknown Completed [facility] Influenza Virus Vaccine Quad IM, Preserv and ABX Free 6 MO-64 YRS (FLUCELVAX) Unknown Completed [facility] Zoster Vaccine Recombinant Unknown Completed [facility] SARS-COV-2 COVID-19 MODERNA 12+ YRS VACCINE Unknown Completed [facility] Influenza Virus Vaccine Unknown Completed [facility] Pneumococcal 20 Conjugate, PCV20 (Prevnar 20) Unknown Completed [facility] Influenza Virus Vaccine Quad IM, Preserv and ABX Free 6 MO-64 YRS (FLUCELVAX) Unknown Completed [facility] SARS-COV-2 COVID-19 VACCINE 12 YRS+, BIVALENT 0.5ML, IM, (MODERNA-BLUE TOP) Unknown Completed [facility] DT/Tetanus Unknown Completed [facility] Influenza Virus Vaccine - Whole Unknown Completed [facility] Zoster Vaccine Recombinant Unknown Completed [facility] SARS-COV-2 COVID-19 MODERNA 12+ YRS VACCINE Unknown Completed [facility] Influenza Virus Vaccine Unknown Completed [facility] Pneumococcal 20 Conjugate, PCV20 (Prevnar 20) Unknown Completed [facility] Influenza Virus Vaccine Quad IM, Preserv and ABX Free 6 MO-64 YRS (FLUCELVAX) Unknown Completed [facility] SARS-COV-2 COVID-19 VACCINE 12 YRS+, BIVALENT 0.5ML, IM, (MODERNA-BLUE TOP) Unknown Completed [facility] DT/Tetanus Unknown Completed [facility] Influenza Virus Vaccine - Whole Unknown Completed [facility] Zoster Vaccine Recombinant Unknown Completed [facility] Influenza Virus Vaccine Unknown Completed [facility] Pneumococcal 20 Conjugate, PCV20 (Prevnar 20) Unknown Completed [facility] SARS-COV-2 COVID-19 VACCINE 12 YRS+, BIVALENT 0.5ML, IM, (MODERNA-BLUE TOP) Unknown Completed [facility] DT/Tetanus Unknown Completed [facility] Influenza Virus Vaccine - Whole Unknown Completed [facility] SARS-COV-2 COVID-19 MODERNA 12+ YRS VACCINE Unknown Completed [facility] Zoster Vaccine Recombinant Unknown Completed [facility] Influenza Virus Vaccine Quad IM, Preserv and ABX Free 6 MO-64 YRS (FLUCELVAX) Unknown Completed [facility] SARS-COV-2 COVID-19 MODERNA 12+ YRS VACCINE Unknown Completed [facility] Influenza Virus Vaccine Quad IM, Preserv and ABX Free 6 MO-64 YRS (FLUCELVAX) Unknown Completed [facility] Zoster Vaccine Recombinant Unknown Completed [facility] SARS-COV-2 COVID-19 MODERNA 12+ YRS VACCINE Unknown Completed [facility] Influenza Virus Vaccine Unknown Completed [facility] Pneumococcal 20 Conjugate, PCV20 (Prevnar 20) Unknown Completed [facility] Influenza Virus Vaccine Quad IM, Preserv and ABX Free 6 MO-64 YRS (FLUCELVAX) Unknown Completed [facility] SARS-COV-2 COVID-19 VACCINE 12 YRS+, BIVALENT 0.5ML, IM, (MODERNA-BLUE TOP) Unknown Completed [facility] DT/Tetanus Unknown Completed [facility] Influenza Virus Vaccine - Whole Unknown Completed [facility] Zoster Vaccine Recombinant Unknown Completed [facility] SARS-COV-2 COVID-19 MODERNA 12+ YRS VACCINE Unknown Completed [facility] Influenza Virus Vaccine Unknown Completed [facility] Pneumococcal 20 Conjugate, PCV20 (Prevnar 20) Unknown Completed [facility] Influenza Virus Vaccine Quad IM, Preserv and ABX Free 6 MO-64 YRS (FLUCELVAX) Unknown Completed [facility] SARS-COV-2 COVID-19 VACCINE 12 YRS+, BIVALENT 0.5ML, IM, (MODERNA-BLUE TOP) Unknown Completed [facility] DT/Tetanus Unknown Completed [facility] Influenza Virus Vaccine - Whole Unknown Completed [facility] Zoster Vaccine Recombinant Unknown Completed [facility] SARS-COV-2 COVID-19 MODERNA 12+ YRS VACCINE Unknown Completed [facility] Influenza Virus Vaccine Unknown Completed [facility] Pneumococcal 20 Conjugate, PCV20 (Prevnar 20) Unknown Completed [facility] Influenza Virus Vaccine Quad IM, Preserv and ABX Free 6 MO-64 YRS (FLUCELVAX) Unknown Completed [facility] SARS-COV-2 COVID-19 VACCINE 12 YRS+, BIVALENT 0.5ML, IM, (MODERNA-BLUE TOP) Unknown Completed [facility] DT/Tetanus Unknown Completed [facility] Influenza Virus Vaccine - Whole Unknown Completed [facility] Zoster Vaccine Recombinant Unknown Completed [facility] SARS-COV-2 COVID-19 MODERNA 12+ YRS VACCINE Unknown Completed [facility] Influenza Virus Vaccine Unknown Completed [facility] Pneumococcal 20 Conjugate, PCV20 (Prevnar 20) Unknown Completed [facility] Influenza Virus Vaccine Quad IM, Preserv and ABX Free 6 MO-64 YRS (FLUCELVAX) Unknown Completed [facility] SARS-COV-2 COVID-19 VACCINE 12 YRS+, BIVALENT 0.5ML, IM, (MODERNA-BLUE TOP) Unknown Completed [facility] DT/Tetanus Unknown Completed [facility] Influenza Virus Vaccine - Whole Unknown Completed [facility] Zoster Vaccine Recombinant Unknown Completed [facility] SARS-COV-2 COVID-19 MODERNA 12+ YRS VACCINE Unknown Completed [facility] Influenza Virus Vaccine Unknown Completed [facility] Pneumococcal 20 Conjugate, PCV20 (Prevnar 20) Unknown Completed [facility] Influenza Virus Vaccine Quad IM, Preserv and ABX Free 6 MO-64 YRS (FLUCELVAX) Unknown Completed [facility] SARS-COV-2 COVID-19 VACCINE 12 YRS+, BIVALENT 0.5ML, IM, (MODERNA-BLUE TOP) Unknown Completed [facility] DT/Tetanus Unknown Completed [facility] Influenza Virus Vaccine - Whole Unknown Completed [facility] Zoster Vaccine Recombinant Unknown Completed [facility] SARS-COV-2 COVID-19 MODERNA 12+ YRS VACCINE Unknown Completed [facility] Influenza Virus Vaccine Unknown Completed [facility] Pneumococcal 20 Conjugate, PCV20 (Prevnar 20) Unknown Completed [facility] Influenza Virus Vaccine Quad IM, Preserv and ABX Free 6 MO-64 YRS (FLUCELVAX) Unknown Completed [facility] SARS-COV-2 COVID-19 VACCINE 12 YRS+, BIVALENT 0.5ML, IM, (MODERNA-BLUE TOP) Unknown Completed [facility] DT/Tetanus Unknown Completed [facility] Influenza Virus Vaccine - Whole Unknown Completed [facility] Zoster Vaccine Recombinant Unknown Completed [facility] SARS-COV-2 COVID-19 MODERNA 12+ YRS VACCINE Unknown Completed [facility] Influenza Virus Vaccine Unknown Completed [facility] Pneumococcal 20 Conjugate, PCV20 (Prevnar 20) Unknown Completed [facility] Influenza Virus Vaccine Quad IM, Preserv and ABX Free 6 MO-64 YRS (FLUCELVAX) Unknown Completed [facility] SARS-COV-2 COVID-19 VACCINE 12 YRS+, BIVALENT 0.5ML, IM, (MODERNA-BLUE TOP) Unknown Completed [facility] DT/Tetanus Unknown Completed [facility] Influenza Virus Vaccine - Whole Unknown Completed [facility] Zoster Vaccine Recombinant Unknown Completed [facility] SARS-COV-2 COVID-19 MODERNA 12+ YRS VACCINE Unknown Completed [facility] Influenza Virus Vaccine Unknown Completed [facility] Pneumococcal 20 Conjugate, PCV20 (Prevnar 20) Unknown Completed [facility] Influenza Virus Vaccine Quad IM, Preserv and ABX Free 6 MO-64 YRS (FLUCELVAX) Unknown Completed [facility] SARS-COV-2 COVID-19 VACCINE 12 YRS+, BIVALENT 0.5ML, IM, (MODERNA-BLUE TOP) Unknown Completed [facility] DT/Tetanus Unknown Completed [facility] Influenza Virus Vaccine - Whole Unknown Completed [facility] Zoster Vaccine Recombinant Unknown Completed [facility] Influenza Virus Vaccine Unknown Completed [facility] Pneumococcal 20 Conjugate, PCV20 (Prevnar 20) Unknown Completed [facility] SARS-COV-2 COVID-19 VACCINE 12 YRS+, BIVALENT 0.5ML, IM, (MODERNA-BLUE TOP) Unknown Completed [facility] DT/Tetanus Unknown Completed [facility] Influenza Virus Vaccine - Whole Unknown Completed [facility] SARS-COV-2 COVID-19 MODERNA 12+ YRS VACCINE Unknown Completed [facility] Influenza Virus Vaccine Quad IM, Preserv and ABX Free 6 MO-64 YRS (FLUCELVAX) Unknown Completed [facility] Zoster Vaccine Recombinant Unknown Completed [facility] SARS-COV-2 COVID-19 MODERNA 12+ YRS VACCINE Unknown Completed [facility] Influenza Virus Vaccine Unknown Completed [facility] Pneumococcal 20 Conjugate, PCV20 (Prevnar 20) Unknown Completed [facility] Influenza Virus Vaccine Quad IM, Preserv and ABX Free 6 MO-64 YRS (FLUCELVAX) Unknown Completed [facility] SARS-COV-2 COVID-19 VACCINE 12 YRS+, BIVALENT 0.5ML, IM, (MODERNA-BLUE TOP) Unknown Completed [facility] DT/Tetanus Unknown Completed [facility] Influenza Virus Vaccine - Whole Unknown Completed [facility] Zoster Vaccine Recombinant Unknown Completed [facility] SARS-COV-2 COVID-19 MODERNA 12+ YRS VACCINE Unknown Completed [facility] Influenza Virus Vaccine Unknown Completed [facility] Pneumococcal 20 Conjugate, PCV20 (Prevnar 20) Unknown Completed [facility] Influenza Virus Vaccine Quad IM, Preserv and ABX Free 6 MO-64 YRS (FLUCELVAX) Unknown Completed [facility] SARS-COV-2 COVID-19 VACCINE 12 YRS+, BIVALENT 0.5ML, IM, (MODERNA-BLUE TOP) Unknown Completed [facility] DT/Tetanus Unknown Completed [facility] Influenza Virus Vaccine - Whole Unknown Completed [facility] Zoster Vaccine Recombinant Unknown Completed [facility] SARS-COV-2 COVID-19 MODERNA 12+ YRS VACCINE Unknown Completed [facility] Influenza Virus Vaccine Unknown Completed [facility] Pneumococcal 20 Conjugate, PCV20 (Prevnar 20) Unknown Completed [facility] Influenza Virus Vaccine Quad IM, Preserv and ABX Free 6 MO-64 YRS (FLUCELVAX) Unknown Completed [facility] SARS-COV-2 COVID-19 VACCINE 12 YRS+, BIVALENT 0.5ML, IM, (MODERNA-BLUE TOP) Unknown Completed [facility] DT/Tetanus Unknown Completed [facility] Influenza Virus Vaccine - Whole Unknown Completed [facility] Zoster Vaccine Recombinant Unknown Completed [facility] Influenza Virus Vaccine Unknown Completed [facility] Pneumococcal 20 Conjugate, PCV20 (Prevnar 20) Unknown Completed [facility] SARS-COV-2 COVID-19 VACCINE 12 YRS+, BIVALENT 0.5ML, IM, (MODERNA-BLUE TOP) Unknown Completed [facility] DT/Tetanus Unknown Completed [facility] Influenza Virus Vaccine - Whole Unknown Completed [facility] SARS-COV-2 COVID-19 MODERNA 12+ YRS VACCINE Unknown Completed [facility] Influenza Virus Vaccine Quad IM, Preserv and ABX Free 6 MO-64 YRS (FLUCELVAX) Unknown Completed [facility] Zoster Vaccine Recombinant Unknown Completed [facility] SARS-COV-2 COVID-19 MODERNA 12+ YRS VACCINE Unknown Completed [facility] Influenza Virus Vaccine Unknown Completed [facility] Pneumococcal 20 Conjugate, PCV20 (Prevnar 20) Unknown Completed [facility] Influenza Virus Vaccine Quad IM, Preserv and ABX Free 6 MO-64 YRS (FLUCELVAX) Unknown Completed [facility] SARS-COV-2 COVID-19 VACCINE 12 YRS+, BIVALENT 0.5ML, IM, (MODERNA-BLUE TOP) Unknown Completed [facility] DT/Tetanus Unknown Completed [facility] Influenza Virus Vaccine - Whole Unknown Completed [facility] Zoster Vaccine Recombinant Unknown Completed [facility] SARS-COV-2 COVID-19 MODERNA 12+ YRS VACCINE Unknown Completed [facility] Influenza Virus Vaccine Unknown Completed [facility] Pneumococcal 20 Conjugate, PCV20 (Prevnar 20) Unknown Completed [facility] Influenza Virus Vaccine Quad IM, Preserv and ABX Free 6 MO-64 YRS (FLUCELVAX) Unknown Completed [facility] SARS-COV-2 COVID-19 VACCINE 12 YRS+, BIVALENT 0.5ML, IM, (MODERNA-BLUE TOP) Unknown Completed [facility] DT/Tetanus Unknown Completed [facility] Influenza Virus Vaccine - Whole Unknown Completed [facility] Zoster Vaccine Recombinant Unknown Completed [facility] SARS-COV-2 COVID-19 MODERNA 12+ YRS VACCINE Unknown Completed [facility] Influenza Virus Vaccine Unknown Completed [facility] Pneumococcal 20 Conjugate, PCV20 (Prevnar 20) Unknown Completed [facility] Influenza Virus Vaccine Quad IM, Preserv and ABX Free 6 MO-64 YRS (FLUCELVAX) Unknown Completed [facility] SARS-COV-2 COVID-19 VACCINE 12 YRS+, BIVALENT 0.5ML, IM, (MODERNA-BLUE TOP) Unknown Completed [facility] DT/Tetanus Unknown Completed [facility] Influenza Virus Vaccine - Whole Unknown Completed [facility] Zoster Vaccine Recombinant Unknown Completed [facility] SARS-COV-2 COVID-19 MODERNA 12+ YRS VACCINE Unknown Completed [facility] Influenza Virus Vaccine Unknown Completed [facility] Pneumococcal 20 Conjugate, PCV20 (Prevnar 20) Unknown Completed [facility] Influenza Virus Vaccine Quad IM, Preserv and ABX Free 6 MO-64 YRS (FLUCELVAX) Unknown Completed [facility] SARS-COV-2 COVID-19 VACCINE 12 YRS+, BIVALENT 0.5ML, IM, (MODERNA-BLUE TOP) Unknown Completed [facility] DT/Tetanus Unknown Completed [facility] Influenza Virus Vaccine - Whole Unknown Completed [facility] Zoster Vaccine Recombinant Unknown Completed [facility] SARS-COV-2 COVID-19 MODERNA 12+ YRS VACCINE Unknown Completed [facility] Influenza Virus Vaccine Unknown Completed [facility] Pneumococcal 20 Conjugate, PCV20 (Prevnar 20) Unknown Completed [facility] Influenza Virus Vaccine Quad IM, Preserv and ABX Free 6 MO-64 YRS (FLUCELVAX) Unknown Completed [facility] SARS-COV-2 COVID-19 VACCINE 12 YRS+, BIVALENT 0.5ML, IM, (MODERNA-BLUE TOP) Unknown Completed [facility] DT/[facility]etanus [facility] Vacc[facility] - Whole Unknown Completed [facility] Zoster Vaccine Recombinant Unknown Completed [facility] SARS-COV-2 COVID-19 MODERNA 12+ YRS VACCINE Unknown Completed [facility] Influenza Virus Vaccine Unknown Completed [facility] Pneumococcal 20 Conjugate, PCV20 (Prevnar 20) Unknown Completed [facility] Influenza Virus Vaccine Quad IM, Preserv and ABX Free 6 MO-64 YRS (FLUCELVAX) Unknown Completed [facility] SARS-COV-2 COVID-19 VACCINE 12 YRS+, BIVALENT 0.5ML, IM, (MODERNA-BLUE TOP) Unknown Completed [facility] DT/Tetanus Unknown Completed [facility] Influenza Virus Vaccine - Whole Unknown Completed [facility] Zoster Vaccine Recombinant Unknown Completed [facility] SARS-COV-2 COVID-19 MODERNA 12+ YRS VACCINE Unknown Completed [facility] Influenza Virus Vaccine Unknown Completed [facility] Pneumococcal 20 Conjugate, PCV20 (Prevnar 20) Unknown Completed [facility] Influenza Virus Vaccine Quad IM, Preserv and ABX Free 6 MO-64 YRS (FLUCELVAX) Unknown Completed [facility] SARS-COV-2 COVID-19 VACCINE 12 YRS+, BIVALENT 0.5ML, IM, (MODERNA-BLUE TOP) Unknown Completed [facility] DT/Tetanus Unknown Completed [facility] Influenza Virus Vaccine - Whole Unknown Completed [facility] Zoster Vaccine Recombinant Unknown Completed [facility] SARS-COV-2 COVID-19 MODERNA 12+ YRS VACCINE Unknown Completed [facility] Influenza Virus Vaccine Unknown [facility] [facility] Pneumococcal 20 Conjugate, PCV20 (Prevnar 20) Unknown Completed [facility] Influenza Virus Vaccine Quad IM, Preserv and ABX Free 6 MO-64 YRS (FLUCELVAX) Unknown Completed [facility] SARS-COV-2 COVID-19 VACCINE 12 YRS+, BIVALENT 0.5ML, IM, (MODERNA-BLUE TOP) Unknown Completed [facility] DT/Tetanus Unknown Completed [facility] Influenza Virus Vaccine - Whole Unknown Completed [facility] Zoster Vaccine Recombinant Unknown Completed [facility] SARS-COV-2 COVID-19 MODERNA 12+ YRS VACCINE Unknown Completed [facility] Influenza Virus Vaccine Unknown Completed [facility] Pneumococcal 20 Conjugate, PCV20 (Prevnar 20) Unknown Completed [facility] Influenza Virus Vaccine Quad IM, Preserv and ABX Free 6 MO-64 YRS (FLUCELVAX) Unknown Completed [facility] SARS-COV-2 COVID-19 VACCINE 12 YRS+, BIVALENT 0.5ML, IM, (MODERNA-BLUE TOP) Unknown Completed [facility] DT/Tetanus Unknown Completed [facility] Influenza Virus Vaccine - Whole Unknown Completed [facility] Zoster Vaccine Recombinant Unknown Completed [facility] SARS-COV-2 COVID-19 MODERNA 12+ YRS VACCINE Unknown Completed [facility] Influenza Virus Vaccine Unknown Completed [facility] Pneumococcal 20 Conjugate, PCV20 (Prevnar 20) Unknown Completed [facility] Influenza Virus Vaccine Quad IM, Preserv and ABX Free 6 MO-64 YRS (FLUCELVAX) Unknown Completed [facility] SARS-COV-2 COVID-19 VACCINE 12 YRS+, BIVALENT 0.5ML, IM, (MODERNA-BLUE TOP) Unknown Completed [facility] DT/Tetanus Unknown Completed [facility] Influenza Virus Vaccine - Whole Unknown Completed [facility] Zoster Vaccine Recombinant Unknown Completed [facility] SARS-COV-2 COVID-19 MODERNA 12+ YRS VACCINE Unknown Completed [facility] Influenza Virus Vaccine Unknown Completed [facility] Pneumococcal 20 Conjugate, PCV20 (Prevnar 20) Unknown Completed [facility] Influenza Virus Vaccine Quad IM, Preserv and ABX Free 6 MO-64 YRS (FLUCELVAX) Unknown Completed [facility] SARS-COV-2 COVID-19 VACCINE 12 YRS+, BIVALENT 0.5ML, IM, (MODERNA-BLUE TOP) Unknown Completed [facility] DT/Tetanus Unknown Completed [facility] Influenza Virus Vaccine - Whole Unknown Completed [facility] Zoster Vaccine Recombinant Unknown Completed [facility] SARS-COV-2 COVID-19 MODERNA 12+ YRS VACCINE Unknown Completed [facility] Influenza Virus Vaccine Unknown Completed [facility] Pneumococcal 20 Conjugate, PCV20 (Prevnar 20) Unknown Completed [facility] Influenza Virus Vaccine Quad IM, Preserv and ABX Free 6 MO-64 YRS (FLUCELVAX) Unknown Completed [facility] SARS-COV-2 COVID-19 VACCINE 12 YRS+, BIVALENT 0.5ML, IM, (MODERNA-BLUE TOP) Unknown Completed [facility] DT/Tetanus Unknown Completed [facility] Influenza Virus Vaccine - Whole Unknown Completed [facility] Zoster Vaccine Recombinant Unknown Completed [facility] SARS-COV-2 COVID-19 MODERNA 12+ YRS VACCINE Unknown Completed [facility] Influenza Virus Vaccine Unknown Completed [facility] Pneumococcal 20 Conjugate, PCV20 (Prevnar 20) Unknown Completed [facility] Influenza Virus Vaccine Quad IM, Preserv and ABX Free 6 MO-64 YRS (FLUCELVAX) Unknown Completed [facility] SARS-COV-2 COVID-19 VACCINE 12 YRS+, BIVALENT 0.5ML, IM, (MODERNA-BLUE TOP) Unknown Completed [facility] DT/Tetanus Unknown Completed [facility] Influenza Virus Vaccine - Whole Unknown Completed [facility] Zoster Vaccine Recombinant Unknown Completed [facility] Vital Signs Vital Name Observation Time Observation Value Comments S ource Systolic blood pressure 2024-11-11 19:59:00 124 mm[Hg] [facility] Diastolic blood pressure 2024-11-11 19:59:00 86 mm[Hg] [facility] Heart rate 2024-11-11 19:59:00 79 /min [facility] Body height 2024-11-11 19:59:00 165.1 cm [facility] Body weight 2024-11-11 19:59:00 77.066 kg [facility] BMI 2024-11-11 19:59:00 28.27 kg/m2 [facility] Oxygen saturation in Arterial blood by Pulse oximetry 2024-11-11 19:59:00 97 /min [facility] Systolic blood pressure 2024-10-22 20:44:00 98 mm[Hg] pt is feeling very tired [facility] Diastolic blood pressure 2024-10-22 20:44:00 66 mm[Hg] pt is feeling very tired [facility] Heart rate 2024-10-22 20:44:00 84 /min [facility] Body temperature 2024-10-22 20:44:00 36 Ashlee [facility] Respiratory rate 2024-10-22 20:44:00 18 /min [facility] Body height 2024-10-22 20:44:00 165.1 cm [facility] Body weight 2024-10-22 20:44:00 78.79 kg [facility] BMI 2024-10-22 20:44:00 28.91 kg/m2 [facility] Oxygen saturation in Arterial blood by Pulse oximetry 2024-10-22 20:44:00 96 /min [facility] Systolic blood pressure 2024-08-20 20:17:00 112 mm[Hg] [facility] Diastolic blood pressure 2024-08-20 20:17:00 72 mm[Hg] [facility] Heart rate 2024-08-20 20:17:00 90 /min [facility] Respiratory rate 2024-08-20 20:17:00 18 /min [facility] Body height 2024-08-20 20:17:00 165.1 cm [facility] Body weight 2024-08-20 20:17:00 78.336 kg [facility] BMI 2024-08-20 20:17:00 28.74 kg/m2 [facility] Oxygen saturation in Arterial blood by Pulse oximetry 2024-08-20 20:17:00 95 /min [facility] Systolic blood pressure 2024-07-26 19:17:00 117 mm[Hg] [facility] Diastolic blood pressure 2024-07-26 19:17:00 75 mm[Hg] [facility] Heart rate 2024-07-26 19:17:00 85 /min [facility] Body temperature 2024-07-26 19:17:00 35.83 Ashlee [facility] Respiratory rate 2024-07-26 19:17:00 16 /min [facility] Body height 2024-07-26 19:17:00 165.1 cm [facility] Body weight 2024-07-26 19:17:00 79.833 kg [facility] BMI 2024-07-26 19:17:00 29.29 kg/m2 [facility] Oxygen saturation in Arterial blood by Pulse oximetry 2024-07-26 19:17:00 98 /min [facility] Systolic blood pressure 2024-04-23 20:30:00 91 mm[Hg] [facility] Diastolic blood pressure 2024-04-23 20:30:00 59 mm[Hg] [facility] Heart rate 2024-04-23 20:30:00 79 /min [facility] Body temperature 2024-04-23 20:30:00 36.28 Ashlee [facility] Respiratory rate 2024-04-23 20:30:00 18 /min [facility] Body height 2024-04-23 20:30:00 165.1 cm [facility] Body weight 2024-04-23 20:30:00 78.427 kg [facility] BMI 2024-04-23 20:30:00 28.77 kg/m2 [facility] Oxygen saturation in Arterial blood by Pulse oximetry 2024-04-23 20:30:00 97 /min [facility] Body height 2024-01-05 14:53:00 165.1 cm [facility] Body weight 2024-01-05 14:53:00 80.105 kg [facility] BMI 2024-01-05 14:53:00 29.39 kg/m2 [facility] Body height 2023-12-22 15:47:00 165.1 cm [facility] Body weight 2023-12-22 15:47:00 81.421 kg [facility] BMI 2023-12-22 15:47:00 29.87 kg/m2 [facility] Systolic blood pressure 2023-12-19 19:19:00 115 mm[Hg] [facility] Diastolic blood pressure 2023-12-19 19:19:00 75 mm[Hg] [facility] Heart rate 2023-12-19 19:19:00 93 /min [facility] Respiratory rate 2023-12-19 19:19:00 18 /min [facility] Body height 2023-12-19 19:19:00 165.1 cm [facility] Body weight 2023-12-19 19:19:00 80.786 kg [facility] BMI 2023-12-19 19:19:00 29.64 kg/m2 [facility] Oxygen saturation in Arterial blood by Pulse oximetry 2023-12-19 19:19:00 97 /min [facility] Systolic blood pressure 2023-09-29 21:32:00 125 mm[Hg] [facility] Diastolic blood pressure 2023-09-29 21:32:00 84 mm[Hg] [facility] Heart rate 2023-09-29 21:32:00 83 /min [facility] Body temperature 2023-09-29 21:32:00 36.22 Ashlee [facility] Respiratory rate 2023-09-29 21:32:00 18 /min [facility] Body height 2023-09-29 21:32:00 165.1 cm [facility] Body weight 2023-09-29 21:32:00 85.458 kg [facility] BMI 2023-09-29 21:32:00 31.35 kg/m2 [facility] Oxygen saturation in Arterial blood by Pulse oximetry 2023-09-29 21:32:00 95 /min r/a [facility] Systolic blood pressure 2023-09-25 20:55:00 108 mm[Hg] [facility] Diastolic blood pressure 2023-09-25 20:55:00 74 mm[Hg] [facility] Heart rate 2023-09-25 20:55:00 85 /min [facility] Body height 2023-09-25 20:55:00 165.1 cm [facility] Body weight 2023-09-25 20:55:00 85.276 kg [facility] BMI 2023-09-25 20:55:00 31.28 kg/m2 [facility] Systolic blood pressure 2023-06-14 21:40:00 139 mm[Hg] [facility] Diastolic blood pressure 2023-06-14 21:40:00 88 mm[Hg] [facility] Heart rate 2023-06-14 21:40:00 86 /min [facility] Respiratory rate 2023-06-14 21:40:00 18 /min [facility] Body height 2023-06-14 21:40:00 165.1 cm [facility] Body weight 2023-06-14 21:40:00 91.536 kg [facility] BMI 2023-06-14 21:40:00 33.58 kg/m2 [facility] Oxygen saturation in Arterial blood by Pulse oximetry 2023-06-14 21:40:00 96 /min [facility] Systolic blood pressure 2023-04-04 18:23:00 113 mm[Hg] [facility] Diastolic blood pressure 2023-04-04 18:23:00 73 mm[Hg] [facility] Heart rate 2023-04-04 18:23:00 81 /min [facility] Body temperature 2023-04-04 18:23:00 36.11 Ashlee [facility] Respiratory rate 2023-04-04 18:23:00 18 /min [facility] Body height 2023-04-04 18:23:00 165.1 cm [facility] Body weight 2023-04-04 18:23:00 91.627 kg [facility] BMI 2023-04-04 18:23:00 33.61 kg/m2 [facility] Oxygen saturation in Arterial blood by Pulse oximetry 2023-04-04 18:23:00 97 /min r/a [facility] Systolic blood pressure 2023-01-09 21:06:00 111 mm[Hg] [facility] Diastolic blood pressure 2023-01-09 21:06:00 80 mm[Hg] [facility] Heart rate 2023-01-09 21:06:00 74 /min [facility] Body temperature 2023-01-09 21:06:00 36.78 Ashlee [facility] Respiratory rate 2023-01-09 21:06:00 18 /min [facility] Body height 2023-01-09 21:06:00 165.1 cm [facility] Body weight 2023-01-09 21:06:00 93.895 kg [facility] BMI 2023-01-09 21:06:00 34.45 kg/m2 [facility] Systolic blood pressure 2022-12-20 17:43:00 112 mm[Hg] [facility] Diastolic blood pressure 2022-12-20 17:43:00 77 mm[Hg] [facility] Heart rate 2022-12-20 17:43:00 84 /min [facility] Body temperature 2022-12-20 17:43:00 36.56 Ashlee [facility] Respiratory rate 2022-12-20 17:43:00 17 /min [facility] Body height 2022-12-20 17:43:00 165.1 cm [facility] Body weight 2022-12-20 17:43:00 91.627 kg [facility] BMI 2022-12-20 17:43:00 33.61 kg/m2 [facility] Oxygen saturation in Arterial blood by Pulse oximetry 2022-12-20 17:43:00 99 /min room air [facility] Systolic blood pressure 2022-12-08 14:47:00 100 mm[Hg] [facility] Diastolic blood pressure 2022-12-08 14:47:00 68 mm[Hg] [facility] Heart rate 2022-12-08 14:47:00 82 /min [facility] Body temperature 2022-12-08 14:47:00 36.56 Ashlee [facility] Respiratory rate 2022-12-08 14:47:00 16 /min [facility] Body height 2022-12-08 14:47:00 165.1 cm [facility] Body weight 2022-12-08 14:47:00 95.029 kg [facility] BMI 2022-12-08 14:47:00 34.86 kg/m2 [facility] Oxygen saturation in Arterial blood by Pulse oximetry 2022-12-08 14:47:00 96 /min [facility] Systolic blood pressure 2022-10-13 20:13:00 117 mm[Hg] [facility] Diastolic blood pressure 2022-10-13 20:13:00 72 mm[Hg] [facility] Heart rate 2022-10-13 20:13:00 97 /min [facility] Body temperature 2022-10-13 20:13:00 37.11 Ashlee [facility] Body height 2022-10-13 20:13:00 165.1 cm [facility] Body weight 2022-10-13 20:13:00 94.348 kg [facility] BMI 2022-10-13 20:13:00 34.61 kg/m2 [facility] Oxygen saturation in Arterial blood by Pulse oximetry 2022-10-13 20:13:00 96 /min [facility] Systolic blood pressure 2022-10-07 18:04:00 127 mm[Hg] [facility] Diastolic blood pressure 2022-10-07 18:04:00 82 mm[Hg] [facility] Heart rate 2022-10-07 18:04:00 85 /min [facility] Body temperature 2022-10-07 18:04:00 36.33 Ashlee [facility] Respiratory rate 2022-10-07 18:04:00 16 /min [facility] Body height 2022-10-07 18:04:00 165.1 cm [facility] Body weight 2022-10-07 18:04:00 94.756 kg [facility] BMI 2022-10-07 18:04:00 34.76 kg/m2 [facility] Oxygen saturation in Arterial blood by Pulse oximetry 2022-10-07 18:04:00 98 /min ra [facility] Systolic blood pressure 2022-10-05 18:34:00 103 mm[Hg] [facility] Diastolic blood pressure 2022-10-05 18:34:00 71 mm[Hg] [facility] Heart rate 2022-10-05 18:34:00 70 /min [facility] Body temperature 2022-10-05 18:34:00 36.67 Ashlee [facility] Respiratory rate 2022-10-05 18:34:00 18 /min [facility] Body height 2022-10-05 18:34:00 165.1 cm [facility] Body weight 2022-10-05 18:34:00 93.441 kg [facility] BMI 2022-10-05 18:34:00 34.28 kg/m2 [facility] Systolic blood pressure 2022-07-20 15:10:00 124 mm[Hg] [facility] Diastolic blood pressure 2022-07-20 15:10:00 80 mm[Hg] [facility] Heart rate 2022-07-20 15:10:00 60 /min [facility] Body temperature 2022-07-20 15:10:00 36.72 Ashlee [facility] Body height 2022-07-20 15:10:00 165.1 cm [facility] Body weight 2022-07-20 15:10:00 95.255 kg [facility] BMI 2022-07-20 15:10:00 34.95 kg/m2 [facility] Oxygen saturation in Arterial blood by Pulse oximetry 2022-07-20 15:10:00 96 /min [facility] Systolic blood pressure 2022-06-14 19:23:00 126 mm[Hg] [facility] Diastolic blood pressure 2022-06-14 19:23:00 78 mm[Hg] [facility] Heart rate 2022-06-14 19:23:00 68 /min [facility] Body temperature 2022-06-14 19:23:00 36.72 Ashlee [facility] Respiratory rate 2022-06-14 19:23:00 18 /min [facility] Body height 2022-06-14 19:23:00 165.1 cm [facility] Body weight 2022-06-14 19:23:00 94.892 kg [facility] BMI 2022-06-14 19:23:00 34.81 kg/m2 [facility] Height/Length Measured 2021-08-05 08:48:40 165 cm Weight Dosing 2021-08-05 08:48:40 89.3 kg Weight Dosing 2021-08-05 08:48:12 89.3 kg Height/Length Measured 2021-08-05 08:48:12 165 cm Height/Length Measured 2020-05-28 12:53:26 Weight Dosing 2020-05-28 12:53:26 Systolic BP 2024-09-26 18:27:00 112 mm[Hg] Diastolic BP 2024-09-26 18:27:00 81 mm[Hg] Pulse 2024-09-26 18:27:00 82 /min Height 2024-09-26 18:27:00 165.1 cm Weight and Height tracking panel 2024-09-26 18:27:00 Weight 2024-09-26 18:27:00 75.75 kg BMI (Body Mass Index) 2024-09-26 18:26:59 27.79 kg/m2 Systolic BP 2024-03-28 19:54:00 127 mm[Hg] Diastolic BP 2024-03-28 19:54:00 87 mm[Hg] Weight and Height tracking panel 2024-03-28 19:54:00 Pulse 2024-03-28 19:54:00 86 /min Height 2024-03-28 19:54:00 165.1 cm Weight 2024-03-28 19:54:00 79.38 kg BMI (Body Mass Index) 2024-03-28 19:53:59 29.12 kg/m2 Procedures Procedure Date / Time Performed Performing Clinician Source XR HIPS 3 VW LEFT 2024-11-07 18:18:00 Umberto Saul [facility] Documentation of current medications (procedure); Performed: 2024-09-26; Dr Elzbieta Huang; Endocrinology & Osteoporosis [facility]; 09/26/2024 2024-09-26 14:00:00 Lifestyle education regarding diet (procedure); Performed: 2024-09-26; Dr Elzbieta Huang; Endocrinology & Osteoporosis [facility]; 09/26/2024 2024-09-26 05:00:00 Documentation of current medications (procedure); Performed: 2024-03-28; Dr Elzbieta Huang; Endocrinology & Osteoporosis [facility]; 03/28/2024 2024-03-28 15:00:00 Lifestyle education regarding diet (procedure); Performed: 2024-03-28; Dr Elzbieta Huang; Endocrinology & Osteoporosis [facility]; 03/28/2024 2024-03-28 05:00:00 REFERRAL- REQUEST/RESPONSE 2023-12-12 18:21:34 Doctor Unassigned, [place] [facility] HOME HEALTH - OTHER 2023-10-24 18:20:22 Doctor Donna ty, [place] [facility] EXTERNAL PROVIDER RECORDS 2023-09-26 05:01:00 Do ctor Unassigned, [place] [facility] REFERRAL- REQUEST/RESPONSE 2023-08-09 06:01:00 Doctor Unassigned, [place] [facility] XR CHEST 2 VW 2023-06-14 22:45:07 Janel Snow [facility] FLU VACC ([id number]), 6 MO-64 YRS, .5ML, IM, QUAD (FLUCELVAX) 2023-06-14 22:11:49 Janel Snow [facility] EXTERNAL PROVIDER RECORDS 2023-05-30 06:01:00 Do ctor Unassigned, [place] [facility] CONSENT/REFUSAL FOR DIAGNOSIS AND TREATMENT 2023-04-04 18:16:34 Doctor Unassigned, [place] [facility] INSURANCE CORRESPONDENCE 2023-02-28 05:01:00 Doc tor Unassigned, [place] [facility] XR HIPS 2 VW RIGHT 2023-01-09 20:44:00 Franko Thakur [facility] REFERRAL- REQUEST/RESPONSE 2022-12-16 05:01:00 Doctor Unassigned, [place] [facility] REFERRAL- REQUEST/RESPONSE 2022-11-14 05:01:00 Doctor Unassigned, [place] [facility] DEXA AXIAL (HIP AND SPINE) 2022-10-24 19:39:07 Manisha Norris [facility] ASSIGNMENT OF BENEFITS 2022-10-24 19:04:26 Docto r Unassigned, [place] [facility] POCT MOLECULAR FLU 2022-10-13 20:23:00 Babita Saldana [facility] POCT MOLECULAR STREP 2022-10-13 20:11:00 Kya Saldana [facility] PATIENT FINANCIAL POLICY 2022-10-05 17:55:40 Doctor Unassigned, [place] [facility] REFERRAL- REQUEST/RESPONSE 2022-09-23 06:01:00 Doctor Unassigned, [place] [facility] EXTERNAL PROVIDER RECORDS 2022-08-30 06:01:00 Do ctor Unassigned, [place] [facility] REFERRAL- REQUEST/RESPONSE 2022-07-07 06:01:00 Doctor Unassigned, [place] [facility] EXTERNAL PROVIDER RECORDS 2022-06-23 06:01:00 Do ctor Unassigned, [place] [facility] REFERRAL- REQUEST/RESPONSE 2022-06-02 06:01:00 Doctor Unassigned, [place] [facility] REFERRAL- REQUEST/RESPONSE 2022-05-11 05:01:00 Doctor Unassigned, [place] [facility] DME/SUPPLY JUSTIFICATION 2022-04-28 05:01:00 Johnnie leo Unassigned, [place] [facility] PHYSICIAN ORDERS 2022-04-12 05:01:00 Doctor Unas signed, [place] [facility] FLU VACC (), 6 MO-64 YRS, .5ML, IM, QUAD (FLUCELVAX) 2022-04-08 19:25:44 Manisha Norris [facility] SARS-COV-2 COVID-19 VACCINE 18 YRS+, BIVALENT 0.5ML, IM (MODERNA BOOSTER) 2022-04-08 19:25:44 Manisha Norris [facility] INSURANCE CORRESPONDENCE 2022-04-04 05:01:00 Doc felipa Unassigned, [place] [facility] HOME HEALTH - OTHER 2022-03-24 05:01:00 Doctor Donna nassigned, [place] [facility] INSURANCE CORRESPONDENCE 2022-03-08 05:01:00 Doc felipa Unassigned, [place] [facility] Encounters Start Date/Time End Date/Time Encounter Type Admission Type Attending [facility] Facility Care Department Encounter ID Source 2023-09-07 13:19:00 Outpatient Franko Thakur [facility] [id number] [facility] 2022-12-19 08:36:01 Outpatient Franko Thakur [facility] [id number] [facility] 2022-11-29 07:06:00 Outpatient Franko Thakur [facility] [id number] [facility] 2022-05-23 11:12:01 Outpatient Franko Thakur [facility] [id number] [facility] 2020-05-28 14:35:00 Inpatient Corwin Manjarrez [facility] [id number] [facility] 2025-04-29 15:45:00 2025-04-29 15:45:00 Outpatient R MANISHA NORRIS LAURA [facility] [id number] [facility] 2024-11-11 15:00:00 2024-11-11 15:32:13 Outpatient R BABITA SALDANA [facility] [id number] [facility] 2024-11-11 15:00:00 2024-11-11 15:32:13 Office Visit Babita Saldana [facility] 1.114 [id number] [facility] 2024-11-08 00:00:00 2024-11-08 14:07:22 Specialty Pharmacy Monica Sanford Shatara [facility] 1.114 [id number] [facility] 2024-11-07 13:05:24 2024-11-07 23:59:00 Outpatient R UMBERTO SAUL CRAIG [facility] [id number] [facility] 2024-11-07 13:05:24 2024-11-07 23:59:00 Hospital Encounter Umberto Saul [facility] 1..114 [id number] [facility] 2022-04-27 00:00:00 2024-11-07 21:33:27 Refill Doctor Unassigned, [place] [facility], [place] [facility] 1..114 [id number] [facility] 2023-05-01 00:00:00 2024-11-07 21:17:29 Harry Dalton [facility] [id number] [facility] 2024-11-07 00:00:00 2024-11-07 10:47:59 Telephone Babita Saldana [facility] [id number] [facility] 2024-11-04 15:40:00 2024-11-04 15:40:00 Outpatient R BABITA SALDANA [facility] [id number] [facility] 2024-10-22 15:45:00 2024-10-22 16:12:00 Outpatient MANISHA ALONZO LAURA [facility] [id number] [facility] 2024-10-22 15:45:00 2024-10-22 16:12:00 Office Visit Manisha Norris [facility] 1.2.840.114 350.1.13.10 4.2.7.2.686 [id number] 086 [id number] [facility] 2024-10-17 12:16:28 2024-10-17 23:59:00 Outpatient R RUBY-ALEX SDORIRIVKA RUBY-ALEX S RIVKA [facility] [id number] [facility] 2024-10-17 12:16:28 2024-10-17 23:59:00 Hospital Encounter Ruby-Dori Hesssol [facility] 1.2.840.114 350.1.13.10 4.2.7.2.686 [id number] [facility] 2024-10-14 00:00:00 2024-10-14 00:00:00 Outpatient R RUBY-ALEX S, RIVKA BELTRAN-ALEX S, RIVKA [facility] [id number] [facility] 2024-10-11 00:00:00 2024-10-11 15:59:54 Specialty Pharmacy Anderson Ellison Michael A [facility] 1.2.840.114 350.1.13.10 4.2.7.2.686 [id number] 016 [id number] [facility] 2024-09-30 15:30:00 2024-09-30 15:22:57 Outpatient R RUBY-ALEX S, RIVKA BELTRAN-ALEX S, RIVKA [facility] [id number] [facility] 2024-09-26 00:00:00 2024-09-26 23:59:59 Outpatient Encounter for "check-up" (procedure ) EOCT EOCT [id number] 2024-09-19 00:00:00 2024-09-19 09:50:31 Specialty Pharmacy Leydi Vivar Monique [facility] 1.2.840.114 350.1.13.10 4.2.7.2.686 [id number] 016 [id number] [facility] 2024-09-17 00:00:00 2024-09-19 08:09:04 Refill Manisha Norris [facility] 1.2.840.114 350.1.13.10 4.2.7.2.686 [id number] 086 [id number] [facility] 2024-09-11 00:00:00 2024-09-11 16:54:44 Letter (Out) [facility] 1.2.840.114 350.1.13.10 4.2.7.2.686 [id number] 019 [id number] [facility] 2024-09-11 00:00:00 2024-09-11 16:49:11 Letter (Out) [facility] 1.2.840.114 350.1.13.10 4.2.7.2.686 [id number] 019 [id number] [facility] 2024-09-11 00:00:00 2024-09-11 16:47:05 Letter (Out) [facility] 1.2.840.114 350.1.13.10 4.2.7.2.686 [id number] 019 [id number] [facility] 2023-12-12 00:00:00 2024-08-31 07:41:18 Orders Only Doctor Unassigned, [place] Doctor Unassigned, [place] [facility] 1.2.840.114 350.1.13.10 4.2.7.2.686 [id number] 009 [id number] [facility] 2023-12-19 00:00:00 2024-08-31 07:36:25 Orders Only Ricks, Danette Ricks, Danette [facility] 1.2.840.114 350.1.13.10 4.2.7.2.686 [id number] 044 [id number] [facility] 2022-12-07 00:00:00 2024-08-31 02:41:13 Orders Only Ricks, Danette Ricks, Danette [facility] 1.2.840.114 350.1.13.10 4.2.7.2.686 [id number] 044 [id number] [facility] 2023-06-06 00:00:00 2024-08-31 02:36:57 Orders Only Ricks, Danette Ricks, Danette [facility] 1.2.840.114 350.1.13.10 4.2.7.2.686 [id number] 044 [id number] [facility] 2023-06-14 00:00:00 2024-08-31 02:36:49 Orders Only Danette Ricks, Danette [facility] 1.2840.114 350.1.13.10 4.2.7.2.686 [id number] 044 [id number] [facility] 2023-09-11 00:00:00 2024-08-31 02:34:53 Orders Only Danette Ricks, Danette [facility] 1.840.114 350.1.13.10 4.2.7.2.686 [id number] 044 [id number] [facility] 2023-10-24 00:00:00 2024-08-31 02:25:24 Orders Only Doctor Unassigned, [place] Doctor Unassigned, [place] [facility] 1.0.114 350.1.13.10 4.2.7.2.686 [id number] 009 [id number] [facility] 2024-08-20 14:20:00 2024-08-20 14:55:40 Outpatient R BABITA SALDANA [facility] [id number] [facility] 2024-08-20 14:20:00 2024-08-20 14:55:40 Office Visit Babita Saldana [facility] 1.20.114 350.1.13.10 4.2.7.2.686 [id number] 044 [id number] [facility] 2024-08-16 00:00:00 2024-08-16 17:29:11 Specialty Pharmacy Monica Sanford Shatara E [facility] 1.2840.114 350.1.13.10 4.2.7.2.686 [id number] 016 [id number] [facility] 2024-07-26 14:45:00 2024-07-26 14:45:00 Group Tester Visit Pcp-Lab Manisha Norris Pcp-Lab [facility] 1.2.840.114 350.1.13.10 4.2.7.2.686 [id number] [facility] 2024-07-26 14:15:00 2024-07-26 14:15:00 Office Visit Manisha Norris [facility] 1.2.840.114 350.1.13.10 4.2.7.2.686 [id number] 086 [id number] [facility] 2024-07-26 14:15:00 2024-07-26 14:03:33 Outpatient R MANISHA NORRIS LAURA [facility] [id number] [facility] 2024-07-19 00:00:00 2024-07-19 11:44:10 Specialty Pharmacy Monica Sanford Shatara E [facility] 1.2840.114 350.1.13.10 4.2.7.2.686 [id number] 016 [id number] [facility] 2024-06-05 00:00:00 2024-07-06 18:15:00 Patient Secure Msg Doctor Unassigned, [place] Doctor Unassigned, [place] [facility] 1.2840.114 350.1.13.10 4.2.7.2.686 [id number] 019 [id number] [facility] 2024-06-06 00:00:00 2024-06-06 16:09:53 Specialty Pharmacy Patrica Madrigal Ashley M [facility] 1.2.840.114 350.1.13.10 4.2.7.2.686 [id number] 016 [id number] [facility] 2024-06-06 15:40:00 2024-06-06 15:40:00 Outpatient R JANEL SNOW [facility] [id number] [facility] 2024-06-05 00:00:00 2024-06-05 17:33:50 Letter (Out) [facility] ([place] 1.2.840.114 350.1.13.10 4.2.7.2.686 [id number] 019 [id number] [facility] 2024-05-27 13:00:00 2024-05-27 13:00:00 Outpatient Tere AYONVeraBABITA [facility] [id number] [facility] 2024-05-22 00:00:00 2024-05-23 07:54:28 Manisha Wisdom [facility] 1.2.840.114 350.1.13.10 4.2.7.2.686 [id number] 086 [id number] [facility] 2024-05-12 00:00:00 2024-05-14 07:32:42 Patient Secure Msg Saldana [facility] 1.2.840.114 350.1.13.10 4.2.7.2.686 [id number] 044 [id number] [facility] 2024-04-29 00:00:00 2024-05-07 10:44:58 Patient Secure Msg Saldana [facility] 1.2.840.114 350.1.13.10 4.2.7.2.686 [id number] 044 [id number] [facility] 2024-04-29 00:00:00 2024-04-29 12:26:01 Letter (Out) [facility] ([place] 1.2.840.114 350.1.13.10 4.2.7.2.686 [id number] 019 [id number] [facility] 2024-04-26 00:00:00 2024-04-29 08:19:29 Patient Secure Babita Pimentel [facility] 1.2840.114 350.1.13.10 4.2.7.2.686 [id number] 044 [id number] [facility] 2024-04-24 00:00:00 2024-04-24 10:07:04 Specialty Pharmacy Franko Rosado James L [facility] 1.2840.114 350.1.13.10 4.2.7.2.686 [id number] 086 [id number] [facility] 2024-04-23 16:00:00 2024-04-23 16:15:00 Group Tester Visit Pcp-Lab Manisha Norris Pcp-Lab [facility] 1.2840.114 350.1.13.10 4.2.7.2.686 [id number] [facility] 2024-04-23 15:15:00 2024-04-23 15:52:22 Outpatient MANISHA ALONZO LAURA [facility] [id number] [facility] 2024-04-23 15:15:00 2024-04-23 15:52:22 Office Visit Manisha Norris [facility] 1.2840.114 350.1.13.10 4.2.7.2.686 [id number] 086 [id number] [facility] 2024-04-11 00:00:00 2024-04-11 11:06:51 Specialty Pharmacy Monica Sanford Shatara E [facility] 1.2.840.114 350.1.13.10 4.2.7.2.686 [id number] 016 [id number] [facility] 2024-04-05 13:15:00 2024-04-05 13:15:00 Outpatient MANISHA ALONZO LAURA [facility] [id number] [facility] 2024-03-28 00:00:00 2024-03-28 23:59:59 Outpatient Encounter for "check-up" (procedure ) EOCT EOCT [id number] 2024-03-09 00:00:00 2024-03-09 20:57:04 Specialty Pharmacy Leydi Vivar Monique [facility] 1.2.840.114 350.1.13.10 4.2.7.2.686 [id number] 016 [id number] [facility] 2024-02-20 00:00:00 2024-02-20 16:30:00 Emilie Galicia Sudha [facility] 1.2.840.114 350.1.13.10 4.2.7.2.686 [id number] 016 [id number] [facility] 2024-02-13 00:00:00 2024-02-15 08:02:56 Patient Secure Msg Manisha Norris [facility] 1.2.840.114 350.1.13.10 4.2.7.2.686 [id number] 086 [id number] [facility] 2024-02-13 00:00:00 2024-02-13 14:51:47 Refill Manisha Norris [facility] 1.2.840.114 350.1.13.10 4.2.7.2.686 [id number] 086 [id number] [facility] 2024-01-04 00:00:00 2024-02-10 18:26:21 Patient Secure Msg Doctor Unassigned, [place] [facility] 1.2840.114 350.1.13.10 4.2.7.2.686 [id number] 019 [id number] [facility] 2024-01-28 00:00:00 2024-01-31 09:46:41 Refill Manisha Norris [facility] 1.2840.114 350.1.13.10 4.2.7.2.686 [id number] 086 [id number] [facility] 2024-01-13 00:00:00 2024-01-15 09:45:02 Refill Janel Snow [facility] 1.2.840.114 350.1.13.10 4.2.7.2.686 [id number] 044 [id number] [facility] 2024-01-10 00:00:00 2024-01-12 11:08:17 Patient Secure Msg Sara Snowine Bonny [facility] 1.2.840.114 350.1.13.10 4.2.7.2.686 [id number] 044 [id number] [facility] 2024-01-05 11:15:00 2024-01-05 11:15:00 Office Visit Umberto Saul [facility] 1.2840.114 350.1.13.10 4.2.7.2.686 [id number] [facility] 2024-01-05 11:15:00 2024-01-05 10:11:58 Outpatient R UMBERTO SAUL CRAIG [facility] [id number] [facility] 2024-01-04 00:00:00 2024-01-04 15:58:08 Letter (Out) [facility] 1.2.840.114 350.1.13.10 4.2.7.2.686 [id number] 019 [id number] [facility] 2023-12-14 00:00:00 2024-01-03 14:10:05 Patient Secure Msg Manisha Norris [facility] 1.2.840.114 350.1.13.10 4.2.7.2.686 [id number] 086 [id number] [facility] 2023-12-25 00:00:00 2023-12-25 12:28:19 Telephone Emilie Peres [facility] ([facility]) 1.2.840.114 350.1.13.10 4.2.7.2.686 [id number] 016 [id number] [facility] 2023-12-22 11:15:00 2023-12-22 11:15:00 Office Visit Umberto Saul [facility] 1.2.840.114 350.1.13.10 4.2.7.2.686 [id number] [facility] 2023-12-22 11:15:00 2023-12-22 10:56:23 Outpatient R UMBERTO SAUL CRAIG [facility] [id number] [facility] 2023-12-19 14:53:22 2023-12-19 23:59:00 Hospital Encounter Janel Snow [facility] 1.2.840.114 350.1.13.10 4.2.7.2.686 [id number] [id number] [facility] 2023-12-19 14:52:30 2023-12-19 14:52:30 Hospital Encounter Janel Snow [facility] 1.2.840.114 350.1.13.10 4.2.7.2.686 [id number] [id number] [facility] 2023-12-19 14:51:13 2023-12-19 14:51:13 Outpatient R JANEL SNOW [facility] [id number] [facility] 2023-12-19 14:51:13 2023-12-19 14:51:13 Hospital Encounter Janel Snow [facility] 1.2.840.114 350.1.13.10 4.2.7.2.686 [id number] [id number] [facility] 2023-12-19 14:20:00 2023-12-19 14:40:00 Office Visit Gwendolyn , [facility] 1.2.840.114 350.1.13.10 4.2.7.2.686 [id number] 044 [id number] [facility] 2023-11-27 00:00:00 2023-11-29 17:53:54 Telephone Peres [facility] ([facility]) 1.2.840.114 350.1.13.10 4.2.7.2.686 [id number] 016 [id number] [facility] 2023-11-29 00:00:00 2023-11-29 10:18:43 Telephone Franko Rosado [facility] 1.2.840.114 350.1.13.10 4.2.7.2.686 [id number] 086 [id number] [facility] 2023-11-02 00:00:00 2023-11-02 00:00:00 Telephone Ja [facility] ([facility]) 1.2.840.114 350.1.13.10 4.2.7.2.686 [id number] 016 [id number] [facility] 2023-11-02 00:00:00 2023-11-02 00:00:00 Telephone Ja [facility] ([facility]) 1.2.840.114 350.1.13.10 4.2.7.2.686 [id number] 016 [id number] [facility] 2023-10-25 00:00:00 2023-10-25 00:00:00 Manisha Wisdom [facility] 1.2.840.114 350.1.13.10 4.2.7.2.686 [id number] 086 [id number] [facility] 2023-10-23 00:00:00 2023-10-23 00:00:00 Refill Gwendolyn Janel Bonny [facility] 1.0.114 350.1.13.10 4.2.7.2.686 [id number] 044 [id number] [facility] 2023-10-10 14:00:00 2023-10-10 14:00:00 Outpatient R BELTRAN-ALEX S, RIVKA BELTRAN-ALEX S, RIVKA [facility] [id number] [facility] 2023-10-06 13:15:00 2023-10-06 13:15:00 Outpatient R MANISHA NORRIS LAURA [facility] [id number] [facility] 2023-09-29 16:15:00 2023-10-02 13:54:00 Outpatient R MANISHA NORRIS LAURA [facility] [id number] [facility] 2023-09-29 16:15:00 2023-09-29 16:45:00 Office Visit Manisha Norris [facility] 1.114 350.1.13.10 4.2.7.2.686 [id number] 086 [id number] [facility] 2023-09-26 00:00:00 2023-09-26 00:00:00 Telephone Janel Snow Bonny [facility] 1.114 350.1.13.10 4.2.7.2.686 [id number] 044 [id number] [facility] 2023-09-26 00:00:00 2023-09-26 00:00:00 Orders Only Doctor Unassigned, [place] [facility] 1..114 350.1.13.10 4.2.7.2.686 [id number] 009 [id number] [facility] 2023-09-25 16:30:00 2023-09-25 16:30:00 Office Visit BeltranJinAlex evelina [facility] 1.2840.114 350.1.13.10 4.2.7.2.686 [id number] [facility] 2023-09-25 16:30:00 2023-09-25 16:09:34 Outpatient R BELTRANJinALEX Evelina, RIVKA BELTRANJinALEX S, RIVKA [facility] [id number] [facility] 2023-09-20 00:00:00 2023-09-20 00:00:00 Patient Secure Msg Doctor Unassigned, [place] [facility] 1.2840.114 350.1.13.10 4.2.7.2.686 [id number] [facility] 2023-09-20 00:00:00 2023-09-20 00:00:00 Patient Secure Msg Doctor Unassigned, [place] [facility] 1.2840.114 350.1.13.10 4.2.7.2.686 [id number] 220 [id number] [facility] 2023-09-18 00:00:00 2023-09-18 00:00:00 Patient Secure Msg Janel Snow [facility] 1.2840.114 350.1.13.10 4.2.7.2.686 [id number] 044 [id number] [facility] 2023-09-18 00:00:00 2023-09-18 00:00:00 Patient Secure Msg Manisha Norris [facility] 1.2840.114 350.1.13.10 4.2.7.2.686 [id number] 086 [id number] [facility] 2023-08-29 00:00:00 2023-08-29 00:00:00 Telephone Emilie Peres [facility] ([facility]) 1.2.840.114 350.1.13.10 4.2.7.2.686 [id number] 016 [id number] [facility] 2023-08-09 00:00:00 2023-08-09 00:00:00 Orders Only Doctor Unassigned, [place] [facility] 1.2.840.114 350.1.13.10 4.2.7.2.686 [id number] 009 [id number] [facility] 2023-08-03 00:00:00 2023-08-03 00:00:00 Refill Franko Thakur [facility] 1.2840.114 350.1.13.10 4.2.7.2.686 [id number] 044 [id number] [facility] 2023-07-30 00:00:00 2023-07-30 00:00:00 Patient Secure Msg Janel Snow [facility] 1.2840.114 350.1.13.10 4.2.7.2.686 [id number] 044 [id number] [facility] 2023-07-28 11:30:00 2023-07-28 11:30:00 Outpatient RIKVA CARREON MARISOL [facility] [id number] [facility] 2023-07-14 00:00:00 2023-07-14 00:00:00 Outpatient Amanda Cervantes [facility] [id number] [facility] 2023-07-06 00:00:00 2023-07-06 00:00:00 Patient Secure Msg Manisha Norris [facility] 1.2840.114 350.1.13.10 4.2.7.2.686 [id number] 086 [id number] [facility] 2023-07-04 00:00:00 2023-07-04 00:00:00 Patient Secure Msg Manisha Norris [facility] 1.2.840.114 350.1.13.10 4.2.7.2.686 [id number] 086 [id number] [facility] 2023-07-04 00:00:00 2023-07-04 00:00:00 Refill Manisha Norris [facility] 1.2.840.114 350.1.13.10 4.2.7.2.686 [id number] 086 [id number] [facility] 2023-06-26 00:00:00 2023-06-26 00:00:00 Patient Secure Msg Doctor Unassigned, [place] [facility] 1..840.114 350.1.13.10 4.2.7.2.686 [id number] [facility] 2023-06-14 16:28:25 2023-06-14 23:59:00 Hospital Encounter Janel Snow [facility] 1..840.114 350.1.13.10 4.2.7.2.686 [id number] 809 [id number] [facility] 2023-06-14 15:40:00 2023-06-14 16:19:45 Outpatient R JANEL SNOW [facility] [id number] [facility] 2023-06-14 15:40:00 2023-06-14 16:19:45 Office Visit Janel Snow [facility] 1.2.840.114 350.1.13.10 4.2.7.2.686 [id number] 044 [id number] [facility] 2023-06-12 13:30:00 2023-06-12 13:30:00 Outpatient FRANKO SMITH [facility] [id number] [facility] 2023-05-30 00:00:00 2023-05-30 00:00:00 Orders Only Doctor Unassigned, [place] [facility] 1.2.840.114 350.1.13.10 4.2.7.2.686 [id number] [id number] [facility] 2023-05-27 00:00:00 2023-05-27 00:00:00 Patient Secure g Manisha Norris Geoffrey [facility] 1.2.840.114 350.1.13.10 4.2.7.2.686 [id number] 086 [id number] [facility] 2023-05-22 00:00:00 2023-05-22 00:00:00 Patient Secure Manisha Pathak [facility] 1.2.840.114 350.1.13.10 4.2.7.2.686 [id number] 086 [id number] [facility] 2023-05-21 00:00:00 2023-05-21 00:00:00 Patient Secure g Manisha Norris [facility] 1.2.840.114 350.1.13.10 4.2.7.2.686 [id number] [facility] 2023-05-03 00:00:00 2023-05-03 00:00:00 Outpatient JANEL CARLOS [facility] [id number] [facility] 2023-05-01 00:00:00 2023-05-01 00:00:00 David Rogers [facility] 1.2.840.114 350.1.13.10 4.2.7.2.686 [id number] [id number] [facility] 2023-05-01 00:00:00 2023-05-01 00:00:00 Patient Secure Msg Manisha Norris [facility] 1.840.114 350.1.13.10 4.2.7.2.686 [id number] [id number] [facility] 2023-04-13 00:00:00 2023-04-13 00:00:00 [facility]phone [facility] 1.2840.114 350.1.13.10 4.2.7.2.686 [id number] [facility] 2023-04-10 00:00:00 2023-04-10 00:00:00 Telephone Janel Snow [facility] 1.2840.114 350.1.13.10 4.2.7.2.686 [id number] [id number] [facility] 2023-04-04 14:15:00 2023-04-04 14:30:00 Group Tester Visit Pcp-Lab Manisha Norris [facility] 1.0.114 350.1.13.10 4.2.7.2.686 [id number] [facility] 2023-04-04 14:15:00 2023-04-04 14:15:00 Outpatient R MANISHA NORRIS LAURA [facility] [id number] [facility] 2023-04-04 13:45:00 2023-04-04 14:06:20 Office Visit Manisha Norris [facility] 1.840.114 350.1.13.10 4.2.7.2.686 [id number] [id number] [facility] 2023-04-04 00:00:00 2023-04-04 00:00:00 Orders Only Doctor Unassigned, [place] [facility] 1.2840.114 350.1.13.10 4.2.7.2.686 [id number] [facility] 2023-04-04 00:00:00 2023-04-04 00:00:00 Patient Secure Manisha Pathak [facility] 1.2.840.114 350.1.13.10 4.2.7.2.686 [id number] [id number] [facility] 2023-03-23 00:00:00 2023-03-23 00:00:00 Manisha Wisdom [facility] 1.2.840.114 350.1.13.10 4.2.7.2.686 [id number] [id number] [facility] 2023-03-23 00:00:00 2023-03-23 00:00:00 Manisha Wisdom [facility] 1.2.840.114 350.1.13.10 4.2.7.2.686 [id number] [id number] [facility] 2023-03-21 00:00:00 2023-03-21 00:00:00 Telephone Janel Snow [facility] 1.2840.114 350.1.13.10 4.2.7.2.686 [id number] [id number] [facility] 2023-02-28 00:00:00 2023-02-28 00:00:00 Orders Only Doctor Unassigned, [place] [facility] 1.2840.114 350.1.13.10 4.2.7.2.686 [id number] [facility] 2023-01-18 13:00:00 2023-01-18 13:00:00 Outpatient FRANKO SMITH [facility] [id number] [facility] 2023-01-09 15:06:46 2023-01-09 23:59:00 Outpatient FRANKO SMITH [facility] [id number] [facility] 2023-01-09 15:00:00 2023-01-09 23:59:00 Hospital Encounter [facility] [facility] 1.2840.114 350.1.13.10 4.2.7.2.686 [id number] [id number] [facility] 2023-01-09 16:00:00 2023-01-09 16:26:29 Office Visit Rivka Solo [facility]ESS[facility] NAL BUILDING 1.2.840.114 350.1.13.10 4.2.7.2.686 [id number] [facility] 2023-01-04 00:00:00 2023-01-04 00:00:00 Telephone Janel Snow [facility] 1.2840.114 350.1.13.10 4.2.7.2.686 [id number] 044 [id number] [facility] 2023-01-03 11:15:00 2023-01-03 11:15:00 Outpatient R JANEL SNOW [facility] [id number] [facility] 2022-12-30 00:00:00 2022-12-30 00:00:00 Telephone Janel Snow [facility] 1.2840.114 350.1.13.10 4.2.7.2.686 [id number] 044 [id number] [facility] 2022-12-20 13:15:00 2022-12-20 13:45:00 Office Visit Manisha Norris [facility] 1.2840.114 350.1.13.10 4.2.7.2.686 [id number] [id number] [facility] 2022-12-20 13:15:00 2022-12-20 13:15:00 Outpatient R MANISHA NORRIS [facility] [id number] [facility] 2022-12-20 00:00:00 2022-12-20 00:00:00 Telephone Janel Snow [facility] 1.84.114 350.1.13.10 4.2.7.2.686 [id number] 044 [id number] [facility] 2022-12-16 00:00:00 2022-12-16 00:00:00 Orders Only Doctor Unassigned, [place] [facility] 1..114 350.1.13.10 4.2.7.2.686 [id number] 009 [id number] [facility] 2022-12-14 12:48:38 2022-12-14 23:59:00 Hospital Encounter Aram [facility] 1..114 350.1.13.10 4.2.7.2.686 [id number] [facility] 2022-12-14 12:48:14 2022-12-14 23:59:00 Outpatient R [facility]AM [facility] [id number] [facility] 2022-12-14 12:48:14 2022-12-14 23:59:00 Hospital Encounter Aram [facility] 1..114 350.1.13.10 4.2.7.2.686 [id number] [facility] 2022-12-08 10:45:00 2022-12-08 11:00:00 Group Tester Visit Lab, Guilherme - Janel Ng [facility] 1.84.114 350.1.13.10 4.2.7.2.686 [id number] [facility] 2022-12-08 09:40:00 2022-12-08 10:34:05 Outpatient R JANEL SNOW [facility] [id number] [facility] 2022-12-08 09:40:00 2022-12-08 10:34:05 Office Visit Janel Snow [facility] 1.2840.114 350.1.13.10 4.2.7.2.686 [id number] 044 [id number] [facility] 2022-11-30 00:00:00 2022-11-30 00:00:00 RefManisha Whatley [facility] 1.2.840.114 350.1.13.10 4.2.7.2.686 [id number] 086 [id number] [facility] 2022-11-21 00:00:00 2022-11-21 00:00:00 RefManisha Whatley [facility] 1.2.840.114 350.1.13.10 4.2.7.2.686 [id number] 086 [id number] [facility] 2022-11-15 00:00:00 2022-11-15 00:00:00 Telephone Umberto Saul [facility] 1.2840.114 350.1.13.10 4.2.7.2.686 [id number] [facility] 2022-11-14 00:00:00 2022-11-14 00:00:00 Orders Only Doctor Unassigned, [place] [facility] 1.2840.114 350.1.13.10 4.2.7.2.686 [id number] 009 [id number] [facility] 2022-10-24 14:05:22 2022-10-24 23:59:00 Outpatient R MANISHA NORRIS [facility] [id number] [facility] 2022-10-24 14:05:22 2022-10-24 23:59:00 Hospital Encounter Manisha Norris [facility] 1.2.840.114 350.1.13.10 4.2.7.2.686 [id number] [facility] 2022-10-24 00:00:00 2022-10-24 00:00:00 Orders Only Doctor Unassigned, [place] [facility] 1.2.840.114 350.1.13.10 4.2.7.2.686 [id number] 009 [id number] [facility] 2022-10-13 15:00:00 2022-10-13 15:44:45 Outpatient R BABITA SALDANA [facility] [id number] [facility] 2022-10-13 15:00:00 2022-10-13 15:44:45 Office Visit Jeane Rasmussen, [facility] 1.2.840.114 350.1.13.10 4.2.7.2.686 [id number] 044 [id number] [facility] 2022-10-13 00:00:00 2022-10-13 00:00:00 Telephone Aram Rosales [facility] 1.2.840.114 350.1.13.10 4.2.7.2.686 [id number] 134 [id number] [facility] 2022-10-12 00:00:00 2022-10-12 00:00:00 Telephone Rosales Chiu [facility] 1.2.840.114 350.1.13.10 4.2.7.2.686 [id number] 134 [id number] [facility] 2022-10-11 00:00:00 2022-10-11 00:00:00 Refill Manisha Norris [facility] 1.2.840.114 350.1.13.10 4.2.7.2.686 [id number] 086 [id number] [facility] 2022-10-07 14:15:00 2022-10-07 14:30:00 Group Tester Visit Pcp-Lab Manisha Norris [facility] 1.2840.114 350.1.13.10 4.2.7.2.686 [id number] [facility] 2022-10-07 13:45:00 2022-10-07 13:56:24 Outpatient R MANISHA NORRIS [facility] [id number] [facility] 2022-10-07 13:45:00 2022-10-07 13:56:24 Office Visit Manisha Norris [facility] 1.0.114 350.1.13.10 4.2.7.2.686 [id number] 086 [id number] [facility] 2022-10-07 00:00:00 2022-10-07 00:00:00 [facility] 1.0.114 350.1.13.10 4.2.7.2.686 [id number] 134 [id number] [facility] 2022-10-05 13:30:00 2022-10-05 14:14:44 Outpatient R ARAM [facility] [id number] [facility] 2022-10-05 13:30:00 2022-10-05 14:14:44 Office Visit Aram [facility] PROFESSIO NAL BUILDING 1.840.114 350.1.13.10 4.2.7.2.686 [id number] 134 [id number] [facility] 2022-10-05 00:00:00 2022-10-05 00:00:00 Orders Only Doctor Unassigned, [place] [facility] 1.840.114 350.1.13.10 4.2.7.2.686 [id number] [id number] [facility] 2022-10-03 15:00:00 2022-10-03 15:00:00 Outpatient R CHRISTOPHER, LICO WHITE, LICO [facility] [id number] [facility] 2022-09-23 00:00:00 2022-09-23 00:00:00 Orders Only Doctor Unassigned, [place] [facility] 1.2840.114 350.1.13.10 4.2.7.2.686 [id number] [id number] [facility] 2022-09-15 00:00:00 2022-09-15 00:00:00 Patient Secure g Ofe [facility] [place] 1.2.840.114 350.1.13.10 4.2.7.2.686 [id number] 044 [id number] [facility] 2022-09-13 00:00:00 2022-09-13 00:00:00 Patient Secure Msg Franko Thakur [facility] [place] 1.2.840.114 350.1.13.10 4.2.7.2.686 [id number] 044 [id number] [facility] 2022-09-12 00:00:00 2022-09-12 00:00:00 Patient Secure g Ofe [facility] [place]?[facility] 1.2840.114 350.1.13.10 4.2.7.2.686 [id number] 044 [id number] [facility] 2022-09-06 00:00:00 2022-09-06 00:00:00 Telephone Ofe [facility] [place] 1.2.840.114 350.1.13.10 4.2.7.2.686 [id number] 044 [id number] [facility] 2022-09-06 00:00:2022-09-06 00:00:00 Patient Secure Msg Franko Thakur [facility] 1.2.840.114 350.1.13.10 4.2.7.2.686 [id number] 044 [id number] [facility] 2022-08-31 14:30:00 2022-08-31 14:30:00 Outpatient ROSALES GUZMAN [facility] [id number] [facility] 2022-08-30 00:00:00 2022-08-30 00:00:00 Orders Only Doctor Unassigned, [place] [facility] 1.2840.114 350.1.13.10 4.2.7.2.686 [id number] [id number] [facility] 2022-08-24 00:00:00 2022-08-24 00:00:00 Manisha Wisdom [facility] 1.2.840.114 350.1.13.10 4.2.7.2.686 [id number] 086 [id number] [facility] 2022-07-20 09:30:00 2022-07-20 09:45:00 Office Visit Franko Thakur [facility] 1.2.840.114 350.1.13.10 4.2.7.2.686 [id number] 044 [id number] [facility] 2022-07-20 09:30:00 2022-07-20 09:30:50 Outpatient R [facility]E [facility] [id number] [facility] 2022-07-07 00:00:00 2022-07-07 00:00:00 Orders Only Doctor Unassigned, [place] [facility] 1.2840.114 350.1.13.10 4.2.7.2.686 [id number] [id number] [facility] 2022-06-30 00:00:00 2022-06-30 00:00:00 Telephone [facility] OFF[facility] 1.2.840.114 350.1.13.10 4.2.7.2.686 [id number] 198 [id number] [facility] 2022-06-27 00:00:00 2022-06-27 00:00:00 Telephone Umberto Saul [facility] [place] 1.2.840.114 350.1.13.10 4.2.7.2.686 [id number] 198 [id number] [facility] 2022-06-24 00:00:00 2022-06-24 00:00:00 Telephone [facility]mberto [facility] OFF[facility] BUILD[facility] 1.2.840.114 350.1.13.10 4.2.7.2.686 [id number] 044 [id number] [facility] 2022-06-23 00:00:00 2022-06-23 00:00:00 Orders Only Doctor Unassigned, [place] [facility] 1.2.840.114 350.1.13.10 4.2.7.2.686 [id number] 009 [id number] [facility] 2022-06-21 00:00:00 2022-06-21 00:00:00 Patient Secure Msg Doctor Unassigned, [place] [facility] 1.2.840.114 350.1.13.10 4.2.7.2.686 [id number] 019 [id number] [facility] 2022-06-15 14:20:00 2022-06-15 14:20:00 Outpatient SUNIL TERESA [facility] [id number] [facility] 2022-06-14 16:15:00 2022-06-14 16:15:00 Office Visit Rosales Chiu [facility] NAL BUILDING 1.2840.114 350.1.13.10 4.2.7.2.686 [id number] 134 [id number] [facility] 2022-06-14 16:15:00 2022-06-14 13:57:54 Outpatient R ROSALES CHIU [facility] [id number] [facility] 2022-06-14 00:00:00 2022-06-14 00:00:00 Telephone Rosales Chiu [facility] BU[facility] 1.2.840.114 350.1.13.10 4.2.7.2.686 [id number] 134 [id number] [facility] 2022-06-02 00:00:00 2022-06-02 00:00:00 Orders Only Doctor Unassigned, [place] [facility] 1.840.114 350.1.13.10 4.2.7.2.686 [id number] 009 [id number] [facility] 2022-05-30 00:00:00 2022-05-30 00:00:00 Telephone Umberto Saul [facility] 1..840.114 350.1.13.10 4.2.7.2.686 [id number] [facility] 2022-05-11 00:00:00 2022-05-11 00:00:00 Orders Only Doctor Unassigned, [place] [address].840.114 350.1.13.10 4.2.7.2.686 [id number] 009 [id number] [facility] 2022-05-03 00:00:00 2022-05-03 00:00:[address] [facility] 1.2.840.114 350.1.13.10 4.2.7.2.686 [id number] [facility] 2022-04-28 00:00:00 2022-04-28 00:00:00 Orders Only Doctor Unassigned, [place] [facility] 1.2.840.114 350.1.13.10 4.2.7.2.686 [id number] 009 [id number] [facility] 2022-04-26 00:00:00 2022-04-26 00:00:00 Telephone [facility] 1.2840.114 350.1.13.10 4.2.7.2.686 [id number] 085 [id number] [facility] 2022-04-12 00:00:00 2022-04-12 00:00:00 Orders Only Doctor Unassigned, [place] [facility] 1.2840.114 350.1.13.10 4.2.7.2.686 [id number] 009 [id number] [facility] 2022-04-11 00:00:00 2022-04-11 00:00:00 Telephone Franko Thakur [facility] 1.2840.114 350.1.13.10 4.2.7.2.686 [id number] 044 [id number] [facility] 2022-04-08 14:45:00 2022-04-08 15:00:00 Group Tester Visit Pcp-Lab Manisha Norris [facility] 1.2840.114 350.1.13.10 4.2.7.2.686 [id number] [facility] 2022-04-08 13:45:00 2022-04-08 14:35:25 Outpatient R MANISHA NORRIS [facility] [id number] [facility] 2022-04-08 13:45:00 2022-04-08 14:35:25 Office Visit Manisha Norris [facility] 1.2840.114 350.1.13.10 4.2.7.2.686 [id number] 086 [id number] [facility] 2022-04-08 13:45:00 2022-04-08 13:45:00 Outpatient MANISHA ALONZO [facility] [id number] [facility] 2022-04-08 13:45:00 2022-04-08 13:45:00 Outpatient MANISHA ALONZO [facility] [id number] [facility] 2022-04-08 13:45:00 2022-04-08 13:45:00 Outpatient MANISHA ALONZO [facility] [id number] [facility] 2022-04-08 13:45:00 2022-04-08 13:45:00 Outpatient MANISHA ALONZO [facility] [id number] [facility] 2022-04-08 13:45:00 2022-04-08 13:45:00 Outpatient MANISHA ALONZO [facility] [id number] [facility] 2022-04-04 00:00:00 2022-04-04 00:00:00 Orders Only Doctor Unassigned, [place] [address]840[address]114 350.1.13.10 4.2.7.2.686 [id number] 009 [id number] [facility] 2022-03-28 00:00:00 2022-03-28 00:00:00 Telephone Umberto Salu [facility] OFF[facility] 1.2.840.114 350.1.13.10 4.2.7.2.686 [id number] 198 [id number] [facility] 2022-03-25 00:00:00 2022-03-25 00:00:00 Refill Guerita Alonso [facility] 1..840.114 350.1.13.10 4.2.7.2.686 [id number] [facility] 2022-03-24 00:00:00 2022-03-24 00:00:00 Orders Only Doctor Unassigned, [place] [facility] 1.2.840.114 350.1.13.10 4.2.7.2.686 [id number] 009 [id number] [facility] 2022-03-22 00:00:00 2022-03-22 00:00:00 Patient Secure [facility]ales [facility] 1.2.840.114 350.1.13.10 4.2.7.2.686 [id number] 134 [id number] [facility] 2022-03-18 00:00:00 2022-03-18 00:00:00 Patient Secure g Manisha Norris [facility] 1.2.840.114 350.1.13.10 4.2.7.2.686 [id number] 086 [id number] [facility] 2022-03-17 13:00:00 2022-03-17 13:15:00 Office Visit Dixie Alanis [facility] 1.2.840.114 350.1.13.10 4.2.7.2.686 [id number] [facility] 2022-03-17 13:00:00 2022-03-17 13:00:00 Outpatient DIXIE BENSNO [facility] [id number] [facility] 2022-03-15 00:00:00 2022-03-15 00:00:00 [facility] [id number] 2022-03-15 00:00:00 2022-03-15 00:00:00 Outpatient Tere [facility] [id number] [facility] 2022-03-15 00:00:00 2022-03-15 00:00:00 [facility] [id number] [facility] 2022-03-09 00:00:00 2022-03-09 00:00:00 Patient Secure Msg Dixie Alanis [facility] 1.2840.114 350.1.13.10 4.2.7.2.686 [id number] [facility] 2022-03-08 00:00:00 2022-03-08 00:00:00 Telephone Franko Thakur [facility] 1.2840.114 350.1.13.10 4.2.7.2.686 [id number] 044 [id number] [facility] 2022-03-08 00:00:00 2022-03-08 00:00:00 Orders Only Doctor Unassigned, [place] [facility] 1.2840.114 350.1.13.10 4.2.7.2.686 [id number] 009 [id number] [facility] 2022-03-07 00:00:00 2022-03-07 00:00:00 Orders Only Doctor Unassigned, [place] [facility] 1.2840.114 350.1.13.10 4.2.7.2.686 [id number] 009 [id number] [facility] 2022-03-04 00:00:00 2022-03-04 00:00:00 Patient Secure Msg Manisha Norris [facility] 1.2840.114 350.1.13.10 4.2.7.2.686 [id number] 086 [id number] [facility] 2022-03-04 00:00:00 2022-03-04 00:00:00 Orders Only Doctor Unassigned, [place] [facility] 1.2840.114 350.1.13.10 4.2.7.2.686 [id number] 009 [id number] [facility] 2022-03-03 00:00:00 2022-03-03 00:00:00 Patient Secure Msg Doctor Unassigned, [place] [facility] 1.114 350.1.13.10 4.2.7.2.686 [id number] 019 [id number] [facility] 2022-02-28 00:00:00 2022-02-28 00:00:00 Refill Annabelle [facility] 1.84114 350.1.13.10 4.2.7.2.686 [id number] 198 [id number] [facility] 2022-02-25 09:05:00 2022-02-25 23:59:00 Outpatient R ANNABELLE [facility] [id number] [facility] 2022-02-25 09:05:00 2022-02-25 23:59:00 Outpatient R ANNABELLE [facility] [id number] [facility] 2022-02-25 09:30:00 2022-02-25 09:45:00 Office Visit Annabelle [facility] 1.84114 350.1.13.10 4.2.7.2.686 [id number] [facility] 2022-02-25 09:30:00 2022-02-25 09:30:00 Outpatient R ANNABELLE [facility] [id number] [facility] 2022-02-24 00:00:00 2022-02-24 00:00:00 Telephone Umberto Saul [facility] 1.84.114 350.1.13.10 4.2.7.2.686 [id number] 198 [id number] [facility] 2022-02-20 00:00:00 2022-02-20 00:00:00 Refill Franko Thakur [facility] 1.84114 350.1.13.10 4.2.7.2.686 [id number] 044 [id number] [facility] 2022-02-15 00:00:00 2022-02-15 00:00:00 Orders Only Doctor Unassigned, [place] [facility] 1.0.114 350.1.13.10 4.2.7.2.686 [id number] [facility] 2022-02-14 14:40:00 2022-02-14 23:59:00 Outpatient Tere ALANIS [facility] [id number] [facility] 2022-02-14 14:40:00 2022-02-14 23:59:00 Outpatient Tere ALANIS [facility] [id number] [facility] 2022-02-14 14:40:00 2022-02-14 23:59:00 Outpatient Tere ALAN[facility] [id number] [facility] 2022-02-14 14:00:00 2022-02-14 15:49:45 Outpatient Tere AL[facility] [id number] [facility] 2022-02-14 14:00:00 2022-02-14 15:49:45 Office Visit Umberto Saul, [facility] 1.84.114 350.1.13.10 4.2.7.2.686 [id number] 198 [id number] [facility] 2022-02-14 00:00:00 2022-02-14 00:00:00 Orders Only Doctor Unassigned, [place] [facility] 1..114 350.1.13.10 4.2.7.2.686 [id number] 009 [id number] [facility] 2022-02-11 00:00:00 2022-02-11 00:00:00 Orders Only Doctor Unassigned, [place] [facility] 1.0.114 350.1.13.10 4.2.7.2.686 [id number] 009 [id number] [facility] 2022-02-09 00:00:00 2022-02-09 00:00:00 [facility] 1.2.840.114 350.1.13.10 4.2.7.2.686 [id number] 044 [id number] [facility] 2022-02-08 00:00:00 2022-02-08 00:00:00 Telephone Franko [facility]ur [facility] 1.2.840.114 350.1.13.10 4.2.7.2.686 [id number] 044 [id number] [facility] 2022-02-08 00:00:00 2022-02-08 00:00:00 Telephone Umberto Saul [facility] 1.2.840.114 350.1.13.10 4.2.7.2.686 [id number] [facility] 2022-02-07 13:30:00 2022-02-07 13:30:00 Outpatient DIXIE BENSON [facility] [id number] [facility] 2022-02-07 13:30:00 2022-02-07 13:30:00 Outpatient IDXIE BENSON [facility] [id number] [facility] 2022-02-07 13:30:00 2022-02-07 13:30:00 Outpatient DIXIE BENSON [facility] [id number] [facility] 2022-02-07 13:30:00 2022-02-07 13:30:00 Outpatient DIXIE BENSON [facility] [id number] [facility] 2022-02-07 13:30:00 2022-02-07 13:30:00 Outpatient DIXIE BENSON [facility] [id number] [facility] 2022-02-07 00:00:00 2022-02-07 00:00:00 Franko Nguyễn [facility] 1.84.114 350.1.13.10 4.2.7.2.686 [id number] [facility] 2022-02-07 00:00:00 2022-02-07 00:00:00 Telephone Saul Umberto Thomas [facility] 1..114 350.1.13.10 4.2.7.2.686 [id number] [facility] 2022-02-06 00:00:00 2022-02-06 00:00:00 Orders Only Doctor Unassigned, [place] [facility] 1.0.114 350.1.13.10 4.2.7.2.686 [id number] [facility] 2022-02-03 00:00:00 2022-02-03 00:00:00 Telephone Umberto Saul Martha [facility] 1.840.114 350.1.13.10 4.2.7.2.686 [id number] [facility] 2022-02-01 00:00:00 2022-02-01 00:00:00 Transition of Care Kasandra Portillo 1.84.114 350.1.13.10 4.2.7.2.686 [id number] [facility] 2022-02-01 00:00:00 2022-02-01 00:00:00 Telephone Umberto Saul [facility] 1.284.114 350.1.13.10 4.2.7.2.686 [id number] [facility] 2022-01-31 07:00:00 2022-01-31 20:05:00 Outpatient R UMBERTO SAUL [facility] [id number] [facility] 2022-01-31 07:00:00 2022-01-31 20:05:00 Hospital Encounter Umberto Saul [facility] 1.114 350.1.13.10 4.2.7.2.686 [id number] [facility] 2022-01-31 07:00:00 2022-01-31 20:05:00 Outpatient R [facility]ERTO [facility] [id number] [facility] 2022-01-31 07:00:00 2022-01-31 20:05:00 Outpatient R UMBERTO [facility]UL [facility] [id number] [facility] 2022-01-31 07:00:00 2022-01-31 20:05:00 Outpatient R UMBERTO SAUL [facility] [id number] [facility] 2022-01-31 07:00:00 2022-01-31 20:05:00 Outpatient R UMBERTO SAUL [facility]OR [id number] [facility] 2022-01-31 09:34:00 2022-01-31 12:12:00 Anesthesia Event Dinh Phillips Fernando [facility] 1.114 350.1.13.10 4.2.7.2.686 [id number] [facility] 2022-01-31 09:45:00 2022-01-31 12:11:00 Surgery Umberto Saul [facility] 1.114 350.1.13.10 4.2.7.2.686 [id number] [facility] 2022-01-31 00:00:00 2022-01-31 00:00:00 Orders Only Doctor Unassigned, [place] [facility] 1.0.114 350.1.13.10 4.2.7.2.686 [id number] [facility] 2022-01-29 00:00:00 2022-01-29 00:00:00 Orders Only Doctor Unassigned, [place] [facility] 1.114 350.1.13.10 4.2.7.2.686 [id number] [id number] [facility] 2022-01-28 10:15:00 2022-01-28 10:30:00 Laboratory Only Only, Adc Test SaulUmberto kaplan Martha [facility] 1.114 350.1.13.10 4.2.7.2.686 [id number] [facility] 2022-01-28 10:15:00 2022-01-28 10:15:00 Outpatient R UMBERTO SAUL [facility] [id number] [facility] 2022-01-27 13:00:00 2022-01-27 16:30:58 Outpatient R UMBERTO SAUL [facility] [id number] [facility] 2022-01-27 13:00:00 2022-01-27 16:30:58 Outpatient R UMBERTO SAUL [facility] [id number] [facility] 2022-01-27 15:15:00 2022-01-27 15:30:00 Group Tester Visit Pob, Adc Lab Main SaulUmberto [facility] PROF[facility] 1..114 350.1.13.10 4.2.7.2.686 [id number] [facility] 2022-01-27 14:46:01 2022-01-27 14:48:00 Outpatient R UMBERTO SAUL [facility] [id number] [facility] 2022-01-27 14:00:00 2022-01-27 14:48:[address] [facility] 1.114 350.1.13.10 4.2.7.2.686 [id number] [facility] 2022-01-27 13:00:00 2022-01-27 13:45:00 Ancillary Visit Donna Lowry Craig L [facility]ILD[facility] 1.2.840.114 350.1.13.10 4.2.7.2.686 [id number] [facility] 2022-01-27 13:00:00 2022-01-27 13:00:00 Outpatient R UMBERTO SAUL [facility] [id number] [facility] 2022-01-27 00:00:00 2022-01-27 00:00:00 Orders Only Doctor Unassigned, [place] [facility] 1.840.114 350.1.13.10 4.2.7.2.686 [id number] [facility] 2022-01-13 00:00:00 2022-01-13 00:00:00 Prep For Surgery Umberto Saul [facility] 1.84.114 350.1.13.10 4.2.7.2.686 [id number] [facility] 2022-01-11 00:00:00 2022-01-11 00:00:00 Orders Only Doctor Unassigned, [place] [facility] 1..114 350.1.13.10 4.2.7.2.686 [id number] [id number] [facility] 2022-01-07 00:00:00 2022-01-07 00:00:00 Patient Secure Msg Mujica Buddy [facility] 1.84.114 350.1.13.10 4.2.7.2.686 [id number] [facility] 2022-01-05 11:26:51 2022-01-05 23:59:00 Outpatient MANISHA ALONZO [facility] [id number] [facility] 2022-01-05 11:26:51 2022-01-05 23:59:00 Outpatient MANISHA ALONOZ [facility] [id number] [facility] 2022-01-05 11:26:51 2022-01-05 23:59:00 Hospital Encounter Manisha Norris [facility] 1..840.114 350.1.13.10 4.2.7.2.686 [id number] [facility] 2022-01-05 11:26:51 2022-01-05 23:59:00 Outpatient MANISHA ALONZO [facility] [id number] [facility] 2022-01-05 11:26:51 2022-01-05 23:59:00 Outpatient MANISHA ALONZO [facility] [id number] [facility] 2022-01-05 11:15:00 2022-01-05 11:16:23 Outpatient MANISHA ALONZO [facility] [id number] [facility] 2022-01-05 11:15:00 2022-01-05 11:16:23 Office Visit Manisha Norris [facility] 1..840.114 350.1.13.10 4.2.7.2.686 [id number] [facility] 2022-01-05 11:15:00 2022-01-05 11:15:00 Outpatient MANISHA ALONZO [facility] [id number] [facility] 2022-01-03 14:00:00 2022-01-03 14:15:00 [facility] 1..840.114 350.1.13.10 4.2.7.2.686 [id number] [facility] 2022-01-03 14:00:00 2022-01-03 14:00:00 Outpatient DIXIE BENSON [facility] [id number] [facility] 2021-12-31 00:00:00 2021-12-31 00:00:00 Telephone Umberto Saul [facility] [place] 1.2.840.114 350.1.13.10 4.2.7.2.686 [id number] [facility] 2021-12-31 00:00:00 2021-12-31 00:00:00 [facility] 1..840.114 350.1.13.10 4.2.7.2.686 [id number] [facility] 2021-12-31 00:00:00 2021-12-31 00:00:00 Patient Secure Msg Doctor Unassigned, [place] [facility] 1.2.840.114 350.1.13.10 4.2.7.2.686 [id number] [facility] 2021-12-30 00:00:00 2021-12-30 00:00:00 Patient Secure Msg [facility] 1.2.840.114 350.1.13.10 4.2.7.2.686 [id number] [facility] 2021-12-30 00:00:00 2021-12-30 00:00:00 Patient Secure Msg Doctor Unassigned, [place] [facility] 1.2.840.114 350.1.13.10 4.2.7.2.686 [id number] [facility] 2021-12-29 15:49:46 2021-12-29 23:59:00 [facility] [id number] [facility] 2021-12-29 15:49:46 2021-12-29 23:59:00 [facility] [id number] [facility] 2021-12-15 14:20:00 2021-12-15 14:20:00 Office Visit Guanako [facility] PROFESSIO NAL BUILDING 1.840.114 350.1.13.10 4.2.7.2.686 [id number] [facility] 2021-12-15 14:20:00 2021-12-15 14:17:[address] [facility] [id number] [facility] 2021-12-15 14:20:00 2021-12-15 14:17:[address] [facility] [id number] [facility] 2021-12-07 10:15:00 2021-12-07 10:30:00 Office Visit Franko Thakur [facility] 1.84.114 350.1.13.10 4.2.7.2.686 [id number] [facility] 2021-12-07 10:15:00 2021-12-07 10:15:00 Outpatient R FRANKO THAKUR [facility] [id number] [facility] 2021-12-03 00:00:00 2021-12-03 00:00:00 Patient Secure Msg Faith Hall [facility] PROFESSIO NAL BUILDING 1.840.114 350.1.13.10 4.2.7.2.686 [id number] [facility] 2021-12-03 00:00:00 2021-12-03 00:00:00 Orders Only Doctor Unassigned, [place] [facility] 1.84.114 350.1.13.10 4.2.7.2.686 [id number] [facility] 2021-12-01 00:00:00 2021-12-01 00:00:00 Patient Secure Msg Chiu [facility] PROFESSIO NAL BUILDING 1.20.114 350.1.13.10 4.2.7.2.686 [id number] [facility] 2021-11-23 14:21:11 2021-11-23 23:59:00 Hospital Encounter Aram [facility] 1.20.114 350.1.13.10 4.2.7.2.686 [id number] [facility] 2021-11-23 00:00:00 2021-11-23 23:59:00 Outpatient Tere [facility] [id number] [facility] 2021-11-23 00:00:00 2021-11-23 23:59:00 [facility] [id number] 2021-11-23 14:00:00 2021-11-23 14:20:00 Hospital Encounter Aram [facility] 1.20.114 350.1.13.10 4.2.7.2.686 [id number] [facility] 2021-11-23 00:00:00 2021-11-23 14:20:00 Outpatient Tere [facility] [id number] [facility] 2021-11-23 00:00:00 2021-11-23 14:20:00 Outpatient Tere [facility] [id number] [facility] 2021-11-23 00:00:00 2021-11-23 00:00:00 Orders Only Doctor Unassigned, [place] [facility] 1.0.114 350.1.13.10 4.2.7.2.686 [id number] [facility] 2021-11-22 00:00:00 2021-11-22 00:00:00 Patient Secure Msg Franko Thakur [facility] [place] 1.2.840.114 350.1.13.10 4.2.7.2.686 [id number] 044 [id number] [facility] 2021-11-22 00:00:00 2021-11-22 00:00:00 Patient Secure Msg Franko Thakur [facility] [place]?[facility] 1.2840.114 350.1.13.10 4.2.7.2.686 [id number] 044 [id number] [facility] 2021-11-16 00:00:00 2021-11-16 00:00:00 Patient Secure Msg Doctor Unassigned, [place] [facility] 1.2840.114 350.1.13.10 4.2.7.2.686 [id number] [facility] 2021-11-08 00:00:00 2021-11-08 00:00:00 Patient Secure Msg Doctor Unassigned, [place] [facility] 1.2.840.114 350.1.13.10 4.2.7.2.686 [id number] [facility] 2021-11-05 11:00:00 2021-11-05 11:00:00 Office Visit Umberto Saul [facility] 1.2.840.114 350.1.13.10 4.2.7.2.686 [id number] [facility] 2021-11-05 11:00:00 2021-11-05 09:10:39 Outpatient R UMBERTO SAUL [facility] [id number] [facility] 2021-11-05 11:00:00 2021-11-05 09:10:39 Outpatient R UMBERTO SAUL [facility] [id number] [facility] 2021-11-05 11:00:00 2021-11-05 09:10:39 Outpatient R UMBERTO SAUL [facility] [id number] [facility] 2021-11-05 11:00:00 2021-11-05 09:10:39 Outpatient Tere SAUL [facility] [id number] [facility] 2021-11-02 00:00:00 2021-11-02 00:00:00 Telephone Manisha Norris [facility] 1.114 350.1.13.10 4.2.7.2.686 [id number] [id number] [facility] 2021-10-26 00:00:00 2021-10-26 00:00:00 Patient Secure Msg Manisha Norris [facility] 1.114 350.1.13.10 4.2.7.2.686 [id number] [facility] 2021-10-25 00:00:00 2021-10-25 00:00:00 Refill Manisha Norris [facility] 1.114 350.1.13.10 4.2.7.2.686 [id number] [id number] [facility] 2021-10-14 00:00:00 2021-10-14 00:00:00 Patient Secure Msg Doctor Unassigned, [place] [facility] 1.114 350.1.13.10 4.2.7.2.686 [id number] [facility] 2021-10-08 00:00:00 2021-10-08 00:00:00 Patient Secure Msg [facility] 1.114 350.1.13.10 4.2.7.2.686 [id number] [facility] 2021-10-07 00:00:00 2021-10-07 00:00:00 Telephone Manisha Norris [facility] 1.84.114 350.1.13.10 4.2.7.2.686 [id number] 086 [id number] [facility] 2021-10-07 00:00:00 2021-10-07 00:00:00 Telephone Franko Thakur [facility] L[facility] [place]?[facility] 1.840.114 350.1.13.10 4.2.7.2.686 [id number] [facility] 2021-10-05 12:04:52 2021-10-05 23:59:00 Outpatient MANISHA ALONZO [facility] [id number] [facility] 2021-10-05 12:04:52 2021-10-05 23:59:00 Hospital Encounter Manisha Norris [facility] 1.840.114 350.1.13.10 4.2.7.2.686 [id number] [facility] 2021-10-05 12:04:52 2021-10-05 23:59:00 Outpatient MANISHA ALONZO [facility] [id number] [facility] 2021-10-05 12:04:52 2021-10-05 23:59:00 Outpatient MANISHA ALONZO [facility] [id number] [facility] 2021-10-05 12:04:52 2021-10-05 23:59:00 Outpatient MANISHA ALONZO [facility] [id number] [facility] 2021-10-05 12:15:00 2021-10-05 12:30:00 Group Tester Visit Pcp-Lab Manisha Norris [facility] 1.2.840.114 350.1.13.10 4.2.7.2.686 [id number] [facility] 2021-10-05 12:15:00 2021-10-05 12:15:00 Outpatient R MANISHA NORRIS [facility] [id number] [facility] 2021-10-05 11:15:00 2021-10-05 11:50:24 Office Visit Manisha Norris [facility] 1.2.840.114 350.1.13.10 4.2.7.2.686 [id number] [id number] [facility] 2021-10-04 00:00:00 2021-10-04 00:00:00 Refill Manisha Norris [facility] 1.2.840.114 350.1.13.10 4.2.7.2.686 [id number] [id number] [facility] 2021-08-31 00:00:00 2021-08-31 00:00:00 [facility] 1.2.840.114 350.1.13.10 4.2.7.2.686 [id number] [facility] 2021-08-30 00:00:00 2021-08-30 00:00:00 Telephone Gavin [facility] BUILDING 1.2.840.114 350.1.13.10 4.2.7.2.686 [id number] [facility] 2021-08-24 11:30:00 2021-08-24 12:16:13 Office Visit Gavin [facility] 1.2.840.114 350.1.13.10 4.2.7.2.686 [id number] [facility] 2021-08-24 11:30:00 2021-08-24 12:16:13 Outpatient R GUERITA ALONSO [facility] [id number] [facility] 2021-08-24 11:30:00 2021-08-24 11:30:00 Outpatient R GUERITA ALONSO [facility] [id number] [facility] 2021-08-24 00:00:00 2021-08-24 00:00:00 Refill Manisha Norris [facility] 1.2.840.114 350.1.13.10 4.2.7.2.686 [id number] 086 [id number] [facility] 2021-08-13 00:00:00 2021-08-13 00:00:00 [facility] 1.2.840.114 350.1.13.10 4.2.7.2.686 [id number] [facility] 2021-07-28 10:40:00 2021-07-28 11:00:00 Office Visit [facility] 1.2840.114 350.1.13.10 4.2.7.2.686 [id number] [facility] 2021-07-28 10:40:00 2021-07-28 10:40:00 Outpatient R LEELA BONILLA STRAHIL [facility] [id number] [facility] 2021-07-28 10:40:00 2021-07-28 10:40:00 Outpatient R LEELA BONILLA STRAHIL [facility] [id number] [facility] 2021-07-28 00:00:00 2021-07-28 00:00:00 Orders Only Doctor Unassigned, [place] [facility] 1.2840.114 350.1.13.10 4.2.7.2.686 [id number] [facility] 2021-07-27 00:00:00 2021-07-27 00:00:00 Patient Secure Franko Mcrae [facility] 1.2.840.114 350.1.13.10 4.2.7.2.686 [id number] [facility] 2021-07-20 00:00:00 2021-07-20 00:00:00 Orders Only Doctor Unassigned, [place] [facility] 1.2.840.114 350.1.13.10 4.2.7.2.686 [id number] [facility] 2021-07-16 00:00:00 2021-07-16 00:00:00 Telephone Manisha Norris [facility] 1.2.840.114 350.1.13.10 4.2.7.2.686 [id number] [id number] [facility] 2021-07-13 00:00:00 2021-07-13 00:00:00 Telephone Manisha Norris [facility] 1.2.840.114 350.1.13.10 4.2.7.2.686 [id number] [id number] [facility] 2021-07-06 12:14:46 2021-07-06 23:59:00 Hospital Encounter Manisha Norris [facility] 1.2.840.114 350.1.13.10 4.2.7.2.686 [id number] [facility] 2021-07-06 13:45:00 2021-07-06 14:00:00 Group Tester Visit Pcp-Lab Manisha Norris [facility] 1.2.840.114 350.1.13.10 4.2.7.2.686 [id number] [facility] 2021-07-06 11:15:00 2021-07-06 12:04:47 Outpatient MANISHA ALONZO [facility] [id number] [facility] 2021-07-06 11:15:00 2021-07-06 12:04:47 Outpatient MANISHA ALONZO [facility] [id number] [facility] 2021-07-06 11:15:00 2021-07-06 12:04:47 Office Visit Manisha Norris [facility] 1..840.114 350.1.13.10 4.2.7.2.686 [id number] [id number] [facility] 2021-07-06 11:15:00 2021-07-06 11:15:00 Outpatient MANISHA ALONZO [facility] [id number] [facility] 2021-06-29 00:00:00 2021-06-29 00:00:00 Orders Only Doctor Unassigned, [place] [address].840.114 350.1.13.10 4.2.7.2.686 [id number] [facility] 2021-06-17 00:00:00 2021-06-17 00:00:00 Telephone Franko Thakur [facility] 1.2.840.114 350.1.13.10 4.2.7.2.686 [id number] [facility] 2021-06-17 00:00:00 2021-06-17 00:00:00 Orders Only Doctor Unassigned, [place] [facility] 1.2840.114 350.1.13.10 4.2.7.2.686 [id number] [facility] 2021-06-09 10:20:41 2021-06-09 23:59:00 Outpatient MANISHA ALONZO [facility] [id number] [facility] 2021-06-09 10:20:41 2021-06-09 23:59:00 Outpatient MANISHA ALONZO [facility] [id number] [facility] 2021-06-09 10:20:41 2021-06-09 23:59:00 Outpatient MANISHA ALONZO [facility] [id number] [facility] 2021-06-09 10:20:41 2021-06-09 23:59:00 Outpatient MANISHA ALONZO [facility] [id number] [facility] 2021-06-09 10:20:41 2021-06-09 23:59:00 Hospital Encounter Manisha Norris [facility] [place] 1.840.114 350.1.13.10 4.2.7.2.686 [id number] [facility] 2021-06-09 10:20:27 2021-06-09 23:59:00 Hospital Encounter Manisha Norris [facility] [place] 1.840.114 350.1.13.10 4.2.7.2.686 [id number] [facility] 2021-06-09 12:00:00 2021-06-09 12:00:00 Outpatient MANISHA ALONZO [facility] [id number] [facility] 2021-06-09 10:20:19 2021-06-09 10:35:19 Group Tester Visit Lab, Guilherme - Lambert Thakur Franko [facility] [place] 1..840.114 350.1.13.10 4.2.7.2.686 [id number] [facility] 2021-06-09 09:52:48 2021-06-09 10:07:48 Office Visit Ofe Franko [facility] [place] 1..840.114 350.1.13.10 4.2.7.2.686 [id number] [facility] 2021-06-09 10:00:00 2021-06-09 10:00:00 Outpatient FRANKO SMITH [facility] [id number] [facility] 2021-06-08 10:45:00 2021-06-08 11:40:22 Outpatient MANISHA ALONZO [facility] [id number] [facility] 2021-06-08 10:45:00 2021-06-08 11:40:22 Outpatient MANISHA ALONOZ [facility] [id number] [facility] 2021-06-08 10:30:31 2021-06-08 11:40:22 Office Visit Manisha Norris [facility] 1.840.114 350.1.13.10 4.2.7.2.686 [id number] [facility] 2021-06-08 10:45:00 2021-06-08 10:45:00 Outpatient MANISHA ALONZO [facility] [id number] [facility] 2021-06-08 00:00:00 2021-06-08 00:00:00 Telephone Franko Thakur [facility] [place]?[facility] 1..840.114 350.1.13.10 4.2.7.2.686 [id number] [facility] 2021-06-08 00:00:00 2021-06-08 00:00:00 Orders Only Doctor Unassigned, [place] [facility] 1.840.114 350.1.13.10 4.2.7.2.686 [id number] [facility] 2021-06-07 08:45:00 2021-06-07 08:45:00 Outpatient FRANKO SMITH [facility] [id number] [facility] 2021-06-04 00:00:00 2021-06-04 00:00:00 Patient Secure Msg Doctor Unassigned, [place] [facility] 1.840.114 350.1.13.10 4.2.7.2.686 [id number] [facility] 2021-05-25 14:30:47 2021-05-25 23:59:00 Hospital Encounter Rosales Chiu [facility] 1.2840.114 350.1.13.10 4.2.7.2.686 [id number] [facility] 2021-05-25 14:29:53 2021-05-25 14:29:53 Outpatient R [facility] [id number] [facility] 2021-05-25 14:29:53 2021-05-25 14:29:53 Hospital Encounter Rosales Chiu [facility] 1.2840.114 350.1.13.10 4.2.7.2.686 [id number] [facility] 2021-05-25 00:00:00 2021-05-25 00:00:00 [facility] 1.284.114 350.1.13.10 4.2.7.2.686 [id number] [facility] 2021-05-21 11:30:00 2021-05-21 11:30:00 Outpatient R [facility] [id number] [facility] 2021-05-21 11:30:00 2021-05-21 11:30:00 Outpatient R [facility] [id number] [facility] 2021-05-19 00:00:00 2021-05-19 00:00:00 Telephone Franko Thakur [facility] 1.2.840.114 350.1.13.10 4.2.7.2.686 [id number] [facility] 2021-05-04 00:00:00 2021-05-04 00:00:00 Telephone Teresa Dejesus [facility] 1.2.840.114 350.1.13.10 4.2.7.2.686 [id number] [facility] 2021-04-28 00:00:00 2021-04-28 00:00:00 Orders Only Doctor Unassigned, [place] [facility] 1.2.840.114 350.1.13.10 4.2.7.2.686 [id number] [facility] 2021-04-21 14:41:37 2021-04-21 15:01:37 Office Visit Leela Bonilla [facility] 1.2.840.114 350.1.13.10 4.2.7.2.686 [id number] [facility] 2021-04-21 15:00:00 2021-04-21 15:00:00 Outpatient R LEELA BONILLA STRAHIL [facility] [id number] [facility] 2021-04-07 19:30:00 2021-04-07 19:30:00 Outpatient R LEELA BONILLA STRAHIL [facility] [id number] [facility] 2021-04-07 14:08:40 2021-04-07 16:38:40 Group Tester Visit 1, [facility] Sleep Lab Bed Leela Bonilla [facility] 1.2.840.114 350.1.13.10 4.2.7.2.686 [id number] [facility] 2021-04-06 13:30:00 2021-04-06 14:54:02 Outpatient R ROSALES CHIU [facility] [id number] [facility] 2021-04-06 13:15:14 2021-04-06 13:45:14 Office Visit Rosales Chiu [facility] 1.2840.114 350.1.13.10 4.2.7.2.686 [id number] [facility] 2021-04-06 13:30:00 2021-04-06 13:30:00 Outpatient R ROSALES CHIU [facility] [id number] [facility] 2021-04-05 10:13:44 2021-04-05 10:28:44 Laboratory Only Only, Adc Test [facility] 1.2.840.114 350.1.13.10 4.2.7.2.686 [id number] [facility] 2021-04-05 10:13:44 2021-04-05 10:28:44 Laboratory Only Only, Adc Test [facility] 1.2840.114 350.1.13.10 4.2.7.2.686 [id number] [facility] 2021-04-05 10:15:00 2021-04-05 10:15:00 Outpatient R [facility] [id number] [facility] 2021-04-05 00:00:00 2021-04-05 00:00:00 Orders Only Doctor Unassigned, [place] [facility] 1.2840.114 350.1.13.10 4.2.7.2.686 [id number] [facility] 2021-04-05 00:00:00 2021-04-05 00:00:00 Orders Only Doctor Unassigned, [place] [facility] 1.2840.114 350.1.13.10 4.2.7.2.686 [id number] [facility] 2021-03-24 00:00:00 2021-03-24 00:00:00 [facility] 1.2.840.114 350.1.13.10 4.2.7.2.686 [id number] [facility] 2021-03-24 00:00:00 2021-03-24 00:00:00 Telephone Franko Thakur [facility]?Francisco smith [facility] 1.2.840.114 350.1.13.10 4.2.7.2.686 [id number] [facility] 2021-03-23 00:00:00 2021-03-23 00:00:00 Telephone Franko Thakur [facility]?Francisco montalvo Medical Office Building 1.284.114 350.1.13.10 4.2.7.2.686 [id number] [facility] 2021-03-10 14:29:05 2021-03-10 14:49:05 Office Visit Leela Bonilla [facility] Building 1.2.840.114 350.1.13.10 4.2.7.2.686 [id number] [facility] 2021-03-10 14:29:05 2021-03-10 14:49:05 Office Visit Leela Bonilla [facility] Building 1.2.840.114 350.1.13.10 4.2.7.2.686 [id number] [facility] 2021-03-10 14:40:00 2021-03-10 14:40:00 Outpatient R LEELA BONILLA STRAMIMartha [facility] [id number] [facility] 2021-03-10 00:00:00 2021-03-10 00:00:00 Patient Secure Guerita Savage [facility]?Yesenia selvin [facility] 1.2.840.114 350.1.13.10 4.2.7.2.686 [id number] [facility] 2021-03-09 10:00:00 2021-03-09 10:00:00 Outpatient R FRANKO THAKUR [facility] [id number] [facility] 2021-03-09 09:32:44 2021-03-09 09:47:44 Office [facility] Medical Office Building 1.2.840.114 350.1.13.10 4.2.7.2.686 [id number] [facility] 2021-03-08 00:00:00 2021-03-08 00:00:00 Patient Secure Msg [facility] 1..840.114 350.1.13.10 4.2.7.2.686 [id number] [facility] 2021-03-05 00:00:00 2021-03-05 00:00:00 Patient Secure Msg Alonso [facility] Medical Office Building 1.2.840.114 350.1.13.10 4.2.7.2.686 [id number] [facility] 2021-03-04 19:30:00 2021-03-04 19:30:00 Outpatient LEELA LOPEZ STRAHIL [facility] [id number] [facility] 2021-03-04 15:12:29 2021-03-04 17:42:29 Group Tester Visit 1, [facility] Sleep Lab Bed Leela Bonilla [facility] 1.2.840.114 350.1.13.10 4.2.7.2.686 [id number] [facility] 2021-03-04 00:00:00 2021-03-04 00:00:00 Orders Only Doctor Unassigned, [place] [facility] 1.2840.114 350.1.13.10 4.2.7.2.686 [id number] [facility] 2021-03-04 00:00:00 2021-03-04 00:00:00 Patient Secure Msg Gavin [facility] 1.2840.114 350.1.13.10 4.2.7.2.686 [id number] [facility] 2021-03-02 14:35:01 2021-03-02 14:50:01 Laboratory Only Only, Adc Test Yobani Anderson [facility] 1.2.840.114 350.1.13.10 4.2.7.2.686 [id number] [facility] 2021-03-02 14:30:00 2021-03-02 14:30:00 Outpatient R [facility] [id number] [facility] 2021 12:29:22 2021 12:44:22 Group Tester Visit Pob, [facility] 1.2840.114 350.1.13.10 4.2.7.2.686 [id number] [facility] 2021 10:58:32 2021 12:05:09 [facility] 1.2.840.114 350.1.13.10 4.2.7.2.686 [id number] [facility] 2021 10:58:32 2021 12:05:09 Office Visit [facility] 1.2.840.114 350.1.13.10 4.2.7.2.686 [id number] [facility] 2021 10:30:00 2021 12:05:[address] [facility] [id number] [facility] 2021 10:30:00 2021 10:30:[address] [facility] [id number] [facility] 2021 00:00:00 2021 00:00:00 Orders Only Doctor Unassigned, [place] [facility] 1.114 350.1.13.10 4.2.7.2.686 [id number] [facility] 2021-02-03 08:57:54 2021-02-03 09:17:54 Office Visit Leela Bonilla [facility] Building 1.84.114 350.1.13.10 4.2.7.2.686 [id number] [facility] 2021-02-03 09:00:00 2021-02-03 09:00:00 Outpatient R LEELA BONILLA STRAMIMartha [facility] [id number] [facility] 2021-02-02 09:10:37 2021-02-02 09:40:37 Office Visit Franko Thakur [facility] Office Building One .84.114 350.1.13.10 4.2.7.2.686 [id number] [facility] 2021-02-02 09:30:00 2021-02-02 09:30:00 Outpatient R FRANKO THAKUR [facility] [id number] [facility] 2021-02-02 00:00:00 2021-02-02 00:00:00 Orders Only Doctor Unassigned, [place] [facility] .84.114 350.1.13.10 4.2.7.2.686 [id number] [facility] 2021-02-01 13:30:00 2021-02-01 13:30:00 Outpatient FRANKO SMITH [facility] [id number] [facility] 2020-07-01 06:05:00 2020-07-01 16:15:00 Outpatient GARLAND CURRIE [facility] [address] [facility] 2020-05-28 12:12:00 2020-05-28 12:12:00 Outpatient 3 Andry Dinero [facility] [id number] [facility] 2020-05-28 12:12:00 2020-05-28 12:12:00 Outpatient 3 Andry Dinero [facility] [id number] [facility] Results Test Description Test Time Test Comments Results Result Comments Source XR Hips 3 vw left 21:45:31 EXAM: XR HIPS 3 VW LEFT HISTORY: L hip pain COMPARISON: Radiographs, 01/31/2022. FINDINGS: Radiographs of the left hip demonstrate no acute fracture or dislocation.There is a right total hip arthroplasty in anatomic alignment without acuteperiprosthetic fracture or lucency. There is moderate left hip jointosteoarthrosis slightly progressed. Diffuse osteopenia is noted. Noaggressive osseous lesion. No erosions or periosteal reaction. [facility] REFERRAL- REQUEST/RESPONSE 18:21:34 Ordered by an unspecified provider. [facility] HOME HEALTH - OTHER 18:20:22 Ordered by an unspecified provider. [facility] [id number] 20:35:51* Test Item Value Reference Range Interpretation Comme nts POCT Molecular FluA (test co de = 38761-9) Negative Negative POCT Molecular FluB (test co de = 96059-8) Negative Negative Lab Interpretation (test cod e = 35813-6) Normal [facility] MOLECULAR [id number] 20:18:28* Test Item Value Reference Range Interpretation Comme nts POCT Molecular Strep (test c ode = 89352-3) Negative Negative Lab Interpretation (test cod e = 17883-3) Normal [facility] [id number] 20:18:28* Test Item Value Reference Range Interpretation Comme nts POCT Molecular Strep (test c ode = 30101-9) Negative Negative Lab Interpretation (test cod e = 73245-9) Normal [facility] [id number] 15:04:14 [facility] 1965 Sex: FPatient: KIRILL [...] SamerSigned (Electronic Signature): 05/28/2020 3:04 pmIR Thyroid [id number] 15:04:14 [facility] : 1965 Sex: FPatient: KIRILL [...] Moraima, SamerSigned (Electronic Signature): 05/28/2020 3:04 pmPOC [id number] 12:43:26* Test Item Value Reference Range Interpretation Comme nts Glucose POC (test code = Glucose POC) 107 mg/dL 74-106 H POC Glucose used on critically ill patients is considered "off-label use" and has not been cleared or approved by the FDA. Alternative testing methods should be considered if the patient is critically ill. POC [id number] 12:21:41* Test Item Value Reference Range Interpretation Comme nts Glucose POC (test code = Glucose POC) 105 mg/dL 74-106 POC Glucose used on critically ill patients is considered "off-label use" and has not been cleared or approved by the FDA. Alternative testing methods should be considered if the patient is critically ill. Prothrombin Time and [id number] 11:11:55* Test Item Value Reference Range Interpretation Comme nts Prothrombin Time (test code = Prothrombin Time) 10.8 seconds 9.0-12.0 INR (test code = INR) 1.0 ratio 0.9-1.2 Partial Thromboplastin [id number] 11:11:55* Test Item Value Reference Range Interpretation Comme nts Partial Thromboplastin Time (test code = Partial Thromboplastin Time) 27.8 seconds 24.0-35.0 IG [id number] 10:58:55* Test Item Value Reference Range Interpretation Comme nts IG (test code = IG) 0 % 0-5 IG Abs (test code = IG Abs) 0 x10 N Complete Blood Count with [id number] 10:58:54* Test Item Value Reference Range Interpretation [...] Result created b y GL_SET_SLIDE_REVIEW_A UTO Automated [id number] 10:58:54* Test Item Value Reference Range Interpretation Comme nts Neutro Auto (test code = Neutro Auto) 60.9 % N Lymph Auto (test code = Lymph Auto) 27.7 % N Dorado Auto (test code = Dorado Auto) 8.5 % N Eos, Auto (test code = Eos, Auto) 1.8 % N Basophil Auto (test code = B asophil Auto) 0.9 % N Neutro Absolute (test code = Neutro Absolute) 2.7 x10 2.7-7.3 Lymph Absolute (test code = Lymph Absolute) 1.2 x10 0.8-3.5 Dorado Absolute (test code = M foster Absolute) 0.4 x10 0.3-0.9 Eos Absolute (test code = Eo s Absolute) 0.1 x10 0.0-0.3 Baso Absolute (test code = B aso Absolute) 0.0 x10 0.0-0.1 Notes Date/Time Note Provider Source 2024-11-07 10:47:47 Referral placed [facility] 2024-11-07 07:55:52 Patient has appointment with Dr. Saul today and is needing a updated referral. Mira Manley [facility] 2024-09-18 11:57:56 Images from the original note were not included. Pt.Lv 07/26/2024 Pt.Concern Requested Renewals adalimumab (HUMIRA,CF, PEN) 40 mg/0.4 mL injection Sig: inject 1 Pen under the skin every 14 (fourteen) days. Disp: 2 Pen Refills: 2 Start: 09/17/2024 Class: eRX Non-formulary For: Seropositive rheumatoid arthritis of multiple joints Last ordered: 3 months ago (05/23/2024) by Manisha Norris PA-C Last dispensed: 08/20/2024 Rx #: [id number] To be filled at: [facility] - [address], [place] Notes from Lv: Plan: - Labs reviewed from endocrinology, see above - Continue Plaquenil 400 mg daily - Continue treatment with Humira 40 mg subcu every 2 weeks - Encouraged patient to follow up with PCM for age appropriate cancer screenings and stay up to date with vaccinations including flu, pneumonia and shingles. Labs: Latest Reference Range & Units 07/26/24 14:20 WBC x10 3 4.30 - 11.10 10*3/?L 6.14 RBC x10 6 3.93 - 5.25 10*6/?L 3.92 (L) HGB 11.6 - 15.0 g/dL 12.5 HCT 35.7 - 45.2 % 37.3 MCV 80.6 - 95.5 fL 95.2 MCH 25.9 - 32.8 pg 31.9 MCHC 31.6 - 35.1 g/dL 33.5 RDW-SD 39.0 - 49.9 fL 45.2 RDW-CV 12.0 - 15.5 % 13.2 PLT x10 3 166 - 358 10*3/?L 245 MPV 9.5 - 12.9 fL 11.2 NRBC /100 WBC 0.0 - 10.0 /100 WBCs 0.0 NRBC x10 3 10*3/?L <0.01 GRAN MAT (NEUT) % % 65.8 IMM GRAN % % 0.20 LYMPH% % 24.9 MONO % % 6.7 EOS % % 1.6 BASO % % 0.8 GRAN MAT x10 3 (ANC) 1.88 - 7.09 10*3/uL 4.04 IMM GRAN x10 3 0.00 - 0.06 10*3/uL <0.03 LYMPH x10 3 1.32 - 3.29 10*3/uL 1.53 MONO x10 3 0.33 - 0.92 10*3/uL 0.41 EOS x10 3 0.03 - 0.39 10*3/uL 0.10 BASO x10 3 0.01 - 0.07 10*3/uL 0.05 SED RATE 2 - 30 mm/HR 6 NA 135 - 145 mmol/L 140 K 3.5 - 5.0 mmol/L 4.7 CL 98 - 108 mmol/L 105 CO2 TOTAL 23 - 31 mmol/L 29 AGAP 2 - 16 6 BUN 7 - 23 mg/dL 17 GLUCOSE 70 - 110 mg/dL 88 CREATININE 0.50 - 1.04 mg/dL 0.83 eGFR mL/min/1.73m2 80.3 TOTAL BILI 0.1 - 1.1 mg/dL 0.6 CALCIUM 8.6 - 10.6 mg/dL 9.5 T PROTEIN 6.3 - 8.2 g/dL 7.5 ALBUMIN 3.5 - 5.0 g/dL 4.6 ALK PHOS 34 - 122 U/L 73 ALTv 5 - 35 U/L 18 AST(SGOT) 13 - 40 U/L 24 CRP <0.8 mg/dL 0.2 (L): Data is abnormally low: Please advise,Thank you. [facility] Patrica Cabrales LVN [facility] 2024-07-26 14:45:00 Images from the original note were not included. Venipuncture collection performed by clean technique on the right anticubitus. Total of 1 attempts were made. Slight pressure and a bandage/dressing were applied to the site(s). The patient experienced no complications. The following specimens were processed according to instructions and sent to [facility] laboratories per lab order on 07/26/2024 : LT BLUE SST 2 RED LAV 1 PPT DK GREEN (LiHep) LT GREEN (LiHep) PRECIADO DK BLUE (K2) DK BLUE (S) ACD Blood Culture NIPT Urine Urine Culture [facility] 2024-05-13 10:13:31 Please review, complete, and sign if appropriate. T [facility] 2024-04-26 17:32:26 Signed [facility] 2024-04-26 13:36:37 Please review, complete, and sign if appropriate. [facility] 12/19/23-Dr. Snow NOV 08/20/24-Dr. Saldana [facility] 2024-04-23 16:00:00 Images from the original note were not included. Venipuncture collection performed by clean technique on the right anticubitus. Total of 1 attempts were made. Slight pressure and a bandage/dressing were applied to the site(s). The patient experienced no complications. The following specimens were processed according to instructions and sent to [facility] laboratories per lab order on 04/23/2024 : LT BLUE SST RED LAV PPT DK GREEN (LiHep) 1 DK GREEN (SodH) PRECIADO DK BLUE (K2) DK BLUE (S) ACD Blood Culture NIPT/NTD T [facility] 2024-02-20 16:29:41 Summary: [facility] Monthly Clinical Assessment After reviewing the results of the administered survey, it is appropriate to continue the medication as prescribed. The [facility] will refill the medication and continue to follow this patient and address any concerns that arise while on therapy with Humira. Thank you, Emilie Peres [facility]ilie [facility] 2024-02-20 11:07:13 [facility] Monthly Clinical Refill Assessment Kirill Baca is a 59 year old female who is followed by the [facility] specialty pharmacy service for Humira. Am I speaking with the patient? Yes Have you missed any doses since the last fill? No Were any of the medications discontinued? No Have any changes been made to the medication, dose, or instructions on how to take it? No Have you started taking any new medications, herbals, or supplements? No Have you been diagnosed with any new medical conditions? No Are you experiencing any acute illness such as the common cold or flu-like symptoms? No Do you have any new allergies to medications or foods? No Have you been to the emergency room, hospital, or urgent care clinic since your last refill? No Have you experienced or do you have any concerns about side effects? No Do you have any concerns or questions about taking or administering the medication as prescribed? No Do you think the medication is working for you? Yes When is the next dose needed? The next dose is needed on 02/25 Would you prefer the medication be shipped to your address? YES, the confirmed shipping address is [address] [place] [address] [facility] [address]. Do you have any specific shipping directions? No The results of this survey will be reviewed by a specialty pharmacist and the medication order will be refilled. Thank you, Monica Sanford [facility] T Monica Julio [facility] 2024-02-15 08:02:41 Gabapentin refilled per patient request [facility] [employer] 2024-02-14 15:16:44 Refill for Humira approved by PAMELA and sent to Pharmacy. Outpatient Medication Detail Disp Refills Start End BETZY adalimumab (HUMIRA,CF, PEN) 40 mg/0.4 mL injection 2 Pen 2 02/13/2024 -- No Sig: inject 1 Pen under the skin every 14 (fourteen) days. Class: eRX Route: Subcutaneous Order: [id number] Date/Time Signed: 02/13/2024 14:51 GARRET:09/29/23 NOV:04/05/24 Notes from Jr SANTIAGO dated Fibromyalgia Comment: Chronic, uncontrolled. Intolerance to Cymbalta and Savella in the past. Previously treated with Lyrica 200 mg BID with moderate effect. Now on gabapentin. Plan: - Gabapentin refill sent to pharmacy for 600 mg TID -Pended to PAMELA for review. [facility] 2024-02-13 14:19:02 Pt.Last Visit: 09/29/23 Pt. Next Visit:04/05/24 Pt. Routed a refill request: 02/13/24 02/13/24 10:19 AM Good morning . I m due for my next Humira injection. Can you send prescription to pharmacy. As well as gabapantine. Thank you. Requested Rx. adalimumab (HUMIRA,CF, PEN) 40 mg/0.4 mL injection 2 Pen 2 10/31/2023 -- No Sig: inject 1 Pen under the skin every 14 (fourteen) days. Sent to pharmacy as: Humira(CF) Pen 40 mg/0.4 mL subcutaneous kit (adalimumab) Disp Refills Start End BETZY gabapentin 600 mg tablet 270 tablet 1 09/29/2023 -- No Sig: Take 1 tablet by mouth in the morning and 1 tablet at noon and 1 tablet in the evening. Sent to pharmacy as: gabapentin 600 mg tablet (NEURONTIN) Class: eRX Route: Oral Patrica Cabrales LVN [facility] 2024-01-30 10:32:58 Refill request routed to provider for review: Requested Prescriptions Pending Prescriptions Disp Refills hydroxychloroquine (PLAQUENIL) 200 mg tablet 60 tablet 2 Sig: Take 2 tablets by mouth in the morning. Lrx 05/31/2023 #60+2 refills [facility] 09/29/2023 Plan: - Labs reviewed from previous visit, see above - Continue Plaquenil 400 mg daily - Continue treatment with Humira 40 mg subcu every 2 weeks RTC 6 months Recent Visits Date Type Provider Dept 09/29/23 Office Visit Manisha Norris PA-C [facility] 04/04/23 Office Visit Manisha Norris PA-C [facility] Future Appointments Date Type Provider Dept 09/20/24 Appointment Manisha Norris PA-C [facility] No visits with results within 6 Month(s) from this visit. Latest known visit with results is: Group Tester Visit on 04/04/2023 Component Date Value WBC 04/04/2023 6.63 RBC 04/04/2023 4.46 HGB 04/04/2023 13.6 HCT 04/04/2023 41.1 MCV 04/04/2023 92.2 MCH 04/04/2023 30.5 MCHC 04/04/2023 33.1 RDW-SD 04/04/2023 45.4 RDW-CV 04/04/2023 13.2 PLT 04/04/2023 258 MPV 04/04/2023 10.9 NRBC/100 WBC 04/04/2023 0.0 NRBC x10 3 04/04/2023 <0.01 GRAN MAT (NEUT) % 04/04/2023 64.1 IMM GRAN % 04/04/2023 0.30 LYMPH % 04/04/2023 24.1 MONO % 04/04/2023 8.0 EOS % 04/04/2023 2.9 BASO % 04/04/2023 0.6 GRAN MAT x10 3 (ANC) 04/04/2023 4.25 IMM GRAN x10 3 04/04/2023 <0.03 LYMPH x10 3 04/04/2023 1.60 MONO x10 3 04/04/2023 0.53 EOS x10 3 04/04/2023 0.19 BASO x10 3 04/04/2023 0.04 NA 04/04/2023 140 K 04/04/2023 4.6 CL 04/04/2023 103 CO2 TOTAL 04/04/2023 24 AGAP 04/04/2023 13 BUN 04/04/2023 20 GLUCOSE 04/04/2023 96 CREATININE 04/04/2023 0.80 TOTAL BILI 04/04/2023 0.4 CALCIUM 04/04/2023 9.6 T PROTEIN 04/04/2023 7.7 ALBUMIN 04/04/2023 4.7 ALK PHOS 04/04/2023 84 ALTv 04/04/2023 31 AST(SGOT) 04/04/2023 26 eGFR 04/04/2023 73.2 CRP 04/04/2023 0.3 Extra Tube 04/04/2023 Received in Lab QFT Gold Plus Result 04/04/2023 Negative ICD-10-CM 1. Seropositive rheumatoid arthritis of multiple joints M05.79 2. High risk medication use Z79.899 Please advise. Samia Esparza 01/30/2024 10:32 AM Samia Esparza [facility] 2024-01-15 09:42:58 Last Refilled: Disp Refills Start End BETZY SIMVASTATIN 80 mg tablet 90 tablet 0 10/23/2023 -- No Sig: TAKE 1 TABLET BY MOUTH AT BEDTIME Sent to pharmacy as: simvastatin 80 mg tablet (ZOCOR) Class: eRX Route: Oral Order: [id number] Date/Time Signed: 10/23/2023 08:25 E-Prescribing Status: Receipt confirmed by pharmacy (10/23/2023 8:25 AM CDT) Notes: Recent Visits Date Type Provider Dept 12/19/23 Office Visit Janel Snow MD [facility] 06/14/23 Office Visit Janel Snow MD [facility] 12/08/22 Office Visit Janel Snow MD [facility] 10/13/22 Office Visit Jeane Rasmussen PA [facility] Showing recent visits within past 540 days with a meds authorizing provider and meeting all other requirements Future Appointments Date Type Provider Dept 06/06/24 Appointment Janel Snow MD [facility] Showing future appointments within next 150 days with a meds authorizing provider and meeting all other requirements Group Tester Visit on 04/04/2023 Component Date Value WBC 04/04/2023 6.63 RBC 04/04/2023 4.46 HGB 04/04/2023 13.6 HCT 04/04/2023 41.1 MCV 04/04/2023 92.2 MCH 04/04/2023 30.5 MCHC 04/04/2023 33.1 RDW-SD 04/04/2023 45.4 RDW-CV 04/04/2023 13.2 PLT 04/04/2023 258 MPV 04/04/2023 10.9 NRBC/100 WBC 04/04/2023 0.0 NRBC x10 3 04/04/2023 <0.01 GRAN MAT (NEUT) % 04/04/2023 64.1 IMM GRAN % 04/04/2023 0.30 LYMPH % 04/04/2023 24.1 MONO % 04/04/2023 8.0 EOS % 04/04/2023 2.9 BASO % 04/04/2023 0.6 GRAN MAT x10 3 (ANC) 04/04/2023 4.25 IMM GRAN x10 3 04/04/2023 <0.03 LYMPH x10 3 04/04/2023 1.60 MONO x10 3 04/04/2023 0.53 EOS x10 3 04/04/2023 0.19 BASO x10 3 04/04/2023 0.04 NA 04/04/2023 140 K 04/04/2023 4.6 CL 04/04/2023 103 CO2 TOTAL 04/04/2023 24 AGAP 04/04/2023 13 BUN 04/04/2023 20 GLUCOSE 04/04/2023 96 CREATININE 04/04/2023 0.80 TOTAL BILI 04/04/2023 0.4 CALCIUM 04/04/2023 9.6 T PROTEIN 04/04/2023 7.7 ALBUMIN 04/04/2023 4.7 ALK PHOS 04/04/2023 84 ALTv 04/04/2023 31 AST(SGOT) 04/04/2023 26 eGFR 04/04/2023 73.2 CRP 04/04/2023 0.3 Extra Tube 04/04/2023 Received in Lab QFT Gold Plus Result 04/04/2023 Negative [facility] Torres RN [facility] [facility] 2024-01-12 11:08:03 Hi, Dr Saul will do the xrays during her visit Janel Snow MD [facility] 2024-01-03 12:53:43 GARRET:09/29/23 NOV: 04/05/24 Pt seen in clinic by PCP 12/19/23 Notes from MD Gwendolyn dated 12-19-23 One time no refill rx hydrocodone Pain management consult for chronic pain issues -Referral to Pain Management placed by PCP Mariela Wilkerson LVN [facility] 2023-12-25 12:16:59 [facility] Monthly Clinical Refill Assessment Kirill Baca is a 58 year old female who is followed by the [facility] specialty pharmacy service for [facility]. Am I speaking with the patient? Yes Have you missed any doses since the last fill? No Were any of the medications discontinued? Yes, minoxidil- discontinued because she said she was growing unwanted hair on her face. Have any changes been made to the medication, dose, or instructions on how to take it? No Have you started taking any new medications, herbals, or supplements? No Have you been diagnosed with any new medical conditions? No Are you experiencing any acute illness such as the common cold or flu-like symptoms? No Do you have any new allergies to medications or foods? YES, the patient is allergic to tylenol 3- itchy on face & arms , pt no longer taking, added to allergy list. Have you been to the emergency room, hospital, or urgent care clinic since your last refill? No Have you experienced or do you have any concerns about side effects? No Do you have any concerns or questions about taking or administering the medication as prescribed? No Do you think the medication is working for you? Yes When is the next dose needed? The next dose is needed on Monday01/01/24 Would you prefer the medication be shipped to your address? YES, the confirmed shipping address is [address] [place] [address] [address], [facility] [address]. Do you have any specific shipping directions? No The results of this survey will be reviewed by a specialty pharmacist and the medication order will be refilled. Thank you, Leydi Vivar [facility] 2023-11-29 17:53:42 Summary: [facility] Monthly Clinical Assessment After reviewing the results of the administered survey, it is appropriate to continue the medication as prescribed. The [facility] will refill the medication and continue to follow this patient and address any concerns that arise while on therapy with Humira. Thank you, Emilie Peres [facility] Emilie Peres [facility] 2023-11-29 10:10:21 [facility] Therapy Plan Kirill Baca is a 58 year old y/o /White female patient referred to the [facility] for management of Humira and appropriateness of therapy which is being used to treat the diagnosis of Rheumatoid Arthritis. Kirill Baca is Experienced to therapy . The stage of Kirill Baca active disease is controlled. No complaints. Goals of therapy based on therapy plan: Reduce joint pain, inflammation and damage, Low disease activity or remission, and Minimize/manage adverse events Patient self-reported goals of therapy: Reduce joint pain, inflammation and damage, Low disease activity or remission, and Minimize/manage adverse events Based on current therapy, patient progress towards established goals include: Goals being met The current specialty medication regimen is: Humira 40mg subq every other week. Refill to be delivered today. Next dose due on Monday. Denies side efffects including PARNELL, GI upset, infections, SOB/edema. Concurrent Rheumatology medications: HCQ 400mg po daily - says she saw outside Eye doctor ~2 weeks ago with no issues. Previously trialed medications: MTX Inj - ineffective Orencia ? Xeljanz - ? While speaking with the patient, the Specialty Pharmacist has reviewed and updated the: medication list and allergy list Patient's most recent discharge from a hospital admission related to their specialty condition: The patient has not had a recent hospitalization related to their specialty condition. The [facility] Specialty Pharmacist has reviewed: The H&P, treatment recommendations, and all provider encounters relevant to the management of Rheumatoid Arthritis. Comorbid conditions: No contraindication to therapy Risk factors identified related to specialty medication therapy and condition: None identified Pertinent labs reviewed: CBC with differential, Complete metabolic panel, Hepatitis B screening, Hepatitis C screening, Liver function tests (LFTs), and Tuberculosis (TB) screening Drug-Drug Interactions: There are no significant drug-drug interactions -Weight: Wt Readings from Last 1 Encounters: 09/29/23 85.5 kg (188 lb 6.4 oz) Lab Results Component Value Date/Time BUN 20 04/04/2023 02:21 PM CREAT 0.80 04/04/2023 02:21 PM EGFR 73.2 04/04/2023 02:21 PM Lab Results Component Value Date/Time AST 26 04/04/2023 02:21 PM ALT 31 04/04/2023 02:21 PM BILIT 0.4 04/04/2023 02:21 PM BILIUNCON 0.3 06/09/2021 10:29 AM ALKPHOS 84 04/04/2023 02:21 PM Lab Results Component Value Date/Time WBC 6.63 04/04/2023 02:21 PM HGB 13.6 04/04/2023 02:21 PM PLT 258 04/04/2023 02:21 PM QFT Gold Plus Result (no units) Date Value 04/04/2023 Negative HBsAg (no units) Date Value 06/09/2021 Negative HBsAg Semi-Quantitative (no units) Date Value 06/09/2021 0.08 HBCM (no units) Date Value 06/09/2021 Negative HCV Ab (no units) Date Value 06/09/2021 Negative HCV Semi-Quantitative (no units) Date Value 06/09/2021 0.01 No results found for: "HIV" After review, the prescribed medication is clinically appropriate. -Immunizations: Immunization History Administered Date(s) Administered DT/Tetanus 01/29/2014 Influenza Virus Vaccine 04/22/2021 Influenza Virus Vaccine - Whole 04/29/2021 Influenza Virus Vaccine Quad IM, Preserv and ABX Free 6 MO-64 YRS (FLUCELVAX) 04/08/2022, 06/14/2023 Pneumococcal 20 Conjugate, PCV20 (Prevnar 20) 11/24/2021 SARS-COV-2 COVID-19 MODERNA 12+ YRS VACCINE 10/08/2020, 11/05/2020, 05/11/2021 SARS-COV-2 COVID-19 VACCINE 12 YRS+, BIVALENT 0.5ML, IM, (MODERNA-BLUE TOP) 04/08/2022 Zoster Vaccine Recombinant 10/29/2018, 12/28/2018 Vaccination history was reviewed. The patient was reminded about the importance of receiving an annual influenza vaccine as indicated. Home Delivery Process: If the patient chooses to have the medications delivered home, someone needs to be at home to receive the packaged medication. The medication can only sit in the ice box for 6 to 8 hours, and then it needs to be refrigerated. [address] [facility] [address] -Follow-up: Provided patient with PharmD contact information to call if they have any questions. Future Appointments Provider Department Dept Phone 04/05/2024 1:15 PM Manisha Norris PA-C [facility] Rheumatology, PCP Mehrdad [phone] TB labs due March 2024. A comprehensive Welcome Packet is accessible to all patients via the [facility]'s website. For patients who may not have internet access, a printed copy is included with their medication shipment or provided during medication pick-up. Thank you, Franko Rosado [facility] Franko Rosado [facility] 2023-11-27 14:01:52 [facility] Monthly Clinical Refill Assessment Kirill Baca is a 58 year old female who is followed by the [facility] specialty pharmacy service for [facility]. Am I speaking with the patient? Yes Have you missed any doses since the last fill? No Were any of the medications discontinued? No Have any changes been made to the medication, dose, or instructions on how to take it? No Have you started taking any new medications, herbals, or supplements? No Have you been diagnosed with any new medical conditions? No Are you experiencing any acute illness such as the common cold or flu-like symptoms? No Do you have any new allergies to medications or foods? No Have you been to the emergency room, hospital, or urgent care clinic since your last refill? No Have you experienced or do you have any concerns about side effects? No Do you have any concerns or questions about taking or administering the medication as prescribed? No Do you think the medication is working for you? Yes When is the next dose needed? The next dose is needed on 12/04 Would you prefer the medication be shipped to your address? YES, the confirmed shipping address is Ariana Cob[address] [place], [place] [id number]. Do you have any specific shipping directions? No The results of this survey will be reviewed by a specialty pharmacist and the medication order will be refilled. Thank you, Monica Sanford [facility] Monica Sanford [facility] 2023-11-03 16:00:10 Summary: [facility] Monthly Clinical Assessment After reviewing the results of the administered survey, it is appropriate to continue the medication as prescribed. The [facility] will refill the medication and continue to follow this patient and address any concerns that arise while on therapy with Humira. Thank you, Emilie Peres [facility] Emilie Peres [facility] 2023-11-02 11:29:33 [facility] Monthly Clinical Refill Assessment Kirill Baca is a 58 year old female who is followed by the [facility] specialty pharmacy service for Humira. Am I speaking with the patient? Yes Have you missed any doses since the last fill? No Were any of the medications discontinued? No Have any changes been made to the medication, dose, or instructions on how to take it? No Have you started taking any new medications, herbals, or supplements? No Have you been diagnosed with any new medical conditions? No Are you experiencing any acute illness such as the common cold or flu-like symptoms? No Do you have any new allergies to medications or foods? No Have you been to the emergency room, hospital, or urgent care clinic since your last refill? No Have you experienced or do you have any concerns about side effects? No Do you have any concerns or questions about taking or administering the medication as prescribed? No Do you think the medication is working for you? Yes When is the next dose needed? The next dose is needed on OVERDUE Would you prefer the medication be shipped to your address? YES, the confirmed shipping address is [address] [facility] [address]. Do you have any specific shipping directions? No The results of this survey will be reviewed by a specialty pharmacist and the medication order will be refilled. Thank you, Monica Sanford [facility] Monica Sanford [facility] - [facility] 2023-10-31 09:52:56 Refill request routed to provider for review: Requested Prescriptions Pending Prescriptions Disp Refills adalimumab (HUMIRA,CF, PEN) 40 mg/0.4 mL injection 2 Pen 2 Sig: inject 1 Pen under the skin every 14 (fourteen) days. Lrx 07/07/2023 #2 pen + 2refills GARRET 09/29/2023 Plan: - Labs reviewed from previous visit, see above - Continue Plaquenil 400 mg daily - Continue treatment with Humira 40 mg subcu every 2 weeks - Encouraged patient to follow up with PCM for age appropriate cancer screenings and stay up to date with vaccinations including flu, pneumonia and shingles. RTC 6 months Recent Visits Date Type Provider Dept 09/29/23 Office Visit Manisha Norris PA-C [facility] 04/04/23 Office Visit Manisha Norris PA-C [facility] 12/20/22 Office Visit Manisha Norris PA-C [facility]Pcp Future Appointments Date Type Provider Dept 04/05/24 Appointment Manisha Norris PA-C [facility]-Pcp No visits with results within 6 Month(s) from this visit. Latest known visit with results is: Group Tester Visit on 04/04/2023 Component Date Value WBC 04/04/2023 6.63 RBC 04/04/2023 4.46 HGB 04/04/2023 13.6 HCT 04/04/2023 41.1 MCV 04/04/2023 92.2 MCH 04/04/2023 30.5 MCHC 04/04/2023 33.1 RDW-SD 04/04/2023 45.4 RDW-CV 04/04/2023 13.2 PLT 04/04/2023 258 MPV 04/04/2023 10.9 NRBC/100 WBC 04/04/2023 0.0 NRBC x10 3 04/04/2023 <0.01 GRAN MAT (NEUT) % 04/04/2023 64.1 IMM GRAN % 04/04/2023 0.30 LYMPH % 04/04/2023 24.1 MONO % 04/04/2023 8.0 EOS % 04/04/2023 2.9 BASO % 04/04/2023 0.6 GRAN MAT x10 3 (ANC) 04/04/2023 4.25 IMM GRAN x10 3 04/04/2023 <0.03 LYMPH x10 3 04/04/2023 1.60 MONO x10 3 04/04/2023 0.53 EOS x10 3 04/04/2023 0.19 BASO x10 3 04/04/2023 0.04 NA 04/04/2023 140 K 04/04/2023 4.6 CL 04/04/2023 103 CO2 TOTAL 04/04/2023 24 AGAP 04/04/2023 13 BUN 04/04/2023 20 GLUCOSE 04/04/2023 96 CREATININE 04/04/2023 0.80 TOTAL BILI 04/04/2023 0.4 CALCIUM 04/04/2023 9.6 T PROTEIN 04/04/2023 7.7 ALBUMIN 04/04/2023 4.7 ALK PHOS 04/04/2023 84 ALTv 04/04/2023 31 AST(SGOT) 04/04/2023 26 eGFR 04/04/2023 73.2 CRP 04/04/2023 0.3 Extra Tube 04/04/2023 Received in Lab QFT Gold Plus Result 04/04/2023 Negative ICD-10-CM 1. Seropositive rheumatoid arthritis of multiple joints M05.79 Please advise. Samia Esparza 10/31/2023 9:52 AM Samia Esparza [facility] 2023-09-26 09:32:58 Please review and sign if appropriate [facility] 2023-09-26 09:27:32 Pt requesting appt with BARBARA Harper on Monday. Fibromyalgia Once referral is placed, PSS can assist with getting authorization. Na Cardenas [facility] 2023-09-26 08:53:49 Patient has a Rheumatology Appointment Thursday 09/28 and is needing an Authorized referral per her Insurance. Akiko Mahmood [facility] 2023-09-22 17:13:41 Routed to PAMELA for advisory. [employer] Mariela Wilkerson LVN [facility] 2023-08-29 15:09:51 Summary: [facility] Monthly Clinical Assessment I spoke to patient, patient reported having test positive for Covid last month, had phlegm and body aches, had to miss a dose of Humira. Patient reported that she is no longer experiencing any Covid or flu like symptoms. After reviewing the results of the administered survey, it is appropriate to continue the medication as prescribed. The [facility] will refill the medication and continue to follow this patient and address any concerns that arise while on therapy with Humira. Thank you, Emilie Peres [facility] [employer] Emilie Peres [facility] 2023-08-29 10:55:10 [facility] Monthly Clinical Refill Assessment Kirill Baca is a 58 year old female who is followed by the [facility] specialty pharmacy service for [place]. Am I speaking with the patient? Yes Have you missed any doses since the last fill? YES, the patient missed 1 doses because she had covid after her last refill. Were any of the medications discontinued? No Have any changes been made to the medication, dose, or instructions on how to take it? No Have you started taking any new medications, herbals, or supplements? No Have you been diagnosed with any new medical conditions? No Are you experiencing any acute illness such as the common cold or flu-like symptoms? No Do you have any new allergies to medications or foods? No Have you been to the emergency room, hospital, or urgent care clinic since your last refill? No Have you experienced or do you have any concerns about side effects? No Do you have any concerns or questions about taking or administering the medication as prescribed? No When is the next dose needed? The next dose is needed on 09/08/2023 Would you prefer the medication be shipped to your address? YES, the confirmed shipping address is [address] [place] [address] [place] [address]. Do you have any specific shipping directions? No The results of this survey will be reviewed by a specialty pharmacist and the medication order will be refilled. Thank you, Monica Sanford [facility] Monica Sanford [facility] 2023-08-07 11:55:49 For your review: Patient provided with update, stated is feeling better at this time, and nebulizer is no longer needed. [facility] 2023-08-03 16:16:04 Try SOB R 06.02 Janel Snow MD [facility] 2023-08-03 10:10:24 Please advise with additional DX code for DME coverage as the following are not sufficient: G47.33Obstructive sleep apnea (adult) (pediatric) R06.2Wheezing J20.9Acute bronchitis, unspecified [facility] 2023-08-03 08:26:15 Please assist with DME to [facility] Janel Snow MD [facility] 2023-08-01 10:38:54 I've sent rx for neb machine and albuterol to [facility], not sure where it will be more affordable It may help to send neb machine through DME- nurse please assist . Janel Snow MD [facility] 2023-07-07 10:20:26 Prescription for Humira sent to pharmacy. [facility] Mariela Wilkerson [facility] 2023-07-07 10:15:24 Labs reviewed from 04/04/23 GARRET:04/04/23 NOV:10/05/22 Prescription sent to pharmacy. [facility] Mariela Wilkerson [employer] [facility] 2023-07-07 09:55:47 Notes from PAMELA Norris dated 05/25/23 Advise patient she can try increasing her gabapentin to 2 pills (600 mg) three times a day. NOV: 10/06/23 [facility] 2023-07-07 08:50:38 Refill request routed to provider for review: Requested Prescriptions Pending Prescriptions Disp Refills adalimumab (HUMIRA,CF, PEN) 40 mg/0.4 mL injection 2 Pen 2 Sig: inject 1 Pen under the skin every 14 (fourteen) days. There is no refill protocol information for this order Lrx 03/23/2023 #2pen +2 refills Recent Visits Date Type Provider Dept 04/04/23 Office Visit Manisha Norris PA-C [facility]-Pcp 12/20/22 Office Visit Manisha Norris PA-C [facility]Pcp 10/07/22 Office Visit Manisha Norris PA-C [facility]Pcp Future Appointments Date Type Provider Dept 10/06/23 Appointment Manisha Norris PA-C [facility]-Pcp Group Tester Visit on 04/04/2023 Component Date Value WBC 04/04/2023 6.63 RBC 04/04/2023 4.46 HGB 04/04/2023 13.6 HCT 04/04/2023 41.1 MCV 04/04/2023 92.2 MCH 04/04/2023 30.5 MCHC 04/04/2023 33.1 RDW-SD 04/04/2023 45.4 RDW-CV 04/04/2023 13.2 PLT 04/04/2023 258 MPV 04/04/2023 10.9 NRBC/100 WBC 04/04/2023 0.0 NRBC x10 3 04/04/2023 <0.01 GRAN MAT (NEUT) % 04/04/2023 64.1 IMM GRAN % 04/04/2023 0.30 LYMPH % 04/04/2023 24.1 MONO % 04/04/2023 8.0 EOS % 04/04/2023 2.9 BASO % 04/04/2023 0.6 GRAN MAT x10 3 (ANC) 04/04/2023 4.25 IMM GRAN x10 3 04/04/2023 <0.03 LYMPH x10 3 04/04/2023 1.60 MONO x10 3 04/04/2023 0.53 EOS x10 3 04/04/2023 0.19 BASO x10 3 04/04/2023 0.04 NA 04/04/2023 140 K 04/04/2023 4.6 CL 04/04/2023 103 CO2 TOTAL 04/04/2023 24 AGAP 04/04/2023 13 BUN 04/04/2023 20 GLUCOSE 04/04/2023 96 CREATININE 04/04/2023 0.80 TOTAL BILI 04/04/2023 0.4 CALCIUM 04/04/2023 9.6 T PROTEIN 04/04/2023 7.7 ALBUMIN 04/04/2023 4.7 ALK PHOS 04/04/2023 84 ALTv 04/04/2023 31 AST(SGOT) 04/04/2023 26 eGFR 04/04/2023 73.2 CRP 04/04/2023 0.3 Extra Tube 04/04/2023 Received in Lab QFT Gold Plus Result 04/04/2023 Negative ICD-10-CM 1. Seropositive rheumatoid arthritis of multiple joints M05.79 Please advise. Samia Esparza 07/07/2023 8:50 AM [employer] Samia Esparza [facility] 2023-05-03 17:07:31 See notes dated 05/02/23 from another encounter. Awaiting eye exam and results. Pt. Has an appointment on 05/11/[address] Dumont (outside facility. Pt. Was advised to send results after exam.) -Pt. Verbalized understanding. Mariela Wilkerson LVN [facility] 2023-04-04 14:15:00 Formatting of this n ote is different from the original. Images from the original note were not included. Venipuncture collection performed by clean technique on the right anticubitus. Total of 1 attempts were made. Slight pressure and a bandage/dressing were applied to the site(s). The patient experienced no complications. The following specimens were processed according to instructions and sent to [facility] laboratories per lab order on 04/04/2023 : LT BLUE SST 2 RED LAV 1 PPT DK GREEN (LiHep) 1 DK GREEN (SodH) PRECIADO DK BLUE (K2) DK BLUE (S) ACD Blood Culture NIPT/NTD [facility] 2023-03-23 14:07:44 Formatting of this n ote is different from the original. QFT 06/09/21 Negative Placed orders for QFT NOV 04/04/23 Labs Refill request routed to provider for review: Requested Prescriptions Pending Prescriptions Disp Refills adalimumab (HUMIRA,CF, PEN) 40 mg/0.4 mL injection 1 Kit 2 Sig: inject 1 Pen under the skin every 14 (fourteen) days. There is no refill protocol information for this order Recent Visits Date Type Provider Dept 12/20/22 Office Visit Manisha Norris PA-C Adult [facility]-Pcp 10/07/22 Office Visit Manisha Norris PA-C [facility]Pcp 04/08/22 Office Visit Manisha Norris PA-C [facility]-Pcp Showing recent visits within past 365 days and meeting all other requirements Future Appointments Date Type Provider Dept 04/04/23 Appointment Manisha Norris PA-C Adult [facility]-Pcp Showing future appointments within next 365 days and meeting all other requirements Group Tester Visit on 12/08/2022 Component Date Value TSH 12/08/2022 3.47 HGB A1C 12/08/2022 5.6 CREAT U 12/08/2022 257.6 MICROALB U 12/08/2022 16 MICROAL/CR 12/08/2022 6 Office Visit on 10/13/2022 Component Date Value SARS-CoV-2 NAAT 10/13/2022 Not Detected POCT Molecular Strep 10/13/2022 Negative POCT Molecular FluA 10/13/2022 Negative POCT Molecular FluB 10/13/2022 Negative COVID DMT Interpretation 10/13/2022 Value:Interpretation/Recommen dations: Molecular NAAT Tests for Active Infection with the SARS-CoV-2 Virus: The patient has currently tested negative for the [...] IgM and/or IgG Antibodies to the SARS-CoV-2 Virus: Testing for IgM and IgG antibodies approximately 3 [...] been previously vaccinated and/or infected. Interpretation Result Comments: These interpretation comments are based upon the following COVID-19 tests the patient has had at [facility]: molecular nucleic acid amplification tests (NAAT) (specifically PCR testing and Rapid ID Now testing) and antibody tests. It does not take into account antigen testing or any additional testing that a patient may have had outside of the [facility] medical record. COVID Results 10/13/2022 Value:SARS-CoV-2 NAAT (no units) Date Value 10/13/2022 Not Detected SARS-CoV-2 Rapid ID NOW (no units) Date Value 01/28/2022 Not Detected 04/05/2021 Not Detected 03/02/2021 Not Detected Group Tester Visit on 10/07/2022 Component Date Value WBC [...] rheumatoid arthritis of multiple joints M05.79 Please advise. Selena Pollard RN 03/23/2023 2:23 PM Selena Pollard RN [facility] 2023-03-23 09:01:26 Formatting of this n ote might be different from the original. NOV 04/04/23 T [facility] 2023-03-21 14:27:27 Formatting of this n ote might be different from the original. Previous referral placed on 12/30 is closed. Please review and sign if appropriate T [facility] 2023-03-21 11:11:54 Formatting of this n ote might be different from the original. Kirill Baca is a 57 year old female Minnie called from Endocrinology, states did not receive faxed referral from 03/24/23 Please refax to [phone] Dx: E11.69, E03.9 Shanti Marie [facility] 2022-04-28 15:54:33 We have not seen her for over a month we cannot prescribe narcotics [facility] [facility]
[2024-11-18 13:39] LABS: SARS-CoV-2 Antigen Rapid Res Negative (Negative)
--- NOTE | 2024-11-18 13:40 | ER ---
Nurse's Notes [facility] Name: Lashon Baca Age: 59 yrs Sex: Female : 1965 Arrival Date: 11/18/2024 Time: 11:54 Bed IW5 Private MD: Diagnosis: Acute upper respiratory infection, unspecified Presentation: 11/18 12:59 Chief complaint: Patient states: she was near someone who has COVID and she has now ap3 been coughing and is having body aches since Monday11/15/24. Coronavirus screen: Client presents with at least one sign or symptom that may indicate coronavirus-19. Ebola Screen: No symptoms or risks identified at this time. Initial Sepsis Screen: Does the patient meet any 2 criteria? No. Patient's initial sepsis screen is negative. Does the patient have a suspected source of infection? No. Patient's initial sepsis screen is negative. Risk Assessment: Do you want to hurt yourself or someone else? Patient reports no desire to harm self or others. Onset of symptoms was November 15, 2024. 12:59 Method Of Arrival: Ambulatory ap3 12:59 Acuity: KENNETH 4 ap3 Triage Assessment: 13:01 General: Appears in no apparent distress. Behavior is calm, cooperative, appropriate ap3 for age. Pain: Complains of pain in generalized body aches. Neuro: Level of Consciousness is awake, alert, obeys commands, Oriented to person, place, time, situation, Appropriate for age. Cardiovascular: Patient's skin is warm and dry. Respiratory: Reports cough that is Airway is patent Respiratory effort is even, unlabored, Respiratory pattern is regular, symmetrical. Historical: - Allergies: 13:00 Codeine; ap3 13:00 Cymbalta (rash); ap3 13:00 Savella (rash); ap3 13:00 tramadol (Itching); ap3 - PMHx: 13:00 Bipolar disorder; Diabetes - NIDDM; Diabetes Mellitus Type 2; Fibromyalgia; Silas's ap3 disease; Kidney stone; Rheumatoid Arthritis; Sleep Apnea; - PSHx: 13:00 section; Cholecystectomy; hysterectomy; L knee; L side of thyroid removed ap3 (Cancerous lumps); R hip replacement; - Immunization history:: Client reports receiving the 2nd dose of the Covid vaccine, Flu vaccine is up to date. - Infectious Disease History:: Denies. - Social history:: Smoking status: Reported history of juuling and/or vaping. Screenin:01 [facility] ED Fall Risk Assessment (Adult) History of falling in the last 3 months, ap3 including since admission No falls in past 3 months (0 pts) Confusion or Disorientation No (0 pts) Intoxicated or Sedated No (0 pts) Impaired Gait No (0 pts) Mobility Assist Device Used No (0 pt) Altered Elimination No (0 pt) Score/Fall Risk Level 0 - 2 = Low Risk Oriented to surroundings, Maintained a safe environment, Educated pt \T\ family on fall prevention, incl call for assistance when getting out of bed, Assessed \T\ reinforced patient's understanding of fall precautions, Hourly rounding (assess needs \T\ fall precautionary measures) done, Used ambulatory aids as needed (educated on \T\ assisted with). Abuse screen: Denies threats or abuse. Nutritional screening: No deficits noted. Tuberculosis screening: No symptoms or risk factors identified. Vital Signs: 12:59 BP 125 / 78; Pulse 81; Resp 17; Temp 98.5; Pulse Ox 100% ; Weight 75.75 kg; Height 5 ap3 ft. 5 in. ; 12:59 Body Mass Index 27.79 (75.75 kg, 165.1 cm) ap3 ED Course: 11:58 Patient arrived in ED. im 12:09 Nataly Alonso PA-C is PHCP. sb4 12:09 Rom Warner MD is Attending Physician. sb4 13:00 Triage completed. ap3 13:01 Arm band placed on right wrist. ap3 13:04 SARS RAPID Sent. ap3 14:00 Patient has correct armband on for positive identification. Provided Education on: ap3 discharge instructions. 14:00 No provider procedures requiring assistance completed. Patient did not have IV access ap3 during this emergency room visit. Administered Medications: No medications were administered Medication: 14:00 VIS not applicable for this client. ap3 Outcome: 13:40 Discharge ordered by . sb4 14:00 Discharged to home ambulatory, ap3 14:00 Condition: good 14:00 Discharge instructions given to patient, Instructed on discharge instructions, follow up and referral plans. Demonstrated understanding of instructions, follow-up care, 14:01 Patient left the ED. ap3 Signatures: Prokisch, Quyen, ETELVINA RN ap3 Nataly Alonso PA-C PAKate sb4 Rosalinda Moreno
--- NOTE | 2024-11-18 13:41 | EDPHYS ---
Physician Documentation [facility] Name: Lashon Baca Age: 59 yrs Sex: Female : 1965 Arrival Date: 11/18/2024 Time: 11:54 Bed IW5 Private MD: ED Physician Rom Warner HPI: 11/18 13:00 This 59 yrs old Female presents to ER via Unassigned with complaints of COVID sb4 test. 13:00 Was exposed to someone with COVID 3 days ago. Has started experiencing cough, sore sb4 throat, body aches. No chest pain or shortness of breath. Is requesting test for COVID. Historical: - Allergies: 13:00 Codeine; ap3 13:00 Cymbalta (rash); ap3 13:00 Savella (rash); ap3 13:00 tramadol (Itching); ap3 - PMHx: 13:00 Bipolar disorder; Diabetes - NIDDM; Diabetes Mellitus Type 2; Fibromyalgia; Silas's ap3 disease; Kidney stone; Rheumatoid Arthritis; Sleep Apnea; - PSHx: 13:00 section; Cholecystectomy; hysterectomy; L knee; L side of thyroid removed ap3 (Cancerous lumps); R hip replacement; - Immunization history:: Client reports receiving the 2nd dose of the Covid vaccine, Flu vaccine is up to date. - Infectious Disease History:: Denies. - Social history:: Smoking status: Reported history of juuling and/or vaping. ROS: 13:00 Cardiovascular: Negative for chest pain, palpitations, and edema, sb4 13:00 Constitutional: Positive for body aches, fatigue, malaise, 13:00 Respiratory: Positive for cough, 13:00 All other systems are negative, Exam: 13:00 Constitutional: This is a well developed, well nourished patient who is awake, alert, sb4 and in no acute distress. Head/Face: Normocephalic, atraumatic. Eyes: Extra-ocular motions intact. Periorbital areas with no swelling, redness, or edema. ENT: Mucous membranes moist. Cardiovascular: Regular rate and rhythm with a normal S1 and S2. Respiratory: No increased work of breathing, no retractions or nasal flaring. Abdomen/GI: Soft, non-tender, no distension. Skin: Warm, dry with normal turgor. Normal color with no rashes, no lesions, and no evidence of cellulitis. 13:00 Respiratory: Breath sounds: are clear throughout, Vital Signs: 12:59 BP 125 / 78; Pulse 81; Resp 17; Temp 98.5; Pulse Ox 100% ; Weight 75.75 kg; Height 5 ap3 ft. 5 in. ; 12:59 Body Mass Index 27.79 (75.75 kg, 165.1 cm) ap3 MDM: 12:53 Medical Screening Exam initiated sb4 13:40 Data reviewed: vital signs, nurses notes, lab test result(s), and as a result, I will sb4 discharge patient. Counseling: I had a detailed discussion with the patient and/or guardian regarding the historical points, exam findings, and any diagnostic results supporting the discharge/admit diagnosis, lab results, the need for outpatient follow up, for definitive care, to return to the emergency department if symptoms worsen or persist or if there are any questions or concerns that arise at home. 05 12:59 Order name: SARS RAPID; Complete Time: 13:40 sb4 Administered Medications: No medications were administered Disposition: 17:09 Co-signature as Attending Physician, Rom Warner MD. [email or web address] Disposition Summary: 11/18/24 13:40 Discharge Ordered Notes: Location: Home sb4 Problem: new sb4 Symptoms: are unchanged sb4 Condition: Stable sb4 Diagnosis - Acute upper respiratory infection, unspecified sb4 Followup: sb4 - With: Emergency Department - When: As needed - Reason: Trouble breathing, Worsening of condition Discharge Instructions: - Discharge Summary Sheet sb4 - Upper Respiratory Infection, Adult, [id number] sb4 - Viral Respiratory Infection, [id number] sb4 Forms: - Patient Portal Instructions sb4 - Leadership Thank You Letter sb4 Signatures: Dispatcher [employer] Quyen Leal RN RN mat3 Nataly Alonso PA-C PAKate sb4 Rom Warner MD MD [email or web address] Corrections: (The following items were deleted from the chart) 13:00 13:00 SARS-COV-2 Antigen Rapid+I.LAB.BRZ ordered. EDMS EDMS
[2024-11-18 14:35] VITALS: BP 125/78; TEMP 98.5; O2SAT 100
== END 2024-11-18 14:01 | disposition home or self-care (01) ==
LOC: ER 11:54
DX: J06.9 Acute upper respiratory infection, unspecified (principal); Z11.52 Encounter for screening for COVID-19
CPT/HCPCS: 36415; 87426; 99283